=== PATIENT | female | born 1980 | race Caucasian/White ===

== ENCOUNTER 2016-11-10 16:55 | Inpatient (IN) | payer OTHER ==
[2016-11-10] MEDS ORDERED: Ondansetron INJ* 2 MG/ML VIAL IV ONE (17:50)
[2016-11-10] MEDS ORDERED: Morphine INJ* 4 MG/ML 1 ML SYRINGE IV ONE ×2 (17:50→17:53)
[2016-11-10] MEDS ORDERED: Ondansetron INJ* 2 MG/ML VIAL ONE (17:56)
[2016-11-10] MEDS ORDERED: Morphine INJ* 4 MG/ML 1 ML SYRINGE ONE (17:56)
[2016-11-10 18:00] LABS: Hematocrit 52 % (35-47); Hemoglobin 17.4 g/dl (12.0-16.0); Mean Corpuscular HGB Conc 33 g/dl (31-36); Mean Corpuscular Hemoglobin 31 pg (27-31); Mean Corpuscular Volume 93 fL (80-97); Mean Platelet Volume 9 um3 (7.4-10.4); Red Blood Count 5.67 10^6/ul (4.0-5.4); Red Cell Distribution Width 16 % (10.5-15); White Blood Count 16.5 10^3/ul (3.5-10.8)
[2016-11-10] MEDS ORDERED: LORazepam INJ* 2 MG/ML 1 ML VIAL IV PUSH ONE (18:08)
[2016-11-10] MEDS: NS 0.9% 1000 ML* 2,000 ML IV ONE ×2 (18:14→20:08)
[2016-11-10] MEDS ORDERED: HYDROmorphone* 1 MG/ML 1 ML SYR IV SLOW PU ONE ×4 (18:27→20:11)
--- NOTE | 2016-11-10 18:51 | ED ---
Timi Kirkland Benjamin, scribed for Delgado Farr MD on 11/10/16 at 1801 . Abdominal Pain/Female - HPI Summary HPI Summary: 36yo female c/o sudden onset of severe diffuse abdominal pain that started about 1200 today. Pt cannot clearly localize the pain, but pt states there is more pain in the left side than the right. Pain also radiates around into back, and pt has vomited earlier. Pain is aggravated with walking, raising legs, sitting up, and hitting road bumps on the road. Pt gets her MP every 3 months, and her last MP was 2 months ago. Pt is shaking due to pain. Pt is a heavy drinker and a heavy smoker. - History of Current Complaint Chief Complaint: EDAbdPain Stated Complaint: ABD PAIN Time Seen by Provider: 11/10/16 17:40 Hx Obtained From: Patient Hx Last Menstrual Period: 2 months ago Onset/Duration: Sudden Onset, Lasting Hours - couple of hours, Still Present Timing: Constant Severity Initially: Severe Severity Currently: Severe Pain Intensity: 10 Pain Scale Used: 0-10 Numeric Location: Diffuse Radiates: Yes Radiates to: Back Aggravating Factor(s): Movement, Other: - road bumps Alleviating Factor(s): Nothing Associated Signs and Symptoms: Positive: Back Pain, Nausea, Vomiting Allergies/Adverse Reactions: Allergies Allergy/AdvReac Type Severity Reaction Status Date / Time Cephalexin [From Keflex] Allergy Palpitation Verified 03/13/16 19:47 s Ciprofloxacin [From Cipro] Allergy Difficulty Verified 03/13/16 19:47 Breathing/Wheezing Codeine Allergy Hives Verified 03/13/16 19:47 Azithromycin AdvReac Vomiting Verified 03/13/16 19:47 PMH/Surg Hx/FS Hx/Imm Hx Respiratory History: Reports: Other Respiratory Problems/Disorders - pt reports sob-uncertain etiology Denies: Hx Asthma Musculoskeletal History: Reports: Hx Back Problems Sensory History: Denies: Hx Contacts or Glasses Opthamlomology History: Denies: Hx Contacts or Glasses Neurological History: Reports: Hx Headaches Psychiatric History: Denies: Hx Eating Disorder, Hx of Violent Episodes Against Others Infectious Disease History: No Infectious Disease History: Denies: Traveled Outside the [place] in Last 30 Days - Family History Known Family History: Positive: Other - cervical CA, brain tumor - Social History Occupation: Employed Full-time Lives: With Family Alcohol Use: Weekly Substance Use Type: Reports: None Smoking Status (MU): Heavy Every Day Tobacco Smoker Type: Cigarettes Review of Systems Constitutional: Negative Eyes: Negative ENT: Negative Cardiovascular: Negative Respiratory: Negative Positive: Abdominal Pain - diffuse, Vomiting, Nausea. Negative: Diarrhea Genitourinary: Negative Positive: Myalgia - back pain Skin: Negative Neurological: Negative Psychological: Normal All Other Systems Reviewed And Are Negative: Yes Physical Exam - Summary Physical Exam Summary: The patient is well-nourished in milddistress and in no acute pain. The skin is warm and dry and skin color reflects adequate perfusion. HEENT: The head is normocephalic and atraumatic. The pupils are equal and reactive. The conjunctivae are clear and without drainage. Nares are patent and without drainage. Mouth reveals moist mucous membranes and the throat is without erythema and exudate. The external ears are intact. The ear canals are patent and without drainage. Neck is supple with full range of motion and non-tender. There are no carotid bruits. There is no neck vein distension. Respiratory: Chest is non-tender. Lungs are clear to auscultation and breath sounds are symmetrical and equal. Cardiovascular: Tachycardic heart rate. There is no murmur or rub auscultated. There is no peripheral edema and pulses are symmetrical and equal. Abdomen: The abdomen is soft. There are normal bowel sounds heard in all four quadrants and there is no organomegaly palpated. Tender to percussion in back bilaterally. Marked epigastric pain and RUQ pain. No tenderness over the McBurneys point. No guarding, no rebound. Extreme pain when flexing pts knees. Musculoskeletal: There is no back pain noted. Extremities are non-tender with full range of motion. There is good capillary refill. There is no peripheral edema or calf tenderness elicited. Neurological: Patient is alert and oriented to person, place and time. The patient has symmetrical motor strength in all four extremities. Cranial nerves are grossly intact. Deep tendon reflexes are symmetrical and equal in all four extremities. Psychiatric: The patient has an appropriate affect and does not exhibit any depression. Pt is really anxious. Triage Information Reviewed: Yes Vital Signs On Initial Exam: Initial Vitals Temp Pulse Resp BP Pulse Ox 96.4 F 124 20 137/113 99 11/10/16 16:58 11/10/16 16:58 11/10/16 16:58 11/10/16 16:58 11/10/16 16:58 Vital Signs Reviewed: Yes - [place] Coma Scale Coma Scale Total: 15 Diagnostics - Vital Signs Vital Signs Temp Pulse Resp BP Pulse Ox 11/10/16 17:48 102 164/113 97 11/10/16 17:45 99 97 11/10/16 17:02 97.0 F 125 24 137/113 100 11/10/16 16:58 96.4 F 124 20 137/113 99 - Laboratory Lab Results: Lab Results 11/10/16 Range/Units 17:50 WBC 16.5 H (3.5-10.8) 10^3/ul RBC 5.67 H (4.0-5.4) 10^6/ul Hgb 17.4 H (12.0-16.0) g/dl Hct 52 H (35-47) % MCV 93 (80-97) fL MCH 31 (27-31) pg MCHC 33 (31-36) g/dl RDW 16 H (10.5-15) % Plt Count 201 (150-450) 10^3/ul MPV 9 (7.4-10.4) um3 Neut % (Auto) 77.2 (38-83) % Lymph % (Auto) 14.4 L (25-47) % [place] % (Auto) 7.0 (1-9) % Eos % (Auto) 0.7 (0-6) % Baso % (Auto) 0.7 (0-2) % Absolute Neuts (auto) 12.7 H (1.5-7.7) 10^3/ul Absolute Lymphs (auto) 2.4 (1.0-4.8) 10^3/ul Absolute Monos (auto) 1.2 H (0-0.8) 10^3/ul Absolute Eos (auto) 0.1 (0-0.6) 10^3/ul Absolute Basos (auto) 0.1 (0-0.2) 10^3/ul Absolute Nucleated RBC 0.03 10^3/ul Nucleated RBC % 0.2 Result Diagrams: 11/10/16 17:50 Lab Statement: Any lab studies that have been ordered have been reviewed, and results considered in the medical decision making process. Abdominal Pain Fem Course/Dx - Course Course Of Treatment: Pt is signed out to Dr. Varma. Pending for CT abd/pelv W/ O and Abdominal US results. - Diagnoses Differential Diagnosis: Positive: Appendicitis, Bowel Obstruction, Gall Bladder Disease, Pancreatitis, Urinary Tract Infection Provider Diagnoses: Abdominal pain - Provider Notifications Discussed Care Of Patient With: Dr. Varma (Emergency) @7000. - Sign out. Discharge - Discharge Plan Condition: Stable Disposition: OTHER Discharge Disposition Comment: pending imaging results The documentation as recorded by the Timi cruz Benjamin accurately reflects the service I personally performed and the decisions made by , Delgado Farr MD.
--- NOTE | 2016-11-10 19:03 | RAD ---
. INDICATION: Right upper quadrant pain. CT of the abdomen and pelvis was performed without oral or IV contrast administration. The lung bases demonstrate no pleural fluid, nodules or masses. Heart is of normal size without evidence of pericardial effusion. The liver is enlarged in size. It is diffusely decreased in density consistent with hepatic steatosis. No focal lesions or intrahepatic duct dilatation is noted. The spleen is normal in size. The gallbladder demonstrates no calcified gallstones, pericholecystic fluid or wall thickening. The common duct is not dilated. The pancreas demonstrates peripancreatic fluid and infiltration of fat with enlargement of the pancreatic head. Findings are consistent with pancreatitis. Fluid tracks along the duodenum and right anterior paracolic gutter. Correlation with laboratory values may be helpful. No adrenal lesions are noted. The kidneys demonstrate no hydronephrosis in either kidney. No retroperitoneal lymphadenopathy is noted. No dilated loops of bowel are noted. CT of the pelvis demonstrates uterus and ovaries to be unremarkable. Urinary bladder is unremarkable. The appendix is visualized and appears normal. No hernias are noted. IMPRESSION: FINDINGS CONSISTENT WITH HEPATIC STEATOSIS. ENLARGEMENT OF THE PANCREATIC HEAD WITH PERIPANCREATIC FLUID NOTED CONSISTENT WITH PANCREATITIS. CORRELATION WITH LABORATORY VALUES MAY BE HELPFUL. NO HERNIAS ARE NOTED.
[2016-11-10 19:06] LABS: ALT 24 U/L (7-52); AST 52 U/L (13-39); Albumin 4.1 g/dL (3.2-5.2); Alkaline Phosphatase 109 U/L (34-104); Amylase 114 U/L (29-103); Anion Gap 16 mmol/L (2-11); BUN/Creatinine Ratio 12.5 (8-20); Blood Urea Nitrogen 10 mg/dL (6-24); C Reactive Protein 8.68 mg/L (< 5.00); CO2 Carbon Dioxide 23 mmol/L (22-32); Calcium 10.3 mg/dL (8.6-10.3); Chloride 101 mmol/L (101-111); EGFR Non-African American 81.6 (>60); Globulin 3.4 g/dL (2-4); Glucose 108 mg/dL (70-100); Lipase 536 U/L (11.0-82.0); Potassium 4.1 mmol/L (3.5-5.0); Sodium 140 mmol/L (133-145); Total Protein 7.5 g/dL (6.4-8.9)
--- NOTE | 2016-11-10 19:15 | RAD ---
Indication: Right upper quadrant pain, cholelithiasis. Real-time sonography of the right upper quadrant was performed. The liver is normal in size. No focal lesions or intrahepatic duct dilatation is noted. The gallbladder demonstrates no gallstones, pericholecystic fluid or wall thickening. The common duct measures 2 mm. The right kidney measures 8.9 x 3.8 x 3.7 cm. No hydronephrosis is noted. The visualized pancreas is unremarkable. The proximal aorta shows no evidence of aneurysmal dilatation. Inferior vena cava is unremarkable IMPRESSION: No evidence of cholelithiasis or biliary duct dilatation is noted.
[2016-11-10] MEDS ORDERED: HYDROmorphone* 1 MG/ML 1 ML SYR ONE (19:29)
[2016-11-10] MEDS ORDERED: PROCHLORPERAZINE INJ 5 MG/ML 2 ML VIAL IV PRN (20:02)
[2016-11-10] MEDS ORDERED: Thiamine IV* 100 MG, Folic Acid IV* 1 MG, Multiple Vitamin IV ADULT* 10 ML in NS 0.9% 1... IV ONE (20:02)
[2016-11-10] MEDS: NS 0.9% 1000 ML* 3,000 ML IV ONE ×2 (20:09→20:10)
[2016-11-10] MEDS ORDERED: Albuterol 2.5 MG/3 ML NEB.SOL* (0.083%) INH PRN (20:12)
[2016-11-10] MEDS ORDERED: hydrALAZINE IV* 20 MG/ML VIAL IV SLOW PU PRN (20:14)
[2016-11-10 20:29] LABS: Alcohol < 10 mg/dL (<10)
[2016-11-10] MEDS: HYDROmorphone* 2 MG/ML 1 ML SYR IV SLOW PU PRN (21:23)
[2016-11-10] MEDS: LORazepam INJ* 2 MG/ML 1 ML VIAL IV SCH (21:36)
--- NOTE | 2016-11-10 22:16 | HP ---
HISTORY AND PHYSICAL: DATE OF ADMISSION: 11/10/16 PRIMARY CARE PROVIDER: None. ATTENDING PHYSICIAN WHILE IN THE HOSPITAL: Dr. Raul Sheth* (report dictated by Jarod Duarte NP). CHIEF COMPLAINT: Abdominal pain. HISTORY OF PRESENT ILLNESS: Ms. Carlton is a 36-year-old female patient. She has a history of asthma and chronic back pain. She comes in today stating that throughout the weekend, she was drinking fair amount of alcohol each day. She said yesterday she admitted to drinking one mixed cocktail and then another narcisa. She woke up today with abdominal discomfort in the epigastric area. This causes a burning, sharp, stabbing pain radiating into her back. It got progressively worse throughout the day associated with nausea and vomiting, but no fevers, diarrhea. No chills with it. She says the pain gets worse now when she takes a deep breath. She is concerned because the pain felt different than her chronic back pain. She does state that she used to be on chronic pain medications for chronic back pain, but she has no longer been on these. She actually was on a rehab program for this. Her significant other does state that she just drinks on a regular basis routinely. The patient came in today because the pain was not getting any better. She was concerned because of the abdominal discomfort. She was evaluated and ultimately found to have pancreatitis. She denies having any chest pain, no shortness of breath, again no fevers or chills. PAST MEDICAL HISTORY: Significant for: 1. Back pain. 2. Asthma. PAST SURGICAL HISTORY: Denied. HOME MEDICATIONS: Again, she says that she is currently not on any home medications, she denies. ALLERGIES TO MEDICATIONS: Include KEFLEX, CIPRO, CODEINE, and AZITHROMYCIN. FAMILY HISTORY: Mother has a history of breast cancer and brain tumor. Father' s history is unknown. SOCIAL HISTORY: She does smoke about a pack a day. She has been smoking since she was 13 years of age. She denies any recreational drug abuse. She does state that she drinks almost on a daily basis at times. REVIEW OF SYSTEMS: There is no documented fever. She denied having any significant weight change. There was no double vision. No ear discharge. She denies having any rhinorrhea, no sore throat. No thyroid enlargement. Denies having any chest pain. There is no orthopnea. No nocturnal dyspnea. There is abdominal pain from my HPI. There was nausea, vomiting. No dysuria, no frequency. No seizure. No loss of consciousness. No pruritus. No skin ulceration. Review of 14 systems completed, all others negative. PHYSICAL EXAMINATION GENERAL: At this time, Ms. Carlton is a 36-year-old female patient. She does not appear to be in any acute distress. She is sitting in the ER stretcher. VITAL SIGNS: Blood pressure 154/103 with a pulse of 102, respirations 18, O2 sat 97%, temperature 97.0. HEENT: Head is atraumatic, normocephalic. Eyes: EOMs are intact. Sclerae anicteric. Throat: Oral mucosa appeared to be dry. No oropharyngeal erythema. NECK: Supple. LUNGS: Clear to auscultation bilaterally. No wheezes, rales or rhonchi. HEART: Sounds S1, S2. Regular rate and rhythm. She is tachycardic. ABDOMEN: Soft, flat. There was tenderness in the epigastric area. Bowel sounds present. EXTREMITIES: Pulses 2+ throughout. She is able to move all 4 extremities with 5/5 strength. NEUROLOGIC: The patient is awake, alert, oriented x3. Tongue midline. [employer] Vice President were equal. No gross focal deficits. SKIN: Intact. DIAGNOSTIC STUDIES/LABORATORY DATA: Labs today revealed WBC of 16.5, RBC of 5.67, hemoglobin 17.4, hematocrit of 52, platelet count 201. Sodium was 140, potassium 4.1, chloride of 101, bicarb 23, BUN 10, creatinine 0.80, glucose 108 , lactic 1.9, calcium 10.3, total bili 0.7. AST 52, ALT 24, alk phos 109. CRP 8.6, albumin 4.1, amylase 114, lipase 536. Beta HCG 0.73. She had an abdominal pelvis ultrasound, which revealed no evidence of cholelithiasis or biliary ductal dilatation. Abdominal pelvis CT scan obtained showed signs significant with hepatic steatosis, enlargement of the pancreatic head with peripancreatic fluid noted consistent with pancreatitis. Correlation with laboratory values will be helpful. No hernias were noted. Old medical records reviewed. ASSESSMENT AND PLAN: Ms. Carlton is a 36-year-old female patient coming into the ER today with complaints of abdominal discomfort, found to have pancreatitis. She will be admitted under inpatient status for: 1. Pancreatitis. I suspect the etiology of this is probably from alcoholic pancreatitis. She did state that she was drinking throughout the weekend and she did drink yesterday. My plan at this point is to go ahead and keep her n.p.o. Except ice chips. I will go ahead and put her on Dilaudid for pain control. May need to consider higher doses because of her history of narcotic use in the past. We will hydrate her aggressively. We will give her a total of 4 L of fluid upfront. She got 1 here in the ER, we will give her 3 more. I have ordered fluids at 150 an hour thereafter. She will be n.p.o. and I have ordered Dilaudid, Zofran and Compazine. 2. ETOH abuse. At this point, I did order a banana bag. In addition to this, I also ordered a WAM protocol. 3. Elevated blood pressure, could be related to pain, but I did order p.r.n. hydralazine for diastolic greater than 110 or systolic greater than 180. 4. DVT prophylaxis. She is a lower risk. I will place her on SCDs. 5. Code status. Full code. 6. Fluids, electrolytes, nutrition. She will be n.p.o. with ice chips and fluids as previously described. TIME SPENT: Time spent on the admission was 60 minutes, greater than half time spent [id number] with the patient obtaining my history and physical, other half time was spent going over the plan of care with the patient and implementing the plan of care. I did discuss the plan of care with my attending Dr. Sheth; he is in agreement. JAROD DUARTE, VIMAL [id number]/[facility] #: [id number] LILI
[2016-11-10 22:30] LABS: Urine Bacteria 1+ (Absent); Urine Bilirubin Negative (Negative); Urine Glucose Negative (Negative); Urine Nitrite Positive (Negative)
[2016-11-10] MEDS: Heparin VIAL(*) 5000 UNITS/ML VIAL (FIVE THOUSAND) SUBCUT SCH (22:56)
[2016-11-11] MEDS: Ondansetron INJ* 2 MG/ML VIAL IV PRN ×2 (00:33→07:52)
[2016-11-11] MEDS: HYDROmorphone* 2 MG/ML 1 ML SYR IV SLOW PU PRN ×9 (00:33→21:20)
[2016-11-11 05:18] LABS: Hematocrit 44 % (35-47); Hemoglobin 14.1 g/dl (12.0-16.0); Mean Corpuscular HGB Conc 32 g/dl (31-36); Mean Corpuscular Hemoglobin 31 pg (27-31); Mean Corpuscular Volume 94 fL (80-97); Mean Platelet Volume 9 um3 (7.4-10.4); Red Blood Count 4.63 10^6/ul (4.0-5.4); Red Cell Distribution Width 16 % (10.5-15); White Blood Count 11.7 10^3/ul (3.5-10.8)
[2016-11-11 05:45] LABS: BUN/Creatinine Ratio 14.5 (8-20); Calcium 7.6 mg/dL (8.6-10.3); EGFR African American 140.9 (>60); EGFR Non-African American 109.5 (>60); Globulin 2.4 g/dL (2-4); Potassium 4.1 mmol/L (3.5-5.0); Total Bilirubin 0.7 mg/dL (0.2-1.0); Total Protein 5.4 g/dL (6.4-8.9)
[2016-11-11] MEDS: Heparin VIAL(*) 5000 UNITS/ML VIAL (FIVE THOUSAND) SUBCUT SCH ×3 (06:02→22:40)
[2016-11-11] MEDS: LORazepam INJ* 2 MG/ML 1 ML VIAL IV SCH ×8 (07:52→23:57)
[2016-11-11] MEDS: NS 0.9% 1000 ML* 1,000 ML IV SCH ×2 (10:50→22:42)
[2016-11-11] MEDS ORDERED: Nicotine Inhaler* 10 MG AMP INH PRN (13:27)
[2016-11-11] MEDS ORDERED: Mouth Piece, Nicotine* 1 EACH CARTRIDGE ONE (13:37)
--- NOTE | 2016-11-11 13:41 | PN ---
Subjective Date of Service: 11/11/16 Interval History: C/O abdominal pain. Objective Active Medications: Albuterol (Ventolin 2.5 Mg/3 Ml Neb.Apple*) 2.5 mg INH Q2H PRN PRN Reason: SOB/WHEEZING Heparin Sodium (Porcine) (Heparin Vial(*)) 5,000 units SUBCUT Q8HR [facility] Last Admin: 11/11/16 06:02 Dose: 5,000 units Hydromorphone HCl (Dilaudid Iv*) 2 mg IV SLOW PU Q2H PRN PRN Reason: PAIN Sodium Chloride (Ns 0.9% 1000 Ml*) 1,000 mls @ 150 mls/hr IV PER RATE [facility] Last Admin: 11/11/16 10:50 Dose: 150 mls/hr Lorazepam (Ativan Inj*) 0 mg IV .PER WAM SCORE [facility] PRN Reason: Protocol Last Admin: 11/11/16 11:42 Dose: 1.5 mg Nicotine (Nicotine Inhaler*) 10 mg INH Q2H PRN PRN Reason: CRAVING Nicotine (Nicotine Patch 14 Mg/24 Hr*) 1 patch TRANSDERM Q24HR [facility] Ondansetron HCl (Zofran Inj*) 4 mg IV Q6H PRN PRN Reason: NAUSEA Last Admin: 11/11/16 07:52 Dose: 4 mg Pharmacy Profile Note (Nicotine Patch Removal Note*) 1 note PATCH OFF 2100 [facility] Prochlorperazine Edisylate (Compazine Inj*) 5 mg IV Q6H PRN PRN Reason: NAUSEA/VOMITING Vital Signs 11/10/16 11/10/16 11/10/16 20:03 20:10 20:15 Temperature Pulse Rate 101 95 Respiratory 20 Rate Blood Pressure (mmHg) O2 Sat by Pulse 98 94 Oximetry 11/10/16 11/10/16 11/10/16 20:23 20:30 21:00 Temperature 97.5 F Pulse Rate 31 111 Respiratory 20 Rate Blood Pressure 155/103 152/98 153/106 (mmHg) O2 Sat by Pulse 89 100 Oximetry 11/10/16 11/10/16 11/10/16 21:23 21:36 22:23 Temperature Pulse Rate Respiratory 20 20 20 Rate Blood Pressure (mmHg) O2 Sat by Pulse Oximetry 11/10/16 11/10/16 11/10/16 22:36 23:23 23:26 Temperature 97.5 F 98.3 F Pulse Rate 111 96 Respiratory 20 20 20 Rate Blood Pressure 153/106 151/100 (mmHg) O2 Sat by Pulse 100 96 Oximetry 11/11/16 11/11/16 11/11/16 00:33 01:07 01:33 Temperature 98.4 F Pulse Rate 94 Respiratory 16 16 Rate Blood Pressure 157/106 (mmHg) O2 Sat by Pulse 96 Oximetry 11/11/16 11/11/16 11/11/16 03:10 03:13 04:10 Temperature 98.5 F Pulse Rate 101 Respiratory 16 16 16 Rate Blood Pressure 168/109 (mmHg) O2 Sat by Pulse 97 Oximetry 11/11/16 11/11/16 11/11/16 05:05 05:58 06:58 Temperature 98.4 F Pulse Rate 110 Respiratory 16 20 17 Rate Blood Pressure 157/103 (mmHg) O2 Sat by Pulse 97 Oximetry 11/11/16 11/11/16 11/11/16 07:33 07:42 07:52 Temperature 97.9 F Pulse Rate 101 Respiratory 17 16 17 Rate Blood Pressure 155/107 (mmHg) O2 Sat by Pulse 94 Oximetry 11/11/16 11/11/16 11/11/16 08:00 08:43 09:00 Temperature 98.4 F Pulse Rate 101 Respiratory 17 16 16 Rate Blood Pressure 149/100 (mmHg) O2 Sat by Pulse 95 Oximetry 11/11/16 11/11/16 11/11/16 09:28 09:43 11:02 Temperature 98.0 F Pulse Rate 100 107 Respiratory 16 15 16 Rate Blood Pressure 144/86 (mmHg) O2 Sat by Pulse 94 97 Oximetry 11/11/16 11:42 Temperature Pulse Rate Respiratory 18 Rate Blood Pressure (mmHg) O2 Sat by Pulse Oximetry Oxygen Devices in Use Now: None Appearance: Lying on R side in bed, looks very uncomfortable. Eyes: No Scleral Icterus Neck: NL Appearance and Movements; NL JVP, No Thyroid Enlargement, Masses Respiratory: Symmetrical Chest Expansion and Respiratory Effort, Clear to Auscultation, Clear to Percussion Cardiovascular: RRR, No Edema, - - soft systolic murmur LSB Abdominal: - - Very tender, does not permit palpation. No BS,. Extremities: No Edema, No Clubbing, Cyanosis Neurological: NL Sensation - Oriented x3 but not giving rational reasons for her behavior. Result Diagrams: 11/11/16 05:01 11/11/16 05:01 Additional Lab and Data: Lab Results 11/10/16 Range/Units 17:50 WBC 16.5 H (3.5-10.8) 10^3/ul RBC 5.67 H (4.0-5.4) 10^6/ul Hgb 17.4 H (12.0-16.0) g/dl Hct 52 H (35-47) % MCV 93 (80-97) fL MCH 31 (27-31) pg MCHC 33 (31-36) g/dl RDW 16 H (10.5-15) % Plt Count 201 (150-450) 10^3/ul MPV 9 (7.4-10.4) um3 Neut % (Auto) 77.2 (38-83) % Lymph % (Auto) 14.4 L (25-47) % [place] % (Auto) 7.0 (1-9) % Eos % (Auto) 0.7 (0-6) % Baso % (Auto) 0.7 (0-2) % Absolute Neuts (auto) 12.7 H (1.5-7.7) 10^3/ul Absolute Lymphs (auto) 2.4 (1.0-4.8) 10^3/ul Absolute Monos (auto) 1.2 H (0-0.8) 10^3/ul Absolute Eos (auto) 0.1 (0-0.6) 10^3/ul Absolute Basos (auto) 0.1 (0-0.2) 10^3/ul Absolute Nucleated RBC 0.03 10^3/ul Nucleated RBC % 0.2 Assess/Plan/Problems-Billing Assessment: - Patient Problems (1) Acute pancreatitis Current Visit: Yes Status: Acute Code(s): K85.90 - ACUTE PANCREATITIS WITHOUT NECROSIS OR INFECTION, UNSP SNOMED Code(s): 360306529 Comment: Lipase and amylase increased today. No IV dye on first CT scan, will repeat with IV dye to see if necrosis present. Note Ca++ decreased to 7.6. NPO, IV fluids, analgesics. (2) Tobacco abuse Current Visit: Yes Status: Acute Code(s): Z72.0 - TOBACCO USE SNOMED Code( s): 743902943 Comment: Both nicotine patch and inhaler ordered. Pt not able to process smoking cessation counseling at this time. (3) Substance abuse Current Visit: Yes Status: Acute Code(s): F19.10 - OTHER PSYCHOACTIVE SUBSTANCE ABUSE, UNCOMPLICATED SNOMED Code(s): 94232139 Comment: Patient was in rehab for opiate abuse. Alcohol hx not clear but significant possibility she is an alcoholic also. She may be having alcohol withdrawal sx's now, possibly severe. (4) Impaired judgment Current Visit: Yes Status: Acute Code(s): VJW2259 - SNOMED Code(s): 50077914 Comment: Patient pulled out her IV on 11/11, was found by the front entrance smoking. She told me she wanted to leave because no-one waas doing anything to help her. She clearly cannot reason adequately to make medical decisions at this time.
[2016-11-11] MEDS: Nicotine PATCH 14 MG/24 HR* PATCH TRANSDERM SCH (13:46)
--- NOTE | 2016-11-11 13:59 | PN ---
Progress Note - Progress Note Note: Time spent on patient care 45 minutes.
[2016-11-11] MEDS ORDERED: Iohexol 300* (CONTRAST) 10 ML SDV IV ONE (15:16)
--- NOTE | 2016-11-11 15:57 | RAD ---
Indication: Evaluate for necrotizing pancreatitis. Contrast: Administered 60.0 ml of OMNIPAQUE 300 mg/ml. CT of the abdomen and pelvis was performed after oral and IV contrast administration. Coronal and sagittal reconstructed images were obtained. Comparison is made with previous exam dated November 10, 2016. The lung bases demonstrate no pleural fluid, nodules or masses. Heart is of normal size without evidence of pericardial effusion. The liver is normal in size. There are no focal lesions or intrahepatic duct dilatation noted. The spleen is normal in size. A small amount of ascites is noted which is increased since previous exam. The gallbladder demonstrates no calcified gallstones or pericholecystic fluid. The pancreas demonstrates normal enhancement throughout with no evidence of necrotizing pancreatitis. There may be some fluid surrounding the pancreas especially at the pancreatic head. Fluid is noted along the paracolic gutters bilaterally. There is fluid along posterior to the body and tail of the pancreas as well as inferior to the body of the pancreas. This has increased since previous examination. Small bowel demonstrates no abnormal dilatation. The colon is filled with stool. CT of the pelvis demonstrates a moderate degree of free fluid in the pelvis which is increased since previous examination. The urinary bladder is unremarkable. No hernias are noted. The visualized bony structures are otherwise unremarkable. IMPRESSION: THERE IS NO EVIDENCE OF NONENHANCEMENT OF THE PANCREAS SUGGESTIVE OF NECROTIZING PANCREATITIS. PERIPANCREATIC FLUID APPEARS TO BE INCREASING WITH INCREASED AMOUNT OF ASCITES IN THE PELVIS AND IN THE PERIHEPATIC REGIONS WELL INFERIOR TO THE BODY OF THE PANCREAS.
[2016-11-11] MEDS ORDERED: LORazepam INJ* 2 MG/ML 1 ML VIAL ONE (17:30)
[2016-11-11] MEDS ORDERED: Haloperidol INJ IV/IM* 5 MG/ML AMP IV SLOW PU PRN (19:51)
[2016-11-11] MEDS ORDERED: Haloperidol INJ IV/IM* 5 MG/ML AMP ONE (19:55)
[2016-11-11] MEDS ORDERED: Ziprasidone IM INJ* 20 MG/ML VIAL IM ONE (20:15)
[2016-11-11] MEDS: Nicotine Patch Removal NOTE PATCH OFF SCH (21:34)
[2016-11-12] MEDS: LORazepam INJ* 2 MG/ML 1 ML VIAL IV SCH ×8 (01:51→22:42)
[2016-11-12] MEDS: HYDROmorphone* 2 MG/ML 1 ML SYR IV SLOW PU PRN ×7 (01:53→21:22)
[2016-11-12] MEDS: Ziprasidone IM INJ* 20 MG/ML VIAL IM PRN ×3 (03:24→22:01)
[2016-11-12] MEDS: NS 0.9% 1000 ML* 1,000 ML IV SCH (05:14)
[2016-11-12 06:13] LABS: Hematocrit 47 % (35-47); Mean Corpuscular HGB Conc 32 g/dl (31-36); Mean Corpuscular Hemoglobin 31 pg (27-31); Mean Corpuscular Volume 96 fL (80-97); Mean Platelet Volume 10 um3 (7.4-10.4); Red Blood Count 4.93 10^6/ul (4.0-5.4); Red Cell Distribution Width 15 % (10.5-15); White Blood Count 23.9 10^3/ul (3.5-10.8)
[2016-11-12 06:14] LABS: Add Diff/Slide Review? Slide Review Added; Comments Flag Yes
[2016-11-12 06:26] LABS: Albumin 2.9 g/dL (3.2-5.2); BUN/Creatinine Ratio 7.6 (8-20); Calcium 7.5 mg/dL (8.6-10.3); EGFR African American 131.1 (>60); EGFR Non-African American 101.9 (>60); Globulin 2.6 g/dL (2-4); Potassium 3.4 mmol/L (3.5-5.0); Total Bilirubin 0.6 mg/dL (0.2-1.0); Total Protein 5.5 g/dL (6.4-8.9)
[2016-11-12] MEDS: Heparin VIAL(*) 5000 UNITS/ML VIAL (FIVE THOUSAND) SUBCUT SCH ×3 (06:35→23:04)
[2016-11-12] MEDS ORDERED: Piperac/Tazob 3.375 gm in NS* 3.375 GM/100 ML BAG IVPB SCH (10:00)
[2016-11-12] MEDS: Nicotine PATCH 14 MG/24 HR* PATCH TRANSDERM SCH (10:05)
[2016-11-12] MEDS ORDERED: NS 0.9% 1000 ML* 1,000 ML IV SCH (10:13)
[2016-11-12] MEDS ORDERED: Piperac/Tazob 3.375 gm in NS* 3.375 GM/100 ML BAG IVPB ONE (11:30)
[2016-11-12] MEDS: Thiamine IV* 100 MG, Folic Acid IV* 1 MG, Multiple Vitamin IV ADULT* 10 ML in NS 0.9% 1... IV SCH (11:42)
--- NOTE | 2016-11-12 12:21 | PN ---
Subjective Date of Service: 11/12/16 Interval History: Patient poorly responsive. She received lorazepam 3 mg IV at 10:04 AM today, ziprasidone 20 mg IM at 20:11 last evening. Objective Active Medications: Albuterol (Ventolin 2.5 Mg/3 Ml Neb.Apple*) 2.5 mg INH Q2H PRN PRN Reason: SOB/WHEEZING Heparin Sodium (Porcine) (Heparin Vial(*)) 5,000 units SUBCUT Q8HR [facility] Last Admin: 11/12/16 06:35 Dose: 5,000 units Hydromorphone HCl (Dilaudid Iv*) 2 mg IV SLOW PU Q2H PRN PRN Reason: PAIN Last Admin: 11/12/16 09:59 Dose: 2 mg Thiamine HCl 100 mg/ Folic Acid 1 mg/ Multivitamins 10 ml / Sodium Chloride 1, 011.2 mls @ 100 mls/hr IV DAILY [facility] PRN Reason: As Directed Last Admin: 11/12/16 11:42 Dose: 100 mls/hr Sodium Chloride (Ns 0.9% 1000 Ml*) 1,000 mls @ 100 mls/hr IV PER RATE [facility] Piperacillin Sod/Tazobactam Sod (Zosyn 3.375 Gm In Ns Premix*) 3.375 gm in 100 mls @ 200 mls/hr IVPB Q6HR [facility] Lorazepam (Ativan Inj*) 0 mg IV .PER WAM SCORE [facility] PRN Reason: Protocol Last Admin: 11/12/16 10:04 Dose: 3 mg Nicotine (Nicotine Inhaler*) 10 mg INH Q2H PRN PRN Reason: CRAVING Last Admin: 11/11/16 13:46 Dose: 10 mg Nicotine (Nicotine Patch 14 Mg/24 Hr*) 1 patch TRANSDERM Q24HR [facility] Last Admin: 11/12/16 10:05 Dose: 1 patch Ondansetron HCl (Zofran Inj*) 4 mg IV Q6H PRN PRN Reason: NAUSEA Last Admin: 11/11/16 07:52 Dose: 4 mg Pharmacy Profile Note (Nicotine Patch Removal Note*) 1 note PATCH OFF 2100 [facility] Last Admin: 11/11/16 21:34 Dose: 1 note Prochlorperazine Edisylate (Compazine Inj*) 5 mg IV Q6H PRN PRN Reason: NAUSEA/VOMITING Ziprasidone (Geodon Im Inj*) 10 mg IM Q4H PRN PRN Reason: AGITATION Last Admin: 11/12/16 03:24 Dose: 10 mg Vital Signs 11/11/16 11/11/16 11/11/16 12:42 13:46 13:53 Temperature Pulse Rate 108 Respiratory 18 16 14 Rate Blood Pressure 136/94 (mmHg) O2 Sat by Pulse 96 Oximetry 11/11/16 11/11/16 11/11/16 14:24 14:46 15:14 Temperature 98.1 F Pulse Rate 116 Respiratory 16 16 Rate Blood Pressure 155/106 (mmHg) O2 Sat by Pulse 99 Oximetry 11/11/16 11/11/16 11/11/16 15:27 15:28 16:27 Temperature Pulse Rate Respiratory 16 16 16 Rate Blood Pressure (mmHg) O2 Sat by Pulse Oximetry 11/11/16 11/11/16 11/11/16 17:21 17:35 17:36 Temperature Pulse Rate 121 Respiratory 16 16 Rate Blood Pressure 158/113 (mmHg) O2 Sat by Pulse 98 Oximetry 11/11/16 11/11/16 11/11/16 18:28 19:20 19:33 Temperature Pulse Rate 141 Respiratory 16 16 Rate Blood Pressure 138/112 (mmHg) O2 Sat by Pulse 97 Oximetry 11/11/16 11/11/16 11/11/16 19:39 20:00 21:20 Temperature 98.7 F Pulse Rate 146 Respiratory 16 16 16 Rate Blood Pressure 140/99 (mmHg) O2 Sat by Pulse 97 Oximetry 11/11/16 11/11/16 11/11/16 21:29 23:46 23:49 Temperature Pulse Rate 133 Respiratory 16 16 Rate Blood Pressure 118/82 (mmHg) O2 Sat by Pulse 97 Oximetry 11/11/16 11/12/16 11/12/16 23:57 00:57 01:38 Temperature Pulse Rate 132 Respiratory 16 16 Rate Blood Pressure 130/82 (mmHg) O2 Sat by Pulse 96 Oximetry 11/12/16 11/12/16 11/12/16 01:51 01:53 03:27 Temperature 100.7 F Pulse Rate 149 Respiratory 16 16 16 Rate Blood Pressure 128/78 (mmHg) O2 Sat by Pulse 97 Oximetry 11/12/16 11/12/16 11/12/16 03:29 03:53 05:21 Temperature 101.1 F Pulse Rate 138 Respiratory 16 16 20 Rate Blood Pressure 137/95 (mmHg) O2 Sat by Pulse 93 Oximetry 11/12/16 11/12/16 11/12/16 06:22 08:00 09:18 Temperature Pulse Rate 103 Respiratory 16 20 20 Rate Blood Pressure (mmHg) O2 Sat by Pulse 93 Oximetry 11/12/16 11/12/16 11/12/16 09:59 10:04 11:45 Temperature Pulse Rate 122 Respiratory 18 18 Rate Blood Pressure 126/88 (mmHg) O2 Sat by Pulse Oximetry Oxygen Devices in Use Now: None Appearance: Head partly up in bed. Somnolent, briefly opened her eyes. Eyes: No Scleral Icterus Neck: NL Appearance and Movements; NL JVP, No Thyroid Enlargement, Masses Respiratory: Symmetrical Chest Expansion and Respiratory Effort, Clear to Auscultation, Clear to Percussion Cardiovascular: NL Sounds; No Murmurs; No JVD, No Edema, - - tachycardic Abdominal: - - Some guarding. No BS. Not rigid. Mod tender. Extremities: No Edema, No Clubbing, Cyanosis, - Skin: No Rash or Ulcers, No Nodules or Sclerosis, - Neurological: NL Sensation - Not responding to voice. Result Diagrams: 11/12/16 05:37 11/12/16 05:37 Additional Lab and Data: Lab Results 11/10/16 Range/Units 17:50 WBC 16.5 H (3.5-10.8) 10^3/ul RBC 5.67 H (4.0-5.4) 10^6/ul Hgb 17.4 H (12.0-16.0) g/dl Hct 52 H (35-47) % MCV 93 (80-97) fL MCH 31 (27-31) pg MCHC 33 (31-36) g/dl RDW 16 H (10.5-15) % Plt Count 201 (150-450) 10^3/ul MPV 9 (7.4-10.4) um3 Neut % (Auto) 77.2 (38-83) % Lymph % (Auto) 14.4 L (25-47) % [place] % (Auto) 7.0 (1-9) % Eos % (Auto) 0.7 (0-6) % Baso % (Auto) 0.7 (0-2) % Absolute Neuts (auto) 12.7 H (1.5-7.7) 10^3/ul Absolute Lymphs (auto) 2.4 (1.0-4.8) 10^3/ul Absolute Monos (auto) 1.2 H (0-0.8) 10^3/ul Absolute Eos (auto) 0.1 (0-0.6) 10^3/ul Absolute Basos (auto) 0.1 (0-0.2) 10^3/ul Absolute Nucleated RBC 0.03 10^3/ul Nucleated RBC % 0.2 Microbiology and Other Data: Microbiology 11/10/16 21:45 Urine Culture - Final Urine Escherichia Coli Assess/Plan/Problems-Billing Assessment: - Patient Problems (1) Acute pancreatitis Current Visit: Yes Status: Acute Code(s): K85.90 - ACUTE PANCREATITIS WITHOUT NECROSIS OR INFECTION, UNSP SNOMED Code(s): 408098311 Comment: Lipase decreased to 293 11/12/16. No necrosis seen on CT w/ contrast. Note Ca++ decreased to 7.5 on 11/12/16. NPO, IV fluids, analgesics. (2) Tobacco abuse Current Visit: Yes Status: Acute Code(s): Z72.0 - TOBACCO USE SNOMED Code( s): 089694625 Comment: Both nicotine patch and inhaler ordered. Pt not able to process smoking cessation counseling at this time. (3) Substance abuse Current Visit: Yes Status: Acute Code(s): F19.10 - OTHER PSYCHOACTIVE SUBSTANCE ABUSE, UNCOMPLICATED SNOMED Code(s): 53901730 Comment: Patient was in rehab for opiate abuse. Alcohol hx not clear but significant possibility she is an alcoholic also. She appears to be having severe alcohol withdrawal sx's now. Continue IV lorazepam per protocol. IV thiamine/folat/MV ordered. (4) Impaired judgment Current Visit: Yes Status: Acute Code(s): DRD9727 - SNOMED Code(s): 03582753 Comment: Patient pulled out her IV on 11/11, was found by the front entrance smoking. She told me she wanted to leave because no-one waas doing anything to help her. She clearly cannot reason adequately to make medical decisions at this time.
--- NOTE | 2016-11-12 16:15 | CONSULT ---
Consult Consult: Consultation Note Critical Care Requesting Physician: Dr Finley Reason for consult: Delirium tremens Limitations in history/physical: mental status change, delirium Date of consult: 11/12/2016 HPI: 36y F w/ pmhx significant for alcohol abuse, drug abuse and tobacco use; admitted 11/10 for severe abdominal pain, n/v+. She states last drink 2 days prior to abd pain starting; Mother states she drinks daily unknown how much. She initially presented with a wbc of 16.5. CT abdomen/pelvis demonstrated enlarged pancreatic head with peripancreatic fluid, consistent with pancreatitis. She was admitted and started on pain control with diluadid, antiemetics and sedation as needed. Over the past 24 hours she has become more agitated, restless, not cooperative, some hallucinations possibly, given Ativan 3mg iv and ziprasidone 20mg IM for suspected DTs. She has remained tachycardic, temp of 101.7 at 5am 11/12 and further elevated WBC today to 23k. Urinalysis on does demonstrate +nitrite/LE/wbc/bacteria 1+. She was started on zosyn IV today for unclear source of infection, UTI? Vs DTs as cause of fever. Currently in bed, last ativan 3mg iv given 2pm. She is in mild abd pain, no distress otherwise. not diaphoretic. oriented x3, moves all ext. mild tremors in hands. speaks clearly and cooperative. Noted agitation episodes on floor, locked herself in bathroom, refusing to stay. ROS: denies all except for positives mentioned above. no diarrhea/constip/cp/sob /headche/dizziness/rash. PMHx: ?breathing disorder PSHx: none Family History: ?cervical Ca, brain tumour Social History: Alcohol weekly?, Smoking - daily, Drug use none as per chart; Job+ Allergies: Allergies Allergy/AdvReac Type Severity Reaction Status Date / Time Cephalexin [From Keflex] Allergy Palpitation Verified 03/13/16 19:47 s Ciprofloxacin [From Cipro] Allergy Difficulty Verified 03/13/16 19:47 Breathing/Wheezing Codeine Allergy Hives Verified 03/13/16 19:47 Azithromycin AdvReac Vomiting Verified 03/13/16 19:47 Home Medications: none Tele: sinus tachycardia Vitals: Vital Signs Temp 98.8 F 11/12/16 16:13 Pulse 104 11/12/16 16:13 Resp 14 11/12/16 16:28 BP 127/93 11/12/16 16:13 Pulse Ox 96 11/12/16 16:13 Intake & Output 11/11/16 11/12/16 11/12/16 18:59 06:59 18:59 Intake Total 2148 208 1930 Output Total 300 500 Balance 2428 907 [id number] Weight 111 lb Intake: IV Fluids 2148 208 1930 NS (0.9%) 2148 208 1830 zosyn 100 Oral 0 0 0 Output: Urine 300 500 Other: Estimated Void Large Large # Bowel Movements 0 0 # Voids 2 1 O2/Vent: NC, sat 100%, rr 16-18 Infusions: none Current Medications: Albuterol (Ventolin 2.5 Mg/3 Ml Neb.Apple*) 2.5 mg INH Q2H PRN PRN Reason: SOB/WHEEZING Heparin Sodium (Porcine) (Heparin Vial(*)) 5,000 units SUBCUT Q8HR [facility] Last Admin: 11/12/16 14:03 Dose: 5,000 units Hydromorphone HCl (Dilaudid Iv*) 2 mg IV SLOW PU Q2H PRN PRN Reason: PAIN Last Admin: 11/12/16 15:21 Dose: 2 mg Hydromorphone HCl (Dilaudid Iv*) 1 mg IV SLOW PU Q4H PRN PRN Reason: PAIN Thiamine HCl 100 mg/ Folic Acid 1 mg/ Multivitamins 10 ml / Sodium Chloride 1, 011.2 mls @ 100 mls/hr IV DAILY [facility] PRN Reason: As Directed Last Admin: 11/12/16 11:42 Dose: 100 mls/hr Sodium Chloride (Ns 0.9% 1000 Ml*) 1,000 mls @ 100 mls/hr IV PER RATE [facility] Piperacillin Sod/Tazobactam Sod (Zosyn 3.375 Gm In Ns Premix*) 3.375 gm in 100 mls @ 200 mls/hr IVPB Q6HR [facility] Lorazepam (Ativan Inj*) 0 mg IV .PER WAM SCORE [facility] PRN Reason: Protocol Last Admin: 11/12/16 14:00 Dose: 4 mg Nicotine (Nicotine Inhaler*) 10 mg INH Q2H PRN PRN Reason: CRAVING Last Admin: 11/11/16 13:46 Dose: 10 mg Nicotine (Nicotine Patch 14 Mg/24 Hr*) 1 patch TRANSDERM Q24HR [facility] Last Admin: 11/12/16 10:05 Dose: 1 patch Ondansetron HCl (Zofran Inj*) 4 mg IV Q6H PRN PRN Reason: NAUSEA Last Admin: 11/11/16 07:52 Dose: 4 mg Pharmacy Profile Note (Nicotine Patch Removal Note*) 1 note PATCH OFF 2100 [facility] Last Admin: 11/11/16 21:34 Dose: 1 note Prochlorperazine Edisylate (Compazine Inj*) 5 mg IV Q6H PRN PRN Reason: NAUSEA/VOMITING Ziprasidone (Geodon Im Inj*) 10 mg IM Q4H PRN PRN Reason: AGITATION Last Admin: 11/12/16 12:15 Dose: 10 mg Physical Exam: General: awake, alert, no distress, no diaphoresis Head: normocephalic, atraumatic HEENT: no pallor, no icterus, moist mucous membranes Neck: soft, supple, no jvd, no stridor CVS: tachycardic, normal rhythm, no murmur Resp: bilateral air entry, no rhales, no wheeze, no rhonchi, no acc muscle use Abdomen: soft, diffuse tenderness to deep palpation more epigastric, nondistended, bowel sounds minimal/none Ext: pulses+, warm, no edema Skin: intact, no breakdown, no dryness Neuro: awake, alert, orientedx3, moving all extremities, no gross focal deficit ; mild tremors noted. Labs: 11/10/16 11/10/16 11/10/16 17:50 17:50 17:50 WBC 16.5 H RBC 5.67 H Hgb 17.4 H Hct 52 H MCV 93 MCH 31 MCHC 33 RDW 16 H Plt Count 201 MPV 9 Neut % (Auto) 77.2 Lymph % (Auto) 14.4 L Young % (Auto) 7.0 Eos % (Auto) 0.7 Baso % (Auto) 0.7 Absolute Neuts (auto) 12.7 H Absolute Lymphs (auto) 2.4 Absolute Monos (auto) 1.2 H Absolute Eos (auto) 0.1 Absolute Basos (auto) 0.1 Absolute Nucleated RBC 0.03 Nucleated RBC % 0.2 Sodium 140 Potassium 4.1 Chloride 101 Carbon Dioxide 23 Anion Gap 16 H BUN 10 Creatinine 0.80 Est GFR ( Amer) 105.0 Est GFR (Non-Af Amer) 81.6 BUN/Creatinine Ratio 12.5 Glucose 108 H Lactic Acid 1.9 Calcium 10.3 Total Bilirubin 0.70 AST 52 H ALT 24 Alkaline Phosphatase 109 H C-Reactive Protein 8.68 H Total Protein 7.5 Albumin 4.1 Globulin 3.4 Albumin/Globulin Ratio 1.2 Amylase 114 H Lipase 536 H Beta HCG, Quant 0.73 Urine Color Urine Appearance Urine pH Ur Specific [place] Urine Protein Urine Ketones Urine Blood Urine Nitrate Urine Bilirubin Urine Urobilinogen Ur Leukocyte Esterase Urine WBC (Auto) Urine RBC (Auto) Ur Squamous Epith Cells Urine Bacteria Urine Glucose Urine Ascorbic Acid Serum Alcohol < 10 11/10/16 11/10/16 11/11/16 21:45 22:45 05:01 WBC 11.7 H RBC 4.63 Hgb 14.1 Hct 44 MCV 94 MCH 31 MCHC 32 RDW 16 H Plt Count 137 L MPV 9 Neut % (Auto) 82.3 Lymph % (Auto) 10.2 L Young % (Auto) 6.7 Eos % (Auto) 0.4 Baso % (Auto) 0.4 Absolute Neuts (auto) 9.6 H Absolute Lymphs (auto) 1.2 Absolute Monos (auto) 0.8 Absolute Eos (auto) 0 Absolute Basos (auto) 0 Absolute Nucleated RBC 0.01 Nucleated RBC % 0 Sodium Potassium Chloride Carbon Dioxide Anion Gap BUN Creatinine Est GFR ( Amer) Est GFR (Non-Af Amer) BUN/Creatinine Ratio Glucose Lactic Acid 0.6 Calcium Total Bilirubin AST ALT Alkaline Phosphatase C-Reactive Protein Total Protein Albumin Globulin Albumin/Globulin Ratio Amylase Lipase Beta HCG, Quant Urine Color Yellow Urine Appearance Cloudy Urine pH 8.0 Ur Specific [place] 1.013 Urine Protein Negative Urine Ketones 1+ H Urine Blood Negative Urine Nitrate Positive H Urine Bilirubin Negative Urine Urobilinogen Negative Ur Leukocyte Esterase 3+ H Urine WBC (Auto) 3+(>20/hpf) H Urine RBC (Auto) 2+(6-10/hpf) H Ur Squamous Epith Cells Present H Urine Bacteria 1+ H Urine Glucose Negative Urine Ascorbic Acid * H Serum Alcohol 11/11/16 11/12/16 11/12/16 05:01 05:37 05:37 WBC 23.9 H RBC 4.93 Hgb 15.0 Hct 47 MCV 96 MCH 31 MCHC 32 RDW 15 Plt Count 135 L MPV 10 Neut % (Auto) 80.8 Lymph % (Auto) 11.0 L Young % (Auto) 6.8 Eos % (Auto) 0.9 Baso % (Auto) 0.5 Absolute Neuts (auto) 19.3 H Absolute Lymphs (auto) 2.6 Absolute Monos (auto) 1.6 H Absolute Eos (auto) 0.2 Absolute Basos (auto) 0.1 Absolute Nucleated RBC 0.03 Nucleated RBC % 0.1 Sodium 137 136 Potassium 4.1 3.4 L Chloride 107 106 Carbon Dioxide 23 20 L Anion Gap 7 10 BUN 9 5 L Creatinine 0.62 0.66 Est GFR ( Amer) 140.9 131.1 Est GFR (Non-Af Amer) 109.5 101.9 BUN/Creatinine Ratio 14.5 7.6 L Glucose 90 53 L Lactic Acid Calcium 7.6 L 7.5 L Total Bilirubin 0.70 0.60 AST 33 28 ALT 15 13 Alkaline Phosphatase 73 68 C-Reactive Protein Total Protein 5.4 L 5.5 L Albumin 3.0 L 2.9 L Globulin 2.4 2.6 Albumin/Globulin Ratio 1.3 1.1 Amylase 265 H Lipase 1233 H 293 H Beta HCG, Quant Urine Color Urine Appearance Urine pH Ur Specific [place] Urine Protein Urine Ketones Urine Blood Urine Nitrate Urine Bilirubin Urine Urobilinogen Ur Leukocyte Esterase Urine WBC (Auto) Urine RBC (Auto) Ur Squamous Epith Cells Urine Bacteria Urine Glucose Urine Ascorbic Acid Serum Alcohol Imaging: CT abd/pelvis 11/11 no evidence of nonenhancement of the pancreas suggestive of necrotizing pancreatitis; peripancretic fluid increased and increased ascites+; report reviewed Assessment: 36y F w/ pmhx significant for alcohol abuse and tobacco use; admitted for pancreatitis, now with increasing restlessness, tachycardic suspected of having alcohol withdrawal/DTs. -Acute Alcoholic pancreatitis -Alcohol Withdrawal, suspected early Delirium tremens -UTI -Polysubstance abuse history Plan: Neuro- currently oriented; large drinking history she doesnt state but mother states. cont ativan prn IV as needed for acute agitation, cont ziprasidone IM; start librium PO tid for now. May need precedex if continued agitation. She is also on opiates for pancreatitis and pain control. neurochecks. 1:1 monitoring for preventing self harm. CVS- tachycardic, multiple etiologies- acute pancreatitis vs pain vs volume depletion vs DTs. Cont IVF NS for now. no BB for now. Pain control IV opiates, BDZ for agitation will help. Resp- on NC, no distress, oxygenation intact. Monitor for now ID- WBC 23k with fevers. Blood cx; urine cx + for e.coli 75k. Pancreatitis with repeat CT no necrosis. Multiple sources of fever - pancreatitis vs DTs. No necrosis on imaging. Will keep zosyn for UTI if at all. No change to meropenem yet. GI- acute pancreatitis. Noted rise and then fall in lipase from admission. check in AM for trend. Febrile x1, could be from inflammation vs DTs. Pain control as needed. Repeat CT 11/11 without pancreatic necrosis noted. albumin 2.9 , glucose 53 in AM, BUN 5, Ca 7.5, wbc 23k - [place] +3, Melinda 2 at 48hours; pending LDH level. Already at risk for severe pancreatitis. DTs management with librium/ativan/ziprasidone as needed. Renal- stable Cr, no acidosis; replete K with 40meq po. Noted drop in Calcium which may be due to pancreatitis. Heme- stable hg and plt count. no bleeding noted. on chemical dvt prophylaxis. Endo- monitor FS q4h for 24 hours, PRN d50 or may start d5NS if needed; hypoglycemia noted on AM labs Musculsk- none Wounds- none Nutrition- can start PO diet as tolerated if no abd pain. DVT prophylaxis: heparin sq GI prophylaxis: PPI Central Line: no Arterial Line: no Henson Cathetor: no Disposition: ICU for DTs requiring 1:1 obs, frequent IV sedation and respiratory /hemodyn monitoring Code Status: full code Yuniel To MD Production Support Developer (Electronically Signed)
[2016-11-12] MEDS: HYDROmorphone* 1 MG/ML 1 ML SYR IV SLOW PU PRN (16:28)
[2016-11-12] MEDS ORDERED: Potassium Chlor TAB* 20 MEQ TAB.ER PO ONE (17:29)
[2016-11-12] MEDS: chlordiazePOXIDE CAP* 25 MG PO SCH ×2 (19:22→21:02)
[2016-11-12] MEDS: Piperac/Tazob 3.375 gm in NS* 3.375 GM/100 ML BAG IVPB SCH (20:36)
[2016-11-12] MEDS: Nicotine Patch Removal NOTE PATCH OFF SCH (21:31)
[2016-11-12] MEDS ORDERED: Ziprasidone IM INJ* 20 MG/ML VIAL IM ONE (23:00)
[2016-11-12] MEDS: Dexmedetomidine* 200 MCG in NS 0.9% 50 ML* 48 ML IVPB SCH (23:25)
[2016-11-12] MEDS ORDERED: Dexmedetomidine* 50 ML IVPB SCH (23:45)
[2016-11-13] MEDS: Piperac/Tazob 3.375 gm in NS* 3.375 GM/100 ML BAG IVPB SCH ×4 (00:04→18:28)
[2016-11-13] MEDS: Heparin VIAL(*) 5000 UNITS/ML VIAL (FIVE THOUSAND) SUBCUT SCH ×3 (05:28→22:00)
[2016-11-13] MEDS: Dexmedetomidine* 200 MCG in NS 0.9% 50 ML* 48 ML IVPB SCH (05:28)
[2016-11-13 06:11] LABS: Hematocrit 38 % (35-47); Hemoglobin 12.2 g/dl (12.0-16.0); Mean Corpuscular HGB Conc 32 g/dl (31-36); Mean Corpuscular Hemoglobin 31 pg (27-31); Mean Corpuscular Volume 96 fL (80-97); Mean Platelet Volume 10 um3 (7.4-10.4); Red Blood Count 3.98 10^6/ul (4.0-5.4); Red Cell Distribution Width 15 % (10.5-15); White Blood Count 11.2 10^3/ul (3.5-10.8)
[2016-11-13 06:13] LABS: Add Diff/Slide Review? Slide Review Added; Comments Flag Yes
[2016-11-13 06:23] LABS: Albumin 2.5 g/dL (3.2-5.2); BUN/Creatinine Ratio 7.7 (8-20); Calcium 7.5 mg/dL (8.6-10.3); EGFR African American 172.6 (>60); EGFR Non-African American 134.2 (>60); Globulin 2.5 g/dL (2-4); Potassium 3.4 mmol/L (3.5-5.0); Total Bilirubin 0.6 mg/dL (0.2-1.0)
[2016-11-13] MEDS: HYDROmorphone* 2 MG/ML 1 ML SYR IV SLOW PU PRN ×6 (08:48→22:09)
[2016-11-13] MEDS: chlordiazePOXIDE CAP* 25 MG PO SCH ×2 (08:51→21:41)
[2016-11-13] MEDS: Omeprazole CAP* 20 MG PO SCH (08:51)
--- NOTE | 2016-11-13 09:08 | PN ---
Progress Note - Progress Note Note: Progress Note - Critical Care 24 hour events: -upgraded to ICU for suspected delirium/agitation -overnight had some restless again, tried to pull out lines; started on precedex infusion after being given ziprasidone IM -this morning on precedex 0.3, sleeping but awakens, still complaining of abd pain. was tolerating some PO intake yesterday -no fevers overnight, no n/v. she is cooperative this morning. Tele: sinus tachycardia Vitals: Vital Signs Temp 97.7 F 11/13/16 08:00 Pulse 76 11/13/16 08:53 Resp 22 11/13/16 08:53 BP 125/84 11/13/16 07:00 Pulse Ox 94 11/13/16 08:53 Intake & Output 11/12/16 11/13/16 11/13/16 18:59 06:59 18:59 Intake Total 1930 2207 Output Total 500 300 Balance 1430 1907 Weight 116 lb 6.465 oz Intake: IV Fluids 1930 1575 NS (0.9%) 1830 264 banana bag 1010 zosyn 100 301 Medicated IV 32 Precedex 32 Oral 0 600 Output: Urine 500 300 Other: Estimated Void Large Large # Bowel Movements 0 0 # Voids 1 1 O2/Vent: NC, sat 100%, rr 16-18 Infusions: precedex 0.3 -> 0.1 now Current Medications: Albuterol (Ventolin 2.5 Mg/3 Ml Neb.Apple*) 2.5 mg INH Q2H PRN PRN Reason: SOB/WHEEZING Chlordiazepoxide (Librium Cap*) 25 mg PO TID [facility] Last Admin: 11/13/16 08:51 Dose: 25 mg Heparin Sodium (Porcine) (Heparin Vial(*)) 5,000 units SUBCUT Q8HR JAYLYN Last Admin: 11/13/16 05:28 Dose: 5,000 units Hydromorphone HCl (Dilaudid Iv*) 2 mg IV SLOW PU Q2H PRN PRN Reason: PAIN Last Admin: 11/13/16 08:48 Dose: 2 mg Hydromorphone HCl (Dilaudid Iv*) 1 mg IV SLOW PU Q4H PRN PRN Reason: PAIN Last Admin: 11/12/16 16:28 Dose: 1 mg Thiamine HCl 100 mg/ Folic Acid 1 mg/ Multivitamins 10 ml / Sodium Chloride 1, 011.2 mls @ 100 mls/hr IV DAILY [facility] PRN Reason: As Directed Last Admin: 11/12/16 11:42 Dose: 100 mls/hr Sodium Chloride (Ns 0.9% 1000 Ml*) 1,000 mls @ 100 mls/hr IV PER RATE [facility] Piperacillin Sod/Tazobactam Sod (Zosyn 3.375 Gm In Ns Premix*) 3.375 gm in 100 mls @ 200 mls/hr IVPB Q6HR [facility] Last Admin: 11/13/16 06:31 Dose: 200 mls/hr Dexmedetomidine HCl 200 mcg/ (Sodium Chloride) 50 mls @ 2.51 mls/hr IVPB PER RATE [facility] PRN Reason: 0.2 MCG/KG/HR Last Admin: 11/13/16 05:28 Dose: 2.7 mls/hr Lorazepam (Ativan Inj*) 0 mg IV .PER WAM SCORE [facility] PRN Reason: Protocol Last Admin: 11/12/16 22:42 Dose: 4 mg Nicotine (Nicotine Inhaler*) 10 mg INH Q2H PRN PRN Reason: CRAVING Last Admin: 11/11/16 13:46 Dose: 10 mg Nicotine (Nicotine Patch 14 Mg/24 Hr*) 1 patch TRANSDERM Q24HR [facility] Last Admin: 11/12/16 10:05 Dose: 1 patch Omeprazole (Prilosec Cap*) 20 mg PO 0730 [facility] Last Admin: 11/13/16 08:51 Dose: 20 mg Ondansetron HCl (Zofran Inj*) 4 mg IV Q6H PRN PRN Reason: NAUSEA Last Admin: 11/11/16 07:52 Dose: 4 mg Pharmacy Profile Note (Nicotine Patch Removal Note*) 1 note PATCH OFF 2100 [facility] Last Admin: 11/12/16 21:31 Dose: 1 note Prochlorperazine Edisylate (Compazine Inj*) 5 mg IV Q6H PRN PRN Reason: NAUSEA/VOMITING Ziprasidone (Geodon Im Inj*) 10 mg IM Q4H PRN PRN Reason: AGITATION Last Admin: 11/12/16 12:15 Dose: 10 mg Physical Exam: General: awake, alert, no distress, no diaphoresis; cooperative Head: normocephalic, atraumatic HEENT: no pallor, no icterus, moist mucous membranes Neck: soft, supple, no jvd, no stridor CVS: tachycardic, normal rhythm, no murmur Resp: bilateral air entry, no rhales, no wheeze, no rhonchi, no acc muscle use Abdomen: soft, diffuse tenderness to deep palpation more epigastric and seems unchanged, nondistended, bowel sounds minimal/none; noted she was sleeping fine prior to examination. Ext: pulses+, warm, no edema Skin: intact, no breakdown, no dryness Neuro: awake, alert, orientedx3, moving all extremities, no gross focal deficit ; no tremors noted. Labs: Laboratory Results - last 24 hr 11/12/16 11/12/16 11/13/16 05:37 19:47 01:26 WBC RBC Hgb Hct MCV MCH MCHC RDW Plt Count MPV Neut % (Auto) Lymph % (Auto) [place] % (Auto) Eos % (Auto) Baso % (Auto) Absolute Neuts (auto) Absolute Lymphs (auto) Absolute Monos (auto) Absolute Eos (auto) Absolute Basos (auto) Absolute Nucleated RBC Nucleated RBC % Sodium Potassium Chloride Carbon Dioxide Anion Gap BUN Creatinine Est GFR ( Amer) Est GFR (Non-Af Amer) BUN/Creatinine Ratio Glucose POC Glucose (mg/dL) 103 88 Calcium Total Bilirubin AST ALT Alkaline Phosphatase Lactate Dehydrogenase 164 Total Protein Albumin Globulin Albumin/Globulin Ratio Lipase 11/13/16 11/13/16 11/13/16 05:15 05:15 05:23 WBC 11.2 H RBC 3.98 L Hgb 12.2 Hct 38 MCV 96 MCH 31 MCHC 32 RDW 15 Plt Count 99 L MPV 10 Neut % (Auto) 72.6 Lymph % (Auto) 15.5 L [place] % (Auto) 8.3 Eos % (Auto) 3.3 Baso % (Auto) 0.3 Absolute Neuts (auto) 8.1 H Absolute Lymphs (auto) 1.7 Absolute Monos (auto) 0.9 H Absolute Eos (auto) 0.4 Absolute Basos (auto) 0 Absolute Nucleated RBC 0 Nucleated RBC % 0 Sodium 139 Potassium 3.4 L Chloride 110 Carbon Dioxide 21 L Anion Gap 8 BUN 4 L Creatinine 0.52 Est GFR ( Amer) 172.6 Est GFR (Non-Af Amer) 134.2 BUN/Creatinine Ratio 7.7 L Glucose 64 L POC Glucose (mg/dL) 78 Calcium 7.5 L Total Bilirubin 0.60 AST 24 ALT 10 Alkaline Phosphatase 57 Lactate Dehydrogenase Total Protein 5.0 L Albumin 2.5 L Globulin 2.5 Albumin/Globulin Ratio 1.0 Lipase 95 H Imaging: CT abd/pelvis 11/11 no evidence of nonenhancement of the pancreas suggestive of necrotizing pancreatitis; peripancretic fluid increased and increased ascites+; report reviewed Assessment: 36y F w/ pmhx significant for alcohol abuse and tobacco use; admitted for pancreatitis, now with increasing restlessness, tachycardic suspected of having alcohol withdrawal/DTs. -Acute Alcoholic pancreatitis -Alcohol Withdrawal -UTI -Polysubstance abuse history Plan: Neuro- currently oriented; large drinking history she doesnt state but mother states. cont ativan prn IV as needed for acute agitation, cont ziprasidone IM; started on precedex infusio now, will try to come down. librium 25mg PO tid. Given episodic agitation doesnt all seem like DTs, may be mild withdrawal but also may be underlying psychological state doing this also. I'm not totally convinced of pure Delirium tremens at this time. Will obtain psych eval for her. neurochecks. CVS- tachycardic, multiple etiologies- acute pancreatitis vs pain vs volume depletion vs withdrawal state. Cont IVF NS at 50cc/hr. no BB for now. Pain control IV opiates, BDZ for agitation will help. Resp- on NC, no distress, oxygenation intact. Monitor for now ID- WBC 11k, afebrile. blood cx neg; urine cx + for e.coli 75k. Pancreatitis with repeat CT no necrosis. Multiple sources of fever - pancreatitis vs DTs. No necrosis on imaging. Keep sozyn for atleast 5 days. GI- acute pancreatitis. delcining lipase level. stil some tenderness, tolerating PO liquids yesterday. will continue and advance diet to see how much she can tolerate. LDH normal, bicarn 21, BUN 4, Cr stable. glucose 78 on POC. Pancreatitis improving, not severe. Renal- stable Cr, no acidosis; replete K with 40meq po. Noted drop in Calcium which may be due to pancreatitis. Heme- stable hg. plt count lower today. no bleeding noted. on chemical dvt prophylaxis. Endo- FS monitoring as needed. Musculsk- none Wounds- none Nutrition- PO diet regular DVT prophylaxis: heparin sq GI prophylaxis: PPI Central Line: no Arterial Line: no Henson Cathetor: no Disposition: ICU for agitation, possible alcohol withdrawal in setting of acute pancreatitis. Code Status: full code Yuniel To MD [employer] Investigation Lieutenant (Electronically Signed)
[2016-11-13] MEDS: NS 0.9% 1000 ML* 1,000 ML IV SCH (09:23)
[2016-11-13] MEDS: Thiamine IV* 100 MG, Folic Acid IV* 1 MG, Multiple Vitamin IV ADULT* 10 ML in NS 0.9% 1... IV SCH (09:23)
[2016-11-13] MEDS: Nicotine PATCH 14 MG/24 HR* PATCH TRANSDERM SCH (11:02)
[2016-11-13] MEDS: LORazepam INJ* 2 MG/ML 1 ML VIAL IV SCH ×3 (11:10→21:31)
[2016-11-13] MEDS: HYDROmorphone* 1 MG/ML 1 ML SYR IV SLOW PU PRN (13:48)
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
[2016-11-13] MEDS: Nicotine Patch Removal NOTE PATCH OFF SCH (22:12)
[2016-11-14] MEDS: HYDROmorphone* 2 MG/ML 1 ML SYR IV SLOW PU PRN ×4 (00:22→08:49)
[2016-11-14] MEDS: Piperac/Tazob 3.375 gm in NS* 3.375 GM/100 ML BAG IVPB SCH ×2 (00:23→06:02)
[2016-11-14] MEDS: LORazepam INJ* 2 MG/ML 1 ML VIAL IV SCH ×2 (04:02→07:51)
[2016-11-14] MEDS: Heparin VIAL(*) 5000 UNITS/ML VIAL (FIVE THOUSAND) SUBCUT SCH (06:01)
[2016-11-14] MEDS: NS 0.9% 1000 ML* 1,000 ML IV SCH (06:03)
[2016-11-14] MEDS: Omeprazole CAP* 20 MG PO SCH (07:51)
[2016-11-14] MEDS: QUEtiapine TAB* 25 MG PO SCH (08:48)
[2016-11-14] MEDS: chlordiazePOXIDE CAP* 25 MG PO SCH ×2 (08:48→20:05)
[2016-11-14] MEDS: Nicotine PATCH 14 MG/24 HR* PATCH TRANSDERM SCH (08:48)
--- NOTE | 2016-11-14 08:58 | PN ---
Progress Note - Progress Note Note: Progress Note - Critical Care 24 hour events: -off precedex since yesterday. on seroquel. psych consult reviewed, mixed underlying psychiatric issues likely present , unclear substance abuse history -afebrile, making urine; tolerating PO intake -on less dilaudid now, she states she still has pain but more tolerable now. -this morning confused; thinks she is in a care home. wants to go home. needed ativan this morning and 1 dose dilaudid. Tele: NSR Vitals: Vital Signs Temp 98.5 F 11/14/16 03:44 Pulse 90 11/14/16 07:00 Resp 16 11/14/16 08:49 BP 131/91 11/14/16 07:00 Pulse Ox 96 11/14/16 07:00 Intake & Output 11/13/16 11/14/16 11/14/16 18:59 06:59 18:59 Intake Total 1353 1573 Output Total 850 100 Balance 1353 723 -100 Weight 123 lb 0.287 oz Intake: IV Fluids 527 1193 NS (0.9%) 428 561 banana bag 632 zosyn 99 IVPB 406 200 NS (0.9%) 100 banana bag 406 zosyn 100 Oral 420 180 Output: Urine 850 100 O2/Vent: NC, sat 100%, rr 16-18 Infusions: NS 50cc/hr Current Medications: Albuterol (Ventolin 2.5 Mg/3 Ml Neb.Apple*) 2.5 mg INH Q2H PRN PRN Reason: SOB/WHEEZING Chlordiazepoxide (Librium Cap*) 25 mg PO BID [facility] Last Admin: 11/14/16 08:48 Dose: 25 mg Heparin Sodium (Porcine) (Heparin Vial(*)) 5,000 units SUBCUT Q8HR [facility] Last Admin: 11/14/16 06:01 Dose: 5,000 units Hydromorphone HCl (Dilaudid Iv*) 0.5 mg IV SLOW PU Q4H PRN PRN Reason: PAIN Thiamine HCl 100 mg/ Folic Acid 1 mg/ Multivitamins 10 ml / Sodium Chloride 1, 011.2 mls @ 100 mls/hr IV DAILY [facility] PRN Reason: As Directed Last Admin: 11/13/16 09:23 Dose: 100 mls/hr Piperacillin Sod/Tazobactam Sod (Zosyn 3.375 Gm In Ns Premix*) 3.375 gm in 100 mls @ 200 mls/hr IVPB Q6HR [facility] Last Admin: 11/14/16 06:02 Dose: 200 mls/hr Sodium Chloride (Ns 0.9% 1000 Ml*) 1,000 mls @ 50 mls/hr IV PER RATE [facility] Last Admin: 11/14/16 06:03 Dose: 50 mls/hr Lorazepam (Ativan Inj*) 0 mg IV .PER WAM SCORE [facility] PRN Reason: Protocol Last Admin: 11/14/16 07:51 Dose: 2 mg Nicotine (Nicotine Inhaler*) 10 mg INH Q2H PRN PRN Reason: CRAVING Last Admin: 11/11/16 13:46 Dose: 10 mg Nicotine (Nicotine Patch 14 Mg/24 Hr*) 1 patch TRANSDERM Q24HR [facility] Last Admin: 11/14/16 08:48 Dose: 1 patch Omeprazole (Prilosec Cap*) 20 mg PO 0730 [facility] Last Admin: 11/14/16 07:51 Dose: 20 mg Ondansetron HCl (Zofran Inj*) 4 mg IV Q6H PRN PRN Reason: NAUSEA Last Admin: 11/11/16 07:52 Dose: 4 mg Pharmacy Profile Note (Nicotine Patch Removal Note*) 1 note PATCH OFF 2100 [facility] Last Admin: 11/13/16 22:12 Dose: Not Given Quetiapine Fumarate (Seroquel Tab*) 25 mg PO DAILY [facility] Last Admin: 11/14/16 08:48 Dose: 25 mg Ziprasidone (Geodon Im Inj*) 10 mg IM Q4H PRN PRN Reason: AGITATION Last Admin: 11/12/16 12:15 Dose: 10 mg Physical Exam: General: awake, alert, no distress, no diaphoresis; cooperative; confused at times, not aggressiv but restless. Head: normocephalic, atraumatic HEENT: no pallor, no icterus, moist mucous membranes Neck: soft, supple, no jvd, no stridor CVS: tachycardic, normal rhythm, no murmur Resp: bilateral air entry, no rhales, no wheeze, no rhonchi, no acc muscle use Abdomen: soft, diffuse tenderness to deep palpation more epigastric and seems unchanged, nondistended, bowel sounds minimal/none Ext: pulses+, warm, no edema Skin: intact, no breakdown, no dryness Neuro: awake, alert, oriented to person, moving all extremities, no gross focal deficit; no tremors noted. Labs: pulled out IVs, delayed obtaining labs Imaging: CT abd/pelvis 11/11 no evidence of nonenhancement of the pancreas suggestive of necrotizing pancreatitis; peripancretic fluid increased and increased ascites+; report reviewed Assessment: 36y F w/ pmhx significant for alcohol abuse and tobacco use; admitted for pancreatitis, now with increasing restlessness, tachycardic suspected of having alcohol withdrawal/DTs. -Acute Alcoholic pancreatitis -Alcohol Withdrawal -UTI -Polysubstance abuse history Plan: Neuro- currently oriented to person. confused still and waxes/wanes; large drinking history she doesnt state but mother states. will continue IV ativan, IM geodon. pulled out IV access. seroquel po. psych consult reviewed; i would like another opinion if maybe inpatient eval would be a good idea at this time. Some withdrawal symptoms? underlying psychiatric illness also? CVS- not tachycardic today. d/c IVF, tolerating po intake now. Pain control IV opiates only as needed but less need Resp- on NC, no distress ID- afebrile. blood cx neg; urine cx + for e.coli 75k. Pancreatitis with repeat CT no necrosis. Could d/c antibiotics but will keep for UTI; may likely just cover with ciprofloxacin PO for 3 more days if likely discharge GI- acute pancreatitis, tolerating PO, improved pain. hold pain meds today. still some tenderness but she is tolerating it fine todya. advance diet Renal- stable Cr, no acidosis Heme- stable hg. plt count lower today. no bleeding noted. on chemical dvt prophylaxis. Endo- FS monitoring as needed. Musculsk- none Wounds- none Nutrition- PO diet regular DVT prophylaxis: heparin sq GI prophylaxis: PPI Central Line: no Arterial Line: no Henson Cathetor: no Disposition: improved from pancreatitis stand point, tolering po intake, weaning down pain meds; more psych w/u eval now. can be transferred to medical floor. Code Status: full code Yuniel To MD Cuff Setter Lockstitch (Electronically Signed)
[2016-11-14] MEDS: Ziprasidone IM INJ* 20 MG/ML VIAL IM PRN (10:39)
[2016-11-14 10:45] LABS: Hematocrit 39 % (35-47); Hemoglobin 12.7 g/dl (12.0-16.0); Mean Corpuscular HGB Conc 33 g/dl (31-36); Mean Corpuscular Hemoglobin 31 pg (27-31); Mean Corpuscular Volume 95 fL (80-97); Mean Platelet Volume 10 um3 (7.4-10.4); Red Blood Count 4.11 10^6/ul (4.0-5.4); Red Cell Distribution Width 16 % (10.5-15); White Blood Count 9.5 10^3/ul (3.5-10.8)
[2016-11-14 10:56] LABS: BUN/Creatinine Ratio 6.9 (8-20); Calcium 8.1 mg/dL (8.6-10.3); EGFR African American 152.1 (>60); EGFR Non-African American 118.3 (>60); Globulin 2.9 g/dL (2-4); Potassium 3.3 mmol/L (3.5-5.0); Total Bilirubin 0.6 mg/dL (0.2-1.0); Total Protein 5.9 g/dL (6.4-8.9)
[2016-11-14] MEDS ORDERED: Haloperidol INJ IV/IM* 5 MG/ML AMP ONE (11:10)
[2016-11-14] MEDS ORDERED: Ondansetron ODT TAB* 4 MG G TUBE PRN (13:07)
[2016-11-14] MEDS ORDERED: LORazepam INJ* 2 MG/ML 1 ML VIAL ONE (13:30)
[2016-11-14] MEDS ORDERED: diPHENhydraMINE IV* 50 MG/ML 1 ml VIAL (BENADRYL) ONE (13:30)
--- NOTE | 2016-11-14 13:30 | CONSULT ---
Identification - Patient Identification Reason for Psychiatric Consultation: Incapacitating Symptoms -: Patient is a 36 year old, F admitted on 11/10/16. - MHU Identification Hx Psychiatric Hospitalization: No History - Objective HPI: The patient is seen for psychiatric follow up. For more comprehensive history, please refer to Dr. Isac Arriola's consultation report from yesterday, November 14. The patient is interviewed in ICU room 6, where she is accompanied by her sister, Natali. The patient is clearly distressed by abdominal pain and is cognitively slow, perhaps secondary to pain medication effect versus probable alcohol DTs. At any rate, the patient continues to deny SI or HI. She says that she only drinks one to two alcoholic beverages at a time and she can quit this herself without treatment anytime she wants. Her sister contradicts this, indicating that the family believes Abby is drinking considerably more than this, which would be more consistent with the objective clinical findings of her presentation. The patient admits that she attended a rehab 3-4 years ago at [facility] for both alcohol and opioids. Her sister adds that 3 out the patient's 5 children were born addicted to opioids and she has custody of none of them currently. This seems to spark an argument between the two, and at one point the patient gets out of bed and makes a show of stating she will walk out unless the sister leaves. The patient seems uncomfortable and evasive throughout the interview and does not strike this clinician as a reliable historian. Natali indicates that the patient's mother will be visiting tomorrow and would like to discuss the patient's history with the psychiatric service. Lab Results: Laboratory Tests 11/10/16 11/10/16 11/11/16 21:45 22:45 05:01 WBC 11.7 H RBC 4.63 Hgb 14.1 Hct 44 MCV 94 MCH 31 MCHC 32 RDW 16 H Plt Count 137 L MPV 9 Neut % (Auto) 82.3 Lymph % (Auto) 10.2 L Gilliam % (Auto) 6.7 Eos % (Auto) 0.4 Baso % (Auto) 0.4 Absolute Neuts (auto) 9.6 H Absolute Lymphs (auto) 1.2 Absolute Monos (auto) 0.8 Absolute Eos (auto) 0 Absolute Basos (auto) 0 Absolute Nucleated RBC 0.01 Nucleated RBC % 0 Sodium Potassium Chloride Carbon Dioxide Anion Gap BUN Creatinine Est GFR ( Amer) Est GFR (Non-Af Amer) BUN/Creatinine Ratio Glucose POC Glucose (mg/dL) Lactic Acid 0.6 Calcium Ionized Calcium Total Bilirubin AST ALT Alkaline Phosphatase Lactate Dehydrogenase Total Protein Albumin Globulin Albumin/Globulin Ratio Amylase Lipase Urine Color Yellow Urine Appearance Cloudy Urine pH 8.0 Ur Specific [place] 1.013 Urine Protein Negative Urine Ketones 1+ H Urine Blood Negative Urine Nitrate Positive H Urine Bilirubin Negative Urine Urobilinogen Negative Ur Leukocyte Esterase 3+ H Urine WBC (Auto) 3+(>20/hpf) H Urine RBC (Auto) 2+(6-10/hpf) H Ur Squamous Epith Cells Present H Urine Bacteria 1+ H Urine Glucose Negative Urine Ascorbic Acid * H 11/11/16 11/12/16 11/12/16 05:01 05:37 05:37 WBC 23.9 H RBC 4.93 Hgb 15.0 Hct 47 MCV 96 MCH 31 MCHC 32 RDW 15 Plt Count 135 L MPV 10 Neut % (Auto) 80.8 Lymph % (Auto) 11.0 L Gilliam % (Auto) 6.8 Eos % (Auto) 0.9 Baso % (Auto) 0.5 Absolute Neuts (auto) 19.3 H Absolute Lymphs (auto) 2.6 Absolute Monos (auto) 1.6 H Absolute Eos (auto) 0.2 Absolute Basos (auto) 0.1 Absolute Nucleated RBC 0.03 Nucleated RBC % 0.1 Sodium 137 136 Potassium 4.1 3.4 L Chloride 107 106 Carbon Dioxide 23 20 L Anion Gap 7 10 BUN 9 5 L Creatinine 0.62 0.66 Est GFR ( Amer) 140.9 131.1 Est GFR (Non-Af Amer) 109.5 101.9 BUN/Creatinine Ratio 14.5 7.6 L Glucose 90 53 L POC Glucose (mg/dL) Lactic Acid Calcium 7.6 L 7.5 L Ionized Calcium Total Bilirubin 0.70 0.60 AST 33 28 ALT 15 13 Alkaline Phosphatase 73 68 Lactate Dehydrogenase 164 Total Protein 5.4 L 5.5 L Albumin 3.0 L 2.9 L Globulin 2.4 2.6 Albumin/Globulin Ratio 1.3 1.1 Amylase 265 H Lipase 1233 H 293 H Urine Color Urine Appearance Urine pH Ur Specific Ell[place] Urine Protein Urine Ketones Urine Blood Urine Nitrate Urine Bilirubin Urine Urobilinogen Ur Leukocyte Esterase Urine WBC (Auto) Urine RBC (Auto) Ur Squamous Epith Cells Urine Bacteria Urine Glucose Urine Ascorbic Acid 11/12/16 11/13/16 11/13/16 19:47 01:26 05:15 WBC 11.2 H RBC 3.98 L Hgb 12.2 Hct 38 MCV 96 MCH 31 MCHC 32 RDW 15 Plt Count 99 L MPV 10 Neut % (Auto) 72.6 Lymph % (Auto) 15.5 L Gilliam % (Auto) 8.3 Eos % (Auto) 3.3 Baso % (Auto) 0.3 Absolute Neuts (auto) 8.1 H Absolute Lymphs (auto) 1.7 Absolute Monos (auto) 0.9 H Absolute Eos (auto) 0.4 Absolute Basos (auto) 0 Absolute Nucleated RBC 0 Nucleated RBC % 0 Sodium Potassium Chloride Carbon Dioxide Anion Gap BUN Creatinine Est GFR ( Amer) Est GFR (Non-Af Amer) BUN/Creatinine Ratio Glucose POC Glucose (mg/dL) 103 88 Lactic Acid Calcium Ionized Calcium Total Bilirubin AST ALT Alkaline Phosphatase Lactate Dehydrogenase Total Protein Albumin Globulin Albumin/Globulin Ratio Amylase Lipase Urine Color Urine Appearance Urine pH Ur Specific [place] Urine Protein Urine Ketones Urine Blood Urine Nitrate Urine Bilirubin Urine Urobilinogen Ur Leukocyte Esterase Urine WBC (Auto) Urine RBC (Auto) Ur Squamous Epith Cells Urine Bacteria Urine Glucose Urine Ascorbic Acid 11/13/16 11/13/16 11/14/16 05:15 05:23 10:30 WBC RBC Hgb Hct MCV MCH MCHC RDW Plt Count MPV Neut % (Auto) Lymph % (Auto) Gilliam % (Auto) Eos % (Auto) Baso % (Auto) Absolute Neuts (auto) Absolute Lymphs (auto) Absolute Monos (auto) Absolute Eos (auto) Absolute Basos (auto) Absolute Nucleated RBC Nucleated RBC % Sodium 139 Potassium 3.4 L Chloride 110 Carbon Dioxide 21 L Anion Gap 8 BUN 4 L Creatinine 0.52 Est GFR ( Amer) 172.6 Est GFR (Non-Af Amer) 134.2 BUN/Creatinine Ratio 7.7 L Glucose 64 L POC Glucose (mg/dL) 78 Lactic Acid Calcium 7.5 L Ionized Calcium 4.51 L Total Bilirubin 0.60 AST 24 ALT 10 Alkaline Phosphatase 57 Lactate Dehydrogenase Total Protein 5.0 L Albumin 2.5 L Globulin 2.5 Albumin/Globulin Ratio 1.0 Amylase Lipase 95 H Urine Color Urine Appearance Urine pH Ur Specific [place] Urine Protein Urine Ketones Urine Blood Urine Nitrate Urine Bilirubin Urine Urobilinogen Ur Leukocyte Esterase Urine WBC (Auto) Urine RBC (Auto) Ur Squamous Epith Cells Urine Bacteria Urine Glucose Urine Ascorbic Acid 11/14/16 11/14/16 10:30 10:30 WBC 9.5 RBC 4.11 Hgb 12.7 Hct 39 MCV 95 MCH 31 MCHC 33 RDW 16 H Plt Count 120 L MPV 10 Neut % (Auto) Lymph % (Auto) Gilliam % (Auto) Eos % (Auto) Baso % (Auto) Absolute Neuts (auto) Absolute Lymphs (auto) Absolute Monos (auto) Absolute Eos (auto) Absolute Basos (auto) Absolute Nucleated RBC Nucleated RBC % Sodium 136 Potassium 3.3 L Chloride 110 Carbon Dioxide 20 L Anion Gap 6 BUN 4 L Creatinine 0.58 Est GFR ( Amer) 152.1 Est GFR (Non-Af Amer) 118.3 BUN/Creatinine Ratio 6.9 L Glucose 97 POC Glucose (mg/dL) Lactic Acid Calcium 8.1 L Ionized Calcium Total Bilirubin 0.60 AST 28 ALT 13 Alkaline Phosphatase 74 Lactate Dehydrogenase Total Protein 5.9 L Albumin 3.0 L Globulin 2.9 Albumin/Globulin Ratio 1.0 Amylase Lipase 147 H Urine Color Urine Appearance Urine pH Ur Specific [place] Urine Protein Urine Ketones Urine Blood Urine Nitrate Urine Bilirubin Urine Urobilinogen Ur Leukocyte Esterase Urine WBC (Auto) Urine RBC (Auto) Ur Squamous Epith Cells Urine Bacteria Urine Glucose Urine Ascorbic Acid Exam Appearance: Well Developed/Nourished, Other - Ill appearing. Hygiene: Normal Grooming: Fairly Well Kept Psychomotor Activities: Abnormal-Decreased Exhibits Abnormal Movement: No Attitude and Relatedness: Dismissive Eye Contact: Poor - Speech Quality: Unpressured Latencies: Normal Quantity: Terse Patient's Decription of Mood: "Fine" Observed Affect: Tense Affect Consistent with: Dysphoria Patient's Thought Process: Coherent Thought Content: No Passive Wish, No Suicidal Planning, No Homicidal Ideation, No Paranoid Ideation Experiencing Hallucinations: No, Sensorium is Clear Type of Hallucinations: Visual: No, Auditory: No, Command: No Level of Consciousness: Alert Orientation: Yes Intact, Yes Orientated to Time, Yes Orientated to Place, Yes Orientated to Person Impulse Control: Poor Insight and Judgement: Impaired Impression - Impression Clinical Impression: 36 y.o. , white female with a history of opioid and alcohol use disorders arrives at the hospital with acute abdominal pain secondary to pancreatitis in the likely setting of alcohol abuse. The patient is uncooperative and has tried to elope during her hospital course. Psychiatry is asked to render an opinion as to whether she is psychiatrically clear. Most of her issues seem to be substance abuse related at this time. Inpatient DSM-IV Dx: Alcohol Use DO Merits Inpatient Hospitalization: No Problem List - MHU Problems Type of Problem: Attitude and Relatedness Status of Problem: Active Plan - Treatment Plan Treatment Plan: The patient does not meet criteria for inpatient psychiatric hospitalization as she is neither suicidal nor homicidal and her primary pathology seems substance- related. We have broached the topic of inpatient drug and alcohol rehab but the patient is declining this, which is her right. This clinician will not be here this weekend but I will sign out the case to Dr. Osorio Garcia, the covering psychiatrist for the service this weekend. His extension is [phone]. Psychiatry will continue to follow. Medications: Current Medications Albuterol (Ventolin 2.5 Mg/3 Ml Neb.Apple*) 2.5 mg INH Q2H PRN PRN Reason: SOB/WHEEZING Chlordiazepoxide (Librium Cap*) 25 mg PO BID [facility] Last Admin: 11/14/16 08:48 Dose: 25 mg Hydromorphone HCl (Dilaudid Iv*) 0.5 mg IV SLOW PU Q4H PRN PRN Reason: PAIN Nicotine (Nicotine Inhaler*) 10 mg INH Q2H PRN PRN Reason: CRAVING Last Admin: 11/11/16 13:46 Dose: 10 mg Nicotine (Nicotine Patch 14 Mg/24 Hr*) 1 patch TRANSDERM Q24HR [facility] Last Admin: 11/14/16 08:48 Dose: 1 patch Omeprazole (Prilosec Cap*) 20 mg PO 0730 [facility] Last Admin: 11/14/16 07:51 Dose: 20 mg Ondansetron HCl (Zofran Odt Tab*) 4 mg G TUBE Q6H PRN PRN Reason: NAUSEA Oxycodone/Acetaminophen (Percocet 5/325 Tab*) 1 tab PO ONCE ONE Stop: 11/14/16 14:01 Pharmacy Profile Note (Nicotine Patch Removal Note*) 1 note PATCH OFF 2100 [facility] Last Admin: 11/13/16 22:12 Dose: Not Given Quetiapine Fumarate (Seroquel Tab*) 25 mg PO DAILY [facility] Last Admin: 11/14/16 08:48 Dose: 25 mg Ziprasidone (Geodon Im Inj*) 10 mg IM Q4H PRN PRN Reason: AGITATION Last Admin: 11/14/16 10:39 Dose: 10 mg - Discharge Plan Discharge Plan: Drug/Alcohol Rehab
[2016-11-14] MEDS ORDERED: LORazepam INJ* 2 MG/ML 1 ML VIAL IM ONE (14:00)
[2016-11-14] MEDS ORDERED: diPHENhydraMINE IV* 50 MG/ML 1 ml VIAL (BENADRYL) IM ONE (14:00)
[2016-11-14] MEDS ORDERED: oxyCODONE/Acetamin 5/325 MG* TAB PO ONE (14:00)
[2016-11-14] MEDS: Thiamine IV* 100 MG, Folic Acid IV* 1 MG, Multiple Vitamin IV ADULT* 10 ML in NS 0.9% 1... IV SCH (14:13)
[2016-11-14] MEDS ORDERED: Haloperidol INJ IV/IM* 5 MG/ML AMP IV SLOW PU PRN (15:38)
[2016-11-14] MEDS: HYDROmorphone* 1 MG/ML 1 ML SYR IV SLOW PU PRN ×3 (16:00→22:06)
[2016-11-14] MEDS: LORazepam INJ* 2 MG/ML 1 ML VIAL IV PUSH PRN (18:20)
[2016-11-14] MEDS: Nicotine Patch Removal NOTE PATCH OFF SCH (20:06)
[2016-11-14] MEDS ORDERED: Ciprofloxacin TAB* 500 MG PO SCH (21:00)
[2016-11-15] MEDS: HYDROmorphone* 1 MG/ML 1 ML SYR IV SLOW PU PRN ×5 (00:52→11:20)
[2016-11-15] MEDS: LORazepam INJ* 2 MG/ML 1 ML VIAL IV PUSH PRN ×2 (00:53→08:13)
[2016-11-15 07:12] VITALS: BP 168/93
[2016-11-15] MEDS: Nicotine PATCH 14 MG/24 HR* PATCH TRANSDERM SCH (08:15)
[2016-11-15] MEDS: chlordiazePOXIDE CAP* 25 MG PO SCH (08:15)
[2016-11-15] MEDS: QUEtiapine TAB* 25 MG PO SCH (08:15)
[2016-11-15] MEDS: Omeprazole CAP* 20 MG PO SCH (08:15)
--- NOTE | 2016-11-15 14:27 | PN ---
Hospitalist Progress Note . HOSPITALIST DISCHARGE NOTE: See dc instructions and summary by me. Patient stable for dc - though still present risk of etoh use, which mother was concerned about. Patient assures me she is committed to abstinence at this point and is intent upon not using Etoh to treat her pain. She further assures me she has no plans to use opiates after discharge and has gone through withdrawal before. We discussed her use of dilaudid here and we agree that she will be able to do without it. She confirms her abdominal pain is decreasing. dc instructions reviewed with the patient at the bedside. I will request a follow up appointment with Dr. Andres (PCP) and [facility] for depression and PTSD. DC patient home today.
--- NOTE | 2016-11-16 09:01 | DS ---
DISCHARGE SUMMARY: DATE OF ADMISSION: 11/10/16 DATE OF DISCHARGE: 11/15/16 PRIMARY CARE PROVIDER: None currently, but has seen Dr. Andres in the past - appointment will be made by hospitalist coordinator and communicated to the patient. FOLLOWUP: Followup scheduled through [facility] is in progress of being made, in conjunction with social-work team. PRINCIPAL DISCHARGE DIAGNOSES: Alcoholic pancreatitis with abdominal pain that continues to resolve, but with also erratic behavior during the hospitalization attributable to depression/PTSD/other anxiety disorder. SECONDARY DIAGNOSES: 1. Back pain. 2. Asthma. DISCHARGE MEDICATION REGIMEN: 1. Seroquel 25 mg by mouth daily - electronically sent to [facility] - the patient's identified outpatient pharmacy. HISTORY OF PRESENT ILLNESS AND HOSPITAL COURSE: Please see the H and P by Jarod Hawthorne NP, under the supervision of Dr. Raul Sheth on 11/10/16, as well as the psychiatric consultations and airport operations supervisor's notes between November 11 and November 14; in particular the airport operations supervisor's consultation was on 11/12/16 and the the two psychiatry consultations that were on November 13 and November 14, respectively. In summary, Ms. Carlton is a 36-year-old patient with a history of asthma and chronic back pain that came into the hospital stating that during the weekend she was drinking a fair amount of alcohol and had progressive abdominal discomfort in her epigastric area, with burning, sharp, stabbing sensation radiating to her back, which progressively got worse, and was associated with nausea and vomiting. The patient denied fevers or diarrhea. The patient used to be on chronic pain medications for back pain, but no longer is prescribed them, but does take opiates that she gains access to. I did not get specifics about this directly from the patient. The patient was diagnosed with pancreatitis with greatly elevated amylase and lipase to 114 and 536, respectively, as well as other lab derangements at admission including an elevated C-reactive protein. The patient was admitted to the hospitalist service and was also found to have alcoholic withdrawal and her serum alcohol level was less than 10 at admission. She had an abnormal urinalysis and also an elevated white count at admission that peaked at 23.9 on 11/12/16. The patient was treated according to a [facility] protocol. She was transferred to the ICU for sedation after she started experiencing a mental status change and delirium and she was noted to be agitated and restless and uncooperative with possibly hallucinations. She received copious doses of Ativan and Geodon for suspected DTs and was tachycardic and febrile and had an elevated white blood cell count that day to 23,000. The patient had odd behavior, including locking herself in the bathroom and refusing to come out, and sometimes demanding to leave the hospital and then recanting that desire. The patient did not have a revealing infectious workup. She was placed on Zosyn for a presumed urinary tract infection. The patient slowly improved. She was seen by Psychiatry, who ultimately concluded that the patient would not benefit from inpatient psychiatry consultation. The patient denied suicidal or homicidal ideation. They believe that there was likely more alcohol use than the patient was revealing and that she actually attended a rehab 3 to 4 years ago in [place] for both alcohol and opioid abuse. The patient - according to the patient's family, had lost custody of her children secondary to opioid addiction. There was some strife in the family and ultimately the patient stated that she desired to be discharged. I discharged her the morning of 11/15/16. I implored that she remain abstinent from alcohol and not use opiates - from whatever source - for her abdominal pain, except under the careful care of a physician. I told her that I would arrange a primary care appointment and a mental health followup appointment and communicate to her on 11/17/16. The patient was satisfied with this and was discharged in stable condition late in the morning of 11/15/16. For more details regarding the hospitalization, please see the full medical record. This is a highly summarized account of a complex hospitalization. CONDITION AT DISCHARGE: Stable. TIME SPENT: Total time taken to discharge Ms. Carlton was 45 minutes, greater than half that time spent going over the discharge instructions [id number] with the patient, explaining the hospital plan of care to her. [id number]/[facility] #: [id number]
== END 2016-11-15 11:45 | disposition home or self-care (01) | DRG 282 ==
LOC: ED 16:55 → MED 19:58 → ICU 11-12 15:30 → MED 11-14 10:57
PROVIDERS: ADMIT Hospitalist; ATTEND Internal Medicine
DX: K85.20 Alcohol induced acute pancreatitis without necrosis or infection (principal); J45.901 Unspecified asthma with (acute) exacerbation; F10.231 Alcohol dependence with withdrawal delirium; N39.0 Urinary tract infection, site not specified; Y90.9 Presence of alcohol in blood, level not specified; Z88.1 Allergy status to other antibiotic agents; Z88.5 Allergy status to narcotic agent; Z80.8 Family history of malignant neoplasm of other organs or systems; F17.210 Nicotine dependence, cigarettes, uncomplicated; R40.2412 Glasgow coma scale score 13-15, at arrival to emergency department; M54.9 Dorsalgia, unspecified; G89.29 Other chronic pain; Z80.3 Family history of malignant neoplasm of breast; R03.0 Elevated blood-pressure reading, without diagnosis of hypertension; F19.10 Other psychoactive substance abuse, uncomplicated; B96.20 Unspecified Escherichia coli [E. coli] as the cause of diseases classified elsewhere; F41.9 Anxiety disorder, unspecified
CPT/HCPCS: 36415; 74176; 74177; 76705; 80053; 80320; 81003; 81015; 82150; 82330; 83605; 83615; 83690; 84702; 85025; 85027; 86140; 87040; 87077; 87086; 87186; 94760; A9270-GY; G0480; J0780; J1170; J1200; J1630; J1644; J2060; J2270; J2405; J2543; Q9967

== ENCOUNTER 2016-11-18 17:54 | Inpatient (IN) | payer OTHER ==
[2016-11-18] MEDS ORDERED: Vancomycin(*) 1,000 MG in NS 0.9% 250 ML* 250 ML IVPB ONE (18:15)
[2016-11-18] MEDS ORDERED: NS 0.9% 1000 ML* 1,000 ML IV ONE ×2 (18:15→19:01)
[2016-11-18] MEDS ORDERED: Morphine INJ* 4 MG/ML 1 ML SYRINGE IV ONE ×2 (18:17→19:48)
[2016-11-18] MEDS ORDERED: Acetaminophen TAB* 325 MG PO ONE (18:29)
[2016-11-18] MEDS ORDERED: metroNIDAZOLE IV 500 MG/100ML* 500 MG/100 ML BAG IVPB ONE (18:35)
[2016-11-18] MEDS ORDERED: Vancomycin(*) 1,000 MG ADVAN IVPB ONE (18:50)
[2016-11-18 18:58] LABS: Hematocrit 41 % (35-47); Hemoglobin 13.4 g/dl (12.0-16.0); Mean Corpuscular HGB Conc 33 g/dl (31-36); Mean Corpuscular Hemoglobin 31 pg (27-31); Mean Corpuscular Volume 94 fL (80-97); Mean Platelet Volume 9 um3 (7.4-10.4); Red Blood Count 4.39 10^6/ul (4.0-5.4); Red Cell Distribution Width 16 % (10.5-15); White Blood Count 23.9 10^3/ul (3.5-10.8)
[2016-11-18 19:01] LABS: Add Diff/Slide Review? Slide Review Added; Comments Flag Yes
[2016-11-18 19:12] LABS: ALT 15 U/L (7-52); AST 31 U/L (13-39); Albumin 3.7 g/dL (3.2-5.2); Alkaline Phosphatase 74 U/L (34-104); Amylase 59 U/L (29-103); Anion Gap 7 mmol/L (2-11); BUN/Creatinine Ratio 6.8 (8-20); Blood Urea Nitrogen 5 mg/dL (6-24); C Reactive Protein 49.61 mg/L (< 5.00); CO2 Carbon Dioxide 28 mmol/L (22-32); Calcium 9.7 mg/dL (8.6-10.3); Chloride 102 mmol/L (101-111); Creatine Kinase 28 U/L (10-223); EGFR African American 114.9 (>60); EGFR Non-African American 89.3 (>60); Globulin 3.5 g/dL (2-4); Glucose 103 mg/dL (70-100); Lipase 179 U/L (11.0-82.0); Potassium 3.1 mmol/L (3.5-5.0); Sodium 137 mmol/L (133-145); Total Protein 7.2 g/dL (6.4-8.9)
[2016-11-18 19:13] LABS: Troponin I 0.03 ng/mL (<0.04)
[2016-11-18] MEDS ORDERED: Iohexol 300* (CONTRAST) 10 ML SDV IV ONE (19:49)
--- NOTE | 2016-11-18 19:54 | RAD ---
INDICATION: Fever and shortness of breath COMPARISON: Similar chest x-ray dated March 27, 2015 TECHNIQUE: Single AP portable view of the chest was obtained. FINDINGS: Image quality is compromised due to the relative inferiority of a portable chest x-ray. The heart and mediastinum exhibit normal size and contour. Relative to the previous chest x-ray there are patchy densities faintly seen overlying the bilateral medial and central lungs. There is no definite lobar consolidation. Visualized bones are normal for the patient's age. IMPRESSION: Faint bilateral patchy infiltrates are seen overlying the central lungs, new since the most recent March 27, 2015 chest x-ray. The differential diagnosis in a woman of this age can include pneumonia, pneumonitis, drug toxicity or early ARDS.
[2016-11-18 20:02] LABS: Alcohol < 10 mg/dL (<10)
[2016-11-18 20:10] LABS: Erythrocyte Sed Rate 45 mm/Hr (0-14)
--- NOTE | 2016-11-18 21:02 | RAD ---
CLINICAL HISTORY: Fever and right upper quadrant pain COMPARISON: Similar examination dated November 11, 2016 TECHNIQUE: Contrast enhanced CT examination of the abdomen and pelvis from the lung bases through the initial tuberosities. The patient received 70 mL Omnipaque 300 intravenously prior to imaging.The patient received oral contrast as well prior to imaging. FINDINGS: VISUALIZED LUNG BASES: Corresponding to the same day chest x-ray, there is faint groundglass density overlying the bilateral central lung bases. There is no pleural effusion. ABDOMEN AND PELVIS: Again seen is a small amount of peripancreatic fluid adjacent to the tail the pancreas. Trace fluid tracks inferiorly along the anterior border of the perirenal fascia. More inferiorly there is no significant peritoneal ascites or fluid in the pericolic gutter. The liver, spleen and adrenal glands are grossly normal in appearance. The gallbladder is normal. The kidneys are normal in appearance without focal mass, calcification or signs of hydronephrosis. There is oral contrast from this examination filling the stomach and proximal small bowel. There is also contrast from the base of the cecum to the descending colon that is hyperdense and consistent with basal contrast. The small and large bowel are not distended. The appendix appears to be filled with hyperdense oral contrast. There is no definite periappendiceal inflammatory change. There is no gross retroperitoneal or mesenteric lymphadenopathy. The pelvic viscera is normal in appearance. The abdominal aorta and iliac arteries are normal in course and diameter. There are no sinister bone lesions. IMPRESSION: 1. There has been interval reduction in the amount of peripancreatic and peritoneal ascites with just a small portion of fluid adjacent to the tail the pancreas tracking inferiorly along the anterior margin of the perirenal fascia. There is no drainable abscess or other abdominal fluid collection. From a CT imaging perspective the patient's pancreatitis appears to be improving. 2. There is hyperdense contrast filling the appendix and colon as far as the distal descending colon, presumably the contrasted the patient drank on November 11, 2016. Unless the patient had more oral contrast in the six-day interval, this would indicate slow bowel motility. 3. Corresponding to the chest x-ray findings from the same day there is patchy groundglass density overlying the bilateral central lungs. Please correlate to respiratory symptoms.
[2016-11-18 21:21] LABS: Urine Bilirubin Negative (Negative); Urine Glucose Negative (Negative); Urine Nitrite Negative (Negative)
--- NOTE | 2016-11-18 21:36 | HP ---
H&P (Free Text) History and Physical: PCP: Date/Time of Evaluation: 11/18/2016 2130 CC: abdominal pain HPI: Ms Carlton is a 36YO admitted to [facility] [place] 11/10-11/15/2016 for acute alcoholic pancreatitis. She returns today reporting ongoing abdominal pain along with subjective fever. She is currently quite sedating, sleeping confortably. She does not arouse to voice, but light touch to her LE awakens her and she immediately complains of abdominal pain and requests pain medications. She denies cough, congestion, SOB, palpitations, N/V/D, or other issues. Vitals Tm 105F, tachycardic in the 120s, tachypneic in the low 20s, stable BP. CXR interval development of RLL infiltrate. WBCs 23k 85% neutrophils, K 3.1, CRP 49, ESR 45, & lipase 179. CT abd/pel W reveal interval improvement of pancreatitis without abscess/pseudocyst formation. PMedHx chronic LBP asthma subacute pancreatitis alcohol abuse Medications quetiapine 25mg PO daily Allergies Ciprofloxacin [From Cipro] Allergy (Intermediate, Verified 11/18/16 21:50) Difficulty Breathing/Wheezing Codeine Allergy (Mild, Verified 11/18/16 21:50) Hives Cephalexin [From Keflex] Adverse Reaction (Mild, Verified 11/18/16 21:50) Palpitations Azithromycin Adverse Reaction (Verified 03/13/16 19:47) Vomiting PSurgHx denies SocHx: 1PPD cigarettes w/ ~20PYHX, no recreational drugs; FamHx: Mother: breast CA, brain tumor; Father: unknown ROS: as above, otherwise reviewed and all were negative Constitutional: NAD, normally developed, well-nourished white female vitals: Vital Signs Temp 37.9 C 11/18/16 19:47 Pulse 148 11/18/16 18:00 Resp 17 11/18/16 20:32 BP 116/80 11/18/16 18:00 Pulse Ox 93 11/18/16 18:00 Intake & Output 11/17/16 11/18/16 11/18/16 23:59 11:59 23:59 Weight 47.627 kg HEENM: atraumatic; sclera/conjunctiva: non-icteric/clear; hearing: clinically intact; oropharynx: clear, mucosa tacky Neck: soft tissue: no nuchal rigidity; thyroid: normal Pulmonary: RLL crackle, fair aeration, no accessory muscle use CV: TR/RR, normal S1S2, no carotid bruit, no jugular venous distention, 2+ B DP/ PT, no edema Abdominal: soft, non-distended, non-tender, no rebound/guarding/rigidity, normoactive bowel sounds, no hepatosplenomegaly or masses, no costovertebral angle tenderness Musculoskeletal: general: grossly intact; gait: stable Integumental: small fresh ecchymosis L anterior bicep & L anterior chest; otherwise normal appearance and texture of exposed skin Psychiatric orientation: somnolent, AA&O to PPS affect: somnolent mood: cooperative eye contact: poor content: seemingly reliable responses: timely insight: poor Testing: Lab Results 11/18/16 11/18/16 11/18/16 Range/Units 18:48 18:48 18:48 WBC 23.9 H (3.5-10.8) 10^3/ul RBC 4.39 (4.0-5.4) 10^6/ul Hgb 13.4 (12.0-16.0) g/dl Hct 41 (35-47) % MCV 94 (80-97) fL MCH 31 (27-31) pg MCHC 33 (31-36) g/dl RDW 16 H (10.5-15) % Plt Count 266 (150-450) 10^3/ul MPV 9 (7.4-10.4) um3 Neut % (Auto) 85.4 H (38-83) % Lymph % (Auto) 3.1 L (25-47) % [place] % (Auto) 10.4 H (1-9) % Eos % (Auto) 0.5 (0-6) % Baso % (Auto) 0.6 (0-2) % Absolute Neuts (auto) 20.4 H (1.5-7.7) 10^3/ul Absolute Lymphs (auto) 0.7 L (1.0-4.8) 10^3/ul Absolute Monos (auto) 2.5 H (0-0.8) 10^3/ul Absolute Eos (auto) 0.1 (0-0.6) 10^3/ul Absolute Basos (auto) 0.1 (0-0.2) 10^3/ul Absolute Nucleated RBC 0.03 10^3/ul Nucleated RBC % 0.1 ESR 45 H (0-14) mm/Hr INR (Anticoag Therapy) 0.97 (0.89-1.11) APTT 32.3 (26.0-36.3) seconds Fibrinogen 511 H (110.8-404.3) mg/dL Sodium 137 (133-145) mmol/L Potassium 3.1 L (3.5-5.0) mmol/L Chloride 102 (101-111) mmol/L Carbon Dioxide 28 (22-32) mmol/L Anion Gap 7 (2-11) mmol/L BUN 5 L (6-24) mg/dL Creatinine 0.74 (0.51-0.95) mg/dL Est GFR ( Amer) 114.9 (>60) Est GFR (Non-Af Amer) 89.3 (>60) BUN/Creatinine Ratio 6.8 L (8-20) Glucose 103 H (70-100) mg/dL Lactic Acid (0.5-2.0) mmol/L Calcium 9.7 (8.6-10.3) mg/dL Total Bilirubin 0.40 (0.2-1.0) mg/dL AST 31 (13-39) U/L ALT 15 (7-52) U/L Alkaline Phosphatase 74 (34-104) U/L Total Creatine Kinase 28 (10-223) U/L Troponin I 0.03 (<0.04) ng/mL C-Reactive Protein 49.61 H (< 5.00) mg/L B-Natriuretic Peptide ( - 100) pg/mL Total Protein 7.2 (6.4-8.9) g/dL Albumin 3.7 (3.2-5.2) g/dL Globulin 3.5 (2-4) g/dL Albumin/Globulin Ratio 1.1 (1-3) Amylase 59 (29-103) U/L Lipase 179 H (11.0-82.0) U/L Procalcitonin (<0.6) ng/mL Urine Color Urine Appearance Urine pH (5-9) Ur Specific Bally (1.010-1.030) Urine Protein (Negative) Urine Ketones (Negative) Urine Blood (Negative) Urine Nitrate (Negative) Urine Bilirubin (Negative) Urine Urobilinogen (Negative) Ur Leukocyte Esterase (Negative) Urine Glucose (Negative) Serum Alcohol < 10 (<10) mg/dL 11/18/16 11/18/16 11/18/16 Range/Units 18:48 18:48 18:48 WBC (3.5-10.8) 10^3/ul RBC (4.0-5.4) 10^6/ul Hgb (12.0-16.0) g/dl Hct (35-47) % MCV (80-97) fL MCH (27-31) pg MCHC (31-36) g/dl RDW (10.5-15) % Plt Count (150-450) 10^3/ul MPV (7.4-10.4) um3 Neut % (Auto) (38-83) % Lymph % (Auto) (25-47) % [place] % (Auto) (1-9) % Eos % (Auto) (0-6) % Baso % (Auto) (0-2) % Absolute Neuts (auto) (1.5-7.7) 10^3/ul Absolute Lymphs (auto) (1.0-4.8) 10^3/ul Absolute Monos (auto) (0-0.8) 10^3/ul Absolute Eos (auto) (0-0.6) 10^3/ul Absolute Basos (auto) (0-0.2) 10^3/ul Absolute Nucleated RBC 10^3/ul Nucleated RBC % ESR (0-14) mm/Hr INR (Anticoag Therapy) (0.89-1.11) APTT (26.0-36.3) seconds Fibrinogen (110.8-404.3) mg/dL Sodium (133-145) mmol/L Potassium (3.5-5.0) mmol/L Chloride (101-111) mmol/L Carbon Dioxide (22-32) mmol/L Anion Gap (2-11) mmol/L BUN (6-24) mg/dL Creatinine (0.51-0.95) mg/dL Est GFR ( Amer) (>60) Est GFR (Non-Af Amer) (>60) BUN/Creatinine Ratio (8-20) Glucose (70-100) mg/dL Lactic Acid 1.9 (0.5-2.0) mmol/L Calcium (8.6-10.3) mg/dL Total Bilirubin (0.2-1.0) mg/dL AST (13-39) U/L ALT (7-52) U/L Alkaline Phosphatase (34-104) U/L Total Creatine Kinase (10-223) U/L Troponin I (<0.04) ng/mL C-Reactive Protein (< 5.00) mg/L B-Natriuretic Peptide 48 ( - 100) pg/mL Total Protein (6.4-8.9) g/dL Albumin (3.2-5.2) g/dL Globulin (2-4) g/dL Albumin/Globulin Ratio (1-3) Amylase (29-103) U/L Lipase (11.0-82.0) U/L Procalcitonin 0.2 (<0.6) ng/mL Urine Color Urine Appearance Urine pH (5-9) Ur Specific Bally (1.010-1.030) Urine Protein (Negative) Urine Ketones (Negative) Urine Blood (Negative) Urine Nitrate (Negative) Urine Bilirubin (Negative) Urine Urobilinogen (Negative) Ur Leukocyte Esterase (Negative) Urine Glucose (Negative) Serum Alcohol (<10) mg/dL 11/18/16 Range/Units 21:11 WBC (3.5-10.8) 10^3/ul RBC (4.0-5.4) 10^6/ul Hgb (12.0-16.0) g/dl Hct (35-47) % MCV (80-97) fL MCH (27-31) pg MCHC (31-36) g/dl RDW (10.5-15) % Plt Count (150-450) 10^3/ul MPV (7.4-10.4) um3 Neut % (Auto) (38-83) % Lymph % (Auto) (25-47) % [place] % (Auto) (1-9) % Eos % (Auto) (0-6) % Baso % (Auto) (0-2) % Absolute Neuts (auto) (1.5-7.7) 10^3/ul Absolute Lymphs (auto) (1.0-4.8) 10^3/ul Absolute Monos (auto) (0-0.8) 10^3/ul Absolute Eos (auto) (0-0.6) 10^3/ul Absolute Basos (auto) (0-0.2) 10^3/ul Absolute Nucleated RBC 10^3/ul Nucleated RBC % ESR (0-14) mm/Hr INR (Anticoag Therapy) (0.89-1.11) APTT (26.0-36.3) seconds Fibrinogen (110.8-404.3) mg/dL Sodium (133-145) mmol/L Potassium (3.5-5.0) mmol/L Chloride (101-111) mmol/L Carbon Dioxide (22-32) mmol/L Anion Gap (2-11) mmol/L BUN (6-24) mg/dL Creatinine (0.51-0.95) mg/dL Est GFR ( Amer) (>60) Est GFR (Non-Af Amer) (>60) BUN/Creatinine Ratio (8-20) Glucose (70-100) mg/dL Lactic Acid (0.5-2.0) mmol/L Calcium (8.6-10.3) mg/dL Total Bilirubin (0.2-1.0) mg/dL AST (13-39) U/L ALT (7-52) U/L Alkaline Phosphatase (34-104) U/L Total Creatine Kinase (10-223) U/L Troponin I (<0.04) ng/mL C-Reactive Protein (< 5.00) mg/L B-Natriuretic Peptide ( - 100) pg/mL Total Protein (6.4-8.9) g/dL Albumin (3.2-5.2) g/dL Globulin (2-4) g/dL Albumin/Globulin Ratio (1-3) Amylase (29-103) U/L Lipase (11.0-82.0) U/L Procalcitonin (<0.6) ng/mL Urine Color Straw Urine Appearance Clear Urine pH 6.0 (5-9) Ur Specific Bally 1.003 L (1.010-1.030) Urine Protein Negative (Negative) Urine Ketones Negative (Negative) Urine Blood Negative (Negative) Urine Nitrate Negative (Negative) Urine Bilirubin Negative (Negative) Urine Urobilinogen Negative (Negative) Ur Leukocyte Esterase Negative (Negative) Urine Glucose Negative (Negative) Serum Alcohol (<10) mg/dL ECG, personally reviewed: sinus tachycardia rate 123, no ischemia CXR, personally reviewed: IMPRESSION: Faint bilateral patchy infiltrates are seen overlying the central lungs, new since the most recent March 27, 2015 chest x-ray. The differential diagnosis in a woman of this age can include pneumonia, pneumonitis, drug toxicity or early ARDS. CT abd/pel W, personally reviewed: IMPRESSION: 1. There has been interval reduction in the amount of peripancreatic and peritoneal ascites with just a small portion of fluid adjacent to the tail the pancreas tracking inferiorly along the anterior margin of the perirenal fascia. There is no drainable abscess or other abdominal fluid collection. From a CT imaging perspective the patient's pancreatitis appears to be improving. 2. There is hyperdense contrast filling the appendix and colon as far as the distal descending colon, presumably the contrasted the patient drank on November 11, 2016. Unless the patient had more oral contrast in the six-day interval, this would indicate slow bowel motility. 3. Corresponding to the chest x-ray findings from the same day there is patchy ground glass density overlying the bilateral central lungs. Please correlate to respiratory symptoms. Impression: 36F HX subacute pancreatitis presenting DIAGNOSIS & PLAN Primary HCAP, RLL : IV vancomycin, cefepime, azithromycin, & metronidazole : supplemental oxygen : blood & sputum CXs : check urine Legionella & S pneumo antigens : supplemental oxygen : IVFs : qSOFA initially 1, now zero : supportive care subacute pancreatitis : pain control : low fat diet Secondary chronic LBP : pain control asthma : albuterol nebs PRN : smoking cessation, low motivation Admission Rational: inpatient for HCAP not anticipated to adequately improve to allow for discharge w/i 48H DVTp: heparin SQ Code Status: full
[2016-11-18] MEDS ORDERED: Albuterol 2.5 MG/3 ML NEB.SOL* (0.083%) INH PRN (22:41)
[2016-11-18] MEDS ORDERED: Acetaminophen TAB* 325 MG PO PRN (22:41)
[2016-11-18] MEDS ORDERED: CMCS - Melatonin (NF) 3 MG TAB PO PRN (22:41)
[2016-11-18] MEDS ORDERED: Ondansetron INJ* 2 MG/ML VIAL IV PRN (22:41)
[2016-11-19] MEDS: Cefepime(*) 1 GM in NS 0.9% 50 ML* 50 ML IVPB SCH ×2 (01:09→11:01)
[2016-11-19] MEDS: Azithromycin IV(*) 500 MG in NS 0.9% 250 ML* 250 ML IVPB SCH ×3 (01:20→22:13)
[2016-11-19] MEDS: QUEtiapine TAB* 25 MG PO SCH ×2 (02:28→21:14)
[2016-11-19] MEDS: metroNIDAZOLE IV 500 MG/100ML* 500 MG/100 ML BAG IVPB SCH ×2 (03:10→09:33)
[2016-11-19] MEDS: Heparin VIAL(*) 5000 UNITS/ML VIAL (FIVE THOUSAND) SUBCUT SCH ×3 (06:17→21:14)
[2016-11-19] MEDS: Omeprazole CAP* 20 MG PO SCH (06:18)
[2016-11-19 06:29] LABS: Hematocrit 38 % (35-47); Hemoglobin 12.1 g/dl (12.0-16.0); Mean Corpuscular HGB Conc 32 g/dl (31-36); Mean Corpuscular Hemoglobin 30 pg (27-31); Mean Corpuscular Volume 95 fL (80-97); Mean Platelet Volume 9 um3 (7.4-10.4); Red Cell Distribution Width 16 % (10.5-15)
[2016-11-19 06:32] LABS: Comments Flag Yes
[2016-11-19 06:47] LABS: BUN/Creatinine Ratio 9.8 (8-20); EGFR African American 143.5 (>60); EGFR Non-African American 111.6 (>60); Potassium 3.3 mmol/L (3.5-5.0)
--- NOTE | 2016-11-19 07:39 | ED ---
Nuris Kirkland Auryana, scribed for Mitesh Dos Santos MD on 11/18/16 at 1832 . HPI Febrile Illness - HPI Summary HPI Summary: 36 year old female presents with abdominal pain s/p discharged 11/16/16 worse since 14:00 today. She states the pain is a 10/10. She also reports a fever ( started 1 hour [employer] 103 at home but 105.4 here in ED), nausea, but no vomiting or diarrhea. Patient states she also has "knots" in her arm. LMP-Current. Patient's mother states that she was prescribed medication for nerve pain but it did not work so patient has been using alcohol - 150 proof vodka to manage pain. Patient was admitted to [facility] [place] 11/10/16 for pancreatitis and discharge . 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 She denies any surgeries. 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 Softball Coach Onset/Duration: Worse Since - 1 hour [employer]- fever started Time of Onset: 14:00 - today worseing abd pain Timing: Constant Temperature: 105.4 F - 103@home Initial Severity: Severe Current Severity: Severe Pain Intensity: 8 Pain Scale Used: 0-10 Numeric Associated Signs and Symptoms: Nausea, Other: - fever, abdominal pain Related History: Similar Episode as: - see HPI - Allergy/Home Medications Allergies/Adverse Reactions: Allergies Allergy/AdvReac Type Severity Reaction Status Date / Time Ciprofloxacin [From Cipro] Allergy Intermediate Difficulty Verified 11/18/16 21: 50 Breathing/Wheezing Codeine Allergy Mild Hives Verified 11/18/16 21:50 Cephalexin [From Keflex] AdvReac Mild Palpitation Verified 11/18/16 21:50 s Azithromycin AdvReac Vomiting Verified 03/13/16 19:47 Home Medications: Home Medications Gabapentin CAP(*) 600 mg PO DAILY 11/18/16 [History Confirmed 11/18/16] PMH/Surg Hx/FS Hx/Imm Hx Endocrine/Hematology History: Denies: Hx Diabetes Respiratory History: Reports: Other Respiratory Problems/Disorders - pt reports sob-uncertain etiology BRONCHITIS Denies: Hx Asthma Musculoskeletal History: Reports: Hx Back Problems Sensory History: Denies: Hx Contacts or Glasses, Hx Hearing Aid Opthamlomology History: Denies: Hx Contacts or Glasses Neurological History: Reports: Hx Headaches Psychiatric History: Reports: Hx Substance Abuse - alcohol Denies: Hx Eating Disorder, Hx of Violent Episodes Against Others Infectious Disease History: No Infectious Disease History: Denies: Traveled Outside the [place] in Last 30 Days - Family History Known Family History: Positive: Other - cervical CA, brain tumor - Social History Occupation: Unemployed Lives: Alone Alcohol Use: Weekly Alcohol Amount: [employer]ODKA, SEVERAL BEERS Substance Use Type: Reports: None Substance Use Comment - Amount & Last Used: DENIES Smoking Status (MU): Heavy Every Day Tobacco Smoker Type: Cigarettes Review of Systems Positive: Fever Eyes: Negative ENT: Negative Cardiovascular: Negative Respiratory: Negative Positive: Abdominal Pain, Nausea. Negative: Vomiting, Diarrhea Genitourinary: Negative Positive: Other - "knots" in her arm Skin: Negative Neurological: Negative Psychological: Normal All Other Systems Reviewed And Are Negative: Yes Physical Exam - Summary Physical Exam Summary: VITAL SIGNS: Reviewed. GENERAL: Patient is a well-developed and nourished female who is lying uncomfortable in the stretcher. Patient is not in any acute respiratory distress. HEAD AND FACE: Normocephalic and atraumatic. EYES: PERRLA, EOMI x 2, No injected conjunctiva. EARS: Hearing grossly intact. Ear canals and tympanic membranes are WNL. MOUTH: DRy nasal and oral mucosa. NECK: Supple, trachea is midline, no adenopathy, no JVD. CHEST: Symmetric, no tenderness at palpation LUNGS: Clear to auscultation bilaterally. No wheezing or crackles. CVS: RRR, S1 and S2 present, no murmurs or gallops appreciated. ABDOMEN: Soft, positive tenders specailly in the LUQ. No signs of distention. Decrease bowel sounds. No abdominal bruit or pulsations. EXTREMITIES: FROM in all major joints, no edema, no cyanosis or clubbing. NEURO: Alert and oriented x 3. No acute neurological deficits. Speech is normal. SKIN: Dry and warm Triage Information Reviewed: Yes Vital Signs On Initial Exam: Initial Vitals Temp Pulse Resp BP Pulse Ox 105.4 F 154 22 116/80 93 11/18/16 17:55 11/18/16 17:55 11/18/16 17:55 11/18/16 17:55 11/18/16 17:55 Vital Signs Reviewed: Yes Diagnostics - Vital Signs Vital Signs Temp Pulse Resp BP Pulse Ox 11/18/16 18:00 105.2 F 148 22 116/80 93 11/18/16 17:55 105.4 F 154 22 116/80 93 - Laboratory Result Diagrams: 11/19/16 06:15 11/19/16 06:15 Lab Statement: Any lab studies that have been ordered have been reviewed, and results considered in the medical decision making process. Course/Dx - Course Assessment/Plan: 36 year old female presents with abdominal pain s/p discharged 11/16/16 worse since 14:00 today. She states the pain is a 10/10. She also reports a fever (started 1 hour [employer] 103 at home but 105.4 here in ED), nausea, but no vomiting or diarrhea. Patient states she also has "knots" in her arm. LMP-Current. Patient's mother states that she was prescribed medication for nerve pain but it did not work so patient has been using alcohol - 150 proof vodka to manage pain. Patient was admitted to [facility] [place] 11/10/16 for pancreatitis and discharge 11/16/16. 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 She denies any surgeries. We obtain IV access, started 2 liters of IV fluids, Tylenol for the fever, Vancomycin and Metronidazole since she is allergic to Cefepime. She was also given morphine for the papin. I ordered an abdominal and pelvic CT to r/o r/o acute pancreatitis with an abscess, necrotic pancreatitis or any other intra abdominal pathology since patient is hs ? abdominal pain specially in the LUQ>. Patient is awaiting for test result. She is hemodynamically stable at this time. She will be signed out to Dr. Varma for following the test result, abdominal and pelvic scan, and CXR result for further assessment and plan. - Febrile Illness Differential Diagnoses: Other: - Abdominal pain, fever, sepsis, Pancreatitis, necrotic pancreas, - Diagnoses Provider Diagnoses: Abdominal pain - Provider Notifications Discussed Care Of Patient With: Jarod Hawthorne Time Discussed With Above Provider: 18:14 Discharge - Discharge Plan Condition: Stable Disposition: ADMITTED TO [facility] Discharge Disposition Comment: pending admission/pending CXR, EKG,CT ABD/PEL sign out to Dr. Varma @[id number] The documentation as recorded by the Nuris cruz Auryana accurately reflects the service I personally performed and the decisions made by me, Mitesh Dos Santos MD.
[2016-11-19] MEDS: Docusate CAP* 100 MG PO SCH ×2 (09:00→21:13)
[2016-11-19] MEDS: traMADol TAB* 50 MG PO PRN ×3 (09:33→21:23)
[2016-11-19] MEDS: fentaNYL* 50 MCG/ML 2 ML VIAL (100 MCG VIAL) IV SLOW PU PRN ×3 (12:26→21:15)
[2016-11-19] MEDS: Nicotine PATCH 21 MG/24 HR* PATCH TRANSDERM SCH (13:39)
--- NOTE | 2016-11-19 14:03 | PN ---
Subjective Date of Service: 11/19/16 Interval History: HOSPITALIST PROGRESS NOTE Patient seen and examined at bedside. C/o severe epigastric abdominal pain since discharge. States she did not drink alcohol, but did eat at [employer] after discharge and her pain got worse. C/o chronic cough ("smoker's cough) that got worse after discharge. Family History: Unchanged from Admission Social History: Unchanged from Admission Past Medical History: Unchanged from Admission Objective Active Medications: Acetaminophen (Tylenol Tab*) 650 mg PO Q6H PRN PRN Reason: FEVER/PAIN Albuterol (Ventolin 2.5 Mg/3 Ml Neb.Apple*) 2.5 mg INH Q2H PRN PRN Reason: SOB/WHEEZING Docusate Sodium (Colace Cap*) 200 mg PO BID [facility] Last Admin: 11/19/16 09:00 Dose: Not Given Fentanyl Citrate (Fentanyl*) 25 mcg IV SLOW PU Q4H PRN PRN Reason: SEVERE PAIN Last Admin: 11/19/16 12:26 Dose: 25 mcg Heparin Sodium (Porcine) (Heparin Vial(*)) 5,000 units SUBCUT Q8HR [facility] Last Admin: 11/19/16 13:39 Dose: 5,000 units Lactated Ringer's (Lactated Ringers 1000 Ml Bag*) 1,000 mls @ 125 mls/hr IV PER RATE [facility] Last Admin: 11/19/16 13:17 Dose: 125 mls/hr Cefepime HCl 1 gm/ Sodium (Chloride) 50 mls @ 100 mls/hr IVPB Q12H [facility] Last Admin: 11/19/16 11:01 Dose: 100 mls/hr Azithromycin 500 mg/ Sodium (Chloride) 250 mls @ 250 mls/hr IVPB Q24H [facility] Last Admin: 11/19/16 03:12 Dose: 250 mls/hr Metronidazole/Sodium Chloride (Flagyl 500 Mg Ivpb*) 500 mg in 100 mls @ 100 mls /hr IVPB Q8H [facility] Last Admin: 11/19/16 09:33 Dose: 100 mls/hr Ibuprofen (Motrin Tab*) 600 mg PO Q6H PRN PRN Reason: HEADACHE Melatonin (Melatonin (Nf)) 3 mg PO BEDTIME PRN; Protocol PRN Reason: Sleep Nicotine (Nicotine Patch 21 Mg/24 Hr*) 1 patch TRANSDERM Q24HR [facility] Last Admin: 11/19/16 13:39 Dose: 1 patch Omeprazole (Prilosec Cap*) 20 mg PO DAILY@0600 [facility] Last Admin: 11/19/16 06:18 Dose: 20 mg Ondansetron HCl (Zofran Inj*) 4 mg IV Q6H PRN PRN Reason: NAUSEA Pharmacy Profile Note (Nicotine Patch Removal Note*) 1 note FOLLOW UP 2100 [facility] Quetiapine Fumarate (Seroquel Tab*) 25 mg PO BEDTIME [facility] Last Admin: 11/19/16 02:28 Dose: 25 mg Tramadol HCl (Ultram*) 50 mg PO Q6H PRN PRN Reason: PAIN Last Admin: 11/19/16 09:33 Dose: 50 mg Vital Signs 11/19/16 11/19/16 11/19/16 04:01 07:22 08:00 Temperature 98.4 F Pulse Rate 90 89 Respiratory 16 Rate Blood Pressure 99/57 95/66 (mmHg) O2 Sat by Pulse 95 92 92 Oximetry Oxygen Devices in Use Now: None Appearance: Young lady lying in bed in [facility]. Eyes: No Scleral Icterus Ears/Nose/Mouth/Throat: Mucous Membranes Moist Neck: Trachea Midline Respiratory: Symmetrical Chest Expansion and Respiratory Effort, Clear to Auscultation Cardiovascular: NL Sounds; No Murmurs; No JVD, RRR Abdominal: - - Diffuse tenderness, especially in epigastric area, no guarding or rebound, BS+ Extremities: No Edema Neurological: Alert and Oriented x 3, NL Muscle Strength and Tone Lines/Tubes/Other Access: Clean, Dry and Intact Peripheral IV Nutrition: Taking PO's Result Diagrams: 11/19/16 06:15 11/19/16 06:15 Assess/Plan/Problems-Billing Assessment: Ms. Carlton is a 36yo F with PMH of tobacco abuse, alcohol abuse, recent admission for pancreatitis, asthma, chronic back pain, who presented to ED with worsening abdominal pain, found to have subacute pancreatitis and pneumonia. - Patient Problems (1) Subacute pancreatitis Comment: - Patient denies drinking alcohol after discharge, but ate at [employer] before her symptoms got worse. - Continue pain management and low fat diet. - Continue IVF. (2) HCAP (healthcare-associated pneumonia) Comment: - Patient has developed new infiltrates on CxR and CT. - Legionella and pneumococcal Ag are negative. - Cultures are pending. - Will switch Cefepime/Metronidazole to Zosyn and continue azithromycin. (3) Tobacco abuse Comment: - Not motivated to quit at this time. - Continue nicotine patch. (4) DVT prophylaxis Comment: - SQ heparin. (5) Full code status Status and Disposition: Inpatient.
[2016-11-19] MEDS: KCL 10 MEQ/50 ML IVPREMIX* 10 MEQ/50 ML BAG IV SCH ×4 (15:07→19:53)
[2016-11-19] MEDS: Ibuprofen TAB* 600 MG PO PRN ×2 (15:10→21:23)
[2016-11-19] MEDS ORDERED: Potassium Chlor TAB* 20 MEQ TAB.ER PO ONE (20:00)
[2016-11-19] MEDS: Nicotine Patch Removal NOTE FOLLOW UP SCH (21:14)
[2016-11-19] MEDS: ZOSYN 3.375 GM Q6H - Intermittant 30 min Infusion IVPB SCH ×2 (21:22)
[2016-11-20] MEDS: ZOSYN 3.375 GM Q6H - Intermittant 30 min Infusion IVPB SCH ×8 (03:39→21:31)
[2016-11-20] MEDS: fentaNYL* 50 MCG/ML 2 ML VIAL (100 MCG VIAL) IV SLOW PU PRN ×5 (03:39→21:33)
[2016-11-20] MEDS: Heparin VIAL(*) 5000 UNITS/ML VIAL (FIVE THOUSAND) SUBCUT SCH ×3 (05:59→21:30)
[2016-11-20] MEDS: Omeprazole CAP* 20 MG PO SCH (05:59)
[2016-11-20] MEDS: Nicotine PATCH 21 MG/24 HR* PATCH TRANSDERM SCH (09:36)
[2016-11-20] MEDS: Docusate CAP* 100 MG PO SCH ×2 (09:37→21:31)
[2016-11-20] MEDS ORDERED: fentaNYL* 50 MCG/ML 2 ML VIAL (100 MCG VIAL) IV SLOW PU PRN (09:40)
[2016-11-20 10:35] LABS: Hematocrit 37 % (35-47); Hemoglobin 11.9 g/dl (12.0-16.0); Mean Corpuscular HGB Conc 33 g/dl (31-36); Mean Corpuscular Hemoglobin 31 pg (27-31); Mean Corpuscular Volume 94 fL (80-97); Mean Platelet Volume 9 um3 (7.4-10.4); Red Blood Count 3.89 10^6/ul (4.0-5.4); Red Cell Distribution Width 16 % (10.5-15); White Blood Count 11.1 10^3/ul (3.5-10.8)
[2016-11-20 10:45] LABS: Calcium 8.3 mg/dL (8.6-10.3); EGFR African American 155.2 (>60); EGFR Non-African American 120.7 (>60); Potassium 3.5 mmol/L (3.5-5.0)
[2016-11-20] MEDS: traMADol TAB* 50 MG PO PRN (12:58)
--- NOTE | 2016-11-20 13:50 | PN ---
Subjective Date of Service: 11/20/16 Interval History: HOSPITALIST PROGRESS NOTE Patient seen and examined at bedside. She c/o severe abdominal pain. No N/V, normal BM this AM. Denies dyspnea, chest pain, and cough is improved. Family History: Unchanged from Admission Social History: Unchanged from Admission Past Medical History: Unchanged from Admission Objective Active Medications: Acetaminophen (Tylenol Tab*) 650 mg PO Q6H PRN PRN Reason: FEVER/PAIN Albuterol (Ventolin 2.5 Mg/3 Ml Neb.Apple*) 2.5 mg INH Q2H PRN PRN Reason: SOB/WHEEZING Docusate Sodium (Colace Cap*) 200 mg PO BID [facility] Last Admin: 11/20/16 09:37 Dose: Not Given Fentanyl Citrate (Fentanyl*) 50 mcg IV SLOW PU Q3H PRN PRN Reason: SEVERE PAIN Heparin Sodium (Porcine) (Heparin Vial(*)) 5,000 units SUBCUT Q8HR [facility] Last Admin: 11/20/16 05:59 Dose: 5,000 units Lactated Ringer's (Lactated Ringers 1000 Ml Bag*) 1,000 mls @ 125 mls/hr IV PER RATE [facility] Last Admin: 11/20/16 10:56 Dose: 125 mls/hr Azithromycin 500 mg/ Sodium (Chloride) 250 mls @ 250 mls/hr IVPB Q24H [facility] Last Admin: 11/19/16 22:13 Dose: 250 mls/hr Piperacillin Sod/Tazobactam (Sod 3.375 gm/ Sodium Chloride) 115 mls @ 230 mls/ hr IVPB Q6H [facility] Last Admin: 11/20/16 09:36 Dose: 230 mls/hr Ibuprofen (Motrin Tab*) 600 mg PO Q6H PRN PRN Reason: HEADACHE Last Admin: 11/19/16 21:23 Dose: 600 mg Melatonin (Melatonin (Nf)) 3 mg PO BEDTIME PRN; Protocol PRN Reason: Sleep Nicotine (Nicotine Patch 21 Mg/24 Hr*) 1 patch TRANSDERM Q24HR [facility] Last Admin: 11/20/16 09:36 Dose: 1 patch Omeprazole (Prilosec Cap*) 20 mg PO DAILY@0600 [facility] Last Admin: 11/20/16 05:59 Dose: 20 mg Ondansetron HCl (Zofran Inj*) 4 mg IV Q6H PRN PRN Reason: NAUSEA Pharmacy Profile Note (Nicotine Patch Removal Note*) 1 note FOLLOW UP 2100 [facility] Last Admin: 11/19/16 21:14 Dose: 1 note Quetiapine Fumarate (Seroquel Tab*) 25 mg PO BEDTIME [facility] Last Admin: 11/19/16 21:14 Dose: 25 mg Tramadol HCl (Ultram*) 50 mg PO Q6H PRN PRN Reason: PAIN Last Admin: 11/20/16 12:58 Dose: 50 mg Vital Signs 11/20/16 11/20/16 11/20/16 10:53 11:16 12:58 Temperature 98.4 F Pulse Rate 82 Respiratory 16 16 Rate Blood Pressure 135/87 (mmHg) O2 Sat by Pulse 97 Oximetry Oxygen Devices in Use Now: None Appearance: Young lady lying in bed, appears to be uncomfortable. Eyes: No Scleral Icterus Ears/Nose/Mouth/Throat: Mucous Membranes Moist Neck: Trachea Midline Respiratory: Symmetrical Chest Expansion and Respiratory Effort, Clear to Auscultation Cardiovascular: NL Sounds; No Murmurs; No JVD, RRR Abdominal: - - Soft, epigastric tenderness, no guarding or rebound, BS+ Extremities: No Edema Neurological: Alert and Oriented x 3, NL Muscle Strength and Tone Lines/Tubes/Other Access: Clean, Dry and Intact Peripheral IV Nutrition: Taking PO's Result Diagrams: 11/20/16 10:17 11/20/16 10:17 Assess/Plan/Problems-Billing Assessment: Ms. Carlton is a 36yo F with PMH of tobacco abuse, alcohol abuse, recent admission for pancreatitis, asthma, chronic back pain, who presented to ED with worsening abdominal pain, found to have subacute pancreatitis and pneumonia. - Patient Problems (1) Subacute pancreatitis Comment: - Patient denies drinking alcohol after discharge, but ate at [employer] before her symptoms got worse. - Continue pain management and low fat diet. - Decrease IVF. (2) HCAP (healthcare-associated pneumonia) Comment: - Patient has developed new infiltrates on CxR and CT. - Legionella and pneumococcal Ag are negative. - Cultures show no growth so far. - Continue Zosyn and azithromycin. - Remains afebrile and WBC is trending down. (3) Tobacco abuse Comment: - Not motivated to quit at this time. - Continue nicotine patch. (4) DVT prophylaxis Comment: - SQ heparin. (5) Full code status Status and Disposition: Inpatient.
[2016-11-20] MEDS ORDERED: guaiFENesin LIQ* 100 MG/5 ML UDC PO PRN (18:46)
[2016-11-20] MEDS: Nicotine Patch Removal NOTE FOLLOW UP SCH (21:29)
[2016-11-20] MEDS: QUEtiapine TAB* 25 MG PO SCH (21:29)
[2016-11-20] MEDS: Azithromycin IV(*) 500 MG in NS 0.9% 250 ML* 250 ML IVPB SCH (22:25)
[2016-11-21] MEDS: fentaNYL* 50 MCG/ML 2 ML VIAL (100 MCG VIAL) IV SLOW PU PRN ×7 (01:36→22:39)
[2016-11-21] MEDS: ZOSYN 3.375 GM Q6H - Intermittant 30 min Infusion IVPB SCH ×8 (03:44→22:38)
[2016-11-21] MEDS: Heparin VIAL(*) 5000 UNITS/ML VIAL (FIVE THOUSAND) SUBCUT SCH ×3 (05:01→21:09)
[2016-11-21] MEDS: Omeprazole CAP* 20 MG PO SCH (05:01)
[2016-11-21] MEDS: Docusate CAP* 100 MG PO SCH ×2 (07:15→21:02)
[2016-11-21] MEDS: Nicotine PATCH 21 MG/24 HR* PATCH TRANSDERM SCH (08:01)
[2016-11-21] MEDS: oxyCODONE TAB* 5 MG TAB PO PRN ×3 (08:04→22:40)
[2016-11-21 11:46] LABS: Albumin 2.6 g/dL (3.2-5.2); Globulin 2.6 g/dL (2-4); Total Bilirubin 0.3 mg/dL (0.2-1.0); Total Protein 5.2 g/dL (6.4-8.9)
[2016-11-21 12:11] LABS: Albumin 2.9 g/dL (3.2-5.2); BUN/Creatinine Ratio 6.6 (8-20); Calcium 8.5 mg/dL (8.6-10.3); EGFR African American 143.5 (>60); EGFR Non-African American 111.6 (>60); Potassium 3.6 mmol/L (3.5-5.0); Total Bilirubin 0.3 mg/dL (0.2-1.0); Total Protein 5.9 g/dL (6.4-8.9)
--- NOTE | 2016-11-21 13:32 | PN ---
Subjective Date of Service: 11/21/16 Interval History: Pt stated that she had been unable to eat x 2 days. Every time she eats she has severe epigastric pain. Family History: Unchanged from Admission Social History: Unchanged from Admission Past Medical History: Unchanged from Admission Objective Active Medications: Acetaminophen (Tylenol Tab*) 650 mg PO Q6H PRN PRN Reason: FEVER/PAIN Albuterol (Ventolin 2.5 Mg/3 Ml Neb.Apple*) 2.5 mg INH Q2H PRN PRN Reason: SOB/WHEEZING Docusate Sodium (Colace Cap*) 200 mg PO BID [facility] Last Admin: 11/21/16 07:15 Dose: Not Given Fentanyl Citrate (Fentanyl*) 25 mcg IV SLOW PU Q4H PRN PRN Reason: PAIN Last Admin: 11/21/16 13:10 Dose: 25 mcg Guaifenesin (Robitussin*) 5 ml PO Q4H PRN PRN Reason: COUGH Last Admin: 11/21/16 03:54 Dose: 5 ml Heparin Sodium (Porcine) (Heparin Vial(*)) 5,000 units SUBCUT Q8HR [facility] Last Admin: 11/21/16 13:09 Dose: 5,000 units Azithromycin 500 mg/ Sodium (Chloride) 250 mls @ 250 mls/hr IVPB Q24H [facility] Last Admin: 11/20/16 22:25 Dose: 250 mls/hr Piperacillin Sod/Tazobactam (Sod 3.375 gm/ Sodium Chloride) 115 mls @ 230 mls/ hr IVPB Q6H [facility] Last Admin: 11/21/16 08:01 Dose: 230 mls/hr Ibuprofen (Motrin Tab*) 600 mg PO Q6H PRN PRN Reason: HEADACHE Last Admin: 11/19/16 21:23 Dose: 600 mg Melatonin (Melatonin (Nf)) 3 mg PO BEDTIME PRN; Protocol PRN Reason: Sleep Nicotine (Nicotine Patch 21 Mg/24 Hr*) 1 patch TRANSDERM Q24HR [facility] Last Admin: 11/21/16 08:01 Dose: 1 patch Omeprazole (Prilosec Cap*) 20 mg PO DAILY@0600 [facility] Last Admin: 11/21/16 05:01 Dose: 20 mg Ondansetron HCl (Zofran Inj*) 4 mg IV Q6H PRN PRN Reason: NAUSEA Oxycodone HCl (Roxycodone Tab*) 5 mg PO Q4H PRN PRN Reason: PAIN Last Admin: 11/21/16 08:04 Dose: 5 mg Pharmacy Profile Note (Nicotine Patch Removal Note*) 1 note FOLLOW UP 2100 [facility] Last Admin: 11/20/16 21:29 Dose: 1 note Quetiapine Fumarate (Seroquel Tab*) 25 mg PO BEDTIME [facility] Last Admin: 11/20/16 21:29 Dose: 25 mg Sucralfate (Carafate*) 1 gm PO AC [facility] Tramadol HCl (Ultram*) 50 mg PO Q6H PRN PRN Reason: PAIN Last Admin: 11/20/16 12:58 Dose: 50 mg Vital Signs 11/20/16 11/20/16 11/20/16 13:42 14:42 14:58 Temperature Pulse Rate Respiratory 16 16 16 Rate Blood Pressure (mmHg) O2 Sat by Pulse Oximetry 11/20/16 11/20/16 11/20/16 15:22 16:09 18:17 Temperature 97.9 F Pulse Rate 80 80 Respiratory 16 16 Rate Blood Pressure 156/99 157/99 (mmHg) O2 Sat by Pulse 99 Oximetry 11/20/16 11/20/16 11/20/16 19:17 19:32 20:00 Temperature 98.0 F Pulse Rate 69 Respiratory 18 17 16 Rate Blood Pressure 149/89 (mmHg) O2 Sat by Pulse 100 100 Oximetry 11/20/16 11/20/16 11/20/16 20:17 21:17 21:33 Temperature Pulse Rate Respiratory 18 16 16 Rate Blood Pressure (mmHg) O2 Sat by Pulse Oximetry 11/20/16 11/20/16 11/20/16 22:17 22:33 23:12 Temperature 98.2 F Pulse Rate 88 Respiratory 16 16 16 Rate Blood Pressure 108/75 (mmHg) O2 Sat by Pulse 99 Oximetry 11/21/16 11/21/16 11/21/16 01:36 02:05 02:36 Temperature Pulse Rate 70 Respiratory 18 16 16 Rate Blood Pressure (mmHg) O2 Sat by Pulse 100 Oximetry 11/21/16 11/21/16 11/21/16 03:57 05:00 07:26 Temperature 97.7 F Pulse Rate 88 82 Respiratory 20 16 16 Rate Blood Pressure 114/84 111/71 (mmHg) O2 Sat by Pulse 97 98 Oximetry 11/21/16 11/21/16 11/21/16 08:04 09:16 09:32 Temperature Pulse Rate Respiratory 18 18 22 Rate Blood Pressure (mmHg) O2 Sat by Pulse Oximetry 11/21/16 11/21/16 10:04 13:10 Temperature Pulse Rate Respiratory 18 18 Rate Blood Pressure (mmHg) O2 Sat by Pulse Oximetry Oxygen Devices in Use Now: None Appearance: 36 yo F in n[place], aAOx3 Eyes: No Scleral Icterus, PERRLA Ears/Nose/Mouth/Throat: NL Teeth, Lips, Gums, Mucous Membranes Moist Neck: NL Appearance and Movements; NL JVP, Trachea Midline Respiratory: Symmetrical Chest Expansion and Respiratory Effort, - - coarse crackles b/l bases Cardiovascular: NL Sounds; No Murmurs; No JVD, RRR Abdominal: - - soft, tender in epigastrium, no rabound, no guarding, BS+ Lymphatic: No Cervical Adenopathy Extremities: No Clubbing, Cyanosis, - - resolving ecchymoses on b/l UE's Skin: No Rash or Ulcers, No Nodules or Sclerosis Neurological: Alert and Oriented x 3, NL Muscle Strength and Tone Result Diagrams: 11/20/16 10:17 11/21/16 11:26 Microbiology and Other Data: Microbiology 11/19/16 02:40 Legionella Urinary Antigen - Final Urine Negative Legionella Streptococcus pneumoniae Ag Screen - Final Negative S. pneumo Antigen Assess/Plan/Problems-Billing Assessment: Ms. Carlton is a 36yo F with PMH of tobacco abuse, alcohol abuse, recent admission for pancreatitis, asthma, chronic back pain, who presented to ED with worsening abdominal pain, found to have subacute pancreatitis and pneumonia. - Patient Problems (1) HCAP (healthcare-associated pneumonia) Comment: Legionella and pneumococcal Ag are negative. Cultures show no growth so far. Continue Zosyn and azithromycin. Remains afebrile and WBC is trending down. (2) Subacute pancreatitis Comment: Patient denies drinking alcohol after discharge, but ate at [employer] before her symptoms got worse. Lipase down to 100 today c/o epigastric pain x 2 days-suspect gastritis. will start Carafate, Cont PPI, ask Dr. Funk to see pt in consult (3) DVT prophylaxis Current Visit: Yes Comment: - SQ heparin. (4) Full code status Status and Disposition: Inpatient.
[2016-11-21] MEDS ORDERED: Sucralfate TAB* 1 GM PO PRN (14:31)
[2016-11-21] MEDS ORDERED: Sucralfate TAB* 1 GM PO SCH (16:30)
[2016-11-21] MEDS ORDERED: fentaNYL* 50 MCG/ML 2 ML VIAL (100 MCG VIAL) IV SLOW PU PRN (19:01)
[2016-11-21] MEDS: QUEtiapine TAB* 25 MG PO SCH (21:08)
[2016-11-21] MEDS: Pancrelipase CAP* 5,000 UNITS CAP PO SCH (21:08)
--- NOTE | 2016-11-21 23:27 | CONS ---
CONSULTATION NOTE: DATE OF CONSULTATION: 11/21/16 REASON FOR CONSULTATION: Epigastric pain, alcoholic pancreatitis. NARRATIVE: Ms. Carlton is a 36-year-old woman with a history of substance abuse in the past, chronic back pain, and asthma. She was initially admitted on 11/10/16 for severe epigastric pain radiating into the back. It was occurring during a period of very alcohol use where she was using a 150 proo f vodka on a regular basis. On her admission on November 10, she was noted to have an elevated lipase of 1233, normal liver panel, and had a CT scan of the abdomen, which I did review showing some inter stitial pancreatitis, but no significant fluid collections and good enhancement of pancreas. She wa s admitted for pain control and eventually discharged, although needed to be readmitted for recurren t pain. She had a followup CAT scan of the abdomen on 11/18/16 when she was readmitted, which I did review showing near-complete resolution of the pancreatitis and no other abnormalities. Additional data has included a lipase today of 114, normal liver panel, and white blood cell count of 11.1 yes terday. The patient continues to describe pain and has required high doses of narcotics. She has h ad no significant nausea or vomiting and has been able to tolerate a full liquid diet. She has no p rior history of pancreatitis. PAST MEDICAL HISTORY: Does include chronic back pain for which she was on chronic narcotics for man y years. She was able to, through rehab, come off of those narcotics. She has a history of asthma. PAST SURGICAL HISTORY: She has had no abdominal surgeries. PHYSICAL EXAM: She is a young woman describing significant pain, but appearing relatively comfortab le and no acute distress. Temperature is 97.7, blood pressure is 161/92, and heart rate is 70 and r egular. She is anicteric. There are some bruises over her arms. Cardiac exam reveals a regular rh ythm. Abdomen is soft with tenderness in the epigastrium. There is no mass or rebound. Bowel soun ds normoactive. Extremities reveal no edema. IMPRESSION: Young woman with alcoholic pancreatitis unfortunately with persistent pain. I do belie ve the prior history of chronic narcotics makes it difficult to manage her pain control, although ob jectively her pancreatitis is improving by imaging and by biochemical criteria. I would recommend a dding on pancreatic enzyme replacement, which may have some pain modulatory effects and see if we co uld transition her to pain medicines. She was also instructed that she does need to avoid alcohol c onsumption in the future. [id number]/[facility] #: [id number]
[2016-11-21] MEDS: Azithromycin IV(*) 500 MG in NS 0.9% 250 ML* 250 ML IVPB SCH (23:31)
[2016-11-21] MEDS: Nicotine Patch Removal NOTE FOLLOW UP SCH (23:49)
[2016-11-22] MEDS: fentaNYL* 50 MCG/ML 2 ML VIAL (100 MCG VIAL) IV SLOW PU PRN ×4 (00:50→10:23)
[2016-11-22] MEDS: ZOSYN 3.375 GM Q6H - Intermittant 30 min Infusion IVPB SCH ×4 (04:02→09:59)
[2016-11-22] MEDS: oxyCODONE TAB* 5 MG TAB PO PRN ×2 (04:32→08:23)
[2016-11-22 08:01] VITALS: BP 149/93
[2016-11-22] MEDS: Heparin VIAL(*) 5000 UNITS/ML VIAL (FIVE THOUSAND) SUBCUT SCH (08:03)
[2016-11-22] MEDS: Omeprazole CAP* 20 MG PO SCH (08:04)
[2016-11-22] MEDS: Docusate CAP* 100 MG PO SCH (08:10)
[2016-11-22] MEDS: Pancrelipase CAP* 5,000 UNITS CAP PO SCH (08:24)
[2016-11-22] MEDS: Nicotine PATCH 21 MG/24 HR* PATCH TRANSDERM SCH (08:24)
--- NOTE | 2016-11-23 00:36 | DS ---
DISCHARGE SUMMARY: DATE OF ADMISSION: 11/18/16 DATE OF DISCHARGE: 11/22/16 DISCHARGE DIAGNOSES: 1. Epigastric pain due to subacute pancreatitis in a patient with recent diagnosis of alcoholic pancreatitis for which she was discharged on 11/15/16. 2. Hospital-acquired pneumonia. SECONDARY DIAGNOSES: 1. History of chronic back pain. The patient has history of narcotic dependence in the past. 2. History of asthma. 3. History of alcoholism. MEDICATIONS AT DISCHARGE: Include: 1. Gabapentin 600 mg daily. 2. Augmentin 875 mg b.i.d. for 3 days total. 3. Pancrelipase 4200 units 3 times a day with meals. 4. Seroquel 25 mg daily. 5. Oxycodone 5 mg every 4 hours p.r.n. pain. The patient was dispensed total of 5 days' supply. I-STOP was checked. The last the patient had a narcotic medication prescription filled was in the year of 2015. LABORATORY DATA AND STUDIES PERFORMED DURING THE HOSPITAL STAY: Included: On 11/20/16, white blood cell count of 11.1, hemoglobin of 11.9, hematocrit of 37, platelets of 288. Sodium was 139, potassium 3.6, chloride 105, carbon dioxide 28, BUN 4, creatinine 0.6. Liver function tests were unremarkable. Lipase of 114. Urinalysis was unremarkable on 11/18/16. Serum alcohol on presentation was below 10. CONSULTATIONS DURING HOSPITAL STAY: Included Dr. Funk from Gastroenterology in regards to epigastric pain. HOSPITALIZATION COURSE: Abby Carlton is a 36-year-old female with history of alcoholism and remote history of narcotic dependence, who presented to the hospital on 11/18/16, 3 days after she was discharged for acute alcoholic pancreatitis with complaints of shortness of breath, cough, and generalized weakness. The patient was noted to have bilateral patchy infiltrates and was diagnosed with healthcare- associated pneumonia. She was treated with broad- spectrum antibiotics and responded very nicely to them. By the time of discharge, her lung exam is basically clear. Nevertheless, she continued to have epigastric pain whenever she ate. There was a question of gastritis, this was most likely related to pancreatitis. A CT of the abdomen and pelvis obtained on 11/18/16 showed improvement in the amount of peripancreatic and peritoneal ascites. Dr. Funk saw the patient in consultation, recommended a possibility of using pancreatic enzymes to relieve the patient's pain. The patient also was prescribed oxycodone 5-day supply to go home with. At the time of discharge, the patient was recommended to use low-fat diet. The patient was recommended to follow up with primary care provider. The patient stated that her mother arranged a followup visit with primary care provider but she does not remember the name of the physician. PHYSICAL EXAMINATION AT THE TIME OF DISCHARGE: Blood pressure 149/93, heart rate of 60 and regular, respiratory rate 16, oxygen saturation 97% on room air, temperature 97.7. General: This is a very pleasant 36-year-old female, who is in no acute distress. Alert, awake, and oriented x3. HEENT: Head atraumatic, normocephalic. Eyes: Pupils equal, reactive to light and accommodation. Oropharynx clear. Mucosa moist. Neck: Supple. No JVD. No bruits bilaterally. Cardiovascular: Regular rate and rhythm. No murmurs. Respiratory : Clear to auscultation bilaterally. Abdomen: Soft, nondistended and the epigastrium with no rebound and no guarding. Bowel sounds present in all quadrants. Extremities: There is no edema. +2 pulses bilaterally. No clubbing or cyanosis. Skin: On skin evaluation, the patient has scattered ecchymosis in bilateral upper extremities. Neuro Evaluation. Speech clear. Cranial nerves II through XII are grossly intact. Motor strength is 5/5 bilaterally. Please note that this is a short summary of the patient's hospital stay. Please refer to further medical records for details. TIME SPENT: Approximately 40 minutes was spent on the patient's discharge. CC: Dr. Funk* [id number]/[facility] #: [id number] [facility]ITAL[facility]
--- NOTE | 2016-11-24 05:26 | ED ---
ITimi Benjamin, scribed for Leroy Varma MD on 11/18/16 at 2030 . Progress - Progress Note Progress Note: Sign out pt from Dr. Dos Santos. 36yo female c/o fever and abdominal pain. Pt was seen and discharged for pancreatitis several days ago. - Results/Orders Results/Orders: CXR IMPRESSION: Faint bilateral patchy infiltrates are seen overlying the central lungs, new since the most recent March 27, 2015 chest x-ray. The differential diagnosis in a woman of this age can include pneumonia, pneumonitis, drug toxicity or early ARDS. CT Abd/Pelv W IMPRESSION: 1. There has been interval reduction in the amount of peripancreatic and peritoneal ascites with just a small portion of fluid adjacent to the tail the pancreas tracking inferiorly along the anterior margin of the perirenal fascia. There is no drainable abscess or other abdominal fluid collection. From a CT imaging perspective the patient's pancreatitis appears to be improving. 2. There is hyperdense contrast filling the appendix and colon as far as the distal descending colon, presumably the contrasted the patient drank on November 11, 2016. Unless the patient had more oral contrast in the six-day interval, this would indicate slow bowel motility. 3. Corresponding to the chest x-ray findings from the same day there is patchy groundglass density overlying the bilateral central lungs. Please correlate to respiratory symptoms. - EKG/XRAY/CT Comments: 20:34. Sinus Tach rate:123bpm. Re-Evaluation - Re-Evaluation First Eval Re-Evaluation Time: 19:45 Change: Worse - Pt is asking for pain meds for her abdominal pain. Course/Dx - Diagnoses Provider Diagnoses: Abdominal pain The documentation as recorded by the Timi cruz Benjamin accurately reflects the service I personally performed and the decisions made by me, Leroy Varma MD.
== END 2016-11-22 11:05 | disposition home or self-care (01) | DRG 139 ==
LOC: ED 17:54 → MED 21:16
PROVIDERS: ADMIT Hospitalist; ATTEND Internal Medicine
DX: J18.9 Pneumonia, unspecified organism (principal); K85.90 Acute pancreatitis without necrosis or infection, unspecified; Y95 Nosocomial condition; F10.10 Alcohol abuse, uncomplicated; Y90.0 Blood alcohol level of less than 20 mg/100 ml; J45.909 Unspecified asthma, uncomplicated; F17.210 Nicotine dependence, cigarettes, uncomplicated; Z79.899 Other long term (current) drug therapy; Z88.5 Allergy status to narcotic agent; Z88.1 Allergy status to other antibiotic agents; Z88.8 Allergy status to other drugs, medicaments and biological substances; Z80.3 Family history of malignant neoplasm of breast
CPT/HCPCS: 36415; 71010; 74177; 80048; 80053; 80320; 81003; 82150; 82550; 83605; 83690; 83880; 84145; 84484; 85025; 85384; 85610; 85652; 85730; 86140; 87040; 87899; 93005; 99406; A9270-GY; G0480; J0456; J0692; J1644; J2270; J2543; J3010; J3370; J3480; Q9967

== ENCOUNTER 2017-03-06 02:21 | Inpatient (IN) | payer OTHER ==
[2017-03-06] MEDS ORDERED: Ondansetron INJ* 2 MG/ML VIAL IV ONE ×2 (02:36→03:58)
[2017-03-06] MEDS ORDERED: HYDROmorphone* 1 MG/ML 1 ML SYR IV ONE (02:36)
[2017-03-06] MEDS: NS 0.9% 1000 ML* 2,000 ML IV ONE ×2 (02:57→04:20)
[2017-03-06 03:05] LABS: Hematocrit 48 % (35-47); Hemoglobin 15.7 g/dl (12.0-16.0); Mean Corpuscular HGB Conc 33 g/dl (31-36); Mean Corpuscular Hemoglobin 29 pg (27-31); Mean Corpuscular Volume 89 fL (80-97); Mean Platelet Volume 8 um3 (7.4-10.4); Red Blood Count 5.37 10^6/ul (4.0-5.4); Red Cell Distribution Width 20 % (10.5-15); White Blood Count 14.1 10^3/ul (3.5-10.8)
[2017-03-06 03:07] LABS: Urine Bilirubin Negative (Negative); Urine Glucose Negative (Negative); Urine Nitrite Negative (Negative)
[2017-03-06 03:23] LABS: Albumin 4.1 g/dL (3.2-5.2); BUN/Creatinine Ratio 13.8 (8-20); C Reactive Protein 17.07 mg/L (< 5.00); Calcium 8.9 mg/dL (8.6-10.3); EGFR Non-African American 81.6 (>60); Globulin 3.5 g/dL (2-4); Total Bilirubin 0.3 mg/dL (0.2-1.0); Total Protein 7.6 g/dL (6.4-8.9)
[2017-03-06 03:24] LABS: Potassium 3.9 mmol/L (3.5-5.0)
[2017-03-06] MEDS ORDERED: HYDROmorphone* 1 MG/ML 1 ML SYR IV SLOW PU ONE (03:58)
--- NOTE | 2017-03-06 04:13 | HP ---
H&P (Free Text) History and Physical: PCP: Date/Time of Evaluation: 03/06/2017 0410 CC: abdominal pain HPI: Ms Carlton is a 36YO admitted to [facility] [place] 11/10-11/15/2016 for acute alcoholic pancreatitis complicated by a healthcare associated pneumonia. She relates she has been doing well since excepting an asthma exacerbation she is currently on treatment for. However, she reports developing epigastric pain 3 days ago after drinking a narcisa which progressed in severity and became associated with subjective F/C and N/V/D. She denies black or bloody content to the diarrhea and emesis. She denies chest pain or other issues. Pain is currently controlled via meds given in ED. PMedHx chronic LBP asthma alcoholic pancreatitis, recurrent alcohol abuse Ambulatory Orders QUEtiapine TAB* [Seroquel TAB*] 25 mg PO DAILY #60 tab 11/15/16 Gabapentin CAP(*) 600 mg PO DAILY 11/18/16 Amoxicillin/Clavulanate TAB* [Augmentin TAB 875*] 875 mg PO BID #6 tab 11/22/16 Pancrelipase (NF) CAP [Pancreaze Delayed CAP*] 4,200 unit PO AC #90 cap oxyCODONE TAB* [Roxycodone TAB 5 mg*] 5 mg PO Q4H PRN #30 tab MDD 6 tabs Allergies Ciprofloxacin [From Cipro] Allergy (Intermediate, Verified 03/06/17 03:01) Difficulty Breathing/Wheezing Codeine Allergy (Mild, Verified 03/06/17 03:01) Hives Cephalexin [From Keflex] Adverse Reaction (Mild, Verified 03/06/17 03:01) Palpitations Azithromycin Adverse Reaction (Verified 03/06/17 03:01) Vomiting PSurgHx denies SocHx: 1PPD cigarettes w/ ~20PYHX, no recreational drugs; full code status FamHx: Mother: breast CA, brain tumor; Father: unknown ROS: as above, otherwise reviewed and all were negative Constitutional: NAD, normally developed, well-nourished white female vitals: Vital Signs Temp 36.8 C 03/06/17 02:23 Pulse 146 03/06/17 03:00 Resp 20 03/06/17 02:58 BP 137/94 03/06/17 03:00 Pulse Ox 96 03/06/17 03:00 Intake & Output 03/05/17 03/05/17 03/06/17 11:59 23:59 11:59 Weight 54.431 kg HEENM: atraumatic; sclera/conjunctiva: non-icteric/clear; hearing: clinically intact; oropharynx: clear, mucosa tacky Neck: soft tissue: non-tender; thyroid: normal Pulmonary: clear to auscultation bilaterally, normal effort CV: TR/RR, normal S1S2, no carotid bruit, no jugular venous distention, 2+ B DP/ PT, no edema Abdominal: soft, non-distended, moderate epigastric tenderness, no rebound/ guarding/rigidity, hypoactive bowel sounds, no hepatosplenomegaly or masses, no costovertebral angle tenderness Musculoskeletal: general: grossly intact; gait: stable Integumental: normal appearance and texture of exposed skin Psychiatric orientation: AA&O to PPS affect: calm mood: cooperative eye contact: fair content: reliable responses: timely insight: fair to poor Testing: Lab Results 03/06/17 03/06/17 03/06/17 Range/Units 02:45 02:45 02:45 WBC 14.1 H (3.5-10.8) 10^3/ul RBC 5.37 (4.0-5.4) 10^6/ul Hgb 15.7 (12.0-16.0) g/dl Hct 48 H (35-47) % MCV 89 (80-97) fL MCH 29 (27-31) pg MCHC 33 (31-36) g/dl RDW 20 H (10.5-15) % Plt Count 405 (150-450) 10^3/ul MPV 8 (7.4-10.4) um3 Neut % (Auto) 62.9 (38-83) % Lymph % (Auto) 23.9 L (25-47) % [place] % (Auto) 8.4 (1-9) % Eos % (Auto) 3.6 (0-6) % Baso % (Auto) 1.2 (0-2) % Absolute Neuts (auto) 8.9 H (1.5-7.7) 10^3/ul Absolute Lymphs (auto) 3.4 (1.0-4.8) 10^3/ul Absolute Monos (auto) 1.2 H (0-0.8) 10^3/ul Absolute Eos (auto) 0.5 (0-0.6) 10^3/ul Absolute Basos (auto) 0.2 (0-0.2) 10^3/ul Absolute Nucleated RBC 0 10^3/ul Nucleated RBC % 0 Sodium 139 (133-145) mmol/L Potassium 3.9 (3.5-5.0) mmol/L Chloride 108 (101-111) mmol/L Carbon Dioxide 21 L (22-32) mmol/L Anion Gap 10 (2-11) mmol/L BUN 11 (6-24) mg/dL Creatinine 0.80 (0.51-0.95) mg/dL Est GFR ( Amer) 105.0 (>60) Est GFR (Non-Af Amer) 81.6 (>60) BUN/Creatinine Ratio 13.8 (8-20) Glucose 146 H (70-100) mg/dL Lactic Acid 1.9 (0.5-2.0) mmol/L Calcium 8.9 (8.6-10.3) mg/dL Total Bilirubin 0.30 (0.2-1.0) mg/dL AST 23 (13-39) U/L ALT 18 (7-52) U/L Alkaline Phosphatase 82 (34-104) U/L C-Reactive Protein 17.07 H (< 5.00) mg/L Total Protein 7.6 (6.4-8.9) g/dL Albumin 4.1 (3.2-5.2) g/dL Globulin 3.5 (2-4) g/dL Albumin/Globulin Ratio 1.2 (1-3) Amylase 141 H (29-103) U/L Lipase 497 H (11.0-82.0) U/L Beta HCG, Quant 0.73 mIU/mL Urine Color Urine Appearance Urine pH (5-9) Ur Specific [place] (1.010-1.030) Urine Protein (Negative) Urine Ketones (Negative) Urine Blood (Negative) Urine Nitrate (Negative) Urine Bilirubin (Negative) Urine Urobilinogen (Negative) Ur Leukocyte Esterase (Negative) Urine Glucose (Negative) 03/06/17 Range/Units 02:45 WBC (3.5-10.8) 10^3/ul RBC (4.0-5.4) 10^6/ul Hgb (12.0-16.0) g/dl Hct (35-47) % MCV (80-97) fL MCH (27-31) pg MCHC (31-36) g/dl RDW (10.5-15) % Plt Count (150-450) 10^3/ul MPV (7.4-10.4) um3 Neut % (Auto) (38-83) % Lymph % (Auto) (25-47) % [place] % (Auto) (1-9) % Eos % (Auto) (0-6) % Baso % (Auto) (0-2) % Absolute Neuts (auto) (1.5-7.7) 10^3/ul Absolute Lymphs (auto) (1.0-4.8) 10^3/ul Absolute Monos (auto) (0-0.8) 10^3/ul Absolute Eos (auto) (0-0.6) 10^3/ul Absolute Basos (auto) (0-0.2) 10^3/ul Absolute Nucleated RBC 10^3/ul Nucleated RBC % Sodium (133-145) mmol/L Potassium (3.5-5.0) mmol/L Chloride (101-111) mmol/L Carbon Dioxide (22-32) mmol/L Anion Gap (2-11) mmol/L BUN (6-24) mg/dL Creatinine (0.51-0.95) mg/dL Est GFR ( Amer) (>60) Est GFR (Non-Af Amer) (>60) BUN/Creatinine Ratio (8-20) Glucose (70-100) mg/dL Lactic Acid (0.5-2.0) mmol/L Calcium (8.6-10.3) mg/dL Total Bilirubin (0.2-1.0) mg/dL AST (13-39) U/L ALT (7-52) U/L Alkaline Phosphatase (34-104) U/L C-Reactive Protein (< 5.00) mg/L Total Protein (6.4-8.9) g/dL Albumin (3.2-5.2) g/dL Globulin (2-4) g/dL Albumin/Globulin Ratio (1-3) Amylase (29-103) U/L Lipase (11.0-82.0) U/L Beta HCG, Quant mIU/mL Urine Color Yellow Urine Appearance Cloudy Urine pH 7.0 (5-9) Ur Specific [place] 1.013 (1.010-1.030) Urine Protein Negative (Negative) Urine Ketones Negative (Negative) Urine Blood Negative (Negative) Urine Nitrate Negative (Negative) Urine Bilirubin Negative (Negative) Urine Urobilinogen Negative (Negative) Ur Leukocyte Esterase Negative (Negative) Urine Glucose Negative (Negative) Impression: 36F HX alcoholic pancreatitis returns with same DIAGNOSIS & PLAN Primary alcoholic pancreatitis : NPO : pain control : IVFs : trend lipase : social welfare research worker consult for alcohol abstinence resources : supportive care Secondary chronic LBP : pain control asthma : albuterol nebs PRN : smoking cessation counselled, low motivation Admission Rational: inpatient for acute alcoholic pancreatitis not anticipated to resolve adequately w/i 48h to allow for discharge DVTp: heparin SQ Code Status: full
[2017-03-06] MEDS ORDERED: NS 0.9% 1000 ML* 1,000 ML IV SCH (04:15)
[2017-03-06] MEDS ORDERED: Albuterol 2.5 MG/3 ML NEB.SOL* (0.083%) INH PRN (04:15)
[2017-03-06] MEDS ORDERED: Acetaminophen SUPP* 650 MG SUPP PR PRN (04:16)
[2017-03-06] MEDS: HYDROmorphone* 1 MG/ML 1 ML SYR IV PRN ×6 (06:34→20:46)
--- NOTE | 2017-03-06 07:01 | ED ---
Silvano Kirkland Rebecca, scribed for Delgado Farr MD on 03/06/17 at 0359 . Abdominal Pain/Female - HPI Summary HPI Summary: Pt is a 36 y/o F who presents to ED c/o LUQ abdominal pain. Pain began 3 days ago and has been constant since onset, worsening tonight. Pain is currently severe, ranked 10/10. Sx aggravated by movement and alleviated by nothing. Additionally notes that she has been developing bruises more easily than usual. Denies back pain, nausea, calf tenderness. PMHx pancreatitis in August when she used to drink excessively. - History of Current Complaint Chief Complaint: EDAbdPain Stated Complaint: ABD PAIN Time Seen by Provider: 03/06/17 03:39 Hx Obtained From: Patient Hx Last Menstrual Period: 2 months ago Onset/Duration: Lasting Days - 3 days, Still Present, Worse Since - Tonight Severity Currently: Severe Pain Intensity: 10 Pain Scale Used: 0-10 Numeric Location: Discrete At: LUQ Aggravating Factor(s): Movement Alleviating Factor(s): Nothing Associated Signs and Symptoms: Positive: Other: - Bruising more easily. Negative: Back Pain, Nausea Allergies/Adverse Reactions: Allergies Allergy/AdvReac Type Severity Reaction Status Date / Time Ciprofloxacin [From Cipro] Allergy Intermediate Difficulty Verified 03/06/17 03: 01 Breathing/Wheezing Codeine Allergy Mild Hives Verified 03/06/17 03:01 Cephalexin [From Keflex] AdvReac Mild Palpitation Verified 03/06/17 03:01 s Azithromycin AdvReac Vomiting Verified 03/06/17 03:01 Home Medications: Home Medications Omeprazole CAP* 40 mg PO DAILY 03/06/17 [History Confirmed 03/06/17] PMH/Surg Hx/FS Hx/Imm Hx Endocrine/Hematology History: Denies: Hx Diabetes Cardiovascular History: Denies: Hx Hypercholesterolemia, Hx Hypertension Respiratory History: Reports: Other Respiratory Problems/Disorders - pt reports sob-uncertain etiology BRONCHITIS Denies: Hx Asthma History: Reports: Other Problems/Disorders - Hx pancreatitis Musculoskeletal History: Reports: Hx Back Problems Sensory History: Denies: Hx Contacts or Glasses, Hx Hearing Aid Opthamlomology History: Denies: Hx Contacts or Glasses Neurological History: Reports: Hx Headaches Psychiatric History: Reports: Hx Substance Abuse - alcohol Denies: Hx Eating Disorder, Hx of Violent Episodes Against Others Infectious Disease History: No Infectious Disease History: Denies: Hx Clostridium Difficile, Hx Hepatitis, Hx Human Immunodeficiency Virus (HIV), Hx of Known/Suspected MRSA, Hx Shingles, Hx Tuberculosis, History Other Infectious Disease, Traveled Outside the [place] in Last 30 Days - Family History Known Family History: Positive: Other - cervical CA, brain tumor - Social History Alcohol Use: Weekly Alcohol Amount: LITER OV VODKA, SEVERAL BEERS Substance Use Type: Reports: None Substance Use Comment - Amount & Last Used: DENIES Smoking Status (MU): Heavy Every Day Tobacco Smoker Type: Cigarettes Amount Used/How Often: 1PPD Have You Smoked in the Last Year: Yes Review of Systems Positive: Abdominal Pain - LUQ. Negative: Nausea Positive: Other - NEGATIVE: calf tenderness and back pain Positive: Other - Developing bruises more easily All Other Systems Reviewed And Are Negative: Yes Physical Exam - Summary Physical Exam Summary: The patient is well-nourished in moderate distress. The skin is warm and dry and skin color reflects adequate perfusion. She has decreased skin turgor. HEENT: The head is normocephalic and atraumatic. The pupils are equal and reactive. The conjunctivae are clear and without drainage. Nares are patent and without drainage. Mouth reveals dry mucous membranes and the throat is without erythema and exudate. The external ears are intact. The ear canals are patent and without drainage. The tympanic membranes are intact. Neck is supple with full range of motion and non-tender. There are no carotid bruits. There is no neck vein distension. Respiratory: Chest is non-tender. Lungs are clear to auscultation and breath sounds are symmetrical and equal. Cardiovascular: Hear is regular rhythm and tachycardic. There is no murmur or rub auscultated. There is no peripheral edema and pulses are symmetrical and equal. Abdomen: The abdomen is soft with diffuse LUQ and epigastric pain. Abdomen is distended. There are normal bowel sounds heard in all four quadrants and there is no organomegaly palpated. Musculoskeletal: There is no back pain noted. Extremities are non-tender with full range of motion. There is good capillary refill. There is no peripheral edema or calf tenderness elicited. Neurological: Patient is alert and oriented to person, place and time. The patient has symmetrical motor strength in all four extremities. Psychiatric: The patient has an appropriate affect and does not exhibit any anxiety or depression. Triage Information Reviewed: Yes Vital Signs On Initial Exam: Initial Vitals Temp Pulse Resp BP Pulse Ox 98.2 F 155 20 135/109 97 03/06/17 02:23 03/06/17 02:23 03/06/17 02:23 03/06/17 02:23 03/06/17 02:23 Vital Signs Reviewed: Yes Diagnostics - Vital Signs Vital Signs Temp Pulse Resp BP Pulse Ox 03/06/17 03:00 146 137/94 96 03/06/17 02:58 20 03/06/17 02:53 149 94 03/06/17 02:52 131/94 03/06/17 02:23 98.2 F 155 20 135/109 97 - Laboratory Lab Results: Lab Results 03/06/17 03/06/17 03/06/17 Range/Units 02:45 02:45 02:45 WBC 14.1 H (3.5-10.8) 10^3/ul RBC 5.37 (4.0-5.4) 10^6/ul Hgb 15.7 (12.0-16.0) g/dl Hct 48 H (35-47) % MCV 89 (80-97) fL MCH 29 (27-31) pg MCHC 33 (31-36) g/dl RDW 20 H (10.5-15) % Plt Count 405 (150-450) 10^3/ul MPV 8 (7.4-10.4) um3 Neut % (Auto) 62.9 (38-83) % Lymph % (Auto) 23.9 L (25-47) % [place] % (Auto) 8.4 (1-9) % Eos % (Auto) 3.6 (0-6) % Baso % (Auto) 1.2 (0-2) % Absolute Neuts (auto) 8.9 H (1.5-7.7) 10^3/ul Absolute Lymphs (auto) 3.4 (1.0-4.8) 10^3/ul Absolute Monos (auto) 1.2 H (0-0.8) 10^3/ul Absolute Eos (auto) 0.5 (0-0.6) 10^3/ul Absolute Basos (auto) 0.2 (0-0.2) 10^3/ul Absolute Nucleated RBC 0 10^3/ul Nucleated RBC % 0 Sodium 139 (133-145) mmol/L Potassium 3.9 (3.5-5.0) mmol/L Chloride 108 (101-111) mmol/L Carbon Dioxide 21 L (22-32) mmol/L Anion Gap 10 (2-11) mmol/L BUN 11 (6-24) mg/dL Creatinine 0.80 (0.51-0.95) mg/dL Est GFR ( Amer) 105.0 (>60) Est GFR (Non-Af Amer) 81.6 (>60) BUN/Creatinine Ratio 13.8 (8-20) Glucose 146 H (70-100) mg/dL Lactic Acid 1.9 (0.5-2.0) mmol/L Calcium 8.9 (8.6-10.3) mg/dL Total Bilirubin 0.30 (0.2-1.0) mg/dL AST 23 (13-39) U/L ALT 18 (7-52) U/L Alkaline Phosphatase 82 (34-104) U/L C-Reactive Protein 17.07 H (< 5.00) mg/L Total Protein 7.6 (6.4-8.9) g/dL Albumin 4.1 (3.2-5.2) g/dL Globulin 3.5 (2-4) g/dL Albumin/Globulin Ratio 1.2 (1-3) Amylase 141 H (29-103) U/L Lipase 497 H (11.0-82.0) U/L Beta HCG, Quant 0.73 mIU/mL Urine Color Urine Appearance Urine pH (5-9) Ur Specific [place] (1.010-1.030) Urine Protein (Negative) Urine Ketones (Negative) Urine Blood (Negative) Urine Nitrate (Negative) Urine Bilirubin (Negative) Urine Urobilinogen (Negative) Ur Leukocyte Esterase (Negative) Urine Glucose (Negative) 03/06/17 Range/Units 02:45 WBC (3.5-10.8) 10^3/ul RBC (4.0-5.4) 10^6/ul Hgb (12.0-16.0) g/dl Hct (35-47) % MCV (80-97) fL MCH (27-31) pg MCHC (31-36) g/dl RDW (10.5-15) % Plt Count (150-450) 10^3/ul MPV (7.4-10.4) um3 Neut % (Auto) (38-83) % Lymph % (Auto) (25-47) % [place] % (Auto) (1-9) % Eos % (Auto) (0-6) % Baso % (Auto) (0-2) % Absolute Neuts (auto) (1.5-7.7) 10^3/ul Absolute Lymphs (auto) (1.0-4.8) 10^3/ul Absolute Monos (auto) (0-0.8) 10^3/ul Absolute Eos (auto) (0-0.6) 10^3/ul Absolute Basos (auto) (0-0.2) 10^3/ul Absolute Nucleated RBC 10^3/ul Nucleated RBC % Sodium (133-145) mmol/L Potassium (3.5-5.0) mmol/L Chloride (101-111) mmol/L Carbon Dioxide (22-32) mmol/L Anion Gap (2-11) mmol/L BUN (6-24) mg/dL Creatinine (0.51-0.95) mg/dL Est GFR ( Amer) (>60) Est GFR (Non-Af Amer) (>60) BUN/Creatinine Ratio (8-20) Glucose (70-100) mg/dL Lactic Acid (0.5-2.0) mmol/L Calcium (8.6-10.3) mg/dL Total Bilirubin (0.2-1.0) mg/dL AST (13-39) U/L ALT (7-52) U/L Alkaline Phosphatase (34-104) U/L C-Reactive Protein (< 5.00) mg/L Total Protein (6.4-8.9) g/dL Albumin (3.2-5.2) g/dL Globulin (2-4) g/dL Albumin/Globulin Ratio (1-3) Amylase (29-103) U/L Lipase (11.0-82.0) U/L Beta HCG, Quant mIU/mL Urine Color Yellow Urine Appearance Cloudy Urine pH 7.0 (5-9) Ur Specific [place] 1.013 (1.010-1.030) Urine Protein Negative (Negative) Urine Ketones Negative (Negative) Urine Blood Negative (Negative) Urine Nitrate Negative (Negative) Urine Bilirubin Negative (Negative) Urine Urobilinogen Negative (Negative) Ur Leukocyte Esterase Negative (Negative) Urine Glucose Negative (Negative) Result Diagrams: 03/06/17 02:45 03/06/17 02:45 Lab Statement: Any lab studies that have been ordered have been reviewed, and results considered in the medical decision making process. Abdominal Pain Fem Course/Dx - Course Course Of Treatment: Pt is a 36 y/o F who presents to ED c/o LUQ abdominal pain. Pain began 3 days ago and has been constant since onset, worsening tonight. Pain is currently severe, ranked 10/10. Sx aggravated by movement and alleviated by nothing. Additionally notes that she has been developing bruises more easily than usual. Denies back pain, nausea, calf tenderness. PMHx pancreatitis in August when she used to drink excessively. WBC of 14.1, serum alcohol of 122, CRP 17.07. In the ED course, pt received Dilaudid, Zofran and fluids. Disussed care of pt with Dr. Sheth who accepts pt for admission. Pt will be admitted with Dx of acute pancreatitis. She understands and agrees. Elevated BP noted and advised to f/u. - Diagnoses Provider Diagnoses: Acute pancreatitis, Acute alcoholic intoxication - Provider Notifications Discussed Care Of Patient With: Raul Sheth Time Discussed With Above Provider: 04:02 Instructed by Provider To: Other - Accepts pt for admission Discharge - Discharge Plan Condition: Stable Disposition: ADMITTED TO [facility] The documentation as recorded by the Silvano cruz Rebecca accurately reflects the service I personally performed and the decisions made by , Delgado Farr MD.
[2017-03-06 08:13] LABS: Hematocrit 40 % (35-47); Hemoglobin 13.1 g/dl (12.0-16.0); Mean Corpuscular HGB Conc 33 g/dl (31-36); Mean Corpuscular Hemoglobin 29 pg (27-31); Mean Corpuscular Volume 89 fL (80-97); Mean Platelet Volume 8 um3 (7.4-10.4); Red Blood Count 4.47 10^6/ul (4.0-5.4); Red Cell Distribution Width 19 % (10.5-15); White Blood Count 10.6 10^3/ul (3.5-10.8)
[2017-03-06 08:25] LABS: BUN/Creatinine Ratio 14.9 (8-20); Calcium 7.6 mg/dL (8.6-10.3); EGFR African American 128.8 (>60); EGFR Non-African American 100.2 (>60); HDL Cholesterol 49.7 mg/dL; Potassium 3.9 mmol/L (3.5-5.0)
[2017-03-06] MEDS: QUEtiapine TAB* 25 MG PO SCH (08:44)
[2017-03-06] MEDS: Gabapentin CAP(*) 300 MG PO SCH (08:44)
[2017-03-06] MEDS: Famotidine IV* 10 MG/ML 2 ML (20 mg) IV SLOW PU SCH ×2 (08:49→20:46)
[2017-03-06] MEDS: Ondansetron INJ* 2 MG/ML VIAL IV PRN (08:51)
[2017-03-06] MEDS: oxyCODONE TAB* 5 MG TAB PO PRN ×2 (15:23→19:33)
--- NOTE | 2017-03-06 15:47 | PN ---
Hospitalist Progress Note Pt seen and examined. Pt with alcohol induced pancreatitis 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 Changed NS 125cc/hr to LR 175cc/hr. Added oxycodone 10mg q6hr and changed dilaudid 0.5mg IV q2 to be used only for breakthrough pain. 02/05 currently. Clear liquid diet as tolerated. Of note pt used to drink 4-5 ~5"tall glasses of 150 proof vodka prior to her admission in October 2016 for same. Wants her fiance Ayan to no longer bring beer into the house. s/p rehab in [place] at [facility]. Vince Lora MD
[2017-03-06] MEDS ORDERED: Mouth Piece, Nicotine* 1 EACH CARTRIDGE ONE (15:50)
[2017-03-06] MEDS: Nicotine Inhaler* 10 MG AMP INH PRN (15:52)
[2017-03-07] MEDS: oxyCODONE TAB* 5 MG TAB PO PRN ×5 (00:43→19:21)
[2017-03-07] MEDS: HYDROmorphone* 1 MG/ML 1 ML SYR IV PRN ×9 (01:57→20:44)
[2017-03-07] MEDS: Ondansetron INJ* 2 MG/ML VIAL IV PRN ×2 (02:06→11:07)
[2017-03-07] MEDS: Heparin VIAL(*) 5000 UNITS/ML VIAL (FIVE THOUSAND) SUBCUT SCH ×3 (06:11→22:41)
[2017-03-07] MEDS: Famotidine IV* 10 MG/ML 2 ML (20 mg) IV SLOW PU SCH ×2 (08:40→20:45)
[2017-03-07] MEDS: QUEtiapine TAB* 25 MG PO SCH (08:40)
[2017-03-07] MEDS: Gabapentin CAP(*) 300 MG PO SCH ×4 (10:15→20:45)
--- NOTE | 2017-03-07 12:54 | PN ---
Subjective Date of Service: 03/07/17 Interval History: Patient reports she feels a little better today but has continued mid-upper abdominal pain reporting 5-8/10 pain that is sharp in nature. Feels that her "upper abdomen is a little bloated". Compared to last admission she reports her symptoms now are milder. No fevers/chills/N/V/D. No BM today but reports passing flatulence. Reports little appetite. Objective Active Medications: Acetaminophen (Tylenol Supp*) 650 mg [place] Q6H PRN PRN Reason: FEVER/PAIN Albuterol (Ventolin 2.5 Mg/3 Ml Neb.Apple*) 2.5 mg INH Q2H PRN PRN Reason: SOB/WHEEZING Famotidine (Pepcid Iv*) 20 mg IV SLOW PU BID [facility] Last Admin: 03/07/17 08:40 Dose: 20 mg Gabapentin (Neurontin Cap(*)) 300 mg PO TID [facility] Last Admin: 03/07/17 10:23 Dose: 300 mg Heparin Sodium (Porcine) (Heparin Vial(*)) 5,000 units SUBCUT Q8HR [facility] Last Admin: 03/07/17 06:11 Dose: 5,000 units Hydromorphone HCl (Dilaudid Iv*) 0.5 mg IV Q2H PRN PRN Reason: PAIN - BREAKTHROUGH Last Admin: 03/07/17 11:06 Dose: 0.5 mg Lactated Ringer's (Lactated Ringers 1000 Ml Bag*) 1,000 mls @ 175 mls/hr IV PER RATE [facility] Last Admin: 03/07/17 12:35 Dose: 175 mls/hr Nicotine (Nicotine Inhaler*) 10 mg INH Q2H PRN PRN Reason: CRAVING Last Admin: 03/06/17 15:52 Dose: 10 mg Ondansetron HCl (Zofran Inj*) 4 mg IV Q6H PRN PRN Reason: NAUSEA Last Admin: 03/07/17 11:07 Dose: 4 mg Oxycodone HCl (Roxycodone Tab*) 10 mg PO Q4H PRN PRN Reason: PAIN Last Admin: 03/07/17 10:26 Dose: 10 mg Quetiapine Fumarate (Seroquel Tab*) 25 mg PO DAILY [facility] Last Admin: 03/07/17 08:40 Dose: 25 mg Vital Signs 0903/07/17 03/07/17 08:00 08:40 09:40 Temperature Pulse Rate Respiratory 16 18 18 Rate Blood Pressure (mmHg) O2 Sat by Pulse Oximetry 03/07/17 03/07/17 03/07/17 10:23 10:26 11:06 Temperature Pulse Rate Respiratory 18 18 18 Rate Blood Pressure (mmHg) O2 Sat by Pulse Oximetry 03/07/17 03/07/17 03/07/17 11:32 12:06 12:23 Temperature 98.0 F Pulse Rate 62 Respiratory 16 16 16 Rate Blood Pressure 142/79 (mmHg) O2 Sat by Pulse 97 Oximetry Oxygen Devices in Use Now: None Appearance: 36 yo female laying in bed A+O x3 in NAD Eyes: No Scleral Icterus, PERRLA Ears/Nose/Mouth/Throat: NL Teeth, Lips, Gums, Mucous Membranes Moist Neck: NL Appearance and Movements; NL JVP Respiratory: Symmetrical Chest Expansion and Respiratory Effort, Clear to Auscultation Cardiovascular: NL Sounds; No Murmurs; No JVD, RRR, No Edema Abdominal: - - mildly bloated in upper mid abdomen with tenderness; + BS, soft throughout. mild guarding. no rebound. Extremities: No Edema, No Clubbing, Cyanosis Skin: No Rash or Ulcers, No Nodules or Sclerosis Neurological: Alert and Oriented x 3, NL Sensation, NL Gait, NL Muscle Strength and Tone Lines/Tubes/Other Access: Clean, Dry and Intact Peripheral IV Nutrition: Taking PO's - clears, - Result Diagrams: 03/06/17 07:48 03/06/17 07:48 Additional Lab and Data: Lab Results 03/06/17 03/06/17 03/06/17 Range/Units 02:45 02:45 02:45 WBC 14.1 H (3.5-10.8) 10^3/ul RBC 5.37 (4.0-5.4) 10^6/ul Hgb 15.7 (12.0-16.0) g/dl Hct 48 H (35-47) % MCV 89 (80-97) fL MCH 29 (27-31) pg MCHC 33 (31-36) g/dl RDW 20 H (10.5-15) % Plt Count 405 (150-450) 10^3/ul MPV 8 (7.4-10.4) um3 Neut % (Auto) 62.9 (38-83) % Lymph % (Auto) 23.9 L (25-47) % [place] % (Auto) 8.4 (1-9) % Eos % (Auto) 3.6 (0-6) % Baso % (Auto) 1.2 (0-2) % Absolute Neuts (auto) 8.9 H (1.5-7.7) 10^3/ul Absolute Lymphs (auto) 3.4 (1.0-4.8) 10^3/ul Absolute Monos (auto) 1.2 H (0-0.8) 10^3/ul Absolute Eos (auto) 0.5 (0-0.6) 10^3/ul Absolute Basos (auto) 0.2 (0-0.2) 10^3/ul Absolute Nucleated RBC 0 10^3/ul Nucleated RBC % 0 Sodium 139 (133-145) mmol/L Potassium 3.9 (3.5-5.0) mmol/L Chloride 108 (101-111) mmol/L Carbon Dioxide 21 L (22-32) mmol/L Anion Gap 10 (2-11) mmol/L BUN 11 (6-24) mg/dL Creatinine 0.80 (0.51-0.95) mg/dL Est GFR ( Amer) 105.0 (>60) Est GFR (Non-Af Amer) 81.6 (>60) BUN/Creatinine Ratio 13.8 (8-20) Glucose 146 H (70-100) mg/dL Lactic Acid 1.9 (0.5-2.0) mmol/L Calcium 8.9 (8.6-10.3) mg/dL Total Bilirubin 0.30 (0.2-1.0) mg/dL AST 23 (13-39) U/L ALT 18 (7-52) U/L Alkaline Phosphatase 82 (34-104) U/L C-Reactive Protein 17.07 H (< 5.00) mg/L Total Protein 7.6 (6.4-8.9) g/dL Albumin 4.1 (3.2-5.2) g/dL Globulin 3.5 (2-4) g/dL Albumin/Globulin Ratio 1.2 (1-3) Amylase 141 H (29-103) U/L Lipase 497 H (11.0-82.0) U/L Beta HCG, Quant 0.73 mIU/mL Urine Color Urine Appearance Urine pH (5-9) Ur Specific [place] (1.010-1.030) Urine Protein (Negative) Urine Ketones (Negative) Urine Blood (Negative) Urine Nitrate (Negative) Urine Bilirubin (Negative) Urine Urobilinogen (Negative) Ur Leukocyte Esterase (Negative) Urine Glucose (Negative) 03/06/17 Range/Units 02:45 WBC (3.5-10.8) 10^3/ul RBC (4.0-5.4) 10^6/ul Hgb (12.0-16.0) g/dl Hct (35-47) % MCV (80-97) fL MCH (27-31) pg MCHC (31-36) g/dl RDW (10.5-15) % Plt Count (150-450) 10^3/ul MPV (7.4-10.4) um3 Neut % (Auto) (38-83) % Lymph % (Auto) (25-47) % [place] % (Auto) (1-9) % Eos % (Auto) (0-6) % Baso % (Auto) (0-2) % Absolute Neuts (auto) (1.5-7.7) 10^3/ul Absolute Lymphs (auto) (1.0-4.8) 10^3/ul Absolute Monos (auto) (0-0.8) 10^3/ul Absolute Eos (auto) (0-0.6) 10^3/ul Absolute Basos (auto) (0-0.2) 10^3/ul Absolute Nucleated RBC 10^3/ul Nucleated RBC % Sodium (133-145) mmol/L Potassium (3.5-5.0) mmol/L Chloride (101-111) mmol/L Carbon Dioxide (22-32) mmol/L Anion Gap (2-11) mmol/L BUN (6-24) mg/dL Creatinine (0.51-0.95) mg/dL Est GFR ( Amer) (>60) Est GFR (Non-Af Amer) (>60) BUN/Creatinine Ratio (8-20) Glucose (70-100) mg/dL Lactic Acid (0.5-2.0) mmol/L Calcium (8.6-10.3) mg/dL Total Bilirubin (0.2-1.0) mg/dL AST (13-39) U/L ALT (7-52) U/L Alkaline Phosphatase (34-104) U/L C-Reactive Protein (< 5.00) mg/L Total Protein (6.4-8.9) g/dL Albumin (3.2-5.2) g/dL Globulin (2-4) g/dL Albumin/Globulin Ratio (1-3) Amylase (29-103) U/L Lipase (11.0-82.0) U/L Beta HCG, Quant mIU/mL Urine Color Yellow Urine Appearance Cloudy Urine pH 7.0 (5-9) Ur Specific [place] 1.013 (1.010-1.030) Urine Protein Negative (Negative) Urine Ketones Negative (Negative) Urine Blood Negative (Negative) Urine Nitrate Negative (Negative) Urine Bilirubin Negative (Negative) Urine Urobilinogen Negative (Negative) Ur Leukocyte Esterase Negative (Negative) Urine Glucose Negative (Negative) Assess/Plan/Problems-Billing Assessment: 36 yo female with PMH of 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 - Patient Problems (1) Acute pancreatitis Status: Acute Comment: recurrent alcoholic pancreatitis. Lipase trending down, decreased to 294 (from 497) yesterday - no labs today - plan to send labs now. Improving clinically but continues to have adbominal pain. No signs of sepsis. continue clears, Continue IV fluids, analgesics. Social work consult for ETOH abuse. (2) Tobacco abuse Comment: - Not motivated to quit at this time. - Continue nicotine patch. - smoking cessation (3) DVT prophylaxis Comment: - SQ heparin. (4) Full code status Status and Disposition: inpatient with recurrent alcoholic pancreatitis.
[2017-03-07 16:21] LABS: Hematocrit 40 % (35-47); Mean Corpuscular HGB Conc 33 g/dl (31-36); Mean Corpuscular Hemoglobin 29 pg (27-31); Mean Corpuscular Volume 88 fL (80-97); Mean Platelet Volume 8 um3 (7.4-10.4); Red Blood Count 4.47 10^6/ul (4.0-5.4); Red Cell Distribution Width 19 % (10.5-15); White Blood Count 6.8 10^3/ul (3.5-10.8)
[2017-03-07 16:34] LABS: Albumin 3.3 g/dL (3.2-5.2); BUN/Creatinine Ratio 8.2 (8-20); Calcium 8.8 mg/dL (8.6-10.3); EGFR African American 143.5 (>60); EGFR Non-African American 111.6 (>60); Globulin 2.9 g/dL (2-4); Magnesium 1.9 mg/dL (1.9-2.7); Potassium 3.5 mmol/L (3.5-5.0); Total Bilirubin 0.4 mg/dL (0.2-1.0); Total Protein 6.2 g/dL (6.4-8.9)
[2017-03-07] MEDS ORDERED: Influenza VAC *QUAD* 2017-18* 0.5 ML SYRINGE IM ONE (17:00)
[2017-03-08] MEDS: oxyCODONE TAB* 5 MG TAB PO PRN ×3 (00:05→09:51)
[2017-03-08] MEDS: Omeprazole CAP* 20 MG PO SCH ×3 (00:34→09:32)
[2017-03-08] MEDS: HYDROmorphone* 1 MG/ML 1 ML SYR IV PRN ×3 (00:45→08:48)
[2017-03-08] MEDS ORDERED: Mouth Piece, Nicotine* 1 EACH CARTRIDGE ONE (01:06)
[2017-03-08] MEDS: Nicotine Inhaler* 10 MG AMP INH PRN (01:07)
[2017-03-08] MEDS: Heparin VIAL(*) 5000 UNITS/ML VIAL (FIVE THOUSAND) SUBCUT SCH (05:33)
[2017-03-08 07:51] LABS: Hematocrit 39 % (35-47); Hemoglobin 12.9 g/dl (12.0-16.0); Mean Corpuscular HGB Conc 33 g/dl (31-36); Mean Corpuscular Hemoglobin 29 pg (27-31); Mean Corpuscular Volume 88 fL (80-97); Mean Platelet Volume 8 um3 (7.4-10.4); Red Blood Count 4.43 10^6/ul (4.0-5.4); Red Cell Distribution Width 19 % (10.5-15); White Blood Count 6.6 10^3/ul (3.5-10.8)
[2017-03-08 07:56] VITALS: BP 160/100
[2017-03-08 08:02] LABS: Albumin 3.4 g/dL (3.2-5.2); BUN/Creatinine Ratio 7.6 (8-20); Calcium 8.9 mg/dL (8.6-10.3); EGFR African American 131.1 (>60); EGFR Non-African American 101.9 (>60); Globulin 2.6 g/dL (2-4); Magnesium 1.9 mg/dL (1.9-2.7); Potassium 3.6 mmol/L (3.5-5.0); Total Bilirubin 0.4 mg/dL (0.2-1.0)
[2017-03-08] MEDS: Gabapentin CAP(*) 300 MG PO SCH (08:48)
[2017-03-08] MEDS: QUEtiapine TAB* 25 MG PO SCH (08:48)
[2017-03-08] MEDS ORDERED: Omeprazole CAP* 20 MG PO ONE (09:32)
[2017-03-08] MEDS: Famotidine IV* 10 MG/ML 2 ML (20 mg) IV SLOW PU SCH (09:32)
--- NOTE | 2017-03-08 12:46 | DCNOTE ---
Subjective Date of Service: 03/08/17 Interval History: Patient reports she feels better today with less abdominal pain but continues to have sharp underlying upper abdominal pain rating it a 3/10. No fever/ chills. No N/V/D. Has increased appetite and tolerating diet well w/o an increase in pain. Reports BM today. Would like to go home which is reasonable at this time as she has been discontinued off IV diluadid, her enzymes have normalized and no signs of infection. In regards to her recently treated asthma exacerbation she reports she feels better. Denies SOB or wheezing Discussed discharge plan with patient at length. She is not interested in quitting smoking. She reports she plans to never drink alcohol again and realizes she cant even have 1 drink. She isn't interested in outpt treatment stating she has not been drinking, she is aware of resources if she feels that she needs help. She is being followed closely by her primary and is being sent to the pain clinic. She has a hx of opioid abuse in which she states was many years ago, she was recently treated with oxycodone by PCP for chronic back pain and that is why she is being referred to pain clinic. Objective Active Medications: Acetaminophen (Tylenol Supp*) 650 mg [place] Q6H PRN PRN Reason: FEVER/PAIN Albuterol (Ventolin 2.5 Mg/3 Ml Neb.Apple*) 2.5 mg INH Q2H PRN PRN Reason: SOB/WHEEZING Gabapentin (Neurontin Cap(*)) 300 mg PO TID [facility] Last Admin: 03/08/17 08:48 Dose: 300 mg Heparin Sodium (Porcine) (Heparin Vial(*)) 5,000 units SUBCUT Q8HR [facility] Last Admin: 03/08/17 05:33 Dose: Not Given Nicotine (Nicotine Inhaler*) 10 mg INH Q2H PRN PRN Reason: CRAVING Last Admin: 03/08/17 01:07 Dose: 10 mg Omeprazole (Prilosec Cap*) 40 mg PO DAILY [facility] Last Admin: 03/08/17 09:32 Dose: Not Given Ondansetron HCl (Zofran Inj*) 4 mg IV Q6H PRN PRN Reason: NAUSEA Last Admin: 03/07/17 11:07 Dose: 4 mg Oxycodone HCl (Roxycodone Tab*) 10 mg PO Q4H PRN PRN Reason: PAIN Last Admin: 03/08/17 09:51 Dose: 10 mg Quetiapine Fumarate (Seroquel Tab*) 25 mg PO DAILY [facility] Last Admin: 03/08/17 08:48 Dose: 25 mg Vital Signs 03/07/17 03/07/17 03/07/17 13:20 14:20 14:42 Temperature Pulse Rate Respiratory 18 18 18 Rate Blood Pressure (mmHg) O2 Sat by Pulse Oximetry 03/07/17 03/07/17 03/07/17 15:20 15:46 15:49 Temperature 97.6 F Pulse Rate 63 Respiratory 18 16 18 Rate Blood Pressure 143/85 (mmHg) O2 Sat by Pulse 99 Oximetry 03/07/17 03/07/17 03/07/17 16:42 18:12 19:06 Temperature 98.2 F Pulse Rate 72 Respiratory 18 18 16 Rate Blood Pressure 131/76 (mmHg) O2 Sat by Pulse 98 Oximetry 03/07/17 03/07/17 03/07/17 19:12 19:21 20:00 Temperature Pulse Rate Respiratory 18 18 18 Rate Blood Pressure (mmHg) O2 Sat by Pulse Oximetry 03/07/17 03/07/17 03/07/17 20:44 20:45 21:21 Temperature Pulse Rate Respiratory 18 18 16 Rate Blood Pressure (mmHg) O2 Sat by Pulse Oximetry 03/07/17 03/07/17 03/07/17 21:44 22:45 23:40 Temperature 97.7 F Pulse Rate 71 Respiratory 16 18 20 Rate Blood Pressure 150/89 (mmHg) O2 Sat by Pulse 100 Oximetry 03/08/17 03/08/17 03/08/17 00:05 00:45 01:45 Temperature Pulse Rate Respiratory 18 18 14 Rate Blood Pressure (mmHg) O2 Sat by Pulse Oximetry 03/08/17 03/08/17 03/08/17 02:05 05:32 06:36 Temperature Pulse Rate Respiratory 14 16 18 Rate Blood Pressure (mmHg) O2 Sat by Pulse Oximetry 03/08/17 03/08/17 03/08/17 07:35 07:36 07:42 Temperature 97.5 F Pulse Rate 66 Respiratory 16 18 20 Rate Blood Pressure 160/100 (mmHg) O2 Sat by Pulse 98 Oximetry 03/08/17 03/08/17 03/08/17 08:48 09:51 10:48 Temperature Pulse Rate Respiratory 15 17 18 Rate Blood Pressure (mmHg) O2 Sat by Pulse Oximetry Oxygen Devices in Use Now: None Appearance: 36 yo female laying in bed in NAD, A+O x3 Eyes: No Scleral Icterus, PERRLA Ears/Nose/Mouth/Throat: NL Teeth, Lips, Gums, Mucous Membranes Moist Neck: NL Appearance and Movements; NL JVP Respiratory: Symmetrical Chest Expansion and Respiratory Effort, Clear to Auscultation Cardiovascular: NL Sounds; No Murmurs; No JVD, RRR, No Edema Abdominal: - - soft, nondistended; mild tenderness mid-upper quad; no guarding; Nl BS Extremities: No Edema, No Clubbing, Cyanosis Skin: No Rash or Ulcers, No Nodules or Sclerosis Neurological: Alert and Oriented x 3, NL Sensation, NL Gait, NL Muscle Strength and Tone Lines/Tubes/Other Access: Clean, Dry and Intact Peripheral IV Nutrition: Taking PO's Result Diagrams: 03/08/17 07:38 03/08/17 07:38 Additional Lab and Data: Lab Results 03/06/17 03/06/17 03/06/17 Range/Units 02:45 02:45 02:45 WBC 14.1 H (3.5-10.8) 10^3/ul RBC 5.37 (4.0-5.4) 10^6/ul Hgb 15.7 (12.0-16.0) g/dl Hct 48 H (35-47) % MCV 89 (80-97) fL MCH 29 (27-31) pg MCHC 33 (31-36) g/dl RDW 20 H (10.5-15) % Plt Count 405 (150-450) 10^3/ul MPV 8 (7.4-10.4) um3 Neut % (Auto) 62.9 (38-83) % Lymph % (Auto) 23.9 L (25-47) % [place] % (Auto) 8.4 (1-9) % Eos % (Auto) 3.6 (0-6) % Baso % (Auto) 1.2 (0-2) % Absolute Neuts (auto) 8.9 H (1.5-7.7) 10^3/ul Absolute Lymphs (auto) 3.4 (1.0-4.8) 10^3/ul Absolute Monos (auto) 1.2 H (0-0.8) 10^3/ul Absolute Eos (auto) 0.5 (0-0.6) 10^3/ul Absolute Basos (auto) 0.2 (0-0.2) 10^3/ul Absolute Nucleated RBC 0 10^3/ul Nucleated RBC % 0 Sodium 139 (133-145) mmol/L Potassium 3.9 (3.5-5.0) mmol/L Chloride 108 (101-111) mmol/L Carbon Dioxide 21 L (22-32) mmol/L Anion Gap 10 (2-11) mmol/L BUN 11 (6-24) mg/dL Creatinine 0.80 (0.51-0.95) mg/dL Est GFR ( Amer) 105.0 (>60) Est GFR (Non-Af Amer) 81.6 (>60) BUN/Creatinine Ratio 13.8 (8-20) Glucose 146 H (70-100) mg/dL Lactic Acid 1.9 (0.5-2.0) mmol/L Calcium 8.9 (8.6-10.3) mg/dL Total Bilirubin 0.30 (0.2-1.0) mg/dL AST 23 (13-39) U/L ALT 18 (7-52) U/L Alkaline Phosphatase 82 (34-104) U/L C-Reactive Protein 17.07 H (< 5.00) mg/L Total Protein 7.6 (6.4-8.9) g/dL Albumin 4.1 (3.2-5.2) g/dL Globulin 3.5 (2-4) g/dL Albumin/Globulin Ratio 1.2 (1-3) Amylase 141 H (29-103) U/L Lipase 497 H (11.0-82.0) U/L Beta HCG, Quant 0.73 mIU/mL Urine Color Urine Appearance Urine pH (5-9) Ur Specific [place] (1.010-1.030) Urine Protein (Negative) Urine Ketones (Negative) Urine Blood (Negative) Urine Nitrate (Negative) Urine Bilirubin (Negative) Urine Urobilinogen (Negative) Ur Leukocyte Esterase (Negative) Urine Glucose (Negative) 03/06/17 Range/Units 02:45 WBC (3.5-10.8) 10^3/ul RBC (4.0-5.4) 10^6/ul Hgb (12.0-16.0) g/dl Hct (35-47) % MCV (80-97) fL MCH (27-31) pg MCHC (31-36) g/dl RDW (10.5-15) % Plt Count (150-450) 10^3/ul MPV (7.4-10.4) um3 Neut % (Auto) (38-83) % Lymph % (Auto) (25-47) % [place] % (Auto) (1-9) % Eos % (Auto) (0-6) % Baso % (Auto) (0-2) % Absolute Neuts (auto) (1.5-7.7) 10^3/ul Absolute Lymphs (auto) (1.0-4.8) 10^3/ul Absolute Monos (auto) (0-0.8) 10^3/ul Absolute Eos (auto) (0-0.6) 10^3/ul Absolute Basos (auto) (0-0.2) 10^3/ul Absolute Nucleated RBC 10^3/ul Nucleated RBC % Sodium (133-145) mmol/L Potassium (3.5-5.0) mmol/L Chloride (101-111) mmol/L Carbon Dioxide (22-32) mmol/L Anion Gap (2-11) mmol/L BUN (6-24) mg/dL Creatinine (0.51-0.95) mg/dL Est GFR ( Amer) (>60) Est GFR (Non-Af Amer) (>60) BUN/Creatinine Ratio (8-20) Glucose (70-100) mg/dL Lactic Acid (0.5-2.0) mmol/L Calcium (8.6-10.3) mg/dL Total Bilirubin (0.2-1.0) mg/dL AST (13-39) U/L ALT (7-52) U/L Alkaline Phosphatase (34-104) U/L C-Reactive Protein (< 5.00) mg/L Total Protein (6.4-8.9) g/dL Albumin (3.2-5.2) g/dL Globulin (2-4) g/dL Albumin/Globulin Ratio (1-3) Amylase (29-103) U/L Lipase (11.0-82.0) U/L Beta HCG, Quant mIU/mL Urine Color Yellow Urine Appearance Cloudy Urine pH 7.0 (5-9) Ur Specific [place] 1.013 (1.010-1.030) Urine Protein Negative (Negative) Urine Ketones Negative (Negative) Urine Blood Negative (Negative) Urine Nitrate Negative (Negative) Urine Bilirubin Negative (Negative) Urine Urobilinogen Negative (Negative) Ur Leukocyte Esterase Negative (Negative) Urine Glucose Negative (Negative) Assess/Plan/Problems-Billing Assessment: 36 yo female with PMH of 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 - Patient Problems (1) Acute pancreatitis Status: Acute Comment: recurrent alcoholic pancreatitis. Lipase normal today. No signs of sepsis. Clinically improving. continue clears advancing as tolerates, continue analgesics. Social work consult for ETOH abuse. (2) Tobacco abuse Comment: - Not motivated to quit at this time. - Continue nicotine patch. - smoking cessation (3) DVT prophylaxis Comment: - SQ heparin. (4) Full code status Status and Disposition: inpatient with recurrent alcoholic pancreatitis. Plan for DC to home today. Plan for f/u with GI as outpt and f/u closely with PCP
--- NOTE | 2017-03-09 07:53 | DS ---
CC: Malina Blount NP * DISCHARGE SUMMARY: DATE OF ADMISSION: 03/06/17 DATE OF DISCHARGE: 03/08/17 PROVIDER: AHMET Mobley ATTENDING PHYSICIAN: Dr. Ivy * (report dictated by Genesis Newell NP) PRIMARY CARE PROVIDER: Malina Blount NP DISCHARGE DIAGNOSIS: Recurrent alcoholic pancreatitis. SECONDARY DIAGNOSES: 1. Chronic lower back pain. 2. Asthma. HISTORY OF PRESENT ILLNESS AND HOSPITAL COURSE: Please see history and physical by Dr. Sheth for full admission details, but in summary this is a 36-year-old female, who was admitted to [facility] back in October of this year for acute alcoholic pancreatitis, complicated by healthcare- associated pneumonia. This was her first event with pancreatitis and since that time, she has been doing well and has been abstaining from alcohol up until this past week where she had a narcisa and reports she developed epigastric pain the next morning, which progressed in severity and began associated with fever, chills, nausea, vomiting, and diarrhea. She presented to the emergency department on 03/06/17 at that time. The patient was admitted to the hospitalist service for acute alcoholic pancreatitis and on admission, had a lipase of 497 and amylase of 141. LFTs have remained normal. Her lipase has trended down every day and today has normalized at 76. Initially, on admission, she was made n.p.o. Pain was controlled with IV Dilaudid and she was started on normal saline at 125 mL an hour. The next day after admission, she was switched to LR at 175 mL an hour, which she received approximately 24 hours. The patient has done well throughout her hospitalization, improving daily. She initially had a leukocytosis of 14K on admission, which resolved the next day. She has remained afebrile throughout hospitalization. Other labs have been fairly unremarkable. Today, the patient is stable for discharge to home and she continues to have some mid upper quad abdominal pain; however, this has improved daily. She has tolerated a soft diet without increase in pain. Nausea, vomiting, diarrhea resolved the day of admission and she reports normal bowel movements. Today, the patient feels that she could go home and is stable to do so. In regards to the patient's history of alcohol abuse, she reports that she has not been drinking since October and realizes now that she cannot even an occasional drink. She was seen by Social Work, who provided her with information regarding outpatient treatment. However, the patient states that she does not feel like that she needs this at this time. As well, smoking cessation was discussed with the patient. The patient is not interested at this time to quit smoking. The patient has a distant history of opiate abuse reporting she went to rehab many years ago. She recently has had an exacerbation in low back pain and then followed by her primary closely and has received oxycodone p.r.n. and is currently being referred to the pain clinic. She is to have her first appointment within the next couple of weeks. We discussed her history of opiate abuse on discharge and the patient feels confident with close followups with her primary as well as the pain clinic that discharging her home on oxycodone now for pain control of the pancreatitis would not be a problem. Her pain has been difficult to control with non-opiate forms of medication. The patient will only be sent home on a 4-day supply. She is to follow up with her primary care early this week. The patient requested a prescription for Seroquel on discharge reporting this was prescribed to her from the provider in the hospital. She is unclear of the details, but reports that she has been taking this for the past 2 months. I have written a 5-day prescription for the patient and I am referring her back to her primary care provider to continue a prescription for this medication. I also encouraged the patient to follow up with a psychiatrist. Due to this being an antipsychotic, she should be evaluated as well as she would benefit from counseling. DISCHARGE MEDICATIONS: 1. Oxycodone 10 mg p.o. q.4 hours p.r.n., max daily dose 6 tabs. 2. Seroquel 25 mg p.o. daily. 3. Omeprazole 40 mg p.o. daily. 4. Gabapentin 300 mg p.o. t.i.d. 5. Hydroxyzine 25 mg p.o. q.8 hours p.r.n. DISCHARGE PLANNIN. Follow up with Malina Blount NP, this week. 2. Discussed speaking with PCP about referral to psychiatrist for prescription of Seroquel as well as she would benefit from counseling. 3. The patient has scheduled first appointment with the pain clinic. 4. Referral to gastroenterology services. The patient was instructed to call tomorrow to follow up with GI in regards to her recurrent pancreatitis. 5. The patient was instructed to return with any worsening or concerning symptoms. GENESIS NEWELL, VIMAL [id number]/[facility] #: [id number] LILI
== END 2017-03-08 13:50 | disposition home or self-care (01) | DRG 282 ==
LOC: ED 02:21 → MEDTELE 04:12
PROVIDERS: ADMIT Hospitalist; ATTEND Internal Medicine
DX: K85.20 Alcohol induced acute pancreatitis without necrosis or infection (principal); F17.210 Nicotine dependence, cigarettes, uncomplicated; J45.909 Unspecified asthma, uncomplicated; Z79.2 Long term (current) use of antibiotics; Z80.3 Family history of malignant neoplasm of breast; Z79.891 Long term (current) use of opiate analgesic; Z79.899 Other long term (current) drug therapy; Z88.1 Allergy status to other antibiotic agents; Z88.5 Allergy status to narcotic agent; Z88.8 Allergy status to other drugs, medicaments and biological substances
CPT/HCPCS: 36415; 80048; 80053; 80061; 80320; 81003; 82150; 83605; 83690; 83735; 84702; 85025; 86140; 99406; A9270-GY; G0480; J1170; J1644; J2405

== ENCOUNTER 2017-04-16 15:21 | Emergency (ER) | payer OTHER ==
[2017-04-16 15:28] VITALS: BP 140/102
[2017-04-16] MEDS ORDERED: oxyCODONE/Acetamin 5/325 MG* TAB PO ONE ×2 (16:15→17:07)
[2017-04-16] MEDS ORDERED: Ketorolac INJ* 60 MG/2 ML VIAL IM ONE (16:15)
[2017-04-16] MEDS ORDERED: oxyCODONE/Acetamin 10/325(NF) TAB PO ONE (16:16)
--- NOTE | 2017-04-16 16:31 | ED ---
Throat Pain/Nasal Congestion - HPI Summary HPI Summary: Pt here w/ oral pain s/p dental extraction earlier today. She reports declining pain medication as she didn't want to get "hooked again". H/o abuse with opiates which started back when she had back pain. Unfortunately, she is in so much pain at the moment, she is not coping with it well. Would like a one time dose of opiate for pain now and 1 to go home with in case pain is still bad tomorrow morning. She does not want more than this as she does not the opportunity to abuse them. ISTOP reports she was rx'd a 7 day supply of oxycodone 5 mg on 04/13/2017 through her PCP. She appears to have a regular rx for this through her PCP. Pt reports she has pancreatitis she's trying to control with oxycodone 5mg - has been doing well with this dose. Requesting 10mg today as pain is worse than other pain. - History of Current Complaint Chief Complaint: EDDentalPain Time Seen by Provider: 04/16/17 15:43 Hx Obtained From: Patient - Allergies/Home Medications Allergies/Adverse Reactions: Allergies Allergy/AdvReac Type Severity Reaction Status Date / Time Ciprofloxacin [From Cipro] Allergy Intermediate Difficulty Verified 03/06/17 03: 01 Breathing/Wheezing Codeine Allergy Mild Hives Verified 03/06/17 03:01 Cephalexin [From Keflex] AdvReac Mild Palpitation Verified 03/06/17 03:01 s Azithromycin AdvReac Vomiting Verified 03/06/17 03:01 PMH/Surg Hx/FS Hx/Imm Hx Previously Healthy: Yes Endocrine/Hematology History: Denies: Hx Diabetes Cardiovascular History: Denies: Hx Hypercholesterolemia, Hx Hypertension Respiratory History: Reports: Other Respiratory Problems/Disorders - pt reports sob-uncertain etiology BRONCHITIS Denies: Hx Asthma History: Reports: Other Problems/Disorders - Hx pancreatitis Musculoskeletal History: Reports: Hx Back Problems Sensory History: Denies: Hx Contacts or Glasses, Hx Hearing Aid Opthamlomology History: Denies: Hx Contacts or Glasses Neurological History: Reports: Hx Headaches Psychiatric History: Reports: Hx Substance Abuse - alcohol Denies: Hx Eating Disorder, Hx of Violent Episodes Against Others - Immunization History Immunizations Up to Date: Yes Infectious Disease History: No Infectious Disease History: Denies: Hx Clostridium Difficile, Hx Hepatitis, Hx Human Immunodeficiency Virus (HIV), Hx of Known/Suspected MRSA, Hx Shingles, Hx Tuberculosis, History Other Infectious Disease, Traveled Outside the [place] in Last 30 Days - Family History Known Family History: Positive: Other - cervical CA, brain tumor - Social History Lives: With Family Alcohol Use: None Alcohol Amount: LITER OV VODKA, SEVERAL BEERS Substance Use Type: Reports: None Substance Use Comment - Amount & Last Used: opiates Hx Tobacco Use: Yes Smoking Status (MU): Current Every Day Smoker Type: Cigarettes Amount Used/How Often: 1PPD Have You Smoked in the Last Year: Yes Review of Systems Positive: Chills - from pain. Negative: Fever Eyes: Negative Positive: Dental Pain - see HPI Cardiovascular: Negative Negative: Chest Pain Respiratory: Negative Negative: Shortness Of Breath Gastrointestinal: Negative Negative: Vomiting, Nausea Positive: no symptoms reported Musculoskeletal: Negative Skin: Negative Neurological: Negative Positive: Anxious All Other Systems Reviewed And Are Negative: Yes Physical Exam Triage Information Reviewed: Yes Vital Signs On Initial Exam: Initial Vitals Temp Pulse Resp BP Pulse Ox 96.9 F 111 17 140/102 99 04/16/17 15:25 04/16/17 15:25 04/16/17 15:25 04/16/17 15:25 04/16/17 15:25 Vital Signs Reviewed: Yes Appearance: Positive: Well-Appearing, Well-Nourished, Pain Distress - tearful, holding ice over mouth Skin: Positive: Warm, Dry Head/Face: Positive: Normal Head/Face Inspection Eyes: Positive: Normal, EOMI ENT: Positive: Hearing grossly normal Dental: Positive: Other - edentulous - gingiva w/ edema and mild bleeding in areas Respiratory/Lung Sounds: Positive: Breath Sounds Present. Negative: Stridor Cardiovascular: Positive: Normal Musculoskeletal: Positive: Normal, Strength/ROM Intact Neurological: Positive: Normal, Sensory/Motor Intact, Alert, Oriented to Person Place, Time, CN Intact II-III Psychiatric: Positive: Anxious - but consolable - [place] Coma Scale Coma Scale Total: 15 Diagnostics - Vital Signs Vital Signs Temp Pulse Resp BP Pulse Ox 04/16/17 15:25 96.9 F 111 17 140/102 99 - Laboratory Lab Statement: Any lab studies that have been ordered have been reviewed, and results considered in the medical decision making process. EENT Course/Dx - Course Course Of Treatment: Pt presents w/ oral pain s/p dental procedure today. She declined pain medication from office as she has h/o narcotic abuse and wants to avoid this. Ordered percocet for her here today and she declined stating she's allergic to acetaminophen (not in file). Ordered 1 time dose here and pt may follow-up with dentist or PCP for additional pain medication as she appears to have had oxycodone rx'd on 04/13 for a 7 day supply. Encouraged supportive care with saline rinses and return to ED if develop fever, chills, trouble breathing or swallowing. - Diagnoses Provider Diagnoses: Pain following oral surgery Discharge - Discharge Plan Condition: Stable Disposition: HOME Patient Education Materials: Acute Dental Trauma (ED) Referrals: Malina Blount NP [Primary Care Provider] - Additional Instructions: Warm oral saline rinses 5-6 times a day Ice face for pain/swelling Take ibuprofen with food for pain/swelling You may take percocet 5/325mg 1-2 tabs every 6 hours for pain - you were sent home with 2 pills per your request *If you have persistent pain, follow-up with PCP or dentist *If you feel you are relapsing with opiate addiction, seek aid through PCP
[2017-04-16] MEDS ORDERED: oxyCODONE TAB* 5 MG TAB PO ONE (17:17)
== END 2017-04-16 17:26 | disposition home or self-care (01) ==
LOC: ED 15:21
DX: G89.18 Other acute postprocedural pain (principal); K08.89 Other specified disorders of teeth and supporting structures; F17.210 Nicotine dependence, cigarettes, uncomplicated; Z88.5 Allergy status to narcotic agent
CPT/HCPCS: 99282; A9270-GY; J1885

== ENCOUNTER 2017-06-08 16:20 | Emergency (ER) | payer OTHER ==
[2017-06-08 18:19] LABS: Hematocrit 43 % (35-47); Hemoglobin 14.4 g/dl (12.0-16.0); Mean Corpuscular HGB Conc 34 g/dl (31-36); Mean Corpuscular Hemoglobin 31 pg (27-31); Mean Corpuscular Volume 91 fL (80-97); Mean Platelet Volume 9 um3 (7.4-10.4); Red Blood Count 4.69 10^6/ul (4.0-5.4); Red Cell Distribution Width 14 % (10.5-15); White Blood Count 7.7 10^3/ul (3.5-10.8)
[2017-06-08 18:36] LABS: ALT 12 U/L (7-52); AST 20 U/L (13-39); Albumin 4.2 g/dL (3.2-5.2); Alkaline Phosphatase 54 U/L (34-104); Anion Gap 4 mmol/L (2-11); BUN/Creatinine Ratio 7.7 (8-20); Blood Urea Nitrogen 6 mg/dL (6-24); CO2 Carbon Dioxide 27 mmol/L (22-32); Calcium 9.7 mg/dL (8.6-10.3); Chloride 103 mmol/L (101-111); EGFR African American 108.1 (>60); Globulin 3.1 g/dL (2-4); Glucose 84 mg/dL (70-100); Lipase 18 U/L (11.0-82.0); Potassium 3.5 mmol/L (3.5-5.0); Sodium 134 mmol/L (133-145); Total Protein 7.3 g/dL (6.4-8.9)
[2017-06-08 19:07] LABS: Urine Bacteria 1+ (Absent)
[2017-06-08] MEDS ORDERED: NS 0.9% 1000 ML* 1,000 ML IV ONE (20:09)
[2017-06-08] MEDS ORDERED: Ketorolac INJ* 30 MG/ML 1 ML VIAL IV PUSH ONE (20:10)
--- NOTE | 2017-06-08 20:52 | RAD ---
CLINICAL HISTORY: Left flank pain, left upper quadrant pain COMPARISON: November 18, 2016 TECHNIQUE: Multiple contiguous axial CT scans were obtained of the abdomen and pelvis, without intravenous contrast enhancement. Coronal and sagittal multiplanar reformations are submitted for review. Oral contrast was not administered. FINDINGS: The study is limited by the lack of intravenous contrast. This limits evaluation of the solid organs and vasculature. LUNG BASES: The lung bases are clear. LIVER: The liver is normal in shape, size, contour, and attenuation. BILE DUCTS: There is no intrahepatic or extrahepatic biliary dilatation. GALLBLADDER: The gallbladder is normal, without pericholecystic inflammatory change. PANCREAS: The pancreas is normal, without mass or ductal dilatation. SPLEEN: Normal in size and appearance. UPPER GI TRACT: Evaluation of the gastrointestinal tract is limited by incomplete gastric distention. The upper GI tract is unremarkable. SMALL BOWEL AND MESENTERY: The small bowel is normal in contour, course, and caliber. There is no obstruction or dilatation. COLON: The colon is normal in contour, course, caliber. There is no pericolonic inflammatory change. The appendix is not well-visualized. There is no inflammatory change within the right lower quadrant ADRENALS: Normal bilaterally. KIDNEYS: There is a punctate calculus of the left UVJ best seen on axial image 127. There is no hydronephrosis. BLADDER: The bladder is smooth in contour. PELVIC ORGANS: There is a 3.3 cm simple cyst of the right ovary. AORTA: The aorta is normal. IVC: Unremarkable LYMPH NODES: There is no lymphadenopathy by size criteria. ABDOMINAL WALL: There is no evidence for abdominal wall hernia. BONES AND SOFT TISSUES: Unremarkable OTHER: None IMPRESSION: 1. PUNCTATE LEFT UVJ STONE, WITHOUT HYDRONEPHROSIS. 2. RIGHT OVARIAN CYST
[2017-06-08] MEDS ORDERED: oxyCODONE TAB* 5 MG TAB PO ONE (21:45)
[2017-06-08] MEDS ORDERED: Sulfamethox/Trimethoprim DS 800/160* TAB PO ONE (21:45)
--- NOTE | 2017-06-08 21:45 | ED ---
GI/ HPI - HPI Summary HPI Summary: 36F presents with left side flank pain for two weeks. She states that pain is greatest in LUQ. She denies any change in pain with food. she states it feels like the times she has had pancreatitis but she has not had a drink in a month. She denies any vomiting. She admits to occasionally nausea. She denies any diarrhea or constipation. She denies any dysuria or frequency or urgency. She is on her period currently. - History of Current Complaint Chief Complaint: EDGeneral Time Seen by Provider: 06/08/17 20:00 Stated Complaint: LT SIDE FLANK PAIN/SIDE Hx Last Menstrual Period: 2 months ago Pain Intensity: 8 - Additional Pertinent History Primary Care Physician: [id number] - Allergy/Home Medications Allergies/Adverse Reactions: Allergies Allergy/AdvReac Type Severity Reaction Status Date / Time Ciprofloxacin [From Cipro] Allergy Intermediate Difficulty Verified 03/06/17 03: 01 Breathing/Wheezing Codeine Allergy Mild Hives Verified 03/06/17 03:01 Acetaminophen Allergy See Comment Verified 04/16/17 17:32 Cephalexin [From Keflex] AdvReac Mild Palpitation Verified 03/06/17 03:01 s Azithromycin AdvReac Vomiting Verified 03/06/17 03:01 PMH/Surg Hx/FS Hx/Imm Hx Endocrine/Hematology History: Denies: Hx Diabetes Cardiovascular History: Denies: Hx Hypercholesterolemia, Hx Hypertension Respiratory History: Reports: Other Respiratory Problems/Disorders - pt reports sob-uncertain etiology BRONCHITIS Denies: Hx Asthma History: Reports: Other Problems/Disorders - Hx pancreatitis Musculoskeletal History: Reports: Hx Back Problems Sensory History: Denies: Hx Contacts or Glasses, Hx Hearing Aid Opthamlomology History: Denies: Hx Contacts or Glasses Neurological History: Reports: Hx Headaches Psychiatric History: Reports: Hx Substance Abuse - alcohol Denies: Hx Eating Disorder, Hx of Violent Episodes Against Others Infectious Disease History: No Infectious Disease History: Denies: Hx Clostridium Difficile, Hx Hepatitis, Hx Human Immunodeficiency Virus (HIV), Hx of Known/Suspected MRSA, Hx Shingles, Hx Tuberculosis, History Other Infectious Disease, Traveled Outside the [place] in Last 30 Days - Family History Known Family History: Positive: Other - cervical CA, brain tumor - Social History Alcohol Use: None Alcohol Amount: LITER OV VODKA, SEVERAL BEERS Substance Use Type: Reports: None Substance Use Comment - Amount & Last Used: opiates Hx Tobacco Use: Yes Smoking Status (MU): Current Every Day Smoker Type: Cigarettes Amount Used/How Often: 1PPD Have You Smoked in the Last Year: Yes Review of Systems Negative: Fever Negative: Chest Pain Negative: Shortness Of Breath Positive: Abdominal Pain, Nausea. Negative: Vomiting, Diarrhea All Other Systems Reviewed And Are Negative: Yes Physical Exam Triage Information Reviewed: Yes Vital Signs On Initial Exam: Initial Vitals Temp Pulse Resp BP Pulse Ox 98.4 F 96 18 124/92 98 06/08/17 16:33 06/08/17 16:33 06/08/17 16:33 06/08/17 16:33 06/08/17 16:33 Vital Signs Reviewed: Yes Appearance: Positive: Well-Appearing Skin: Positive: Warm, Dry Head/Face: Positive: Normal Head/Face Inspection Eyes: Positive: Normal, EOMI, OWEN, Conjunctiva Clear ENT: Positive: Normal ENT inspection, Pharynx normal, TMs normal Respiratory/Lung Sounds: Positive: Clear to Auscultation, Breath Sounds Present Cardiovascular: Positive: Normal, RRR Abdomen Description: Positive: Soft, CVA Tenderness (L), Other: - tenderness LUQ Bowel Sounds: Positive: Present Musculoskeletal: Positive: Normal Neurological: Positive: Normal Psychiatric: Positive: Normal - [place] Coma Scale Coma Scale Total: 15 Diagnostics - Vital Signs Vital Signs Temp Pulse Resp BP Pulse Ox 06/08/17 20:02 94 13 99 06/08/17 20:00 116/79 06/08/17 19:15 98.2 F 76 20 120/93 99 06/08/17 16:33 98.4 F 96 18 124/92 98 - Laboratory Lab Results: Lab Results 06/08/17 06/08/17 06/08/17 Range/Units 18:10 18:10 18:25 WBC 7.7 (3.5-10.8) 10^3/ul RBC 4.69 (4.0-5.4) 10^6/ul Hgb 14.4 (12.0-16.0) g/dl Hct 43 (35-47) % MCV 91 (80-97) fL MCH 31 (27-31) pg MCHC 34 (31-36) g/dl RDW 14 (10.5-15) % Plt Count 285 (150-450) 10^3/ul MPV 9 (7.4-10.4) um3 Neut % (Auto) 52.6 (38-83) % Lymph % (Auto) 35.3 (25-47) % [place] % (Auto) 7.9 (1-9) % Eos % (Auto) 3.0 (0-6) % Baso % (Auto) 1.2 (0-2) % Absolute Neuts (auto) 4.0 (1.5-7.7) 10^3/ul Absolute Lymphs (auto) 2.7 (1.0-4.8) 10^3/ul Absolute Monos (auto) 0.6 (0-0.8) 10^3/ul Absolute Eos (auto) 0.2 (0-0.6) 10^3/ul Absolute Basos (auto) 0.1 (0-0.2) 10^3/ul Absolute Nucleated RBC 0.01 10^3/ul Nucleated RBC % 0.1 Sodium 134 (133-145) mmol/L Potassium 3.5 (3.5-5.0) mmol/L Chloride 103 (101-111) mmol/L Carbon Dioxide 27 (22-32) mmol/L Anion Gap 4 (2-11) mmol/L BUN 6 (6-24) mg/dL Creatinine 0.78 (0.51-0.95) mg/dL Est GFR ( Amer) 108.1 (>60) Est GFR (Non-Af Amer) 84.0 (>60) BUN/Creatinine Ratio 7.7 L (8-20) Glucose 84 (70-100) mg/dL Calcium 9.7 (8.6-10.3) mg/dL Total Bilirubin 0.20 (0.2-1.0) mg/dL AST 20 (13-39) U/L ALT 12 (7-52) U/L Alkaline Phosphatase 54 (34-104) U/L C-React Prot High Sens 3.72 mg/L Total Protein 7.3 (6.4-8.9) g/dL Albumin 4.2 (3.2-5.2) g/dL Globulin 3.1 (2-4) g/dL Albumin/Globulin Ratio 1.4 (1-3) Lipase 18 (11.0-82.0) U/L Beta HCG, Quant < 0.60 mIU/mL Urine Color Red A Urine Appearance Cloudy Urine pH TNP Ur Specific [place] 1.005 L (1.010-1.030) Urine Protein TNP Urine Ketones TNP Urine Blood TNP Urine Nitrate TNP Urine Bilirubin TNP Urine Urobilinogen TNP Ur Leukocyte Esterase TNP Urine WBC (Auto) 3+(>20/hpf) H (Absent) Urine RBC (Auto) 3+(>10/hpf) H (Absent) Ur Squamous Epith Cells Present H (Absent) Urine Bacteria 1+ H (Absent) Urine Glucose TNP Result Diagrams: 06/08/17 18:10 06/08/17 18:10 Lab Statement: Any lab studies that have been ordered have been reviewed, and results considered in the medical decision making process. - CT abd CT Interpretation: Positive (See Comments) - IMPRESSION: 1. PUNCTATE LEFT UVJ STONE, WITHOUT HYDRONEPHROSIS. 2. RIGHT OVARIAN CYST CT Interpretation Completed By: Radiologist KAMRAN Course/Dx - Course Course Of Treatment: 36F presents with left side flank pain for two weeks. She states that pain is greatest in LUQ. She denies any change in pain with food. she states it feels like the times she has had pancreatitis but she has not had a drink in a month. She denies any vomiting. She admits to occasionally nausea. She denies any diarrhea or constipation. She denies any dysuria or frequency or urgency. She is on her period currently. on exam tenderness left CVA and LUQ. ct shows stone at ujv. urine potential for infection but wbc and afebrile so will send home on bactrim while wait for culture. patient understand and agrees with plan. - Diagnoses Differential Diagnoses - Female: Pyelonephritis, Urinary Tract Infection, Ureteral Calculi Provider Diagnoses: Ureteral stone, UTI (urinary tract infection) Discharge - Discharge Plan Condition: Good Disposition: HOME Prescriptions: Sulfamethox/Trimethoprim DS* [Bactrim DS 800/160 TAB*] 1 tab PO BID #9 tab Tamsulosin CAP* [Flomax CAP*] 0.4 mg PO DAILY #7 cap Patient Education Materials: Urinary Tract Infection in Women (ED), Ureteral Stones (ED) Referrals: Malina Blount NP [Primary Care Provider] - Alon Xiao MD [Medical Doctor] - Additional Instructions: Take ibuprofen every 6 hours Take Flomax daily starting tomorrow, first dose given in ED until stone expelled , make sure stand up slowly Take antibiotic twice a day for 5 days Follow up with urology, call office tomorrow for appointment Strain urine until collect stone Return to ED if unable to manage pain at home, develop fever, or any new or worsening symptoms
[2017-06-08] MEDS ORDERED: Tamsulosin CAP* 0.4 MG PO ONE (21:46)
[2017-06-08 23:19] VITALS: BP 103/77
== END 2017-06-08 23:22 | disposition home or self-care (01) ==
LOC: ED 16:20
DX: N20.1 Calculus of ureter (principal); N39.0 Urinary tract infection, site not specified; N83.201 Unspecified ovarian cyst, right side
CPT/HCPCS: 36415; 74176; 80053; 81003; 83690; 84702; 85025; 86141; 87086; 96360; 96374; 99284; A9270-GY; J1885

== ENCOUNTER 2017-06-12 07:59 | Inpatient (IN) | payer OTHER ==
[2017-06-12] MEDS ORDERED: Albuterol 2.5 MG/3 ML NEB.SOL* (0.083%) INH ONE (08:21)
[2017-06-12] MEDS ORDERED: NS 0.9% 1000 ML* 1,000 ML IV SCH (08:30)
--- NOTE | 2017-06-12 08:52 | RAD ---
INDICATION: Dyspnea, sore throat, difficulty swallowing. On antibiotics. COMPARISON: June 08, [address] November 18, 2016 chest radiograph. TECHNIQUE: Dual energy PA and routine lateral views of the chest were obtained. REPORT: Low lung volumes with subsegmental atelectasis. Degree of bilateral pulmonary alveolar consolidation most prominent in the lower lung zones is greater than expected due to atelectasis from low lung volumes. No focal pulmonary lesion, pleural effusion, pneumothorax. The heart, pulmonary vasculature, and mediastinal contours are unremarkable. IMPRESSION: Bronchopneumonia is most likely. In the correct clinical setting ARDS could have a similar appearance. Correlate with clinical assessment.
[2017-06-12 09:13] LABS: Hematocrit 43 % (35-47); Hemoglobin 13.9 g/dl (12.0-16.0); Mean Corpuscular HGB Conc 33 g/dl (31-36); Mean Corpuscular Hemoglobin 30 pg (27-31); Mean Corpuscular Volume 92 fL (80-97); Mean Platelet Volume 9 um3 (7.4-10.4); Red Blood Count 4.61 10^6/ul (4.0-5.4); Red Cell Distribution Width 14 % (10.5-15); White Blood Count 14.7 10^3/ul (3.5-10.8)
[2017-06-12 09:18] LABS: FIO2 2
[2017-06-12 09:24] LABS: ALT 9 U/L (7-52); AST 25 U/L (13-39); Albumin 4.3 g/dL (3.2-5.2); Alkaline Phosphatase 90 U/L (34-104); Anion Gap 9 mmol/L (2-11); BUN/Creatinine Ratio 10.3 (8-20); Blood Urea Nitrogen 9 mg/dL (6-24); CO2 Carbon Dioxide 20 mmol/L (22-32); Chloride 108 mmol/L (101-111); EGFR African American 95.3 (>60); EGFR Non-African American 74.1 (>60); Globulin 3.9 g/dL (2-4); Glucose 122 mg/dL (70-100); Potassium 4.2 mmol/L (3.5-5.0); Sodium 137 mmol/L (133-145); Total Protein 8.2 g/dL (6.4-8.9)
[2017-06-12 09:32] LABS: PCO2 Arterial 33 mmHg (35-45)
[2017-06-12] MEDS ORDERED: Acetaminophen TAB* 325 MG PO PRN (09:34)
[2017-06-12] MEDS ORDERED: NS 0.9% 500 ML* 500 ML IV ONE (09:35)
[2017-06-12] MEDS ORDERED: Omeprazole CAP* 20 MG PO ONE (09:41)
[2017-06-12] MEDS ORDERED: Iohexol 350* (CONTRAST) 500 ML MDV IV ONE (09:56)
[2017-06-12] MEDS ORDERED: Saline FLUSH-PERIPHERAL* 10 ML SYRINGE PERIPH SCH (10:00)
[2017-06-12] MEDS ORDERED: Levofloxacin 500 MG IVPREMIX(* 500 MG/100 ML BAG IVPB SCH (10:00)
--- NOTE | 2017-06-12 10:31 | RAD ---
INDICATION: Shortness breath evaluate for pulmonary embolism. COMPARISON: Correlation is made with a prior chest x-ray study from June 12, 2017. TECHNIQUE: A CT angiogram of the chest was performed with intravenous following intravenous injection of 59 ml of Omnipaque 350 nonionic contrast. Contiguous axial sections were obtained from the lung apices through the lung bases. Images were reconstructed in the coronal and sagittal planes. FINDINGS: There is relatively homogeneous opacification of the pulmonary arteries. No intraluminal filling defect or pulmonary embolism is seen. The heart is within normal limits in size. No pericardial effusion is present. The thoracic aorta is normal in caliber and demonstrates homogeneous contrast opacification. There is a mildly prominent right hilar lymph node measuring 1.5 cm in size and mildly prominent mediastinal lymph nodes in the aorticopulmonary window region measuring up to 0.8 cm in transverse dimension. There is a subcarinal lymph node present measuring 1.2 cm in transverse dimension. There are rather extensive groundglass infiltrates present throughout both lungs. No pleural effusion is seen. No significant focal osseous abnormality is seen. IMPRESSION: 1. NO EVIDENCE FOR PULMONARY EMBOLISM. 2. EXTENSIVE BILATERAL GROUNDGLASS INFILTRATES DIFFERENTIAL DIAGNOSIS WOULD INCLUDE INFECTIOUS PNEUMONIA, PULMONARY EDEMA, ARDS, IDIOPATHIC INTERSTITIAL PNEUMONIA OR HYPERSENSITIVITY PNEUMONITIS. 3. MILDLY ENLARGED RIGHT HILAR AND MEDIASTINAL LYMPH NODES, LIKELY REACTIVE.
[2017-06-12] MEDS: Levalbuterol 1.25MG/0.5ML NEB INH SCH ×4 (11:01→23:49)
[2017-06-12 11:12] LABS: Amylase 50 U/L (29-103); C Reactive Protein 222.45 mg/L (< 5.00); Lipase < 10 U/L (11.0-82.0)
[2017-06-12 11:14] LABS: Troponin I 0.03 ng/mL (<0.04)
[2017-06-12] MEDS ORDERED: cefTRIAXone(*) 1 GM in NS 0.9% 50 ML* 50 ML IVPB SCH (12:00)
[2017-06-12] MEDS ORDERED: Azithromycin IV(*) 250 MG in NS 0.9% 250 ML* 250 ML IVPB SCH (12:00)
[2017-06-12] MEDS ORDERED: Gabapentin CAP(*) 300 MG PO SCH (12:00)
[2017-06-12] MEDS: NS 0.9% 1000 ML* 1,000 ML IV SCH ×2 (12:19→22:18)
[2017-06-12] MEDS: Ibuprofen TAB* 600 MG PO PRN (12:20)
[2017-06-12 12:24] LABS: Benzodiazepine Urine Screen None Detected (None Detect)
[2017-06-12] MEDS: Heparin VIAL(*) 5000 UNITS/ML VIAL (FIVE THOUSAND) SUBCUT SCH ×2 (13:06→21:29)
[2017-06-12] MEDS: Tamsulosin CAP* 0.4 MG PO SCH (13:06)
[2017-06-12] MEDS: Azithromycin IV(*) 500 MG in NS 0.9% 250 ML* 250 ML IVPB SCH (13:06)
--- NOTE | 2017-06-12 16:15 | HP ---
HISTORY AND PHYSICAL: DATE OF ADMISSION: 06/12/17 Primary acre provider: Robert Ramey MD CHIEF COMPLAINT: Shortness of breath. HISTORY OF PRESENT ILLNESS: The patient is a 36-year-old female with history of alcoholic pancreatitis with multiple admissions in the past for the same, was seen in the ED on 06/08/17 for left flank pain. The patient has history of kidney stones. She was noted to have left ureteral stone, with no evidence of hydronephrosis on abdominal and pelvis CT. The patient has history of opiate abuse in the past. The patient was given pain medication in the ED and was discharged home. The patient presents back to the ED today for evaluation of worsening shortness of breath. The patient reports that she gets short of breath walking from her bed to the restroom. The patient has history of asthma and recurrent bronchitis in the past. The patient is a current smoker, continues to smoke. The patient reports inability to take deep breath secondary to the abdominal pain. The patient reports feeling restricted taking deep breath. The patient reports subjective fevers and chills since this morning. The patient reports sick contact, with her significant other being sick with pneumonia-like symptoms. The patient reports cough, mostly dry in nature, productive of only little bit of clear phlegm. The patient was also found to have UTI and was asked to follow up with her primary care physician. She was also given Bactrim 800/160 one tab p.o. b.i.d. to complete a 10-day course. The patient reports no alcohol abuse recently. She reports her last drink was a month ago. The patient also reports having her periods currently. Chest x-ray performed in the emergency room was personally reviewed by me - The patient noted to have low lung volumes with subsegmental atelectasis bilaterally. No pleural effusions or other air space opacities were obvious in rest of the lung lino. The patient is afebrile in the ED. She has been tachypneic and tachycardic. She has received 1 nebulizer treatment and was placed on O2 supplementation at 2 L per minute, saturating 100% currently. Her blood pressure has been around 97 systolic with a MAP of 73 to 79. She denies abdominal discomfort, diarrhea, nausea or emesis. Denies dark stools. The patient feels that she might not have moved her stone yet. The patient is being admitted to the medical floor for further evaluation of shortness of breath. PAST MEDICAL HISTORY: 1. Chronic low-back pain. 2. Asthma/bronchitis. 3. Tobacco abuse. 4. Alcoholic pancreatitis, recurrent. 5. Alcohol abuse in the past, last drink a month ago as per the patient. 6. Kidney stones. PAST SURGICAL HISTORY: Denies. MEDICATIONS at home: 1. Seroquel 25 mg daily. 2. Gabapentin 600 mg daily. 3. Oxycodone 5 mg q.4 hours p.r.n. 4. Pancrelipase 4200 units. 5. Augmentin 875 mg p.o. b.i.d. ALLERGIES: CIPRO, CODEINE, CEPHALEXIN, AZITHROMYCIN. FAMILY HISTORY: Mother with breast cancer, brain tumor. Father's history unknown. SOCIAL HISTORY: One pack per day cigarette smoking history, has been smoking for 20 years, no recreational drug abuse. History of opiate abuse in the past for back pain, EtOH abuse with recurrent pancreatitis, reports last drink a month ago. Lives at home with boyfriend. REVIEW OF SYSTEMS: All 14 systems reviewed and as per HPI. PHYSICAL EXAMINATION GENERAL: The patient is in bed, in mild distress secondary to pain, has been saturating 100% on 2 L, does not appear to be tachypneic, appears anxious. VITAL SIGNS: Afebrile, with temperature 97.8, heart rate 110 beats per minute, respiratory 23 per minute, O2 sat 97% to 100% on 2 L, blood pressure 97/65. HEENT: Pupils equal, reactive to light. Mucous membranes moist. LUNGS: Diminished air entry bilaterally at bases, no wheeze, prolonged expiratory phase. CARDIOVASCULAR: S1 and S2 present, regular. No murmurs, gallops, or rubs. ABDOMEN: Soft, tenderness in the left flank, no rebound. Bowel sounds diminished. EXTREMITIES: Normal range of motion. NEUROLOGIC: No focal deficits. SKIN: No rashes or bruises. LABORATORY DATA: Labs from this morning are pending, she did not have elevated white count on CBC from 06/08/17. Sodium is 134, potassium 3.5 with normal kidney function on labs from 06/08/17. LFTs were within normal limits a few days ago. Beta-hCG was negative. She had normal lipase on 06/08/17. UA on 06/08/17 was positive for 3+ wbc and 1+ bacteria. Chest x-ray as described above in HPI. ASSESSMENT AND PLAN: 36-year-old female with history of alcohol abuse and h/o opiate use for chronic back pain, admitted for worsening shortness of breath. 1. Resp:Shortness of breath and cough likely secondary to acute asthma exacerbation and basal atelectasis secondary to inability to take deep breath. The patient also reports sick contacts recently and reports subjective fevers and chills. Will cover empirically for pneumonia. Will obtain CTA to evaluate for pulmonary embolism given chest pain. The patient also is tachycardic and tachypneic, likely secondary to pain; however, cannot rule out pulmonary embolism as a possibility completely. Will await CTA. The patient saturating well on supplemental oxygen at 2 L per minute, will continue. Will order nebulizers q.4 hours. Will monitor the patient closely on telemetry given labile blood pressure at this time. The patient is also being empirically covered for pneumonia and urinary tract infection at this time. She has history of kidney stones, was found to have ureteral stone, with no evidence of hydronephrosis on CT scan of abdomen done 4 days ago. The patient has history of narcotic abuse, declined narcotic pain medication. Will continue with ibuprofen as needed for pain. Encourage incentive spirometry use. Will avoid prednisone at this time unless absolutely needed. 2. Renal: Ureteral stone, continue with IV hydration and pain management. The patient will need to see Urology as outpatient. 3. Gastrointestinal: The patient with flank pain, no nausea or vomiting. Will start p.o. diet. 4. Infectious Disease: Leucocytosis, SIRS Urinary tract infection versus PNA, on Rocephin, Zithromax. Urine culture is pending, septic workup sent. Flu swab sent 5. CVS: Tachycardia, EKG- sinus tachycardia, troponins negative, likely sec to pain and SIRS 6. Endo: BS slightly elevated, no h/o DM 7. Musculoskeletal: Chronic back pain, pain management 8. Neuro/Psych: H/o Anxiety/depression, no focal defecits, Seroquel on hold as pt on Zithromax that could cause prolongation of QT 9. DVT Px and GI PPx TIME SPENT: Sixty minutes spent doing history and physical, more than 50% direct, [id number]. [id number]/[facility] #: [id number] [facility]
--- NOTE | 2017-06-12 16:25 | ECHO ---
Patient: RAYMOND OLMEDO [facility] Rec#: [id number] : 1980 Date: 06/12/2017 Age: 36y Height: 154.9 cm / 61.0 in Weight: 51.7 kg / 113.9 lbs Sex: F BSA: 1.5 Room#: [facility] Admit Date#: 06/12/2017 Type: Inpatient Referring: JOSEF RUSH Reading: Samuel Thomas MD Air Tank Assembler: Hillary Carreon RN RDCS CC: Malina Blount NP Transthoracic Echocardiogram Indication: Shortness of breath BP: 101/63 HR: 93 Rhythm: NSR Findings History: ETOH abuse, asthma, pancreatitis Technical Comments: The study quality is fair. Completed at 1545. Left Ventricle: The left ventricular chamber size is normal. Global left ventricular wall motion and contractility are within normal limits. There is normal left ventricular systolic function. The estimated ejection fraction is 55-60%. The assessment of diastolic function is non-diagnostic. The patient was unable to perform a Valsalva maneuver. Left Atrium: The left atrial chamber size is normal. Right Ventricle: The right ventricular cavity size is normal. The right ventricular global systolic function is normal. Right Atrium: The right atrial cavity size is normal. Aortic Valve: The aortic valve is trileaflet. The aortic valve leaflets are mildly thickened. There is trace to mild aortic regurgitation. There is no evidence of aortic stenosis. Mitral Valve: The mitral valve leaflets are mildly thickened. There is mild to moderate mitral regurgitation. eccentric jet directed posteriorly. There is no evidence of mitral stenosis. Tricuspid Valve: The tricuspid valve leaflets are mildly thickened. There is moderate tricuspid regurgitation. The tricuspid regurgitant jet is directed toward the septum. No pulmonary hypertension is noted. There is no tricuspid stenosis. Pulmonic Valve: The pulmonic valve appears normal. There is trace to mild pulmonic regurgitation. There is no pulmonic stenosis. Pericardium: There is no significant pericardial effusion. A pericardial fat pad is visualized. Aorta: There is no dilatation of the ascending aorta. There is no dilatation of the aortic arch. There is no dilation of the aortic root. Pulmonary Artery: The main pulmonary artery appears normal. Venous: The inferior vena cava appears normal in size. There is a greater than 50% respiratory change in the inferior vena cava dimension. Summary: There was not any prior study for comparison. Conclusions Global left ventricular wall motion and contractility are within normal limits. The estimated ejection fraction is 55-60%. The aortic valve leaflets are mildly thickened. There is trace to mild aortic regurgitation. There is moderate tricuspid regurgitation. The tricuspid regurgitant jet is directed toward the septum. There is mild to moderate mitral regurgitation with an eccentric jet directed posteriorly. There is transient decrease of forward flow in the hepatic veins during respiration of uncertain significance; consider constrictive physiology vs artifact or normal variant. Measurements Name Value Normal Range RVDdMajor (2D) 3.1 cm (2.2 - 4.4) RAd ISD 4CH 4.3 cm (3.4 - 4.9) RA (A4C)W 3.1 cm (2.9 - 4.6) IVSd (2D) 1 cm (0.6 - 1) LVPWd (2D) 0.9 cm (0.6 - 1) LVIDd (2D) 4.3 cm (3.6 - 5.4) LVIDs (2D) 3 cm - LV FS (2D) 30 % (25 - 45) Aortic Annulus 2 cm (1.4 - 2.6) Ao root diameter (2D) 2.2 cm (2.1 - 3.5) Ascending Ao 2.3 cm (2.1 - 3.4) Aortic arch 2 cm (1.8 - 3.4) LA dimension (AP) 2D 3 cm (2.3 - 3.8) LAd ISD 4CH 4.2 cm (2.9 - 5.3) LA ISD 4CH W 3.5 cm (2.5 - 4.5) Name Value Normal Range LA ESV SP 4CH (A/L) 25 ml - LA ESV SP 2CH (A/L) 41 ml - LA ESV BP (A/L) 33 ml - LA ESV BP (A/L) index 22.4 ml/m2 - LA ESV SP 4CH (MOD) 23 ml - LA ESV SP 2CH (MOD) 39 ml - Name Value Normal Range MV E-wave Vmax 0.69 m/sec - MV deceleration time 141 msec - MV A-wave Vmax 0.9 m/sec - MV E:A ratio 0.76 ratio - LV septal e' Vmax 0.11 m/sec - LV lateral e' Vmax 0.14 m/sec - LV E:e' septal ratio 6.3 ratio - LV E:e' lateral ratio 4.9 ratio - Name Value Normal Range AV Vmax 1.4 m/sec - AV VTI 30 cm - AV peak gradient 8 mmHg - AV mean gradient 4 mmHg - LVOT Vmax 1 m/sec - LVOT VTI 20.7 cm - LVOT peak gradient 4.4 mmHg - LVOT mean gradient 2.5 mmHg - MARSHA Vmax 0.99 m/sec - Name Value Normal Range TR Vmax 2.8 m/sec - TR peak gradient 31 mmHg - RAP 3 mmHg - RVSP 34 mmHg - IVC diameter 1.4 cm - Name Value Normal Range PV Vmax 0.96 m/sec -
[2017-06-12] MEDS: Gabapentin CAP(*) 300 MG PO SCH (17:37)
[2017-06-12] MEDS: Budesonide NEB* 0.5 MG/2 ML NEB.SOLN INH SCH (19:51)
[2017-06-12] MEDS: CMCS: Melatonin (NF) 3 MG TAB PO PRN (22:30)
[2017-06-12] MEDS ORDERED: traMADol TAB* 50 MG PO PRN (23:18)
[2017-06-13] MEDS ORDERED: guaiFENesin LIQ* 100 MG/5 ML UDC PO PRN (03:14)
[2017-06-13] MEDS: Levalbuterol 1.25MG/0.5ML NEB INH SCH ×3 (03:28→11:24)
[2017-06-13] MEDS ORDERED: traMADol TAB* 50 MG PO ONE (04:16)
[2017-06-13] MEDS: Ibuprofen TAB* 600 MG PO PRN (04:33)
[2017-06-13] MEDS: Heparin VIAL(*) 5000 UNITS/ML VIAL (FIVE THOUSAND) SUBCUT SCH ×3 (04:48→21:10)
[2017-06-13] MEDS: Budesonide NEB* 0.5 MG/2 ML NEB.SOLN INH SCH ×2 (07:33→19:30)
[2017-06-13] MEDS: Omeprazole CAP* 20 MG PO SCH (08:06)
[2017-06-13] MEDS: Tamsulosin CAP* 0.4 MG PO SCH (08:06)
[2017-06-13] MEDS: Gabapentin CAP(*) 300 MG PO SCH ×3 (08:06→17:03)
[2017-06-13] MEDS: Nicotine PATCH 21 MG/24 HR* PATCH TRANSDERM SCH (08:08)
[2017-06-13] MEDS: cefTRIAXone(*) 1 GM in D5W 50 ML BAG* 50 ML IVPB SCH (11:51)
[2017-06-13] MEDS: Azithromycin IV(*) 500 MG in NS 0.9% 250 ML* 250 ML IVPB SCH (13:22)
[2017-06-13] MEDS ORDERED: Levalbuterol 1.25MG/0.5ML NEB INH PRN (14:06)
[2017-06-13] MEDS ORDERED: guaiFENesin ER TAB 600 MG ONE (14:49)
[2017-06-13] MEDS: Ketorolac INJ* 30 MG/ML 1 ML VIAL IV PUSH PRN ×2 (14:54→21:04)
[2017-06-13 15:19] LABS: Anti Streptolysin O Antibody 121 IU/mL (0 - 530)
--- NOTE | 2017-06-13 17:19 | PN ---
Subjective Date of Service: 06/13/17 Interval History: Ms. Carlton reports that she is feeling much better than on arrival yesterday. She continues to feel short of breath and have a non-productive cough but these parameters have improved since admission. She continues to have left sided flank pain which she attributes to her kidney stone. She also complains of chronic back pain. She denies chest pain, nausea, or abdominal pain. Objective Active Medications: Budesonide (Pulmicort Neb*) 0.5 mg INH RT.BID JAYLYN Gabapentin (Neurontin Cap(*)) 600 mg PO 0800,1800 JAYLYN Gabapentin (Neurontin Cap(*)) 300 mg PO 1400 JAYLYN Guaifenesin (Mucinex*) 1,200 mg PO BID [facility] Heparin Sodium (Porcine) (Heparin Vial(*)) 5,000 units SUBCUT Q8HR [facility] Azithromycin 500 mg/ Sodium (Chloride) 250 mls @ 250 mls/hr IVPB Q24H JAYLYN Ceftriaxone Sodium 1 gm/ (Dextrose) 50 mls @ 200 mls/hr IVPB Q24H [facility] Ibuprofen (Motrin Tab*) 600 mg PO Q6H PRN Ketorolac Tromethamine (Toradol Inj*) 30 mg IV PUSH Q6H PRN Levalbuterol HCl (Xopenex 1.25 Mg/0.5 Ml Neb.Apple*) 1.25 mg INH Q4H PRN Melatonin (Melatonin (Nf)) 3 mg PO BEDTIME PRN Nicotine (Nicotine Patch 21 Mg/24 Hr*) 1 patch TRANSDERM DAILY@0800 [facility] Omeprazole (Prilosec Cap*) 20 mg PO 0730 [facility] Pharmacy Profile Note (Nicotine Patch Removal Note*) 1 note PATCH OFF 2100 [facility] Tamsulosin HCl (Flomax Cap*) 0.4 mg PO DAILY JAYLYN Tramadol HCl (Ultram*) 50 mg PO Q6H PRN Vital Signs: Temp Pulse Resp BP Pulse Ox 98.0 F 111 18 132/95 100 06/13/17 15:29 06/13/17 15:29 06/13/17 17:03 06/13/17 15:29 06/13/17 15:29 Oxygen Devices in Use Now: Nasal Cannula Appearance: Patient sitting up in bed in NAD Eyes: No Scleral Icterus Ears/Nose/Mouth/Throat: Mucous Membranes Moist Neck: NL Appearance and Movements; NL JVP Respiratory: Symmetrical Chest Expansion and Respiratory Effort, - - Inspiratory crackles bilaterally Cardiovascular: NL Sounds; No Murmurs; No JVD, No Edema Abdominal: NL Sounds; No Tenderness; No Distention Lymphatic: No Cervical Adenopathy Extremities: No Edema Skin: No Rash or Ulcers Neurological: Alert and Oriented x 3, NL Muscle Strength and Tone Nutrition: Taking PO's Result Diagrams: 06/12/17 08:46 06/12/17 08:46 Microbiology and Other Data: Vital Signs: Temp Pulse Resp BP Pulse Ox 98.0 F 111 18 132/95 100 06/13/17 15:29 06/13/17 15:29 06/13/17 17:03 06/13/17 15:29 06/13/17 15:29 Assess/Plan/Problems-Billing Assessment: Ms. Carlton is a 36 yo F with a PMH of asthma, continued heavy smoking, and alcoholic pancreatitis who was admitted on 06/12/17 with pneumonia. - Patient Problems (1) Pneumonia Comment: - Improved, on 1-2 L NC. - Atypical groundglass opacities on CT chest. - Appreciate input from Dr. Lopes. Continue ceftriazone and azithromycin. (2) Tobacco abuse Current Visit: No Status: Acute Code(s): Z72.0 - TOBACCO USE SNOMED Code(s ): 135268749 Comment: - Not motivated to quit at this time. - Continue nicotine patch. (3) DVT prophylaxis Comment: - SQ heparin. (4) Full code status Status and Disposition: Inpatient. Anticipate discharge to home.
[2017-06-13] MEDS ORDERED: Nicotine Patch Removal NOTE PATCH OFF SCH (21:00)
[2017-06-13] MEDS: guaiFENesin ER TAB 600 MG PO SCH (21:04)
[2017-06-13] MEDS: diPHENhydraMINE PO* 25 MG PO PRN (23:14)
[2017-06-13] MEDS: CMCS: Melatonin (NF) 3 MG TAB PO PRN (23:58)
[2017-06-14] MEDS: diPHENhydraMINE PO* 25 MG PO PRN ×2 (03:29→09:07)
[2017-06-14] MEDS: Ketorolac INJ* 30 MG/ML 1 ML VIAL IV PUSH PRN ×2 (03:35→09:07)
[2017-06-14] MEDS: Heparin VIAL(*) 5000 UNITS/ML VIAL (FIVE THOUSAND) SUBCUT SCH ×2 (06:47→13:30)
[2017-06-14] MEDS: Nicotine PATCH 21 MG/24 HR* PATCH TRANSDERM SCH (07:23)
[2017-06-14] MEDS: Tamsulosin CAP* 0.4 MG PO SCH (07:23)
[2017-06-14] MEDS: Omeprazole CAP* 20 MG PO SCH (07:23)
[2017-06-14] MEDS: Gabapentin CAP(*) 300 MG PO SCH ×2 (07:23→13:33)
[2017-06-14] MEDS: guaiFENesin ER TAB 600 MG PO SCH (07:23)
[2017-06-14 07:28] VITALS: BP 131/93
[2017-06-14] MEDS: Budesonide NEB* 0.5 MG/2 ML NEB.SOLN INH SCH (08:29)
--- NOTE | 2017-06-14 10:14 | PN ---
Subjective Date of Service: 06/14/17 Interval History: Ms. Carlton reports feeling better today though she is very tired. She denies chest pain and reports that her dyspnea is greatly improved. She denies nausea or abdominal pain. She is ambulating in her room off oxygen. Objective Active Medications: Budesonide (Pulmicort Neb*) 0.5 mg INH RT.BID [facility] Diphenhydramine HCl (Benadryl Po*) 25 mg PO Q4H PRN Gabapentin (Neurontin Cap(*)) 600 mg PO 0800,1800 JAYLYN Gabapentin (Neurontin Cap(*)) 300 mg PO 1400 [facility] Guaifenesin (Mucinex*) 1,200 mg PO BID [facility] Heparin Sodium (Porcine) (Heparin Vial(*)) 5,000 units SUBCUT Q8HR [facility] Azithromycin 500 mg/ Sodium (Chloride) 250 mls @ 250 mls/hr IVPB Q24H [facility]AY[facility] Ceftriaxone Sodium 1 gm/ (Dextrose) 50 mls @ 200 mls/hr IVPB Q24H [facility] Ibuprofen (Motrin Tab*) 600 mg PO Q6H PRN Ketorolac Tromethamine (Toradol Inj*) 30 mg IV PUSH Q6H PRN Levalbuterol HCl (Xopenex 1.25 Mg/0.5 Ml Neb.Apple*) 1.25 mg INH Q4H PRN Melatonin (Melatonin (Nf)) 3 mg PO BEDTIME PRN Nicotine (Nicotine Patch 21 Mg/24 Hr*) 1 patch TRANSDERM DAILY@0800 [facility] Omeprazole (Prilosec Cap*) 20 mg PO 0730 [facility] Pharmacy Profile Note (Nicotine Patch Removal Note*) 1 note PATCH OFF 2100 [facility] Tamsulosin HCl (Flomax Cap*) 0.4 mg PO DAILY JAYLYN Tramadol HCl (Ultram*) 50 mg PO Q6H PRN Vital Signs: Temp Pulse Resp BP Pulse Ox 98.2 F 101 16 131/93 97 06/14/17 07:16 06/14/17 08:31 06/14/17 09:07 06/14/17 07:16 06/14/17 08:31 Oxygen Devices in Use Now: Nasal Cannula Appearance: Patient lying in bed in NAD Eyes: No Scleral Icterus Ears/Nose/Mouth/Throat: Mucous Membranes Moist Neck: Trachea Midline Respiratory: Symmetrical Chest Expansion and Respiratory Effort, Clear to Auscultation Cardiovascular: NL Sounds; No Murmurs; No JVD, No Edema Abdominal: No Hepatosplenomegaly Lymphatic: No Cervical Adenopathy Extremities: No Edema Skin: No Rash or Ulcers Neurological: Alert and Oriented x 3, NL Muscle Strength and Tone Nutrition: Taking PO's Result Diagrams: 06/12/17 08:46 06/12/17 08:46 Microbiology and Other Data: . Assess/Plan/Problems-Billing Assessment: Ms. Carlton is a 36 yo F with a PMH of asthma, continued heavy smoking, and alcoholic pancreatitis who was admitted on 06/12/17 with pneumonia. - Patient Problems (1) Pneumonia Comment: - Improved, now on room air. - Atypical groundglass opacities on CT chest. - Appreciate input from Dr. Lopes. Continue ceftriazone and azithromycin. (2) Tobacco abuse Current Visit: No Status: Acute Code(s): Z72.0 - TOBACCO USE SNOMED Code(s ): 773607518 Comment: - Not motivated to quit at this time. - Continue nicotine patch. (3) DVT prophylaxis Comment: - SQ heparin. (4) Full code status Status and Disposition: Inpatient. Anticipate discharge to home.
[2017-06-14] MEDS ORDERED: DOXYcycline CAP(*) 100 MG PO SCH (12:00)
[2017-06-14] MEDS: cefTRIAXone(*) 1 GM in D5W 50 ML BAG* 50 ML IVPB SCH (12:25)
--- NOTE | 2017-06-15 05:11 | DS ---
CC: Malina Blount NP * DISCHARGE SUMMARY: DATE OF ADMISSION: 06/12/17 DATE OF DISCHARGE: 06/14/17 PRIMARY CARE PROVIDER: Malina Blount NP. ATTENDING PHYSICIAN: Dr. Yves Lee * (dictation provided by Norma Eller NP). PRIMARY DIAGNOSIS: Atypical pneumonia. SECONDARY DIAGNOSES: 1. Tobacco abuse. 2. Chronic low back pain. 3. Asthma. 4. Recurrent alcoholic pancreatitis. 5. Kidney stones. MEDICATIONS AT THE TIME OF DISCHARGE: 1. Doxycycline 100 mg p.o. b.i.d. x10 days. 2. Seroquel 25 mg p.o. daily. 3. Gabapentin 600 mg p.o. daily. 4. Pancrelipase 4200 units with meals. 5. Toradol 10 mg p.o. q.6 hours p.r.n. pain. HOSPITAL COURSE: Ms. Carlton is a 36-year-old female with past medical history as outlined above, who presented to the emergency room on 06/12/17 with concern for shortness of breath. Please see the dictated H and P from Dr. Lopes for complete details. In brief, the patient was seen on 06/08/17 with complaint of left flank pain. She was noted to have a left ureteral stone with no evidence of hydronephrosis on abdominopelvic CT. Patient was given pain medications and discharged to home. She returned on 06/12/17 with concern for shortness of breath. In the emergency room, she had a CTA of the chest to rule out pulmonary embolism, which was read as follows: "No evidence for pulmonary embolism. EXTENSIVE BILATERAL GROUND GLASS INFILTRATES. Differential diagnosis would include infectious pneumonia, pulmonary edema, ARDS, idiopathic interstitial pneumonia or hypersensitivity pneumonitis, mildly enlarged right hilar and mediastinal lymph nodes, likely reactive." Patient was started on ceftriaxone and azithromycin and was admitted to the hospital. Ms. Carlton was doing well by the next day. She was on 1 to 2 L of oxygen. She was afebrile. She was hemodynamically stable. Ms. Carlton is now off oxygen. She is up and ambulating in her room without significant dyspnea. She remains hemodynamically stable and afebrile. Plan is for her to be discharged to home to complete a 10-day course of doxycycline. I will note that the patient has a documented allergy to AZITHROMYCIN, which she says causes an odd sensation in her throat. She has requested a short prescription, which I have provided, for Toradol for chronic back pain/pain from the left flank, which has been attributed to kidney stone without hydronephrosis. I will note that Ms. Carlton was on Bactrim recently for urinary tract infection , and urine culture drawn during this hospitalization was negative as was the culture from 06/08/17. Ms. Carlton is medically stable for discharge to home. DISPOSITION: To home. DIET: Regular. ACTIVITY: As tolerated. FOLLOWUP PLANS: Please follow up with the primary care provider, Malina Blount in the next week regarding this acute hospitalization for atypical pneumonia and recommend that the patient follow up in about 6 weeks for a repeat [address] scan to evaluate for resolution of bilateral ground-glass opacities. TIME SPENT: Approximately 60 minutes were spent in the discharge of this patient, more than half that time was spent with the patient at the bedside reviewing the events leading up to this hospitalization, performing the physical examination, and reviewing my plan of care. NORMA ELLER NP [id number]/[facility] [place] #: [id number] LILI
== END 2017-06-14 15:23 | disposition home or self-care (01) | DRG 139 ==
LOC: ED 07:59 → MEDTELE 09:23
PROVIDERS: ADMIT Internal Medicine; ATTEND Internal Medicine
DX: J18.9 Pneumonia, unspecified organism (principal); N20.1 Calculus of ureter; G89.29 Other chronic pain; M54.5 Low back pain; F17.210 Nicotine dependence, cigarettes, uncomplicated; F41.9 Anxiety disorder, unspecified; F32.9 Major depressive disorder, single episode, unspecified; J45.909 Unspecified asthma, uncomplicated; F10.10 Alcohol abuse, uncomplicated; Y90.9 Presence of alcohol in blood, level not specified; Z88.6 Allergy status to analgesic agent; Z88.1 Allergy status to other antibiotic agents; Z80.3 Family history of malignant neoplasm of breast
CPT/HCPCS: 36415; 36600; 71020; 71275; 80053; 80307; 82150; 82803; 83605; 83690; 84484; 85025; 85379; 86060; 86140; 86215; 87040; 87086; 87502; 87899; 93005; 93306; 94640; 94760; A9270-GY; J0456; J0696; J1644; J1885; Q9967

== ENCOUNTER 2017-06-24 12:43 | Emergency (ER) | payer OTHER ==
[2017-06-24] MEDS ORDERED: Ketorolac INJ* 30 MG/ML 1 ML VIAL IV PUSH ONE (13:56)
[2017-06-24 13:58] LABS: Urine Appearance Cloudy; Urine Blood Negative (Negative); Urine Color Straw; Urine Ketones Negative (Negative); Urine Protein Negative (Negative); Urine Specific Gravity 1.002 (1.010-1.030); Urine Urobilinogen Negative (Negative)
--- NOTE | 2017-06-24 14:23 | RAD ---
INDICATION: History kidney stones left flank abdominal pain. COMPARISON: Comparison is made with a prior CT of the abdomen and pelvis from June 08, 2017. TECHNIQUE: A CT scan of the abdomen and pelvis was performed without intravenous or oral contrast. Contiguous axial sections were obtained from the lung bases through the symphysis pubis. Images were reconstructed in the coronal and sagittal planes. FINDINGS: The lung bases are clear. No pleural effusion is present. The liver and spleen are within normal limits in size without significant focal abnormality on this noncontrast study. No calcified gallstones are seen. The pancreas appears to be within normal limits in size. The kidneys and adrenal glands are normal in size. There is a 2 mm nonobstructing calculus present in the midportion of the right kidney. No hydronephrosis is seen. No ureteral or bladder calculi are noted. The aorta is normal in caliber with mild calcific plaque present. No significant enlarged retroperitoneal lymph nodes are seen. The stomach, small and large bowel appear nondistended. The appendix is within normal limits. There are a few scattered diverticuli. There is no evidence for diverticulitis or colitis. The uterus is anteverted and normal in size. No free intraperitoneal air or fluid is seen. No significant focal osseous abnormality is seen. IMPRESSION: 1. NO EVIDENCE FOR ACUTE FINDING OR HYDRONEPHROSIS. 2. SMALL NONOBSTRUCTING RIGHT RENAL CALCULUS.
[2017-06-24 14:29] LABS: ABS Basophils 0.1 10^3/ul (0-0.2); ABS Eosinophils 0.1 10^3/ul (0-0.6); ABS Lymphocytes 2.4 10^3/ul (1.0-4.8); ABS Monocytes 0.6 10^3/ul (0-0.8); ABS Neutrophils 5.7 10^3/ul (1.5-7.7); ABS Nucleated RBC 0.01 10^3/ul; Eosinophil % 0.8 % (0-6); Hematocrit 43 % (35-47); Hemoglobin 14.3 g/dl (12.0-16.0); Lymphocyte % 27.3 % (25-47); Mean Corpuscular HGB Conc 33 g/dl (31-36); Mean Corpuscular Hemoglobin 30 pg (27-31); Mean Corpuscular Volume 90 fL (80-97); Mean Platelet Volume 8 um3 (7.4-10.4); Nucleated Red Blood Cells % 0.2; Platelet Count 296 10^3/ul (150-450); Red Blood Count 4.72 10^6/ul (4.0-5.4); Red Cell Distribution Width 14 % (10.5-15); White Blood Count 8.9 10^3/ul (3.5-10.8)
[2017-06-24 14:44] LABS: EGFR Non-African American 68.6 (>60)
[2017-06-24] MEDS ORDERED: Morphine INJ* 4 MG/ML 1 ML CARPUJECT IV ONE ×2 (15:03→16:01)
[2017-06-24] MEDS ORDERED: NS 0.9% 1000 ML* 1,000 ML IV ONE (15:09)
--- NOTE | 2017-06-24 15:38 | ED ---
Abdominal Pain/Female - HPI Summary HPI Summary: Patient with a history of chronic pancreatitis and 2 recent visits to the ED for back pain, LUQ and PNA with 1 admission returns to the ED with worsening symptoms of LUQ and L flank pain radiating to the R flank. Symptoms are vague. Denies N/V/C/D. She has been taking antibiotics for a kidney stone possibly incidentally found on CT abd/pelvis on 06/08/17. Flomax given. She denies fevers, sweats and chills. Denies drinking alcohol for over 1 month. Denies drug use. PCP is Malina Blount NP. She denies any urinary symptoms or obstructions. She states she has been drinking water and taking ibuprofen with no improvement. Denies other health history of significance. Aggravated by nothing and relieved by nothing. - History of Current Complaint Chief Complaint: EDBackInjuryPain Stated Complaint: LOWER BACK PAIN Time Seen by Provider: 06/24/17 12:49 Hx Obtained From: Patient Hx Last Menstrual Period: 2 months ago ?: No Onset/Duration: Sudden Onset Timing: Constant Severity Initially: Moderate Severity Currently: Moderate Pain Intensity: 9 Pain Scale Used: 0-10 Numeric Location: Discrete At: LUQ, Flank Radiates: Yes Radiates to: Flank - R side Character: Cramping Aggravating Factor(s): Nothing Alleviating Factor(s): Nothing Associated Signs and Symptoms: Positive: Negative - Risk Factors Ectopic Risk Factor: Negative Ovarian Torsion Risk Factor: Reproductive Age Allergies/Adverse Reactions: Allergies Allergy/AdvReac Type Severity Reaction Status Date / Time Ciprofloxacin [From Cipro] Allergy Intermediate Difficulty Verified 03/06/17 03: 01 Breathing/Wheezing Codeine Allergy Mild Hives Verified 03/06/17 03:01 Acetaminophen Allergy See Comment Verified 04/16/17 17:32 Cephalexin [From Keflex] AdvReac Mild Palpitation Verified 03/06/17 03:01 s Azithromycin AdvReac Vomiting Verified 03/06/17 03:01 PMH/Surg Hx/FS Hx/Imm Hx Previously Healthy: Yes Endocrine/Hematology History: Denies: Hx Diabetes Cardiovascular History: Denies: Hx Hypercholesterolemia, Hx Hypertension Respiratory History: Reports: Other Respiratory Problems/Disorders - pt reports sob-uncertain etiology BRONCHITIS Denies: Hx Asthma History: Reports: Other Problems/Disorders - Hx pancreatitis Denies: Hx Renal Disease Musculoskeletal History: Reports: Hx Back Problems Sensory History: Denies: Hx Contacts or Glasses, Hx Hearing Aid Opthamlomology History: Denies: Hx Contacts or Glasses Neurological History: Reports: Hx Headaches Psychiatric History: Reports: Hx Substance Abuse - alcohol Denies: Hx Eating Disorder, Hx of Violent Episodes Against Others - Surgical History Surgery Procedure, Year, and Place: urethral stenting with - Immunization History Date of Tetanus Vaccine: UTD Date of Influenza Vaccine: 03/2017 Hx Pertussis Vaccination: No Immunizations Up to Date: Unable to Obtain/Confirm Infectious Disease History: No Infectious Disease History: Denies: Hx Clostridium Difficile, Hx Hepatitis, Hx Human Immunodeficiency Virus (HIV), Hx of Known/Suspected MRSA, Hx Shingles, Hx Tuberculosis, History Other Infectious Disease, Traveled Outside the [place] in Last 30 Days - Family History Known Family History: Positive: Other - cervical CA, brain tumor - Social History Occupation: Unemployed Lives: With Family Alcohol Use: None Alcohol Amount: in a recovery program Hx Substance Use: No Substance Use Type: Reports: None Substance Use Comment - Amount & Last Used: opiates Hx Tobacco Use: Yes Smoking Status (MU): Current Every Day Smoker Type: Cigarettes Amount Used/How Often: 1PPD Have You Smoked in the Last Year: Yes Review of Systems Constitutional: Negative Negative: Fever, Chills, Fatigue, Skin Diaphoresis Eyes: Negative Cardiovascular: Negative Respiratory: Negative Positive: Abdominal Pain. Negative: Vomiting, Diarrhea, Nausea Genitourinary: Negative Positive: see HPI, flank pain - left side. Negative: dysuria, discharge, frequency, incontinence, pain, urgency Musculoskeletal: Negative Skin: Negative Neurological: Negative All Other Systems Reviewed And Are Negative: Yes Physical Exam Triage Information Reviewed: Yes Vital Signs On Initial Exam: Initial Vitals Temp Pulse Resp BP Pulse Ox 97.1 F 90 22 108/62 100 06/24/17 12:44 06/24/17 12:44 06/24/17 12:44 06/24/17 12:44 06/24/17 12:44 Vital Signs Reviewed: Yes Appearance: Positive: Well-Appearing, Well-Nourished Skin: Positive: Skin Color Reflects Adequate Perfusion Head/Face: Positive: Normal Head/Face Inspection Eyes: Positive: EOMI, OWEN, Conjunctiva Clear Neck: Positive: Supple, No Lymphadenopathy Respiratory/Lung Sounds: Positive: Clear to Auscultation, Breath Sounds Present Cardiovascular: Positive: RRR, Pulses are Symmetrical in both Upper and Lower Extremities Abdomen Description: Positive: Soft, Other: - slight tenderness to deep palpation in the LUQ; tenderness to bilateral flanks Musculoskeletal: Positive: Strength/ROM Intact Neurological: Positive: Speech Normal Psychiatric: Positive: Normal, Affect/Mood Appropriate - [place] Coma Scale Coma Scale Total: 15 Diagnostics - Vital Signs Vital Signs Temp Pulse Resp BP Pulse Ox 06/24/17 15:15 97.6 F 85 16 134/89 99 06/24/17 12:44 97.1 F 90 22 108/62 100 - Laboratory Lab Results: Lab Results 06/24/17 06/24/17 06/24/17 Range/Units 13:45 14:15 14:15 WBC 8.9 (3.5-10.8) 10^3/ul RBC 4.72 (4.0-5.4) 10^6/ul Hgb 14.3 (12.0-16.0) g/dl Hct 43 (35-47) % MCV 90 (80-97) fL MCH 30 (27-31) pg MCHC 33 (31-36) g/dl RDW 14 (10.5-15) % Plt Count 296 (150-450) 10^3/ul MPV 8 (7.4-10.4) um3 Neut % (Auto) 64.2 (38-83) % Lymph % (Auto) 27.3 (25-47) % Tripp % (Auto) 6.8 (1-9) % Eos % (Auto) 0.8 (0-6) % Baso % (Auto) 0.9 (0-2) % Absolute Neuts (auto) 5.7 (1.5-7.7) 10^3/ul Absolute Lymphs (auto) 2.4 (1.0-4.8) 10^3/ul Absolute Monos (auto) 0.6 (0-0.8) 10^3/ul Absolute Eos (auto) 0.1 (0-0.6) 10^3/ul Absolute Basos (auto) 0.1 (0-0.2) 10^3/ul Absolute Nucleated RBC 0.01 10^3/ul Nucleated RBC % 0.2 Sodium 133 (133-145) mmol/L Potassium 3.6 (3.5-5.0) mmol/L Chloride 100 L (101-111) mmol/L Carbon Dioxide 23 (22-32) mmol/L Anion Gap 10 (2-11) mmol/L BUN 14 (6-24) mg/dL Creatinine 0.93 (0.51-0.95) mg/dL Est GFR ( Amer) 88.2 (>60) Est GFR (Non-Af Amer) 68.6 (>60) BUN/Creatinine Ratio 15.1 (8-20) Glucose 82 (70-100) mg/dL Lactic Acid (0.5-2.0) mmol/L Calcium 9.4 (8.6-10.3) mg/dL Magnesium 2.1 (1.9-2.7) mg/dL Total Bilirubin 0.40 (0.2-1.0) mg/dL AST 14 (13-39) U/L ALT 8 (7-52) U/L Alkaline Phosphatase 64 (34-104) U/L Total Creatine Kinase 25 (10-223) U/L C-Reactive Protein 1.94 (< 5.00) mg/L Total Protein 7.4 (6.4-8.9) g/dL Albumin 4.2 (3.2-5.2) g/dL Globulin 3.2 (2-4) g/dL Albumin/Globulin Ratio 1.3 (1-3) Lipase 541 H (11.0-82.0) U/L Beta HCG, Quant < 0.60 mIU/mL Urine Color Straw Urine Appearance Cloudy Urine pH 6.0 (5-9) Ur Specific [place] 1.002 L (1.010-1.030) Urine Protein Negative (Negative) Urine Ketones Negative (Negative) Urine Blood Negative (Negative) Urine Nitrate Negative (Negative) Urine Bilirubin Negative (Negative) Urine Urobilinogen Negative (Negative) Ur Leukocyte Esterase Negative (Negative) Urine Glucose Negative (Negative) 06/24/ Range/Units 14:15 WBC (3.5-10.8) 10^3/ul RBC (4.0-5.4) 10^6/ul Hgb (12.0-16.0) g/dl Hct (35-47) % MCV (80-97) fL MCH (27-31) pg MCHC (31-36) g/dl RDW (10.5-15) % Plt Count (150-450) 10^3/ul MPV (7.4-10.4) um3 Neut % (Auto) (38-83) % Lymph % (Auto) (25-47) % Tripp % (Auto) (1-9) % Eos % (Auto) (0-6) % Baso % (Auto) (0-2) % Absolute Neuts (auto) (1.5-7.7) 10^3/ul Absolute Lymphs (auto) (1.0-4.8) 10^3/ul Absolute Monos (auto) (0-0.8) 10^3/ul Absolute Eos (auto) (0-0.6) 10^3/ul Absolute Basos (auto) (0-0.2) 10^3/ul Absolute Nucleated RBC 10^3/ul Nucleated RBC % Sodium (133-145) mmol/L Potassium (3.5-5.0) mmol/L Chloride (101-111) mmol/L Carbon Dioxide (22-32) mmol/L Anion Gap (2-11) mmol/L BUN (6-24) mg/dL Creatinine (0.51-0.95) mg/dL Est GFR ( Amer) (>60) Est GFR (Non-Af Amer) (>60) BUN/Creatinine Ratio (8-20) Glucose (70-100) mg/dL Lactic Acid 1.2 (0.5-2.0) mmol/L Calcium (8.6-10.3) mg/dL Magnesium (1.9-2.7) mg/dL Total Bilirubin (0.2-1.0) mg/dL AST (13-39) U/L ALT (7-52) U/L Alkaline Phosphatase (34-104) U/L Total Creatine Kinase (10-223) U/L C-Reactive Protein (< 5.00) mg/L Total Protein (6.4-8.9) g/dL Albumin (3.2-5.2) g/dL Globulin (2-4) g/dL Albumin/Globulin Ratio (1-3) Lipase (11.0-82.0) U/L Beta HCG, Quant mIU/mL Urine Color Urine Appearance Urine pH (5-9) Ur Specific [place] (1.010-1.030) Urine Protein (Negative) Urine Ketones (Negative) Urine Blood (Negative) Urine Nitrate (Negative) Urine Bilirubin (Negative) Urine Urobilinogen (Negative) Ur Leukocyte Esterase (Negative) Urine Glucose (Negative) Result Diagrams: 06/24/17 14:15 06/24/17 14:15 Lab Statement: Any lab studies that have been ordered have been reviewed, and results considered in the medical decision making process. Abdominal Pain Fem Course/Dx - Course Course Of Treatment: Patient presents to the ED with continuing pain x 2 weeks from a kidney stone. Abd/pelvis does not show kidney stone on the L side which is the CC. IMPRESSION: 1. NO EVIDENCE FOR ACUTE FINDING OR HYDRONEPHROSIS. 2. SMALL NONOBSTRUCTING RIGHT RENAL CALCULUS. Denies N/V/C/D. Denies any other symptoms. No alcohol for 1 month. Chest xray obtained: negative. US pancreas: shows no abnormalities. Hospitalist to see patient. Patient declined admission for pain control. I have advised she remain on a clear liquid diet and she is given pain control for 3 days and is to follow up with La Blount NP in 2-3 days for a recheck of symptoms. I have discussed with patient treatment options. I do not feel her pain is from the non-obstructing kidney stone. Possibly from pancreatitis, although lipase was only slightly elevated at 541. She has however, been hospitalized for this in the past with numbers similar to current. - Diagnoses Differential Diagnosis: Positive: Constipation, Pneumonia, Renal Colic Provider Diagnoses: Pancreatitis Discharge - Discharge Plan Condition: Stable Disposition: HOME Prescriptions: oxyCODONE/Acetamin 10/325(NF) [Percocet 10/325 (NF)] 1 tab PO Q6H #12 tab MDD 4 Patient Education Materials: Pancreatitis (ED) Referrals: Malina Blount NP [Primary Care Provider] - Additional Instructions: Follow up with Milena Blount NP Call tomorrow for appt Avoid food Drink clear liquids only While taking the pain medication, take with a few crackers
[2017-06-24] MEDS ORDERED: Morphine INJ* 4 MG/ML 1 ML CARPUJECT IV PRN (16:22)
[2017-06-24] MEDS ORDERED: NS 0.9% 1000 ML* 1,000 ML IV SCH (16:30)
--- NOTE | 2017-06-24 17:01 | RAD ---
INDICATION: Pneumonia. COMPARISON: Comparison is made with a prior chest x-ray study from June 12, 2017. TECHNIQUE: Dual-energy PA and lateral views of the chest were obtained. FINDINGS: The heart is within normal limits in size. Mediastinal and hilar contours appear within normal limits. The lungs are clear. No pleural effusion is present. There has been interval resolution of the previously noted bilateral infiltrates. IMPRESSION: NO EVIDENCE FOR ACTIVE CARDIOPULMONARY DISEASE.
--- NOTE | 2017-06-24 17:12 | RAD ---
INDICATION: Chronic pancreatitis, pain. COMPARISON: Comparison is made with a prior CT of the abdomen and pelvis from June 24, 2017. TECHNIQUE: Multiple real-time images of the pancreas were obtained. FINDINGS: The pancreatic head body and a portion of the tail were visualized. The distal portion of the tail is not seen. The pancreas appears normal in size. No pancreatic ductal distention is seen. No fluid collection or pseudocyst is seen. IMPRESSION: NEGATIVE EXAM, IF THE PATIENT'S SYMPTOMS PERSIST RECOMMEND A CONTRAST-ENHANCED CT OF THE ABDOMEN.
[2017-06-24 17:25] VITALS: BP 137/85
--- NOTE | 2017-06-24 22:28 | CONS ---
CC: Malina Blount NP * HOSPITAL MEDICINE CONSULTATION REPORT: DATE OF ADMISSION: 06/24/17 - EMERGENCY DEPT ATTENDING PHYSICIAN: Clemente Finley MD (dictation provided by Norma Eller NP) PRIMARY CARE PROVIDER: Malina Blount NP CHIEF COMPLAINT: Back pain. HISTORY OF PRESENT ILLNESS: Ms. Carlton is a 36-year-old female with past medical history of alcoholic pancreatitis x2 in 2017, recent admission with discharge from our hospital on 06/14/17 after treatment for atypical pneumonia, asthma bronchitis and continued tobacco abuse who presents to the hospital today with concern for back pain. Ms. Carlton states that since her discharge on 06/14/17, her shortness of breath and cough has completely resolved. She has completed a course of doxycycline. She had had intermittent left upper quadrant burning as well as left-sided flank pain during that admission, which were thought to be attributable to possible kidney stone. She at that time had a lipase that was less than 10. She states since going home, she has had more left upper quadrant burning and now has pain across her midback that she describes as a labor-type pain. She has a history of alcoholic pancreatitis x2 this year and states that she quit drinking alcohol several months ago. She came in today because of the pain. She has been tolerating oral intake. She has not had no nausea, vomiting or diarrhea. She states that initially on returning home after treatment for atypical pneumonia, she did have some sweats , but no documented fever, that have resolved several days ago. In the emergency room, Ms. Carlton had a lipase that was elevated to 541. She had an abdomen and pelvis CT that showed no evidence for acute findings or hydronephrosis with small non-obstructing right renal calculus. She had chest x -ray, which showed no evidence for active cardiopulmonary disease and pancreas ultrasound is pending. Hospital Medicine was called regarding need for admission. PAST MEDICAL HISTORY: 1. Alcoholic pancreatitis x2. 2. Asthma bronchitis. 3. Tobacco abuse. 4. History of kidney stones. 5. Admission with discharge on 06/14/17 for atypical pneumonia. MEDICATIONS: 1. Pulmicort inhaler b.i.d. 2. Gabapentin 900 mg in the a.m. and 600 mg at night. 3. Guaifenesin p.r.n. 4. Vistaril 25 mg p.o. q.8 hours. 5. Ibuprofen 200 mg p.o. q.6 hours. 6. Toradol 10 mg p.o. q.6 hours. 7. Quetiapine 25 mg p.o. daily. 8. Tamsulosin 0.4 mg p.o. daily. ALLERGIES: To CIPROFLOXACIN, CODEINE, ACETAMINOPHEN, CEPHALEXIN and AZITHROMYCIN. FAMILY HISTORY: Mother had breast cancer and brain tumor. Father's history is unknown. REVIEW OF SYSTEMS: A 14-point review of system was completed with Ms. Carlton and all those not mentioned above were negative. PHYSICAL EXAMINATION: Vital Signs: Temperature 97.6, pulse of 85, respiratory rate 16, O2 saturation 99% on room air, blood pressure 134/89. General: Ms. Carlton is lying in the bed. She is in no acute distress. Neuro: She is alert. She is oriented x3. She moves all extremities equally. There is no facial asymmetry or focal weakness. Extraocular movements are intact. Heart: S1, S2. No murmur, rub or gallop and regular. Lungs: Clear to auscultation bilaterally with no accessory muscle use and good aeration. Abdomen: The abdomen is soft. There is tenderness to deep palpation in the left upper quadrant. There is no rebound or guarding. Extremities: No cyanosis or edema. Skin: Intact. LABORATORY DATA/DIAGNOSTIC STUDIES: WBC 8.9, hemoglobin 14.3, hematocrit 43, platelet count 296. Sodium 133, potassium 3.6, chloride 100, serum bicarbonate 23, BUN 14, creatinine 0.93, glucose 82, lipase 541. LFTs shows total bilirubin 0.4, AST 14, ALT 8, alk phos 64. Urine shows no evidence of infection. Serum alcohol level is pending. Abdomen, pelvis CT as described per above. Chest x-ray as described per above. ASSESSMENT: Ms. Carlton is a 36-year-old female with a past medical history of alcoholic pancreatitis x2 as well as recent admission for atypical pneumonia and asthma bronchitis with continued tobacco abuse who presented to the hospital today with concern for left upper quadrant pain with associated back pain, found to have pancreatitis. I spoke at length with Ms. Carlton today. She states she is not drinking anymore. I explained to her she likely has chronic pancreatitis and we have offered for her to stay in the hospital. She states that she is not interested in staying today, but would hope for some pain medications before returning home. I have instructed that she should have clear liquids only for several days until her pain passes. She will be following with nurse practitioner, Malina Blount. I have instructed her to return to the emergency room should she have worsening pain especially associated with fever, nausea or vomiting. Ms. Carlton is medically stable for discharge from the emergency room today by emergency room provider. TIME SPENT: Approximately 45 minutes were spent on the consultation of this patient, more than half time spent with the patient at the bedside reviewing the events, leading up to the hospitalization performing the physical examination, and reviewing my plan of care. NORMA ELLER NP [id number]/[facility] #: [id number] LILI
== END 2017-06-24 17:24 | disposition home or self-care (01) ==
LOC: ED 12:43 → MED 16:21 → UNDOADMIN 16:21 → ED 17:24
DX: K85.90 Acute pancreatitis without necrosis or infection, unspecified (principal); R10.12 Left upper quadrant pain; F17.210 Nicotine dependence, cigarettes, uncomplicated
CPT/HCPCS: 36415; 71020; 74176; 76705; 80053; 80061; 80320; 81003; 82550; 83605; 83690; 83735; 84702; 85025; 86140; 96374; 96375; 99282; G0480; J1885; J2270

== ENCOUNTER 2017-09-04 20:26 | Emergency (ER) | payer OTHER ==
[2017-09-04] MEDS ORDERED: NS 0.9% 1000 ML* 2,000 ML IV ONE (21:03)
[2017-09-04] MEDS ORDERED: HYDROmorphone INJ* 2 MG/ML CARPUJECT SYRINGE IV SLOW PU ONE (21:13)
--- NOTE | 2017-09-04 21:16 | ED ---
GI/ HPI - HPI Summary HPI Summary: 37F presents with abdominal pain since last night. She states she has a history of alcoholic pancreatitis with 2 episodes last year. She states she has not been drinking for past couple months. She states last night she went out and had a large amount of liquor. She states she developed left upper quadrant pain afterwards. She states this feels similar to that time she has had pancreatitis before. She states her pain does not radiate anywhere. She denies any nausea or vomiting. She denies any constipation. She denies any dysuria or hematuria. She denies any flank pain. She denies any fevers. She has been trying to manage her pain at home but has been unable to. She is currently on omperazole daily and has a history of GERD. She denies any blood in her stool. - History of Current Complaint Chief Complaint: EDAbdPain Time Seen by Provider: 09/04/17 20:58 Stated Complaint: ABD PAIN Hx Last Menstrual Period: 2 months ago Pain Intensity: 7 - Additional Pertinent History Primary Care Physician: MITRA - Allergy/Home Medications Allergies/Adverse Reactions: Allergies Allergy/AdvReac Type Severity Reaction Status Date / Time acetaminophen Allergy See Comment Verified 09/04/17 21:11 azithromycin Allergy Vomiting Verified 09/04/17 21:11 cephalexin [From Keflex] Allergy Palpitation Verified 09/04/17 21:11 s ciprofloxacin Allergy Difficulty Verified 09/04/17 21:11 Breathing codeine Allergy Hives Verified 09/04/17 21:11 PMH/Surg Hx/FS Hx/Imm Hx Endocrine/Hematology History: Denies: Hx Diabetes Cardiovascular History: Denies: Hx Hypercholesterolemia, Hx Hypertension Respiratory History: Reports: Other Respiratory Problems/Disorders - pt reports sob-uncertain etiology BRONCHITIS Denies: Hx Asthma History: Reports: Other Problems/Disorders - Hx pancreatitis Denies: Hx Renal Disease Musculoskeletal History: Reports: Hx Back Problems Sensory History: Denies: Hx Contacts or Glasses, Hx Hearing Aid Opthamlomology History: Denies: Hx Contacts or Glasses Neurological History: Reports: Hx Headaches Psychiatric History: Reports: Hx Substance Abuse - alcohol Denies: Hx Eating Disorder, Hx of Violent Episodes Against Others - Surgical History Surgery Procedure, Year, and Place: urethral stenting with - Immunization History Date of Tetanus Vaccine: UTD Date of Influenza Vaccine: 03/2017 Infectious Disease History: No Infectious Disease History: Denies: Hx Clostridium Difficile, Hx Hepatitis, Hx Human Immunodeficiency Virus (HIV), Hx of Known/Suspected MRSA, Hx Shingles, Hx Tuberculosis, History Other Infectious Disease, Traveled Outside the [place] in Last 30 Days - Family History Known Family History: Positive: Other - cervical CA, brain tumor - Social History Alcohol Use: None Alcohol Amount: in a recovery program Hx Substance Use: No Substance Use Type: Reports: None Substance Use Comment - Amount & Last Used: opiates Hx Tobacco Use: Yes Smoking Status (MU): Current Every Day Smoker Type: Cigarettes Amount Used/How Often: 1PPD Have You Smoked in the Last Year: Yes Review of Systems Negative: Fever Negative: Chest Pain Negative: Shortness Of Breath Positive: Abdominal Pain. Negative: Vomiting, Diarrhea, Nausea All Other Systems Reviewed And Are Negative: Yes Physical Exam Triage Information Reviewed: Yes Vital Signs On Initial Exam: Initial Vitals Temp Pulse Resp BP Pulse Ox 97.5 F 98 18 132/91 98 09/04/17 20:33 09/04/17 20:33 09/04/17 20:33 09/04/17 20:33 09/04/17 20:33 Vital Signs Reviewed: Yes Appearance: Positive: Well-Appearing Skin: Positive: Warm, Dry Head/Face: Positive: Normal Head/Face Inspection Eyes: Positive: Normal, Conjunctiva Clear Respiratory/Lung Sounds: Positive: Clear to Auscultation, Breath Sounds Present Cardiovascular: Positive: Normal, RRR Abdomen Description: Positive: Soft, Other: - tenderness in LUQ and RUQ, greatest in RUQ Bowel Sounds: Positive: Present Musculoskeletal: Positive: Normal Neurological: Positive: Normal Psychiatric: Positive: Normal Diagnostics - Vital Signs Vital Signs Temp Pulse Resp BP Pulse Ox 09/04/17 20:33 97.5 F 98 18 132/91 98 - Laboratory Result Diagrams: 09/04/17 21:26 09/04/17 21:26 Lab Statement: Any lab studies that have been ordered have been reviewed, and results considered in the medical decision making process. - Ultrasound No standard instances Ultrasound Interpretation: Positive (See Comments) - no obvious abnormalities of visualized portion of pancreas. no dilation of pancreatitc duct Ultrasound Interpretation Completed By: Radiologist - EKG No standard instances Cardiac Rate: NL EKG Rhythm: Sinus Rhythm EKG Interpretation: normal sinus rhythm GIGU Course/Dx - Course Course Of Treatment: 37F presents with abdominal pain since last night. She states she has a history of alcoholic pancreatitis with 2 episodes last year. She states she has not been drinking for past couple months. She states last night she went out and had a large amount of liquor. She states she developed left upper quadrant pain afterwards. She states this feels similar to that time she has had pancreatitis before. She states her pain does not radiate anywhere. She denies any nausea or vomiting. She denies any constipation. She denies any dysuria or hematuria. She denies any flank pain. She denies any fevers. She has been trying to manage her pain at home but has been unable to. She is currently on omperazole daily and has a history of GERD. She denies any blood in her stool. on exam has tenderness greatest in LUQ. no rebound. lungs CTA. wbc normal. lipase and amylase normal. u/s normal. patient decline CT. wants to manage pain at home and does not want to be admitted. explained could be earlier pancreatitis or gastritis. will send home with pain medication and have do bowel rest. told if anything changes to return to ED. patient understand and agrees with plan. - Diagnoses Differential Diagnoses - Female: Cholecystitis, Gastritis, Pancreatitis Provider Diagnoses: Abdominal pain Discharge - Discharge Plan Condition: Good Disposition: HOME Prescriptions: oxyCODONE TAB* [Roxycodone TAB 5 mg*] 5 mg PO Q6H PRN #12 tab MDD 4 PRN Reason: Pain Patient Education Materials: Pancreatitis (ED) Referrals: Malina Blount NP [Primary Care Provider] - Additional Instructions: Symptoms may be due to pancreatitis vs gastritis Continue acid suppressor as prescribed by primary Follow up with primary within 4 days Avoid food Drink clear liquids only take pain medication every 6 hours for pain Return to ED if develop any new or worsening symptoms
[2017-09-04 21:36] LABS: ABS Basophils 0.1 10^3/ul (0-0.2); ABS Eosinophils 0.2 10^3/ul (0-0.6); ABS Lymphocytes 2.8 10^3/ul (1.0-4.8); ABS Monocytes 0.7 10^3/ul (0-0.8); ABS Neutrophils 5.6 10^3/ul (1.5-7.7); ABS Nucleated RBC 0 10^3/ul; Eosinophil % 1.6 % (0-6); Hematocrit 39 % (35-47); Hemoglobin 12.9 g/dl (12.0-16.0); Mean Corpuscular HGB Conc 34 g/dl (31-36); Mean Corpuscular Hemoglobin 30 pg (27-31); Mean Corpuscular Volume 89 fL (80-97); Mean Platelet Volume 8 um3 (7.4-10.4); Nucleated Red Blood Cells % 0; Platelet Count 255 10^3/ul (150-450); Red Blood Count 4.35 10^6/ul (4.0-5.4); Red Cell Distribution Width 15 % (10.5-15); White Blood Count 9.4 10^3/ul (3.5-10.8)
[2017-09-04 21:57] LABS: EGFR Non-African American 90.2 (>60)
[2017-09-04] MEDS ORDERED: Pantoprazole IV* 40 MG IV ONE (22:11)
[2017-09-04] MEDS ORDERED: Lidocaine 2% VISCOUS* 15 ML UDC PO ONE (22:36)
[2017-09-04] MEDS ORDERED: Al Hydrox/Mg Hydrox/Simet LIQ* 30 ML UDC PO ONE (22:36)
[2017-09-04 23:00] LABS: Urine Appearance Cloudy; Urine Blood Negative (Negative); Urine Color Yellow; Urine Ketones Negative (Negative); Urine Protein 1+(30 mg/dL) (Negative); Urine Specific Gravity 1.021 (1.010-1.030); Urine Urobilinogen Negative (Negative)
[2017-09-05 00:11] VITALS: BP 149/104
--- NOTE | 2017-09-05 07:45 | RAD ---
HISTORY: Epigastric pain COMPARISONS: June 24, 2017 TECHNIQUE: Multiple transverse and longitudinal centimeters were obtained of the pancreas is grayscale and color Doppler imaging. FINDINGS: The head of the pancreas is unremarkable. There is no appreciable pancreatic ductal dilatation. The visualized portion of the portal venous system is patent. The tail of the pancreas is obscured by overlying bowel gas. IMPRESSION: SONOGRAPHIC EVALUATION OF THE PANCREAS IS GENERALLY LIMITED BY OVERLYING BOWEL GAS. ON THE CURRENT EXAMINATION, THE HEAD OF THE PANCREAS IS UNREMARKABLE. THE TAIL IS OBSCURED. IF THERE IS PERSISTENT CLINICAL CONCERN FOR PANCREATIC PATHOLOGY, INCLUDING PANCREATITIS OR PANCREATIC NEOPLASM, RECOMMEND CONSIDERATION OF FURTHER EVALUATION WITH CONTRAST-ENHANCED CT OR CONTRAST-ENHANCED MRI OF THE ABDOMEN
== END 2017-09-05 00:09 | disposition home or self-care (01) ==
LOC: ED 20:26
DX: R10.9 Unspecified abdominal pain (principal); F17.210 Nicotine dependence, cigarettes, uncomplicated
CPT/HCPCS: 36415; 76705; 80053; 80320; 81003; 81015; 82150; 83690; 83735; 84484; 84702; 85025; 86141; 87086; 93005; 96374; 96375; 99283; A9270-GY; G0480; J1170

== ENCOUNTER 2017-09-19 06:24 | Emergency (ER) | payer OTHER ==
--- NOTE | 2017-09-19 07:35 | RAD ---
HISTORY: Right foot pain COMPARISONS: None VIEWS: 3, Frontal, lateral, and oblique views of the right foot FINDINGS: BONE DENSITY: Normal. BONES: There are nondisplaced fractures of the base of the third and fourth metatarsals. The Lisfranc interval is normal. JOINTS: There is no arthropathy. ALIGNMENT: There is no dislocation. SOFT TISSUES: Unremarkable. OTHER FINDINGS: None. IMPRESSION: NONDISPLACED FRACTURES OF THE PROXIMAL THIRD AND FOURTH METATARSALS.
[2017-09-19] MEDS ORDERED: Morphine INJ* 4 MG/ML 1 ML SYRINGE (NEW SYRINGE VERSION) IM ONE (07:59)
[2017-09-19] MEDS ORDERED: Morphine INJ* 10 MG/ML 1 ML CARPUJECT ONE (08:05)
[2017-09-19] MEDS ORDERED: Ketorolac INJ* 60 MG/2 ML VIAL ONE (08:57)
[2017-09-19] MEDS ORDERED: Ketorolac INJ* 60 MG/2 ML VIAL IM ONE (08:59)
--- NOTE | 2017-09-19 09:22 | ED ---
Progress - Progress Note Progress Note: Rt LE - proximal MT fx's Fiberglass splint fabricated Posterior leg to proximal tibia and stirrup placed N/V intact pre and post pt tolerated fairly well Course/Dx - Diagnoses Provider Diagnoses: Metatarsal fracture Discharge - Sign-Out/Discharge Documenting (check all that apply): Discharge - Discharge Plan Condition: Stable Disposition: HOME Prescriptions: oxyCODONE TAB* [Roxycodone TAB 5 mg*] 5 mg PO Q6H PRN #20 tab MDD 4 PRN Reason: Pain - Moderate To Severe Patient Education Materials: Oxycodone/Acetaminophen (By mouth), Foot Fracture in Adults (ED) Referrals: Huy Gilliland MD [Medical Doctor] - 3 Days Malina Blount NP [Primary Care Provider] - 3 Days Additional Instructions: RETURN TO THE EMERGENCY DEPARTMENT FOR CHANGING OR WORSENING SYMPTOMS - Billing Disposition and Condition Condition: STABLE Disposition: HOME
[2017-09-19 09:54] VITALS: BP 126/60
--- NOTE | 2017-09-19 14:45 | ED ---
Lyubov Kirkland Emily, scribed for Sarbjit Vegas MD on 09/19/17 at 0807 . Lower Extremity - HPI Summary HPI Summary: This patient is a 37 year old F BIBA to [facility] with a chief complaint of R foot pain that began status post fall at 2100 yesterday. Pt reports tripping over her own feet while wearing heels after a small amount of ETOH consumption. Pt denies any head trauma during fall. The patient rates the pain 10/10 in severity. Symptoms aggravated by movement. Symptoms alleviated by nothing. Pt reports swelling on the outside of R foot. - History of Current Complaint Chief Complaint: EDExtremityLower Stated Complaint: RIGHT FOOT PAIN Time Seen by Provider: 09/19/17 07:55 Hx Obtained From: Patient Hx Last Menstrual Period: 2 months ago Mechanism Of Injury: Fall From A Standing Position Onset of Pain: Immediate, Post Accident Onset/Duration: Hours Severity Initially: Severe Severity Currently: Severe Pain Intensity: 10 Pain Scale Used: 0-10 Numeric Timing: Constant Location: Is Discrete @ - R foot Associated Signs And Symptoms: Positive: Swelling Aggravating Factor(s): Movement Alleviating Factor(s): Nothing Able to Bear Weight: No - Allergies/Home Medications Allergies/Adverse Reactions: Allergies Allergy/AdvReac Type Severity Reaction Status Date / Time acetaminophen Allergy See Comment Verified 09/04/17 21:11 azithromycin Allergy Vomiting Verified 09/04/17 21:11 cephalexin [From Keflex] Allergy Palpitation Verified 09/04/17 21:11 s ciprofloxacin Allergy Difficulty Verified 09/04/17 21:11 Breathing codeine Allergy Hives Verified 09/04/17 21:11 PMH/Surg Hx/FS Hx/Imm Hx Previously Healthy: No Endocrine/Hematology History: Denies: Hx Diabetes Cardiovascular History: Denies: Hx Hypercholesterolemia, Hx Hypertension Respiratory History: Reports: Other Respiratory Problems/Disorders - pt reports sob-uncertain etiology BRONCHITIS Denies: Hx Asthma History: Reports: Other Problems/Disorders - Hx pancreatitis Denies: Hx Renal Disease Musculoskeletal History: Reports: Hx Back Problems Sensory History: Denies: Hx Contacts or Glasses, Hx Hearing Aid Opthamlomology History: Denies: Hx Contacts or Glasses Neurological History: Reports: Hx Headaches Psychiatric History: Reports: Hx Substance Abuse - alcohol Denies: Hx Eating Disorder, Hx of Violent Episodes Against Others - Surgical History Surgery Procedure, Year, and Place: urethral stenting with - Immunization History Date of Tetanus Vaccine: UTD Date of Influenza Vaccine: 03/2017 Infectious Disease History: No Infectious Disease History: Denies: Hx Clostridium Difficile, Hx Hepatitis, Hx Human Immunodeficiency Virus (HIV), Hx of Known/Suspected MRSA, Hx Shingles, Hx Tuberculosis, History Other Infectious Disease, Traveled Outside the [place] in Last 30 Days - Family History Known Family History: Positive: Other - cervical CA, brain tumor - Social History Occupation: Unemployed Lives: With Family Alcohol Use: ETOH abuse Alcohol Amount: in a recovery program Hx Substance Use: No Substance Use Type: Reports: Other Substance Use Comment - Amount & Last Used: opiates Hx Tobacco Use: Yes Smoking Status (MU): Heavy Every Day Tobacco Smoker Type: Cigarettes Amount Used/How Often: 1PPD Have You Smoked in the Last Year: Yes Review of Systems Negative: Fever, Chills Negative: Erythema Negative: Sore Throat Negative: Chest Pain Negative: Shortness Of Breath, Cough Negative: Abdominal Pain, Vomiting, Nausea Negative: dysuria, hematuria Positive: Other - Positive R foot pain and R foot edema. Negative: Myalgia Neurological: Other - Negative dizziness All Other Systems Reviewed And Are Negative: Yes Physical Exam - Summary Physical Exam Summary: Constitutional: Well-developed, Well-nourished, Alert. (-) Distressed Skin: Warm, Dry HENT: Normocephalic; Atraumatic Eyes: Conjunctiva normal Neck: Musculoskeletal ROM normal neck. (-) JVD, (-) Stridor, (-) Tracheal deviation Cardio: Rhythm regular, rate normal, Heart sounds normal; Intact distal pulses; The pedal pulses are 2+ and symmetric. Radial pulses are 2+ and symmetric. (-) Murmur Pulmonary/Chest wall: Effort normal. (-) Respiratory distress, (-) Wheezes, (-) Rales Abd: Soft, (-) Tenderness, (-) Distension, (-) Guarding, (-) Rebound Musculoskeletal: Tenderness and ecchymosis over the 4th and 5th metatarsals. Toe movement is intact. No ankle tenderness. ROM limited by pain. Lymph: (-) Cervical adenopathy Neuro: Alert, Oriented x3 Psych: Mood and affect Normal Triage Information Reviewed: Yes Vital Signs On Initial Exam: Initial Vitals Temp Pulse Resp BP Pulse Ox 98.1 F 95 16 129/67 100 09/19/17 06:24 09/19/17 06:24 18 06:24 18 06:24 18 06:24 Vital Signs Reviewed: Yes Diagnostics - Vital Signs Vital Signs Temp Pulse Resp BP Pulse Ox 09/19/17 06:24 98.1 F 95 16 129/67 100 - Laboratory Lab Statement: Any lab studies that have been ordered have been reviewed, and results considered in the medical decision making process. - Radiology R Foot XR Radiology Interpretation Completed By: Radiologist - R foot XR reveals, per radiologist, nondisplaced fractures of the proximal third and fourth metatarsals. ED physician has reviewed this radiology report. Re-Evaluation - Re-Evaluation First Eval Re-Evaluation Time: 09:40 Change: Improved Comment: Shes feeling comfortable in the sling. Lower Extremity Course/Dx - Course Assessment/Plan: Her skin is intact. Pain is being controlled with parenteral medication. Plan for splinting and non-weight bearing given her amount of pain. Do not suspect compartment syndrome. - Diagnoses Provider Diagnoses: Metatarsal fracture Discharge - Sign-Out/Discharge Documenting (check all that apply): Discharge - Discharge Plan Condition: Stable Disposition: HOME Prescriptions: oxyCODONE TAB* [Roxycodone TAB 5 mg*] 5 mg PO Q6H PRN #20 tab MDD 4 PRN Reason: Pain - Moderate To Severe Patient Education Materials: Oxycodone/Acetaminophen (By mouth), Foot Fracture in Adults (ED) Referrals: Huy Gilliland MD [Medical Doctor] - 3 Days Malina Blount NP [Primary Care Provider] - 3 Days Additional Instructions: RETURN TO THE EMERGENCY DEPARTMENT FOR CHANGING OR WORSENING SYMPTOMS The documentation as recorded by the Lyubov cruz Emily accurately reflects the service I personally performed and the decisions made by , Sarbjit Vegas MD.
== END 2017-09-19 09:51 | disposition home or self-care (01) ==
LOC: ED 06:24
DX: S92.334A Nondisplaced fracture of third metatarsal bone, right foot, initial encounter for closed fracture (principal); S92.344A Nondisplaced fracture of fourth metatarsal bone, right foot, initial encounter for closed fracture; W01.0XXA Fall on same level from slipping, tripping and stumbling without subsequent striking against object, initial encounter; Y93.9 Activity, unspecified; Y92.9 Unspecified place or not applicable; Z88.6 Allergy status to analgesic agent; Z88.1 Allergy status to other antibiotic agents; Z88.5 Allergy status to narcotic agent; F17.210 Nicotine dependence, cigarettes, uncomplicated
CPT/HCPCS: 96372; 99282; J1885; J2270

== ENCOUNTER 2017-10-01 11:46 | Day surgery (SDC) | payer OTHER ==
[~2017-10-01 11:46] MED LIST: Buffered Lidocaine 0.9% SYRIN* 5 ML/SYR SYRINGE INTRADERM ONE; DiMENhydriNATE IV* 50 MG/ML VIAL IV PUSH PRN; Famotidine IV* 10 MG/ML 2 ML (20 mg) IV ONE; Morphine INJ* 2 MG/ML 1 ML CARPUJECT IV PRN; Naloxone* 0.4 MG/ML 1 ML VIAL IV PRN; PROCHLORPERAZINE INJ 5 MG/ML 2 ML VIAL IV PRN; Scopolamine 1.5 mg* PATCH TRANSDERM PRN; oxyCODONE TAB* 5 MG TAB PO PRN
[2017-10-01] MEDS ORDERED: ceFAZolin 2 GM PREMIX (*) 2 GM/50 ML BAG IVPB ONE (12:08)
[2017-10-01] MEDS ORDERED: Famotidine IV* 10 MG/ML 2 ML (20 mg) ONE (12:08)
[2017-10-01] MEDS ORDERED: fentaNYL* 50 MCG/ML 2 ML VIAL (100 MCG VIAL) ONE ×2 (12:37→16:38)
[2017-10-01] MEDS ORDERED: Midazolam* 1 MG/ML 10 ML VIAL (10 MG) ONE (12:37)
[2017-10-01] MEDS ORDERED: Bupivacaine 0.5%* 50 ML VIAL ONE (13:34)
[2017-10-01] MEDS ORDERED: Bupivacaine 0.25% SDV* 30 ML ONE (14:09)
[2017-10-01] MEDS ORDERED: Morphine INJ* 10 MG/ML 1 ML CARPUJECT ONE ×2 (14:53→15:46)
--- NOTE | 2017-10-01 16:03 | OP ---
Operative Report - Blank - Operative Report Date of Operation: 10/01/17 Note: PATIENT: Abby Carlton DATE OF : 1980 DATE OF SURGERY: 10/01/2017 SURGEON: Casey Yu MD HEALTH PROMOTER: ANTHONY Ortiz, whos assistance was necessary for positioning, retraction, help with instrumentation, and closure. ANESTHESIOLOGIST: Inder Cabrera MD PREOPERATIVE DIAGNOSIS: Right foot Lisfranc injury with first and second TMT joint dislocations, 1-4 metatarsal fractures, and middle and lateral cuneiform fractures. POSTOPERATIVE DIAGNOSIS: Right foot Lisfranc injury with first and second TMT joint dislocations, 1-4 metatarsal fractures, and middle and lateral cuneiform fractures. OPERATION: 1. Right foot open reduction and internal fixation of the Lisfranc joint and the 1st and 2nd TMT joints 2. Right foot open reduction and internal fixation of the 2nd metatarsal base fracture 3. Right foot closed treatment of 1st, 3rd and 4th metatarsal fractures 4. Right foot closed treatment of middle and lateral cuneiform fractures ANESTHESIA: GETA IMPLANTS: Arthrex 2.4mm T-plate, 4.0mm cannulated screw TOURNIQUET TIME: Less than 1 hour with a well padded thigh tourniquet at 250 mmHg SPECIMENS: none ESTIMATED BLOOD LOSS: minimal COMPLICATIONS: none STATUS: Stable from the operating room to the recovery room and then home. INDICATIONS FOR PROCEDURE: Abby sustained a right foot Lisfranc injury with multiple fractures and malalignment seen on x-rays. Both operative and non operative treatment alternatives were reviewed. Further, the nature and risks of surgery were reviewed in careful detail, in the office as well as the pre-operative holding area. Our discussions regarding the risks of surgery included, but were not limited to, infection, wound problems, nerve injury, neuroma, RSD, persistent symptoms, blood clot, fracture, post-traumatic arthritis, hardware pain, need for further surgery, malunion, nonunion, persistent midfoot instability, failure of the surgery, and even the remote chance of catastrophic complication , including loss of limb. DESCRIPTION OF PROCEDURE: The patient was seen in the preoperative holding unit and informed written consent was obtained. The appropriate extremity was marked. The patient was then brought to the operating room and carefully positioned on the operating room table. Anesthesia was induced. All bony prominences were padded with great care. A well-padded thigh tourniquet was placed. A chlorhexidine based pre- scrub was performed followed by a chloraprep prep and drape in standard sterile fashion. A surgical safety pause was then conducted in which we confirmed the appropriate patient, extremity, planned procedure, availability of equipment, indication and administration of prophylactic antibiotics, and DVT prophylaxis in the form of a compression boot on the non-surgical extremity. We performed an Esmarch exsanguination of the limb and inflated the tourniquet to 250 mmHg. I utilized a longitudinal incision centered at the base of the first and second metatarsals. I carefully dissected down through the soft tissues with great care taken to protect the superficial and deep neurovascular structures. The deep neurovascular bundle was visualized and carefully protected throughout the procedure. I then exposed the first and second tarsometatarsal joints, both of which were subluxated and grossly unstable. I also exposed the fracture at the base of the 2nd metatarsal and cleaned out the fracture hematoma. This resulted in a nice visualization of the joints. The joints were carefully inspected and given the lack of comminution of the articular surface, I elected not to proceed with a primary fusion, and instead perform an ORIF as we had discussed preoperatively. The first TMT joint was manually reduced and a 0.062 K-wire was used to hold the joint provisionally reduced. Fluoroscopy was used to confirm a good reduction. An arthrex 2.4mm T-plate was then chosen and contoured to fit the dorsum of the first TMT joint and medial column. This was held provisionally with olive wires and then four 2.4mm screws were placed into the first metatarsal and medial cuneiform. The provisional fixation was then removed and the joint was held well reduced. This was confirmed fluoroscopically. All of the screws had excellent purchase. I then turned my attention to the second metatarsal base fracture and second TMT joint. The fracture was reduced provisionally with a dental pick and then a large pointed reduction clamp was used to reduce the second TMT joint and Lisfranc joint complex. A separate incision was made medially and a guidewire for a 4.0 mm cannulated screw was driven from the medial cuneiform through the base of the second metatarsal under fluoroscopic guidance. This was measured and then overdrilled with a cannulated drill. An arthrex 30mm 4.0 mm cannulated screw was then placed over the guidewire. The pointed reduction clamp was then removed and the joints and fracture were held well reduced by the hardware. Fluoroscopy was again used to confirm this. There did not appear to be any hardware in any of the joints. I examined the intercuneiform joints, and did not appreciate any instability. Fluoroscopy was then used to image the 1st, 3rd and 4th metatarsal fractures, as well as the middle and lateral cuneiform fractures, which all appeared well reduced and without any correlated joint instability. Therefore, I decided to treat these fractures in a closed manner. Final fluoroscopic images were obtained. At this point, we irrigated copiously and then closed in layers meticulously utilizing 3-0 Monocryl and 3-0 nylon for the skin. A sterile dressing was then applied followed by a splint with the ankle in a neutral position. The patient was then awakened from anesthesia and transferred to the recovery room in stable condition. There were no complications. All needle and sponge counts were correct at the end of the case. ATTESTATION: I attest I was present and scrubbed and performed the critical portions of the procedure myself. POSTOPERATIVE PLAN: Follow up will be in 2 weeks for likely suture removal and postop x-rays. The postoperative plan is to be [id number] for 2 months , then weight-bearing as tolerated in a boot between months 2-3, and then into regular shoes at 3 months postop.
[2017-10-01] MEDS: fentaNYL* 50 MCG/ML 2 ML VIAL (100 MCG VIAL) IV PRN ×2 (16:39→16:58)
[2017-10-01] MEDS ORDERED: oxyCODONE TAB* 5 MG TAB ONE (16:42)
[2017-10-01] MEDS ORDERED: Flumazenil* 0.1 MG/ML 5 ML MDV ONE (19:04)
[2017-10-01] MEDS ORDERED: Albuterol 2.5 MG/3 ML NEB.SOL* (0.083%) ONE (19:35)
[2017-10-01 19:42] VITALS: BP 121/93
--- NOTE | 2017-10-01 20:42 | RAD ---
INDICATION: Lisfranc injury COMPARISON: September 30, 2017 FINDINGS: 65.6 seconds of fluoroscopy were provided for the orthopedics department. Fluoroscopic spot imaging of the right foot were obtained for operative control and show midfoot ORIF. CPT II Codes: G9500 (fluoro time doc)
[2017-10-04] MEDS ORDERED: Scopolamine PATCH Remove* 1 NOTE MISC PATCH OFF ONE (05:51)
== END 2017-10-01 20:04 | disposition home or self-care (01) ==
LOC: OR 11:46
PROVIDERS: ATTEND Orthopaedic Surgery
DX: S92.344A Nondisplaced fracture of fourth metatarsal bone, right foot, initial encounter for closed fracture (principal); S93.324A Dislocation of tarsometatarsal joint of right foot, initial encounter; F17.210 Nicotine dependence, cigarettes, uncomplicated; W01.0XXA Fall on same level from slipping, tripping and stumbling without subsequent striking against object, initial encounter; Y92.9 Unspecified place or not applicable; K21.9 Gastro-esophageal reflux disease without esophagitis
CPT/HCPCS: 76001; 81025; A9270-GY; C1713; J0690; J2250; J2270; J3010

== ENCOUNTER 2018-01-14 20:43 | Inpatient (IN) | payer OTHER ==
--- OUTSIDE RECORDS SUMMARY | 2018-01-14 21:18 | XMS REPORT ---
:1980 External Reference #:[id number] Author Organization [facility] Address [address] [place] [address] [place] [address] Phone [phone] Care Team Providers Name Role Phone Marc Ramey MD Primary Care Physician Unavailable Payers Type Date Identification Numbers Payment Provider Subscriber Commercial Policy Number: [id number] [employer] Medicaid Abby Carlton PayID: [id number] [place] [id number] Advance Directives Type Date Description Status Comment Other Directive 01/27/2017 Health Care Proxy Current and Verified Problems Date Description Provider Status Onset: 12/13/2016 Alcohol-induced acute pancreatitis Malina Blount, N.P. Active Onset: 12/13/2016 Mild intermittent asthma Malina Blount, N.P. Active Onset: 09/28/2017 Closed fracture of metatarsal bone Casey Yu MD Active Onset: 09/28/2017 Closed traumatic dislocation of Casey Yu MD Active tarsometatarsal joint Family History Date Family Member(s) Problem(s) Comments Father Prostate Cancer Father Hypertension Age 60 Mother Alive And Well Age 58 Children 5 3 Daughters 2 Sons Does not have custody of children. Each have different fathers. Siblings 2 2 Sisters - Healthy Age 38 and 35 Social History Type Date Description Comments Marital Status Single Lives With Boyfriend Cigarette Use current cigarette smoker ETOH Use Currently consumes alcohol Drinks when watching [employer] races once weekly. Recreational Drug Use Denies Drug Use Smoking Light tobacco smoker (10 or fewer cigarettes/day) Allergies, Adverse Reactions, Alerts Date Description Reaction Status Severity Comments 05/05/2013 Codeine active 06/03/2017 Metaxalone active feels "loopy" 06/03/2017 Zithromax active violently ill 07/29/2017 Azithromycin active 11/05/2017 Keflex active Severe Can't breath 11/05/2017 Qvar active Medications Medication Date Status Form Strength Qnty SIG Indications Ordering Provider Walker Sai 11/05 Active Misc 3" 1unit use this to S93.324D Malina Wheels/ s ambulate Varn, N.P. Adjustment Holes/3" With Seat Meloxicam 11/05 Active Tablets 7.5mg 60tab 1 by mouth S93.324D s bid prn Varn, N.P. pain Gabapentin 09/10 Active Tablets 600mg 90tab take 1 F33.9 s three times Varn, N.P. a day Baclofen 06/25 Active Tablets 10mg 45tab Take 1/2 M54.9 s Tablet By Varn, N.P. Mouth Every 8 Hours as Needed For Muscle Spasm Omeprazole 06/24 Active Capsules 20mg 30cap [address] [facility] every day Felicita Kaba Hydroxyzine 01/27 Active Capsules 25mg 30cap one by F41.1 Malina Pamoate s mouth every Varn, N.P. 8 hours as needed for anxiety Ondansetron 12/24 Active Tablets 4mg 20tab 1 tablet R11.2 Dispers s under Varn, N.P. tongue every 8 hours as needed nausea Gabapentin 12/24 Active Capsules 300mg 270ca take 3 M54.5 ps capsules by Varn, N.P. mouth three times a day [id number] Active Tablets 200mg 2 tab as Unknown /0000 needed. Seroquel 00 Active Tablets 25mg 30tab take 1 R11.2 Malina / s tablet by Varn, N.P. mouth at bedtime Oxycodone HCL Active Tablets 5mg 30tab 1 tab po Casey /0000 s q4-6 hours sun Yu MD Cyclobenzaprine Active Tablets 5mg 30tab take one Malina HCL / s tablet by Varn, N.P. mouth every 8 hours prn. may take a second tablet if first not effetive. Aspirin Ec 00 Active Tablets 325mg take 1 tab Unknown /0000 DR by mouth every day x 14 days. with food. Macrobid 11/08 Hx Capsules 100mg 14cap 1 by mouth s twice a day Varn, N.P. - for 7 days 11/15 Sulfamethoxazole/ 11/05 Hx Tablets 800-160mg 14tab one by N39.0 Trimethoprim s mouth twice Varn, N.P. - a day for 7 Qvar 08/21 Hx Aerosol 80mcg/Act 26.1u 2 puffs nits twice daily Varn, N.P. - 11/05 Asmanex HFA 08/18 Hx Aerosol 200mcg/Ac 13gm 1 t inhalation Varn, N.P. - bid 08/21 Doxycycline 06/14 Hx Capsules 100mg one tablet Unknown cl twice daily - for 10 days 06/25 ([facility] DC) Pulmicort 03/11 Hx Aerosol 180mcg/Ac 1unit 2 puffs Flexhal t s twice daily Varn, N.P. - 08/18 Metaxalone 02/27 Hx Tablets 800mg 30tab take 1 M54.5 s tablet 3 Varn, N.P. - times a day 06/02 as needed Oxycodone HCL 02/27 Hx Tablets 5mg 20tab one by M54.5 s mouth every Varn, N.P. - 8 hours as 06/02 needed pain Medrol 02/27 Hx TBPK 4mg 21uni 6 by mouth J45.901 ts day 1, 5 by Varn, N.P. - mouth day 03/05 2, 4 by /2016 mouth day 3, 3 by mouth day 4, 2 by mouth day 5, 1 by mouth day 6 Flovent HFA 02/27 Hx Aerosol 110mcg/Ac 12gm 2 puffs J45.901 t twice daily Varn, N.P. - 03/11 Omeprazole 01/27 Hx Capsules 40mg 30cap [address] [facility] every day Varn, N.P. - 02/27 Flector 12/24 Hx Patches 1.3% 60uni apply 1 M54.5 ts patch twice Varn, N.P. - a day 06/02 Creon 12/12 Hx Caps 6000Unit 90cap One po with Part s each meal Varn, N.P. - tid 01/27 Omeprazole 12/10 Hx Tablets 20mg 30tab [address] church every day Varn, N.P. - 01/27 Oxycodone HCL 12/10 Hx Tablets 5mg 15tab one by K85.90 s mouth every Varn, N.P. - 8 hours as 02/27 needed Oxycodone HCL 00/00 Hx Tablets 10mg 1 po q 4 Unknown /0000 hrs prn - pain MDD 6 03/29 tabs ([facility] /2017 DC summary) Omeprazole 00/00 Hx Capsules 40mg 1 by mouth Unknown /0000 every day - ([facility] DC 06/24 summary) Immunizations CPT Code Status Date Vaccine Lot # [id number] Given 03/27/2014 Tdap - Tetanus/Diptheria/Acellular Pertussis [id number] Given 06/26/2011 Influenza Virus Vaccine, Quadrivalent, Split, Preservative Free 14719 Given 07/31/2009 Influenza Virus Vaccine, Quadrivalent, Split, Preservative Free 58112 Given 07/31/2009 Influenza Virus Vaccine, Quadrivalent, Split, Preservative Free 49187 Given 07/31/2009 Influenza Virus Vaccine, Quadrivalent, Split, Preservative Free 65442 Given 07/31/2009 Influenza Virus Vaccine, Quadrivalent, Split, Preservative Free 30391 Given 07/31/2009 Influenza Virus Vaccine, Quadrivalent, Split, Preservative Free 24708 Given 07/31/2009 Influenza Virus Vaccine, Quadrivalent, Split, Preservative Free 63639 Given 06/25/2007 Influenza Virus Vaccine, Quadrivalent, Split, Preservative Free 44993 Given 06/25/2007 Influenza Virus Vaccine, Quadrivalent, Split, Preservative Free 70353 Given 06/25/2007 Influenza Virus Vaccine, Quadrivalent, Split, Preservative Free 82122 Given 06/25/2007 Influenza Virus 3Yrs & Over 02912 Given 07/08/2004 Tetanus And Diptheria (Td) For Adult Use Preservative Free 48117 Given 07/08/2004 Measles Mumps And Rubella MMR Vital Signs Date Vital Result Comment 12/23/2017 Height 61 inches 5'1" Weight 120.00 lb BP Systolic 112 mmHg BP Diastolic 70 mmHg Body Temperature 97.7 F Pain Level 8 BMI (Body Mass Index) 22.7 kg/m2 11/11/2017 Heart Rate 78 /min BP Systolic 110 mmHg BP Diastolic 74 mmHg Respiratory Rate 14 /min Body Temperature 95.8 F Pain Level 5 11/05/2017 Weight 115.00 lb Heart Rate 104 /min BP Systolic 129 mmHg BP Diastolic 91 mmHg Body Temperature 98.6 F O2 % BldC Oximetry 99 % 10/14/2017 Height 61 inches 5'1" Weight 120.00 lb BP Systolic 130 mmHg BP Diastolic 86 mmHg Body Temperature 98.0 F BMI (Body Mass Index) 22.7 kg/m2 10/06/2017 Height 61 inches 5'1" Weight 120.00 lb BP Systolic 120 mmHg BP Diastolic 78 mmHg Respiratory Rate 16 /min Pain Level 8 BMI (Body Mass Index) 22.7 kg/m2 09/28/2017 Height 61 inches 5'1" Heart Rate 95 /min BP Systolic 138 mmHg BP Diastolic 78 mmHg Respiratory Rate 16 /min Body Temperature 97.6 F Pain Level 8 09/22/2017 Height 61 inches 5'1" Weight 120.00 lb BP Systolic 118 mmHg BP Diastolic 74 mmHg Respiratory Rate 16 /min Body Temperature 96.4 F Pain Level 9 BMI (Body Mass Index) 22.7 kg/m2 09/10/2017 Weight 119.00 lb Heart Rate 93 /min BP Systolic Sitting 135 mmHg BP Diastolic Sitting 90 mmHg Pain Level 10 spine/left foot/left arm pit O2 % BldC Oximetry 98 % 07/29/2017 Weight 115.00 lb Heart Rate 90 /min BP Systolic Sitting 128 mmHg BP Diastolic Sitting 80 mmHg Pain Level 7 O2 % BldC Oximetry 97 % 06/25/2017 Weight 109.75 lb Heart Rate 107 /min BP Systolic Sitting 100 mmHg BP Diastolic Sitting 70 mmHg Body Temperature 97.6 F O2 % BldC Oximetry 96 % 06/03/2017 Height 61 inches 5'1" Weight 116.00 lb Heart Rate 88 /min BP Systolic Sitting 100 mmHg BP Diastolic Sitting 78 mmHg Body Temperature 98.6 F O2 % BldC Oximetry 96 % BMI (Body Mass Index) 21.9 kg/m2 04/13/2017 Heart Rate 94 /min BP Systolic 106 mmHg BP Diastolic 66 mmHg Body Temperature 97.4 F O2 % BldC Oximetry 98 % 03/26/2017 Weight 116.50 lb Heart Rate 95 /min BP Systolic 120 mmHg BP Diastolic 68 mmHg Body Temperature 98.3 F O2 % BldC Oximetry 94 % 01/27/2017 Weight 117.50 lb Heart Rate 100 /min BP Systolic 146 mmHg BP Diastolic 84 mmHg Body Temperature 98.3 F 12/24/2016 Weight 111.00 lb Heart Rate 88 /min BP Systolic 122 mmHg BP Diastolic 84 mmHg O2 % BldC Oximetry 98 % 12/10/2016 Height 48.5 inches 4'0.50" Weight 106.75 lb Heart Rate 84 /min BP Systolic 120 mmHg BP Diastolic 80 mmHg Body Temperature 97.1 F O2 % BldC Oximetry 99 % BMI (Body Mass Index) 31.9 kg/m2 05/05/2013 Height 61 inches 5'1" Weight 95.00 lb Heart Rate 84 /min BP Systolic 137 mmHg BP Diastolic 94 mmHg BMI (Body Mass Index) 17.9 kg/m2 Results Test Date Test Result H/L Range Note Ua Routine 11/05/2017 Ua Specific [place] 1010 Ua PH 6 Ua Color brown Ua Appera cloudy Ua WBC ++ Ua Protein + Ua Glucose ++ Ua Ketones neg. Ua Bilirubin neg. Ua Urobilinogen neg. Ua Nitrite neg. Ua Occult Blood about 250 Urine Culture And Sensitivities 11/05/2017 Urine Culture SEE RESULT BELOW 1 Urinalysis Profile 09/04/2017 Urine Color Yellow Urine Appearance Cloudy Urine Specific [place] 1.021 1.010-1.030 Urine pH 6.0 5-9 Urine Urobilinogen Negative Negative Urine Ketones Negative Negative Urine Protein 1+(30 mg/dL) Negative Urine Leukocytes 1+ Negative Urine Blood Negative Negative Urine Nitrite Negative Negative Urine Bilirubin Negative Negative Urine Glucose Negative Negative Urine White Blood Cell 3+(>20/hpf) Absent Urine Red Blood Cell Absent Absent Urine Bacteria Absent Absent Urine Squamous Epithelial Cell Present Absent Urine Culture And 09/04/2017 Urine Culture SEE RESULT BELOW 2 Sensitivities CBC Auto Diff 09/04/2017 White Blood Count 9.4 10^3/uL 3.5-10.8 Red Blood Count 4.35 10^6/uL 4.0-5.4 Hemoglobin 12.9 g/dL 12.0-16.0 Hematocrit 39 % 35-47 Mean Corpuscular Volume 89 fL 80-97 Mean Corpuscular Hemoglobin 30 pg 27-31 Mean Corpuscular HGB Conc 34 g/dL 31-36 Red Cell Distribution Width 15 % 10.5-15 Platelet Count 255 10^3/uL 150-450 Mean Platelet Volume 8 um3 7.4-10.4 Abs Neutrophils 5.6 10^3/uL 1.5-7.7 Abs Lymphocytes 2.8 10^3/uL 1.0-4.8 Abs Monocytes 0.7 10^3/uL 0-0.8 Abs Eosinophils 0.2 10^3/uL 0-0.6 Abs Basophils 0.1 10^3/uL 0-0.2 Abs Nucleated RBC 0 10^3/uL Granulocyte % 60.2 % 38-83 Lymphocyte % 30.0 % 25-47 Monocyte % 7.3 % High 0-7 Eosinophil % 1.6 % 0-6 Basophil % 0.9 % 0-2 Nucleated Red Blood Cells % 0 Comp Metabolic Panel 09/04/2017 Sodium 136 mmol/L 133-145 Potassium 3.8 mmol/L 3.5-5.0 Chloride 105 mmol/L 101-111 Co2 Carbon Dioxide 24 mmol/L 22-32 Anion Gap 7 mmol/L 2-11 Glucose 81 mg/dL 70-100 Blood Urea Nitrogen 8 mg/dL 6-24 Creatinine 0.73 mg/dL 0.51-0.95 BUN/Creatinine Ratio 11.0 8-20 Calcium 9.0 mg/dL 8.6-10.3 Total Protein 7.4 g/dL 6.4-8.9 Albumin 4.3 g/dL 3.2-5.2 Globulin 3.1 g/dL 2-4 Albumin/Globulin Ratio 1.4 1-3 Total Bilirubin 0.40 mg/dL 0.2-1.0 Alkaline Phosphatase 101 U/L 34-104 Alt 17 U/L 7-52 Ast 27 U/L 13-39 Egfr Non- 90.2 >60 Egfr 116.0 >60 3 Laboratory test finding 09/04/2017 Magnesium 2.1 mg/dL 1.9-2.7 Amylase 41 U/L 29-103 Lipase 34 U/L 11.0-82.0 CRP High Sensitivity 2.35 mg/L 4 Alcohol 54 mg/dL High <10 HCG < 0.60 mIU/mL 5 Troponin-I (TnI) 0.00 ng/mL <0.04 Laboratory test finding 06/24/2017 Lactic Acid 1.2 mmol/L 0.5-2.0 6 CBC Auto Diff 06/24/2017 White Blood Count 8.9 10^3/uL 3.5-10.8 Red Blood Count 4.72 10^6/uL 4.0-5.4 Hemoglobin 14.3 g/dL 12.0-16.0 Hematocrit 43 % 35-47 Mean Corpuscular Volume 90 fL 80-97 Mean Corpuscular Hemoglobin 30 pg 27-31 Mean Corpuscular HGB Conc 33 g/dL 31-36 Red Cell Distribution Width 14 % 10.5-15 Platelet Count 296 10^3/uL 150-450 Mean Platelet Volume 8 um3 7.4-10.4 Abs Neutrophils 5.7 10^3/uL 1.5-7.7 Abs Lymphocytes 2.4 10^3/uL 1.0-4.8 Abs Monocytes 0.6 10^3/uL 0-0.8 Abs Eosinophils 0.1 10^3/uL 0-0.6 Abs Basophils 0.1 10^3/uL 0-0.2 Abs Nucleated RBC 0.01 10^3/uL Granulocyte % 64.2 % 38-83 Lymphocyte % 27.3 % 25-47 Monocyte % 6.8 % 1-9 Eosinophil % 0.8 % 0-6 Basophil % 0.9 % 0-2 Nucleated Red Blood Cells % 0.2 Comp Metabolic Panel 06/24/2017 Sodium 133 mmol/L 133-145 Potassium 3.6 mmol/L 3.5-5.0 Chloride 100 mmol/L Low 101-111 Co2 Carbon Dioxide 23 mmol/L 22-32 Anion Gap 10 mmol/L 2-11 Glucose 82 mg/dL 70-100 Blood Urea Nitrogen 14 mg/dL 6-24 Creatinine 0.93 mg/dL 0.51-0.95 BUN/Creatinine Ratio 15.1 8-20 Calcium 9.4 mg/dL 8.6-10.3 Total Protein 7.4 g/dL 6.4-8.9 Albumin 4.2 g/dL 3.2-5.2 Globulin 3.2 g/dL 2-4 Albumin/Globulin Ratio 1.3 1-3 Total Bilirubin 0.40 mg/dL 0.2-1.0 Alkaline Phosphatase 64 U/L 34-104 Alt 8 U/L 7-52 Ast 14 U/L 13-39 Egfr Non- 68.6 >60 Egfr 88.2 >60 7 Laboratory test finding 06/24/2017 Magnesium 2.1 mg/dL 1.9-2.7 Lipase 541 U/L High 11.0-82.0 Creatine Kinase(CK) 25 U/L 10-223 C Reactive Protein 1.94 mg/L < 5.00 8 HCG < 0.60 mIU/mL 9 Lipid Profile (Trig/Chol/HDL) 06/24/2017 Triglycerides 98 mg/dL 10 Cholesterol 166 mg/dL 11 HDL Cholesterol 49.4 mg/dL 12 LDL Cholesterol 97 mg/dL 13 Laboratory test finding 06/24/2017 Alcohol < 10 mg/dL <10 Urinalysis Profile 06/24/2017 Urine Color Straw Urine Appearance Cloudy Urine Specific [place] 1.002 Low 1.010-1.030 Urine pH 6.0 5-9 Urine Urobilinogen Negative Negative Urine Ketones Negative Negative Urine Protein Negative Negative Urine Leukocytes Negative Negative Urine Blood Negative Negative Urine Nitrite Negative Negative Urine Bilirubin Negative Negative Urine Glucose Negative Negative Arterial Blood Gas 06/12/2017 Fio2 2 PH Arterial 7.35 7.35-7.45 Pco2 Arterial 33 mmHg Low 35-45 Po2 Arterial 78 mmHg Low 80-100 O2 Saturation Arterial 97.2 % 95-98 Base Excess Arterial -6.4 Low -2.0-2.0 14 Hco3 Arterial 19.8 mmol/L 19-31 CBC Auto Diff 06/12/2017 White Blood Count 14.7 10^3/uL High 3.5-10.8 Red Blood Count 4.61 10^6/uL 4.0-5.4 Hemoglobin 13.9 g/dL 12.0-16.0 Hematocrit 43 % 35-47 Mean Corpuscular Volume 92 fL 80-97 Mean Corpuscular Hemoglobin 30 pg 27-31 Mean Corpuscular HGB Conc 33 g/dL 31-36 Red Cell Distribution Width 14 % 10.5-15 Platelet Count 303 10^3/uL 150-450 Mean Platelet Volume 9 um3 7.4-10.4 Abs Neutrophils 12.9 10^3/uL High 1.5-7.7 Abs Lymphocytes 1.0 10^3/uL 1.0-4.8 Abs Monocytes 0.5 10^3/uL 0-0.8 Abs Eosinophils 0.2 10^3/uL 0-0.6 Abs Basophils 0.1 10^3/uL 0-0.2 Abs Nucleated RBC 0 10^3/uL Granulocyte % 87.8 % High 38-83 Lymphocyte % 7.0 % Low 25-47 Monocyte % 3.1 % 1-9 Eosinophil % 1.2 % 0-6 Basophil % 0.9 % 0-2 Nucleated Red Blood Cells % 0 Comp Metabolic Panel 06/12/2017 Sodium 137 mmol/L 133-145 Potassium 4.2 mmol/L 3.5-5.0 Chloride 108 mmol/L 101-111 Co2 Carbon Dioxide 20 mmol/L Low 22-32 Anion Gap 9 mmol/L 2-11 Glucose 122 mg/dL High 70-100 Blood Urea Nitrogen 9 mg/dL 6-24 Creatinine 0.87 mg/dL 0.51-0.95 BUN/Creatinine Ratio 10.3 8-20 Calcium 10.0 mg/dL 8.6-10.3 Total Protein 8.2 g/dL 6.4-8.9 Albumin 4.3 g/dL 3.2-5.2 Globulin 3.9 g/dL 2-4 Albumin/Globulin Ratio 1.1 1-3 Total Bilirubin 0.30 mg/dL 0.2-1.0 Alkaline Phosphatase 90 U/L 34-104 Alt 9 U/L 7-52 Ast 25 U/L 13-39 Egfr Non- 74.1 >60 Egfr 95.3 >60 15 Strep AB Anti Dnase B 06/12/2017 Anti Streptolysin O Antibody 121 IU/mL 0 - 530 Profile Anti-DNase B <74 U/mL 0 - 300 16 Laboratory test 06/12/2017 D Dimer Quantitative 262 ng/mL High Less Than 230 17 finding Amylase 50 U/L 29-103 Lipase < 10 U/L Low 11.0-82.0 C Reactive Protein 222.45 mg/L High < 5.00 18 Troponin-I (TnI) 0.03 ng/mL <0.04 CBC Auto Diff 06/08/2017 White Blood Count 7.7 10^3/uL 3.5-10.8 Red Blood Count 4.69 10^6/uL 4.0-5.4 Hemoglobin 14.4 g/dL 12.0-16.0 Hematocrit 43 % 35-47 Mean Corpuscular Volume 91 fL 80-97 Mean Corpuscular Hemoglobin 31 pg 27-31 Mean Corpuscular HGB Conc 34 g/dL 31-36 Red Cell Distribution Width 14 % 10.5-15 Platelet Count 285 10^3/uL 150-450 Mean Platelet Volume 9 um3 7.4-10.4 Abs Neutrophils 4.0 10^3/uL 1.5-7.7 Abs Lymphocytes 2.7 10^3/uL 1.0-4.8 Abs Monocytes 0.6 10^3/uL 0-0.8 Abs Eosinophils 0.2 10^3/uL 0-0.6 Abs Basophils 0.1 10^3/uL 0-0.2 Abs Nucleated RBC 0.01 10^3/uL Granulocyte % 52.6 % 38-83 Lymphocyte % 35.3 % 25-47 Monocyte % 7.9 % 1-9 Eosinophil % 3.0 % 0-6 Basophil % 1.2 % 0-2 Nucleated Red Blood Cells % 0.1 Laboratory test finding 06/08/2017 Lipase 18 U/L 11.0-82.0 CRP High Sensitivity 3.72 mg/L 19 HCG < 0.60 mIU/mL 20 Comp Metabolic Panel 06/08/2017 Sodium 134 mmol/L 133-145 Potassium 3.5 mmol/L 3.5-5.0 Chloride 103 mmol/L 101-111 Co2 Carbon Dioxide 27 mmol/L 22-32 Anion Gap 4 mmol/L 2-11 Glucose 84 mg/dL 70-100 Blood Urea Nitrogen 6 mg/dL 6-24 Creatinine 0.78 mg/dL 0.51-0.95 BUN/Creatinine Ratio 7.7 Low 8-20 Calcium 9.7 mg/dL 8.6-10.3 Total Protein 7.3 g/dL 6.4-8.9 Albumin 4.2 g/dL 3.2-5.2 Globulin 3.1 g/dL 2-4 Albumin/Globulin Ratio 1.4 1-3 Total Bilirubin 0.20 mg/dL 0.2-1.0 Alkaline Phosphatase 54 U/L 34-104 Alt 12 U/L 7-52 Ast 20 U/L 13-39 Egfr Non- 84.0 >60 Egfr 108.1 >60 21 Urine Culture And Sensitivities 06/08/2017 Urine Culture SEE RESULT BELOW 22 Urinalysis Profile 06/08/2017 Urine Color Red Urine Appearance Cloudy Urine pH TNP 5-9 23 Urine Urobilinogen TNP Negative 24 Urine Ketones TNP Negative 25 Urine Protein TNP Negative 26 Urine Leukocytes TNP Negative 27 Urine Blood TNP Negative 28 Urine Nitrite TNP Negative 29 Urine Bilirubin TNP Negative 30 Urine Glucose TNP Negative 31 Urine Specific [place] 1.005 Low 1.010-1.030 Urine White Blood Cell 3+(>20/hpf) Absent Urine Red Blood Cell 3+(>10/hpf) Absent Urine Bacteria 1+ Absent Urine Squamous Epithelial Cell Present Absent Comp Metabolic Panel 04/14/2017 Sodium 136 mmol/L 133-145 Potassium 3.9 mmol/L 3.5-5.0 Chloride 102 mmol/L 101-111 Co2 Carbon Dioxide 28 mmol/L 22-32 Anion Gap 6 mmol/L 2-11 Glucose 90 mg/dL 70-100 Blood Urea Nitrogen 10 mg/dL 6-24 Creatinine 0.85 mg/dL 0.51-0.95 BUN/Creatinine Ratio 11.8 8-20 Calcium 9.2 mg/dL 8.6-10.3 Total Protein 6.7 g/dL 6.4-8.9 Albumin 4.2 g/dL 3.2-5.2 Globulin 2.5 g/dL 2-4 Albumin/Globulin Ratio 1.7 1-3 Total Bilirubin 0.50 mg/dL 0.2-1.0 Alkaline Phosphatase 67 U/L 34-104 Alt 29 U/L 7-52 Ast 35 U/L 13-39 Egfr Non- 76.1 >60 Egfr 97.9 >60 32 Laboratory test finding 04/14/2017 Amylase 40 U/L 29-103 Lipase 40 U/L 11.0-82.0 Drug Abuse 20 Urine 04/13/2017 Urine Amphetamine Negative ng/mL 33 Urine Barbiturates Negative ng/mL 34 Urine Benzodiazepines Negative ng/mL 35 Urine Cocaine Negative ng/mL 36 Urine Phencyclidine Negative ng/mL Cutoff: 25 Urine Tetrahydrocannabinol Negative ng/mL Cutoff: 50 37 Creatinine, Urine 122.2 mg/dL Specific [place] 1.004 pH 7.4 Oxidants Negative 38 Adulterants Comment Normal Codeine, Ur Not Detected ng/mL Cutoff: 25 39 Ttrcqso-2-rxmk-glucuronide, Ur Not Detected ng/mL 40 Morphine, Ur Not Detected ng/mL Cutoff: 25 41 Hytqpcoo-5-nsju-glucuronide, U Not Detected ng/mL 42 6-monoacetylmorphine, Ur Not Detected ng/mL Cutoff: 25 43 Hydrocodone, Ur Not Detected ng/mL Cutoff: 25 44 Norhydrocodone, Ur Not Detected ng/mL Cutoff: 25 45 Dihydrocodeine, Ur Not Detected ng/mL Cutoff: 25 46 Hydromorphone, Ur Not Detected ng/mL Cutoff: 25 47 Yknjjwfrxuwks6hntskoghtfomhvd Not Detected ng/mL 48 Oxycodone, Ur Present ng/mL Cutoff: 25 49 Noroxycodone, Ur Present ng/mL Cutoff: 25 50 Oxymorphone, Ur Not Detected ng/mL Cutoff: 25 51 Oinbcdptiuw-9-fukg-glucuronide Present ng/mL 52 Noroxymorphone, Ur Present ng/mL Cutoff: 25 53 Fentanyl, Ur Not Detected ng/mL Cutoff: 2 54 Norfentanyl, Ur Not Detected ng/mL Cutoff: 2 55 Meperidine, Ur Not Detected ng/mL Cutoff: 25 56 Normeperidine, Ur Not Detected ng/mL Cutoff: 25 57 Naloxone, Ur Not Detected ng/mL Cutoff: 25 58 Tfcbxpey-7-ejrr-glucuronide, U Not Detected ng/mL 59 Methadone, Ur Not Detected ng/mL Cutoff: 25 60 Eddp, Ur Not Detected ng/mL Cutoff: 25 61 Propoxyphene, Ur Not Detected ng/mL Cutoff: 25 62 Norpropoxyphene, Ur Not Detected ng/mL Cutoff: 25 63 Tramadol, Ur Not Detected ng/mL Cutoff: 25 64 O-desmethyltramadol, Ur Not Detected ng/mL Cutoff: 25 65 Tapentadol, Ur Not Detected ng/mL Cutoff: 25 66 N-desmethyltapentadol, Ur Not Detected ng/mL Cutoff: 50 67 Ogobtlpuue-zgiw-wclybyzatln, U Not Detected ng/mL 68 Buprenorphine, Ur Not Detected ng/mL Cutoff: 5 69 Norbuprenorphine, Ur Not Detected ng/mL Cutoff: 5 70 Norbuprenorphine glucuronide Not Detected ng/mL Cutoff: 20 71 Opioid Interpretation See Comment 72 Laboratory test finding 04/10/2017 TSH (Thyroid Stim Horm) 0.66 mcIU/mL 0.34-5.60 Vitamin B12 197 pg/mL 180-914 73 Glucose 101 mg/dL High 70-100 Laboratory test finding 12/15/2016 Lipase 32 U/L 11.0-82.0 Amylase 37 U/L 29-103 Comp Metabolic Panel 12/15/2016 Sodium 137 mmol/L 133-145 Potassium 3.6 mmol/L 3.5-5.0 Chloride 104 mmol/L 101-111 Co2 Carbon Dioxide 29 mmol/L 22-32 Anion Gap 4 mmol/L 2-11 Glucose 87 mg/dL 70-100 Blood Urea Nitrogen 8 mg/dL 6-24 Creatinine 0.68 mg/dL 0.51-0.95 BUN/Creatinine Ratio 11.8 8-20 Calcium 9.0 mg/dL 8.6-10.3 Total Protein 6.0 g/dL Low 6.4-8.9 Albumin 3.4 g/dL 3.2-5.2 Globulin 2.6 g/dL 2-4 Albumin/Globulin Ratio 1.3 1-3 Total Bilirubin 0.50 mg/dL 0.2-1.0 Alkaline Phosphatase 80 U/L 34-104 Alt 7 U/L 7-52 Ast 20 U/L 13-39 Egfr Non- 98.5 >60 Egfr 126.6 >60 74 CBC Auto Diff 12/15/2016 White Blood Count 13.8 10^3/uL High 3.5-10.8 Red Blood Count 4.69 10^6/uL 4.0-5.4 Hemoglobin 13.8 g/dL 12.0-16.0 Hematocrit 43 % 35-47 Mean Corpuscular Volume 92 fL 80-97 Mean Corpuscular Hemoglobin 30 pg 27-31 Mean Corpuscular HGB Conc 32 g/dL 31-36 Red Cell Distribution Width 16 % High 10.5-15 Platelet Count 164 10^3/uL 150-450 Mean Platelet Volume 9 um3 7.4-10.4 Abs Neutrophils 10.4 10^3/uL High 1.5-7.7 Abs Lymphocytes 2.3 10^3/uL 1.0-4.8 Abs Monocytes 0.8 10^3/uL 0-0.8 Abs Eosinophils 0.3 10^3/uL 0-0.6 Abs Basophils 0 10^3/uL 0-0.2 Abs Nucleated RBC 0.01 10^3/uL Granulocyte % 74.9 % 38-83 Lymphocyte % 16.5 % Low 25-47 Monocyte % 5.9 % 1-9 Eosinophil % 2.4 % 0-6 Basophil % 0.3 % 0-2 Nucleated Red Blood Cells % 0 1 SEE RESULT BELOW Name: ABBY CARLTON : [address]: Malina Blount NP Acct: [id number] Unit: [id number] AGE: 37 Location: [facility] Re11/05/17 SEX: F Status: REG REF SPEC: [id number] EH: 11/05/17-[address]: Malina Blount NP REQ: [id number] RECD: 11/05/17 STATUS: COMP _ SOURCE: URINE SPDES: ORDERED: Urine Culture COMMENTS: [id number] Urine Source: Clean Catch Procedure Result Reported Site Urine Culture Final 11/07/17- 842 ML Organism 1 ESCHERICHIA COLI [place] Count >100,000 (Many) CFU/ML 1. ESCHERICHIA COLI [facility].I.[facility]. RX --------- ------ Ampicillin 4 S Cefazolin <=4 S Cefepime <=1 S Ceftriaxone <=1 S Ciprofloxacin <=0.25 S Gentamicin <=1 S Levofloxacin <=0.12 S Meropenem <=0.25 S Nitrofurantoin <=16 S Tetracycline <=1 S Pipercillin/Tazobactam <=4 S Trimethoprim/Sulfamethoxazole >=320 R Amoxicillin/Clavulanic Acid <=2 S Aztreonam <=1 S Contact the Microbiology Department for any additional antibiotic reporting. * ML - Main Lab . END OF REPORT DEPARTMENT OF PATHOLOGY, [address] [place] [address] Francisco Marques M.D. Director [facility] # [id number] 2 SEE RESULT BELOW Name: ABBY CARLTON : [address]: Jose Lorenzo MD Acct: [id number] Unit: [id number] AGE: 37 Location: ED Re09/04/17 SEX: F Status: DEP ER SPEC: [id number] EH: 09/04/17-[address] [facility] [address]: Lavern CRUZ REQ: [id number] RECD: 09/04/17 STATUS: LOIDA MCKNIGTH DR: Leila Blount LINUX ENGINEER _ SOURCE: URINE SPDESC: ORDERED: Urine Culture Procedure Result Reported Site Urine Culture Final 09/06/17- 1010 ML Mixed iban; possible contamination. Suggest resubmission. * ML - Main Lab . END OF REPORT DEPARTMENT OF PATHOLOGY, [address] [place] [address] Francisco Marques M.D. Director [facility] # [id number] 3 Because ethnic data is not always readily available, this report includes an eGFR for both -Americans and non- Americans. The National Kidney Disease Education Program (NKDEP) does not endorse the use of the MDRD equation for patients that are not between the ages of 18 and 70, are , have extremes of body size, muscle mass, or nutritional status, or are non- or non-. According to the National Kidney Foundation, irrespective of diagnosis, the stage of the disease is based on the level of kidney function: Stage Description GFR(mL/min/1.73 m(2)) 1 Kidney damage with normal or decreased GFR 90 2 Kidney damage with mild decrease in GFR 60-89 3 Moderate decrease in GFR 30-59 4 Severe decrease in GFR 15-29 5 Kidney failure <15 (or dialysis) 4 Low risk: <1.00 Average risk: 1.00-3.00 High risk: >3.00 5 <5.0 Negative 5.0 - 25.0 Indeterminate (Repeat testing recommended after 72 hours) >25.0 Positive Perimenopausal women can display HCG levels of up to 20 mIU/mL 6 [facility] Severe Sepsis and Septic Shock Management Bundle Measure requires all lactic acids initially measuring >2.0 mmol/L be repeated. 7 Because ethnic data is not always readily available, this report includes an eGFR for both -Americans and non- Americans. The National Kidney Disease Education Program (NKDEP) does not endorse the use of the MDRD equation for patients that are not between the ages of 18 and 70, are , have extremes of body size, muscle mass, or nutritional status, or are non- or non-. According to the National Kidney Foundation, irrespective of diagnosis, the stage of the disease is based on the level of kidney function: Stage Description GFR(mL/min/1.73 m(2)) 1 Kidney damage with normal or decreased GFR 90 2 Kidney damage with mild decrease in GFR 60-89 3 Moderate decrease in GFR 30-59 4 Severe decrease in GFR 15-29 5 Kidney failure <15 (or dialysis) 8 Acute inflammation: >10.00 9 <5.0 Negative 5.0 - 25.0 Indeterminate (Repeat testing recommended after 72 hours) >25.0 Positive Perimenopausal women can display HCG levels of up to 20 mIU/mL 10 Desirable: <150 Borderline High: 150-199 High: 200-499 Very High: >500 11 Desirable: <200 Borderline High: 200-239 High: >239 12 Low: <40 Desirable: 40-60 High: >60 13 Desirable: <100 Near Optimal: 100-129 Borderline High: 130-159 High: 160-189 Very High: >189 14 Reference ranges based on room air. 15 Because ethnic data is not always readily available, this report includes an eGFR for both -Americans and non- Americans. The National Kidney Disease Education Program (NKDEP) does not endorse the use of the MDRD equation for patients that are not between the ages of 18 and 70, are , have extremes of body size, muscle mass, or nutritional status, or are non- or non-. According to the National Kidney Foundation, irrespective of diagnosis, the stage of the disease is based on the level of kidney function: Stage Description GFR(mL/min/1.73 m(2)) 1 Kidney damage with normal or decreased GFR 90 2 Kidney damage with mild decrease in GFR 60-89 3 Moderate decrease in GFR 30-59 4 Severe decrease in GFR 15-29 5 Kidney failure <15 (or dialysis) 16 Test Performed by: [address] [id number] 17 Please note: The following may produce a false positive D Dimer test: - Rheumatoid factor greater than 60 IU/ml - Plasma hemoglobin greater than 0.05 gm/dl - Bilirubin greater than 50 mg/dl - Lipids greater than 1000 mg/dl - FDP greater than 20 ug/ml 18 Acute inflammation: >10.00 19 Low risk: <1.00 Average risk: 1.00-3.00 High risk: >3.00 20 <5.0 Negative 5.0 - 25.0 Indeterminate (Repeat testing recommended after 72 hours) >25.0 Positive Perimenopausal women can display HCG levels of up to 20 mIU/mL 21 Because ethnic data is not always readily available, this report includes an eGFR for both -Americans and non- Americans. The National Kidney Disease Education Program (NKDEP) does not endorse the use of the MDRD equation for patients that are not between the ages of 18 and 70, are , have extremes of body size, muscle mass, or nutritional status, or are non- or non-. According to the National Kidney Foundation, irrespective of diagnosis, the stage of the disease is based on the level of kidney function: Stage Description GFR(mL/min/1.73 m(2)) 1 Kidney damage with normal or decreased GFR 90 2 Kidney damage with mild decrease in GFR 60-89 3 Moderate decrease in GFR 30-59 4 Severe decrease in GFR 15-29 5 Kidney failure <15 (or dialysis) 22 SEE RESULT BELOW Name: ABBY CARLTON : [address]: Jose Lorenzo MD Acct: [id number] Unit: [id number] AGE: 36 Location: ED Re06/08/17 SEX: F Status: DEP ER SPEC: [id number] HE: 06/08/[address]: Lavern CRUZ REQ: [id number] RECD: 06/08/17 STATUS: LOIDA MCKNIGHT DR: [facility] Malina Blount 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 END OF REPORT * ML=Testing performed at Main Lab DEPARTMENT OF PATHOLOGY, [address] [place] [address] Francisco Marques M.D. Director [facility] # [id number] 23 Unable to evaluate urinalysis dipstick results due to interfering color. Notified [id number] 06/08/17. 24 Unable to evaluate urinalysis dipstick results due to interfering color. Notified [id number] 1835 06/08/17. 25 Unable to evaluate urinalysis dipstick results due to interfering color. Notified [id number] 183 06/08/17. 26 Unable to evaluate urinalysis dipstick results due to interfering color. Notified [id number] 183 06/08/17. 27 Unable to evaluate urinalysis dipstick results due to interfering color. Notified [id number] 183 06/08/17. 28 Unable to evaluate urinalysis dipstick results due to interfering color. Notified [id number] [facility] 06/08/17. 29 Unable to evaluate urinalysis dipstick results due to interfering color. Notified [id number] [facility] 06/08/17. 30 Unable to evaluate urinalysis dipstick results due to interfering color. Notified [id number] 1835 06/08/17. 31 Unable to evaluate urinalysis dipstick results due to interfering color. Notified [id number] 1835 06/08/17. 32 Because ethnic data is not always readily available, this report includes an eGFR for both -Americans and non- Americans. The National Kidney Disease Education Program (NKDEP) does not endorse the use of the MDRD equation for patients that are not between the ages of 18 and 70, are , have extremes of body size, muscle mass, or nutritional status, or are non- or non-. According to the National Kidney Foundation, irrespective of diagnosis, the stage of the disease is based on the level of kidney function: Stage Description GFR(mL/min/1.73 m(2)) 1 Kidney damage with normal or decreased GFR 90 2 Kidney damage with mild decrease in GFR 60-89 3 Moderate decrease in GFR 30-59 4 Severe decrease in GFR 15-29 5 Kidney failure <15 (or dialysis) 33 REFERENCE VALUE Cutoff: 500 34 REFERENCE VALUE Cutoff: 200 35 REFERENCE VALUE Cutoff: 100 36 REFERENCE VALUE Cutoff: 150 37 ADDITIONAL INFORMATION This report is intended for use in clinical monitoring or management of patients. It is not intended for use in employment-related testing. 38 REFERENCE VALUE Cutoff: 200 mg/L 39 Tylenol 3 40 Metabolite of codeine REFERENCE VALUE Cutoff: 100 41 Coco Schmid, Contin; Also a minor metabolite (10%) of codeine and can be seen in low concentrations (<2,000 ng/mL) with poppy seed ingestion. 42 Metabolite of morphine REFERENCE VALUE Cutoff: 100 43 Metabolite of heroin 44 Lortab, [place], Vicodin; Also a very minor metabolite of codeine and impurity (<1%) of oxycodone. 45 Metabolite of hydrocodone 46 Metabolite of hydrocodone 47 Dilaudid, Exalgo; Also a metabolite of hydrocodone and a minor (<5%) metabolite of morphine. 48 Metabolite of hydromorphone REFERENCE VALUE Cutoff: 100 49 Endocet, Percocet, Oxycontin 50 Metabolite of oxycodone 51 Numorphan, Opana; Also a metabolite of oxycodone. 52 Metabolite of oxymorphone REFERENCE VALUE Cutoff: 100 53 Metabolite of oxymorphone 54 Actiq, Duragesic, [place] 55 Metabolite of fentanyl 56 Demerol 57 Metabolite of meperidine 58 Narcan 59 Metabolite of naloxone REFERENCE VALUE Cutoff: 100 60 Dolophine 61 Metabolite of methadone 62 Darvon, Darvocet 63 Metabolite of propoxyphene 64 Tradol, Ultram, Ultracet 65 Metabolite of tramadol 66 Nucynta 67 Metabolite of tapentadol 68 Metabolite of tapentadol REFERENCE VALUE Cutoff: 100 69 Buprenex, Suboxone 70 Metabolite of buprenorphine 71 Metabolite of buprenorphine 72 Test detected the presence of oxycodone and several metabolites (noroxycodone, noroxymorphone, and anhvqovmjfm-1-aplw-glucuronide). Suspect use of oxycodone or possibly oxycodone and oxymorphone within the past three days. ADDITIONAL INFORMATION This test was developed and its performance characteristics determined by [facility] in a manner consistent with CLIA requirements. This test has not been cleared or approved by the U.S. Food and Drug Administration. Test Performed by: [facility] [address] [place] [address] 73 Normal Range 180 to 914 Indeterminate Range 145 to 180 Deficient Range <145 74 Because ethnic data is not always readily available, this report includes an eGFR for both -Americans and non- Americans. The National Kidney Disease Education Program (NKDEP) does not endorse the use of the MDRD equation for patients that are not between the ages of 18 and 70, are , have extremes of body size, muscle mass, or nutritional status, or are non- or non-. According to the National Kidney Foundation, irrespective of diagnosis, the stage of the disease is based on the level of kidney function: Stage Description GFR(mL/min/1.73 m(2)) 1 Kidney damage with normal or decreased GFR 90 2 Kidney damage with mild decrease in GFR 60-89 3 Moderate decrease in GFR 30-59 4 Severe decrease in GFR 15-29 5 Kidney failure <15 (or dialysis) Procedures Date CPT Code Description Status 10/14/2017 27565 Short Leg Cast Completed 10/06/2017 63928 Short Leg Cast Completed 10/01/2017 09355 Dislocation Tarsometatarsal JT W/Wo Fixation Open TX Completed 10/01/2017 68467 Dislocation Tarsometatarsal JT W/Wo Fixation Open TX Completed 10/01/2017 40383 Dislocation Tarsometatarsal JT W/Wo Fixation Open TX Completed 10/01/2017 10356 Dislocation Tarsometatarsal JT W/Wo Fixation Open TX Completed 10/01/2017 98454 Open TX Metatarsal FX,Incl Intl Fixation When Performed Completed 10/01/2017 45596 FX Metatarsal Care Completed 10/01/2017 27965 FX Metatarsal Care Completed 10/01/2017 45889 FX Tarsal Care Completed 10/01/2017 43825 FX Tarsal Care Completed 06/12/2017 41600 ECHO Transthorasic Realtime 2D W Doppler & Color Flow Completed Hosp 06/12/2017 88848 EKG, Interpretation Only Completed Encounters Type Date Location Provider CPT E/M Dx Office Visit 11/05/2017 [facility] Internal Medicine Malina Blount, N.P. 53561 Z00.00 11:20a - [place] F33.9 J45.20 F17.210 N39.0 K21.9 S93.324D Office Visit 09/28/2017 3:45p [place] [address] S92.334A Of Jesu S92.344A S93.324A Office Visit 09/22/2017 2:00p [place] [address] S92.334A Of Jesu S92.344A Office Visit 09/10/2017 9:00a [facility] Internal Medicine Malina Blount, N.P. 90999 F33.9 - [place] G89.4 Office Visit 07/29/2017 9:50a [facility] Internal Medicine Anastasia Rodriguesan, 48091 M79.644 - Noelle Mims Z79.899 Office Visit 06/25/2017 9:00a [facility] [place] [address] J18.9 [place] M54.9 R79.9 R10.9 Office Visit 06/24/2017 10:14a [facility], Norma Eller, N.P. 78284 K86.1 Hospitalists Office Visit 06/13/2017 7:16a [facility]pc Norma Eller, N.P. 29951 J18.9 Hospitalists J45.20 Office Visit 06/12/2017 10:34a [facility] [place] [address] R06.02 Services Of [facility] N20.1 R00.0 R10.12 Office Visit 06/03/2017 11:20a [facility] Internal Medicine Mitesh Kimball, 39364 R07.89 - Noelle Mims Office Visit 04/13/2017 4:00p [facility] Internal Medicine Malina Blount, N.P. 56191 K86.0 - [place] M54.5 Office Visit 03/26/2017 10:40a [facility] Internal Medicine Malina Blount, N.P. 38603 M54.5 - [place] F41.1 K85.20 M79.2 Office Visit 03/08/2017 9:33a [place] [address] K85.20 Assoc,pc Hospitalists M54.5 J45.20 G89.29 Office Visit 03/07/2017 9:33a [place] [address] K85.20 Assoc,pc Hospitalists M54.5 J45.20 G89.29 Office Visit 03/06/2017 9:32a [facility] [place] [address] K85.20 Assoc, Hospitalists Felicita M54.5 J45.20 G89.29 Office Visit 02/27/2017 4:20p [facility] Internal Medicine Malina Blount, N.P. 95220 M54.5 - [place] J45.901 Office Visit 01/27/2017 2:20p [facility] Internal Medicine Malina Blount, N.P. 13546 R11.2 - [place] M54.5 F41.1 G47.00 B35.3 Office Visit 12/24/2016 3:00p [facility] Internal Medicine Malina Blount, N.P. 32952 K85.90 - [place] R11.2 M54.5 Office Visit 12/10/2016 4:00p [facility] Internal Medicine Malina Blount, N.P. 48817 J18.9 - [place] K85.90 R11.2 Office Visit 11/22/2016 8:29a [facility], Chasidy Ivy, 40773 J18.9 Hospitalists Felicita K85.90 Office Visit 11/21/2016 8:29a [facility], Chasidy Ivy, 37263 J18.9 Hospitalists Felicita M54.5 K85.90 J45.20 Office Visit 11/20/2016 8:28a [facility], Barbara Issa, 41732 J18.9 Hospitalists MHarsh K85.90 Office Visit 11/19/2016 8:27a [facility], Barbara Issa, 93748 J18.9 Hospitalists MHarsh M54.5 K85.90 Office Visit 11/18/2016 8:26a [facility] [place] [address] J18.9 Assoc, Hospitalists Felicita M54.5 K85.90 J45.20 Office Visit 11/15/2016 10:39a [facility] Jesus, [address]779 K85.20 Assoc,pc Hospitalists Felicita N30.00 M54.5 F10.231 Office Visit 11/14/2016 2:34p [facility] Miller Garner [address] K85.20 Hospitalists Laith Dalton. Office Visit 11/13/2016 2:33p [facility] Miller Garner [address]41 K85.20 Hospitalists Philip Dalton N30.00 F10.231 Office Visit 11/12/2016 2:32p [facility] Miller Garner 60537 K85.20 Hospitalists Philip Dalton F10.231 Office Visit 11/12/2016 10:38a [facility] Samuel Finley, 33757 K85.20 Hospitalists Felicita M54.5 F10.231 Office Visit 11/11/2016 10:38a [facility],pc Samuel Finley, 56206 K85.20 Hospitalists Felicita M54.5 F10.10 Office Visit 11/10/2016 10:35a [facility], 36258 K85.20 Assoc, Hospitalists N.P. M54.5 F10.10 Office Visit 05/05/2013 10:00a [facility] Lares, [address] 354.0 [facility] 727.42 Plan of Care Future Appointment(s):02/03/2018 3:45 pm - Casey Yu MD at [facility].ACarmina12/23/2017 - Casey Yu MDS93.324D Dislocation of tarsometatarsal joint of right foot, subsNew Xrays:Foot Right 3+ VWSS92.334D Nondisp fx of 3rd metatarsal bone, r ft, 1bpYE92.344D Nondisp fx of 4th metatarsal bone, r ft, 7thD
[2018-01-14] MEDS ORDERED: NS 0.9% 1000 ML* 2,000 ML IV ONE (23:24)
[2018-01-14] MEDS ORDERED: Morphine INJ* 10 MG/ML 1 ML CARPUJECT IV ONE (23:24)
[2018-01-14] MEDS ORDERED: Clindamycin CAP* 150 MG PO ONE (23:33)
[2018-01-14 23:50] LABS: Urine Appearance Cloudy; Urine Blood Negative (Negative); Urine Color Yellow; Urine Ketones Trace (Negative); Urine Protein 1+(30 mg/dL) (Negative); Urine Red Blood Cell Trace(0-2/hpf) (Absent); Urine Specific Gravity 1.018 (1.010-1.030); Urine Urobilinogen Negative (Negative); Urine White Blood Cell 3+(>20/hpf) (Absent)
[2018-01-14 23:54] LABS: ABS Basophils 0.1 10^3/ul (0-0.2); ABS Eosinophils 0.1 10^3/ul (0-0.6); ABS Lymphocytes 1.2 10^3/ul (1.0-4.8); ABS Monocytes 0.8 10^3/ul (0-0.8); ABS Neutrophils 8.8 10^3/ul (1.5-7.7); ABS Nucleated RBC 0 10^3/ul; Eosinophil % 0.8 % (0-6); Hematocrit 43 % (35-47); Hemoglobin 14.5 g/dl (12.0-16.0); Mean Corpuscular HGB Conc 34 g/dl (31-36); Mean Corpuscular Hemoglobin 31 pg (27-31); Mean Corpuscular Volume 91 fL (80-97); Mean Platelet Volume 7.9 um3 (7.4-10.4); Nucleated Red Blood Cells % 0; Platelet Count 173 10^3/ul (150-450); Red Blood Count 4.72 10^6/ul (4.00-5.40); Red Cell Distribution Width 20 % (10.5-15)
[2018-01-14] MEDS ORDERED: Morphine INJ** 4 MG/ML 1 ML CARPUJECT IV ONE (23:58)
[2018-01-15] MEDS ORDERED: Ondansetron INJ* 2 MG/ML VIAL ONE (00:04)
[2018-01-15 00:13] LABS: EGFR Non-African American 75.7 (>60)
--- NOTE | 2018-01-15 00:13 | ED ---
HPI Chest Pain - HPI Summary HPI Summary: This is scribe Carlos Saeedsain documenting for attending Dr. Larry Ricks MD. A 37 y/o female presents to ED c/o chest pain and abdominal pain (near kidneys) which radiates to her back. According to the patient, the pain started when she woke up last night at 0230 (01/14/2018). The pain is in the chest and upper abdomen and goes around the sides near the kidney area. Additionally, it radiates up her back. She noted that the back pain is intermittent and it " comes in waves". Additional symptoms include SOB due to the pain. She noted that she has never experience something like the before. Pt denies any N/V/D, and urinary pain/burning/blood. PMHx of renal calculi (pass stones). To alleviate symptoms, she tried eating and drinking various products but they actually aggravated the symptoms. SHx of heavy smoker, no work. Current medications include Gabapentin. Allergic to codeine as she gets hives. It was noted in the ED room, patient was in obvious distress and shaking. - History of Current Complaint Chief Complaint: EDChestPainROMI Time Seen by Provider: 01/14/18 23:19 Hx Obtained From: Patient Hx Last Menstrual Period: 2 months ago Onset/Duration: Started Days Ago - Last night at 0230, Still Present Timing: Constant - Chest and abdominal pain, Intermittent - Back pain Initial Severity: Severe Current Severity: Severe Pain Intensity: 10 Pain Scale Used: 0-10 Numeric Chest Pain Location: Diffuse Chest Pain Radiates: Yes Chest Pain Radiates To:: Back, Other - Abdomen Aggravating Factor(s): Other: - Drinking, eating and palpation Alleviating Factor(s): Nothing Associated Signs and Symptoms: Positive: Chest Pain, Shortness of Breath, Back Pain, Abdominal Pain, Other: - Shaking from distress. Negative: Nausea, Vomiting - Additional Pertinent History Primary Care Physician: [id number] - Allergy/Home Medications Allergies/Adverse Reactions: Allergies Allergy/AdvReac Type Severity Reaction Status Date / Time acetaminophen Allergy Difficulty Verified 10/01/17 12:17 Swallowing azithromycin Allergy Vomiting Verified 10/01/17 12:17 cephalexin [From Keflex] Allergy Palpitation Verified 10/01/17 12:17 s ciprofloxacin Allergy Difficulty Verified 10/01/17 12:17 Breathing codeine Allergy Hives Verified 10/01/17 12:17 Home Medications: Home Medications hydrOXYzine HCL TAB* [Atarax 25 MG TAB*] 25 mg PO QID PRN 01/15/18 [History Confirmed 01/15/18] PMH/Surg Hx/FS Hx/Imm Hx Endocrine/Hematology History: Reports: Hx Anemia - Hx OF YEARS AGO, Denies: Hx Diabetes Cardiovascular History: Denies: Hx Hypercholesterolemia, Hx Hypertension Respiratory History: Reports: Hx Asthma - Hx OF HAS MEDS AVAILABLE WHEN IT "FLARES UP", Other Respiratory Problems/Disorders - pt reports sob-uncertain etiology BRONCHITIS GI History: Reports: Hx Gastroesophageal Reflux Disease - ON DAILY MEDS, Other GI Disorders - SPRING/SUMMER 2016 PANCREATITIS History: Reports: Other Problems/Disorders - Hx pancreatitis Denies: Hx Renal Disease Musculoskeletal History: Reports: Hx Back Problems Sensory History: Denies: Hx Contacts or Glasses, Hx Hearing Aid Opthamlomology History: Denies: Hx Contacts or Glasses Neurological History: Reports: Hx Headaches Psychiatric History: Reports: Hx Anxiety - ON DAILY MEDS, Hx Substance Abuse - alcohol Denies: Hx Eating Disorder, Hx of Violent Episodes Against Others Comment Only: Hx Depression - Hx OF NONE NOW - Surgical History Surgery Procedure, Year, and Place: 2000 urethral stenting with [facility] Hx Anesthesia Reactions: No - Immunization History Date of Tetanus Vaccine: UTD Date of Influenza Vaccine: 03/2017 Infectious Disease History: No Infectious Disease History: Denies: Hx Clostridium Difficile, Hx Hepatitis, Hx Human Immunodeficiency Virus (HIV), Hx of Known/Suspected MRSA, Hx Shingles, Hx Tuberculosis, History Other Infectious Disease, Traveled Outside the [place] in Last 30 Days - Family History Known Family History: Positive: Other - cervical CA, brain tumor - Social History Alcohol Use: None Alcohol Amount: in a recovery program Hx Substance Use: No Substance Use Type: Reports: None, Other Substance Use 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 Negative: Vomiting, Diarrhea, Nausea Negative: burning, dysuria, pain Positive: Other - POSITIVE: Back pain All Other Systems Reviewed And Are Negative: Yes Physical Exam - Summary Physical Exam Summary: Appearance: Well-appearing, Well-nourished, lying in bed comfortably Skin: Warm, dry, no obvious rash Eyes: sclera anicteric, no conjunctival pallor ENT: mucous membranes moist, pharynx appears normal Neck: Supple, nontender Respiratory: Clear to auscultation, no signs of respiratory distress Cardiovascular: Normal S1, S2. No murmurs. Normal distal pulses in tibial and radial bilaterally. Abdomen: Soft, upper abdominal tenderness, guarding in the epigastrium, normal active bowel sounds present Musculoskeletal: Normal, Strength/ROM Intact Neurological: A&Ox3, awake and alert, mentation is normal, speech is fluent and appropriate Psychiatric: affect is normal, does not appear anxious or depressed Triage Information Reviewed: Yes Vital Signs On Initial Exam: Initial Vitals Temp Pulse Resp BP Pulse Ox 97.1 F 114 20 117/99 100 01/14/18 20:44 01/14/18 20:44 01/14/18 20:44 01/14/18 20:44 01/14/18 20:44 Vital Signs Reviewed: Yes Diagnostics - Vital Signs Vital Signs Temp Pulse Resp BP Pulse Ox 01/14/18 23:16 115 25 185/119 99 01/14/18 23:15 110 17 98 01/14/18 20:44 97.1 F 114 20 117/99 100 - Laboratory Lab Results: Lab Results 01/14/18 01/14/18 Range/Units 23:37 23:39 WBC 11.0 H (3.5-10.8) 10^3/ul RBC 4.72 (4.00-5.40) 10^6/ul Hgb 14.5 (12.0-16.0) g/dl Hct 43 (35-47) % MCV 91 (80-97) fL MCH 31 (27-31) pg MCHC 34 (31-36) g/dl RDW 20 H (10.5-15) % Plt Count 173 (150-450) 10^3/ul MPV 7.9 (7.4-10.4) um3 Neut % (Auto) 80.0 (38-83) % Lymph % (Auto) 11.0 L (25-47) % [place] % (Auto) 7.1 H (0-7) % Eos % (Auto) 0.8 (0-6) % Baso % (Auto) 1.1 (0-2) % Absolute Neuts (auto) 8.8 H (1.5-7.7) 10^3/ul Absolute Lymphs (auto) 1.2 (1.0-4.8) 10^3/ul Absolute Monos (auto) 0.8 (0-0.8) 10^3/ul Absolute Eos (auto) 0.1 (0-0.6) 10^3/ul Absolute Basos (auto) 0.1 (0-0.2) 10^3/ul Absolute Nucleated RBC 0 10^3/ul Nucleated RBC % 0 Urine Color Yellow Urine Appearance Cloudy Urine pH 6.0 (5-9) Ur Specific [place] 1.018 (1.010-1.030) Urine Protein 1+(30 mg/dl) A (Negative) Urine Ketones Trace A (Negative) Urine Blood Negative (Negative) Urine Nitrate Negative (Negative) Urine Bilirubin Negative (Negative) Urine Urobilinogen Negative (Negative) Ur Leukocyte Esterase 1+ A (Negative) Urine WBC (Auto) 3+(>20/hpf) A (Absent) Urine RBC (Auto) Trace(0-2/hpf) (Absent) Ur Squamous Epith Cells Present A (Absent) Ur Transition Epith Cell Present A (Absent) Urine Bacteria Absent (Absent) Urine Glucose Negative (Negative) Result Diagrams: 01/15/18 15:14 01/15/18 15:14 Lab Statement: Any lab studies that have been ordered have been reviewed, and results considered in the medical decision making process. - CT CT A/P CT Interpretation Completed By: Radiologist - Acute pancreatitis. Thickening of the bladder wall suggesting the possibility of cystitis. ED PHYSICIAN REVIEWED THIS RADIOLOGY REPORT. - EKG 2055 Cardiac Rate: Tachycardia - 104 BPM EKG Rhythm: Sinus Tachycardia Re-Evaluation - Re-Evaluation First Eval Re-Evaluation Time: 02:34 Comment: DISCUSSED RESULTS. Chest Pain Course/Dx - Diagnoses Provider Diagnoses: Alcoholic pancreatitis - Provider Notifications Discussed Care Of Patient With: Glenda Melton Time Discussed With Above Provider: 02:39 Instructed by Provider To: Other - Accepts for admission. Discharge - Sign-Out/Discharge Documenting (check all that apply): Patient Departure - ADMIT - Discharge Plan Condition: Guarded Disposition: ADMITTED TO [facility] - Billing Disposition and Condition Condition: GUARDED Disposition: Admitted to [facility]
[2018-01-15] MEDS ORDERED: Iohexol 300* (CONTRAST) 10 ML SDV IV ONE (00:22)
[2018-01-15] MEDS ORDERED: Morphine VIAL* 4 MG/ML VIAL (1 ml vial) IV ONE (01:06)
[2018-01-15] MEDS ORDERED: HYDROmorphone INJ* 1 MG/ML CARPUJECT SYRINGE IV SLOW PU PRN (01:08)
[2018-01-15] MEDS ORDERED: HYDROmorphone INJ* 1 MG/ML CARPUJECT SYRINGE ONE (01:30)
[2018-01-15] MEDS ORDERED: HYDROmorphone INJ* 0.5 MG/0.5 ML SYRINGE IV SLOW PU PRN (03:18)
[2018-01-15] MEDS ORDERED: hydrOXYzine HCL TAB* 25 MG PO PRN (03:23)
[2018-01-15] MEDS: NS 0.9% 1000 ML* 2,000 ML IV SCH ×2 (04:59→10:45)
[2018-01-15] MEDS: Baclofen TAB* 10 MG PO PRN ×2 (05:08→20:54)
--- NOTE | 2018-01-15 05:17 | HP ---
CC: Malina Blount NP * HISTORY AND PHYSICAL: DATE OF ADMISSION: 01/15/18. PRIMARY CARE PROVIDER: Malina Blount NP CHIEF COMPLAINT: Abdominal pain. HISTORY OF PRESENT ILLNESS: Ms. Carlton is a 37-year-old female who presents to the emergency room with complaints of severe epigastric pain radiating to the back and chest. She states that this has been going over the last couple of days. This is very similar to episodes of pancreatitis she has had in the past. The patient states that she does not drink on a daily basis. However, she did drink over the last weekend and she states she had a couple of shocks earlier this week. She is frustrated by the fact that she states she cannot even have 1 drink without developing pancreatitis. The patient states her appetite has been very poor. Again, the pain radiates straight into her back and chest. She describes some of the pain is burning in nature, some of the pain is sharp. She is very uncomfortable. PAST MEDICAL HISTORY: 1. Chronic back pain. 2. Asthma. 3. History of alcohol abuse. PAST SURGICAL HISTORY: Right foot surgery. ALLERGIES: CODEINE, TYLENOL, CIPRO, ERYTHROMYCIN and KEFLEX. MEDICATIONS: 1. Gabapentin 900 mg p.o. t.i.d. 2. Hydroxyzine 25 mg p.o. q.i.d. p.r.n. anxiety. 3. Ibuprofen 200 mg p.o. q.6 hours p.r.n. pain. 4. Omeprazole 20 mg p.o. daily. 5. Seroquel 25 mg p.o. q.h.s. 6. Baclofen 10 mg p.o. t.i.d. p.r.n. spasm. FAMILY HISTORY: Mom has questionable brain tumor. She denies any history of breast cancer in her mom. Dad has a history of prostate cancer. SOCIAL HISTORY: The patient smokes generally 1 pack of cigarettes per day, but sometimes will smoke up to 3 packs per day. She admits to occasional alcohol use. However, by report previously, the patient was felt to be a daily drinker. She is disabled. She is not . She has 5 children. She indicates that her boyfriend, Chinmay Valentine is her healthcare proxy. REVIEW OF SYSTEMS: Complete 11-system review of systems is obtained. Pertinent positives and negatives are as per HPI and otherwise negative. PHYSICAL EXAMINATION GENERAL: The patient is a well-developed, young female, sitting in stretcher, appearing to be in mild distress. VITAL SIGNS: Blood pressure 158/110, pulse 107, respirations 14, temp 97.1, O2 sat 97% on room air. HEENT: Pupils are equal and round. Extraocular muscles are intact. Oropharynx is clear. Oral mucosa is moist. The patient is edentulous. There is no submandibular or supraclavicular adenopathy. Thyroid is not enlarged. No thyroid nodules are noted. PULMONARY: Lungs are clear to auscultation bilaterally. CARDIAC: Normal S1, S2. Heart rate is tachycardic. There are no murmurs. There is no lower extremity edema. ABDOMEN: Bowel sounds are present. Abdomen is soft, slightly distended. She is diffusely tender more so, however, in the epigastrium and right upper quadrant. MUSCULOSKELETAL: There is no cyanosis or clubbing of the digits. There is full active range of motion of all 4 extremities. NEURO: Cranial nerves II through XII are grossly intact. Sensation is intact to light touch throughout. Strength is 5/5 and symmetric in both upper and lower extremities bilaterally. PSYCH: The patient is alert. She is oriented x3. Affect appears appropriate. SKIN: Warm and dry. There are no rashes. DIAGNOSTIC STUDIES/LAB DATA: WBC 11.0, hemoglobin 14.5, hematocrit 43, platelets 173. Sodium 134, potassium 2.8, chloride 100, CO2 26, BUN 8, creatinine 0.85. Glucose 100, calcium 9.9, bilirubin 0.9, AST 82, ALT 37, alk phos 161. Albumin is 4.6. Lipase 3111. Urinalysis reveal specific gravity of 1.018, trace ketones, 1+ leukocyte esterase, 3+ WBCs and absent bacteria. CT abdomen and pelvis reveals peripancreatic haziness consistent with pancreatitis. There is thickening of the bladder wall suggestive of possible cystitis. ASSESSMENT AND PLAN: Ms. Carlton is a 37-year-old female who has a history of alcoholic pancreatitis in the past, who presents to the emergency room with complaints of severe epigastric pain radiating to the back and chest. 1. Acute alcoholic pancreatitis. The patient does admit to drinking several times over the last 1 week. The patient's pancreatitis is most likely secondary to alcohol use. The patient states that she does not drink on a daily basis. However, she is very tremulous at this point and I do question if she may be going to some alcohol withdrawal. The patient will be placed on the [facility] protocol and monitored for withdrawal symptoms. In terms of the pancreatitis, the patient will be NPO with aggressive IV fluid resuscitation. She will have normal saline at 200 mL per hour x2 liters followed by normal saline at 100 mL per hour. She will have Dilaudid available for pain and Zofran for nausea. We will also start Protonix 40 mg IV daily. At this point, given severity of her pain and degree of lipase elevation, the patient will be NPO. However, by later this afternoon, if her pain is somewhat improved, she could be started on a clear liquid diet. 2. Chronic back pain. The patient will continue on her gabapentin and baclofen. 3. Anxiety. Continue p.r.n. hydroxyzine and Seroquel at bedtime. 4. DVT prophylaxis. According to the Adult Thrombosis Prophylaxis Risk Factor Assessment Guide, the patient has a total risk factor score of 0, making her low risk. Ambulation will be utilized as DVT prophylaxis. 5. Code status is full. TIME SPENT: Sixty-five minutes was spent admitting this patient. Greater than half was spent [id number] with the patient reviewing her history and performing a physical exam as well as reviewing past records. [id number]/[facility] #: [id number] LILI
[2018-01-15] MEDS: LORazepam INJ* 2 MG/ML 1 ML VIAL IV PUSH PRN (05:23)
[2018-01-15] MEDS: Pantoprazole IV* 40 MG IV SCH (06:15)
--- NOTE | 2018-01-15 07:56 | RAD ---
INDICATION: Upper abdominal pain. Radiation to the back. Question cholecystitis. COMPARISON: June 24, 2017 CT. TECHNIQUE: Multidetector CT images were obtained from the lung bases to the ischial tuberosities with 76 mL Omnipaque 300 IV and oral contrast. Multiplanar reformation. REPORT: Unremarkable visualized inferior thorax. Decreased density of the liver consistent with fatty infiltration. No focal liver lesions. Mildly distended gallbladder without additional CT abnormality. Negative for biliary dilatation. Moderate diffuse pancreatic and peripancreatic edema/inflammatory change. Small volume of nonloculated anterior pararenal space. Pancreatic free fluid posterior to the pancreatic tail. No focal pancreatic lesion or conspicuous duct dilatation. Small splenule at the hilum of the normal spleen. Negative for CT abnormality of the upper GI, small bowel, appendix, or colon. Small volume of free fluid at the dependent pelvis. Negative for free air or significant hernias. Normal adrenal glands. Unremarkable kidneys with symmetric nephrograms and pyelograms. Unremarkable nondilated ureters and partially distended urinary bladder. Unremarkable uterus and adnexal regions. Negative for lymphadenopathy. Mild atherosclerotic plaque of normal diameter abdominal aorta. Physiologic distention of the IVC. Negative for suspicious osseous lesions. IMPRESSION: #. Acute pancreatitis with moderate diffuse pancreatic and peripancreatic inflammatory change and small volume of nonloculated peripancreatic retroperitoneal fluid. #. Mildly distended gallbladder without additional CT abnormality of the gallbladder. Consider RIGHT upper quadrant ultrasound for further assessment.
--- NOTE | 2018-01-15 08:25 | PN ---
Subjective Date of Service: 01/15/18 Interval History: Patient seen and examined at bedside. Denies fever, chills, shortness of breath , chest discomfort, N/V/D. Pt states that she continues to have epigastric ABD. Pt is very drowsy and restless in the bed. Pt is drifting off to sleep while I am talking with her. Family History: Unchanged from Admission Social History: Unchanged from Admission Past Medical History: Unchanged from Admission Objective Active Medications: Baclofen (Lioresal Tab*) 10 mg PO TID PRN Reason: muscle spasms Gabapentin (Neurontin Cap(*)) 900 mg PO TID [facility] Hydromorphone HCl (Dilaudid Inj*) 2 mg IV SLOW PU Q4H PRN Reason: SEVERE PAIN Hydroxyzine HCl (Atarax Tab*) 25 mg PO QID PRN Reason: ANXIETY Sodium Chloride (Ns 0.9% 1000 Ml*) 2,000 mls @ 200 mls/hr IV PER RATE [facility] Stop: 01/16/18 13:29 Sodium Chloride (Ns 0.9% 1000 Ml*) 1,000 mls @ 100 mls/hr IV PER RATE [facility] Lorazepam (Ativan Inj*) 0 mg IV PUSH Q2H PRN; Protocol Reason: alcohol withdrawal Ondansetron HCl (Zofran Inj*) 4 mg IV Q6H PRN Reason: NAUSEA Pantoprazole Sodium (Protonix Iv*) 40 mg IV Q24H [facility] Quetiapine Fumarate (Seroquel Tab*) 25 mg PO BEDTIME [facility] Vital Signs - 8 hr 01/15/18 01/15/18 01/15/18 01:06 01:11 01:16 Temperature Pulse Rate 110 106 108 Respiratory 12 25 19 Rate Blood Pressure 161/123 156/125 (mmHg) O2 Sat by Pulse 100 100 100 Oximetry 01/15/18 01/15/18 01/15/18 01:35 01:36 01:43 Temperature Pulse Rate 107 Respiratory 20 20 22 Rate Blood Pressure 150/112 (mmHg) O2 Sat by Pulse 98 Oximetry 01/15/18 01/15/18 01/15/18 01:46 02:00 02:20 Temperature Pulse Rate 108 110 Respiratory 19 17 18 Rate Blood Pressure 157/113 154/109 (mmHg) O2 Sat by Pulse 98 98 Oximetry 01/15/18 01/15/18 01/15/18 02:46 03:00 03:17 Temperature Pulse Rate 109 107 115 Respiratory 14 16 23 Rate Blood Pressure 158/110 152/102 (mmHg) O2 Sat by Pulse 97 99 99 Oximetry 01/15/18 01/15/18 01/15/18 03:46 04:00 04:19 Temperature Pulse Rate 108 110 128 Respiratory 15 19 17 Rate Blood Pressure 154/115 155/117 (mmHg) O2 Sat by Pulse 99 98 98 Oximetry 01/15/18 01/15/18 01/15/18 04:32 04:50 04:54 Temperature 97.8 F Pulse Rate 105 Respiratory 20 22 Rate Blood Pressure 154/99 140/80 (mmHg) O2 Sat by Pulse 98 Oximetry 01/15/18 01/15/18 01/15/18 05:10 05:23 05:27 Temperature 97.8 F Pulse Rate 105 Respiratory 22 22 16 Rate Blood Pressure 140/80 (mmHg) O2 Sat by Pulse 98 Oximetry 01/15/18 07:56 Temperature 99.1 F Pulse Rate Respiratory Rate Blood Pressure (mmHg) O2 Sat by Pulse Oximetry Oxygen Devices in Use Now: None Appearance: NAD, sitting up in bed Ears/Nose/Mouth/Throat: Mucous Membranes Moist Respiratory: Symmetrical Chest Expansion and Respiratory Effort, Clear to Auscultation Cardiovascular: NL Sounds; No Murmurs; No JVD, RRR Abdominal: - - Bowel sounds present, ABD soft, large and tender in the upper quadrants Extremities: No Edema Neurological: Alert and Oriented x 3 - , but drowsy, NL Muscle Strength and Tone Lines/Tubes/Other Access: Clean, Dry and Intact Peripheral IV - site benign Nutrition: Taking PO's Result Diagrams: 01/14/18 23:39 01/14/18 23:39 Additional Lab and Data: . Assess/Plan/Problems-Billing Assessment: Ms. Carlton is a 37 yo female with PMH significant for chronic back pain, asthma and alcohol abuse who presented to the emergency room with complaints fo severe epigastric pain and was found to have acute alcoholic pancreatitis. - Patient Problems (1) Acute pancreatitis Code(s): K85.90 - ACUTE PANCREATITIS WITHOUT NECROSIS OR INFECTION, UNSP SNOMED Code(s): 596911813 Comment: - Recurrent alcoholic pancreatitis - Lipase ~ 3100 on admsiion - No signs of sepsis - Continue NPO and advance to clear liquid diet once pain improves, IVFs and analgesics - Social work consult for ETOH abuse (2) Alcohol abuse Code(s): F10.10 - ALCOHOL ABUSE, UNCOMPLICATED SNOMED Code(s): 97775162 Comment: - Pt with tremors - WAM score 12 on admission - Continue WAM protocol - Social work consult pending (3) Chronic back pain Code(s): M54.9 - DORSALGIA, UNSPECIFIED; G89.29 - OTHER CHRONIC PAIN SNOMED Code(s): 263582396 Comment: - Continue gabapentin and baclofen (4) Anxiety Code(s): F41.9 - ANXIETY DISORDER, UNSPECIFIED SNOMED Code(s): 04278020 Comment: - Continue hydroxyzine PRN and Seroquel (5) DVT prophylaxis Code(s): CNG3295 - SNOMED Code(s): 605693581 Comment: - Encourage ambulation (6) Full code status Code(s): Z78.9 - OTHER SPECIFIED HEALTH STATUS SNOMED Code(s): 441753353 Status and Disposition: Inpatient. Discharge to home when medically stable.
[2018-01-15] MEDS ORDERED: Omeprazole CAP* 20 MG PO SCH (09:00)
[2018-01-15] MEDS ORDERED: Gabapentin CAP(*) 300 MG PO SCH ×3 (09:00→09:18)
[2018-01-15] MEDS: HYDROmorphone INJ* 0.5 MG/0.5 ML SYRINGE IV SLOW PU PRN ×4 (10:40→23:31)
[2018-01-15] MEDS: Nicotine PATCH 14 MG/24 HR* PATCH TRANSDERM SCH (13:07)
[2018-01-15 15:50] LABS: Hematocrit 38 % (35-47); Hemoglobin 12.7 g/dl (12.0-16.0); Mean Corpuscular HGB Conc 33 g/dl (31-36); Mean Corpuscular Hemoglobin 31 pg (27-31); Mean Corpuscular Volume 93 fL (80-97); Mean Platelet Volume 8.3 um3 (7.4-10.4); Platelet Count 121 10^3/ul (150-450); Red Blood Count 4.11 10^6/ul (4.00-5.40); Red Cell Distribution Width 20 % (10.5-15); White Blood Count 9.3 10^3/ul (3.5-10.8)
[2018-01-15] MEDS: NS 0.9% 1000 ML* 1,000 ML IV SCH (15:57)
[2018-01-15 16:10] LABS: EGFR Non-African American 97.9 (>60)
[2018-01-15] MEDS ORDERED: Pneumococcal *Vac Polyvalent 0.5 ML VIAL IM ONE (17:00)
[2018-01-15] MEDS: Gabapentin CAP(*) 300 MG PO SCH (20:53)
[2018-01-15] MEDS: hydrOXYzine HCL TAB* 25 MG PO PRN (20:53)
[2018-01-15] MEDS: QUEtiapine TAB* 25 MG PO SCH (20:53)
[2018-01-15] MEDS: Nicotine Patch Removal NOTE FOLLOW UP SCH (20:56)
[2018-01-16] MEDS ORDERED: Ibuprofen TAB* 600 MG PO PRN (01:08)
[2018-01-16] MEDS: NS 0.9% 1000 ML* 1,000 ML IV SCH ×2 (02:29→15:36)
[2018-01-16] MEDS: HYDROmorphone INJ* 0.5 MG/0.5 ML SYRINGE IV SLOW PU PRN ×9 (03:57→23:42)
[2018-01-16] MEDS: Pantoprazole IV* 40 MG IV SCH (05:12)
[2018-01-16] MEDS: Baclofen TAB* 10 MG PO PRN (05:21)
[2018-01-16 06:20] LABS: ABS Basophils 0.1 10^3/ul (0-0.2); ABS Eosinophils 0.2 10^3/ul (0-0.6); ABS Lymphocytes 1.1 10^3/ul (1.0-4.8); ABS Monocytes 0.4 10^3/ul (0-0.8); ABS Neutrophils 5.4 10^3/ul (1.5-7.7); ABS Nucleated RBC 0 10^3/ul; Eosinophil % 2.3 % (0-6); Hematocrit 36 % (35-47); Hemoglobin 11.9 g/dl (12.0-16.0); Lymphocyte % 15.1 % (25-47); Mean Corpuscular HGB Conc 34 g/dl (31-36); Mean Corpuscular Hemoglobin 31 pg (27-31); Mean Corpuscular Volume 93 fL (80-97); Mean Platelet Volume 8.6 um3 (7.4-10.4); Nucleated Red Blood Cells % 0.1; Platelet Count 101 10^3/ul (150-450); Red Blood Count 3.84 10^6/ul (4.00-5.40); Red Cell Distribution Width 19 % (10.5-15); White Blood Count 7.1 10^3/ul (3.5-10.8)
[2018-01-16 06:39] LABS: EGFR Non-African American 113.1 (>60)
[2018-01-16] MEDS: Gabapentin CAP(*) 300 MG PO SCH ×3 (08:05→20:59)
[2018-01-16] MEDS: Nicotine PATCH 14 MG/24 HR* PATCH TRANSDERM SCH (08:06)
--- NOTE | 2018-01-16 08:31 | PN ---
Subjective Date of Service: 01/16/18 Interval History: Patient seen and examined at bedside. Denies fever, chills, shortness of breath , chest discomfort, N/V/D. Pt states that she is passing flatus but has not had a BM. Pt states that she continues to have significant ABD pain. She doesn't feel her pain increased once she started clear liquids yesterday. She reports being drowsy yesterday because she was receiving baclofen during the day and she only takes it when she is going to sleep at home. She also feels like the lower dose of dilaudid isn't working as long. She also reports that in the past Ativan has caused her to be aggressive towards staff. Family History: Unchanged from Admission Social History: Unchanged from Admission Past Medical History: Unchanged from Admission Objective Active Medications: Baclofen (Lioresal Tab*) 10 mg PO TID PRN Reason: muscle spasms Device (Nicotine Mouth Piece*) 1 each INH .USE WITH NICOTROL PRN Reason: CRAVING Gabapentin (Neurontin Cap(*)) 600 mg PO TID [facility] Hydromorphone HCl (Dilaudid Inj*) 1 mg IV SLOW PU Q4H PRN Reason: SEVERE PAIN Hydroxyzine HCl (Atarax Tab*) 25 mg PO QID PRN Reason: ANXIETY Sodium Chloride (Ns 0.9% 1000 Ml*) 2,000 mls @ 200 mls/hr IV PER RATE [facility] Stop: 01/16/18 13:29 Sodium Chloride (Ns 0.9% 1000 Ml*) 1,000 mls @ 100 mls/hr IV PER RATE [facility] Ibuprofen (Motrin Tab*) 600 mg PO Q8H PRN Reason: PAIN Lorazepam (Ativan Inj*) 0 mg IV PUSH Q2H PRN; Protocol Reason: alcohol withdrawal Nicotine (Nicotine Inhaler*) 10 mg INH Q2H PRN Reason: CRAVING Nicotine (Nicotine Patch 14 Mg/24 Hr*) 1 patch TRANSDERM DAILY [facility] Ondansetron HCl (Zofran Inj*) 4 mg IV Q6H PRN Reason: NAUSEA Pantoprazole Sodium (Protonix Iv*) 40 mg IV Q24H [facility] Pharmacy Profile Note (Nicotine Patch Removal Note*) 1 note FOLLOW UP 2100 [facility] Quetiapine Fumarate (Seroquel Tab*) 25 mg PO BEDTIME [facility] Vital Signs - 8 hr 0701/16/18 01/16/18 00:50 01:02 03:07 Temperature 97.8 F 97.8 F Pulse Rate 111 97 Respiratory 18 18 18 Rate Blood Pressure 152/98 147/95 (mmHg) O2 Sat by Pulse 97 98 Oximetry 01/16/18 01/16/18 01/16/18 03:57 05:01 05:09 Temperature 97.8 F Pulse Rate 103 Respiratory 20 20 20 Rate Blood Pressure 151/102 (mmHg) O2 Sat by Pulse 95 Oximetry 01/16/18 01/16/18 01/16/18 07:13 07:38 08:05 Temperature 97.4 F Pulse Rate 98 98 Respiratory 14 14 16 Rate Blood Pressure 140/96 140/96 (mmHg) O2 Sat by Pulse 100 100 Oximetry 01/16/18 08:06 Temperature Pulse Rate Respiratory 16 Rate Blood Pressure (mmHg) O2 Sat by Pulse Oximetry Oxygen Devices in Use Now: None Appearance: NAD, sitting up in bed Ears/Nose/Mouth/Throat: Mucous Membranes Moist Respiratory: Symmetrical Chest Expansion and Respiratory Effort, Clear to Auscultation Cardiovascular: NL Sounds; No Murmurs; No JVD, RRR Abdominal: - - Difuse tenderness, ABD soft, slightly distended, bowel sounds present Extremities: No Edema Skin: No Rash or Ulcers Neurological: Alert and Oriented x 3, NL Muscle Strength and Tone Lines/Tubes/Other Access: Clean, Dry and Intact Peripheral IV - site benign Nutrition: Taking PO's Result Diagrams: 01/16/18 06:02 01/16/18 06:02 Additional Lab and Data: . Assess/Plan/Problems-Billing Assessment: Ms. Carlton is a 37 yo female with PMH significant for chronic back pain, asthma and alcohol abuse who presented to the emergency room with complaints fo severe epigastric pain and was found to have acute alcoholic pancreatitis. - Patient Problems (1) Acute pancreatitis Code(s): K85.90 - ACUTE PANCREATITIS WITHOUT NECROSIS OR INFECTION, UNSP SNOMED Code(s): 330286959 Comment: - Recurrent alcoholic pancreatitis - Lipase ~ 3100 on admsiion, trending down - No signs of sepsis - Continue clear liquid diet and advance once pain improves, IVFs and analgesics - Social work consult for ETOH abuse (2) Alcohol abuse Code(s): F10.10 - ALCOHOL ABUSE, UNCOMPLICATED SNOMED Code(s): 52854632 Comment: - Pt with tremors - WAM score 3-4 - Continue WAM protocol - Social work consult pending (3) Chronic back pain Code(s): M54.9 - DORSALGIA, UNSPECIFIED; G89.29 - OTHER CHRONIC PAIN SNOMED Code(s): 325885518 Comment: - Continue gabapentin and baclofen (4) Anxiety Code(s): F41.9 - ANXIETY DISORDER, UNSPECIFIED SNOMED Code(s): 59386189 Comment: - Continue hydroxyzine PRN and Seroquel (5) DVT prophylaxis Code(s): [id number] - SNOMED Code(s): 052104442 Comment: - Encourage ambulation (6) Full code status Code(s): Z78.9 - OTHER SPECIFIED HEALTH STATUS SNOMED Code(s): 961867054 Status and Disposition: Inpatient. Discharge to home when medically stable.
[2018-01-16] MEDS: QUEtiapine TAB* 25 MG PO SCH (20:58)
[2018-01-16] MEDS: hydrOXYzine HCL TAB* 25 MG PO PRN (20:58)
[2018-01-16] MEDS: Nicotine Patch Removal NOTE FOLLOW UP SCH (21:00)
[2018-01-16] MEDS: Mouth Piece, Nicotine* 1 EACH CARTRIDGE INH PRN (21:03)
[2018-01-16] MEDS: Nicotine Inhaler* 10 MG AMP INH PRN (21:03)
[2018-01-16] MEDS: Ondansetron INJ* 2 MG/ML VIAL IV PRN (21:08)
[2018-01-16] MEDS: LORazepam INJ* 2 MG/ML 1 ML VIAL IV PUSH PRN (23:41)
[2018-01-17] MEDS: NS 0.9% 1000 ML* 1,000 ML IV SCH ×2 (01:36→15:25)
[2018-01-17] MEDS: HYDROmorphone INJ* 0.5 MG/0.5 ML SYRINGE IV SLOW PU PRN ×8 (02:54→20:42)
[2018-01-17] MEDS: Pantoprazole IV* 40 MG IV SCH (05:14)
[2018-01-17] MEDS: Nicotine PATCH 14 MG/24 HR* PATCH TRANSDERM SCH (09:48)
[2018-01-17] MEDS: Gabapentin CAP(*) 300 MG PO SCH ×3 (09:48→20:42)
--- NOTE | 2018-01-17 13:14 | PN ---
Subjective Date of Service: 01/17/18 Interval History: Patient seen and examined at bedside. Denies fever, chills, shortness of breath , chest discomfort, N/V/D. Pt states that she is hungry, but continues to have 7 /10 abdominal pain. Family History: Unchanged from Admission Social History: Unchanged from Admission Past Medical History: Unchanged from Admission Objective Active Medications: Baclofen (Lioresal Tab*) 10 mg PO TID PRN Reason: muscle spasms Device (Nicotine Mouth Piece*) 1 each INH .USE WITH NICOTROL PRN Reason: CRAVING Gabapentin (Neurontin Cap(*)) 600 mg PO TID [facility] Hydromorphone HCl (Dilaudid Inj*) 1 mg IV SLOW PU Q2H PRN Reason: SEVERE PAIN Hydroxyzine HCl (Atarax Tab*) 25 mg PO QID PRN Reason: ANXIETY Sodium Chloride (Ns 0.9% 1000 Ml*) 1,000 mls @ 100 mls/hr IV PER RATE [facility] Ibuprofen (Motrin Tab*) 600 mg PO Q8H PRN Reason: PAIN Lorazepam (Ativan Inj*) 0 mg IV PUSH Q2H PRN; Protocol Reason: alcohol withdrawal Nicotine (Nicotine Inhaler*) 10 mg INH Q2H PRN Reason: CRAVING Nicotine (Nicotine Patch 14 Mg/24 Hr*) 1 patch TRANSDERM DAILY [facility] Ondansetron HCl (Zofran Inj*) 4 mg IV Q6H PRN Reason: NAUSEA Pantoprazole Sodium (Protonix Iv*) 40 mg IV Q24H [facility] Pharmacy Profile Note (Nicotine Patch Removal Note*) 1 note FOLLOW UP 2100 [facility] Quetiapine Fumarate (Seroquel Tab*) 25 mg PO BEDTIME [facility] Vital Signs - 8 hr 01/17/18 01/17/18 01/17/18 05:17 06:27 07:25 Temperature 98.0 F Pulse Rate 110 Respiratory 18 18 14 Rate Blood Pressure 130/96 (mmHg) O2 Sat by Pulse 97 Oximetry 01/17/18 01/17/18 01/17/18 07:46 09:14 09:48 Temperature Pulse Rate Respiratory 16 16 16 Rate Blood Pressure (mmHg) O2 Sat by Pulse Oximetry 01/17/18 01/17/18 01/17/18 11:15 12:20 12:41 Temperature 98.1 F Pulse Rate 108 Respiratory 15 16 16 Rate Blood Pressure 140/93 (mmHg) O2 Sat by Pulse 97 Oximetry Oxygen Devices in Use Now: None Appearance: NAD, sitting up in bed Ears/Nose/Mouth/Throat: Mucous Membranes Moist Respiratory: Symmetrical Chest Expansion and Respiratory Effort, Clear to Auscultation Cardiovascular: NL Sounds; No Murmurs; No JVD, RRR Abdominal: - - Bowel sounds present, ABD soft, tender in the upper abdomen bilateral Extremities: No Edema Skin: No Rash or Ulcers Neurological: Alert and Oriented x 3, NL Muscle Strength and Tone Lines/Tubes/Other Access: Clean, Dry and Intact Peripheral IV - site benign Nutrition: Taking PO's Result Diagrams: 01/16/18 06:02 01/16/18 06:02 Additional Lab and Data: . Microbiology and Other Data: Microbiology 01/14/18 23:37 Urine Culture - Final Urine Assess/Plan/Problems-Billing Assessment: Ms. Carlton is a 37 yo female with PMH significant for chronic back pain, asthma and alcohol abuse who presented to the emergency room with complaints fo severe epigastric pain and was found to have acute alcoholic pancreatitis. - Patient Problems (1) Acute pancreatitis Code(s): K85.90 - ACUTE PANCREATITIS WITHOUT NECROSIS OR INFECTION, UNSP SNOMED Code(s): 656592771 Comment: - Recurrent alcoholic pancreatitis - Lipase ~ 3100 on admision, trending down - No signs of sepsis - Continue clear liquid diet and advance once pain improves, IVFs and analgesics - Social work consult for ETOH abuse (2) Hypoglycemia Code(s): E16.2 - HYPOGLYCEMIA, UNSPECIFIED SNOMED Code(s): 034291238 Comment: - Suspect secondary to being NPO - Check glucose BID - Start IVFs, D5W while taking in poor PO (3) Alcohol abuse Code(s): F10.10 - ALCOHOL ABUSE, UNCOMPLICATED SNOMED Code(s): 08466631 Comment: - Pt with tremors - WAM score 3-4 - Continue WAM protocol - Social work consult pending (4) Chronic back pain Code(s): M54.9 - DORSALGIA, UNSPECIFIED; G89.29 - OTHER CHRONIC PAIN SNOMED Code(s): 890369402 Comment: - Continue gabapentin and baclofen (5) Anxiety Code(s): F41.9 - ANXIETY DISORDER, UNSPECIFIED SNOMED Code(s): 96206871 Comment: - Continue hydroxyzine PRN and Seroquel (6) DVT prophylaxis Code(s): [id number] - SNOMED Code(s): 499837207 Comment: - Encourage ambulation (7) Full code status Code(s): Z78.9 - OTHER SPECIFIED HEALTH STATUS SNOMED Code(s): 329824539 Status and Disposition: Inpatient. Discharge to home when medically stable.
[2018-01-17] MEDS: Ondansetron INJ* 2 MG/ML VIAL IV PRN (15:32)
[2018-01-17] MEDS: D5W NS 0.9% 20Meq KCL 1000 ML* 1,000 ML IV SCH (16:33)
[2018-01-17] MEDS: hydrOXYzine HCL TAB* 25 MG PO PRN (20:42)
[2018-01-17] MEDS: QUEtiapine TAB* 25 MG PO SCH (20:42)
[2018-01-17] MEDS: Mouth Piece, Nicotine* 1 EACH CARTRIDGE INH PRN (20:47)
[2018-01-17] MEDS: Nicotine Inhaler* 10 MG AMP INH PRN (20:47)
[2018-01-17] MEDS: Baclofen TAB* 10 MG PO PRN (20:47)
[2018-01-17] MEDS: Nicotine Patch Removal NOTE FOLLOW UP SCH (20:48)
[2018-01-18] MEDS: Nicotine Inhaler* 10 MG AMP INH PRN ×7 (00:38→22:04)
[2018-01-18] MEDS: hydrOXYzine HCL TAB* 25 MG PO PRN ×2 (00:38→21:57)
[2018-01-18] MEDS: HYDROmorphone INJ* 0.5 MG/0.5 ML SYRINGE IV SLOW PU PRN ×4 (00:38→07:48)
[2018-01-18] MEDS: D5W NS 0.9% 20Meq KCL 1000 ML* 1,000 ML IV SCH (02:55)
[2018-01-18] MEDS: Pantoprazole IV* 40 MG IV SCH (05:06)
[2018-01-18] MEDS: Gabapentin CAP(*) 300 MG PO SCH ×3 (07:49→21:24)
[2018-01-18] MEDS: LORazepam INJ* 2 MG/ML 1 ML VIAL IV PUSH PRN ×4 (08:24→23:25)
[2018-01-18] MEDS: Nicotine PATCH 14 MG/24 HR* PATCH TRANSDERM SCH (10:23)
[2018-01-18] MEDS ORDERED: oxyCODONE/Acetamin 5/325 MG* TAB PO PRN (10:56)
[2018-01-18] MEDS ORDERED: traMADol TAB* 50 MG PO PRN (11:36)
[2018-01-18 11:41] LABS: ABS Basophils 0 10^3/ul (0-0.2); ABS Eosinophils 0.2 10^3/ul (0-0.6); ABS Lymphocytes 0.7 10^3/ul (1.0-4.8); ABS Monocytes 1.2 10^3/ul (0-0.8); ABS Neutrophils 7.1 10^3/ul (1.5-7.7); ABS Nucleated RBC 0 10^3/ul; Eosinophil % 1.7 % (0-6); Hematocrit 34 % (35-47); Hemoglobin 11.7 g/dl (12.0-16.0); Lymphocyte % 8.1 % (25-47); Mean Corpuscular HGB Conc 34 g/dl (31-36); Mean Corpuscular Hemoglobin 32 pg (27-31); Mean Corpuscular Volume 92 fL (80-97); Mean Platelet Volume 8.1 um3 (7.4-10.4); Nucleated Red Blood Cells % 0.1; Platelet Count 144 10^3/ul (150-450); Red Blood Count 3.71 10^6/ul (4.00-5.40); Red Cell Distribution Width 19 % (10.5-15); White Blood Count 9.2 10^3/ul (3.5-10.8)
[2018-01-18] MEDS ORDERED: D5W NS 0.9% 20Meq KCL 1000 ML* 1,000 ML IV SCH (12:28)
[2018-01-18] MEDS ORDERED: HYDROmorphone INJ* 0.5 MG/0.5 ML SYRINGE IV SLOW PU ONE (12:45)
--- NOTE | 2018-01-18 13:17 | PN ---
Subjective Date of Service: 01/18/18 Interval History: C/O diffuse abdominal pain, no emesis this AM, took some breakfast. Family History: Unchanged from Admission Social History: Unchanged from Admission Past Medical History: Unchanged from Admission Objective Active Medications: Baclofen (Lioresal Tab*) 10 mg PO TID PRN PRN Reason: muscle spasms Last Admin: 01/17/18 20:47 Dose: 10 mg Device (Nicotine Mouth Piece*) 1 each INH .USE WITH NICOTROL PRN PRN Reason: CRAVING Last Admin: 01/17/18 20:47 Dose: 1 each Gabapentin (Neurontin Cap(*)) 600 mg PO TID [facility] Last Admin: 01/18/18 12:59 Dose: 600 mg Hydroxyzine HCl (Atarax Tab*) 25 mg PO QID PRN PRN Reason: ANXIETY Last Admin: 01/18/18 00:38 Dose: 25 mg Potassium Chloride/Dextrose (D5w Ns 0.9% 20meq Kcl 1000 Ml*) 1,000 mls @ 50 mls /hr IV PER RATE [facility] Ibuprofen (Motrin Tab*) 600 mg PO Q8H PRN PRN Reason: PAIN Lorazepam (Ativan Inj*) 0 mg IV PUSH Q2H PRN; Protocol PRN Reason: alcohol withdrawal Last Admin: 01/18/18 11:28 Dose: 0.5 mg Nicotine (Nicotine Inhaler*) 10 mg INH Q2H PRN PRN Reason: CRAVING Last Admin: 01/18/18 10:23 Dose: 10 mg Nicotine (Nicotine Patch 21 Mg/24 Hr*) 1 patch TRANSDERM DAILY@0800 [facility] Ondansetron HCl (Zofran Inj*) 4 mg IV Q6H PRN PRN Reason: NAUSEA Last Admin: 01/17/18 15:32 Dose: 4 mg Oxycodone HCl (Roxycodone Tab*) 5 mg PO Q4H PRN PRN Reason: PAIN Pantoprazole Sodium (Protonix Iv*) 40 mg IV Q24H [facility] Last Admin: 01/18/18 05:06 Dose: 40 mg Pharmacy Profile Note (Nicotine Patch Removal Note*) 1 note FOLLOW UP 2100 [facility] Last Admin: 01/17/18 20:48 Dose: 1 note Quetiapine Fumarate (Seroquel Tab*) 25 mg PO BEDTIME [facility] Last Admin: 01/17/18 20:42 Dose: 25 mg Tramadol HCl (Ultram*) 50 mg PO Q6H PRN PRN Reason: PAIN Vital Signs - 8 hr 01/18/18 01/18/18 01/18/18 06:55 07:21 07:48 Temperature Pulse Rate 120 Respiratory 18 18 20 Rate Blood Pressure 133/93 (mmHg) O2 Sat by Pulse 93 Oximetry 01/18/18 01/18/18 01/18/18 07:49 08:00 08:24 Temperature Pulse Rate Respiratory 20 20 20 Rate Blood Pressure (mmHg) O2 Sat by Pulse Oximetry 01/18/18 01/18/18 01/18/18 08:50 11:10 11:28 Temperature 99.3 F Pulse Rate 110 Respiratory 16 14 16 Rate Blood Pressure 128/96 (mmHg) O2 Sat by Pulse 97 Oximetry 01/18/18 12:59 Temperature Pulse Rate Respiratory 20 Rate Blood Pressure (mmHg) O2 Sat by Pulse Oximetry Oxygen Devices in Use Now: None Appearance: Alert, partly up in bed. Seems restless and/or uncomfortable. Respiratory: Symmetrical Chest Expansion and Respiratory Effort, Clear to Auscultation, Clear to Percussion Cardiovascular: NL Sounds; No Murmurs; No JVD, RRR, No Edema, - Abdominal: NL Sounds; No Tenderness; No Distention, No Hepatosplenomegaly, - - mildly diffusely tender Extremities: No Edema, No Clubbing, Cyanosis, - Skin: No Rash or Ulcers, No Nodules or Sclerosis, - Result Diagrams: 01/18/18 11:21 01/18/18 11:21 Additional Lab and Data: . Microbiology and Other Data: Microbiology 01/14/18 23:37 Urine Culture - Final Urine Assess/Plan/Problems-Billing Assessment: Ms. Carlton is a 37 yo female with PMH significant for chronic back pain, asthma and alcohol abuse who presented to the emergency room with complaints fo severe epigastric pain and was found to have acute alcoholic pancreatitis. - Patient Problems (1) Acute pancreatitis Current Visit: Yes Status: Acute Code(s): K85.90 - ACUTE PANCREATITIS WITHOUT NECROSIS OR INFECTION, UNSP SNOMED Code(s): 829663734 Comment: - Recurrent alcoholic pancreatitis - Lipase ~ 3100 on admision, down to 332 on 01/16/18. Start low fat diet 01/18. - Social work consult for ETOH abuse (2) Alcohol abuse Current Visit: Yes Status: Chronic Code(s): F10.10 - ALCOHOL ABUSE, UNCOMPLICATED SNOMED Code(s): 94826107 Comment: - Pt with tremors, hallucinations - Continue WAM protocol - Social work consult pending (3) Tobacco abuse Current Visit: No Status: Acute Code(s): Z72.0 - TOBACCO USE SNOMED Code(s ): 878544536 Comment: Pt advised to quit smoking and avoid second hand smoke. - Continue nicotine patch. Status and Disposition: Inpatient. Discharge to home when medically stable.
[2018-01-18] MEDS: oxyCODONE TAB* 5 MG TAB PO PRN ×5 (14:30→21:58)
[2018-01-18] MEDS: Nicotine PATCH 21 MG/24 HR* PATCH TRANSDERM SCH (14:35)
--- NOTE | 2018-01-18 15:42 | PN ---
"Progress Note - Progress Note Date of Service: 01/18/18 Note: This report was requested by: Samuel Finley | Reference #: [id number] Others' Prescriptions Patient Name: Abby Carlton Date: 1980 Address: [address] [place] [address] Sex: Female Rx Written Rx Dispensed Drug Quantity Days Supply Prescriber Name 10/01/2017 10/01/2017 oxycodone hcl 5 mg tablet 30 5 Rahel Saba 09/19/2017 09/19/2017 oxycodone hcl 5 mg tablet 20 5 Sarbjit Vgeas MD 09/10/2017 09/10/2017 oxycodone hcl 5 mg tablet 16 4 Malina Blount NP 09/04/2017 09/05/2017 oxycodone hcl 5 mg tablet 12 3 Lavern French PA-C 09/04/2017 09/04/2017 oxycodone hcl 5 mg tablet 2 1 Lavern French PA-C 06/24/2017 06/24/2017 oxycodone hcl 10 mg tablet 12 3 Rosalinda Caruso 04/16/2017 04/20/2017 oxycodone hcl 5 mg tablet 20 5 Stevo Shea (MD PINKY ) Patient Name: Abby Carlton Date: 1980 Address: [address] [place] [id number] Sex: Female Rx Written Rx Dispensed Drug Quantity Days Supply Prescriber Name 04/13/2017 04/13/2017 oxycodone hcl 5 mg tablet 20 7 Malina Blount NP 03/26/2017 03/26/2017 oxycodone hcl 5 mg tablet 20 7 Mily Blounte VIMAL 03/08/2017 03/08/2017 oxycodone hcl 10 mg tablet 24 4 Chrissy Larry 02/27/2017 02/27/2017 oxycodone hcl 5 mg tablet 15 5 Malina Blount NP 01/27/2017 01/27/2017 oxycodone hcl 5 mg tablet 15 5 Malina Blount NP"
[2018-01-18] MEDS: Ondansetron INJ* 2 MG/ML VIAL IV PRN (18:25)
[2018-01-18] MEDS: Mouth Piece, Nicotine* 1 EACH CARTRIDGE INH PRN (18:52)
[2018-01-18] MEDS: QUEtiapine TAB* 25 MG PO SCH (21:23)
[2018-01-18] MEDS: Nicotine Patch Removal NOTE FOLLOW UP SCH (21:26)
[2018-01-19] MEDS: oxyCODONE TAB* 5 MG TAB PO PRN ×5 (00:02→23:50)
[2018-01-19] MEDS: Diazepam INJ (NF) 5 MG/ML 10 ML VIAL (50 MG TOTAL) IV SCH ×2 (01:10→02:46)
[2018-01-19] MEDS: Pantoprazole IV* 40 MG IV SCH (05:02)
[2018-01-19] MEDS: Ondansetron INJ* 2 MG/ML VIAL IV PRN (08:20)
--- NOTE | 2018-01-19 09:09 | PN ---
Subjective Date of Service: 01/19/18 Interval History: C/O diffuse upper abdominal pain. She states she has had nl BM's here, no emesis. Family History: Unchanged from Admission Social History: Unchanged from Admission Past Medical History: Unchanged from Admission Objective Active Medications: Baclofen (Lioresal Tab*) 10 mg PO TID PRN PRN Reason: muscle spasms Last Admin: 01/17/18 20:47 Dose: 10 mg Chlordiazepoxide (Librium Cap*) 25 mg PO TID [facility] Device (Nicotine Mouth Piece*) 1 each INH .USE WITH NICOTROL PRN PRN Reason: CRAVING Last Admin: 01/18/18 18:52 Dose: 1 each Folic Acid (Folvite Tab*) 1 mg PO DAILY [facility] Gabapentin (Neurontin Cap(*)) 600 mg PO TID [facility] Last Admin: 01/18/18 21:24 Dose: 600 mg Hydroxyzine HCl (Atarax Tab*) 25 mg PO QID PRN PRN Reason: ANXIETY Last Admin: 01/18/18 21:57 Dose: 25 mg Potassium Chloride/Dextrose (D5w Ns 0.9% 20meq Kcl 1000 Ml*) 1,000 mls @ 80 mls /hr IV PER RATE [facility] Ibuprofen (Motrin Tab*) 600 mg PO Q8H PRN PRN Reason: PAIN Multivitamins/Minerals (Theragran/Minerals Tab*) 1 tab PO DAILY [facility] Nicotine (Nicotine Inhaler*) 10 mg INH Q2H PRN PRN Reason: CRAVING Last Admin: 01/18/18 22:04 Dose: 10 mg Nicotine (Nicotine Patch 21 Mg/24 Hr*) 1 patch TRANSDERM DAILY@0800 [facility] Last Admin: 01/18/18 14:35 Dose: Not Given Ondansetron HCl (Zofran Inj*) 4 mg IV Q6H PRN PRN Reason: NAUSEA Last Admin: 01/19/18 08:20 Dose: 4 mg Oxycodone HCl (Roxycodone Tab*) 5 mg PO Q4H PRN PRN Reason: PAIN Last Admin: 01/18/18 21:58 Dose: 5 mg Oxycodone HCl (Roxycodone Tab*) 10 mg PO Q4H PRN PRN Reason: SEVERE PAIN Last Admin: 01/19/18 00:02 Dose: 10 mg Pantoprazole Sodium (Protonix Iv*) 40 mg IV Q24H [facility] Last Admin: 01/19/18 05:02 Dose: 40 mg Pharmacy Profile Note (Nicotine Patch Removal Note*) 1 note FOLLOW UP 2100 [facility] Last Admin: 01/18/18 21:26 Dose: 1 note Quetiapine Fumarate (Seroquel Tab*) 25 mg PO BEDTIME [facility] Last Admin: 01/18/18 21:23 Dose: 25 mg Thiamine HCl (Vitamin B-1 Tab*) 100 mg PO DAILY [facility] Vital Signs - 8 hr 01/19/18 01/19/18 01/19/18 01:10 02:20 02:32 Temperature 99.9 F Pulse Rate 131 Respiratory 24 26 22 Rate Blood Pressure 147/102 (mmHg) O2 Sat by Pulse 95 Oximetry 01/19/18 01/19/18 01/19/18 02:46 02:47 04:27 Temperature 98.2 F Pulse Rate 127 Respiratory 20 20 18 Rate Blood Pressure 130/93 (mmHg) O2 Sat by Pulse 88 Oximetry 01/19/18 01/19/18 01/19/18 04:49 06:20 08:35 Temperature 99.2 F 99.6 F Pulse Rate 125 131 Respiratory 18 18 16 Rate Blood Pressure 113/65 114/73 (mmHg) O2 Sat by Pulse 93 90 Oximetry 01/19/18 08:38 Temperature Pulse Rate Respiratory 28 Rate Blood Pressure (mmHg) O2 Sat by Pulse Oximetry Oxygen Devices in Use Now: None Appearance: Lying on her R side in bed, mostly keeps eyes closed, restless. Eyes: No Scleral Icterus Respiratory: Symmetrical Chest Expansion and Respiratory Effort, Clear to Auscultation, Clear to Percussion Cardiovascular: NL Sounds; No Murmurs; No JVD, RRR, No Edema, - Abdominal: - - abd obese, soft, nl BS, some tenderness to deep palpation, no rebound, no mass Extremities: No Edema, No Clubbing, Cyanosis, - Skin: No Rash or Ulcers, No Nodules or Sclerosis, - Neurological: NL Sensation, - - Knows present month, present location. Mod sustention tremor. GRAY. Result Diagrams: 01/18/18 11:21 01/18/18 11:21 Additional Lab and Data: . Microbiology and Other Data: Microbiology 01/14/18 23:37 Urine Culture - Final Urine Assess/Plan/Problems-Billing Assessment: Ms. Carlton is a 37 yo female with PMH significant for chronic back pain, asthma and alcohol abuse who presented to the emergency room with complaints fo severe epigastric pain and was found to have acute alcoholic pancreatitis. - Patient Problems (1) Acute pancreatitis Current Visit: Yes Status: Acute Code(s): K85.90 - ACUTE PANCREATITIS WITHOUT NECROSIS OR INFECTION, UNSP SNOMED Code(s): 602010989 Comment: - Recurrent alcoholic pancreatitis - Lipase 3111 on admision, down to 150 on 01/18/18. CHange to NPO 01/19, get US abdomen to r/o ascites. - Social work consult for ETOH abuse (2) Alcohol abuse Current Visit: Yes Status: Chronic Code(s): F10.10 - ALCOHOL ABUSE, UNCOMPLICATED SNOMED Code(s): 02747382 Comment: - Pt with tremors, hallucinations - Stop WAM protocol, difficult to assess if this is alcohol withdrawal. Scheduled chlordiazepoxide 25 mg tid start 7/24 AM. Stop quetiapine, reduce gabapentin to 30 mg tid. (3) Tobacco abuse Current Visit: No Status: Acute Code(s): Z72.0 - TOBACCO USE SNOMED Code(s ): 490425275 Comment: Pt advised to quit smoking and avoid second hand smoke. - Continue nicotine patch. Status and Disposition: Inpatient. Discharge to home when medically stable.
[2018-01-19] MEDS: Nicotine PATCH 21 MG/24 HR* PATCH TRANSDERM SCH (09:31)
[2018-01-19] MEDS: chlordiazePOXIDE CAP* 25 MG PO SCH ×3 (09:38→21:40)
[2018-01-19] MEDS: Multivitamins/Minerals TAB PO SCH (09:40)
[2018-01-19] MEDS: Thiamine TAB* 100 MG TAB PO SCH (09:40)
[2018-01-19] MEDS: Folic Acid TAB* 1 MG PO SCH (09:40)
[2018-01-19] MEDS: Gabapentin CAP(*) 300 MG PO SCH ×3 (09:41→21:40)
--- NOTE | 2018-01-19 10:52 | RAD ---
HISTORY: Abdominal pain COMPARISONS: CT dated January 15, 2018 TECHNIQUE: Multiple transverse and longitudinal ultrasound images were obtained of the right upper quadrant of the abdomen using grayscale and color Doppler imaging. FINDINGS: LIVER: The liver is normal in shape, size, contour, and echogenicity. There are no focal parenchymal masses. There is normal hepatopedal flow of the portal vein on Doppler imaging. BILIARY TREE: There is no intrahepatic or extrahepatic biliary dilatation. The common duct measures 0.7 cm. GALLBLADDER: The gallbladder is well-visualized. There is no cholelithiasis, gallbladder wall thickening, pericholecystic fluid, or sonographic Estrada sign. PANCREAS: The head of the pancreas is unremarkable. The tail of the pancreas is not well visualized secondary to overlying bowel gas. The peripancreatic inflammatory change noted on CT is not well visualized on the ultrasound examination. RIGHT KIDNEY: The right kidney is normal in shape, size, contour, and echogenicity. There is no hydronephrosis or nephrolithiasis. The right kidney measures 10.6 x 4.2 x 5 cm. AORTA AND IVC: The aorta and IVC are unremarkable. FLUID: There are no pleural effusions. There is no free fluid within the hepatorenal recess. OTHER FINDINGS: None. IMPRESSION: 1. THERE IS ECTASIA OF THE COMMON DUCT UP TO 0.7 CM IN SIZE. 2. THE PERIPANCREATIC INFLAMMATORY CHANGE NOTED ON CT IS NOT WELL EVALUATED ON THE CURRENT EXAMINATION.
[2018-01-19] MEDS: D5W NS 0.9% 20Meq KCL 1000 ML* 1,000 ML IV SCH (19:25)
--- NOTE | 2018-01-19 20:55 | CONS ---
CC: Dr. Finley * CONSULTATION REPORT: DATE OF CONSULT: 01/19/18 SUPERVISING PSYCHIATRIST: Dr. Osorio Garcia. ATTENDING PHYSICIAN: Dr. Finley. CONSULTING PROVIDER: Taylor Shah NP. REASON FOR CONSULT: Psychiatry was asked to consult the patient for capacity and competency to make informed medical decisions. HISTORY OF PRESENT ILLNESS: Abby is a 37-year-old white female, who presented to the emergency department with complaints of severe epigastric pain and was diagnosed with acute alcoholic pancreatitis. Since admitted on 01/15/18 , she has been increasingly agitated and demanding to leave. She appears to be a poor historian in regards to alcohol use; however, she does state that historically, lorazepam causes agitation. In talking with her significant other , he identifies that this is a normal occurrence for her as well in that she presented the same 14 years ago when initially diagnosed with pancreatitis. The patient is lying in bed with one-to-one monitor. She is irritable, but cooperative with interview and answers questions fully. She states that she has been forced to have Ativan and the nursing staff have been aggressive to her. She states she is upset about being held captive and is referring to a personal alarm that has been instated by nursing staff. The patient reports that she simply had 1 or 2 drinks. This is later identified as erroneous. Her significant other identifies that she is a heavy alcohol user. There is also concern about opiate pain medication. He identifies that she has had a long- standing addiction with opiate pain meds related to back pain. The patient later tells me that she has caught nursing staff smoking outside of her door and that they ran into the shower and pretended to take a shower while smoking cigarettes. Her significant other endorses hallucinations as well. The patient is alert and oriented. She performs mini-mental status and scores appropriately at 29/30. She can identify her normal medication that is prescribed by her primary care provider. However, the concern is due to minimizing alcohol use and likely continued active withdrawal, the patient is not safe to be discharged. MENTAL STATUS EXAM: Finds a 37-year-old white female, who is disheveled and poorly groomed. She is wearing her own clothing and has not completed ADLs. Her hair is up in a messy bun. The patient is irritable with constricted affect. Memory is 3/3. She is alert and oriented x3. Her eye contact is poor. Her speech is mumbled with low volume and appropriate rhythm. Thought content is negative for SI, HI, or . The patient endorses auditory and visual hallucinations, likely related to alcohol withdrawal. Thought process is circumstantial in regards to discharge. Her insight and judgement are poor at this time. Fund of knowledge is adequate. DIAGNOSIS: Alcohol use disorder, severe. ASSESSMENT: Abby is a 37-year-old white female with unknown psychiatric history, who presented to the emergency department with complaints of severe epigastric pain. She was found to have acute alcoholic pancreatitis. She is minimizing alcohol intake as confirmed by her significant other. The patient is actively withdrawing from alcohol and has capacity to make informed medical decisions at this time. RECOMMENDATIONS: Continue Librium taper as the patient identifies Ativan causes severe agitation and aggression. The patient is an active client of [facility] according to her significant other. Recommend reaching out to her treatment providers at [facility] to identify substance use treatment options. I have reviewed the above with Dr. Finley and with the patient's primary nurse, Temo. Thank you for allowing the psychiatry to consulted. We hope that the patient's mental status improves and that she is able to participate in treatment planning. TAYLOR SHAH NP [id number]/CPS #: [id number] [email or web address]
[2018-01-19] MEDS: Nicotine Patch Removal NOTE FOLLOW UP SCH (21:25)
[2018-01-20] MEDS: Nicotine Patch Removal NOTE FOLLOW UP SCH ×2 (02:02→22:04)
[2018-01-20] MEDS: oxyCODONE TAB* 5 MG TAB PO PRN ×5 (05:11→22:05)
[2018-01-20] MEDS: Pantoprazole IV* 40 MG IV SCH (05:11)
[2018-01-20 07:46] LABS: ABS Basophils 0 10^3/ul (0-0.2); ABS Eosinophils 0.2 10^3/ul (0-0.6); ABS Lymphocytes 0.7 10^3/ul (1.0-4.8); ABS Monocytes 0.7 10^3/ul (0-0.8); ABS Neutrophils 4.5 10^3/ul (1.5-7.7); ABS Nucleated RBC 0 10^3/ul; Eosinophil % 2.9 % (0-6); Hematocrit 34 % (35-47); Hemoglobin 11.3 g/dl (12.0-16.0); Lymphocyte % 11.9 % (25-47); Mean Corpuscular HGB Conc 34 g/dl (31-36); Mean Corpuscular Hemoglobin 31 pg (27-31); Mean Corpuscular Volume 94 fL (80-97); Nucleated Red Blood Cells % 0.1; Platelet Count 188 10^3/ul (150-450); Red Blood Count 3.59 10^6/ul (4.00-5.40); Red Cell Distribution Width 18 % (10.5-15); White Blood Count 6.2 10^3/ul (3.5-10.8)
[2018-01-20 07:50] LABS: EGFR Non-African American 127.7 (>60)
[2018-01-20 07:56] LABS: INR 1.02 (0.77-1.02)
[2018-01-20] MEDS: D5W NS 0.9% 20Meq KCL 1000 ML* 1,000 ML IV SCH (08:52)
[2018-01-20] MEDS: chlordiazePOXIDE CAP* 25 MG PO SCH ×4 (08:53→22:04)
[2018-01-20] MEDS: Thiamine TAB* 100 MG TAB PO SCH (08:53)
[2018-01-20] MEDS: Gabapentin CAP(*) 300 MG PO SCH ×3 (08:53→22:02)
[2018-01-20] MEDS: Multivitamins/Minerals TAB PO SCH (08:54)
[2018-01-20] MEDS: Folic Acid TAB* 1 MG PO SCH (08:54)
[2018-01-20] MEDS: Nicotine PATCH 21 MG/24 HR* PATCH TRANSDERM SCH (08:55)
--- NOTE | 2018-01-20 12:18 | PN ---
Subjective Date of Service: 01/20/18 Interval History: C/O pain L arm at prior IV site, also abd pain not relieved by po oxycodone 10 mg. Family History: Unchanged from Admission Social History: Unchanged from Admission Past Medical History: Unchanged from Admission Objective Active Medications: Chlordiazepoxide (Librium Cap*) 25 mg PO TID [facility] Last Admin: 01/20/18 08:53 Dose: 25 mg Device (Nicotine Mouth Piece*) 1 each INH .USE WITH NICOTROL PRN PRN Reason: CRAVING Last Admin: 01/18/18 18:52 Dose: 1 each Folic Acid (Folvite Tab*) 1 mg PO DAILY [facility] Last Admin: 01/20/18 08:54 Dose: 1 mg Gabapentin (Neurontin Cap(*)) 300 mg PO TID [facility] Last Admin: 01/20/18 08:53 Dose: 300 mg Nicotine (Nicotine Inhaler*) 10 mg INH Q2H PRN PRN Reason: CRAVING Last Admin: 01/18/18 22:04 Dose: 10 mg Nicotine (Nicotine Patch 21 Mg/24 Hr*) 1 patch TRANSDERM DAILY@0800 [facility] Last Admin: 01/20/18 08:55 Dose: 1 patch Omeprazole (Prilosec Cap*) 20 mg PO DAILY@0600 [facility] Ondansetron HCl (Zofran Inj*) 4 mg IV Q6H PRN PRN Reason: NAUSEA Last Admin: 01/19/18 08:20 Dose: 4 mg Oxycodone HCl (Roxycodone Tab*) 10 mg PO Q3H PRN PRN Reason: SEVERE PAIN Pharmacy Profile Note (Nicotine Patch Removal Note*) 1 note FOLLOW UP 2099 [facility] Last Admin: 01/19/18 21:25 Dose: Not Given Thiamine HCl (Vitamin B-1 Tab*) 100 mg PO DAILY [facility] Last Admin: 01/20/18 08:53 Dose: 100 mg Vital Signs - 8 hr 01/20/18 01/20/18 01/20/18 05:11 07:58 08:00 Temperature 97.9 F Pulse Rate 87 Respiratory 20 16 19 Rate Blood Pressure 134/79 (mmHg) O2 Sat by Pulse 100 Oximetry 01/20/18 01/20/18 01/20/18 08:53 08:54 08:56 Temperature Pulse Rate Respiratory 16 16 19 Rate Blood Pressure (mmHg) O2 Sat by Pulse Oximetry 01/20/18 01/20/18 01/20/18 11:32 11:37 11:38 Temperature 98.2 F Pulse Rate 85 Respiratory 19 16 Rate Blood Pressure 159/106 165/95 (mmHg) O2 Sat by Pulse 97 Oximetry Oxygen Devices in Use Now: Nasal Cannula Appearance: Alert, sitting up in bed, looks uncomfortable, holding her abd. Eyes: No Scleral Icterus Abdominal: No Hepatosplenomegaly, - - Abd soft, nl BS, difuusely tender Extremities: No Clubbing, Cyanosis, - - Mild discoloration L antecubital fossa, extremely tender entire arm. Skin: No Nodules or Sclerosis Neurological: Alert and Oriented x 3, NL Sensation Result Diagrams: 01/20/18 06:29 01/20/18 08:26 Additional Lab and Data: . Microbiology and Other Data: Microbiology 01/14/18 23:37 Urine Culture - Final Urine Assess/Plan/Problems-Billing Assessment: Ms. Carlton is a 37 yo female with PMH significant for chronic back pain, asthma and alcohol abuse who presented to the emergency room with complaints fo severe epigastric pain and was found to have acute alcoholic pancreatitis. - Patient Problems (1) Acute pancreatitis Current Visit: Yes Status: Acute Code(s): K85.90 - ACUTE PANCREATITIS WITHOUT NECROSIS OR INFECTION, UNSP SNOMED Code(s): 822475726 Comment: - Recurrent alcoholic pancreatitis - Lipase 3111 on admision, down to 65 on 01/20/18. US abdomen did not show ascites. GI consult requested 01/20. (2) Alcohol abuse Current Visit: Yes Status: Chronic Code(s): F10.10 - ALCOHOL ABUSE, UNCOMPLICATED SNOMED Code(s): 94554023 Comment: As of 01/20 her alcohol withdrawal sx's seem better Taper scheduled chlordiazepoxide 25 mg tid o bid on 01/21. Stopped quetiapine, reduced gabapentin to 300 mg tid. GI consult 01/20. (3) Tobacco abuse Current Visit: No Status: Acute Code(s): Z72.0 - TOBACCO USE SNOMED Code(s ): 262823877 Comment: Pt advised to quit smoking and avoid second hand smoke. - Continue nicotine patch. Status and Disposition: Inpatient. Discharge to home when medically stable.
--- NOTE | 2018-01-20 12:49 | PN ---
Subjective Date of Service: 01/20/18 Interval History: See earlier note today. Family History: Unchanged from Admission Social History: Unchanged from Admission Past Medical History: Unchanged from Admission Objective Active Medications: Chlordiazepoxide (Librium Cap*) 25 mg PO TID [facility] Last Admin: 01/20/18 08:53 Dose: 25 mg Device (Nicotine Mouth Piece*) 1 each INH .USE WITH NICOTROL PRN PRN Reason: CRAVING Last Admin: 01/18/18 18:52 Dose: 1 each Folic Acid (Folvite Tab*) 1 mg PO DAILY [facility] Last Admin: 01/20/18 08:54 Dose: 1 mg Gabapentin (Neurontin Cap(*)) 300 mg PO TID [facility] Last Admin: 01/20/18 08:53 Dose: 300 mg Nicotine (Nicotine Inhaler*) 10 mg INH Q2H PRN PRN Reason: CRAVING Last Admin: 01/18/18 22:04 Dose: 10 mg Nicotine (Nicotine Patch 21 Mg/24 Hr*) 1 patch TRANSDERM DAILY@0800 [facility] Last Admin: 01/20/18 08:55 Dose: 1 patch Omeprazole (Prilosec Cap*) 20 mg PO DAILY@0600 [facility] Ondansetron HCl (Zofran Inj*) 4 mg IV Q6H PRN PRN Reason: NAUSEA Last Admin: 01/19/18 08:20 Dose: 4 mg Oxycodone HCl (Roxycodone Tab*) 10 mg PO Q3H PRN PRN Reason: SEVERE PAIN Pharmacy Profile Note (Nicotine Patch Removal Note*) 1 note FOLLOW UP 2100 [facility] Last Admin: 01/19/18 21:25 Dose: Not Given Thiamine HCl (Vitamin B-1 Tab*) 100 mg PO DAILY [facility] Last Admin: 01/20/18 08:53 Dose: 100 mg Vital Signs - 8 hr 01/20/18 01/20/18 01/20/18 05:11 07:58 08:00 Temperature 97.9 F Pulse Rate 87 Respiratory 20 16 19 Rate Blood Pressure 134/79 (mmHg) O2 Sat by Pulse 100 Oximetry 01/20/18 01/20/18 01/20/18 08:53 08:54 08:56 Temperature Pulse Rate Respiratory 16 16 19 Rate Blood Pressure (mmHg) O2 Sat by Pulse Oximetry 01/20/18 01/20/18 01/20/18 11:32 11:37 11:38 Temperature 98.2 F Pulse Rate 85 Respiratory 19 16 Rate Blood Pressure 159/106 165/95 (mmHg) O2 Sat by Pulse 97 Oximetry Oxygen Devices in Use Now: Nasal Cannula Result Diagrams: 01/20/18 06:29 01/20/18 08:26 Additional Lab and Data: . Microbiology and Other Data: Microbiology 01/14/18 23:37 Urine Culture - Final Urine Assess/Plan/Problems-Billing Assessment: Ms. Carlton is a 37 yo female with PMH significant for chronic back pain, asthma and alcohol abuse who presented to the emergency room with complaints fo severe epigastric pain and was found to have acute alcoholic pancreatitis. - Patient Problems (1) Acute pancreatitis Current Visit: Yes Status: Acute Code(s): K85.90 - ACUTE PANCREATITIS WITHOUT NECROSIS OR INFECTION, UNSP SNOMED Code(s): 835907142 Comment: - Recurrent alcoholic pancreatitis - Lipase 3111 on admision, down to 65 on 01/20/18. US abdomen did not show ascites. GI consult requested 01/20. (2) Alcohol abuse Current Visit: Yes Status: Chronic Code(s): F10.10 - ALCOHOL ABUSE, UNCOMPLICATED SNOMED Code(s): 63596627 Comment: As of 01/20 her alcohol withdrawal sx's seem better Taper scheduled chlordiazepoxide 25 mg tid o bid on 01/21. Stopped quetiapine, reduced gabapentin to 300 mg tid. GI consult 01/20. (3) Tobacco abuse Current Visit: No Status: Acute Code(s): Z72.0 - TOBACCO USE SNOMED Code(s ): 418076200 Comment: Pt advised to quit smoking and avoid second hand smoke. - Continue nicotine patch. (4) Pain Current Visit: Yes Status: Acute Code(s): R52 - PAIN, UNSPECIFIED SNOMED Code(s): 24459492 Comment: Dr. Hartman to see 01/20. Status and Disposition: Inpatient. Discharge to home when medically stable.
[2018-01-20] MEDS ORDERED: fentaNYL* 50 MCG/ML 2 ML VIAL (100 MCG VIAL) ONE (17:10)
[2018-01-20] MEDS ORDERED: Midazolam* 1 MG/ML 10 ML VIAL (10 MG) ONE (17:11)
[2018-01-20] MEDS: Sucralfate SUSP 1 GM/10 ml 10 ML UDC PO SCH (22:08)
[2018-01-20] MEDS ORDERED: Melatonin 3 MG TAB PO PRN (22:53)
--- NOTE | 2018-01-20 23:05 | CONSULT ---
Consult Consult: INPATIENT PAIN CONSULTATION Abby Carlton is known to me. She was seen in the Pain [facility] in 2005 for severe back pain. Her pain began when she was knocked over by a dog in 2003. She had seen Dr. Becerril and was on opioid treatment. She had later seen Dr. Freire and was on methadone. She was on opioid therapy but she felt she needed higher doses and she had minimal findings to explain her pain. She was tapered off opioid. She saw me next in Oct, 2014. She still had back pain. At that time , she had been placed on oxycodone, 30 mg five times a day through her primary care. She was sent to me. I thought her dose was too high, I ordered more imaging which was never done. She went through court ordered rehab in 2014, and her children were taken from her. She saw me again in February 2015, at that time she was on Suboxone 8/2 daily, and she felt the medication was not strong enough. I have not seen her since. She has a long history of alcohol and opioid abuse. She was recently hospitalized with abdominal pain. She was found to be in alcoholic pancreatitis. She is now complaining the oxycodone she is getting ( 10 mg Q3hr PRN) is not enough. I am asked to see her. PAST MEDICAL HISTORY: Asthma, right foot surgery for metatarsal fractures ALLERGIES: Cipro, Tylenol, Zithromax, Codeine Current Medications Chlordiazepoxide (Librium Cap*) 25 mg PO TID [facility] Last Admin: 01/20/18 22:04 Dose: Not Given Device (Nicotine Mouth Piece*) 1 each INH .USE WITH NICOTROL PRN PRN Reason: CRAVING Last Admin: 01/18/18 18:52 Dose: 1 each Folic Acid (Folvite Tab*) 1 mg PO DAILY [facility] Last Admin: 01/20/18 08:54 Dose: 1 mg Gabapentin (Neurontin Cap(*)) 300 mg PO TID [facility] Last Admin: 01/20/18 22:02 Dose: 300 mg Melatonin (Melatonin) 3 mg PO BEDTIME PRN; Protocol PRN Reason: Sleep Nicotine (Nicotine Inhaler*) 10 mg INH Q2H PRN PRN Reason: CRAVING Last Admin: 01/18/18 22:04 Dose: 10 mg Nicotine (Nicotine Patch 21 Mg/24 Hr*) 1 patch TRANSDERM DAILY@0800 [facility] Last Admin: 01/20/18 08:55 Dose: 1 patch Omeprazole (Prilosec Cap*) 20 mg PO DAILY@0600 [facility] Ondansetron HCl (Zofran Inj*) 4 mg IV Q6H PRN PRN Reason: NAUSEA Last Admin: 01/19/18 08:20 Dose: 4 mg Oxycodone HCl (Roxycodone Tab*) 10 mg PO Q3H PRN PRN Reason: SEVERE PAIN Last Admin: 01/20/18 18:58 Dose: 10 mg Pharmacy Profile Note (Nicotine Patch Removal Note*) 1 note FOLLOW UP 2100 [facility] Last Admin: 01/20/18 22:04 Dose: 1 note Sucralfate (Sucralfate Susp) 1 gm PO QID [facility] Last Admin: 01/20/18 22:08 Dose: 1 gm Thiamine HCl (Vitamin B-1 Tab*) 100 mg PO DAILY [facility] Last Admin: 01/20/18 08:53 Dose: 100 mg SOCIAL HISTORY: History of alcoholism, heavy smoking. She has 5 children. Her boyfriend, Ayan, also has a history of opioid abuse. Vital Signs Temp Pulse Resp BP Pulse Ox 98.3 F 95 16 104/63 97 01/20/18 19:36 01/20/18 19:36 01/20/18 22:02 01/20/18 19:36 01/20/18 19:36 EXAM: LUNGS: Scattered wheeze HEART: regular rhythm ABDOMEN: Soft, diffuse tenderness EXTREMITIES: Scar over right foot on dorsum NEUROLOGIC: no focal weakness ASSESSMENT: 1. Abdominal Pain 2. History of alcohol and opioid abuse 3. Back Pain PLAN: She is not a great candidate for opioids and is risky. I would stop her oxycodone and try Methadone, 15 mg TID, scheduled with no PRNs. She could be referred to [facility] on discharge but she has a long history of recidivism and relapse.
[2018-01-20] MEDS: Nicotine Inhaler* 10 MG AMP INH PRN (23:30)
[2018-01-20] MEDS ORDERED: Methadone TAB* 10 MG PO ONE (23:33)
[2018-01-21] MEDS ORDERED: Benzocaine/Menthol LOZ* 1 LOZENGE MT PRN (01:06)
--- NOTE | 2018-01-21 01:54 | CONS ---
CC: Malina Blount NP; Dr. Finley; Sangeeta Schaeffer, DO * GASTROENTEROLOGY CONSULTATION: DATE OF CONSULT: 01/20/18 PRIMARY CARE PROVIDER: Malina Blount NP HOSPITAL PROVIDER: Dr. Melton. REASON FOR CONSULTATION: Epigastric pain. HISTORY OF PRESENT ILLNESS: Ms. Carlton is a 37-year-old female with a history of alcohol abuse, asthma, and chronic back pain, who presented to the emergency room with complaints of severe epigastric pain. She was noted to have acute pancreatitis for which she has been in the hospital for treatment. Despite resolution of her pancreatitis, she is still complaining of severe epigastric pain for which Gastroenterology was consulted for further evaluation. She denies nausea, vomiting, hematemesis. She also denies melena and hematochezia. Her weight is fairly stable. She denies dysphagia, odynophagia. Does admit to some heart burn intermittently and also admits to ibuprofen use frequently as needed for chronic aches and pains. She is also on chronic pain medications. She is on omeprazole 20 mg daily for her GERD. She states she had an upper endoscopy in the distant past, but does not recall the results of the test. She has never had a colonoscopy. She denies any family history of gastrointestinal malignancies. PAST MEDICAL HISTORY: 1. Chronic back pain. 2. Asthma. 3. History of alcohol abuse. PAST SURGICAL HISTORY: 1. Right foot surgery. MEDICATIONS AT HOME: 1. Gabapentin. 2. Hydroxyzine. 3. Ibuprofen. 4. Omeprazole. 5. Seroquel. 6. Baclofen. ALLERGIES: CODEINE, TYLENOL, CIPRO, AZITHROMYCIN, and KEFLEX. FAMILY HISTORY: Denies history of gastrointestinal malignancies. Father did have a history of prostate cancer. Mother had a questionable brain tumor. SOCIAL HISTORY: The patient smokes about a pack of cigarettes a day to 3 packs per day. She admits to occasional alcohol use but according to records it is daily use and denies any illicit drug use. REVIEW OF SYSTEMS: Review of systems on a 14-point scale have been reviewed. All pertinent positives and negatives have been noted above in the HPI. PHYSICAL EXAM: Vital Signs: Temperature 98.3, pulse 95, respirations 20, oxygenation 97% on room air, and blood pressure 104/63. Generally, the patient is alert and oriented x3, answering questions appropriately, no acute distress. HEENT: Normocephalic and atraumatic. Extraocular muscles intact. Anicteric sclerae bilaterally. Cardiovascular Exam: Regular, rate, and rhythm. Pulmonary Exam: Clear to auscultation bilaterally. Abdominal Exam: Soft. Mild diffuse abdominal tenderness, nondistended. No rebound, guarding, or rigidity. Positive bowel sounds in all 4 quadrants. Extremities: No clubbing , cyanosis, or edema. Neurological Exam: No gross deficits are appreciated at this time. DIAGNOSTIC STUDIES/LAB DATA: WBC is 6.2, hemoglobin 11.3, hematocrit 34, platelets 188, INR 1.02. Sodium 138, potassium 3.7, chloride 108, CO2 25, anion gap 5, creatinine 0.54, total bilirubin 0.40, AST 21, ALT 14, alkaline phosphatase 97, total protein 6.1, albumin 3.2, lipase 65. ASSESSMENT AND PLAN: Abby is a 37-year-old female with a history of alcohol abuse who presented to [facility] ER with complaints of epigastric pain and was found to have acute pancreatitis. Throughout her hospital course, her pain has not improved despite receiving significant pain medication thus Gastroenterology was consulted for further evaluation. She has a history of gastroesophageal reflux disease and had an upper endoscopy several years ago and is currently on Prilosec therapy 20 mg daily. She does admit to using of ibuprofen regularly, which could be causing peptic ulcer disease given her current symptoms. It is reasonable to go ahead and perform an upper endoscopy today to further evaluate for the patient's epigastric pain and rule out peptic ulcer disease given her significant use of NSAID and alcohol abuse. We will keep the patient n.p.o. She is currently on PPI therapy daily. Further recommendations will be provided as the patient's clinical course progresses. Thank you for Dr. Finley for allowing us to participate in the care of your patient. If you should have any further questions or concerns, please do not hesitate to contact us. [id number]/[facility] #: [id number] LILI
[2018-01-21] MEDS ORDERED: Omeprazole CAP* 20 MG PO SCH (06:00)
[2018-01-21] MEDS: Nicotine PATCH 21 MG/24 HR* PATCH TRANSDERM SCH (08:31)
[2018-01-21] MEDS: Gabapentin CAP(*) 300 MG PO SCH ×2 (08:34→13:50)
[2018-01-21] MEDS: Thiamine TAB* 100 MG TAB PO SCH (08:35)
[2018-01-21] MEDS: Folic Acid TAB* 1 MG PO SCH (08:36)
[2018-01-21] MEDS: chlordiazePOXIDE CAP* 25 MG PO SCH ×2 (08:38→13:52)
[2018-01-21] MEDS: Methadone TAB* 10 MG PO SCH ×2 (08:39→13:50)
[2018-01-21] MEDS: Sucralfate SUSP 1 GM/10 ml 10 ML UDC PO SCH (08:41)
[2018-01-21 09:43] LABS: Urine Appearance Turbid; Urine Blood 1+ (Negative); Urine Color Amber; Urine Ketones Trace (Negative); Urine Protein 2+(100 mg/dL) (Negative); Urine Red Blood Cell 3+(>10/hpf) (Absent); Urine Specific Gravity 1.013 (1.010-1.030); Urine Urobilinogen Negative (Negative); Urine White Blood Cell 3+(>20/hpf) (Absent)
[2018-01-21] MEDS: Nicotine Inhaler* 10 MG AMP INH PRN (11:19)
--- NOTE | 2018-01-21 11:46 | PRO ---
CC: Malina Blount NP; Dr. Finley; Sangeeta Schaeffer DO GASTROENTEROLOGY OPERATIVE REPORT: DATE OF PROCEDURE: 01/20/18 OPERATIVE PROCEDURE: Esophagogastroduodenoscopy to second portion of duodenum. PRESS PIPE INSPECTOR: Sangeeta Schaeffer DO ANESTHESIA: 1. Midazolam 19 mg IV. 2. Fentanyl 200 mcg IV. HISTORY OF PRESENT ILLNESS: Abby is a 37-year-old female with a history of alcohol-induced acute pancreatitis on this admission, chronic opioid use, NSAID use, who presented to the emergency room with acute epigastric pain, was noted to have acute pancreatitis. Despite resolution of the pancreatitis, she was noted to have continued epigastric pain. Gastroenterology was consulted for further evaluation. PREOPERATIVE DIAGNOSES: 1. Epigastric pain. 2. History of alcohol abuse. 3. Chronic opioid use. 4. NSAID use. POSTOPERATIVE DIAGNOSES: 1. Duodenitis to the second portion of the duodenum with few erosions. 2. Moderate antral gastritis with few erosions and CLOtest to rule out Helicobacter pylori. 3. Mild distal esophagitis. 4. Normal mid and proximal esophagus. RECOMMENDATIONS: 1. We will follow up with CLOtest. 2. Avoid alcohol use and NSAID therapy. 3. PPI 40 mg daily. 5. Carafate therapy twice daily due to severe abdominal pain. 6. Recommend monitored anesthesia care for any further endoscopic procedures due to anesthesia intolerance. 7. Findings were discussed with Dr. Finley from the primary team. DESCRIPTION OF PROCEDURE: Esophagogastroduodenoscopy was explained in detail to the patient. The risks, benefits, complications, alternatives, and possibilities of missed lesions were explained and understood. Complications included, but were not limited to, reaction to anesthesia, aspiration, infection and increased risk of bleeding, and perforation. All questions were answered. The patient demonstrated understanding of the conversation and informed consent was obtained. Next, the patient was brought to the endoscopy suite, placed in the left lateral recumbent position where blood pressure, cardiac, and oxygen monitors were applied. The patient was found to be a fit candidate for moderate anesthesia. After adequate IV sedation was achieved, a bite block was placed. Next, a standard Olympus pediatric endoscope was inserted per os under direct visualization to the first, second portion of the duodenum revealing erythema consistent with duodenitis and some few scattered erosions. Further withdrawal of the endoscope into the gastric lumen revealed moderate erythema consistent with gastritis and a few scattered erosions. A CLOtest was performed to rule out H. pylori. On retroflexion, the patient had a normal gastric cardia sling. Further withdrawal of the endoscope into the distal esophagus revealed mild erythematous changes consistent with esophagitis. The rest of the tubular esophagus was normal appearing. Air was then removed from the patient. Patient tolerated the procedure well. Multiple cold forceps biopsies were not obtained during this examination, as the patient was semi-alert during the procedure and mildly combative; however, overall the patient did tolerate the procedure as she does not remember having the procedure in recovery. After a period observation, the patient was transferred back to the medical floor for further treatment in stable condition. Thank you, Dr. Finley, for allowing us to participate in the care of your patient. If you should have any further questions or concerns, please do not hesitate to contact us. [id number]/[facility] #: [id number] MTDD
[2018-01-21 14:05] VITALS: BP 125/90
[2018-01-21] MEDS ORDERED: Sucralfate SUSP 1 GM/10 ml 10 ML UDC PO SCH (21:00)
--- NOTE | 2018-01-22 02:36 | DS ---
CC: Dr. Melton; Larry Ricks MD; Dr. Fuentes; Dr. Sangeeta Schaeffer; Dr. Jean Paul Hartman; Malina Blount NP * DISCHARGE SUMMARY: DATE OF ADMISSION: DATE OF DISCHARGE: 01/21/18 DISCHARGE DIAGNOSES: As follows: 1. Acute alcoholic pancreatitis. 2. Epigastric pain secondary to duodenitis to the second portion of the duodenum with few erosions with moderate antral gastritis with few erosions and mild distal esophagitis. 3. Alcohol abuse. 4. Tobacco abuse. DISCHARGE MEDICATIONS: As follows: 1. Chloraseptic lozenge, 1 lozenge q.6 hours p.r.n. 2. Chlordiazepoxide 25 mg p.o. t.i.d. for 5 days. The patient has been asked to either contact her pain management clinic and/or PCP for refills. 3. Folic acid 1 mg tab p.o. daily. 4. Gabapentin 300 mg p.o. t.i.d. 5. Melatonin 3 mg p.o. q.h.s. 6. Methadone 10 mg p.o. t.i.d. 12 tabs prescribed. The patient was informed that any refills will be made by PCP and/or pain clinic. 7. Nicotine inhaler 10 mg inhalation q.2 hours p.r.n. 8. Nicotine patch 21 mg per 24 hour patch daily. 9. Omeprazole 40 mg p.o. daily. 10. Sucralfate 1 g p.o. b.i.d. 11. Thiamine 100 mg p.o. daily. HISTORY OF PRESENT ILLNESS/HOSPITAL COURSE: The patient is a 37-year-old lady with history of chronic back pain, asthma, and history of alcohol abuse, who presented with severe epigastric pain and was diagnosed with acute alcoholic pancreatitis; however, despite her lipase levels improving, her abdominal pain continued to be substantial and hence GI was consulted and an EGD was done showing duodenitis of the second portion of the duodenum with few erosions, moderate antral gastritis with few erosions. A APPLE test was done to rule out H. pylori, the result of which is currently pending. The patient was also found to have mild distal esophagitis and normal mid and proximal esophagus. Upon my visit this morning, the patient wanted to go home, although with some epigastric pain, which she mentions is significantly improved. She was advised to follow up and/or call her PCP within 3 days post discharge and to call [facility] if her PCP cannot see her any sooner and both of them agreed that she needs to be seen by a practitioner. She was advised to contact my office regarding any questions, concerns, or clarifications regarding her discharge plans and prescriptions and to call her PCP and/or pain clinic for any re-prescriptions of methadone for pain, to follow up with GI and to call Dr. Schaeffer's office to make an appointment to do so. She has also been advised to take her medications as prescribed, to follow up with GI physician regarding the CLOtest sent during her EGD. She was also reminded to try to stop smoking and to avoid alcohol and NSAIDs. The patient was also advised to advance her diet to GI soft and to begin advancing diet in 2 days with low residue diet and to continue low residue diet for about 1 day and if she continues to tolerate it, she may advance diet to low fat and once again, she was advised to avoid alcohol and NSAIDs. PHYSICAL EXAMINATION: Reveals the most recent vital signs of records with temperature of 98.6 degrees Fahrenheit, 94 beats per minute, 18 per minute respiratory rate, 125/90 blood pressure. General Appearance: The patient is awake, alert, and oriented x3, not in acute distress. HEENT: Normocephalic, atraumatic. PERRLA. Extraocular muscles intact. Negative for icterus. Moist oral mucosa. Negative throat erythema. Abdomen is soft, slightly tender in the epigastric area, otherwise nonacute abdomen. Normoactive bowel sounds x4. Extremities: No cyanosis, clubbing, or edema. Psychiatric: No active psychosis, depression, suicidal nor homicidal ideations. Skin is warm to touch. TIME SPENT: The total time spent evaluating the patient, reviewing pertinent data, and appropriate documentation is greater than 30 minutes. [id number]/[facility] #: [id number] [facility]
== END 2018-01-21 13:46 | disposition home or self-care (01) | DRG 282 ==
LOC: ED 20:43 → MED 01-15 03:20
PROVIDERS: ADMIT Hospitalist; ATTEND Student in an Organized Health Care Education/Training Program
PROC: 0DB68ZX Excision of Stomach, Via Natural or Artificial Opening Endoscopic, Diagnostic (ICD-10-PCS; principal; 2018-01-20)
DX: K85.20 Alcohol induced acute pancreatitis without necrosis or infection (principal); G89.29 Other chronic pain; M54.9 Dorsalgia, unspecified; J45.909 Unspecified asthma, uncomplicated; F17.210 Nicotine dependence, cigarettes, uncomplicated; F41.9 Anxiety disorder, unspecified; K21.9 Gastro-esophageal reflux disease without esophagitis; F10.10 Alcohol abuse, uncomplicated; E16.2 Hypoglycemia, unspecified; F11.90 Opioid use, unspecified, uncomplicated; K29.80 Duodenitis without bleeding; K26.9 Duodenal ulcer, unspecified as acute or chronic, without hemorrhage or perforation; K29.70 Gastritis, unspecified, without bleeding; K25.9 Gastric ulcer, unspecified as acute or chronic, without hemorrhage or perforation; K20.9 Esophagitis, unspecified; Z88.5 Allergy status to narcotic agent; Z88.1 Allergy status to other antibiotic agents; Z88.6 Allergy status to analgesic agent; Z80.42 Family history of malignant neoplasm of prostate; Z72.89 Other problems related to lifestyle; Z80.49 Family history of malignant neoplasm of other genital organs; Z80.8 Family history of malignant neoplasm of other organs or systems
CPT/HCPCS: 36415; 74177; 76705; 80048; 80053; 80061; 80320; 81003; 81015; 82140; 83690; 84702; 85025; 85027; 85610; 87077; 87086; 87186; 90732; 93005; 99156; 99157; 99284; A9270-GY; G0480; J1170; J2060; J2250; J2270; J2405; J3010; J3360; Q9967

== ENCOUNTER 2018-03-28 20:44 | Inpatient (IN) | payer OTHER ==
--- NOTE | 2018-03-28 20:58 | ED ---
Abdominal Pain/Female - HPI Summary HPI Summary: This patient is a 37 year old F presenting to [facility] with a chief complaint of severe epigastric abd pain since 0900. She denies N/V/D, SOB, CP, and abd SHx. She endorses occasional pain radiation to her mid-back. PMHx kidney stones , kidney infections, pancreatitis, GERD. Allergic to acetaminophen, codeine, Keflex. - History of Current Complaint Stated Complaint: ABD PAIN Time Seen by Provider: 03/28/18 20:54 Hx Obtained From: Patient Onset/Duration: Sudden Onset, Lasting Hours, Still Present Timing: Constant Severity Initially: Severe Severity Currently: Severe Location: Epigastric Radiates: Yes Radiates to: Back Character: Sharp Aggravating Factor(s): Nothing Alleviating Factor(s): Nothing Associated Signs and Symptoms: Positive: Back Pain. Negative: Fever, Chest Pain , Nausea, Vomiting, Diarrhea Allergies/Adverse Reactions: Allergies Allergy/AdvReac Type Severity Reaction Status Date / Time ciprofloxacin Allergy Difficulty Verified 03/28/18 21:09 Breathing codeine Allergy Hives Verified 03/28/18 21:09 acetaminophen AdvReac Difficulty Verified 03/28/18 21:09 Swallowing azithromycin AdvReac Vomiting Verified 03/28/18 21:09 cephalexin [From Keflex] AdvReac Palpitation Verified 03/28/18 21:09 s lorazepam AdvReac Intermediate Nausea Uncoded 03/28/18 21:09 Home Medications: Home Medications Baclofen 10 mg PO TID 03/29/18 [History Confirmed 03/29/18] Gabapentin CAP(*) [Neurontin 300 CAP(*)] 900 mg PO TID 03/29/18 [History Confirmed 03/29/18] hydrOXYzine HCL TAB* [Atarax 25 MG TAB*] 25 mg PO QID PRN 03/29/18 [History Confirmed 03/29/18] PMH/Surg Hx/FS Hx/Imm Hx Endocrine/Hematology History: Reports: Hx Anemia - Hx OF YEARS AGO, Denies: Hx Diabetes Cardiovascular History: Denies: Hx Hypercholesterolemia, Hx Hypertension Respiratory History: Reports: Hx Asthma - Hx OF HAS MEDS AVAILABLE WHEN IT "FLARES UP", Other Respiratory Problems/Disorders - pt reports sob-uncertain etiology BRONCHITIS GI History: Reports: Hx Gastroesophageal Reflux Disease - ON DAILY MEDS, Other GI Disorders - SPRING/SUMMER 2016 PANCREATITIS History: Denies: Hx Renal Disease Musculoskeletal History: Reports: Hx Back Problems Sensory History: Denies: Hx Contacts or Glasses, Hx Deafness, Hx Hearing Aid Opthamlomology History: Denies: Hx Contacts or Glasses EENT History: Denies: Hx Deafness Neurological History: Reports: Hx Headaches Psychiatric History: Reports: Hx Anxiety - ON DAILY MEDS, Hx Substance Abuse - alcohol Denies: Hx Eating Disorder, Hx of Violent Episodes Against Others Comment Only: Hx Depression - Hx OF NONE NOW - Surgical History Surgery Procedure, Year, and Place: 2000 urethral stenting with [facility]. 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 Negative: Vomiting, Diarrhea, Nausea Positive: no symptoms reported Positive: Myalgia - back pain All Other Systems Reviewed And Are Negative: Yes Physical Exam - Summary Physical Exam Summary: Appearance: Well appearing, moderate pain distress Skin: warm, dry, reflects adequate perfusion Head/face: normal Eyes: EOMI, OWEN ENT: normal Neck: supple, non-tender Respiratory: CTA, breath sounds present Cardiovascular: RRR, pulses symmetrical Abdomen: diffusely tender, soft Bowel: present Musculoskeletal: normal, strength/ROM intact Neuro: normal, sensory motor intact, A&Ox3 Triage Information Reviewed: Yes Vital Signs Reviewed: Yes Diagnostics - Laboratory Result Diagrams: 03/28/18 22:10 03/28/18 23:23 Lab Statement: Any lab studies that have been ordered have been reviewed, and results considered in the medical decision making process. - CT A/P CT Interpretation: Positive (See Comments) CT Interpretation Completed By: Radiologist - 1. There may be mild peripancreatic fat stranding, cannot exclude mild acute pancreatitis. 2. There may be trace free fluid in the right adnexa, cannot exclude ovarian cyst rupture. 3. No evidence for diverticulosis or diverticulitis. Dr. Collazo has reviewed this report. Abdominal Pain Fem Course/Dx - Course Course Of Treatment: A 37-year-old F presents to the ED with a CC of epigastric abd pain for 12 hours. (+) occasional radiation to back. (-) N/V/D, SOB, CP. PMHx pancreatitis, kidney stones, kidney infections, GERD, peptic ulcers. A CT A/P reveals: 1. There may be mild peripancreatic fat stranding, cannot exclude mild acute pancreatitis. 2. There may be trace free fluid in the right adnexa, cannot exclude ovarian cyst rupture. 3. No evidence for diverticulosis or diverticulitis. In the ED course, pt was given nl saline, dilaudid, contrast, morphine, and zofran. - Diagnoses Differential Diagnosis: Positive: Diverticulitis, Gall Bladder Disease, Pancreatitis, Renal Colic Provider Diagnoses: Acute pancreatitis - Provider Notifications Discussed Care Of Patient With: Raul Sheth Time Discussed With Above Provider: 01:11 Instructed by Provider To: Other - Accepts admission. - Critical Care Time Critical Care Time: 30-74 min Discharge - Sign-Out/Discharge Documenting (check all that apply): Patient Departure - admit - Discharge Plan Condition: Fair Disposition: ADMITTED TO [facility] - Billing Disposition and Condition Condition: FAIR Disposition: Admitted to [facility] - Attestation Statements Document Initiated by Daniel: Yes Documenting Scribe: Clark Daniels Provider For Whom Daniel is Documenting (Include Credential): Dr. Abdelrahman Collazo MD Scribe Attestation: Clark Kirkland scribed for Dr. Abdelrahman Collazo MD on 03/29/18 at 0441. Scribe Documentation Reviewed: Yes Provider Attestation: The documentation as recorded by the Clark cruz accurately reflects the service I personally performed and the decisions made by me, Dr. Abdelrahman Collazo MD
[2018-03-28] MEDS ORDERED: NS 0.9% 1000 ML* 1,000 ML IV ONE (21:17)
--- OUTSIDE RECORDS SUMMARY | 2018-03-28 21:20 | XMS REPORT ---
:1980 External Reference #:[id number] Author Organization [facility] Address [address] [place] [address] [place] [address] Phone [phone] Care Team Providers Name Role Phone Marc Ramey MD Primary Care Physician Unavailable Payers Type Date Identification Numbers Payment Provider Subscriber Commercial Policy Number: [id number] [employer] Medicaid Abby Carlton PayID: [id number] [address] [place] [id number] Advance Directives Type Date Description Status Comment Other Directive 01/27/2017 Health Care Proxy Current and Verified Problems Date Description Provider Status Onset: 12/13/2016 Alcohol-induced acute pancreatitis Malina Blount, N.P. Active Onset: 12/13/2016 Mild intermittent asthma Malina Blount N.Venkatesh. Active Onset: 09/28/2017 Closed fracture of metatarsal bone Casey Yu MD Active Onset: 09/28/2017 Closed traumatic dislocation of Casey Yu MD Active tarsometatarsal joint Onset: 01/15/2018 Epigastric pain Glenda Melton D.O. 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 Active Onset: 01/21/2018 Gastroduodenitis Dane Morris MD Onset: 01/21/2018 Tobacco user Dane Morris MD Family History Date Family Member(s) Problem(s) Comments [...] Use Currently consumes alcohol Drinks when watching [employer] races once weekly. Recreational Drug Use Denies Drug Use Smoking Light tobacco smoker (10 or fewer cigarettes/day) Allergies, Adverse Reactions, Alerts Date Description Reaction Status Severity Comments 05/05/2013 Codeine active 06/03/2017 Metaxalone active feels "loopy" 06/03/2017 Zithromax active violently ill 07/29/2017 Azithromycin active 11/05/2017 Keflex active Severe Can't breath 11/05/2017 Qvar active 02/18/2018 Lorazepam Nausea and Vomiting, Increased active confusion Medications Medication Date Status Form Strength Qnty SIG Indications Ordering Provider Gabapentin 03/12 Active Tablets 600mg 90tab take 1 s three times Varn, N.P. a day Walker Swivel 11/05 Active Misc 3" 1unit use this to S93.324D Malina Wheel/ s ambulate Varn, N.P. Adjustment Holes/3" With Seat Hydroxyzine 01/27 Active Capsules 25mg 30cap one by F41.1 Malina Pam s mouth every Varn, N.P. 8 hours as needed for anxiety Ondansetron 12/24 Active Tablets 4mg 20tab 1 tablet R11.2 Dispers s under Varn, N.P. tongue every 8 hours as needed nausea Seroquel Active Tablets 25mg 30tab take 1 R11.2 Malina s tablet by Varn, N.P. mouth at bedtime Cyclobenzaprine Active Tablets 5mg 30tab take one Malina HCL / s tablet by Varn, N.P. mouth every 8 hours prn. may take a second tablet if first not effetive. Nicotine Active Patches 21mg/24HR Apply 1 Unknown / 24HR Patch Transdermal ly Every Day AT 800Am Chlordiazepoxide Active Capsules 25mg Take 1 Unknown HCL / Capsule By Mouth Three Times Daily Maximum Daily Dose Of 3 Caps Melatonin ER Active Tablets 3mg 30tab 1 tab by Malina / ER s mouth at Varn, N.P. bedtime Omeprazole Active Capsules 40mg 1 by mouth Unknown every day Baclofen Active Tablets 10mg take 1 tab Unknown 3 times a day as needed for muscle spasm Macrobid 11/08 Hx Capsules 100mg 14cap 1 by mouth s twice a day Varn, N.P. - for 7 days 11/15 Sulfamethoxazole/ 11/05 Hx Tablets 800-160mg 14tab one by N39.0 Trimethoprim s mouth twice Varn, N.P. - a day for 7 Meloxicam 11/05 Hx Tablets 7.5mg 60tab 1 by mouth S93.324D s bid prn Varn, N.P. - pain 01/24 Gabapentin 09/10 Hx Tablets 600mg 90tab take 1 F33.9 s three times Varn, N.P. - a day 01/25 Qvar 08/21 Hx Aerosol 80mcg/Act 26.1u 2 puffs nits twice daily Varn, N.P. - 11/05 Asmanex HFA 08/18 Hx Aerosol 200mcg/Ac 13gm 1 t inhalation Varn, N.P. - bid 08/21 Baclofen 06/25 Hx Tablets 10mg 45tab Take 1/ M54.9 s Tablet By Varn, N.P. - Mouth Every 01/25 8 Hours Needed For Muscle Spasm Omeprazole 06/24 Hx Capsules 20mg 30cap [address] church every day Viraj Kaba M.D. 01/25 Doxycycline 06/14 Hx Capsules 100mg one tablet Unknown Hycl twice daily - for 10 days 06/25 ([facility] [place] Pulmicort 03/11 Hx Aerosol 180mcg/Ac 1unit [...] - mouth day 03/05 2, 4 by mouth day 3, 3 by mouth day 4, 2 by mouth day 5, 1 by mouth day 6 Flovent HFA 02/27 Hx Aerosol 110mcg/Ac 12gm 2 puffs J45.901 t twice daily Varn, N.P. - 03/11 Omeprazole 01/27 Hx Capsules 40mg 30cap [address] church every day Varn, N.P. - 02/27 Flector 12/24 Hx Patches 1.3% 60uni apply 1 M54. ts patch twice Varn, N.P. - a day 06/02 Gabapentin 12/24 Hx Capsules 300mg 270ca take 3 . ps capsules by Varn, N.P. - mouth three 01/15 times a day /2017 Creon 12/12 Hx Caps 6000Unit 90cap One po with Part s each meal Varn, N.P. - tid 01/27 Omeprazole 12/10 Hx Tablets 20mg 30tab [address] church every day Varn, N.P. - 01/27 Oxycodone HCL 12/10 Hx Tablets 5mg 15tab one by K85.90 s mouth every Varn, N.P. - 8 hours as 02/27 needed pain Oxycodone HCL Hx Tablets 10mg 1 po q 4 Unknown /0000 hrs prn - pain MDD 6 03/29 tabs ([facility] summary[place] Omeprazole Hx Capsules 40mg 1 by mouth Unknown /0000 DR every day - ([facility] ARIELA 06/24 summary) Ibu-200 Hx Tablets 200mg 2 tab as Unknown /0000 needed. - 01/25 Oxycodone HCL Hx Tablets 5mg 30tab 1 tab po Casey /0000 s q4-6 hours Viraj Yu MD 01/26 Aspirin Ec Hx Tablets 325mg take 1 tab Unknown /0000 DR by mouth - every day x 12/19 14 days. with food. Methadone HCL Hx Tablets 10mg Take 1 Unknown /0000 Tablet By - Mouth Three 01/18 Times Daily /2017 Maximum Daily Dose Of 3 Per D Sucralfate Hx Tablets 1gm Take 1 Unknown /0000 Tablet By - Mouth Two 03/12 Times Gabapentin Hx Capsules 300mg 1 by mouth Unknown /0000 three times - a day 03/12 Folic Acid Hx Tablets 1mg 1 by mouth Unknown /0000 every day - 03/12 Benzocaine/Mentho Hx Unknown l Juan /0000 - 03/12 Nicotine Tartrate Hx Powder 10mg Unknown /0000 inhaled - every 2 03/12 hours needed for cravings Thiamine HCL Hx Tablets 100mg 1 by mouth Unknown /0000 every day - 03/12 Medications Administered in Office Medication Date Status Form Strength Qnty SIG Indications Ordering Provider Ozzy Administered Injection Slava 40MG Bashir Westbrook M.D. Immunizations CPT Code Status Date Vaccine Reaction Lot # 35912 Given 03/12/2018 Influenza Virus Vaccine, No immediate [id number] Quadrivalent, Split, reaction..jh Preservative Free 98082 Given 03/27/2014 Tdap - Tetanus/Diptheria/Acellular Pertussis 28954 Given 06/26/2011 Influenza Virus Vaccine, Quadrivalent, Split, Preservative Free 82498 Given 07/31/2009 Influenza Virus Vaccine, Quadrivalent, Split, Preservative Free 73536 Given 07/31/2009 Influenza Virus Vaccine, Quadrivalent, Split, Preservative Free 02416 Given 07/31/2009 Influenza Virus Vaccine, Quadrivalent, Split, Preservative Free 16426 Given 07/31/2009 Influenza Virus Vaccine, Quadrivalent, Split, Preservative Free 15760 Given 07/31/2009 Influenza Virus Vaccine, Quadrivalent, Split, Preservative Free 70289 Given 07/31/2009 Influenza Virus Vaccine, Quadrivalent, Split, Preservative Free 29295 Given 06/25/2007 Influenza Virus Vaccine, Quadrivalent, Split, Preservative Free 82994 Given 06/25/2007 Influenza Virus Vaccine, Quadrivalent, Split, Preservative Free 80118 Given 06/25/2007 Influenza Virus Vaccine, Quadrivalent, Split, Preservative Free 06050 Given 06/25/2007 Influenza Virus 3Yrs & Over 81651 Given 07/08/2004 Tetanus And Diptheria (Td) For Adult Use Preservative Free 48847 Given 07/08/2004 Measles Mumps And Rubella MMR Vital Signs Date Vital Result Comment 03/23/2018 Height 61 inches 5'1" Weight 114.00 lb Heart Rate 76 /min BP Systolic 120 mmHg BP Diastolic 70 mmHg Respiratory Rate 12 /min Pain Level 10 BMI (Body Mass Index) 21.5 kg/m2 03/12/2018 Heart Rate 97 /min BP Systolic 122 mmHg BP Diastolic 82 mmHg O2 % BldC Oximetry 95 % 03/04/2018 Height 61 inches 5'1" Heart Rate 68 /min BP Systolic 132 mmHg BP Diastolic 100 mmHg Respiratory Rate 20 /min Body Temperature 96.7 F Pain Level 9 02/18/2018 Height 61 inches 5'1" Weight 125.00 lb Heart Rate 82 /min BP Systolic Sitting 120 mmHg BP Diastolic Sitting 84 mmHg Respiratory Rate 16 /min Pain Level 10 BMI (Body Mass Index) 23.6 kg/m2 02/03/2018 Height 61 inches 5'1" Weight 125.00 lb Heart Rate 80 /min BP Systolic 114 mmHg BP Diastolic 64 mmHg Pain Level 8 BMI (Body Mass Index) 23.6 kg/m2 12/23/2017 Height 61 inches 5'1" Weight 120.00 [...] Test Date Test Result H/L Range Note Urinalysis Profile 01/14/2018 Urine Color Yellow Urine Appearance Cloudy Urine Specific [place] 1.018 1.010-1.030 Urine pH 6.0 5-9 Urine Urobilinogen Negative Negative Urine Ketones Trace Negative Urine Protein 1+(30 mg/dL) Negative Urine Leukocytes 1+ Negative Urine Blood Negative Negative Urine Nitrite Negative Negative Urine Bilirubin Negative Negative Urine Glucose Negative Negative Urine White Blood Cell 3+(>20/hpf) Absent Urine Red Blood Cell Trace(0-2/hpf) Absent Urine Bacteria Absent Absent Urine Squamous Epithelial Cell Present Absent Urine Transitional Epithelial Present Absent CBC Auto Diff 01/14/2018 White Blood Count 11.0 10^3/uL High 3.5-10.8 Red Blood Count 4.72 10^6/uL 4.00-5.40 Hemoglobin 14.5 g/dL 12.0-16.0 Hematocrit 43 % 35-47 Mean Corpuscular Volume 91 fL 80-97 Mean Corpuscular Hemoglobin 31 pg 27-31 Mean Corpuscular HGB Conc 34 g/dL 31-36 Red Cell Distribution Width 20 % High 10.5-15 Platelet Count 173 10^3/uL 150-450 Mean Platelet Volume 7.9 um3 7.4-10.4 Abs Neutrophils 8.8 10^3/uL High 1.5-7.7 Abs Lymphocytes 1.2 10^3/uL 1.0-4.8 Abs Monocytes 0.8 10^3/uL 0-0.8 Abs Eosinophils 0.1 10^3/uL 0-0.6 Abs Basophils 0.1 10^3/uL 0-0.2 Abs Nucleated RBC 0 10^3/uL Granulocyte % 80.0 % 38-83 Lymphocyte % 11.0 % Low 25-47 Monocyte % 7.1 % High 0-7 Eosinophil % 0.8 % 0-6 Basophil % 1.1 % 0-2 Nucleated Red Blood Cells % 0 Comp Metabolic Panel 01/14/2018 Sodium 134 mmol/L Low 135-145 Potassium 3.8 mmol/L 3.5-5.0 Chloride 100 mmol/L Low 101-111 Co2 Carbon Dioxide 26 mmol/L 22-32 Anion Gap 8 mmol/L 2-11 Glucose 100 mg/dL 70-100 Blood Urea Nitrogen 8 mg/dL 6-24 Creatinine 0.85 mg/dL 0.51-0.95 BUN/Creatinine Ratio 9.4 8-20 Calcium 9.9 mg/dL 8.6-10.3 Total Protein 8.1 g/dL 6.4-8.9 Albumin 4.6 g/dL 3.2-5.2 Globulin 3.5 g/dL 2-4 Albumin/Globulin Ratio 1.3 1-3 Total Bilirubin 0.90 mg/dL 0.2-1.0 Alkaline Phosphatase 161 U/L High 34-104 Alt 37 U/L 7-52 Ast 82 U/L High 13-39 Egfr Non- 75.7 >60 Egfr 91.6 >60 1 Laboratory test finding 01/14/2018 HCG < 0.60 mIU/mL 2 Lipase 3111 U/L High 11.0-82.0 Alcohol < 10 mg/dL <10 Urine Culture And 01/14/2018 Urine Culture SEE RESULT BELOW 3 Sensitivities Ua Routine 11/05/2017 Ua Specific [place] 1010 Ua PH 6 Ua Color brown Ua Appera cloudy Ua WBC ++ Ua Protein + Ua Glucose ++ Ua Ketones neg. Ua Bilirubin neg. Ua Urobilinogen neg. Ua Nitrite neg. Ua Occult Blood about 250 Urine Culture And Sensitivities 11/05/2017 Urine Culture SEE RESULT BELOW 4 Urinalysis Profile 09/04/2017 Urine Color Yellow Urine Appearance Cloudy Urine Specific [place] 1.021 1.010-1.030 Urine pH 6.0 5-9 Urine [...] And 09/04/2017 Urine Culture SEE RESULT BELOW 5 Sensitivities CBC Auto Diff 09/04/2017 White Blood [...] Egfr Non- 90.2 >60 Egfr 116.0 >60 6 Laboratory test finding 09/04/2017 Magnesium 2.1 mg/dL 1.9-2.7 Amylase 41 U/L 29-103 Lipase 34 U/L 11.0-82.0 CRP High Sensitivity 2.35 mg/L 7 Alcohol 54 mg/dL High <10 HCG < 0.60 mIU/mL 8 Troponin-I (TnI) 0.00 ng/mL <0.04 Laboratory test finding 06/24/2017 Lactic Acid 1.2 mmol/L 0.5-2.0 9 CBC Auto Diff 06/24/2017 White Blood Count [...] Egfr Non- 68.6 >60 Egfr 88.2 >60 10 Laboratory test finding 06/24/2017 Magnesium 2.1 mg/dL 1.9-2.7 Lipase 541 U/L High 11.0-82.0 Creatine Kinase(CK) 25 U/L 10-223 C Reactive Protein 1.94 mg/L < 5.00 11 HCG < 0.60 mIU/mL 12 Lipid Profile (Trig/Chol/HDL) 06/24/2017 Triglycerides 98 mg/dL 13 Cholesterol 166 mg/dL 14 HDL Cholesterol 49.4 mg/dL 15 LDL Cholesterol 97 mg/dL 16 Laboratory test finding 06/24/2017 Alcohol < 10 mg/dL <10 Urinalysis Profile 06/24/2017 Urine Color Straw Urine Appearance Cloudy Urine Specific [place] 1.002 Low 1.010-1.030 Urine pH 6.0 5-9 [...] 95-98 Base Excess Arterial -6.4 Low -2.0-2.0 17 Hco3 Arterial 19.8 mmol/L 19-31 CBC Auto [...] Egfr Non- 74.1 >60 Egfr 95.3 >60 18 Laboratory test 06/12/2017 D Dimer Quantitative 262 ng/mL High Less Than 230 19 finding Amylase 50 U/L 29-103 Lipase < 10 U/L Low 11.0-82.0 C Reactive Protein 222.45 mg/L High < 5.00 20 Troponin-I (TnI) 0.03 ng/mL <0.04 Strep AB Anti Dnase B 06/12/2017 Anti Streptolysin O Antibody 121 IU/mL 0 - 530 Profile Anti-DNase B <74 U/mL 0 - 300 21 Urinalysis Profile 06/08/2017 Urine Color Red Urine Appearance Cloudy Urine pH TNP 5-9 22 Urine Urobilinogen TNP Negative 23 Urine Ketones TNP Negative 24 Urine Protein TNP Negative 25 Urine Leukocytes TNP Negative 26 Urine Blood TNP Negative 27 Urine Nitrite TNP Negative 28 Urine Bilirubin TNP Negative 29 Urine Glucose TNP Negative 30 Urine Specific [place] 1.005 Low 1.010-1.030 Urine White Blood Cell 3+(>20/hpf) Absent Urine Red Blood Cell 3+(>10/hpf) Absent Urine Bacteria 1+ Absent Urine Squamous Epithelial Cell Present Absent Urine Culture And 06/08/2017 Urine Culture SEE RESULT BELOW 31 Sensitivities Comp Metabolic Panel 06/08/2017 Sodium 134 mmol/L [...] Egfr Non- 84.0 >60 Egfr 108.1 >60 32 Laboratory test finding 06/08/2017 Lipase 18 U/L 11.0-82.0 CRP High Sensitivity 3.72 mg/L 33 HCG < 0.60 mIU/mL 34 CBC Auto Diff 06/08/2017 White Blood Count [...] Blood Cells % 0.1 Laboratory test finding 04/14/2017 Amylase 40 U/L 29-103 Lipase 40 U/L 11.0-82.0 Comp Metabolic Panel 04/14/2017 Sodium 136 mmol/L [...] Egfr Non- 76.1 >60 Egfr 97.9 >60 35 Drug Abuse 20 Urine 04/13/2017 Urine Amphetamine Negative ng/mL 36 Urine Barbiturates Negative ng/mL 37 Urine Benzodiazepines Negative ng/mL 38 Urine Cocaine Negative ng/mL 39 Urine Phencyclidine Negative ng/mL Cutoff: 25 Urine Tetrahydrocannabinol Negative ng/mL Cutoff: 50 40 Creatinine, Urine 122.2 mg/dL Specific [place] 1.004 pH 7.4 Oxidants Negative 41 Adulterants Comment Normal Codeine, Ur Not Detected ng/mL Cutoff: 25 42 Ctjzjlc-1-kjmi-glucuronide, Ur Not Detected ng/mL 43 Morphine, Ur Not Detected ng/mL Cutoff: 25 44 Khtjtovq-9-bfdf-glucuronide, U Not Detected ng/mL 45 6-monoacetylmorphine, Ur Not Detected ng/mL Cutoff: 25 46 Hydrocodone, Ur Not Detected ng/mL Cutoff: 25 47 Norhydrocodone, Ur Not Detected ng/mL Cutoff: 25 48 Dihydrocodeine, Ur Not Detected ng/mL Cutoff: 25 49 Hydromorphone, Ur Not Detected ng/mL Cutoff: 25 50 Zlymixxsozcdv4cumefcpvfyroybf Not Detected ng/mL 51 Oxycodone, Ur Present ng/mL Cutoff: 25 52 Noroxycodone, Ur Present ng/mL Cutoff: 25 53 Oxymorphone, Ur Not Detected ng/mL Cutoff: 25 54 Kwegusvuorw-1-thhc-glucuronide Present ng/mL 55 Noroxymorphone, Ur Present ng/mL Cutoff: 25 56 Fentanyl, Ur Not Detected ng/mL Cutoff: 2 57 Norfentanyl, Ur Not Detected ng/mL Cutoff: 2 58 Meperidine, Ur Not Detected ng/mL Cutoff: 25 59 Normeperidine, Ur Not Detected ng/mL Cutoff: 25 60 Naloxone, Ur Not Detected ng/mL Cutoff: 25 61 Ihxskzob-2-hgmy-glucuronide, U Not Detected ng/mL 62 Methadone, Ur Not Detected ng/mL Cutoff: 25 63 Eddp, Ur Not Detected ng/mL Cutoff: 25 64 Propoxyphene, Ur Not Detected ng/mL Cutoff: 25 65 Norpropoxyphene, Ur Not Detected ng/mL Cutoff: 25 66 Tramadol, Ur Not Detected ng/mL Cutoff: 25 67 O-desmethyltramadol, Ur Not Detected ng/mL Cutoff: 25 68 Tapentadol, Ur Not Detected ng/mL Cutoff: 25 69 N-desmethyltapentadol, Ur Not Detected ng/mL Cutoff: 50 70 Ubanvrquaa-uwyf-vowfdhesfhz, U Not Detected ng/mL 71 Buprenorphine, Ur Not Detected ng/mL Cutoff: 5 72 Norbuprenorphine, Ur Not Detected ng/mL Cutoff: 5 73 Norbuprenorphine glucuronide Not Detected ng/mL Cutoff: 20 74 Opioid Interpretation See Comment 75 Laboratory test finding 04/10/2017 TSH (Thyroid Stim Horm) 0.66 mcIU/mL 0.34-5.60 Vitamin B12 197 pg/mL 180-914 76 Glucose 101 mg/dL High 70-100 CBC Auto Diff 12/15/2016 White Blood Count [...] Blood Cells % 0 Comp Metabolic Panel 12/15/2016 Sodium 137 mmol/L [...] Egfr Non- 98.5 >60 Egfr 126.6 >60 77 Laboratory test finding 12/15/2016 Lipase 32 U/L 11.0-82.0 Amylase 37 U/L 29-103 1 Because ethnic data is not always readily [...] 15-29 5 Kidney failure <15 (or dialysis) 2 <5.0 Negative 5.0 - 25.0 Indeterminate (Repeat testing recommended after 72 hours) >25.0 Positive Perimenopausal women can display HCG levels of up to 20 mIU/mL 3 SEE RESULT BELOW Name: ABBY CARLTON : [address]: Chasidy Ivy MD Acct: [id number] Unit: [id number] AGE: 37 Location: [place] [address] Re01/15/18 SEX: F Status: ADM IN SPEC: [id number] EH: 01/14/[address] [facility] [address]: Larry Ricks MD REQ: [id number] RECD: 01/14/18 STATUS: LOIDA MCKNIGHT DR: Malina Blount NETWORK RELATIONS CONSULTANT _ SOURCE: URINE SPDESC: ORDERED: Urine Culture Procedure Result Reported Site Urine Culture Final 01/16/18- 1141 ML No growth of clinically significant organisms * ML - Main Lab . END OF REPORT DEPARTMENT OF PATHOLOGY, [address] [place] [address] Francisco Marques M.D. Director [facility] # [id number] 4 SEE RESULT BELOW Name: ABBY CARLTON Barrie : [address]: Malina Blount NP Acct: [id number] Unit: [id number] AGE: 37 Location: [facility] Re11/05/17 SEX: F Status: REG REF SPEC: [id number] EH: 11/05/171158 SUBM DR: Malina Blount NP REQ: [id number] RECD: 11/05/17 STATUS: COMP _ SOURCE: URINE SPDESC: ORDERED: Urine Culture COMMENTS: [id number] Urine Source: Clean Catch Procedure Result Reported Site Urine Culture Final 11/07/17- 0843 ML Organism 1 ESCHERICHIA COLI [place] Count >100,000 (Many) CFU/ML 1. ESCHERICHIA COLI [...] . END OF REPORT DEPARTMENT OF PATHOLOGY, [address] [place] [address] Francisco Marques M.D. Director [facility] # [id number] 5 SEE RESULT BELOW Name: ABBY CARLTON : [address]: Jose Lorenzo MD Acct: [id number] Unit: [id number] AGE: 37 Location: ED Re09/04/17 SEX: F Status: DEP ER SPEC: [id number] EH: 09/04/[address] [facility] [address]: Lavern CRUZ REQ: [id number] RECD: 09/04/17 STATUS: LOIDA MCKNIGHT DR: Leila Blount NETWORK RELATIONS CONSULTANT _ SOURCE: URINE [facility]: ORDERED: Urine Culture Procedure Result Reported Site Urine Culture Final 09/06/17- 1010 ML Mixed iban; possible contamination. Suggest resubmission. * ML - Main Lab . END OF REPORT DEPARTMENT OF PATHOLOGY, [address] [place] [address] Francisco Marques M.D. Director [facility] # [id number] 6 Because ethnic data is not always readily [...] 15-29 5 Kidney failure <15 (or dialysis) 7 Low risk: <1.00 Average risk: 1.00-3.00 High risk: >3.00 8 <5.0 Negative 5.0 - 25.0 Indeterminate (Repeat testing recommended after 72 hours) >25.0 Positive Perimenopausal women can display HCG levels of up to 20 mIU/mL 9 [facility] Severe Sepsis and Septic Shock Management Bundle Measure requires all lactic acids initially measuring >2.0 mmol/L be repeated. 10 Because ethnic data is not always readily [...] 15-29 5 Kidney failure <15 (or dialysis) 11 Acute inflammation: >10.00 12 <5.0 Negative 5.0 - 25.0 Indeterminate (Repeat testing recommended after 72 hours) >25.0 Positive Perimenopausal women can display HCG levels of up to 20 mIU/mL 13 Desirable: <150 Borderline High: 150-199 High: 200-499 Very High: >500 14 Desirable: <200 Borderline High: 200-239 High: >239 15 Low: <40 Desirable: 40-60 High: >60 16 Desirable: <100 Near Optimal: 100-129 Borderline High: 130-159 High: 160-189 Very High: >189 17 Reference ranges based on room air. 18 Because ethnic data is not always readily [...] 15-29 5 Kidney failure <15 (or dialysis) 19 Please note: The following may produce a false positive D Dimer test: - Rheumatoid factor greater than 60 IU/ml - Plasma hemoglobin greater than 0.05 gm/dl - Bilirubin greater than 50 mg/dl - Lipids greater than 1000 mg/dl - FDP greater than 20 ug/ml 20 Acute inflammation: >10.00 21 Test Performed by: [address] [id number] 22 Unable to evaluate urinalysis dipstick results due to interfering color. Notified [id number] 1835 06/08/17. 23 Unable to evaluate urinalysis dipstick results due to interfering color. Notified [id number] 1835 06/08/17. 24 Unable to evaluate urinalysis dipstick results due to interfering color. Notified [id number] 1835 06/08/17. 25 Unable to evaluate urinalysis dipstick results due to interfering color. Notified [id number] 1835 06/08/17. 26 Unable to evaluate urinalysis dipstick results due to interfering color. Notified [id number] 1835 06/08/17. 27 Unable to evaluate urinalysis dipstick results due to interfering color. Notified [id number] 1835 06/08/17. 28 Unable to evaluate urinalysis dipstick results due to interfering color. Notified [id number] 1835 06/08/17. 29 Unable to evaluate urinalysis dipstick results due to interfering color. Notified [id number] 1835 06/08/17. 30 Unable to evaluate urinalysis dipstick results due to interfering color. Notified [id number] 1835 06/08/17. 31 SEE RESULT BELOW Name: SHARA,ABBY A : [address]: Jose Lorenzo MD Acct: [id number] Unit: [id number] AGE: 36 Location: ED Re06/08/17 SEX: F Status: DEP ER SPEC: [id number] EH: 06/08/[address]: Lavern CRUZ REQ: [id number] RECD: 06/08/17 STATUS: LOIDA MCKNIGHT DR: [facility] Malina Blount NETWORK RELATIONS CONSULTANT _ SOURCE: URINE SPDESC: ORDERED: Urine Culture Procedure Result Reported Site Urine Culture Final 06/10/17- 0815 ML No growth of clinically significant organisms * ML - MAIN LAB ([facility]) . END OF REPORT * ML=Testing performed at Main Lab DEPARTMENT OF PATHOLOGY, [address] [place] [address] Francisco Marques M.D. Director [facility] # [id number] 32 Because ethnic data is not always [...] 5 Kidney failure <15 (or dialysis) 33 Low risk: <1.00 Average risk: 1.00-3.00 High risk: >3.00 34 <5.0 Negative 5.0 - 25.0 Indeterminate (Repeat testing recommended after 72 hours) >25.0 Positive Perimenopausal women can display HCG levels of up to 20 mIU/mL 35 Because ethnic data is not always readily [...] 15-29 5 Kidney failure <15 (or dialysis) 36 REFERENCE VALUE Cutoff: 500 37 REFERENCE VALUE Cutoff: 200 38 REFERENCE VALUE Cutoff: 100 39 REFERENCE VALUE Cutoff: 150 40 ADDITIONAL INFORMATION This report is intended for use in clinical monitoring or management of patients. It is not intended for use in employment-related testing. 41 REFERENCE VALUE Cutoff: 200 mg/L 42 Tylenol 3 43 Metabolite of codeine REFERENCE VALUE Cutoff: 100 44 Coco Schmid, Contin; Also a minor metabolite (10%) of codeine and can be seen in low concentrations (<2,000 ng/mL) with poppy seed ingestion. 45 Metabolite of morphine REFERENCE VALUE Cutoff: 100 46 Metabolite of heroin 47 Lortab, [place], Vicodin; Also a very minor metabolite of codeine and impurity (<1%) of oxycodone. 48 Metabolite of hydrocodone 49 Metabolite of hydrocodone 50 Dilaudid, Exalgo; Also a metabolite of hydrocodone and a minor (<5%) metabolite of morphine. 51 Metabolite of hydromorphone REFERENCE VALUE Cutoff: 100 52 Endocet, Percocet, Oxycontin 53 Metabolite of oxycodone 54 Numorphan, Opana; Also a metabolite of oxycodone. 55 Metabolite of oxymorphone REFERENCE VALUE Cutoff: 100 56 Metabolite of oxymorphone 57 Actiq, Duragesic, [place] 58 Metabolite of fentanyl 59 Demerol 60 Metabolite of meperidine 61 Narcan 62 Metabolite of naloxone REFERENCE VALUE Cutoff: 100 63 Dolophine 64 Metabolite of methadone 65 Darvon, Darvocet 66 Metabolite of propoxyphene 67 Tradol, Ultram, Ultracet 68 Metabolite of tramadol 69 Nucynta 70 Metabolite of tapentadol 71 Metabolite of tapentadol REFERENCE VALUE Cutoff: 100 72 Buprenex, Suboxone 73 Metabolite of buprenorphine 74 Metabolite of buprenorphine 75 Test detected the presence of oxycodone and several metabolites (noroxycodone, noroxymorphone, and zqkrmksbwcr-6-[place]io-glucuronide). Suspect use of oxycodone or possibly oxycodone and oxymorphone within the past three days. ADDITIONAL INFORMATION This test was developed and its performance characteristics determined by [facility] in a manner consistent with CLIA requirements. This test has not been cleared or approved by the U.S. Food and Drug Administration. Test Performed by: [facility] [address] [place] [address] 76 Normal Range 180 to 914 Indeterminate Range 145 to 180 Deficient Range <145 77 Because ethnic data is not always readily [...] dialysis) Procedures Date CPT Code Description Status 02/18/2018 20834 Injection,Anesthetic Agent, Other Peripheral Nerve Completed Branch 01/20/2018 76500 Endoscopy Upper GI Biopsy Completed 10/14/2017 81810 Short Leg Cast Completed 10/06/2017 43955 Short Leg Cast Completed 10/01/2017 40235 Dislocation Tarsometatarsal JT W/Wo Fixation Open TX Completed 10/01/2017 95046 Dislocation Tarsometatarsal JT W/Wo Fixation Open TX Completed 10/01/2017 47963 Dislocation Tarsometatarsal JT W/Wo Fixation Open TX Completed 10/01/2017 96983 Dislocation Tarsometatarsal JT W/Wo Fixation Open TX Completed 10/01/2017 44270 Open TX Metatarsal FX,Incl Intl Fixation When Performed Completed 10/01/2017 81072 FX Metatarsal Care Completed 10/01/2017 24826 FX Metatarsal Care Completed 10/01/2017 42496 FX Tarsal Care Completed 10/01/2017 97396 FX Tarsal Care Completed 06/12/2017 12927 ECHO Transthorasic Realtime 2D W Doppler & Color Flow Completed Hosp 06/12/2017 92237 EKG, Interpretation Only Completed Encounters Type Date Location Provider CPT E/M Dx Office Visit 03/04/2018 [facility] 22531 G57.91 9:15a Jesu Mims S92.334D Office Visit 02/18/2018 10:15a [facility] 11313 G57.91 Of Jesu Mims Office Visit 02/03/2018 3:45p [place] [address] S93.324D Of Jesu S92.334D S92.321A S92.234A S92.224A S92.344A M79.671 Office Visit 01/21/2018 10:35a [place] [facility] [place] 16913 K85.20 Assoc,pc Hospitalists MD Fernanda K29.70 F10.10 F17.210 Office Visit 01/20/2018 10:35a [facility],pc Samuel Alexxtrish, 23743 R10.13 Hospitalists M.DCarmina K85.20 F10.10 Z72.0 Office Visit 01/20/2018 7:00a [facility] [place] [address] R10.13 K85.20 K21.9 Office Visit 01/19/2018 10:34a [facility],pc Samuel Alexxtrish, 33292 K85.20 Hospitalists M.DCarmina F10.10 R10.13 Z72.0 Office Visit 01/18/2018 10:34a [facility],pc Samuel Alexxtrish, 98009 K85.20 Hospitalists M.DCarmina R10.13 F10.10 Office Visit 01/17/2018 [facility] Janice Nba, 33600 R10.13 10:34a Assoc, [employer] Hospitalists K85.20 F10.10 Office Visit 01/16/2018 [facility] Janice Nba, 71694 R10.13 10:33a Assoc, [employer] Hospitalists K85.20 F10.10 Office Visit 01/15/2018 10:33a [facility],pc Glenda Melton, 60366 R10.13 Hospitalists D.OCarmina K85.20 Office Visit 11/05/2017 11:20a [facility] Internal Medicine Malina Blount, N.P. 31228 Z00.00 [facility] F33.9 J45.20 F17.210 N39.0 K21.9 S93.324D Office Visit 09/28/2017 3:45p [place] [address] S92.334A Of Jesu S92.344A S93.324A Office Visit 09/22/2017 2:00p [place] [address] S92.334A Of Jesu S92.344A Office Visit 09/10/2017 9:00a [facility] Internal Medicine Malina Blount, N.P. 85288 F33.9 - [place] G89.4 Office Visit 07/29/2017 9:50a [facility] Internal Medicine Anastasia Cadet, 09634 M79.644 - Noelle Mims Z79.899 Office Visit 06/25/2017 9:00a [facility] [place] [address] J18.9 [place] M54.9 R79.9 R10.9 Office Visit 06/24/2017 10:14a [facility] Assoc, Norma Eller, N.P. 14783 K86.1 Hospitalists Office Visit 06/13/2017 7:16a [facility] Assoc,pc Norma Eller, N.P. 10770 J18.9 Hospitalists J45.20 Office Visit 06/12/2017 10:34a [facility] [place] [address] R06.02 Services Of [facility] N20.1 R00.0 R10.12 Office Visit 06/03/2017 11:20a [facility] Internal Medicine Mitesh Kimball, 54372 R07.89 - Noelle Mims Office Visit 04/13/2017 4:00p [facility] Internal Medicine Malina Blount, N.P. 72079 K86.0 - [place] M54.5 Office Visit 03/26/2017 10:40a [facility] Internal Medicine Malina Blount, N.P. 47158 M54.5 - [place] F41.1 K85.20 M79.2 Office Visit 03/08/2017 9:33a [facility] [place] [address] K85.20 Assoc,pc Hospitalists M54.5 J45.20 G89.29 Office Visit 03/07/2017 9:33a [facility] [place] [address] K85.20 Assoc,pc Hospitalists M54.5 J45.20 G89.29 Office Visit 03/06/2017 9:32a [facility] [place], [address] K85.20 Assoc,pc Hospitalists Felicita M54.5 J45.20 G89.29 Office Visit 02/27/2017 4:20p [facility] Internal Medicine Malina Blount, N.P. 07566 M54.5 - [place] J45.901 Office Visit 01/27/2017 2:20p [facility] Internal Medicine Malina Mine, N.P. 31660 R11.2 - [place] M54.5 F41.1 G47.00 B35.3 Office Visit 12/24/2016 3:00p [facility] Internal Medicine Malina Mine, N.P. 98405 K85.90 - [place] R11.2 M54.5 Office Visit 12/10/2016 4:00p [facility] Internal Medicine Malina Mine, N.P. 73742 J18.9 - [place] K85.90 R11.2 Office Visit 11/22/2016 8:29a [facility], Chasidy Ivy, 36324 J18.9 Hospitalists Felicita K85.90 Office Visit 11/21/2016 8:29a [facility],pc Chasidy Ivy, 13039 J18.9 Hospitalists Felicita M54.5 K85.90 J45.20 Office Visit 11/20/2016 8:28a [facility],pc Barbara Issa, 78134 J18.9 Hospitalists MHarsh K85.90 Office Visit 11/19/2016 8:27a [facility],pc Barbara Issa, 56470 J18.9 Hospitalists MHarsh M54.5 K85.90 Office Visit 11/18/2016 8:26a [facility] [place], [address] J18.9 Assoc, Hospitalists Felicita M54.5 K85.90 J45.20 Office Visit 11/15/2016 10:39a [facility] Yves Lee, 48864 K85.20 Assoc,pc Hospitalists Felicita N30.00 M54.5 F10.231 Office Visit 11/14/2016 2:34p [facility],julia Garner 67721 K85.20 Hospitalists Philip Dalton Office Visit 11/13/2016 2:33p [facility],julia Garner 38276 K85.20 Hospitalists Philip Dalton N30.00 F10.231 Office Visit 11/12/2016 2:32p [facility],pc Miller Garner 45465 K85.20 Hospitalists Philip Dalton F10.231 Office Visit 11/12/2016 10:38a [facility], Samuel Finley, 47498 K85.20 Hospitalists Felicita M54.5 F10.231 Office Visit 11/11/2016 10:38a [facility], Samuel Finley, 47171 K85.20 Hospitalists Felicita M54.5 F10.10 Office Visit 11/10/2016 10:35a [facility], 53625 K85.20 Ass, Hospitalists Ryland M54.5 F10.10 Office Visit 05/05/2013 10:00a [facility], 63945 354.0 C.M.A. Felicita 727.42 Plan of Care Future Appointment(s):04/12/2018 11:30 am - [facility] M.D.04/27/2018 10: 00 am - [facility] M.D. at [facility].M.ACarmina03/23/2018 - [facility] M.D.M79.671 Pain in right footReferral:Jean Paul Hartman MD, Physical Medicine/RehabFollow up:10-14 days ojhxenD37.91 Unspecified mononeuropathy of right lower limb
--- OUTSIDE RECORDS SUMMARY | 2018-03-28 21:21 | XMS REPORT ---
:1980 External Reference #:[id number] Author Organization [facility] [employer] Address [address] [place] [address] Phone [phone] Care Team Providers Name Role Phone Marc Ramey MD Primary Care Physician Unavailable Payers Type Date Identification Numbers Payment Provider Subscriber Commercial Policy Number: [id number] [employer] Medicaid Abby Carlton PayID: [id number] [address] [place] [id number] Advance Directives Type Date Description Status Comment [...] 01/16/2018 Alcohol abuse, uncomplicated Janice Arango, Active [employer] Onset: 01/19/2018 Tobacco use Samuel Finley M.D. [...] Use Currently consumes alcohol Drinks when watching [place] races once weekly. Recreational Drug Use Denies [...] twice daily - for 10 days 06/25 [place] [place] Pulmicort 03/11 Hx Aerosol 180mcg/Ac 1unit [...] prn - pain MDD 6 03/29 tabs [place] [place] Omeprazole Hx Capsules 40mg 1 by mouth Unknown /0000 DR every day - ([facility] [place]EL[place] 06/24 summary) Ibu-200 Hx Tablets 200mg [...] Code Status Date Vaccine Reaction Lot # 71053 Given 03/12/2018 Influenza Virus Vaccine, No immediate [id number] Quadrivalent, Split, reaction..jh Preservative Free 42308 Given 03/27/2014 Tdap - Tetanus/Diptheria/Acellular Pertussis 53417 Given 06/26/2011 Influenza Virus Vaccine, Quadrivalent, Split, Preservative Free 56484 Given 07/31/2009 Influenza Virus Vaccine, Quadrivalent, Split, Preservative Free 45522 Given 07/31/2009 Influenza Virus Vaccine, Quadrivalent, Split, Preservative Free 98384 Given 07/31/2009 Influenza Virus Vaccine, Quadrivalent, Split, Preservative Free 54836 Given 07/31/2009 Influenza Virus Vaccine, Quadrivalent, Split, Preservative Free 51930 Given 07/31/2009 Influenza Virus Vaccine, Quadrivalent, Split, Preservative Free 72505 Given 07/31/2009 Influenza Virus Vaccine, Quadrivalent, Split, Preservative Free 24232 Given 06/25/2007 Influenza Virus Vaccine, Quadrivalent, Split, Preservative Free 37922 Given 06/25/2007 Influenza Virus Vaccine, Quadrivalent, Split, Preservative Free 82619 Given 06/25/2007 Influenza Virus Vaccine, Quadrivalent, Split, Preservative Free 70507 Given 06/25/2007 Influenza Virus 3Yrs & Over 42772 Given 07/08/2004 Tetanus And Diptheria (Td) For Adult Use Preservative Free 08910 Given 07/08/2004 Measles Mumps And Rubella MMR Vital Signs Date Vital Result Comment 03/12/2018 Heart Rate 97 /min BP Systolic [...] Color Yellow Urine Appearance Cloudy Urine Specific [place] 1.018 1.010-1.030 Urine pH 6.0 5-9 Urine [...] 3 Sensitivities Ua Routine 11/05/2017 Ua Specific [place] 1010 Ua PH 6 Ua Color brown Ua Appera cloudy Ua WBC ++ Ua Protein + Ua Glucose ++ Ua Ketones neg. Ua Bilirubin neg. Ua Urobilinogen neg. Ua Nitrite neg. Ua Occult Blood about 250 Urine Culture And Sensitivities 11/05/2017 Urine Culture SEE RESULT BELOW 4 Urinalysis Profile 09/04/2017 Urine Color Yellow Urine Appearance Cloudy Urine Specific [place] 1.021 1.010-1.030 Urine pH 6.0 5-9 Urine [...] Color Straw Urine Appearance Cloudy Urine Specific [place] 1.002 Low 1.010-1.030 Urine pH 6.0 5-9 [...] Urine Glucose TNP Negative 30 Urine Specific [place] 1.005 Low 1.010-1.030 Urine White Blood Cell [...] 50 40 Creatinine, Urine 122.2 mg/dL Specific [place] 1.004 pH 7.4 Oxidants Negative 41 Adulterants Comment Normal Codeine, Ur Not Detected ng/mL Cutoff: 25 42 Zlushve-3-rchq-glucuronide, Ur Not Detected ng/mL 43 Morphine, Ur Not Detected ng/mL Cutoff: 25 44 Rdzjtlay-3-ywtf-glucuronide, U Not Detected ng/mL 45 6-monoacetylmorphine, Ur Not Detected ng/mL Cutoff: 25 46 Hydrocodone, Ur Not Detected ng/mL Cutoff: 25 47 Norhydrocodone, Ur Not Detected ng/mL Cutoff: 25 48 Dihydrocodeine, Ur Not Detected ng/mL Cutoff: 25 49 Hydromorphone, Ur Not Detected ng/mL Cutoff: 25 50 Qmcwgjmhzkzxr7jzkqoctcpikzpey Not Detected ng/mL 51 Oxycodone, Ur Present ng/mL Cutoff: 25 52 Noroxycodone, Ur Present ng/mL Cutoff: 25 53 Oxymorphone, Ur Not Detected ng/mL Cutoff: 25 54 Oaurpkkrhlm-1-rilk-glucuronide Present ng/mL 55 Noroxymorphone, Ur Present ng/mL Cutoff: 25 56 Fentanyl, Ur Not Detected ng/mL Cutoff: 2 57 Norfentanyl, Ur Not Detected ng/mL Cutoff: 2 58 Meperidine, Ur Not Detected ng/mL Cutoff: 25 59 Normeperidine, Ur Not Detected ng/mL Cutoff: 25 60 Naloxone, Ur Not Detected ng/mL Cutoff: 25 61 Iwtmrhjp-9-ledd-glucuronide, U Not Detected ng/mL 62 Methadone, Ur [...] Ur Not Detected ng/mL Cutoff: 50 70 Vrnqcxpcgj-mkvn-stmobpzvjbl, U Not Detected ng/mL 71 Buprenorphine, Ur [...] [address]: Chasidy Ivy MD Acct: [id number] Unit: [id number] AGE: 37 Location: [place] [address] Re01/15/18 SEX: F Status: ADM IN SPEC: [id number] EH: 01/14/18 [facility] DR: Larry Ricks MD REQ: [id number] RECD: 01/14/18 STATUS: LOIDA MCKNIGHT DR: Malina Blount [employer]IDE [employer]ER _ SOURCE: URINE SPDESC: ORDERED: Urine Culture Procedure Result Reported Site Urine Culture Final 01/16/18- 1141 ML No growth of clinically significant organisms * ML - Main Lab . END OF REPORT DEPARTMENT OF PATHOLOGY, [address] [place] [address] Francisco Marques M.D. Director MATTHEW # [id number] 4 SEE RESULT BELOW Name: ABBY CARLTON : [address]: Malina Blount NP Acct: [id number] Unit: [id number] AGE: 37 Location: [facility] Re11/05/17 SEX: F Status: REG REF SPEC: [id number] EH: 11/05/17-[address]: Malina Blount NP REQ: [id number] RECD: 11/05/17 STATUS: COMP _ SOURCE: URINE SPDESC: ORDERED: Urine Culture COMMENTS: [id number] Urine Source: Clean Catch Procedure Result Reported Site Urine Culture Final 11/07/17- 0843 ML Organism 1 ESCHERICHIA COLI [place] Count >100,000 (Many) CFU/ML 1. ESCHERICHIA COLI [...] . END OF REPORT DEPARTMENT OF PATHOLOGY, [address] [place] [address] Francisco Marques M.D. Director [facility] # [id number] 5 SEE RESULT BELOW Name: ABBY CARLTON : [address]: Jose Lorenzo MD Acct: [id number] Unit: [id number] AGE: 37 Location: ED Re09/04/17 SEX: F Status: DEP ER SPEC: [id number] EH: 09/04/17 [facility] DR: Lavern CRUZ REQ: [id number] RECD: 09/04/17 STATUS: LOIDA MCKNIGHT DR: Leila Blount [employer]ER _ SOURCE: URINE SPDESC: ORDERED: Urine Culture Procedure Result Reported Site Urine Culture Final 09/06/17- 1010 ML Mixed iban; possible contamination. Suggest resubmission. * ML - Main Lab . END OF REPORT DEPARTMENT OF PATHOLOGY, [address] [place] [address] Francisco Marques M.D. Director [facility] # [id number] 6 Because ethnic data is not always [...] levels of up to 20 mIU/mL 9 [facility] Severe Sepsis and Septic Shock Management Bundle [...] Acute inflammation: >10.00 21 Test Performed by: [address] [address] 22 Unable to evaluate urinalysis dipstick results due to interfering color. Notified [id number] 1835 06/08/17. 23 Unable to evaluate urinalysis dipstick results due to interfering color. Notified [id number] 1835 06/08/17. 24 Unable to evaluate urinalysis dipstick results due to interfering color. Notified [id number] 1835 06/08/17. 25 Unable to evaluate urinalysis dipstick results due to interfering color. Notified [id number] 1835 06/08/17. 26 Unable to evaluate urinalysis dipstick results due to interfering color. Notified [id number] 1835 06/08/17. 27 Unable to evaluate urinalysis dipstick results due to interfering color. Notified [id number] 1835 06/08/17. 28 Unable to evaluate urinalysis dipstick results due to interfering color. Notified [id number] 1835 06/08/17. 29 Unable to evaluate urinalysis dipstick results due to interfering color. Notified [id number] 1835 06/08/17. 30 Unable to evaluate urinalysis dipstick results due to interfering color. Notified [id number] 1835 06/08/17. 31 SEE RESULT BELOW Name: ABBY CARLTON : [address]: Jose Lorenzo MD Acct: [id number] Unit: [id number] AGE: 36 Location: ED Re06/08/17 SEX: F Status: DEP ER SPEC: [id number] EH: 06/08/[address]: Lavern CRUZ REQ: [id number] RECD: 06/08/17 STATUS: LOIDA MCKNIGHT DR: [facility] Malina Blount [employer]IDE [employer]KER _ SOURCE: URINE SPDESC: ORDERED: Urine Culture Procedure Result Reported Site Urine Culture Final 06/10/17- 0815 ML No growth of clinically significant organisms * ML - MAIN LAB (PSC1) . END OF REPORT * ML=Testing performed at Main Lab DEPARTMENT OF PATHOLOGY, [address] [place] [address] Francisco Marques M.D. Director [facility] # [id number] 32 Because ethnic data is not always [...] REFERENCE VALUE Cutoff: 100 44 Coco Schmid, MS Contin; Also a minor metabolite (10%) of codeine and can be seen in low concentrations (<2,000 ng/mL) with poppy seed ingestion. 45 Metabolite of morphine REFERENCE VALUE Cutoff: 100 46 Metabolite of heroin 47 Lortab, [place], Vicodin; Also a very minor metabolite of [...] oxycodone and several metabolites (noroxycodone, noroxymorphone, and oxphzofbvoq-7-eefc-glucuronide). Suspect use of oxycodone or possibly oxycodone and oxymorphone within the past three days. ADDITIONAL INFORMATION This test was developed and its performance characteristics determined by [facility] in a manner consistent with CLIA requirements. This test has not been cleared or approved by the U.S. Food and Drug Administration. Test Performed by: [facility] [address] [place] [address] 76 Normal Range 180 to 914 Indeterminate [...] Procedures Date CPT Code Description Status 02/18/2018 01717 Injection,Anesthetic Agent, Other Peripheral Nerve Completed Branch 01/20/2018 01313 Endoscopy Upper GI Biopsy Completed 10/14/2017 26334 Short Leg Cast Completed 10/06/2017 69865 Short Leg Cast Completed 10/01/2017 08191 Dislocation Tarsometatarsal JT W/Wo Fixation Open TX Completed 10/01/2017 48748 Dislocation Tarsometatarsal JT W/Wo Fixation Open TX Completed 10/01/2017 76136 Dislocation Tarsometatarsal JT W/Wo Fixation Open TX Completed 10/01/2017 42953 Dislocation Tarsometatarsal JT W/Wo Fixation Open TX Completed 10/01/2017 80030 Open TX Metatarsal FX,Incl Intl Fixation When Performed Completed 10/01/2017 75464 FX Metatarsal Care Completed 10/01/2017 64032 FX Metatarsal Care Completed 10/01/2017 50109 FX Tarsal Care Completed 10/01/2017 58507 FX Tarsal Care Completed 06/12/2017 13700 ECHO Transthorasic Realtime 2D W Doppler & Color Flow Completed Hosp 06/12/2017 84977 EKG, Interpretation Only Completed Encounters Type Date Location Provider CPT E/M Dx Office Visit 02/18/2018 [facility] Slava Pietro, 00175 G57.91 10:15a Of Jesu Mims Office Visit 02/03/2018 [place] [address] S93.324D 3:45p Of Jesu S92.334D S92.321A S92.234A S92.224A S92.344A M79.671 Office Visit 01/21/2018 10:35a [facility] Martin 13083 K85.20 ,julia Michael MD K29.70 F10.10 F17.210 Office Visit 01/20/2018 7:00a [facility] [place] [address] R10.13 K85.20 K21.9 Office Visit 01/20/2018 10:35a [facility] 78255 R10.13 Hospitalists MHarsh K85.20 F10.10 Z72.0 Office Visit 01/19/2018 10:34a [facility] Samuel Alexxtrish, 51255 K85.20 Hospitalists MHarsh F10.10 R10.13 Z72.0 Office Visit 01/18/2018 10:34a [facility] Samuel Alexxtrish, 69247 K85.20 Hospitalists Felicita R10.13 F10.10 Office Visit 01/17/2018 [facility] ArchibaldAnisha, 74124 R10.13 10:34a Assoc, [employer] Hospitalists K85.20 F10.10 Office Visit 01/16/2018 [facility] [place], 45113 R10.13 10:33a Assoc, [employer] Hospitalists K85.20 F10.10 Office Visit 01/15/2018 10:33a [facility] Assoc,pc Glenda Melton, 50435 R10.13 Hospitalists D.OCarmina K85.20 Office Visit 11/05/2017 11:20a [facility] Internal Medicine Malina Blount, N.P. 36340 Z00.00 - Abigail F33.9 J45.20 F17.210 N39.0 K21.9 S93.324D Office Visit 09/28/2017 3:45p [place] [address] S92.334A Of [facility] S92.344A S93.324A Office Visit 09/22/2017 2:00p [place] [address] S92.334A Of [facility] S92.344A Office Visit 09/10/2017 9:00a [facility] Internal Medicine Malina Blount, N.P. 62474 F33.9 - [place] G89.4 Office Visit 07/29/2017 9:50a [facility] Internal Medicine Anastasia Cadet, 68865 M79.644 - Noelle Mims Z79.899 Office Visit 06/25/2017 9:00a [facility] [place] [address] J18.9 [place] M54.9 R79.9 R10.9 Office Visit 06/24/2017 10:14a [facility] Assoc,pc Norma Eller N.P. 13167 K86.1 Hospitalists Office Visit 06/13/2017 7:16a [facility] Norma Eller N.P. 33513 J18.9 Hospitalists J45.20 Office Visit 06/12/2017 10:34a Pulmonology [place] [address] R06.02 Services Of [facility] N20.1 R00.0 R10.12 Office Visit 06/03/2017 11:20a [facility] Internal Medicine Mitesh Kimball, 59070 R07.89 - Noelle Mims Office Visit 04/13/2017 4:00p [facility] Internal Medicine Malina Blount, N.P. 07815 K86.0 - [place] M54.5 Office Visit 03/26/2017 10:40a [facility] Internal Medicine Malina Blount, N.P. 77619 M54.5 - [place] F41.1 K85.20 M79.2 Office Visit 03/08/2017 9:33a [facility] Larry, SLIDE MAKER 19532 K85.20 Assoc, Hospitalists M54.5 J45.20 G89.29 Office Visit 03/07/2017 9:33a [facility], [employer] MAKER 13386 K85.20 Assoc,pc Hospitalists M54.5 J45.20 G89.29 Office Visit 03/06/2017 9:[facility]a [facility], 63989 K85.20 Assoc, Hospitalists M.D. M54.5 J45.20 G89.29 Office Visit 02/27/2017 4:20p [facility] Internal Medicine Malina Blount, N.P. 88318 M54.5 - [place] J45.901 Office Visit 01/27/2017 2:20p [facility] Internal Medicine Malina Blount, N.P. 48004 R11.2 - [place] M54.5 F41.1 G47.00 B35.3 Office Visit 12/24/2016 3:00p [facility] Internal Medicine Malina Blount, N.P. 00661 K85.90 - [place] R11.2 M54.5 Office Visit 12/10/2016 4:00p [facility] Internal Medicine Malina Blount N.P. 47399 J18.9 - [place] K85.90 R11.2 Office Visit 11/22/2016 8:29a [facility] Chasidy Ivy, 35102 J18.9 Hospitalists MCarminaDCarmina K85.90 Office Visit 11/21/2016 8:29a [facility] Chasidy Grigsbyhn, 35841 J18.9 Hospitalists MCarminaDCarmina M54.5 K85.90 J45.20 Office Visit 11/20/2016 8:28a [facility] Barbara Lopezima, 93423 J18.9 Hospitalists M.DCarmina K85.90 Office Visit 11/19/2016 8:27a [facility] Barbara Luis Manuel, 31506 J18.9 Hospitalists MHarsh M54.5 K85.90 Office Visit 11/18/2016 8:26a [facility] [place], [address] J18.9 Assoc, Hospitalists MHarsh M54.5 K85.90 J45.20 Office Visit 11/15/2016 10:39a [facility] Yves Mindimiguel angel, 62539 K85.20 Assoc,pc Hospitalists Felicita N30.00 M54.5 F10.231 Office Visit 11/14/2016 2:34p [facility],julia Garner 20497 K85.20 Hospitalists Philip Dalton Office Visit 11/13/2016 2:33p [facility],julia Garner 73917 K85.20 Hospitalists Philip Dalton N30.00 F10.231 Office Visit 11/12/2016 2:32p [facility],julia Garner 60077 K85.20 Hospitalists Philip Dalton F10.231 Office Visit 11/12/2016 10:38a [facility] Samuel Finley, 82373 K85.20 Hospitalists Felicita M54.5 F10.231 Office Visit 11/11/2016 10:38a [facility] Assoc,pc Samuel Finley, 09191 K85.20 Hospitalists Felicita M54.5 F10.10 Office Visit 11/10/2016 10:35a [facility] Navin Hawthorne, 27422 K85.20 Assoc,pc Hospitalists N.PCarmina M54.5 F10.10 Office Visit 05/05/2013 10:00a [facility], 19374 354.0 M.ACarmina Mims 727.42 Plan of Care Future Appointment(s):03/23/2018 10:00 am - Slava Westbrook M.D. at [facility].ACarmina03/12/2018 - Malina Blount NGladysR03.0 Elevated blood-pressure reading, w/o diagnosis of htnComments:Your blood pressure is normal today. 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 Your arm may be a little sore for a few days.
--- OUTSIDE RECORDS SUMMARY | 2018-03-28 21:22 | XMS REPORT ---
:1980 External Reference #:[id number] Author Organization [facility] Address [address] [place] [address] [place] [address] Phone [phone] Care Team Providers Name Role Phone Marc Ramey MD Primary Care Physician Unavailable Payers Type Date Identification Numbers Payment Provider Subscriber Commercial Policy Number: [id number] [employer] Medicaid Abyb Carlton PayID: [id number] [address] [place] [id number] Advance Directives Type Date Description Status Comment [...] 01/16/2018 Alcohol abuse, uncomplicated Janice Arango, Active DIRECTOR OF RETAIL Onset: 01/19/2018 Tobacco use Samuel Finley M.D. [...] Use Currently consumes alcohol Drinks when watching [employer] races once weekly. Recreational Drug Use Denies [...] Form Strength Qnty SIG Indications Ordering Provider Todd Swigal 11/05 Active Misc 3" 1unit use this to S93.324D Malina Wheels/ s ambulate Varn, N.P. Adjustment Holes/3" With Seat Hydroxyzine 01/27 Active Capsules 25mg 30cap one by F41.1 Malina Pamoate s mouth every Varn, N.P. 8 hours as needed for anxiety Ondansetron 12/24 Active Tablets 4mg 20tab 1 tablet R11.2 Malina /2016 Dispers s under Varn, N.P. tongue every 8 hours as needed nausea Seroquel Active Tablets 25mg 30tab take 1 R11.2 Malina /0000 s tablet by Varn, N.P. mouth at bedtime Cyclobenzaprine Active Tablets 5mg 30tab take one Malina HCL /0000 s tablet by Varn, N.P. mouth every 8 hours prn. may take a second tablet if first not effetive. Nicotine Active Patches 21mg/24HR Apply 1 Unknown / 24HR Patch Transdermal ly Every Day AT 800Am Sucralfate Active Tablets 1gm Take 1 Unknown /0000 Tablet By Mouth Two Times Daily Chlordiazepoxide Active Capsules 25mg Take 1 Unknown HCL /0000 Capsule By Mouth Three Times Daily Maximum Daily Dose Of 3 Caps Gabapentin Active Capsules 300mg 1 by mouth Unknown /0000 three times a day Folic Acid Active Tablets 1mg 1 by mouth Unknown / every day Benzocaine/Mentho Active Unknown l Juan /0000 Melatonin ER Active Tablets 3mg 1 tab by Unknown ER mouth at bedtime Nicotine Tartrate Active Powder 10mg Unknown / inhaled every 2 hours as needed for cravings Omeprazole Active Capsules 40mg [address] every day Thiamine HCL Active Tablets 100mg 1 by mouth Unknown every day Baclofen [...] twice daily - for 10 days 06/25 ([facility] [place]) Pulmicort 03/11 Hx Aerosol 180mcg/Ac 1unit 2 puffs t s twice daily Varn, N.P. - 08/18 Metaxalone 02/27 Hx Tablets 800mg 30tab take 1 M54. s tablet 3 Varn, N.P. - times a day 06/02 as Oxycodone HCL 02/27 Hx Tablets 5mg 20tab [...] 12/24 Hx Patches 1.3% 60uni apply 1 ts patch twice Varn, N.P. - a day 06/02 Gabapentin 12/24 Hx Capsules 300mg 270ca take 3 ps capsules by Varn, N.P. - mouth [...] - 8 hours as 02/27 needed pain /2017 Oxycodone HCL Hx Tablets 10mg 1 po q 4 Unknown /0000 hrs prn - pain MDD 6 03/29 tabs ([facility] /2016 [place] summary) Omeprazole Hx Capsules 40mg 1 by mouth Unknown /0000 DR every day - ([facility] [place] 06/24 summary) Ibu-200 Hx Tablets 200mg 2 tab as Unknown /0000 needed. - 01/25 Oxycodone HCL Hx Tablets 5mg 30tab 1 tab po Casey /0000 s q4-6 hours Aimee, - prn 01/26 Aspirin Ec Hx Tablets 325mg take 1 tab Unknown /0000 DR by mouth - every day x 12/19 14 days. /2017 with food. Methadone HCL Hx Tablets 10mg Take 1 Unknown /0000 Tablet By - Mouth Three 01/18 Times Daily /2017 Maximum Daily Dose Of 3 Per D Medications Administered in Office Medication Date Status Form Strength Qnty SIG Indications Ordering Provider Ozzy Administered Injection Slava 40MG Bashir Westbrook M.D. Immunizations CPT Code Status Date Vaccine Lot # [id number] Given 03/27/2014 Tdap - Tetanus/Diptheria/Acellular Pertussis 27741 Given 06/26/2011 Influenza Virus Vaccine, Quadrivalent, Split, Preservative Free 25522 Given 07/31/2009 Influenza Virus Vaccine, Quadrivalent, Split, Preservative Free 63008 Given 07/31/2009 Influenza Virus Vaccine, Quadrivalent, Split, Preservative Free 68554 Given 07/31/2009 Influenza Virus Vaccine, Quadrivalent, Split, Preservative Free 01999 Given 07/31/2009 Influenza Virus Vaccine, Quadrivalent, Split, Preservative Free 24908 Given 07/31/2009 Influenza Virus Vaccine, Quadrivalent, Split, Preservative Free 72278 Given 07/31/2009 Influenza Virus Vaccine, Quadrivalent, Split, Preservative Free 95949 Given 06/25/2007 Influenza Virus Vaccine, Quadrivalent, Split, Preservative Free 99443 Given 06/25/2007 Influenza Virus Vaccine, Quadrivalent, Split, Preservative Free 52958 Given 06/25/2007 Influenza Virus Vaccine, Quadrivalent, Split, Preservative Free 29483 Given 06/25/2007 Influenza Virus 3Yrs & Over 30794 Given 07/08/2004 Tetanus And Diptheria (Td) For Adult Use Preservative Free 24477 Given 07/08/2004 Measles Mumps And Rubella MMR Vital Signs Date Vital Result Comment 03/04/2018 Height 61 inches 5'1" Heart Rate [...] Color Yellow Urine Appearance Cloudy Urine Specific Pierce 1.018 1.010-1.030 Urine pH 6.0 5-9 Urine [...] 3 Sensitivities Ua Routine 11/05/2017 Ua Specific Pierce 1010 Ua PH 6 Ua Color brown Ua Appera cloudy Ua WBC ++ Ua Protein + Ua Glucose ++ Ua Ketones neg. Ua Bilirubin neg. Ua Urobilinogen neg. Ua Nitrite neg. Ua Occult Blood about 250 Urine Culture And Sensitivities 11/05/2017 Urine Culture SEE RESULT BELOW 4 Urinalysis Profile 09/04/2017 Urine Color Yellow Urine Appearance Cloudy Urine Specific Pierce 1.021 1.010-1.030 Urine pH 6.0 5-9 Urine [...] Color Straw Urine Appearance Cloudy Urine Specific Pierce 1.002 Low 1.010-1.030 Urine pH 6.0 5-9 [...] Urine Glucose TNP Negative 30 Urine Specific Pierce 1.005 Low 1.010-1.030 Urine White Blood Cell [...] 50 40 Creatinine, Urine 122.2 mg/dL Specific Pierce 1.004 pH 7.4 Oxidants Negative 41 Adulterants Comment Normal Codeine, Ur Not Detected ng/mL Cutoff: 25 42 Jkcalih-1-tnbv-glucuronide, Ur Not Detected ng/mL 43 Morphine, Ur Not Detected ng/mL Cutoff: 25 44 Rubkkfbz-3-wyos-glucuronide, U Not Detected ng/mL 45 6-monoacetylmorphine, Ur Not Detected ng/mL Cutoff: 25 46 Hydrocodone, Ur Not Detected ng/mL Cutoff: 25 47 Norhydrocodone, Ur Not Detected ng/mL Cutoff: 25 48 Dihydrocodeine, Ur Not Detected ng/mL Cutoff: 25 49 Hydromorphone, Ur Not Detected ng/mL Cutoff: 25 50 Jfgowjmbgwmwb4qktaotzijxuuoaf Not Detected ng/mL 51 Oxycodone, Ur Present ng/mL Cutoff: 25 52 Noroxycodone, Ur Present ng/mL Cutoff: 25 53 Oxymorphone, Ur Not Detected ng/mL Cutoff: 25 54 Aigcnyshstm-6-usnc-glucuronide Present ng/mL 55 Noroxymorphone, Ur Present ng/mL Cutoff: 25 56 Fentanyl, Ur Not Detected ng/mL Cutoff: 2 57 Norfentanyl, Ur Not Detected ng/mL Cutoff: 2 58 Meperidine, Ur Not Detected ng/mL Cutoff: 25 59 Normeperidine, Ur Not Detected ng/mL Cutoff: 25 60 Naloxone, Ur Not Detected ng/mL Cutoff: 25 61 Oezdobsn-7-sdqp-glucuronide, U Not Detected ng/mL 62 Methadone, Ur [...] Ur Not Detected ng/mL Cutoff: 50 70 Liegqhsqiy-eyvy-qcgwshcdxij, U Not Detected ng/mL 71 Buprenorphine, Ur [...] [address]: Chasidy Ivy MD Acct: [id number] Unit: [id number] AGE: 37 Location: [place] [address] Re01/15/18 SEX: F Status: ADM IN SPEC: [id number] EH: 01/14/[address] [facility] [address]: Larry Ricks MD REQ: [id number] RECD: 01/14/18 STATUS: LOIDA MCKNIGHT DR: Malina Blount DIRECTOR OF RETAIL _ SOURCE: URINE SPDESC: ORDERED: Urine Culture Procedure Result Reported Site Urine Culture Final 01/16/18- 1141 ML No growth of clinically significant organisms * ML - Main Lab . END OF REPORT DEPARTMENT OF PATHOLOGY, [address] [place] [address] Francisco Marques M.D. Director [facility] # [id number] 4 SEE RESULT BELOW Name: ABBY CARLTON : [address]: Malina Blount NP Acct: [id number] Unit: [id number] AGE: 37 Location: [facility] Re11/05/17 SEX: F Status: REG REF SPEC: [id number] EH: 11/05/17-[address]: Malina Blount NP REQ: [id number] RECD: 11/05/17 STATUS: COMP _ SOURCE: URINE [facility]: ORDERED: Urine Culture COMMENTS: [id number] Urine Source: Clean Catch Procedure Result Reported Site Urine Culture Final 11/07/17- 0843 ML Organism 1 ESCHERICHIA COLI [place] Count >100,000 (Many) CFU/ML 1. ESCHERICHIA COLI [...] . END OF REPORT DEPARTMENT OF PATHOLOGY, [address] [place] [address] Francisco Marques M.D. Director [facility] # [id number] 5 SEE RESULT BELOW Name: ABBY CARLTON : [address]: Jose Lorenzo MD Acct: [id number] Unit: [id number] AGE: 37 Location: ED Re09/04/17 SEX: F Status: DEP ER SPEC: [id number] EH: 09/04/[address]: Lavern CRUZ REQ: [id number] RECD: 09/04/17 STATUS: LOIDA MCKNIGHT DR: Leila Blount DIRECTOR OF RETAIL _ SOURCE: URINE SPDESC: ORDERED: Urine Culture Procedure Result Reported Site Urine Culture Final 09/06/17- 1010 ML Mixed iban; possible contamination. Suggest resubmission. * ML - Main Lab . END OF REPORT DEPARTMENT OF PATHOLOGY, [address] [place] [address] Francisco Marques M.D. Director [facility] # [id number] 6 Because ethnic data is not always [...] levels of up to 20 mIU/mL 9 [facility] Severe Sepsis and Septic Shock Management Bundle [...] Acute inflammation: >10.00 21 Test Performed by: [address] [address] 22 Unable to evaluate urinalysis dipstick results due to interfering color. Notified [id number] 1835 06/08/17. 23 Unable to evaluate urinalysis dipstick results due to interfering color. Notified [id number] 1835 06/08/17. 24 Unable to evaluate urinalysis dipstick results due to interfering color. Notified [id number] 1835 06/08/17. 25 Unable to evaluate urinalysis dipstick results due to interfering color. Notified [id number] 1835 06/08/17. 26 Unable to evaluate urinalysis dipstick results due to interfering color. Notified [id number] 1835 06/08/17. 27 Unable to evaluate urinalysis dipstick results due to interfering color. Notified [id number] 1835 06/08/17. 28 Unable to evaluate urinalysis dipstick results due to interfering color. Notified [id number] 1835 06/08/17. 29 Unable to evaluate urinalysis dipstick results due to interfering color. Notified [id number] 1835 06/08/17. 30 Unable to evaluate urinalysis dipstick results due to interfering color. Notified [id number] 1835 06/08/17. 31 SEE RESULT BELOW Name: ABBY CARLTON : [address]: Jose Lorenzo MD Acct: [id number] Unit: [id number] AGE: 36 Location: ED Re06/08/17 SEX: F Status: DEP ER SPEC: [id number] EH: 06/08/[address]: Lavern CRUZ REQ: [id number] RECD: 06/08/17 STATUS: LOIDA MCKNIGHT DR: [facility] Malina Blount DIRECTOR OF RETAIL _ SOURCE: URINE SPDESC: ORDERED: Urine Culture Procedure Result Reported Site Urine Culture Final 06/10/17- 0815 ML No growth of clinically significant organisms * ML - [facility] ([facility]) . END OF REPORT * ML=Testing performed at Main Lab DEPARTMENT OF PATHOLOGY, [address] [place] [address] Francisco Marques M.D. Director [facility] # [id number] 32 Because ethnic data is not always [...] of codeine REFERENCE VALUE Cutoff: 100 44 Avinza, Coco, MS Contin; Also a minor metabolite (10%) of codeine and can be seen in low concentrations (<2,000 ng/mL) with poppy seed ingestion. 45 Metabolite of morphine REFERENCE VALUE Cutoff: 100 46 Metabolite of heroin 47 Lortab, Maskell, Vicodin; Also a very minor metabolite of [...] oxycodone and several metabolites (noroxycodone, noroxymorphone, and dbdlwwcxbpc-8-omlh-glucuronide). Suspect use of oxycodone or possibly oxycodone and oxymorphone within the past three days. ADDITIONAL INFORMATION This test was developed and its performance characteristics determined by [facility] in a manner consistent with CLIA requirements. This test has not been cleared or approved by the U.S. Food and Drug Administration. Test Performed by: [facility] [address] [place] [address] 76 Normal Range 180 to 914 Indeterminate [...] Procedures Date CPT Code Description Status 02/18/2018 12299 Injection,Anesthetic Agent, Other Peripheral Nerve Completed Branch 01/20/2018 12704 Endoscopy Upper GI Biopsy Completed 10/14/2017 76187 Short Leg Cast Completed 10/06/2017 96733 Short Leg Cast Completed 10/01/2017 12450 Dislocation Tarsometatarsal JT W/Wo Fixation Open TX Completed 10/01/2017 90454 Dislocation Tarsometatarsal JT W/Wo Fixation Open TX Completed 10/01/2017 25171 Dislocation Tarsometatarsal JT W/Wo Fixation Open TX Completed 10/01/2017 09045 Dislocation Tarsometatarsal JT W/Wo Fixation Open TX Completed 10/01/2017 60808 Open TX Metatarsal FX,Incl Intl Fixation When Performed Completed 10/01/2017 22681 FX Metatarsal Care Completed 10/01/2017 31134 FX Metatarsal Care Completed 10/01/2017 39597 FX Tarsal Care Completed 10/01/2017 87967 FX Tarsal Care Completed 06/12/2017 51225 ECHO Transthorasic Realtime 2D W Doppler & Color Flow Completed Hosp 06/12/2017 70620 EKG, Interpretation Only Completed Encounters Type Date Location Provider CPT E/M Dx Office Visit 02/03/2018 [place] [address] S93.324D 3:45p Of C.M.A. S92.334D S92.321A S92.234A S92.224A S92.344A M79.671 Office Visit 01/21/2018 10:35a [facility] Edmundo Martin 48295 K85.20 Assoc, Hospitalists MD Fernanda K29.70 F10.10 F17.210 Office Visit 01/20/2018 7:00a [facility] [place] [address] R10.13 K85.20 K21.9 Office Visit 01/20/2018 [facility] Finley 94217 R10.13 Hospitalists Felicita K85.20 F10.10 Z72.0 Office Visit 01/19/2018 10:34a [facility] arte[facility] 64786 K85.20 Hospitalists Felicita F10.10 R10.13 Z72.0 Office Visit 01/18/2018 10:34a [facility] julia Denson 40003 K85.20 Hospitalists Felicita R10.13 F10.10 Office Visit 01/17/2018 [facility]ango 68872 R10.13 10:34a [facility] K85.20 F10.10 Office Visit 01/16/2018 [facility] Janice Arango, 29147 R10.13 10:33a Assoc, DIRECTOR OF RETAIL Hospitalists K85.20 F10.10 Office Visit 01/15/2018 10:33a [facility] Assoc, Glenda Melton, 74371 R10.13 Hospitalists Philip K85.20 Office Visit 11/05/2017 11:20a [facility] Internal Medicine Malina Blount, N.P. 04015 Z00.00 - [place] F33.9 J45.20 F17.210 N39.0 K21.9 S93.324D Office Visit 09/28/2017 3:45p [place] [address] S92.334A Of C.M.ACarmina S92.344A S93.324A Office Visit 09/22/2017 2:00p [place] [address] S92.334A Of C.M.ACarmina S92.344A Office Visit 09/10/2017 9:00a [facility] Internal Medicine Malina Blount, N.P. 38345 F33.9 - [place] G89.4 Office Visit 07/29/2017 9:50a [facility] Internal Medicine Anastasia Cadet, 85472 M79.644 - Noelle Mims Z79.899 Office Visit 06/25/2017 9:00a [facility] [place] [address] J18.9 [place] M54.9 R79.9 R10.9 Office Visit 06/24/2017 10:14a [facility] Assoc, Norma Eller, N.P. 70947 K86.1 Hospitalists Office Visit 06/13/2017 7:16a [facility] Assoc, Norma Eller, N.P. 21017 J18.9 Hospitalists J45.20 Office Visit 06/12/2017 10:34a Pul[facility] [place] [address] R06.02 Services Of [facility] N20.1 R00.0 R10.12 Office Visit 06/03/2017 11:20a [facility] Internal Medicine Mitesh Kimball, 35608 R07.89 - Noelle Mims Office Visit 04/13/2017 4:00p [facility] Internal Medicine Malina Blount, N.P. 70278 K86.0 - [place] M54.5 Office Visit 03/26/2017 10:40a [facility] Internal Medicine Malina Blount, N.P. 03084 M54.5 - [place] F41.1 K85.20 M79.2 Office Visit 03/08/2017 9:33a [facility], DIRECTOR OF RETAIL 96194 K85.20 Assoc,pc Hospitalists M54.5 J45.20 G89.29 Office Visit 03/07/2017 9:33a [facility], DIRECTOR OF RETAIL 61114 K85.20 Assoc,pc Hospitalists M54.5 J45.20 G89.29 Office Visit 03/06/2017 [facility] [address] K85.20 Assoc,pc Hospitalists M.DCarmina M54.5 J45.20 G89.29 Office Visit 02/27/2017 4:20p [facility] Internal Medicine Malina Blount, N.P. 47912 M54.5 - [place] J45.901 Office Visit 01/27/2017 2:20p [facility] Internal Medicine Malina Blount, N.P. 08758 R11.2 - [place] M54.5 F41.1 G47.00 B35.3 Office Visit 12/24/2016 3:00p [facility] Internal Medicine Malina Blount, N.P. 69900 K85.90 - [place] R11.2 M54.5 Office Visit 12/10/2016 4:00p [facility] Internal Medicine Malina Blount, N.P. 79838 J18.9 - [place] K85.90 R11.2 Office Visit 11/22/2016 8:29a [facility] Chasidy Ivy, 59437 J18.9 Hospitalists M.Brant K85.90 Office Visit 11/21/2016 8:29a [facility] Chasidy Ivy, 60812 J18.9 Hospitalists M.Brant M54.5 K85.90 J45.20 Office Visit 11/20/2016 8:28a [facility] Barbara Issa, 39038 J18.9 Hospitalists Felicita K85.90 Office Visit 11/19/2016 8:27a [facility]pc Barbara Issa, 95244 J18.9 Hospitalists Felicita M54.5 K85.90 Office Visit 11/18/2016 8:26a [facility], [address] J18.9 Assoc, Hospitalists Felicita M54.5 K85.90 J45.20 Office Visit 11/15/2016 10:39a [facility] Yves Lee, 01488 K85.20 Assoc, Hospitalists Felicita N30.00 M54.5 F10.231 Office Visit 11/14/2016 2:34p [facility],pc Miller Garner 33886 K85.20 Hospitalists Philip Dalton Office Visit 11/13/2016 2:33p [facility] Miller Garner 36121 K85.20 Hospitalists Philip Dalton N30.00 F10.231 Office Visit 11/12/2016 2:32p [facility] Miller Garner 44009 K85.20 Hospitalists Philip Dalton F10.231 Office Visit 11/12/2016 10:38a [facility], Samuel Finley, 12516 K85.20 Hospitalists Felicita M54.5 F10.231 Office Visit 11/11/2016 10:38a [facility], Samuel Finley, 24946 K85.20 Hospitalists Felicita M54.5 F10.10 Office Visit 11/10/2016 10:35[facility] [place] [address] K85.20 Assoc, Hospitalists Ryland M54.5 F10.10 Office Visit 05/05/2013 10:00a [facility] Corinna Lares, 93762 354.0 C.M.A. Felicita 727.42 Plan of Care 03/04/2018 - Slava Westbrook M.D.G57.91 Unspecified mononeuropathy of right lower limbNew Xrays:CT Extremity Lower Right WoS92.334D Nondisp fx of 3rd metatarsal bone, r ft, 7thD
[2018-03-28] MEDS ORDERED: Ondansetron INJ* 2 MG/ML VIAL IV ONE (21:35)
[2018-03-28] MEDS ORDERED: Morphine VIAL* 10 MG/ML 1 ML VIAL IV ONE (21:35)
[2018-03-28] MEDS ORDERED: Morphine INJ* 4 MG/ML 1 ML SYRINGE (NEW SYRINGE VERSION) ONE (22:25)
[2018-03-28 22:26] LABS: ABS Basophils 0.1 10^3/ul (0-0.2); ABS Eosinophils 0.1 10^3/ul (0-0.6); ABS Lymphocytes 1.7 10^3/ul (1.0-4.8); ABS Monocytes 1.1 10^3/ul (0-0.8); ABS Neutrophils 8.6 10^3/ul (1.5-7.7); ABS Nucleated RBC 0 10^3/ul; Eosinophil % 0.9 % (0-6); Hematocrit 44 % (35-47); Hemoglobin 14.4 g/dl (12.0-16.0); Lymphocyte % 14.8 % (25-47); Mean Corpuscular HGB Conc 33 g/dl (31-36); Mean Corpuscular Hemoglobin 30 pg (27-31); Mean Corpuscular Volume 92 fL (80-97); Mean Platelet Volume 8.6 um3 (7.4-10.4); Nucleated Red Blood Cells % 0.1; Platelet Count 139 10^3/ul (150-450); Red Blood Count 4.75 10^6/ul (4.00-5.40); Red Cell Distribution Width 16 % (10.5-15); White Blood Count 11.6 10^3/ul (3.5-10.8)
[2018-03-28] MEDS ORDERED: Morphine INJ* 4 MG/ML 1 ML SYRINGE (NEW SYRINGE VERSION) IV ONE (22:28)
[2018-03-28 22:40] LABS: EGFR Non-African American 81.2 (>60)
[2018-03-28] MEDS ORDERED: HYDROmorphone INJ* 2 MG/ML CARPUJECT SYRINGE IV SLOW PU ONE ×2 (23:16)
[2018-03-28] MEDS ORDERED: HYDROmorphone INJ1* 1 MG/ML SYRINGE IV ONE (23:30)
[2018-03-28 23:46] LABS: INR 0.92 (0.77-1.02)
[2018-03-29] MEDS ORDERED: Iohexol 300* (CONTRAST) 10 ML SDV IV ONE (00:05)
--- NOTE | 2018-03-29 00:34 | RAD ---
EXAM: CT Abdomen and Pelvis With Intravenous Contrast CLINICAL HISTORY: 37 years old, female; Pain; Abdominal pain; Additional info: Diverticulitis TECHNIQUE: Axial computed tomography images of the abdomen and pelvis with intravenous contrast. All CT scans at this facility use at least one of these dose optimization techniques: automated exposure control; mA and/or kV adjustment per patient size (includes targeted exams where dose is matched to clinical indication); or iterative reconstruction. Coronal and sagittal reformatted images were created and reviewed. CONTRAST: 72 mL of OMNI 300 administered intravenously. COMPARISON: No relevant prior studies available. FINDINGS: Lung bases: Unremarkable. No mass. No consolidation. ABDOMEN: Liver: There is mild hepatomegaly. Gallbladder and bile ducts: Unremarkable. No calcified stones. No ductal dilation. Pancreas: There may be mild peripancreatic fat stranding, cannot exclude mild acute pancreatitis. No ductal dilation. Spleen: Unremarkable. No splenomegaly. Adrenals: Unremarkable. No mass. Kidneys and ureters: Unremarkable. No solid mass. No hydronephrosis. Stomach and bowel: Unremarkable. No obstruction. No mucosal thickening. PELVIS: Appendix: The appendix is not visible. Bladder: Unremarkable. No mass. Reproductive: Unremarkable as visualized. ABDOMEN and PELVIS: Intraperitoneal space: There may be trace free fluid in the right adnexa, cannot exclude ovarian cyst rupture. No free air. Bones/joints: No acute fracture. No dislocation. Soft tissues: Unremarkable. Vasculature: Unremarkable. No abdominal aortic aneurysm. Lymph nodes: Unremarkable. No enlarged lymph nodes. IMPRESSION: 1. There may be mild peripancreatic fat stranding, cannot exclude mild acute pancreatitis. 2. There may be trace free fluid in the right adnexa, cannot exclude ovarian cyst rupture. 3. No evidence for diverticulosis or diverticulitis.
[2018-03-29 00:45] LABS: Urine Appearance Clear; Urine Blood 3+ (Negative); Urine Color Yellow; Urine Ketones 2+ (Negative); Urine Protein Negative (Negative); Urine Red Blood Cell Trace(0-2/hpf) (Absent); Urine Specific Gravity 1.039 (1.010-1.030); Urine Urobilinogen Negative (Negative); Urine White Blood Cell Trace(0-5/hpf) (Absent)
[2018-03-29] MEDS ORDERED: Morphine VIAL* 10 MG/ML 1 ML VIAL IV ONE (01:42)
--- NOTE | 2018-03-29 01:48 | HP ---
H&P (Free Text) History and Physical: PCP: Mora Blount NP Date/Time: 03/29/2018 0130 CC: abdominal pain HPI: Mrs Carlton is a 37YO female HX pancreatitis, alcohol abuse who reports onset of epigastric pain this AM ~0900 progressively getting worse throughout the day until ~2100 when she could no longer manage and decided to present for evaluation. She reports sweats with the worst of the pain, but no F/C, N/V, chest pain, SOB, cough, congestion, change in bowel/bladder, rash, or other issues. Work up reveals a lipase of [address] abd/pel showing acute pancreatitis. She states her last alcoholic drink was Wed and that she didn't finish it. PMedHx asthma chronic LBP alcohol abuse anxiety GERD Ambulatory Orders QUEtiapine TAB* [Seroquel 25 MG TAB*] 25 mg PO DAILY #5 tab 03/08/17 Melatonin 3 mg PO BEDTIME PRN 30 Days #30 tab 01/21/18 Nicotine Inhaler* 10 mg INH Q2H PRN #5 amp 01/21/18 Nicotine PATCH 21 MG/24 HR* 1 patch TRANSDERM DAILY@0800 30 Days #30 patch 01/21 Nicotine Patch Removal NOTE* 1 note FOLLOW UP 2100 misc 01/21/18 Omeprazole CAP* [Prilosec CAP* 20 MG] 40 mg PO DAILY@0600 30 Days #30 cap. Baclofen 10 mg PO TID 03/29/18 Gabapentin CAP(*) [Neurontin 300 CAP(*)] 900 mg PO TID 03/29/18 hydrOXYzine HCL TAB* [Atarax 25 MG TAB*] 25 mg PO QID PRN 03/29/18 Allergies ciprofloxacin Allergy (Verified 03/28/18 21:09) Difficulty Breathing codeine Allergy (Verified 03/28/18 21:09) Hives acetaminophen Adverse Reaction (Verified 03/28/18 21:09) Difficulty Swallowing azithromycin Adverse Reaction (Verified 03/28/18 21:09) Vomiting cephalexin [From Keflex] Adverse Reaction (Verified 03/28/18 21:09) Palpitations lorazepam Adverse Reaction (Intermediate, Uncoded 03/28/18 21:09) Nausea Also possibly increased confusion. PSurgHx ORIF R foot 2nd metatarsal FX SocHx: 1/2PPD cigarettes, intermittent alcohol, denies recreational drugs; , lives with a boyfriend; full code status FamHx: negative for severely elevated triglycerides or pancreatitis, but she admits to having only limited contact with them ROS: as above, otherwise reviewed and all were negative vitals: Vital Signs Temp 36.0 C 03/28/18 21:01 Pulse 100 03/29/18 00:00 Resp 18 03/29/18 01:51 BP 113/86 03/28/18 23:53 Pulse Ox 96 03/29/18 00:00 Intake & Output 03/28/18 03/28/18 03/29/18 11:59 23:59 11:59 Intake Total 1000 Balance 1000 Weight 54.431 kg 54.431 kg Intake: IV Fluids 1000 Constitutional: NAD, normally developed, well-nourished white female HEENM: atraumatic; sclera/conjunctiva: anicteric/clear; hearing: clinically intact; oropharynx: clear, mucosa tacky Neck: soft tissue: supple; thyroid: normal Pulmonary: clear to auscultation bilaterally, good aeration, no accessory muscle use CV: RR/RR, normal S1S2, no carotid bruit, no jugular venous distention, 2+ B DP/ PT, no edema Abdominal: soft, non-distended, moderate tenderness epigastrum/LUQ with voluntary guarding but no rebound/rigidity, normoactive bowel sounds, no hepatosplenomegaly or masses, no costovertebral angle tenderness Musculoskeletal: general: grossly intact, chronically tender dorsum R foot Integumental: normal appearance and texture of exposed skin Psychiatric orientation: AA&O to PPS affect: calm mood: cooperative eye contact: fair content: seemingly reliable responses: timely insight: fair Testing: Lab Results 03/28/18 03/28/18 03/28/18 Range/Units 22:10 22:10 22:10 WBC 11.6 H (3.5-10.8) 10^3/ul RBC 4.75 (4.00-5.40) 10^6/ul Hgb 14.4 (12.0-16.0) g/dl Hct 44 (35-47) % MCV 92 (80-97) fL MCH 30 (27-31) pg MCHC 33 (31-36) g/dl RDW 16 H (10.5-15) % Plt Count 139 L (150-450) 10^3/ul MPV 8.6 (7.4-10.4) um3 Neut % (Auto) 74.2 (38-83) % Lymph % (Auto) 14.8 L (25-47) % [place] % (Auto) 9.5 H (0-7) % Eos % (Auto) 0.9 (0-6) % Baso % (Auto) 0.6 (0-2) % Absolute Neuts (auto) 8.6 H (1.5-7.7) 10^3/ul Absolute Lymphs (auto) 1.7 (1.0-4.8) 10^3/ul Absolute Monos (auto) 1.1 H (0-0.8) 10^3/ul Absolute Eos (auto) 0.1 (0-0.6) 10^3/ul Absolute Basos (auto) 0.1 (0-0.2) 10^3/ul Absolute Nucleated RBC 0 10^3/ul Nucleated RBC % 0.1 INR (Anticoag Therapy) (0.77-1.02) APTT (26.0-36.3) seconds Sodium 135 (135-145) mmol/L Potassium TNP Chloride 100 L (101-111) mmol/L Carbon Dioxide 23 (22-32) mmol/L Anion Gap 12 H (2-11) mmol/L BUN 10 (6-24) mg/dL Creatinine 0.80 (0.51-0.95) mg/dL Est GFR ( Amer) 98.2 (>60) Est GFR (Non-Af Amer) 81.2 (>60) BUN/Creatinine Ratio 12.5 (8-20) Glucose 84 (70-100) mg/dL Lactic Acid 1.0 (0.5-2.0) mmol/L Calcium 9.5 (8.6-10.3) mg/dL Total Bilirubin 1.00 (0.2-1.0) mg/dL AST TNP ALT 23 (7-52) U/L Alkaline Phosphatase 158 H (34-104) U/L Troponin I 0.14 H* (<0.04) ng/mL Total Protein 7.7 (6.4-8.9) g/dL Albumin 4.4 (3.2-5.2) g/dL Globulin 3.3 (2-4) g/dL Albumin/Globulin Ratio 1.3 (1-3) Lipase 1276 H (11.0-82.0) U/L Beta HCG, Quant < 0.60 mIU/mL Urine Color Urine Appearance Urine pH (5-9) Ur Specific [place] (1.010-1.030) Urine Protein (Negative) Urine Ketones (Negative) Urine Blood (Negative) Urine Nitrate (Negative) Urine Bilirubin (Negative) Urine Urobilinogen (Negative) Ur Leukocyte Esterase (Negative) Urine WBC (Auto) (Absent) Urine RBC (Auto) (Absent) Ur Squamous Epith Cells (Absent) Urine Bacteria (Absent) Urine Glucose (Negative) Serum Alcohol Pending 03/28/18 03/28/18 03/29/18 Range/Units 23:23 23:23 00:29 WBC (3.5-10.8) 10^3/ul RBC (4.00-5.40) 10^6/ul Hgb (12.0-16.0) g/dl Hct (35-47) % MCV (80-97) fL MCH (27-31) pg MCHC (31-36) g/dl RDW (10.5-15) % Plt Count (150-450) 10^3/ul MPV (7.4-10.4) um3 Neut % (Auto) (38-83) % Lymph % (Auto) (25-47) % [place] % (Auto) (0-7) % Eos % (Auto) (0-6) % Baso % (Auto) (0-2) % Absolute Neuts (auto) (1.5-7.7) 10^3/ul Absolute Lymphs (auto) (1.0-4.8) 10^3/ul Absolute Monos (auto) (0-0.8) 10^3/ul Absolute Eos (auto) (0-0.6) 10^3/ul Absolute Basos (auto) (0-0.2) 10^3/ul Absolute Nucleated RBC 10^3/ul Nucleated RBC % INR (Anticoag Therapy) 0.92 (0.77-1.02) APTT 27.5 (26.0-36.3) seconds Sodium (135-145) mmol/L Potassium 3.8 Chloride (101-111) mmol/L Carbon Dioxide (22-32) mmol/L Anion Gap (2-11) mmol/L BUN (6-24) mg/dL Creatinine (0.51-0.95) mg/dL Est GFR ( Amer) (>60) Est GFR (Non-Af Amer) (>60) BUN/Creatinine Ratio (8-20) Glucose (70-100) mg/dL Lactic Acid (0.5-2.0) mmol/L Calcium (8.6-10.3) mg/dL Total Bilirubin (0.2-1.0) mg/dL AST 39 ALT (7-52) U/L Alkaline Phosphatase (34-104) U/L Troponin I (<0.04) ng/mL Total Protein (6.4-8.9) g/dL Albumin (3.2-5.2) g/dL Globulin (2-4) g/dL Albumin/Globulin Ratio (1-3) Lipase (11.0-82.0) U/L Beta HCG, Quant mIU/mL Urine Color Yellow Urine Appearance Clear Urine pH 7.0 (5-9) Ur Specific [place] 1.039 H (1.010-1.030) Urine Protein Negative (Negative) Urine Ketones 2+ A (Negative) Urine Blood 3+ A (Negative) Urine Nitrate Negative (Negative) Urine Bilirubin Negative (Negative) Urine Urobilinogen Negative (Negative) Ur Leukocyte Esterase Negative (Negative) Urine WBC (Auto) Trace(0-5/hpf) (Absent) Urine RBC (Auto) Trace(0-2/hpf) (Absent) Ur Squamous Epith Cells Present A (Absent) Urine Bacteria Absent (Absent) Urine Glucose Negative (Negative) Serum Alcohol CT abd/pel W, personally reviewed: IMPRESSION: 1. There may be mild peripancreatic fat stranding, cannot exclude mild acute pancreatitis. 2. There may be trace free fluid in the right adnexa, cannot exclude ovarian cyst rupture. 3. No evidence for diverticulosis or diverticulitis. Impression: 37F HX pancreatitis, alcohol abuse presents with acute pancreatitis DIAGNOSIS & PLAN Primary acute pancreatitis : NPO : trend lipase : IVFs : pain control : supportive care Secondary asthma : PRN albuterol chronic LBP : pain control as above HX alcohol abuse : check blood alcohol anxiety : continue quetiapine & hydroxyzine GERD : continue omeprazole Admission Rational: Inpatient as is is not expected her pain will be adequately controlled in order to allow for discharge w/i 48h. DVTp: SCDs Code Status: full
[2018-03-29] MEDS ORDERED: Albuterol 2.5 MG/3 ML NEB.SOL* (0.083%) INH PRN (02:09)
[2018-03-29] MEDS ORDERED: Ondansetron ODT TAB* 4 MG PO PRN (02:13)
[2018-03-29] MEDS ORDERED: NS 0.9% 1000 ML* 1,000 ML IV SCH (02:15)
[2018-03-29] MEDS ORDERED: NS 0.9% 1000 ML* 1,000 ML IV ONE (02:15)
[2018-03-29] MEDS: HYDROmorphone INJ1* 1 MG/ML SYRINGE IV PRN ×8 (02:59→23:38)
[2018-03-29] MEDS ORDERED: Mouth Piece, Nicotine* 1 EACH CARTRIDGE INH ONE (03:00)
[2018-03-29 06:56] LABS: Hematocrit 39 % (35-47); Hemoglobin 12.9 g/dl (12.0-16.0); Mean Corpuscular HGB Conc 33 g/dl (31-36); Mean Corpuscular Hemoglobin 31 pg (27-31); Mean Corpuscular Volume 94 fL (80-97); Mean Platelet Volume 8.4 um3 (7.4-10.4); Platelet Count 117 10^3/ul (150-450); Red Blood Count 4.19 10^6/ul (4.00-5.40); Red Cell Distribution Width 16 % (10.5-15); White Blood Count 8.3 10^3/ul (3.5-10.8)
[2018-03-29] MEDS: Omeprazole CAP* 20 MG PO SCH (07:13)
[2018-03-29 07:16] LABS: EGFR Non-African American 113.1 (>60)
[2018-03-29] MEDS: D5W NS 0.9% 20Meq KCL 1000 ML* 1,000 ML IV SCH ×2 (07:55→20:02)
[2018-03-29] MEDS: Gabapentin CAP(*) 300 MG PO SCH ×3 (08:39→19:53)
[2018-03-29] MEDS: Nicotine PATCH 21 MG/24 HR* PATCH TRANSDERM SCH (08:40)
[2018-03-29] MEDS: Baclofen TAB* 10 MG PO SCH ×3 (08:40→19:53)
--- NOTE | 2018-03-29 11:12 | PN ---
Subjective Date of Service: 03/29/18 Interval History: Pt's pain is better controlled on increased dose of dilaudid. Pt stated that she drunk 8 beers 4-5 days ago. Objective Active Medications: Albuterol (Ventolin 2.5 Mg/3 Ml Neb.Apple*) 2.5 mg INH Q2H PRN PRN Reason: SOB/WHEEZING Baclofen (Lioresal Tab*) 10 mg PO TID [facility] Last Admin: 03/29/18 08:40 Dose: 10 mg Gabapentin (Neurontin Cap(*)) 900 mg PO TID [facility] Last Admin: 03/29/18 08:39 Dose: 900 mg Hydromorphone HCl (Dilaudid Inj1s*) 1 mg IV Q3H PRN PRN Reason: PAIN Last Admin: 03/29/18 10:40 Dose: 1 mg Hydroxyzine HCl (Atarax Tab*) 25 mg PO QID PRN PRN Reason: ANXIETY Potassium Chloride/Dextrose (D5w Ns 0.9% 20meq Kcl 1000 Ml*) 1,000 mls @ 100 mls/hr IV PER RATE [facility] Last Admin: 03/29/18 07:55 Dose: 100 mls/hr Nicotine (Nicotine Inhaler*) 10 mg INH Q2H PRN PRN Reason: CRAVING Nicotine (Nicotine Patch 21 Mg/24 Hr*) 1 patch TRANSDERM DAILY@0800 [facility] Last Admin: 03/29/18 08:40 Dose: 1 patch Omeprazole (Prilosec Cap*) 40 mg PO DAILY@0600 [facility] Last Admin: 03/29/18 07:13 Dose: 40 mg Ondansetron HCl (Zofran Odt Tab*) 4 mg PO Q6H PRN PRN Reason: n/v Pharmacy Profile Note (Nicotine Patch Removal Note*) 1 note PATCH OFF 2100 [facility] Vital Signs - 8 hr 03/29/18 03/29/18 03/29/18 06:29 07:22 08:31 Temperature 98.1 F Pulse Rate 87 Respiratory 16 18 24 Rate Blood Pressure 107/70 (mmHg) O2 Sat by Pulse 94 Oximetry 03/29/18 03/29/18 08:39 10:40 Temperature Pulse Rate Respiratory 24 18 Rate Blood Pressure (mmHg) O2 Sat by Pulse Oximetry Oxygen Devices in Use Now: None Appearance: 37 yo f in nAD, aAOx3 Eyes: No Scleral Icterus, PERRLA Ears/Nose/Mouth/Throat: NL Teeth, Lips, Gums, Mucous Membranes Moist Neck: NL Appearance and Movements; NL JVP, Trachea Midline Respiratory: Symmetrical Chest Expansion and Respiratory Effort, Clear to Auscultation Cardiovascular: NL Sounds; No Murmurs; No JVD, RRR Abdominal: - - epigastric and LLQ abd tenderness, no rebound, no guarding , BS+ Lymphatic: No Cervical Adenopathy Extremities: No Edema, No Clubbing, Cyanosis Skin: No Rash or Ulcers, No Nodules or Sclerosis Neurological: Alert and Oriented x 3, NL Muscle Strength and Tone Result Diagrams: 03/29/18 06:36 03/29/18 06:36 Assess/Plan/Problems-Billing Assessment: 37 yo female with PMH of opioid use and chronic pain presents with recurrent alcohol induced pancreatitis - Patient Problems (1) Acute pancreatitis Comment: - Recurrent alcoholic pancreatitis - Lipase 1200 on admision, down to close to 400 today -spoke with py that diet will be advanced if pain improves. CT shows mild pancreatitis (2) Hypoglycemia Comment: - Suspect secondary to being NPO - Check glucose Q6H, started D5 infusion (3) Alcohol abuse Comment: Stopped quetiapine (can be associated with pancreatitis), cont gabapentin monitor for symptoms Allergic to ativan (4) Chronic back pain Comment: - Continue gabapentin and baclofen (5) DVT prophylaxis Comment: - Encourage ambulation Status and Disposition: Inpatient
--- NOTE | 2018-03-29 14:59 | ECHO ---
Patient: RAYMOND OLMEDO [facility] Rec#: [id number] : 1980 Date: 03/29/2018 Age: 37y Height: 155 cm / 61.0 in Weight: 56 kg / 123.4 lbs Sex: F BSA: 1.54 Room#: [facility] Admit Date#: 03/29/2018 Type: Inpatient Referring: Chasidy Ivy MD Reading: Buddy Munroe MD Casino Controller: Phyllis Leonardo,RDCS,RDMS CC: Malina Blount NP Transthoracic Echocardiogram Indication: Elevated TROP BP: 107/70 HR: 98 Rhythm: NSR Findings History: ETOH, pancreatitis Technical Comments: The study quality is good. Left Ventricle: The left ventricular chamber size is normal. There is no left ventricular hypertrophy. Global left ventricular wall motion and contractility are within normal limits. There is normal left ventricular systolic function. The estimated ejection fraction is 55-60%. Normal left ventricular diastolic filling is observed. Left Atrium: The left atrial chamber size is normal. Right Ventricle: The right ventricular chamber size and systolic function are within normal limits. Right Atrium: The right atrial cavity size is normal. Aortic Valve: The aortic valve is trileaflet. Systolic excursion of the aortic valve is normal. There is trace to mild aortic regurgitation. There is no evidence of aortic stenosis. Mitral Valve: The mitral valve leaflets are mildly thickened. There is a trace of mitral regurgitation. There is no evidence of mitral stenosis. Tricuspid Valve: The tricuspid valve leaflets are normal. There is mild tricuspid regurgitation. The tricuspid regurgitant jet is directed toward the septum. No pulmonary hypertension is noted. Pulmonic Valve: There is no evidence of pulmonic valve thickening. There is a trace pulmonic regurgitation. Pericardium: There is no significant pericardial effusion. Aorta: The ascending aorta is not well visualized. There is no dilatation of the aortic arch. The aortic root is normal in size. Pulmonary Artery: The main pulmonary artery is not well visualized. Venous: The inferior vena cava appears normal in size. There is less than 50% respiratory change in the inferior vena cava dimension. Summary: There are no significant changes when compared to the previous study done on 06/12/17 Conclusions Global left ventricular wall motion and contractility are within normal limits. There is normal left ventricular systolic function. The estimated ejection fraction is 55-60%. There is trace to mild aortic regurgitation. There is a trace of mitral regurgitation. There is mild tricuspid regurgitation. The tricuspid regurgitant jet is directed toward the septum. No pulmonary hypertension is noted. There is no significant pericardial effusion. Measurements Name Value Normal Range RVIDd (AP) 2D 2.5 cm (0.9 - 2.6) RVDdMajor (2D) 2.7 cm (2.2 - 4.4) RAd ISD 4CH 3.9 cm (3.4 - 4.9) RA (A4C)W 2.9 cm (2.9 - 4.6) IVSd (2D) 0.9 cm (0.6 - 1) LVPWd (2D) 0.9 cm (0.6 - 1) LVIDd (2D) 3.9 cm (3.6 - 5.4) LVIDs (2D) 2.4 cm - LV FS (2D) 38 % (25 - 45) Aortic Annulus 2 cm (1.4 - 2.6) Ao root diameter (2D) 2.5 cm (2.1 - 3.5) Aortic arch 2.3 cm (1.8 - 3.4) LA dimension (AP) 2D 2.7 cm (2.3 - 3.8) LAd ISD 4CH 4.9 cm (2.9 - 5.3) LA ISD 4CH W 3.3 cm (2.5 - 4.5) Name Value Normal Range LA ESV BP (A/L) index 13.5 ml/m2 - Name Value Normal Range MV E-wave Vmax 0.5 m/sec - MV deceleration time 127 msec - MV A-wave Vmax 0.4 m/sec - MV E:A ratio 1.1 ratio - LV septal e' Vmax 0.09 m/sec - LV lateral e' Vmax 0.1 m/sec - LV E:e' septal ratio 6 ratio - LV E:e' lateral ratio 5 ratio - Name Value Normal Range AV Vmax 1.2 m/sec - AV VTI 21 cm - AV peak gradient 6 mmHg - AV mean gradient 3 mmHg - LVOT Vmax 0.8 m/sec - LVOT VTI 16 cm - LVOT peak gradient 2.6 mmHg - LVOT mean gradient 1 mmHg - MARSHA Vmax 0.9 m/sec - Name Value Normal Range TR Vmax 2.1 m/sec - TR peak gradient 18 mmHg - RAP 3 mmHg - RVSP 21 mmHg - IVC diameter 1.8 cm - Name Value Normal Range PV Vmax 0.7 m/sec - PV peak gradient 2 mmHg -
[2018-03-29] MEDS ORDERED: Melatonin 3 MG TAB PO PRN (20:00)
[2018-03-29] MEDS: Nicotine Patch Removal NOTE PATCH OFF SCH (21:00)
[2018-03-30] MEDS: HYDROmorphone INJ1* 1 MG/ML SYRINGE IV PRN ×3 (03:38→09:41)
[2018-03-30] MEDS: Omeprazole CAP* 20 MG PO SCH (05:31)
[2018-03-30 07:12] LABS: EGFR Non-African American 115.3 (>60)
[2018-03-30] MEDS: Nicotine PATCH 21 MG/24 HR* PATCH TRANSDERM SCH (07:57)
[2018-03-30] MEDS: Baclofen TAB* 10 MG PO SCH ×3 (07:58→22:09)
[2018-03-30] MEDS: Gabapentin CAP(*) 300 MG PO SCH ×3 (07:58→21:04)
[2018-03-30] MEDS ORDERED: oxyCODONE TAB* 5 MG TAB PO PRN ×2 (10:17→12:56)
[2018-03-30] MEDS ORDERED: Temazepam CAP* 15 MG PO PRN (10:23)
--- NOTE | 2018-03-30 10:23 | PN ---
Subjective Date of Service: 03/30/18 Interval History: Pt stated that her abd pain improved and "wants to eat". exhibits a lot of pain when palpated in abd , but during the eval sat up using her abdominal muscles without any discomfort noted or voiced Objective Active Medications: Albuterol (Ventolin 2.5 Mg/3 Ml Neb.Apple*) 2.5 mg INH Q2H PRN PRN Reason: SOB/WHEEZING Baclofen (Lioresal Tab*) 10 mg PO TID [facility] Last Admin: 03/30/18 07:58 Dose: 10 mg Gabapentin (Neurontin Cap(*)) 900 mg PO TID [facility] Last Admin: 03/30/18 07:58 Dose: 900 mg Hydromorphone HCl (Dilaudid Inj1s*) 1 mg IV Q3H PRN PRN Reason: PAIN Last Admin: 03/30/18 09:41 Dose: 1 mg Hydroxyzine HCl (Atarax Tab*) 25 mg PO QID PRN PRN Reason: ANXIETY Potassium Chloride/Dextrose (D5w Ns 0.9% 20meq Kcl 1000 Ml*) 1,000 mls @ 100 mls/hr IV PER RATE [facility] Last Admin: 03/29/18 20:02 Dose: 100 mls/hr Melatonin (Melatonin) 1 mg PO BEDTIME PRN PRN Reason: SLEEP Nicotine (Nicotine Inhaler*) 10 mg INH Q2H PRN PRN Reason: CRAVING Nicotine (Nicotine Patch 21 Mg/24 Hr*) 1 patch TRANSDERM DAILY@0800 [facility] Last Admin: 03/30/18 07:57 Dose: 1 patch Omeprazole (Prilosec Cap*) 40 mg PO DAILY@0600 [facility] Last Admin: 03/30/18 05:31 Dose: 40 mg Ondansetron HCl (Zofran Odt Tab*) 4 mg PO Q6H PRN PRN Reason: n/v Last Admin: 03/29/18 18:31 Dose: 4 mg Pharmacy Profile Note (Nicotine Patch Removal Note*) 1 note PATCH OFF 2100 [facility] Last Admin: 03/29/18 21:00 Dose: 1 note Vital Signs - 8 hr 03/30/18 03/30/18 03/30/18 03:38 05:39 06:41 Temperature Pulse Rate Respiratory 18 18 18 Rate Blood Pressure (mmHg) O2 Sat by Pulse Oximetry 10/08/1603/30/18 03/30/18 07:36 07:58 09:41 Temperature 97.8 F Pulse Rate 88 Respiratory 16 20 20 Rate Blood Pressure 99/71 (mmHg) O2 Sat by Pulse 98 Oximetry Oxygen Devices in Use Now: None Appearance: 37 yo F in nAD, aAOx3 Eyes: No Scleral Icterus, PERRLA Ears/Nose/Mouth/Throat: NL Teeth, Lips, Gums, Mucous Membranes Moist Neck: NL Appearance and Movements; NL JVP, Trachea Midline Respiratory: Symmetrical Chest Expansion and Respiratory Effort, Clear to Auscultation Cardiovascular: NL Sounds; No Murmurs; No JVD, RRR Abdominal: - - soft, mild epigastric tenderness, no rebound, no guarding, BS+ Lymphatic: No Cervical Adenopathy Extremities: No Edema Skin: No Nodules or Sclerosis Neurological: Alert and Oriented x 3, NL Muscle Strength and Tone Result Diagrams: 03/29/18 06:36 03/30/18 06:16 Microbiology and Other Data: Microbiology 03/29/18 00:29 Urine Culture - Final Urine Assess/Plan/Problems-Billing Assessment: 37 yo female with PMH of opioid use and chronic pain presents with recurrent alcohol induced pancreatitis - Patient Problems (1) Acute pancreatitis Comment: - Recurrent alcoholic pancreatitis - Lipase 1200 on admision, down to close to 200 today -spoke with pt that diet will be advanced today. D/c IV pain meds and place on PO (2) Hypoglycemia Comment: secondary to being NPO stop D5 infusion ,starting clear diet (3) Alcohol abuse Comment: Stopped quetiapine (can be associated with pancreatitis), cont gabapentin monitor for symptoms Allergic to ativan (4) Chronic back pain Comment: - Continue gabapentin and baclofen (5) DVT prophylaxis Comment: - Encourage ambulation Status and Disposition: Inpatient
[2018-03-30] MEDS ORDERED: NS 0.9% 1000 ML* 1,000 ML IV SCH (10:30)
[2018-03-30] MEDS: HYDROmorphone INJ1* 1 MG/ML SYRINGE IV SLOW PU PRN ×3 (13:53→21:00)
[2018-03-30] MEDS ORDERED: Pantoprazole IV* 40 MG IV SCH (14:00)
[2018-03-30] MEDS: D5LR 20 MEQ KCL 1000 ML BAG* 1,000 ML IV SCH (15:00)
[2018-03-30] MEDS: Nicotine Patch Removal NOTE PATCH OFF SCH (21:05)
[2018-03-30] MEDS: Nicotine Inhaler* 10 MG AMP INH PRN (21:12)
[2018-03-30] MEDS: hydrOXYzine HCL TAB* 25 MG PO PRN (22:09)
[2018-03-30] MEDS ORDERED: Melatonin 3 MG TAB PO ONE (23:02)
[2018-03-30] MEDS: Melatonin 3 MG TAB PO PRN (23:04)
[2018-03-31] MEDS: HYDROmorphone INJ1* 1 MG/ML SYRINGE IV SLOW PU PRN ×3 (00:52→09:02)
[2018-03-31] MEDS: D5LR 20 MEQ KCL 1000 ML BAG* 1,000 ML IV SCH (05:02)
[2018-03-31 07:51] LABS: EGFR Non-African American 133.4 (>60)
[2018-03-31] MEDS: Nicotine PATCH 21 MG/24 HR* PATCH TRANSDERM SCH (08:50)
[2018-03-31] MEDS: Baclofen TAB* 10 MG PO SCH ×3 (09:05→22:00)
[2018-03-31] MEDS: Gabapentin CAP(*) 300 MG PO SCH ×3 (09:05→20:47)
[2018-03-31] MEDS ORDERED: HYDROmorphone INJ1* 1 MG/ML SYRINGE IV SLOW PU PRN (10:23)
--- NOTE | 2018-03-31 11:04 | PN ---
Subjective Date of Service: 03/31/18 Interval History: Pt was crying from pain when taken off Dilaudid last night and was placed baqck on NPO at IV pain meds last night. Today once again pt requests to be started on a diet and PO pain meds. Pt is aware that PO pain meds are not as strong as IV Dilaudid and that she had problems with trying to get off opioid meds in the past. She "promised " that she can do it and agrees to be placed on oxycodone PO Objective Active Medications: Albuterol (Ventolin 2.5 Mg/3 Ml Neb.Apple*) 2.5 mg INH Q2H PRN PRN Reason: SOB/WHEEZING Baclofen (Lioresal Tab*) 10 mg PO TID [facility] Last Admin: 03/31/18 09:05 Dose: 10 mg Gabapentin (Neurontin Cap(*)) 900 mg PO TID [facility] Last Admin: 03/31/18 09:05 Dose: 900 mg Hydroxyzine HCl (Atarax Tab*) 25 mg PO QID PRN PRN Reason: ANXIETY Last Admin: 03/30/18 22:09 Dose: 25 mg Melatonin (Melatonin) 3 mg PO BEDTIME PRN PRN Reason: SLEEP Last Admin: 03/30/18 23:04 Dose: 3 mg Nicotine (Nicotine Inhaler*) 10 mg INH Q2H PRN PRN Reason: CRAVING Last Admin: 03/30/18 21:12 Dose: 10 mg Nicotine (Nicotine Patch 21 Mg/24 Hr*) 1 patch TRANSDERM DAILY@0800 [facility] Last Admin: 03/31/18 08:50 Dose: 1 patch Ondansetron HCl (Zofran Odt Tab*) 4 mg PO Q6H PRN PRN Reason: n/v Last Admin: 03/29/18 18:31 Dose: 4 mg Oxycodone HCl (Roxycodone Tab*) 15 mg PO Q4H PRN PRN Reason: PAIN Pharmacy Profile Note (Nicotine Patch Removal Note*) 1 note PATCH OFF 2100 [facility] Last Admin: 03/30/18 21:05 Dose: 1 note Temazepam (Restoril Cap*) 15 mg PO BEDTIME PRN PRN Reason: INSOMNIA Vital Signs - 8 hr 03/31/18 03/31/18 03/31/18 03:31 04:58 06:00 Pulse Rate 85 Respiratory 19 18 18 Rate Blood Pressure 123/74 (mmHg) O2 Sat by Pulse 100 Oximetry 03/31/18 03/31/18 03/31/18 08:00 09:02 09:05 Pulse Rate Respiratory 20 20 18 Rate Blood Pressure (mmHg) O2 Sat by Pulse Oximetry Oxygen Devices in Use Now: None Appearance: 37 yo F in nAD, aAOx3 Eyes: No Scleral Icterus, PERRLA Ears/Nose/Mouth/Throat: NL Teeth, Lips, Gums, Mucous Membranes Moist Neck: NL Appearance and Movements; NL JVP, Trachea Midline Respiratory: Symmetrical Chest Expansion and Respiratory Effort Cardiovascular: NL Sounds; No Murmurs; No JVD, RRR Abdominal: - - abd exam not consistent, intially pt moans in pain , then when distracted and talked during the exam exhibited no discomfort on abd palpation. BS+, no rebound, no guarding Lymphatic: No Cervical Adenopathy Extremities: No Edema Skin: No Nodules or Sclerosis Neurological: Alert and Oriented x 3, NL Muscle Strength and Tone Result Diagrams: 03/29/18 06:36 03/31/18 07:25 Microbiology and Other Data: Microbiology 03/29/18 00:29 Urine Culture - Final Urine Assess/Plan/Problems-Billing Assessment: 37 yo female with PMH of opioid use and chronic pain presents with recurrent alcohol induced pancreatitis - Patient Problems (1) Acute pancreatitis Comment: - Recurrent alcoholic pancreatitis - Lipase 1200 on admision, down to close to 120 today -spoke with pt that diet will be advanced today, again. D/c IV pain meds and place on PO Pt is known from previous hospital stay to have a hard time trying to be taken off narcotic pain meds. She has h/o chronic opiod use in the past. (2) Hypoglycemia Comment: secondary to being NPO stop D5 infusion ,starting clear diet advance as lesley (3) Alcohol abuse Comment: Stopped quetiapine (can be associated with pancreatitis), cont gabapentin monitor for symptoms Allergic to ativan (4) Chronic back pain Comment: - Continue gabapentin and baclofen (5) DVT prophylaxis Comment: - Encourage ambulation Status and Disposition: Inpatient
[2018-03-31] MEDS: oxyCODONE TAB* 5 MG TAB PO PRN ×3 (12:41→20:46)
[2018-03-31] MEDS: Nicotine Patch Removal NOTE PATCH OFF SCH (20:48)
[2018-03-31] MEDS: hydrOXYzine HCL TAB* 25 MG PO PRN (22:00)
[2018-03-31] MEDS: Nicotine Inhaler* 10 MG AMP INH PRN (22:31)
[2018-03-31] MEDS ORDERED: Mouth Piece, Nicotine* 1 EACH CARTRIDGE ONE (22:33)
[2018-04-01] MEDS: oxyCODONE TAB* 5 MG TAB PO PRN ×3 (00:39→08:46)
[2018-04-01] MEDS: Melatonin 3 MG TAB PO PRN (00:55)
[2018-04-01 03:59] VITALS: BP 140/92
[2018-04-01] MEDS: Nicotine Inhaler* 10 MG AMP INH PRN (05:01)
[2018-04-01 06:47] LABS: Hematocrit 36 % (35-47); Hemoglobin 11.8 g/dl (12.0-16.0); Mean Corpuscular HGB Conc 33 g/dl (31-36); Mean Corpuscular Hemoglobin 31 pg (27-31); Mean Corpuscular Volume 94 fL (80-97); Mean Platelet Volume 8.8 um3 (7.4-10.4); Platelet Count 178 10^3/ul (150-450); Red Blood Count 3.79 10^6/ul (4.00-5.40); Red Cell Distribution Width 17 % (10.5-15); White Blood Count 5.7 10^3/ul (3.5-10.8)
[2018-04-01 08:09] LABS: EGFR Non-African American 91.7 (>60)
[2018-04-01] MEDS: Baclofen TAB* 10 MG PO SCH (08:39)
[2018-04-01] MEDS: Gabapentin CAP(*) 300 MG PO SCH (08:41)
[2018-04-01] MEDS: Nicotine PATCH 21 MG/24 HR* PATCH TRANSDERM SCH (08:42)
--- NOTE | 2018-04-02 00:18 | DS ---
CC: Malina Blount NP * DISCHARGE SUMMARY: DATE OF ADMISSION: 03/29/18 DATE OF DISCHARGE: 04/01/18 PRIMARY CARE PROVIDER: Malina Blount NP PRINCIPAL DIAGNOSIS: Acute alcoholic pancreatitis. SECONDARY DIAGNOSES: 1. Asthma. 2. Chronic back pain. 3. Alcohol abuse. 4. Anxiety. DISCHARGE MEDICATIONS: 1. Hydroxyzine 25 mg p.o. 4 times daily p.r.n. anxiety. 2. Seroquel 25 mg p.o. daily. 3. Omeprazole 40 mg p.o. daily. 4. Nicotine patch 21 mg topically, on in the morning, off in the evening. 5. Nicotine inhaler 10 mg inhaled q.2 hours p.r.n. craving. 6. Melatonin 3 mg p.o. q.h.s. p.r.n. insomnia. 7. Gabapentin 900 mg p.o. t.i.d. 8. Baclofen 10 mg p.o. t.i.d. 9. Oxycodone 10 to 15 mg p.o. q.4 hours p.r.n. pain, dispensed 90 tablets. 10. Zofran ODT 4 mg p.o. q.6 hours p.r.n. nausea. HOSPITAL COURSE: Ms. Carlton is a 37-year-old female who has a history of alcohol abuse who had been admitted for alcoholic pancreatitis in the past who presented to the emergency room with complaints of epigastric pain that began at approximately 9 a.m. on the day prior to admission. She at approximately 9 p.m. could no longer manage and therefore, presented to the emergency room. The patient did ultimately admit to drinking approximately 8 beers on the Thursday prior to admission. Ultimately, it was felt the pancreatitis was likely secondary to alcohol use. The patient's Seroquel had been discontinued on admission; however, I am going to restart this as alcoholic pancreatitis seems more likely, especially given the recurrent nature which has been associated with drinking previously. The patient's pain is still persistent; however, generally much improved from admission. At this point, she is able to tolerate a regular diet and her pain is fairly well controlled with oxycodone 15 mg every 4 hours as needed. The patient has been instructed to monitor her pain and if it worsens with eating, get back her diet down to a clear full liquid diet. She then at that point can begin advancing her diet as tolerated. The patient has been given a prescription for Zofran for nausea and oxycodone 5 mg tablets to be taken 10 to 15 mg every 4 hours as needed for pain. Also, the patient was identified to have a troponin of 0.14. It was felt this likely represented demand ischemia. The patient underwent a transthoracic echocardiogram, which revealed a normal left ventricular wall motion and contractility as well as normal left ventricular systolic function. The EF was estimated to be 55% to 60%. No further workup was undertaken for the mildly elevated troponin. On the day of discharge, the patient is awake, alert and oriented, sitting up in bed, appearing to be in no acute distress. Her cardiac exam reveals a normal S1, S2 with regular rate and rhythm. Her lungs are clear. Her abdomen is soft and nondistended. She is minimally tender to palpation in the epigastrium. Her skin is warm and dry and without rashes. FOLLOWUP CONCERNS: The patient is being discharged home today, 04/01/18. ACTIVITY: Activity level as tolerated. DIET: Regular as tolerated. CONDITION ON DISCHARGE: Stable. The patient is to follow up with Malina Blount on 04/06/18 at 11 a.m. TIME SPENT: Thirty five minutes were spent discharging this patient. [id number]/[facility] #: [id number] LILI
== END 2018-04-01 11:15 | disposition home health service (06) | DRG 282 ==
LOC: ED 20:44 → MED 03-29 01:52
PROVIDERS: ADMIT Hospitalist; ATTEND Hospitalist
DX: K85.20 Alcohol induced acute pancreatitis without necrosis or infection (principal); I24.8 Other forms of acute ischemic heart disease; G89.29 Other chronic pain; M54.5 Low back pain; F10.10 Alcohol abuse, uncomplicated; J45.909 Unspecified asthma, uncomplicated; F41.9 Anxiety disorder, unspecified; E16.2 Hypoglycemia, unspecified; F17.210 Nicotine dependence, cigarettes, uncomplicated; K21.9 Gastro-esophageal reflux disease without esophagitis; Z88.1 Allergy status to other antibiotic agents; Z88.5 Allergy status to narcotic agent; Z88.6 Allergy status to analgesic agent; Z88.8 Allergy status to other drugs, medicaments and biological substances; Z87.442 Personal history of urinary calculi; Z80.49 Family history of malignant neoplasm of other genital organs; Z80.8 Family history of malignant neoplasm of other organs or systems
CPT/HCPCS: 36415; 74177; 80048; 80053; 80061; 80320; 81003; 81015; 83605; 83690; 84484; 84702; 85025; 85027; 85610; 85730; 87086; 93306; 99284; A9270-GY; G0480; J1170; J2270; J2405; Q9967

== ENCOUNTER 2018-04-12 09:09 | Day surgery (SDC) | payer OTHER ==
[2018-04-12] MEDS ORDERED: Clindamycin 900 MG/D5W BAG(*) 900 MG/50 ML BAG IVPB ONE (09:36)
[2018-04-12] MEDS ORDERED: Midazolam* 1 MG/ML 2 ML VIAL (2 MG) ONE (11:39)
[2018-04-12] MEDS ORDERED: fentaNYL* 50 MCG/ML 2 ML VIAL (100 MCG VIAL) ONE ×2 (11:39→14:05)
[2018-04-12] MEDS ORDERED: Lidocaine 2% PF * 5 ML VIAL ONE (13:02)
[2018-04-12] MEDS ORDERED: Propofol* 10 MG/ML 20 ML BTL IV PUSH ONE (13:06)
[2018-04-12] MEDS ORDERED: Ondansetron INJ* 2 MG/ML VIAL ONE (13:06)
[2018-04-12] MEDS ORDERED: Dexamethasone IV* 4 MG/ML 1 ML (4 MG) ONE (13:06)
[2018-04-12] MEDS ORDERED: Bupivacaine 0.5% SDV PF* 30ML VIAL ONE (13:10)
[2018-04-12] MEDS ORDERED: Ketorolac INJ* 30 MG/ML 1 ML VIAL ONE (14:12)
[2018-04-12] MEDS ORDERED: Naloxone* 0.4 MG/ML 1 ML VIAL IV PRN (14:13)
[2018-04-12] MEDS ORDERED: Ketorolac INJ* 30 MG/ML 1 ML VIAL IV PRN (14:13)
[2018-04-12] MEDS ORDERED: HYDROmorphone INJ1* 1 MG/ML SYRINGE ONE (14:16)
[2018-04-12] MEDS: HYDROmorphone INJ1* 1 MG/ML SYRINGE IV PRN ×5 (14:19→14:53)
[2018-04-12] MEDS ORDERED: oxyCODONE TAB* 5 MG TAB ONE (14:32)
[2018-04-12 15:15] VITALS: BP 133/94
--- NOTE | 2018-04-13 11:30 | OP ---
DATE OF OPERATION: 04/12/18 - SDS DATE OF : 82 ATTENDING SURGEON: Slava Westbrook MD OPTICAL TECHNICIAN: Rahel Saba PA-C. PRE-OP DIAGNOSES: Painful deep peroneal neuroma and painful hardware right mid foot. POST-OP DIAGNOSES: Painful deep peroneal neuroma and painful hardware right mid foot. OPERATIVE PROCEDURE: Removal of hardware right mid foot and excision and burial of deep peroneal nerve. DESCRIPTION OF PROCEDURE: The patient was taken to the operating room where a longitudinal incision was made over the dorsum of the midfoot. We incised down along the medial border of the EHL tendon to isolate the plate over the dorsum, which was removed with appropriate star screwdriver as well as the medial to lateral lag screw. This wound was then irrigated and closed with Vicryl and subcutaneous Monocryl suture. We then made a 4-cm incision proximal to the tibia just lateral to the anterior tibial crest. We divided the retinaculum at this point and isolated the deep peroneal nerve from the neurovascular bundle. The nerve was transected at the distal portion of the wound. Suture LigaSure of 3-0 Ethibond was performed and then 2 Augusto needles were placed over each strand of the Ethibond. We tunneled deep to the lateral aspect of the tibia through the intraosseous membrane to the posterior calf. Through this level, we passed both Augusto needles to the back of the calf through the skin tying the suture over the back of the calf holding the nerve down into the interosseous membrane area. This wound was then irrigated and closed with subcu Vicryl and Monocryl. Compression dressing and plaster splint applied. [id number]/[facility] #: [id number] [facility]
== END 2018-04-12 15:33 | disposition home or self-care (01) ==
LOC: OR 09:09
PROVIDERS: ATTEND Orthopaedic Surgery
DX: G57.91 Unspecified mononeuropathy of right lower limb (principal); M79.671 Pain in right foot; F17.210 Nicotine dependence, cigarettes, uncomplicated; Z88.5 Allergy status to narcotic agent; Z88.8 Allergy status to other drugs, medicaments and biological substances
CPT/HCPCS: 81025; 88300; A9270-GY; J1100; J1170; J1885; J2250; J2405; J2704; J3010

== ENCOUNTER 2018-05-26 12:51 | Emergency (ER) | payer OTHER ==
--- OUTSIDE RECORDS SUMMARY | 2018-05-26 13:06 | XMS REPORT | Continuity of Care Document ---
:1980 External Reference #:[id number] Author Name AdaliBlaise henry Care Team Providers Name Role Phone Marc Ramey MD Primary Care Physician Unavailable Payers Type Date Identification Numbers Payment Provider Subscriber Policy Number: [id number] [employer] Medicaid Abby Carlton PayID: [id number] [address] [address] [place] [address] Advance Directives Type Date Description Status Comment Other Directive 01/27/2017 Health Care Proxy Current and Verified Problems Date Description Provider Status Onset: 12/13/2016 Alcohol-induced acute Malina Blount, N.P. Active pancreatitis Onset: 12/13/2016 Mild intermittent asthma Malina Blount, N.P. Active Onset: 09/28/2017 Closed fracture of metatarsal Casey Yu MD Active bone Onset: 09/28/2017 Closed traumatic dislocation of Casey Yu MD Active tarsometatarsal joint Onset: 01/15/2018 Epigastric pain Glenda Melton D.O. 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 Active Onset: 01/21/2018 Gastroduodenitis Edmundo Michael MD Active Onset: 01/21/2018 Tobacco user Edmundo Michael MD Active Onset: 04/01/2018 Backache Glenda Melton D.O. Active Onset: 03/29/2018 Anxiety state Chasidy Ivy M.D. Active Onset: 03/29/2018 Alcohol-induced psychosis Chasidy Ivy M.D. Active Onset: 03/29/2018 Hypoglycemia Chasidy Ivy M.D. Active Family History Date Family Member(s) Problem(s) Comments Father Prostate Cancer Father Hypertension Age 60 Mother Alive And Well Age 58 Children 5 3 Daughters 2 Sons Does not have custody of children. Each have different fathers. 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 Recreational Drug Use Denies Drug Use Tobacco Use Start: Unknown Light tobacco smoker (10 or fewer cigarettes/day) Smoking Status Reviewed: 05/13/18 Light tobacco smoker (10 or fewer cigarettes/day) Allergies, Adverse Reactions, Alerts Date Description Reaction Status Severity Comments 05/05/2013 Codeine Active 06/03/2017 Metaxalone Active feels "loopy" 06/03/2017 Zithromax Active violently ill 07/29/2017 Azithromycin Active 11/05/2017 Keflex Active Severe Can't breath 11/05/2017 Qvar Active 02/18/2018 Lorazepam Nausea and Vomiting, Increased Active confusion Medications Medication Date Status Form Strength Qnty SIG Indications Ordering Provider Gabapentin 03/12 Active Tablets 600mg 90tab take 1 and s 1/2 tablets Varn, N.P. three times a day Walker Swivel 11/05 Active Misc 3" 1unit use this to S93.324D Malina s ambulate Varn, N.P. Adjustment Holes/3" With Seat Hydroxyzine 01/27 Active Capsules 25mg 30cap one by F41.1 Pam s mouth every Varn, N.P. 8 hours as needed for anxiety Ondansetron 12/24 Active Tablets 4mg 20tab 1 tablet R11.2 Dispers s under Varn, N.P. tongue every 8 hours as needed nausea Nicotine Active Patches 21mg/24HR Apply 1 24HR Patch Transdermal ly Every Day AT 800Am Melatonin ER Active Tablets 3mg 30tab 1 tab by ER s mouth at Varn, N.P. bedtime Omeprazole Active Capsules 40mg 1 by mouth Unknown / DR every day Oxycodone HCL Active Tablets 5mg 20tab 1 tab po s q4-6 hours sun [place] MCarminaDCarmina Seroquel Active Tablets 25mg 30tab Take 1 R11.2 s Tablet By Varn, N.P. Mouth AT Bedtime Baclofen Active Tablets 10mg 45tab Take 1/2 Malina /0000 s Tablet By Varn, N.P. Mouth Every 8 Hours as Needed For Muscle Spasm Macrobid 11/08 Hx Capsules 100mg 14cap 1 [...] Baclofen 06/25 Hx Tablets 10mg 45tab Take 12 M54.9 s Tablet By Varn, N.P. - Mouth Every 01/25 8 Hours Needed For Muscle Spasm Omeprazole 06/24 Hx Capsules 20mg 30cap [address] [facility] every day Viraj Kaba M.D. 01/25 Doxycycline 06/14 Hx Capsules 100mg one tablet Unknown Hyclate twice daily - for 10 days 06/25 ([facility]) Pulmicort 03/11 Hx Aerosol 180mcg/Ac 1unit 2 puffs Malina t s twice daily Varn, N.P. - 08/18 Metaxalone 02/27 Hx Tablets 800mg 30tab take 1 M54. s tablet 3 Varn, N.P. - times a day 06/02 as Oxycodone HCL 02/27 Hx Tablets 5mg 20tab one by M54. s mouth every Varn, N.P. - 8 [...] hours as 02/27 needed pain Oxycodone HCL 00/ Hx Tablets 10mg 1 po q 4 Unknown /0000 hrs prn - pain MDD 6 03/29 tabs ([facility] /2016 DC summary) Omeprazole Hx Capsules 40mg 1 by mouth Unknown /0000 DR every day - ([facility] DC 06/24 summary) Ibu-200 Hx Tablets 200mg 2 tab as Unknown /0000 needed. - 01/25 Oxycodone HCL 00 Hx Tablets 5mg 30tab 1 tab po Casey /0000 s q4-6 hours Aimee, - prn 01/26 Cyclobenzaprine Hx Tablets 5mg 30tab take one Malina HCL /0000 s tablet by Varanh, N.P. - mouth every 04/05 8 hours /2017 prn. may take a second tablet if first not effetive. Aspirin Ec Hx Tablets 325mg take 1 tab Unknown /0000 DR by mouth - every day x 12/19. with food. Methadone HCL Hx Tablets 10mg Take 1 Unknown /0000 Tablet By - Mouth Three 01/18 Times Maximum Daily Dose Of 3 Per D Sucralfate Hx Tablets 1gm Take 1 Unknown /0000 Tablet By - Mouth Two 03/12 Times Chlordiazepoxide Hx Capsules 25mg Take 1 Unknown HCL /0000 Capsule By - Mouth Three 04/05 Times Daily Maximum Daily Dose Of 3 Caps Gabapentin Hx Capsules 300mg 1 by mouth [...] Form Strength Qnty SIG Indications Ordering Provider Depomedrol Administered Injection Slava 40MG Bashir [place] M.D. Immunizations CPT Code Status Date Vaccine Reaction Lot # [id number] Given 03/12/2018 Influenza Virus Vaccine, No immediate [id number] Quadrivalent, Split, reaction..jh Preservative Free [id number] Given 03/27/2014 Tdap - Tetanus/Diptheria/Acellular Pertussis 42988 Given 06/26/2011 Influenza Virus Vaccine, Quadrivalent, Split, Preservative Free 32887 Given 07/31/2009 Influenza Virus Vaccine, Quadrivalent, Split, Preservative Free 04408 Given 07/31/2009 Influenza Virus Vaccine, Quadrivalent, Split, Preservative Free 39886 Given 07/31/2009 Influenza Virus Vaccine, Quadrivalent, Split, Preservative Free 92215 Given 07/31/2009 Influenza Virus Vaccine, Quadrivalent, Split, Preservative Free 44140 Given 07/31/2009 Influenza Virus Vaccine, Quadrivalent, Split, Preservative Free 69405 Given 07/31/2009 Influenza Virus Vaccine, Quadrivalent, Split, Preservative Free 83433 Given 06/25/2007 Influenza Virus Vaccine, Quadrivalent, Split, Preservative Free 48734 Given 06/25/2007 Influenza Virus Vaccine, Quadrivalent, Split, Preservative Free 24131 Given 06/25/2007 Influenza Virus Vaccine, Quadrivalent, Split, Preservative Free 05081 Given 06/25/2007 Influenza Virus 3Yrs & Over 33911 Given 07/08/2004 Tetanus And Diptheria (Td) For Adult Use Preservative Free 73882 Given 07/08/2004 Measles Mumps And Rubella MMR Vital Signs Date Vital Result Comment 05/13/2018 10:12am Height 61 inches 5'1" Weight 120.00 lb Heart Rate 82 /min BP Systolic 106 mmHg BP Diastolic 70 mmHg Respiratory Rate 12 /min Pain Level 7 BMI (Body Mass Index) 22.7 kg/m2 04/27/2018 9:59am Height 61 inches 5'1" Heart Rate 80 /min BP Systolic 130 mmHg BP Diastolic 82 mmHg Body Temperature 98.1 F Pain Level 8 03/23/2018 10:26am Height 61 inches 5'1" Weight 114.00 lb Heart Rate 76 /min BP Systolic 120 mmHg BP Diastolic 70 mmHg Respiratory Rate 12 /min Pain Level 10 BMI (Body Mass Index) 21.5 kg/m2 03/12/2018 2:24pm Heart Rate 97 /min BP Systolic 122 mmHg BP Diastolic 82 mmHg O2 % BldC Oximetry 95 % 03/04/2018 8:50am Height 61 inches 5'1" Heart Rate 68 /min BP Systolic 132 mmHg BP Diastolic 100 mmHg Respiratory Rate 20 /min Body Temperature 96.7 F Pain Level 9 02/18/2018 11:02am Height 61 inches 5'1" Weight 125.00 lb Heart Rate 82 /min BP Systolic Sitting 120 mmHg BP Diastolic Sitting 84 mmHg Respiratory Rate 16 /min Pain Level 10 BMI (Body Mass Index) 23.6 kg/m2 02/03/2018 3:34pm Height 61 inches 5'1" Weight 125.00 lb Heart Rate 80 /min BP Systolic 114 mmHg BP Diastolic 64 mmHg Pain Level 8 BMI (Body Mass Index) 23.6 kg/m2 12/23/2017 3:51pm Height 61 inches 5'1" Weight 120.00 lb BP Systolic 112 mmHg BP Diastolic 70 mmHg Body Temperature 97.7 F Pain Level 8 BMI (Body Mass Index) 22.7 kg/m2 11/11/2017 4:02pm Heart Rate 78 /min BP Systolic 110 mmHg BP Diastolic 74 mmHg Respiratory Rate 14 /min Body Temperature 95.8 F Pain Level 5 11/05/2017 11:21am Weight 115.00 lb Heart Rate 104 /min BP Systolic 129 mmHg BP Diastolic 91 mmHg Body Temperature 98.6 F O2 % BldC Oximetry 99 % 10/14/2017 1:17pm Height 61 inches 5'1" Weight 120.00 lb BP Systolic 130 mmHg BP Diastolic 86 mmHg Body Temperature 98.0 F BMI (Body Mass Index) 22.7 kg/m2 10/06/2017 1:09pm Height 61 inches 5'1" Weight 120.00 lb BP Systolic 120 mmHg BP Diastolic 78 mmHg Respiratory Rate 16 /min Pain Level 8 BMI (Body Mass Index) 22.7 kg/m2 09/28/2017 3:38pm Height 61 inches 5'1" Heart Rate 95 /min BP Systolic 138 mmHg BP Diastolic 78 mmHg Respiratory Rate 16 /min Body Temperature 97.6 F Pain Level 8 09/22/2017 1:53pm Height 61 inches 5'1" Weight 120.00 lb BP Systolic 118 mmHg BP Diastolic 74 mmHg Respiratory Rate 16 /min Body Temperature 96.4 F Pain Level 9 BMI (Body Mass Index) 22.7 kg/m2 09/10/2017 9:14am Weight 119.00 lb Heart Rate 93 /min BP Systolic Sitting 135 mmHg BP Diastolic Sitting 90 mmHg Pain Level 10 spine/left foot/left arm pit O2 % BldC Oximetry 98 % 07/29/2017 9:36am Weight 115.00 lb Heart Rate 90 /min BP Systolic Sitting 128 mmHg BP Diastolic Sitting 80 mmHg Pain Level 7 O2 % BldC Oximetry 97 % 06/25/2017 8:33am Weight 109.75 lb Heart Rate 107 /min BP Systolic Sitting 100 mmHg BP Diastolic Sitting 70 mmHg Body Temperature 97.6 F O2 % BldC Oximetry 96 % 06/03/2017 11:42am Height 61 inches 5'1" Weight 116.00 lb Heart Rate 88 /min BP Systolic Sitting 100 mmHg BP Diastolic Sitting 78 mmHg Body Temperature 98.6 F O2 % BldC Oximetry 96 % BMI (Body Mass Index) 21.9 kg/m2 04/13/2017 3:56pm Heart Rate 94 /min BP Systolic 106 mmHg BP Diastolic 66 mmHg Body Temperature 97.4 F O2 % BldC Oximetry 98 % 03/26/2017 10:28am Weight 116.50 lb Heart Rate 95 /min BP Systolic 120 mmHg BP Diastolic 68 mmHg Body Temperature 98.3 F O2 % BldC Oximetry 94 % 01/27/2017 2:16pm Weight 117.50 lb Heart Rate 100 /min BP Systolic 146 mmHg BP Diastolic 84 mmHg Body Temperature 98.3 F 12/24/2016 3:07pm Weight 111.00 lb Heart Rate 88 /min BP Systolic 122 mmHg BP Diastolic 84 mmHg O2 % BldC Oximetry 98 % 12/10/2016 4:17pm Height 48.5 inches 4'0.50" Weight 106.75 lb Heart Rate 84 /min BP Systolic 120 mmHg BP Diastolic 80 mmHg Body Temperature 97.1 F O2 % BldC Oximetry 99 % BMI (Body Mass Index) 31.9 kg/m2 05/05/2013 10:47am Height 61 inches 5'1" Weight 95.00 lb Heart Rate 84 /min BP Systolic 137 mmHg BP Diastolic 94 mmHg BMI (Body Mass Index) 17.9 kg/m2 Results Test Date Facility Test Result H/L Range Note Laboratory test 04/12/2018 [facility] Surgical SEE RESULT [address] [place] [address] [phone] Laboratory test 03/28/2018 [facility] Potassium 3.8 mmol/L N 3.5-5.[address] [place] [address] [phone] Ast Redraw 39 U/L N 13-39 CBC Auto 03/28/2018 [facility] White Blood 11.6 10^3/uL High 3.5-10.[address] [place] [address] [phone] Red Blood Count 4.75 10^6/uL N 4.00-5.40 Hemoglobin 14.4 g/dL N 12.0-16.0 Hematocrit 44 % N 35-47 Mean Corpuscular Volume 92 fL N 80-97 Mean Corpuscular Hemoglobin 30 pg N 27-31 Mean Corpuscular HGB Conc 33 g/dL N 31-36 Red Cell Distribution Width 16 % High 10.5-15 Platelet Count 139 10^3/uL Low 150-450 Mean Platelet Volume 8.6 um3 N 7.4-10.4 Abs Neutrophils 8.6 10^3/uL High 1.5-7.7 Abs Lymphocytes 1.7 10^3/uL N 1.0-4.8 Abs Monocytes 1.1 10^3/uL High 0-0.8 Abs Eosinophils 0.1 10^3/uL N 0-0.6 Abs Basophils 0.1 10^3/uL N 0-0.2 Abs Nucleated RBC 0 10^3/uL Granulocyte % 74.2 % N 38-83 Lymphocyte % 14.8 % Low 25-47 Monocyte % 9.5 % High 0-7 Eosinophil % 0.9 % N 0-6 Basophil % 0.6 % N 0-2 Nucleated Red Blood Cells % 0.1 Laboratory test 03/28/2018 [facility] Lactic Acid 1.0 mmol/L N 0.5-2.0 2 finding [address] [place] [address] [phone] Comp Metabolic 03/28/2018 [facility] Sodium 135 mmol/L N 135- 145 Panel [address] [place] [address] [phone] Chloride 100 mmol/L Low 101-111 Co2 Carbon Dioxide 23 mmol/L N 22-32 Glucose 84 mg/dL N 70-100 Blood Urea Nitrogen 10 mg/dL N 6-24 Creatinine 0.80 mg/dL N 0.51-0.95 BUN/Creatinine Ratio 12.5 N 8-20 Calcium 9.5 mg/dL N 8.6-10.3 Total Protein 7.7 g/dL N 6.4-8.9 Albumin 4.4 g/dL N 3.2-5.2 Globulin 3.3 g/dL N 2-4 Albumin/Globulin Ratio 1.3 N 1-3 Total Bilirubin 1.00 mg/dL N 0.2-1.0 Alkaline Phosphatase 158 U/L High 34-104 Alt 23 U/L N 7-52 Egfr Non- 81.2 >60 Egfr 98.2 >60 3 Potassium TNP mmol/L 3.5-5.0 4 Anion Gap 12 mmol/L High 2-11 Ast TNP U/L 13-39 5 Laboratory test 03/28/2018 [facility] HCG < 0.60 mIU/ mL 6 finding [address] [place] [address] [phone] Troponin-I (TnI) 0.14 ng/mL High <0.04 7 Lipase 1276 U/L High 11.0-82.0 Inr/Protime 03/28/2018 [facility] Inr 0.92 N 0.77-1.02 [address] [place] [address] [phone] Laboratory test 03/28/2018 [facility] Partial 27.5 seconds N 26.0-36.3 finding [address] [facility] [place] [address] PTT [phone] Urinalysis 03/28/2018 [facility] Urine Color Yellow Profile [address] [place] [address] [phone] Urine Appearance Clear Urine Specific [place] 1.039 High 1.010-1.030 Urine pH 7.0 N 5-9 Urine Urobilinogen Negative Negative Urine Ketones 2+ Abnormal Negative Urine Protein Negative Negative Urine Leukocytes Negative Negative Urine Blood 3+ Abnormal Negative Urine Nitrite Negative Negative Urine Bilirubin Negative Negative Urine Glucose Negative Negative Urine White Blood Cell Trace(0-5/hpf) Absent Urine Red Blood Cell Trace(0-2/hpf) Absent Urine Bacteria Absent Absent Urine Squamous Epithelial Cell Present Abnormal Absent Laboratory test 03/28/2018 [facility] Alcohol < 10 mg/dL N < 10 finding [address] [place] [address] [phone] Urine Culture And 03/28/2018 [facility] Urine Culture SEE RESULT [address] [place] [address] [phone] Urinalysis Profile 01/14/2018 [facility] Urine Color Yellow [address] [place] [address] [phone] Urine Appearance Cloudy Urine Specific [place] 1.018 N 1.010-1.030 Urine pH 6.0 N 5-9 Urine Urobilinogen Negative Negative Urine Ketones Trace Abnormal Negative Urine Protein 1+(30 mg/dL) Abnormal Negative Urine Leukocytes 1+ Abnormal Negative Urine Blood Negative Negative Urine Nitrite Negative Negative Urine Bilirubin Negative Negative Urine Glucose Negative Negative Urine White Blood Cell 3+(>20/hpf) Abnormal Absent Urine Red Blood Cell Trace(0-2/hpf) Absent Urine Bacteria Absent Absent Urine Squamous Epithelial Cell Present Abnormal Absent Urine Transitional Epithelial Present Abnormal Absent CBC Auto 01/14/2018 [facility] White Blood 11.0 10^3/uL High 3.5-10.[address] [place] [address] [phone] Red Blood Count 4.72 10^6/uL N 4.00-5.40 Hemoglobin 14.5 g/dL N 12.0-16.0 Hematocrit 43 % N 35-47 Mean Corpuscular Volume 91 fL N 80-97 Mean Corpuscular Hemoglobin 31 pg N 27-31 Mean Corpuscular HGB Conc 34 g/dL N 31-36 Red Cell Distribution Width 20 % High 10.5-15 Platelet Count 173 10^3/uL N 150-450 Mean Platelet Volume 7.9 um3 N 7.4-10.4 Abs Neutrophils 8.8 10^3/uL High 1.5-7.7 Abs Lymphocytes 1.2 10^3/uL N 1.0-4.8 Abs Monocytes 0.8 10^3/uL N 0-0.8 Abs Eosinophils 0.1 10^3/uL N 0-0.6 Abs Basophils 0.1 10^3/uL N 0-0.2 Abs Nucleated RBC 0 10^3/uL Granulocyte % 80.0 % N 38-83 Lymphocyte % 11.0 % Low 25-47 Monocyte % 7.1 % High 0-7 Eosinophil % 0.8 % N 0-6 Basophil % 1.1 % N 0-2 Nucleated Red Blood Cells % 0 Comp Metabolic Panel 01/14/2018 [facility] Sodium 134 mmol/L Low 135-[address] [place] [address] [phone] Potassium 3.8 mmol/L N 3.5-5.0 Chloride 100 mmol/L Low 101-111 Co2 Carbon Dioxide 26 mmol/L N 22-32 Anion Gap 8 mmol/L N 2-11 Glucose 100 mg/dL N 70-100 Blood Urea Nitrogen 8 mg/dL N 6-24 Creatinine 0.85 mg/dL N 0.51-0.95 BUN/Creatinine Ratio 9.4 N 8-20 Calcium 9.9 mg/dL N 8.6-10.3 Total Protein 8.1 g/dL N 6.4-8.9 Albumin 4.6 g/dL N 3.2-5.2 Globulin 3.5 g/dL N 2-4 Albumin/Globulin Ratio 1.3 N 1-3 Total Bilirubin 0.90 mg/dL N 0.2-1.0 Alkaline Phosphatase 161 U/L High 34-104 Alt 37 U/L N 7-52 Ast 82 U/L High 13-39 Egfr Non- 75.7 >60 Egfr 91.6 >60 9 Laboratory test 01/14/2018 [facility] HCG < 0.60 mIU/ mL [address] [place], [place] [id number] [phone] Lipase 3111 U/L High 11.0-82.0 Alcohol < 10 mg/dL N <10 Urine Culture And 01/14/2018 [facility] Urine Culture SEE RESULT [address] [place] [address] [phone] Ua Routine 11/05/2017 [facility] Ua Specific [address] [place] Ua PH 6 Ua Color brown Ua Appera cloudy Ua WBC ++ Ua Protein + Ua Glucose ++ Ua Ketones neg. Ua Bilirubin neg. Ua Urobilinogen neg. Ua Nitrite neg. Ua Occult Blood about 250 Urine Culture And 11/05/2017 [facility] Urine Culture SEE RESULT [address] [place] [address] [phone] Urinalysis Profile 09/04/2017 [facility] Urine Color Yellow [address] [place] [address] [phone] Urine Appearance Cloudy Urine Specific [place] 1.021 N 1.010-1.030 Urine pH 6.0 N 5-9 Urine Urobilinogen Negative Negative Urine Ketones Negative Negative Urine Protein 1+(30 mg/dL) Abnormal Negative Urine Leukocytes 1+ Abnormal Negative Urine Blood Negative Negative Urine Nitrite Negative Negative Urine Bilirubin Negative Negative Urine Glucose Negative Negative Urine White Blood Cell 3+(>20/hpf) Abnormal Absent Urine Red Blood Cell Absent Absent Urine Bacteria Absent Absent Urine Squamous Epithelial Cell Present Abnormal Absent Urine Culture And 09/04/2017 [facility] Urine Culture SEE RESULT [address] [place] [address] [phone] CBC Auto Diff 09/04/2017 [facility] White Blood 9.4 10^3/uL N 3.5-[address] Count 0.8 [place] [address] [phone] Red Blood Count 4.35 10^6/uL N 4.0-5.4 Hemoglobin 12.9 g/dL N 12.0-16.0 Hematocrit 39 % N 35-47 Mean Corpuscular Volume 89 fL N 80-97 Mean Corpuscular Hemoglobin 30 pg N 27-31 Mean Corpuscular HGB Conc 34 g/dL N 31-36 Red Cell Distribution Width 15 % N 10.5-15 Platelet Count 255 10^3/uL N 150-450 Mean Platelet Volume 8 um3 N 7.4-10.4 Abs Neutrophils 5.6 10^3/uL N 1.5-7.7 Abs Lymphocytes 2.8 10^3/uL N 1.0-4.8 Abs Monocytes 0.7 10^3/uL N 0-0.8 Abs Eosinophils 0.2 10^3/uL N 0-0.6 Abs Basophils 0.1 10^3/uL N 0-0.2 Abs Nucleated RBC 0 10^3/uL Granulocyte % 60.2 % N 38-83 Lymphocyte % 30.0 % N 25-47 Monocyte % 7.3 % High 0-7 Eosinophil % 1.6 % N 0-6 Basophil % 0.9 % N 0-2 Nucleated Red Blood Cells % 0 Comp Metabolic Panel 09/04/2017 [facility] Sodium 136 mmol/L N 133-[address] [place] [address] [phone] Potassium 3.8 mmol/L N 3.5-5.0 Chloride 105 mmol/L N 101-111 Co2 Carbon Dioxide 24 mmol/L N 22-32 Anion Gap 7 mmol/L N 2-11 Glucose 81 mg/dL N 70-100 Blood Urea Nitrogen 8 mg/dL N 6-24 Creatinine 0.73 mg/dL N 0.51-0.95 BUN/Creatinine Ratio 11.0 N 8-20 Calcium 9.0 mg/dL N 8.6-10.3 Total Protein 7.4 g/dL N 6.4-8.9 Albumin 4.3 g/dL N 3.2-5.2 Globulin 3.1 g/dL N 2-4 Albumin/Globulin Ratio 1.4 N 1-3 Total Bilirubin 0.40 mg/dL N 0.2-1.0 Alkaline Phosphatase 101 U/L N 34-104 Alt 17 U/L N 7-52 Ast 27 U/L N 13-39 Egfr Non- 90.2 >60 Egfr 116.0 >60 14 Laboratory test 09/04/2017 [facility] Magnesium 2.1 mg/dL N 1.9-2.7 finding [address] [place] [address] [phone] Amylase 41 U/L N 29-103 Lipase 34 U/L N 11.0-82.0 CRP High Sensitivity 2.35 mg/L 15 Alcohol 54 mg/dL High <10 HCG < 0.60 mIU/mL 16 Troponin-I (TnI) 0.00 ng/mL <0.04 Laboratory test 06/24/2017 [facility] Lactic Acid 1.2 mmol/L N 0.5-2.0 [address] [place] [address] [phone] CBC Auto Diff 06/24/2017 [facility] White Blood 8.9 10^3/uL N 3.5-10.[address] [place] [address] [phone] Red Blood Count 4.72 10^6/uL N 4.0-5.4 Hemoglobin 14.3 g/dL N 12.0-16.0 Hematocrit 43 % N 35-47 Mean Corpuscular Volume 90 fL N 80-97 Mean Corpuscular Hemoglobin 30 pg N 27-31 Mean Corpuscular HGB Conc 33 g/dL N 31-36 Red Cell Distribution Width 14 % N 10.5-15 Platelet Count 296 10^3/uL N 150-450 Mean Platelet Volume 8 um3 N 7.4-10.4 Abs Neutrophils 5.7 10^3/uL N 1.5-7.7 Abs Lymphocytes 2.4 10^3/uL N 1.0-4.8 Abs Monocytes 0.6 10^3/uL N 0-0.8 Abs Eosinophils 0.1 10^3/uL N 0-0.6 Abs Basophils 0.1 10^3/uL N 0-0.2 Abs Nucleated RBC 0.01 10^3/uL Granulocyte % 64.2 % N 38-83 Lymphocyte % 27.3 % N 25-47 Monocyte % 6.8 % N 1-9 Eosinophil % 0.8 % N 0-6 Basophil % 0.9 % N 0-2 Nucleated Red Blood Cells % 0.2 Comp Metabolic Panel 06/24/2017 [facility] Sodium 133 mmol/L N 133-[address] [place] [address] [phone] Potassium 3.6 mmol/L N 3.5-5.0 Chloride 100 mmol/L Low 101-111 Co2 Carbon Dioxide 23 mmol/L N 22-32 Anion Gap 10 mmol/L N 2-11 Glucose 82 mg/dL N 70-100 Blood Urea Nitrogen 14 mg/dL N 6-24 Creatinine 0.93 mg/dL N 0.51-0.95 BUN/Creatinine Ratio 15.1 N 8-20 Calcium 9.4 mg/dL N 8.6-10.3 Total Protein 7.4 g/dL N 6.4-8.9 Albumin 4.2 g/dL N 3.2-5.2 Globulin 3.2 g/dL N 2-4 Albumin/Globulin Ratio 1.3 N 1-3 Total Bilirubin 0.40 mg/dL N 0.2-1.0 Alkaline Phosphatase 64 U/L N 34-104 Alt 8 U/L N 7-52 Ast 14 U/L N 13-39 Egfr Non- 68.6 >60 Egfr 88.2 >60 18 Laboratory test 06/24/2017 [facility] Magnesium 2.1 mg/dL N 1.9-2.[address] [place] [address] [phone] Lipase 541 U/L High 11.0-82.0 Creatine Kinase(CK) 25 U/L N 10-223 C Reactive Protein 1.94 mg/L N < 5.00 19 HCG < 0.60 mIU/mL 20 Lipid Profile 06/24/2017 [facility] Triglycerides 98 mg/dL 21 (Trig/Chol/HDL) [address] [place] [address] [phone] Cholesterol 166 mg/dL 22 HDL Cholesterol 49.4 mg/dL 23 LDL Cholesterol 97 mg/dL 24 Laboratory test 06/24/2017 [facility] Alcohol < 10 mg/dL N < 10 finding [address] [place] [address] [phone] Urinalysis Profile 06/24/2017 [facility] Urine Color Straw [address] [place] [address] [phone] Urine Appearance Cloudy Urine Specific [place] 1.002 Low 1.010-1.030 Urine pH 6.0 N 5-9 Urine Urobilinogen Negative Negative Urine Ketones Negative Negative Urine Protein Negative Negative Urine Leukocytes Negative Negative Urine Blood Negative Negative Urine Nitrite Negative Negative Urine Bilirubin Negative Negative Urine Glucose Negative Negative Arterial Blood Gas 06/12/2017 [facility] Fio2 2 [address] [place] [address] [phone] PH Arterial 7.35 N 7.35-7.45 Pco2 Arterial 33 mmHg Low 35-45 Po2 Arterial 78 mmHg Low 80-100 O2 Saturation Arterial 97.2 % N 95-98 Base Excess Arterial -6.4 Low -2.0-2.0 25 Hco3 Arterial 19.8 mmol/L N 19-31 CBC Auto 06/12/2017 [facility] White Blood 14.7 10^3/uL High 3.5-10.[address] [place] [address] [phone] Red Blood Count 4.61 10^6/uL N 4.0-5.4 Hemoglobin 13.9 g/dL N 12.0-16.0 Hematocrit 43 % N 35-47 Mean Corpuscular Volume 92 fL N 80-97 Mean Corpuscular Hemoglobin 30 pg N 27-31 Mean Corpuscular HGB Conc 33 g/dL N 31-36 Red Cell Distribution Width 14 % N 10.5-15 Platelet Count 303 10^3/uL N 150-450 Mean Platelet Volume 9 um3 N 7.4-10.4 Abs Neutrophils 12.9 10^3/uL High 1.5-7.7 Abs Lymphocytes 1.0 10^3/uL N 1.0-4.8 Abs Monocytes 0.5 10^3/uL N 0-0.8 Abs Eosinophils 0.2 10^3/uL N 0-0.6 Abs Basophils 0.1 10^3/uL N 0-0.2 Abs Nucleated RBC 0 10^3/uL Granulocyte % 87.8 % High 38-83 Lymphocyte % 7.0 % Low 25-47 Monocyte % 3.1 % N 1-9 Eosinophil % 1.2 % N 0-6 Basophil % 0.9 % N 0-2 Nucleated Red Blood Cells % 0 Comp Metabolic Panel 06/12/2017 [facility] Sodium 137 mmol/L N 133-[address] [place] [address] [phone] Potassium 4.2 mmol/L N 3.5-5.0 Chloride 108 mmol/L N 101-111 Co2 Carbon Dioxide 20 mmol/L Low 22-32 Anion Gap 9 mmol/L N 2-11 Glucose 122 mg/dL High 70-100 Blood Urea Nitrogen 9 mg/dL N 6-24 Creatinine 0.87 mg/dL N 0.51-0.95 BUN/Creatinine Ratio 10.3 N 8-20 Calcium 10.0 mg/dL N 8.6-10.3 Total Protein 8.2 g/dL N 6.4-8.9 Albumin 4.3 g/dL N 3.2-5.2 Globulin 3.9 g/dL N 2-4 Albumin/Globulin Ratio 1.1 N 1-3 Total Bilirubin 0.30 mg/dL N 0.2-1.0 Alkaline Phosphatase 90 U/L N 34-104 Alt 9 U/L N 7-52 Ast 25 U/L N 13-39 Egfr Non- 74.1 >60 Egfr 95.3 >60 26 Laboratory test 06/12/2017 [facility] D Dimer 262 ng/mL High Less [address] Quantitative Than [address] [place] [address] [phone] Amylase 50 U/L N 29-103 Lipase < 10 U/L Low 11.0-82.0 C Reactive Protein 222.45 mg/L High < 5.00 28 Troponin-I (TnI) 0.03 ng/mL <0.04 Strep AB Anti 06/12/2017 [facility] Anti Streptolysin 121 IU/mL 0 - 530 Dnase B [address] [place] [address] [phone] Anti-DNase B <74 U/mL 0 - 300 29 Urinalysis Profile 06/08/2017 [facility] Urine Color Red Abnormal [address] [place] [address] [phone] Urine Appearance Cloudy Urine pH TNP 5-9 30 Urine Urobilinogen TNP Negative 31 Urine Ketones TNP Negative 32 Urine Protein TNP Negative 33 Urine Leukocytes TNP Negative 34 Urine Blood TNP Negative 35 Urine Nitrite TNP Negative 36 Urine Bilirubin TNP Negative 37 Urine Glucose TNP Negative 38 Urine Specific [place] 1.005 Low 1.010-1.030 Urine White Blood Cell 3+(>20/hpf) Abnormal Absent Urine Red Blood Cell 3+(>10/hpf) Abnormal Absent Urine Bacteria 1+ Abnormal Absent Urine Squamous Epithelial Cell Present Abnormal Absent CBC Auto Diff 06/08/2017 [facility] White Blood 7.7 10^3/uL N 3.5-10.[address] [place] [address] [phone] Red Blood Count 4.69 10^6/uL N 4.0-5.4 Hemoglobin 14.4 g/dL N 12.0-16.0 Hematocrit 43 % N 35-47 Mean Corpuscular Volume 91 fL N 80-97 Mean Corpuscular Hemoglobin 31 pg N 27-31 Mean Corpuscular HGB Conc 34 g/dL N 31-36 Red Cell Distribution Width 14 % N 10.5-15 Platelet Count 285 10^3/uL N 150-450 Mean Platelet Volume 9 um3 N 7.4-10.4 Abs Neutrophils 4.0 10^3/uL N 1.5-7.7 Abs Lymphocytes 2.7 10^3/uL N 1.0-4.8 Abs Monocytes 0.6 10^3/uL N 0-0.8 Abs Eosinophils 0.2 10^3/uL N 0-0.6 Abs Basophils 0.1 10^3/uL N 0-0.2 Abs Nucleated RBC 0.01 10^3/uL Granulocyte % 52.6 % N 38-83 Lymphocyte % 35.3 % N 25-47 Monocyte % 7.9 % N 1-9 Eosinophil % 3.0 % N 0-6 Basophil % 1.2 % N 0-2 Nucleated Red Blood Cells % 0.1 Laboratory test finding 06/08/2017 [facility] Lipase 18 U/L N 11.0-82.[address] [place] [address] [phone] CRP High Sensitivity 3.72 mg/L 39 HCG < 0.60 mIU/mL 40 Comp Metabolic Panel 06/08/2017 [facility] Sodium 134 mmol/L N 133-[address] [place] [address] [phone] Potassium 3.5 mmol/L N 3.5-5.0 Chloride 103 mmol/L N 101-111 Co2 Carbon Dioxide 27 mmol/L N 22-32 Anion Gap 4 mmol/L N 2-11 Glucose 84 mg/dL N 70-100 Blood Urea Nitrogen 6 mg/dL N 6-24 Creatinine 0.78 mg/dL N 0.51-0.95 BUN/Creatinine Ratio 7.7 Low 8-20 Calcium 9.7 mg/dL N 8.6-10.3 Total Protein 7.3 g/dL N 6.4-8.9 Albumin 4.2 g/dL N 3.2-5.2 Globulin 3.1 g/dL N 2-4 Albumin/Globulin Ratio 1.4 N 1-3 Total Bilirubin 0.20 mg/dL N 0.2-1.0 Alkaline Phosphatase 54 U/L N 34-104 Alt 12 U/L N 7-52 Ast 20 U/L N 13-39 Egfr Non- 84.0 >60 Egfr 108.1 >60 41 Urine Culture And 06/08/2017 [facility] Urine Culture SEE RESULT [address] [place] [address] [phone] Comp Metabolic 04/14/2017 [facility] Sodium 136 mmol/L N 133- [address] [place] [address] [phone] Potassium 3.9 mmol/L N 3.5-5.0 Chloride 102 mmol/L N 101-111 Co2 Carbon Dioxide 28 mmol/L N 22-32 Anion Gap 6 mmol/L N 2-11 Glucose 90 mg/dL N 70-100 Blood Urea Nitrogen 10 mg/dL N 6-24 Creatinine 0.85 mg/dL N 0.51-0.95 BUN/Creatinine Ratio 11.8 N 8-20 Calcium 9.2 mg/dL N 8.6-10.3 Total Protein 6.7 g/dL N 6.4-8.9 Albumin 4.2 g/dL N 3.2-5.2 Globulin 2.5 g/dL N 2-4 Albumin/Globulin Ratio 1.7 N 1-3 Total Bilirubin 0.50 mg/dL N 0.2-1.0 Alkaline Phosphatase 67 U/L N 34-104 Alt 29 U/L N 7-52 Ast 35 U/L N 13-39 Egfr Non- 76.1 N >60 Egfr 97.9 N >60 43 Laboratory test finding 04/14/2017 [facility] Amylase 40 U/L N 29-[address] [place] [address] [phone] Lipase 40 U/L N 11.0-82.0 Drug Abuse 20 04/13/2017 [facility] Urine Amphetamine Negative ng/mL N 44 Urine [address] [place] [address] [phone] Urine Barbiturates Negative ng/mL N 45 Urine Benzodiazepines Negative ng/mL N 46 Urine Cocaine Negative ng/mL N 47 Urine Phencyclidine Negative ng/mL N Cutoff: 25 Urine Tetrahydrocannabinol Negative ng/mL N Cutoff: 50 48 Creatinine, Urine 122.2 mg/dL N Specific [place] 1.004 N pH 7.4 N Oxidants Negative N 49 Adulterants Comment Normal N Codeine, Ur Not Detected ng/mL N Cutoff: 25 50 Zkadxqp-4-imek-glucuronide, Ur Not Detected ng/mL N 51 Morphine, Ur Not Detected ng/mL N Cutoff: 25 52 Eagldqob-1-ktxm-glucuronide, U Not Detected ng/mL N 53 6-monoacetylmorphine, Ur Not Detected ng/mL N Cutoff: 25 54 Hydrocodone, Ur Not Detected ng/mL N Cutoff: 25 55 Norhydrocodone, Ur Not Detected ng/mL N Cutoff: 25 56 Dihydrocodeine, Ur Not Detected ng/mL N Cutoff: 25 57 Hydromorphone, Ur Not Detected ng/mL N Cutoff: 25 58 Vujcjcsaaklgx8mqgtjgcmrlktbdr Not Detected ng/mL N 59 Oxycodone, Ur Present ng/mL N Cutoff: 25 60 Noroxycodone, Ur Present ng/mL N Cutoff: 25 61 Oxymorphone, Ur Not Detected ng/mL N Cutoff: 25 62 Zqjomhzbkgz-7-wpid-glucuronide Present ng/mL N 63 Noroxymorphone, Ur Present ng/mL N Cutoff: 25 64 Fentanyl, Ur Not Detected ng/mL N Cutoff: 2 65 Norfentanyl, Ur Not Detected ng/mL N Cutoff: 2 66 Meperidine, Ur Not Detected ng/mL N Cutoff: 25 67 Normeperidine, Ur Not Detected ng/mL N Cutoff: 25 68 Naloxone, Ur Not Detected ng/mL N Cutoff: 25 69 Bfuqgmst-9-yyae-glucuronide, U Not Detected ng/mL N 70 Methadone, Ur Not Detected ng/mL N Cutoff: 25 71 Eddp, Ur Not Detected ng/mL N Cutoff: 25 72 Propoxyphene, Ur Not Detected ng/mL N Cutoff: 25 73 Norpropoxyphene, Ur Not Detected ng/mL N Cutoff: 25 74 Tramadol, Ur Not Detected ng/mL N Cutoff: 25 75 O-desmethyltramadol, Ur Not Detected ng/mL N Cutoff: 25 76 Tapentadol, Ur Not Detected ng/mL N Cutoff: 25 77 N-desmethyltapentadol, Ur Not Detected ng/mL N Cutoff: 50 78 Axfguwdrjd-oxhu-tjxekujvvax, U Not Detected ng/mL N 79 Buprenorphine, Ur Not Detected ng/mL N Cutoff: 5 80 Norbuprenorphine, Ur Not Detected ng/mL N Cutoff: 5 81 Norbuprenorphine glucuronide Not Detected ng/mL N Cutoff: 20 82 Opioid Interpretation See Comment N 83 Laboratory test 04/10/2017 [facility] TSH (Thyroid 0.66 mcIU/mL N 0.34-5.[address] [place] [address] [phone] Vitamin B12 197 pg/mL N 180-914 84 Glucose 101 mg/dL High 70-100 CBC Auto 12/15/2016 [facility] White Blood 13.8 10^3/uL High 3.5-10.[address] [place] [address] [phone] Red Blood Count 4.69 10^6/uL N 4.0-5.4 Hemoglobin 13.8 g/dL N 12.0-16.0 Hematocrit 43 % N 35-47 Mean Corpuscular Volume 92 fL N 80-97 Mean Corpuscular Hemoglobin 30 pg N 27-31 Mean Corpuscular HGB Conc 32 g/dL N 31-36 Red Cell Distribution Width 16 % High 10.5-15 Platelet Count 164 10^3/uL N 150-450 Mean Platelet Volume 9 um3 N 7.4-10.4 Abs Neutrophils 10.4 10^3/uL High 1.5-7.7 Abs Lymphocytes 2.3 10^3/uL N 1.0-4.8 Abs Monocytes 0.8 10^3/uL N 0-0.8 Abs Eosinophils 0.3 10^3/uL N 0-0.6 Abs Basophils 0 10^3/uL N 0-0.2 Abs Nucleated RBC 0.01 10^3/uL N Granulocyte % 74.9 % N 38-83 Lymphocyte % 16.5 % Low 25-47 Monocyte % 5.9 % N 1-9 Eosinophil % 2.4 % N 0-6 Basophil % 0.3 % N 0-2 Nucleated Red Blood Cells % 0 N Comp Metabolic Panel 12/15/2016 [facility] Sodium 137 mmol/L N 133-[address] [place] [address] [phone] Potassium 3.6 mmol/L N 3.5-5.0 Chloride 104 mmol/L N 101-111 Co2 Carbon Dioxide 29 mmol/L N 22-32 Anion Gap 4 mmol/L N 2-11 Glucose 87 mg/dL N 70-100 Blood Urea Nitrogen 8 mg/dL N 6-24 Creatinine 0.68 mg/dL N 0.51-0.95 BUN/Creatinine Ratio 11.8 N 8-20 Calcium 9.0 mg/dL N 8.6-10.3 Total Protein 6.0 g/dL Low 6.4-8.9 Albumin 3.4 g/dL N 3.2-5.2 Globulin 2.6 g/dL N 2-4 Albumin/Globulin Ratio 1.3 N 1-3 Total Bilirubin 0.50 mg/dL N 0.2-1.0 Alkaline Phosphatase 80 U/L N 34-104 Alt 7 U/L N 7-52 Ast 20 U/L N 13-39 Egfr Non- 98.5 N >60 Egfr 126.6 N >60 85 Laboratory test finding 12/15/2016 [facility] Lipase 32 U/L N 11.0-82.[address] [place] [address] [phone] Amylase 37 U/L N 29-103 1 SEE RESULT BELOW Name: ABBY CARLTON : [address]: Slava Westbrook MD Acct: [id number] Unit: [id number] AGE: 37 Location: OR Re04/12/18 SEX: F Status: YUNI MCGARRY SPEC: [id number] EH: 04/12/18 [facility] [place] DR: Slava Westbrook MD REQ: [id number] RECD: 04/12/181630 STATUS: SOUT _ ORDERED: LEVEL 1 FINAL DIAGNOSIS Foot, right, hardware removal: Foreign body (orthopedic hardware) (gross diagnosis) PRE-OPERATIVE DIAGNOSIS Hardware right foot GROSS DESCRIPTION The specimen is received fresh labeled, Hardware Right Foot, and consists of a 2.6 by up to 1.1 x 0.1 cm blue metallic plate with multiple ovoid holes. The following inscription is identified: [id number]. Received separately in the same container are five donnelly metallic threaded two partially threaded spline headed screws ranging from 2.0 x 0.2 cm to 3.2 x 0.2 cm. Per established hospital medical staff protocol, no tissue is submitted. Gross only. Signed by and Reported on: Lavern Hewitt MD 04/13/18 1142 END OF REPORT DEPARTMENT OF PATHOLOGY, [address] [place] [address] Francisco Marques M.D. Director [facility] # [id number] 2 [facility] Severe Sepsis and Septic Shock Management Bundle Measure requires all lactic acids initially measuring >2.0 mmol/L be repeated. 3 Because ethnic data is not always [...] 5 Kidney failure <15 (or dialysis) 4 Specimen Hemolyzed. Result may not be valid. Unable to report test result due to hemolysis. 5 Unable to report test result due to hemolysis. 6 <5.0 Negative 5.0 - 25.0 Indeterminate (Repeat testing recommended after 72 hours) >25.0 Positive Perimenopausal women can display HCG levels of up to 20 mIU/mL 7 Result TnIDx:0.14 Called to [id number] at: 22:53:12 by:[id number] Read back by: [id number] 8 SEE RESULT BELOW Name: ABBY CARLTON : [address]: Chasidy Ivy MD Acct: [id number] Unit: [id number] AGE: 37 Location: [address] Re03/29/18 SEX: F Status: ADM IN SPEC: [id number] EH: 03/29/18 [facility] [place] DR: Abdelrahman Collazo MD REQ: [id number] RECD: 03/29/18 STATUS: LOIDA MCKNIGHT DR: Malina Blount [employer] SAL[employer] REPRESENTATIVE _ SOURCE: URINE SPDESC: ORDERED: Urine Culture Procedure Result Reported Site Urine Culture Final 03/30/18- 811 ML No growth of clinically significant organisms * ML - Main Lab . END OF REPORT DEPARTMENT OF PATHOLOGY, [address] [place] [address] Francisco Marques M.D. Director [facility] # [id number] 9 Because ethnic data is not always readily [...] 15-29 5 Kidney failure <15 (or dialysis) 10 <5.0 Negative 5.0 - 25.0 Indeterminate (Repeat testing recommended after 72 hours) >25.0 Positive Perimenopausal women can display HCG levels of up to 20 mIU/mL 11 SEE RESULT BELOW Name: ABBY CARLTON : [address]: Chasidy Ivy MD Acct: [id number] Unit: [id number] AGE: 37 Location: [place] [address] Re01/15/18 SEX: F Status: ADM IN SPEC: [id number] EH: 01/14/18 [facility] [place] DR: Larry Ricks MD REQ: [id number] RECD: 01/14/18 STATUS: LOIDA MCKNIGHT DR: Malina Blount [employer] SALES REPRESENTATIVE _ SOURCE: URINE SPDESC: ORDERED: Urine Culture Procedure Result Reported Site Urine Culture Final 01/16/18- 1141 ML No growth of clinically significant organisms * ML - Main Lab . END OF REPORT DEPARTMENT OF PATHOLOGY, [address] [place] [address] Francisco Marques M.D. Director [facility] # [id number] 12 SEE RESULT BELOW Name: ABBY CARLTON : [address]: Malina Blount NP Acct: [id number] Unit: [id number] AGE: 37 Location: [facility] Re11/05/17 SEX: F Status: REG REF SPEC: [id number] EH: 11/05/17-1158 [facility] [place] DR: Malina Blount NP REQ: [id number] RECD: 11/05/17 STATUS: COMP _ SOURCE: URINE [facility]: ORDERED: Urine Culture COMMENTS: [id number] Urine Source: Clean Catch Procedure Result Reported Site Urine Culture Final 11/07/17- 0843 ML Organism 1 ESCHERICHIA COLI Manter Count >100,000 (Many) CFU/ML 1. ESCHERICHIA COLI [...] . END OF REPORT DEPARTMENT OF PATHOLOGY, [address] [place] [address] Francisco Marques M.D. Director [facility] # [id number] 13 SEE RESULT BELOW Name: ABBY CARLTON : [address]: Jose Lorenzo MD Acct: [id number] Unit: [id number] AGE: 37 Location: ED Re09/04/17 SEX: F Status: DEP ER SPEC: [id number] EH: 09/04/[address]: Lavern CRUZ REQ: [id number] RECD: 09/04/17 STATUS: LOIDA MCKNIGHT DR: Leila Blount [employer] SALES REPRESENTATIVE _ SOURCE: URINE SPDESC: ORDERED: Urine Culture Procedure Result Reported Site Urine Culture Final 09/06/17- 1010 ML Mixed iban; possible contamination. Suggest resubmission. * ML - Main Lab . END OF REPORT DEPARTMENT OF PATHOLOGY, [address] [place] [address] Francisco Marques M.D. Director [facility] # [id number] 14 Because ethnic data is not always readily [...] 15-29 5 Kidney failure <15 (or dialysis) 15 Low risk: <1.00 Average risk: 1.00-3.00 High risk: >3.00 16 <5.0 Negative 5.0 - 25.0 Indeterminate (Repeat testing recommended after 72 hours) >25.0 Positive Perimenopausal women can display HCG levels of up to 20 mIU/mL 17 [facility] Severe Sepsis and Septic Shock Management Bundle Measure requires all lactic acids initially measuring >2.0 mmol/L be repeated. 18 Because ethnic data is not always [...] 5 Kidney failure <15 (or dialysis) 19 Acute inflammation: >10.00 20 <5.0 Negative 5.0 - 25.0 Indeterminate (Repeat testing recommended after 72 hours) >25.0 Positive Perimenopausal women can display HCG levels of up to 20 mIU/mL 21 Desirable: <150 Borderline High: 150-199 High: 200-499 Very High: >500 22 Desirable: <200 Borderline High: 200-239 High: >239 23 Low: <40 Desirable: 40-60 High: >60 24 Desirable: <100 Near Optimal: 100-129 Borderline High: 130-159 High: 160-189 Very High: >189 25 Reference ranges based on room air. 26 Because ethnic data is not always readily [...] 15-29 5 Kidney failure <15 (or dialysis) 27 Please note: The following may produce a false positive D Dimer test: - Rheumatoid factor greater than 60 IU/ml - Plasma hemoglobin greater than 0.05 gm/dl - Bilirubin greater than 50 mg/dl - Lipids greater than 1000 mg/dl - FDP greater than 20 ug/ml 28 Acute inflammation: >10.00 29 Test Performed by: [address] [address] 30 Unable to evaluate urinalysis dipstick results due to interfering color. Notified [id number] 1835 06/08/17. 31 Unable to evaluate urinalysis dipstick results due to interfering color. Notified [id number] 1835 06/08/17. 32 Unable to evaluate urinalysis dipstick results due to interfering color. Notified [id number] 1835 06/08/17. 33 Unable to evaluate urinalysis dipstick results due to interfering color. Notified [id number] 1835 06/08/17. 34 Unable to evaluate urinalysis dipstick results due to interfering color. Notified [id number] 1835 06/08/17. 35 Unable to evaluate urinalysis dipstick results due to interfering color. Notified [id number] 1835 06/08/17. 36 Unable to evaluate urinalysis dipstick results due to interfering color. Notified [id number] 1835 06/08/17. 37 Unable to evaluate urinalysis dipstick results due to interfering color. Notified [id number] 1835 06/08/17. 38 Unable to evaluate urinalysis dipstick results due to interfering color. Notified [id number] 1835 06/08/17. 39 Low risk: <1.00 Average risk: 1.00-3.00 High risk: >3.00 40 <5.0 Negative 5.0 - 25.0 Indeterminate (Repeat testing recommended after 72 hours) >25.0 Positive Perimenopausal women can display HCG levels of up to 20 mIU/mL 41 Because ethnic data is not always readily [...] 15-29 5 Kidney failure <15 (or dialysis) 42 SEE RESULT BELOW Name: SHARAABBY CHRISTY Barrie : [address]: Jose Lorenzo MD Acct: [id number] Unit: [id number] AGE: 36 Location: ED Re06/08/17 SEX: F Status: DEP ER SPEC: [id number] EH: 06/08/[address]: Lavern CRUZ REQ: [id number] RECD: 06/08/17 STATUS: LOIDA MCKNIGHT DR: [facility] Malina Blount [employer] SALES REPRESENTATIVE _ SOURCE: URINE SPDESC: ORDERED: Urine Culture Procedure Result Reported Site Urine Culture Final 06/10/17- 0815 ML No growth of clinically significant organisms * ML - MAIN LAB ([facility]) . END OF REPORT * ML=Testing performed at Main Lab DEPARTMENT OF PATHOLOGY, [address] [place] [address] Francisco Marques M.D. Director [facility] # [id number] 43 Because ethnic data is not always readily [...] 15-29 5 Kidney failure <15 (or dialysis) 44 REFERENCE VALUE Cutoff: 500 45 REFERENCE VALUE Cutoff: 200 46 REFERENCE VALUE Cutoff: 100 47 REFERENCE VALUE Cutoff: 150 48 ADDITIONAL INFORMATION This report is intended for use in clinical monitoring or management of patients. It is not intended for use in employment-related testing. 49 REFERENCE VALUE Cutoff: 200 mg/L 50 Tylenol 3 51 Metabolite of codeine REFERENCE VALUE Cutoff: 100 52 Coco Schmid, MS Contin; Also a minor metabolite (10%) of codeine and can be seen in low concentrations (<2,000 ng/mL) with poppy seed ingestion. 53 Metabolite of morphine REFERENCE VALUE Cutoff: 100 54 Metabolite of heroin 55 Lortab, Lueders, Vicodin; Also a very minor metabolite of codeine and impurity (<1%) of oxycodone. 56 Metabolite of hydrocodone 57 Metabolite of hydrocodone 58 Dilaudid, Exalgo; Also a metabolite of hydrocodone and a minor (<5%) metabolite of morphine. 59 Metabolite of hydromorphone REFERENCE VALUE Cutoff: 100 60 Endocet, Percocet, Oxycontin 61 Metabolite of oxycodone 62 Numorphan, Opana; Also a metabolite of oxycodone. 63 Metabolite of oxymorphone REFERENCE VALUE Cutoff: 100 64 Metabolite of oxymorphone 65 Actiq, Duragesic, Fentora 66 Metabolite of fentanyl 67 Demerol 68 Metabolite of meperidine 69 Narcan 70 Metabolite of naloxone REFERENCE VALUE Cutoff: 100 71 Dolophine 72 Metabolite of methadone 73 Darvon, Darvocet 74 Metabolite of propoxyphene 75 Tradol, Ultram, Ultracet 76 Metabolite of tramadol 77 Nucynta 78 Metabolite of tapentadol 79 Metabolite of tapentadol REFERENCE VALUE Cutoff: 100 80 Buprenex, Suboxone 81 Metabolite of buprenorphine 82 Metabolite of buprenorphine 83 Test detected the presence of oxycodone and several metabolites (noroxycodone, noroxymorphone, and dsxywqbplog-6-qcuw-glucuronide). Suspect use of oxycodone or possibly oxycodone and oxymorphone within the past three days. ADDITIONAL INFORMATION This test was developed and its performance characteristics determined by [facility] in a manner consistent with CLIA requirements. This test has not been cleared or approved by the U.S. Food and Drug Administration. Test Performed by: [facility] [address] [place] [address] 84 Normal Range 180 to 914 Indeterminate Range 145 to 180 Deficient Range <145 85 Because ethnic data is not always readily [...] Kidney failure <15 (or dialysis) Procedures Date Code Description Status 04/12/2018 06567 Implant Nerve End Into Bone Or Muscle Completed 04/12/2018 80010 Excision Neuroma, Cutaneous Nerve Completed 04/12/2018 Removal Implant Deep Wire,Screw Nail,Abdiel Or Plate Completed 04/12/2018 Removal Implant Deep Wire,Screw Nail,Abdiel Or Plate Completed 03/29/2018 01423 ECHO Transthorasic Realtime 2D W Doppler & Color Flow Hosp Completed 02/18/2018 12884 Injection,Anesthetic Agent, Other Peripheral Nerve Branch Completed 01/20/2018 29279 Endoscopy Upper GI Biopsy Completed 10/14/2017 33137 Short Leg Cast Completed 10/06/2017 83760 Short Leg Cast Completed 10/01/2017 30793 FX Tarsal Care Completed 10/01/2017 58412 FX Tarsal Care Completed 10/01/2017 61791 FX Metatarsal Care Completed 10/01/2017 35166 FX Metatarsal Care Completed 10/01/2017 37872 Open TX Metatarsal FX,Incl Intl Fixation When Performed Completed 10/01/2017 87317 Dislocation Tarsometatarsal JT W/Wo Fixation Open TX Completed 10/01/2017 41298 Dislocation Tarsometatarsal JT W/Wo Fixation Open TX Completed 10/01/2017 99198 Dislocation Tarsometatarsal JT W/Wo Fixation Open TX Completed 10/01/2017 84345 Dislocation Tarsometatarsal JT W/Wo Fixation Open TX Completed 06/12/2017 54457 ECHO Transthorasic Realtime 2D W Doppler & Color Flow Hosp Completed 06/12/2017 82524 EKG, Interpretation Only Completed Encounters Type Date Location Provider Dx Diagnosis Office Visit 04/01/2018 [facility] Glenda Melton, K85.20 Alcohol induced 11:13a julia Denson DCarminaOCarmina acute pancreatitis Hospitalists without necrosis or infct F41.9 Anxiety disorder, unspecified F10.19 Alcohol abuse with unspecified alcohol-induced disorder M54.9 Dorsalgia, unspecified Office Visit 03/31/2018 [facility] Chasidy Ivy K85.20 Alcohol induced 11:13a julia Denson M.D. acute Hospitalists pancreatitis without necrosis or infct E16.2 Hypoglycemia, unspecified F10.19 Alcohol abuse with unspecified alcohol-induced disorder F41.9 Anxiety disorder, unspecified M54.9 Dorsalgia, unspecified Office Visit 03/30/2018 [facility] Chasidy Ivy K85.20 Alcohol induced 11:12a julia Denson M.D. acute Hospitalists pancreatitis without necrosis or infct F10.19 Alcohol abuse with unspecified alcohol-induced disorder E16.2 Hypoglycemia, unspecified F41.9 Anxiety disorder, unspecified Office Visit 03/29/2018 [facility] Chasidy Ivy K85.20 Alcohol induced 11:11a julia Denson M.D. acute Hospitalists pancreatitis without necrosis or infct E16.2 Hypoglycemia, unspecified F10.19 Alcohol abuse with unspecified alcohol-induced disorder F41.9 Anxiety disorder, unspecified Office Visit 03/23/2018 10:00a Orthopedic Slava Westbrook MSarah.671 Pain in right Services Of Jesu Velazco.D. foot G57.91 Unspecified mononeuropathy of right lower limb Office Visit 03/12/2018 2:00p [facility] Internal Malina Blount, R03.0 Elevated Medicine - N.P. blood-pressure [place] reading, w/o diagnosis of htn M79.671 Pain in right foot Z23 Encounter for immunization Office Visit 03/04/2018 Orthopedic Slava G57.91 Unspecified 9:15a Services Of Felicita Westbrook mononeuropathy of C.M.A. right lower limb S92.334D Nondisp fx of 3rd metatarsal bone, r ft, 7thD Office Visit 02/18/2018 Orthopedic Slava G57.91 Unspecified 10:15a Services Of Felicita Westbrook mononeuropathy of C.M.A. right lower limb Office Visit 02/03/2018 Orthopedic Casey S93.324D Dislocation of 3:45p Services Of MD Aimee tarsometatarsal C.M.A. joint of right foot, subs S92.334D Nondisp fx of 3rd metatarsal bone, r ft, 7thD S92.321A Disp fx of second metatarsal bone, right foot, init S92.234A Nondisp fx of intermediate cuneiform of right foot, init S92.224A Nondisp fx of lateral cuneiform of right foot, init S92.344A Nondisp fx of fourth metatarsal bone, right foot, init M79.671 Pain in right foot [facility] induced 10:35a Assoc,julia Michael MD acute Hospitalists pancreatitis without necrosis or infct K29.70 Gastritis, unspecified, without bleeding F10.10 Alcohol abuse, uncomplicated F17.210 Nicotine dependence, cigarettes, uncomplicated Office Visit 01/20/2018 [facility] Gastroenterology Sangeeta R10.13 Epigastric pain 7:00a MD Maksim K85.20 Alcohol induced acute pancreatitis without necrosis or infct K21.9 Gastro-esophageal reflux disease without esophagitis Office Visit 01/20/2018 [facility] Epigastric pain Assoc,julia Finley M.D. Hospitalists K85.20 Alcohol induced acute pancreatitis without necrosis or infct F10.10 Alcohol abuse, uncomplicated Z72.0 Tobacco use Office Visit 01/19/2018 [facility] K85.20 Alcohol induced 10:34a Assocjulia M.D. acute pancreatitis Hospitalists without necrosis or infct F10.10 Alcohol abuse, uncomplicated R10.13 Epigastric pain Z72.0 Tobacco use Office Visit 01/18/2018 [facility] [facility] K85.20 Alcohol induced 10:34a Assoc,julia Finley M.D. acute pancreatitis Hospitalists without necrosis or infct R10.13 Epigastric pain F10.10 Alcohol abuse, uncomplicated Office Visit 01/17/2018 [facility] R10.13 Epigastric pain 10:34a Assoc,julia Lancaster NP Hospitalists K85.20 Alcohol induced acute pancreatitis without necrosis or infct F10.10 Alcohol abuse, uncomplicated Office Visit 01/16/2018 [facility] R10.13 Epigastric pain 10:33a Assoc,julia Lancaster NP Hospitalists K85.20 Alcohol induced acute pancreatitis without necrosis or infct F10.10 Alcohol abuse, uncomplicated Office Visit 01/15/2018 10:33a [facility] Glenda R10.13 Epigastric pain Assoc,julia eMlton D.O. Hospitalists K85.20 Alcohol induced acute pancreatitis without necrosis or infct Office Visit 11/05/2017 11:20a [facility] Internal Malina Blount, Z00.00 Encr for Medicine - N.P. general adult [place] medical exam w/o abnormal findings F33.9 Major depressive disorder, recurrent, unspecified J45.20 Mild intermittent asthma, uncomplicated F17.210 Nicotine dependence, cigarettes, uncomplicated N39.0 Urinary tract infection, site not specified K21.9 Gastro-esophageal reflux disease without esophagitis S93.324D Dislocation of tarsometatarsal joint of right foot, subs Office Visit 09/28/2017 [facility] Casey Yu, S92.334A Nondisp fx of 3:45p Services Of third metatarsal C.M.A. bone, right foot, init S92.344A Nondisp fx of fourth metatarsal bone, right foot, init S93.324A Dislocation of tarsometatarsal joint of right foot, init Office Visit 09/22/2017 [facility] Casey Aimee, S92.334A Nondisp fx of 2:00p Services Of third metatarsal C.M.A. bone, right foot, init S92.344A Nondisp fx of fourth metatarsal bone, right foot, init Office Visit 09/10/2017 9:00a [facility] Internal Malina Blount, F33.9 Major depressive Medicine - N.P. disorder, [place] recurrent, unspecified G89.4 Chronic pain syndrome Office Visit 07/29/2017 9:50a [facility] Internal Anastasia M79.644 Pain in right Medicine - Felicita Cadet finger(s) [place] Z79.899 Other chcf (current) drug therapy Office Visit 06/25/2017 9:00a [facility] Internal Hernandez Casper, J18.9 Pneumonia, Medicine - [employer]ENTATIVE unspecified [place] organism M54.9 Dorsalgia, unspecified R79.9 Abnormal finding of blood chemistry, unspecified R10.9 Unspecified abdominal pain Office Visit 06/24/2017 10:14a [facility] Norma Eller, K86.1 Other chronic Assoc,pc N.P. pancreatitis Hospitalists Office Visit 06/13/2017 7:16a [facility] Norma Eller J18.9 Pneumonia, Assoc,pc N.P. 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 [place] F41.1 Generalized anxiety disorder K85.20 Alcohol induced acute pancreatitis without necrosis or infct M79.2 Neuralgia and neuritis, unspecified Office Visit 03/08/2017 [facility] K85.20 Alcohol induced 9:33a Assjulia arteaga NP acute Hospitalists pancreatitis without necrosis or infct M54.5 Low back pain J45.20 Mild intermittent asthma, uncomplicated G89.29 Other chronic pain Office Visit 03/07/2017 [facility] K85.20 Alcohol induced 9:33a julia Denson NP acute Hospitalists pancreatitis without necrosis or infct M54.5 Low back pain J45.20 Mild intermittent asthma, uncomplicated G89.29 Other chronic pain Office Visit 03/06/2017 [facility] Raul Sheth K85.20 Alcohol induced 9:32a Assjulia arteaga II, M.D. acute Hospitalists pancreatitis without necrosis or infct M54.5 Low back pain J45.20 Mild intermittent asthma, uncomplicated G89.29 Other chronic pain Office Visit 02/27/2017 4:20p [facility] Internal Malina Varn, M54.5 Low back pain Medicine - N.P. [place] J45.901 Unspecified asthma with (acute) exacerbation Office Visit 01/27/2017 2:20p [facility] Internal Malina Varn, R11.2 Nausea with Medicine - N.P. vomiting, [place] unspecified M54.5 Low back pain F41.1 Generalized anxiety disorder G47.00 Insomnia, unspecified B35.3 Tinea pedis Office Visit 12/24/2016 3:00p [facility] Internal Malina Blount, K85.90 Acute pancreatitis Medicine - N.P. without necrosis [place] or infection, unsp R11.2 Nausea with vomiting, unspecified M54.5 Low back pain Office Visit 12/10/2016 4:00p [facility] Internal Malina Blount, J18.9 Pneumonia , Medicine - N.P. unspecified [place] organism K85.90 Acute pancreatitis without necrosis or infection, unsp R11.2 Nausea with vomiting, unspecified Office Visit 11/22/2016 [facility] Chasidy Ivy, J18.9 Pneumonia, 8:29a julia Denson M.D. unspecified Hospitalists organism K85.90 Acute pancreatitis without necrosis or infection, unsp Office Visit 11/21/2016 [facility] Chasidy Ivy, J18.9 Pneumonia, 8:29a Assocjulia M.D. unspecified Hospitalists organism M54.5 Low back pain K85.90 Acute pancreatitis without necrosis or infection, unsp J45.20 Mild intermittent asthma, uncomplicated Office Visit 11/20/2016 8:28a [facility] Barbara J18.9 Pneumonia, Assoc,julia Issa M.D. unspecified Hospitalists organism K85.90 Acute pancreatitis without necrosis or infection, unsp Office Visit 11/19/2016 8:27a [facility] Barbara J18.9 Pneumonia, Assoc,julia Issa M.D. unspecified Hospitalists organism M54.5 Low back pain K85.90 Acute pancreatitis without necrosis or infection, unsp Office Visit 11/18/2016 [facility] Raul Russelldaphne J18.9 Pneumonia, 8:26a Assoc,julia ELLINGTON M.D. unspecified Hospitalists organism M54.5 Low back pain K85.90 Acute pancreatitis without necrosis or infection, unsp J45.20 Mild intermittent asthma, uncomplicated Office Visit 11/15/2016 [facility] Yves K85.20 Alcohol induced 10:39a Assocjulia M.D. acute Hospitalists pancreatitis without necrosis or infct N30.00 Acute cystitis without hematuria M54.5 Low back pain F10.231 Alcohol dependence with withdrawal delirium Office Visit 11/14/2016 [facility] Miller Garner K85.20 Alcohol induced 2:34p Assoc,julia Dalton D.O. acute pancreatitis Hospitalists without necrosis or infct Office Visit 11/13/2016 [facility] Miller Garner K85.20 Alcohol induced 2:33p Assoc,pc Krystle D.O. acute pancreatitis Hospitalists without necrosis or infct N30.00 Acute cystitis without hematuria F10.231 Alcohol dependence with withdrawal delirium Office Visit 11/12/2016 [facility] Miller Garner K85.20 Alcohol induced 2:32p Assoc,julia Dalton D.O. acute pancreatitis Hospitalists without necrosis or infct F10.231 Alcohol dependence with withdrawal delirium Office Visit 11/12/2016 [facility] Samuel K85.20 Alcohol induced 10:38a Assocjulia M.D. acute pancreatitis Hospitalists without necrosis or infct M54.5 Low back pain F10.231 Alcohol dependence with withdrawal delirium Office Visit 11/11/2016 [facility] K85.20 Alcohol induced 10:38a Assoc,julia Finley M.D. acute pancreatitis Hospitalists without necrosis or infct M54.5 Low back pain F10.10 Alcohol abuse, uncomplicated Office Visit 11/10/2016 [facility] Navin K85.20 Alcohol induced 10:35a Assoc,julia Hawthorne N.PCarmina acute Hospitalists pancreatitis without necrosis or infct M54.5 Low back pain F10.10 Alcohol abuse, uncomplicated Office Visit 05/05/2013 10:00a Orthopedic Corinna Lares, 354.0 Carpal Tunnel Services Felicita [facility] 727.42 Ganglion Tendon Sheath Plan of Treatment Future Appointment(s):06/15/2018 9:30 am - Slava Westbrook M.D. at [facility]05/13/2018 - Slava Westbrook M.D.G57.91 Unspecified mononeuropathy of right lower limbFollow up:4-5 [id number] Pain due to internal orthopedic prosthetic devices, implants
--- OUTSIDE RECORDS SUMMARY | 2018-05-26 13:06 | XMS REPORT | Continuity of Care Document ---
:1980 External Reference #:[id number] Author Name AdaliBlaise henry Care Team Providers Name Role Phone Marc Ramey MD Primary Care Physician Unavailable Payers Type Date Identification Numbers Payment Provider Subscriber Policy Number: [id number] [employer] Medicaid Abby Carlton PayID: [id number] [address] [address] [place] [address] Advance Directives Type Date Description Status Comment [...] 01/16/2018 Alcohol abuse, uncomplicated Janice Lancaster, Active MANAGER DEVELOPMENTAL Onset: 01/19/2018 Tobacco use Samuel Finley M.D. [...] Use Currently consumes Drinks when watching alcohol [employer] races once weekly. Recreational Drug Use Denies [...] prn - pain MDD 6 03/29 tabs ([facility] [place] /2016 DC summary) Omeprazole Hx Capsules 40mg 1 by mouth Unknown /0000 DR every day - ([facility] [place] DC 06/24 summary) [...] Code Status Date Vaccine Reaction Lot # 23539 Given 03/12/2018 Influenza Virus Vaccine, No immediate [id number] Quadrivalent, Split, reaction..jh Preservative Free 82111 Given 03/27/2014 Tdap - Tetanus/Diptheria/Acellular Pertussis 23961 Given 06/26/2011 Influenza Virus Vaccine, Quadrivalent, Split, Preservative Free 61011 Given 07/31/2009 Influenza Virus Vaccine, Quadrivalent, Split, Preservative Free 88250 Given 07/31/2009 Influenza Virus Vaccine, Quadrivalent, Split, Preservative Free 36646 Given 07/31/2009 Influenza Virus Vaccine, Quadrivalent, Split, Preservative Free 08348 Given 07/31/2009 Influenza Virus Vaccine, Quadrivalent, Split, Preservative Free 51022 Given 07/31/2009 Influenza Virus Vaccine, Quadrivalent, Split, Preservative Free 38511 Given 07/31/2009 Influenza Virus Vaccine, Quadrivalent, Split, Preservative Free 81529 Given 06/25/2007 Influenza Virus Vaccine, Quadrivalent, Split, Preservative Free 90968 Given 06/25/2007 Influenza Virus Vaccine, Quadrivalent, Split, Preservative Free 15854 Given 06/25/2007 Influenza Virus Vaccine, Quadrivalent, Split, Preservative Free 83166 Given 06/25/2007 Influenza Virus 3Yrs & Over 51038 Given 07/08/2004 Tetanus And Diptheria (Td) For Adult Use Preservative Free 29244 Given 07/08/2004 Measles Mumps And Rubella MMR [...] Result H/L Range Note Laboratory test 04/12/2018 [facility] Surgical SEE RESULT [address] [place] [address] [phone] Laboratory test 03/28/2018 [facility] Potassium 3.8 mmol/L N 3.5-5.[address] [place] [address] [phone] Ast Redraw 39 U/L N 13-39 CBC Auto 03/28/2018 [facility] White Blood 11.6 10^3/uL High 3.5-10.[address] [place] [address] [phone] Red Blood Count 4.75 10^6/uL N 4.00-5.40 [...] Blood Cells % 0.1 Laboratory test 03/28/2018 [facility] Lactic Acid 1.0 mmol/L N 0.5-2.0 2 finding [address] [place] [address] [phone] Comp Metabolic 03/28/2018 [facility] Sodium 135 mmol/L N 135- 145 Panel [address] [place] [address] [phone] Chloride 100 mmol/L Low 101-111 Co2 Carbon [...] TNP U/L 13-39 5 Laboratory test 03/28/2018 [facility] HCG < 0.60 mIU/ mL 6 finding [address] [place] [address] [phone] Troponin-I (TnI) 0.14 ng/mL High <0.04 7 Lipase 1276 U/L High 11.0-82.0 Inr/Protime 03/28/2018 [facility] Inr 0.92 N 0.77-1.02 [address] [place] [address] [phone] Laboratory test 03/28/2018 [facility] Partial 27.5 seconds N 26.0-36.3 finding [address] [facility] [place] [address] [phone] Urinalysis 03/28/2018 [facility] Urine Color Yellow Profile [address] [place] [address] [phone] Urine Appearance Clear Urine Specific [place] 1.039 High 1.010-1.030 Urine pH 7.0 N [...] Cell Present Abnormal Absent Laboratory test 03/28/2018 [facility] Alcohol < 10 mg/dL N < 10 finding [address] [place] [address] [phone] Urine Culture And 03/28/2018 [facility] Urine Culture SEE RESULT [address] [place] [address] [phone] Urinalysis Profile 01/14/2018 [facility] Urine Color Yellow [address] [place] [address] [phone] Urine Appearance Cloudy Urine Specific [place] 1.018 N 1.010-1.030 Urine pH 6.0 N [...] Epithelial Present Abnormal Absent CBC Auto 01/14/2018 [facility] White Blood 11.0 10^3/uL High 3.5-10.[address] [place] [address] [phone] Red Blood Count 4.72 10^6/uL N 4.00-5.40 [...] Cells % 0 Comp Metabolic Panel 01/14/2018 [facility] Sodium 134 mmol/L Low 135-[address] [place] [address] [phone] Potassium 3.8 mmol/L N 3.5-5.0 Chloride 100 [...] Egfr 91.6 >60 9 Laboratory test 01/14/2018 [facility] HCG < 0.60 mIU/ mL [address] [place], [place] [phone] Lipase 3111 U/L High 11.0-82.0 Alcohol < 10 mg/dL N <10 Urine Culture And 01/14/2018 [facility] Urine Culture SEE RESULT [address] [place] [address] [phone] Ua Routine 11/05/2017 [facility] Ua Specific [address] [place] Ua PH 6 Ua Color brown Ua Appera cloudy Ua WBC ++ Ua Protein + Ua Glucose ++ Ua Ketones neg. Ua Bilirubin neg. Ua Urobilinogen neg. Ua Nitrite neg. Ua Occult Blood about 250 Urine Culture And 11/05/2017 [facility] Urine Culture SEE RESULT [address] [place] [address] [phone] Urinalysis Profile 09/04/2017 [facility] Urine Color Yellow [address] [place] [address] [phone] Urine Appearance Cloudy Urine Specific [place] 1.021 N 1.010-1.030 Urine pH 6.0 N [...] Present Abnormal Absent Urine Culture And 09/04/2017 [facility] Urine Culture SEE RESULT [address] [place] [address] [phone] CBC Auto Diff 09/04/2017 [facility] White Blood 9.4 10^3/uL N 3.5-[address] Count 0.8 [place] [address] [phone] Red Blood Count 4.35 10^6/uL N 4.0-5.4 [...] Cells % 0 Comp Metabolic Panel 09/04/2017 [facility] Sodium 136 mmol/L N 133-[address] [place] [address] [phone] Potassium 3.8 mmol/L N 3.5-5.0 Chloride 105 [...] Egfr 116.0 >60 14 Laboratory test 09/04/2017 [facility] Magnesium 2.1 mg/dL N 1.9-2.7 finding [address] [place] [address] [phone] Amylase 41 U/L N 29-103 Lipase 34 U/L N 11.0-82.0 CRP High Sensitivity 2.35 mg/L 15 Alcohol 54 mg/dL High <10 HCG < 0.60 mIU/mL 16 Troponin-I (TnI) 0.00 ng/mL <0.04 Laboratory test 06/24/2017 [facility] Lactic Acid 1.2 mmol/L N 0.5-2.0 [address] [place] [address] [phone] CBC Auto Diff 06/24/2017 [facility] White Blood 8.9 10^3/uL N 3.5-10.[address] [place] [address] [phone] Red Blood Count 4.72 10^6/uL N 4.0-5.4 [...] Cells % 0.2 Comp Metabolic Panel 06/24/2017 [facility] Sodium 133 mmol/L N 133-[address] [place] [address] [phone] Potassium 3.6 mmol/L N 3.5-5.0 Chloride 100 [...] Egfr 88.2 >60 18 Laboratory test 06/24/2017 [facility] Magnesium 2.1 mg/dL N 1.9-2.[address] [place] [address] [phone] Lipase 541 U/L High 11.0-82.0 Creatine Kinase(CK) 25 U/L N 10-223 C Reactive Protein 1.94 mg/L N < 5.00 19 HCG < 0.60 mIU/mL 20 Lipid Profile 06/24/2017 [facility] Triglycerides 98 mg/dL 21 (Trig/Chol/HDL) [address] [place] [address] [phone] Cholesterol 166 mg/dL 22 HDL Cholesterol 49.4 mg/dL 23 LDL Cholesterol 97 mg/dL 24 Laboratory test 06/24/2017 [facility] Alcohol < 10 mg/dL N < 10 finding [address] [place] [address] [phone] Urinalysis Profile 06/24/2017 [facility] Urine Color Straw [address] [place] [address] [phone] Urine Appearance Cloudy Urine Specific [place] 1.002 Low 1.010-1.030 Urine pH 6.0 N 5-9 Urine Urobilinogen Negative Negative Urine Ketones Negative Negative Urine Protein Negative Negative Urine Leukocytes Negative Negative Urine Blood Negative Negative Urine Nitrite Negative Negative Urine Bilirubin Negative Negative Urine Glucose Negative Negative Arterial Blood Gas 06/12/2017 [facility] Fio2 2 [address] [place] [address] [phone] PH Arterial 7.35 N 7.35-7.45 Pco2 Arterial 33 mmHg Low 35-45 Po2 Arterial 78 mmHg Low 80-100 O2 Saturation Arterial 97.2 % N 95-98 Base Excess Arterial -6.4 Low -2.0-2.0 25 Hco3 Arterial 19.8 mmol/L N 19-31 CBC Auto 06/12/2017 [facility] White Blood 14.7 10^3/uL High 3.5-10.[address] [place] [address] [phone] Red Blood Count 4.61 10^6/uL N 4.0-5.4 [...] Cells % 0 Comp Metabolic Panel 06/12/2017 [facility] Sodium 137 mmol/L N 133-[address] [place] [address] [phone] Potassium 4.2 mmol/L N 3.5-5.0 Chloride 108 [...] Egfr 95.3 >60 26 Laboratory test 06/12/2017 [facility] D Dimer 262 ng/mL High Less [address] Quantitative Than [address] [place] [address] [phone] Amylase 50 U/L N 29-103 Lipase < 10 U/L Low 11.0-82.0 C Reactive Protein 222.45 mg/L High < 5.00 28 Troponin-I (TnI) 0.03 ng/mL <0.04 Strep AB Anti 06/12/2017 [facility] Anti Streptolysin 121 IU/mL 0 - 530 Dnase B [address] [place] [address] [phone] Anti-DNase B <74 U/mL 0 - 300 29 Urinalysis Profile 06/08/2017 [facility] Urine Color Red Abnormal [address] [place] [address] [phone] Urine Appearance Cloudy Urine pH TNP 5-9 30 Urine Urobilinogen TNP Negative 31 Urine Ketones TNP Negative 32 Urine Protein TNP Negative 33 Urine Leukocytes TNP Negative 34 Urine Blood TNP Negative 35 Urine Nitrite TNP Negative 36 Urine Bilirubin TNP Negative 37 Urine Glucose TNP Negative 38 Urine Specific [place] 1.005 Low 1.010-1.030 Urine White Blood Cell 3+(>20/hpf) Abnormal Absent Urine Red Blood Cell 3+(>10/hpf) Abnormal Absent Urine Bacteria 1+ Abnormal Absent Urine Squamous Epithelial Cell Present Abnormal Absent CBC Auto Diff 06/08/2017 [facility] White Blood 7.7 10^3/uL N 3.5-10.[address] [place] [address] [phone] Red Blood Count 4.69 10^6/uL N 4.0-5.4 [...] Cells % 0.1 Laboratory test finding 06/08/2017 [facility] Lipase 18 U/L N 11.0-82.[address] [place] [address] [phone] CRP High Sensitivity 3.72 mg/L 39 HCG < 0.60 mIU/mL 40 Comp Metabolic Panel 06/08/2017 [facility] Sodium 134 mmol/L N 133-[address] [place] [address] [phone] Potassium 3.5 mmol/L N 3.5-5.0 Chloride 103 [...] 108.1 >60 41 Urine Culture And 06/08/2017 [facility] Urine Culture SEE RESULT [address] [place] [address] [phone] Comp Metabolic 04/14/2017 [facility] Sodium 136 mmol/L N 133- [address] [place] [address] [phone] Potassium 3.9 mmol/L N 3.5-5.0 Chloride 102 [...] N >60 43 Laboratory test finding 04/14/2017 [facility] Amylase 40 U/L N 29-[address] [place] [address] [phone] Lipase 40 U/L N 11.0-82.0 Drug Abuse 20 04/13/2017 [facility] Urine Amphetamine Negative ng/mL N 44 Urine [address] [place] [address] [phone] Urine Barbiturates Negative ng/mL N 45 Urine Benzodiazepines Negative ng/mL N 46 Urine Cocaine Negative ng/mL N 47 Urine Phencyclidine Negative ng/mL N Cutoff: 25 Urine Tetrahydrocannabinol Negative ng/mL N Cutoff: 50 48 Creatinine, Urine 122.2 mg/dL N Specific [place] 1.004 N pH 7.4 N Oxidants Negative N 49 Adulterants Comment Normal N Codeine, Ur Not Detected ng/mL N Cutoff: 25 50 Lmhgcfs-0-mpkm-glucuronide, Ur Not Detected ng/mL N 51 Morphine, Ur Not Detected ng/mL N Cutoff: 25 52 Oerqvrdm-5-ujjh-glucuronide, U Not Detected ng/mL N 53 6-monoacetylmorphine, Ur Not Detected ng/mL N Cutoff: 25 54 Hydrocodone, Ur Not Detected ng/mL N Cutoff: 25 55 Norhydrocodone, Ur Not Detected ng/mL N Cutoff: 25 56 Dihydrocodeine, Ur Not Detected ng/mL N Cutoff: 25 57 Hydromorphone, Ur Not Detected ng/mL N Cutoff: 25 58 Fxgirzwfagzun0iydfexhjpdayktb Not Detected ng/mL N 59 Oxycodone, Ur Present ng/mL N Cutoff: 25 60 Noroxycodone, Ur Present ng/mL N Cutoff: 25 61 Oxymorphone, Ur Not Detected ng/mL N Cutoff: 25 62 Uiiwlvtchqp-4-lmlz-glucuronide Present ng/mL N 63 Noroxymorphone, Ur Present ng/mL N Cutoff: 25 64 Fentanyl, Ur Not Detected ng/mL N Cutoff: 2 65 Norfentanyl, Ur Not Detected ng/mL N Cutoff: 2 66 Meperidine, Ur Not Detected ng/mL N Cutoff: 25 67 Normeperidine, Ur Not Detected ng/mL N Cutoff: 25 68 Naloxone, Ur Not Detected ng/mL N Cutoff: 25 69 Blgbaoql-6-cyci-glucuronide, U Not Detected ng/mL N 70 Methadone, [...] Not Detected ng/mL N Cutoff: 50 78 Ueichisxqz-oyaw-gsbjjtgmdxq, U Not Detected ng/mL N 79 Buprenorphine, Ur Not Detected ng/mL N Cutoff: 5 80 Norbuprenorphine, Ur Not Detected ng/mL N Cutoff: 5 81 Norbuprenorphine glucuronide Not Detected ng/mL N Cutoff: 20 82 Opioid Interpretation See Comment N 83 Laboratory test 04/10/2017 [facility] TSH (Thyroid 0.66 mcIU/mL N 0.34-5.[address] Stim [place]orm) [place] [address] [phone] Vitamin B12 197 pg/mL N 180-914 84 Glucose 101 mg/dL High 70-100 CBC Auto 12/15/2016 [facility] White Blood 13.8 10^3/uL High 3.5-10.[address] [place] [address] [phone] Red Blood Count 4.69 10^6/uL N 4.0-5.4 [...] % 0 N Comp Metabolic Panel 12/15/2016 [facility] Sodium 137 mmol/L N 133-[address] [place] [address] [phone] Potassium 3.6 mmol/L N 3.5-5.0 Chloride 104 [...] N >60 85 Laboratory test finding 12/15/2016 [facility] Lipase 32 U/L N 11.0-82.[address] [place] [address] [phone] Amylase 37 U/L N 29-103 1 SEE RESULT BELOW Name: ABBY CARLTON : [address]: Slava Westbrook MD Acct: [id number] Unit: [id number] AGE: 37 Location: OR Re04/12/18 SEX: F Status: YUNI MCGARRY SPEC: [id number] EH: 04/12/[address] [facility] [address]: Slava Westbrook MD REQ: [id number] RECD: 04/12/183152 STATUS: SOUT _ ORDERED: LEVEL 1 FINAL DIAGNOSIS Foot, right, hardware removal: Foreign body (orthopedic hardware) (gross diagnosis) PRE-OPERATIVE DIAGNOSIS Hardware right foot GROSS DESCRIPTION The specimen is received fresh labeled, Hardware Right Foot, and consists of a 2.6 by up to 1.1 x 0.1 cm blue metallic plate with multiple ovoid holes. The following inscription is identified: [id number]. Received separately in the same container are five donnelly metallic threaded two partially threaded spline headed screws ranging from 2.0 x 0.2 cm to 3.2 x 0.2 cm. Per established hospital medical staff protocol, no tissue is submitted. Gross only. Signed by and Reported on: Lavern Hewitt MD 04/13/18 1142 END OF REPORT DEPARTMENT OF PATHOLOGY, [address] [place] [address] Francisco Marques M.D. Director [facility] # [id number] 2 [facility] Severe Sepsis and Septic Shock Management [...] 20 mIU/mL 7 Result TnIDx:0.14 Called to [id number] at: 22:53:12 by:[email or web address] Read back by: [id number] SEE RESULT BELOW Name: ABBY CARLTON : [address]: Chasidy Ivy MD Acct: [id number] Unit: [id number] AGE: 37 Location: [address] Re03/29/18 SEX: F Status: ADM IN SPEC: [id number] EH: 03/29/[address] [facility] [address]: Abdelrahman Collazo MD REQ: [id number] RECD: 03/29/18 STATUS: LOIDA MCKNIGHT DR: Malina Blount MANAGER DEVELOPMENTAL _ SOURCE: URINE SPDESC: ORDERED: Urine Culture Procedure Result Reported Site Urine Culture Final 03/30/18- 811 ML No growth of clinically significant organisms * ML - Main Lab . END OF REPORT DEPARTMENT OF PATHOLOGY, [address] [place] [address] Francisco Marques M.D. Director [facility] # [id number] 9 Because ethnic data is not always [...] [address]: Chasidy Ivy MD Acct: [id number] Unit: [id number] AGE: 37 Location: [place] [address] Re01/15/18 SEX: F Status: ADM IN SPEC: [id number] EH: 01/14/[address] [facility] [address]: Larry Ricks MD REQ: [id number] RECD: 01/14/18 STATUS: LOIDA MCKNIGHT DR: Malina Blount MANAGER DEVELOPMENTAL _ SOURCE: URINE SPDESC: ORDERED: Urine Culture Procedure Result Reported Site Urine Culture Final 01/16/18- 1141 ML No growth of clinically significant organisms * ML - Main Lab . END OF REPORT DEPARTMENT OF PATHOLOGY, [address] [place] [address] Francisco Marques M.D. Director [facility] # [id number] 12 SEE RESULT BELOW Name: ABBY CARLTON : [address]: Malina Blount NP Acct: [id number] Unit: [id number] AGE: 37 Location: [facility] Re11/05/17 SEX: F Status: REG REF SPEC: [id number] EH: 11/05/17-11[address] [facility] [address]: Malina Blount NP REQ: [id number] RECD: 11/05/17 STATUS: COMP _ SOURCE: URINE [facility]: ORDERED: Urine Culture COMMENTS: [id number] Urine Source: Clean Catch Procedure Result Reported Site Urine Culture Final 11/07/17- 0843 ML Organism 1 ESCHERICHIA COLI [place] Count >100,000 (Many) CFU/ML 1. ESCHERICHIA COLI [...] . END OF REPORT DEPARTMENT OF PATHOLOGY, [address] [place] [address] Francisco Marques M.D. Director [facility] # [id number] 13 SEE RESULT BELOW Name: ABBY CARLTON : [address]: Jose Lorenzo MD Acct: [id number] Unit: [id number] AGE: 37 Location: ED Re09/04/17 SEX: F Status: DEP ER SPEC: [id number] EH: 09/04/[address]: Lavern CRUZ REQ: [id number] RECD: 09/04/17 STATUS: LOIDA MCKNIGHT DR: Leila Blount MANAGER DEVELOPMENTAL _ SOURCE: URINE SPDESC: ORDERED: Urine Culture Procedure Result Reported Site Urine Culture Final 09/06/17- 1010 ML Mixed iban; possible contamination. Suggest resubmission. * ML - Main Lab . END OF REPORT DEPARTMENT OF PATHOLOGY, [address] [place] [address] Francisco Marques M.D. Director [facility] # [id number] 14 Because ethnic data is not always [...] levels of up to 20 mIU/mL 17 [facility] Severe Sepsis and Septic Shock Management [...] Acute inflammation: >10.00 29 Test Performed by: [address] [address] 30 Unable to evaluate urinalysis dipstick results due to interfering color. Notified [id number] 1835 06/08/17. 31 Unable to evaluate urinalysis dipstick results due to interfering color. Notified [id number] 1835 06/08/17. 32 Unable to evaluate urinalysis dipstick results due to interfering color. Notified [id number] 1835 06/08/17. 33 Unable to evaluate urinalysis dipstick results due to interfering color. Notified [id number] 1835 06/08/17. 34 Unable to evaluate urinalysis dipstick results due to interfering color. Notified [id number] 1835 06/08/17. 35 Unable to evaluate urinalysis dipstick results due to interfering color. Notified [id number] 1835 06/08/17. 36 Unable to evaluate urinalysis dipstick results due to interfering color. Notified [id number] 1835 06/08/17. 37 Unable to evaluate urinalysis dipstick results due to interfering color. Notified [id number] 1835 06/08/17. 38 Unable to evaluate urinalysis dipstick results due to interfering color. Notified [id number] 1835 06/08/17. 39 Low risk: <1.00 Average [...] [address]: Jose Lorenzo MD Acct: [id number] Unit: [id number] AGE: 36 Location: ED Re06/08/17 SEX: F Status: DEP ER SPEC: [id number] EH: 06/08/[address]: Lavern CRUZ REQ: [id number] RECD: 06/08/17 STATUS: LOIDA MCKNIGHT DR: [facility] Malina Blount MANAGER DEVELOPMENTAL _ SOURCE: URINE SPDESC: ORDERED: Urine Culture Procedure Result Reported Site Urine Culture Final 06/10/17- 0815 ML No growth of clinically significant organisms * ML - MAIN LAB ([facility]) . END OF REPORT * ML=Testing performed at Main Lab DEPARTMENT OF PATHOLOGY, [address] [place] [address] Francisco Marques M.D. Director [facility] # [id number] 43 Because ethnic data is not always [...] 100 54 Metabolite of heroin 55 Lortab, [place], Vicodin; Also a very minor metabolite of [...] oxycodone and several metabolites (noroxycodone, noroxymorphone, and vjtrpzruyvp-5-vxtl-glucuronide). Suspect use of oxycodone or possibly oxycodone and oxymorphone within the past three days. ADDITIONAL INFORMATION This test was developed and its performance characteristics determined by [facility] in a manner consistent with CLIA requirements. This test has not been cleared or approved by the U.S. Food and Drug Administration. Test Performed by: [facility] [address] [place] [address] 84 Normal Range 180 to 914 Indeterminate [...] dialysis) Procedures Date Code Description Status 04/12/2018 04226 Implant Nerve End Into Bone Or Muscle Completed 04/12/2018 24495 Excision Neuroma, Cutaneous Nerve Completed 04/12/2018 Removal Implant Deep Wire,Screw Nail,Abdiel Or Plate Completed 04/12/2018 Removal Implant Deep Wire,Screw Nail,Abdiel Or Plate Completed 03/29/2018 99234 ECHO Transthorasic Realtime 2D W Doppler & Color Flow Hosp Completed 02/18/2018 15714 Injection,Anesthetic Agent, Other Peripheral Nerve Branch Completed 01/20/2018 43070 Endoscopy Upper GI Biopsy Completed 10/14/2017 42507 Short Leg Cast Completed 10/06/2017 15575 Short Leg Cast Completed 10/01/2017 95143 FX Tarsal Care Completed 10/01/2017 70519 FX Tarsal Care Completed 10/01/2017 58557 FX Metatarsal Care Completed 10/01/2017 59133 FX Metatarsal Care Completed 10/01/2017 94273 Open TX Metatarsal FX,Incl Intl Fixation When Performed Completed 10/01/2017 77656 Dislocation Tarsometatarsal JT W/Wo Fixation Open TX Completed 10/01/2017 09591 Dislocation Tarsometatarsal JT W/Wo Fixation Open TX Completed 10/01/2017 59242 Dislocation Tarsometatarsal JT W/Wo Fixation Open TX Completed 10/01/2017 18943 Dislocation Tarsometatarsal JT W/Wo Fixation Open TX Completed 06/12/2017 72191 ECHO Transthorasic Realtime 2D W Doppler & Color Flow Hosp Completed 06/12/2017 81406 EKG, Interpretation Only Completed Encounters Type Date Location Provider Dx Diagnosis Office Visit 04/01/2018 [facility] Glenda Melton, K85.20 Alcohol induced 11:13a julia Denson DCarminaOCarmina acute pancreatitis Hospitalists without necrosis or infct F41.9 Anxiety disorder, unspecified F10.19 Alcohol abuse with unspecified alcohol-induced disorder M54.9 Dorsalgia, unspecified Office Visit 03/31/2018 [facility] Chasidy Ivy K85.20 Alcohol induced 11:13a julia Denson M.D. acute Hospitalists pancreatitis without necrosis or infct E16.2 Hypoglycemia, unspecified F10.19 Alcohol abuse with unspecified alcohol-induced disorder F41.9 Anxiety disorder, unspecified M54.9 Dorsalgia, unspecified Office Visit 03/30/2018 [facility] Chasidy Ivy K85.20 Alcohol induced 11:12a julia Denson M.D. acute Hospitalists pancreatitis without necrosis or infct F10.19 Alcohol abuse with unspecified alcohol-induced disorder E16.2 Hypoglycemia, unspecified F41.9 Anxiety disorder, unspecified Office Visit 03/29/2018 [facility] Chasidy Ivy K85.20 Alcohol induced 11:11a julia Denson M.D. acute Hospitalists pancreatitis without necrosis or infct E16.2 Hypoglycemia, unspecified F10.19 Alcohol abuse with unspecified alcohol-induced disorder F41.9 Anxiety disorder, unspecified Office Visit 03/23/2018 10:00a Orthopedic Slava Westbrook [id number] Pain in right Services Of Jesu Velazco.D. foot G57.91 Unspecified mononeuropathy of right lower limb Office Visit 03/12/2018 2:00p [facility] Internal Malina Blount, R03.0 Elevated Medicine - [...] Pain in right [facility] K[facility].20 Alcohol induced 10:35a Assoc,julia Michael MD acute Hospitalists pancreatitis without necrosis or infct K29.70 Gastritis, unspecified, without bleeding F10.10 Alcohol abuse, uncomplicated F17.210 Nicotine dependence, cigarettes, uncomplicated Office Visit 01/20/2018 [facility] Gastroenterology Sangeeta R10.13 Epigastric pain 7:00a MD Maksim K85.20 Alcohol induced acute pancreatitis without necrosis or infct K21.9 Gastro-esophageal reflux disease without esophagitis Office Visit 01/20/2018 [facility] R10[facility]13 Epigastric pain Assoc,julia Finley M.D. Hospitalists K85.20 Alcohol induced acute pancreatitis without necrosis or infct F10.10 Alcohol abuse, uncomplicated Z72.0 Tobacco use Office Visit 01/19/2018 [facility] K85.20 Alcohol induced 10:34a Assocjulia M.D. acute pancreatitis Hospitalists without necrosis or infct F10.10 Alcohol abuse, uncomplicated R10.13 Epigastric pain Z72.0 Tobacco use Office Visit 01/18/2018 [facility] K85.20 Alcohol induced 10:34a Assoc,julia Finley M.D. acute pancreatitis Hospitalists without necrosis or infct R10.13 Epigastric pain F10.10 Alcohol abuse, uncomplicated Office Visit 01/17/2018 [facility] Epigastric pain 10:34a Assoc,julia Lancaster NP Hospitalists K85.20 Alcohol induced acute pancreatitis without necrosis or infct F10.10 Alcohol abuse, uncomplicated Office Visit 01/16/2018 [facility] R10.13 Epigastric pain 10:33a Assoc,julia Lancaster NP Hospitalists K85.20 Alcohol induced acute pancreatitis without necrosis or infct F10.10 Alcohol abuse, uncomplicated Office Visit 01/15/2018 10:33a [facility] Glenda R10.13 Epigastric pain Assoc,julia Melton D.O. Hospitalists K85.20 Alcohol induced acute pancreatitis without necrosis or infct Office Visit 11/05/2017 11:20a [facility] Internal Malina Blount, Z00.00 Encr for Medicine - N.P. general adult [place] medical exam w/o abnormal findings F33.9 Major [...] right foot, init Office Visit 09/10/2017 9:00a [facility] Internal Malina Blount, F33.9 Major depressive Medicine - N.P. 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 pancreatitis Hospitalists Office Visit 06/13/2017 7:16a [facility] Norma Eller J18.9 Pneumonia, Assoc,pc N.P. 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 [place] F41.1 Generalized anxiety disorder K85.20 Alcohol induced acute pancreatitis without necrosis or infct M79.2 Neuralgia and neuritis, unspecified Office Visit 03/08/2017 [facility] K85.20 Alcohol induced 9:33a Assjulia arteaga NP acute Hospitalists pancreatitis without necrosis or infct M54.5 Low back pain J45.20 Mild intermittent asthma, uncomplicated G89.29 Other chronic pain Office Visit 03/07/2017 [facility] K85.20 Alcohol induced 9:33a julia Denson NP acute Hospitalists pancreatitis without necrosis or infct M54.5 Low back pain J45.20 Mild intermittent asthma, uncomplicated G89.29 Other chronic pain Office Visit 03/06/2017 [facility] Raul Sheth K85.20 Alcohol induced 9:32a Assjulia arteaga II, M.D. acute Hospitalists pancreatitis without necrosis or infct M54.5 Low back pain J45.20 Mild intermittent asthma, uncomplicated G89.29 Other chronic pain Office Visit 02/27/2017 4:20p [facility] Internal Malina Varn, M54.5 Low back pain Medicine - N.P. [place] J45.901 Unspecified asthma with (acute) exacerbation Office Visit 01/27/2017 2:20p [facility] Internal Malina Varn, R11.2 Nausea with Medicine - N.P. vomiting, [place] unspecified M54.5 Low back pain F41.1 Generalized anxiety disorder G47.00 Insomnia, unspecified B35.3 Tinea pedis Office Visit 12/24/2016 3:00p [facility] Internal Malina Blount, K85.90 Acute pancreatitis Medicine - N.P. without necrosis [place] or infection, unsp R11.2 Nausea with vomiting, unspecified M54.5 Low back pain Office Visit 12/10/2016 4:00p [facility] Internal Malina Blount, J18.9 Pneumonia , Medicine - N.P. unspecified [place] organism K85.90 Acute pancreatitis without necrosis or infection, unsp R11.2 Nausea with vomiting, unspecified Office Visit 11/22/2016 [facility] Chasidy Ivy, J18.9 Pneumonia, 8:29a julia Denson M.D. unspecified Hospitalists organism K85.90 Acute pancreatitis without necrosis or infection, unsp Office Visit 11/21/2016 [facility] Chasidy Ivy, J18.9 Pneumonia, 8:29a Assocjulia M.D. unspecified Hospitalists organism M54.5 Low back pain K85.90 Acute pancreatitis without necrosis or infection, unsp J45.20 Mild intermittent asthma, uncomplicated Office Visit 11/20/2016 8:28a [facility] Barbara J18.9 Pneumonia, Assoc,julia Issa M.D. unspecified Hospitalists organism K85.90 Acute pancreatitis without necrosis or infection, unsp Office Visit 11/19/2016 8:27a [facility] Barbara J18.9 Pneumonia, Assoc,julia Issa M.D. unspecified Hospitalists organism M54.5 Low back pain K85.90 Acute pancreatitis without necrosis or infection, unsp Office Visit 11/18/2016 [facility] Raul Russelldaphne J18.9 Pneumonia, 8:26a Assoc,julia ELLINGTON M.D. unspecified Hospitalists organism M54.5 Low back pain K85.90 Acute pancreatitis without necrosis or infection, unsp J45.20 Mild intermittent asthma, uncomplicated Office Visit 11/15/2016 [facility] Yves K85.20 Alcohol induced 10:39a Assocjulia M.D. acute Hospitalists pancreatitis without necrosis or infct N30.00 Acute cystitis without hematuria M54.5 Low back pain F10.231 Alcohol dependence with withdrawal delirium Office Visit 11/14/2016 [facility] Miller Garner K85.20 Alcohol induced 2:34p Assoc,julia Dalton D.O. acute pancreatitis Hospitalists without necrosis or infct Office Visit 11/13/2016 [facility] Miller Garner K85.20 Alcohol induced 2:33p Assoc,pc Krystle D.O. acute pancreatitis Hospitalists without necrosis or infct N30.00 Acute cystitis without hematuria F10.231 Alcohol dependence with withdrawal delirium Office Visit 11/12/2016 [facility] Miller Garner K85.20 Alcohol induced 2:32p Assoc,julia Dalton D.O. acute pancreatitis Hospitalists without necrosis or infct F10.231 Alcohol dependence with withdrawal delirium Office Visit 11/12/2016 [facility] Samuel K85.20 Alcohol induced 10:38a Assocjulia M.D. acute pancreatitis Hospitalists without necrosis or infct M54.5 Low back pain F10.231 Alcohol dependence with withdrawal delirium Office Visit 11/11/2016 [facility] K85.20 Alcohol induced 10:38a Assoc,julia Finley M.D. acute pancreatitis Hospitalists without necrosis or infct M54.5 Low back pain F10.10 Alcohol abuse, uncomplicated Office Visit 11/10/2016 [facility] Navin K85.20 Alcohol induced 10:35a Assoc,julia Hawthorne N.PCarmina acute Hospitalists pancreatitis without necrosis or infct M54.5 Low back pain F10.10 Alcohol abuse, uncomplicated Office Visit 05/05/2013 10:00a Orthopedic Corinna Lares, 354.0 Carpal Tunnel Services Felicita [facility] [phone] Ganglion Tendon Sheath Plan of Treatment Future Appointment(s):06/15/2018 9:30 am - Slava Westbrook M.D. at [facility]05/13/2018 - Slava Westbrook M.D.G57.91 Unspecified mononeuropathy of right lower limbFollow up:4-5 [id number] Pain due to internal orthopedic prosthetic devices, implants
--- OUTSIDE RECORDS SUMMARY | 2018-05-26 13:07 | XMS REPORT ---
:1980 External Reference #:[id number] Author Organization [facility] Address [address] [place] [address] [place] [address] Phone [phone] Care Team Providers Name Role Phone Marc Ramey MD Primary Care Physician Unavailable Payers Type Date Identification Numbers Payment Provider Subscriber Commercial Policy Number: [id number] [employer] Medicaid Abby Carlton PayID: [id number] [place] [id number] Advance Directives Type Date Description Status Comment Other Directive 01/27/2017 Health Care Proxy Current and Verified Problems Date Description Provider Status Onset: 12/13/2016 Alcohol-induced acute pancreatitis Malina Blount, N.P. Active Onset: 12/13/2016 Mild intermittent asthma Malina Blount N.Lior Active Onset: 09/28/2017 Closed fracture of metatarsal bone Casey Yu MD Active Onset: 09/28/2017 Closed traumatic dislocation of Casey Yu MD Active tarsometatarsal joint Onset: 01/15/2018 Epigastric pain Glenda Melton D.O. 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 Active Onset: 01/21/2018 Gastroduodenitis Dane Morris MD Onset: 01/21/2018 Tobacco user Dane Morris MD Onset: 04/01/2018 Backache Glenda Melton D.O. Active [...] Use Currently consumes alcohol Drinks when watching [employer] once weekly. Recreational Drug Use Denies Drug [...] every 8 hours as needed nausea Nicotine 00 Active Patches 21mg/24HR Apply 1 24HR Patch Transdermal ly Every Day AT 800Am Melatonin ER Active Tablets 3mg 30tab 1 tab by ER s mouth at Varn, N.P. bedtime Omeprazole Active Capsules 40mg 1 by mouth Unknown / DR every day Oxycodone HCL Active Tablets 5mg 20tab 1 tab po s q4-6 hours sun WestbrookDCarmina Seroquel Active Tablets 25mg 30tab Take 1 R11.2 s Tablet By Varn, N.P. Mouth AT Bedtime Baclofen Active Tablets 10mg 45tab Take 1/2 Malina s Tablet By Varn, N.P. Mouth Every [...] prn - pain MDD 6 03/29 tabs ([facility] /2016 DC summary) Omeprazole Hx Capsules 40mg 1 by mouth Unknown /0000 DR every day - ([facility] DC 06/24 summary) [...] mouth - every day x 12/19 14 . with food. Methadone HCL Hx Tablets 10mg Take 1 Unknown /0000 Tablet By - Mouth Three 01/18 Times Daily Maximum Daily Dose Of 3 Per D [...] Form Strength Qnty SIG Indications Ordering Provider Depomedflori Administered Injection Slava 40MG Bashir Westbrook M.D. Immunizations CPT Code Status Date Vaccine Reaction Lot # 65637 Given 03/12/2018 Influenza Virus Vaccine, No immediate [id number] Quadrivalent, Split, reaction..jh Preservative Free 62932 Given 03/27/2014 Tdap - Tetanus/Diptheria/Acellular Pertussis 42131 Given 06/26/2011 Influenza Virus Vaccine, Quadrivalent, Split, Preservative Free 00292 Given 07/31/2009 Influenza Virus Vaccine, Quadrivalent, Split, Preservative Free 98775 Given 07/31/2009 Influenza Virus Vaccine, Quadrivalent, Split, Preservative Free 67719 Given 07/31/2009 Influenza Virus Vaccine, Quadrivalent, Split, Preservative Free 66803 Given 07/31/2009 Influenza Virus Vaccine, Quadrivalent, Split, Preservative Free 78113 Given 07/31/2009 Influenza Virus Vaccine, Quadrivalent, Split, Preservative Free 52447 Given 07/31/2009 Influenza Virus Vaccine, Quadrivalent, Split, Preservative Free 78658 Given 06/25/2007 Influenza Virus Vaccine, Quadrivalent, Split, Preservative Free 04752 Given 06/25/2007 Influenza Virus Vaccine, Quadrivalent, Split, Preservative Free 31021 Given 06/25/2007 Influenza Virus Vaccine, Quadrivalent, Split, Preservative Free 06015 Given 06/25/2007 Influenza Virus 3Yrs & Over 68968 Given 07/08/2004 Tetanus And Diptheria (Td) For Adult Use Preservative Free 97161 Given 07/08/2004 Measles Mumps And Rubella MMR Vital Signs Date Vital Result Comment 04/27/2018 Height 61 inches 5'1" Heart Rate 80 /min BP Systolic 130 mmHg BP Diastolic 82 mmHg Body Temperature 98.1 F Pain Level 8 03/23/2018 Height 61 inches 5'1" Weight 114.00 [...] Test Date Test Result H/L Range Note Laboratory test 04/12/2018 Surgical Pathology SEE RESULT BELOW 1 finding Laboratory test 03/28/2018 Potassium Redraw 3.8 mmol/L 3.5-5.0 finding Ast Redraw 39 U/L 13-39 CBC Auto Diff 03/28/2018 White Blood Count 11.6 10^3/uL High 3.5-10.8 Red Blood Count 4.75 10^6/uL 4.00-5.40 Hemoglobin 14.4 g/dL 12.0-16.0 Hematocrit 44 % 35-47 Mean Corpuscular Volume 92 fL 80-97 Mean Corpuscular Hemoglobin 30 pg 27-31 Mean Corpuscular HGB Conc 33 g/dL 31-36 Red Cell Distribution Width 16 % High 10.5-15 Platelet Count 139 10^3/uL Low 150-450 Mean Platelet Volume 8.6 um3 7.4-10.4 Abs Neutrophils 8.6 10^3/uL High 1.5-7.7 Abs Lymphocytes 1.7 10^3/uL 1.0-4.8 Abs Monocytes 1.1 10^3/uL High 0-0.8 Abs Eosinophils 0.1 10^3/uL 0-0.6 Abs Basophils 0.1 10^3/uL 0-0.2 Abs Nucleated RBC 0 10^3/uL Granulocyte % 74.2 % 38-83 Lymphocyte % 14.8 % Low 25-47 Monocyte % 9.5 % High 0-7 Eosinophil % 0.9 % 0-6 Basophil % 0.6 % 0-2 Nucleated Red Blood Cells % 0.1 Laboratory test finding 03/28/2018 Lactic Acid 1.0 mmol/L 0.5-2.0 2 Comp Metabolic Panel 03/28/2018 Sodium 135 mmol/L 135-145 Chloride 100 mmol/L Low 101-111 Co2 Carbon Dioxide 23 mmol/L 22-32 Glucose 84 mg/dL 70-100 Blood Urea Nitrogen 10 mg/dL 6-24 Creatinine 0.80 mg/dL 0.51-0.95 BUN/Creatinine Ratio 12.5 8-20 Calcium 9.5 mg/dL 8.6-10.3 Total Protein 7.7 g/dL 6.4-8.9 Albumin 4.4 g/dL 3.2-5.2 Globulin 3.3 g/dL 2-4 Albumin/Globulin Ratio 1.3 1-3 Total Bilirubin 1.00 mg/dL 0.2-1.0 Alkaline Phosphatase 158 U/L High 34-104 Alt 23 U/L 7-52 Egfr Non- 81.2 >60 Egfr 98.2 >60 3 Potassium TNP mmol/L 3.5-5.0 4 Anion Gap 12 mmol/L High 2-11 Ast TNP U/L 13-39 5 Laboratory test finding 03/28/2018 HCG < 0.60 mIU/mL 6 Troponin-I (TnI) 0.14 ng/mL High <0.04 7 Lipase 1276 U/L High 11.0-82.0 Inr/Protime 03/28/2018 Inr 0.92 0.77-1.02 Laboratory test finding 03/28/2018 Partial Thrombo Time 27.5 seconds 26.0 -36.3 PTT Urinalysis Profile 03/28/2018 Urine Color Yellow Urine Appearance Clear Urine Specific Eugene 1.039 High 1.010-1.030 Urine pH 7.0 5-9 Urine Urobilinogen Negative Negative Urine Ketones 2+ Negative Urine Protein Negative Negative Urine Leukocytes Negative Negative Urine Blood 3+ Negative Urine Nitrite Negative Negative Urine Bilirubin Negative Negative Urine Glucose Negative Negative Urine White Blood Cell Trace(0-5/hpf) Absent Urine Red Blood Cell Trace(0-2/hpf) Absent Urine Bacteria Absent Absent Urine Squamous Epithelial Cell Present Absent Laboratory test finding 03/28/2018 Alcohol < 10 mg/dL <10 Urine Culture And Sensitivities 03/28/2018 Urine Culture SEE RESULT BELOW 8 Urinalysis Profile 01/14/2018 Urine Color Yellow Urine Appearance Cloudy Urine Specific Eugene 1.018 1.010-1.030 Urine pH 6.0 5-9 Urine [...] >60 Egfr 91.6 >60 9 Laboratory test finding 01/14/2018 HCG < 0.60 mIU/mL 10 Lipase 3111 U/L High 11.0-82.0 Alcohol < 10 mg/dL <10 Urine Culture And 01/14/2018 Urine Culture SEE RESULT BELOW 11 Sensitivities Ua Routine 11/05/2017 Ua Specific Eugene 1010 Ua PH 6 Ua Color brown Ua Appera cloudy Ua WBC ++ Ua Protein + Ua Glucose ++ Ua Ketones neg. Ua Bilirubin neg. Ua Urobilinogen neg. Ua Nitrite neg. Ua Occult Blood about 250 Urine Culture And Sensitivities 11/05/2017 Urine Culture SEE RESULT BELOW 12 Urinalysis Profile 09/04/2017 Urine Color Yellow Urine Appearance Cloudy Urine Specific Eugene 1.021 1.010-1.030 Urine pH 6.0 5-9 Urine [...] And 09/04/2017 Urine Culture SEE RESULT BELOW 13 Sensitivities CBC Auto Diff 09/04/2017 White Blood [...] >60 Egfr 116.0 >60 14 Laboratory test finding 09/04/2017 Magnesium 2.1 mg/dL 1.9-2.7 Amylase 41 U/L 29-103 Lipase 34 U/L 11.0-82.0 CRP High Sensitivity 2.35 mg/L 15 Alcohol 54 mg/dL High <10 HCG < 0.60 mIU/mL 16 Troponin-I (TnI) 0.00 ng/mL <0.04 Laboratory test finding 06/24/2017 Lactic Acid 1.2 mmol/L 0.5-2.0 17 CBC Auto Diff 06/24/2017 White Blood Count [...] >60 Egfr 88.2 >60 18 Laboratory test finding 06/24/2017 Magnesium 2.1 mg/dL 1.9-2.7 Lipase 541 U/L High 11.0-82.0 Creatine Kinase(CK) 25 U/L 10-223 C Reactive Protein 1.94 mg/L < 5.00 19 HCG < 0.60 mIU/mL 20 Lipid Profile (Trig/Chol/HDL) 06/24/2017 Triglycerides 98 mg/dL 21 Cholesterol 166 mg/dL 22 HDL Cholesterol 49.4 mg/dL 23 LDL Cholesterol 97 mg/dL 24 Laboratory test finding 06/24/2017 Alcohol < 10 mg/dL <10 Urinalysis Profile 06/24/2017 Urine Color Straw Urine Appearance Cloudy Urine Specific Eugene 1.002 Low 1.010-1.030 Urine pH 6.0 5-9 [...] Low -2.0-2.0 25 Hco3 Arterial 19.8 mmol/L 19-31 CBC Auto [...] Egfr 95.3 >60 26 Laboratory test 06/12/2017 D Dimer Quantitative 262 ng/mL High Less Than 230 27 finding Amylase 50 U/L 29-103 Lipase < 10 U/L Low 11.0-82.0 C Reactive Protein 222.45 mg/L High < 5.00 28 Troponin-I (TnI) 0.03 ng/mL <0.04 Strep AB Anti Dnase B 06/12/2017 Anti Streptolysin O Antibody 121 IU/mL 0 - 530 Profile Anti-DNase B <74 U/mL 0 - 300 29 Urinalysis Profile 06/08/2017 Urine Color Red Urine Appearance Cloudy Urine pH TNP 5-9 30 Urine Urobilinogen TNP Negative 31 Urine Ketones TNP Negative 32 Urine Protein TNP Negative 33 Urine Leukocytes TNP Negative 34 Urine Blood TNP Negative 35 Urine Nitrite TNP Negative 36 Urine Bilirubin TNP Negative 37 Urine Glucose TNP Negative 38 Urine Specific Eugene 1.005 Low 1.010-1.030 Urine White Blood Cell 3+(>20/hpf) Absent Urine Red Blood Cell 3+(>10/hpf) Absent Urine Bacteria 1+ Absent Urine Squamous Epithelial Cell Present Absent CBC Auto Diff 06/08/2017 White Blood Count [...] U/L 11.0-82.0 CRP High Sensitivity 3.72 mg/L 39 HCG < 0.60 mIU/mL 40 Comp Metabolic Panel 06/08/2017 Sodium 134 mmol/L [...] 108.1 >60 41 Urine Culture And 06/08/2017 Urine Culture SEE RESULT BELOW 42 Sensitivities Comp Metabolic Panel 04/14/2017 Sodium 136 mmol/L [...] Egfr Non- 76.1 >60 Egfr 97.9 >60 43 Laboratory test finding 04/14/2017 Amylase 40 U/L 29-103 Lipase 40 U/L 11.0-82.0 Drug Abuse 20 Urine 04/13/2017 Urine Amphetamine Negative ng/mL 44 Urine Barbiturates Negative ng/mL 45 Urine Benzodiazepines Negative ng/mL 46 Urine Cocaine Negative ng/mL 47 Urine Phencyclidine Negative ng/mL Cutoff: 25 Urine Tetrahydrocannabinol Negative ng/mL Cutoff: 50 48 Creatinine, Urine 122.2 mg/dL Specific Eugene 1.004 pH 7.4 Oxidants Negative 49 Adulterants Comment Normal Codeine, Ur Not Detected ng/mL Cutoff: 25 50 Ftxrgob-5-nzsl-glucuronide, Ur Not Detected ng/mL 51 Morphine, Ur Not Detected ng/mL Cutoff: 25 52 Ngpfwnsk-3-gchg-glucuronide, U Not Detected ng/mL 53 6-monoacetylmorphine, Ur Not Detected ng/mL Cutoff: 25 54 Hydrocodone, Ur Not Detected ng/mL Cutoff: 25 55 Norhydrocodone, Ur Not Detected ng/mL Cutoff: 25 56 Dihydrocodeine, Ur Not Detected ng/mL Cutoff: 25 57 Hydromorphone, Ur Not Detected ng/mL Cutoff: 25 58 Ujfbcpwwoblxf5ysksdtyxrilllij Not Detected ng/mL 59 Oxycodone, Ur Present ng/mL Cutoff: 25 60 Noroxycodone, Ur Present ng/mL Cutoff: 25 61 Oxymorphone, Ur Not Detected ng/mL Cutoff: 25 62 Xqnevecltrb-8-wgmt-glucuronide Present ng/mL 63 Noroxymorphone, Ur Present ng/mL Cutoff: 25 64 Fentanyl, Ur Not Detected ng/mL Cutoff: 2 65 Norfentanyl, Ur Not Detected ng/mL Cutoff: 2 66 Meperidine, Ur Not Detected ng/mL Cutoff: 25 67 Normeperidine, Ur Not Detected ng/mL Cutoff: 25 68 Naloxone, Ur Not Detected ng/mL Cutoff: 25 69 Bgikkhmv-6-dfna-glucuronide, U Not Detected ng/mL 70 Methadone, Ur Not Detected ng/mL Cutoff: 25 71 Eddp, Ur Not Detected ng/mL Cutoff: 25 72 Propoxyphene, Ur Not Detected ng/mL Cutoff: 25 73 Norpropoxyphene, Ur Not Detected ng/mL Cutoff: 25 74 Tramadol, Ur Not Detected ng/mL Cutoff: 25 75 O-desmethyltramadol, Ur Not Detected ng/mL Cutoff: 25 76 Tapentadol, Ur Not Detected ng/mL Cutoff: 25 77 N-desmethyltapentadol, Ur Not Detected ng/mL Cutoff: 50 78 Waykgayovh-exvn-dwrvxbfhnqd, U Not Detected ng/mL 79 Buprenorphine, Ur Not Detected ng/mL Cutoff: 5 80 Norbuprenorphine, Ur Not Detected ng/mL Cutoff: 5 81 Norbuprenorphine glucuronide Not Detected ng/mL Cutoff: 20 82 Opioid Interpretation See Comment 83 Laboratory test finding 04/10/2017 TSH (Thyroid Stim Horm) 0.66 mcIU/mL 0.34-5.60 Vitamin B12 197 pg/mL 180-914 84 Glucose 101 mg/dL High 70-100 [...] Egfr Non- 98.5 >60 Egfr 126.6 >60 85 Laboratory test finding 12/15/2016 Lipase 32 U/L 11.0-82.0 Amylase 37 U/L 29-103 1 SEE RESULT BELOW Name: ABBY CARLTON Barrie : [address]: Slava Westbrook MD Acct: [id number] Unit: [id number] AGE: 37 Location: OR Re04/12/18 SEX: F Status: [facility] SPEC: [id number] EH: 04/12/[address] [facility] [address]: Slava Westbrook MD REQ: [id number] RECD: 04/12/18367 STATUS: SOUT _ ORDERED: LEVEL 1 FINAL DIAGNOSIS Foot, right, hardware removal: Foreign body (orthopedic hardware) (gross diagnosis) PRE-OPERATIVE DIAGNOSIS Hardware right foot GROSS DESCRIPTION The specimen is received fresh labeled, Hardware Right Foot, and consists of a 2.6 by up to 1.1 x 0.1 cm blue metallic plate with multiple ovoid holes. The following inscription is identified: [id number]. Received separately in the same container are five donnelly metallic threaded two partially threaded spline headed screws ranging from 2.0 x 0.2 cm to 3.2 x 0.2 cm. Per established hospital medical staff protocol, no tissue is submitted. Gross only. Signed by and Reported on: Lavern Hewitt MD 04/13/18 1142 END OF REPORT DEPARTMENT OF PATHOLOGY, [address] [place] [address] Francisco Marques M.D. Director [facility] # [id number] [address] [facility] Severe Sepsis and Septic Shock [...] 20 mIU/mL 7 Result TnIDx:0.14 Called to [id number] at: 22:53:12 by:[id number] Read back by: [id number] 8 SEE RESULT BELOW Name: ABBY CARLTON : [address]: Chasidy Ivy MD Acct: [id number] Unit: [id number] AGE: 37 Location: [place] [address] Re03/29/18 SEX: F Status: ADM IN SPEC: [id number] EH: 03/29/[address] [facility] [address]: Abdelrahman Collazo MD REQ: [id number] RECD: 03/29/18 STATUS: LOIDA MCKNIGHT DR: Malina Blount COACH DRIVER _ SOURCE: URINE SPDESC: ORDERED: Urine Culture Procedure Result Reported Site Urine Culture Final 03/30/18- 0812 ML No growth of clinically significant organisms * ML - Main Lab . END OF REPORT DEPARTMENT OF PATHOLOGY, [address] [place] [address] Francisco Marques M.D. 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 END OF REPORT DEPARTMENT OF PATHOLOGY, [address] [place] [address] Francisco Marques M.D. Director [facility] # [id number] 12 SEE RESULT BELOW Name: ABBY CARLTON : [address]: Malina Blount NP Acct: [id number] Unit: [id number] AGE: 37 Location: [facility] Re11/05/17 SEX: F Status: REG REF SPEC: [id number] EH: 11/05/17-[address]: Malina Blount NP REQ: [id number] RECD: 11/05/17 STATUS: COMP _ SOURCE: URINE [facility]: ORDERED: Urine Culture COMMENTS: [id number] Urine Source: Clean Catch Procedure Result Reported Site Urine Culture Final 11/07/17- 0843 ML Organism 1 ESCHERICHIA COLI [place] Count >100,000 (Many) CFU/ML 1. ESCHERICHIA COLI [...] . END OF REPORT DEPARTMENT OF PATHOLOGY, [address] [place] [address] Francisco Marques M.D. Director [facility] # [id number] 13 SEE RESULT BELOW Name: SHARAABBY A : [address]: Jose Lorenzo MD Acct: [id number] Unit: [id number] AGE: 37 Location: ED Re09/04/17 SEX: F Status: DEP ER SPEC: [id number] EH: 09/04/17-[address] [facility] [address]: Lavern CRUZ REQ: [id number] RECD: 09/04/17 STATUS: LOIDA MCKNIGHT DR: Leila Blount COACH DRIVER _ SOURCE: URINE SPDESC: ORDERED: Urine Culture Procedure Result Reported Site Urine Culture Final 09/06/17- 1010 ML Mixed iban; possible contamination. Suggest resubmission. * ML - Main Lab . END OF REPORT DEPARTMENT OF PATHOLOGY, [address] [place] [address] Francisco Marques M.D. Director [facility] # [id number] 14 Because ethnic data is not always [...] levels of up to 20 mIU/mL 17 [facility] Severe Sepsis and Septic Shock [...] Acute inflammation: >10.00 29 Test Performed by: [address] [address] 30 Unable to evaluate urinalysis dipstick results due to interfering color. Notified [id number] 1835 06/08/17. 31 Unable to evaluate urinalysis dipstick results due to interfering color. Notified [id number] 1835 06/08/17. 32 Unable to evaluate urinalysis dipstick results due to interfering color. Notified [id number] 1835 06/08/17. 33 Unable to evaluate urinalysis dipstick results due to interfering color. Notified [id number] 1835 06/08/17. 34 Unable to evaluate urinalysis dipstick results due to interfering color. Notified [id number] 1835 06/08/17. 35 Unable to evaluate urinalysis dipstick results due to interfering color. Notified [id number] 1835 06/08/17. 36 Unable to evaluate urinalysis dipstick results due to interfering color. Notified [id number] 1835 06/08/17. 37 Unable to evaluate urinalysis dipstick results due to interfering color. Notified [id number] 1835 06/08/17. 38 Unable to evaluate urinalysis dipstick results due to interfering color. Notified [id number] 1835 06/08/17. 39 Low risk: <1.00 Average [...] dialysis) 42 SEE RESULT BELOW Name: SHARAABBY A : [address]: Jose Lorenzo MD Acct: [id number] Unit: [id number] AGE: 36 Location: ED Re06/08/17 SEX: F Status: DEP ER SPEC: [id number] EH: 06/08/[address]: Lavern CRUZ REQ: [id number] RECD: 06/08/17 STATUS: LOIDA MCKNIGHT DR: [facility] Malina Blount COACH DRIVER _ SOURCE: URINE SPDESC: ORDERED: Urine Culture Procedure Result Reported Site Urine Culture Final 06/10/17- 0815 ML No growth of clinically significant organisms * ML - MAIN LAB (PSC1) . END OF REPORT * ML=Testing performed at Main Lab DEPARTMENT OF PATHOLOGY, [address] [place] [address] Francisco Marques M.D. Director [facility] # [id number] 43 Because ethnic data is not always [...] REFERENCE VALUE Cutoff: 100 52 Coco Schmid, Contin; Also a minor metabolite (10%) of codeine and can be seen in low concentrations (<2,000 ng/mL) with poppy seed ingestion. 53 Metabolite of morphine REFERENCE VALUE Cutoff: 100 54 Metabolite of heroin 55 Lortab, [place], Vicodin; Also a very minor metabolite of [...] oxycodone and several metabolites (noroxycodone, noroxymorphone, and autymwlgdbl-1-vrsq-glucuronide). Suspect use of oxycodone or possibly oxycodone and oxymorphone within the past three days. ADDITIONAL INFORMATION This test was developed and its performance characteristics determined by [facility] in a manner consistent with CLIA requirements. This test has not been cleared or approved by the U.S. Food and Drug Administration. Test Performed by: [facility] [address] [place] [address] 84 Normal Range 180 to 914 Indeterminate [...] dialysis) Procedures Date CPT Code Description Status 04/12/2018 85577 Implant Nerve End Into Bone Or Muscle Completed 04/12/2018 17853 Excision Neuroma, Cutaneous Nerve Completed 04/12/201813204 Removal Implant Deep Wire,Screw Nail,Abdiel Or Plate Completed 04/12/201838366 Removal Implant Deep Wire,Screw Nail,Abdiel Or Plate Completed 03/29/2018 31290 ECHO Transthorasic Realtime 2D W Doppler & Color Flow Completed Hosp 02/18/2018 35186 Injection,Anesthetic Agent, Other Peripheral Nerve Completed Branch 01/20/2018 47257 Endoscopy Upper GI Biopsy Completed 10/14/2017 14358 Short Leg Cast Completed 10/06/2017 11151 Short Leg Cast Completed 10/01/2017 31436 FX Tarsal Care Completed 10/01/2017 95342 FX Tarsal Care Completed 10/01/2017 97017 FX Metatarsal Care Completed 10/01/2017 23980 FX Metatarsal Care Completed 10/01/2017 87012 Open TX Metatarsal FX,Incl Intl Fixation When Performed Completed 10/01/2017 44484 Dislocation Tarsometatarsal JT W/Wo Fixation Open TX Completed 10/01/2017 03893 Dislocation Tarsometatarsal JT W/Wo Fixation Open TX Completed 10/01/2017 36585 Dislocation Tarsometatarsal JT W/Wo Fixation Open TX Completed 10/01/2017 20939 Dislocation Tarsometatarsal JT W/Wo Fixation Open TX Completed 06/12/2017 03939 ECHO Transthorasic Realtime 2D W Doppler & Color Flow Completed Hosp 06/12/2017 11012 EKG, Interpretation Only Completed Encounters Type Date Location Provider CPT E/M Dx Office Visit 04/01/2018 [facility] julia Denson, 56764 K85.20 11:13a Hospitalists D.OCarmina F41.9 F10.19 M54.9 Office Visit 03/31/2018 11:13a [facility] Chasidy Ivy 14799 K85.20 Assoc Hospital[facility]ohinder Mims E16.2 F10.19 F41.9 M54.9 Office Visit 03/30/2018 11:12a [facility] Chasidy Ivy 31348 K85.20 [facility] F10.19 E16.2 F41.9 Office Visit 03/29/2018 11:11a [facility] Chasidy Ivy 38981 K85.20 Assoc Juan Carlos Mims E16.2 F10.19 F41.9 Office Visit 03/23/2018 10:00a [facility] 22727 M79.671 Jesu Mims G57.91 Office Visit 03/12/2018 2:00p [facility] Internal Medicine Anh Yung.Lior 24880 R03.0 - [facility] M79.671 Z23 Office Visit 03/04/2018 9:15a [facility] 38573 G57.91 Jesu Mims S92.334D Office Visit 02/18/2018 10:15a [facility] Slava Westbrook 09850 G57.91 Of Jesu Mims Office Visit 02/03/2018 3:45p [place] [address] S93.324D Of Jesu S92.334D S92.321A S92.234A S92.224A S92.344A M79.671 Office Visit 01/21/2018 10:35a [facility] Edmundo Martin 61800 K85.20 Assoc,pc Hospitalists MD Fernanda K29.70 F10.10 F17.210 Office Visit 01/20/2018 7:00a [facility] [place] [address] R10.13 K85.20 K21.9 Office Visit 01/20/2018 10:35a [facility],pc Samuel Finley, 07831 R10.13 Hospitalists MHarsh K85.20 F10.10 Z72.0 Office Visit 01/19/2018 10:34a [facility], Samuel Finley, 45901 K85.20 Hospitalists MHarsh F10.10 R10.13 Z72.0 Office Visit 01/18/2018 10:34a [facility], Samuel Finley, 81324 K85.20 Hospitalists MHarsh R10.13 F10.10 Office Visit 01/17/2018 [facility] Janice Arango, 33038 R10.13 10:34a Assoc, COACH DRIVER Hospitalists K85.20 F10.10 Office Visit 01/16/2018 [facility] Janice Arango, 93131 R10.13 10:33a Assoc, COACH DRIVER Hospitalists K85.20 F10.10 Office Visit 01/15/2018 10:33a [facility],pc Glenda Melton, 46382 R10.13 Hospitalists D.OCarmina K85.20 Office Visit 11/05/2017 11:20a [facility] Internal Medicine Malina Blount, N.P. 22291 Z00.00 [facility] F33.9 J45.20 F17.210 N39.0 K21.9 S93.324D Office Visit 09/28/2017 3:45p [place] [address] S92.334A Of Dahlia.Connie S92.344A S93.324A Office Visit 09/22/2017 2:00p [place] [address] S92.334A Of Jesu S92.344A Office Visit 09/10/2017 9:00a [facility] Internal Medicine Malina Blount, N.P. 66711 F33.9 - [place] G89.4 Office Visit 07/29/2017 9:50a [facility] Internal Medicine Anastasia Cadet, 68667 M79.644 - Nolele Mims Z79.899 Office Visit 06/25/2017 9:00a [facility] [place] [address] J18.9 [place] M54.9 R79.9 R10.9 Office Visit 06/24/2017 [facility] Eller, N.P. 16489 K86.1 Hospitalists Office Visit 06/13/2017 7:16a [facility] Assoc, Norma Eller, N.P. 63212 J18.9 Hospitalists J45.20 Office Visit 06/12/2017 10:34a [facility] [place] [address] R06.02 Services Of [facility] N20.1 R00.0 R10.12 Office Visit 06/03/2017 11:20a [facility] Mitesh Kimball, [address] R07.89 - Noelle Mims Office Visit 04/13/2017 4:00p [facility] Malina Blount, N.P. 65021 K86.0 - [place] M54.5 Office Visit 03/26/2017 10:40a [facility] Malina Blount, N.P. 17462 M54.5 - [place] F41.1 K85.20 M79.2 Office Visit 03/08/2017 9:33a [facility] [place] [address] K85.20 Assoc, Hospitalists M54.5 J45.20 G89.29 Office Visit 03/07/2017 9:33a [facility] [place] [address] K85.20 Assoc, Hospitalists M54.5 J45.20 G89.29 Office Visit 03/06/2017 9:32a [facility] [place] [address] K85.20 Assoc, Hospitalists Felicita M54.5 J45.20 G89.29 Office Visit 02/27/2017 4:20p [facility] Malina Blount, N.P. 12312 M54.5 - [place] J45.901 Office Visit 01/27/2017 2:20p [facility] Malina Blount, N.P. 70793 R11.2 - [place] M54.5 F41.1 G47.00 B35.3 Office Visit 12/24/2016 3:00p [facility] Malina Blount, N.P. 62695 K85.90 - [place] R11.2 M54.5 Office Visit 12/10/2016 4:00p [facility] Malina Blount, N.P. 75726 J18.9 - [place] K85.90 R11.2 Office Visit 11/22/2016 8:29a [facility], Chasidy Ivy, 92821 J18.9 Hospitalists Felicita K85.90 Office Visit 11/21/2016 8:29a [facility], Chasidy Ivy, 18696 J18.9 Hospitalists Felicita M54.5 K85.90 J45.20 Office Visit 11/20/2016 8:28a [facility], Barbara Issa, 98517 J18.9 Hospitalists Felicita K85.90 Office Visit 11/19/2016 8:27a [facility], Barbara Issa, 79594 J18.9 Hospitalists Felicita M54.5 K85.90 Office Visit 11/18/2016 8:26a [facility] [place] [address] J18.9 Assoc, Hospitalists Felicita M54.5 K85.90 J45.20 Office Visit 11/15/2016 10:39a [facility] Jesus, 33636 K85.20 Assoc,julia Rangel M.D. N30.00 M54.5 F10.231 Office Visit 11/14/2016 2:34p [facility] Miller Garner 57551 K85.20 Hospitalists Philip Dalton Office Visit 11/13/2016 2:33p [facility] [place] Garner 18311 K85.20 Hospitalists Philip Dalton N30.00 F10.231 Office Visit 11/12/2016 2:32p [facility] [place] Garner 828[address] K85.20 Hospitalists Philip Dalton F10.231 Office Visit 11/12/2016 10:38a [facility],pc Samuel Finley, 31440 K85.20 Hospitalmohinder Mims M54.5 F10.231 Office Visit 11/11/2016 10:38a [facility],pc Samuel Finley, 99500 K85.20 Hospitalmohinder Mims M54.5 F10.10 Office Visit 11/10/2016 10:35a [facility], 36695 K85.20 Assoc, Hospitalists NGladys M54.5 F10.10 Office Visit 05/05/2013 10:00a [facility], [address] 354.0 Jesu Mims 727.42 Plan of Care Future Appointment(s):05/13/2018 10:30 am - Slava Westbrook M.D. at [facility]
[2018-05-26 15:20] LABS: Urine Appearance Cloudy; Urine Blood Negative (Negative); Urine Color Yellow; Urine Ketones Negative (Negative); Urine Protein Negative (Negative); Urine Red Blood Cell Absent (Absent); Urine Specific Gravity 1.013 (1.010-1.030); Urine Urobilinogen Negative (Negative); Urine White Blood Cell Trace(0-5/hpf) (Absent)
[2018-05-26] MEDS ORDERED: Ketorolac INJ* 60 MG/2 ML VIAL IM ONE (17:13)
--- NOTE | 2018-05-26 17:21 | ED ---
Back Pain - HPI Summary HPI Summary: Pt is a 37 y/o female who presents to the ED c/o back pain. 2 weeks ago she suddenly had intense, aching left shoulder pain. The pain now radiates to her lower back. She denies any injury to the site. The pain is worse with deep breaths. Pt also c/o a cough. She denies any fever or rash. Pt states she is on Gabapentin for a prior back injury. She states that neither Toradol nor morphine help the pain. Pt also currently has pancreatitis. - History of Current Complaint Chief Complaint: EDBackInjuryPain Stated Complaint: LEFT SHOULDER PAIN Time Seen by Provider: 05/26/18 16:38 Hx Obtained From: Patient Onset/Duration: Sudden Onset, Lasting Weeks - 2, Still Present Timing: Constant Back Pain Location: Is Discrete @ - left shoulder, Radiates To - Back Severity Currently: Severe Pain Intensity: 10 Pain Scale Used: 0-10 Numeric Character: Aching Aggravating Symptom(s): Other - Deep breaths Alleviating Symptom(s): Nothing Associated Signs And Symptoms: Positive: Other - Cough Related History: Previous Back Injury - Allergies/Home Medications Allergies/Adverse Reactions: Allergies Allergy/AdvReac Type Severity Reaction Status Date / Time azithromycin Allergy Severe Difficulty Verified 05/26/18 12:57 Breathing cephalexin [From Keflex] Allergy Severe Palpitation Verified 05/26/18 12:57 s ciprofloxacin Allergy Severe Difficulty Verified 05/26/18 12:57 Breathing codeine Allergy Severe Hives Verified 05/26/18 12:57 lorazepam Allergy Severe Altered Verified 05/26/18 12:57 Mental Status acetaminophen Allergy Intermediate Nausea And Verified 05/26/18 12:57 Vomiting PMH/Surg Hx/FS Hx/Imm Hx Endocrine/Hematology History: Reports: Hx Anemia - Hx OF YEARS AGO Denies: Hx Diabetes Cardiovascular History: Denies: Hx Hypercholesterolemia, Hx Hypertension, Other Cardiovascular Problems/Disorders Respiratory History: Reports: Hx Asthma - has an inhaler-doesn't use often Denies: Other Respiratory Problems/Disorders GI History: Reports: Hx Gastroesophageal Reflux Disease, Other GI Disorders - PANCREATITIS last admission 03/29/18-04/01/18 History: Reports: Hx Kidney Infection, Hx Kidney Stones, Other Problems/ Disorders - Urethral stent 2000-was at the time too much pressure on urethra Denies: Hx Renal Disease Musculoskeletal History: Reports: Hx Back Problems, Other Musculoskeletal History - right foot fracture repair-hardware in right foot Sensory History: Denies: Hx Contacts or Glasses, Hx Deafness, Hx Hearing Aid Opthamlomology History: Denies: Hx Contacts or Glasses Neurological History: Reports: Hx Headaches Denies: Other Neuro Impairments/Disorders Psychiatric History: Reports: Hx Anxiety - ON DAILY MEDS, Hx Depression - Hx OF NONE NOW, Hx Substance Abuse - alcohol Denies: Hx Eating Disorder, Hx of Violent Episodes Against Others - Surgical History Surgery Procedure, Year, and Place: 2000 Urethral stenting with [facility]- epidural. Screws in right foot Hx Anesthesia Reactions: No - Immunization History Date of Tetanus Vaccine: UTD Date of Influenza Vaccine: 03/2017 Infectious Disease History: No Infectious Disease History: Denies: Hx Clostridium Difficile, Hx Hepatitis, Hx Human Immunodeficiency Virus (HIV), Hx of Known/Suspected MRSA, Hx Shingles, Hx Tuberculosis, History Other Infectious Disease, Traveled Outside the [place] in Last 30 Days - Family History Known Family History: Positive: Other - cervical CA, brain tumor - Social History Alcohol Use: Weekly Alcohol Amount: drank on thanksgiving Hx Substance Use: No Substance Use Type: Reports: None Substance Use 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 Hx Tobacco Use: Yes Smoking Status (MU): Heavy Every Day Tobacco Smoker Type: Cigarettes Amount Used/How Often: 1 ppd 24 years Length of Time of Smoking/Using Tobacco: 20 YRS Have You Smoked in the Last Year: Yes Review of Systems Negative: Fever Positive: Cough Positive: Myalgia - Shoulder and back pain Negative: Rash All Other Systems Reviewed And Are Negative: Yes Physical Exam - Summary Physical Exam Summary: Appearance: Well appearing, no pain distress Skin: warm, dry, reflects adequate perfusion Head/face: normal Eyes: EOMI, OWEN ENT: normal Neck: supple, non-tender Respiratory: CTA, breath sounds present Cardiovascular: RRR, pulses symmetrical Abdomen: non-tender, soft Musculoskeletal: strength/ROM intact, tenderness to palpation of left scapula Neuro: normal, sensory motor intact, A&Ox3 Triage Information Reviewed: Yes Vital Signs On Initial Exam: Initial Vitals Temp Pulse Resp BP Pulse Ox 97.4 F 111 16 151/79 98 05/26/18 12:53 05/26/18 12:53 05/26/18 12:53 05/26/18 12:53 05/26/18 12:53 Vital Signs Reviewed: Yes Diagnostics - Vital Signs Vital Signs Temp Pulse Resp BP Pulse Ox 05/26/18 14:58 98.8 F 112 20 142/99 100 05/26/18 12:53 97.4 F 111 16 151/79 98 - Laboratory Lab Results: Lab Results 05/26/18 Range/Units Unknown Urine Color Yellow Urine Appearance Cloudy Urine pH 7.0 (5-9) Ur Specific [place] 1.013 (1.010-1.030) Urine Protein Negative (Negative) Urine Ketones Negative (Negative) Urine Blood Negative (Negative) Urine Nitrate Negative (Negative) Urine Bilirubin Negative (Negative) Urine Urobilinogen Negative (Negative) Ur Leukocyte Esterase 1+ A (Negative) Urine WBC (Auto) Trace(0-5/hpf) (Absent) Urine RBC (Auto) Absent (Absent) Ur Squamous Epith Cells Present A (Absent) Urine Bacteria Absent (Absent) Urine Glucose Negative (Negative) Lab Statement: Any lab studies that have been ordered have been reviewed, and results considered in the medical decision making process. - Radiology CXR Radiology Interpretation Completed By: Radiologist Summary of Radiographic Findings: No evidence for acute intrathoracic disease. ED physician reviewed radiology report. Shoulder XR Radiology Interpretation Completed By: Radiologist Summary of Radiographic Findings: Negative exam. ED physician reviewed radiology report. Back Pain Course/Dx - Course Course Of Treatment: Pt is a 37 y/o female who presents to the ED c/o back pain. 2 weeks ago she suddenly had intense, aching left shoulder pain. The pain now radiates to her lower back. She denies any injury to the site. The pain is worse with deep breaths. Pt also c/o a cough. She denies any fever or rash. Pt states she is on Gabapentin for a prior back injury. She states that neither Toradol nor morphine help the pain. Pt also currently has pancreatitis. A physical exam tenderness of left scapula. Final dx are shoulder pain and back pain. A CXR and shoulder XR were negative. In the course pt was given Toradol. UA received. Pt is discharged and is to F/U with orthopedics. She is agreeable with this plan. - Diagnoses Differential Diagnosis/HQI/PQRI: Positive: Arthritis, Fracture, Sprain Provider Diagnoses: Shoulder pain, Back pain Discharge - Sign-Out/Discharge Documenting (check all that apply): Patient Departure - Discharge - Discharge Plan Condition: Stable Disposition: HOME Prescriptions: Oxycodone HCl/Acetaminophen [Percocet] 1 tab PO TID #12 tab MDD 3 Patient Education Materials: Back Pain (ED) Referrals: Malina Blount, VIMAL [Primary Care Provider] - Casey uY MD [Medical Doctor] - 3 Days Additional Instructions: RETURN TO THE ED WITH ANY NEW OR WORSENING SYMPTOMS. - Billing Disposition and Condition Condition: STABLE Disposition: Home - Attestation Statements Document Initiated by Edelmiraibe: Yes Documenting Scribe: Shyanne Headley Provider For Whom Daniel is Documenting (Include Credential): Abdelrahman Collazo MD Scribe Attestation: Shyanne Kirkland scribed for Abdelrahman Collazo MD on 05/26/18 at 1816. Scribe Documentation Reviewed: Yes Provider Attestation: The documentation as recorded by the Shyanne cruz accurately reflects the service I personally performed and the decisions made by , Abdelrahman Collazo MD Status of Scribe Document: Viewed
[2018-05-26 18:23] VITALS: BP 125/104
== END 2018-05-26 18:22 | disposition home or self-care (01) ==
LOC: ED 12:51
DX: M25.512 Pain in left shoulder (principal); M54.5 Low back pain; R05 Cough; F41.9 Anxiety disorder, unspecified; Z88.6 Allergy status to analgesic agent; Z88.1 Allergy status to other antibiotic agents; Z88.5 Allergy status to narcotic agent; Z88.8 Allergy status to other drugs, medicaments and biological substances; F17.210 Nicotine dependence, cigarettes, uncomplicated
CPT/HCPCS: 71046; 81003; 81015; 87086; 96372; 99282; J1885

== ENCOUNTER 2018-05-28 11:46 | Observation (INO) | payer OTHER ==
--- NOTE | 2018-05-28 12:28 | ED ---
Abdominal Pain/Female - HPI Summary HPI Summary: A 37 y/o female brought in by [facility] ambulance presents to [facility] with a chief complaint of abd pain since 05/26/18. She describes the abd pain as sharp and burning and radiating up to her chest. She rates her pain as a constant 10/10 and claims that nothing alleviates her pain. She also c/o not being able to eat or drink due to N/V. She reports not sleeping for two days. She denies any abdominal surgical history. She has a Hx of pancreatitis but states that her current symptoms are not similar. Her LNMP was one month ago. She admits to being a smoker. - History of Current Complaint Chief Complaint: EDAbdPain Stated Complaint: ABD PAIN Time Seen by Provider: 05/28/18 11:57 Hx Obtained From: Patient, EMS Onset/Duration: Sudden Onset, Lasting Days, Still Present Timing: Constant Severity Initially: Severe Severity Currently: Severe Pain Intensity: 10 Pain Scale Used: 0-10 Numeric Location: Diffuse Radiates: Yes Radiates to: Chest Character: Sharp, Burning Aggravating Factor(s): Nothing Alleviating Factor(s): Nothing Associated Signs and Symptoms: Positive: Chest Pain, Nausea, Vomiting Allergies/Adverse Reactions: Allergies Allergy/AdvReac Type Severity Reaction Status Date / Time azithromycin Allergy Severe Difficulty Verified 05/28/18 11:52 Breathing cephalexin [From Keflex] Allergy Severe Palpitation Verified 05/28/18 11:52 s ciprofloxacin Allergy Severe Difficulty Verified 05/28/18 11:52 Breathing codeine Allergy Severe Hives Verified 05/28/18 11:52 lorazepam Allergy Severe Altered Verified 05/28/18 11:52 Mental Status acetaminophen Allergy Intermediate Nausea And Verified 05/28/18 11:52 Vomiting PMH/Surg Hx/FS Hx/Imm Hx Endocrine/Hematology History: Reports: Hx Anemia - Hx OF YEARS AGO Denies: Hx Diabetes Cardiovascular History: Denies: Hx Hypercholesterolemia, Hx Hypertension, Other Cardiovascular Problems/Disorders Respiratory History: Reports: Hx Asthma - has an inhaler-doesn't use often Denies: Other Respiratory Problems/Disorders GI History: Reports: Hx Gastroesophageal Reflux Disease, Other GI Disorders - PANCREATITIS last admission 03/29/18-04/01/18 History: Reports: Hx Kidney Infection, Hx Kidney Stones, Other Problems/ Disorders - Urethral stent 2000-was at the time too much pressure on urethra Denies: Hx Renal Disease Musculoskeletal History: Reports: Hx Back Problems, Other Musculoskeletal History - right foot fracture repair-hardware in right foot Sensory History: Denies: Hx Contacts or Glasses, Hx Deafness, Hx Hearing Aid Opthamlomology History: Denies: Hx Contacts or Glasses Neurological History: Reports: Hx Headaches Denies: Other Neuro Impairments/Disorders Psychiatric History: Reports: Hx Anxiety - ON DAILY MEDS, Hx Depression - Hx OF NONE NOW, Hx Substance Abuse - alcohol Denies: Hx Eating Disorder, Hx of Violent Episodes Against Others - Surgical History Surgery Procedure, Year, and Place: 2000 Urethral stenting with [facility]- epidural. Screws in right foot Hx Anesthesia Reactions: No - Immunization History Date of Tetanus Vaccine: UTD Date of Influenza Vaccine: 03/2017 Infectious Disease History: No Infectious Disease History: Denies: Hx Clostridium Difficile, Hx Hepatitis, Hx Human Immunodeficiency Virus (HIV), Hx of Known/Suspected MRSA, Hx Shingles, Hx Tuberculosis, History Other Infectious Disease, Traveled Outside the [place] in Last 30 Days - Family History Known Family History: Positive: Other - cervical CA, brain tumor - Social History Alcohol Use: Weekly Alcohol Amount: drank on thanksgi Hx Substance Use: No Substance Use Type: Reports: None Substance Use 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 Patient is not in any acute respiratory distress. HEAD AND FACE: Normocephalic EYES: PERRLA, EOMI x 2. EARS: Hearing grossly intact. MOUTH: Oropharynx within normal limits. NECK: Supple, trachea is midline, no adenopathy, no JVD, no carotid bruit. CHEST: Symmetric, no tenderness at palpation LUNGS: Clear to auscultation bilaterally. No wheezing or crackles. CVS: Regular rate and rhythm, S1 and S2 present, no murmurs or gallops appreciated. ABDOMEN: Soft, non-tender. Bowel sounds are normal. No abdominal abnormal pulsations. EXTREMITIES: Full ROM in all major joints, no edema, no cyanosis or clubbing. NEURO: Alert and oriented x 3. No acute neurological deficits. Speech is normal and follows commands. SKIN: Dry and warm Triage Information Reviewed: Yes Vital Signs On Initial Exam: Initial Vitals Temp Pulse Resp BP Pulse Ox 98.5 F 117 18 156/112 99 05/28/18 11:50 05/28/18 11:50 05/28/18 11:50 05/28/18 11:50 05/28/18 11:50 Vital Signs Reviewed: Yes Diagnostics - Vital Signs Vital Signs Temp Pulse Resp BP Pulse Ox 05/28/18 11:50 98.5 F 117 18 156/112 99 - Laboratory Result Diagrams: 05/29/18 05:31 05/29/18 05:30 Lab Statement: Any lab studies that have been ordered have been reviewed, and results considered in the medical decision making process. - CT abdomen/pelvis CT Interpretation Completed By: Radiologist Summary of CT Findings: Findings consistent with hepatic steatosis. Peripancreatic infiltration of fat. especially around the pancreas with thickening of the anterior pararenal fossa and lateral. conal fascia suggestive of acute pancreatitis. Correlation with laboratory values may BE. helpful. ED physician has reviewed this imaging report. Abdominal Pain Fem Course/Dx - Course Course Of Treatment: A 37 y/o female brought in by [facility] ambulance presents to [facility] with a chief complaint of abd pain since 05/26/18. Workup is remarkable with a CT abdomen/pelvis impression: Findings consistent with hepatic steatosis. Peripancreatic infiltration of fat. especially around the pancreas with thickening of the anterior pararenal fossa and lateral. conal fascia suggestive of acute pancreatitis. Correlation with laboratory values may BE. helpful. During the PE the pt was crying secondary to pain. Lab results obtained WNL. In the ED course the patient was given Morphine and Toradol IV. Dx : pancreatitis. The patient will be admitted. Case discussed with hospitalist, Dr. So. I discussed results with patient. The patient agrees with this plan. - Diagnoses Provider Diagnoses: Pancreatitis - Provider Notifications Discussed Care Of Patient With: Heydi So Time Discussed With Above Provider: 16:15 Instructed by Provider To: Admit As Inpatient Discharge - Sign-Out/Discharge Documenting (check all that apply): Patient Departure - Admit - Discharge Plan Condition: Stable Disposition: ADMITTED TO [facility] - Billing Disposition and Condition Condition: STABLE Disposition: Admitted to [facility] - Attestation Statements Document Initiated by Daniel: Yes Documenting Scribe: Francisco J Foley Provider For Whom Daniel is Documenting (Include Credential): Solomon Rey MD Scribe Attestation: IFrancisco J, scribed for Solomon Rey MD on 05/30/18 at 0157. Scribe Documentation Reviewed: Yes Provider Attestation: The documentation as recorded by the Francisco J cruz accurately reflects the service I personally performed and the decisions made by , Margarita Rey MD Status of Scribe Document: Viewed
[2018-05-28] MEDS ORDERED: NS 0.9% 1000 ML* 1,000 ML IV ONE (12:30)
[2018-05-28] MEDS ORDERED: Metoclopramide IV* 5 MG/ML 2 ML VIAL IV ONE (12:30)
[2018-05-28] MEDS ORDERED: Pantoprazole IV* 40 MG IV ONE (12:30)
[2018-05-28] MEDS ORDERED: Ketorolac INJ* 30 MG/ML 1 ML VIAL IV ONE (12:30)
[2018-05-28 13:13] LABS: ABS Basophils 0.1 10^3/ul (0-0.2); ABS Eosinophils 0.1 10^3/ul (0-0.6); ABS Lymphocytes 1.4 10^3/ul (1.0-4.8); ABS Monocytes 1.1 10^3/ul (0-0.8); ABS Nucleated RBC 0 10^3/ul; Eosinophil % 0.8 %; Hematocrit 42 % (35-47); Hemoglobin 14.1 g/dl (12.0-16.0); Lymphocyte % 8.8 %; Mean Corpuscular HGB Conc 33 g/dl (31-36); Mean Corpuscular Hemoglobin 32 pg (27-31); Mean Corpuscular Volume 95 fL (80-97); Mean Platelet Volume 9.7 fL (7.4-10.4); Nucleated Red Blood Cells % 0; Platelet Count 135 10^3/ul (150-450); Red Blood Count 4.49 10^6/ul (4.00-5.40); Red Cell Distribution Width 18 % (10.5-15); White Blood Count 15.6 10^3/ul (3.5-10.8)
[2018-05-28] MEDS ORDERED: Morphine VIAL* 4 MG/ML VIAL (1 ml vial) IV ONE (13:29)
[2018-05-28] MEDS ORDERED: Iohexol 300* (CONTRAST) 10 ML SDV IV ONE (13:55)
[2018-05-28] MEDS ORDERED: Ondansetron INJ* 2 MG/ML VIAL IV PRN (16:57)
[2018-05-28] MEDS ORDERED: PROCHLORPERAZINE INJ 5 MG/ML 2 ML VIAL IV PRN (17:02)
[2018-05-28] MEDS ORDERED: hydrOXYzine HCL TAB* 25 MG PO PRN (17:03)
[2018-05-28] MEDS ORDERED: Melatonin 3 MG TAB PO PRN (17:03)
[2018-05-28] MEDS ORDERED: Magnesium Sulfate IV* 3 GM in NS 0.9% 100 ML* 100 ML IVPB ONE (17:06)
[2018-05-28] MEDS ORDERED: Albuterol 2.5 MG/3 ML NEB.SOL* (0.083%) INH PRN (17:17)
[2018-05-28] MEDS: HYDROmorphone INJ1* 1 MG/ML SYRINGE IV SLOW PU PRN ×2 (17:48→22:56)
[2018-05-28] MEDS ORDERED: Omeprazole CAP* 20 MG PO SCH (18:00)
[2018-05-28] MEDS ORDERED: Mouth Piece, Nicotine* 1 EACH CARTRIDGE INH ONE (19:00)
[2018-05-28] MEDS: oxyCODONE TAB* 5 MG TAB PO PRN (19:02)
[2018-05-28] MEDS: Nicotine Inhaler* 10 MG AMP INH PRN ×2 (19:07→22:43)
[2018-05-28] MEDS: Gabapentin CAP(*) 300 MG PO SCH (20:17)
[2018-05-28] MEDS ORDERED: QUEtiapine TAB* 25 MG PO SCH (21:00)
--- NOTE | 2018-05-28 22:31 | HP ---
CC: Malina Blount NP * ADMISSION HISTORY AND PHYSICAL: DATE OF ADMISSION: 05/28/18 PRIMARY CARE PROVIDER: Malina Blount NP ATTENDING PHYSICIAN: Dr. Chasidy Ivy.* (DICTATED BY ANTHONY PRESLEY) CHIEF COMPLAINT: Epigastric pain x3 days. HISTORY OF PRESENT ILLNESS: Ms. Carlton is a 37-year-old female with past medical history significant for alcoholism with recurrent episodes of alcoholic pancreatitis and asthma as well as chronic back pain, who presents to the emergency department with pain consistent with her previous episodes of pancreatitis in her epigastrium in a band-like pattern across her upper abdomen radiating to her back. The patient states the pain is constant, fluctuates in severity from 7 to "greater than 10." The patient states that this started on Thursday or Thursday, she does not remember exactly, but that on Thursday and Thursday, she had some hard alcohol to drink. She states she drinks infrequently , when she does she drinks a lot. The patient is unable to quantify further. The patient knows that she has had issues with alcoholic pancreatitis in the past, but states she gets bored at home all by herself. The patient also smokes greater than a pack-a-day. The patient is on numerous pain medications at home. The patient has been vomiting. The patient denies hematemesis, coffee -ground emesis. The patient has not had a bowel movement since Thursday. The patient states there was no blood in the bowel movement and it was non- melanotic. The patient has not been taking her Zofran for her nausea. The patient most recently tried to eat spaghetti last night and was unable to finish more than 2 bites without extreme pain. The patient has shortness of breath, but this is at her baseline. The patient has an inhaler, which she uses infrequently mainly with activity in the cold air. The patient has not used it recently. The patient denies any recent weight loss. The patient states she has no abdominal pain in between her episodes of pancreatitis. The patient has been feeling dehydrated. The patient denies being dizzy when she stands up. She has not been making much urine and the urine she makes has been dark. The patient came into the emergency department previously for evaluation on 05/26/18 and was evaluated for back pain and sent home. Reports that her pain is worse than it was at that time. In the emergency department, the patient had a CT, which showed pancreatitis. The patient had an elevated bilirubin, elevated AST greater than ALT consistent with alcohol abuse, elevated CRP and elevated lipase. The patient's vital signs were stable and we were asked to evaluate for admission to the hospital. PAST MEDICAL HISTORY: Alcoholic pancreatitis, asthma, chronic back pain, anxiety, history of healthcare-associated pneumonia while admitted for pancreatitis treatment. PAST SURGICAL HISTORY: Two foot surgeries this year for tendon fixation and placement and removal of hardware. MEDICATIONS: On admission, the patient does not remember her medications very well. The ones she does remember are: 1. Gabapentin 900 mg p.o. t.i.d. 2. Baclofen 10 mg p.o. t.i.d. as needed. She uses this only every couple days. 3. Seroquel 25 mg p.o. at nighttime. 4. Hydroxyzine 25 mg p.o. four times daily as needed for anxiety. She states she uses this only at bedtime. 5. Zofran 4 mg ODT as needed 36 hours for abdominal pain. Other medications in the patient's medication reconciliation include: 1. Omeprazole 40 mg p.o. q.p.m. 2. Melatonin 3 mg p.o. at bedtime. 3. Oxycodone 5 to 15 mg p.o. q.4 hours. 4. Nicotine patch 20 mg p.o. q.24 hours. 5. Cranberry. 6. Biotin. ALLERGIES: AZITHROMYCIN, CEPHALEXIN, CIPROFLOXACIN, CODEINE, LORAZEPAM, TYLENOL. FAMILY HISTORY: The patient's father has prostate cancer, but is alive. The patient's mother is alive and healthy. The patient has 3 siblings, all of whom are healthy. The patient's maternal grandmother and maternal grandfather both of lung cancer. The patient's paternal grandmother of cancer of unknown type, and the patient's paternal grandfather when the patient's father was young and had no known history. SOCIAL HISTORY: The patient smokes more than pack a day and has for her whole adult life. The patient drinks alcohol infrequently, but binge drinks when she does alcohol. The patient denies any illicit drug use. 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 The patient is not . The patient has a boyfriend. The patient has 5 children. The patient's boyfriend, Ayan Valentine, will be her surrogate decision maker. REVIEW OF SYSTEMS: A 14-point review of systems was reviewed and is negative except as above in the HPI. PHYSICAL EXAMINATION GENERAL: The patient is a 37-year-old female, who appears stated age and is sitting comfortably in bed, in no acute distress. VITAL SIGNS: At the time of evaluation, temperature 98.5, pulse rate 101, respiratory rate 14, oxygen saturation 97% on room air, blood pressure 112/89. NECK: Supple, nontender. No lymphadenopathy. No carotid bruits auscultated. No JVD. RESPIRATORY: Clear to auscultation bilaterally. No wheezes, rales, or rhonchi. Good air exchange bilaterally. CARDIAC: Tachycardic. No clicks, murmurs, gallops, or rubs. Pulses are 2+ in the bilateral dorsalis pedis, posterior tibialis, and radial areas. No bilateral lower extremity edema noted. ABDOMEN: Soft. Tender to palpation in the bilateral upper quadrants. No hepatosplenomegaly palpable. Exam limited by pain. No abdominal bruits auscultated. No hepatojugular reflux. GENITOURINARY: No suprapubic or CVA tenderness. NEURO: Cranial nerves II through XII intact. No focal deficits. Alert and oriented x3. PSYCHIATRIC: Pleasant and cooperative. SKIN: Clean, dry, and intact. No rash. DIAGNOSTIC STUDIES/LAB DATA: White blood cell count of 13.6, hemoglobin 14.1, hematocrit 42, platelet count 135. Sodium 133, potassium 3.7, chloride 102, carbon dioxide 22, anion gap 9, BUN 8, creatinine 0.64, glucose 79, lactic acid 0.6, calcium 9.0, magnesium 1.7. Bilirubin 1.4, AST 211, ALT 96, alkaline phosphatase 162. CRP 142.58. Protein 6.6, albumin 3.8, lipase 493. Beta hCG less than 0.6. Studies: Abdomen and pelvis CT read as findings consistent with hepatic steatosis, peripancreatic infiltration of fat especially on the pancreas, thickening of the anterior pararenal fossa and lateral cone of fascia suggestive of acute pancreatitis, correlation with laboratory values may be helpful. ASSESSMENT AND PLAN/IMPRESSION: Ms. Carlton is a 37-year-old female with a past medical history significant for alcoholism with recurrent alcoholic pancreatitis , who presents to the emergency department with pain for 3 days consistent with previous episodes of pancreatitis and found to have an elevated lipase. The patient has been drinking and will be admitted to the hospital for a recurrence of acute pancreatitis. 1. Acute alcoholic pancreatitis. The patient has been admitted to the hospital 7 times in the past 2 years for alcoholic pancreatitis. The patient knows she should stop drinking, but continues to drink. The patient has LFT abnormalities consistent with alcoholic hepatitis. We will order an INR for both a MELD score and a Maddrey discriminant function. Steroids will be considered; however, it is unlikely that her discriminant function would not necessitate this. The patient will have a repeat lipase in the morning. The patient will be n.p.o. except for medications. Initially, we will have fluids at 150 mL an hour, Dilaudid and oxycodone for pain control. The patient will have a social work consult to discuss alcohol abstinence resources, though the patient is unlikely to abstain from alcohol. The patient's quetiapine could not be held as she is on this at all times. We will check triglycerides in case this is contributing to her alcoholism. The patient does eat a high fat diet. 2. Alcoholic hepatitis. The patient's AST and ALT are elevated, AST much greater than ALT. The patient has evidence of hepatic steatosis on CT. As above, we will calculate Maddrey discriminant function and MELD score. The patient should follow up for advanced imaging to determine the extent of her hepatic steatosis and possible cirrhosis and follow up from there. 3. Chronic back pain. The patient will have Dilaudid and oxycodone for pain control. The patient will also be continued on her gabapentin. 4. Asthma. The patient will have albuterol inhalers as needed. The patient does not need to use her albuterol frequently and is not currently in exacerbation. 5. Anxiety. Continue hydroxyzine and Seroquel. 6. DVT prophylaxis: The patient is a low risk and will have SCDs. 7. Fluids, electrolytes, and nutrition: The patient will be n.p.o. except for meds as above and have fluids at 150 mL an hour. 8. Code status: The patient would like to be a full code. The patient's surrogate decision maker will be her boyfriend, Ayan Valentine, as above. 9. Disposition: The patient is admitted to observation. TIME SPENT: Approximately 50 minutes were spent on the admission of this patient, 30 of which was spent [id number] with the patient obtaining history and physical and discussing treatment plan. Plan was discussed with my attending, Dr. Chasidy Ivy, and she is in agreement. ANTHONY PRESLEY [id number]/CPS #: [id number]
[2018-05-28] MEDS: Baclofen TAB* 10 MG PO SCH (22:42)
[2018-05-29] MEDS: oxyCODONE TAB* 5 MG TAB PO PRN ×3 (01:31→13:28)
[2018-05-29] MEDS: HYDROmorphone INJ1* 1 MG/ML SYRINGE IV SLOW PU PRN ×4 (04:03→16:07)
[2018-05-29 06:04] LABS: Urine Appearance Clear; Urine Blood Negative (Negative); Urine Color Yellow; Urine Ketones 2+ (Negative); Urine Protein Negative (Negative); Urine Red Blood Cell Trace(0-2/hpf) (Absent); Urine Specific Gravity 1.024 (1.010-1.030); Urine Urobilinogen Negative (Negative); Urine White Blood Cell 2+(11-20/hpf) (Absent)
[2018-05-29 06:16] LABS: ABS Basophils 0.1 10^3/ul (0-0.2); ABS Eosinophils 0.3 10^3/ul (0-0.6); ABS Lymphocytes 1.5 10^3/ul (1.0-4.8); ABS Monocytes 0.8 10^3/ul (0-0.8); ABS Neutrophils 7.2 10^3/ul (1.5-7.7); ABS Nucleated RBC 0 10^3/ul; Hematocrit 38 % (35-47); Hemoglobin 12.1 g/dl (12.0-16.0); Lymphocyte % 15.2 %; Mean Corpuscular HGB Conc 32 g/dl (31-36); Mean Corpuscular Hemoglobin 32 pg (27-31); Mean Corpuscular Volume 97 fL (80-97); Mean Platelet Volume 9.3 fL (7.4-10.4); Nucleated Red Blood Cells % 0; Platelet Count 110 10^3/ul (150-450); Red Blood Count 3.85 10^6/ul (4.00-5.40); Red Cell Distribution Width 18 % (10.5-15); White Blood Count 9.8 10^3/ul (3.5-10.8)
[2018-05-29 06:29] LABS: INR 0.98 (0.77-1.02)
[2018-05-29] MEDS ORDERED: Dextrose 50% Syringe 50 ML* 25 GM/50 ML SYRINGE IV PUSH PRN (06:56)
[2018-05-29] MEDS: Gabapentin CAP(*) 300 MG PO SCH ×2 (07:20→13:27)
[2018-05-29] MEDS: Nicotine Inhaler* 10 MG AMP INH PRN ×3 (07:21→15:19)
[2018-05-29] MEDS: Baclofen TAB* 10 MG PO SCH ×2 (07:21→13:28)
[2018-05-29] MEDS ORDERED: Nicotine PATCH 21 MG/24 HR* PATCH TRANSDERM SCH (09:00)
[2018-05-29 16:01] VITALS: BP 132/83
[2018-05-29] MEDS ORDERED: Nicotine Patch Removal NOTE PATCH OFF SCH (21:00)
--- NOTE | 2018-05-31 10:42 | DS ---
CC: Malina Blount NP * DISCHARGE SUMMARY: DATE OF ADMISSION: 05/28/18 DATE OF DISCHARGE: 05/29/18 PRIMARY CARE PROVIDER: Malina Blount NP. MY ATTENDING WHILE IN THE HOSPITAL: Dr. Michael.* (DICTATED BY ANTHONY PRESLEY) PRIMARY DISCHARGE DIAGNOSIS: Acute alcoholic pancreatitis. SECONDARY DISCHARGE DIAGNOSES: 1. Chronic back pain. 2. Mild intermittent asthma. 3. Numerous admissions for acute pancreatitis. STUDIES DONE WHILE IN THE HOSPITAL: Abdomen and pelvis CT from 05/28/18 shows findings consistent with hepatic steatosis, peripancreatic infiltration of fat especially around the pancreas with thickening of the anterior pararenal fossa and lateral cone of fascia suggestive of acute pancreatitis. Correlation with laboratory values may be helpful. Electrocardiogram shows normal sinus rhythm, otherwise unremarkable, normal QTC. MEDICATIONS AT DISCHARGE: 1. Melatonin 3 mg p.o. at bedtime as needed. 2. Hydroxyzine 25 mg p.o. q.p.m. as needed for insomnia. 3. Omeprazole 40 mg p.o. q.p.m. 4. Baclofen 5 mg p.o. q.8 hours as needed. 5. Quetiapine 25 mg p.o. at bedtime. 6. Zofran 4 mg p.o. q.8 hours as needed for nausea. 7. Gabapentin 900 mg p.o. t.i.d. 8. Oxycodone 10 mg p.o. q.6 hours as needed x15 tabs. HOSPITAL COURSE: This is a brief summary of the patient's presentation. For more details, please see history and physical from ANTHONY Presley, on . In brief, the patient is a 37-year-old female with past medical history significant for the above, who came in with approximately 3 days of severe abdominal pain in her upper abdomen, radiating to her back, fluctuating severity making it impossible for her to eat or drink. The patient had several alcoholic beverages on the day before it began. The patient did not have any other complications including GI bleed. The patient was still passing flatus. The patient had elevated liver enzymes and an elevated lipase. The patient was made n.p.o., admitted to the hospital and given IV as well as p.o. pain control. The patient's symptoms subsided quickly with her appetite returning. Her blood pressure stayed within normal limits. Her laboratory data was relatively unremarkable except for hypoglycemia in the setting of being n.p.o., which resolved with glucose administration. The patient's lipase normalized quickly. The patient had no signs of UTI. The patient was able to eat a low- fat dinner on the evening of 05/29/18 and have her pain controlled with oral medications only. The patient was stable and amenable for discharge on 05/29/18. PHYSICAL EXAMINATION ON THE DAY OF DISCHARGE: General: The patient is a 37- year- old female, who appears stated age, sitting comfortably in bed, in no acute distress. Vital Signs: Temperature 97.3, pulse rate 91, respiratory rate 16, oxygen saturation 95% on room air, blood pressure 132/83. HEENT: Head normocephalic, atraumatic. Sclerae anicteric. No conjunctival injection. Nasal mucosa moist. Oral mucosa moist. No oropharyngeal erythema, discharge, or exudates. Neck: Supple, nontender, no lymphadenopathy. No carotid bruits auscultated. No JVD. Cardiac: Regular rate and rhythm. No clicks, murmurs, gallops, or rubs. Pulses 2+ bilaterally in dorsalis pedis, posterior tibialis, and radial areas. Respiratory: Clear to auscultation bilaterally. No wheezes , rales, or rhonchi. Good air exchange bilaterally. Abdomen: Soft. Tender to palpation over the bilateral upper quadrants without rebound or guarding. No hepatojugular reflux. No abdominal bruits auscultated. Genitourinary: No suprapubic or CVA tenderness. Skin: Clean, dry, and intact. No rash. Neuro: Cranial nerves II through XII intact. No focal deficits. Alert and oriented x3. Psychiatric: Pleasant and cooperative. DISCHARGE PLAN: The patient will be discharged to home with oral pain medication with a low-fat diet, which she can advance as tolerated. Importance of remaining abstinent from alcohol has been stressed with the patient and she is in understanding and is motivated to engage in outpatient alcohol and drug rehab due to this being a necessary stipulation for retaining custody of her children. The patient states; however, that she needs to be off all pain medications for this and that the plan is to do this after she has resolved this episode of acute pancreatitis. The patient, of note, specifically requested a limited supply of narcotics to expedite this process. The patient is to follow up with her primary care provider within 1 week for general medical management. The patient should return to the hospital for alarming symptoms such as severe abdominal pain, inability to tolerate p.o. intake, passing out, chest pain, severe shortness of breath, or wheezing or other alarming symptoms. TIME SPENT: Approximately 60 minutes were spent on the discharge of this patient, 45 of which was spent [id number] with the patient obtaining history and physical and discussing treatment plan. ANTHONY PRESLEY [id number]/CPS #: [id number] LILI
== END 2018-05-29 18:13 | disposition home or self-care (01) | DRG 282 ==
LOC: ED 11:46 → MEDTELE 16:58 → OBSVTOIN 05-29 09:00 → INTOOBSV 05-29 09:00 → UNDODISIN 05-29 18:13
PROVIDERS: ADMIT Internal Medicine; ATTEND Internal Medicine
DX: K85.20 Alcohol induced acute pancreatitis without necrosis or infection (principal); J45.909 Unspecified asthma, uncomplicated; K21.9 Gastro-esophageal reflux disease without esophagitis; F41.9 Anxiety disorder, unspecified; F32.9 Major depressive disorder, single episode, unspecified; K70.10 Alcoholic hepatitis without ascites; K76.0 Fatty (change of) liver, not elsewhere classified; F17.210 Nicotine dependence, cigarettes, uncomplicated; G89.29 Other chronic pain; M54.9 Dorsalgia, unspecified; Z87.01 Personal history of pneumonia (recurrent); Z88.5 Allergy status to narcotic agent; Z88.1 Allergy status to other antibiotic agents; Z88.8 Allergy status to other drugs, medicaments and biological substances; Z80.8 Family history of malignant neoplasm of other organs or systems; Z87.442 Personal history of urinary calculi; Z80.42 Family history of malignant neoplasm of prostate; Z80.1 Family history of malignant neoplasm of trachea, bronchus and lung
CPT/HCPCS: 36415; 74177; 80053; 80061; 81003; 81015; 83605; 83690; 83735; 84100; 84702; 85025; 85610; 86140; 87086; 93005; 99283; A9270-GY; J1170; J1885; J2270; J2765; J3475; Q9967

== ENCOUNTER 2018-07-27 19:44 | Inpatient (IN) | payer OTHER ==
--- NOTE | 2018-07-27 20:14 | ED ---
Abdominal Pain/Female - HPI Summary HPI Summary: Pt is a 37 y/o female who presents to the ED c/o abdominal pain. Shes had constant worsening epigastric pain beginning 3-4 days ago. Pt has a history of recurring pancreatitis, and states this feels similar to her past episodes. Her last admission for pancreatitis was 03/29/18. She has a hx of alcohol abuse, and last drank 4 days ago. Pt is unsure how much alcohol she consumed. She rates her current pain as a 10/10 in severity. Pt denies any N/V/D, hematochezia, or fever. She denies any hx of abdominal surgeries. She was in treatment for alcohol abuse, but she stopped going because she feared her use of pain killers for her broken foot would be used against her. LNMP 1 week ago. - History of Current Complaint Chief Complaint: EDAbdPain Stated Complaint: ABD PAIN Time Seen by Provider: 07/27/18 20:08 Hx Obtained From: Patient Onset/Duration: Gradual Onset, Lasting Days - 3-4, Worse Since Timing: Constant Severity Currently: Severe Pain Intensity: 10 Pain Scale Used: 0-10 Numeric Location: Epigastric Radiates: No Aggravating Factor(s): Other: - Alcohol use Alleviating Factor(s): Nothing Associated Signs and Symptoms: Negative: Fever, Blood in Stool, Nausea, Vomiting , Diarrhea Simlar Episode/Dx as:: pancreatitis Allergies/Adverse Reactions: Allergies Allergy/AdvReac Type Severity Reaction Status Date / Time azithromycin Allergy Severe Difficulty Verified 07/27/18 19:56 Breathing cephalexin [From Keflex] Allergy Severe Palpitation Verified 07/27/18 19:56 s ciprofloxacin Allergy Severe Difficulty Verified 07/27/18 19:56 Breathing codeine Allergy Severe Hives Verified 07/27/18 19:56 lorazepam Allergy Severe Altered Verified 07/27/18 19:56 Mental Status acetaminophen Allergy Intermediate Nausea And Verified 07/27/18 19:56 Vomiting Home Medications: Home Medications Ranitidine HCl 07/27/18 [History] PMH/Surg Hx/FS Hx/Imm Hx Endocrine/Hematology History: Reports: Hx Anemia - Hx OF YEARS AGO Denies: Hx Diabetes Cardiovascular History: Denies: Hx Hypercholesterolemia, Hx Hypertension, Other Cardiovascular Problems/Disorders Respiratory History: Reports: Hx Asthma - has an inhaler-doesn't use often Denies: Other Respiratory Problems/Disorders GI History: Reports: Hx Gastroesophageal Reflux Disease, Other GI Disorders - PANCREATITIS last admission 03/29/18-04/01/18 History: Reports: Hx Kidney Infection, Hx Kidney Stones, Other Problems/ Disorders - Urethral stent 2000-was at the time too much pressure on urethra Denies: Hx Renal Disease Musculoskeletal History: Reports: Hx Back Problems, Other Musculoskeletal History - right foot fracture repair-hardware in right foot Sensory History: Denies: Hx Contacts or Glasses, Hx Deafness, Hx Hearing Aid Opthamlomology History: Denies: Hx Contacts or Glasses Neurological History: Reports: Hx Headaches Denies: Other Neuro Impairments/Disorders Psychiatric History: Reports: Hx Anxiety - ON DAILY MEDS, Hx Depression - Hx OF NONE NOW, Hx Substance Abuse - alcohol Denies: Hx Eating Disorder, Hx of Violent Episodes Against Others - Surgical History Surgery Procedure, Year, and Place: 2000 Urethral stenting with [facility]- epidural. Screws in right foot Hx Anesthesia Reactions: No - Immunization History Date of Tetanus Vaccine: UTD Date of Influenza Vaccine: 03/2017 Infectious Disease History: No Infectious Disease History: Denies: Hx Clostridium Difficile, Hx Hepatitis, Hx Human Immunodeficiency Virus (HIV), Hx of Known/Suspected MRSA, Hx Shingles, Hx Tuberculosis, History Other Infectious Disease, Traveled Outside the [place] in Last 30 Days - Family History Known Family History: Positive: Other - cervical CA, brain tumor - Social History Alcohol Use: Weekly Alcohol Amount: ETOH use x 4 days ago Hx Substance Use: No Substance Use Type: Reports: None 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 Negative: Vomiting, Diarrhea, Nausea, Other - hematochezia All Other Systems Reviewed And Are Negative: Yes Physical Exam - Summary Physical Exam Summary: Appearance: Well appearing, no pain distress Skin: warm, dry, reflects adequate perfusion Head/face: normal Eyes: EOMI, OWEN ENT: mucous membranes moist Neck: supple, non-tender Respiratory: CTA, breath sounds present Cardiovascular: RRR, pulses symmetrical Abdomen: soft, moderate-severe epigastric tenderness Bowel Sounds: present Musculoskeletal: normal, strength/ROM intact Neuro: normal, sensory motor intact, A&Ox3 Triage Information Reviewed: Yes Vital Signs On Initial Exam: Initial Vitals Temp Pulse Resp BP Pulse Ox 97.5 F 136 18 174/112 99 07/27/18 19:54 07/27/18 19:54 07/27/18 19:54 07/27/18 19:54 07/27/18 19:54 Vital Signs Reviewed: Yes Diagnostics - Vital Signs Vital Signs Temp Pulse Resp BP Pulse Ox 07/27/18 19:54 97.5 F 136 18 174/112 99 - Laboratory Result Diagrams: 07/27/18 20:15 07/27/18 20:15 Lab Statement: Any lab studies that have been ordered have been reviewed, and results considered in the medical decision making process. - CT CT A/P CT Interpretation Completed By: Radiologist Summary of CT Findings: Findings consistent with acute pancreatitis. No loculated fluid collection. Since prior CT study of 03/29/2018, the inflammatory changes involving the pancreas are more pronounced. ED physician reviewed radiology report. Abdominal Pain Fem Course/Dx - Course Course Of Treatment: Nurse's notes reviewed. Patient with epigastric discomfort and history of recent alcohol use. History also of recurring alcoholic pancreatitis. No pain in the lower abdomen on exam. Lipase is grossly elevated. CT scan negative for acute findings. Discussed with the hospitalist who will admit. Patient's pain is much improved. - Diagnoses Differential Diagnosis: Positive: Bowel Obstruction, Gall Bladder Disease, Pancreatitis, , Urinary Tract Infection Provider Diagnoses: Alcoholic pancreatitis, Epigastric pain, Dehydration - Provider Notifications Discussed Care Of Patient With: Edie Bowles Time Discussed With Above Provider: 21:48 Instructed by Provider To: Admit As Inpatient - Critical Care Time Critical Care Time: 30-74 min - CCT is EXCLUSIVE of separately billable procedures. Discharge - Sign-Out/Discharge Documenting (check all that apply): Patient Departure - Admit - Discharge Plan Condition: Stable Disposition: ADMITTED TO [facility] - Billing Disposition and Condition Condition: STABLE Disposition: Admitted to [facility] - Attestation Statements Document Initiated by Scribe: Yes Documenting Scribe: Shyanne Headley Provider For Whom Scribe is Documenting (Include Credential): Arley Mason MD Scribe Attestation: Shyanne Kirkland, scribed for Arley Mason MD on 07/28/18 at 0120. Scribe Documentation Reviewed: Yes Provider Attestation: The documentation as recorded by the scribe, Shyanne Headley accurately reflects the service I personally performed and the decisions made by me, Arley Mason MD Status of Scribe Document: Viewed
[2018-07-27] MEDS ORDERED: HYDROmorphone INJ* 2 MG/ML CARPUJECT SYRINGE IV SLOW PU ONE (20:16)
[2018-07-27] MEDS ORDERED: NS 0.9% 1000 ML** 1,000 ML IV ONE ×2 (20:16→21:16)
[2018-07-27] MEDS ORDERED: DiMENhydriNATE IV* 50 MG/ML VIAL IV PUSH ONE (20:16)
[2018-07-27] MEDS ORDERED: HYDROmorphone INJ1* 1 MG/ML SYRINGE ONE (20:26)
[2018-07-27 20:29] LABS: ABS Basophils 0.1 10^3/ul (0-0.2); ABS Eosinophils 0.1 10^3/ul (0-0.6); ABS Lymphocytes 1.8 10^3/ul (1.0-4.8); ABS Monocytes 1.2 10^3/ul (0-0.8); ABS Neutrophils 14.7 10^3/ul (1.5-7.7); ABS Nucleated RBC 0 10^3/ul; Eosinophil % 0.4 %; Hematocrit 48 % (35-47); Hemoglobin 15.9 g/dl (12.0-16.0); Lymphocyte % 10.3 %; Mean Corpuscular HGB Conc 33 g/dl (31-36); Mean Corpuscular Hemoglobin 32 pg (27-31); Mean Corpuscular Volume 98 fL (80-97); Mean Platelet Volume 8.9 fL (7.4-10.4); Nucleated Red Blood Cells % 0; Platelet Count 247 10^3/ul (150-450); Red Cell Distribution Width 15 % (10.5-15); White Blood Count 17.8 10^3/ul (3.5-10.8)
[2018-07-27 20:42] LABS: Urine Appearance Cloudy; Urine Bacteria Absent (Absent); Urine Bilirubin Negative (Negative); Urine Blood Negative (Negative); Urine Color Yellow; Urine Glucose Negative (Negative); Urine Ketones 2+ (Negative); Urine Nitrite Negative (Negative); Urine Protein 1+(30 mg/dL) (Negative); Urine Red Blood Cell Absent (Absent); Urine Specific Gravity 1.021 (1.010-1.030); Urine Squamous Epithelial Cell Present (Absent); Urine Urobilinogen Negative (Negative); Urine White Blood Cell Trace(0-5/hpf) (Absent)
[2018-07-27 20:45] LABS: Albumin 4.7 g/dL (3.2-5.2); Albumin/Globulin Ratio 1.3 (1-3); BUN/Creatinine Ratio 9.6 (8-20); C Reactive Protein 16.08 mg/L (<8.01); Calcium 9.5 mg/dL (8.6-10.3); EGFR African American 94.1 (>60); EGFR Non-African American 77.8 (>60); Globulin 3.6 g/dL (2-4); Potassium 4.1 mmol/L (3.5-5.0); Total Bilirubin 0.8 mg/dL (0.2-1.0); Total Protein 8.3 g/dL (6.4-8.9)
[2018-07-27 20:52] LABS: HCG Pregnancy 0.8 mIU/mL
[2018-07-27 20:57] LABS: Alcohol < 10 mg/dL (<10)
[2018-07-27] MEDS ORDERED: Pantoprazole IV* 40 MG IV ONE (21:16)
[2018-07-27] MEDS ORDERED: Iohexol 300* (CONTRAST) 10 ML SDV IV ONE (21:36)
[2018-07-27 22:02] LABS: LDH 189 U/L (140-271)
[2018-07-27] MEDS ORDERED: Ondansetron INJ* 2 MG/ML VIAL IV PRN (22:50)
[2018-07-27] MEDS ORDERED: Al Hydrox/Mg Hydrox/Simet LIQ* 30 ML UDC PO PRN (22:50)
[2018-07-27] MEDS ORDERED: Senna TAB PO PRN (22:50)
[2018-07-27] MEDS ORDERED: Docusate CAP* 100 MG PO PRN (22:50)
[2018-07-27] MEDS ORDERED: HYDROmorphone INJ* 0.5 MG/0.5 ML SYRINGE IV SLOW PU PRN (22:53)
[2018-07-27] MEDS ORDERED: Baclofen TAB* 10 MG PO PRN (22:53)
[2018-07-27] MEDS ORDERED: Pantoprazole TAB * 40 MG TAB PO SCH (23:00)
[2018-07-28] MEDS ORDERED: Piperacillin/Tazobac ADVAN(*) 3.375 GM in NS 0.9% 100 ML* 100 ML IVPB ONE (00:24)
--- NOTE | 2018-07-28 00:25 | PN ---
Progress Note - Progress Note Date of Service: 07/28/18 Note: US shows appendicits. CT scan showed normal appendix. Patient does not have RLQ tenderness. More diffuse and epigastric region. Will start Zosyn and contact surgery.
[2018-07-28] MEDS ORDERED: Zosyn per Pharmacy* NOTE FOLLOW UP SCH (01:00)
[2018-07-28] MEDS: HYDROmorphone INJ1* 1 MG/ML SYRINGE IV SLOW PU PRN ×5 (01:13→21:21)
[2018-07-28] MEDS: NS 0.9% 1000 ML** 1,000 ML IV SCH ×4 (01:18→21:24)
[2018-07-28] MEDS: hydrOXYzine HCL TAB* 25 MG PO SCH ×3 (01:27→21:22)
[2018-07-28] MEDS: QUEtiapine TAB* 25 MG PO SCH ×2 (01:27→21:22)
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
[2018-07-28] MEDS ORDERED: Mouth Piece, Nicotine* 1 EACH CARTRIDGE INH ONE (02:00)
[2018-07-28] MEDS: Gabapentin CAP(*) 300 MG PO SCH ×4 (02:07→21:22)
[2018-07-28] MEDS: Nicotine Inhaler* 10 MG AMP INH PRN ×4 (02:08→21:22)
[2018-07-28] MEDS ORDERED: ZOSYN 3.375 GM Q8H per EXTENDED INFUSION IVPB SCH ×2 (05:30)
[2018-07-28 06:13] LABS: ABS Basophils 0 10^3/ul (0-0.2); ABS Eosinophils 0.1 10^3/ul (0-0.6); ABS Lymphocytes 1.7 10^3/ul (1.0-4.8); ABS Monocytes 0.7 10^3/ul (0-0.8); ABS Neutrophils 9.1 10^3/ul (1.5-7.7); ABS Nucleated RBC 0 10^3/ul; Eosinophil % 0.8 %; Hematocrit 43 % (35-47); Hemoglobin 14.3 g/dl (12.0-16.0); Lymphocyte % 14.7 %; Mean Corpuscular HGB Conc 33 g/dl (31-36); Mean Corpuscular Hemoglobin 33 pg (27-31); Mean Corpuscular Volume 98 fL (80-97); Mean Platelet Volume 8.7 fL (7.4-10.4); Nucleated Red Blood Cells % 0; Platelet Count 208 10^3/ul (150-450); Red Blood Count 4.41 10^6/ul (4.00-5.40); Red Cell Distribution Width 15 % (10.5-15); White Blood Count 11.7 10^3/ul (3.5-10.8)
[2018-07-28 06:24] LABS: Albumin 3.9 g/dL (3.2-5.2); Albumin/Globulin Ratio 1.3 (1-3); BUN/Creatinine Ratio 7.6 (8-20); Calcium 8.6 mg/dL (8.6-10.3); EGFR African American 99.6 (>60); EGFR Non-African American 82.3 (>60); Potassium 3.6 mmol/L (3.5-5.0); Total Bilirubin 0.6 mg/dL (0.2-1.0); Total Protein 6.9 g/dL (6.4-8.9)
--- NOTE | 2018-07-28 08:25 | PN ---
Subjective Date of Service: 07/28/18 Interval History: HD # 1 for this 37 yo F with PMH chornic low back pain on disability, depression , hx of EtOH episodic use d/o and pancreatitis, who presented with abdominal pain s/p EtOH use c/w acute pancreatitis and AGMA. Overnight no acute events, VSS 119/84, 97.7, 20 100% on RA, 16. Labs with improving leukocytosis to 11, Bicarb improved from 16 to 12. This morning, still requiring IV pain medication, last dose 5AM with IV dilaudid , clear liquids, and on fluids. She reports she would like to leave the hospital by Thursday, she is quite familiar with pancreatitis and has been admitted multiple times for the same. Discussion that in order to be d/c in a timely manner has to wean down off IV pain medications, she understands this, there has been some difficulty in the past, she has mild abdominal pain though drinking fluids freely. She reports able to ambulate to bathroom, does have mild shaking, which she says is baseline from anxiety, last drink > 5 days ago. Denies CP, SOB, MSK complaints. +abdominal pain, + anxiety Objective Active Medications: Al Hydrox/Mg Hydrox/Simethicone (Maalox Plus*) 30 ml PO Q6H PRN PRN Reason: INDIGESTION Baclofen (Lioresal Tab*) 10 mg PO Q8HR PRN PRN Reason: PAIN Last Admin: 07/28/18 01:44 Dose: 10 mg Docusate Sodium (Colace Cap*) 100 mg PO BID PRN PRN Reason: CONSTIPATION Gabapentin (Neurontin Cap(*)) 900 mg PO TID [facility] Last Admin: 07/28/18 02:07 Dose: 900 mg Hydromorphone HCl (Dilaudid Inj1s*) 1 mg IV SLOW PU Q4H PRN PRN Reason: PAIN Last Admin: 07/28/18 05:15 Dose: 1 mg Hydroxyzine HCl (Atarax Tab*) 25 mg PO QPM [facility] Last Admin: 07/28/18 01:27 Dose: 25 mg Sodium Chloride (Ns 0.9% 1000 Ml*) 1,000 mls @ 150 mls/hr IV PER RATE [facility] Last Admin: 07/28/18 01:18 Dose: 150 mls/hr Piperacillin Sod/Tazobactam (Sod 3.375 gm/ Sodium Chloride) 115 mls @ 28.75 mls /hr IVPB Q8H [facility] Last Admin: 07/28/18 05:19 Dose: 28.75 mls/hr Nicotine (Nicotine Inhaler*) 10 mg INH Q2H PRN PRN Reason: CRAVING Last Admin: 07/28/18 02:08 Dose: 10 mg Ondansetron HCl (Zofran Inj*) 4 mg IV Q4H PRN PRN Reason: NAUSEA/VOMITING Pantoprazole Sodium (Protonix Tab*) 40 mg PO DAILY [facility] Pharmacy Consult (Zosyn Per Pharmacy*) 1 note FOLLOW UP .ZOSYN PER PHARMACY [facility] Quetiapine Fumarate (Seroquel Tab*) 25 mg PO BEDTIME [facility] Last Admin: 07/28/18 01:27 Dose: 25 mg Senna (Senokot Tab*) 1 tab PO BID PRN PRN Reason: CONSTIPATION Vital Signs - 8 hr 07/28/18 07/28/18 07/28/18 00:30 01:00 01:13 Temperature 97.5 F Pulse Rate 118 Respiratory 16 16 18 Rate Blood Pressure 137/100 (mmHg) O2 Sat by Pulse 97 Oximetry 07/28/18 07/28/18 07/28/18 02:07 02:14 02:50 Temperature Pulse Rate Respiratory 16 16 16 Rate Blood Pressure (mmHg) O2 Sat by Pulse Oximetry 07/28/18 07/28/18 07/28/18 03:55 05:15 08:10 Temperature 97.7 F Pulse Rate 95 Respiratory 20 16 18 Rate Blood Pressure 119/84 (mmHg) O2 Sat by Pulse 100 Oximetry Oxygen Devices in Use Now: None Appearance: Well appearing woman in NAD Ears/Nose/Mouth/Throat: NL Teeth, Lips, Gums, Mucous Membranes Moist Neck: NL Appearance and Movements; NL JVP, Trachea Midline Respiratory: Symmetrical Chest Expansion and Respiratory Effort, Clear to Auscultation Cardiovascular: NL Sounds; No Murmurs; No JVD, RRR Abdominal: - - Belly soft ND tender to palp epigastric Lymphatic: No Cervical Adenopathy Extremities: No Edema Skin: No Rash or Ulcers Neurological: Alert and Oriented x 3 Result Diagrams: 07/28/18 05:35 07/28/18 05:35 Assess/Plan/Problems-Billing Assessment: 37 yo F with PMH chornic low back pain on disability, depression, hx of EtOH episodic use d/o and pancreatitis, who presented with abdominal pain s/p EtOH use c/w acute pancreatitis and AGMA. - Patient Problems (1) Acute pancreatitis Current Visit: No Status: Acute Code(s): K85.90 - ACUTE PANCREATITIS WITHOUT NECROSIS OR INFECTION, UNSP SNOMED Code(s): 200333223 Comment: - Recurrent alcoholic pancreatitis, no e.o local complications and will d/c Zosyn today as no clear indication - Lipase 1200 on admision - spoke with pt that diet will be advanced as tolerated, taper from 1mg IV dialudid q 4 hr to 0.5mg this afternoon, then would space to q6 07/29 AM and q 8 07/29 afternoon. Pt is known from previous hospital stay to have a hard time trying to be taken off narcotic pain meds. She has h/o chronic opiod use in the past. (2) Alcohol abuse Current Visit: No Status: Chronic Code(s): F10.10 - ALCOHOL ABUSE, UNCOMPLICATED SNOMED Code(s): 82574547 Comment: -cont gabapentin -Will hoild on W[facility] protocol, she is > 72 hours out of her last ETOH use (3) Metabolic acidosis Current Visit: Yes Status: Acute Code(s): E87.2 - ACIDOSIS SNOMED Code(s) : 34516359 Comment: Starvation ketosis on admission, continue to encourage PO, remains on IVF (4) Chronic back pain Current Visit: No Status: Chronic Code(s): M54.9 - DORSALGIA, UNSPECIFIED; G89.29 - OTHER CHRONIC PAIN SNOMED Code(s): 509541638 Comment: - Continue gabapentin and baclofen (5) DVT prophylaxis Current Visit: No Status: Acute Code(s): MYC6533 - SNOMED Code(s): 317343856 Comment: - Encourage ambulation
[2018-07-28] MEDS: Pantoprazole TAB * 40 MG TAB PO SCH (08:48)
[2018-07-28] MEDS ORDERED: HYDROmorphone INJ1* 1 MG/ML SYRINGE IV SLOW PU PRN (13:34)
[2018-07-28] MEDS: Nicotine PATCH 21 MG/24 HR* PATCH TRANSDERM SCH (17:24)
[2018-07-28] MEDS ORDERED: Nicotine Patch Removal NOTE PATCH OFF SCH (21:00)
[2018-07-29] MEDS: HYDROmorphone INJ1* 1 MG/ML SYRINGE IV SLOW PU PRN ×5 (01:21→17:38)
[2018-07-29] MEDS: Nicotine Inhaler* 10 MG AMP INH PRN ×5 (01:21→15:58)
[2018-07-29] MEDS: NS 0.9% 1000 ML** 1,000 ML IV SCH (04:11)
[2018-07-29 07:14] LABS: ABS Basophils 0.1 10^3/ul (0-0.2); ABS Eosinophils 0.3 10^3/ul (0-0.6); ABS Lymphocytes 1.5 10^3/ul (1.0-4.8); ABS Monocytes 0.6 10^3/ul (0-0.8); ABS Neutrophils 5.5 10^3/ul (1.5-7.7); ABS Nucleated RBC 0 10^3/ul; Eosinophil % 3.2 %; Hematocrit 39 % (35-47); Hemoglobin 12.2 g/dl (12.0-16.0); Lymphocyte % 19.4 %; Mean Corpuscular HGB Conc 32 g/dl (31-36); Mean Corpuscular Hemoglobin 33 pg (27-31); Mean Corpuscular Volume 105 fL (80-97); Mean Platelet Volume 9.8 fL (7.4-10.4); Nucleated Red Blood Cells % 0.2; Platelet Count 154 10^3/ul (150-450); Red Blood Count 3.68 10^6/ul (4.00-5.40); Red Cell Distribution Width 16 % (10.5-15); White Blood Count 7.8 10^3/ul (3.5-10.8)
[2018-07-29 07:45] LABS: Sodium 134 mmol/L (135-145)
[2018-07-29 07:48] LABS: Anion Gap 12 mmol/L (2-11); CO2 Carbon Dioxide 9 mmol/L (22-32); Chloride 113 mmol/L (101-111)
[2018-07-29 09:16] LABS: EGFR African American 124.8 (>60); EGFR Non-African American 103.1 (>60); Potassium Redraw 3.6 mmol/L (3.5-5.0)
[2018-07-29] MEDS: Gabapentin CAP(*) 300 MG PO SCH ×2 (09:43→13:28)
[2018-07-29] MEDS: Pantoprazole TAB * 40 MG TAB PO SCH (09:43)
[2018-07-29] MEDS: Nicotine PATCH 21 MG/24 HR* PATCH TRANSDERM SCH (09:44)
[2018-07-29 16:11] VITALS: BP 145/97
--- NOTE | 2018-07-29 16:29 | PN ---
"Progress Note - Progress Note Date of Service: 07/29/18 Note: Search Terms: abby carlton, 1980 Search Date: 07/29/2018 04:28:11 PM The Drug Utilization Report below displays all of the controlled substance prescriptions, if any, that your patient has filled in the last twelve months. The information displayed on this report is compiled from pharmacy submissions to the Department, and accurately reflects the information as submitted by the pharmacies. This report was requested by: Samuel Finley | Reference #: [id number] Others' Prescriptions Patient Name: Abby Carlton Date: 1980 Address: [address] [place] [address] Sex: Female Rx Written Rx Dispensed Drug Quantity Days Supply Prescriber Name 06/01/2018 06/02/2018 oxycodone hcl 5 mg tablet 15 7 Malina Bluont NP 05/29/2018 05/30/2018 oxycodone hcl 10 mg tablet 15 5 Gabino Flores 05/26/2018 05/26/2018 oxycodone-acetaminophen 5-325 mg tablet 12 4 Abdelrahman Collazo V 04/12/2018 04/12/2018 oxycodone hcl 5 mg tablet 20 4 Rahel Saba 04/01/2018 04/01/2018 oxycodone hcl 5 mg tablet 90 5 Glenda Melton (DO) 01/21/2018 01/21/2018 methadone hcl 10 mg tablet 12 4 Edmundo Michael 01/21/2018 01/21/2018 chlordiazepoxide 25 mg capsule 15 5 Edmundo Michael 10/01/2017 10/01/2017 oxycodone hcl 5 mg tablet 30 5 Rahel Saba 09/19/2017 09/19/2017 oxycodone hcl 5 mg tablet 20 5 Sarbjit Vegas MD 09/10/2017 09/10/2017 oxycodone hcl 5 mg tablet 16 4 Malina Blount NP 09/04/2017 09/05/2017 oxycodone hcl 5 mg tablet 12 3 Lavern French PA-C 09/04/2017 09/04/2017 oxycodone hcl 5 mg tablet 2 1 Lavern French PA-C"
[2018-07-29] MEDS: hydrOXYzine HCL TAB* 25 MG PO SCH (17:30)
--- NOTE | 2018-07-29 17:36 | PN ---
Progress Note - Progress Note Date of Service: 07/29/18 Note: Time spent on discharge including exam of patient, discussion with pt, SO, nurse , CM, review of EMR and preparation of discharge documents was 45 minutes.
[2018-07-29] MEDS ORDERED: Sodium Bicarbonate (ANTACID)* 650 MG TAB PO SCH (21:00)
--- NOTE | 2018-07-29 21:02 | DS ---
CC: Malina Blount NP * DISCHARGE SUMMARY: DATE OF ADMISSION: DATE OF DISCHARGE: 07/29/18 HISTORY OF PRESENT ILLNESS/HOSPITAL COURSE: This 37-year-old woman came in complaining of abdominal pain after her last admission for alcoholic pancreatitis. She may have been sober for about a month. She was drinking heavily for 2 months. She stopped drinking 2 or 3 days before admission because she was getting abdominal pain. The abdominal pain did not resolve and she came to the emergency room. She was given intravenous fluids and analgesics as needed. Her lipase on admission was 1256; on the day of discharge, this is 115. She still has abdominal pain; however, she felt she would be able to manage her pain at home on oral oxycodone 10 mg and requested 15 tablets as she has had before. She actually was requesting discharge and preferred just to going home. She felt she would be able to hydrate herself adequately. I have instructed her to take a low-fat diet. She was unusually acidotic during this admission. She has partially compensated on her blood gas. Her pH was 7.34, just slightly below normal. Base excess was -9.2. Anion gap was 12, minimally elevated. This may be related to bicarbonate loss from diarrhea, which she has had. We have tried to replenish her with sodium bicarbonate. She will have a BMP in 4 days. FINAL DIAGNOSES: 1. Alcoholic pancreatitis. 2. Metabolic acidosis. 3. Chronic back pain. DISCHARGE MEDICATIONS: 1. Oxycodone 10 mg every 4 hours p.r.n., dispense #15. 2. Sodium bicarbonate 650 mg four times a day. 3. Hydroxyzine 25 mg h.s. 4. Baclofen 10 mg every 8 hours p.r.n. 5. Quetiapine 25 mg h.s. 6. Ondansetron ODT 4 mg every 8 hours p.r.n. 7. Gabapentin 600 mg 1-1/2 tablets t.i.d. 8. Ranitidine 150 mg b.i.d. CONDITION ON DISCHARGE: Stable. DISPOSITION ON DISCHARGE: Discharged home. [id number]/[facility] #: [id number] MTDD
== END 2018-07-29 18:00 | disposition home or self-care (01) | DRG 282 ==
LOC: ED 19:44 → MEDTELE 22:50
PROVIDERS: ADMIT Pediatrics; ATTEND Internal Medicine
DX: K85.20 Alcohol induced acute pancreatitis without necrosis or infection (principal); E87.2 Acidosis; J45.909 Unspecified asthma, uncomplicated; K21.9 Gastro-esophageal reflux disease without esophagitis; F41.9 Anxiety disorder, unspecified; F17.210 Nicotine dependence, cigarettes, uncomplicated; E86.0 Dehydration; G89.29 Other chronic pain; M54.9 Dorsalgia, unspecified; F10.10 Alcohol abuse, uncomplicated; Y90.9 Presence of alcohol in blood, level not specified; R19.7 Diarrhea, unspecified; F32.9 Major depressive disorder, single episode, unspecified; Z88.1 Allergy status to other antibiotic agents; Z88.5 Allergy status to narcotic agent; Z87.442 Personal history of urinary calculi; Z88.8 Allergy status to other drugs, medicaments and biological substances; Z80.49 Family history of malignant neoplasm of other genital organs; Z80.8 Family history of malignant neoplasm of other organs or systems
CPT/HCPCS: 36415; 36600; 74177; 76705; 80048; 80053; 80320; 81003; 81015; 82150; 82565; 82803; 82947; 83605; 83615; 83690; 84478; 84520; 84702; 85025; 86140; 86703; 87086; 99283; A9270-GY; G0480; J1170; J1240; J2405; J2543; Q9967

== ENCOUNTER 2018-08-21 20:49 | Emergency (ER) | payer OTHER ==
--- OUTSIDE RECORDS SUMMARY | 2018-08-21 21:06 | XMS REPORT | Continuity of Care Document ---
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 Active Onset: 01/21/2018 Gastroduodenitis Edmundo Michael MD Active Onset: 01/21/2018 Tobacco user Edmundo Michael MD Active Onset: 04/01/2018 Backache Glenda Melton D.O. Active Onset: 03/29/2018 Anxiety state Chasidy Ivy M.D. Active Onset: 03/29/2018 Alcohol-induced psychosis Chasidy Ivy M.D. Active Onset: 03/29/2018 Hypoglycemia Chasidy Ivy M.D. Active Family History Date Family Member(s) Observation Comments Father Prostate Cancer Father Hypertension Age [...] Use Currently consumes Drinks when watching alcohol [employer] races once weekly. Recreational Drug Use Denies Drug Use Tobacco Use Start: Unknown Light tobacco smoker (10 or fewer cigarettes/day) Smoking Status Reviewed: 08/06/18 Light tobacco smoker (10 or fewer cigarettes/day) Allergies, Adverse Reactions, Alerts Date Description Reaction Status Severity Comments 05/05/2013 Codeine Active 06/03/2017 Metaxalone Active feels "loopy" 06/03/2017 Zithromax Active violently ill 07/29/2017 Azithromycin Active 11/05/2017 Keflex Active Severe Can't breath 11/05/2017 Qvar Active 02/18/2018 Lorazepam Nausea and Vomiting, Increased Active confusion Medications Medication Date Status Form Strength Qnty SIG Indications Ordering Provider Seroquel 08/06 Active Tablets 50mg 30tab One po F33.9 s daily Varn, N.P. Oxycodone HCL 08/06 Active Tablets 10mg 15tab 1 by mouth s every 8 Varn, N.P. hours as needed pain(only 15 given) Gabapentin 06/01 Active Capsules 300mg 90cap 1 by 3 K85.20 s times daily Varn, N.P. Ranitidine HCL 06/01 Active Tablets 150mg 60tab take one K21.9 s tablet by Varn, N.P. mouth twice a day Oxycodone HCL 06/01 Active Tablets 5mg 15tab One po bid K85.20 s Varn, N.P. Gabapentin 03/12 Active Tablets 600mg 90tab take 1 s tablet Varn, N.P. three times a day Walker Swivel 11/05 Active Misc 3" 1unit use this to S93.324D Malina s ambulate Varn, N.P. Adjustment Holes/3" With Seat Hydroxyzine 01/27 Active Capsules 25mg 30cap Take 1 F41.1 Pamoate s Capsule By Varn, N.P. Mouth Every 8 Hours as Needed For Anxiety Ondansetron 12/24 Active Tablets 4mg 20tab 1 tablet R11.2 Dispers s under Varn, N.P. tongue every 8 hours as needed nausea Nicotine Active Patches 21mg/24HR Apply 1 24HR Patch Transdermal ly Every Day AT 800Am Melatonin ER Active Tablets 3mg 30tab 1 tab by Malina /0000 ER s mouth at Varn, N.P. bedtime Omeprazole Active Capsules 40mg 30cap [address] s every day Varn, N.P. Baclofen Active Tablets 10mg 45tab Take 1/ s Tablet By Varn, N.P. Mouth Every 8 Hours as Needed For Muscle Spasm Sodium Active Tablets 650mg 1 tab by Unknown Bicarbonate mouth 4 times a day Macrobid 11/08 Hx Capsules 100mg 14cap 1 [...] N.P. - Mouth Every 01/25 8 Hours as Needed For Muscle Spasm Omeprazole 06/24 Hx Capsules 20mg 30cap [address] [facility] every day Viraj Kaba M.D. 01/25 Doxycycline 06/14 Hx Capsules 100mg one tablet Unknown Hyclate twice daily - for 10 days 06/25 ([facility]) /2016 Pulmicort 03/11 Hx Aerosol 180mcg/Ac 1unit 2 puffs hal t s twice daily Varn, N.P. - [...] 12/24 Hx Capsules 300mg 270ca take 3 M54.5 ps capsules by Varn, N.P. - mouth three 01/15 times a day /2017 Creon 12/12 Hx Caps 6000Unit 90cap One po with Part s each meal Mine, N.P. - tid 01/27 Omeprazole 12/10 Hx Tablets 20mg 30tab 1 by mouth R11.2 s every day Mine, N.P. - 01/27 Oxycodone HCL 12/10 Hx Tablets 5mg 15tab one by K85.90 Malina /2017 s mouth every Mine, N.P. - 8 hours as 02/27 needed pain /2017 Oxycodone HCL Hx Tablets 10mg 1 po q 4 Unknown /0000 hrs prn - pain MDD 6 03/29 tabs ([facility] [place] summary) Omeprazole Hx Capsules 40mg 1 by mouth Unknown /0000 DR every day - ([facility] 06/24 summary) Ibu-200 Hx Tablets 200mg 2 tab as Unknown /0000 needed. - 01/25 Oxycodone HCL Hx Tablets 5mg 30tab 1 tab po Casey /0000 s q4-6 hours Aimee, - prn 01/26 Cyclobenzaprine Hx Tablets 5mg 30tab take one Malina HCL /0000 s tablet by Mine, N.P. - mouth every 04/05 8 hours /2017 prn. may take a second tablet if first not effetive. Aspirin Ec Hx Tablets 325mg take 1 tab Unknown /0000 DR by mouth - every day x 12/19. with food. Methadone HCL 00 Hx Tablets 10mg Take 1 Unknown /0000 Tablet By - Mouth Three 01/18 Times Daily Maximum Daily Dose Of 3 Per D Sucralfate Hx Tablets 1gm Take 1 Unknown /0000 Tablet By - Mouth Two 03/12 Times Daily Chlordiazepoxide Hx Capsules 25mg Take 1 Unknown [...] 03/12 Nicotine Tartrate Hx Powder 10mg Unknown / inhaled - every 2 03/12 hours needed for cravings Thiamine HCL Hx Tablets 100mg 1 by mouth Unknown / every day - 03/12 Oxycodone HCL Hx Tablets 5mg 20tab 1 tab po Slava /0000 s q4-6 hours Viraj Westbrook pain PascualDCarmina 05/31 Seroquel Hx Tablets 25mg 30tab Take 1 R11.2 Malina s Tablet By Varn, N.P. - Mouth AT 08/06 Bedtime Oxycodone Hx Tablets 10mg 1 by mouth Unknown / every 6 - hours as 08/06 pain(only 15 given) Medications Administered in Office Medication Date Status Form Strength Qnty SIG Indications Ordering Provider Ozzy Administered Injection Slava 40MG 018 Felicita Westbrook Immunizations CPT Code Status Date Vaccine Reaction Lot # [id number] Given 03/12/2018 Influenza Virus Vaccine, No immediate [id number] Quadrivalent, Split, reaction..jh Preservative Free 92641 Given 03/27/2014 Tdap - Tetanus/Diptheria/Acellular Pertussis 28212 Given 06/26/2011 Influenza Virus Vaccine, Quadrivalent, Split, Preservative Free 34678 Given 07/31/2009 Influenza Virus Vaccine, Quadrivalent, Split, Preservative Free 67325 Given 07/31/2009 Influenza Virus Vaccine, Quadrivalent, Split, Preservative Free 22714 Given 07/31/2009 Influenza Virus Vaccine, Quadrivalent, Split, Preservative Free 26130 Given 07/31/2009 Influenza Virus Vaccine, Quadrivalent, Split, Preservative Free 28808 Given 07/31/2009 Influenza Virus Vaccine, Quadrivalent, Split, Preservative Free 93518 Given 07/31/2009 Influenza Virus Vaccine, Quadrivalent, Split, Preservative Free 81851 Given 06/25/2007 Influenza Virus Vaccine, Quadrivalent, Split, Preservative Free 23444 Given 06/25/2007 Influenza Virus Vaccine, Quadrivalent, Split, Preservative Free 11098 Given 06/25/2007 Influenza Virus Vaccine, Quadrivalent, Split, Preservative Free 00752 Given 06/25/2007 Influenza Virus 3Yrs & Over 08940 Given 07/08/2004 Tetanus And Diptheria (Td) For Adult Use Preservative Free 75220 Given 07/08/2004 Measles Mumps And Rubella MMR Vital Signs Date Vital Result Comment 08/06/2018 3:24pm Height 61 inches 5'1" Weight 123.00 lb Heart Rate 92 /min BP Systolic 138 mmHg BP Diastolic 98 mmHg Body Temperature 97.4 F O2 % BldC Oximetry 97 % BMI (Body Mass Index) 23.2 kg/m2 06/01/2018 4:03pm Height 61 inches 5'1" Weight 121.00 lb Heart Rate 74 /min BP Systolic 120 mmHg BP Diastolic 84 mmHg Body Temperature 97.3 F BMI (Body Mass Index) 22.9 kg/m2 05/13/2018 10:12am Height 61 inches 5'1" Weight [...] Date Facility Test Result H/L Range Note Comp Metabolic Panel 08/06/2018 [facility] Sodium 144 mmol/L N 135-145 [address] [place] [address] [phone] Potassium 4.1 mmol/L N 3.5-5.0 Chloride 107 mmol/L N 101-111 Co2 Carbon Dioxide 29 mmol/L N 22-32 Anion Gap 8 mmol/L N 2-11 Glucose 97 mg/dL N 70-100 Blood Urea Nitrogen 5 mg/dL Low 6-24 Creatinine 0.75 mg/dL N 0.51-0.95 BUN/Creatinine Ratio 6.7 Low 8-20 Calcium 9.1 mg/dL N 8.6-10.3 Total Protein 6.3 g/dL Low 6.4-8.9 Albumin 3.8 g/dL N 3.2-5.2 Globulin 2.5 g/dL N 2-4 Albumin/Globulin Ratio 1.5 N 1-3 Total Bilirubin 0.30 mg/dL N 0.2-1.0 Alkaline Phosphatase 94 U/L N 34-104 Alt 26 U/L N 7-52 Ast 47 U/L High 13-39 Egfr Non- 87.4 >60 Egfr 105.8 >60 1 Laboratory test 08/06/2018 [facility] Magnesium 1.9 mg/dL N 1.9-2.7 finding [address] [place] [address] [phone] Laboratory test 07/27/2018 [facility] Alcohol < 10 mg/dL N < 10 finding [address] [place] [address] [phone] LDH 189 U/L N 140-271 Urinalysis Profile 07/27/2018 [facility] Urine Color Yellow [address] [place] [address] [phone] Urine Appearance Cloudy Urine Specific [place] 1.021 N 1.010-1.030 Urine pH 6.0 N 5-9 Urine Urobilinogen Negative Negative Urine Ketones 2+ Abnormal Negative Urine Protein 1+(30 mg/dL) Abnormal Negative Urine Leukocytes Negative Negative Urine Blood Negative Negative Urine Nitrite Negative Negative Urine Bilirubin Negative Negative Urine Glucose Negative Negative Urine White Blood Cell Trace(0-5/hpf) Absent Urine Red Blood Cell Absent Absent Urine Bacteria Absent Absent Urine Squamous Epithelial Cell Present Abnormal Absent Laboratory test 07/27/2018 [facility] Lactic Acid 1.0 mmol/L N 0.5-2.0 2 finding [address] [place] [address] [phone] CBC Auto Diff 07/27/2018 [facility] White Blood 17.8 High 3.5- 10.[address] Count 10^3/[place] [address] [phone] Red Blood Count 4.90 10^6/uL N 4.00-5.40 Hemoglobin 15.9 g/dL N 12.0-16.0 Hematocrit 48 % High 35-47 Mean Corpuscular Volume 98 fL High 80-97 Mean Corpuscular Hemoglobin 32 pg High 27-31 Mean Corpuscular HGB Conc 33 g/dL N 31-36 Red Cell Distribution Width 15 % N 10.5-15 Platelet Count 247 10^3/uL N 150-450 Mean Platelet Volume 8.9 fL N 7.4-10.4 Abs Neutrophils 14.7 10^3/uL High 1.5-7.7 Abs Lymphocytes 1.8 10^3/uL N 1.0-4.8 Abs Monocytes 1.2 10^3/uL High 0-0.8 Abs Eosinophils 0.1 10^3/uL N 0-0.6 Abs Basophils 0.1 10^3/uL N 0-0.2 Abs Nucleated RBC 0 10^3/uL Granulocyte % 82.3 % Lymphocyte % 10.3 % Monocyte % 6.6 % Eosinophil % 0.4 % Basophil % 0.4 % Nucleated Red Blood Cells % 0 Comp Metabolic Panel 07/27/2018 [facility] Sodium 131 mmol/L Low 135-[address] [place] [address] [phone] Potassium 4.1 mmol/L N 3.5-5.0 Chloride 101 mmol/L N 101-111 Glucose 76 mg/dL N 70-100 Blood Urea Nitrogen 8 mg/dL N 6-24 Creatinine 0.83 mg/dL N 0.51-0.95 BUN/Creatinine Ratio 9.6 N 8-20 Calcium 9.5 mg/dL N 8.6-10.3 Total Protein 8.3 g/dL N 6.4-8.9 Albumin 4.7 g/dL N 3.2-5.2 Globulin 3.6 g/dL N 2-4 Albumin/Globulin Ratio 1.3 N 1-3 Total Bilirubin 0.80 mg/dL N 0.2-1.0 Alkaline Phosphatase 172 U/L High 34-104 Alt 26 U/L N 7-52 Ast 61 U/L High 13-39 Egfr Non- 77.8 >60 Egfr 94.1 >60 3 Co2 Carbon Dioxide 12 mmol/L Low 22-32 4 Anion Gap 18 mmol/L High 2-11 Laboratory test 07/27/2018 [facility] Amylase 195 U/L High 29- [address] [place] [address] [phone] C Reactive Protein 16.08 mg/L High <8.01 HCG 0.80 mIU/mL 5 Lipase 1256 U/L High 11.0-82.0 Triglyceride 171 mg/dL 6 Urine Culture And 07/27/2018 [facility] Urine Culture SEE RESULT [address] [place] [address] [phone] Urine Culture And 05/28/2018 [facility] Urine Culture SEE RESULT [address] [place] [address] [phone] Urinalysis Profile 05/28/2018 [facility] Urine Color Yellow [address] [place] [address] [phone] Urine Appearance Clear Urine Specific [place] 1.024 N 1.010-1.030 Urine pH 6.0 N 5-9 Urine Urobilinogen Negative Negative Urine Ketones 2+ Abnormal Negative Urine Protein Negative Negative Urine Leukocytes Trace Abnormal Negative Urine Blood Negative Negative Urine Nitrite Negative Negative Urine Bilirubin Negative Negative Urine Glucose Negative Negative Urine White Blood Cell 2+(11-20/hpf) Abnormal Absent Urine Red Blood Cell Trace(0-2/hpf) Absent Urine Bacteria Absent Absent Urine Squamous Epithelial Cell Present Abnormal Absent Laboratory test 05/28/2018 [facility] Lipase 393 U/L High 11.0 -82.[address] [place] [address] [phone] C Reactive Protein 142.58 mg/L High <8.01 HCG < 0.60 mIU/mL 9 Magnesium TNP mg/dL 1.9-2.7 10 Comp Metabolic Panel 05/28/2018 [facility] Sodium 133 mmol/L Low 135-[address] [place] [address] [phone] Chloride 102 mmol/L N 101-111 Co2 Carbon Dioxide 22 mmol/L N 22-32 Glucose 79 mg/dL N 70-100 Blood Urea Nitrogen 8 mg/dL N 6-24 Creatinine 0.64 mg/dL N 0.51-0.95 BUN/Creatinine Ratio 12.5 N 8-20 Calcium 9.0 mg/dL N 8.6-10.3 Total Protein 6.6 g/dL N 6.4-8.9 Albumin 3.8 g/dL N 3.2-5.2 Globulin 2.8 g/dL N 2-4 Albumin/Globulin Ratio 1.4 N 1-3 Total Bilirubin 1.40 mg/dL High 0.2-1.0 Alkaline Phosphatase 162 U/L High 34-104 Alt 96 U/L High 7-52 Egfr Non- 105.0 >60 Egfr 127.0 >60 11 Potassium TNP mmol/L 3.5-5.0 12 Anion Gap 9 mmol/L N 2-11 Ast TNP U/L 13-39 13 Laboratory test 05/28/2018 [facility] Lactic Acid 0.6 mmol/L N 0.5-2.[address] [place] [address] [phone] CBC Auto Diff 05/28/2018 [facility] White Blood 15.6 High 3.5- 10.[address] Count 10^3/[place] [address] [phone] Red Blood Count 4.49 10^6/uL N 4.00-5.40 Hemoglobin 14.1 g/dL N 12.0-16.0 Hematocrit 42 % N 35-47 Mean Corpuscular Volume 95 fL N 80-97 Mean Corpuscular Hemoglobin 32 pg High 27-31 Mean Corpuscular HGB Conc 33 g/dL N 31-36 Red Cell Distribution Width 18 % High 10.5-15 Platelet Count 135 10^3/uL Low 150-450 Mean Platelet Volume 9.7 fL N 7.4-10.4 Abs Neutrophils 13.0 10^3/uL High 1.5-7.7 Abs Lymphocytes 1.4 10^3/uL N 1.0-4.8 Abs Monocytes 1.1 10^3/uL High 0-0.8 Abs Eosinophils 0.1 10^3/uL N 0-0.6 Abs Basophils 0.1 10^3/uL N 0-0.2 Abs Nucleated RBC 0 10^3/uL Granulocyte % 83.1 % Lymphocyte % 8.8 % Monocyte % 6.8 % Eosinophil % 0.8 % Basophil % 0.5 % Nucleated Red Blood Cells % 0 Lipid Profile 05/28/2018 [facility] Triglycerides 41 mg/dL 15 (Trig/Chol/HDL) [address] [place] [address] [phone] Cholesterol 79 mg/dL 16 HDL Cholesterol 46.5 mg/dL 17 LDL Cholesterol 24 mg/dL 18 Laboratory test 05/28/2018 [facility] Potassium 3.7 mmol/L N 3.5-5.[address] [place] [address] [phone] Magnesium 1.7 mg/dL Low 1.9-2.7 Ast Redraw 211 U/L High 13-39 Urinalysis Profile 05/26/2018 [facility] Urine Color Yellow [address] [place], [place] [id number] [phone] Urine Appearance Cloudy Urine Specific [place] 1.013 N 1.010-1.030 Urine pH 7.0 N 5-9 Urine Urobilinogen Negative Negative Urine Ketones Negative Negative Urine Protein Negative Negative Urine Leukocytes 1+ Abnormal Negative Urine Blood Negative Negative Urine Nitrite Negative Negative Urine Bilirubin Negative Negative Urine Glucose Negative Negative Urine White Blood Cell Trace(0-5/hpf) Absent Urine Red Blood Cell Absent Absent Urine Bacteria Absent Absent Urine Squamous Epithelial Cell Present Abnormal Absent Urine Culture And 05/26/2018 [facility] Urine Culture SEE RESULT [address] [place] [place], [place] [address] [phone] Laboratory test 04/12/2018 [facility] Surgical SEE RESULT [address] Pathology BELOW [place], [place] [id number] [phone] Urine Culture And 03/28/2018 [facility] Urine Culture SEE RESULT [address] [place] [place], [place] [address] [phone] Laboratory test 03/28/2018 [facility] Alcohol < 10 mg/dL N < [address] [place], [place] [address] [phone] Urinalysis Profile 03/28/2018 [facility] Urine Color Yellow [address] [place], [place] [id number] [phone] Urine Appearance Clear Urine Specific [place] 1.039 High 1.010-1.030 Urine pH 7.0 N [...] Cell Present Abnormal Absent Laboratory test 03/28/2018 [facility] Partial 27.5 N 26.0- 36.[address] [place] [address] PTT [phone] Inr/Protime 03/28/2018 [facility] Inr 0.92 N 0.77-1.[address] [place] [address] [phone] Laboratory test 03/28/2018 [facility] HCG < 0.[address] mIU/[place] [address] [phone] Troponin-I (TnI) 0.14 ng/mL High <0.04 23 Lipase 1276 U/L High 11.0-82.0 Comp Metabolic Panel 03/28/2018 [facility] Sodium 135 mmol/L N 135-[address] [place] [address] [phone] Chloride 100 mmol/L Low 101-111 Co2 Carbon [...] Egfr Non- 81.2 >60 Egfr 98.2 >60 24 Potassium TNP mmol/L 3.5-5.0 25 Anion Gap 12 mmol/L High 2-11 Ast TNP U/L 13-39 26 Laboratory test 03/28/2018 [facility] Lactic Acid 1.0 mmol/L N 0.5-2.[address] [place] [address] [phone] CBC Auto Diff 03/28/2018 [facility] White Blood 11.6 High 3.5- 10.[address] Count 10^3/[place] [address] [phone] Red Blood Count 4.75 10^6/uL N 4.00-5.40 [...] Blood Cells % 0.1 Laboratory test 03/28/2018 [facility] Potassium 3.8 mmol/L N 3.5-5.[address] [place] [address] [phone] Ast Redraw 39 U/L N 13-39 Urinalysis Profile 01/14/2018 [facility] Urine Color Yellow [address] [place] [address] [phone] Urine Appearance Cloudy Urine Specific [place] 1.018 N 1.010-1.030 Urine pH 6.0 N [...] Epithelial Present Abnormal Absent CBC Auto 01/14/2018 [facility] White Blood 11.0 10^3/uL High 3.5-10.[address] [place] [address] [phone] Red Blood Count 4.72 10^6/uL N 4.00-5.40 [...] Cells % 0 Comp Metabolic Panel 01/14/2018 [facility] Sodium 134 mmol/L Low 135-145 [address] [place] [address] [phone] Potassium 3.8 mmol/L N 3.5-5.0 Chloride 100 [...] Egfr Non- 75.7 >60 Egfr 91.6 >60 28 Laboratory test 01/14/2018 [facility] HCG < 0.60 mIU/ mL [address] [place] [address] [phone] Lipase 3111 U/L High 11.0-82.0 Alcohol < 10 mg/dL N <10 Urine Culture And 01/14/2018 [facility] Urine Culture SEE RESULT [address] [place] [address] [phone] Ua Routine 11/05/2017 [facility] Ua Specific [address] [place] Ua PH 6 Ua Color brown Ua Appera cloudy Ua WBC ++ Ua Protein + Ua Glucose ++ Ua Ketones neg. Ua Bilirubin neg. Ua Urobilinogen neg. Ua Nitrite neg. Ua Occult Blood about 250 Urine Culture And 11/05/2017 [facility] Urine Culture SEE RESULT [address] [place] [address] [phone] Urinalysis Profile 09/04/2017 [facility] Urine Color Yellow [address] [place] [address] [phone] Urine Appearance Cloudy Urine Specific [place] 1.021 N 1.010-1.030 Urine pH 6.0 N [...] Present Abnormal Absent Urine Culture And 09/04/2017 [facility] Urine Culture SEE RESULT [address] [place] [address] [phone] CBC Auto Diff 09/04/2017 [facility] White Blood 9.4 10^3/uL N 3.5-[address] Count 0.8 [place] [address] [phone] Red Blood Count 4.35 10^6/uL N 4.0-5.4 [...] Cells % 0 Comp Metabolic Panel 09/04/2017 [facility] Sodium 136 mmol/L N 133-145 [address] [place] [address] [phone] Potassium 3.8 mmol/L N 3.5-5.0 Chloride 105 [...] Egfr Non- 90.2 >60 Egfr 116.0 >60 33 Laboratory test 09/04/2017 [facility] Magnesium 2.1 mg/dL N 1.9-2.[address] [place] [address] [phone] Amylase 41 U/L N 29-103 Lipase 34 U/L N 11.0-82.0 CRP High Sensitivity 2.35 mg/L 34 Alcohol 54 mg/dL High <10 HCG < 0.60 mIU/mL 35 Troponin-I (TnI) 0.00 ng/mL <0.04 Laboratory test 06/24/2017 [facility] Lactic Acid 1.2 mmol/L N 0.5-2.[address] [place] [address] [phone] CBC Auto Diff 06/24/2017 [facility] White Blood 8.9 10^3/uL N 3.5-10.[address] [place] [address] [phone] Red Blood Count 4.72 10^6/uL N 4.0-5.4 [...] Cells % 0.2 Comp Metabolic Panel 06/24/2017 [facility] Sodium 133 mmol/L N 133-145 [address] [place] [address] [phone] Potassium 3.6 mmol/L N 3.5-5.0 Chloride 100 [...] Egfr Non- 68.6 >60 Egfr 88.2 >60 37 Laboratory test 06/24/2017 [facility] Magnesium 2.1 mg/dL N 1.9-2.7 finding [address] [place] [address] [phone] Lipase 541 U/L High 11.0-82.0 Creatine Kinase(CK) 25 U/L N 10-223 C Reactive Protein 1.94 mg/L N < 5.00 38 HCG < 0.60 mIU/mL 39 Lipid Profile 06/24/2017 [facility] Triglycerides 98 mg/dL 40 (Trig/Chol/HDL) [address] [place] [address] [phone] Cholesterol 166 mg/dL 41 HDL Cholesterol 49.4 mg/dL 42 LDL Cholesterol 97 mg/dL 43 Laboratory test 06/24/2017 [facility] Alcohol < 10 mg/dL N < 10 finding [address] [place] [address] [phone] Urinalysis Profile 06/24/2017 [facility] Urine Color Straw [address] [place] [address] [phone] Urine Appearance Cloudy Urine Specific [place] 1.002 Low 1.010-1.030 Urine pH 6.0 N 5-9 Urine Urobilinogen Negative Negative Urine Ketones Negative Negative Urine Protein Negative Negative Urine Leukocytes Negative Negative Urine Blood Negative Negative Urine Nitrite Negative Negative Urine Bilirubin Negative Negative Urine Glucose Negative Negative Arterial Blood Gas 06/12/2017 [facility] Fio2 [address] [place] [address] [phone] PH Arterial 7.35 N 7.35-7.45 Pco2 Arterial 33 mmHg Low 35-45 Po2 Arterial 78 mmHg Low 80-100 O2 Saturation Arterial 97.2 % N 95-98 Base Excess Arterial -6.4 Low -2.0-2.0 44 Hco3 Arterial 19.8 mmol/L N 19-31 CBC Auto 06/12/2017 [facility] White Blood 14.7 10^3/uL High 3.5-10.[address] [place] [address] [phone] Red Blood Count 4.61 10^6/uL N 4.0-5.4 [...] Cells % 0 Comp Metabolic Panel 06/12/2017 [facility] Sodium 137 mmol/L N 133-[address] [place] [address] [phone] Potassium 4.2 mmol/L N 3.5-5.0 Chloride 108 [...] Egfr Non- 74.1 >60 Egfr 95.3 >60 45 Laboratory test 06/12/2017 [facility] D Dimer 262 ng/mL High Less [address] Quantitative Than [address] [place] [address] [phone] Amylase 50 U/L N 29-103 Lipase < 10 U/L Low 11.0-82.0 C Reactive Protein 222.45 mg/L High < 5.00 47 Troponin-I (TnI) 0.03 ng/mL <0.04 Strep AB Anti 06/12/2017 [facility] Anti Streptolysin 121 IU/mL 0 - 530 Dnase B [address] [place] [address] [phone] Anti-DNase B <74 U/mL 0 - 300 48 Urinalysis Profile 06/08/2017 [facility] Urine Color Red Abnormal [address] [place] [address] [phone] Urine Appearance Cloudy Urine pH TNP 5-9 49 Urine Urobilinogen TNP Negative 50 Urine Ketones TNP Negative 51 Urine Protein TNP Negative 52 Urine Leukocytes TNP Negative 53 Urine Blood TNP Negative 54 Urine Nitrite TNP Negative 55 Urine Bilirubin TNP Negative 56 Urine Glucose TNP Negative 57 Urine Specific [place] 1.005 Low 1.010-1.030 Urine White Blood Cell 3+(>20/hpf) Abnormal Absent Urine Red Blood Cell 3+(>10/hpf) Abnormal Absent Urine Bacteria 1+ Abnormal Absent Urine Squamous Epithelial Cell Present Abnormal Absent CBC Auto Diff 06/08/2017 [facility] White Blood 7.7 10^3/uL N 3.5-10.[address] [place] [address] [phone] Red Blood Count 4.69 10^6/uL N 4.0-5.4 [...] Cells % 0.1 Laboratory test finding 06/08/2017 [facility] Lipase 18 U/L N 11.0-82.[address] [place] [address] [phone] CRP High Sensitivity 3.72 mg/L 58 HCG < 0.60 mIU/mL 59 Comp Metabolic Panel 06/08/2017 [facility] Sodium 134 mmol/L N 133-145 [address] [place] [address] [phone] Potassium 3.5 mmol/L N 3.5-5.0 Chloride 103 [...] Egfr Non- 84.0 >60 Egfr 108.1 >60 60 Urine Culture And 06/08/2017 [facility] Urine Culture SEE RESULT [address] [place] [address] [phone] Comp Metabolic 04/14/2017 [facility] Sodium 136 mmol/L N 133- [address] [place] [address] [phone] Potassium 3.9 mmol/L N 3.5-5.0 Chloride 102 [...] 76.1 N >60 Egfr 97.9 N >60 62 Laboratory test finding 04/14/2017 [facility] Amylase 40 U/L N 29-[address] [place] [address] [phone] Lipase 40 U/L N 11.0-82.0 Drug Abuse 20 04/13/2017 [facility] Urine Amphetamine Negative ng/mL N [address] [place] [address] [phone] Urine Barbiturates Negative ng/mL N 64 Urine Benzodiazepines Negative ng/mL N 65 Urine Cocaine Negative ng/mL N 66 Urine Phencyclidine Negative ng/mL N Cutoff: 25 Urine Tetrahydrocannabinol Negative ng/mL N Cutoff: 50 67 Creatinine, Urine 122.2 mg/dL N Specific [place] 1.004 N pH 7.4 N Oxidants Negative N 68 Adulterants Comment Normal N Codeine, Ur Not Detected ng/mL N Cutoff: 25 69 Bxsinxj-1-[id number]-glucuronide, Ur Not Detected ng/mL N 70 Morphine, Ur Not Detected ng/mL N Cutoff: 25 71 Zxdxqhfi-1-lyek-glucuronide, U Not Detected ng/mL N 72 6-monoacetylmorphine, Ur Not Detected ng/mL N Cutoff: 25 73 Hydrocodone, Ur Not Detected ng/mL N Cutoff: 25 74 Norhydrocodone, Ur Not Detected ng/mL N Cutoff: 25 75 Dihydrocodeine, Ur Not Detected ng/mL N Cutoff: 25 76 Hydromorphone, Ur Not Detected ng/mL N Cutoff: 25 77 Rschnfpssfrpy5gezuadgqctgvcnh Not Detected ng/mL N 78 Oxycodone, Ur Present ng/mL N Cutoff: 25 79 Noroxycodone, Ur Present ng/mL N Cutoff: 25 80 Oxymorphone, Ur Not Detected ng/mL N Cutoff: 25 81 Agarnczwwuo-5-dzxk-glucuronide Present ng/mL N 82 Noroxymorphone, Ur Present ng/mL N Cutoff: 25 83 Fentanyl, Ur Not Detected ng/mL N Cutoff: 2 84 Norfentanyl, Ur Not Detected ng/mL N Cutoff: 2 85 Meperidine, Ur Not Detected ng/mL N Cutoff: 25 86 Normeperidine, Ur Not Detected ng/mL N Cutoff: 25 87 Naloxone, Ur Not Detected ng/mL N Cutoff: 25 88 Pztoydez-7-xwla-glucuronide, U Not Detected ng/mL N 89 Methadone, Ur Not Detected ng/mL N Cutoff: 25 90 Eddp, Ur Not Detected ng/mL N Cutoff: 25 91 Propoxyphene, Ur Not Detected ng/mL N Cutoff: 25 92 Norpropoxyphene, Ur Not Detected ng/mL N Cutoff: 25 93 Tramadol, Ur Not Detected ng/mL N Cutoff: 25 94 O-desmethyltramadol, Ur Not Detected ng/mL N Cutoff: 25 95 Tapentadol, Ur Not Detected ng/mL N Cutoff: 25 96 N-desmethyltapentadol, Ur Not Detected ng/mL N Cutoff: 50 97 Kxjskkicor-vxci-jhaqilgaisa, U Not Detected ng/mL N 98 Buprenorphine, Ur Not Detected ng/mL N Cutoff: 5 99 Norbuprenorphine, Ur Not Detected ng/mL N Cutoff: 5 100 Norbuprenorphine glucuronide Not Detected ng/mL N Cutoff: 20 101 Opioid Interpretation See Comment N 102 Laboratory test 04/10/2017 [facility] TSH (Thyroid 0.66 mcIU/mL N 0.34-5.[address] [place] [address] [phone] Vitamin B12 197 pg/mL N 180-914 103 Glucose 101 mg/dL High 70-100 CBC Auto 12/15/2016 [facility] White Blood 13.8 10^3/uL High 3.5-10.[address] Count [place], [place] [id number] [phone] Red Blood Count 4.69 10^6/uL N 4.0-5.4 [...] % 0 N Comp Metabolic Panel 12/15/2016 [facility] Sodium 137 mmol/L N 133-145 [address] [place] [address] [phone] Potassium 3.6 mmol/L N 3.5-5.0 Chloride 104 [...] 98.5 N >60 Egfr 126.6 N >60 104 Laboratory test finding 12/15/2016 [facility] Lipase 32 U/L N 11.0-82.0 [address] [place] [address] [phone] Amylase 37 U/L N 29-103 1 Because ethnic data is not [...] 5 Kidney failure <15 (or dialysis) 2 [facility] Severe Sepsis and Septic Shock Management [...] 5 Kidney failure <15 (or dialysis) 4 Critical Result CO2:12 Called to [id number] at: 20:45:25 by:[id number] Read back by:[id number] 5 <5.0 Negative 5.0 - 25.0 Indeterminate (Repeat testing recommended after 72 hours) >25.0 Positive Perimenopausal women can display HCG levels of up to 20 mIU/mL 6 Desirable: <150 Borderline High: 150-199 High: 200-499 Very High: >500 7 SEE RESULT BELOW Name: ABBY CARLTON : [address]: Clemente Finley MD Acct: [id number] Unit: [id number] AGE: 37 Location: [facility] [id number] Re07/27/18 SEX: F Status: ADM IN SPEC: [id number] EH: 07/27/[address]: Arley Mason MD REQ: [id number] RECD: 07/27/18 STATUS: LOIDA MCKNIGHT DR: Malina Blount UNDERWRITING CLERK _ SOURCE: URINE SPDESC: ORDERED: Urine Culture Procedure Result Reported Site Urine Culture Final 07/29/18- 1001 ML No growth of clinically significant organisms * ML - Main Lab . END OF REPORT DEPARTMENT OF PATHOLOGY, [address] [place] [address] Francisco Marques M.D. Director [facility] # [id number] 8 SEE RESULT BELOW Name: ABBY CARLTON : [address]: Heydi So DO Acct: [id number] Unit: [id number] AGE: 37 Location: [place] [address] Re05/28/18 Dis: 05/29/18 SEX: F Status: DIS Jonathan SPEC: [id number] EH: 05/29/[address]: Solomon Rey MD REQ: [id number] RECD: 05/29/18 STATUS: LOIDA MCKNIGHT DR: Malina Blount UNDERWRITING CLERK _ SOURCE: URINE SPDESC: ORDERED: Urine Culture Procedure Result Reported Site Urine Culture Final 05/30/18- 1053 ML No growth of clinically significant organisms * ML - Main Lab . END OF REPORT DEPARTMENT OF PATHOLOGY, [address] [place] [address] Francisco Marques M.D. Director [facility] # [id number] 9 <5.0 Negative 5.0 - 25.0 Indeterminate (Repeat testing recommended after 72 hours) >25.0 Positive Perimenopausal women can display HCG levels of up to 20 mIU/mL 10 Unable to report test result due to hemolysis. 11 Because ethnic data is not always readily [...] 15-29 5 Kidney failure <15 (or dialysis) 12 Specimen Hemolyzed. Result may not be valid. Unable to report test result due to hemolysis. Verbal to [id number] by [id number] at 1341 on 1341.Results read back accurately 13 Unable to report test result due to hemolysis. 14 Specimen hemolyzed. Result may not be valid. [facility] Severe Sepsis and Septic Shock Management Bundle Measure requires all lactic acids initially measuring >2.0 mmol/L be repeated. 15 Desirable: <150 Borderline High: 150-199 High: 200-499 Very High: >500 16 Desirable: <200 Borderline High: 200-239 High: >239 17 Low: <40 Desirable: 40-60 High: >60 18 Desirable: <100 Near Optimal: 100-129 Borderline High: 130-159 High: 160-189 Very High: >189 19 SEE RESULT BELOW Name: ABBY CARLTON : [address]: Abdelrahman Collazo MD Acct: [id number] Unit: [id number] AGE: 37 Location: ED Re05/26/18 SEX: F Status: DEP ER SPEC: [id number] EH: 05/26/18-UNK SUBM [address]: Alicia CRUZ REQ: [id number] RECD: 05/26/18150 STATUS: LOIDA MCKNIGHT DR: [facility] Malina Blount UNDERWRITING CLERK _ SOURCE: URINE SPDESC: ORDERED: Urine Culture Procedure Result Reported Site Urine Culture Final 05/28/18- 851 ML No growth of clinically significant organisms * ML - Main Lab . END OF REPORT DEPARTMENT OF PATHOLOGY, [address] [place] [address] Francisco Marques M.D. Director [facility] # [id number] 20 SEE RESULT BELOW Name: ABBY CARLTON : [address]: Slava Westbrook MD Acct: [id number] Unit: [id number] AGE: 37 Location: [place] Re04/12/18 SEX: F Status: DEP SDC SPEC: [id number] EH: 04/12/[address]: Slava Westbrook MD REQ: [id number] RECD: 04/12/18 STATUS: SOUT _ ORDERED: LEVEL 1 FINAL DIAGNOSIS Foot, right, hardware removal: Foreign body (orthopedic hardware) (gross diagnosis) PRE-OPERATIVE DIAGNOSIS Hardware right foot GROSS DESCRIPTION The specimen is received fresh labeled, Hardware Right Foot, and consists of a 2.6 by up to 1.1 x 0.1 cm blue metallic plate with multiple ovoid holes. The following inscription is identified: [id number]. Received separately in the same container are five donnelly metallic threaded two partially threaded spline headed screws ranging from 2.0 x 0.2 cm to 3.2 x 0.2 cm. Per established hospital medical staff protocol, no tissue is submitted. Gross only. Signed by and Reported on: Lavern Hewitt MD 04/13/18 1142 END OF REPORT DEPARTMENT OF PATHOLOGY, [address], [place], [place] [address] Francisco Marques M.D. Director [facility] # [id number] 21 SEE RESULT BELOW Name: ABBY CARLTON : [address]: Chasidy Ivy MD Acct: [id number] Unit: [id number] AGE: 37 Location: [place] [address] Re03/29/18 SEX: F Status: ADM IN SPEC: [id number] EH: 03/29/[address] [facility] [address]: Abdelrahman Collazo MD REQ: [id number] RECD: 03/29/18 STATUS: LOIDA MCKNIGHT DR: Malina Blount UNDERWRITING CLERK _ SOURCE: URINE SPDESC: ORDERED: Urine Culture Procedure Result Reported Site Urine Culture Final 03/30/18- 0812 ML No growth of clinically significant organisms * ML - Main Lab . END OF REPORT DEPARTMENT OF PATHOLOGY, [address] [place] [address] Francisco Marques M.D. Director [facility] # [id number] 22 <5.0 Negative 5.0 - 25.0 Indeterminate (Repeat testing recommended after 72 hours) >25.0 Positive Perimenopausal women can display HCG levels of up to 20 mIU/mL 23 Result TnIDx:0.14 Called to [id number] at: 22:53:12 by:[id number] Read back by: [id number] 24 Because ethnic data is not always readily [...] 15-29 5 Kidney failure <15 (or dialysis) 25 Specimen Hemolyzed. Result may not be valid. Unable to report test result due to hemolysis. 26 Unable to report test result due to hemolysis. 27 [facility] Severe Sepsis and Septic Shock Management Bundle Measure requires all lactic acids initially measuring >2.0 mmol/L be repeated. 28 Because ethnic data is not always readily [...] 15-29 5 Kidney failure <15 (or dialysis) 29 <5.0 Negative 5.0 - 25.0 Indeterminate (Repeat testing recommended after 72 hours) >25.0 Positive Perimenopausal women can display HCG levels of up to 20 mIU/mL 30 SEE RESULT BELOW Name: ABBY CARLTON : [address]: Chasidy Ivy MD Acct: [id number] Unit: [id number] AGE: 37 Location: [place] [address] Re01/15/18 SEX: F Status: ADM IN SPEC: [id number] EH: 01/14/[address] [facility] [address]: Larry Ricks MD REQ: [id number] RECD: 01/14/18 STATUS: COMP IVONNE DR: Malina Blount UNDERWRITING CLERK _ SOURCE: URINE SPDESC: ORDERED: Urine Culture Procedure Result Reported Site Urine Culture Final 01/16/18- 1141 ML No growth of clinically significant organisms * ML - Main Lab . END OF REPORT DEPARTMENT OF PATHOLOGY, [address] [place] [address] Francisco Marques M.D. Director [facility] # [id number] 31 SEE RESULT BELOW Name: ABBY CARLTON : [address]: Malina Blount NP Acct: [id number] Unit: [id number] AGE: 37 Location: [facility] Re11/05/17 SEX: F Status: REG REF SPEC: [id number] EH: 11/05/17-[address]: Malina Blount NP REQ: [id number] RECD: 11/05/17 STATUS: COMP _ SOURCE: URINE SPDESC: ORDERED: Urine Culture COMMENTS: [id number] Urine Source: Clean Catch Procedure Result Reported Site Urine Culture Final 11/07/17- 0843 ML Organism 1 ESCHERICHIA COLI [place] Count >100,000 (Many) CFU/ML 1. ESCHERICHIA COLI [...] . END OF REPORT DEPARTMENT OF PATHOLOGY, [address] [place] [address] Francisco Marques M.D. Director [facility] # [id number] 32 SEE RESULT BELOW Name: ABBY CARLTON : [address]: Jose Lorenzo MD Acct: [id number] Unit: [id number] AGE: 37 Location: ED Re09/04/17 SEX: F Status: DEP ER SPEC: [id number] EH: 09/04/[address]: Lavern CRUZ REQ: [id number] RECD: 09/04/17 STATUS: LOIDA MCKNIGHT DR: Leila Blount UNDERWRITING CLERK _ SOURCE: URINE SPDESC: ORDERED: Urine Culture Procedure Result Reported Site Urine Culture Final 09/06/17- 1010 ML Mixed iban; possible contamination. Suggest resubmission. * ML - Main Lab . END OF REPORT DEPARTMENT OF PATHOLOGY, [address] [place] [address] Francisco Marques M.D. Director [facility] # [id number] 33 Because ethnic data is not always readily [...] 15-29 5 Kidney failure <15 (or dialysis) 34 Low risk: <1.00 Average risk: 1.00-3.00 High risk: >3.00 35 <5.0 Negative 5.0 - 25.0 Indeterminate (Repeat testing recommended after 72 hours) >25.0 Positive Perimenopausal women can display HCG levels of up to 20 mIU/mL 36 [facility] Severe Sepsis and Septic Shock Management Bundle Measure requires all lactic acids initially measuring >2.0 mmol/L be repeated. 37 Because ethnic data is not always readily [...] 15-29 5 Kidney failure <15 (or dialysis) 38 Acute inflammation: >10.00 39 <5.0 Negative 5.0 - 25.0 Indeterminate (Repeat testing recommended after 72 hours) >25.0 Positive Perimenopausal women can display HCG levels of up to 20 mIU/mL 40 Desirable: <150 Borderline High: 150-199 High: 200-499 Very High: >500 41 Desirable: <200 Borderline High: 200-239 High: >239 42 Low: <40 Desirable: 40-60 High: >60 43 Desirable: <100 Near Optimal: 100-129 Borderline High: 130-159 High: 160-189 Very High: >189 44 Reference ranges based on room air. 45 Because ethnic data is not always readily [...] 15-29 5 Kidney failure <15 (or dialysis) 46 Please note: The following may produce a false positive D Dimer test: - Rheumatoid factor greater than 60 IU/ml - Plasma hemoglobin greater than 0.05 gm/dl - Bilirubin greater than 50 mg/dl - Lipids greater than 1000 mg/dl - FDP greater than 20 ug/ml 47 Acute inflammation: >10.00 48 Test Performed by: [address] [address] 49 Unable to evaluate urinalysis dipstick results due to interfering color. Notified [id number] 1835 06/08/17. 50 Unable to evaluate urinalysis dipstick results due to interfering color. Notified [id number] 1835 06/08/17. 51 Unable to evaluate urinalysis dipstick results due to interfering color. Notified [id number] 1835 06/08/17. 52 Unable to evaluate urinalysis dipstick results due to interfering color. Notified [id number] 1835 06/08/17. 53 Unable to evaluate urinalysis dipstick results due to interfering color. Notified [id number] 1835 06/08/17. 54 Unable to evaluate urinalysis dipstick results due to interfering color. Notified [id number] 1835 06/08/17. 55 Unable to evaluate urinalysis dipstick results due to interfering color. Notified [id number] 1835 06/08/17. 56 Unable to evaluate urinalysis dipstick results due to interfering color. Notified [id number] 1835 06/08/17. 57 Unable to evaluate urinalysis dipstick results due to interfering color. Notified [id number] 1835 06/08/17. 58 Low risk: <1.00 Average risk: 1.00-3.00 High risk: >3.00 59 <5.0 Negative 5.0 - 25.0 Indeterminate (Repeat testing recommended after 72 hours) >25.0 Positive Perimenopausal women can display HCG levels of up to 20 mIU/mL 60 Because ethnic data is not always readily [...] 15-29 5 Kidney failure <15 (or dialysis) 61 SEE RESULT BELOW Name: ABBY CARLTON: [address]: Jose Lorenzo MD Acct: [id number] Unit: [id number] AGE: 36 Location: ED Re06/08/17 SEX: F Status: DEP ER SPEC: [id number] EH: 06/08/[address]: Lavern CRUZ REQ: [id number] RECD: 06/08/17 STATUS: LOIDA MCKNIGHT DR: [facility] Malina Blount UNDERWRITING CLERK _ SOURCE: URINE SPDESC: ORDERED: Urine Culture Procedure Result Reported Site Urine Culture Final 06/10/17- 0815 ML No growth of clinically significant organisms * ML - MAIN LAB (PSC1) . END OF REPORT * ML=Testing performed at Main Lab DEPARTMENT OF PATHOLOGY, [address] [place] [address] Francisco Marques M.D. Director [facility] # [id number] 62 Because ethnic data is not always readily [...] 15-29 5 Kidney failure <15 (or dialysis) 63 REFERENCE VALUE Cutoff: 500 64 REFERENCE VALUE Cutoff: 200 65 REFERENCE VALUE Cutoff: 100 66 REFERENCE VALUE Cutoff: 150 67 ADDITIONAL INFORMATION This report is intended for use in clinical monitoring or management of patients. It is not intended for use in employment-related testing. 68 REFERENCE VALUE Cutoff: 200 mg/L 69 Tylenol 3 70 Metabolite of codeine REFERENCE VALUE Cutoff: 100 71 Coco Schmid, Contin; Also a minor metabolite (10%) of codeine and can be seen in low concentrations (<2,000 ng/mL) with poppy seed ingestion. 72 Metabolite of morphine REFERENCE VALUE Cutoff: 100 73 Metabolite of heroin 74 Lortab, Langtry, Vicodin; Also a very minor metabolite of codeine and impurity (<1%) of oxycodone. 75 Metabolite of hydrocodone 76 Metabolite of hydrocodone 77 Dilaudid, Exalgo; Also a metabolite of hydrocodone and a minor (<5%) metabolite of morphine. 78 Metabolite of hydromorphone REFERENCE VALUE Cutoff: 100 79 Endocet, Percocet, Oxycontin 80 Metabolite of oxycodone 81 Numorphan, Opana; Also a metabolite of oxycodone. 82 Metabolite of oxymorphone REFERENCE VALUE Cutoff: 100 83 Metabolite of oxymorphone 84 Actiq, Duragesic, Fentora 85 Metabolite of fentanyl 86 Demerol 87 Metabolite of meperidine 88 Narcan 89 Metabolite of naloxone REFERENCE VALUE Cutoff: 100 90 Dolophine 91 Metabolite of methadone 92 Darvon, Darvocet 93 Metabolite of propoxyphene 94 Tradol, Ultram, Ultracet 95 Metabolite of tramadol 96 Nucynta 97 Metabolite of tapentadol 98 Metabolite of tapentadol REFERENCE VALUE Cutoff: 100 99 Buprenex, Suboxone 100 Metabolite of buprenorphine 101 Metabolite of buprenorphine 102 Test detected the presence of oxycodone and several metabolites (noroxycodone, noroxymorphone, and raqvxfzvgcq-8-nwtb-glucuronide). Suspect use of oxycodone or possibly oxycodone and oxymorphone within the past three days. ADDITIONAL INFORMATION This test was developed and its performance characteristics determined by [facility] in a manner consistent with CLIA requirements. This test has not been cleared or approved by the U.S. Food and Drug Administration. Test Performed by: [facility] [address] [place] [address] 103 Normal Range 180 to 914 Indeterminate Range 145 to 180 Deficient Range <145 104 Because ethnic data is not always readily [...] dialysis) Procedures Date Code Description Status 04/12/2018 89161 Implant Nerve End Into Bone Or Muscle Completed 04/12/2018 06712 Excision Neuroma, Cutaneous Nerve Completed 04/12/201816202 Removal Implant Deep Wire,Screw Nail,Abdiel Or Plate Completed 04/12/201846208 Removal Implant Deep Wire,Screw Nail,Abdiel Or Plate Completed 03/29/2018 97694 ECHO Transthorasic Realtime 2D W Doppler & Color Flow Hosp Completed 02/18/2018 28598 Injection,Anesthetic Agent, Other Peripheral Nerve Branch Completed 01/20/2018 19807 Endoscopy Upper GI Biopsy Completed 10/14/2017 95270 Short Leg Cast Completed 10/06/2017 92831 Short Leg Cast Completed 10/01/2017 62006 FX Tarsal Care Completed 10/01/2017 64047 FX Tarsal Care Completed 10/01/2017 05055 FX Metatarsal Care Completed 10/01/2017 64729 FX Metatarsal Care Completed 10/01/2017 08643 Open TX Metatarsal FX,Incl Intl Fixation When Performed Completed 10/01/2017 15223 Dislocation Tarsometatarsal JT W/Wo Fixation Open TX Completed 10/01/2017 81546 Dislocation Tarsometatarsal JT W/Wo Fixation Open TX Completed 10/01/2017 87997 Dislocation Tarsometatarsal JT W/Wo Fixation Open TX Completed 10/01/2017 80216 Dislocation Tarsometatarsal JT W/Wo Fixation Open TX Completed 06/12/2017 01484 ECHO Transthorasic Realtime 2D W Doppler & Color Flow Hosp Completed 06/12/2017 77385 EKG, Interpretation Only Completed Encounters Type Date Location Provider Dx Diagnosis Office Visit 06/01/2018 [facility] Malina Blount K85.20 Alcohol induced 4:00p Medicine - N.P. acute pancreatitis [place] without necrosis or infct K21.9 Gastro-esophageal reflux disease without esophagitis Office Visit 05/29/2018 9:55a [facility] Lloyd M54.9 Dorsalgia, Assoc,pc ANTHONY Flores unspecified Hospitalists J45.20 Mild intermittent asthma, uncomplicated K85.20 Alcohol induced acute pancreatitis without necrosis or infct Office Visit 05/28/2018 [facility] Gabino K85.20 Alcohol induced 9:54a Assoc,ANTHONY Moe acute pancreatitis Hospitalists without necrosis or infct K70.10 Alcoholic hepatitis without ascites J45.909 Unspecified asthma, uncomplicated F41.9 Anxiety disorder, unspecified Office Visit 04/01/2018 [facility] Glenda K85.20 Alcohol induced 11:13a Assoc,julia Melton D.O. acute pancreatitis Hospitalists without necrosis or infct F41.9 Anxiety disorder, unspecified F10.19 Alcohol abuse with unspecified alcohol-induced disorder M54.9 Dorsalgia, unspecified Office Visit 03/31/2018 [facility] Biju, K85.20 Alcohol induced 11:13a julia Denson M.D. acute Hospitalists pancreatitis without necrosis or infct E16.2 Hypoglycemia, unspecified F10.19 Alcohol abuse with unspecified alcohol-induced disorder F41.9 Anxiety disorder, unspecified M54.9 Dorsalgia, unspecified [facility] K85.20 Alcohol induced 11:12a julia Denson M.D. acute Hospitalists pancreatitis without necrosis or infct F10.19 Alcohol abuse with unspecified alcohol-induced disorder E16.2 Hypoglycemia, unspecified F41.9 Anxiety disorder, unspecified [facility] K[facility].20 Alcohol induced 11:11a julia Denson M.D. acute Hospitalists pancreatitis without necrosis or infct E16.2 Hypoglycemia, unspecified F10.19 Alcohol abuse with unspecified alcohol-induced disorder F41.9 Anxiety disorder, unspecified Office Visit 03/23/2018 10:00a Orthopedic Slava Westbrook, M79.671 Pain in right Services Of [facility] M.D. foot G57.91 Unspecified mononeuropathy of right lower limb Office Visit 03/12/2018 2:00p [facility] Internal Malina Blount, R03.0 Elevated Medicine [...] Pain in right foot [facility] K85.20 Alcohol induced 10:35a Assoc,julia Michael MD acute Hospitalists pancreatitis without necrosis or infct K29.70 Gastritis, unspecified, without bleeding F10.10 Alcohol abuse, uncomplicated F17.210 Nicotine dependence, cigarettes, uncomplicated Office Visit 01/20/2018 10:35a [facility] R10.13 Epigastric pain Assoc,julia Finley M.D. Hospitalists K85.20 Alcohol induced acute pancreatitis without necrosis or infct F10.10 Alcohol abuse, uncomplicated Z72.0 Tobacco use Office Visit 01/20/2018 [facility] Gastroenterology Sangeeta R10.13 Epigastric pain 7:00a MD Maksim K85.20 Alcohol induced acute pancreatitis without necrosis or infct K21.9 Gastro-esophageal reflux disease without esophagitis Office Visit 01/19/2018 [facility] K85.20 Alcohol induced 10:34a Assoc,julia Finley M.D. acute pancreatitis Hospitalists without necrosis or infct F10.10 Alcohol abuse, uncomplicated R10.13 Epigastric pain Z72.0 Tobacco use Office Visit 01/18/2018 [facility] K85.20 Alcohol induced 10:34a Assoc,julia Finley M.D. acute pancreatitis Hospitalists without necrosis or infct R10.13 Epigastric pain F10.10 Alcohol abuse, uncomplicated Office Visit 01/17/2018 [facility] R10.13 Epigastric pain 10:34a Assoc,julia Lancaster, UNDERWRITING CLERK Hospitalists K85.20 Alcohol induced acute pancreatitis without necrosis or infct F10.10 Alcohol abuse, uncomplicated Office Visit 01/16/2018 [facility] R10.13 Epigastric pain 10:33a Assoc,julia Lancaster, UNDERWRITING CLERK Hospitalists K85.20 Alcohol induced acute pancreatitis without necrosis or infct F10.10 Alcohol abuse, uncomplicated Office Visit 01/15/2018 10:33a [facility] Glenda R10.13 Epigastric pain Assoc,julia Melton D.O. Hospitalists K85.20 Alcohol induced acute pancreatitis without necrosis or infct Office Visit 11/05/2017 11:20a [facility] Internal Malina Blount, Z00.00 Encr for Medicine - N.P. general adult [place] medical exam w/o abnormal findings F33.9 Major depressive disorder, recurrent, unspecified J45.20 Mild intermittent asthma, uncomplicated F17.210 Nicotine dependence, cigarettes, uncomplicated N39.0 Urinary tract infection, site not specified K21.9 Gastro-esophageal reflux disease without esophagitis S93.324D Dislocation of tarsometatarsal joint of right foot, subs Office Visit 09/28/2017 Orthopedic Casey Yu, S92.334A Nondisp fx of 3:45p Services Of MD cuevas metatarsal C.M.A. bone, right foot, init S92.344A Nondisp fx of fourth metatarsal bone, right foot, init S93.324A Dislocation of tarsometatarsal joint of right foot, init Office Visit 09/22/2017 Keo Yu, S92.334A Nondisp fx of 2:00p Services Of MD cuevas metatarsal C.M.A. bone, right foot, init S92.344A Nondisp fx of fourth metatarsal bone, right foot, init Office Visit 09/10/2017 9:00a Sally Blount, F33.9 Major depressive Medicine - N.P. 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 pancreatitis Hospitalists Office Visit 06/13/2017 7:16a [facility] Norma Eller, J18.9 Pneumonia, Assoc,pc N.P. unspecified Hospitalists organism J45.20 Mild intermittent asthma, uncomplicated Office Visit 06/12/2017 10:34a Pulmonology And Lazara R06.02 Shortness of Sleep Services Of MD Moses breath [facility] N20.1 Calculus of ureter R00.0 Tachycardia, unspecified R10.12 Left upper quadrant pain Office Visit 06/03/2017 11:20a [facility] Internal Mitesh Peraza R07.89 Other chest pain Medicine - Felicita Kimball [place] Office Visit 04/13/2017 4:00p [facility] Internal Malina Blount, K86.0 Alcohol- induced Medicine - N.P. chronic Dexter pancreatitis M54.5 Low back pain Office Visit 03/26/2017 10:40a [facility] Internal Malina Blount M54.5 Low back pain Medicine - N.P. [place] F41.1 Generalized anxiety disorder K85.20 Alcohol induced acute pancreatitis without necrosis or infct M79.2 Neuralgia and neuritis, unspecified Office Visit 03/08/2017 [facility] K85.20 Alcohol induced 9:33a Assoc,pc Kendy, UNDERWRITING CLERK acute Hospitalists pancreatitis without necrosis or infct M54.5 Low back pain J45.20 Mild intermittent asthma, uncomplicated G89.29 Other chronic pain Office Visit 03/07/2017 [facility] K85.20 Alcohol induced 9:33a Assoc,pc Kendy, UNDERWRITING CLERK acute Hospitalists pancreatitis without necrosis or infct M54.5 Low back pain J45.20 Mild intermittent asthma, uncomplicated G89.29 Other chronic pain Office Visit 03/06/2017 [facility] Raul Sheth K85.20 Alcohol induced 9:32a Assoc,julia ELLINGTON M.D. acute Hospitalists pancreatitis without necrosis or infct M54.5 Low back pain J45.20 Mild intermittent asthma, uncomplicated G89.29 Other chronic pain Office Visit 02/27/2017 4:20p [facility] Internal Malina Varn, M54.5 Low back pain Medicine - N.P. [place] J45.901 Unspecified asthma with (acute) exacerbation Office Visit 01/27/2017 2:20p [facility] Internal Malina Varn, R11.2 Nausea with Medicine - N.P. vomiting, Dexter unspecified M54.5 Low back pain F41.1 Generalized anxiety disorder G47.00 Insomnia, unspecified B35.3 Tinea pedis Office Visit 12/24/2016 3:00p [facility] Internal Malina Varn, K85.90 Acute pancreatitis Medicine - N.P. without necrosis Dexter or infection, unsp R11.2 Nausea with vomiting, unspecified M54.5 Low back pain Office Visit 12/10/2016 4:00p [facility] Internal Malina Arlenen, J18.9 Pneumonia , Medicine - N.P. unspecified [place]ter organism K85.90 Acute pancreatitis without necrosis or infection, unsp R11.2 Nausea with vomiting, unspecified Office Visit 11/22/2016 [facility] Chasidy Ivy J18.9 Pneumonia, 8:29a Assjulia arteaga M.D. unspecified Hospitalists organism K85.90 Acute pancreatitis without necrosis or infection, unsp Office Visit 11/21/2016 [facility] Barry Torres18.9 Pneumonia, 8:29a Assjulia arteaga M.D. unspecified Hospitalists organism M54.5 Low back pain K85.90 Acute pancreatitis without necrosis or infection, unsp J45.20 Mild intermittent asthma, uncomplicated Office Visit 11/20/2016 8:28a [facility] Barbara Reddy18.9 Pneumonia, Assoc,julia Issa M.D. unspecified Hospitalists organism K85.90 Acute pancreatitis without necrosis or infection, unsp Office Visit 11/19/2016 8:27a [facility] Barbara J18.9 Pneumonia, Assoc,julia Issa M.D. unspecified Hospitalists organism M54.5 Low back pain K85.90 Acute pancreatitis without necrosis or infection, unsp Office Visit 11/18/[address] [facility] J18.9 Pneumonia, 8:26a Assoc,julia ELLINGTON M.D. unspecified Hospitalists organism M54.5 Low back pain K85.90 Acute pancreatitis without necrosis or infection, unsp J45.20 Mild intermittent asthma, uncomplicated Office Visit 11/15/2016 [facility] K85.20 Alcohol induced 10:39a Assjulia arteaga M.D. acute Hospitalists pancreatitis without necrosis or infct N30.00 Acute cystitis without hematuria M54.5 Low back pain F10.231 Alcohol dependence with withdrawal delirium Office Visit 11/14/2016 [facility] Miller Carmina K85.20 Alcohol induced 2:34p Assjulia arteaga D.O. acute pancreatitis Hospitalists without necrosis or infct [facility] 2:33p Asschandler,julia Dalton D.O. acute pancreatitis Hospitalists without necrosis or infct N30.00 Acute cystitis without hematuria F10.231 Alcohol dependence with withdrawal delirium [facility] Alcohol induced 2:32p Assjulia arteaga D.O. acute pancreatitis Hospitalists without necrosis or infct F10.231 Alcohol dependence with withdrawal delirium Office Visit 11/12/2016 [facility] K85.20 Alcohol induced 10:38a julia Denson M.D. acute pancreatitis Hospitalists without necrosis or infct M54.5 Low back pain F10.231 Alcohol dependence with withdrawal delirium Office Visit 11/11/2016 [facility] K85.20 Alcohol induced 10:38a julia Denson M.D. acute pancreatitis Hospitalists without necrosis or infct M54.5 Low back pain F10.10 Alcohol abuse, uncomplicated Office Visit 11/10/2016 [facility] K85.20 Alcohol induced 10:35a Assoc,pc Ryland Hawthorne acute Hospitalists pancreatitis without necrosis or infct M54.5 Low back pain F10.10 Alcohol abuse, uncomplicated Office Visit 05/05/2013 10:00a Orthopedic Corinna Lares, 354.0 [facility] Felicita Garcia C.M.A. 727.42 Ganglion Tendon Sheath Plan of Treatment Future Appointment(s):09/21/2018 2:20 pm - Malina Blount N.P. at [facility] Internal Medicine [facility]08/06/2018 - Malina Blount N.P.K85.20 Alcohol induced acute pancreatitis without necrosis or infecComments:To help you with your recovery I urge you to avoid consuming alcohol. To help you with your pain I have given you a short course of Oxycodone.Follow up:Physical with pap in 1 [id number] Diarrhea, unspecifiedComments:For your diarrhea I would like you to follow a BRAT diet.B - BananasR - RiceA - ApplesauceT - Tea and toastAvoid dairy products, spicy, greasy, and gassy foods.Once your bowels start to take form, slowly add foods back in. I think you should avoid dairy all the time.F33.9 Major depressive disorder, recurrent, unspecifiedNew Medication: Seroquel 50 mg - One po dailyComments:For your depression:I have boosted your Seroquel to 50 mg.
[2018-08-21 21:32] LABS: ABS Basophils 0.1 10^3/ul (0-0.2); ABS Eosinophils 0.2 10^3/ul (0-0.6); ABS Lymphocytes 2.5 10^3/ul (1.0-4.8); ABS Monocytes 0.9 10^3/ul (0-0.8); ABS Neutrophils 10.8 10^3/ul (1.5-7.7); ABS Nucleated RBC 0 10^3/ul; Eosinophil % 1.2 %; Hematocrit 44 % (35-47); Hemoglobin 14.4 g/dl (12.0-16.0); Mean Corpuscular HGB Conc 33 g/dl (31-36); Mean Corpuscular Hemoglobin 32 pg (27-31); Mean Corpuscular Volume 96 fL (80-97); Mean Platelet Volume 8.3 fL (7.4-10.4); Nucleated Red Blood Cells % 0; Platelet Count 220 10^3/ul (150-450); Red Blood Count 4.58 10^6/ul (4.00-5.40); Red Cell Distribution Width 14 % (10.5-15); White Blood Count 14.4 10^3/ul (3.5-10.8)
[2018-08-21 21:52] LABS: ALT 23 U/L (7-52); AST 55 U/L (13-39); Albumin/Globulin Ratio 1.3 (1-3); Alkaline Phosphatase 122 U/L (34-104); Anion Gap 5 mmol/L (2-11); BUN/Creatinine Ratio 7.7 (8-20); Blood Urea Nitrogen 7 mg/dL (6-24); C Reactive Protein 2.58 mg/L (<8.01); CO2 Carbon Dioxide 23 mmol/L (22-32); Chloride 105 mmol/L (101-111); EGFR African American 84.6 (>60); EGFR Non-African American 69.9 (>60); Glucose 109 mg/dL (70-100); Potassium 3.8 mmol/L (3.5-5.0); Sodium 133 mmol/L (135-145)
[2018-08-21 21:58] LABS: HCG Pregnancy < 0.60 mIU/mL
[2018-08-21 22:01] LABS: Urine Appearance Cloudy; Urine Bacteria Absent (Absent); Urine Bilirubin Negative (Negative); Urine Blood 3+ (Negative); Urine Color Amber; Urine Glucose Negative (Negative); Urine Ketones Negative (Negative); Urine Nitrite Negative (Negative); Urine Protein 2+(100 mg/dL) (Negative); Urine Red Blood Cell 3+(>10/hpf) (Absent); Urine Specific Gravity 1.027 (1.010-1.030); Urine Squamous Epithelial Cell Present (Absent); Urine Urobilinogen Negative (Negative); Urine White Blood Cell 2+(11-20/hpf) (Absent)
[2018-08-21 22:20] LABS: Alcohol < 10 mg/dL (<10)
[2018-08-21] MEDS ORDERED: NS 0.9% 1000 ML** 1,000 ML IV ONE (23:39)
[2018-08-21] MEDS ORDERED: Ondansetron INJ* 2 MG/ML VIAL IV ONE (23:39)
[2018-08-21] MEDS ORDERED: HYDROmorphone INJ1* 1 MG/ML SYRINGE IV ONE (23:44)
--- NOTE | 2018-08-22 00:30 | ED ---
Abdominal Pain/Female - HPI Summary HPI Summary: Patient complains of sudden onset upper abdominal pain this morning. History of recurrent pancreatitis. Admits to EtOH last night, which always triggers recurrence. Denies fever, cough, sore throat, CP, SOB, N/V/D, change in urine, change in BM, vaginal symptoms. Patient has been seen for same once or twice a month over the past 3 months. Medical history is none. Abdominal surgical history is none. - History of Current Complaint Chief Complaint: EDAbdPain Stated Complaint: ABD PAIN Time Seen by Provider: 08/21/18 23:31 Hx Obtained From: Patient Onset/Duration: Sudden Onset Timing: Constant Severity Initially: Severe Severity Currently: Severe Pain Intensity: 10 Pain Scale Used: 0-10 Numeric Location: Discrete At: RUQ, Discrete At: LUQ, Epigastric Radiates: Yes Radiates to: Back Character: Sharp Aggravating Factor(s): Nothing Alleviating Factor(s): Nothing Associated Signs and Symptoms: Positive: Negative Allergies/Adverse Reactions: Allergies Allergy/AdvReac Type Severity Reaction Status Date / Time azithromycin Allergy Severe Difficulty Verified 08/21/18 20:56 Breathing cephalexin [From Keflex] Allergy Severe Palpitation Verified 08/21/18 20:56 s ciprofloxacin Allergy Severe Difficulty Verified 08/21/18 20:56 Breathing codeine Allergy Severe Hives Verified 08/21/18 20:56 lorazepam Allergy Severe Altered Verified 08/21/18 20:56 Mental Status acetaminophen Allergy Intermediate Nausea And Verified 08/21/18 20:56 Vomiting Home Medications: Home Medications Diclofenac 1.3% PATCH (NF) [Flector 1.3% PATCH (NF)] 1 patch TOPICAL DAILY PRN 08/21/18 [History Confirmed 08/21/18] Melatonin 1 tab PO QPM PRN 08/21/18 [History Confirmed 08/21/18] PMH/Surg Hx/FS Hx/Imm Hx Endocrine/Hematology History: Reports: Hx Anemia - Hx OF YEARS AGO Denies: Hx Diabetes Cardiovascular History: Denies: Hx Hypercholesterolemia, Hx Hypertension, Other Cardiovascular Problems/Disorders Respiratory History: Reports: Hx Asthma - has an inhaler-doesn't use often Denies: Other Respiratory Problems/Disorders GI History: Reports: Hx Gastroesophageal Reflux Disease, Other GI Disorders - PANCREATITIS last admission 03/29/18-04/01/18 History: Reports: Hx Kidney Infection, Hx Kidney Stones, Other Problems/ Disorders - Urethral stent 2000-was at the time too much pressure on urethra Denies: Hx Renal Disease Musculoskeletal History: Reports: Hx Back Problems, Other Musculoskeletal History - right foot fracture repair-hardware in right foot Sensory History: Denies: Hx Contacts or Glasses, Hx Deafness, Hx Hearing Aid Opthamlomology History: Denies: Hx Contacts or Glasses Neurological History: Reports: Hx Headaches Denies: Other Neuro Impairments/Disorders Psychiatric History: Reports: Hx Anxiety - ON DAILY MEDS, Hx Depression - Hx OF NONE NOW, Hx Panic Disorder, Hx Post Traumatic Stress Disorder - No formal dx , Hx Inpatient Treatment, Hx Community Mental Health Tx, Hx Substance Abuse - alcohol Denies: Hx Attention Deficit Hyperactivity Disorder, Hx Eating Disorder, Hx Schizophrenia, Hx Bipolar Disorder, Hx Suicide Attempt, Hx of Violent Episodes Against Others - Surgical History Surgery Procedure, Year, and Place: 2000 Urethral stenting with [facility]- epidural. Screws in right foot Hx Anesthesia Reactions: No - Immunization History Date of Tetanus Vaccine: UTD Date of Influenza Vaccine: 03/2017 Infectious Disease History: No Infectious Disease History: Denies: Hx Clostridium Difficile, Hx Hepatitis, Hx Human Immunodeficiency Virus (HIV), Hx of Known/Suspected MRSA, Hx Shingles, Hx Tuberculosis, History Other Infectious Disease, Traveled Outside the [place] in Last 30 Days - Family History Known Family History: Positive: Other - cervical CA, brain tumor - Social History Alcohol Use: Weekly Alcohol Amount: ETOH use x 4 days ago Hx Substance Use: No Substance Use Type: Reports: None Substance Use 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 Hx Tobacco Use: Yes Smoking Status (MU): Heavy Every Day Tobacco Smoker Type: Cigarettes Amount Used/How Often: 1 ppd 24 years Length of Time of Smoking/Using Tobacco: 20 YRS Have You Smoked in the Last Year: Yes Review of Systems Constitutional: Negative Eyes: Negative ENT: Negative Cardiovascular: Negative Respiratory: Negative Positive: Abdominal Pain Genitourinary: Negative Musculoskeletal: Negative Skin: Negative Neurological: Negative Psychological: Normal All Other Systems Reviewed And Are Negative: Yes Physical Exam - Summary Physical Exam Summary: Tenderness to palpation all upper quadrants. Abdominal exam otherwise unremarkable. No CVA tenderness bilaterally. Triage Information Reviewed: Yes Vital Signs On Initial Exam: Initial Vitals Temp Pulse Resp BP Pulse Ox 97.3 F 101 18 144/109 97 08/21/18 20:53 02/23/19 20:53 08/21/18 20:53 08/21/18 20:53 08/21/18 20:53 Vital Signs Reviewed: Yes Appearance: Positive: Well-Appearing Skin: Positive: Warm Head/Face: Positive: Normal Head/Face Inspection Eyes: Positive: Normal Neck: Positive: Supple Respiratory/Lung Sounds: Positive: Clear to Auscultation Cardiovascular: Positive: Normal Abdomen Description: Positive: Other: Musculoskeletal: Positive: Normal Neurological: Positive: Normal Psychiatric: Positive: Normal AVPU Assessment: Alert - [place] Coma Scale Best Eye Response: 4 - Spontaneous Best Motor Response: 6 - Obeys Commands Best Verbal Response: 5 - Oriented Coma Scale Total: 15 Diagnostics - Vital Signs Vital Signs Temp Pulse Resp BP Pulse Ox 08/21/18 23:51 22 08/21/18 23:32 106 98 08/21/18 23:31 107 157/118 98 08/21/18 23:11 97.9 F 96 16 161/116 99 08/21/18 20:53 97.3 F 101 18 144/109 97 - Laboratory Lab Results: Lab Results 08/21/18 08/21/18 08/21/18 Range/Units 21:24 21:24 21:24 WBC 14.4 H (3.5-10.8) 10^3/ul RBC 4.58 (4.00-5.40) 10^6/ul Hgb 14.4 (12.0-16.0) g/dl Hct 44 (35-47) % MCV 96 (80-97) fL MCH 32 H (27-31) pg MCHC 33 (31-36) g/dl RDW 14 (10.5-15) % Plt Count 220 (150-450) 10^3/ul MPV 8.3 (7.4-10.4) fL Neut % (Auto) 74.8 % Lymph % (Auto) 17.0 % [place] % (Auto) 6.3 % Eos % (Auto) 1.2 % Baso % (Auto) 0.7 % Absolute Neuts (auto) 10.8 H (1.5-7.7) 10^3/ul Absolute Lymphs (auto) 2.5 (1.0-4.8) 10^3/ul Absolute Monos (auto) 0.9 H (0-0.8) 10^3/ul Absolute Eos (auto) 0.2 (0-0.6) 10^3/ul Absolute Basos (auto) 0.1 (0-0.2) 10^3/ul Absolute Nucleated RBC 0 10^3/ul Nucleated RBC % 0 Sodium 133 L (135-145) mmol/L Potassium 3.8 (3.5-5.0) mmol/L Chloride 105 (101-111) mmol/L Carbon Dioxide 23 (22-32) mmol/L Anion Gap 5 (2-11) mmol/L BUN 7 (6-24) mg/dL Creatinine 0.91 (0.51-0.95) mg/dL Est GFR ( Amer) 84.6 (>60) Est GFR (Non-Af Amer) 69.9 (>60) BUN/Creatinine Ratio 7.7 L (8-20) Glucose 109 H (70-100) mg/dL Lactic Acid 1.6 (0.5-2.0) mmol/L Calcium 9.0 (8.6-10.3) mg/dL Total Bilirubin 0.70 (0.2-1.0) mg/dL AST 55 H (13-39) U/L ALT 23 (7-52) U/L Alkaline Phosphatase 122 H (34-104) U/L C-Reactive Protein 2.58 (<8.01) mg/L Total Protein 7.0 (6.4-8.9) g/dL Albumin 4.0 (3.2-5.2) g/dL Globulin 3.0 (2-4) g/dL Albumin/Globulin Ratio 1.3 (1-3) Lipase 294 H (11.0-82.0) U/L Beta HCG, Quant < 0.60 mIU/mL Urine Color Urine Appearance Urine pH (5-9) Ur Specific [place] (1.010-1.030) Urine Protein (Negative) Urine Ketones (Negative) Urine Blood (Negative) Urine Nitrate (Negative) Urine Bilirubin (Negative) Urine Urobilinogen (Negative) Ur Leukocyte Esterase (Negative) Urine WBC (Auto) (Absent) Urine RBC (Auto) (Absent) Ur Squamous Epith Cells (Absent) Urine Bacteria (Absent) Urine Glucose (Negative) Serum Alcohol < 10 (<10) mg/dL 02/23/19 Range/Units 21:46 WBC (3.5-10.8) 10^3/ul RBC (4.00-5.40) 10^6/ul Hgb (12.0-16.0) g/dl Hct (35-47) % MCV (80-97) fL MCH (27-31) pg MCHC (31-36) g/dl RDW (10.5-15) % Plt Count (150-450) 10^3/ul MPV (7.4-10.4) fL Neut % (Auto) % Lymph % (Auto) % [place] % (Auto) % Eos % (Auto) % Baso % (Auto) % Absolute Neuts (auto) (1.5-7.7) 10^3/ul Absolute Lymphs (auto) (1.0-4.8) 10^3/ul Absolute Monos (auto) (0-0.8) 10^3/ul Absolute Eos (auto) (0-0.6) 10^3/ul Absolute Basos (auto) (0-0.2) 10^3/ul Absolute Nucleated RBC 10^3/ul Nucleated RBC % Sodium (135-145) mmol/L Potassium (3.5-5.0) mmol/L Chloride (101-111) mmol/L Carbon Dioxide (22-32) mmol/L Anion Gap (2-11) mmol/L BUN (6-24) mg/dL Creatinine (0.51-0.95) mg/dL Est GFR ( Amer) (>60) Est GFR (Non-Af Amer) (>60) BUN/Creatinine Ratio (8-20) Glucose (70-100) mg/dL Lactic Acid (0.5-2.0) mmol/L Calcium (8.6-10.3) mg/dL Total Bilirubin (0.2-1.0) mg/dL AST (13-39) U/L ALT (7-52) U/L Alkaline Phosphatase (34-104) U/L C-Reactive Protein (<8.01) mg/L Total Protein (6.4-8.9) g/dL Albumin (3.2-5.2) g/dL Globulin (2-4) g/dL Albumin/Globulin Ratio (1-3) Lipase (11.0-82.0) U/L Beta HCG, Quant mIU/mL Urine Color Anais Urine Appearance Cloudy Urine pH 6.0 (5-9) Ur Specific [place] 1.027 (1.010-1.030) Urine Protein 2+(100 mg/dl) A (Negative) Urine Ketones Negative (Negative) Urine Blood 3+ A (Negative) Urine Nitrate Negative (Negative) Urine Bilirubin Negative (Negative) Urine Urobilinogen Negative (Negative) Ur Leukocyte Esterase Trace A (Negative) Urine WBC (Auto) 2+(11-20/hpf) A (Absent) Urine RBC (Auto) 3+(>10/hpf) A (Absent) Ur Squamous Epith Cells Present A (Absent) Urine Bacteria Absent (Absent) Urine Glucose Negative (Negative) Serum Alcohol (<10) mg/dL Result Diagrams: 08/21/18 21:24 08/21/18 21:24 Lab Statement: Any lab studies that have been ordered have been reviewed, and results considered in the medical decision making process. Abdominal Pain Fem Course/Dx - Course Course Of Treatment: Patient complains of sudden onset upper abdominal pain this morning. History of recurrent pancreatitis. Admits to EtOH last night, which always triggers recurrence. Denies fever, cough, sore throat, CP, SOB, N/ V/D, change in urine, change in BM, vaginal symptoms. Patient has been seen for same once or twice a month over the past 3 months. Medical history is none. Abdominal surgical history is none. Physical exam:Tenderness to palpation all upper quadrants. Abdominal exam otherwise unremarkable. No CVA tenderness bilaterally. Vital signs within normal limits. WBC 14.4. Lipase 294. UA possible UTI however patient is a symptomatic. Labs otherwise unremarkable. Patient may be drug seeking as her presentation of pain is variable. Review of past charts shows patient has been here for similar symptoms once or twice a month for the past 3 months. Review of HCS shows prescription for opiates once or twice a month for the past 3 months[address] patient with Dr. Cohen who recommended pain control here in the ED however to discharge patient without Rx for pain control. Advised patient symptoms are becoming chronic, and that prescriptions for chronic pain medication cannot be written from the ED. Advised patient to follow-up with primary care and pain management. Patient also states she has been drinking more alcohol, no this is a trigger for her pancreatitis. Patient advised to stop drinking alcohol, and seek outpatient counseling for alcohol use. - Diagnoses Provider Diagnoses: Chronic pancreatitis Discharge - Sign-Out/Discharge Documenting (check all that apply): Patient Departure Patient Received Moderate/Deep Sedation with Procedure: No - Discharge Plan Condition: Stable Disposition: HOME Prescriptions: Ondansetron ODT TAB* [Zofran 4 MG Odt TAB*] 4 mg PO Q8H PRN 4 Days #14 tab.odt PRN Reason: Nausea Oxycodone HCl 5 mg PO BID 2 Days #4 tablet MDD 2 tabs Patient Education Materials: Pancreatitis (ED) Referrals: Malina Blount NP [Primary Care Provider] - Additional Instructions: Stop drinking alcohol. Follow-up with primary care for pain management for chronic pancreatitis symptoms. Return to the ED for any new or worsening symptoms. - Billing Disposition and Condition Condition: STABLE Disposition: Home
[2018-08-22] MEDS ORDERED: HYDROcodone/ACETAMIN 5-325 MG* 1 TAB PO ONE (00:34)
[2018-08-22] MEDS ORDERED: oxyCODONE TAB* 5 MG TAB PO ONE (01:08)
[2018-08-22 01:32] VITALS: BP 142/91
== END 2018-08-22 01:30 | disposition home or self-care (01) ==
LOC: ED 20:49
DX: K86.1 Other chronic pancreatitis (principal); R10.9 Unspecified abdominal pain; F17.210 Nicotine dependence, cigarettes, uncomplicated; K21.9 Gastro-esophageal reflux disease without esophagitis; Z87.442 Personal history of urinary calculi
CPT/HCPCS: 36415; 80053; 80320; 81003; 81015; 83605; 83690; 84702; 85025; 86140; 87086; 96361; 96374; 96375; 99282; A9270-GY; G0480; J1170; J2405

== ENCOUNTER 2018-09-24 17:09 | Inpatient (IN) | payer OTHER ==
--- OUTSIDE RECORDS SUMMARY | 2018-09-24 17:36 | XMS REPORT | Continuity of Care Document ---
:1980 External Reference #:[id number] Author Name Yves Meme Care Team Providers Name Role Phone Patient's Choice Primary Care Physician Unavailable Payers Date Identification Numbers Payment Provider Subscriber Policy Number: [id number] [employer] Medicaid Abby Carlton PayID: [id number] [address] [place] [id number] Advance Directives Type Date Description Status Comment Other Directive 01/27/2017 Health Care Proxy Current and Verified Problems Date Description Provider Status Onset: 12/13/2016 Alcohol-induced acute pancreatitis Malina Blount N.Lior Active Onset: 12/13/2016 Mild intermittent asthma Malina Blount N.P. Active Onset: 09/28/2017 Closed fracture of metatarsal bone Casey Yu MD Active Onset: 09/28/2017 Closed traumatic dislocation of Casey Yu MD Active tarsometatarsal joint Onset: 01/19/2018 Tobacco use Samuel Finley M.D. Active Onset: 03/29/2018 Alcohol-induced psychosis Chasidy Ivy M.D. Active Onset: 03/29/2018 Anxiety state Chasidy Iyv M.D. Active Family History Date Family Member(s) [...] Use Currently consumes Drinks when watching alcohol YEOXIN VMallAR races once weekly. Recreational Drug Use Denies Drug Use Tobacco Use Start: Unknown Light tobacco smoker (10 or fewer cigarettes/day) Smoking Status Reviewed: 09/21/18 Light tobacco smoker (10 or fewer cigarettes/day) Allergies, Adverse Reactions, Alerts Date Description Reaction Status Severity Comments 05/05/2013 Codeine Active 06/03/2017 Metaxalone Active feels "loopy" 06/03/2017 Zithromax Active violently ill 07/29/2017 Azithromycin Active 11/05/2017 Keflex Active Severe Can't breath 11/05/2017 Qvar Active 02/18/2018 Lorazepam Nausea and Vomiting, Increased Active confusion 08/27/2018 Tylenol Active Medications Medication Date Status Form Strength Qnty SIG Indications Ordering Provider Albuterol Sulfate 09/21 Active Aerosol 108(90Bas 54uni inhale 2 J45.20 e) ts puffs by Varn, N.P. mcg/Act mouth four times a day as needed Nystatin 09/21 Active Suspension [id number] 120ml 08/25/18 B37.0 t/ML report Varn, N.P. not taking. 4 millilite rs four times a day, swish and swallow for 10 days Seroquel 08/06 Active Tablets 50mg 30tab One po F33.9 s daily Varn, N.P. Oxycodone HCL 08/06 Active Tablets 10mg 15tab 1 by s mouth Varn, N.P. every 8 hours as needed pain(only 15 given) Gabapentin 06/01 Active Capsules 300mg 60cap 1 by K85.20 s mouth in Varn, N.P. in the morning, 1 by mouth mid day Ranitidine HCL 06/01 Active Tablets 150mg 60tab take one K21.9 s tablet by Varn, N.P. mouth twice a day Oxycodone HCL 06/01 Active Tablets 5mg 6tabs one by K85.20 mouth Pennie, CORE FITTER twice a day Gabapentin 03/12 Active Tablets 600mg 120ta 1 tablet bs by mouth Varn, N.P. in in the morning, 1 tablet by mouth mid day, 2 tablets at bedtime Walker Swivel 05/10 Active Misc 3" 1unit use this S93.324D Malina Wheels/ s to Varn, N.P. Adjustment ambulate /3" With Seat Hydroxyzine 01/27 Active Capsules 25mg 30cap Take 1 F41.1 Pam s Capsule Varn, N.P. By Mouth Every 8 Hours as Needed For Anxiety Ondansetron 12/24 Active Tablets 4mg 20tab 1 tablet R11.2 Dispers s under Varn, N.P. tongue every 8 hours as needed nausea Nicotine Active Patches 21mg/24HR Apply 1 24HR Patch Transderm ally Every Day AT 800Am Melatonin ER Active Tablets ER 3mg 30tab 1 tab by s mouth at Varn, N.P. bedtime Omeprazole Active Capsules DR 40mg 30cap 1 by s mouth Varn, N.P. every day Baclofen Active Tablets 10mg 45tab take / s tablet by Varn, N.P. mouth every 8 hours as needed for muscle spasm Macrobid 08/27 Hx Capsules 100mg 14cap one N39.0 Hernandez s capsule Pennie, CORE FITTER - twice a 09/03 day x days Macrobid 11/08 Hx Capsules 100mg 14cap 1 by s mouth Varn, N.P. - twice a 11/15 day for days Sulfamethoxazole/ 11/05 Hx Tablets 800-160mg 14tab one by N39.0 Trimethoprim s mouth Varn, N.P. - twice a 11/08 day for days Meloxicam 11/05 Hx Tablets 7.5mg 60tab 1 by S93.324D s mouth bid Varn, N.P. - prn pain 01/24 Gabapentin 09/10 Hx Tablets 600mg 90tab take 1 F33.9 s three Varn, N.P. - times a /2017 Qvar 08/21 Hx Aerosol 80mcg/Act 26.1u 2 puffs nits twice Varn, N.P. - daily 11/05 Asmanex HFA 08/18 Hx Aerosol 200mcg/Ac 13gm 1 t inhalatio Varn, N.P. - n bid 08/21 Baclofen 06/25 Hx Tablets 10mg 45tab Take 1/2 M54.9 s Tablet By Varn, N.P. - Mouth 01/25 Every Hours as Needed For Muscle Spasm Omeprazole 06/[address] 20mg 30cap 1 by s mouth Cotton, - every day M.D. 01/25 Doxycycline 06/14 Hx Capsules 100mg one Unknown Hycl tablet - twice 06/25 daily 10 days ([facility]) Pulmicort 03/11 Hx Aerosol 180mcg/Ac 1unit 2 puffs t s twice Varn, N.P. - daily 08/18 Metaxalone 02/27 Hx Tablets 800mg 30tab take 1 M54.5 s tablet 3 Varn, N.P. - times a 06/02 day needed Oxycodone HCL 02/27 Hx Tablets 5mg 20tab one by M54.5 s mouth Varn, N.P. - every 8 06/02 hours needed pain Medrol 02/27 Hx TBPK 4mg 21uni 6 by J45.901 ts mouth day Varn, N.P. - 1, 5 by 03/05 mouth day 2, 4 by mouth day 3, 3 by mouth day 4, 2 by mouth day 5, 1 by mouth day 6 Flovent HFA 02/27 Hx Aerosol 110mcg/Ac 12gm 2 puffs J45.901 t twice Varn, N.P. - daily 03/11 Omeprazole 01/[address] 40mg 30cap 1 by R11.2 s mouth Varn, N.P. - every day 02/27 Flector 12/24 Hx Patches 1.3% 60uni apply 1 M54.5 ts patch Varn, N.P. - twice a Gabapentin 12/24 Hx Capsules 300mg 270ca take 3 M54.5 ps capsules Varn, N.P. - by mouth 01/15 times a day Creon 12/12 Hx Caps 6000Unit 90cap One po Part s with each Varn, N.P. - meal tid 01/27 Omeprazole 12/[address] 20mg 30tab 1 by R11.2 s mouth Varn, N.P. - every day 01/27 Oxycodone HCL 12/10 Hx Tablets 5mg 15tab one by K85.90 s mouth Varn, N.P. - every 8 02/27 hours needed pain Oxycodone HCL Hx Tablets 10mg 1 po q 4 Unknown /0000 hrs prn - pain MDD 03/29 6 tab ([facility] [place] Omeprazole Hx Capsules DR 40mg 1 by Unknown /0000 mouth - every day 06/24 ([facility] /2017 summary) Ibu-200 Hx Tablets 200mg 2 tab as Unknown /0000 needed. - 01/25 Oxycodone HCL Hx Tablets 5mg 30tab 1 tab po Casey /0000 s q4-6 Aimee, - hours prn 01/26 Cyclobenzaprine Hx Tablets 5mg 30tab take one Malina HCL /0000 s tablet by Varn, N.P. - mouth 04/05 every hours prn. may take a second tablet if first not effetive. Aspirin Ec [address] 325mg take 1 Unknown /0000 tab by - mouth 12/19 every x 14 days. with food. Methadone HCL Hx Tablets 10mg Take 1 Unknown /0000 Tablet By - Mouth 01/18 Times Daily Maximum Daily Dose Of 3 Per D Sucralfate 00 Hx Tablets 1gm Take 1 Unknown /0000 Tablet By - Mouth Two 03/12 Daily Chlordiazepoxide Hx Capsules 25mg Take 1 Unknown HCL /0000 Capsule - By Mouth 04/05 Times Daily Maximum Daily Dose Of 3 Caps Gabapentin Hx Capsules 300mg 1 by Unknown /0000 mouth - three 03/12 times day Folic Acid Hx Tablets 1mg 1 by Unknown /0000 mouth - every day 03/12 Benzocaine/Mentho Hx Unknown l Juan /0000 - 03/12 Nicotine Tartrate Hx Powder 10mg Unknown /0000 inhaled - every 2 03/12 hours needed for cravings Thiamine HCL Hx Tablets 100mg 1 by Unknown /0000 mouth - every day 03/12 Oxycodone HCL Hx Tablets 5mg 20tab 1 tab po Slava /0000 s q4-6 Pietro, - hours sun Mims 05/31 pain Seroquel Hx Tablets 25mg 30tab Take 1 R11.2 Malina /0000 s Tablet By Varanh, N.P. - Mouth AT 08/06 Bedtime Oxycodone Hx Tablets 10mg 1 by Unknown /0000 mouth - every 6 /08 hours needed pain(only 15 given) Sodium Hx Tablets 650mg 1 tab by Unknown Bicarbonate /0000 mouth 4 - times a Medications Administered in Office Medication Date Status Form Strength Qnty SIG Indications Ordering Provider Ozzy Administered Injection Slava 40MG 018 Felicita Westbrook Immunizations CPT Code Status Date Vaccine Reaction Lot # [id number] Given 03/12/2018 Influenza Virus Vaccine, No immediate [id number] Quadrivalent, Split, reaction..jh Preservative Free 64727 Given 03/27/2014 Tdap - Tetanus/Diptheria/Acellular Pertussis 70476 Given 06/26/2011 Influenza Virus Vaccine, Quadrivalent, Split, Preservative Free 57296 Given 07/31/2009 Influenza Virus Vaccine, Quadrivalent, Split, Preservative Free 65209 Given 07/31/2009 Influenza Virus Vaccine, Quadrivalent, Split, Preservative Free 71345 Given 07/31/2009 Influenza Virus Vaccine, Quadrivalent, Split, Preservative Free 40319 Given 07/31/2009 Influenza Virus Vaccine, Quadrivalent, Split, Preservative Free 21458 Given 07/31/2009 Influenza Virus Vaccine, Quadrivalent, Split, Preservative Free 36016 Given 07/31/2009 Influenza Virus Vaccine, Quadrivalent, Split, Preservative Free 78855 Given 06/25/2007 Influenza Virus Vaccine, Quadrivalent, Split, Preservative Free 09272 Given 06/25/2007 Influenza Virus Vaccine, Quadrivalent, Split, Preservative Free 84749 Given 06/25/2007 Influenza Virus Vaccine, Quadrivalent, Split, Preservative Free 45288 Given 06/25/2007 Influenza Virus 3Yrs & Over 35878 Given 07/08/2004 Tetanus And Diptheria (Td) For Adult Use Preservative Free 55397 Given 07/08/2004 Measles Mumps And Rubella MMR Vital Signs Date Vital Result Comment 09/21/2018 2:20pm Height 60 inches 5'0" Weight 116.00 lb Heart Rate 90 /min BP Systolic 123 mmHg BP Diastolic 80 mmHg Body Temperature 96.9 F O2 % BldC Oximetry 99 % BMI (Body Mass Index) 22.7 kg/m2 08/27/2018 8:47am Height 61 inches 5'1" Weight 120.50 lb Heart Rate 103 /min BP Systolic 126 mmHg BP Diastolic 84 mmHg Body Temperature 97.1 F O2 % BldC Oximetry 98 % BMI (Body Mass Index) 22.8 kg/m2 08/06/2018 3:24pm Height 61 inches 5'1" Weight [...] Date Facility Test Result H/L Range Note Urine Culture And 08/27/2018 [facility] Urine Culture SEE RESULT [address] [place] [address] [phone] Ua Routine 08/27/2018 [employer] Ua Specific 1.030 [place] Ua PH 5 Ua Color red Ua Appera cloudy Ua WBC positive Ua Protein ++ Ua Glucose normal Ua Ketones negative Ua Bilirubin +++ Ua Urobilinogen negative Ua Nitrite positive Ua Occult Blood 250 Urine Culture And 08/21/2018 [facility] Urine SEE RESULT [address] [place] [address] [phone] Laboratory test 08/21/2018 [facility] Lipase 294 U/L High 11.0 - finding [address] 82[address] [place] [address] [phone] C Reactive Protein 2.58 mg/L N <8.01 HCG < 0.60 mIU/mL 3 Alcohol < 10 mg/dL N <10 CBC Auto 08/21/2018 [facility] White Blood 14.4 10^3/uL High 3.5-10.[address] [place] [address] [phone] Red Blood Count 4.58 10^6/uL N 4.00-5.40 Hemoglobin 14.4 g/dL N 12.0-16.0 Hematocrit 44 % N 35-47 Mean Corpuscular Volume 96 fL N 80-97 Mean Corpuscular Hemoglobin 32 pg High 27-31 Mean Corpuscular HGB Conc 33 g/dL N 31-36 Red Cell Distribution Width 14 % N 10.5-15 Platelet Count 220 10^3/uL N 150-450 Mean Platelet Volume 8.3 fL N 7.4-10.4 Abs Neutrophils 10.8 10^3/uL High 1.5-7.7 Abs Lymphocytes 2.5 10^3/uL N 1.0-4.8 Abs Monocytes 0.9 10^3/uL High 0-0.8 Abs Eosinophils 0.2 10^3/uL N 0-0.6 Abs Basophils 0.1 10^3/uL N 0-0.2 Abs Nucleated RBC 0 10^3/uL Granulocyte % 74.8 % Lymphocyte % 17.0 % Monocyte % 6.3 % Eosinophil % 1.2 % Basophil % 0.7 % Nucleated Red Blood Cells % 0 Laboratory test 08/21/2018 [facility] Lactic Acid 1.6 mmol/L N 0.5-2.0 4 finding [address] [place] [address] [phone] Comp Metabolic 08/21/2018 [facility] Sodium 133 mmol/L Low 135 -145 Panel [address] [place] [address] [phone] Potassium 3.8 mmol/L N 3.5-5.0 Chloride 105 mmol/L N 101-111 Co2 Carbon Dioxide 23 mmol/L N 22-32 Anion Gap 5 mmol/L N 2-11 Glucose 109 mg/dL High 70-100 Blood Urea Nitrogen 7 mg/dL N 6-24 Creatinine 0.91 mg/dL N 0.51-0.95 BUN/Creatinine Ratio 7.7 Low 8-20 Calcium 9.0 mg/dL N 8.6-10.3 Total Protein 7.0 g/dL N 6.4-8.9 Albumin 4.0 g/dL N 3.2-5.2 Globulin 3.0 g/dL N 2-4 Albumin/Globulin Ratio 1.3 N 1-3 Total Bilirubin 0.70 mg/dL N 0.2-1.0 Alkaline Phosphatase 122 U/L High 34-104 Alt 23 U/L N 7-52 Ast 55 U/L High 13-39 Egfr Non- 69.9 >60 Egfr 84.6 >60 5 Urinalysis Profile 08/21/2018 [facility] Urine Color Anais [address] [place] [address] [phone] Urine Appearance Cloudy Urine Specific [place] 1.027 N 1.010-1.030 Urine pH 6.0 N 5-9 Urine Urobilinogen Negative Negative Urine Ketones Negative Negative Urine Protein 2+(100 mg/dL) Abnormal Negative Urine Leukocytes Trace Abnormal Negative Urine Blood 3+ Abnormal Negative Urine Nitrite Negative Negative Urine Bilirubin Negative Negative Urine Glucose Negative Negative Urine White Blood Cell 2+(11-20/hpf) Abnormal Absent Urine Red Blood Cell 3+(>10/hpf) Abnormal Absent Urine Bacteria Absent Absent Urine Squamous Epithelial Cell Present Abnormal Absent Comp Metabolic Panel 08/06/2018 [facility] Sodium 144 mmol/L N 135-145 [address] [place] [address] [phone] Potassium 4.1 mmol/L N 3.5-5.0 Chloride 107 [...] Egfr Non- 87.4 >60 Egfr 105.8 >60 6 Laboratory test 08/06/2018 [facility] Magnesium 1.9 mg/dL N 1.9-2.7 finding [address] [place] [address] [phone] Urine Culture And 07/27/2018 [facility] Urine Culture SEE RESULT [address] [place] [address] [phone] Laboratory test 07/27/2018 [facility] Amylase 195 U/L High 29- 103 finding [address] [place] [address] [phone] C Reactive Protein 16.08 mg/L High <8.01 HCG 0.80 mIU/mL 8 Lipase 1256 U/L High 11.0-82.0 Triglyceride 171 mg/dL 9 Laboratory test finding 07/27/2018 [facility] Alcohol < 10 mg/ dL N <[address] [place] [address] [phone] LDH 189 U/L N 140-271 Urinalysis Profile 07/27/2018 [facility] Urine Color Yellow [address] [place] [address] [phone] Urine Appearance Cloudy Urine Specific [place] 1.021 N 1.010-1.030 Urine pH 6.0 N [...] Urine Squamous Epithelial Cell Present Abnormal Absent Comp Metabolic Panel 07/27/2018 [facility] Sodium 131 mmol/L Low 135-[address] [place] [address] [phone] Potassium 4.1 mmol/L N 3.5-5.0 Chloride 101 [...] Egfr Non- 77.8 >60 Egfr 94.1 >60 10 Co2 Carbon Dioxide 12 mmol/L Low 22-32 11 Anion Gap 18 mmol/L High 2-11 CBC Auto 07/27/2018 [facility] White Blood 17.8 10^3/uL High 3.5-10.[address] [place] [address] [phone] Red Blood Count 4.90 10^6/uL N 4.00-5.40 [...] % Nucleated Red Blood Cells % 0 Laboratory test 07/27/2018 [facility] Lactic Acid 1.0 mmol/L N 0.5-2.[address] [place] [address] [phone] Laboratory test 05/28/2018 [facility] Potassium 3.7 mmol/L N 3.5-5.[address] [place] [address] [phone] Magnesium 1.7 mg/dL Low 1.9-2.7 Ast Redraw 211 U/L High 13-39 Urine Culture And 05/28/2018 [facility] Urine Culture SEE RESULT [address] [place] [address] [phone] Urinalysis Profile 05/28/2018 [facility] Urine Color Yellow [address] [place] [address] [phone] Urine Appearance Clear Urine Specific [place] 1.024 N 1.010-1.030 Urine pH 6.0 N [...] Urine Squamous Epithelial Cell Present Abnormal Absent Lipid Profile 05/28/2018 [facility] Triglycerides 41 mg/dL 14 (Trig/Chol/HDL) [address] [place] [address] [phone] Cholesterol 79 mg/dL 15 HDL Cholesterol 46.5 mg/dL 16 LDL Cholesterol 24 mg/dL 17 CBC Auto 05/28/2018 [facility] White Blood 15.6 10^3/uL High 3.5-10.[address] [place] [address] [phone] Red Blood Count 4.49 10^6/uL N 4.00-5.40 [...] % Nucleated Red Blood Cells % 0 Laboratory test 05/28/2018 [facility] Lipase 393 U/L High 11.0 -82.[address] [place] [address] [phone] C Reactive Protein 142.58 mg/L High <8.01 HCG < 0.60 mIU/mL 18 Magnesium TNP mg/dL 1.9-2.7 19 Comp Metabolic Panel 05/28/2018 [facility] Sodium 133 mmol/L Low 135-[address] [place] [address] [phone] Chloride 102 mmol/L N 101-111 Co2 Carbon [...] Egfr Non- 105.0 >60 Egfr 127.0 >60 20 Potassium TNP mmol/L 3.5-5.0 21 Anion Gap 9 mmol/L N 2-11 Ast TNP U/L 13-39 22 Laboratory test 05/28/2018 [facility] Lactic Acid 0.6 mmol/L N 0.5-2.0 [address] [place] [address] [phone] Urine Culture And 05/26/2018 [facility] Urine SEE RESULT [address] [place] [address] [phone] Urinalysis Profile 05/26/2018 [facility] Urine Color Yellow [address] [place] [address] [phone] Urine Appearance Cloudy Urine Specific [place] 1.013 N 1.010-1.030 Urine pH 7.0 N [...] Epithelial Cell Present Abnormal Absent Laboratory test 04/12/2018 [facility] Surgical SEE RESULT [address] [place] [address] [phone] Laboratory test 03/28/2018 [facility] Potassium 3.8 mmol/L N 3.5-5. finding [address] Redraw [address] [place] [address] [phone] Ast Redraw 39 U/L N 13-39 CBC Auto 03/28/2018 [facility] White Blood 11.6 10^3/uL High 3.5-10.[address] [place] [address] [phone] Red Blood Count 4.75 10^6/uL N 4.00-5.40 [...] Blood Cells % 0.1 Laboratory test 03/28/2018 [facility] Lactic Acid 1.0 mmol/L N 0.5-2.0 26 finding [address] [place] [address] [phone] Comp Metabolic 03/28/2018 [facility] Sodium 135 mmol/L N 135- 145 Panel [address] [place] [address] [phone] Chloride 100 mmol/L Low 101-111 Co2 Carbon [...] Egfr Non- 81.2 >60 Egfr 98.2 >60 27 Potassium TNP mmol/L 3.5-5.0 28 Anion Gap 12 mmol/L High 2-11 Ast TNP U/L 13-39 29 Laboratory test 03/28/2018 [facility] HCG < 0.60 mIU/ mL [address] [place] [address] [phone] Troponin-I (TnI) 0.14 ng/mL High <0.04 31 Lipase 1276 U/L High 11.0-82.0 Inr/Protime 03/28/2018 [facility] Inr 0.92 N 0.77-1.[address] [place] [address] [phone] Laboratory test 03/28/2018 [facility] Partial 27.5 seconds N 26.0-36.[address] [place] [address] [phone] Urinalysis 03/28/2018 [facility] Urine Color Yellow Profile [address] [place] [address] [phone] Urine Appearance Clear Urine Specific [place] 1.039 High 1.010-1.030 Urine pH 7.0 N [...] Cell Present Abnormal Absent Laboratory test 03/28/2018 [facility] Alcohol < 10 mg/dL N < [address] [place] [address] [phone] Urine Culture And 03/28/2018 [facility] Urine Culture SEE RESULT [address] [place] [address] [phone] Urinalysis Profile 01/14/2018 [facility] Urine Color Yellow [address] [place] [address] [phone] Urine Appearance Cloudy Urine Specific [place] 1.018 N 1.010-1.030 Urine pH 6.0 N [...] Epithelial Present Abnormal Absent CBC Auto 01/14/2018 [facility] White Blood 11.0 10^3/uL High 3.5-10.[address] [place] [address] [phone] Red Blood Count 4.72 10^6/uL N 4.00-5.40 [...] Cells % 0 Comp Metabolic Panel 01/14/2018 [facility] Sodium 134 mmol/L Low 135-[address] [place] [address] [phone] Potassium 3.8 mmol/L N 3.5-5.0 Chloride 100 [...] Egfr Non- 75.7 >60 Egfr 91.6 >60 33 Laboratory test 01/14/2018 [facility] HCG < 0.60 mIU/ mL [address] [place] [address] [phone] Lipase 3111 U/L High 11.0-82.0 Alcohol < 10 mg/dL N <10 Urine Culture And 01/14/2018 [facility] Urine Culture SEE RESULT [address] [place] [address] [phone] Ua Routine 11/05/2017 [employer] Ua Specific 1010 [place] Ua PH 6 Ua Color brown Ua Appera cloudy Ua WBC ++ Ua Protein + Ua Glucose ++ Ua Ketones neg. Ua Bilirubin neg. Ua Urobilinogen neg. Ua Nitrite neg. Ua Occult Blood about 250 Urine Culture And 11/05/2017 [facility] Urine Culture SEE RESULT [address] [place] [address] [phone] Urinalysis Profile 09/04/2017 [facility] Urine Color Yellow [address] [place] [address] [phone] Urine Appearance Cloudy Urine Specific [place] 1.021 N 1.010-1.030 Urine pH 6.0 N [...] Present Abnormal Absent Urine Culture And 09/04/2017 [facility] Urine Culture SEE RESULT [address] [place] [address] [phone] CBC Auto Diff 09/04/2017 [facility] White Blood 9.4 10^3/uL N 3.5-[address] Count 0.8 [place] [address] [phone] Red Blood Count 4.35 10^6/uL N 4.0-5.4 [...] Cells % 0 Comp Metabolic Panel 09/04/2017 [facility] Sodium 136 mmol/L N 133-[address] [place] [address] [phone] Potassium 3.8 mmol/L N 3.5-5.0 Chloride 105 [...] Egfr Non- 90.2 >60 Egfr 116.0 >60 38 Laboratory test 09/04/2017 [facility] Magnesium 2.1 mg/dL N 1.9-2.[address] [place] [address] [phone] Amylase 41 U/L N 29-103 Lipase 34 U/L N 11.0-82.0 CRP High Sensitivity 2.35 mg/L 39 Alcohol 54 mg/dL High <10 HCG < 0.60 mIU/mL 40 Troponin-I (TnI) 0.00 ng/mL <0.04 Laboratory test 06/24/2017 [facility] Lactic Acid 1.2 mmol/L N 0.5-2.0 [address] [place] [address] [phone] CBC Auto Diff 06/24/2017 [facility] White Blood 8.9 10^3/uL N 3.5-10.[address] [place] [address] [phone] Red Blood Count 4.72 10^6/uL N 4.0-5.4 [...] Cells % 0.2 Comp Metabolic Panel 06/24/2017 [facility] Sodium 133 mmol/L N 133-145 [address] [place] [address] [phone] Potassium 3.6 mmol/L N 3.5-5.0 Chloride 100 [...] Egfr Non- 68.6 >60 Egfr 88.2 >60 42 Laboratory test 06/24/2017 [facility] Magnesium 2.1 mg/dL N 1.9-2.7 finding [address] [place] [address] [phone] Lipase 541 U/L High 11.0-82.0 Creatine Kinase(CK) 25 U/L N 10-223 C Reactive Protein 1.94 mg/L N < 5.00 43 HCG < 0.60 mIU/mL 44 Lipid Profile 06/24/2017 [facility] Triglycerides 98 mg/dL 45 (Trig/Chol/HDL) [address] [place] [address] [phone] Cholesterol 166 mg/dL 46 HDL Cholesterol 49.4 mg/dL 47 LDL Cholesterol 97 mg/dL 48 Laboratory test 06/24/2017 [facility] Alcohol < 10 mg/dL N < [address] [place] [address] [phone] Urinalysis Profile 06/24/2017 [facility] Urine Color Straw [address] [place] [address] [phone] Urine Appearance Cloudy Urine Specific [place] 1.002 Low 1.010-1.030 Urine pH 6.0 N 5-9 Urine Urobilinogen Negative Negative Urine Ketones Negative Negative Urine Protein Negative Negative Urine Leukocytes Negative Negative Urine Blood Negative Negative Urine Nitrite Negative Negative Urine Bilirubin Negative Negative Urine Glucose Negative Negative Laboratory test 06/12/2017 [facility] D Dimer 262 ng/mL High Less [address] Quantitative Than [address] [place] [address] [phone] Amylase 50 U/L N 29-103 Lipase < 10 U/L Low 11.0-82.0 C Reactive Protein 222.45 mg/L High < 5.00 50 Troponin-I (TnI) 0.03 ng/mL <0.04 Strep AB Anti 06/12/2017 [facility] Anti Streptolysin 121 IU/mL 0 - 530 Dnase B [address] [facility] [place] [address] [phone] Anti-DNase B <74 U/mL 0 - 300 51 Arterial Blood Gas 06/12/2017 [facility] Fio2 2 [address] [place] [address] [phone] PH Arterial 7.35 N 7.35-7.45 Pco2 Arterial 33 mmHg Low 35-45 Po2 Arterial 78 mmHg Low 80-100 O2 Saturation Arterial 97.2 % N 95-98 Base Excess Arterial -6.4 Low -2.0-2.0 52 Hco3 Arterial 19.8 mmol/L N 19-31 CBC Auto 06/12/2017 [facility] White Blood 14.7 10^3/uL High 3.5-10.[address] [place] [address] [phone] Red Blood Count 4.61 10^6/uL N 4.0-5.4 [...] Cells % 0 Comp Metabolic Panel 06/12/2017 [facility] Sodium 137 mmol/L N 133-[address] [place] [address] [phone] Potassium 4.2 mmol/L N 3.5-5.0 Chloride 108 [...] Egfr Non- 74.1 >60 Egfr 95.3 >60 53 Urine Culture And 06/08/2017 [facility] Urine Culture SEE RESULT [address] [place] [address] [phone] Comp Metabolic 06/08/2017 [facility] Sodium 134 mmol/L N 133- [address] [place] [address] [phone] Potassium 3.5 mmol/L N 3.5-5.0 Chloride 103 [...] Egfr Non- 84.0 >60 Egfr 108.1 >60 55 Urinalysis Profile 06/08/2017 [facility] Urine Color Red Abnormal [address] [place] [address] [phone] Urine Appearance Cloudy Urine pH TNP 5-9 56 Urine Urobilinogen TNP Negative 57 Urine Ketones TNP Negative 58 Urine Protein TNP Negative 59 Urine Leukocytes TNP Negative 60 Urine Blood TNP Negative 61 Urine Nitrite TNP Negative 62 Urine Bilirubin TNP Negative 63 Urine Glucose TNP Negative 64 Urine Specific [place] 1.005 Low 1.010-1.030 Urine White Blood Cell 3+(>20/hpf) Abnormal Absent Urine Red Blood Cell 3+(>10/hpf) Abnormal Absent Urine Bacteria 1+ Abnormal Absent Urine Squamous Epithelial Cell Present Abnormal Absent CBC Auto Diff 06/08/2017 [facility] White Blood 7.7 10^3/uL N 3.5-10.[address] [place] [address] [phone] Red Blood Count 4.69 10^6/uL N 4.0-5.4 [...] Cells % 0.1 Laboratory test finding 06/08/2017 [facility] Lipase 18 U/L N 11.0-82.0 [address] [place] [address] [phone] CRP High Sensitivity 3.72 mg/L 65 HCG < 0.60 mIU/mL 66 Comp Metabolic Panel 04/14/2017 [facility] Sodium 136 mmol/L N 133-145 [address] [place] [address] [phone] Potassium 3.9 mmol/L N 3.5-5.0 Chloride 102 [...] 76.1 N >60 Egfr 97.9 N >60 67 Laboratory test finding 04/14/2017 [facility] Amylase 40 U/L N 29-[address] [place] [address] [phone] Lipase 40 U/L N 11.0-82.0 Drug Abuse 20 04/13/2017 [facility] Urine Amphetamine Negative ng/mL N [address] [place] [address] [phone] Urine Barbiturates Negative ng/mL N 69 Urine Benzodiazepines Negative ng/mL N 70 Urine Cocaine Negative ng/mL N 71 Urine Phencyclidine Negative ng/mL N Cutoff: 25 Urine Tetrahydrocannabinol Negative ng/mL N Cutoff: 50 72 Creatinine, Urine 122.2 mg/dL N Specific [place] 1.004 N pH 7.4 N Oxidants Negative N 73 Adulterants Comment Normal N Codeine, Ur Not Detected ng/mL N Cutoff: 25 74 Vkarvnt-7-tgab-glucuronide, Ur Not Detected ng/mL N 75 Morphine, Ur Not Detected ng/mL N Cutoff: 25 76 Xropczal-8-rwkr-glucuronide, U Not Detected ng/mL N 77 6-monoacetylmorphine, Ur Not Detected ng/mL N Cutoff: 25 78 Hydrocodone, Ur Not Detected ng/mL N Cutoff: 25 79 Norhydrocodone, Ur Not Detected ng/mL N Cutoff: 25 80 Dihydrocodeine, Ur Not Detected ng/mL N Cutoff: 25 81 Hydromorphone, Ur Not Detected ng/mL N Cutoff: 25 82 Oftrjaigvpwro6vazctrbzcxzkfzv Not Detected ng/mL N 83 Oxycodone, Ur Present ng/mL N Cutoff: 25 84 Noroxycodone, Ur Present ng/mL N Cutoff: 25 85 Oxymorphone, Ur Not Detected ng/mL N Cutoff: 25 86 Fxoyzipgloj-0-skjj-glucuronide Present ng/mL N 87 Noroxymorphone, Ur Present ng/mL N Cutoff: 25 88 Fentanyl, Ur Not Detected ng/mL N Cutoff: 2 89 Norfentanyl, Ur Not Detected ng/mL N Cutoff: 2 90 Meperidine, Ur Not Detected ng/mL N Cutoff: 25 91 Normeperidine, Ur Not Detected ng/mL N Cutoff: 25 92 Naloxone, Ur Not Detected ng/mL N Cutoff: 25 93 Nrwxomih-8-dkkr-glucuronide, U Not Detected ng/mL N 94 Methadone, Ur Not Detected ng/mL N Cutoff: 25 95 Eddp, Ur Not Detected ng/mL N Cutoff: 25 96 Propoxyphene, Ur Not Detected ng/mL N Cutoff: 25 97 Norpropoxyphene, Ur Not Detected ng/mL N Cutoff: 25 98 Tramadol, Ur Not Detected ng/mL N Cutoff: 25 99 O-desmethyltramadol, Ur Not Detected ng/mL N Cutoff: 25 100 Tapentadol, Ur Not Detected ng/mL N Cutoff: 25 101 N-desmethyltapentadol, Ur Not Detected ng/mL N Cutoff: 50 102 Ppopgfnzdx-xxsc-nwezlnktjvv, U Not Detected ng/mL N 103 Buprenorphine, Ur Not Detected ng/mL N Cutoff: 5 104 Norbuprenorphine, Ur Not Detected ng/mL N Cutoff: 5 105 Norbuprenorphine glucuronide Not Detected ng/mL N Cutoff: 20 106 Opioid Interpretation See Comment N 107 Laboratory test 04/10/2017 [facility] TSH (Thyroid 0.66 mcIU/mL N 0.34-5.[address] Stim [place]) [place] [address] [phone] Vitamin B12 197 pg/mL N 180-914 108 Glucose 101 mg/dL High 70-100 CBC Auto 12/15/2016 [facility] White Blood 13.8 10^3/uL High 3.5-10.[address] [place], [place] [phone] Red Blood Count 4.69 10^6/uL N 4.0-5.4 [...] % 0 N Comp Metabolic Panel 12/15/2016 [facility] Sodium 137 mmol/L N 133-[address] [place] [address] [phone] Potassium 3.6 mmol/L N 3.5-5.0 Chloride 104 [...] 98.5 N >60 Egfr 126.6 N >60 109 Laboratory test finding 12/15/2016 [facility] Lipase 32 U/L N 11.0-82.[address] [place] [address] [phone] Amylase 37 U/L N 09-514 1 SEE RESULT BELOW Name: ABBY CARLTON : [address]: Hernandez Caspre NP Acct: [id number] Unit: [id number] AGE: 38 Location: [facility] Re08/27/18 SEX: F Status: REG REF SPEC: [id number] EH: 08/27/[address]: Hernandez Casper NP REQ: [id number] RECD: 08/27/18 STATUS: COMP _ SOURCE: URINE SPDESC: ORDERED: Urine Culture COMMENTS: [id number] Urine Source: Random Procedure Result Reported Site Urine Culture Final 08/28/18- 1224 ML No growth of clinically significant organisms * ML - Main Lab . END OF REPORT DEPARTMENT OF PATHOLOGY, [address] [place] [address] Francisco Marques M.D. Director [facility] # [id number] 2 SEE RESULT BELOW Name: ABBY CARLTON : [address]: Arley Mason MD Acct: [id number] Unit: [id number] AGE: 38 Location: ED Re08/21/18 SEX: F Status: DEP ER SPEC: [id number] EH: 08/21/18-[address]: Arley Mason MD REQ: [id number] RECD: 08/21/18 STATUS: LOIDA MCKNIGHT DR: Malina Blount CORE FITTER _ SOURCE: URINE [facility]: ORDERED: Urine Culture Procedure Result Reported Site Urine Culture Final 08/23/18- 1025 ML Mixed iban; possible contamination. Suggest resubmission. * ML - Main Lab . END OF REPORT DEPARTMENT OF PATHOLOGY, [address] [place] [address] Francisco Marques M.D. Director [facility] # [id number] 3 <5.0 Negative 5.0 - 25.0 Indeterminate (Repeat testing recommended after 72 hours) >25.0 Positive Perimenopausal women can display HCG levels of up to 20 mIU/mL 4 [facility] Severe Sepsis and Septic Shock Management Bundle Measure requires all lactic acids initially measuring >2.0 mmol/L be repeated. 5 Because ethnic data is not always readily [...] 15-29 5 Kidney failure <15 (or dialysis) 6 Because ethnic data is not always [...] 5 Kidney failure <15 (or dialysis) 7 SEE RESULT BELOW Name: ABBY CARLTON : [address]: Clemente Finley MD Acct: [id number] Unit: [id number] AGE: 37 Location: [place] [address] Re07/27/18 SEX: F Status: ADM IN SPEC: [id number] EH: 07/27/[address]: Arley Mason MD REQ: [id number] RECD: 07/27/18 STATUS: LOIDA MCKNIGHT DR: Malina Blount CORE FITTER _ SOURCE: URINE SPDESC: ORDERED: Urine Culture Procedure Result Reported Site Urine Culture Final 07/29/18- 1001 ML No growth of clinically significant organisms * ML - Main Lab . END OF REPORT DEPARTMENT OF PATHOLOGY, [address] [place] [address] Francisco Marques M.D. Director [facility] # [id number] 8 <5.0 Negative 5.0 - 25.0 Indeterminate (Repeat testing recommended after 72 hours) >25.0 Positive Perimenopausal women can display HCG levels of up to 20 mIU/mL 9 Desirable: <150 Borderline High: 150-199 High: 200-499 Very High: >500 10 Because ethnic data is not always [...] 5 Kidney failure <15 (or dialysis) 11 Critical Result CO2:12 Called to [id number] at: 20:45:25 by:[id number] Read back by:[id number] 12 [facility] Severe Sepsis and Septic Shock Management Bundle Measure requires all lactic acids initially measuring >2.0 mmol/L be repeated. 13 SEE RESULT BELOW Name: ABBY CARLTON : [address]: Heydi So DO Acct: [id number] Unit: [id number] AGE: 37 Location: [place] [address] Re05/28/18 Dis: 05/29/18 SEX: F Status: DIS Jonathan SPEC: [id number] EH: 05/29/[address] [facility] [address]: Solomon Rey MD REQ: [id number] RECD: 05/29/18 STATUS: LOIDA MCKNIGHT DR: Malina Blount CORE FITTER _ SOURCE: URINE SPDESC: ORDERED: Urine Culture Procedure Result Reported Site Urine Culture Final 05/30/18- 1053 ML No growth of clinically significant organisms * ML - Main Lab . END OF REPORT DEPARTMENT OF PATHOLOGY, [address] [place] [address] Francisco Marques M.D. Director [facility] # [id number] 14 Desirable: <150 Borderline High: 150-199 High: 200-499 Very High: >500 15 Desirable: <200 Borderline High: 200-239 High: >239 16 Low: <40 Desirable: 40-60 High: >60 17 Desirable: <100 Near Optimal: 100-129 Borderline High: 130-159 High: 160-189 Very High: >189 18 <5.0 Negative 5.0 - 25.0 Indeterminate (Repeat testing recommended after 72 hours) >25.0 Positive Perimenopausal women can display HCG levels of up to 20 mIU/mL 19 Unable to report test result due to hemolysis. 20 Because ethnic data is not always readily [...] 15-29 5 Kidney failure <15 (or dialysis) 21 Specimen Hemolyzed. Result may not be valid. Unable to report test result due to hemolysis. Verbal to [id number] by [id number] at 1341 on 1341.Results read back accurately 22 Unable to report test result due to hemolysis. 23 Specimen hemolyzed. Result may not be valid. [facility] Severe Sepsis and Septic Shock Management Bundle Measure requires all lactic acids initially measuring >2.0 mmol/L be repeated. 24 SEE RESULT BELOW Name: ABBY CARLTON : [address]: Abdelrahman Collazo MD Acct: [id number] Unit: [id number] AGE: 37 Location: ED Re05/26/18 SEX: F Status: DEP ER SPEC: [id number] EH: 05/26/18-UNK SUBM DR: Alicia CRUZ REQ: [id number] RECD: 05/26/18 STATUS: LOIDA MCKNIGHT DR: [facility] Malina Blount CORE FITTER _ SOURCE: URINE SPDESC: ORDERED: Urine Culture Procedure Result Reported Site Urine Culture Final 05/28/18- 0852 ML No growth of clinically significant organisms * - [facility] Lab . END OF REPORT DEPARTMENT OF PATHOLOGY, [address] [place] [address] Francisco Marques M.D. Director [facility] # [id number] 25 SEE RESULT BELOW Name: ABBY CARLTON : [address]: Slava Westbrook MD Acct: [id number] Unit: [id number] AGE: 37 Location: [place] Re04/12/18 SEX: F Status: YUNI MCGARRY SPEC: [id number] EH: 04/12/[address] [facility] [address]: Slava Westbrook MD REQ: [id number] RECD: 04/12/180933 STATUS: SOUT _ ORDERED: LEVEL 1 FINAL DIAGNOSIS Foot, right, hardware removal: Foreign body (orthopedic hardware) (gross diagnosis) PRE-OPERATIVE DIAGNOSIS Hardware right foot GROSS DESCRIPTION The specimen is received fresh labeled, Hardware Right Foot, and consists of a 2.6 by up to 1.1 x 0.1 cm blue metallic plate with multiple ovoid holes. The following inscription is identified: [id number]. Received separately in the same container are five donnelly metallic threaded two partially threaded spline headed screws ranging from 2.0 x 0.2 cm to 3.2 x 0.2 cm. Per established hospital medical staff protocol, no tissue is submitted. Gross only. Signed by and Reported on: Lavern Hewitt MD 04/13/18 1142 END OF REPORT DEPARTMENT OF PATHOLOGY, [address] [place] [address] Francisco Marques M.D. Director [facility] # [id number] 26 [facility] Severe Sepsis and Septic Shock Management Bundle Measure requires all lactic acids initially measuring >2.0 mmol/L be repeated. 27 Because ethnic data is not always readily [...] 15-29 5 Kidney failure <15 (or dialysis) 28 Specimen Hemolyzed. Result may not be valid. Unable to report test result due to hemolysis. 29 Unable to report test result due to hemolysis. 30 <5.0 Negative 5.0 - 25.0 Indeterminate (Repeat testing recommended after 72 hours) >25.0 Positive Perimenopausal women can display HCG levels of up to 20 mIU/mL 31 Result TnIDx:0.14 Called to [id number] at: 22:53:12 by:[id number] Read back by: [id number] 32 SEE RESULT BELOW Name: ABBY CARLTON : [address]: Chasidy Ivy MD Acct: [id number] Unit: [id number] AGE: 37 Location: [place] [address] Re03/29/18 SEX: F Status: ADM IN SPEC: [id number] EH: 03/29/[address] [facility] [address]: Abdelrahman Collazo MD REQ: [id number] RECD: 03/29/18 STATUS: LOIDA MCKNIGHT DR: Malina Blount CORE FITTER _ SOURCE: URINE SPDESC: ORDERED: Urine Culture Procedure Result Reported Site Urine Culture Final 03/30/18- 811 ML No growth of clinically significant organisms * ML - Main Lab . END OF REPORT DEPARTMENT OF PATHOLOGY, [address] [place] [address] Francisco Marques M.D. Director [facility] # [id number] 33 Because ethnic data is not always [...] 5 Kidney failure <15 (or dialysis) 34 <5.0 Negative 5.0 - 25.0 Indeterminate (Repeat testing recommended after 72 hours) >25.0 Positive Perimenopausal women can display HCG levels of up to 20 mIU/mL 35 SEE RESULT BELOW Name: ABBY CARLTON : [address]: Chasidy Ivy MD Acct: [id number] Unit: [id number] AGE: 37 Location: [place] [address] Re01/15/18 SEX: F Status: ADM IN SPEC: [id number] EH: 01/14/[address] [facility] [address]: Larry Ricks MD REQ: [id number] RECD: 01/14/18 STATUS: LOIDA MCKNIGHT DR: Malina Blount CORE FITTER _ SOURCE: URINE SPDESC: ORDERED: Urine Culture Procedure Result Reported Site Urine Culture Final 01/16/18- 1141 ML No growth of clinically significant organisms * ML - Main Lab . END OF REPORT DEPARTMENT OF PATHOLOGY, [address] [place] [address] Francisco Marques M.D. Director [facility] # [id number] 37 SEE RESULT BELOW Name: ABBY CARLTON : [address]: Malina Blount NP Acct: [id number] Unit: [id number] AGE: 37 Location: [facility] Re11/05/17 SEX: F Status: REG REF FREDDY: [id number] EH: 11/05/17-[address] [facility] [address]: Malina Blount NP REQ: [id number] RECD: 11/05/17 STATUS: COMP _ SOURCE: URINE SPDESC: ORDERED: Urine Culture COMMENTS: [id number] Urine Source: Clean Catch Procedure Result Reported Site Urine Culture Final 11/07/17- 0843 ML Organism 1 ESCHERICHIA COLI [place] Count >100,000 (Many) CFU/ML 1. ESCHERICHIA COLI [...] Department for any additional antibiotic reporting. * - Main Lab . END OF REPORT DEPARTMENT OF PATHOLOGY, [address] [place] [address] Francisco Marques M.D. Director [facility] # [id number] 37 SEE RESULT BELOW Name: ALBINA CARLTONTEETEE Sood : [address]: Jose Lorenzo MD Acct: [id number] Unit: [id number] AGE: 37 Location: ED Re09/04/17 SEX: F Status: DEP ER SPEC: [id number] EH: 09/04/[address]: Lavern CRUZ REQ: [id number] RECD: 09/04/17 STATUS: LOIDA MCKNIGHT DR: Leila Blount CORE FITTER _ SOURCE: URINE SPDESC: ORDERED: Urine Culture Procedure Result Reported Site Urine Culture Final 09/06/17- 1010 ML Mixed iban; possible contamination. Suggest resubmission. * ML - Main Lab . END OF REPORT DEPARTMENT OF PATHOLOGY, [address] [place] [address] Francisco Marques M.D. Director [facility] # [id number] 38 Because ethnic data is not always readily [...] 15-29 5 Kidney failure <15 (or dialysis) 39 Low risk: <1.00 Average risk: 1.00-3.00 High risk: >3.00 40 <5.0 Negative 5.0 - 25.0 Indeterminate (Repeat testing recommended after 72 hours) >25.0 Positive Perimenopausal women can display HCG levels of up to 20 mIU/mL 41 [facility] Severe Sepsis and Septic Shock Management Bundle Measure requires all lactic acids initially measuring >2.0 mmol/L be repeated. 42 Because ethnic data is not always readily [...] 15-29 5 Kidney failure <15 (or dialysis) 43 Acute inflammation: >10.00 44 <5.0 Negative 5.0 - 25.0 Indeterminate (Repeat testing recommended after 72 hours) >25.0 Positive Perimenopausal women can display HCG levels of up to 20 mIU/mL 45 Desirable: <150 Borderline High: 150-199 High: 200-499 Very High: >500 46 Desirable: <200 Borderline High: 200-239 High: >239 47 Low: <40 Desirable: 40-60 High: >60 48 Desirable: <100 Near Optimal: 100-129 Borderline High: 130-159 High: 160-189 Very High: >189 49 Please note: The following may produce a false positive D Dimer test: - Rheumatoid factor greater than 60 IU/ml - Plasma hemoglobin greater than 0.05 gm/dl - Bilirubin greater than 50 mg/dl - Lipids greater than 1000 mg/dl - FDP greater than 20 ug/ml 50 Acute inflammation: >10.00 51 Test Performed by: [address] [address] 52 Reference ranges based on room air. 53 Because ethnic data is not always readily [...] 15-29 5 Kidney failure <15 (or dialysis) 54 SEE RESULT BELOW Name: SHARAABBY A : [address]: Jose Lorenzo MD Acct: [id number] Unit: [id number] AGE: 36 Location: ED Re06/08/17 SEX: F Status: DEP ER SPEC: [id number] EH: 06/08/[address]: Lavern CRUZ REQ: [id number] RECD: 06/08/17 STATUS: LOIDA MCKNIGHT DR: [facility] Malina Blount CORE FITTER _ SOURCE: URINE SPDESC: ORDERED: Urine Culture Procedure Result Reported Site Urine Culture Final 06/10/17- 0815 ML No growth of clinically significant organisms * ML - MAIN LAB ([facility]) . END OF REPORT * ML=Testing performed at Main Lab DEPARTMENT OF PATHOLOGY, [address] [place] [address] Francisco Marques M.D. Director [facility] # [id number] 55 Because ethnic data is not always readily [...] 15-29 5 Kidney failure <15 (or dialysis) 56 Unable to evaluate urinalysis dipstick results due to interfering color. Notified [id number] 1835 06/08/17. 57 Unable to evaluate urinalysis dipstick results due to interfering color. Notified [id number] 1835 06/08/17. 58 Unable to evaluate urinalysis dipstick results due to interfering color. Notified [id number] 1835 06/08/17. 59 Unable to evaluate urinalysis dipstick results due to interfering color. Notified [id number] 1835 06/08/17. 60 Unable to evaluate urinalysis dipstick results due to interfering color. Notified [id number] 1835 06/08/17. 61 Unable to evaluate urinalysis dipstick results due to interfering color. Notified [id number] 1835 06/08/17. 62 Unable to evaluate urinalysis dipstick results due to interfering color. Notified [id number] 1835 06/08/17. 63 Unable to evaluate urinalysis dipstick results due to interfering color. Notified [id number] 1835 06/08/17. 64 Unable to evaluate urinalysis dipstick results due to interfering color. Notified [id number] 1835 06/08/17. 65 Low risk: <1.00 Average risk: 1.00-3.00 High risk: >3.00 66 <5.0 Negative 5.0 - 25.0 Indeterminate (Repeat testing recommended after 72 hours) >25.0 Positive Perimenopausal women can display HCG levels of up to 20 mIU/mL 67 Because ethnic data is not always readily [...] 15-29 5 Kidney failure <15 (or dialysis) 68 REFERENCE VALUE Cutoff: 500 69 REFERENCE VALUE Cutoff: 200 70 REFERENCE VALUE Cutoff: 100 71 REFERENCE VALUE Cutoff: 150 72 ADDITIONAL INFORMATION This report is intended for use in clinical monitoring or management of patients. It is not intended for use in employment-related testing. 73 REFERENCE VALUE Cutoff: 200 mg/L 74 Tylenol 3 75 Metabolite of codeine REFERENCE VALUE Cutoff: 100 76 Coco Schmid, MS Contin; Also a minor metabolite (10%) of codeine and can be seen in low concentrations (<2,000 ng/mL) with poppy seed ingestion. 77 Metabolite of morphine REFERENCE VALUE Cutoff: 100 78 Metabolite of heroin 79 Lortab, [place], Vicodin; Also a very minor metabolite of codeine and impurity (<1%) of oxycodone. 80 Metabolite of hydrocodone 81 Metabolite of hydrocodone 82 Dilaudid, Exalgo; Also a metabolite of hydrocodone and a minor (<5%) metabolite of morphine. 83 Metabolite of hydromorphone REFERENCE VALUE Cutoff: 100 84 Endocet, Percocet, Oxycontin 85 Metabolite of oxycodone 86 Numorphan, Opana; Also a metabolite of oxycodone. 87 Metabolite of oxymorphone REFERENCE VALUE Cutoff: 100 88 Metabolite of oxymorphone 89 Actiq, Duragesic, Fentora 90 Metabolite of fentanyl 91 Demerol 92 Metabolite of meperidine 93 Narcan 94 Metabolite of naloxone REFERENCE VALUE Cutoff: 100 95 Dolophine 96 Metabolite of methadone 97 Darvon, Darvocet 98 Metabolite of propoxyphene 99 Tradol, Ultram, Ultracet 10 Metabolite of tramadol 0 10 Nucynta 1 10 Metabolite of tapentadol 2 10 Metabolite of tapentadol 3 REFERENCE VALUE Cutoff: 100 10 Buprenex, Suboxone 4 10 Metabolite of buprenorphine 5 10 Metabolite of buprenorphine 6 10 Test detected the presence of oxycodone and several 7 metabolites (noroxycodone, noroxymorphone, and fjdzbweydta-1-nmaw-glucuronide). Suspect use of oxycodone or possibly oxycodone and oxymorphone within the past three days. ADDITIONAL INFORMATION This test was developed and its performance characteristics determined by [facility] in a manner consistent with CLIA requirements. This test has not been cleared or approved by the U.S. Food and Drug Administration. Test Performed by: [facility] [address] [place] [address] 10 Normal Range 180 to 914 8 Indeterminate Range 145 to 180 Deficient Range <145 10 Because ethnic data is not always readily available, 9 this report includes an eGFR for both [...] dialysis) Procedures Date Code Description Status 04/12/2018 31987 Implant Nerve End Into Bone Or Muscle Completed 04/12/2018 31394 Excision Neuroma, Cutaneous Nerve Completed 04/12/2018 Removal Implant Deep Wire,Screw Nail,Abdiel Or Plate Completed 04/12/2018 Removal Implant Deep Wire,Screw Nail,Abdiel Or Plate Completed 03/29/2018 10807 ECHO Transthorasic Realtime 2D W Doppler & Color Flow Hosp Completed 02/18/2018 28695 Injection,Anesthetic Agent, Other Peripheral Nerve Branch Completed 01/20/2018 97429 Endoscopy Upper GI Biopsy Completed 10/14/2017 11302 Short Leg Cast Completed 10/06/2017 17067 Short Leg Cast Completed 10/01/2017 19025 FX Tarsal Care Completed 10/01/2017 45749 FX Tarsal Care Completed 10/01/2017 23447 FX Metatarsal Care Completed 10/01/2017 82378 FX Metatarsal Care Completed 10/01/2017 02796 Open TX Metatarsal FX,Incl Intl Fixation When Performed Completed 10/01/2017 15158 Dislocation Tarsometatarsal JT W/Wo Fixation Open TX Completed 10/01/2017 12693 Dislocation Tarsometatarsal JT W/Wo Fixation Open TX Completed 10/01/2017 74364 Dislocation Tarsometatarsal JT W/Wo Fixation Open TX Completed 10/01/2017 64205 Dislocation Tarsometatarsal JT W/Wo Fixation Open TX Completed 06/12/2017 97795 ECHO Transthorasic Realtime 2D W Doppler & Color Flow Hosp Completed 06/12/2017 54342 EKG, Interpretation Only Completed Encounters Type Date Location Provider Dx Diagnosis Office Visit 08/27/2018 [facility] Internal Hernandez Casper NP K85.20 Alcohol induced 8:40a Medicine - acute pancreatitis [place] without necrosis or infct N39.0 Urinary tract infection, site not specified Office Visit 08/06/2018 3:20p [facility] Internal Malina Blount K85.20 Alcohol induced Medicine - N.P. acute pancreatitis [place] without necrosis or infct R19.7 Diarrhea, unspecified F33.9 Major depressive disorder, recurrent, unspecified Office Visit 07/29/2018 [facility] Samuel K85.20 Alcohol induced 9:35a Assoc,julia Finley M.D. acute pancreatitis [facility] without necrosis or infct E87.2 Acidosis Office Visit 07/28/2018 9:35a [facility] Navya Jackson K85.20 Alcohol induced Assocjulia MD acute pancreatitis [facility] without necrosis or infct F10.188 Alcohol abuse with other alcohol-induced disorder E87.2 Acidosis M54.9 Dorsalgia, unspecified Office Visit 07/27/2018 9:35a [facility] Edie R10.9 Unspecified Assoc,julia Bowles DO abdominal pain Hospitalists E87.2 Acidosis K85.20 Alcohol induced acute pancreatitis without necrosis or infct Office Visit 06/01/2018 4:00p [facility] Internal Malina Blount K85.20 Alcohol induced Medicine - N.P. acute pancreatitis [place] without necrosis or infct K21.9 Gastro-esophageal reflux disease without esophagitis Office Visit 05/29/2018 9:55a [facility] Gabino M54.9 Dorsalgia, Assoc,ANTHONY Moe unspecified Hospitalists J45.20 Mild intermittent asthma, uncomplicated K85.20 Alcohol induced acute pancreatitis without necrosis or infct Office Visit 05/28/2018 [facility] Gabino K85.20 Alcohol induced 9:54a Assoc,ANTHONY Moe acute pancreatitis Hospitalists without necrosis or infct K70.10 Alcoholic hepatitis without ascites J45.909 Unspecified asthma, uncomplicated F41.9 Anxiety disorder, unspecified Office Visit 04/01/2018 [facility] Glenda K85.20 Alcohol induced 11:13a Assoc,julia Melton D.O. acute pancreatitis Hospitalists without necrosis or infct F41.9 Anxiety disorder, unspecified F10.19 Alcohol abuse with unspecified alcohol-induced disorder M54.9 Dorsalgia, unspecified [facility] K[facility].20 Alcohol induced 11:13a julia Denson M.D. acute Hospitalists pancreatitis without necrosis or infct E16.2 Hypoglycemia, unspecified F10.19 Alcohol abuse with unspecified alcohol-induced disorder F41.9 Anxiety disorder, unspecified M54.9 Dorsalgia, unspecified [facility] K[facility].20 Alcohol induced 11:12a julia Denson M.D. acute Hospitalists pancreatitis without necrosis or infct F10.19 Alcohol abuse with unspecified alcohol-induced disorder E16.2 Hypoglycemia, unspecified F41.9 Anxiety disorder, unspecified [facility] K[facility] Alcohol induced 11:11a julia Denson M.D. acute Hospitalists pancreatitis without necrosis or infct E16.2 Hypoglycemia, unspecified F10.19 Alcohol abuse with unspecified alcohol-induced disorder F41.9 Anxiety disorder, unspecified Office Visit 03/23/2018 10:00a Orthopedic Slava Westbrook, M79.671 Pain in right Services Of C.M.A. M.D. foot G57.91 Unspecified mononeuropathy of right lower limb Office Visit 03/12/2018 2:00p [facility] Internal Malina Blount, R03.0 Elevated Medicine [...] Pain in right foot Office Visit 01/21/2018 [facility] Edmundo Mario K85.20 Alcohol induced 10:35a Assoc,pc MD Fernanda acute Hospitalists pancreatitis without necrosis or infct K29.70 Gastritis, unspecified, without bleeding F10.10 Alcohol abuse, uncomplicated F17.210 Nicotine dependence, cigarettes, uncomplicated Office Visit 01/20/2018 [facility] Gastroenterology Sangeeta R10.13 Epigastric pain 7:00a MD Maksim K85.20 Alcohol induced acute pancreatitis without necrosis or infct K21.9 Gastro-esophageal reflux disease without esophagitis Office Visit 01/20/2018 10:35a [facility] Samuel R10.13 Epigastric pain Assoc,julia Finley M.D. Hospitalists K85.20 Alcohol induced acute pancreatitis without necrosis or infct F10.10 Alcohol abuse, uncomplicated Z72.0 Tobacco use Office Visit 01/19/2018 [facility] K85.20 Alcohol induced 10:34a Assoc,julia Finley M.D. acute pancreatitis Hospitalists without necrosis or infct F10.10 Alcohol abuse, uncomplicated R10.13 Epigastric pain Z72.0 Tobacco use Office Visit 01/18/2018 [facility] K85.20 Alcohol induced 10:34a Assoc,julia Finley M.D. acute pancreatitis Hospitalists without necrosis or infct R10.13 Epigastric pain F10.10 Alcohol abuse, uncomplicated Office Visit 01/17/2018 [facility] R10.13 Epigastric pain 10:34a Assoc,julia Lancaster, CORE FITTER Hospitalists K85.20 Alcohol induced acute pancreatitis without necrosis or infct F10.10 Alcohol abuse, uncomplicated Office Visit 01/16/2018 [facility] R10.13 Epigastric pain 10:33a Assoc,julia Lancaster, CORE FITTER Hospitalists K85.20 Alcohol induced acute pancreatitis without necrosis or infct F10.10 Alcohol abuse, uncomplicated Office Visit 01/15/2018 10:33a [facility] Glenda R10.13 Epigastric pain Assoc,julia Melton D.O. Hospitalists K85.20 Alcohol induced acute pancreatitis without necrosis or infct Office Visit 11/05/2017 11:20a [facility] Internal Malina Blount, Z00.00 Encntr for Medicine - N.P. general adult [place] medical exam w/o abnormal findings F33.9 Major [...] foot, init Office Visit 09/22/2017 Orthopedic Casey Yu, S92.334A Nondisp fx of 2:00p Services Of third metatarsal C.M.A. bone, right foot, init S92.344A Nondisp fx of fourth metatarsal bone, right foot, init Office Visit 09/10/2017 9:00a [facility] Internal Malina Blount, F33.9 Major depressive Medicine - N.P. 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 pancreatitis Hospitalists Office Visit 06/13/2017 7:16a [facility] Norma Eller, J18.9 Pneumonia, Assoc,pc N.P. unspecified Hospitalists organism J45.20 Mild intermittent asthma, uncomplicated Office Visit 06/12/2017 10:34a Pulmonology And Lazara R06.02 Shortness of Sleep Services Of MD Moses breath [facility] N20.1 Calculus of ureter R00.0 Tachycardia, unspecified R10.12 Left upper quadrant pain Office Visit 06/03/2017 11:20a [facility] Internal Mitesh Peraza R07.89 Other chest pain Medicine - Felicita Kimball [place] Office Visit 04/13/2017 4:00p [facility] Internal Malina Blount, K86.0 Alcohol- induced Medicine - N.P. chronic [place] pancreatitis M54.5 Low back pain Office Visit 03/26/2017 10:40a [facility] Internal Malina Blount M54.5 Low back pain Medicine - N.P. [place] F41.1 Generalized anxiety disorder K85.20 Alcohol induced acute pancreatitis without necrosis or infct M79.2 Neuralgia and neuritis, unspecified Office Visit 03/08/2017 [facility] K85.20 Alcohol induced 9:33a Assoc,julia Larry, VIMAL acute Hospitalists pancreatitis without necrosis or infct M54.5 Low back pain J45.20 Mild intermittent asthma, uncomplicated G89.29 Other chronic pain Office Visit 03/07/2017 [facility] K85.20 Alcohol induced 9:33a Assoc,julia Larry, VIMAL acute Hospitalists pancreatitis without necrosis or infct M54.5 Low back pain J45.20 Mild intermittent asthma, uncomplicated G89.29 Other chronic pain Office Visit 03/06/2017 [facility] Raul Sheth K85.20 Alcohol induced 9:32a Assoc,julia ELLNIGTON M.D. acute Hospitalists pancreatitis without necrosis or infct M54.5 Low back pain J45.20 Mild intermittent asthma, uncomplicated G89.29 Other chronic pain Office Visit 02/27/2017 4:20p [facility] Internal Malina Varn, M54.5 Low back pain Medicine - N.P. [place] J45.901 Unspecified asthma with (acute) exacerbation Office Visit 01/27/2017 2:20p [facility] Internal Malina Varn, R11.2 Nausea with Medicine - N.P. vomiting, [place] unspecified M54.5 Low back pain F41.1 Generalized anxiety disorder G47.00 Insomnia, unspecified B35.3 Tinea pedis Office Visit 12/24/2016 3:00p [facility] Internal Malina Varn, K85.90 Acute pancreatitis Medicine - N.P. without necrosis [place] or infection, unsp R11.2 Nausea with vomiting, unspecified M54.5 Low back pain Office Visit 12/10/2016 4:00p [facility] Internal Malina Mine, J18.9 Pneumonia , Medicine - N.P. unspecified [place] organism K85.90 Acute pancreatitis without necrosis or infection, unsp R11.2 Nausea with vomiting, unspecified Office Visit 11/22/2016 [facility] Barry Torres18.9 Pneumonia, 8:29a julia Denson M.D. unspecified Hospitalists organism K85.90 Acute pancreatitis without necrosis or infection, unsp Office Visit 11/21/2016 [facility] John Torres.9 Pneumonia, 8:29a julia DensonD. unspecified Hospitalists organism M54.5 Low back pain K85.90 Acute pancreatitis without necrosis or infection, unsp J45.20 Mild intermittent asthma, uncomplicated Office Visit 11/20/2016 8:28a [facility] Barbara J18.9 Pneumonia, Assoc,julia Issa M.D. unspecified Hospitalists organism K85.90 Acute pancreatitis without necrosis or infection, unsp Office Visit 11/19[facility]2016 [facility]neumonia, Assoc,julia Issa M.D. unspecified Hospitalists organism M54.5 Low back pain K85.90 Acute pancreatitis without necrosis or infection, unsp Office Visit 11/18/2016 [facility] Raul Sheth J18.9 Pneumonia, 8:26a Assoc,julia ELLINGTON M.D. unspecified Hospitalists organism M54.5 Low back pain K85.90 Acute pancreatitis without necrosis or infection, unsp J45.20 Mild intermittent asthma, uncomplicated Office Visit 11/15/2016 [facility] Yves K85.20 Alcohol induced 10:39a Assocjulia M.D. acute Hospitalists pancreatitis without necrosis or infct N30.00 Acute cystitis without hematuria M54.5 Low back pain F10.231 Alcohol dependence with withdrawal delirium Office Visit 11/14/2016 [facility] Miller Garner K85.20 Alcohol induced 2:34p Assjulia arteaga D.O. acute pancreatitis Hospitalists without necrosis or infct Office Visit 11/13/2016 [facility] Miller Garner K85.20 Alcohol induced 2:33p Assoc,Axel Henriquez.O. acute pancreatitis Hospitalists without necrosis or infct N30.00 Acute cystitis without hematuria F10.231 Alcohol dependence with withdrawal delirium Office Visit 11/12/2016 [facility] Miller Garner K85.20 Alcohol induced 2:32p Assoc,Axel Henriquez.O. acute pancreatitis Hospitalists without necrosis or infct F10.231 Alcohol dependence with withdrawal delirium Office Visit 11/12/2016 [facility] Samuel K85.20 Alcohol induced 10:38a Assocjulia M.D. acute pancreatitis Hospitalists without necrosis or infct M54.5 Low back pain F10.231 Alcohol dependence with withdrawal delirium Office Visit 11/11/2016 [facility] Samuel K85.20 Alcohol induced 10:38a Assoc,julia Finley M.D. acute pancreatitis Hospitalists without necrosis or infct M54.5 Low back pain F10.10 Alcohol abuse, uncomplicated Office Visit 11/10/2016 [facility] Navin K85.20 Alcohol induced 10:35a Assoc,julia Hawthorne NGladys acute Hospitalists pancreatitis without necrosis or infct M54.5 Low back pain F10.10 Alcohol abuse, uncomplicated Office Visit 05/05/2013 10:00a Orthopedic Corinna Lares, 354.0 Carpal Tunnel Services Of Felicita Syndrome C.M.A. 727.42 Ganglion Tendon Sheath Plan of Treatment 09/21/2018 - Malina Blount N.P.Z00.00 Encounter for general adult medical examination without abnoComments:Your Tetanus immunization is up to date. You received this in 2013. It is good for 10 years unless you have a major injury, then it is good for 5 years.F33.9 Major depressive disorder, recurrent, unspecifiedComments:For your depression:I urge you to touch base with [facility] and set up an appointment. I think it would be helpful for you to get your medication adjusted.F10.188 Alcohol abuse with other alcohol- induced disorderComments:It is imperative that you stay away from consuming alcohol. I am happy to refer you to the alcohol [facility] drug [place] to help you with your recovery.J45.20 Mild intermittent asthma, uncomplicatedNew Medication: Albuterol Sulfate HFA 108(90 Base) mcg/Act - inhale 2 puffs by mouth four times a day as neededComments:For your asthma:Continue your current management. If at any point you find you need to use your rescue inhaler more than twice weekly on a regular basis, please call the office. This indicates your asthma is not adequately controlled.K21.9 Gastro-esophageal reflux disease without esophagitisComments:For your esophageal reflux and abdominal pain I want you to follow up with the GI folks.F17.210 Nicotine dependence, cigarettes, uncomplicatedComments:It is imperative that you quit smoking. There are several medications that can help and numerous organizations that can offer you support. [facility] has a quit line you may call at 1 [phone]. Please give the office a call if you would like some assistance.G89.4 Chronic pain syndromeComments:For your pain:Continue taking your Gabapentin. I have given you a small prescription for Oxycontin.Z01.411 Encounter for gynecological examination (general) (routine)New Labs:Cytology, Ordered: 09/21/18Comments:You have had your pap smear today.The office will contact you with the results. If this is normal I will repeat it in 3 years.B37.0 Candidal stomatitisNew Medication:Nystatin 528236 Unit/ML - 08/25/18 report not taking. 4 milliliters four times a day, swish and swallow for 10 daysComments:For your thrush: I have sent a prescription for Nystatin oral solution. You are to take 4 ml of solution , swish this in your mouth, and then swallow, 4 times daily, for 14 days.If your symptoms do not improve, give the office a call.
--- OUTSIDE RECORDS SUMMARY | 2018-09-24 17:36 | XMS REPORT | Continuity of Care Document ---
:1980 External Reference #:[id number] Author Name Yves Meme Care Team Providers Name Role Phone Patient's Choice Primary Care Physician Unavailable Payers Date Identification Numbers Payment Provider Subscriber Policy Number: [id number] [employer] Medicaid Abby Carlton PayID: [id number] [id number] [place] [id number] Advance Directives Type Date Description Status Comment [...] M.D. Active Onset: 03/29/2018 Anxiety state Chasidy Ivy M.D. Active Family History Date [...] Use Currently consumes Drinks when watching alcohol [employer] races once weekly. Recreational Drug Use Denies Drug Use Tobacco Use Start: Unknown Light tobacco smoker (10 or fewer cigarettes/day) Smoking Status Reviewed: 08/27/18 Light tobacco smoker (10 or fewer cigarettes/day) [...] Form Strength Qnty SIG Indications Ordering Provider Macrobid 08/27 Active Capsules 100mg 14cap one capsule N39.0 Hernandez s twice a day Pennie TICKET CLERK x 7 days Seroquel 08/06 Active Tablets 50mg 30tab One po F33.9 s daily Varn, N.P. Oxycodone HCL 08/06 Active Tablets 10mg 15tab 1 by mouth s every 8 Varn, N.P. hours as needed pain(only 15 given) Gabapentin 06/01 Active Capsules 300mg 60cap 1 by mouth K85.20 Malina /2018 s in in the Varn, N.P. morning, 1 by mouth mid day Ranitidine HCL 06/01 Active Tablets 150mg 60tab take one K21.9 Malina /2018 s tablet by Varn, N.P. mouth twice a day Oxycodone HCL 06/01 Active Tablets 5mg 6tabs one by K85.20 Hernandez mouth twice Pennie, TICKET CLERK a day Gabapentin 03/12 Active Tablets 600mg 120ta 1 tablet by Malina /2018 bs mouth in in Varn, N.P. the morning, 1 tablet by mouth mid day, 2 tablets at bedtime Walker Swivel 11/05 Active Misc 3" 1unit use this to S93.324D Malina Wheels/ s ambulate Varn, N.P. Adjustment Holes/3" With Seat Hydroxyzine 01/27 Active Capsules 25mg 30cap Take 1 F41.1 Malina Pam s Capsule By Varn, N.P. Mouth Every [...] Capsules 40mg 30cap [address] church every day Varn, N.P. Baclofen Active Tablets 10mg 45tab Take 06/30 s Tablet By Varn, N.P. Mouth Every [...] Baclofen 06/25 Hx Tablets 10mg 45tab Take 06/30 M54.9 s Tablet By Varn, N.P. - [...] 02/27 Hx Tablets 5mg 20tab one by 4. s mouth every Varn, N.P. - 8 hours as 06/02 needed Medrol 02/27 Hx TBPK 4mg 21uni 6 [...] by mouth R11.2 DR church every day Mine, N.P. - 02/27 Flector 12/24 Hx Patches 1.3% 60uni apply 1 . ts patch twice Varn, N.P. - a day 06/02 Gabapentin 12/24 Hx Capsules 300mg 270ca take 3 M54. ps capsules by Varn, N.P. - mouth [...] by K85.90 Malina /2017 s mouth every Varn, N.P. - 8 hours as 02/27 needed pain /2016 Oxycodone HCL Hx Tablets 10mg 1 po q 4 Unknown /0000 hrs prn - pain MDD 6 03/29 tabs [place] [place] Omeprazole Hx Capsules 40mg 1 by mouth Unknown /0000 DR every day - ([facility] 06/24 summary) Ibu-200 Hx Tablets 200mg 2 tab as Unknown /0000 needed. - 01/25 Oxycodone HCL Hx Tablets 5mg 30tab 1 tab po Casey /0000 s q4-6 hours Aimee, - prn 01/26 Cyclobenzaprine Hx Tablets 5mg 30tab take one Malian HCL / s tablet by Varn, N.P. - mouth every 04/05 8 hours [...] mouth Unknown /0000 every day - 03/12 Oxycodone HCL Hx Tablets 5mg 20tab 1 tab po Slava /0000 s q4-6 hours Viraj [place] prn pain Felicita 05/31 Seroquel Hx Tablets 25mg 30tab Take 1 R11.2 Malina /0000 s Tablet By Mine, N.P. - Mouth AT 08/06 Bedtime Oxycodone Hx Tablets 10mg 1 by mouth Unknown /0000 every 6 - hours as 08/06 needed pain(only 15 given) Sodium Hx Tablets 650mg 1 tab by Unknown Bicarbonate /0000 mouth 4 - times a day 08/26 Medications Administered in Office Medication Date Status Form Strength Qnty SIG Indications Ordering Provider Ozzy Administered Injection Slava 40MG 018 Felicita [place] Immunizations CPT Code Status Date Vaccine Reaction Lot # [id number] Given 03/12/2018 Influenza Virus Vaccine, No immediate [id number] Quadrivalent, Split, reaction..jh Preservative Free [id number] Given 03/27/2014 Tdap - Tetanus/Diptheria/Acellular Pertussis 57387 Given 06/26/2011 Influenza Virus Vaccine, Quadrivalent, Split, Preservative Free 99459 Given 07/31/2009 Influenza Virus Vaccine, Quadrivalent, Split, Preservative Free 04125 Given 07/31/2009 Influenza Virus Vaccine, Quadrivalent, Split, Preservative Free 24602 Given 07/31/2009 Influenza Virus Vaccine, Quadrivalent, Split, Preservative Free 37432 Given 07/31/2009 Influenza Virus Vaccine, Quadrivalent, Split, Preservative Free 23203 Given 07/31/2009 Influenza Virus Vaccine, Quadrivalent, Split, Preservative Free 61640 Given 07/31/2009 Influenza Virus Vaccine, Quadrivalent, Split, Preservative Free 72795 Given 06/25/2007 Influenza Virus Vaccine, Quadrivalent, Split, Preservative Free 18633 Given 06/25/2007 Influenza Virus Vaccine, Quadrivalent, Split, Preservative Free 45672 Given 06/25/2007 Influenza Virus Vaccine, Quadrivalent, Split, Preservative Free 25713 Given 06/25/2007 Influenza Virus 3Yrs & Over 30575 Given 07/08/2004 Tetanus And Diptheria (Td) For Adult Use Preservative Free 08180 Given 07/08/2004 Measles Mumps And Rubella MMR Vital Signs Date Vital Result Comment 08/27/2018 8:47am Height 61 inches 5'1" Weight [...] Date Facility Test Result H/L Range Note Ua Routine 08/27/2018 Facility Worker In House Ua Specific [place] 1.030 Ua PH 5 Ua Color red Ua Appera cloudy Ua WBC positive Ua Protein ++ Ua Glucose normal Ua Ketones negative Ua Bilirubin +++ Ua Urobilinogen negative Ua Nitrite positive Ua Occult Blood 250 Urine Culture And 08/21/2018 [facility] Urine SEE RESULT [address] [place] [address] [phone] Laboratory test 08/21/2018 [facility] Lipase 294 U/L High 11.0 - finding [address] 82[address]0 [place] [address] [phone] C Reactive Protein 2.58 mg/L N <8.01 HCG < 0.60 mIU/mL 2 Alcohol < 10 mg/dL N <10 CBC Auto 08/21/2018 [facility] White Blood 14.4 10^3/uL High 3.5-10.[address] [place] [address] [phone] Red Blood Count 4.58 10^6/uL N 4.00-5.40 [...] Blood Cells % 0 Laboratory test 08/21/2018 [facility] Lactic Acid 1.6 mmol/L N 0.5-2.0 3 finding [address] [place] [address] [phone] Comp Metabolic 08/21/2018 [facility] Sodium 133 mmol/L Low 135 -145 Panel [address] [place] [address] [phone] Potassium 3.8 mmol/L N 3.5-5.0 Chloride 105 [...] Egfr Non- 69.9 >60 Egfr 84.6 >60 4 Urinalysis Profile 08/21/2018 [facility] Urine Color Anais [address] [place] [address] [phone] Urine Appearance Cloudy Urine Specific [place] 1.027 N 1.010-1.030 Urine pH 6.0 N [...] Present Abnormal Absent Comp Metabolic Panel 08/06/2018 [facility] Sodium 144 mmol/L N 135-145 [address] [place] [address] [phone] Potassium 4.1 mmol/L N 3.5-5.0 Chloride 107 [...] Egfr Non- 87.4 >60 Egfr 105.8 >60 5 Laboratory test 08/06/2018 [facility] Magnesium 1.9 mg/dL N 1.9-2.[address] [place] [address] [phone] Urine Culture And 07/27/2018 [facility] Urine Culture SEE RESULT [address] [place] [address] [phone] Laboratory test 07/27/2018 [facility] Amylase 195 U/L High 29- [address] [place] [address] [phone] C Reactive Protein 16.08 mg/L High <8.01 HCG 0.80 mIU/mL 7 Lipase 1256 U/L High 11.0-82.0 Triglyceride 171 mg/dL 8 Laboratory test finding 07/27/2018 [facility] Alcohol < 10 mg/ dL N <[address] [place] [address] [phone] LDH 189 U/L N 140-271 Urinalysis Profile 07/27/2018 [facility] Urine Color Yellow [address] [place] [address] [phone] Urine Appearance Cloudy Urine Specific [place] 1.021 N 1.010-1.030 Urine pH 6.0 N [...] Present Abnormal Absent Comp Metabolic Panel 07/27/2018 [facility] Sodium 131 mmol/L Low 135-145 [address] [place] [address] [phone] Potassium 4.1 mmol/L N 3.5-5.0 Chloride 101 [...] Egfr Non- 77.8 >60 Egfr 94.1 >60 9 Co2 Carbon Dioxide 12 mmol/L Low 22-32 10 Anion Gap 18 mmol/L High 2-11 CBC Auto 07/27/2018 [facility] White Blood 17.8 10^3/uL High 3.5-10.[address] [place] [address] [phone] Red Blood Count 4.90 10^6/uL N 4.00-5.40 [...] Blood Cells % 0 Laboratory test 07/27/2018 [facility] Lactic Acid 1.0 mmol/L N 0.5-2.0 [address] [place] [address] [phone] Laboratory test 05/28/2018 [facility] Potassium 3.7 mmol/L N 3.5-5.[address] [place] [address] [phone] Magnesium 1.7 mg/dL Low 1.9-2.7 Ast Redraw 211 U/L High 13-39 Urine Culture And 05/28/2018 [facility] Urine Culture SEE RESULT [address] [place] [address] [phone] Urinalysis Profile 05/28/2018 [facility] Urine Color Yellow [address] [place] [address] [phone] Urine Appearance Clear Urine Specific [place] 1.024 N 1.010-1.030 Urine pH 6.0 N [...] Cell Present Abnormal Absent Lipid Profile 05/28/2018 [facility] Triglycerides 41 mg/dL 13 (Trig/Chol/HDL) [address] [place] [address] [phone] Cholesterol 79 mg/dL 14 HDL Cholesterol 46.5 mg/dL 15 LDL Cholesterol 24 mg/dL 16 CBC Auto 05/28/2018 [facility] White Blood 15.6 10^3/uL High 3.5-10.[address] [place] [address] [phone] Red Blood Count 4.49 10^6/uL N 4.00-5.40 [...] Blood Cells % 0 Laboratory test 05/28/2018 [facility] Lipase 393 U/L High 11.0 -82.[address] [place] [address] [phone] C Reactive Protein 142.58 mg/L High <8.01 HCG < 0.60 mIU/mL 17 Magnesium TNP mg/dL 1.9-2.7 18 Comp Metabolic Panel 05/28/2018 [facility] Sodium 133 mmol/L Low 135-[address] [place] [address] [phone] Chloride 102 mmol/L N 101-111 Co2 Carbon [...] Egfr Non- 105.0 >60 Egfr 127.0 >60 19 Potassium TNP mmol/L 3.5-5.0 20 Anion Gap 9 mmol/L N 2-11 Ast TNP U/L 13-39 21 Laboratory test 05/28/2018 [facility] Lactic Acid 0.6 mmol/L N 0.5-2.0 [address] [place] [address] [phone] Urine Culture And 05/26/2018 [facility] Urine SEE RESULT [address] [place] [address] [phone] Urinalysis Profile 05/26/2018 [facility] Urine Color Yellow [address] [place] [address] [phone] Urine Appearance Cloudy Urine Specific [place] 1.013 N 1.010-1.030 Urine pH 7.0 N [...] Cell Present Abnormal Absent Laboratory test 04/12/2018 [facility] Surgical SEE RESULT [address] [place] [address] [phone] Laboratory test 03/28/2018 [facility] Potassium 3.8 mmol/L N 3.5-5. finding [address] Redraw 0 [place] [address] [phone] Ast Redraw 39 U/L N 13-39 CBC Auto 03/28/2018 [facility] White Blood 11.6 10^3/uL High 3.5-10.[address] [place] [address] [phone] Red Blood Count 4.75 10^6/uL N 4.00-5.40 [...] Blood Cells % 0.1 Laboratory test 03/28/2018 [facility] Lactic Acid 1.0 mmol/L N 0.5-2.[address] [place] [address] [phone] Comp Metabolic 03/28/2018 [facility] Sodium 135 mmol/L N 135- [address] [place] [address] [phone] Chloride 100 mmol/L Low 101-111 Co2 Carbon [...] Egfr Non- 81.2 >60 Egfr 98.2 >60 26 Potassium TNP mmol/L 3.5-5.0 27 Anion Gap 12 mmol/L High 2-11 Ast TNP U/L 13-39 28 Laboratory test 03/28/2018 [facility] HCG < 0.60 mIU/ mL [address] [place] [address] [phone] Troponin-I (TnI) 0.14 ng/mL High <0.04 30 Lipase 1276 U/L High 11.0-82.0 Inr/Protime 03/28/2018 [facility] Inr 0.92 N 0.77-1.[address] [place] [address] [phone] Laboratory test 03/28/2018 [facility] Partial 27.5 seconds N 26.0-36.[address] [place] [address] [phone] Urinalysis 03/28/2018 [facility] Urine Color Yellow Profile [address] [place] [address] [phone] Urine Appearance Clear Urine Specific [place] 1.039 High 1.010-1.030 Urine pH 7.0 N [...] Cell Present Abnormal Absent Laboratory test 03/28/2018 [facility] Alcohol < 10 mg/dL N < [address] [place], [place] [phone] Urine Culture And 03/28/2018 [facility] Urine Culture SEE RESULT [address] [place] [address] [phone] Urinalysis Profile 01/14/2018 [facility] Urine Color Yellow [address] [place] [address] [phone] Urine Appearance Cloudy Urine Specific [place] 1.018 N 1.010-1.030 Urine pH 6.0 N [...] Epithelial Present Abnormal Absent CBC Auto 01/14/2018 [facility] White Blood 11.0 10^3/uL High 3.5-10.[address] [place] [address] [phone] Red Blood Count 4.72 10^6/uL N 4.00-5.40 [...] Cells % 0 Comp Metabolic Panel 01/14/2018 [facility] Sodium 134 mmol/L Low 135-[address] [place] [address] [phone] Potassium 3.8 mmol/L N 3.5-5.0 Chloride 100 [...] Egfr Non- 75.7 >60 Egfr 91.6 >60 32 Laboratory test 01/14/2018 [facility] HCG < 0.60 mIU/ mL [address] [place] [address] [phone] Lipase 3111 U/L High 11.0-82.0 Alcohol < 10 mg/dL N <10 Urine Culture And 01/14/2018 [facility] Urine Culture SEE RESULT [address] [place] [address] [phone] Ua Routine 11/05/2017 Facility Worker In House Ua Specific 1010 [place] Ua PH 6 Ua Color brown Ua Appera cloudy Ua WBC ++ Ua Protein + Ua Glucose ++ Ua Ketones neg. Ua Bilirubin neg. Ua Urobilinogen neg. Ua Nitrite neg. Ua Occult Blood about 250 Urine Culture And 11/05/2017 [facility] Urine Culture SEE RESULT [address] [place] [address] [phone] Urinalysis Profile 09/04/2017 [facility] Urine Color Yellow [address] [place] [address] [phone] Urine Appearance Cloudy Urine Specific [place] 1.021 N 1.010-1.030 Urine pH 6.0 N [...] Present Abnormal Absent Urine Culture And 09/04/2017 [facility] Urine Culture SEE RESULT [address] [place] [address] [phone] CBC Auto Diff 09/04/2017 [facility] White Blood 9.4 10^3/uL N 3.5-[address] Count 0.8 [place] [address] [phone] Red Blood Count 4.35 10^6/uL N 4.0-5.4 [...] Cells % 0 Comp Metabolic Panel 09/04/2017 [facility] Sodium 136 mmol/L N 133-145 [address] [place] [address] [phone] Potassium 3.8 mmol/L N 3.5-5.0 Chloride 105 [...] Egfr Non- 90.2 >60 Egfr 116.0 >60 37 Laboratory test 09/04/2017 [facility] Magnesium 2.1 mg/dL N 1.9-2.7 finding [address] [place] [address] [phone] Amylase 41 U/L N 29-103 Lipase 34 U/L N 11.0-82.0 CRP High Sensitivity 2.35 mg/L 38 Alcohol 54 mg/dL High <10 HCG < 0.60 mIU/mL 39 Troponin-I (TnI) 0.00 ng/mL <0.04 Laboratory test 06/24/2017 [facility] Lactic Acid 1.2 mmol/L N 0.5-2.0 [address] [place] [address] [phone] CBC Auto Diff 06/24/2017 [facility] White Blood 8.9 10^3/uL N 3.5-10.[address] [place] [address] [phone] Red Blood Count 4.72 10^6/uL N 4.0-5.4 [...] Cells % 0.2 Comp Metabolic Panel 06/24/2017 [facility] Sodium 133 mmol/L N 133-145 [address] [place] [address] [phone] Potassium 3.6 mmol/L N 3.5-5.0 Chloride 100 [...] Egfr Non- 68.6 >60 Egfr 88.2 >60 41 Laboratory test 06/24/2017 [facility] Magnesium 2.1 mg/dL N 1.9-2.7 finding [address] [place] [address] [phone] Lipase 541 U/L High 11.0-82.0 Creatine Kinase(CK) 25 U/L N 10-223 C Reactive Protein 1.94 mg/L N < 5.00 42 HCG < 0.60 mIU/mL 43 Lipid Profile 06/24/2017 [facility] Triglycerides 98 mg/dL 44 (Trig/Chol/HDL) [address] [place] [address] [phone] Cholesterol 166 mg/dL 45 HDL Cholesterol 49.4 mg/dL 46 LDL Cholesterol 97 mg/dL 47 Laboratory test 06/24/2017 [facility] Alcohol < 10 mg/dL N < 10 finding [address] [place] [address] [phone] Urinalysis Profile 06/24/2017 [facility] Urine Color Straw [address] [place] [address] [phone] Urine Appearance Cloudy Urine Specific [place] 1.002 Low 1.010-1.030 Urine pH 6.0 N 5-9 Urine Urobilinogen Negative Negative Urine Ketones Negative Negative Urine Protein Negative Negative Urine Leukocytes Negative Negative Urine Blood Negative Negative Urine Nitrite Negative Negative Urine Bilirubin Negative Negative Urine Glucose Negative Negative Laboratory test 06/12/2017 [facility] D Dimer 262 ng/mL High Less [address] [facility] Quantitative Than [address] [place] [address] [phone] Amylase 50 U/L N 29-103 Lipase < 10 U/L Low 11.0-82.0 C Reactive Protein 222.45 mg/L High < 5.00 49 Troponin-I (TnI) 0.03 ng/mL <0.04 Strep AB Anti 06/12/2017 [facility] Anti Streptolysin 121 IU/mL 0 - 530 Dnase B [address] [place] [address] [phone] Anti-DNase B <74 U/mL 0 - 300 50 Arterial Blood Gas 06/12/2017 [facility] Fio2 [address] [place] [address] [phone] PH Arterial 7.35 N 7.35-7.45 Pco2 Arterial 33 mmHg Low 35-45 Po2 Arterial 78 mmHg Low 80-100 O2 Saturation Arterial 97.2 % N 95-98 Base Excess Arterial -6.4 Low -2.0-2.0 51 Hco3 Arterial 19.8 mmol/L N 19-31 CBC Auto 06/12/2017 [facility] White Blood 14.7 10^3/uL High 3.5-10.[address] [place] [address] [phone] Red Blood Count 4.61 10^6/uL N 4.0-5.4 [...] Cells % 0 Comp Metabolic Panel 06/12/2017 [facility] Sodium 137 mmol/L N 133-[address] [place] [address] [phone] Potassium 4.2 mmol/L N 3.5-5.0 Chloride 108 [...] Egfr Non- 74.1 >60 Egfr 95.3 >60 52 Urine Culture And 06/08/2017 [facility] Urine Culture SEE RESULT [address] [place] [address] [phone] Comp Metabolic 06/08/2017 [facility] Sodium 134 mmol/L N 133- [address] [place] [address] [phone] Potassium 3.5 mmol/L N 3.5-5.0 Chloride 103 [...] Egfr Non- 84.0 >60 Egfr 108.1 >60 54 Urinalysis Profile 06/08/2017 [facility] Urine Color Red Abnormal [address] [place] [address] [phone] Urine Appearance Cloudy Urine pH TNP 5-9 55 Urine Urobilinogen TNP Negative 56 Urine Ketones TNP Negative 57 Urine Protein TNP Negative 58 Urine Leukocytes TNP Negative 59 Urine Blood TNP Negative 60 Urine Nitrite TNP Negative 61 Urine Bilirubin TNP Negative 62 Urine Glucose TNP Negative 63 Urine Specific [place] 1.005 Low 1.010-1.030 Urine White Blood Cell 3+(>20/hpf) Abnormal Absent Urine Red Blood Cell 3+(>10/hpf) Abnormal Absent Urine Bacteria 1+ Abnormal Absent Urine Squamous Epithelial Cell Present Abnormal Absent CBC Auto Diff 06/08/2017 [facility] White Blood 7.7 10^3/uL N 3.5-10.[address] [place] [address] [phone] Red Blood Count 4.69 10^6/uL N 4.0-5.4 [...] Cells % 0.1 Laboratory test finding 06/08/2017 [facility] Lipase 18 U/L N 11.0-82.0 [address] [place] [address] [phone] CRP High Sensitivity 3.72 mg/L 64 HCG < 0.60 mIU/mL 65 Comp Metabolic Panel 04/14/2017 [facility] Sodium 136 mmol/L N 133-145 [address] [place] [address] [phone] Potassium 3.9 mmol/L N 3.5-5.0 Chloride 102 [...] 76.1 N >60 Egfr 97.9 N >60 66 Laboratory test finding 04/14/2017 [facility] Amylase 40 U/L N 29-103 [address] [place] [address] [phone] Lipase 40 U/L N 11.0-82.0 Drug Abuse 20 04/13/2017 [facility] Urine Amphetamine Negative ng/mL N 67 Urine [address] [place] [address] [phone] Urine Barbiturates Negative ng/mL N 68 Urine Benzodiazepines Negative ng/mL N 69 Urine Cocaine Negative ng/mL N 70 Urine Phencyclidine Negative ng/mL N Cutoff: 25 Urine Tetrahydrocannabinol Negative ng/mL N Cutoff: 50 71 Creatinine, Urine 122.2 mg/dL N Specific [place] 1.004 N pH 7.4 N Oxidants Negative N 72 Adulterants Comment Normal N Codeine, Ur Not Detected ng/mL N Cutoff: 25 73 Bkojggi-8-ykvv-glucuronide, Ur Not Detected ng/mL N 74 Morphine, Ur Not Detected ng/mL N Cutoff: 25 75 Iqsspuqe-6-hyyb-glucuronide, U Not Detected ng/mL N 76 6-monoacetylmorphine, Ur Not Detected ng/mL N Cutoff: 25 77 Hydrocodone, Ur Not Detected ng/mL N Cutoff: 25 78 Norhydrocodone, Ur Not Detected ng/mL N Cutoff: 25 79 Dihydrocodeine, Ur Not Detected ng/mL N Cutoff: 25 80 Hydromorphone, Ur Not Detected ng/mL N Cutoff: 25 81 Ayzhkwfsdqmlp1fajpazwgzezrxih Not Detected ng/mL N 82 Oxycodone, Ur Present ng/mL N Cutoff: 25 83 Noroxycodone, Ur Present ng/mL N Cutoff: 25 84 Oxymorphone, Ur Not Detected ng/mL N Cutoff: 25 85 Qlnzqwxiyna-2-qulr-glucuronide Present ng/mL N 86 Noroxymorphone, Ur Present ng/mL N Cutoff: 25 87 Fentanyl, Ur Not Detected ng/mL N Cutoff: 2 88 Norfentanyl, Ur Not Detected ng/mL N Cutoff: 2 89 Meperidine, Ur Not Detected ng/mL N Cutoff: 25 90 Normeperidine, Ur Not Detected ng/mL N Cutoff: 25 91 Naloxone, Ur Not Detected ng/mL N Cutoff: 25 92 Qqiflzfz-0-jswq-glucuronide, U Not Detected ng/mL N 93 Methadone, Ur Not Detected ng/mL N Cutoff: 25 94 Eddp, Ur Not Detected ng/mL N Cutoff: 25 95 Propoxyphene, Ur Not Detected ng/mL N Cutoff: 25 96 Norpropoxyphene, Ur Not Detected ng/mL N Cutoff: 25 97 Tramadol, Ur Not Detected ng/mL N Cutoff: 25 98 O-desmethyltramadol, Ur Not Detected ng/mL N Cutoff: 25 99 Tapentadol, Ur Not Detected ng/mL N Cutoff: 25 100 N-desmethyltapentadol, Ur Not Detected ng/mL N Cutoff: 50 101 Mmfslzpoqf-vbmj-relznxurmbp, U Not Detected ng/mL N 102 Buprenorphine, Ur Not Detected ng/mL N Cutoff: 5 103 Norbuprenorphine, Ur Not Detected ng/mL N Cutoff: 5 104 Norbuprenorphine glucuronide Not Detected ng/mL N Cutoff: 20 105 Opioid Interpretation See Comment N 106 Laboratory test 04/10/2017 [facility] TSH (Thyroid 0.66 mcIU/mL N 0.34-5.[address] Stim Horm) [place], [place] [id number] [phone] Vitamin B12 197 pg/mL N 180-914 107 Glucose 101 mg/dL High 70-100 CBC Auto 12/15/2016 [facility] White Blood 13.8 10^3/uL High 3.5-10.[address] [place] [address] [phone] Red Blood Count 4.69 10^6/uL N 4.0-5.4 [...] % 0 N Comp Metabolic Panel 12/15/2016 [facility] Sodium 137 mmol/L N 133-[address] [place] [address] [phone] Potassium 3.6 mmol/L N 3.5-5.0 Chloride 104 [...] 98.5 N >60 Egfr 126.6 N >60 108 Laboratory test finding 12/15/2016 [facility] Lipase 32 U/L N 11.0-82.[address] [place] [address] [phone] Amylase 37 U/L N 29-103 1 SEE RESULT BELOW Name: ABBY CARLTON : [address]: Arley Mason MD Acct: [id number] Unit: [id number] AGE: 38 Location: ED Re08/21/18 SEX: F Status: DEP ER SPEC: [id number] EH: 08/21/[address]: Arley Mason MD REQ: [id number] RECD: 08/21/18 STATUS: LOIDA MCKNIGHT DR: Malina Blount TICKET CLERK _ SOURCE: URINE SPDESC: ORDERED: Urine Culture Procedure Result Reported Site Urine Culture Final 08/23/18- 1025 ML Mixed iban; possible contamination. Suggest resubmission. * ML - Main Lab . END OF REPORT DEPARTMENT OF PATHOLOGY, [address] [place] [address] Francisco Marques M.D. Director [facility] # [id number] 2 <5.0 Negative 5.0 - 25.0 Indeterminate (Repeat testing recommended after 72 hours) >25.0 Positive Perimenopausal women can display HCG levels of up to 20 mIU/mL 3 [facility] Severe Sepsis and Septic Shock Management Bundle Measure requires all lactic acids initially measuring >2.0 mmol/L be repeated. 4 Because ethnic data is not always readily [...] 15-29 5 Kidney failure <15 (or dialysis) 5 Because ethnic data is not always [...] 5 Kidney failure <15 (or dialysis) 6 SEE RESULT BELOW Name: ABBY CARLTON : 1980 Attend Dr: Clemente Finley MD Acct: [id number] Unit: [id number] AGE: 37 Location: [place] [address] Re07/27/18 SEX: F Status: ADM IN SPEC: [id number] EH: 07/27/18 [facility] DR: Arley Mason MD REQ: [id number] RECD: 07/27/18 STATUS: LOIDA MCKNIGHT DR: Malina Blount TICKET CLERK _ SOURCE: URINE SPDESC: ORDERED: Urine Culture Procedure Result Reported Site Urine Culture Final 07/29/18- 1001 ML No growth of clinically significant organisms * ML - Main Lab . END OF REPORT DEPARTMENT OF PATHOLOGY, [address] [place] [address] Francisco Marques M.D. Director [facility] # [id number] 7 <5.0 Negative 5.0 - 25.0 Indeterminate (Repeat testing recommended after 72 hours) >25.0 Positive Perimenopausal women can display HCG levels of up to 20 mIU/mL 8 Desirable: <150 Borderline High: 150-199 High: 200-499 Very High: >500 9 Because ethnic data is not always [...] 5 Kidney failure <15 (or dialysis) 10 Critical Result CO2:12 Called to [id number] at: 20:45:25 by:[id number] Read back by:[id number] 11 [facility] Severe Sepsis and Septic Shock Management Bundle Measure requires all lactic acids initially measuring >2.0 mmol/L be repeated. 12 SEE RESULT BELOW Name: ABBY CARLTON : [address]: Heydi So DO Acct: [id number] Unit: [id number] AGE: 37 Location: [facility] [id number] Re05/28/18 Dis: 05/29/18 SEX: F Status: DIS Jonathan SPEC: [id number] EH: 05/29/[address]: Solomon Rey MD REQ: [id number] RECD: 05/29/18 STATUS: LOIDA MCKNIGHT DR: Malina Blount TICKET CLERK _ SOURCE: URINE SPDESC: ORDERED: Urine Culture Procedure Result Reported Site Urine Culture Final 05/30/18- 1053 ML No growth of clinically significant organisms * ML - Main Lab . END OF REPORT DEPARTMENT OF PATHOLOGY, [address] [place] [address] Francisco Marques M.D. Director [facility] # [id number] 13 Desirable: <150 Borderline High: 150-199 High: 200-499 Very High: >500 14 Desirable: <200 Borderline High: 200-239 High: >239 15 Low: <40 Desirable: 40-60 High: >60 16 Desirable: <100 Near Optimal: 100-129 Borderline High: 130-159 High: 160-189 Very High: >189 17 <5.0 Negative 5.0 - 25.0 Indeterminate (Repeat testing recommended after 72 hours) >25.0 Positive Perimenopausal women can display HCG levels of up to 20 mIU/mL 18 Unable to report test result due to hemolysis. 19 Because ethnic data is not always readily [...] 15-29 5 Kidney failure <15 (or dialysis) 20 Specimen Hemolyzed. Result may not be valid. Unable to report test result due to hemolysis. Verbal to [id number] by [id number] at 1341 on 1341.Results read back accurately 21 Unable to report test result due to hemolysis. 22 Specimen hemolyzed. Result may not be valid. [place] Severe Sepsis and Septic Shock Management Bundle Measure requires all lactic acids initially measuring >2.0 mmol/L be repeated. 23 SEE RESULT BELOW Name: ABBY CARLTON : [address]: Abdelrahman Collazo MD Acct: [id number] Unit: [id number] AGE: 37 Location: ED Re05/26/18 SEX: F Status: DEP ER SPEC: [id number] EH: 05/26/18-SALVATORE NAVA DR: Alicia CRUZ REQ: [id number] RECD: 05/26/181504 STATUS: LOIDA MCKNIGHT DR: [facility] Malina Blount TICKET CLERK _ SOURCE: URINE SPDESC: ORDERED: Urine Culture Procedure Result Reported Site Urine Culture Final 05/28/18- 851 ML No growth of clinically significant organisms * ML - Main Lab . END OF REPORT DEPARTMENT OF PATHOLOGY, [address] [place] [address] Francisco Marques M.D. Director [facility] # [id number] 24 SEE RESULT BELOW Name: ABBY CARLTON : [address]: Slava Westbrook MD Acct: [id number] Unit: [id number] AGE: 37 Location: [place] Re04/12/18 SEX: F Status: YUNI MCGARRY SPEC: [id number] EH: 04/12/18-[address]: Slava Westbrook MD REQ: [id number] RECD: 10/ STATUS: SOUT _ ORDERED: LEVEL 1 FINAL DIAGNOSIS Foot, right, hardware removal: Foreign body (orthopedic hardware) (gross diagnosis) PRE-OPERATIVE DIAGNOSIS Hardware right foot GROSS DESCRIPTION The specimen is received fresh labeled, Hardware Right Foot, and consists of a 2.6 by up to 1.1 x 0.1 cm blue metallic plate with multiple ovoid holes. The following inscription is identified: [id number]. Received separately in the same container are five donnelly metallic threaded two partially threaded spline headed screws ranging from 2.0 x 0.2 cm to 3.2 x 0.2 cm. Per established hospital medical staff protocol, no tissue is submitted. Gross only. Signed by and Reported on: Lavern Hewitt MD 04/13/18 1142 END OF REPORT DEPARTMENT OF PATHOLOGY, [address] [place] [address] Francisco Marques M.D. Director [facility] # [id number] 25 [facility] Severe Sepsis and Septic Shock Management Bundle Measure requires all lactic acids initially measuring >2.0 mmol/L be repeated. 26 Because ethnic data is not always [...] 5 Kidney failure <15 (or dialysis) 27 Specimen Hemolyzed. Result may not be valid. Unable to report test result due to hemolysis. 28 Unable to report test result due to hemolysis. 29 <5.0 Negative 5.0 - 25.0 Indeterminate (Repeat testing recommended after 72 hours) >25.0 Positive Perimenopausal women can display HCG levels of up to 20 mIU/mL 30 Result TnIDx:0.14 Called to [id number] at: 22:53:12 by:[id number] Read back by: [id number] 31 SEE RESULT BELOW Name: ABBY CARLTON : [address]: Chasidy Ivy MD Acct: [id number] Unit: [id number] AGE: 37 Location: [place] [address]- Re03/29/18 SEX: F Status: ADM IN SPEC: [id number] EH: 03/29/[address] [facility] [address]: Abdelrahman Collazo MD REQ: [id number] RECD: 03/29/18 STATUS: LOIDA MCKNIGHT DR: Malina Blount TICKET CLERK _ SOURCE: URINE SPDESC: ORDERED: Urine Culture Procedure Result Reported Site Urine Culture Final 03/30/18811 ML No growth of clinically significant organisms * ML - Main Lab . END OF REPORT DEPARTMENT OF PATHOLOGY, [address] [place] [address] Francisco Marques M.D. Director [facility] # [id number] 32 Because ethnic data is not always [...] 5 Kidney failure <15 (or dialysis) 33 <5.0 Negative 5.0 - 25.0 Indeterminate (Repeat testing recommended after 72 hours) >25.0 Positive Perimenopausal women can display HCG levels of up to 20 mIU/mL 34 SEE RESULT BELOW Name: ABBY CARLTON : [address]: Chasidy Ivy MD Acct: [id number] Unit: [id number] AGE: 37 Location: [place] [address] Re01/15/18 SEX: F Status: ADM IN SPEC: [id number] EH: 01/14/[address] [facility] [address]: Larry Ricks MD REQ: [id number] RECD: 01/14/18416 STATUS: LOIDA MCKNIGHT DR: Malina Blount TICKET CLERK _ SOURCE: URINE SPDESC: ORDERED: Urine Culture Procedure Result Reported Site Urine Culture Final 01/16/18- 1141 ML No growth of clinically significant organisms * ML - Main Lab . END OF REPORT DEPARTMENT OF PATHOLOGY, [address] [place] [address] Francisco Marques M.D. Director [facility] # [id number] 36 SEE RESULT BELOW Name: ABBY CARLTON : [address]: Malina Blount NP Acct: [id number] Unit: [id number] AGE: 37 Location: [facility] Re11/05/17 SEX: F Status: REG REF SPEC: [id number] EH: 11/05/17-[address]: Malina Blount NP REQ: [id number] RECD: 11/05/17 STATUS: COMP _ SOURCE: URINE SPDESC: ORDERED: Urine Culture COMMENTS: [id number] Urine Source: Clean Catch Procedure Result Reported Site Urine Culture Final 11/07/17- 0843 ML Organism 1 ESCHERICHIA COLI [place] Count >100,000 (Many) CFU/ML 1. ESCHERICHIA COLI [...] . END OF REPORT DEPARTMENT OF PATHOLOGY, [address] [place] [address] Francisco Marques M.D. Director [facility] # [id number] 37 SEE RESULT BELOW Name: ABBY CARLTON : [address]: Jose Lorenzo MD Acct: [id number] Unit: [id number] AGE: 37 Location: ED Re09/04/17 SEX: F Status: DEP ER SPEC: [id number] EH: 09/04/[address]: Lavern CRUZ REQ: [id number] RECD: 09/04/17 STATUS: LOIDA MCKNIGHT DR: Leila Blount TICKET CLERK _ SOURCE: URINE SPDESC: ORDERED: Urine Culture Procedure Result Reported Site Urine Culture Final 09/06/17- 1010 ML Mixed iban; possible contamination. Suggest resubmission. * ML - Main Lab . END OF REPORT DEPARTMENT OF PATHOLOGY, [address] [place] [address] Francisco Marques M.D. Director [facility] # [id number] 37 Because ethnic data is not always [...] 5 Kidney failure <15 (or dialysis) 38 Low risk: <1.00 Average risk: 1.00-3.00 High risk: >3.00 39 <5.0 Negative 5.0 - 25.0 Indeterminate (Repeat testing recommended after 72 hours) >25.0 Positive Perimenopausal women can display HCG levels of up to 20 mIU/mL 40 [facility] Severe Sepsis and Septic Shock Management Bundle Measure requires all lactic acids initially measuring >2.0 mmol/L be repeated. 41 Because ethnic data is not always [...] 5 Kidney failure <15 (or dialysis) 42 Acute inflammation: >10.00 43 <5.0 Negative 5.0 - 25.0 Indeterminate (Repeat testing recommended after 72 hours) >25.0 Positive Perimenopausal women can display HCG levels of up to 20 mIU/mL 44 Desirable: <150 Borderline High: 150-199 High: 200-499 Very High: >500 45 Desirable: <200 Borderline High: 200-239 High: >239 46 Low: <40 Desirable: 40-60 High: >60 47 Desirable: <100 Near Optimal: 100-129 Borderline High: 130-159 High: 160-189 Very High: >189 48 Please note: The following may produce a false positive D Dimer test: - Rheumatoid factor greater than 60 IU/ml - Plasma hemoglobin greater than 0.05 gm/dl - Bilirubin greater than 50 mg/dl - Lipids greater than 1000 mg/dl - FDP greater than 20 ug/ml 49 Acute inflammation: >10.00 50 Test Performed by: [address] [address] 51 Reference ranges based on room air. 52 Because ethnic data is not always readily [...] 15-29 5 Kidney failure <15 (or dialysis) 53 SEE RESULT BELOW Name: ABBY CARLTON : [address]: Jose Lorenzo MD Acct: [id number] Unit: [id number] AGE: 36 Location: ED Re06/08/17 SEX: F Status: DEP ER SPEC: [id number] EH: 06/08/[address]: Lavern CRUZ REQ: [id number] RECD: 06/08/17 STATUS: LOIDA MCKNIGHT DR: [facility] Malina Blount TICKET CLERK _ SOURCE: URINE SPDESC: ORDERED: Urine Culture Procedure Result Reported Site Urine Culture Final 06/10/17- 0815 ML No growth of clinically significant organisms * ML - MAIN LAB (PSC1) . END OF REPORT * ML=Testing performed at Main Lab DEPARTMENT OF PATHOLOGY, [address] [place] [address] Francisco Marques M.D. Director [facility] # [id number] 54 Because ethnic data is not always readily [...] 15-29 5 Kidney failure <15 (or dialysis) 55 Unable to evaluate urinalysis dipstick results due to interfering color. Notified [id number] 1835 06/08/17. 56 Unable to evaluate urinalysis dipstick results due to interfering color. Notified [id number] 1835 06/08/17. 57 Unable to evaluate urinalysis dipstick results due to interfering color. Notified [id number] 1835 06/08/17. 58 Unable to evaluate urinalysis dipstick results due to interfering color. Notified [id number] 1835 06/08/17. 59 Unable to evaluate urinalysis dipstick results due to interfering color. Notified [id number] 1835 06/08/17. 60 Unable to evaluate urinalysis dipstick results due to interfering color. Notified [id number] 1835 06/08/17. 61 Unable to evaluate urinalysis dipstick results due to interfering color. Notified [id number] 1835 06/08/17. 62 Unable to evaluate urinalysis dipstick results due to interfering color. Notified [id number] 1835 06/08/17. 63 Unable to evaluate urinalysis dipstick results due to interfering color. Notified [id number] 1835 06/08/17. 64 Low risk: <1.00 Average risk: 1.00-3.00 High risk: >3.00 65 <5.0 Negative 5.0 - 25.0 Indeterminate (Repeat testing recommended after 72 hours) >25.0 Positive Perimenopausal women can display HCG levels of up to 20 mIU/mL 66 Because ethnic data is not always readily [...] 15-29 5 Kidney failure <15 (or dialysis) 67 REFERENCE VALUE Cutoff: 500 68 REFERENCE VALUE Cutoff: 200 69 REFERENCE VALUE Cutoff: 100 70 REFERENCE VALUE Cutoff: 150 71 ADDITIONAL INFORMATION This report is intended for use in clinical monitoring or management of patients. It is not intended for use in employment-related testing. 72 REFERENCE VALUE Cutoff: 200 mg/L 73 Tylenol 3 74 Metabolite of codeine REFERENCE VALUE Cutoff: 100 75 Coco Schmid, Contin; Also a minor metabolite (10%) of codeine and can be seen in low concentrations (<2,000 ng/mL) with poppy seed ingestion. 76 Metabolite of morphine REFERENCE VALUE Cutoff: 100 77 Metabolite of heroin 78 Lortab, Bee, Vicodin; Also a very minor metabolite of codeine and impurity (<1%) of oxycodone. 79 Metabolite of hydrocodone 80 Metabolite of hydrocodone 81 Dilaudid, Exalgo; Also a metabolite of hydrocodone and a minor (<5%) metabolite of morphine. 82 Metabolite of hydromorphone REFERENCE VALUE Cutoff: 100 83 Endocet, Percocet, Oxycontin 84 Metabolite of oxycodone 85 Numorphan, Opana; Also a metabolite of oxycodone. 86 Metabolite of oxymorphone REFERENCE VALUE Cutoff: 100 87 Metabolite of oxymorphone 88 Actiq, Duragesic, Fentora 89 Metabolite of fentanyl 90 Demerol 91 Metabolite of meperidine 92 Narcan 93 Metabolite of naloxone REFERENCE VALUE Cutoff: 100 94 Dolophine 95 Metabolite of methadone 96 Darvon, Darvocet 97 Metabolite of propoxyphene 98 Tradol, Ultram, Ultracet 99 Metabolite of tramadol 10 Nucynta 0 10 Metabolite of tapentadol 1 10 Metabolite of tapentadol 2 REFERENCE VALUE Cutoff: 100 10 Buprenex, Suboxone 3 10 Metabolite of buprenorphine 4 10 Metabolite of buprenorphine 5 10 Test detected the presence of oxycodone and several 6 metabolites (noroxycodone, noroxymorphone, and foapamzgvfc-2-pkqk-glucuronide). Suspect use of oxycodone or possibly oxycodone and oxymorphone within the past three days. ADDITIONAL INFORMATION This test was developed and its performance characteristics determined by [facility] in a manner consistent with CLIA requirements. This test has not been cleared or approved by the U.S. Food and Drug Administration. Test Performed by: [facility] [address] [place] [address] 10 Normal Range 180 to 914 7 Indeterminate Range 145 to 180 Deficient Range <145 10 Because ethnic data is not always readily available, 8 this report includes an eGFR for both [...] dialysis) Procedures Date Code Description Status 04/12/2018 22953 Implant Nerve End Into Bone Or Muscle Completed 04/12/2018 78295 Excision Neuroma, Cutaneous Nerve Completed 04/12/2018 57967 Removal Implant Deep Wire,Screw Nail,Abdiel Or Plate Completed 04/12/2018 01500 Removal Implant Deep Wire,Screw Nail,Abdiel Or Plate Completed 03/29/2018 21694 ECHO Transthorasic Realtime 2D W Doppler & Color Flow Hosp Completed 02/18/2018 10941 Injection,Anesthetic Agent, Other Peripheral Nerve Branch Completed 01/20/2018 21301 Endoscopy Upper GI Biopsy Completed 10/14/2017 20941 Short Leg Cast Completed 10/06/2017 96310 Short Leg Cast Completed 10/01/2017 50065 FX Tarsal Care Completed 10/01/2017 78882 FX Tarsal Care Completed 10/01/2017 79350 FX Metatarsal Care Completed 10/01/2017 10354 FX Metatarsal Care Completed 10/01/2017 17371 Open TX Metatarsal FX,Incl Intl Fixation When Performed Completed 10/01/2017 74430 Dislocation Tarsometatarsal JT W/Wo Fixation Open TX Completed 10/01/2017 95414 Dislocation Tarsometatarsal JT W/Wo Fixation Open TX Completed 10/01/2017 05960 Dislocation Tarsometatarsal JT W/Wo Fixation Open TX Completed 10/01/2017 59547 Dislocation Tarsometatarsal JT W/Wo Fixation Open TX Completed 06/12/2017 48729 ECHO Transthorasic Realtime 2D W Doppler & Color Flow Hosp Completed 06/12/2017 52487 EKG, Interpretation Only Completed Encounters Type Date Location Provider Dx Diagnosis Office Visit 08/06/2018 [facility] Internal Malina Blount K85.20 Alcohol induced 3:20p Medicine - N.P. acute pancreatitis [place] without necrosis or infct R19.7 Diarrhea, unspecified F33.9 Major depressive disorder, recurrent, unspecified Office Visit 07/29/2018 [facility] Samuel K85.20 Alcohol induced 9:35a Assoc,julia Finley M.D. 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 acute pancreatitis [place] without necrosis or infct K21.9 Gastro-esophageal reflux disease without esophagitis Office Visit 05/29/2018 9:55a [facility] M54.9 Dorsalgia, Assoc,ANTHONY Moe unspecified Hospitalists J45.20 Mild intermittent asthma, uncomplicated K85.20 Alcohol induced acute pancreatitis without necrosis or infct Office Visit 05/28/2018 [facility] K85.20 Alcohol induced 9:54a Assoc,ANTHONY Moe acute pancreatitis Hospitalists without necrosis or infct K70.10 Alcoholic hepatitis without ascites J45.909 Unspecified asthma, uncomplicated F41.9 Anxiety disorder, unspecified Office Visit 04/01/2018 [facility] Glenda K85.20 Alcohol induced 11:13a Assocjulia D.O. acute pancreatitis Hospitalists without necrosis or infct F41.9 Anxiety disorder, unspecified F10.19 Alcohol abuse with unspecified alcohol-induced disorder M54.9 Dorsalgia, unspecified Office Visit 03/31/2018 [facility] Chasidy Ivy, K85.20 Alcohol induced 11:13a julia Denson M.D. acute Hospitalists pancreatitis without necrosis or infct E16.2 Hypoglycemia, unspecified F10.19 Alcohol abuse with unspecified alcohol-induced disorder F41.9 Anxiety disorder, unspecified M54.9 Dorsalgia, unspecified Office Visit 03/30/2018 [facility] Chasidy Ivy, K85.20 Alcohol induced 11:12a julia Denson M.D. acute Hospitalists pancreatitis without necrosis or infct F10.19 Alcohol abuse with unspecified alcohol-induced disorder E16.2 Hypoglycemia, unspecified F41.9 Anxiety disorder, unspecified Office Visit 03/29/2018 [facility] Chasidy Ivy, K85.20 Alcohol induced 11:11a julia Denson M.D. acute Hospitalists pancreatitis without necrosis or infct E16.2 Hypoglycemia, unspecified F10.19 Alcohol abuse with unspecified alcohol-induced disorder F41.9 Anxiety disorder, unspecified Office Visit 03/23/2018 10:00a Orthopedic Slava Westbrook, M79.671 Pain in right Services Of [facility] Felicita foot G57.91 Unspecified mononeuropathy of right lower limb Office Visit 03/12/2018 2:00p [facility] Internal Malina Blount, R03.0 Elevated Medicine - [...] Pain in right foot Office Visit 01/21/2018 [facility] Edmundo Martin K85.20 Alcohol induced 10:35a Assoc,julia Michael MD acute Hospitalists pancreatitis without necrosis or infct K29.70 Gastritis, unspecified, without bleeding F10.10 Alcohol abuse, uncomplicated F17.210 Nicotine dependence, cigarettes, uncomplicated [facility] Epigastric pain Assoc,julia Finley M.D. Hospitalists K85.20 Alcohol induced acute pancreatitis without necrosis or infct F10.10 Alcohol abuse, uncomplicated Z72.0 Tobacco use Office Visit 01/20/2018 [facility] Gastroenterology Sangeeta R10.13 Epigastric pain 7:00a MD Maksim K85.20 Alcohol induced acute pancreatitis without necrosis or infct K21.9 Gastro-esophageal reflux disease without esophagitis Office Visit 01/19/2018 [facility] K85.20 Alcohol induced 10:34a Assoc,julia Finley M.D. acute pancreatitis Hospitalists without necrosis or infct F10.10 Alcohol abuse, uncomplicated R10.13 Epigastric pain Z72.0 Tobacco use Office Visit 01/18/2018 [facility] K85.20 Alcohol induced 10:34a Assoc,julia Finley M.D. acute pancreatitis Hospitalists without necrosis or infct R10.13 Epigastric pain F10.10 Alcohol abuse, uncomplicated Office Visit 01/17/2018 [facility] R10.13 Epigastric pain 10:34a Assoc,julia Lancaster NP Hospitalists K85.20 Alcohol induced acute pancreatitis without necrosis or infct F10.10 Alcohol abuse, uncomplicated Office Visit 01/16/2018 [facility] R10.13 Epigastric pain 10:33a Assoc,julia Lancaster NP Hospitalists K85.20 Alcohol induced acute pancreatitis without necrosis or infct F10.10 Alcohol abuse, uncomplicated Office Visit 01/15/2018 10:33a [facility] Glenda R10.13 Epigastric pain Assoc,julia Melton D.O. Hospitalists K85.20 Alcohol induced acute pancreatitis without necrosis or infct Office Visit 11/05/2017 11:20a [facility] Internal Malina Blount, Z00.00 Encntr for Medicine - N.P. general adult [place] medical exam w/o abnormal findings F33.9 Major depressive disorder, recurrent, unspecified J45.20 Mild intermittent asthma, uncomplicated F17.210 Nicotine dependence, cigarettes, uncomplicated N39.0 Urinary tract infection, site not specified K21.9 Gastro-esophageal reflux disease without esophagitis S93.324D Dislocation of tarsometatarsal joint of right foot, subs Office Visit 09/28/2017 Orthopedic Caseynaty Yu, S92.334A Nondisp fx of 3:45p Services Of third emilyal [facility] bone, right foot, init S92.344A Nondisp fx of fourth metatarsal bone, right foot, init S93.324A Dislocation of tarsometatarsal joint of right foot, init Office Visit 09/22/2017 Orthopedic Caseynaty Yu, S92.334A Nondisp fx of 2:00p Services Of third metatarsal C.M.A. bone, right foot, init S92.344A Nondisp fx of fourth metatarsal bone, right foot, init Office Visit 09/10/2017 9:00a [facility] Internal Malina Blount, F33.9 Major depressive Medicine - N.P. disorder, [place] recurrent, unspecified G89.4 Chronic pain syndrome Office Visit 07/29/2017 9:50a [facility] Internal Anastasia M79.644 Pain in right Medicine - Felicita Cadet finger(s) Hailesaint clair Z79.899 Other snf (current) drug therapy Office Visit 06/25/2017 9:00a [facility] Internal Hernandez Casper, J18.9 Pneumonia, Medicine - TICKET CLERK unspecified [place] organism M54.9 Dorsalgia, unspecified R79.9 Abnormal finding of blood chemistry, unspecified R10.9 Unspecified abdominal pain Office Visit 06/24/2017 10:14a [facility] Norma Eller, K86.1 Other chronic Assoc,pc N.P. pancreatitis Hospitalists Office Visit 06/13/2017 7:16a [facility] Norma Eller, J18.9 Pneumonia, Assoc,pc N.P. unspecified Hospitalists organism J45.20 Mild intermittent asthma, uncomplicated Office Visit 06/12/2017 10:34a Pulmonology And Lazara R06.02 Shortness of Sleep Services Of MD Moses breath [facility] N20.1 Calculus of ureter R00.0 Tachycardia, unspecified R10.12 Left upper quadrant pain Office Visit 06/03/2017 11:20a [facility] Internal Mitesh Peraza R07.89 Other chest pain Medicine - Felicita Kimball Office Visit 04/13/2017 4:00p [facility] Internal Malina Blount, K86.0 Alcohol- induced Medicine - N.P. chronic [place] pancreatitis M54.5 Low back pain Office Visit 03/26/2017 10:40a [facility] Internal Malina Blount M54.5 Low back pain Medicine - N.P. [place] F41.1 Generalized anxiety disorder K85.20 Alcohol induced acute pancreatitis without necrosis or infct M79.2 Neuralgia and neuritis, unspecified Office Visit 03/08/2017 [facility] K85.20 Alcohol induced 9:33a Assoc,julia Larry, VIMAL acute Hospitalists pancreatitis without necrosis or infct M54.5 Low back pain J45.20 Mild intermittent asthma, uncomplicated G89.29 Other chronic pain Office Visit 03/07/2017 [facility] K85.20 Alcohol induced 9:33a Assoc,julia Larry, VIMAL acute Hospitalists pancreatitis without necrosis or infct M54.5 Low back pain J45.20 Mild intermittent asthma, uncomplicated G89.29 Other chronic pain Office Visit 03/06/2017 [facility] [facility] Raul Sheht K85.20 Alcohol induced 9:32a Asschandler,julia ELLINGTON M.D. acute Hospitalists pancreatitis without necrosis or infct M54.5 Low back pain J45.20 Mild intermittent asthma, uncomplicated G89.29 Other chronic pain Office Visit 02/27/2017 4:20p [facility] Internal Malina Varn, M54.5 Low back pain Medicine - N.P. [place] J45.901 Unspecified asthma with (acute) exacerbation Office Visit 01/27/2017 2:20p [facility] Internal Malina Varn, R11.2 Nausea with Medicine - N.P. vomiting, [place] unspecified M54.5 Low back pain F41.1 Generalized anxiety disorder G47.00 Insomnia, unspecified B35.3 Tinea pedis Office Visit 12/24/2016 3:00p [facility] Internal Malina Mine, K85.90 Acute pancreatitis Medicine - N.P. without necrosis [place] or infection, unsp R11.2 Nausea with vomiting, unspecified M54.5 Low back pain Office Visit 12/10/2016 4:00p [facility] Internal Malina Blount, J18.9 Pneumonia , Medicine - N.P. unspecified [place] organism K85.90 Acute pancreatitis without necrosis or infection, unsp R11.2 Nausea with vomiting, unspecified Office Visit 11/22/2016 [facility] Chasidy Ivy, J18.9 Pneumonia, 8:29a Assjulia arteaga M.D. unspecified Hospitalists organism K85.90 Acute pancreatitis without necrosis or infection, unsp Office Visit 11/21/2016 [facility] Chasidy Ivy, J18.9 Pneumonia, 8:29a julia Denson M.D. unspecified Hospitalists organism M54.5 Low back pain K85.90 Acute pancreatitis without necrosis or infection, unsp J45.20 Mild intermittent asthma, uncomplicated Office Visit 11/20/2016 8:28a [facility] Barbara J18.9 Pneumonia, Assoc,julia Issa M.D. unspecified Hospitalists organism K85.90 Acute pancreatitis without necrosis or infection, unsp Office Visit 11/19/2016 8:27a [facility] Barbara J18.9 Pneumonia, Assoc,julia Issa M.D. unspecified Hospitalists organism M54.5 Low back pain K85.90 Acute pancreatitis without necrosis or infection, unsp Office Visit 11/18/2016 [facility] Raul Sheth J18.9 Pneumonia, 8:26a Assjulia arteaga II, M.D. unspecified Hospitalists organism M54.5 Low back pain K85.90 Acute pancreatitis without necrosis or infection, unsp J45.20 Mild intermittent asthma, uncomplicated Office Visit 11/15/2016 [facility] Yves K85.20 Alcohol induced 10:39a Assjulia arteaga M.D. acute Hospitalists pancreatitis without necrosis or infct N30.00 Acute cystitis without hematuria M54.5 Low back pain F10.231 Alcohol dependence with withdrawal delirium Office Visit 11/14/2016 [facility] Miller Garner K85.20 Alcohol induced 2:34p Assocjulia D.O. acute pancreatitis Hospitalists without necrosis or infct Office Visit 11/13/2016 [facility] Miller Garner K85.20 Alcohol induced 2:33p Assoc,julia Dalton D.O. acute pancreatitis Hospitalists without necrosis or infct N30.00 Acute cystitis without hematuria F10.231 Alcohol dependence with withdrawal delirium Office Visit 11/12/2016 [facility] Miller Garner K85.20 Alcohol induced 2:32p Assoc,julia Dalton D.O. acute pancreatitis Hospitalists without necrosis or infct F10.231 Alcohol dependence with withdrawal delirium Office [facility] K85.20 Alcohol induced 10:38a Assjulia arteaga M.D. acute pancreatitis Hospitalists without necrosis or infct M54.5 Low back pain F10.231 Alcohol dependence with withdrawal delirium Office Visit 11/11/2016 [facility] K85.20 Alcohol induced 10:38a julia Denson M.D. acute pancreatitis Hospitalists without necrosis or infct M54.5 Low back pain F10.10 Alcohol abuse, uncomplicated Office Visit 11/10/2016 [facility] Navin K85.20 Alcohol induced 10:35a Assoc,julia Hawthorne N.PCarmina acute Hospitalists pancreatitis without necrosis or infct M54.5 Low back pain F10.10 Alcohol abuse, uncomplicated Office Visit 05/05/2013 10:00a Orthopedic Corinna Lares, 354.0 [facility] 727.42 Ganglion Tendon Sheath Plan of Treatment Future Appointment(s):09/21/2018 2:20 pm - Malina Blount N.P. at [facility] Internal Medicine [facility]08/27/2018 - Hernandez Casper NPK85.20 Alcohol induced acute pancreatitis without necrosis or infecNew Labs:CBC Auto Diff, Ordered: Lipase, Ordered: 08/27/18Comp Metabolic Panel, Ordered: 08/27/18Comments:It is very important that you continue to abstain from alcohol use. This is a known trigger for yourpancreatitis. I am referring you to GI for further evaluation. Have the repeat bloodwork done soon.Referral:Killian Delvalle M.D., AoxjbfaiywgybcveM57.0 Urinary tract infection, site not specifiedNew Medication: Macrobid 100 mg - one capsule twice a day x 7 daysComments:I am prescribing an antibiotic based on your symptoms and urinalysis. If your urine culture indicates a change in antibiotics is warranted we will let you know.Drink plenty of fluids and avoid bladder irritants such as spicy foods, caffeine and alcohol. Please call if there is no improvement or worsening of symptoms.
[2018-09-24] MEDS ORDERED: NS 0.9% 1000 ML** 1,000 ML IV ONE (17:58)
[2018-09-24] MEDS ORDERED: Piperacillin/Tazobac ADVAN(*) 3.375 GM in NS 0.9% 100 ML* 100 ML IVPB ONE ×2 (18:06→21:42)
[2018-09-24 18:08] LABS: ABS Basophils 0 10^3/ul (0-0.2); ABS Eosinophils 0.1 10^3/ul (0-0.6); ABS Lymphocytes 0.8 10^3/ul (1.0-4.8); ABS Monocytes 0.8 10^3/ul (0-0.8); ABS Neutrophils 17.1 10^3/ul (1.5-7.7); ABS Nucleated RBC 0 10^3/ul; Eosinophil % 0.3 %; Hematocrit 40 % (33-41); Hemoglobin 13.3 g/dL (12.0-16.0); Lymphocyte % 4.1 %; Mean Corpuscular HGB Conc 33 g/dL (31-36); Mean Corpuscular Hemoglobin 32 pg (27-31); Mean Corpuscular Volume 95 fL (80-97); Mean Platelet Volume 8.3 fL (7.4-10.4); Nucleated Red Blood Cells % 0; Platelet Count 201 10^3/uL (150-450); Red Blood Count 4.21 10^6 /uL (3.70-4.87); Red Cell Distribution Width 15 % (10.5-15); White Blood Count 18.8 10^3/uL (3.5-10.8)
[2018-09-24 18:31] LABS: ALT 10 U/L (7-52); AST 41 U/L (13-39); Albumin 3.3 g/dL (3.2-5.2); Albumin/Globulin Ratio 1.1 (1-3); Alkaline Phosphatase 121 U/L (34-104); Anion Gap 8 mmol/L (2-11); BUN/Creatinine Ratio 12.2 (8-20); Blood Urea Nitrogen 9 mg/dL (6-24); CO2 Carbon Dioxide 21 mmol/L (22-32); Calcium 8.4 mg/dL (8.6-10.3); Chloride 108 mmol/L (101-111); EGFR African American 106.9 (>60); EGFR Non-African American 88.3 (>60); Globulin 2.9 g/dL (2-4); Glucose 116 mg/dL (70-100); Potassium 3.8 mmol/L (3.5-5.0); Sodium 137 mmol/L (135-145); Total Protein 6.2 g/dL (6.4-8.9); Troponin I 0.02 ng/mL (<0.04)
[2018-09-24 18:35] LABS: HCG Pregnancy < 0.60 mIU/mL
[2018-09-24 18:37] LABS: INR 0.99 (0.77-1.02)
[2018-09-24] MEDS ORDERED: Iohexol 350* (CONTRAST) 500 ML MDV IV ONE (19:05)
--- NOTE | 2018-09-24 20:43 | ED ---
Shortness of Breath - HPI Summary HPI Summary: Patient complains of shortness of breath starting this morning. History of cough and chest pain 1 week, and/V 1 week. CP described as squeezing, constant, sternal. Recent diagnosis of thrush after taking antibiotics for UTI. Admitted in June for pancreatitis. Denies fever, diarrhea, abdominal pain, change in urine, change in BM. Medical history is chronic pancreatitis, chronic diarrhea. - History of Current Complaint Chief Complaint: EDShortnessOfBreath Time Seen by Provider: 09/24/18 17:41 Hx Obtained From: Patient Onset/Duration: Gradual Onset Current Severity: Moderate Dyspnea At: Exertion Aggrevating Factors: Movement, Deep Breaths Alleviating Factors: Nothing Associated Signs & Symptoms: Cough (Nonproductive), Chest Pain w/Cough - Allergy/Home Medications Allergies/Adverse Reactions: Allergies Allergy/AdvReac Type Severity Reaction Status Date / Time azithromycin Allergy Severe Difficulty Verified 08/21/18 20:56 Breathing cephalexin [From Keflex] Allergy Severe Palpitation Verified 08/21/18 20:56 s ciprofloxacin Allergy Severe Difficulty Verified 08/21/18 20:56 Breathing codeine Allergy Severe Hives Verified 08/21/18 20:56 lorazepam Allergy Severe Altered Verified 08/21/18 20:56 Mental Status acetaminophen Allergy Intermediate Nausea And Verified 08/21/18 20:56 Vomiting Home Medications: Home Medications Albuterol HFA INHALER* [Ventolin HFA Inhaler*] 1 puff INH SEE INSTRUCTIONS 09/24 [History Confirmed 09/24/18] Nystatin susp 16 oz 1 dose PO SEE INSTRUCTIONS 09/24/18 [History Confirmed 09/24] PMH/Surg Hx/FS Hx/Imm Hx Endocrine/Hematology History: Reports: Hx Anemia - Hx OF YEARS AGO Denies: Hx Diabetes Cardiovascular History: Denies: Hx Hypercholesterolemia, Hx Hypertension, Other Cardiovascular Problems/Disorders Respiratory History: Reports: Hx Asthma - has an inhaler-doesn't use often Denies: Other Respiratory Problems/Disorders GI History: Reports: Hx Gastroesophageal Reflux Disease, Other GI Disorders - PANCREATITIS last admission 03/29/18-04/01/18 History: Reports: Hx Kidney Infection, Hx Kidney Stones, Other Problems/ Disorders - Urethral stent 2000-was at the time too much pressure on urethra Denies: Hx Renal Disease Musculoskeletal History: Reports: Hx Back Problems, Other Musculoskeletal History - right foot fracture repair-hardware in right foot Sensory History: Denies: Hx Contacts or Glasses, Hx Deafness, Hx Hearing Aid Opthamlomology History: Denies: Hx Contacts or Glasses Neurological History: Reports: Hx Headaches Denies: Other Neuro Impairments/Disorders Psychiatric History: Reports: Hx Anxiety - ON DAILY MEDS, Hx Depression - Hx OF NONE NOW, Hx Panic Disorder, Hx Post Traumatic Stress Disorder - No formal dx , Hx Inpatient Treatment, Hx Community Mental Health Tx, Hx Substance Abuse - alcohol Denies: Hx Attention Deficit Hyperactivity Disorder, Hx Eating Disorder, Hx Schizophrenia, Hx Bipolar Disorder, Hx Suicide Attempt, Hx of Violent Episodes Against Others - Surgical History Surgery Procedure, Year, and Place: 2000 Urethral stenting with [facility]- epidural. Screws in right foot Hx Anesthesia Reactions: No - Immunization History Date of Tetanus Vaccine: UTD Date of Influenza Vaccine: 03/2017 Infectious Disease History: No Infectious Disease History: Denies: Hx Clostridium Difficile, Hx Hepatitis, Hx Human Immunodeficiency Virus (HIV), Hx of Known/Suspected MRSA, Hx Shingles, Hx Tuberculosis, History Other Infectious Disease, Traveled Outside the [place] in Last 30 Days - Family History Known Family History: Positive: Other - cervical CA, brain tumor - Social History Alcohol Use: Weekly Alcohol Amount: ETOH use x 4 days ago Hx Substance Use: No Substance Use Type: Reports: None 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 Use 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 Hx Tobacco Use: Yes Smoking Status (MU): Heavy Every Day Tobacco Smoker Type: Cigarettes Amount Used/How Often: 1 ppd 24 years Length of Time of Smoking/Using Tobacco: 20 YRS Have You Smoked in the Last Year: Yes Review of Systems Constitutional: Negative Eyes: Negative ENT: Negative Positive: Chest Pain Positive: Shortness Of Breath, Cough Positive: Vomiting, Nausea Genitourinary: Negative Musculoskeletal: Negative Skin: Negative Neurological: Negative Psychological: Normal All Other Systems Reviewed And Are Negative: Yes Physical Exam Triage Information Reviewed: Yes Vital Signs On Initial Exam: Initial Vitals Temp Pulse Resp BP Pulse Ox 98.8 F 109 21 120/89 82 09/24/18 17:22 09/24/18 17:22 09/24/18 17:22 09/24/18 17:22 09/24/18 17:22 Vital Signs Reviewed: Yes Appearance: Positive: Well-Appearing Skin: Positive: Warm Head/Face: Positive: Normal Head/Face Inspection Eyes: Positive: Normal Neck: Positive: Supple Respiratory/Lung Sounds: Positive: Breath Sounds Present Cardiovascular: Positive: Normal Abdomen Description: Positive: Nontender Musculoskeletal: Positive: Normal Neurological: Positive: Normal Psychiatric: Positive: Normal AVPU Assessment: Alert - [place] Coma Scale Best Eye Response: 4 - Spontaneous Best Motor Response: 6 - Obeys Commands Best Verbal Response: 5 - Oriented Coma Scale Total: 15 Diagnostics - Vital Signs Vital Signs Temp Pulse Resp BP Pulse Ox 09/24/18 19:00 109 14 100 09/24/18 18:52 110 31 122/81 100 09/24/18 18:22 106 25 118/93 100 09/24/18 18:00 105 27 100 09/24/18 17:52 106 21 125/94 100 09/24/18 17:22 98.8 F 107 26 120/89 100 - Laboratory Lab Results: Lab Results 09/24/18 09/24/18 09/24/18 Range/Units 17:52 17:52 17:52 WBC 18.8 H (3.5-10.8) 10^3/uL RBC 4.21 (3.70-4.87) 10^6 /uL Hgb 13.3 (12.0-16.0) g/dL Hct 40 (33-41) % MCV 95 (80-97) fL MCH 32 H (27-31) pg MCHC 33 (31-36) g/dL RDW 15 (10.5-15) % Plt Count 201 (150-450) 10^3/uL MPV 8.3 (7.4-10.4) fL Neut % (Auto) 91.2 % Lymph % (Auto) 4.1 % [place] % (Auto) 4.2 % Eos % (Auto) 0.3 % Baso % (Auto) 0.2 % Absolute Neuts (auto) 17.1 H (1.5-7.7) 10^3/ul Absolute Lymphs (auto) 0.8 L (1.0-4.8) 10^3/ul Absolute Monos (auto) 0.8 (0-0.8) 10^3/ul Absolute Eos (auto) 0.1 (0-0.6) 10^3/ul Absolute Basos (auto) 0 (0-0.2) 10^3/ul Absolute Nucleated RBC 0 10^3/ul Nucleated RBC % 0 INR (Anticoag Therapy) 0.99 (0.77-1.02) APTT 24.0 L (26.0-36.3) seconds D-Dimer, Quantitative 469 H (Less Than 230) ng/mL Sodium 137 (135-145) mmol/L Potassium 3.8 (3.5-5.0) mmol/L Chloride 108 (101-111) mmol/L Carbon Dioxide 21 L (22-32) mmol/L Anion Gap 8 (2-11) mmol/L BUN 9 (6-24) mg/dL Creatinine 0.74 (0.51-0.95) mg/dL Est GFR ( Amer) 106.9 (>60) Est GFR (Non-Af Amer) 88.3 (>60) BUN/Creatinine Ratio 12.2 (8-20) Glucose 116 H (70-100) mg/dL Lactic Acid (0.5-2.0) mmol/L Calcium 8.4 L (8.6-10.3) mg/dL Total Bilirubin 0.60 (0.2-1.0) mg/dL AST 41 H (13-39) U/L ALT 10 (7-52) U/L Alkaline Phosphatase 121 H (34-104) U/L Troponin I 0.02 (<0.04) ng/mL Total Protein 6.2 L (6.4-8.9) g/dL Albumin 3.3 (3.2-5.2) g/dL Globulin 2.9 (2-4) g/dL Albumin/Globulin Ratio 1.1 (1-3) Lipase < 10 L (11.0-82.0) U/L Beta HCG, Quant < 0.60 mIU/mL 09/24/18 Range/Units 17:52 WBC (3.5-10.8) 10^3/uL RBC (3.70-4.87) 10^6 /uL Hgb (12.0-16.0) g/dL Hct (33-41) % MCV (80-97) fL MCH (27-31) pg MCHC (31-36) g/dL RDW (10.5-15) % Plt Count (150-450) 10^3/uL MPV (7.4-10.4) fL Neut % (Auto) % Lymph % (Auto) % [place] % (Auto) % Eos % (Auto) % Baso % (Auto) % Absolute Neuts (auto) (1.5-7.7) 10^3/ul Absolute Lymphs (auto) (1.0-4.8) 10^3/ul Absolute Monos (auto) (0-0.8) 10^3/ul Absolute Eos (auto) (0-0.6) 10^3/ul Absolute Basos (auto) (0-0.2) 10^3/ul Absolute Nucleated RBC 10^3/ul Nucleated RBC % INR (Anticoag Therapy) (0.77-1.02) APTT (26.0-36.3) seconds D-Dimer, Quantitative (Less Than 230) ng/mL Sodium (135-145) mmol/L Potassium (3.5-5.0) mmol/L Chloride (101-111) mmol/L Carbon Dioxide (22-32) mmol/L Anion Gap (2-11) mmol/L BUN (6-24) mg/dL Creatinine (0.51-0.95) mg/dL Est GFR ( Amer) (>60) Est GFR (Non-Af Amer) (>60) BUN/Creatinine Ratio (8-20) Glucose (70-100) mg/dL Lactic Acid 1.6 (0.5-2.0) mmol/L Calcium (8.6-10.3) mg/dL Total Bilirubin (0.2-1.0) mg/dL AST (13-39) U/L ALT (7-52) U/L Alkaline Phosphatase (34-104) U/L Troponin I (<0.04) ng/mL Total Protein (6.4-8.9) g/dL Albumin (3.2-5.2) g/dL Globulin (2-4) g/dL Albumin/Globulin Ratio (1-3) Lipase (11.0-82.0) U/L Beta HCG, Quant mIU/mL Result Diagrams: 09/24/18 17:52 09/24/18 17:52 Lab Statement: Any lab studies that have been ordered have been reviewed, and results considered in the medical decision making process. Course/Dx - Course Course Of Treatment: Patient complains of shortness of breath starting this morning. History of cough and chest pain 1 week, and/V 1 week. CP described as squeezing, constant, sternal. Recent diagnosis of thrush after taking antibiotics for UTI. Admitted in June for pancreatitis. Denies fever, diarrhea, abdominal pain, change in urine, change in BM. Medical history is chronic pancreatitis, chronic diarrhea. Physical exam unremarkable. Tachycardic. Tachypnea. Low O2 sats in the 80s, patient placed on nonrebreather, followed by a nasal cannula at 3 L. WBC 18.8. D-dimer 469. Labs was unremarkable. CTA chest negative for PE, positive for pneumonitis. Chest x-ray positive for multifocal pneumonia. Admitted to hospitalist [facility] for pneumonia and hypoxia. - Diagnoses Provider Diagnoses: Pneumonia, Hypoxia Discharge - Sign-Out/Discharge Documenting (check all that apply): Patient Departure Patient Received Moderate/Deep Sedation with Procedure: No - Discharge Plan Condition: Fair Disposition: ADMITTED TO [facility] - Billing Disposition and Condition Condition: FAIR Disposition: Admitted to [facility]
[2018-09-24] MEDS ORDERED: oxyCODONE TAB* 5 MG TAB PO ONE (20:47)
[2018-09-24] MEDS ORDERED: hydrOXYzine HCL TAB* 25 MG PO ONE (21:26)
[2018-09-24] MEDS ORDERED: Lactated Ringers 1000 ML Bag* 1,000 ML IV.FLUID IV ONE (21:30)
[2018-09-24] MEDS ORDERED: DOXYcycline IV* 100 MG in NS 0.9% 250 ML* 250 ML IVPB ONE (21:37)
[2018-09-24] MEDS ORDERED: Diclofenac 1.3% PATCH (NF) 5 PATCHS TRANSDERM PRN (21:42)
[2018-09-24] MEDS ORDERED: Lactated Ringers 1000 ML Bag* 1,000 ML IV SCH (22:00)
[2018-09-24] MEDS ORDERED: Zosyn per Pharmacy* NOTE FOLLOW UP SCH (22:00)
[2018-09-24] MEDS ORDERED: Albuterol 2.5 MG/3 ML NEB.SOL* (0.083%) INH PRN (22:01)
[2018-09-24] MEDS ORDERED: Thiamine IV* 100 MG/ML 2 ML VIAL IM ONE (22:03)
[2018-09-24] MEDS ORDERED: NS 0.9% 250 ML* 250 ML ONE (22:19)
[2018-09-24] MEDS ORDERED: methylPREDNISolone SOD 40 MG* 1 ML VIAL IV SCH (23:00)
[2018-09-24] MEDS ORDERED: TRIMETH IVPB SCH (23:00)
[2018-09-24] MEDS ORDERED: SULFAMETHOXAZOLE IVPB SCH (23:00)
[2018-09-24] MEDS ORDERED: Diazepam TAB(*) 5 MG PO SCH (23:00)
[2018-09-24] MEDS ORDERED: D5W IVPB SCH (23:00)
--- NOTE | 2018-09-24 23:14 | HP ---
HISTORY AND PHYSICAL: ADDENDUM: In further review of her CT of the chest, I am concerned with a possibility of PCP, especially with the patient's recent diagnosis of thrush. She did have a negative HIV in June 2018, but she may have immunosuppression of other source. IMPRESSION: With the impressive bilateral infiltrates with ground glass opacity , I am going to add Bactrim to her regimen. Her oxygen saturation on room air in the emergency room was 82%. So, I am also going to add steroids even before doing an ABG as I suspect her PaO2 is below 70. I am going to do sputum for Pneumocystis PCR and another HIV test was already ordered. [id number] #: [id number] MTDD
[2018-09-24] MEDS: Morphine 4 MG/ML VIAL (1 ml) 4 MG/ML VIAL IV PRN (23:55)
[2018-09-24] MEDS: D5W IVPB SCH (23:57)
[2018-09-24] MEDS: TRIMETH IVPB SCH (23:57)
[2018-09-24] MEDS: SULFAMETHOXAZOLE IVPB SCH (23:57)
--- NOTE | 2018-09-25 00:21 | HP ---
ADDENDUM NOW INCLUDED ON THIS REPORT CC: LUIS M Yung * HISTORY AND PHYSICAL: DATE OF ADMISSION: 09/24/18 TIME OF EVALUATION: 9:30 p.m. CHIEF COMPLAINT: "I am short of breath." PRIMARY CARE PROVIDER: LUIS M Yung HISTORY OF PRESENT ILLNESS: Ms. Carlton is a 38-year-old female with a past medical history of recurrent alcoholic chronic pancreatitis, asthma, chronic back pain, anxiety, who presents to the emergency room with complaints of shortness of breath. The patient states that 2-1/2 weeks ago, she started to have some sore throat and secretions. She thought she was coming down with something and the symptoms persisted. She continued to have sore throat and this progressed with cough and chest congestion. She states that her symptoms have continued to progress and earlier this week, she was seen by her primary care provider and diagnosed with oral thrush. She was prescribed nystatin but she did not have a chance to sweet pickle maker the medication until today when she tried to use for the first time and she vomited right after. She states that since yesterday, the shortness of breath has become more intense and she now has bilateral pleuritic chest pain that she states feels like when she had pneumonia in the past. In the emergency room, she was found to be tachycardic and very tachypneic requiring supplemental oxygen. The hospitalist service was called for further evaluation. The patient complains of abdominal pain but states that this is her usual chronic pancreatitis abdominal pain. There is no nausea, just 1 episode of vomiting after using nystatin. No diarrhea. She thinks she had fever but it was not measured and she also endorses chills. PAST MEDICAL HISTORY: 1. Chronic pancreatitis secondary to alcohol use. 2. Asthma. 3. Chronic back pain. 4. Anxiety. MEDICATION LIST: 1. Albuterol HFA 1 puff inhaled q.6 hours p.r.n. shortness of breath, wheezing. 2. Baclofen 10 mg p.o. q.8 hours p.r.n. pain. 3. Diclofenac patch topical daily as needed for pain. 4. Gabapentin 900 mg p.o. t.i.d. 5. Hydroxyzine 25 p.o. at bedtime. 6. Melatonin 1 tablet p.o. at bedtime as needed for insomnia. 7. Nystatin suspension. 8. Ondansetron 4 mg p.o. q.8 hours p.r.n. nausea. 9. Oxycodone 5 mg p.o. b.i.d. 10. Seroquel 25 mg p.o. at bedtime. 11. Ranitidine 150 mg p.o. b.i.d. ALLERGIES: With AZITHROMYCIN, the patient had difficulty breathing. With CEPHALEXIN, the patient had palpitation. With CIPROFLOXACIN, she had difficulty breathing. With CODEINE, she had hives. With LORAZEPAM, she had altered mental status. With ACETAMINOPHEN, the patient had nausea and vomiting. FAMILY HISTORY: Her parents are alive and healthy. SOCIAL HISTORY: There is a history of alcohol abuse. The patient states that her last drink was "Twisted Tea" last week. She states that she is still smoking a pack a day and she has been smoker for at least 20 years. She denies drug use. Surrogate decision maker is her significant other, Joe Valentine, phone number is [phone]. REVIEW OF SYSTEMS: A 14-point review of systems was performed and all the pertinent negative and positive findings are in the HPI. PHYSICAL EXAMINATION GENERAL: The patient is a young lady, sitting up in the stretcher, in moderate respiratory distress. She cannot speak in full sentences, only a few words and there is accessory muscle use on her abdomen and neck. There is no nasal flaring. VITAL SIGNS: Temperature 98.8, heart rate is 112, respiratory rate is 45, oxygen saturation is 96% on several liters nasal cannula, blood pressure is 125/ 90. HEENT: Pupils are equal. Moist mucous membranes. CHEST: Breath sounds present bilaterally with bilateral crackles. CVS: Normal S1, S2. Regular rate and rhythm. ABDOMEN: Soft, nontender, nondistended. Bowel sounds are present. EXTREMITIES: No edema. NEUROLOGIC: She is alert and oriented x3. Able to move all 4 extremities. DIAGNOSTIC STUDIES/LAB DATA: The patient had a CBC that showed WBC of 18.8, hemoglobin of 13.3, hematocrit of 40, platelets of 201 with 91% neutrophils. INR was 0.9. D-dimer 469. Chemistry showed a sodium of 137, potassium of 3.8, chloride 108, bicarbonate 21, BUN 9, creatinine of 0.74, glucose of 116, lactic acid 1.6, calcium 8.4. LFTs were normal except for an AST of 41 and alk phos of 121. Troponin was negative. Lipase was less than 10. HCG less than 0.6. Chest x-ray shows confluent and multifocal consolidation throughout the lungs bilaterally and I agree with this reading. CTA of the chest showed no visible acute pulmonary embolism. Bilateral interstitial and airspace opacities suspicious for pulmonary edema or pneumonitis with mild mediastinal lymphadenopathy. No aortic dissection. ASSESSMENT AND PLAN: Ms. Carlton is a 38-year-old lady with a past medical history of alcohol abuse, chronic pancreatitis, asthma, chronic back pain, anxiety. Past medical history of alcoholism, chronic pancreatitis, asthma, chronic back pain, anxiety, who presents to the emergency room with more than 2 weeks of progressive shortness of breath, cough, found to have sepsis and respiratory failure secondary to pneumonia. 1. Sepsis. The patient meets sepsis criteria with tachycardia, tachypnea, and leukocytosis. Source is pneumonia. She received IV fluids, blood cultures are ordered, and her lactic acid is normal. We will continue to monitor her closely. 2. Pneumonia. This could be community-acquired pneumonia, but I am also concerned with possibility of aspiration in this patient with known alcoholism. 3. She will be continued on Zosyn and we will add doxycycline. I am going to check influenza, blood cultures, sputum culture, legionella and pneumonococcal antigen as well as influenza. The patient will receive bronchodilators as needed, but her asthma appears to be compensated at this time. 4. Acute hypoxemic respiratory failure secondary to multilobar pneumonia. The patient is on a nasal cannula with 7 L in the emergency room, but with a respiratory rate of 45, with accessory muscle use. She will be admitted to the intensive care unit and going to start high-flow oxygen to decrease her work of breathing. 5. Thrush. The patient could not tolerate nystatin. I am going to order clotrimazole thrush and with a history of thrush, pneumonia, I am also going to check HIV test. 6. Chronic back pain. We will continue her usual medications. 7. Alcoholism. The patient has no signs of withdrawal at this time, but she will be on a [facility] protocol. 8. DVT prophylaxis. The patient has a score of 1 on the DVT Prophylaxis Risk Assessment Guide and she will be started on subcutaneous heparin. 9. Code status is full. TIME SPENT: Approximately 60 minutes was spent with the patient interview, medical records review, physical examination to complete this admission, more than half of this time was spent [id number] with the patient and coordination of care. ADDENDUM: In further review of her CT of the chest, I am concerned with a possibility of PCP, especially with the patient's recent diagnosis of thrush. She did have a negative HIV in June 2018, but she may have immunosuppression of other source. IMPRESSION: With the impressive bilateral infiltrates with ground glass opacity , I am going to add Bactrim to her regimen. Her oxygen saturation on room air in the emergency room was 82%. So, I am also going to add steroids even before doing an ABG as I suspect her PaO2 is below 70. I am going to do sputum for Pneumocystis PCR and another HIV test was already ordered. [id number] #: [id number] #: [id number] LILI
[2018-09-25] MEDS: Pantoprazole IV* 40 MG IV SCH ×2 (01:47→08:23)
[2018-09-25] MEDS: Morphine 4 MG/ML VIAL (1 ml) 4 MG/ML VIAL IV PRN ×4 (02:02→21:28)
[2018-09-25] MEDS: CLOTRIMAZOLE PO SCH ×6 (02:57→21:29)
[2018-09-25] MEDS: ZOSYN 3.375 GM Q8H per EXTENDED INFUSION IVPB SCH ×8 (03:22→23:29)
[2018-09-25] MEDS: NS 0.9% 1000 ML** 1,000 ML IV SCH ×2 (03:29→10:44)
[2018-09-25] MEDS: Gabapentin CAP(*) 300 MG PO SCH ×3 (03:48→21:22)
[2018-09-25] MEDS: Heparin VIAL(*) 5000 UNITS/ML VIAL (FIVE THOUSAND) SUBCUT SCH ×4 (03:49→21:48)
[2018-09-25] MEDS: DOXYcycline CAP(*) 100 MG PO SCH ×3 (04:44→21:29)
--- NOTE | 2018-09-25 04:46 | PN ---
Sepsis Event Evaluation Date of Evaluation: 09/25/18 Time of Evaluation: 04:43 Current Stage of Sepsis: Sepsis Vital Signs - Last 12 Hours: Vital Signs - 12 hr Temp Pulse Resp BP Pulse Ox 09/25/18 04:01 101 42 99 09/25/18 04:00 98 43 112/84 98 09/25/18 03:45 98.4 F 09/25/18 03:44 103 19 116/88 97 09/25/18 03:00 102 40 100 09/25/18 02:02 45 09/25/18 02:00 99 45 122/92 100 09/25/18 01:54 104 33 113/78 100 09/25/18 01:45 99 37 111/85 98 09/25/18 01:30 105 20 117/86 99 09/25/18 01:15 102 46 115/85 99 09/25/18 01:00 106 49 119/86 98 09/25/18 00:52 106 24 100 09/25/18 00:46 110 43 116/86 100 09/25/18 00:30 110 45 118/93 100 09/25/18 00:16 130 29 96 09/25/18 00:15 122 41 130/99 96 09/25/18 00:00 97.8 F 118 23 104/86 94 09/24/18 23:55 22 09/24/18 23:00 34 09/24/18 22:53 32 126/90 09/24/18 22:22 118 23 119/84 94 09/24/18 22:00 115 46 95 09/24/18 21:52 115 38 114/89 95 09/24/18 21:24 126/97 09/24/18 21:00 113 44 93 09/24/18 20:52 107 44 125/90 96 09/24/18 20:22 103 51 111/86 100 09/24/18 20:00 111 32 98 09/24/18 19:53 106 37 112/85 100 09/24/18 19:00 109 14 100 09/24/18 18:52 110 31 122/81 100 09/24/18 18:22 106 25 118/93 100 09/24/18 18:00 105 27 100 09/24/18 17:52 106 21 125/94 100 09/24/18 17:22 98.8 F 107 26 120/89 100 Lactic Acid: 09/24/18 17:52 Lactic Acid 1.6 - Cardiopulmonary Exam Capillary Refill: Immediate Respiratory: Symmetrical Chest Expansion and Respiratory Effort, - - BS+ bilaterally coarse, no added sounds Cardiovascular: RRR - Normal S1 and S2 - Peripheral Pulse Exam Radial Pulses: Bilateral Normal Pedal Pulses: Bilateral Normal Posterior Tibial Pulse: Bilateral Normal Femoral Pulses: Bilateral Normal Popliteal Pulses: Bilateral Normal - Skin Exam Skin Exam: Normal Turgor - Liberty Coma Scale Best Eye Response: 4 - Spontaneous Best Motor Response: 6 - Obeys Commands Best Verbal Response: 5 - Oriented Coma Scale Total: 15 Assess/Plan/Problems-Billing Assessment: 38 yo F with sepsis secondary to multilobar pneumonia. More comfortable with Vapotherm, not using accessory muscles, able to speak in full sentences. Will continue current management.
[2018-09-25] MEDS: PROCHLORPERAZINE INJ 5 MG/ML 2 ML VIAL IV PRN ×2 (04:53→12:30)
[2018-09-25] MEDS: HYDROmorphone INJ* 0.5 MG/0.5 ML SYRINGE IV SLOW PU PRN ×3 (05:01→18:08)
[2018-09-25 05:40] LABS: ABS Basophils 0 10^3/ul (0-0.2); ABS Eosinophils 0 10^3/ul (0-0.6); ABS Lymphocytes 0.3 10^3/ul (1.0-4.8); ABS Monocytes 0.2 10^3/ul (0-0.8); ABS Neutrophils 12.6 10^3/ul (1.5-7.7); ABS Nucleated RBC 0 10^3/ul; Eosinophil % 0.1 %; Hematocrit 37 % (33-41); Hemoglobin 12.1 g/dL (12.0-16.0); Lymphocyte % 1.9 %; Mean Corpuscular HGB Conc 33 g/dL (31-36); Mean Corpuscular Hemoglobin 32 pg (27-31); Mean Corpuscular Volume 96 fL (80-97); Mean Platelet Volume 7.9 fL (7.4-10.4); Nucleated Red Blood Cells % 0; Platelet Count 199 10^3/uL (150-450); Red Blood Count 3.85 10^6 /uL (3.70-4.87); Red Cell Distribution Width 14 % (10.5-15); White Blood Count 13.1 10^3/uL (3.5-10.8)
[2018-09-25 06:03] LABS: BUN/Creatinine Ratio 8.2 (8-20); C Reactive Protein 246.96 mg/L (<8.01); Calcium 7.9 mg/dL (8.6-10.3); EGFR African American 133.5 (>60); EGFR Non-African American 110.4 (>60); Potassium 3.7 mmol/L (3.5-5.0)
[2018-09-25] MEDS: D5W IVPB SCH ×3 (08:15→23:29)
[2018-09-25] MEDS: TRIMETH IVPB SCH ×3 (08:15→23:29)
[2018-09-25] MEDS: SULFAMETHOXAZOLE IVPB SCH ×3 (08:15→23:29)
[2018-09-25] MEDS: Multivitamins/Minerals TAB PO SCH ×2 (08:16→08:26)
[2018-09-25] MEDS: Famotidine TAB* 20 MG PO SCH ×2 (08:17→21:23)
[2018-09-25] MEDS: Folic Acid TAB* 1 MG PO SCH ×2 (08:17→08:28)
[2018-09-25] MEDS: Thiamine TAB* 100 MG TAB PO SCH (08:17)
[2018-09-25] MEDS: oxyCODONE TAB* 5 MG TAB PO SCH ×2 (08:18→21:23)
--- NOTE | 2018-09-25 08:49 | PN ---
Subjective Date of Service: 09/25/18 Interval History: Less SOB. No more chills. Swallows her sputum. No chest pain. Appetite OK. Chronic abd pain unchanged. Objective Active Medications: Albuterol (Ventolin 2.5 Mg/3 Ml Neb.Apple*) 2.5 mg INH Q4H PRN PRN Reason: SOB/WHEEZING Baclofen (Lioresal Tab*) 10 mg PO Q8HR PRN PRN Reason: PAIN Clotrimazole (Mycelex Ekaterina*) 10 mg PO FIVE TIMES DAILY [facility] Last Admin: 09/25/18 08:18 Dose: 10 mg Diazepam (Valium Tab(*)) 0 - 30 mg PO .PER [facility] PROTOCOL [facility]; Protocol Doxycycline Hyclate (Vibramycin Cap(*)) 100 mg PO BID [facility] Last Admin: 09/25/18 08:25 Dose: 100 mg Famotidine (Pepcid Tab*) 20 mg PO BID [facility]; Protocol Last Admin: 09/25/18 08:17 Dose: 20 mg Folic Acid (Folvite Tab*) 1 mg PO DAILY [facility] Last Admin: 09/25/18 08:28 Dose: Not Given Gabapentin (Neurontin Cap(*)) 900 mg PO TID [facility] Last Admin: 09/25/18 03:48 Dose: 900 mg Heparin Sodium (Porcine) (Heparin Vial(*)) 5,000 units SUBCUT Q12HR [facility] Last Admin: 09/25/18 03:54 Dose: Not Given Hydromorphone HCl (Dilaudid Inj*) 0.5 mg IV SLOW PU Q6H PRN PRN Reason: SEVERE PAIN Last Admin: 09/25/18 05:01 Dose: 0.5 mg Hydroxyzine HCl (Atarax Tab*) 25 mg PO QPM [facility] Trimethoprim/Sulfamethoxazole (350 mg/ Dextrose) 521.9 mls @ 260.95 mls/hr IVPB Q8H [facility] Last Admin: 09/25/18 08:15 Dose: 260.95 mls/hr Piperacillin Sod/Tazobactam (Sod 3.375 gm/ Sodium Chloride) 100 mls @ 25 mls/ hr IVPB Q8H [facility] Last Admin: 09/25/18 03:22 Dose: 25 mls/hr Sodium Chloride (Ns 0.9% 1000 Ml) 1,000 mls @ 150 mls/hr IV PER RATE [facility] Last Admin: 09/25/18 03:29 Dose: 150 mls/hr Melatonin (Melatonin) 3 mg PO QPM PRN PRN Reason: SLEEP Morphine Sulfate (Morphine 4 Mg/Ml Vial (1 Ml)) 2 mg IV Q1H PRN PRN Reason: SEVERE PAIN Last Admin: 09/25/18 08:42 Dose: 2 mg Multivitamins/Minerals (Theragran/Minerals Tab*) 1 tab PO DAILY [facility] Last Admin: 09/25/18 08:26 Dose: Not Given Oxycodone HCl (Roxycodone Tab*) 5 mg PO BID [facility] Last Admin: 09/25/18 08:18 Dose: 5 mg Pantoprazole Sodium (Protonix Iv*) 40 mg IV DAILY [facility] Last Admin: 09/25/18 08:23 Dose: 40 mg Pharmacy Consult (Zosyn Per Pharmacy*) 1 note FOLLOW UP .ZOSYN PER PHARMACY [facility] Prochlorperazine Edisylate (Compazine Inj*) 5 mg IV Q6H PRN PRN Reason: NAUSEA/VOMITING Last Admin: 09/25/18 04:53 Dose: 5 mg Quetiapine Fumarate (Seroquel Tab*) 25 mg PO BEDTIME [facility] Thiamine HCl (Vitamin B-1 Tab*) 100 mg PO DAILY [facility] Last Admin: 09/25/18 08:17 Dose: 100 mg Vital Signs - 8 hr 09/25/18 09/25/18 09/25/18 00:46 00:52 01:00 Temperature Pulse Rate 110 106 106 Respiratory 43 24 49 Rate Blood Pressure 116/86 119/86 (mmHg) O2 Sat by Pulse 100 100 98 Oximetry 09/25/18 09/25/18 09/25/18 01:15 01:30 01:45 Temperature Pulse Rate 102 105 99 Respiratory 46 20 37 Rate Blood Pressure 115/85 117/86 111/85 (mmHg) O2 Sat by Pulse 99 99 98 Oximetry 09/25/18 09/25/18 09/25/18 01:54 02:00 02:02 Temperature Pulse Rate 104 99 Respiratory 33 45 45 Rate Blood Pressure 113/78 122/92 (mmHg) O2 Sat by Pulse 100 100 Oximetry 09/25/18 09/25/18 09/25/18 03:00 03:44 03:45 Temperature 98.4 F Pulse Rate 102 103 Respiratory 40 19 Rate Blood Pressure 116/88 (mmHg) O2 Sat by Pulse 100 97 Oximetry 09/25/18 09/25/18 09/25/18 04:00 04:01 04:30 Temperature Pulse Rate 98 101 101 Respiratory 43 42 23 Rate Blood Pressure 112/84 110/80 (mmHg) O2 Sat by Pulse 98 99 98 Oximetry 09/25/18 09/25/18 09/25/18 05:00 05:01 05:33 Temperature Pulse Rate 115 103 Respiratory 25 28 28 Rate Blood Pressure 115/86 96/66 (mmHg) O2 Sat by Pulse 97 99 Oximetry 09/25/18 09/25/18 09/25/18 06:00 06:01 06:31 Temperature Pulse Rate 94 95 86 Respiratory 29 29 28 Rate Blood Pressure 92/61 80/51 (mmHg) O2 Sat by Pulse 99 99 100 Oximetry 09/25/18 09/25/18 09/25/18 06:36 07:00 07:01 Temperature Pulse Rate 86 85 85 Respiratory 24 38 32 Rate Blood Pressure 89/69 98/77 (mmHg) O2 Sat by Pulse 100 100 99 Oximetry 09/25/18 09/25/18 09/25/18 07:30 07:50 08:00 Temperature Pulse Rate 92 76 Respiratory 27 18 25 Rate Blood Pressure 102/72 102/67 (mmHg) O2 Sat by Pulse 100 100 Oximetry 09/25/18 08:42 Temperature Pulse Rate Respiratory 28 Rate Blood Pressure (mmHg) O2 Sat by Pulse Oximetry Oxygen Devices in Use Now: High Flow Heated Nasal Cannula Appearance: Alert, partly up in ICU bed. In good spirits. Looks comfortable. Eyes: No Scleral Icterus Neck: NL Appearance and Movements; NL JVP, No Thyroid Enlargement, Masses Respiratory: Symmetrical Chest Expansion and Respiratory Effort, Clear to Percussion, - - rare crackles Cardiovascular: NL Sounds; No Murmurs; No JVD, RRR, No Edema, - Extremities: No Edema, No Clubbing, Cyanosis, - Skin: No Rash or Ulcers, No Nodules or Sclerosis, - Neurological: Alert and Oriented x 3, NL Sensation Result Diagrams: 09/25/18 05:28 09/25/18 05:28 Additional Lab and Data: Lab Results 09/24/18 09/24/18 09/24/18 Range/Units 17:52 17:52 17:52 WBC 18.8 H (3.5-10.8) 10^3/uL RBC 4.21 (3.70-4.87) 10^6 /uL Hgb 13.3 (12.0-16.0) g/dL Hct 40 (33-41) % MCV 95 (80-97) fL MCH 32 H (27-31) pg MCHC 33 (31-36) g/dL RDW 15 (10.5-15) % Plt Count 201 (150-450) 10^3/uL MPV 8.3 (7.4-10.4) fL Neut % (Auto) 91.2 % Lymph % (Auto) 4.1 % [place] % (Auto) 4.2 % Eos % (Auto) 0.3 % Baso % (Auto) 0.2 % Absolute Neuts (auto) 17.1 H (1.5-7.7) 10^3/ul Absolute Lymphs (auto) 0.8 L (1.0-4.8) 10^3/ul Absolute Monos (auto) 0.8 (0-0.8) 10^3/ul Absolute Eos (auto) 0.1 (0-0.6) 10^3/ul Absolute Basos (auto) 0 (0-0.2) 10^3/ul Absolute Nucleated RBC 0 10^3/ul Nucleated RBC % 0 INR (Anticoag Therapy) 0.99 (0.77-1.02) APTT 24.0 L (26.0-36.3) seconds D-Dimer, Quantitative 469 H (Less Than 230) ng/mL Sodium 137 (135-145) mmol/L Potassium 3.8 (3.5-5.0) mmol/L Chloride 108 (101-111) mmol/L Carbon Dioxide 21 L (22-32) mmol/L Anion Gap 8 (2-11) mmol/L BUN 9 (6-24) mg/dL Creatinine 0.74 (0.51-0.95) mg/dL Est GFR ( Amer) 106.9 (>60) Est GFR (Non-Af Amer) 88.3 (>60) BUN/Creatinine Ratio 12.2 (8-20) Glucose 116 H (70-100) mg/dL Lactic Acid (0.5-2.0) mmol/L Calcium 8.4 L (8.6-10.3) mg/dL Total Bilirubin 0.60 (0.2-1.0) mg/dL AST 41 H (13-39) U/L ALT 10 (7-52) U/L Alkaline Phosphatase 121 H (34-104) U/L Troponin I 0.02 (<0.04) ng/mL Total Protein 6.2 L (6.4-8.9) g/dL Albumin 3.3 (3.2-5.2) g/dL Globulin 2.9 (2-4) g/dL Albumin/Globulin Ratio 1.1 (1-3) Lipase < 10 L (11.0-82.0) U/L Beta HCG, Quant < 0.60 mIU/mL 09/24/18 Range/Units 17:52 WBC (3.5-10.8) 10^3/uL RBC (3.70-4.87) 10^6 /uL Hgb (12.0-16.0) g/dL Hct (33-41) % MCV (80-97) fL MCH (27-31) pg MCHC (31-36) g/dL RDW (10.5-15) % Plt Count (150-450) 10^3/uL MPV (7.4-10.4) fL Neut % (Auto) % Lymph % (Auto) % [place] % (Auto) % Eos % (Auto) % Baso % (Auto) % Absolute Neuts (auto) (1.5-7.7) 10^3/ul Absolute Lymphs (auto) (1.0-4.8) 10^3/ul Absolute Monos (auto) (0-0.8) 10^3/ul Absolute Eos (auto) (0-0.6) 10^3/ul Absolute Basos (auto) (0-0.2) 10^3/ul Absolute Nucleated RBC 10^3/ul Nucleated RBC % INR (Anticoag Therapy) (0.77-1.02) APTT (26.0-36.3) seconds D-Dimer, Quantitative (Less Than 230) ng/mL Sodium (135-145) mmol/L Potassium (3.5-5.0) mmol/L Chloride (101-111) mmol/L Carbon Dioxide (22-32) mmol/L Anion Gap (2-11) mmol/L BUN (6-24) mg/dL Creatinine (0.51-0.95) mg/dL Est GFR ( Amer) (>60) Est GFR (Non-Af Amer) (>60) BUN/Creatinine Ratio (8-20) Glucose (70-100) mg/dL Lactic Acid 1.6 (0.5-2.0) mmol/L Calcium (8.6-10.3) mg/dL Total Bilirubin (0.2-1.0) mg/dL AST (13-39) U/L ALT (7-52) U/L Alkaline Phosphatase (34-104) U/L Troponin I (<0.04) ng/mL Total Protein (6.4-8.9) g/dL Albumin (3.2-5.2) g/dL Globulin (2-4) g/dL Albumin/Globulin Ratio (1-3) Lipase (11.0-82.0) U/L Beta HCG, Quant mIU/mL Microbiology and Other Data: Microbiology 09/24/18 23:23 Legionella Urinary Antigen - Final Urine Negative Legionella Antigen Streptococcus pneumoniae Ag Screen - Final Negative S. pneumo Antigen Assess/Plan/Problems-Billing Assessment: 38 yo F with sepsis secondary to multilobar pneumonia. More comfortable with Vapotherm, not using accessory muscles, able to speak in full sentences. Will continue current management. - Patient Problems (1) Pneumonia Current Visit: No Status: Acute Code(s): J18.9 - PNEUMONIA, UNSPECIFIED ORGANISM SNOMED Code(s): 399044569 Comment: On Vapotherm 3/30 AM. CD4 count requested, if over 200 will stop TMP-SMX and steroids. Plan 5 days prednisone 40 mg bid, athen 40 mg daily x 5 then 20 mg daily x 10. Continue pip/jasbir, doxy. (2) Tobacco abuse Current Visit: No Status: Acute Code(s): Z72.0 - TOBACCO USE SNOMED Code(s ): 298036548 Comment: Pt advised to quit smoking and avoid second hand smoke. Nicotine patch 21 mg/d ordered. (3) Alcohol abuse Current Visit: No Status: Chronic Code(s): F10.10 - ALCOHOL ABUSE, UNCOMPLICATED SNOMED Code(s): 38180201 Comment: Pt states she last consumed alcohol 7-10 days ago. I find her credible and will d/c [facility] protocol. (4) Chronic back pain Current Visit: No Status: Chronic Code(s): M54.9 - DORSALGIA, UNSPECIFIED; G89.29 - OTHER CHRONIC PAIN SNOMED Code(s): 531482917 Comment: - Continue gabapentin and baclofen
[2018-09-25] MEDS ORDERED: DOXYcycline IV* 100 MG in NS 0.9% 250 ML* 250 ML IVPB SCH (09:30)
[2018-09-25 10:40] LABS: Influenza A Molecular NEGATIVE (Negative); Influenza B Molecular NEGATIVE (Negative)
[2018-09-25] MEDS: predniSONE TAB* 20 MG PO SCH ×2 (10:55→21:23)
[2018-09-25] MEDS: Nicotine PATCH 21 MG/24 HR* PATCH TRANSDERM SCH (15:41)
[2018-09-25] MEDS ORDERED: hydrOXYzine HCL TAB* 25 MG PO SCH (18:00)
[2018-09-25] MEDS: QUEtiapine TAB* 25 MG PO SCH (21:22)
[2018-09-25] MEDS ORDERED: Ondansetron INJ* 2 MG/ML VIAL ONE (21:37)
[2018-09-25] MEDS: Ondansetron INJ* 2 MG/ML VIAL IV PRN (21:39)
[2018-09-25] MEDS: hydrOXYzine HCL TAB* 25 MG PO SCH (21:47)
[2018-09-26] MEDS: HYDROmorphone INJ* 0.5 MG/0.5 ML SYRINGE IV SLOW PU PRN ×2 (00:06→08:42)
[2018-09-26] MEDS: Melatonin 3 MG TAB PO PRN (00:14)
[2018-09-26] MEDS: NS 0.9% 1000 ML** 1,000 ML IV SCH ×2 (02:21→22:19)
[2018-09-26] MEDS: Morphine 4 MG/ML VIAL (1 ml) 4 MG/ML VIAL IV PRN (06:21)
[2018-09-26] MEDS: Ondansetron INJ* 2 MG/ML VIAL IV PRN (06:21)
[2018-09-26] MEDS: CLOTRIMAZOLE PO SCH ×6 (06:21→21:51)
[2018-09-26] MEDS: TRIMETH IVPB SCH (07:11)
[2018-09-26] MEDS: SULFAMETHOXAZOLE IVPB SCH (07:11)
[2018-09-26] MEDS: D5W IVPB SCH (07:11)
[2018-09-26] MEDS: Nicotine PATCH 21 MG/24 HR* PATCH TRANSDERM SCH (07:48)
[2018-09-26] MEDS: Heparin VIAL(*) 5000 UNITS/ML VIAL (FIVE THOUSAND) SUBCUT SCH ×2 (07:49→21:51)
[2018-09-26] MEDS: oxyCODONE TAB* 5 MG TAB PO SCH ×2 (08:26→08:57)
[2018-09-26] MEDS: Famotidine TAB* 20 MG PO SCH ×3 (08:26→20:11)
[2018-09-26] MEDS: predniSONE TAB* 20 MG PO SCH ×2 (08:26→08:57)
[2018-09-26] MEDS: Thiamine TAB* 100 MG TAB PO SCH ×2 (08:26→08:57)
[2018-09-26] MEDS: Multivitamins/Minerals TAB PO SCH ×2 (08:26→08:57)
[2018-09-26] MEDS: ZOSYN 3.375 GM Q8H per EXTENDED INFUSION IVPB SCH ×6 (08:26→23:50)
[2018-09-26] MEDS: Gabapentin CAP(*) 300 MG PO SCH ×3 (08:26→20:00)
[2018-09-26] MEDS: Folic Acid TAB* 1 MG PO SCH ×2 (08:26→08:57)
[2018-09-26] MEDS: DOXYcycline CAP(*) 100 MG PO SCH ×2 (08:27→20:11)
[2018-09-26] MEDS: Pantoprazole IV* 40 MG IV SCH (08:57)
--- NOTE | 2018-09-26 09:52 | PN ---
Subjective Date of Service: 09/26/18 Interval History: Dry cough, sternal pain with inspiration. Less SOB today. No new c/o. Objective Active Medications: Albuterol (Ventolin 2.5 Mg/3 Ml Neb.Apple*) 2.5 mg INH Q4H PRN PRN Reason: SOB/WHEEZING Baclofen (Lioresal Tab*) 10 mg PO Q8HR PRN PRN Reason: PAIN Benzonatate (Tessalon Cap*) 200 mg PO TID [facility] Clotrimazole (Mycelex Ekaterina*) 10 mg PO FIVE TIMES DAILY [facility] Last Admin: 09/26/18 08:57 Dose: Not Given Diazepam (Valium Tab(*)) 0 - 30 mg PO .PER [facility] PROTOCOL [facility]; Protocol Doxycycline Hyclate (Vibramycin Cap(*)) 100 mg PO BID [facility] Last Admin: 09/26/18 08:27 Dose: 100 mg Famotidine (Pepcid Tab*) 20 mg PO BID [facility]; Protocol Last Admin: 09/26/18 08:57 Dose: Not Given Gabapentin (Neurontin Cap(*)) 900 mg PO TID [facility] Last Admin: 09/26/18 08:26 Dose: 900 mg Heparin Sodium (Porcine) (Heparin Vial(*)) 5,000 units SUBCUT Q12HR [facility] Last Admin: 09/26/18 07:49 Dose: Not Given Hydromorphone HCl (Dilaudid Inj*) 0.5 mg IV SLOW PU Q6H PRN PRN Reason: SEVERE PAIN Last Admin: 09/26/18 08:42 Dose: 0.5 mg Hydroxyzine HCl (Atarax Tab*) 25 mg PO BEDTIME [facility] Last Admin: 09/25/18 21:47 Dose: 25 mg Piperacillin Sod/Tazobactam (Sod 3.375 gm/ Sodium Chloride) 100 mls @ 25 mls/ hr IVPB Q8H [facility] Last Admin: 09/26/18 08:26 Dose: 25 mls/hr Sodium Chloride (Ns 0.9% 1000 Ml) 1,000 mls @ 60 mls/hr IV PER RATE [facility] Last Admin: 09/26/18 02:21 Dose: 60 mls/hr Melatonin (Melatonin) 3 mg PO QPM PRN PRN Reason: SLEEP Last Admin: 09/26/18 00:14 Dose: 3 mg Morphine Sulfate (Morphine 4 Mg/Ml Vial (1 Ml)) 2 mg IV Q1H PRN PRN Reason: SEVERE PAIN Last Admin: 09/26/18 06:21 Dose: 2 mg Nicotine (Nicotine Patch 21 Mg/24 Hr*) 1 patch TRANSDERM DAILY@0800 [facility] Last Admin: 09/26/18 07:48 Dose: Not Given Ondansetron HCl (Zofran Inj*) 4 mg IV Q6H PRN PRN Reason: NAUSEA Last Admin: 09/26/18 06:21 Dose: 4 mg Oxycodone HCl (Roxycodone Tab*) 5 mg PO BID [facility] Last Admin: 09/26/18 08:57 Dose: Not Given Pantoprazole Sodium (Protonix Iv*) 40 mg IV DAILY [facility] Last Admin: 09/26/18 08:57 Dose: Not Given Pharmacy Consult (Zosyn Per Pharmacy*) 1 note FOLLOW UP .ZOSYN PER PHARMACY [facility] Prochlorperazine Edisylate (Compazine Inj*) 5 mg IV Q6H PRN PRN Reason: NAUSEA/VOMITING Last Admin: 09/25/18 12:30 Dose: 5 mg Quetiapine Fumarate (Seroquel Tab*) 25 mg PO BEDTIME [facility] Last Admin: 09/25/18 21:22 Dose: 25 mg Thiamine HCl (Vitamin B-1 Tab*) 100 mg PO DAILY [facility] Last Admin: 09/26/18 08:57 Dose: Not Given Vital Signs - 8 hr 09/26/18 09/26/18 09/26/18 02:00 02:02 03:00 Temperature Pulse Rate 94 94 87 Respiratory 25 29 27 Rate Blood Pressure 99/69 101/74 (mmHg) O2 Sat by Pulse 98 97 100 Oximetry 09/26/18 09/26/18 09/26/18 03:01 03:54 04:00 Temperature 97.2 F Pulse Rate 88 Respiratory 27 30 Rate Blood Pressure (mmHg) O2 Sat by Pulse 98 Oximetry 09/26/18 09/26/18 09/26/18 04:01 05:00 05:01 Temperature Pulse Rate 100 89 92 Respiratory 30 30 28 Rate Blood Pressure 93/75 104/77 (mmHg) O2 Sat by Pulse 75 98 100 Oximetry 09/26/18 09/26/18 09/26/18 06:00 06:01 06:21 Temperature Pulse Rate 88 93 Respiratory 30 35 32 Rate Blood Pressure 106/77 (mmHg) O2 Sat by Pulse 100 98 Oximetry 09/26/18 09/26/18 09/26/18 06:22 07:00 07:50 Temperature 98 F Pulse Rate 95 Respiratory 32 18 Rate Blood Pressure (mmHg) O2 Sat by Pulse 98 Oximetry 09/26/18 09/26/18 09/26/18 08:00 08:42 08:48 Temperature Pulse Rate 88 103 Respiratory 24 22 20 Rate Blood Pressure 101/76 (mmHg) O2 Sat by Pulse 98 96 Oximetry 09/26/18 09/26/18 09:00 09:41 Temperature Pulse Rate 98 Respiratory 33 28 Rate Blood Pressure 102/73 (mmHg) O2 Sat by Pulse 95 Oximetry Oxygen Devices in Use Now: High Flow Nasal Cannula Appearance: Alert, partly up in ICU bed. In good spirits. Occ dry cough during my visit. Eyes: No Scleral Icterus Respiratory: Symmetrical Chest Expansion and Respiratory Effort, Clear to Auscultation, Clear to Percussion Cardiovascular: NL Sounds; No Murmurs; No JVD, RRR, No Edema, - Extremities: No Edema, No Clubbing, Cyanosis, - Skin: No Rash or Ulcers, No Nodules or Sclerosis, - Neurological: Alert and Oriented x 3, NL Sensation Result Diagrams: 09/25/18 05:28 09/25/18 05:28 Additional Lab and Data: Lab Results 09/24/18 09/24/18 09/24/18 Range/Units 17:52 17:52 17:52 WBC 18.8 H (3.5-10.8) 10^3/uL RBC 4.21 (3.70-4.87) 10^6 /uL Hgb 13.3 (12.0-16.0) g/dL Hct 40 (33-41) % MCV 95 (80-97) fL MCH 32 H (27-31) pg MCHC 33 (31-36) g/dL RDW 15 (10.5-15) % Plt Count 201 (150-450) 10^3/uL MPV 8.3 (7.4-10.4) fL Neut % (Auto) 91.2 % Lymph % (Auto) 4.1 % [place] % (Auto) 4.2 % Eos % (Auto) 0.3 % Baso % (Auto) 0.2 % Absolute Neuts (auto) 17.1 H (1.5-7.7) 10^3/ul Absolute Lymphs (auto) 0.8 L (1.0-4.8) 10^3/ul Absolute Monos (auto) 0.8 (0-0.8) 10^3/ul Absolute Eos (auto) 0.1 (0-0.6) 10^3/ul Absolute Basos (auto) 0 (0-0.2) 10^3/ul Absolute Nucleated RBC 0 10^3/ul Nucleated RBC % 0 INR (Anticoag Therapy) 0.99 (0.77-1.02) APTT 24.0 L (26.0-36.3) seconds D-Dimer, Quantitative 469 H (Less Than 230) ng/mL Sodium 137 (135-145) mmol/L Potassium 3.8 (3.5-5.0) mmol/L Chloride 108 (101-111) mmol/L Carbon Dioxide 21 L (22-32) mmol/L Anion Gap 8 (2-11) mmol/L BUN 9 (6-24) mg/dL Creatinine 0.74 (0.51-0.95) mg/dL Est GFR ( Amer) 106.9 (>60) Est GFR (Non-Af Amer) 88.3 (>60) BUN/Creatinine Ratio 12.2 (8-20) Glucose 116 H (70-100) mg/dL Lactic Acid (0.5-2.0) mmol/L Calcium 8.4 L (8.6-10.3) mg/dL Total Bilirubin 0.60 (0.2-1.0) mg/dL AST 41 H (13-39) U/L ALT 10 (7-52) U/L Alkaline Phosphatase 121 H (34-104) U/L Troponin I 0.02 (<0.04) ng/mL Total Protein 6.2 L (6.4-8.9) g/dL Albumin 3.3 (3.2-5.2) g/dL Globulin 2.9 (2-4) g/dL Albumin/Globulin Ratio 1.1 (1-3) Lipase < 10 L (11.0-82.0) U/L Beta HCG, Quant < 0.60 mIU/mL 09/24/18 Range/Units 17:52 WBC (3.5-10.8) 10^3/uL RBC (3.70-4.87) 10^6 /uL Hgb (12.0-16.0) g/dL Hct (33-41) % MCV (80-97) fL MCH (27-31) pg MCHC (31-36) g/dL RDW (10.5-15) % Plt Count (150-450) 10^3/uL MPV (7.4-10.4) fL Neut % (Auto) % Lymph % (Auto) % [place] % (Auto) % Eos % (Auto) % Baso % (Auto) % Absolute Neuts (auto) (1.5-7.7) 10^3/ul Absolute Lymphs (auto) (1.0-4.8) 10^3/ul Absolute Monos (auto) (0-0.8) 10^3/ul Absolute Eos (auto) (0-0.6) 10^3/ul Absolute Basos (auto) (0-0.2) 10^3/ul Absolute Nucleated RBC 10^3/ul Nucleated RBC % INR (Anticoag Therapy) (0.77-1.02) APTT (26.0-36.3) seconds D-Dimer, Quantitative (Less Than 230) ng/mL Sodium (135-145) mmol/L Potassium (3.5-5.0) mmol/L Chloride (101-111) mmol/L Carbon Dioxide (22-32) mmol/L Anion Gap (2-11) mmol/L BUN (6-24) mg/dL Creatinine (0.51-0.95) mg/dL Est GFR ( Amer) (>60) Est GFR (Non-Af Amer) (>60) BUN/Creatinine Ratio (8-20) Glucose (70-100) mg/dL Lactic Acid 1.6 (0.5-2.0) mmol/L Calcium (8.6-10.3) mg/dL Total Bilirubin (0.2-1.0) mg/dL AST (13-39) U/L ALT (7-52) U/L Alkaline Phosphatase (34-104) U/L Troponin I (<0.04) ng/mL Total Protein (6.4-8.9) g/dL Albumin (3.2-5.2) g/dL Globulin (2-4) g/dL Albumin/Globulin Ratio (1-3) Lipase (11.0-82.0) U/L Beta HCG, Quant mIU/mL Microbiology and Other Data: Microbiology 09/24/18 23:23 Legionella Urinary Antigen - Final Urine Negative Legionella Antigen Streptococcus pneumoniae Ag Screen - Final Negative S. pneumo Antigen Assess/Plan/Problems-Billing Assessment: 38 yo F with sepsis secondary to multilobar pneumonia. More comfortable with Vapotherm, not using accessory muscles, able to speak in full sentences. Will continue current management. - Patient Problems (1) Pneumonia Current Visit: No Status: Acute Code(s): J18.9 - PNEUMONIA, UNSPECIFIED ORGANISM SNOMED Code(s): 670822073 Comment: On 8L/min high flow NC 3/31 AM. HIV 1 & 2 both neg, will stop TMP- SMX and prednisone. Continue pip/jasbir, doxy. (2) Tobacco abuse Current Visit: No Status: Acute Code(s): Z72.0 - TOBACCO USE SNOMED Code(s ): 366964009 Comment: Pt advised to quit smoking and avoid second hand smoke. Nicotine patch 21 mg/d ordered. (3) Alcohol abuse Current Visit: No Status: Chronic Code(s): F10.10 - ALCOHOL ABUSE, UNCOMPLICATED SNOMED Code(s): 73699340 Comment: Pt states she last consumed alcohol 7-10 days ago. I find her credible and d/c'd [facility] protocol. (4) Chronic back pain Current Visit: No Status: Chronic Code(s): M54.9 - DORSALGIA, UNSPECIFIED; G89.29 - OTHER CHRONIC PAIN SNOMED Code(s): 576424880 Comment: - Continue gabapentin and baclofen. Oxycodone 10 mg po q 4 hr PRN.
[2018-09-26] MEDS ORDERED: oxyCODONE TAB* 5 MG TAB PO PRN (09:56)
[2018-09-26] MEDS ORDERED: oxyCODONE TAB* 5 MG TAB PO SCH (10:00)
[2018-09-26] MEDS: Benzonatate CAP* 100 MG PO SCH ×2 (14:03→20:11)
[2018-09-26] MEDS: oxyCODONE TAB* 5 MG TAB PO PRN ×2 (16:32→20:12)
[2018-09-26] MEDS: hydrOXYzine HCL TAB* 25 MG PO SCH (20:10)
[2018-09-26] MEDS: QUEtiapine TAB* 25 MG PO SCH (20:11)
[2018-09-26] MEDS ORDERED: Ketorolac INJ* 15 MG/ML 1 ML VIAL IV PUSH ONE (20:16)
[2018-09-26] MEDS: Nicotine Inhaler* 10 MG AMP INH PRN (20:28)
[2018-09-26] MEDS ORDERED: Mouth Piece, Nicotine* 1 EACH CARTRIDGE INH ONE (21:00)
[2018-09-27] MEDS: oxyCODONE TAB* 5 MG TAB PO PRN ×7 (01:43→22:59)
[2018-09-27] MEDS: Melatonin 3 MG TAB PO PRN ×3 (01:43→23:00)
[2018-09-27] MEDS: CLOTRIMAZOLE PO SCH ×5 (06:31→22:19)
[2018-09-27 06:45] LABS: BUN/Creatinine Ratio 14.9 (8-20); C Reactive Protein 118.26 mg/L (<8.01); EGFR African American 119.8 (>60); Potassium 3.6 mmol/L (3.5-5.0)
[2018-09-27 07:22] LABS: ABS Basophils 0 10^3/ul (0-0.2); ABS Eosinophils 0.2 10^3/ul (0-0.6); ABS Lymphocytes 1.2 10^3/ul (1.0-4.8); ABS Monocytes 0.5 10^3/ul (0-0.8); ABS Neutrophils 6.6 10^3/ul (1.5-7.7); ABS Nucleated RBC 0 10^3/ul; Eosinophil % 2.4 %; Hematocrit 33 % (33-41); Hemoglobin 10.9 g/dL (12.0-16.0); Lymphocyte % 13.9 %; Mean Corpuscular HGB Conc 33 g/dL (31-36); Mean Corpuscular Hemoglobin 32 pg (27-31); Mean Corpuscular Volume 96 fL (80-97); Mean Platelet Volume 8.1 fL (7.4-10.4); Nucleated Red Blood Cells % 0.1; Platelet Count 225 10^3/uL (150-450); Red Blood Count 3.47 10^6 /uL (3.70-4.87); Red Cell Distribution Width 15 % (10.5-15); White Blood Count 8.4 10^3/uL (3.5-10.8)
[2018-09-27] MEDS: Nicotine PATCH 21 MG/24 HR* PATCH TRANSDERM SCH (09:51)
[2018-09-27] MEDS: Mouth Piece, Nicotine* 1 EACH CARTRIDGE INH PRN (10:37)
[2018-09-27] MEDS: Gabapentin CAP(*) 300 MG PO SCH ×3 (11:05→21:07)
[2018-09-27] MEDS: DOXYcycline CAP(*) 100 MG PO SCH ×2 (11:26→22:59)
[2018-09-27] MEDS: Famotidine TAB* 20 MG PO SCH ×2 (11:55→21:07)
[2018-09-27] MEDS: Benzonatate CAP* 100 MG PO SCH ×3 (11:55→21:07)
[2018-09-27] MEDS: Heparin VIAL(*) 5000 UNITS/ML VIAL (FIVE THOUSAND) SUBCUT SCH ×3 (11:55→21:15)
[2018-09-27] MEDS: Thiamine TAB* 100 MG TAB PO SCH (11:56)
[2018-09-27] MEDS: ZOSYN 3.375 GM Q8H per EXTENDED INFUSION IVPB SCH ×4 (11:56→21:46)
[2018-09-27] MEDS ORDERED: Cefdinir cap* 300 MG CAP PO SCH (12:00)
[2018-09-27] MEDS ORDERED: Zosyn per Pharmacy* NOTE FOLLOW UP SCH (15:00)
--- NOTE | 2018-09-27 15:34 | PN ---
Subjective Date of Service: 09/27/18 Interval History: Pt c/o CP with cough and inspiration. requests Dilaudid. stated that from her PCP she "occasionally gets 10 oxycodone pills at a time". Denies any other narcotic use/drug use. Last ETOH drink 1.5 week ago this AM she refuses lab draws and IV's due to pain . Now she is agreeable to PICC Objective Active Medications: Albuterol (Ventolin 2.5 Mg/3 Ml Neb.Apple*) 2.5 mg INH Q4H PRN PRN Reason: SOB/WHEEZING Baclofen (Lioresal Tab*) 10 mg PO Q8HR PRN PRN Reason: PAIN Benzonatate (Tessalon Cap*) 200 mg PO TID [facility] Last Admin: 09/27/18 14:44 Dose: 200 mg Clotrimazole (Mycelex Ekaterina*) 10 mg PO FIVE TIMES DAILY [facility] Last Admin: 09/27/18 14:43 Dose: 10 mg Device (Nicotine Mouth Piece*) 1 each INH .USE W/ CARTRIDGE PRN PRN Reason: WITHDRAWAL - NICOTINE Last Admin: 09/27/18 10:37 Dose: 1 each Doxycycline Hyclate (Vibramycin Cap(*)) 100 mg PO BID [facility] Last Admin: 09/27/18 11:26 Dose: 100 mg Famotidine (Pepcid Tab*) 20 mg PO BID [facility]; Protocol Last Admin: 09/27/18 11:55 Dose: Not Given Gabapentin (Neurontin Cap(*)) 900 mg PO TID [facility] Last Admin: 09/27/18 14:48 Dose: 900 mg Heparin Sodium (Porcine) (Heparin Vial(*)) 5,000 units SUBCUT Q12HR [facility] Last Admin: 09/27/18 11:55 Dose: Not Given Hydroxyzine HCl (Atarax Tab*) 25 mg PO BEDTIME [facility] Last Admin: 09/26/18 20:10 Dose: 25 mg Sodium Chloride (Ns 0.9% 1000 Ml) 1,000 mls @ 60 mls/hr IV PER RATE [facility] Last Admin: 09/26/18 22:19 Dose: 60 mls/hr Piperacillin Sod/Tazobactam (Sod 3.375 gm/ Sodium Chloride) 100 mls @ 25 mls/ hr IVPB Q8H [facility] Piperacillin Sod/Tazobactam (Sod 3.375 gm/ Sodium Chloride) 100 mls @ 200 mls/ hr IVPB ONCE ONE Stop: 09/27/18 15:59 Melatonin (Melatonin) 3 mg PO QPM PRN PRN Reason: SLEEP Last Admin: 09/27/18 01:43 Dose: 3 mg Nicotine (Nicotine Patch 21 Mg/24 Hr*) 1 patch TRANSDERM DAILY@0800 [facility] Last Admin: 09/27/18 09:51 Dose: Not Given Nicotine (Nicotine Inhaler*) 10 mg INH Q2H PRN PRN Reason: CRAVING Last Admin: 09/26/18 20:28 Dose: 10 mg Ondansetron HCl (Zofran Inj*) 4 mg IV Q6H PRN PRN Reason: NAUSEA Last Admin: 09/26/18 06:21 Dose: 4 mg Oxycodone HCl (Roxycodone Tab*) 10 mg PO Q3H PRN PRN Reason: PAIN - MODERATE Last Admin: 09/27/18 13:03 Dose: 10 mg Pharmacy Consult (Zosyn Per Pharmacy*) 1 note FOLLOW UP .ZOSYN PER PHARMACY [facility] Prochlorperazine Edisylate (Compazine Inj*) 5 mg IV Q6H PRN PRN Reason: NAUSEA/VOMITING Last Admin: 09/25/18 12:30 Dose: 5 mg Quetiapine Fumarate (Seroquel Tab*) 25 mg PO BEDTIME [facility] Last Admin: 09/26/18 20:11 Dose: 25 mg Thiamine HCl (Vitamin B-1 Tab*) 100 mg PO DAILY [facility] Last Admin: 09/27/18 11:56 Dose: Not Given Vital Signs - 8 hr 09/27/18 09/27/18 09/27/18 09:45 09:49 10:39 Respiratory 25 25 25 Rate 09/27/18 09/27/18 09/27/18 11:05 13:03 14:21 Respiratory 18 28 23 Rate 09/27/18 14:48 Respiratory 23 Rate Oxygen Devices in Use Now: Nasal Cannula Appearance: 38 yo F in NAD, aAOx3 Eyes: No Scleral Icterus, PERRLA Ears/Nose/Mouth/Throat: NL Teeth, Lips, Gums, Mucous Membranes Moist Neck: NL Appearance and Movements; NL JVP, Trachea Midline Respiratory: Symmetrical Chest Expansion and Respiratory Effort, - - decreased breath sounds b/l with scant rhonchi b/l mid lungs Cardiovascular: NL Sounds; No Murmurs; No JVD Abdominal: NL Sounds; No Tenderness; No Distention, No Hepatosplenomegaly Lymphatic: No Cervical Adenopathy Extremities: No Edema, No Clubbing, Cyanosis Skin: No Rash or Ulcers, No Nodules or Sclerosis Neurological: Alert and Oriented x 3, NL Muscle Strength and Tone Result Diagrams: 09/27/18 06:01 09/27/18 06:01 Additional Lab and Data: Lab Results 09/24/18 09/24/18 09/24/18 Range/Units 17:52 17:52 17:52 WBC 18.8 H (3.5-10.8) 10^3/uL RBC 4.21 (3.70-4.87) 10^6 /uL Hgb 13.3 (12.0-16.0) g/dL Hct 40 (33-41) % MCV 95 (80-97) fL MCH 32 H (27-31) pg MCHC 33 (31-36) g/dL RDW 15 (10.5-15) % Plt Count 201 (150-450) 10^3/uL MPV 8.3 (7.4-10.4) fL Neut % (Auto) 91.2 % Lymph % (Auto) 4.1 % Talbot % (Auto) 4.2 % Eos % (Auto) 0.3 % Baso % (Auto) 0.2 % Absolute Neuts (auto) 17.1 H (1.5-7.7) 10^3/ul Absolute Lymphs (auto) 0.8 L (1.0-4.8) 10^3/ul Absolute Monos (auto) 0.8 (0-0.8) 10^3/ul Absolute Eos (auto) 0.1 (0-0.6) 10^3/ul Absolute Basos (auto) 0 (0-0.2) 10^3/ul Absolute Nucleated RBC 0 10^3/ul Nucleated RBC % 0 INR (Anticoag Therapy) 0.99 (0.77-1.02) APTT 24.0 L (26.0-36.3) seconds D-Dimer, Quantitative 469 H (Less Than 230) ng/mL Sodium 137 (135-145) mmol/L Potassium 3.8 (3.5-5.0) mmol/L Chloride 108 (101-111) mmol/L Carbon Dioxide 21 L (22-32) mmol/L Anion Gap 8 (2-11) mmol/L BUN 9 (6-24) mg/dL Creatinine 0.74 (0.51-0.95) mg/dL Est GFR ( Amer) 106.9 (>60) Est GFR (Non-Af Amer) 88.3 (>60) BUN/Creatinine Ratio 12.2 (8-20) Glucose 116 H (70-100) mg/dL Lactic Acid (0.5-2.0) mmol/L Calcium 8.4 L (8.6-10.3) mg/dL Total Bilirubin 0.60 (0.2-1.0) mg/dL AST 41 H (13-39) U/L ALT 10 (7-52) U/L Alkaline Phosphatase 121 H (34-104) U/L Troponin I 0.02 (<0.04) ng/mL Total Protein 6.2 L (6.4-8.9) g/dL Albumin 3.3 (3.2-5.2) g/dL Globulin 2.9 (2-4) g/dL Albumin/Globulin Ratio 1.1 (1-3) Lipase < 10 L (11.0-82.0) U/L Beta HCG, Quant < 0.60 mIU/mL 09/24/18 Range/Units 17:52 WBC (3.5-10.8) 10^3/uL RBC (3.70-4.87) 10^6 /uL Hgb (12.0-16.0) g/dL Hct (33-41) % MCV (80-97) fL MCH (27-31) pg MCHC (31-36) g/dL RDW (10.5-15) % Plt Count (150-450) 10^3/uL MPV (7.4-10.4) fL Neut % (Auto) % Lymph % (Auto) % Talbot % (Auto) % Eos % (Auto) % Baso % (Auto) % Absolute Neuts (auto) (1.5-7.7) 10^3/ul Absolute Lymphs (auto) (1.0-4.8) 10^3/ul Absolute Monos (auto) (0-0.8) 10^3/ul Absolute Eos (auto) (0-0.6) 10^3/ul Absolute Basos (auto) (0-0.2) 10^3/ul Absolute Nucleated RBC 10^3/ul Nucleated RBC % INR (Anticoag Therapy) (0.77-1.02) APTT (26.0-36.3) seconds D-Dimer, Quantitative (Less Than 230) ng/mL Sodium (135-145) mmol/L Potassium (3.5-5.0) mmol/L Chloride (101-111) mmol/L Carbon Dioxide (22-32) mmol/L Anion Gap (2-11) mmol/L BUN (6-24) mg/dL Creatinine (0.51-0.95) mg/dL Est GFR ( Amer) (>60) Est GFR (Non-Af Amer) (>60) BUN/Creatinine Ratio (8-20) Glucose (70-100) mg/dL Lactic Acid 1.6 (0.5-2.0) mmol/L Calcium (8.6-10.3) mg/dL Total Bilirubin (0.2-1.0) mg/dL AST (13-39) U/L ALT (7-52) U/L Alkaline Phosphatase (34-104) U/L Troponin I (<0.04) ng/mL Total Protein (6.4-8.9) g/dL Albumin (3.2-5.2) g/dL Globulin (2-4) g/dL Albumin/Globulin Ratio (1-3) Lipase (11.0-82.0) U/L Beta HCG, Quant mIU/mL Microbiology and Other Data: Microbiology 09/24/18 23:23 Legionella Urinary Antigen - Final Urine Negative Legionella Antigen Streptococcus pneumoniae Ag Screen - Final Negative S. pneumo Antigen Assess/Plan/Problems-Billing Assessment: 38 yo F with sepsis secondary to multilobar pneumonia. - Patient Problems (1) Pneumonia Comment: With acute hypoxemic resp failure On 8L/min high flow NC 09/26 AM. HIV 1 & 2 both neg. TMP-SMX and prednisone stopped 09/26/18. Continue pip/jasbir, doxy. PICC to be placed (2) Alcohol abuse Comment: Pt states she last consumed alcohol 7-10 days ago. [facility] protocol d/c' d. (3) Chronic back pain Comment: - Continue gabapentin and baclofen. Oxycodone 10 mg po increased to Q3H (4) Substance abuse Comment: suspect pt may be using more opiates at homethan she admits. Pt requesting IV dilaudid for pain. Reassured that Oxycodone 10 mg Q3 is a significant dose already. Offered pain management conult. Pt refused. (5) DVT prophylaxis Comment: HSQ Status and Disposition: inpatient
[2018-09-27] MEDS: ZOSYN 3.375 GM x ONE DOSE over 30 miuntes IVPB ×4 (15:47→16:40)
[2018-09-27] MEDS: Nicotine Inhaler* 10 MG AMP INH PRN (16:03)
[2018-09-27] MEDS: NS 0.9% 1000 ML** 1,000 ML IV SCH (16:39)
[2018-09-27] MEDS: methylPREDNISolone SOD 40 MG* 1 ML VIAL IV SCH (19:48)
[2018-09-27] MEDS: QUEtiapine TAB* 25 MG PO SCH (21:07)
[2018-09-27] MEDS: Ondansetron INJ* 2 MG/ML VIAL IV PRN (21:49)
[2018-09-27] MEDS ORDERED: Furosemide IV* 10 MG/ML VIAL (40 MG) IV ONE (22:29)
[2018-09-27] MEDS ORDERED: Albuterol 2.5 MG/3 ML NEB.SOL* (0.083%) INH PRN (22:31)
[2018-09-27] MEDS ORDERED: Albuterol/Ipratropium NEB.SOL* Albuterol 2.5 MG/Ipratropium 0.5 MG 3 ML INH PRN (22:31)
--- NOTE | 2018-09-27 22:33 | PN ---
Progress Note - Progress Note Date of Service: 09/27/18 Note: Patient on max vapotherm settings, shallow respirations and desat's with exertion. Coarse rhonchi with poor aeration. Will give Lasix 40 mg x 1. Start Duoneb and increase frequency of Albuterol. Patient already on solumedrol. Refusing to transition to BiPAP. Will continue to monitor closely.
[2018-09-27] MEDS ORDERED: Furosemide IV* 10 MG/ML VIAL (40 MG) ONE (22:54)
[2018-09-27] MEDS: hydrOXYzine HCL TAB* 25 MG PO SCH (22:59)
[2018-09-28] MEDS: ZOSYN 3.375 GM Q8H per EXTENDED INFUSION IVPB SCH ×6 (04:13→20:51)
[2018-09-28] MEDS: oxyCODONE TAB* 5 MG TAB PO PRN ×4 (04:13→15:59)
[2018-09-28] MEDS: CLOTRIMAZOLE PO SCH ×5 (06:27→21:44)
[2018-09-28] MEDS: methylPREDNISolone SOD 40 MG* 1 ML VIAL IV SCH (08:02)
[2018-09-28] MEDS: DOXYcycline CAP(*) 100 MG PO SCH ×2 (08:06→21:04)
[2018-09-28] MEDS: Gabapentin CAP(*) 300 MG PO SCH ×3 (08:06→21:05)
[2018-09-28] MEDS: Baclofen TAB* 10 MG PO PRN (08:10)
[2018-09-28] MEDS: Benzonatate CAP* 100 MG PO SCH ×3 (08:11→21:04)
[2018-09-28] MEDS: Heparin VIAL(*) 5000 UNITS/ML VIAL (FIVE THOUSAND) SUBCUT SCH ×2 (08:13→21:14)
[2018-09-28] MEDS: Thiamine TAB* 100 MG TAB PO SCH (08:13)
[2018-09-28] MEDS: Nicotine PATCH 21 MG/24 HR* PATCH TRANSDERM SCH (08:13)
[2018-09-28] MEDS: Famotidine TAB* 20 MG PO SCH ×2 (08:13→21:04)
[2018-09-28] MEDS: Nicotine Inhaler* 10 MG AMP INH PRN ×3 (08:49→16:00)
[2018-09-28] MEDS: Mouth Piece, Nicotine* 1 EACH CARTRIDGE INH PRN (08:50)
--- NOTE | 2018-09-28 09:58 | PN ---
Subjective Date of Service: 09/28/18 Interval History: Pt feels "OK". Wants to go home tomorrow to see her daughter on Thursday10/01/18. Seems unreasonable in her explanation why she needs to be discharged. Also reported hallucination by AM nurse. Just switched from Vapotherm to high flow sats 89% Received a dose of Lasix 40 mg IV and diuresed 1500 ml Objective Active Medications: Albuterol (Ventolin 2.5 Mg/3 Ml Neb.Apple*) 2.5 mg INH Q2H PRN PRN Reason: SOB/WHEEZING Albuterol/Ipratropium (Duoneb (Albuterol 2.5 Mg/Ipratropium 0.5 Mg)) 1 neb INH Q4H PRN PRN Reason: SOB/WHEEZING Baclofen (Lioresal Tab*) 10 mg PO Q8HR PRN PRN Reason: PAIN Last Admin: 09/28/18 08:10 Dose: 10 mg Benzonatate (Tessalon Cap*) 200 mg PO TID [facility] Last Admin: 09/28/18 08:11 Dose: 200 mg Clotrimazole (Mycelex Ekaterina*) 10 mg PO FIVE TIMES DAILY [facility] Last Admin: 09/28/18 06:27 Dose: Not Given Device (Nicotine Mouth Piece*) 1 each INH .USE W/ CARTRIDGE PRN PRN Reason: WITHDRAWAL - NICOTINE Last Admin: 09/28/18 08:50 Dose: 1 each Doxycycline Hyclate (Vibramycin Cap(*)) 100 mg PO BID [facility] Last Admin: 09/28/18 08:06 Dose: 100 mg Famotidine (Pepcid Tab*) 20 mg PO BID [facility]; Protocol Last Admin: 09/28/18 08:13 Dose: Not Given Gabapentin (Neurontin Cap(*)) 900 mg PO TID [facility] Last Admin: 09/28/18 08:06 Dose: 900 mg Heparin Sodium (Porcine) (Heparin Vial(*)) 5,000 units SUBCUT Q12HR [facility] Last Admin: 09/28/18 08:13 Dose: Not Given Hydroxyzine HCl (Atarax Tab*) 25 mg PO BEDTIME [facility] Last Admin: 09/27/18 22:59 Dose: 25 mg Piperacillin Sod/Tazobactam (Sod 3.375 gm/ Sodium Chloride) 100 mls @ 25 mls/ hr IVPB Q8H [facility] Last Admin: 09/28/18 04:13 Dose: 25 mls/hr Melatonin (Melatonin) 3 mg PO QPM PRN PRN Reason: SLEEP Last Admin: 09/27/18 23:00 Dose: 3 mg Methylprednisolone Sodium Succinate (Solu-Medrol 40 Mg) 40 mg IV Q12H [facility] Last Admin: 09/28/18 08:02 Dose: 40 mg Nicotine (Nicotine Patch 21 Mg/24 Hr*) 1 patch TRANSDERM DAILY@0800 [facility] Last Admin: 09/28/18 08:13 Dose: Not Given Nicotine (Nicotine Inhaler*) 10 mg INH Q2H PRN PRN Reason: CRAVING Last Admin: 09/28/18 08:49 Dose: 10 mg Ondansetron HCl (Zofran Inj*) 4 mg IV Q6H PRN PRN Reason: NAUSEA Last Admin: 09/27/18 21:49 Dose: 4 mg Oxycodone HCl (Roxycodone Tab*) 10 mg PO Q3H PRN PRN Reason: PAIN - MODERATE Last Admin: 09/28/18 08:06 Dose: 10 mg Pharmacy Consult (Zosyn Per Pharmacy*) 1 note FOLLOW UP .ZOSYN PER PHARMACY [facility] Prochlorperazine Edisylate (Compazine Inj*) 5 mg IV Q6H PRN PRN Reason: NAUSEA/VOMITING Last Admin: 09/25/18 12:30 Dose: 5 mg Quetiapine Fumarate (Seroquel Tab*) 25 mg PO BEDTIME [facility] Last Admin: 09/27/18 21:07 Dose: 25 mg Thiamine HCl (Vitamin B-1 Tab*) 100 mg PO DAILY [facility] Last Admin: 09/28/18 08:13 Dose: Not Given Vital Signs - 8 hr 09/28/18 09/28/18 09/28/18 02:00 02:01 03:00 Pulse Rate 101 Respiratory 32 27 30 Rate Blood Pressure (mmHg) O2 Sat by Pulse 98 Oximetry 09/28/18 09/28/18 09/28/18 03:01 04:00 04:01 Pulse Rate 101 94 Respiratory 26 28 28 Rate Blood Pressure (mmHg) O2 Sat by Pulse 99 100 Oximetry 09/28/18 09/28/18 09/28/18 04:18 05:00 06:00 Pulse Rate 105 110 98 Respiratory 32 34 35 Rate Blood Pressure 110/82 (mmHg) O2 Sat by Pulse 97 92 99 Oximetry 09/28/18 09/28/18 09/28/18 07:00 08:00 09:00 Pulse Rate 115 101 Respiratory 33 24 20 Rate Blood Pressure (mmHg) O2 Sat by Pulse 99 100 Oximetry Oxygen Devices in Use Now: High Flow Heated Nasal Cannula Appearance: 38 yo F in nAD, aAO3 Eyes: No Scleral Icterus, PERRLA Ears/Nose/Mouth/Throat: NL Teeth, Lips, Gums, Mucous Membranes Moist Neck: NL Appearance and Movements; NL JVP, Trachea Midline Respiratory: Symmetrical Chest Expansion and Respiratory Effort, - - crackles at b/l mid to lower lungs Cardiovascular: NL Sounds; No Murmurs; No JVD, RRR Abdominal: NL Sounds; No Tenderness; No Distention Lymphatic: No Cervical Adenopathy Extremities: No Edema, No Clubbing, Cyanosis Skin: No Rash or Ulcers, No Nodules or Sclerosis Neurological: Alert and Oriented x 3, NL Muscle Strength and Tone Result Diagrams: 09/27/18 06:01 09/27/18 06:01 Additional Lab and Data: Lab Results 09/24/18 09/24/18 09/24/18 Range/Units 17:52 17:52 17:52 WBC 18.8 H (3.5-10.8) 10^3/uL RBC 4.21 (3.70-4.87) 10^6 /uL Hgb 13.3 (12.0-16.0) g/dL Hct 40 (33-41) % MCV 95 (80-97) fL MCH 32 H (27-31) pg MCHC 33 (31-36) g/dL RDW 15 (10.5-15) % Plt Count 201 (150-450) 10^3/uL MPV 8.3 (7.4-10.4) fL Neut % (Auto) 91.2 % Lymph % (Auto) 4.1 % Fleming % (Auto) 4.2 % Eos % (Auto) 0.3 % Baso % (Auto) 0.2 % Absolute Neuts (auto) 17.1 H (1.5-7.7) 10^3/ul Absolute Lymphs (auto) 0.8 L (1.0-4.8) 10^3/ul Absolute Monos (auto) 0.8 (0-0.8) 10^3/ul Absolute Eos (auto) 0.1 (0-0.6) 10^3/ul Absolute Basos (auto) 0 (0-0.2) 10^3/ul Absolute Nucleated RBC 0 10^3/ul Nucleated RBC % 0 INR (Anticoag Therapy) 0.99 (0.77-1.02) APTT 24.0 L (26.0-36.3) seconds D-Dimer, Quantitative 469 H (Less Than 230) ng/mL Sodium 137 (135-145) mmol/L Potassium 3.8 (3.5-5.0) mmol/L Chloride 108 (101-111) mmol/L Carbon Dioxide 21 L (22-32) mmol/L Anion Gap 8 (2-11) mmol/L BUN 9 (6-24) mg/dL Creatinine 0.74 (0.51-0.95) mg/dL Est GFR ( Amer) 106.9 (>60) Est GFR (Non-Af Amer) 88.3 (>60) BUN/Creatinine Ratio 12.2 (8-20) Glucose 116 H (70-100) mg/dL Lactic Acid (0.5-2.0) mmol/L Calcium 8.4 L (8.6-10.3) mg/dL Total Bilirubin 0.60 (0.2-1.0) mg/dL AST 41 H (13-39) U/L ALT 10 (7-52) U/L Alkaline Phosphatase 121 H (34-104) U/L Troponin I 0.02 (<0.04) ng/mL Total Protein 6.2 L (6.4-8.9) g/dL Albumin 3.3 (3.2-5.2) g/dL Globulin 2.9 (2-4) g/dL Albumin/Globulin Ratio 1.1 (1-3) Lipase < 10 L (11.0-82.0) U/L Beta HCG, Quant < 0.60 mIU/mL 09/24/18 Range/Units 17:52 WBC (3.5-10.8) 10^3/uL RBC (3.70-4.87) 10^6 /uL Hgb (12.0-16.0) g/dL Hct (33-41) % MCV (80-97) fL MCH (27-31) pg MCHC (31-36) g/dL RDW (10.5-15) % Plt Count (150-450) 10^3/uL MPV (7.4-10.4) fL Neut % (Auto) % Lymph % (Auto) % Fleming % (Auto) % Eos % (Auto) % Baso % (Auto) % Absolute Neuts (auto) (1.5-7.7) 10^3/ul Absolute Lymphs (auto) (1.0-4.8) 10^3/ul Absolute Monos (auto) (0-0.8) 10^3/ul Absolute Eos (auto) (0-0.6) 10^3/ul Absolute Basos (auto) (0-0.2) 10^3/ul Absolute Nucleated RBC 10^3/ul Nucleated RBC % INR (Anticoag Therapy) (0.77-1.02) APTT (26.0-36.3) seconds D-Dimer, Quantitative (Less Than 230) ng/mL Sodium (135-145) mmol/L Potassium (3.5-5.0) mmol/L Chloride (101-111) mmol/L Carbon Dioxide (22-32) mmol/L Anion Gap (2-11) mmol/L BUN (6-24) mg/dL Creatinine (0.51-0.95) mg/dL Est GFR ( Amer) (>60) Est GFR (Non-Af Amer) (>60) BUN/Creatinine Ratio (8-20) Glucose (70-100) mg/dL Lactic Acid 1.6 (0.5-2.0) mmol/L Calcium (8.6-10.3) mg/dL Total Bilirubin (0.2-1.0) mg/dL AST (13-39) U/L ALT (7-52) U/L Alkaline Phosphatase (34-104) U/L Troponin I (<0.04) ng/mL Total Protein (6.4-8.9) g/dL Albumin (3.2-5.2) g/dL Globulin (2-4) g/dL Albumin/Globulin Ratio (1-3) Lipase (11.0-82.0) U/L Beta HCG, Quant mIU/mL Microbiology and Other Data: Microbiology 09/24/18 23:23 Legionella Urinary Antigen - Final Urine Negative Legionella Antigen Streptococcus pneumoniae Ag Screen - Final Negative S. pneumo Antigen Assess/Plan/Problems-Billing Assessment: 38 yo F with sepsis secondary to multilobar pneumonia. - Patient Problems (1) Pneumonia Comment: With acute hypoxemic resp failure Had worsening of hypoxemia on 09/27/18 with transfer to ICU back on Vapotherm, diuresed 1500 ml after a dose of IV Lasix on 09/27/18 night. Solu Medrol restarted on 09/27/18. Continue pip/jasbir, doxy. PICC to be placed (2) Alcohol abuse Comment: Pt states she last consumed alcohol 7-10 days ago. [facility] protocol d/c' d. (3) Chronic back pain Comment: - Continue gabapentin and baclofen. Oxycodone 10 mg po increased to Q3H (4) Substance abuse Comment: suspect pt may be using more opiates at home that she admits to. Pt requested IV dilaudid for pain. Reassured that Oxycodone 10 mg Q3 is a significant dose already. Offered pain management conult. Pt refused. (5) DVT prophylaxis Comment: HSQ Status and Disposition: inpatient
[2018-09-28] MEDS ORDERED: Dexmedetomidine* 400 MCG in NS 0.9% 100 ML* 96 ML IVPB SCH (16:00)
[2018-09-28] MEDS ORDERED: Midazolam* 1 MG/ML 2 ML VIAL (2 MG) ONE ×2 (17:32→18:54)
--- NOTE | 2018-09-28 17:55 | PN ---
Date of Service: 09/28/18 - 5 Critical Care Services: 38 yo F with PMH of polysubstance abuse, chronic pain and episodes of pancreatitis presented to the ED on 09/24 with shortness of breath. Per ED note , dyspnea started that day, however mom now reports she had seen an outpatient physician for same complaint several days before. Also reported Cough and chest pain, N/v x 1 week. Recently diagnosed with thrush after a course of antibiotics for UTI. 09/25: Stable on vapotherm. Pt insists last drink 7 days ago. [facility] protocol discontinued 09/26: HIV negative, Bactrim discontinued 09/27: increased hypoxia. Lasix x1. On max Vapotherm, refusing BiPAP. Refusing lab draws and IVs. PICC placed. 09/28: Overnight patient observed to be talking to TV remove as if it were a cellphone, holding conversation with her mom. Placing nasal cannula on head and in mouth. Today agitated and stating she is going home tomorrow. Unable to understand medical need to stay. Mom present at bedside, states daughter drinks heavily and is asking for a psychiatry consult. Vital Signs: Temp Pulse Resp BP SpO2 FiO2 97.6 F 100 30 115/91 97 80 09/28/18 00:00 09/28/18 16:00 09/28/18 15:00 09/28/18 12:47 09/28/18 16:00 09/28 15:06 Physical Exam: Gen: Sitting on bed facing away from myself, nurse and mom. Refuses to join in conversation as we are "liars" HEENT: Vapotherm NC in place Lungs: nonlabored breathing Cardiac: RRR Abdomen: nondistended Extremities: moving equally Neuro: Irritable, refusing to engage in conversation then complaining that we are talking about her. Fluid Balance (Past 24 Hours): I= O= Net Intake & Output 09/26/18 09/27/18 09/28/18 09/29/18 06:59 06:59 06:59 06:59 Intake Total 2948 3315 571 75 Output Total 9029 597 5293 Balance 1048 0245 -4849 75 Weight 136 lb 0.403 oz 129 lb 12.8 oz Intake: IV Fluids 1746 201 42 NS 1746 65 42 Zosyn 136 IVPB 2578 1113 33 Bactrim 550 NS 1853 1013 Zosyn 175 100 33 Oral 370 456 370 Output: Urine 1869 086 9842 Other: Estimated Void Small Date of Last Bowel 09/26/18 Movement # Bowel Movements 0 Estimated Stool Amount Small # Voids 0 Studies: 09/27 CXR - progressive pneumonia bilaterally 09/24 CTA chest - no visible PE. Stable bilateral interstitial and airspace opacities suspicious for pulmonary edema or pneumonitis. Mild mediastinal lymphadenopathy. 09/24 CXR - confluent and multifocal consolidation throughout lungs bilaterally Nutrition: Regular diet Impression: 38 yo F with PMH of polysubstance abuse and pancreatitis now with cough and shortness of breath, admitted on 09/24 with multilobal pneumonia. Now requiring Vapotherm to maintain adequate oxygenation. Plan: Cardiovascular: (1) Sinus tachycardia secondary to agitation -- HR 94-126 -- SBP 102-135 -- Telemetry Home meds: None Pulmonary: (1) Acute hypoxic respiratory failure; (2) Community acquired multilobal pneumonia; (3) Tobacco abuse -- RR 10-40 -- sats 83-100 on Vapotherm -- Desaturates rapidly when vapotherm removed -- CXR 09/27: progressive pneumonia bilaterally -- Duonebs -- Benzonatate -- Nicotine inhaler and patch Home meds: Albuterol Gastrointestinal: (1) hx of pancreatitis -- diet: eEgular diet -- bowel regimen: None -- ulcer prophylaxis: Famotidine -- Zofran as needed Home meds: Zofran, Zantac Endocrine: No acute issues -- monitor BGs -- Methylprednisolone, discontinue in case steriods may be contributing to encephalopathy Home meds: None Renal: No acute issues -- UOP: 148 ml/hr -- I/O:571 ml in / 3550 ml out -- Cr 0.67 on 09/27 -- Lytes on 09/27 Na 138 K 3.6 Ca 8.0 Home meds: None Infectious disease: (1) Community acquired multilobar pneumonia -- Tmax 97.6 -- WBC 8.4 on 09/27, down from 13.1 -- Micro 09/25 MRSA screen negative Flu in process Blood NGTD 09/24 Legionella Ag negative Strep Pna Ag negative Blood negative -- ABX Doxycycline Zosyn Clotriminazole yaima Home meds: Nystatin Neurologic: (1) Acute delirium with hallucinatinons, likely alcohol withdrawal delirium; (2) Substance abuse disorder including alcohol; (3) Chronic pain syndrome; (4) Chronic anxiety -- PRN Baclofen -- Gabapentin -- Oxycodone as needed -- Thiamine -- Seroquel, Hydroxyzine and PRN Melatonin QHS -- Psychiatry consult to establish if patient competent to make medical decisions and also at mom's request. Home meds: Hydroxyzine, Baclofen, Seroquel, Gabapentin, Melatonin, Diclofenac, Oxycodone Hematological: (1) Anemia -- Hgb 10.9 from 12.1 on 09/27 -- Plt 225 on 09/27 -- Coags INR 0.99 aPTT 24 Ddimer 469 -- DVT prophylaxis: SQ Heparin Home meds: None Metabolic: No acute issues Home meds: None Deep vein thrombosis prophylaxis: SQ Heparin Dietary: Famotidine Condition: Serious Prognosis: guarded Code status: full Disposition: continue ICU care Mom updated at bedside regarding interval events and plan of care. Patient refused to participate in discussion. Mom concerned that her daughter is agitated and confused. When explaining that substance withdrawal can cause hallucinations the patient angrily stated that she hadn't taken anything in a while that would cause problems and that we were liars to say so. Her mom stated aside, that she is actively and heavily drinking. The patient also states that she is not having any hallucinations, when corrected that she in fact was having some hallucinations and was witnessed on several occasions to do things like talk to the TV remote she again stated we were liars and she could talk to her mom however she wanted. She was unable to understand, or unwilling to discuss, that the TV remote did not connect to her mom. Precedex gtt increased. Psych consult pending both at request of mom and also to establish if she has competence. Cumulative time spent in the care of this patient (excluding any procedure time) : at least 50 minutes. Patient care included clinical interview (with patient and/or family), bedside exam of the patient, review of labs, x-rays, and other ancillary data, coordination of (respiratory, nursing care, review of patient's records, discussion regarding patients management with involved consultants, primary physician, pharmacists, and other healthcare personnel (dietary, case management , physical/occupational therapy etc.)
[2018-09-28] MEDS ORDERED: Midazolam* 1 MG/ML 2 ML VIAL (2 MG) IV ONE (18:00)
[2018-09-28] MEDS ORDERED: Midazolam* 1 MG/ML 5 ML VIAL (5 MG) IV PRN (18:52)
[2018-09-28] MEDS ORDERED: QUEtiapine TAB* 100 MG PO SCH (21:00)
--- NOTE | 2018-09-28 21:00 | CONS ---
CONSULTATION REPORT: DATE OF ADMISSION: 09/24/18 DATE OF CONSULT: 09/28/18 PRIMARY CARE PROVIDER: Malina Blount NP PHYSICIAN REQUESTING CONSULT: Dr. Chasidy Ivy. CONSULTING SERVICE: Infectious Disease. ATTENDING PHYSICIAN: Dr. Bobby Gutierrez * (dictated by Janice Lancaster NP). REASON FOR CONSULT: Community-acquired pneumonia with associated sepsis and hypoxic respiratory failure. IMPRESSION: 1. Community-acquired pneumonia with associated sepsis. I suspect this represents a viral pneumonia based on her complaints and presenting symptoms of upper respiratory infection symptoms that progressed. We will check an adenovirus PCR and Human Metapneumovirus PCR. Her imaging does not show a typical pattern for pneumonia with diffuse bilateral lung involvement and the differential includes a noninfectious cause such as acute respiratory distress syndrome and another possibility could be a fungal pneumonia such as Pneumocystis pneumonia. She is not immunocompromised and her HIV testing is negative. So I have a low suspicion for Pneumocystis pneumonia. Urine antigens for S. pneumo and legionella are negative. Pneumocystis PCR and Sputum culture pending. Afebrile since admission and leukocytosis has resolved. 2. Acute hypoxic respiratory failure requiring Vapotherm. 3. Chronic pancreatitis. 4. Asthma. 5. Chronic back pain. 6. Delirium. RECOMMENDATIONS/PLAN: I recommend continuing doxycycline and Zosyn for now. Further recommendations based off the PCR results. HISTORY OF PRESENT ILLNESS: Ms. Carlton is a 38-year-old female with past medical history significant for recurrent alcoholic chronic pancreatitis, asthma , chronic back pain, and anxiety, who presented to the emergency room with complaints of shortness of breath. It is to note that the majority of this HPI comes from the chart as the patient is unwilling to cooperate in the gathering of information at this time. According to her H and P, she developed a sore throat and secretions 2- 1/2 weeks ago. These symptoms persisted and developed into a cough with chest congestion. She was seen by her primary care provider and diagnosed with oral thrush. She was started on nystatin and she tried that once and vomited afterwards, became more short of breath with bilateral pleuritic chest pain and she presented to the emergency room, was found to be tachycardia and tachypneic requiring supplemental oxygen. She was admitted under the hospitalist service. While in the hospital, she has been afebrile. She initially had leukocytosis of 18,800, which has now resolved. She had a CRP on 09/25/18 that was 246 and down to 118 on 09/27/18. Influenza A and B negative. HIV 1 and 2 antibodies negative. She was initially treated with Zosyn and doxycycline. She had legionella and pneumococcal urine antigens that were negative. She was placed on Vapotherm. She was also started on Bactrim due to the bilateral infiltrates with ground-glass opacity with concern for Pneumocystis pneumonia. The patient was doing better and on 09/26/18 Bactrim and doxycycline, and Zosyn were discontinued. She was switched to cefdinir, but became hypoxic again once the previous antibiotics were discontinued requiring Vapotherm. She was diuresed with IV Lasix overnight last night, 09/27/18. Solu-Medrol was resumed and she was placed back on Zosyn and doxycycline. She has been treated for alcohol withdrawal during her hospital stay with WAM protocol discontinued. She denies fever, chills, chest pain with the exception of when she is coughing, joint pain , muscle pain, rash, diarrhea, constipation, or urinary symptoms. She does report occasional cough. She is showing signs of delirium. PAST MEDICAL HISTORY: 1. Chronic pancreatitis. 2. Asthma. 3. Chronic back pain. 4. Anxiety. PAST SURGICAL HISTORY: Status post ORIF of her right foot. MEDICATIONS: Home medications include: 1. Baclofen 10 mg by mouth every 8 hours as needed for muscle spasms. 2. Zofran 4 mg by mouth every 8 hours as needed for nausea. 3. Melatonin 3 mg by mouth every evening as needed for sleep. 4. Neurontin 900 mg by mouth 3 times daily. 5. Flector 1.3% patch, 1 patch topical daily as needed for pain. 6. Hydroxyzine 25 mg by mouth every evening. 7. Ranitidine 150 mg by mouth twice daily. 8. Seroquel 25 mg by mouth at bedtime. 9. Oxycodone 5 mg by mouth twice daily. 10. Nystatin suspension. 11. Albuterol HFA inhaler 1 puff inhalation every 6 hours as needed for shortness of breath. Hospital medications: 1. Albuterol 2.5 mg inhalation every 2 hours as needed for shortness of breath or wheezing. 2. DuoNeb 1 nebulizer inhalation every 4 hours as needed for shortness of breath or wheeze. 3. Baclofen 10 mg by mouth every 8 hours as needed for pain. 4. Tessalon capsules 100 mg by mouth 3 times daily. 5. Clotrimazole 10 mg by mouth 5 times daily. 6. Precedex IV. 7. Doxycycline 100 mg by mouth twice daily. 8. Famotidine 20 mg by mouth twice daily. 9. Gabapentin 900 mg by mouth 3 times daily. 10. Heparin 5000 units subcutaneous every 12 hours. 11. Hydroxyzine 25 mg by mouth at bedtime. 12. Melatonin 3 mg by mouth at bedtime as needed for sleep. 13. Solu-Medrol 40 mg IV every 12 hours. 14. Nicotine patch 21 mg transdermal daily. 15. Nicotine inhaler 10 mg inhalation every 2 hours as needed for nicotine craving. 16. Zofran 4 mg IV every 6 hours as needed for nausea. 17. Oxycodone 10 mg by mouth every 3 hours as needed for pain. 18. Zosyn 3.375 g IV every 8 hours. 19. Compazine 5 mg IV every 6 hours as needed for nausea. 20. Seroquel 25 mg by mouth at bedtime. 21. Vitamin D 100 mg by mouth daily. ALLERGIES: AZITHROMYCIN caused difficulty breathing, CEPHALEXIN caused palpitations, CIPRO caused difficulty breathing, CODEINE, LORAZEPAM, and ACETAMINOPHEN. FAMILY HISTORY: She denies any family history of recurrent infections. She is unsure of any family history of heart disease, diabetes, or cancer. SOCIAL HISTORY: She is a current smoker, smoking 1 pack a day for the last 20 years. She states she occasionally drinks alcohol. According to her history and physical, her last drink was approximately a week and a half ago. She denies recreational drug use. REVIEW OF SYSTEMS: I performed a 10-point review of systems. All the pertinent positives and negatives are mentioned in the history of present illness. The remaining review of systems is negative. She denies any recent travel. PHYSICAL EXAM: Vital Signs: Temperature 97.6, heart rate 91, respiratory rate 18, O2 sat 96% on Vapotherm at 20 L per minute and 80% oxygen. General: The patient is alert, appears to be in no acute distress, sitting on the side of the bed. Head: Normocephalic, atraumatic. ENT: Pupils are equal and reactive to light. Extraocular movements are intact. Neck: Supple. No lymphadenopathy noted. Neurological: Cranial nerves II through XII are grossly intact. She is alert. Cardiovascular: Regular rate and rhythm. S1, S2 present. No murmurs, rubs, or gallops heard. Respiratory: No accessory muscle use. The lungs are clear to auscultation bilaterally in the upper lobes. She had poor respiratory effort when trying to auscultate the lower lobes, crackles in bilateral bases. Abdomen: Soft, nontender, nondistended. Bowel sounds present x4. Extremities : No lower extremity edema. Musculoskeletal: No clubbing or cyanosis noted. She exhibits good strength in all extremities. Psychological: The patient is calm, but not cooperative with exam. Skin: No rashes or abnormalities seen on the exposed skin. DIAGNOSTIC STUDIES/LAB DATA: Sodium 138, potassium 3.6, chloride 111, CO2 of 22 , BUN 10, creatinine 0.67, glucose 76. CRP 118.26 on 09/27/18. White blood cell count 8.4, hemoglobin 10.9, hematocrit 33, platelet count 225. Influenza A and B negative. HIV 1 and 2 nonreactive. Chest x-ray from 09/27/18 reveals progressive pneumonia bilateral, most severe in the left base. Please see impression and recommendations outlined above. Thank you for asking us to see Ms. Carlton in consultation. TIME SPENT: Time spent for this consultation was approximately 45 minutes, greater than half of that was spent with the patient discussing medications, past medical history, the events leading to her arrival today, and performing a physical examination. The case has been reviewed with the attending, Dr. Gutierrez, who agrees with the plan of care. Reviewed by AHMET ISSA 09/30/18 0750 [id number]/[facility] #: [id number] LILI
[2018-09-28] MEDS: hydrOXYzine HCL TAB* 25 MG PO SCH (21:05)
[2018-09-28] MEDS: Dexmedetomidine* 400 MCG in NS 0.9% 100 ML* 96 ML IVPB SCH (21:21)
[2018-09-28] MEDS: Midazolam* 1 MG/ML 2 ML VIAL (2 MG) IV PRN (21:40)
[2018-09-29] MEDS: Midazolam* 1 MG/ML 2 ML VIAL (2 MG) IV PRN ×16 (00:29→23:36)
[2018-09-29] MEDS: Dexmedetomidine* 400 MCG in NS 0.9% 100 ML* 96 ML IVPB SCH ×4 (03:45→19:25)
[2018-09-29] MEDS: ZOSYN 3.375 GM Q8H per EXTENDED INFUSION IVPB SCH ×6 (04:05→21:15)
[2018-09-29 04:40] LABS: ABS Basophils 0 10^3/ul (0-0.2); ABS Eosinophils 0.5 10^3/ul (0-0.6); ABS Lymphocytes 1.5 10^3/ul (1.0-4.8); ABS Monocytes 0.7 10^3/ul (0-0.8); ABS Neutrophils 10.4 10^3/ul (1.5-7.7); ABS Nucleated RBC 0 10^3/ul; Eosinophil % 3.7 %; Hematocrit 36 % (33-41); Hemoglobin 11.9 g/dL (12.0-16.0); Lymphocyte % 11.6 %; Mean Corpuscular HGB Conc 33 g/dL (31-36); Mean Corpuscular Hemoglobin 31 pg (27-31); Mean Corpuscular Volume 93 fL (80-97); Mean Platelet Volume 8.2 fL (7.4-10.4); Nucleated Red Blood Cells % 0.1; Platelet Count 341 10^3/uL (150-450); Red Blood Count 3.88 10^6 /uL (3.70-4.87); Red Cell Distribution Width 15 % (10.5-15); White Blood Count 13.2 10^3/uL (3.5-10.8)
[2018-09-29 04:56] LABS: BUN/Creatinine Ratio 34.4 (8-20); C Reactive Protein 139.74 mg/L (<8.01); Calcium 8.5 mg/dL (8.6-10.3); EGFR African American 133.5 (>60); EGFR Non-African American 110.4 (>60); Potassium 3.4 mmol/L (3.5-5.0)
[2018-09-29] MEDS: CLOTRIMAZOLE PO SCH ×6 (04:56→21:19)
[2018-09-29] MEDS: Nicotine PATCH 21 MG/24 HR* PATCH TRANSDERM SCH (07:27)
--- NOTE | 2018-09-29 08:23 | PN ---
Date of Service: 09/29/18 - HD 6 Critical Care Services: 38 yo F with PMH of polysubstance abuse, chronic pain and episodes of pancreatitis presented to the ED on 09/24 with shortness of breath. Per ED note , dyspnea started that day, however mom now reports she had seen an outpatient physician for same complaint several days before. Also reported Cough and chest pain, N/v x 1 week. Recently diagnosed with thrush after a course of antibiotics for UTI. 09/25: Stable on vapotherm. Pt insists last drink 7 days ago. WAM protocol discontinued 09/26: HIV negative, Bactrim discontinued 09/27: increased hypoxia. Lasix x1. On max Vapotherm, refusing BiPAP. Refusing lab draws and IVs. PICC placed. 09/28: Overnight patient observed to be talking to TV remove as if it were a cellphone, holding conversation with her mom. Placing nasal cannula on head and in mouth. Today agitated and stating she is going home tomorrow. Unable to understand medical need to stay. Mom present at bedside, states daughter drinks heavily and is asking for a psychiatry consult. Steriods discontinued to rule out any potential contribution to altered mentla state 09/29: No overnight events Vital Signs: Temp Pulse Resp BP SpO2 FiO2 97.8 F 62 21 151/97 99 100 09/29/18 07:42 09/29/18 07:43 09/29/18 07:43 09/29/18 07:00 09/29/18 07:43 09/29 07:43 Physical Exam: Gen: resting comfortably HEENT: vapotherm cannula in place Lungs: nonlabored breathing Cardiac: RRR Abdomen: nondistended Extremities: well perfused Neuro: sleeping comfortably Fluid Balance (Past 24 Hours): I= O= Net Intake & Output 09/27/18 09/28/18 09/29/18 09/30/18 06:59 06:59 06:59 06:59 Intake Total 3315 571 538 Output Total 500 3550 Balance 0115 -2299 538 Weight 129 lb 12.8 oz 131 lb 3.2 oz Intake: IV Fluids 1746 201 91 NS 1746 65 42 Zosyn 136 49 IVPB 1113 228 NS 1013 Zosyn 100 228 Medicated IV 219 CC - Dexmedetomidine/ 219 Precedex Oral 456 370 Output: Urine 500 3550 Other: Estimated Void Small Date of Last Bowel 09/26/18 Movement # Bowel Movements 0 Estimated Stool Amount Small # Voids 0 Labs: Laboratory Results - last 24 hr 09/29/18 09/29/18 04:26 04:26 WBC 13.2 H RBC 3.88 Hgb 11.9 L Hct 36 MCV 93 MCH 31 MCHC 33 RDW 15 Plt Count 341 MPV 8.2 Neut % (Auto) 79.0 Lymph % (Auto) 11.6 [place] % (Auto) 5.4 Eos % (Auto) 3.7 Baso % (Auto) 0.3 Absolute Neuts (auto) 10.4 H Absolute Lymphs (auto) 1.5 Absolute Monos (auto) 0.7 Absolute Eos (auto) 0.5 Absolute Basos (auto) 0 Absolute Nucleated RBC 0 Nucleated RBC % 0.1 Sodium 137 Potassium 3.4 L Chloride 104 Carbon Dioxide 28 Anion Gap 5 BUN 21 Creatinine 0.61 Est GFR ( Amer) 133.5 Est GFR (Non-Af Amer) 110.4 BUN/Creatinine Ratio 34.4 H Glucose 117 H Calcium 8.5 L C-Reactive Protein 139.74 H Studies: 09/27 CXR - progressive pneumonia bilaterally 09/24 CTA chest - no visible PE. Stable bilateral interstitial and airspace opacities suspicious for pulmonary edema or pneumonitis. Mild mediastinal lymphadenopathy. 09/24 CXR - confluent and multifocal consolidation throughout lungs bilaterally Nutrition: Regular diet Impression: 38 yo F with PMH of polysubstance abuse and pancreatitis now with cough and shortness of breath, admitted on 09/24 with multilobar pneumonia. Requiring Vapotherm to maintain adequate oxygenation. Plan: Cardiovascular: (1) Sinus tachycardia secondary to agitation -- HR 58-123 -- SBP 110-154 -- Telemetry Home meds: None Pulmonary: (1) Acute hypoxic respiratory failure; (2) Community acquired multilobal pneumonia; (3) Tobacco abuse -- RR 10-41 -- sats 84-100 on Vapotherm [flow 30 down from 40 yesterday, FiO2 100%] -- Desaturates rapidly when vapotherm removed -- CXR 09/27: progressive pneumonia bilaterally -- Duonebs -- Benzonatate -- Nicotine inhaler and patch Home meds: Albuterol Gastrointestinal: (1) hx of pancreatitis -- diet: Regular diet -- bowel regimen: None -- ulcer prophylaxis: Famotidine -- Zofran as needed Home meds: Zofran, Zantac Endocrine: No acute issues -- monitor BGs -- Methylprednisolone, discontinued in case steriods may be contributing to encephalopathy Home meds: None Renal: (1) Hypokalemia; (2) Hypocalcemia -- UOP: unrecorded (pt noncompliant with saving urine for measurement) -- Cr 0.61 from 0.67 -- Lytes Na 137 from 138 K 3.4 Ca 8.5 Home meds: None Infectious disease: (1) Community acquired multilobar pneumonia -- Tmax 97.9 -- WBC 13.2 from 8.4 from 13.1 -- CRP 139.74 from 118.26 from 246.96 -- Micro 09/25 MRSA screen negative Flu in process Blood NGTD 09/24 Legionella Ag negative Strep Pna Ag negative Blood negative -- ABX Doxycycline Zosyn Clotrimazole yaima Home meds: Nystatin Neurologic: (1) Acute delirium with hallucinatinons, likely alcohol withdrawal delirium; (2) Substance abuse disorder including alcohol; (3) Chronic pain syndrome; (4) Chronic anxiety -- PRN Baclofen -- Gabapentin -- Oxycodone as needed -- Thiamine -- Seroquel, Hydroxyzine and PRN Melatonin QHS -- Psychiatry consult to establish if patient competent to make medical decisions and also at mom's request. Home meds: Hydroxyzine, Baclofen, Seroquel, Gabapentin, Melatonin, Diclofenac, Oxycodone Hematological: (1) Anemia -- Hgb 11.9 from 10.9 -- Plt 341 from 225 -- DVT prophylaxis: SQ Heparin Home meds: None Metabolic: No acute issues Home meds: None Deep vein thrombosis prophylaxis: SQ Heparin Dietary: Famotidine Condition: Serious Prognosis: guarded Code status: full Disposition: continue ICU care Mom updated at bedside regarding interval events and plan of care. Patient refused to participate in discussion. Mom concerned that her daughter is agitated and confused. When explaining that substance withdrawal can cause hallucinations the patient angrily stated that she hadn't taken anything in a while that would cause problems and that we were liars to say so. Her mom stated aside, that she is actively and heavily drinking. The patient also states that she is not having any hallucinations, when corrected that she in fact was having some hallucinations and was witnessed on several occasions to do things like talk to the TV remote she again stated we were liars and she could talk to her mom however she wanted. She was unable to understand, or unwilling to discuss, that the TV remote did not connect to her mom. Precedex gtt increased. Psych consult pending both at request of mom and also to establish if she has competence. Cumulative time spent in the care of this patient (excluding any procedure time) : at least 50 minutes. Patient care included clinical interview (with patient and/or family), bedside exam of the patient, review of labs, x-rays, and other ancillary data, coordination of (respiratory, nursing care, review of patient's records, discussion regarding patients management with involved consultants, primary physician, pharmacists, and other healthcare personnel (dietary, case management , physical/occupational therapy etc.)
[2018-09-29] MEDS ORDERED: Calcium Gluconate INJ* 1 GM in NS 0.9% 100 ML* 100 ML IV ONE (08:32)
[2018-09-29] MEDS ORDERED: KCL 10 MEQ/50 ML IVPREMIX* 10 MEQ/50 ML BAG IV SCH (09:00)
[2018-09-29] MEDS ORDERED: Haloperidol INJ IV/IM* 5 MG/ML AMP IV SLOW PU ONE (09:00)
[2018-09-29] MEDS ORDERED: Ziprasidone IM INJ* 20 MG/ML VIAL ONE (09:47)
[2018-09-29] MEDS ORDERED: Haloperidol INJ IV/IM* 5 MG/ML AMP ONE (09:48)
--- NOTE | 2018-09-29 10:16 | PN ---
Subjective Date of Service: 09/29/18 Interval History: Pt is still confused, asking where she is. seen with her mother by the bedside. Wants to take her 02 off, but agrees to keep it on after RN explanation that she needs it. C/o no pain. Objective Active Medications: Albuterol (Ventolin 2.5 Mg/3 Ml Neb.Apple*) 2.5 mg INH Q2H PRN PRN Reason: SOB/WHEEZING Albuterol/Ipratropium (Duoneb (Albuterol 2.5 Mg/Ipratropium 0.5 Mg)) 1 neb INH Q4H PRN PRN Reason: SOB/WHEEZING Baclofen (Lioresal Tab*) 10 mg PO Q8HR PRN PRN Reason: PAIN Last Admin: 09/28/18 08:10 Dose: 10 mg Benzonatate (Tessalon Cap*) 200 mg PO TID [facility] Last Admin: 09/28/18 21:04 Dose: Not Given Clotrimazole (Mycelex Ekaterina*) 10 mg PO FIVE TIMES DAILY [facility] Last Admin: 09/29/18 04:56 Dose: Not Given Device (Nicotine Mouth Piece*) 1 each INH .USE W/ CARTRIDGE PRN PRN Reason: WITHDRAWAL - NICOTINE Last Admin: 09/28/18 08:50 Dose: 1 each Doxycycline Hyclate (Vibramycin Cap(*)) 100 mg PO BID [facility] Last Admin: 09/28/18 21:04 Dose: Not Given Famotidine (Pepcid Tab*) 20 mg PO BID [facility]; Protocol Last Admin: 09/28/18 21:04 Dose: Not Given Gabapentin (Neurontin Cap(*)) 900 mg PO TID [facility] Last Admin: 09/28/18 21:05 Dose: Not Given Heparin Sodium (Porcine) (Heparin Vial(*)) 5,000 units SUBCUT Q12HR [facility] Last Admin: 09/28/18 21:14 Dose: 5,000 units Hydroxyzine HCl (Atarax Tab*) 25 mg PO BEDTIME [facility] Last Admin: 09/28/18 21:05 Dose: Not Given Piperacillin Sod/Tazobactam (Sod 3.375 gm/ Sodium Chloride) 100 mls @ 25 mls/ hr IVPB Q8H [facility] Last Admin: 09/29/18 04:05 Dose: 25 mls/hr Dexmedetomidine HCl 400 mcg/ (Sodium Chloride) 100 mls @ 17.66 mls/hr IVPB Q6H [facility]; Protocol Last Admin: 09/29/18 03:45 Dose: 17.66 mls/hr Calcium Gluconate 1 gm/ Sodium (Chloride) 110 mls @ 60 mls/hr IV ONCE ONE Stop: 09/29/18 10:21 Potassium Chloride (Potassium Chloride 20 Meq/100 Ml Ivpremix*) 20 meq in 100 mls @ 50 mls/hr IV Q2H [facility] Stop: 09/29/18 13:59 Melatonin (Melatonin) 3 mg PO QPM PRN PRN Reason: SLEEP Last Admin: 09/27/18 23:00 Dose: 3 mg Midazolam HCl (Versed 2mg/2ml*) 2 mg IV Q1H PRN PRN Reason: agitation or anxiety Last Admin: 09/29/18 09:16 Dose: 2 mg Nicotine (Nicotine Patch 21 Mg/24 Hr*) 1 patch TRANSDERM DAILY@0800 [facility] Last Admin: 09/29/18 07:27 Dose: 1 patch Nicotine (Nicotine Inhaler*) 10 mg INH Q2H PRN PRN Reason: CRAVING Last Admin: 09/28/18 16:00 Dose: 10 mg Ondansetron HCl (Zofran Inj*) 4 mg IV Q6H PRN PRN Reason: NAUSEA Last Admin: 09/27/18 21:49 Dose: 4 mg Oxycodone HCl (Roxycodone Tab*) 10 mg PO Q3H PRN PRN Reason: PAIN - MODERATE Last Admin: 09/28/18 15:59 Dose: 10 mg Pharmacy Consult (Zosyn Per Pharmacy*) 1 note FOLLOW UP .ZOSYN PER PHARMACY [facility] Prochlorperazine Edisylate (Compazine Inj*) 5 mg IV Q6H PRN PRN Reason: NAUSEA/VOMITING Last Admin: 09/25/18 12:30 Dose: 5 mg Quetiapine Fumarate (Seroquel Tab*) 100 mg PO BEDTIME [facility] Last Admin: 09/28/18 21:05 Dose: Not Given Thiamine HCl (Vitamin B-1 Tab*) 100 mg PO DAILY [facility] Last Admin: 09/28/18 08:13 Dose: Not Given Vital Signs - 8 hr 09/29/18 09/29/18 09/29/18 03:00 03:01 03:24 Temperature 96.7 F Pulse Rate 75 75 Respiratory 31 35 Rate Blood Pressure 132/92 (mmHg) O2 Sat by Pulse 85 84 Oximetry 09/29/18 09/29/18 09/29/18 04:00 04:01 04:27 Temperature Pulse Rate 71 66 Respiratory 37 37 26 Rate Blood Pressure 150/94 (mmHg) O2 Sat by Pulse 100 98 Oximetry 09/29/18 09/29/18 09/29/18 05:00 05:01 06:00 Temperature Pulse Rate 61 61 59 Respiratory 38 37 39 Rate Blood Pressure 154/98 (mmHg) O2 Sat by Pulse 95 95 97 Oximetry 09/29/18 09/29/18 09/29/18 06:01 07:00 07:42 Temperature 97.8 F Pulse Rate 59 54 Respiratory 37 38 Rate Blood Pressure 145/113 151/97 (mmHg) O2 Sat by Pulse 98 100 Oximetry 09/29/18 07:43 Temperature Pulse Rate 62 Respiratory 21 Rate Blood Pressure (mmHg) O2 Sat by Pulse 99 Oximetry Oxygen Devices in Use Now: High Flow Heated Nasal Cannula Appearance: 38 yo F in nAD, oriented to self only, conversational Eyes: No Scleral Icterus, PERRLA Ears/Nose/Mouth/Throat: NL Teeth, Lips, Gums, Mucous Membranes Moist Neck: NL Appearance and Movements; NL JVP Respiratory: Symmetrical Chest Expansion and Respiratory Effort, - - decreased breath sound b/l scant b/l crackles at lower to mid lungs Cardiovascular: - - tachy Abdominal: NL Sounds; No Tenderness; No Distention, No Hepatosplenomegaly Lymphatic: No Cervical Adenopathy Extremities: No Clubbing, Cyanosis, - - mild diffuse LE's edema Skin: No Rash or Ulcers, No Nodules or Sclerosis Neurological: NL Muscle Strength and Tone Result Diagrams: 09/29/18 04:26 09/29/18 04:26 Additional Lab and Data: Lab Results 09/24/18 09/24/18 09/24/18 Range/Units 17:52 17:52 17:52 WBC 18.8 H (3.5-10.8) 10^3/uL RBC 4.21 (3.70-4.87) 10^6 /uL Hgb 13.3 (12.0-16.0) g/dL Hct 40 (33-41) % MCV 95 (80-97) fL MCH 32 H (27-31) pg MCHC 33 (31-36) g/dL RDW 15 (10.5-15) % Plt Count 201 (150-450) 10^3/uL MPV 8.3 (7.4-10.4) fL Neut % (Auto) 91.2 % Lymph % (Auto) 4.1 % Woods % (Auto) 4.2 % Eos % (Auto) 0.3 % Baso % (Auto) 0.2 % Absolute Neuts (auto) 17.1 H (1.5-7.7) 10^3/ul Absolute Lymphs (auto) 0.8 L (1.0-4.8) 10^3/ul Absolute Monos (auto) 0.8 (0-0.8) 10^3/ul Absolute Eos (auto) 0.1 (0-0.6) 10^3/ul Absolute Basos (auto) 0 (0-0.2) 10^3/ul Absolute Nucleated RBC 0 10^3/ul Nucleated RBC % 0 INR (Anticoag Therapy) 0.99 (0.77-1.02) APTT 24.0 L (26.0-36.3) seconds D-Dimer, Quantitative 469 H (Less Than 230) ng/mL Sodium 137 (135-145) mmol/L Potassium 3.8 (3.5-5.0) mmol/L Chloride 108 (101-111) mmol/L Carbon Dioxide 21 L (22-32) mmol/L Anion Gap 8 (2-11) mmol/L BUN 9 (6-24) mg/dL Creatinine 0.74 (0.51-0.95) mg/dL Est GFR ( Amer) 106.9 (>60) Est GFR (Non-Af Amer) 88.3 (>60) BUN/Creatinine Ratio 12.2 (8-20) Glucose 116 H (70-100) mg/dL Lactic Acid (0.5-2.0) mmol/L Calcium 8.4 L (8.6-10.3) mg/dL Total Bilirubin 0.60 (0.2-1.0) mg/dL AST 41 H (13-39) U/L ALT 10 (7-52) U/L Alkaline Phosphatase 121 H (34-104) U/L Troponin I 0.02 (<0.04) ng/mL Total Protein 6.2 L (6.4-8.9) g/dL Albumin 3.3 (3.2-5.2) g/dL Globulin 2.9 (2-4) g/dL Albumin/Globulin Ratio 1.1 (1-3) Lipase < 10 L (11.0-82.0) U/L Beta HCG, Quant < 0.60 mIU/mL 09/24/18 Range/Units 17:52 WBC (3.5-10.8) 10^3/uL RBC (3.70-4.87) 10^6 /uL Hgb (12.0-16.0) g/dL Hct (33-41) % MCV (80-97) fL MCH (27-31) pg MCHC (31-36) g/dL RDW (10.5-15) % Plt Count (150-450) 10^3/uL MPV (7.4-10.4) fL Neut % (Auto) % Lymph % (Auto) % [place] % (Auto) % Eos % (Auto) % Baso % (Auto) % Absolute Neuts (auto) (1.5-7.7) 10^3/ul Absolute Lymphs (auto) (1.0-4.8) 10^3/ul Absolute Monos (auto) (0-0.8) 10^3/ul Absolute Eos (auto) (0-0.6) 10^3/ul Absolute Basos (auto) (0-0.2) 10^3/ul Absolute Nucleated RBC 10^3/ul Nucleated RBC % INR (Anticoag Therapy) (0.77-1.02) APTT (26.0-36.3) seconds D-Dimer, Quantitative (Less Than 230) ng/mL Sodium (135-145) mmol/L Potassium (3.5-5.0) mmol/L Chloride (101-111) mmol/L Carbon Dioxide (22-32) mmol/L Anion Gap (2-11) mmol/L BUN (6-24) mg/dL Creatinine (0.51-0.95) mg/dL Est GFR ( Amer) (>60) Est GFR (Non-Af Amer) (>60) BUN/Creatinine Ratio (8-20) Glucose (70-100) mg/dL Lactic Acid 1.6 (0.5-2.0) mmol/L Calcium (8.6-10.3) mg/dL Total Bilirubin (0.2-1.0) mg/dL AST (13-39) U/L ALT (7-52) U/L Alkaline Phosphatase (34-104) U/L Troponin I (<0.04) ng/mL Total Protein (6.4-8.9) g/dL Albumin (3.2-5.2) g/dL Globulin (2-4) g/dL Albumin/Globulin Ratio (1-3) Lipase (11.0-82.0) U/L Beta HCG, Quant mIU/mL Microbiology and Other Data: Microbiology 09/24/18 23:23 Legionella Urinary Antigen - Final Urine Negative Legionella Antigen Streptococcus pneumoniae Ag Screen - Final Negative S. pneumo Antigen Assess/Plan/Problems-Billing Assessment: 38 yo F with sepsis secondary to multilobar pneumonia. - Patient Problems (1) Pneumonia Comment: With acute hypoxemic resp failure. Dr. Fernandes's consult appreciated Had worsening of hypoxemia on 09/27/18 with transfer to ICU back on Vapotherm, diuresed 1500 ml after a dose of IV Lasix on 09/27/18 night. Solu Medrol restarted on 09/27/18. After pt became delirious it was disontinued on 09/28/18. ID saw: Continue pip/jasbir, doxy. Viral tests sent PICC to be placed (2) Encephalopathy acute Comment: etiology may inculde: ETOH withdraval/delirium, or steroid induced delirium vs sepsis related encephalopathy, or a combination of all of the above. Family requested psychiatry to see . Consult placed On Precedex as per Dr. Fernandes (3) Alcohol abuse Comment: Pt states she last consumed alcohol 7-10 days priot to damission. Now delrious-suspsect ETOH witdrawal. Mother states that pt has significant h/o ETOH abuse (4) Chronic back pain Comment: - Continue gabapentin and baclofen. Oxycodone 10 mg po increased to Q3H (5) Substance abuse Comment: suspect pt may be using more opiates at home that she admits to. Cont Oxycodone 10 mg Q3 prn (6) DVT prophylaxis Comment: HSQ Status and Disposition: inpatient
[2018-09-29] MEDS: DOXYcycline CAP(*) 100 MG PO SCH ×2 (10:40→21:16)
[2018-09-29] MEDS: Benzonatate CAP* 100 MG PO SCH ×3 (10:40→21:17)
[2018-09-29] MEDS: Thiamine TAB* 100 MG TAB PO SCH (10:41)
[2018-09-29] MEDS: Famotidine TAB* 20 MG PO SCH ×2 (10:41→21:17)
[2018-09-29] MEDS: Gabapentin CAP(*) 300 MG PO SCH ×3 (10:41→21:16)
[2018-09-29] MEDS ORDERED: NS 0.9% 100 ML* 100 ML ONE (12:04)
[2018-09-29] MEDS: KCL 20 MEQ/100 ML IVPREMIX* 20 MEQ/100 ML BAG IV SCH ×2 (12:09→14:11)
[2018-09-29] MEDS: Heparin VIAL(*) 5000 UNITS/ML VIAL (FIVE THOUSAND) SUBCUT SCH ×2 (12:10→21:15)
[2018-09-29] MEDS ORDERED: Ziprasidone IM INJ* 20 MG/ML VIAL IM PRN (13:09)
[2018-09-29] MEDS ORDERED: Furosemide IV* 10 MG/ML VIAL (40 MG) IV ONE (14:45)
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
[2018-09-29] MEDS: oxyCODONE TAB* 5 MG TAB PO PRN (19:38)
[2018-09-29] MEDS ORDERED: QUEtiapine TAB* 100 MG PO SCH (21:00)
[2018-09-29] MEDS: hydrOXYzine HCL TAB* 25 MG PO SCH (21:17)
[2018-09-30] MEDS: Dexmedetomidine* 400 MCG in NS 0.9% 100 ML* 96 ML IVPB SCH ×7 (00:05→23:48)
[2018-09-30] MEDS: Midazolam* 1 MG/ML 2 ML VIAL (2 MG) IV PRN ×12 (00:40→17:55)
[2018-09-30] MEDS: ZOSYN 3.375 GM Q8H per EXTENDED INFUSION IVPB SCH ×6 (03:55→21:15)
[2018-09-30 04:56] LABS: ABS Basophils 0.1 10^3/ul (0-0.2); ABS Eosinophils 0.8 10^3/ul (0-0.6); ABS Monocytes 0.6 10^3/ul (0-0.8); ABS Neutrophils 7.3 10^3/ul (1.5-7.7); ABS Nucleated RBC 0 10^3/ul; Eosinophil % 7.4 %; Hematocrit 37 % (33-41); Hemoglobin 12.4 g/dL (12.0-16.0); Mean Corpuscular HGB Conc 33 g/dL (31-36); Mean Corpuscular Hemoglobin 31 pg (27-31); Mean Corpuscular Volume 93 fL (80-97); Mean Platelet Volume 7.5 fL (7.4-10.4); Nucleated Red Blood Cells % 0; Platelet Count 393 10^3/uL (150-450); Red Cell Distribution Width 15 % (10.5-15); White Blood Count 10.8 10^3/uL (3.5-10.8)
[2018-09-30] MEDS: CLOTRIMAZOLE PO SCH ×5 (05:05→20:21)
[2018-09-30 05:12] LABS: Calcium 8.4 mg/dL (8.6-10.3); EGFR African American 133.5 (>60); EGFR Non-African American 110.4 (>60)
[2018-09-30] MEDS: Nicotine PATCH 21 MG/24 HR* PATCH TRANSDERM SCH (08:55)
[2018-09-30] MEDS: KCL 20 MEQ/100 ML IVPREMIX* 20 MEQ/100 ML BAG IV SCH ×5 (08:57→21:15)
--- NOTE | 2018-09-30 09:09 | PN ---
Progress Note - Progress Note Date of Service: 09/30/18 SOAP: Subjective: CC: Community Acquired Pneumonia HPI: Ms. Carlton is a 38 yo female with PMH significant for chronic pancreatitis, asthma, and chronic back pain. Ms. Carlton is currently in the ICU receiving IV sedation. She does not answer questions regarding a ROS. Her family at bedside states that she has not been coughing. She continues to have signs of delirium and possible withdrawal. Objective: Vital Signs 09/30/18 09/30/18 09/30/18 07:29 08:00 08:01 Temperature 97.7 F Heart Rate 49 Respiratory 27 Rate Blood Pressure 152/90 (mmHg) O2 Sat by Pulse 98 Oximetry Physical Exam: General: Laying in bed, no acute distress Neurological: Sleepy, moves all extremities Cardiovascular: Heart rate regular Respiratory: Lung sounds with rhonchi throughout Abdominal: Bowel sounds present, ABD soft, non tender Skin: No rashes seen on the exposed skin Laboratory Results - last 24 hr 09/30/18 09/30/18 09/30/18 04:47 04:47 05:00 WBC 10.8 RBC 4.00 Hgb 12.4 Hct 37 MCV 93 MCH 31 MCHC 33 RDW 15 Plt Count 393 MPV 7.5 Neut % (Auto) 67.8 Lymph % (Auto) 19.0 [place] % (Auto) 5.1 Eos % (Auto) 7.4 Baso % (Auto) 0.7 Absolute Neuts (auto) 7.3 Absolute Lymphs (auto) 2.0 Absolute Monos (auto) 0.6 Absolute Eos (auto) 0.8 H Absolute Basos (auto) 0.1 Absolute Nucleated RBC 0 Nucleated RBC % 0 Sodium 140 Potassium 3.0 L Chloride 104 Carbon Dioxide 30 Anion Gap 6 BUN 14 Creatinine 0.61 Est GFR ( Amer) 133.5 Est GFR (Non-Af Amer) 110.4 BUN/Creatinine Ratio 23.0 H Glucose 104 H Calcium 8.4 L Ammonia 65 H Microbiology 09/25/18 05:28 Aerobic Blood Culture - Final Blood Venous No Growth Day 5 Anaerobic Blood Culture - Final No Growth Day 5 09/24/18 18:30 Aerobic Blood Culture - Final Blood Venous No Growth Day 5 Anaerobic Blood Culture - Final No Growth Day 5 09/25/18 10:00 Nasal Screen MRSA (PCR) - Final Nasal Mrsa Not Detected 09/25/18 10:00 Influenza Types A,B Antigen - Final Nasal Specimen received for Influenza A/B Molecular testing 09/24/18 23:23 Legionella Urinary Antigen - Final Urine Negative Legionella Antigen Streptococcus pneumoniae Ag Screen - Final Negative S. pneumo Antigen Assessment: 1. CAP with associated sepsis. Suspect this is a viral PNA but could also be bacterial or atypical. Viral PCRs still pending. She is improving without Bactrim, so low suspicion for PCP PNA. 2. Acute hypoxic respiratory failure. Continues to require Vapotherm. 3. Chronic pancreatitis. 4. Asthma. 5. Chronic back pain. 6. Delirium. Plan: Continue Doxycycline and Zosyn for now. Further recommendations based off the PCR results that are pending at this time (not yet collected) and how she is doing clinically.
[2018-09-30] MEDS: Heparin VIAL(*) 5000 UNITS/ML VIAL (FIVE THOUSAND) SUBCUT SCH ×2 (09:47→20:24)
[2018-09-30] MEDS: Benzonatate CAP* 100 MG PO SCH ×3 (10:55→20:21)
[2018-09-30] MEDS: DOXYcycline CAP(*) 100 MG PO SCH ×2 (10:55→20:21)
[2018-09-30] MEDS: Famotidine TAB* 20 MG PO SCH ×2 (10:56→20:24)
[2018-09-30] MEDS: Gabapentin CAP(*) 300 MG PO SCH ×3 (10:58→20:22)
[2018-09-30] MEDS: Thiamine TAB* 100 MG TAB PO SCH (10:59)
--- NOTE | 2018-09-30 14:00 | CONSULT ---
Identification - Patient Identification Reason for Psychiatric Consultation: Violent Behavior -: Patient is a 38 year old, F admitted on 09/24/18. - MHU Identification Employment Status: Unemployed Hx Psychiatric Hospitalization: No History - Objective HPI: Abby continues to not do well. She has required administrations of Versed and prn ziprasidone for agitated behavior when she becomes aroused. Currently she is sleeping and not able to interact. Exam Appearance: Obese Hygiene: Dirty Grooming: Disheveled Psychomotor Activities: Abnormal-Increased Exhibits Abnormal Movement: Yes Observed Affect: Labile Patient's Thought Process: Disorganized Level of Consciousness: Obtunded Orientation: No Intact, No Orientated to Time, No Orientated to Place, No Orientated to Person Impulse Control: Poor Insight and Judgement: Impaired Impression - Impression Clinical Impression: 38 y.o. single, white female with a history of polydrug dependence (alcohol and opioids mostly) admitted to the medical service for pneumonia presents with agitated, confused, combative behavior in the setting of hypoxemia, alcohol and opioid withdrawal and receipt of corticosteroid therapy. Inpatient DSM-V Dx: R41.0 BSU: Problem List - Patient Problems (1) Delirium Current Visit: Yes Status: Acute Priority: High Code(s): R41.0 - DISORIENTATION, UNSPECIFIED SNOMED Code(s): 5801228 Plan - Treatment Plan Treatment Plan: Will increase quetiapine from 200 to 300mg. Continue midazolam for delirium tremens; convert to diazepam once ready to transition to 4th floor. IM ziprasidone available on a prn basis for breakthrough agitation. Psychiatry will continue to follow. Continued Medication Management: Different Medication Medications: Current Medications Albuterol (Ventolin 2.5 Mg/3 Ml Neb.Apple*) 2.5 mg INH Q2H PRN PRN Reason: SOB/WHEEZING Albuterol/Ipratropium (Duoneb (Albuterol 2.5 Mg/Ipratropium 0.5 Mg)) 1 neb INH Q4H PRN PRN Reason: SOB/WHEEZING Baclofen (Lioresal Tab*) 10 mg PO Q8HR PRN PRN Reason: PAIN Last Admin: 09/28/18 08:10 Dose: 10 mg Benzonatate (Tessalon Cap*) 200 mg PO TID [facility] Last Admin: 09/30/18 10:55 Dose: Not Given Clotrimazole (Mycelex Ekaterina*) 10 mg PO FIVE TIMES DAILY [facility] Last Admin: 09/30/18 10:14 Dose: Not Given Device (Nicotine Mouth Piece*) 1 each INH .USE W/ CARTRIDGE PRN PRN Reason: WITHDRAWAL - NICOTINE Last Admin: 09/28/18 08:50 Dose: 1 each Doxycycline Hyclate (Vibramycin Cap(*)) 100 mg PO BID [facility] Last Admin: 09/30/18 10:55 Dose: Not Given Famotidine (Pepcid Tab*) 20 mg PO BID [facility]; Protocol Last Admin: 09/30/18 10:56 Dose: Not Given Gabapentin (Neurontin Cap(*)) 900 mg PO TID [facility] Last Admin: 09/30/18 10:58 Dose: Not Given Heparin Sodium (Porcine) (Heparin Vial(*)) 5,000 units SUBCUT Q12HR [facility] Last Admin: 09/30/18 09:47 Dose: 5,000 units Heparin Sodium (Porcine) (Heparin Flush Picc/Ml/Cvc(*)) 1 - 3 ml FLUSH 0600, 1800 [facility]; Protocol Last Admin: 09/30/18 04:52 Dose: 2 ml Hydroxyzine HCl (Atarax Tab*) 25 mg PO BEDTIME [facility] Last Admin: 09/29/18 21:17 Dose: 25 mg Piperacillin Sod/Tazobactam (Sod 3.375 gm/ Sodium Chloride) 100 mls @ 25 mls/ hr IVPB Q8H [facility] Last Admin: 09/30/18 12:11 Dose: 25 mls/hr Dexmedetomidine HCl 400 mcg/ (Sodium Chloride) 100 mls @ 22.07 mls/hr IVPB Q4H [facility]; Protocol Last Admin: 09/30/18 09:44 Dose: 21 mls/hr Potassium Chloride (Potassium Chloride 20 Meq/100 Ml Ivpremix*) 20 meq in 100 mls @ 50 mls/hr IV Q2H [facility] Stop: 09/30/18 14:59 Last Admin: 09/30/18 11:01 Dose: 50 mls/hr Melatonin (Melatonin) 3 mg PO QPM PRN PRN Reason: SLEEP Last Admin: 09/27/18 23:00 Dose: 3 mg Midazolam HCl (Versed 2mg/2ml*) 2 mg IV Q1H PRN PRN Reason: agitation or anxiety Last Admin: 09/30/18 12:51 Dose: 2 mg Nicotine (Nicotine Patch 21 Mg/24 Hr*) 1 patch TRANSDERM DAILY@0800 [facility] Last Admin: 09/30/18 08:55 Dose: 1 patch Nicotine (Nicotine Inhaler*) 10 mg INH Q2H PRN PRN Reason: CRAVING Last Admin: 09/28/18 16:00 Dose: 10 mg Ondansetron HCl (Zofran Inj*) 4 mg IV Q6H PRN PRN Reason: NAUSEA Last Admin: 09/27/18 21:49 Dose: 4 mg Oxycodone HCl (Roxycodone Tab*) 10 mg PO Q3H PRN PRN Reason: PAIN - MODERATE Last Admin: 09/29/18 19:38 Dose: 10 mg Pharmacy Consult (Zosyn Per Pharmacy*) 1 note FOLLOW UP .ZOSYN PER PHARMACY [facility] Prochlorperazine Edisylate (Compazine Inj*) 5 mg IV Q6H PRN PRN Reason: NAUSEA/VOMITING Last Admin: 09/25/18 12:30 Dose: 5 mg Quetiapine Fumarate (Seroquel Tab*) 200 mg PO BEDTIME [facility] Last Admin: 09/29/18 21:16 Dose: 200 mg Thiamine HCl (Vitamin B-1 Tab*) 100 mg PO DAILY [facility] Last Admin: 09/30/18 10:59 Dose: Not Given Ziprasidone (Geodon Im Inj*) 10 mg IM ONCE PRN PRN Reason: AGITATION Last Admin: 09/30/18 10:51 Dose: 10 mg
[2018-09-30] MEDS: oxyCODONE TAB* 5 MG TAB PO PRN ×2 (16:36→19:45)
[2018-09-30] MEDS ORDERED: Midazolam* 1 MG/ML 2 ML VIAL (2 MG) ONE (17:53)
--- NOTE | 2018-09-30 18:15 | PN ---
Date of Service: 09/30/18 - HD 7 Critical Care Services: 38 yo F with PMH of polysubstance abuse, chronic pain and episodes of pancreatitis presented to the ED on 09/24 with shortness of breath. Per ED note , dyspnea started that day, however mom now reports she had seen an outpatient physician for same complaint several days before. Also reported Cough and chest pain, N/v x 1 week. Recently diagnosed with thrush after a course of antibiotics for UTI. 09/25: Stable on vapotherm. Pt insists last drink 7 days ago. WAM protocol discontinued 09/26: HIV negative, Bactrim discontinued 09/27: increased hypoxia. Lasix x1. On max Vapotherm, refusing BiPAP. Refusing lab draws and IVs. PICC placed. 09/28: Overnight patient observed to be talking to TV remove as if it were a cellphone, holding conversation with her mom. Placing nasal cannula on head and in mouth. Today agitated and stating she is going home tomorrow. Unable to understand medical need to stay. Mom present at bedside, states daughter drinks heavily and is asking for a psychiatry consult. Steriods discontinued to rule out any potential contribution to altered mental state 09/29: Continuing to require hourly Versed in addition to Precedex gtt. 09/30: Remains delirious with agitation and hallucinations. Continuing to require Vapotherm, but weaned down to FIO2 70%. Evaluated by psychiatry, agrees with likely substance withdrawal. Vital Signs: Temp Pulse Resp BP SpO2 FiO2 97.5 F 67 23 171/105 96 70 09/30/18 11:42 09/30/18 17:01 09/30/18 17:01 09/30/18 15:01 09/30/18 17:01 09/30 14:44 Physical Exam: Gen: resting in bed, eyes closed HEENT: Vapotherm in place Lungs: nonlabored Cardiac: RRR Abdomen: soft, nondistended Extremities: moving equally Neuro: mildly agitated. eyes closed due to headache Fluid Balance (Past 24 Hours): I= O= Net Intake & Output 09/28/18 09/29/18 09/30/18 10/01/18 06:59 06:59 06:59 06:59 Intake Total 020 539 3262 557 Output Total 3550 1000 Balance -2979 538 576 557 Weight 129 lb 12.8 oz 131 lb 3.2 oz 130 lb 11.2 oz Intake: IV Fluids 201 91 710 Calcium 110 NS 65 42 Zosyn 136 49 186 potassium 414 IVPB 228 325 381 NS 53 Zosyn 228 325 102 potassium 226 Medicated IV 219 491 176 CC - Dexmedetomidine/ 219 491 176 Precedex Oral 370 50 Output: Urine 3550 1000 Other: Estimated Void Small Date of Last Bowel 09/26/18 Movement Estimated Stool Amount Small ADLs: Meal Record Start: 09/24/18 22: 38 Freq: 09,13,18 Status: Complete Protocol: Created 09/24/18 22:38 System (Rec: 09/24/18 22:38 System ICU-C12) Document 09/25/18 13:00 [id number] (Rec: 09/25/18 13:43 [id number] ICU-C20) Document 09/25/18 18:00 [id number] (Rec: 09/25/18 18:37 [id number] ICU-C08) Document 09/26/18 09:00 [id number] (Rec: 09/26/18 10:03 [id number] ICU-C07) Document 09/26/18 13:00 [id number] (Rec: 09/26/18 13:50 [id number] ICU-C06) Document 09/26/18 18:00 [id number] (Rec: 09/26/18 18:14 [id number] MED-C11) Document 09/27/18 09:00 [id number] (Rec: 09/27/18 09:26 [id number] MED-C11) Document 09/27/18 13:00 [id number] (Rec: 09/27/18 13:31 [id number] MED-C11) Intake and Output Start: 09/24/18 17: 24 Freq: Status: Complete Protocol: Created 09/24/18 17:24 System (Rec: 09/24/18 17:24 System [id number]) Intake and Output Start: 09/24/18 22: 38 Freq: 06,14,2200 Status: Active Protocol: Created 09/24/18 22:38 System (Rec: 09/24/18 22:38 System ICU-C12) Document 09/25/18 01:00 [id number] (Rec: 09/25/18 02:52 [id number] ICU-L03) Document 09/25/18 05:00 [id number] (Rec: 09/25/18 05:17 [id number] ICU-L03) Document 09/25/18 12:34 [id number] (Rec: 09/25/18 12:34 [id number] ICU-M31) Document 09/25/18 18:00 [id number] (Rec: 09/25/18 18:18 [id number] ICU-C08) Document 09/25/18 19:00 [id number] (Rec: 09/25/18 19:23 [id number] ICU-M31) Document 09/25/18 23:00 [id number] (Rec: 09/26/18 00:23 [id number] ICU-M31) Document 09/26/18 06:00 [id number] (Rec: 09/26/18 06:20 [id number] ICU-C12) Document 09/26/18 07:00 [id number] (Rec: 09/26/18 08:41 [id number] ICU-M31) Document 09/26/18 08:00 [id number] (Rec: 09/26/18 09:41 [id number] ICU-C07) Document 09/26/18 09:00 [id number] (Rec: 09/26/18 10:03 [id number] ICU-C07) Document 09/26/18 10:00 [id number] (Rec: 09/26/18 10:03 [id number] ICU-C07) Document 09/26/18 12:11 [id number] (Rec: 09/26/18 12:11 [id number] ICU-C20) Document 09/26/18 14:00 [id number] (Rec: 09/26/18 14:05 [id number] ICU-M31) Document 09/26/18 21:52 [id number] (Rec: 09/26/18 21:52 [id number] MED-C14) Document 09/27/18 06:00 KHE1251 (Rec: 09/27/18 06:14 [id number] MED-C14) Document 09/27/18 13:14 [id number] (Rec: 09/27/18 13:14 [id number] MED-C11) Document 09/27/18 21:01 [id number] (Rec: 09/27/18 21:01 [id number] ICU-C25) Document 09/27/18 23:00 [id number] (Rec: 09/28/18 00:54 [id number] ICU-C06) Document 09/27/18 23:45 [id number] (Rec: 09/28/18 00:54 [id number] ICU-C06) Document 09/28/18 00:54 [id number] (Rec: 09/28/18 00:54 [id number] ICU-C06) Document 09/28/18 01:43 [id number] (Rec: 09/28/18 01:43 [id number] ICU-C06) Document 09/28/18 03:01 [id number] (Rec: 09/28/18 03:01 [id number] ICU-C06) Document 09/28/18 06:00 [id number] (Rec: 09/28/18 06:23 [id number] ICU-C06) Document 09/29/18 14:00 [id number] (Rec: 09/29/18 17:03 [id number] ICU-C12) Document 09/29/18 21:59 [id number] (Rec: 09/29/18 21:59 [id number] ICU-C12) Labs: Laboratory Results - last 24 hr 09/30/18 09/30/18 09/30/18 04:47 04:47 05:00 WBC 10.8 RBC 4.00 Hgb 12.4 Hct 37 MCV 93 MCH 31 MCHC 33 RDW 15 Plt Count 393 MPV 7.5 Neut % (Auto) 67.8 Lymph % (Auto) 19.0 Maverick % (Auto) 5.1 Eos % (Auto) 7.4 Baso % (Auto) 0.7 Absolute Neuts (auto) 7.3 Absolute Lymphs (auto) 2.0 Absolute Monos (auto) 0.6 Absolute Eos (auto) 0.8 H Absolute Basos (auto) 0.1 Absolute Nucleated RBC 0 Nucleated RBC % 0 Sodium 140 Potassium 3.0 L Chloride 104 Carbon Dioxide 30 Anion Gap 6 BUN 14 Creatinine 0.61 Est GFR ( Amer) 133.5 Est GFR (Non-Af Amer) 110.4 BUN/Creatinine Ratio 23.0 H Glucose 104 H Calcium 8.4 L Ammonia 65 H Studies: 09/27 CXR - progressive pneumonia bilaterally 09/24 CTA chest - no visible PE. Stable bilateral interstitial and airspace opacities suspicious for pulmonary edema or pneumonitis. Mild mediastinal lymphadenopathy. 09/24 CXR - confluent and multifocal consolidation throughout lungs bilaterally Nutrition: general diet as tolerated Impression: 38 yo F with PMH of polysubstance abuse and pancreatitis now with cough and shortness of breath, admitted on 09/24 with multilobar pneumonia. Requiring Vapotherm to maintain adequate oxygenation. Plan: Plan: Cardiovascular: (1) Sinus tachycardia secondary to agitation, resolved -- HR 48-70 -- SBP 103-171 -- Telemetry Home meds: None Pulmonary: (1) Acute hypoxic respiratory failure; (2) Community acquired multilobar pneumonia; (3) Tobacco abuse -- RR 14-38 -- sats 85-100 on Vapotherm [flow 30, FiO2 70% down from 100 yesterday] -- Desaturates rapidly when vapotherm removed -- CXR 09/27: progressive pneumonia bilaterally -- Duonebs -- Benzonatate -- Nicotine inhaler and patch Home meds: Albuterol Gastrointestinal: (1) Hyperammoniemia; (2) hx of pancreatitis -- diet: Regular diet -- bowel regimen: None -- ulcer prophylaxis: Famotidine -- Ammonia 65, start lactulose -- Zofran as needed Home meds: Zofran, Zantac Endocrine: No acute issues -- monitor BGs Home meds: None Renal: (1) Hypokalemia; (2) Hypocalcemia -- UOP: unrecorded (pt noncompliant with saving urine for measurement) -- Cr 0.61 from 0.67 -- Lytes Na 140 from 137 K 3.0, replaced Ca 8.4, replaced -- bolusing 1 L IVF to rule out dehydration as contributing to headache Home meds: None Infectious disease: (1) Community acquired multilobar pneumonia -- Tmax 99.1 -- WBC 10.8 from 13.2 from 8.4 -- Micro Viral PCR pending 09/25 MRSA screen negative Flu Negative Blood Negative 09/24 Legionella Ag negative Strep Pna Ag negative Blood negative -- ABX Doxycycline Zosyn Clotrimazole yaima Home meds: Nystatin Neurologic: (1) Acute delirium with hallucinatinons, likely alcohol withdrawal delirium; (2) Substance abuse disorder including alcohol; (3) Chronic pain syndrome; (4) Chronic anxiety; (5) Headache -- PRN Baclofen -- Gabapentin -- Oxycodone as needed for pain -- Thiamine -- Seroquel, Hydroxyzine and PRN Melatonin QHS -- Precedex gtt and PRN Versed for agitation -- start Librium for alcohol withdrawal -- Pt requesting ibuprofen for headache - order placed -- Psychiatry consulted Home meds: Hydroxyzine, Baclofen, Seroquel, Gabapentin, Melatonin, Diclofenac, Oxycodone Hematological: (1) Anemia -- Hgb 12.4 from 11.9 -- Plt 393 from 341 -- DVT prophylaxis: SQ Heparin Home meds: None Metabolic: No acute issues Home meds: None Deep vein thrombosis prophylaxis: SQ Heparin Dietary: Famotidine Condition: critical Prognosis: guarded Code status: full Disposition: continue ICU care Patient, parents and sibling updated at bedside Cumulative time spent in the care of this patient (excluding any procedure time) : at least 40 minutes. Patient care included clinical interview (with patient and/or family), bedside exam of the patient, review of labs, x-rays, and other ancillary data, coordination of (respiratory, nursing care, review of patient's records, discussion regarding patients management with involved consultants, primary physician, pharmacists, and other healthcare personnel (dietary, case management , physical/occupational therapy etc.)
[2018-09-30] MEDS ORDERED: Ibuprofen TAB* 600 MG PO PRN (18:19)
[2018-09-30] MEDS ORDERED: Ibuprofen TAB* 600 MG ONE (18:24)
[2018-09-30] MEDS ORDERED: Lactated Ringers 1000 ML Bag* 1,000 ML IV SCH (19:00)
[2018-09-30] MEDS: Calcium Gluconate INJ* 1 GM in NS 0.9% 50 ML* 50 ML IVPB ONE ×2 (19:14→20:24)
[2018-09-30] MEDS: Baclofen TAB* 10 MG PO PRN (19:24)
[2018-09-30] MEDS: Ondansetron INJ* 2 MG/ML VIAL IV PRN (19:45)
[2018-09-30] MEDS: hydrOXYzine HCL TAB* 25 MG PO SCH (20:21)
[2018-09-30] MEDS: chlordiazePOXIDE CAP* 25 MG PO SCH (20:23)
[2018-09-30] MEDS: Lactulose* 15 ML UDC PO SCH ×2 (20:24→20:57)
[2018-09-30] MEDS: QUEtiapine TAB* 100 MG PO SCH (20:24)
[2018-09-30] MEDS ORDERED: chlordiazePOXIDE CAP* 10 MG PO SCH (21:00)
[2018-10-01] MEDS ORDERED: Lactated Ringers 1000 ML Bag* 1,000 ML IV ONE (01:06)
[2018-10-01] MEDS: Midazolam* 1 MG/ML 2 ML VIAL (2 MG) IV PRN ×3 (02:12→14:49)
[2018-10-01] MEDS: Dexmedetomidine* 400 MCG in NS 0.9% 100 ML* 96 ML IVPB SCH ×5 (04:51→19:59)
[2018-10-01] MEDS: ZOSYN 3.375 GM Q8H per EXTENDED INFUSION IVPB SCH ×6 (04:58→20:00)
[2018-10-01] MEDS: CLOTRIMAZOLE PO SCH ×5 (05:28→21:35)
[2018-10-01] MEDS: Heparin VIAL(*) 5000 UNITS/ML VIAL (FIVE THOUSAND) SUBCUT SCH ×2 (09:16→21:33)
[2018-10-01] MEDS: Gabapentin CAP(*) 300 MG PO SCH ×3 (09:17→21:29)
[2018-10-01] MEDS: Benzonatate CAP* 100 MG PO SCH ×3 (09:17→21:28)
[2018-10-01] MEDS: Nicotine PATCH 21 MG/24 HR* PATCH TRANSDERM SCH (09:17)
[2018-10-01] MEDS: DOXYcycline CAP(*) 100 MG PO SCH ×2 (09:17→21:29)
[2018-10-01] MEDS: Lactulose* 15 ML UDC PO SCH ×3 (09:18→21:35)
[2018-10-01] MEDS: chlordiazePOXIDE CAP* 25 MG PO SCH ×3 (09:18→21:30)
[2018-10-01] MEDS: Thiamine TAB* 100 MG TAB PO SCH (09:18)
[2018-10-01] MEDS: Famotidine TAB* 20 MG PO SCH ×2 (09:18→21:29)
--- NOTE | 2018-10-01 12:23 | PN ---
Date of Service: 10/01/18 - HD 8 Critical Care Services: 38 yo F with PMH of polysubstance abuse, chronic pain and episodes of pancreatitis presented to the ED on 09/24 with shortness of breath. Per ED note , dyspnea started that day, however mom now reports she had seen an outpatient physician for same complaint several days before. Also reported Cough and chest pain, N/v x 1 week. Recently diagnosed with thrush after a course of antibiotics for UTI. 09/25: Stable on vapotherm. Pt insists last drink 7 days ago. WAM protocol discontinued 09/26: HIV negative, Bactrim discontinued 09/27: increased hypoxia. Lasix x1. On max Vapotherm, refusing BiPAP. Refusing lab draws and IVs. PICC placed. 09/28: Overnight patient observed to be talking to TV remove as if it were a cellphone, holding conversation with her mom. Placing nasal cannula on head and in mouth. Today agitated and stating she is going home tomorrow. Unable to understand medical need to stay. Mom present at bedside, states daughter drinks heavily and is asking for a psychiatry consult. Steriods discontinued to rule out any potential contribution to altered mental state 09/29: Continuing to require hourly Versed in addition to Precedex gtt. 09/30: Remains delirious with agitation and hallucinations. Continuing to require Vapotherm, but weaned down to FIO2 70%. Evaluated by psychiatry, agrees with likely substance withdrawal. Vital Signs: Temp Pulse Resp BP SpO2 FiO2 97.8 F 58 21 151/84 94 70 10/01/18 08:00 10/01/18 11:00 10/01/18 11:00 10/01/18 09:00 10/01/18 11:00 10/01 08:22 Physical Exam: Gen: resting in bed comfortably HEENT: vapotherm cannula in place Lungs: nonlabored breathing Cardiac: RRR Abdomen: nondistended Extremities: moving equally Neuro: sleeping comfortably. fluctuates between agitation and being sedated due to medication Fluid Balance (Past 24 Hours): I= O= Net Intake & Output 09/29/18 09/30/18 10/01/18 10/02/18 06:59 06:59 06:59 06:59 Intake Total 538 1576 3094.5 Output Total 1000 800 500 Balance 152 650 3165.5 -500 Weight 131 lb 3.2 oz 130 lb 11.2 oz 133 lb 8 oz Intake: IV Fluids 91 710 1904.5 Calcium 110 Calcium Gluconate 84 LR 1593 NS 42 40.5 Zosyn 49 186 134 potassium 414 53 IVPB 228 325 670 Calcium Gluconate 66 NS 53 Zosyn 228 325 125 potassium 426 Medicated IV 219 491 520 CC - Dexmedetomidine/ 219 491 520 Precedex Oral 50 Output: Urine 1000 800 500 Other: Date of Last Bowel 10/01/2018 Movement # Bowel Movements 1 Estimated Stool Amount Small Labs: Laboratory Results - last 24 hr 10/01/18 05:58 Ammonia 61 H Studies: 10/01 CxR - diffuse hazy opacities bilaterally but improved in bases as compared to 09/27 09/27 CXR - progressive pneumonia bilaterally 09/24 CTA chest - no visible PE. Stable bilateral interstitial and airspace opacities suspicious for pulmonary edema or pneumonitis. Mild mediastinal lymphadenopathy. 09/24 CXR - confluent and multifocal consolidation throughout lungs bilaterally Nutrition: general diet Impression: 38 yo F with PMH of polysubstance abuse and pancreatitis now with cough and shortness of breath, admitted on 09/24 with multilobar pneumonia. Requiring Vapotherm to maintain adequate oxygenation. Plan: Cardiovascular: (1) Sinus tachycardia secondary to agitation, resolved -- HR 48-89 -- SBP 82-178 -- Telemetry Home meds: None Pulmonary: (1) Acute hypoxic respiratory failure, slowly improving; (2) Community acquired multilobar pneumonia; (3) Tobacco abuse -- RR 12-31 -- sats 93-100 on Vapotherm [flow 30, FiO2 50% down from 70 yesterday] -- Desaturates rapidly when vapotherm removed -- CXR 10/01: interval improvement -- Duonebs -- Benzonatate -- Nicotine inhaler and patch Home meds: Albuterol Gastrointestinal: (1) Hyperammoniemia; (2) hx of pancreatitis -- diet: Regular diet -- bowel regimen: None -- ulcer prophylaxis: Famotidine -- Ammonia 61 form 65, on lactulose -- LFTs and Liver US ordered -- Zofran as needed Home meds: Zofran, Zantac Endocrine: No acute issues -- monitor BGs Home meds: None Renal: No acute issues -- UOP: unrecorded (pt noncompliant with saving urine for measurement) Home meds: None Infectious disease: (1) Community acquired multilobar pneumonia -- Tmax 97.8 -- WBC 10.8 from 13.2 from 8.4 -- Micro Viral PCR pending 09/25 MRSA screen negative Flu Negative Blood Negative 09/24 Legionella Ag negative Strep Pna Ag negative Blood negative -- ABX Doxycycline Zosyn Clotrimazole yaima Home meds: Nystatin Neurologic: (1) Acute delirium with hallucinatinons, likely alcohol withdrawal delirium; (2) Substance abuse disorder including alcohol; (3) Chronic pain syndrome; (4) Chronic anxiety; (5) Headache -- PRN Baclofen -- Gabapentin -- Oxycodone as needed for pain -- Thiamine -- Seroquel, Hydroxyzine and PRN Melatonin QHS -- Precedex gtt and PRN Versed for agitation secondary to alcohol withdrawal ( attempting to pull out picc line today) -- start Librium for alcohol withdrawal -- Psychiatry consulted; per recommendations will try IM Olanzapine to address any possible psychiatric contribution to agitation Home meds: Hydroxyzine, Baclofen, Seroquel, Gabapentin, Melatonin, Diclofenac, Oxycodone Hematological: (1) Anemia -- DVT prophylaxis: SQ Heparin Home meds: None Metabolic: No acute issues Home meds: None Deep vein thrombosis prophylaxis: SQ Heparin Dietary: Famotidine Condition: critical Prognosis: guarded Code status: full Disposition: continue ICU care Mom updated at bedside regarding progress including CXR results and finding of elevated ammonia. Cumulative time spent in the care of this patient (excluding any procedure time) : at least 40 minutes. Patient care included clinical interview (with patient and/or family), bedside exam of the patient, review of labs, x-rays, and other ancillary data, coordination of (respiratory, nursing care, review of patient's records, discussion regarding patients management with involved consultants, primary physician, pharmacists, and other healthcare personnel (dietary, case management , physical/occupational therapy etc.)
[2018-10-01 12:58] LABS: Albumin 2.7 g/dL (3.2-5.2); Globulin 2.7 g/dL (2-4); Indirect Bilirubin 0.2 mg/dL (0.3-1.0); Total Bilirubin 0.3 mg/dL (0.2-1.0); Total Protein 5.4 g/dL (6.4-8.9)
[2018-10-01 13:54] LABS: Hepatitis B Surface Antigen Nonreactive (Nonreactive)
--- NOTE | 2018-10-01 14:12 | PN ---
Progress Note - Progress Note Date of Service: 10/01/18 SOAP: Subjective: CC: pneumonia HPI: 38 year old woman with acute respiratory failure, possible withdrawal, O2 requirement improving. She denies pain or cough. Objective: Vital Signs Temp 36.4 C 10/01/18 12:00 Pulse 59 10/01/18 13:00 Resp 21 10/01/18 13:42 BP 151/84 10/01/18 09:00 Pulse Ox 91 10/01/18 13:00 Intake & Output 09/30/18 10/01/18 10/01/18 18:59 06:59 18:59 Intake Total 557 2537.5 Output Total 800 500 Balance 557 1737.5 -500 Weight 133 lb 8 oz Intake: IV Fluids 1904.5 Calcium Gluconate 84 LR 1593 NS 40.5 Zosyn 134 potassium 53 IVPB 381 289 Calcium Gluconate 66 NS 53 Zosyn 102 23 potassium 226 200 Medicated IV 176 344 CC - Dexmedetomidine/ 176 344 Precedex Output: Urine 800 500 Other: Date of Last Bowel 10/01/2018 Movement # Bowel Movements 1 Estimated Stool Amount Small Gen:awake, no distress HEENT: no thrush Heart:RRR no murmur Lungs:decreased BS L>R lung lino, no rales Skin: no rash MSK: no spine tenderness Abd: +BS NTND soft Assessment: 1. community acquired pneumonia ?bacterial including atypical or viral 2. acute respiratory failure, improving 3. etoh withdrawal Plan: DC doxy and zosyn 4/6 which will be a 7 day course (ordered) Discussed with Dr Fernandes
[2018-10-01 14:20] LABS: Hepatitis C Antibody Nonreactive (Nonreactive)
[2018-10-01] MEDS: Mouth Piece, Nicotine* 1 EACH CARTRIDGE INH PRN (19:58)
[2018-10-01] MEDS: Nicotine Inhaler* 10 MG AMP INH PRN (19:58)
[2018-10-01] MEDS: hydrOXYzine HCL TAB* 25 MG PO SCH (21:30)
[2018-10-01] MEDS: QUEtiapine TAB* 100 MG PO SCH (21:30)
[2018-10-02] MEDS: oxyCODONE TAB* 5 MG TAB PO PRN ×5 (03:32→18:32)
[2018-10-02 04:22] LABS: Hematocrit 36 % (33-41); Hemoglobin 11.7 g/dL (12.0-16.0); Mean Corpuscular HGB Conc 32 g/dL (31-36); Mean Corpuscular Hemoglobin 30 pg (27-31); Mean Corpuscular Volume 93 fL (80-97); Mean Platelet Volume 7.8 fL (7.4-10.4); Platelet Count 403 10^3/uL (150-450); Red Blood Count 3.89 10^6 /uL (3.70-4.87); Red Cell Distribution Width 15 % (10.5-15); White Blood Count 9.3 10^3/uL (3.5-10.8)
[2018-10-02 04:53] LABS: Albumin 2.5 g/dL (3.2-5.2); Indirect Bilirubin 0.2 mg/dL (0.3-1.0); Total Bilirubin 0.3 mg/dL (0.2-1.0)
[2018-10-02 04:58] LABS: Albumin/Globulin Ratio 1.1 (1-3); Globulin 2.3 g/dL (2-4); Total Protein 4.8 g/dL (6.4-8.9)
[2018-10-02] MEDS ORDERED: hydrOXYzine HCL TAB* 10 MG PO ONE (05:19)
[2018-10-02] MEDS: ZOSYN 3.375 GM Q8H per EXTENDED INFUSION IVPB SCH ×6 (05:53→20:55)
[2018-10-02] MEDS: CLOTRIMAZOLE PO SCH ×4 (06:02→18:33)
[2018-10-02] MEDS: Nicotine PATCH 21 MG/24 HR* PATCH TRANSDERM SCH (08:30)
[2018-10-02] MEDS: Heparin VIAL(*) 5000 UNITS/ML VIAL (FIVE THOUSAND) SUBCUT SCH ×2 (08:32→21:08)
[2018-10-02] MEDS: Thiamine TAB* 100 MG TAB PO SCH (08:34)
[2018-10-02] MEDS: Benzonatate CAP* 100 MG PO SCH ×3 (08:34→21:00)
[2018-10-02] MEDS: chlordiazePOXIDE CAP* 25 MG PO SCH ×3 (08:34→20:54)
[2018-10-02] MEDS: Gabapentin CAP(*) 300 MG PO SCH ×3 (08:34→20:51)
[2018-10-02] MEDS: Famotidine TAB* 20 MG PO SCH ×2 (08:34→20:53)
[2018-10-02] MEDS: Midazolam* 1 MG/ML 2 ML VIAL (2 MG) IV PRN (08:36)
[2018-10-02] MEDS: Lactulose* 15 ML UDC PO SCH ×3 (08:52→20:49)
[2018-10-02] MEDS: Nicotine Inhaler* 10 MG AMP INH PRN ×2 (09:21→15:53)
[2018-10-02] MEDS: Dexmedetomidine* 400 MCG in NS 0.9% 100 ML* 96 ML IVPB SCH ×2 (10:36→10:37)
[2018-10-02] MEDS: Ondansetron INJ* 2 MG/ML VIAL IV PRN (11:44)
[2018-10-02 13:50] LABS: BUN/Creatinine Ratio 10.2 (8-20); Calcium 8.3 mg/dL (8.6-10.3); EGFR African American 171.9 (>60); EGFR Non-African American 142.1 (>60); Potassium 3.7 mmol/L (3.5-5.0)
[2018-10-02] MEDS: Metoprolol Tartrate TAB* 25 MG PO SCH ×2 (14:10→21:02)
[2018-10-02] MEDS ORDERED: Albuterol 2.5 MG/3 ML NEB.SOL* (0.083%) INH ONE (14:14)
[2018-10-02] MEDS ORDERED: Albuterol 2.5 MG/3 ML NEB.SOL* (0.083%) INH PRN (14:14)
[2018-10-02] MEDS ORDERED: Potassium Chloride LIQUID* 20 MEQ PACKET PO ONE (14:27)
--- NOTE | 2018-10-02 14:29 | PN ---
Progress Note - Progress Note Date of Service: 10/02/18 Note: Progress Note -- Critical Care 24 hour events/significant events: -off precedex yesterday -in chair, no complaints; on NC, no distress -cough+ mild, no sputum/cp. nausea+ but improved with zofran -no fever/chills. Tele: sinus tachy Vitals: Vital Signs Temp 97.9 F 10/02/18 03:59 Pulse 141 10/02/18 13:30 Resp 18 10/02/18 14:05 BP 103/74 10/02/18 13:30 Pulse Ox 97 10/02/18 13:30 Intake & Output 10/01/18 10/02/18 10/02/18 18:59 06:59 18:59 Intake Total 831 702 Output Total 1350 500 Balance -519 202 Weight 59.829 kg Intake: IV Fluids 474 166 LR 460 NS 14 26 Zosyn 140 IVPB 112 Zosyn 112 Medicated IV 245 56 CC - Dexmedetomidine/ 245 56 Precedex Oral 480 Output: Urine 1350 500 Other: Date of Last Bowel 10/01/2018 Movement # Bowel Movements 1 Estimated Stool Amount Small O2/Vent: NC 3 L Infusions: heplock Medications: Albuterol (Ventolin 2.5 Mg/3 Ml Neb.Apple*) 2.5 mg INH Q2H PRN PRN Reason: SOB/WHEEZING Albuterol/Ipratropium (Duoneb (Albuterol 2.5 Mg/Ipratropium 0.5 Mg)) 1 neb INH Q4H PRN PRN Reason: SOB/WHEEZING Baclofen (Lioresal Tab*) 10 mg PO Q8HR PRN PRN Reason: PAIN Last Admin: 09/30/18 19:24 Dose: 10 mg Benzonatate (Tessalon Cap*) 200 mg PO TID [facility] Last Admin: 10/02/18 14:05 Dose: 200 mg Chlordiazepoxide (Librium Cap*) 25 mg PO TID [facility] Stop: 10/05/18 20:09 Last Admin: 10/02/18 14:05 Dose: 25 mg Clotrimazole (Mycelex Ekaterina*) 10 mg PO FIVE TIMES DAILY [facility] Last Admin: 10/02/18 14:05 Dose: Not Given Device (Nicotine Mouth Piece*) 1 each INH .USE W/ CARTRIDGE PRN PRN Reason: WITHDRAWAL - NICOTINE Last Admin: 10/01/18 19:58 Dose: 1 each Famotidine (Pepcid Tab*) 20 mg PO BID [facility]; Protocol Last Admin: 10/02/18 08:34 Dose: 20 mg Gabapentin (Neurontin Cap(*)) 900 mg PO TID [facility] Last Admin: 10/02/18 14:05 Dose: 900 mg Heparin Sodium (Porcine) (Heparin Vial(*)) 5,000 units SUBCUT Q12HR [facility] Last Admin: 10/02/18 08:32 Dose: 5,000 units Heparin Sodium (Porcine) (Heparin Flush Picc/Ml/Cvc(*)) 1 - 3 ml FLUSH 0600, 1800 [facility]; Protocol Last Admin: 10/02/18 08:32 Dose: Not Given Piperacillin Sod/Tazobactam (Sod 3.375 gm/ Sodium Chloride) 100 mls @ 25 mls/ hr IVPB Q8H [facility] Stop: 10/02/18 23:59 Last Admin: 10/02/18 12:21 Dose: 25 mls/hr Dextrose/Sodium Chloride (D5w 1/2 Ns 1000 Ml Bag*) 1,000 mls @ 75 mls/hr IV PER RATE [facility] Stop: 10/03/18 02:59 Lactulose (Lactulose*) 15 ml PO TID [facility] Last Admin: 10/02/18 14:05 Dose: Not Given Melatonin (Melatonin) 3 mg PO QPM PRN PRN Reason: SLEEP Last Admin: 09/27/18 23:00 Dose: 3 mg Metoprolol Tartrate (Lopressor Tab*) 12.5 mg PO Q12HR [facility] Last Admin: 10/02/18 14:10 Dose: 12.5 mg Nicotine (Nicotine Patch 21 Mg/24 Hr*) 1 patch TRANSDERM DAILY@0800 [facility] Last Admin: 10/02/18 08:30 Dose: 1 patch Nicotine (Nicotine Inhaler*) 10 mg INH Q2H PRN PRN Reason: CRAVING Last Admin: 10/02/18 09:21 Dose: 10 mg Ondansetron HCl (Zofran Inj*) 4 mg IV Q6H PRN PRN Reason: NAUSEA Last Admin: 10/02/18 11:44 Dose: 4 mg Oxycodone HCl (Roxycodone Tab*) 10 mg PO Q3H PRN PRN Reason: PAIN - MODERATE Last Admin: 10/02/18 12:21 Dose: 10 mg Pharmacy Consult (Zosyn Per Pharmacy*) 1 note FOLLOW UP .ZOSYN PER PHARMACY [facility] Prochlorperazine Edisylate (Compazine Inj*) 5 mg IV Q6H PRN PRN Reason: NAUSEA/VOMITING Last Admin: 09/25/18 12:30 Dose: 5 mg Quetiapine Fumarate (Seroquel Tab*) 300 mg PO BEDTIME [facility] Last Admin: 10/01/18 21:30 Dose: 300 mg Thiamine HCl (Vitamin B-1 Tab*) 100 mg PO DAILY [facility] Last Admin: 10/02/18 08:34 Dose: 100 mg Ziprasidone (Geodon Im Inj*) 10 mg IM ONCE PRN PRN Reason: AGITATION Last Admin: 09/30/18 10:51 Dose: 10 mg Physical Exam: Constitutional: awake, alert, no distress, no diaphoresis Head: normocephalic, atraumatic Eyes: no pallor, no icterus ENT: moist mucous membranes Neck: soft, supple, no jvd, no stridor CVS: tachy, regular, no murmur Resp: bilateral air entry, mild wheeze on inspiration, no rhales/rhonchi, no acc muscle use Abdomen/GI: soft, nontender, nondistended, BS+ Ext/Msk: warm, pulses+, no edema Skin: intact, warm Neuro: awake, alert, orientedx3, moving all extremities, no gross focal deficit Labs: Laboratory Results - last 24 hr 10/01/18 10/02/18 10/02/18 12:30 04:10 04:10 WBC 9.3 RBC 3.89 Hgb 11.7 L Hct 36 MCV 93 MCH 30 MCHC 32 RDW 15 Plt Count 403 MPV 7.8 Sodium Potassium Chloride Carbon Dioxide Anion Gap BUN Creatinine Est GFR ( Amer) Est GFR (Non-Af Amer) BUN/Creatinine Ratio Glucose Calcium Total Bilirubin Direct Bilirubin Indirect Bilirubin AST ALT Alkaline Phosphatase Ammonia 55 H Total Protein Albumin Globulin Albumin/Globulin Ratio Hepatitis A IgM Ab Nonreactive Hep B Core IgM Ab Nonreactive Hepatitis C Antibody Nonreactive Hepatitis C Ab Index < 0.0 10/02/18 04:10 WBC RBC Hgb Hct MCV MCH MCHC RDW Plt Count MPV Sodium 144 Potassium 3.7 Chloride 108 Carbon Dioxide 24 Anion Gap 12 H BUN 5 L Creatinine 0.49 L Est GFR ( Amer) 171.9 Est GFR (Non-Af Amer) 142.1 BUN/Creatinine Ratio 10.2 Glucose 80 Calcium 8.3 L Total Bilirubin 0.30 Direct Bilirubin 0.10 Indirect Bilirubin 0.2 L AST 13 ALT 6 L Alkaline Phosphatase 85 Ammonia Total Protein 4.8 L Albumin 2.5 L Globulin 2.3 Albumin/Globulin Ratio 1.1 Hepatitis A IgM Ab Hep B Core IgM Ab Hepatitis C Antibody Hepatitis C Ab Index Imaging: cxr 10/01 - bilateral infiltrates improving Assessment: 38y F w/pmhx of polysubstance abuse, chronic pain, h/o pancreatitis episodes; admitted for dyspnea, cough, nausea/vom, found to ahve bilateral pneumonia associated with acute hypoxic respiratroy failure. Course complicated by delirium. -Acute Hypoxic Respiratory Failure -Bilateral pneumonia -Delirium -h/o polysubstance abuse chronic pain Plan: Neuro- improved mental status now. -continuing librium for alcohol withdrawal potential -cont oxycodone for chronic pain q4h prn cont gabapentin -for now will continue lactulose as ammonia was slightly elevated before and now that mental status is improving, may have helped. will dec to BID, likely stop in 1-2 days. -cont melatonin for sleep -seroquel nighttime -delirium prec CVS- BP stable -HR tachycardic; unclear why; more alert, doesnt seem to be withdrawaing this far out from admission. afebrile. taking po. calm. no resp distress -will start d5w 75cc/hr x12hr for mildly elevated sodium level -add metoprolol 12.5mg po bid because HR is 140s -IV abx Resp- on NC 3L, no resp distress -mild insp wheeze+; increase albuterol -no resp distress, minimal cough, no sputum -cont IV abx zosyn -incentive spirometry ID- afebrile. wbc normal now. cxr 10/01 with bialteral infiltrates improved since 09/27 -off doxy; cont zosyn (day 11/02); ID following GI- PO regular diet; h2b proph -lactulose bid for elevated ammonia; taper down tomorrow Renal- Cr normal. K 3.7, replete kcl 40meq pox1. Na 144. start d5w 75cc/hr x12 hr Heme- hg stable. -DVT proph heparin sq Endo-Maintain BG<200, insulin protocol as needed Musculsk- pressure ulcer prophylaxis. oob to chair Wounds- none Nutrition- reg diet DVT prophylaxis: heparin sq GI prophylaxis: h2b Central Line: no Arterial Line: no Henson Cathetor: no Disposition: Patient requires Critical Care/ICU for pneumonia, hypoxic resp failure, tachycardia; if tachycardia improving later today, may downgrade to medical floor Patient clinical status: improving Code Status: full code Yuniel To MD Recording Artist (Electronically Signed)
[2018-10-02] MEDS ORDERED: D5W 1/2 NS 1000 ML BAG* 1,000 ML IV SCH (15:00)
[2018-10-02] MEDS: Baclofen TAB* 10 MG PO PRN (15:23)
[2018-10-02] MEDS ORDERED: oxyCODONE TAB* 5 MG TAB PO PRN (15:40)
[2018-10-02] MEDS ORDERED: Metoprolol Tartrate TAB* 25 MG PO SCH (21:00)
[2018-10-02] MEDS ORDERED: oxyCODONE TAB* 5 MG TAB PO ONE (21:21)
[2018-10-02] MEDS ORDERED: LORazepam TAB(*) 0.5 MG PO PRN (21:21)
[2018-10-02] MEDS: QUEtiapine TAB* 100 MG PO SCH (22:29)
[2018-10-03] MEDS: CLOTRIMAZOLE PO SCH ×6 (05:46→22:15)
[2018-10-03 06:45] LABS: Hematocrit 33 % (33-41); Hemoglobin 10.8 g/dL (12.0-16.0); Mean Corpuscular HGB Conc 33 g/dL (31-36); Mean Corpuscular Hemoglobin 31 pg (27-31); Mean Corpuscular Volume 94 fL (80-97); Mean Platelet Volume 8.1 fL (7.4-10.4); Platelet Count 348 10^3/uL (150-450); Red Blood Count 3.48 10^6 /uL (3.70-4.87); Red Cell Distribution Width 15 % (10.5-15); White Blood Count 8.2 10^3/uL (3.5-10.8)
[2018-10-03 06:53] LABS: ALT 6 U/L (7-52); AST 15 U/L (13-39); Albumin 2.4 g/dL (3.2-5.2); Alkaline Phosphatase 68 U/L (34-104); Globulin 2.4 g/dL (2-4); Total Protein 4.8 g/dL (6.4-8.9)
[2018-10-03] MEDS ORDERED: Diazepam TAB(*) 5 MG PO PRN (07:21)
[2018-10-03] MEDS: Gabapentin CAP(*) 300 MG PO SCH ×3 (10:03→21:06)
[2018-10-03 10:04] LABS: Anion Gap 7 mmol/L (2-11); BUN/Creatinine Ratio 14.9 (8-20); Blood Urea Nitrogen 10 mg/dL (6-24); CO2 Carbon Dioxide 24 mmol/L (22-32); Calcium 8.2 mg/dL (8.6-10.3); Chloride 109 mmol/L (101-111); EGFR African American 119.8 (>60); Glucose 101 mg/dL (70-100); Sodium 140 mmol/L (135-145)
[2018-10-03] MEDS: Heparin VIAL(*) 5000 UNITS/ML VIAL (FIVE THOUSAND) SUBCUT SCH ×2 (10:05→21:06)
[2018-10-03] MEDS: Benzonatate CAP* 100 MG PO SCH ×3 (10:05→21:05)
[2018-10-03] MEDS: chlordiazePOXIDE CAP* 25 MG PO SCH ×3 (10:05→21:05)
[2018-10-03] MEDS: Lactulose* 15 ML UDC PO SCH ×2 (10:06→21:07)
[2018-10-03] MEDS: Famotidine TAB* 20 MG PO SCH ×2 (10:06→21:06)
[2018-10-03] MEDS ORDERED: Potassium Chloride LIQUID* 20 MEQ PACKET PO ONE (10:07)
[2018-10-03] MEDS: Thiamine TAB* 100 MG TAB PO SCH (10:07)
[2018-10-03] MEDS: Nicotine PATCH 21 MG/24 HR* PATCH TRANSDERM SCH (10:18)
[2018-10-03] MEDS: oxyCODONE TAB* 5 MG TAB PO PRN (12:44)
[2018-10-03] MEDS ORDERED: Potassium Chlor TAB* 20 MEQ TAB.ER PO ONE (13:00)
[2018-10-03] MEDS ORDERED: oxyCODONE TAB* 5 MG TAB PO PRN (13:21)
--- NOTE | 2018-10-03 13:50 | PN ---
Subjective Date of Service: 10/03/18 Interval History: Patient has significant fluctuations in mental state. Patient makes consistent statements inappropriate to the scenario. Patient continues to discuss leaving the hospital but has no insight into the seriousness of her respiratory failure. Patient complains of abdominal pain radiating to her back. Patient denies F/C, CP, dysuria, dizziness, cough, or other pain. Family History: Unchanged from Admission Social History: Unchanged from Admission Past Medical History: Unchanged from Admission Objective Active Medications: Albuterol (Ventolin 2.5 Mg/3 Ml Neb.Apple*) 2.5 mg INH Q4H PRN PRN Reason: SOB/WHEEZING Baclofen (Lioresal Tab*) 10 mg PO Q8HR PRN PRN Reason: PAIN Last Admin: 10/02/18 15:23 Dose: 10 mg Benzonatate (Tessalon Cap*) 200 mg PO TID [facility] Last Admin: 10/03/18 10:05 Dose: 200 mg Chlordiazepoxide (Librium Cap*) 25 mg PO TID [facility] Stop: 10/05/18 20:09 Last Admin: 10/03/18 10:05 Dose: 25 mg Clotrimazole (Mycelex Ekaterina*) 10 mg PO FIVE TIMES DAILY [facility] Last Admin: 10/03/18 10:03 Dose: 10 mg Device (Nicotine Mouth Piece*) 1 each INH .USE W/ CARTRIDGE PRN PRN Reason: WITHDRAWAL - NICOTINE Last Admin: 10/01/18 19:58 Dose: 1 each Diazepam (Valium Tab(*)) 5 mg PO Q8H PRN PRN Reason: ANXIETY Famotidine (Pepcid Tab*) 20 mg PO BID [facility]; Protocol Last Admin: 10/03/18 10:06 Dose: 20 mg Gabapentin (Neurontin Cap(*)) 900 mg PO TID [facility] Last Admin: 10/03/18 10:03 Dose: 900 mg Heparin Sodium (Porcine) (Heparin Vial(*)) 5,000 units SUBCUT Q12HR [facility] Last Admin: 10/03/18 10:05 Dose: 5,000 units Heparin Sodium (Porcine) (Heparin Flush Picc/Ml/Cvc(*)) 1 - 3 ml FLUSH 0600, 1800 [facility]; Protocol Last Admin: 10/03/18 06:13 Dose: 3 ml Lactulose (Lactulose*) 15 ml PO BID [facility] Last Admin: 10/03/18 10:06 Dose: 15 ml Melatonin (Melatonin) 3 mg PO QPM PRN PRN Reason: SLEEP Last Admin: 09/27/18 23:00 Dose: 3 mg Nicotine (Nicotine Patch 21 Mg/24 Hr*) 1 patch TRANSDERM DAILY@0800 [facility] Last Admin: 10/03/18 10:18 Dose: 1 patch Nicotine (Nicotine Inhaler*) 10 mg INH Q2H PRN PRN Reason: CRAVING Last Admin: 10/02/18 15:53 Dose: 10 mg Ondansetron HCl (Zofran Inj*) 4 mg IV Q6H PRN PRN Reason: NAUSEA Last Admin: 10/02/18 11:44 Dose: 4 mg Oxycodone HCl (Roxycodone Tab*) 12.5 mg PO Q4H PRN PRN Reason: PAIN - MODERATE Prochlorperazine Edisylate (Compazine Inj*) 5 mg IV Q6H PRN PRN Reason: NAUSEA/VOMITING Last Admin: 09/25/18 12:30 Dose: 5 mg Quetiapine Fumarate (Seroquel Tab*) 300 mg PO BEDTIME [facility] Last Admin: 10/02/18 22:29 Dose: 300 mg Thiamine HCl (Vitamin B-1 Tab*) 100 mg PO DAILY [facility] Last Admin: 10/03/18 10:07 Dose: 100 mg Vital Signs - 8 hr 10/03/18 10/03/18 10/03/18 05:48 07:56 08:00 Temperature 97.5 F Pulse Rate 82 69 Respiratory 16 17 16 Rate Blood Pressure 100/70 (mmHg) O2 Sat by Pulse 99 94 Oximetry 10/03/18 10/03/18 10/03/18 10:03 10:05 11:02 Temperature 97.6 F Pulse Rate 108 Respiratory 16 16 20 Rate Blood Pressure 95/61 (mmHg) O2 Sat by Pulse 100 Oximetry 10/03/18 10/03/18 12:43 12:44 Temperature Pulse Rate Respiratory 16 16 Rate Blood Pressure (mmHg) O2 Sat by Pulse Oximetry Oxygen Devices in Use Now: Nasal Cannula Appearance: Patient is a 38yo female who appears much older than stated age and is sitting in the bed in [facility]. Eyes: No Scleral Icterus, PERRLA Ears/Nose/Mouth/Throat: NL Teeth, Lips, Gums, Clear Oropharnyx, Mucous Membranes Moist Neck: NL Appearance and Movements; NL JVP, Trachea Midline Respiratory: Symmetrical Chest Expansion and Respiratory Effort, - - Diminished , singular wheeze in RUL. Cardiovascular: NL Sounds; No Murmurs; No JVD, No Edema, - - Tachycardia Abdominal: No Hepatosplenomegaly, - - Tender to palpation in Epigastric Area. Lymphatic: No Cervical Adenopathy Extremities: No Edema, No Clubbing, Cyanosis Skin: No Rash or Ulcers, No Nodules or Sclerosis Neurological: Alert and Oriented x 3, NL Sensation, NL Muscle Strength and Tone , - - CN II-XII intact. Result Diagrams: 10/03/18 06:05 10/03/18 06:05 Additional Lab and Data: Lab Results Microbiology and Other Data: Microbiology 09/24/18 23:23 Legionella Urinary Antigen - Final Urine Negative Legionella Antigen Streptococcus pneumoniae Ag Screen - Final Negative S. pneumo Antigen Assess/Plan/Problems-Billing Assessment: 38 yo F with PMH for alcoholism, Chronic Pancreatitis, who is admitted with pneumonia with severe acute hypoxic respiratory failure which is improving but patient continues to have significant delirium and abdominal pain with desaturations with minimal time off oxygen. - Patient Problems (1) Pneumonia Current Visit: No Status: Acute Code(s): J18.9 - PNEUMONIA, UNSPECIFIED ORGANISM SNOMED Code(s): 652855244 Comment: - With acute hypoxemic resp failure. Down to 3L NC but with quick desaturations off O2. - Off Vapotherm and out of ICU - Atypical Lung infiltrate Pattern, Strep and Legionella antigen negative, not immunocompromised - Viral tests pending. - Unable to tolerate steroids due to delirium - Appreciate ID consult, completed 7 days of Zosyn/Doxycycline (2) Chronic pancreatitis Current Visit: Yes Status: Acute Code(s): K86.1 - OTHER CHRONIC PANCREATITIS SNOMED Code(s): 610040189 Comment: - Persistent severe abdominal pain radiating to back. - Treat with opiates and wean when able - No signs of pancreatic insufficiency. (3) Delirium Current Visit: Yes Status: Acute Priority: High Code(s): R41.0 - DISORIENTATION, UNSPECIFIED SNOMED Code(s): 1470832 Comment: - Profound, fluctuating course - Initially from possible alcohol/opiate withdrawal - Now with WAM appearance still after 9 days in the hospital, likely from Benzodiazepine withdrawal - Continue Scheduled Librium and PRN Valium - Ammonia minimally elevated, taper lactulose when delirium lessens. (4) Alcohol abuse Current Visit: No Status: Chronic Code(s): F10.10 - ALCOHOL ABUSE, UNCOMPLICATED SNOMED Code(s): 92316417 Comment: - With Chronic Pancreatitis and Likely early liver dysfunction - Counseled again to abstain entirely. - Will need community support. (5) DVT prophylaxis Current Visit: No Status: Acute Code(s): MMX5473 - SNOMED Code(s): 548349622 Comment: HSQ (6) Full code status Current Visit: No Status: Acute Code(s): Z78.9 - OTHER SPECIFIED HEALTH STATUS SNOMED Code(s): 755171258 Status and Disposition: inpatient, possible Discharge in 1-2 days.
[2018-10-03] MEDS ORDERED: Lactated Ringers 1000 ML Bag* 1,000 ML IV ONE (16:00)
[2018-10-03] MEDS: Metoprolol Tartrate TAB* 25 MG PO SCH (19:23)
[2018-10-03 19:31] LABS: Urine Appearance Cloudy; Urine Bacteria Absent (Absent); Urine Bilirubin Negative (Negative); Urine Blood 2+ (Negative); Urine Color Yellow; Urine Glucose Negative (Negative); Urine Ketones Negative (Negative); Urine Nitrite Negative (Negative); Urine Protein Negative (Negative); Urine Red Blood Cell 1+(3-5/hpf) (Absent); Urine Specific Gravity 1.014 (1.010-1.030); Urine Squamous Epithelial Cell Present (Absent); Urine Urobilinogen Negative (Negative); Urine White Blood Cell 1+(6-10/hpf) (Absent)
[2018-10-03] MEDS: Nicotine Inhaler* 10 MG AMP INH PRN (19:45)
[2018-10-03] MEDS: QUEtiapine TAB* 100 MG PO SCH (22:14)
[2018-10-04] MEDS: Nicotine Inhaler* 10 MG AMP INH PRN ×2 (02:52→14:07)
[2018-10-04] MEDS: CLOTRIMAZOLE PO SCH ×5 (05:05→21:27)
[2018-10-04] MEDS ORDERED: NS 0.9% 250 ML* 250 ML IV ONE (05:26)
[2018-10-04 05:48] LABS: ABS Basophils 0.1 10^3/ul (0-0.2); ABS Eosinophils 0.5 10^3/ul (0-0.6); ABS Lymphocytes 2.2 10^3/ul (1.0-4.8); ABS Monocytes 0.5 10^3/ul (0-0.8); ABS Neutrophils 3.5 10^3/ul (1.5-7.7); ABS Nucleated RBC 0 10^3/ul; Eosinophil % 7.3 %; Hematocrit 33 % (33-41); Lymphocyte % 32.5 %; Mean Corpuscular HGB Conc 33 g/dL (31-36); Mean Corpuscular Hemoglobin 32 pg (27-31); Mean Corpuscular Volume 95 fL (80-97); Mean Platelet Volume 7.9 fL (7.4-10.4); Nucleated Red Blood Cells % 0; Platelet Count 362 10^3/uL (150-450); Red Cell Distribution Width 15 % (10.5-15); White Blood Count 6.8 10^3/uL (3.5-10.8)
[2018-10-04 06:02] LABS: BUN/Creatinine Ratio 10.4 (8-20); Calcium 8.6 mg/dL (8.6-10.3); EGFR African American 119.8 (>60); Magnesium 1.8 mg/dL (1.9-2.7); Potassium 3.8 mmol/L (3.5-5.0)
--- NOTE | 2018-10-04 09:10 | PN ---
Progress Note - Progress Note Date of Service: 10/04/18 SOAP: Subjective: CC: Pneumonia HPI: Ms. Carlton is a 38 yo female with PMH significant for chronic pancreatitis, asthma, and chronic back pain. Reports fever and chills over the past few days, but states that this has resolved today. States that she had an few episodes of diarrhea today after receiving medications. There are no bowel movements recorded by [facility] staff since 10/01/18. She is receiving lactulose daily. Objective: Vital Signs 10/04/18 10/04/18 06:42 07:42 Temperature 97.2 F Pulse Rate 107 Respiratory 16 20 Rate Blood Pressure 104/64 (mmHg) O2 Sat by Pulse 95 Oximetry Physical Exam: General: NAD, sitting up on the side of the bed Neurological: Alert and Oriented to Person and Place Cardiovascular: Heart rate regular, no murmur Respiratory: Lung sounds clear in the upper lobes and crackles in bilateral bases Abdominal: Bowel sounds +, ABD soft, non tender and non distended Skin: No rashes seen on the exposed skin Laboratory Tests 10/04/18 10/04/18 05:35 05:35 WBC 6.8 Hgb 11.0 L Hct 33 Plt Count 362 Sodium 142 Potassium 3.8 Chloride 112 H Carbon Dioxide 26 BUN 7 Creatinine 0.67 Glucose 94 Microbiology 09/25/18 05:28 Aerobic Blood Culture - Final Blood Venous No Growth Day 5 Anaerobic Blood Culture - Final No Growth Day 5 09/24/18 18:30 Aerobic Blood Culture - Final Blood Venous No Growth Day 5 Anaerobic Blood Culture - Final No Growth Day 5 09/25/18 10:00 Nasal Screen MRSA (PCR) - Final Nasal Mrsa Not Detected 09/25/18 10:00 Influenza Types A,B Antigen - Final Nasal Specimen received for Influenza A/B Molecular testing 09/24/18 23:23 Legionella Urinary Antigen - Final Urine Negative Legionella Antigen Streptococcus pneumoniae Ag Screen - Final Negative S. pneumo Antigen Assessment: 1. Community acquired pneumonia. Suspect bacterial including atypical or viral cause. Afebrile, leukocytosis resolved. Legionella and S. pneumo antigens negative. Blood cultures with no growth to date. Adenovirus and hMPV virus PCRs are pending at this time. 2. Acute respiratory failure. Improving, has been weaned from vapotherm down to O2 @ 2 L via NC. 3. ETOH withdrawal. Plan: Completed 7 day course of Zosyn on 10/02/18. No further ABX needed.
[2018-10-04] MEDS: Heparin VIAL(*) 5000 UNITS/ML VIAL (FIVE THOUSAND) SUBCUT SCH ×2 (09:46→20:38)
[2018-10-04] MEDS: Gabapentin CAP(*) 300 MG PO SCH ×3 (09:49→20:36)
[2018-10-04] MEDS: Thiamine TAB* 100 MG TAB PO SCH (09:51)
[2018-10-04] MEDS: chlordiazePOXIDE CAP* 25 MG PO SCH ×3 (09:52→20:34)
[2018-10-04] MEDS: Benzonatate CAP* 100 MG PO SCH ×3 (09:52→20:33)
[2018-10-04] MEDS: Famotidine TAB* 20 MG PO SCH ×2 (09:53→20:36)
[2018-10-04] MEDS: oxyCODONE TAB* 5 MG TAB PO PRN ×2 (09:55→20:42)
[2018-10-04] MEDS: Nicotine PATCH 21 MG/24 HR* PATCH TRANSDERM SCH (09:57)
[2018-10-04] MEDS: Lactulose* 15 ML UDC PO SCH ×2 (10:44→20:32)
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
[2018-10-04] MEDS: Diazepam TAB(*) 10 MG PO SCH ×2 (12:33→22:02)
--- NOTE | 2018-10-04 16:20 | PN ---
Subjective Date of Service: 10/04/18 Interval History: Patient continues with fluctuating mental status. Very Impulsive, not at all oriented, threatening to leave frequently. Patient states she has pain but is not as preoccupied by it as previously. Patient denies CP, SOB, cough, F/C, N/ V. Patient is having loose stools but cannot quantify the amount. Thinks abdominal pain is due to worms in abdomen. Family History: Unchanged from Admission Social History: Unchanged from Admission Past Medical History: Unchanged from Admission Objective Active Medications: Albuterol (Ventolin 2.5 Mg/3 Ml Neb.Apple*) 2.5 mg INH Q4H PRN PRN Reason: SOB/WHEEZING Baclofen (Lioresal Tab*) 10 mg PO Q8HR PRN PRN Reason: PAIN Last Admin: 10/02/18 15:23 Dose: 10 mg Benzonatate (Tessalon Cap*) 200 mg PO TID [facility] Last Admin: 10/04/18 14:09 Dose: 200 mg Chlordiazepoxide (Librium Cap*) 25 mg PO TID [facility] Stop: 10/05/18 20:09 Last Admin: 10/04/18 14:09 Dose: 25 mg Clotrimazole (Mycelex Ekaterina*) 10 mg PO FIVE TIMES DAILY [facility] Last Admin: 10/04/18 14:09 Dose: 10 mg Device (Nicotine Mouth Piece*) 1 each INH .USE W/ CARTRIDGE PRN PRN Reason: WITHDRAWAL - NICOTINE Last Admin: 10/01/18 19:58 Dose: 1 each Diazepam (Valium Tab(*)) 0 - 30 mg PO .PER [facility] PROTOCOL [facility]; Protocol Last Admin: 10/04/18 12:33 Dose: 25 mg Famotidine (Pepcid Tab*) 20 mg PO BID [facility]; Protocol Last Admin: 10/04/18 09:53 Dose: 20 mg Folic Acid (Folvite Tab*) 1 mg PO DAILY [facility] Gabapentin (Neurontin Cap(*)) 900 mg PO TID [facility] Last Admin: 10/04/18 14:08 Dose: 900 mg Heparin Sodium (Porcine) (Heparin Vial(*)) 5,000 units SUBCUT Q12HR [facility] Last Admin: 10/04/18 09:46 Dose: 5,000 units Heparin Sodium (Porcine) (Heparin Flush Picc/Ml/Cvc(*)) 1 - 3 ml FLUSH 0600, 1800 [facility]; Protocol Last Admin: 10/04/18 05:17 Dose: 3 ml Lactulose (Lactulose*) 15 ml PO BID [facility] Last Admin: 10/04/18 10:44 Dose: Not Given Melatonin (Melatonin) 3 mg PO QPM PRN PRN Reason: SLEEP Last Admin: 09/27/18 23:00 Dose: 3 mg Nicotine (Nicotine Patch 21 Mg/24 Hr*) 1 patch TRANSDERM DAILY@0800 [facility] Last Admin: 10/04/18 09:57 Dose: 1 patch Nicotine (Nicotine Inhaler*) 10 mg INH Q2H PRN PRN Reason: CRAVING Last Admin: 10/04/18 14:07 Dose: 10 mg Ondansetron HCl (Zofran Inj*) 4 mg IV Q6H PRN PRN Reason: NAUSEA Last Admin: 10/02/18 11:44 Dose: 4 mg Oxycodone HCl (Roxycodone Tab*) 10 mg PO Q4H PRN PRN Reason: PAIN - MODERATE Last Admin: 10/04/18 09:55 Dose: 10 mg Prochlorperazine Edisylate (Compazine Inj*) 5 mg IV Q6H PRN PRN Reason: NAUSEA/VOMITING Last Admin: 09/25/18 12:30 Dose: 5 mg Quetiapine Fumarate (Seroquel Tab*) 400 mg PO BEDTIME [facility] Thiamine HCl (Vitamin B-1 Tab*) 100 mg PO DAILY [facility] Last Admin: 10/04/18 09:51 Dose: 100 mg Thiamine HCl (Vitamin B-1 Tab*) 100 mg PO DAILY [facility] Vital Signs - 8 hr 10/04/18 10/04/18 10/04/18 08:30 09:49 09:52 Temperature Pulse Rate Respiratory 16 18 18 Rate Blood Pressure (mmHg) O2 Sat by Pulse Oximetry 10/04/18 10/04/18 10/04/18 09:55 11:00 12:02 Temperature 98.1 F Pulse Rate 125 Respiratory 18 18 16 Rate Blood Pressure 99/59 (mmHg) O2 Sat by Pulse 92 Oximetry 10/04/18 10/04/18 10/04/18 12:33 13:48 13:49 Temperature 98.1 F Pulse Rate 116 Respiratory 18 18 18 Rate Blood Pressure 93/55 (mmHg) O2 Sat by Pulse 94 Oximetry 10/04/18 10/04/18 10/04/18 13:50 14:08 14:09 Temperature Pulse Rate Respiratory 18 18 18 Rate Blood Pressure (mmHg) O2 Sat by Pulse Oximetry 10/04/18 14:31 Temperature Pulse Rate Respiratory 16 Rate Blood Pressure (mmHg) O2 Sat by Pulse Oximetry Oxygen Devices in Use Now: None Appearance: Patient is a 38yo female who appears much older than stated age and is sitting in the bed in [facility]. Eyes: No Scleral Icterus, PERRLA Ears/Nose/Mouth/Throat: NL Teeth, Lips, Gums, Clear Oropharnyx, Mucous Membranes Moist Neck: NL Appearance and Movements; NL JVP, Trachea Midline Respiratory: Symmetrical Chest Expansion and Respiratory Effort, Clear to Auscultation Cardiovascular: NL Sounds; No Murmurs; No JVD, No Edema, - - Tachycardia. Regular Abdominal: No Hepatosplenomegaly, - - Tender to palpation in upper abdomen. Lymphatic: No Cervical Adenopathy Extremities: No Edema, No Clubbing, Cyanosis Skin: No Rash or Ulcers, No Nodules or Sclerosis Neurological: NL Sensation, NL Muscle Strength and Tone, - - CN II-XII intact. Alert and oriented only to self. Result Diagrams: 10/04/18 05:35 10/04/18 05:35 Additional Lab and Data: Lab Results Microbiology and Other Data: Microbiology 09/24/18 23:23 Legionella Urinary Antigen - Final Urine Negative Legionella Antigen Streptococcus pneumoniae Ag Screen - Final Negative S. pneumo Antigen Assess/Plan/Problems-Billing Assessment: 38 yo F with PMH for alcoholism, Chronic Pancreatitis, who is admitted with pneumonia with severe acute hypoxic respiratory failure which is improving but patient continues to have significant delirium and abdominal pain with desaturations with minimal time off oxygen. - Patient Problems (1) Pneumonia Current Visit: No Status: Acute Code(s): J18.9 - PNEUMONIA, UNSPECIFIED ORGANISM SNOMED Code(s): 905076079 Comment: - With acute hypoxemic resp failure, now off oxygen. - Atypical Lung infiltrate Pattern, Strep and Legionella antigen negative, not immunocompromised - Viral tests pending. - Unable to tolerate steroids due to delirium - Appreciate ID consult, completed 7 days of Zosyn/Doxycycline (2) Chronic pancreatitis Current Visit: Yes Status: Acute Code(s): K86.1 - OTHER CHRONIC PANCREATITIS SNOMED Code(s): 958858963 Comment: - Improved severe abdominal pain radiating to back. - Treat with opiates and wean when able - No signs of pancreatic insufficiency. (3) Delirium Current Visit: Yes Status: Acute Priority: High Code(s): R41.0 - DISORIENTATION, UNSPECIFIED SNOMED Code(s): 9994192 Comment: - Profound, fluctuating course - Initially from possible alcohol/opiate withdrawal - Now with WAM appearance still after 10 days in the hospital, likely from Benzodiazepine withdrawal. Patient was on large doses of Midazolam and precedex drip in ICU with abrupt reduction when downgraded to floor. - Continue Scheduled Librium, Start WAM protocol for Valium dosing, wean daily. - Ammonia minimally elevated, taper lactulose when delirium lessens. - Appreciate Psychiatry consult, Lacks capacity to leave against medical advice. (4) Alcohol abuse Current Visit: No Status: Chronic Code(s): F10.10 - ALCOHOL ABUSE, UNCOMPLICATED SNOMED Code(s): 11937962 Comment: - With Chronic Pancreatitis and Likely early liver dysfunction - Counseled again to abstain entirely. - Will need community support. (5) DVT prophylaxis Current Visit: No Status: Acute Code(s): ALR3371 - SNOMED Code(s): 969524362 Comment: HSQ (6) Full code status Current Visit: No Status: Acute Code(s): Z78.9 - OTHER SPECIFIED HEALTH STATUS SNOMED Code(s): 787269862 Status and Disposition: inpatient, Discharge pending resolution of delirium.
[2018-10-04] MEDS: QUEtiapine TAB* 100 MG PO SCH (20:37)
[2018-10-04] MEDS: Baclofen TAB* 10 MG PO PRN (22:02)
[2018-10-04] MEDS: Melatonin 3 MG TAB PO PRN (22:02)
[2018-10-05] MEDS: CLOTRIMAZOLE PO SCH ×5 (05:57→21:37)
[2018-10-05 06:41] LABS: BUN/Creatinine Ratio 6.7 (8-20); Calcium 8.4 mg/dL (8.6-10.3); EGFR African American 105.2 (>60); Potassium 3.7 mmol/L (3.5-5.0)
[2018-10-05] MEDS ORDERED: Thiamine TAB* 100 MG TAB PO SCH (09:00)
[2018-10-05] MEDS: Thiamine TAB* 100 MG TAB PO SCH (10:17)
[2018-10-05] MEDS: Folic Acid TAB* 1 MG PO SCH (10:18)
[2018-10-05] MEDS: Gabapentin CAP(*) 300 MG PO SCH ×3 (10:18→21:45)
[2018-10-05] MEDS: Famotidine TAB* 20 MG PO SCH ×2 (10:18→21:46)
[2018-10-05] MEDS: Benzonatate CAP* 100 MG PO SCH ×3 (10:18→21:46)
[2018-10-05] MEDS: Heparin VIAL(*) 5000 UNITS/ML VIAL (FIVE THOUSAND) SUBCUT SCH ×2 (10:19→21:36)
[2018-10-05] MEDS: Nicotine PATCH 21 MG/24 HR* PATCH TRANSDERM SCH (10:31)
[2018-10-05] MEDS: Lactulose* 15 ML UDC PO SCH ×2 (10:35→10:37)
[2018-10-05] MEDS: chlordiazePOXIDE CAP* 25 MG PO SCH ×2 (10:38→21:45)
[2018-10-05] MEDS: Diazepam TAB(*) 5 MG PO SCH ×2 (12:30→21:44)
[2018-10-05 13:45] LABS: Adenovirus Result Negative (Negative)
[2018-10-05] MEDS: Baclofen TAB* 10 MG PO PRN (14:50)
--- NOTE | 2018-10-05 15:30 | PN ---
Subjective Date of Service: 10/05/18 Interval History: Patient seen and examined. Patient remains confused, received assorted sedating medications overnight. Appears drowsy, Unable to obtain reliable ROS 2/2 sedation. Family History: Unchanged from Admission Social History: Unchanged from Admission Past Medical History: Unchanged from Admission Objective Active Medications: Albuterol (Ventolin 2.5 Mg/3 Ml Neb.Apple*) 2.5 mg INH Q4H PRN PRN Reason: SOB/WHEEZING Baclofen (Lioresal Tab*) 10 mg PO Q8HR PRN PRN Reason: PAIN Last Admin: 10/05/18 14:50 Dose: 10 mg Benzonatate (Tessalon Cap*) 200 mg PO TID [facility] Last Admin: 10/05/18 13:58 Dose: 200 mg Chlordiazepoxide (Librium Cap*) 25 mg PO BID [facility] Clotrimazole (Mycelex Ekaterina*) 10 mg PO FIVE TIMES DAILY [facility] Last Admin: 10/05/18 13:58 Dose: Not Given Device (Nicotine Mouth Piece*) 1 each INH .USE W/ CARTRIDGE PRN PRN Reason: WITHDRAWAL - NICOTINE Last Admin: 10/01/18 19:58 Dose: 1 each Diazepam (Valium Tab(*)) 2.5 mg PO TID [facility] Last Admin: 10/05/18 12:30 Dose: 2.5 mg Famotidine (Pepcid Tab*) 20 mg PO BID [facility]; Protocol Last Admin: 10/05/18 10:18 Dose: 20 mg Folic Acid (Folvite Tab*) 1 mg PO DAILY [facility] Last Admin: 10/05/18 10:18 Dose: 1 mg Gabapentin (Neurontin Cap(*)) 900 mg PO TID [facility] Last Admin: 10/05/18 13:56 Dose: 900 mg Heparin Sodium (Porcine) (Heparin Vial(*)) 5,000 units SUBCUT Q12HR [facility] Last Admin: 10/05/18 10:19 Dose: 5,000 units Heparin Sodium (Porcine) (Heparin Flush Picc/Ml/Cvc(*)) 1 - 3 ml FLUSH 0600, 1800 [facility]; Protocol Last Admin: 10/05/18 05:58 Dose: 3 ml Melatonin (Melatonin) 3 mg PO QPM PRN PRN Reason: SLEEP Last Admin: 10/04/18 22:02 Dose: 3 mg Nicotine (Nicotine Patch 21 Mg/24 Hr*) 1 patch TRANSDERM DAILY@0800 [facility] Last Admin: 10/05/18 10:31 Dose: 1 patch Nicotine (Nicotine Inhaler*) 10 mg INH Q2H PRN PRN Reason: CRAVING Last Admin: 10/04/18 14:07 Dose: 10 mg Ondansetron HCl (Zofran Inj*) 4 mg IV Q6H PRN PRN Reason: NAUSEA Last Admin: 10/02/18 11:44 Dose: 4 mg Oxycodone HCl (Roxycodone Tab*) 5 mg PO Q8H PRN PRN Reason: PAIN - MODERATE Prochlorperazine Edisylate (Compazine Inj*) 5 mg IV Q6H PRN PRN Reason: NAUSEA/VOMITING Last Admin: 09/25/18 12:30 Dose: 5 mg Quetiapine Fumarate (Seroquel Tab*) 400 mg PO BEDTIME [facility] Last Admin: 10/04/18 20:37 Dose: 400 mg Thiamine HCl (Vitamin B-1 Tab*) 100 mg PO DAILY [facility] Last Admin: 10/05/18 10:17 Dose: 100 mg Vital Signs - 8 hr 10/05/18 10/05/18 10/05/18 08:05 08:18 10:05 Temperature 97.9 F 98.5 F Pulse Rate 98 72 Respiratory 18 18 18 Rate Blood Pressure 91/55 83/52 (mmHg) O2 Sat by Pulse 87 97 Oximetry 10/05/18 10/05/18 10/05/18 10:18 12:30 13:56 Temperature Pulse Rate Respiratory 16 17 17 Rate Blood Pressure (mmHg) O2 Sat by Pulse Oximetry 10/05/18 10/05/18 14:05 14:34 Temperature Pulse Rate Respiratory 16 17 Rate Blood Pressure (mmHg) O2 Sat by Pulse Oximetry Oxygen Devices in Use Now: Nasal Cannula Appearance: pale, drowsy, NAD Eyes: No Scleral Icterus, PERRLA Ears/Nose/Mouth/Throat: NL Teeth, Lips, Gums, Mucous Membranes Moist Neck: NL Appearance and Movements; NL JVP, Trachea Midline Respiratory: Symmetrical Chest Expansion and Respiratory Effort, Clear to Auscultation Cardiovascular: NL Sounds; No Murmurs; No JVD, RRR, No Edema Abdominal: NL Sounds; No Tenderness; No Distention Extremities: No Clubbing, Cyanosis, - Skin: No Rash or Ulcers Neurological: - - confused Lines/Tubes/Other Access: Clean, Dry and Intact PICC Line - CDI Nutrition: Taking PO's Result Diagrams: 10/04/18 05:35 10/05/18 06:07 Additional Lab and Data: Lab Results Microbiology and Other Data: Microbiology 09/24/18 23:23 Legionella Urinary Antigen - Final Urine Negative Legionella Antigen Streptococcus pneumoniae Ag Screen - Final Negative S. pneumo Antigen Assess/Plan/Problems-Billing Assessment: This is a 38 yo F with PMH for alcoholism, Chronic Pancreatitis, who is admitted with pneumonia with severe acute hypoxic respiratory failure which is improving but patient continues to have significant delirium and abdominal pain with desaturations with minimal time off oxygen. - Patient Problems (1) Chronic pancreatitis Current Visit: Yes Status: Acute Code(s): K86.1 - OTHER CHRONIC PANCREATITIS SNOMED Code(s): 747077415 Comment: - Lipase at admission was <10 and is 20 today and US did not fully visualize the pancrease but was seen dis not show necrosis or other acute findings, and she has no fever nausea or vomiting - Not convinced this is an acute on chronic pancreatitis, patient has had med seeking behavior in the past and is desatting and heavily medication since yesterday for aggressive behavior and WAM assessment scoring (2) Encephalopathy acute Code(s): G93.40 - ENCEPHALOPATHY, UNSPECIFIED SNOMED Code(s): 24259409 Comment: - Etiology likely multifactorial, including ETOH withdrawal/delirium, or steroid induced delirium vs sepsis related encephalopathy, or a combination - less inclined to believe ETOH withdrawal still, as patient has been hospitalized for 10 days - Psychiatry following, seroquel initiated, patient does not have capacity at this time - Decrease pain meds and benzodiazepines, will DC WAM - Behavioral pattern of aggressiveness vs lethargy, continue librium TID and valium PRN - Recommend patient has a washout period with reduced narcotics and other sedating meds for the next 24 hours to accurately assess mentation/behavioral disturbance - Appreicate any further recs by psychiatry (3) Substance abuse Code(s): F19.10 - OTHER PSYCHOACTIVE SUBSTANCE ABUSE, UNCOMPLICATED SNOMED Code(s): 85884607 Comment: - Long standing history of opiate abuse - Decreased opioids in light of sedation (4) Alcohol abuse Code(s): F10.10 - ALCOHOL ABUSE, UNCOMPLICATED SNOMED Code(s): 15617361 Comment: - With Chronic Pancreatitis and early liver dysfunction - WAM discontinued, as patient is >10 days out (5) Chronic back pain Code(s): M54.9 - DORSALGIA, UNSPECIFIED; G89.29 - OTHER CHRONIC PAIN SNOMED Code(s): 654152238 Comment: - Continue gabapentin and baclofen, decreased oxycodone dose and frequency 2/2 oversedation (6) Pneumonia Code(s): J18.9 - PNEUMONIA, UNSPECIFIED ORGANISM SNOMED Code(s): 146847969 Comment: - With acute hypoxemic resp failure, was off oxygen but now placed back on 2/2 lethargy and desaturations, however, this is likely a result of oversedation rather than CAP - Atypical Lung infiltrate Pattern, Strep and Legionella antigen negative, not immunocompromised - Appreciate ID consult, completed 7 days of Zosyn/Doxycycline - Patient was on room air, then needed O2 last night 2/2 hypoxia but she was obtunded - Titrate O2 down as sedating meds wear off (7) Tobacco abuse Code(s): Z72.0 - TOBACCO USE SNOMED Code(s): 219006517 Comment: Pt advised to quit smoking and avoid second hand smoke. Nicotine patch 21 mg/d ordered. (8) DVT prophylaxis Code(s): QXD6259 - SNOMED Code(s): 601210798 Comment: - HSQ (9) Full code status Code(s): Z78.9 - OTHER SPECIFIED HEALTH STATUS SNOMED Code(s): 492461952 Status and Disposition: Inpatient, Discharge plan to home when delerium resolves. Patient should have inpatient treatment for polysubstance abuse, however, per record/history, it seems patient has low motivation to do so. Social work following.
[2018-10-05] MEDS ORDERED: chlordiazePOXIDE CAP* 25 MG ONE (15:43)
[2018-10-05] MEDS: Nicotine Inhaler* 10 MG AMP INH PRN (18:24)
[2018-10-05] MEDS: oxyCODONE TAB* 5 MG TAB PO PRN (18:37)
[2018-10-05] MEDS: Mouth Piece, Nicotine* 1 EACH CARTRIDGE INH PRN (21:10)
[2018-10-05] MEDS: QUEtiapine TAB* 100 MG PO SCH (21:44)
[2018-10-06] MEDS: CLOTRIMAZOLE PO SCH ×5 (05:51→22:42)
[2018-10-06] MEDS: Nicotine PATCH 21 MG/24 HR* PATCH TRANSDERM SCH (09:53)
[2018-10-06] MEDS: Heparin VIAL(*) 5000 UNITS/ML VIAL (FIVE THOUSAND) SUBCUT SCH ×2 (09:59→22:42)
[2018-10-06] MEDS: Folic Acid TAB* 1 MG PO SCH (09:59)
[2018-10-06] MEDS: Gabapentin CAP(*) 300 MG PO SCH ×3 (09:59→21:34)
[2018-10-06] MEDS: Diazepam TAB(*) 5 MG PO SCH ×3 (10:00→21:31)
[2018-10-06] MEDS: Benzonatate CAP* 100 MG PO SCH ×3 (10:00→22:42)
[2018-10-06] MEDS: chlordiazePOXIDE CAP* 25 MG PO SCH ×2 (10:01→21:36)
[2018-10-06] MEDS: Famotidine TAB* 20 MG PO SCH ×2 (10:02→21:36)
[2018-10-06] MEDS: Thiamine TAB* 100 MG TAB PO SCH (10:02)
[2018-10-06] MEDS: oxyCODONE TAB* 5 MG TAB PO PRN ×2 (10:37→18:37)
[2018-10-06] MEDS: Nicotine Inhaler* 10 MG AMP INH PRN ×3 (15:41→21:30)
--- NOTE | 2018-10-06 16:40 | PN ---
Subjective Date of Service: 10/06/18 Interval History: Ms. Carlton is feeling fine today. She continues to have band-like upper abdominal pain which is worse with exertion. There are no alleviating factors. She is anxious to be discharged, but does not have housing at this point. She denies CP, SOB, N/V. Somewhat poor appetite, though she reports this is typical for her. No concerns from nursing. Family History: Unchanged from Admission Social History: Unchanged from Admission Past Medical History: Unchanged from Admission Objective Active Medications: Albuterol (Ventolin 2.5 Mg/3 Ml Neb.Apple*) 2.5 mg INH Q4H PRN SOB/WHEEZING Baclofen (Lioresal Tab*) 10 mg PO Q8HR PRN PAIN Benzonatate (Tessalon Cap*) 200 mg PO TID [facility] Chlordiazepoxide (Librium Cap*) 25 mg PO BID [facility] Clotrimazole (Mycelex Ekaterina*) 10 mg PO FIVE TIMES DAILY [facility] Diazepam (Valium Tab(*)) 2.5 mg PO TID [facility] Famotidine (Pepcid Tab*) 20 mg PO BID [facility]; Protocol Folic Acid (Folvite Tab*) 1 mg PO DAILY [facility] Gabapentin (Neurontin Cap(*)) 900 mg PO TID [facility] Heparin Sodium (Porcine) (Heparin Vial(*)) 5,000 units SUBCUT Q12HR [facility] Heparin Sodium (Porcine) (Heparin Flush Picc/Ml/Cvc(*)) 1 - 3 ml FLUSH 0600, 1800 [facility]; Protocol Melatonin (Melatonin) 3 mg PO QPM PRN SLEEP Nicotine (Nicotine Patch 21 Mg/24 Hr*) 1 patch TRANSDERM DAILY@0800 [facility] Nicotine (Nicotine Inhaler*) 10 mg INH Q2H PRN CRAVING Ondansetron HCl (Zofran Inj*) 4 mg IV Q6H PRN NAUSEA Oxycodone HCl (Roxycodone Tab*) 5 mg PO Q8H PRN PAIN - MODERATE Prochlorperazine Edisylate (Compazine Inj*) 5 mg IV Q6H PRN NAUSEA/VOMITING Quetiapine Fumarate (Seroquel Tab*) 400 mg PO BEDTIME [facility] Thiamine HCl (Vitamin B-1 Tab*) 100 mg PO DAILY [facility] Vital Signs - 8 hr 10/06/18 10/06/18 10/06/18 09:07 09:59 10:00 Temperature 96.8 F Pulse Rate 86 Respiratory 14 18 18 Rate Blood Pressure 113/74 (mmHg) O2 Sat by Pulse 96 Oximetry 10/06/18 10/06/18 10/06/18 10:01 10:37 11:30 Temperature Pulse Rate Respiratory 18 17 16 Rate Blood Pressure (mmHg) O2 Sat by Pulse Oximetry 10/06/18 10/06/18 10/06/18 11:35 12:10 13:53 Temperature Pulse Rate Respiratory 16 16 16 Rate Blood Pressure (mmHg) O2 Sat by Pulse Oximetry 10/06/18 10/06/18 10/06/18 14:04 15:32 15:53 Temperature 97.6 F Pulse Rate 102 Respiratory 17 22 16 Rate Blood Pressure 109/81 (mmHg) O2 Sat by Pulse 99 Oximetry Oxygen Devices in Use Now: None Appearance: Middle-aged female sitting in bed in NAD Eyes: No Scleral Icterus Ears/Nose/Mouth/Throat: Mucous Membranes Moist Neck: NL Appearance and Movements; NL JVP, Trachea Midline Respiratory: Symmetrical Chest Expansion and Respiratory Effort, Clear to Auscultation Cardiovascular: NL Sounds; No Murmurs; No JVD, RRR Abdominal: - - Tender to RUQ and LUQ Neurological: Alert and Oriented x 3 Lines/Tubes/Other Access: Clean, Dry and Intact Peripheral IV Nutrition: Taking PO's Result Diagrams: 10/04/18 05:35 10/05/18 06:07 Assess/Plan/Problems-Billing Assessment: Ms. Carlton is a 38 yo F with PMH for alcoholism, chronic pancreatitis; who is admitted with pneumonia with severe acute hypoxic respiratory failure which is improving but patient continues to have significant delirium and abdominal pain. - Patient Problems (1) Encephalopathy acute Code(s): G93.40 - ENCEPHALOPATHY, UNSPECIFIED Comment: - Etiology likely multifactorial including ETOH withdrawal/delirium, or steroid induced delirium vs sepsis related encephalopathy, or a combination; less inclined to believe ETOH withdrawal still, as patient has been hospitalized for an extended period - Behavioral pattern of aggressiveness vs lethargy - Psychiatry following; seroquel initiated, patient does not have capacity at this time - Decrease pain meds and benzodiazepines further as she should be off these prior to d/c - Continue Librium, Valium (2) Chronic pancreatitis Code(s): K86.1 - OTHER CHRONIC PANCREATITIS Comment: - Lipase not elevated and US did not fully visualize the pancrease but did not show necrosis or other acute findings; no fever, N/V - Not convinced this is an acute on chronic pancreatitis; patient has had med seeking behavior in the past (3) Pneumonia Code(s): J18.9 - PNEUMONIA, UNSPECIFIED ORGANISM Comment: - Resolved - Completed 7 days of Zosyn/doxycycline (4) Alcohol abuse Code(s): F10.10 - ALCOHOL ABUSE, UNCOMPLICATED Comment: - With chronic pancreatitis and early liver dysfunction - Encourage abstinence and outpatient f/u (5) Substance abuse Code(s): F19.10 - OTHER PSYCHOACTIVE SUBSTANCE ABUSE, UNCOMPLICATED Comment: - Long standing history of opiate abuse - Supportive care (6) Chronic back pain Code(s): M54.9 - DORSALGIA, UNSPECIFIED; G89.29 - OTHER CHRONIC PAIN Comment: - Continue gabapentin and baclofen (7) Tobacco abuse Code(s): Z72.0 - TOBACCO USE Comment: - Nicotine replacement (8) DVT prophylaxis Comment: - Heparin SQ (9) Full code status Code(s): Z78.9 - OTHER SPECIFIED HEALTH STATUS Comment: Status and Disposition: Inpatient, Discharge plan to home when delirium resolves. Patient should have inpatient treatment for polysubstance abuse, however, per record/history, it seems patient has low motivation to do so. Social work following. Attending: Glenda Melton
[2018-10-06] MEDS ORDERED: oxyCODONE TAB* 5 MG TAB PO PRN (16:41)
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
[2018-10-06] MEDS: QUEtiapine TAB* 100 MG PO SCH (21:32)
[2018-10-06] MEDS: Melatonin 3 MG TAB PO PRN (21:42)
[2018-10-07 04:58] LABS: ABS Basophils 0.1 10^3/ul (0-0.2); ABS Eosinophils 0.2 10^3/ul (0-0.6); ABS Lymphocytes 2.3 10^3/ul (1.0-4.8); ABS Monocytes 0.8 10^3/ul (0-0.8); ABS Neutrophils 2.7 10^3/ul (1.5-7.7); ABS Nucleated RBC 0 10^3/ul; Eosinophil % 3.5 %; Hematocrit 32 % (33-41); Hemoglobin 10.6 g/dL (12.0-16.0); Lymphocyte % 38.1 %; Mean Corpuscular HGB Conc 33 g/dL (31-36); Mean Corpuscular Hemoglobin 31 pg (27-31); Mean Corpuscular Volume 94 fL (80-97); Mean Platelet Volume 8.5 fL (7.4-10.4); Nucleated Red Blood Cells % 0; Platelet Count 284 10^3/uL (150-450); Red Blood Count 3.42 10^6 /uL (3.70-4.87); Red Cell Distribution Width 15 % (10.5-15)
[2018-10-07 05:16] LABS: BUN/Creatinine Ratio 6.7 (8-20); Calcium 8.5 mg/dL (8.6-10.3); EGFR African American 105.2 (>60); Potassium 3.5 mmol/L (3.5-5.0)
[2018-10-07] MEDS: CLOTRIMAZOLE PO SCH ×3 (08:05→18:15)
[2018-10-07] MEDS: Nicotine PATCH 21 MG/24 HR* PATCH TRANSDERM SCH (09:30)
[2018-10-07] MEDS: Thiamine TAB* 100 MG TAB PO SCH (09:32)
[2018-10-07] MEDS: Gabapentin CAP(*) 300 MG PO SCH ×3 (09:32→20:14)
[2018-10-07] MEDS: Diazepam TAB(*) 5 MG PO SCH ×2 (09:33→20:14)
[2018-10-07] MEDS: chlordiazePOXIDE CAP* 25 MG PO SCH ×2 (09:34→20:13)
[2018-10-07] MEDS: Benzonatate CAP* 100 MG PO SCH ×2 (09:34→18:15)
[2018-10-07] MEDS: Folic Acid TAB* 1 MG PO SCH (09:34)
[2018-10-07] MEDS: Famotidine TAB* 20 MG PO SCH ×2 (09:35→20:13)
[2018-10-07] MEDS: Heparin VIAL(*) 5000 UNITS/ML VIAL (FIVE THOUSAND) SUBCUT SCH (09:35)
--- NOTE | 2018-10-07 14:18 | CONSULT ---
Identification - Patient Identification Reason for Psychiatric Consultation: Incapacitating Symptoms -: Patient is a 38 year old, F admitted on 09/24/18. - MHU Identification Employment Status: Unemployed Hx Psychiatric Hospitalization: No History - Objective HPI: Abby remains distractable, hyperverbal, demanding and agitated at times. Her orientation is completely improved. She is paranoid against select hospital staff and fixated on her pain medications, which she insists are inadequate. She continues to deny SI or HI. Exam Appearance: Obese Hygiene: Normal Grooming: Fairly Well Kept Psychomotor Activities: Abnormal-Increased Exhibits Abnormal Movement: Yes Attitude and Relatedness: Child Like Eye Contact: Fair - Speech Quality: Pressured Latencies: Short Quantity: Copious Patient's Decription of Mood: "Fine" Observed Affect: Fair Affect Consistent with: Euthymia Patient's Thought Process: Disorganized, Loose Associations Thought Content: Yes Paranoid Ideation, No Passive Wish, No Suicidal Planning, No Homicidal Ideation Experiencing Hallucinations: No, Sensorium is Clear Type of Hallucinations: Visual: No, Auditory: No, Command: No Level of Consciousness: Alert Orientation: No Intact, No Orientated to Time, No Orientated to Place, No Orientated to Person Impulse Control: Poor Insight and Judgement: Impaired Impression - Impression Clinical Impression: 38 y.o. single, white female with a history of polydrug dependence (alcohol and opioids mostly) admitted to the medical service for pneumonia presents with agitated, confused, combative behavior in the setting of hypoxemia, alcohol and opioid withdrawal and receipt of corticosteroid therapy. Inpatient DSM-V Dx: F29 Merits Inpatient Hospitalization: Yes BSU: Problem List - Patient Problems (1) Psychoses Current Visit: Yes Status: Acute Priority: High Plan - Treatment Plan Treatment Plan: The patient remains psychotic despite the improvement in her medical condition and the completed detoxification from alcohol. I don't think she's delirious anymore, given her sustained improvement in orientation. I'm concerned about the possibility of corticosteroid induced margarita at this time. We will transfer her to the BSU and begin milieu treatment. We have titrated quetiapine to 400mg nightly but will increase this to 600mg. Patient is refusing drug/ alcohol rehabilitation. Psychiatry will take over care. Continued Medication Management: Different Medication Medications: Current Medications Albuterol (Ventolin 2.5 Mg/3 Ml Neb.Apple*) 2.5 mg INH Q4H PRN PRN Reason: SOB/WHEEZING Baclofen (Lioresal Tab*) 10 mg PO Q8HR PRN PRN Reason: PAIN Last Admin: 10/05/18 14:50 Dose: 10 mg Benzonatate (Tessalon Cap*) 200 mg PO TID [facility] Last Admin: 10/07/18 09:34 Dose: 200 mg Chlordiazepoxide (Librium Cap*) 25 mg PO BID [facility] Last Admin: 10/07/18 09:34 Dose: 25 mg Clotrimazole (Mycelex Ekaterina*) 10 mg PO FIVE TIMES DAILY [facility] Last Admin: 10/07/18 09:54 Dose: Not Given Device (Nicotine Mouth Piece*) 1 each INH .USE W/ CARTRIDGE PRN PRN Reason: WITHDRAWAL - NICOTINE Last Admin: 10/05/18 21:10 Dose: 1 each Diazepam (Valium Tab(*)) 2.5 mg PO BID [facility] Last Admin: 10/07/18 09:33 Dose: 2.5 mg Famotidine (Pepcid Tab*) 20 mg PO BID [facility]; Protocol Last Admin: 10/07/18 09:35 Dose: 20 mg Folic Acid (Folvite Tab*) 1 mg PO DAILY [facility] Last Admin: 10/07/18 09:34 Dose: 1 mg Gabapentin (Neurontin Cap(*)) 900 mg PO TID [facility] Last Admin: 10/07/18 09:32 Dose: 900 mg Melatonin (Melatonin) 3 mg PO QPM PRN PRN Reason: SLEEP Last Admin: 10/06/18 21:42 Dose: 3 mg Nicotine (Nicotine Patch 21 Mg/24 Hr*) 1 patch TRANSDERM DAILY@0800 [facility] Last Admin: 10/07/18 09:30 Dose: 1 patch Nicotine (Nicotine Inhaler*) 10 mg INH Q2H PRN PRN Reason: CRAVING Last Admin: 10/06/18 21:30 Dose: 10 mg Ondansetron HCl (Zofran Inj*) 4 mg IV Q6H PRN PRN Reason: NAUSEA Last Admin: 10/02/18 11:44 Dose: 4 mg Oxycodone HCl (Roxycodone Tab*) 2.5 mg PO Q8H PRN PRN Reason: PAIN - MODERATE Last Admin: 10/06/18 18:37 Dose: 2.5 mg Prochlorperazine Edisylate (Compazine Inj*) 5 mg IV Q6H PRN PRN Reason: NAUSEA/VOMITING Last Admin: 09/25/18 12:30 Dose: 5 mg Quetiapine Fumarate (Seroquel Tab*) 400 mg PO BEDTIME [facility] Last Admin: 10/06/18 21:32 Dose: 400 mg Thiamine HCl (Vitamin B-1 Tab*) 100 mg PO DAILY [facility] Last Admin: 10/07/18 09:32 Dose: 100 mg - Discharge Plan Discharge Plan: Inpatient Hospitalization
[2018-10-07 18:39] LABS: FHMPV Source NASOPHARYNGEAL; Human Metapneumovirus (hMPV) NOT DETECTED
[2018-10-07] MEDS: oxyCODONE TAB* 5 MG TAB PO PRN (20:17)
[2018-10-07] MEDS: Nicotine Inhaler* 10 MG AMP INH PRN (20:27)
[2018-10-07] MEDS ORDERED: QUEtiapine TAB* 300 MG PO SCH (21:00)
--- NOTE | 2018-10-08 00:17 | TRS ---
CC: LUIS M Yung; Dr. Valentin Seaman * TRANSFER SUMMARY: DATE OF ADMISSION: 09/24/18 DATE OF TRANSFER: 10/07/18 PRIMARY CARE PROVIDER: Malina Blount NP. ATTENDING PHYSICIAN: Dr. Glenda Melton * (dictated by Virgen Riggs NP). PRIMARY DIAGNOSES: 1. Acute encephalopathy, multifactorial. 2. Pneumonia. 3. Alcohol abuse. 4. Sepsis. 5. Acute hypoxic respiratory failure. SECONDARY DIAGNOSES: 1. Chronic pancreatitis. 2. Polysubstance abuse. 3. Chronic back pain. STUDIES WHILE IN THE HOSPITAL: 1. Chest x-ray on 09/24/18 reads as confluent and multifactorial consolidation throughout the lungs bilaterally. Recommend followup until resolution to exclude underlying pulmonary parenchymal pathology. 2. EKG on 09/24/18 shows sinus tachycardia with a rate of 104, QTc 442, inverted T waves in III and aVF. This is consistent with previous EKG on file from 2019. 3. Chest CTA on 09/24/18 reads as no visible acute pulmonary embolism. Stable bilateral interstitial and airspace opacities suspicious for pulmonary edema or pneumonitis. There is mild mediastinal lymphadenopathy. No aortic dissection. 4. Chest x-ray on 09/27/18 reads as progressive pneumonia bilaterally, more severe in the left base. 5. EKG on 09/29/18 shows normal sinus rhythm with a rate of 59, QTc of 472, consistent with previous EKG. 6. Chest x-ray on 10/01/18 reads as mild interval improvement in severe bilateral alveolar consolidation. 7. Liver ultrasound on 10/01/18 reads as hepatosteatosis. Incompletely distended gallbladder limiting assessment without gross abnormalities. HISTORY OF PRESENT ILLNESS AND HOSPITAL COURSE: Ms. Carlton is a 38-year-old female with a past medical history of chronic pancreatitis secondary to alcohol abuse, chronic back pain, and polysubstance abuse who presented to the emergency room on 09/24/18 with complaints of shortness of breath. Please see the history and physical by Dr. Interiano for complete summary of the events leading up to this hospitalization. In short, the patient reported that approximately 2 weeks prior, she began to have upper respiratory symptoms, which continued to progress. Ultimately, she developed bilateral pleuritic chest pain and presented to the emergency room out of concern. In the emergency room, she was noted to be tachycardic and tachypneic as well as requiring supplemental oxygen to maintain appropriate oxygen saturations. The patient received an appropriate fluid bolus and was started on Zosyn and doxycycline. The patient was admitted by the hospitalist service. Because of her findings on imaging and hypoxia, she was additionally started on Bactrim and steroids. There was some concern for HIV, though ultimately she did have a negative HIV antibody. The patient was admitted to the intensive care unit due to her compromised respiratory status. She was additionally placed on WAM protocol due to her history of alcoholism. She was seen in consultation by Dr. Gutierrez from infectious disease, who recommended continuing current antibiotics. She did ultimately require Vapotherm up to 40 L/ min. The patient's mother did express concern about her alcoholism and requested a psychiatry consultation. The patient was seen by Dr. Seaman from psychiatry on 09/29/18 and recommended that the patient remain on Versed that she had been started on in the intensive care unit. He also recommended starting the patient on Librium and increasing her Seroquel dose. Dr. Seaman and Dr. Gutierrez both continued to follow the patient throughout the hospitalization. She was noted to be quite delirious, agitated, and was hallucinating and this was felt to be secondary to substance withdrawal. The patient was ultimately transferred out of the intensive care unit on 10/02/18 when her respiratory status and agitation improved. She did ultimately complete a 7-day course of Zosyn and doxycycline per infectious disease recommendations. She was noted to have some abdominal pain consistent with her chronic pancreatitis, though it was not felt as though she had any degree of [id number] pancreatitis as lipase was normal and there was no evidence of pancreatitis on the imaging. The patient's mental status continued to wax and wane, though ultimately she remained confused, agitated, paranoid, and hyperverbal. At this point, she has been cleared medically as there does not appear to be any medical cause for her encephalopathy and it is felt that this may be secondary to chronic alcoholism, steroid-induced delirium, or exacerbation of mental illness, though at this point she has withdrawn fully from alcohol. Dr. Seaman saw the patient again today and felt as though she would benefit from being transferred to the BSU for further psychiatric treatment. This will be done on an involuntary basis. On exam, the patient is agitated and hyperverbal. She is not able to answer most of my questions appropriately. Lung sounds are clear on auscultation and she has been saturating well on room air. She has been up ambulating without any difficulty or shortness of breath with exertion. She continues to complain of chronic back pain and some abdominal pain. She is tender to palpation of bilateral upper quadrants, though this does not appear to be any different from her baseline. She is frustrated that her pain medications have been decreased as she feels as though she is still having chronic pain, though is not able to give me a full explanation of her symptoms. Ms. Carlton is stable for transfer today. Most recent vital signs are as follows : Temp 97.2, heart rate 102, respiratory rate 20, oxygen saturation 99% on room air, blood pressure 118/81. MEDICATIONS AT THE TIME OF TRANSFER: 1. Albuterol 2.5 mg/3 mL 1 neb q.4 hours p.r.n. for shortness of breath, wheezing. 2. Baclofen 10 mg p.o. q.8 hours p.r.n. pain. 3. Librium 25 mg p.o. b.i.d. 4. Diazepam 2.5 mg p.o. b.i.d. 5. Famotidine 20 mg p.o. b.i.d. 6. Folic acid 1 mg p.o. daily. 7. Gabapentin 900 mg p.o. t.i.d. 8. Melatonin 3 mg p.o. at bedtime p.r.n. for insomnia. 9. Nicotine inhaler 10 mg inhalation q.2 hours p.r.n. for nicotine craving. 10. Nicotine patch 21 mg 1 patch transdermal daily. 11. Oxycodone 2.5 mg p.o. q.8 hours p.r.n. for pain. 12. Seroquel 600 mg p.o. at bedtime. 13. Thiamine 100 mg p.o. daily. CONDITION: Stable. DISPOSITION: Behavioral Services Unit at [facility]. DIET: Regular as tolerated. ACTIVITY: As tolerated. FOLLOWUP: She will need to follow up with her primary care provider after discharge from the hospital. This is a summarized report of a complex medical history and hospital stay. For further details, please see the entire medical record. TIME SPENT: Approximately 50 minutes were spent on this transfer. VIRGEN RIGGS, LAND LEVELER [id number]/[facility] #: [id number] LILI
[2018-10-08] MEDS: Baclofen TAB* 10 MG PO PRN (01:36)
[2018-10-08] MEDS: Melatonin 3 MG TAB PO PRN (01:36)
[2018-10-08] MEDS: Gabapentin CAP(*) 300 MG PO SCH ×3 (08:58→21:17)
[2018-10-08] MEDS: Thiamine TAB* 100 MG TAB PO SCH (08:58)
[2018-10-08] MEDS: Nicotine PATCH 21 MG/24 HR* PATCH TRANSDERM SCH (08:58)
[2018-10-08] MEDS: Famotidine TAB* 20 MG PO SCH ×2 (08:58→21:16)
[2018-10-08] MEDS: Diazepam TAB(*) 5 MG PO SCH ×2 (08:59→21:17)
[2018-10-08] MEDS: chlordiazePOXIDE CAP* 25 MG PO SCH (08:59)
[2018-10-08] MEDS: Folic Acid TAB* 1 MG PO SCH (09:02)
--- NOTE | 2018-10-08 13:10 | PN ---
Subjective - Subjective Date of Service: 10/08/18 Service Type: 40233 Hosp care 15 min low complexity Subjective: Abby remains hyperverbal, pressured and disorganized. Staff reports indicate that she is entering peers' rooms, walking on her hands and feet and screaming out nonsequiturs. On exam she appears euphoric at times but irritable at others. She is somewhat fixated on the subject of her oxycodone, about which I refer her to the Hospitalist team. She denies SI or HI but clearly cannot care for herself without structure or supervision. Objective - General Observations Appearance: Disheveled Appears Stated Age: Yes Stature: Overweight Posture: WNL Eye Contact: Intermittent Behavior/Activity: Impulsive - Interaction Observations Attitude Towards Examiner: Demanding Stated Mood: Elevated, Irritable Affect: Labile Speech Pattern/Tone: Pressured Thought Process: Disorganized Thought Content: Paranoid Thought Process: Lethality: Paranoid Ideation Hallucination Type: None Delusion Type: Persecution, Grandeur - Cognitive Function Orientation: A&O x 4 Level of Consciousness: Awake Cognition: WNL Estimated Intelligence: Normal Insight: Difficulty Acknowledging Presence of Psyciatric Problems Judgment Within Normal Limits: No Ability to Make Reasonable Decisions: Serverely Impaired - Medication Compliance Cooperative with Inpatient Medication Regimen: Yes - Group Participation Participates in Group Activities: No Assessment - Assessment Merits Inpatient Hospitalization: For Immediate Safety, For Stabilization Inpatient DSM-V Dx: F29 Clinical Impression: 38 y.o. single, white female with a history of polydrug dependence (alcohol and opioids mostly) admitted to the medical service for pneumonia presents with agitated, confused, combative behavior in the setting of hypoxemia, alcohol and opioid withdrawal and receipt of corticosteroid therapy. BSU: Problem List - Patient Problems (1) Psychoses Current Visit: Yes Status: Acute Priority: High Plan - Plan Treatment Plan: The patient was transferred to the BSU because she remains psychotic despite the improvement in her medical condition and the completed detoxification from alcohol. I don't think she's delirious anymore, given her sustained improvement in orientation, and her vitals have been fine. I'm concerned about the possibility of corticosteroid-induced margarita at this time. We have titrated quetiapine to 600mg nightly but will increase this to 800mg. Patient is refusing drug/alcohol rehabilitation. Will d/c chlordiazepoxide. Needs further inpatient care. Continued Medication Management: Different Medication Medications: Current Medications Albuterol (Ventolin 2.5 Mg/3 Ml Neb.Apple*) 2.5 mg INH Q4H PRN PRN Reason: SOB/WHEEZING Baclofen (Lioresal Tab*) 10 mg PO Q8HR PRN PRN Reason: PAIN Last Admin: 10/08/18 01:36 Dose: 10 mg Device (Nicotine Mouth Piece*) 1 each INH .USE W/ CARTRIDGE PRN PRN Reason: WITHDRAWAL - NICOTINE Last Admin: 10/05/18 21:10 Dose: 1 each Diazepam (Valium Tab(*)) 2.5 mg PO BID [facility] Last Admin: 10/08/18 08:59 Dose: 2.5 mg Famotidine (Pepcid Tab*) 20 mg PO BID [facility]; Protocol Last Admin: 10/08/18 08:58 Dose: 20 mg Folic Acid (Folvite Tab*) 1 mg PO DAILY [facility] Last Admin: 10/08/18 09:02 Dose: Not Given Gabapentin (Neurontin Cap(*)) 900 mg PO TID [facility] Last Admin: 10/08/18 08:58 Dose: 900 mg Melatonin (Melatonin) 3 mg PO QPM PRN PRN Reason: SLEEP Last Admin: 10/08/18 01:36 Dose: 3 mg Nicotine (Nicotine Patch 21 Mg/24 Hr*) 1 patch TRANSDERM DAILY@0800 [facility] Last Admin: 10/08/18 08:58 Dose: 1 patch Nicotine (Nicotine Inhaler*) 10 mg INH Q2H PRN PRN Reason: CRAVING Last Admin: 10/07/18 20:27 Dose: 10 mg Oxycodone HCl (Roxycodone Tab*) 2.5 mg PO Q8H PRN PRN Reason: PAIN - MODERATE Last Admin: 10/07/18 20:17 Dose: 2.5 mg Quetiapine Fumarate (Seroquel Tab*) 800 mg PO BEDTIME [facility] Thiamine HCl (Vitamin B-1 Tab*) 100 mg PO DAILY [facility] Last Admin: 10/08/18 08:58 Dose: 100 mg - Discharge Plan Discharge Plan: Inpatient Hospitalization Lab Results - Lab Results Lab Results: 10/02/18 10/02/18 10/07/18 04:10 04:10 04:40 WBC RBC Hgb Hct MCV MCH MCHC RDW Plt Count MPV Neut % (Auto) Lymph % (Auto) [place] % (Auto) Eos % (Auto) Baso % (Auto) Absolute Neuts (auto) Absolute Lymphs (auto) Absolute Monos (auto) Absolute Eos (auto) Absolute Basos (auto) Absolute Nucleated RBC Nucleated RBC % Sodium 142 Potassium 3.5 Chloride 110 Carbon Dioxide 27 Anion Gap 5 BUN 5 L Creatinine 0.75 Est GFR ( Amer) 105.2 Est GFR (Non-Af Amer) 87.0 BUN/Creatinine Ratio 6.7 L Glucose 103 H Calcium 8.5 L Adenovirus Source Throat Adenovirus DNA Negative Human MPV Source Nasopharyngeal Human Metapneumovir RNA Not detected 10/07/18 04:40 WBC 6.0 RBC 3.42 L Hgb 10.6 L Hct 32 L MCV 94 MCH 31 MCHC 33 RDW 15 Plt Count 284 MPV 8.5 Neut % (Auto) 44.5 Lymph % (Auto) 38.1 [place] % (Auto) 12.9 Eos % (Auto) 3.5 Baso % (Auto) 1.0 Absolute Neuts (auto) 2.7 Absolute Lymphs (auto) 2.3 Absolute Monos (auto) 0.8 Absolute Eos (auto) 0.2 Absolute Basos (auto) 0.1 Absolute Nucleated RBC 0 Nucleated RBC % 0 Sodium Potassium Chloride Carbon Dioxide Anion Gap BUN Creatinine Est GFR ( Amer) Est GFR (Non-Af Amer) BUN/Creatinine Ratio Glucose Calcium Adenovirus Source Adenovirus DNA Human MPV Source Human Metapneumovir RNA
[2018-10-08] MEDS: QUEtiapine TAB* 100 MG PO SCH (21:16)
[2018-10-08] MEDS: oxyCODONE TAB* 5 MG TAB PO PRN (21:49)
[2018-10-09] MEDS: Baclofen TAB* 10 MG PO PRN ×2 (01:28→18:34)
[2018-10-09] MEDS: Melatonin 3 MG TAB PO PRN (01:28)
[2018-10-09] MEDS: Famotidine TAB* 20 MG PO SCH ×2 (08:10→20:40)
[2018-10-09] MEDS: Folic Acid TAB* 1 MG PO SCH (08:10)
[2018-10-09] MEDS: Diazepam TAB(*) 5 MG PO SCH ×2 (08:10→20:42)
[2018-10-09] MEDS: Gabapentin CAP(*) 300 MG PO SCH ×3 (08:10→20:39)
[2018-10-09] MEDS: Thiamine TAB* 100 MG TAB PO SCH (08:10)
[2018-10-09] MEDS: Nicotine PATCH 21 MG/24 HR* PATCH TRANSDERM SCH (08:11)
[2018-10-09] MEDS: Nicotine Inhaler* 10 MG AMP INH PRN ×3 (08:53→20:58)
[2018-10-09] MEDS: oxyCODONE TAB* 5 MG TAB PO PRN (18:34)
[2018-10-09] MEDS: QUEtiapine TAB* 100 MG PO SCH (20:41)
[2018-10-10] MEDS: Famotidine TAB* 20 MG PO SCH ×2 (08:04→19:54)
[2018-10-10] MEDS: Diazepam TAB(*) 5 MG PO SCH ×2 (08:04→19:54)
[2018-10-10] MEDS: Thiamine TAB* 100 MG TAB PO SCH (08:05)
[2018-10-10] MEDS: Folic Acid TAB* 1 MG PO SCH (08:05)
[2018-10-10] MEDS: Gabapentin CAP(*) 300 MG PO SCH ×3 (08:05→19:54)
[2018-10-10] MEDS: Nicotine PATCH 21 MG/24 HR* PATCH TRANSDERM SCH (08:11)
[2018-10-10] MEDS: oxyCODONE TAB* 5 MG TAB PO PRN ×2 (11:51→20:00)
[2018-10-10] MEDS: Nicotine Inhaler* 10 MG AMP INH PRN ×2 (14:26→19:18)
--- NOTE | 2018-10-10 18:20 | PN ---
Subjective - Subjective Date of Service: 10/10/18 Service Type: 24687 Hosp care 25 min moderate complexity Subjective: Abby spends a lot of time by the nurse's station asking for Oxycodone. She is hyper verbal, illogical, argumentative, irritable and need a lot of redirections. Objective - General Observations Appearance: Well Groomed Appears Stated Age: Yes Stature: WNL Posture: WNL Behavior/Activity: Accelerated, Impulsive, Agitated - Interaction Observations Attitude Towards Examiner: Demanding Stated Mood: Irritable Affect: Bright Speech Pattern/Tone: Loud Volume Thought Process: Coherent, Circumstantial Perception: WNL Thought Content: Preoccupation/Ruminations Hallucination Type: None Delusion Type: None - Cognitive Function Orientation: A&O x 4 Level of Consciousness: Alert Cognition: WNL Estimated Intelligence: Normal Insight: Mostly Blames Others for Problems Judgment Within Normal Limits: No Ability to Make Reasonable Decisions: Serverely Impaired - Medication Compliance Cooperative with Inpatient Medication Regimen: Partial - Group Participation Participates in Group Activities: No Assessment - Assessment Merits Inpatient Hospitalization: For Immediate Safety, For Stabilization, For Ongoing Evaluation, Pending Safe DC Plan Inpatient DSM-V Dx: F29 Clinical Impression: 38 y.o. single, white female with a history of polydrug dependence (alcohol and opioids mostly) admitted to the medical service for pneumonia presents with agitated, confused, combative behavior in the setting of hypoxemia, alcohol and opioid withdrawal and receipt of corticosteroid therapy. Plan - Plan Treatment Plan: The patient was transferred to the [facility] because she remains psychotic despite the improvement in her medical condition and the completed detoxification from alcohol. I don't think she's delirious anymore, given her sustained improvement in orientation, and her vitals have been fine. I'm concerned about the possibility of corticosteroid-induced margarita at this time. We have titrated quetiapine to 600mg nightly but will increase this to 800mg. Patient is refusing drug/alcohol rehabilitation. Will d/c chlordiazepoxide. Needs further inpatient care. Continued Medication Management: Continue Outpt Medication Medications: Current Medications Albuterol (Ventolin 2.5 Mg/3 Ml Neb.Apple*) 2.5 mg INH Q4H PRN PRN Reason: SOB/WHEEZING Baclofen (Lioresal Tab*) 10 mg PO Q8HR PRN PRN Reason: PAIN Last Admin: 10/09/18 18:34 Dose: 10 mg Device (Nicotine Mouth Piece*) 1 each INH .USE W/ CARTRIDGE PRN PRN Reason: WITHDRAWAL - NICOTINE Last Admin: 10/05/18 21:10 Dose: 1 each Diazepam (Valium Tab(*)) 2.5 mg PO BID [facility] Last Admin: 10/10/18 08:04 Dose: 2.5 mg Famotidine (Pepcid Tab*) 20 mg PO BID [facility]; Protocol Last Admin: 10/10/18 08:04 Dose: 20 mg Folic Acid (Folvite Tab*) 1 mg PO DAILY [facility] Last Admin: 10/10/18 08:05 Dose: 1 mg Gabapentin (Neurontin Cap(*)) 900 mg PO TID [facility] Last Admin: 10/10/18 14:25 Dose: 900 mg Melatonin (Melatonin) 3 mg PO QPM PRN PRN Reason: SLEEP Last Admin: 10/09/18 01:28 Dose: 3 mg Nicotine (Nicotine Patch 21 Mg/24 Hr*) 1 patch TRANSDERM DAILY@0800 [facility] Last Admin: 10/10/18 08:11 Dose: 1 patch Nicotine (Nicotine Inhaler*) 10 mg INH Q2H PRN PRN Reason: CRAVING Last Admin: 10/10/18 14:26 Dose: 10 mg Oxycodone HCl (Roxycodone Tab*) 2.5 mg PO Q8H PRN PRN Reason: PAIN - MODERATE Last Admin: 10/10/18 11:51 Dose: 2.5 mg Quetiapine Fumarate (Seroquel Tab*) 800 mg PO BEDTIME [facility] Last Admin: 10/09/18 20:41 Dose: 600 mg Thiamine HCl (Vitamin B-1 Tab*) 100 mg PO DAILY [facility] Last Admin: 10/10/18 08:05 Dose: 100 mg - Discharge Plan Discharge Plan: Drug/Alcohol Rehab
[2018-10-10] MEDS: QUEtiapine TAB* 100 MG PO SCH (19:54)
[2018-10-11] MEDS: Nicotine Inhaler* 10 MG AMP INH PRN ×3 (05:45→19:25)
[2018-10-11] MEDS: oxyCODONE TAB* 5 MG TAB PO PRN (05:45)
[2018-10-11] MEDS: Gabapentin CAP(*) 300 MG PO SCH ×3 (08:36→19:04)
[2018-10-11] MEDS: Folic Acid TAB* 1 MG PO SCH (08:36)
[2018-10-11] MEDS: Thiamine TAB* 100 MG TAB PO SCH (08:37)
[2018-10-11] MEDS: Nicotine PATCH 21 MG/24 HR* PATCH TRANSDERM SCH (08:37)
[2018-10-11] MEDS: Famotidine TAB* 20 MG PO SCH ×2 (08:37→19:05)
[2018-10-11] MEDS: Diazepam TAB(*) 5 MG PO SCH (08:37)
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
[2018-10-11] MEDS: Prazosin CAP* 1 MG PO SCH (19:06)
[2018-10-11] MEDS: QUEtiapine TAB* 100 MG PO SCH (19:06)
[2018-10-11] MEDS: Mouth Piece, Nicotine* 1 EACH CARTRIDGE INH PRN (19:26)
[2018-10-11] MEDS: Melatonin 3 MG TAB PO PRN (20:10)
[2018-10-12] MEDS: Folic Acid TAB* 1 MG PO SCH (07:44)
[2018-10-12] MEDS: Gabapentin CAP(*) 300 MG PO SCH ×3 (07:44→19:07)
[2018-10-12] MEDS: Famotidine TAB* 20 MG PO SCH ×2 (07:45→19:07)
[2018-10-12] MEDS: Thiamine TAB* 100 MG TAB PO SCH (07:45)
[2018-10-12] MEDS: Nicotine PATCH 21 MG/24 HR* PATCH TRANSDERM SCH (07:47)
[2018-10-12] MEDS: Nicotine Inhaler* 10 MG AMP INH PRN ×2 (08:21→16:33)
[2018-10-12] MEDS ORDERED: Diazepam TAB(*) 5 MG PO PRN (15:57)
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
[2018-10-12] MEDS: Prazosin CAP* 1 MG PO SCH (19:07)
[2018-10-12] MEDS: QUEtiapine TAB* 100 MG PO SCH (19:08)
[2018-10-13] MEDS: Nicotine PATCH 21 MG/24 HR* PATCH TRANSDERM SCH (07:37)
[2018-10-13] MEDS: Folic Acid TAB* 1 MG PO SCH (07:37)
[2018-10-13] MEDS: Gabapentin CAP(*) 300 MG PO SCH (07:37)
[2018-10-13] MEDS: Famotidine TAB* 20 MG PO SCH (07:37)
[2018-10-13] MEDS: Thiamine TAB* 100 MG TAB PO SCH (07:37)
[2018-10-13] MEDS: Nicotine Inhaler* 10 MG AMP INH PRN ×2 (07:38→09:54)
[2018-10-13 08:06] VITALS: BP 109/79
[2018-10-13] MEDS ORDERED: Diazepam TAB(*) 5 MG PO ONE (11:27)
--- NOTE | 2018-10-13 12:04 | DCNOTE ---
Subjective - Subjective Service Types: 53281 [facility] Day Mgmt complex over 30 min Discharge Date: 10/13/18 Subjective: Patient is well related and expresses future orientation. She met with [facility] personnel and discussed options. She reports desire for discharge home today. Patient denies SI/HI/ or passive wish. She reports much improvement in nightmares with prazosin and slept well all night. She agrees to referrals to [facility] and [facility]. Objective - Appearance Appearance: Well Developed/Nourished Dysmorphic Features: No Hygiene: Normal Grooming: Well Kept - Behavior Psychomotor Activities: Normal Exhibits Abnormal Movement: No - Attitude and Relatedness Attitude and Relatedness: Cooperative Eye Contact: Good - Speech Quality: Unpressured Latencies: Normal Quantity: Appropriate - Mood Patient's Decription of Mood: "Good" - Affect Observed Affect: Good Affect Consistent with: Euthymia - Thought Process Patient's Thought Process: Coherent, Goal Directed Thought Content: No Passive Wish, No Suicidal Planning, No Homicidal Ideation, No Paranoid Ideation - Sensorium Experiencing Hallucinations: No, Sensorium is Clear Type of Hallucinations: Visual: No, Auditory: No, Command: No - Level of Consciousness Level of Consciousness: Alert Orientation: Yes Intact, Yes Orientated to Time, Yes Orientated to Place, Yes Orientated to Person - Impulse Control Impulse Control: Intact - Insight and Judgement Insight and Judgement: Good - Group Participation Particating in Group Activities: Yes - Medication Management Medication Management Adherence: Yes DC Assessment - Assessment Clinical Impression: 38 y.o. single, white female with a history of polydrug dependence (alcohol and opioids mostly) admitted to the medical service for pneumonia presents with agitated, confused, combative behavior in the setting of hypoxemia, alcohol and opioid withdrawal and receipt of corticosteroid therapy. She has successfully detoxed from alcohol and oxycodone. She agrees to follow up with outpatient services. Merits Inpatient Hospitalization: No Clear for Discharge: Adequate Clinical Respons, Acceptable Safety Profile Inpatient DSM-V Dx: F29 Discharge Planning - Discharge Planning Discharge Plan: Outpatient Follow Up Outpatient Program: [facility] Recommendations for Continuing Care: Medication Management, Psychotherapy, Substance Abuse Counseling, Primary Care Followup Medications: Current Medications Diazepam (Valium Tab(*)) 5 mg PO BEDTIME PRN PRN Reason: INSOMNIA Last Admin: 10/12/18 19:07 Dose: 5 mg Famotidine (Pepcid Tab*) 20 mg PO BID [facility]; Protocol Last Admin: 10/13/18 07:37 Dose: 20 mg Gabapentin (Neurontin Cap(*)) 900 mg PO TID [facility] Last Admin: 10/13/18 07:37 Dose: 900 mg Melatonin (Melatonin) 3 mg PO QPM PRN PRN Reason: SLEEP Last Admin: 10/11/18 20:10 Dose: 3 mg Prazosin HCl (Minipress Cap*) 2 mg PO BEDTIME [facility] Last Admin: 10/12/18 19:07 Dose: 2 mg Quetiapine Fumarate (Seroquel Tab*) 800 mg PO BEDTIME [facility] Last Admin: 10/12/18 19:08 Dose: 800 mg Discharge Planning: Prescriptions provided for discharge [x] Yes [] No Follow up care details as per social work arrangements: [facility]: intake on 10/15 at 10:30am with Micaela Hickey. [facility]: You have a 45 minute intake appointment on 10/25 at 1:00pm with Janie. Please arrive at 12:30 to fill out initial paperwork. PCP, Malina Blount SENIOR PROJECT LEADER/TEAM LEAD: It is recommended that you have a follow up appointment within 30 days of discharge. Patient response to discharge plan: [x] eager for discharge [x] agreeable with discharge plan [] ambivalent about discharge [] disagrees with discharge today
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
== END 2018-10-13 12:40 | disposition home or self-care (01) | DRG 720 ==
LOC: ED 17:09 → ICU 21:29 → MED 09-26 14:43 → ICU 09-27 18:47 → MED 10-02 16:32 → BSU 10-07 10:44
PROVIDERS: ADMIT Internal Medicine; ATTEND Psychiatry & Neurology Psychiatry
PROC: 02HV33Z Insertion of Infusion Device into Superior Vena Cava, Percutaneous Approach (ICD-10-PCS; principal; 2018-09-29)
DX: A41.9 Sepsis, unspecified organism (principal); J18.1 Lobar pneumonia, unspecified organism; J96.01 Acute respiratory failure with hypoxia; G93.41 Metabolic encephalopathy; K86.0 Alcohol-induced chronic pancreatitis; B37.0 Candidal stomatitis; F10.239 Alcohol dependence with withdrawal, unspecified; F11.23 Opioid dependence with withdrawal; E72.20 Disorder of urea cycle metabolism, unspecified; F05 Delirium due to known physiological condition; Z96.0 Presence of urogenital implants; F32.9 Major depressive disorder, single episode, unspecified; F41.0 Panic disorder [episodic paroxysmal anxiety]; F43.10 Post-traumatic stress disorder, unspecified; J45.909 Unspecified asthma, uncomplicated; K21.9 Gastro-esophageal reflux disease without esophagitis; F17.210 Nicotine dependence, cigarettes, uncomplicated; R40.2362 Coma scale, best motor response, obeys commands, at arrival to emergency department; R40.2142 Coma scale, eyes open, spontaneous, at arrival to emergency department; R40.2252 Coma scale, best verbal response, oriented, at arrival to emergency department; M54.9 Dorsalgia, unspecified; F29 Unspecified psychosis not due to a substance or known physiological condition; G89.4 Chronic pain syndrome; D64.9 Anemia, unspecified; E87.6 Hypokalemia; E83.51 Hypocalcemia; R59.0 Localized enlarged lymph nodes; Y90.9 Presence of alcohol in blood, level not specified; Z88.1 Allergy status to other antibiotic agents; Z88.5 Allergy status to narcotic agent; Z88.8 Allergy status to other drugs, medicaments and biological substances; Z87.442 Personal history of urinary calculi; Z72.89 Other problems related to lifestyle; Z80.8 Family history of malignant neoplasm of other organs or systems; Z56.0 Unemployment, unspecified; T38.0X5A Adverse effect of glucocorticoids and synthetic analogues, initial encounter; Y92.239 Unspecified place in hospital as the place of occurrence of the external cause; Z91.19 Patient's noncompliance with other medical treatment and regimen
CPT/HCPCS: 36415; 36600; 71045; 71275; 76705; 80048; 80053; 80061; 80074; 80076; 81003; 81015; 82140; 82550; 82803; 83036; 83605; 83690; 83735; 84484; 84702; 85025; 85027; 85379; 85610; 85730; 86140; 86703; 86803; 87040; 87086; 87641; 87798; 87899; 93005; 94640; 99222; 99231; 99232; 99238; 99285; A9270-GY; C1751; J0610; J0780; J1170; J1630; J1644; J1885; J1940; J2250; J2270; J2405; J2543; J2920; J3411; J3480; J3486; J7512; Q9967

== ENCOUNTER 2018-12-22 17:40 | Inpatient (IN) | payer OTHER ==
--- OUTSIDE RECORDS SUMMARY | 2018-12-22 17:58 | XMS REPORT | Continuity of Care Document ---
:1980 External Reference #:[id number] Author Name Amarirocio Diana Care Team Providers Name Role Phone Madeleine Conteh MD Primary Care Physician Unavailable Payers Date Identification Numbers Payment Provider Subscriber Policy Number: [id number] [employer] Raymond Carlton PayID: [id number] [address] [address] [place] [address] Advance Directives Type Date Description Status Comment Other Directive 01/27/2017 Health Care Proxy Current and Verified Problems Active Problems Provider Date Alcohol-induced acute pancreatitis Malina Blount N.PCarmina Onset: 12/13/2016 Mild intermittent asthma Malina Blount NGladys Onset: 12/13/2016 Closed fracture of metatarsal bone Casey Yu MD Onset: 09/28/2017 Closed traumatic dislocation of Casey Yu MD Onset: 09/28/2017 tarsometatarsal joint Tobacco use Samuel Finley M.D. Onset: 01/19/2018 Alcohol-induced psychosis Chasidy Ivy M.D. Onset: 03/29/2018 Anxiety state Chasidy Ivy M.D. Onset: 03/29/2018 Family History Date Family Member(s) Observation Comments [...] Use Currently consumes Drinks when watching alcohol [employer] races once weekly. Recreational Drug Use Denies Drug Use Tobacco Use Start: Unknown Heavy tobacco smoker (more than 10 cigarettes/day) Smoking Status Reviewed: 12/07/18 Heavy tobacco smoker (more than 10 cigarettes/day) Allergies, Adverse Reactions, Alerts Active Allergies Reaction Severity Comments Date Codeine 05/05/2013 Metaxalone feels "loopy" 06/03/2017 Zithromax violently ill 06/03/2017 Azithromycin 07/29/2017 Keflex Severe Can't breath 11/05/2017 Qvar 11/05/2017 Lorazepam Nausea and Vomiting, Increased 02/18/2018 confusion Tylenol 08/27/2018 Medications Active Medications SIG Qnty Indications Ordering Provider Date Seroquel One po daily 30tabs F33.9 Malina Varn, 12/07/2018 50mg Tablets N.P. Fluticasone use 2 sprays in 16units R05 Zsofia Joel, 11/03/2018 Propionate each nostril one [employer] 50mcg/Act time a day Suspension Baclofen Take 1/2 Tablet 45tabs Malina Varn, 10/16/2018 10mg Tablets By Mouth Every 8 N.P. Hours as Needed For Muscle Spasm Albuterol Sulfate inhale 2 puffs by 54units J45.20 Malina Varn, 2018 HFA mouth four times N.P. 108(90Base) a day as needed mcg/Act Aerosol Walker Swivel use this to 1units S93.324D Malina Varn, 11/05/2017 Wheels/5 Adjustment ambulate N.P. Holes/3" With Seat 3" Misc Gabapentin take one tablet Unknown 600mg by mouth four Tablets times a day Famotidine 1 tab by mouth K21.9 Unknown 20mg twice a day Tablets Prazosin HCL 1 by mouth at Unknown 2mg bedtime Capsules Gabapentin 1 by mouth with K85.20 Unknown 300mg the 600 mg three Capsules time daily Melatonin ER 1 tab by mouth at 30tabs Malina Varn, 3mg bedtime N.P. Tablets ER History Medications Ciprofloxacin HCL take 1 tab by 10tabs R30.0 Zsofia 11/10/2018 - 250mg mouth twice a day Joel, [employer] 12/07/2018 Tablets for 5 days Acidophilus Probiotic take 1 tab po q 30tabs R30.0 Zsofia 11/10/2018 - Complex day [facility], [facility] 12/07/2018 Tablets Mucinex 1 by mouth twice a 14tabs R05 ofia 11/03/2018 - 600mg Tablets day Joel, [facility] 12/07/2018 ER 12HR Benzonatate 1 by mouth twice a 14caps R05 [facility] - 100[facility] day [facility], [facility] 12/07/2018 Capsules Nystatin 08/25/18 report not 120ml B37.0 [place] 09/21/2018 - 279038Lppg/ML taking. 4 Varn, N.P. 10/01/2018 Suspension milliliters four times a day, swish and swallow for 10 days Macrobid one capsule twice 14caps N39.0 [facility], 08/27/2018 - 100mg Capsules a day x 7 days [employer] 09/03/2018 Oxycodone HCL 1 by mouth every 8 15tabs [place] 08/06/2018 - 10mg hours as needed Varn, N.P. 10/13/2018 Tablets pain(only 15 given) Seroquel One po daily 30tabs F33.9 [place] 08/06/2018 - 50mg Tablets Varn, N.P. 10/13/2018 Gabapentin 3 by mouth tid 60caps K85.20 [place] 06/01/2018 - 300mg Varn, N.P. 10/13/2018 Capsules Ranitidine HCL take one tablet by 60tabs K21.9 [place] 06/01/2018 - 150mg mouth twice a day Varn, N.P. 10/13/2018 Tablets Oxycodone HCL one by mouth twice 6tabs K85.20 [facility], 06/01/2018 - 5mg a day [employer] 10/13/2018 Tablets Gabapentin Take 1 Tablet By 120tabs [place] 03/12/2018 - 600mg Mouth Every Varn, N.P. 10/13/2018 Tablets Morning, Take 1 Tablet By Mouth Mid Day, Take 2 Tablets By Mouth AT Bedtime Macrobid 1 by mouth twice a 14caps [place] 11/08/2017 - 100mg Capsules day for 7 days Varn, N.P. 11/15/2017 Sulfamethoxazole/Trim one by mouth twice 14tabs N39.0 [place] 11/05/2017 - ethoprim DS a day for 7 days Varn, N.P. 11/08/2017 800-160mg Tablets Meloxicam 1 by mouth bid prn 60tabs S93.324D [place] 11/05/2017 - 7.5mg Tablets pain Varn, N.P. 01/24/2018 Gabapentin take 1 three times 90tabs F33.9 [place] 09/10/2017 - 600mg a day Varn, N.P. 01/25/2018 Tablets Qvar 2 puffs twice 26.1units [place] 08/21/2017 - 80mcg/Act Aerosol daily Varn, N.P. 11/05/2017 Asmanex HFA 1 inhalation bid 13gm [place] 08/18/2017 - 200mcg/Act Varn, N.P. 08/21/2017 Aerosol Baclofen Take 1/2 Tablet By 45tabs M54.9 [place] 06/25/2017 - 10mg Tablets Mouth Every 8 Varn, N.P. 01/25/2018 Hours as Needed For Muscle Spasm Omeprazole 1 by mouth every 30caps Con[place] 06/24/2017 - 20mg day Felicita Kaba 01/25/[address] Doxycycline Hyclate one tablet twice Unknown 06/14/2017 - daily for 10 days 06/25/2017 100mg Capsules ([facility]) Pulmicort Flexhaler 2 puffs twice 1units [place] 03/11/2017 - daily Varn, N.P. 08/18/2017 180mcg/Act Aerosol Flovent HFA 2 puffs twice 12gm J45.901 [place] 02/27/2017 - 110mcg/Act daily Varn, N.P. 03/11/2017 Aerosol Medrol 6 by mouth day 1, 21units J45.901 [place] 02/27/2017 - 4mg TBPK 5 by mouth day 2, Varn, N.P. 03/05/2017 4 by mouth day 3, 3 by mouth day 4, 2 by mouth day 5, 1 by mouth day 6 Oxycodone HCL one by mouth every 20tabs M54.5 [place] 02/27/2017 - 5mg 8 hours as needed Varn, N.P. 06/02/2017 Tablets pain Metaxalone take 1 tablet 3 30tabs M54.5 [place] 02/27/2017 - 800mg times a day as Varn, N.P. 06/02/2017 Tablets needed Omeprazole 1 by mouth every 30caps R11.2 [place] 01/27/2017 - 40mg day Varn, N.P. 02/27/2017 Capsules Hydroxyzine Pamoate Take 1 Capsule By 30caps F41.1 [place] 01/27/2017 - Mouth Every 8 Varn, N.P. 10/13/2018 25mg Capsules Hours as Needed For Anxiety Ondansetron 1 tablet under 20tabs R11.2 [place] 12/24/2016 - 4mg Tablets tongue every 8 Varn, N.P. 10/13/2018 Dispers hours as needed nausea Flector apply 1 patch 60units M54.5 [place] 12/24/2016 - 1.3% Patches twice a day Varn, N.P. 06/02/2017 Gabapentin take 3 capsules by 270caps M54.5 [place] 12/24/2016 - 300mg mouth three times Varn, N.P. 01/15/2018 Capsules a day Creon One po with each 90caps [place] 12/12/2016 - 6000Unit Caps DR ashley valente Varn, N.P. 01/27/2017 Part Omeprazole 1 by mouth every 30tabs R11.2 [place] 12/10/2016 - 20mg Tablets day Varn, N.P. 01/27/2017 Oxycodone HCL one by mouth every 15tabs K85.90 [place] 12/10/2016 - 5mg 8 hours as needed Varn, N.P. 02/27/2017 Tablets pain Benzocaine/Menthol Unknown - Juan 03/12/2018 Nicotine Tartrate 10mg inhaled every Unknown - 2 hours as needed 03/12/2018 Powder for cravings Omeprazole 1 by mouth every 30caps [place] - 40mg day Varn, N.P. 10/13/[address] Thiamine HCL 1 by mouth every Unknown - 100mg day 03/12/2018 Tablets Oxycodone HCL 1 tab po q4-6 20tabs Slava - 5mg hours prn pain Felicita Westbrook 05/31/2018 Tablets Seroquel Take 1 Tablet By 30tabs R11.2 Malina - 25mg Tablets Mouth AT Bedtime Varn, N.P. 08/06/2018 Oxycodone 1 by mouth every 6 Unknown - 10mg Tablets hours as needed 08/06/2018 pain(only 15 given) Baclofen take 1/2 tablet by 45tabs Malina - 10mg Tablets mouth every 8 Varn, N.P. 10/13/2018 hours as needed for muscle spasm Sodium Bicarbonate 1 tab by mouth 4 Unknown - times a day 08/26/2017 650mg Tablets Diazepam 1 at bedtime Unknown - 5mg Tablets 11/03/2018 Quetiapine Fumarate two at bedtime F33.9 Unknown - 11/03/2018 400mg Tablets Folic Acid 1 by mouth every Unknown - 1mg Tablets day 03/12/2018 Gabapentin 1 by mouth three Unknown - 300mg times a day 03/12/2018 Capsules Chlordiazepoxide HCL Take 1 Capsule By Unknown - Mouth Three Times 04/05/2018 25mg Capsules Daily Maximum Daily Dose Of 3 Caps Sucralfate Take 1 Tablet By Unknown - 1gm Tablets Mouth Two Times 03/12/2018 Daily Nicotine Apply 1 Patch Unknown - 21mg/24HR Transdermally 10/13/2018 Patches 24HR Every Day AT 800Am Methadone HCL Take 1 Tablet By Unknown - 10mg Mouth Three Times 01/18/2018 Tablets Daily Maximum Daily Dose Of 3 Per D Aspirin Ec take 1 tab by Unknown - 325mg mouth every day x 12/19/[address] 14 days. with food. Cyclobenzaprine HCL take one tablet by 30tabs Malina - 5mg mouth every 8 Varn, N.P. 04/05/2018 Tablets hours prn. may take a second tablet if first not effetive. Oxycodone HCL 1 tab po q4-6 30tabs Casey - 5mg hours prn MD Aimee 01/26/2018 Tablets Ibu-200 2 tab as needed. Unknown - 200mg Tablets 01/25/2018 Omeprazole 1 by mouth every Unknown - 40mg day ([facility] 06/24/[address] summary) Oxycodone HCL 1 po q 4 hrs prn Unknown - 10mg pain MDD 6 tabs 03/29/2017 Tablets ([facility] summary) Medications Administered in Office Medication SIG Qnty Indications Ordering Provider Date Depomedrol 40MG Slava Westbrook M.D. 02/18/2018 Injection Immunizations CPT Code Status Date Vaccine Reaction Lot # [id number] Given 03/12/2018 Influenza Virus Vaccine, No immediate [id number] Quadrivalent, Split, reaction..jh Preservative Free 92018 Given 03/27/2014 Tdap - Tetanus/Diptheria/Acellular Pertussis 54440 Given 06/26/2011 Influenza Virus Vaccine, Quadrivalent, Split, Preservative Free 02385 Given 07/31/2009 Influenza Virus Vaccine, Quadrivalent, Split, Preservative Free 74969 Given 07/31/2009 Influenza Virus Vaccine, Quadrivalent, Split, Preservative Free 58454 Given 07/31/2009 Influenza Virus Vaccine, Quadrivalent, Split, Preservative Free 92631 Given 07/31/2009 Influenza Virus Vaccine, Quadrivalent, Split, Preservative Free 27752 Given 07/31/2009 Influenza Virus Vaccine, Quadrivalent, Split, Preservative Free 87200 Given 07/31/2009 Influenza Virus Vaccine, Quadrivalent, Split, Preservative Free 17936 Given 06/25/2007 Influenza Virus Vaccine, Quadrivalent, Split, Preservative Free 50557 Given 06/25/2007 Influenza Virus Vaccine, Quadrivalent, Split, Preservative Free 62815 Given 06/25/2007 Influenza Virus Vaccine, Quadrivalent, Split, Preservative Free 78316 Given 06/25/2007 Influenza Virus 3Yrs & Over 82699 Given 07/08/2004 Tetanus And Diptheria (Td) For Adult Use Preservative Free 51027 Given 07/08/2004 Measles Mumps And Rubella MMR Vital Signs Date Vital Result Comment 12/07/2018 1:54pm Height 60 inches 5'0" Weight 124.38 lb Heart Rate 111 /min BP Systolic 141 mmHg recheck 136/105 BP Diastolic 97 mmHg recheck 136/105 Body Temperature 96.1 F O2 % BldC Oximetry 99 % BMI (Body Mass Index) 24.3 kg/m2 11/10/2018 3:09pm Height 60 inches 5'0" Weight 123.00 lb Heart Rate 131 /min BP Systolic 145 mmHg BP Diastolic 93 mmHg Body Temperature 97.9 F O2 % BldC Oximetry 98 % BMI (Body Mass Index) 24.0 kg/m2 11/03/2018 8:10am Height 60 inches 5'0" Weight 122.50 lb Heart Rate 122 /min BP Systolic 128 mmHg BP Diastolic 86 mmHg Body Temperature 98.1 F O2 % BldC Oximetry 98 % BMI (Body Mass Index) 23.9 kg/m2 09/21/2018 2:20pm Height 60 inches 5'0" Weight [...] Test Result H/L Range Note Ua Routine 11/10/2018 [employer] [facility] Ua Specific [place] 1.005 Ua PH 7 Ua Color yellow Ua Appera cloudy Ua WBC ++ Ua Protein + 30 Ua Glucose normal Ua Ketones negative Ua Bilirubin negative Ua Urobilinogen normal Ua Nitrite positive Ua Occult Blood 50 Urine Culture And 11/10/2018 [facility] Urine SEE RESULT 1 , [address] [place] [place] [address] [phone] CBC Auto Diff 09/24/2018 [facility] White Blood 18.8 High 3.5 - [address] Count 10^3/uL 10.8 [place] [address] [phone] Red Blood Count 4.21 10^6/uL N 3.70-4.87 Hemoglobin 13.3 g/dL N 12.0-16.0 Hematocrit 40 % N 33-41 Mean Corpuscular Volume 95 fL N 80-97 Mean Corpuscular Hemoglobin 32 pg High 27-31 Mean Corpuscular HGB Conc 33 g/dL N 31-36 Red Cell Distribution Width 15 % N 10.5-15 Platelet Count 201 10^3/uL N 150-450 Mean Platelet Volume 8.3 fL N 7.4-10.4 Abs Neutrophils 17.1 10^3/uL High 1.5-7.7 Abs Lymphocytes 0.8 10^3/uL Low 1.0-4.8 Abs Monocytes 0.8 10^3/uL N 0-0.8 Abs Eosinophils 0.1 10^3/uL N 0-0.6 Abs Basophils 0 10^3/uL N 0-0.2 Abs Nucleated RBC 0 10^3/uL Granulocyte % 91.2 % Lymphocyte % 4.1 % Monocyte % 4.2 % Eosinophil % 0.3 % Basophil % 0.2 % Nucleated Red Blood Cells % 0 Laboratory test 09/24/2018 [facility] Lactic Acid 1.6 mmol/L N 0.5-2.0 [address] [place] [address] [phone] Comp Metabolic 09/24/2018 [facility] Sodium 137 mmol/L N 135- [address] [place], [place] [id number] [phone] Potassium 3.8 mmol/L N 3.5-5.0 Chloride 108 mmol/L N 101-111 Co2 Carbon Dioxide 21 mmol/L Low 22-32 Anion Gap 8 mmol/L N 2-11 Glucose 116 mg/dL High 70-100 Blood Urea Nitrogen 9 mg/dL N 6-24 Creatinine 0.74 mg/dL N 0.51-0.95 BUN/Creatinine Ratio 12.2 N 8-20 Calcium 8.4 mg/dL Low 8.6-10.3 Total Protein 6.2 g/dL Low 6.4-8.9 Albumin 3.3 g/dL N 3.2-5.2 Globulin 2.9 g/dL N 2-4 Albumin/Globulin Ratio 1.1 N 1-3 Total Bilirubin 0.60 mg/dL N 0.2-1.0 Alkaline Phosphatase 121 U/L High 34-104 Alt 10 U/L N 7-52 Ast 41 U/L High 13-39 Egfr Non- 88.3 >60 Egfr 106.9 >60 4 Laboratory test 09/24/2018 [facility] Troponin-I (TnI) 0.02 ng/ mL <0.04 [address] [place] [address] [phone] HCG < 0.60 mIU/mL 6 Inr/Protime 09/24/2018 [facility] Inr 0.99 N 0.77-1.[address] [place], [place] [id number] [phone] Laboratory test 09/24/2018 [facility] Partial 24.0 Low 26.0- 36.[address] [place] [address] PTT [phone] D Dimer Quantitative 469 ng/mL High Less Than 230 7 Lipase < 10 U/L Low 11.0-82.0 Laboratory test 09/21/2018 [facility] Cytology SEE RESULT [address] [place] [address] [phone] Urine Culture And 08/27/2018 [facility] Urine Culture SEE RESULT [address] [place] [address] [phone] Ua Routine 08/27/2018 [employer] [facility] Ua Specific 1.030 [place] Ua PH 5 Ua Color red Ua Appera cloudy Ua WBC positive Ua Protein ++ Ua Glucose normal Ua Ketones negative Ua Bilirubin +++ Ua Urobilinogen negative Ua Nitrite positive Ua Occult Blood 250 CBC Auto 08/21/2018 [facility] White Blood 14.4 10^3/uL High 3.5-10.[address] [place] [address] [phone] Red Blood Count 4.58 10^6/uL N 4.00-5.40 [...] % Nucleated Red Blood Cells % 0 Urine Culture And 08/21/2018 [facility] Urine Culture SEE RESULT [address] [place] [address] [phone] Laboratory test 08/21/2018 [facility] Lactic Acid 1.6 mmol/L N 0.5-2 [address]0 [place] [address] [phone] Urinalysis Profile 08/21/2018 [facility] Urine Color Anais [address] [place] [address] [phone] Urine Appearance Cloudy Urine Specific [place] 1.027 N 1.010-1.030 Urine pH 6.0 N [...] Cell Present Abnormal Absent Comp Metabolic Panel 08/21/2018 [facility] Sodium 133 mmol/L Low 135-145 [address] [place] [address] [phone] Potassium 3.8 mmol/L N 3.5-5.0 Chloride 105 [...] Egfr Non- 69.9 >60 Egfr 84.6 >60 12 Laboratory test 08/21/2018 [facility] Lipase 294 U/L High 11.0 -82.0 finding [address] [place] [address] [phone] C Reactive Protein 2.58 mg/L N <8.01 HCG < 0.60 mIU/mL 13 Alcohol < 10 mg/dL N <10 Comp Metabolic Panel 08/06/2018 [facility] Sodium 144 mmol/L N 135-145 [address] [place] [address] [phone] Potassium 4.1 mmol/L N 3.5-5.0 Chloride 107 [...] Egfr Non- 87.4 >60 Egfr 105.8 >60 14 Laboratory test 08/06/2018 [facility] Magnesium 1.9 mg/dL N 1.9-2.7 finding [address] [place] [address] [phone] Urine Culture And 07/27/2018 [facility] Urine Culture SEE RESULT [address] [place] [address] [phone] Laboratory test 07/27/2018 [facility] Amylase 195 U/L High 29- 103 finding [address] [place] [address] [phone] C Reactive Protein 16.08 mg/L High <8.01 HCG 0.80 mIU/mL 16 Lipase 1256 U/L High 11.0-82.0 Triglyceride 171 mg/dL 17 Laboratory test finding 07/27/2018 [facility] Alcohol < 10 mg/ dL N <10 [address] [place] [address] [phone] LDH 189 U/L N 140-271 Urinalysis Profile 07/27/2018 [facility] Urine Color Yellow [address] [place] [address] [phone] Urine Appearance Cloudy Urine Specific [place] 1.021 N 1.010-1.030 Urine pH 6.0 N [...] Cell Present Abnormal Absent Laboratory test 07/27/2018 [facility] Lactic Acid 1.0 mmol/L N 0.5-2.0 [address] [place] [address] [phone] Comp Metabolic 07/27/2018 [facility] Sodium 131 mmol/L Low 135 -[address] [place] [address] [phone] Potassium 4.1 mmol/L N 3.5-5.0 Chloride 101 [...] Egfr Non- 77.8 >60 Egfr 94.1 >60 19 Co2 Carbon Dioxide 12 mmol/L Low 22-32 20 Anion Gap 18 mmol/L High 2-11 CBC Auto 07/27/2018 [facility] White Blood 17.8 10^3/uL High 3.5-10.[address] [place] [address] [phone] Red Blood Count 4.90 10^6/uL N 4.00-5.40 [...] Blood Cells % 0 Laboratory test 05/28/2018 [facility] Potassium 3.7 mmol/L N 3.5-5.[address] [place] [address] [phone] Magnesium 1.7 mg/dL Low 1.9-2.7 Ast Redraw 211 U/L High 13-39 Urine Culture And 05/28/2018 [facility] Urine Culture SEE RESULT [address] [place] [address] [phone] Urinalysis Profile 05/28/2018 [facility] Urine Color Yellow [address] [place] [address] [phone] Urine Appearance Clear Urine Specific [place] 1.024 N 1.010-1.030 Urine pH 6.0 N [...] Cell Present Abnormal Absent Lipid Profile 05/28/2018 [facility] Triglycerides 41 mg/dL 22 (Trig/Chol/HDL) [address] [place] [address] [phone] Cholesterol 79 mg/dL 23 HDL Cholesterol 46.5 mg/dL 24 LDL Cholesterol 24 mg/dL 25 CBC Auto 05/28/2018 [facility] White Blood 15.6 10^3/uL High 3.5-10.[address] [place] [address] [phone] Red Blood Count 4.49 10^6/uL N 4.00-5.40 [...] Blood Cells % 0 Laboratory test 05/28/2018 [facility] Lactic Acid 0.6 mmol/L N 0.5-2.0 26 finding [address] [place] [address] [phone] Laboratory test 05/28/2018 [facility] Lipase 393 U/L High 11.0 -82.0 finding [address] [place] [address] [phone] C Reactive Protein 142.58 mg/L High <8.01 HCG < 0.60 mIU/mL 27 Magnesium TNP mg/dL 1.9-2.7 28 Comp Metabolic Panel 05/28/2018 [facility] Sodium 133 mmol/L Low 135-145 [address] [place] [address] [phone] Chloride 102 mmol/L N 101-111 Co2 Carbon [...] Egfr Non- 105.0 >60 Egfr 127.0 >60 29 Potassium TNP mmol/L 3.5-5.0 30 Anion Gap 9 mmol/L N 2-11 Ast TNP U/L 13-39 31 Urinalysis Profile 05/26/2018 [facility] Urine Color Yellow [address] [place] [address] [phone] Urine Appearance Cloudy Urine Specific [place] 1.013 N 1.010-1.030 Urine pH 7.0 N [...] Present Abnormal Absent Urine Culture And 05/26/2018 [facility] Urine Culture SEE RESULT [address] [place] [address] [phone] Laboratory test 04/12/2018 [facility] Surgical SEE RESULT [address] [place] [address] [phone] CBC Auto Diff 03/28/2018 [facility] White Blood 11.6 High 3.5 - [address] Count 10^3/uL 10.8 [place] [address] [phone] Red Blood Count 4.75 10^6/uL N 4.00-5.40 [...] Blood Cells % 0.1 Laboratory test 03/28/2018 [facility] Lactic Acid 1.0 mmol/L N 0.5-2.0 34 finding [address] [place] [address] [phone] Comp Metabolic 03/28/2018 [facility] Sodium 135 mmol/L N 135- 145 Panel [address] [place] [address] [phone] Chloride 100 mmol/L Low 101-111 Co2 Carbon [...] Egfr Non- 81.2 >60 Egfr 98.2 >60 35 Potassium TNP mmol/L 3.5-5.0 36 Anion Gap 12 mmol/L High 2-11 Ast TNP U/L 13-39 37 Laboratory test 03/28/2018 [facility] HCG < 0.60 mIU/ mL 38 finding [address] [place] [address] [phone] Troponin-I (TnI) 0.14 ng/mL High <0.04 39 Lipase 1276 U/L High 11.0-82.0 Inr/Protime 03/28/2018 [facility] Inr 0.92 N 0.77-1.02 [place] [address] [phone] Laboratory test 03/28/2018 [facility] Partial 27.5 seconds N 26.0-36.3 [place] [address] PTT [phone] Urinalysis 03/28/2018 [facility] [place] [address] [phone] Urine Appearance Clear Urine Specific [place] 1.039 High 1.010-1.030 Urine pH 7.0 N [...] Cell Present Abnormal Absent Laboratory test 03/28/2018 [facility] Alcohol < 10 mg/dL N < [address] [place] [address] [phone] Urine Culture And 03/28/2018 [facility] Urine Culture SEE RESULT [address] [place] [address] [phone] Laboratory test 03/28/2018 [facility] Potassium 3.8 mmol/L N 3.5-5.[address] [place] [address] [phone] Ast Redraw 39 U/L N 13-39 Urinalysis Profile 01/14/2018 [facility] Urine Color Yellow [address] [place] [address] [phone] Urine Appearance Cloudy Urine Specific [place] 1.018 N 1.010-1.030 Urine pH 6.0 N [...] Epithelial Present Abnormal Absent CBC Auto 01/14/2018 [facility] White Blood 11.0 10^3/uL High 3.5-10.[address] [place] [address] [phone] Red Blood Count 4.72 10^6/uL N 4.00-5.40 [...] Cells % 0 Comp Metabolic Panel 01/14/2018 [facility] Sodium 134 mmol/L Low 135-[address] [place] [address] [phone] Potassium 3.8 mmol/L N 3.5-5.0 Chloride 100 [...] Egfr Non- 75.7 >60 Egfr 91.6 >60 41 Laboratory test 01/14/2018 [facility] HCG < 0.60 mIU/ mL [address] [place], [place] [address] [phone] Lipase 3111 U/L High 11.0-82.0 Alcohol < 10 mg/dL N <10 Urine Culture And 01/14/2018 [facility] Urine Culture SEE RESULT [address] [place] [address] [phone] Ua Routine 11/05/2017 [facility] [facility] Ua Specific 1010 [place] Ua PH 6 Ua Color brown Ua Appera cloudy Ua WBC ++ Ua Protein + Ua Glucose ++ Ua Ketones neg. Ua Bilirubin neg. Ua Urobilinogen neg. Ua Nitrite neg. Ua Occult Blood about 250 Urine Culture And 11/05/2017 [facility] Urine Culture SEE RESULT [address] [place] [address] [phone] Urinalysis Profile 09/04/2017 [facility] Urine Color Yellow [address] [place] [address] [phone] Urine Appearance Cloudy Urine Specific [place] 1.021 N 1.010-1.030 Urine pH 6.0 N [...] Present Abnormal Absent Urine Culture And 09/04/2017 [facility] Urine Culture SEE RESULT [address] [place] [address] [phone] CBC Auto Diff 09/04/2017 [facility] White Blood 9.4 10^3/uL N 3.5-[address] Count 0.8 [place] [address] [phone] Red Blood Count 4.35 10^6/uL N 4.0-5.4 [...] Cells % 0 Comp Metabolic Panel 09/04/2017 [facility] Sodium 136 mmol/L N 133-[address] [place] [address] [phone] Potassium 3.8 mmol/L N 3.5-5.0 Chloride 105 [...] Egfr Non- 90.2 >60 Egfr 116.0 >60 46 Laboratory test 09/04/2017 [facility] Magnesium 2.1 mg/dL N 1.9-2.[address] [place] [address] [phone] Amylase 41 U/L N 29-103 Lipase 34 U/L N 11.0-82.0 CRP High Sensitivity 2.35 mg/L 47 Alcohol 54 mg/dL High <10 HCG < 0.60 mIU/mL 48 Troponin-I (TnI) 0.00 ng/mL <0.04 Laboratory test 06/24/2017 [facility] Lactic Acid 1.2 mmol/L N 0.5-2.0 [address] [place] [address] [phone] CBC Auto Diff 06/24/2017 [facility] White Blood 8.9 10^3/uL N 3.5-10.[address] [place] [address] [phone] Red Blood Count 4.72 10^6/uL N 4.0-5.4 [...] Cells % 0.2 Comp Metabolic Panel 06/24/2017 [facility] Sodium 133 mmol/L N 133-145 [address] [place] [address] [phone] Potassium 3.6 mmol/L N 3.5-5.0 Chloride 100 [...] Egfr Non- 68.6 >60 Egfr 88.2 >60 50 Laboratory test 06/24/2017 [facility] Magnesium 2.1 mg/dL N 1.9-2.7 finding [address] [place] [address] [phone] Lipase 541 U/L High 11.0-82.0 Creatine Kinase(CK) 25 U/L N 10-223 C Reactive Protein 1.94 mg/L N < 5.00 51 HCG < 0.60 mIU/mL 52 Lipid Profile 06/24/2017 [facility] Triglycerides 98 mg/dL 53 (Trig/Chol/HDL) [address] [place] [address] [phone] Cholesterol 166 mg/dL 54 HDL Cholesterol 49.4 mg/dL 55 LDL Cholesterol 97 mg/dL 56 Laboratory test 06/24/2017 [facility] Alcohol < 10 mg/dL N < [address] [place] [address] [phone] Urinalysis Profile 06/24/2017 [facility] Urine Color Straw [address] [place] [address] [phone] Urine Appearance Cloudy Urine Specific [place] 1.002 Low 1.010-1.030 Urine pH 6.0 N 5-9 Urine Urobilinogen Negative Negative Urine Ketones Negative Negative Urine Protein Negative Negative Urine Leukocytes Negative Negative Urine Blood Negative Negative Urine Nitrite Negative Negative Urine Bilirubin Negative Negative Urine Glucose Negative Negative Arterial Blood Gas 06/12/2017 [facility] Fio2 [address] [place] [address] [phone] PH Arterial 7.35 N 7.35-7.45 Pco2 Arterial 33 mmHg Low 35-45 Po2 Arterial 78 mmHg Low 80-100 O2 Saturation Arterial 97.2 % N 95-98 Base Excess Arterial -6.4 Low -2.0-2.0 57 Hco3 Arterial 19.8 mmol/L N 19-31 CBC Auto 06/12/2017 [facility] White Blood 14.7 10^3/uL High 3.5-10.[address] [place] [address] [phone] Red Blood Count 4.61 10^6/uL N 4.0-5.4 [...] Cells % 0 Comp Metabolic Panel 06/12/2017 [facility] Sodium 137 mmol/L N 133-[address] [place] [address] [phone] Potassium 4.2 mmol/L N 3.5-5.0 Chloride 108 [...] Egfr Non- 74.1 >60 Egfr 95.3 >60 58 Laboratory test 06/12/2017 [facility] D Dimer 262 ng/mL High Less [address] Quantitative Than 230 [place] [address] [phone] Amylase 50 U/L N 29-103 Lipase < 10 U/L Low 11.0-82.0 C Reactive Protein 222.45 mg/L High < 5.00 60 Troponin-I (TnI) 0.03 ng/mL <0.04 Strep AB Anti 06/12/2017 [facility] Anti Streptolysin 121 IU/mL 0 - 530 Dnase B [address] [place] [address] [phone] Anti-DNase B <74 U/mL 0 - 300 61 Urine Culture And 06/08/2017 [facility] Urine SEE RESULT [address] [place] [place] [address] [phone] Urinalysis Profile 06/08/2017 [facility] Urine Color Red Abnormal [address] [place] [address] [phone] Urine Appearance Cloudy Urine pH TNP 5-9 63 Urine Urobilinogen TNP Negative 64 Urine Ketones TNP Negative 65 Urine Protein TNP Negative 66 Urine Leukocytes TNP Negative 67 Urine Blood TNP Negative 68 Urine Nitrite TNP Negative 69 Urine Bilirubin TNP Negative 70 Urine Glucose TNP Negative 71 Urine Specific [place] 1.005 Low 1.010-1.030 Urine White Blood Cell 3+(>20/hpf) Abnormal Absent Urine Red Blood Cell 3+(>10/hpf) Abnormal Absent Urine Bacteria 1+ Abnormal Absent Urine Squamous Epithelial Cell Present Abnormal Absent Comp Metabolic Panel 06/08/2017 [facility] Sodium 134 mmol/L N 133-145 [address] [place] [address] [phone] Potassium 3.5 mmol/L N 3.5-5.0 Chloride 103 [...] Egfr Non- 84.0 >60 Egfr 108.1 >60 72 Laboratory test finding 06/08/2017 [facility] Lipase 18 U/L N 11.0-82.0 [address] [place] [address] [phone] CRP High Sensitivity 3.72 mg/L 73 HCG < 0.60 mIU/mL 74 CBC Auto Diff 06/08/2017 [facility] White Blood 7.7 10^3/uL N 3.5-10.[address] [place] [address] [phone] Red Blood Count 4.69 10^6/uL N 4.0-5.4 [...] Cells % 0.1 Laboratory test finding 04/14/2017 [facility] Amylase 40 U/L N 29-103 [address] [place] [address] [phone] Lipase 40 U/L N 11.0-82.0 Comp Metabolic Panel 04/14/2017 [facility] Sodium 136 mmol/L N 133-145 [address] [place] [address] [phone] Potassium 3.9 mmol/L N 3.5-5.0 Chloride 102 [...] 76.1 N >60 Egfr 97.9 N >60 75 Drug Abuse 20 04/13/2017 [facility] Urine Amphetamine Negative ng/mL N [address] [place] [address] [phone] Urine Barbiturates Negative ng/mL N 77 Urine Benzodiazepines Negative ng/mL N 78 Urine Cocaine Negative ng/mL N 79 Urine Phencyclidine Negative ng/mL N Cutoff: 25 Urine Tetrahydrocannabinol Negative ng/mL N Cutoff: 50 80 Creatinine, Urine 122.2 mg/dL N Specific [place] 1.004 N pH 7.4 N Oxidants Negative N 81 Adulterants Comment Normal N Codeine, Ur Not Detected ng/mL N Cutoff: 25 82 Otxzpkz-0-mxls-glucuronide, Ur Not Detected ng/mL N 83 Morphine, Ur Not Detected ng/mL N Cutoff: 25 84 Tjuwhrrw-1-jwlq-glucuronide, U Not Detected ng/mL N 85 6-monoacetylmorphine, Ur Not Detected ng/mL N Cutoff: 25 86 Hydrocodone, Ur Not Detected ng/mL N Cutoff: 25 87 Norhydrocodone, Ur Not Detected ng/mL N Cutoff: 25 88 Dihydrocodeine, Ur Not Detected ng/mL N Cutoff: 25 89 Hydromorphone, Ur Not Detected ng/mL N Cutoff: 25 90 Zpgaliokxwidu9imngrkzptykwddu Not Detected ng/mL N 91 Oxycodone, Ur Present ng/mL N Cutoff: 25 92 Noroxycodone, Ur Present ng/mL N Cutoff: 25 93 Oxymorphone, Ur Not Detected ng/mL N Cutoff: 25 94 Yarjyapngnm-8-vevq-glucuronide Present ng/mL N 95 Noroxymorphone, Ur Present ng/mL N Cutoff: 25 96 Fentanyl, Ur Not Detected ng/mL N Cutoff: 2 97 Norfentanyl, Ur Not Detected ng/mL N Cutoff: 2 98 Meperidine, Ur Not Detected ng/mL N Cutoff: 25 99 Normeperidine, Ur Not Detected ng/mL N Cutoff: 25 100 Naloxone, Ur Not Detected ng/mL N Cutoff: 25 101 Arimteod-3-hbms-glucuronide, U Not Detected ng/mL N 102 Methadone, Ur Not Detected ng/mL N Cutoff: 25 103 Eddp, Ur Not Detected ng/mL N Cutoff: 25 104 Propoxyphene, Ur Not Detected ng/mL N Cutoff: 25 105 Norpropoxyphene, Ur Not Detected ng/mL N Cutoff: 25 106 Tramadol, Ur Not Detected ng/mL N Cutoff: 25 107 O-desmethyltramadol, Ur Not Detected ng/mL N Cutoff: 25 108 Tapentadol, Ur Not Detected ng/mL N Cutoff: 25 109 N-desmethyltapentadol, Ur Not Detected ng/mL N Cutoff: 50 110 Yzkszurqih-tbzd-rmnqpikjyyb, U Not Detected ng/mL N 111 Buprenorphine, Ur Not Detected ng/mL N Cutoff: 5 112 Norbuprenorphine, Ur Not Detected ng/mL N Cutoff: 5 113 Norbuprenorphine glucuronide Not Detected ng/mL N Cutoff: 20 114 Opioid Interpretation See Comment N 115 Laboratory test 04/10/2017 [facility] TSH (Thyroid 0.66 mcIU/mL N 0.34-5.[address] Stim [place]) [place] [address] [phone] Vitamin B12 197 pg/mL N 180-914 116 Glucose 101 mg/dL High 70-100 CBC Auto 12/15/2016 [facility] White Blood 13.8 10^3/uL High 3.5-10.[address] [place] [address] [phone] Red Blood Count 4.69 10^6/uL N 4.0-5.4 [...] % 0 N Comp Metabolic Panel 12/15/2016 [facility] Sodium 137 mmol/L N 133-145 [address] [place] [address] [phone] Potassium 3.6 mmol/L N 3.5-5.0 Chloride 104 [...] 98.5 N >60 Egfr 126.6 N >60 117 Laboratory test finding 12/15/2016 [facility] Lipase 32 U/L N 11.0-82.[address] [place] [address] [phone] Amylase 37 U/L N 29-103 1 [id number] 2 SEE RESULT BELOW Name: RAYMOND CARLTON : [address]: Delphine Maldonado NP Acct: [id number] Unit: [id number] AGE: 38 Location: [facility] Re11/10/18 SEX: F Status: REG REF SPEC: [id number] EH: 11/10/18-[address]: Delphine Maldonado NP REQ: [id number] RECD: 11/10/18 STATUS: COMP _ SOURCE: URINE SPDESC: ORDERED: Urine Culture COMMENTS: [id number] Urine Source: Random Procedure Result Reported Site Urine Culture Final 11/12/18- 0757 ML Organism 1 KLEBSIELLA OXYTOCA Garrett Count >100,000 (Many) CFU/ML Organism 2 NORMAL MURTAZA Garrett Count 1-10,000 (Few) CFU/ML 1. KLEBSIELLA OXYTOCA M.I.C. RX --------- ------ Ampicillin >=32 R Cefazolin 16 I Cefepime <=1 S Ceftriaxone <=1 S Ciprofloxacin <=0.25 S Gentamicin <=1 S Levofloxacin <=0.12 S Meropenem <=0.25 S Nitrofurantoin 32 S Tetracycline <=1 S Pipercillin/Tazobactam <=4 S Trimethoprim/Sulfamethoxazole <=20 S Amoxicillin/Clavulanic Acid <=2 S Aztreonam <=1 S Contact the Microbiology Department for any additional antibiotic reporting. * ML - Main Lab . END OF REPORT DEPARTMENT OF PATHOLOGY, [address] [place] [address] Francisco Marques M.D. Director [facility] # [id number] [address] [facility] Severe Sepsis and Septic Shock Management [...] 5 Kidney failure <15 (or dialysis) 5 Troponin-I testing on Plasma Separator Tubes (PST) has a known false positive rate of 0.20-0.40%. All positive troponins reflex immediate secondary confirmatory testing. 6 <5.0 Negative 5.0 - 25.0 Indeterminate (Repeat testing recommended after 72 hours) >25.0 Positive Perimenopausal women can display HCG levels of up to 20 mIU/mL 7 Please note: The following may produce a false positive D Dimer test: - Rheumatoid factor greater than 60 IU/ml - Plasma hemoglobin greater than 0.05 gm/dl - Bilirubin greater than 50 mg/dl - Lipids greater than 1000 mg/dl - FDP greater than 20 ug/ml 8 SEE RESULT BELOW Name: RAYMOND CARLTON : [address]: Malina Blount NP Acct: [id number] Unit: [id number] AGE: 38 Location: [facility] Re09/21/18 SEX: F Status: REG REF SPEC: [id number] EH: 09/21/18-[address]: Malina Blount NP REQ: [id number] RECD: 10/13/18 STATUS: SOUT _ ORDERED: TP IMAGE ANALYS, HPV/Thin Prep, HPV 16/18 GENE COMMENTS: NO TRACKING Negative for Intraepithelial lesion or Malignancy Shift in murtaza suggestive of bacterial vaginosis Date Time Test Result Flag (u) Normal Range 09/21/18 1431 @ HPV RNA RFLX GE Negative Negative @ @ The high-risk HPV types detected by the assay include: 16, @ 18, 31, 33, 35, 39, 45, 51, 52, 56, 58, 59, 66, and 68. A. Ectocervical/Endocervical Specimen Adequacy: Satisfactory of evaluation Transformation zone component identified Patient Information: HPV: High risk HPV RNA testing regardless of pap results. HPV 16/18 Genotype Reflex Actual Specimen Date: 09/21/18 Spec Date if unknown: unknown ?: N Post Menopausal?: N Hysterectomy?: N Previous Abnormal Pap Smears?:N Signed by and Reported on: CHRISTOPHER Steele(ASCP) [id number] This Pap test was evaluated with the assistance of the ThinPrep Test Imaging System. Due to cytologic findings at the content director microscope, comprehensive manual rescreening by a Assembler Engine may be required. The Pap Smear is a screening test designed to aid in the detection of premalignant and malignant conditions of the uterine cervix. It is not a diagnostic procedure and should not be used as the sole means of detecting cervical cancer. Both false- positive and false- negative reports do occur. Depending on your risk status, a Pap smear should be obtained and evaluated every 1-3 years. END OF REPORT DEPARTMENT OF PATHOLOGY, [address] [place] [address] Francisco Marques M.D. Director [facility] # [id number] 9 SEE RESULT BELOW Name: SHARAALBINARAYMOND A : [address]: Hernandez Casper NP Acct: [id number] Unit: [id number] AGE: 38 Location: [facility] Re08/27/18 SEX: F Status: REG REF SPEC: [id number] EH: 08/27/[address]: Hernandez Casper NP REQ: [id number] RECD: 08/27/184 STATUS: COMP _ SOURCE: URINE SPDESC: ORDERED: Urine Culture COMMENTS: [id number] Urine Source: Random Procedure Result Reported Site Urine Culture Final 08/28/18- 1224 ML No growth of clinically significant organisms * ML - Main Lab . END OF REPORT DEPARTMENT OF PATHOLOGY, [address] [place] [address] Francisco Marques M.D. Director [facility] # [id number] 10 SEE RESULT BELOW Name: RAYMOND CARLTON : [address]: Arley Mason MD Acct: [id number] Unit: [id number] AGE: 38 Location: ED Re08/21/18 SEX: F Status: DEP ER SPEC: [id number] EH: 08/21/[address] [facility] [address]: Arley Mason MD REQ: [id number] RECD: 08/21/18 STATUS: COMP IVONNEHR DR: Malina Blount SHANK THREADER _ SOURCE: URINE SPDESC: ORDERED: Urine Culture Procedure Result Reported Site Urine Culture Final 08/23/18- 1025 ML Mixed murtaza; possible contamination. Suggest resubmission. * ML - Main Lab . END OF REPORT DEPARTMENT OF PATHOLOGY, [address] [place] [id number] Francisco Marques M.D. Director [facility] # [id number] [address] [facility] Severe Sepsis and Septic Shock Management Bundle Measure requires all lactic acids initially measuring >2.0 mmol/L be repeated. 12 Because ethnic data is not always readily [...] 15-29 5 Kidney failure <15 (or dialysis) 13 <5.0 Negative 5.0 - 25.0 Indeterminate (Repeat testing recommended after 72 hours) >25.0 Positive Perimenopausal women can display HCG levels of up to 20 mIU/mL 14 Because ethnic data is not always [...] 5 Kidney failure <15 (or dialysis) 15 SEE RESULT BELOW Name: RAYMOND CARLTON : [address]: Clemente Finley MD Acct: [id number] Unit: [id number] AGE: 37 Location: [place] [address] Re07/27/18 SEX: F Status: ADM IN SPEC: [id number] EH: 07/27/[address]: Arley Mason MD REQ: [id number] RECD: 07/27/18 STATUS: LOIDA MCKNIGHT DR: Malina Blount SHANK THREADER _ SOURCE: URINE SPDESC: ORDERED: Urine Culture Procedure Result Reported Site Urine Culture Final 01/31/19- 1001 ML No growth of clinically significant organisms * ML - Main Lab . END OF REPORT DEPARTMENT OF PATHOLOGY, [address] [place] [address] Francisco Marques M.D. Director [facility] # [id number] 16 <5.0 Negative 5.0 - 25.0 Indeterminate (Repeat testing recommended after 72 hours) >25.0 Positive Perimenopausal women can display HCG levels of up to 20 mIU/mL 17 Desirable: <150 Borderline High: 150-199 High: 200-499 Very High: >[address] [facility] Severe Sepsis and Septic Shock Management Bundle Measure requires all lactic acids initially measuring >2.0 mmol/L be repeated. 19 Because ethnic data is not always [...] 5 Kidney failure <15 (or dialysis) 20 Critical Result CO2:12 Called to [id number] at: 20:45:25 by:[id number] Read back by:[id number] 21 SEE RESULT BELOW Name: RAYMOND CARLTON : [address]: Heydi So DO Acct: [id number] Unit: [id number] AGE: 37 Location: [facility] 438- Re05/28/18 Dis: 05/29/18 SEX: F Status: DIS Jonathan SPEC: [id number] EH: 05/29/[address]: Solomon Rey MD REQ: [id number] RECD: 05/29/18 STATUS: LOIDA MCKNIGHT DR: Malina Blount SHANK THREADER _ SOURCE: URINE [facility]: ORDERED: Urine Culture Procedure Result Reported Site Urine Culture Final 05/30/18- 1053 ML No growth of clinically significant organisms * ML - Main Lab . END OF REPORT DEPARTMENT OF PATHOLOGY, [address] [place] [address] Francisco Marques M.D. Director [facility] # [id number] 22 Desirable: <150 Borderline High: 150-199 High: 200-499 Very High: >500 23 Desirable: <200 Borderline High: 200-239 High: >239 24 Low: <40 Desirable: 40-60 High: >60 25 Desirable: <100 Near Optimal: 100-129 Borderline High: 130-159 High: 160-189 Very High: >189 26 Specimen hemolyzed. Result may not be valid. [facility] Severe Sepsis and Septic Shock Management Bundle Measure requires all lactic acids initially measuring >2.0 mmol/L be repeated. 27 <5.0 Negative 5.0 - 25.0 Indeterminate (Repeat testing recommended after 72 hours) >25.0 Positive Perimenopausal women can display HCG levels of up to 20 mIU/mL 28 Unable to report test result due to hemolysis. 29 Because ethnic data is not always readily [...] 15-29 5 Kidney failure <15 (or dialysis) 30 Specimen Hemolyzed. Result may not be valid. Unable to report test result due to hemolysis. Verbal to EPHRAIM by [id number] at 1341 on 1341.Results read back accurately 31 Unable to report test result due to hemolysis. 32 SEE RESULT BELOW Name: SHARARAYMOND : [address]: Abdelrahman Collazo MD Acct: [id number] Unit: [id number] AGE: 37 Location: ED Re05/26/18 SEX: F Status: DEP ER SPEC: [id number] EH: 05/26/18-UNK ELIJAH DR: Alicia CRUZ REQ: [id number] RECD: 05/26/18-1504 STATUS: LOIDA MCKNIGHT DR: [facility] Malina Blount SHANK THREADER _ SOURCE: URINE SPDESC: ORDERED: Urine Culture Procedure Result Reported Site Urine Culture Final 05/28/18- 0852 ML No growth of clinically significant organisms * ML - Main Lab . END OF REPORT DEPARTMENT OF PATHOLOGY, [address] [place] [address] Francisco Marques M.D. Director [facility] # [id number] 33 SEE RESULT BELOW Name: RAYMOND CARLTON : [address]: Slava Westbrook MD Acct: [id number] Unit: [id number] AGE: 37 Location: [place] Re04/12/18 SEX: F Status: YUNI MARTINEZC SPEC: [id number] EH: 04/12/[address] [facility] [address]: Slava Westbrook MD REQ: [id number] RECD: 04/12/18 STATUS: SOUT _ ORDERED: LEVEL 1 FINAL DIAGNOSIS Foot, right, hardware removal: Foreign body (orthopedic hardware) (gross diagnosis) PRE-OPERATIVE DIAGNOSIS Hardware right foot GROSS DESCRIPTION The specimen is received fresh labeled, Hardware Right Foot, and consists of a 2.6 by up to 1.1 x 0.1 cm blue metallic plate with multiple ovoid holes. The following inscription is identified: [id number]. Received separately in the same container are five donnelly metallic threaded two partially threaded spline headed screws ranging from 2.0 x 0.2 cm to 3.2 x 0.2 cm. Per established hospital medical staff protocol, no tissue is submitted. Gross only. Signed by and Reported on: Lavern Hewitt MD 04/13/18 1142 END OF REPORT DEPARTMENT OF PATHOLOGY, [address] [place] [address] Francisco Marques M.D. Director [facility] # [id number] [address] [facility] Severe Sepsis and Septic Shock Management Bundle Measure requires all lactic acids initially measuring >2.0 mmol/L be repeated. 35 Because ethnic data is not always [...] 5 Kidney failure <15 (or dialysis) 36 Specimen Hemolyzed. Result may not be valid. Unable to report test result due to hemolysis. 37 Unable to report test result due to hemolysis. 38 <5.0 Negative 5.0 - 25.0 Indeterminate (Repeat testing recommended after 72 hours) >25.0 Positive Perimenopausal women can display HCG levels of up to 20 mIU/mL 39 Result TnIDx:0.14 Called to [id number] at: 22:53:12 by:[id number] Read back by: [id number] 40 SEE RESULT BELOW Name: RAYMOND CARLTON : [address]: Chasidy Ivy MD Acct: [id number] Unit: [id number] AGE: 37 Location: [address] Re03/29/18 SEX: F Status: ADM IN SPEC: [id number] EH: 03/29/[address] [facility] [address]: Abdelrahman Collazo MD REQ: [id number] RECD: 03/29/18 STATUS: LOIDA MCKNIGHT DR: Malina Blount SHANK THREADER _ SOURCE: URINE SPDESC: ORDERED: Urine Culture Procedure Result Reported Site Urine Culture Final 03/30/18811 ML No growth of clinically significant organisms * ML - Main Lab . END OF REPORT DEPARTMENT OF PATHOLOGY, [address] [place] [address] Francisco Marques M.D. Director [facility] # [id number] 41 Because ethnic data is not always [...] 5 Kidney failure <15 (or dialysis) 42 <5.0 Negative 5.0 - 25.0 Indeterminate (Repeat testing recommended after 72 hours) >25.0 Positive Perimenopausal women can display HCG levels of up to 20 mIU/mL 43 SEE RESULT BELOW Name: RAYMOND CARLTON : [address]: Chasidy Ivy MD Acct: [id number] Unit: [id number] AGE: 37 Location: [place] [address] Re01/15/18 SEX: F Status: ADM IN SPEC: [id number] EH: 01/14/18-[address] [facility] [address]: Larry Ricks MD REQ: [id number] RECD: 01/14/18332 STATUS: LOIDA MCKNIGHT DR: Malina Blount SHANK THREADER _ SOURCE: URINE SPDESC: ORDERED: Urine Culture Procedure Result Reported Site Urine Culture Final 01/16/18- 1141 ML No growth of clinically significant organisms * ML - Main Lab . END OF REPORT DEPARTMENT OF PATHOLOGY, [address] [place] [address] Francisco Marques M.D. Director [facility] # [id number] 44 SEE RESULT BELOW Name: RAYMOND CARLTON : [address]: Malina Blount NP Acct: [id number] Unit: [id number] AGE: 37 Location: [facility] Re11/05/17 SEX: F Status: REG REF SPEC: [id number] EH: 11/05/17-[address]: Malina Blount NP REQ: [id number] RECD: 11/05/17 STATUS: COMP _ SOURCE: URINE SPDESC: ORDERED: Urine Culture COMMENTS: [id number] Urine Source: Clean Catch Procedure Result Reported Site Urine Culture Final 11/07/17- 0843 ML Organism 1 ESCHERICHIA COLI Garrett Count >100,000 (Many) CFU/ML 1. ESCHERICHIA COLI [...] . END OF REPORT DEPARTMENT OF PATHOLOGY, [address] [place] [address] Francisco Marques M.D. Director [facility] # [id number] 45 SEE RESULT BELOW Name: RAYMOND CARLTON : [address]: Jose Lorenzo MD Acct: [id number] Unit: [id number] AGE: 37 Location: ED Re09/04/17 SEX: F Status: DEP ER SPEC: [id number] EH: 09/04/17-[address]: Lavern CRUZ REQ: [id number] RECD: 09/04/17 STATUS: LOIDA MCKNIGHT DR: Leila Blount SHANK THREADER _ SOURCE: URINE [facility]: ORDERED: Urine Culture Procedure Result Reported Site Urine Culture Final 09/06/17- 1010 ML Mixed murtaza; possible contamination. Suggest resubmission. * ML - Main Lab . END OF REPORT DEPARTMENT OF PATHOLOGY, [address] [place] [address] Francisco Marques M.D. Director [facility] # [id number] 46 Because ethnic data is not always readily [...] 15-29 5 Kidney failure <15 (or dialysis) 47 Low risk: <1.00 Average risk: 1.00-3.00 High risk: >3.00 48 <5.0 Negative 5.0 - 25.0 Indeterminate (Repeat testing recommended after 72 hours) >25.0 Positive Perimenopausal women can display HCG levels of up to 20 mIU/mL 49 [facility] Severe Sepsis and Septic Shock Management Bundle Measure requires all lactic acids initially measuring >2.0 mmol/L be repeated. 50 Because ethnic data is not always readily [...] 15-29 5 Kidney failure <15 (or dialysis) 51 Acute inflammation: >10.00 52 <5.0 Negative 5.0 - 25.0 Indeterminate (Repeat testing recommended after 72 hours) >25.0 Positive Perimenopausal women can display HCG levels of up to 20 mIU/mL 53 Desirable: <150 Borderline High: 150-199 High: 200-499 Very High: >500 54 Desirable: <200 Borderline High: 200-239 High: >239 55 Low: <40 Desirable: 40-60 High: >60 56 Desirable: <100 Near Optimal: 100-129 Borderline High: 130-159 High: 160-189 Very High: >189 57 Reference ranges based on room air. 58 Because ethnic data is not always readily [...] 15-29 5 Kidney failure <15 (or dialysis) 59 Please note: The following may produce a false positive D Dimer test: - Rheumatoid factor greater than 60 IU/ml - Plasma hemoglobin greater than 0.05 gm/dl - Bilirubin greater than 50 mg/dl - Lipids greater than 1000 mg/dl - FDP greater than 20 ug/ml 60 Acute inflammation: >10.00 61 Test Performed by: [address] [id number] 62 SEE RESULT BELOW Name: RAYMOND CARLTON : [address]: Jose Lorenzo MD Acct: [id number] Unit: [id number] AGE: 36 Location: ED Re06/08/17 SEX: F Status: DEP ER SPEC: [id number] EH: 06/08/[address]: Lavern CRUZ REQ: [id number] RECD: 06/08/17 STATUS: LOIDA MCKNIGHT DR: [facility] Malina Blount SHANK THREADER _ SOURCE: URINE SPDESC: ORDERED: Urine Culture Procedure Result Reported Site Urine Culture Final 06/10/17- 0815 ML No growth of clinically significant organisms * ML - MAIN LAB ([facility]) . END OF REPORT * ML=Testing performed at Main Lab DEPARTMENT OF PATHOLOGY, [address] [place] [address] Francisco Marques M.D. Director [facility] # [id number] 63 Unable to evaluate urinalysis dipstick results due to interfering color. Notified [id number] 1835 06/08/17. 64 Unable to evaluate urinalysis dipstick results due to interfering color. Notified [id number] 1835 06/08/17. 65 Unable to evaluate urinalysis dipstick results due to interfering color. Notified [id number] 1835 06/08/17. 66 Unable to evaluate urinalysis dipstick results due to interfering color. Notified [id number] 1835 06/08/17. 67 Unable to evaluate urinalysis dipstick results due to interfering color. Notified [id number] 1835 06/08/17. 68 Unable to evaluate urinalysis dipstick results due to interfering color. Notified [id number] 1835 06/08/17. 69 Unable to evaluate urinalysis dipstick results due to interfering color. Notified [id number] 1835 06/08/17. 70 Unable to evaluate urinalysis dipstick results due to interfering color. Notified [id number] 1835 06/08/17. 71 Unable to evaluate urinalysis dipstick results due to interfering color. Notified [id number] 1835 06/08/17. 72 Because ethnic data is not always readily [...] 15-29 5 Kidney failure <15 (or dialysis) 73 Low risk: <1.00 Average risk: 1.00-3.00 High risk: >3.00 74 <5.0 Negative 5.0 - 25.0 Indeterminate (Repeat testing recommended after 72 hours) >25.0 Positive Perimenopausal women can display HCG levels of up to 20 mIU/mL 75 Because ethnic data is not always readily [...] 15-29 5 Kidney failure <15 (or dialysis) 76 REFERENCE VALUE Cutoff: 500 77 REFERENCE VALUE Cutoff: 200 78 REFERENCE VALUE Cutoff: 100 79 REFERENCE VALUE Cutoff: 150 80 ADDITIONAL INFORMATION This report is intended for use in clinical monitoring or management of patients. It is not intended for use in employment-related testing. 81 REFERENCE VALUE Cutoff: 200 mg/L 82 Tylenol 3 83 Metabolite of codeine REFERENCE VALUE Cutoff: 100 84 Coco Schmid, Contin; Also a minor metabolite (10%) of codeine and can be seen in low concentrations (<2,000 ng/mL) with poppy seed ingestion. 85 Metabolite of morphine REFERENCE VALUE Cutoff: 100 86 Metabolite of heroin 87 Lortab, [place], Vicodin; Also a very minor metabolite of codeine and impurity (<1%) of oxycodone. 88 Metabolite of hydrocodone 89 Metabolite of hydrocodone 90 Dilaudid, Exalgo; Also a metabolite of hydrocodone and a minor (<5%) metabolite of morphine. 91 Metabolite of hydromorphone REFERENCE VALUE Cutoff: 100 92 Endocet, Percocet, Oxycontin 93 Metabolite of oxycodone 94 Numorphan, Opana; Also a metabolite of oxycodone. 95 Metabolite of oxymorphone REFERENCE VALUE Cutoff: 100 96 Metabolite of oxymorphone 97 Actiq, Duragesic, Fentora 98 Metabolite of fentanyl 99 Demerol 100 Metabolite of meperidine 101 Narcan 102 Metabolite of naloxone REFERENCE VALUE Cutoff: 100 103 Dolophine 104 Metabolite of methadone 105 Darvon, Darvocet 106 Metabolite of propoxyphene 107 Tradol, Ultram, Ultracet 108 Metabolite of tramadol 109 Nucynta 110 Metabolite of tapentadol 111 Metabolite of tapentadol REFERENCE VALUE Cutoff: 100 112 Buprenex, Suboxone 113 Metabolite of buprenorphine 114 Metabolite of buprenorphine 115 Test detected the presence of oxycodone and several metabolites (noroxycodone, noroxymorphone, and nbwwjfynekp-8-iqsu-glucuronide). Suspect use of oxycodone or possibly oxycodone and oxymorphone within the past three days. ADDITIONAL INFORMATION This test was developed and its performance characteristics determined by [facility] in a manner consistent with CLIA requirements. This test has not been cleared or approved by the U.S. Food and Drug Administration. Test Performed by: [facility] - [facility] [address] [place] [address] 116 Normal Range 180 to 914 Indeterminate Range 145 to 180 Deficient Range <145 117 Because ethnic data is not always readily [...] (or dialysis) Procedures Date Code Description Status 09/29/2018 27513 EKG, Interpretation Only Completed 04/12/2018 97768 Implant Nerve End Into Bone Or Muscle Completed 04/12/2018 13673 Excision Neuroma, Cutaneous Nerve Completed 04/12/201808617 Removal Implant Deep Wire,Screw Nail,Abdiel Or Plate Completed 04/12/2018 47426 Removal Implant Deep Wire,Screw Nail,Abdiel Or Plate Completed 03/29/2018 27554 ECHO Transthorasic Realtime 2D W Doppler & Color Flow Hosp Completed 02/18/2018 76625 Injection,Anesthetic Agent, Other Peripheral Nerve Branch Completed 01/20/2018 76654 Endoscopy Upper GI Biopsy Completed 10/14/2017 77884 Short Leg Cast Completed 10/06/2017 23976 Short Leg Cast Completed 10/01/2017 33116 FX Tarsal Care Completed 10/01/2017 26139 FX Tarsal Care Completed 10/01/2017 48430 FX Metatarsal Care Completed 10/01/2017 25305 FX Metatarsal Care Completed 10/01/2017 93202 Open TX Metatarsal FX,Incl Intl Fixation When Performed Completed 10/01/2017 62612 Dislocation Tarsometatarsal JT W/Wo Fixation Open TX Completed 10/01/2017 44985 Dislocation Tarsometatarsal JT W/Wo Fixation Open TX Completed 10/01/2017 26512 Dislocation Tarsometatarsal JT W/Wo Fixation Open TX Completed 10/01/2017 10197 Dislocation Tarsometatarsal JT W/Wo Fixation Open TX Completed 06/12/2017 71215 ECHO Transthorasic Realtime 2D W Doppler & Color Flow Hosp Completed 06/12/2017 60031 EKG, Interpretation Only Completed Encounters Type Date Location Provider Dx Diagnosis Office Visit 11/10/2018 3:20p [facility] Internal LUIS M Pack R30.0 Dysuria Medicine - Ccmob R35.0 Frequency of micturition Office Visit 11/03/2018 8:00a [facility] Internal Medicine - LUIS M Pack R05 Cough Ccmob J45.20 Mild intermittent asthma, uncomplicated J18.9 Pneumonia, unspecified organism F10.188 Alcohol abuse with other alcohol-induced disorder F33.9 Major depressive disorder, recurrent, unspecified F17.210 Nicotine dependence, cigarettes, uncomplicated Office Visit 10/07/2018 [facility] Virgen G93.40 Encephalopathy, 9:48a Assoc,pc Keely, SHANK THREADER unspecified Hospitalists J96.01 Acute respiratory failure with hypoxia J18.9 Pneumonia, unspecified organism A41.9 Sepsis, unspecified organism F10.188 Alcohol abuse with other alcohol-induced disorder M54.9 Dorsalgia, unspecified Z79.891 rodent exterminator (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 analgesic Office Visit 10/06/2018 [facility] Virgen G93.40 Encephalopathy, 9:48a Assoc,pc Keely, SHANK THREADER unspecified Hospitalists K86.1 Other chronic pancreatitis J18.9 Pneumonia, unspecified organism F10.188 Alcohol abuse with other alcohol-induced disorder M54.9 Dorsalgia, unspecified Z79.891 group home (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 analgesic Office Visit 10/04/2018 9:47a [facility] Gabino J18.9 Pneumonia, Assoc,pc Sandra, [place] unspecified Hospitalists organism J96.01 Acute respiratory failure with hypoxia R41.0 Disorientation, unspecified K86.1 Other chronic pancreatitis F10.188 Alcohol abuse with other alcohol-induced disorder Office Visit 10/04/2018 [facility] Janice Barraza J18.9 Pneumonia, 10:45a For Infectious [place], SHANK THREADER unspecified Diseases organism J96.01 Acute respiratory failure with hypoxia Office Visit 10/03/2018 9:46a [facility] Gabino J18.9 Pneumonia, Assoc,pc Sandra, [place] unspecified Hospitalists organism K86.1 Other chronic pancreatitis R41.0 Disorientation, unspecified F10.10 Alcohol abuse, uncomplicated Office Visit 10/02/2018 9:46a Intensivists Barry Shah18.Juanis Espinosa MD unspecified organism J96.01 Acute respiratory failure with hypoxia R00.0 Tachycardia, unspecified Office Visit 10/01/2018 9:46a Intensivists Lea Reddy96.01 Acute respiratory MD Dom failure with hypoxia F10.231 Alcohol dependence with withdrawal delirium J18.9 Pneumonia, unspecified organism Z79.891 rodent exterminator (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 analgesic Office Visit 10/01/2018 10:03a [facility] Chantal Guo J18.9 Pneumonia, Infectious Felicita Hunt unspecified Diseases organism J96.01 Acute respiratory failure with hypoxia Office Visit 09/30/2018 9:45a Intensivists Lea J96.01 Acute respiratory MD Dom failure with hypoxia J18.9 Pneumonia, unspecified organism F10.19 Alcohol abuse with unspecified alcohol-induced disorder Office Visit 09/30/2018 [facility] A41.9 Sepsis, 10:02a For Infectious [place], SHANK THREADER unspecified Diseases organism J18.9 Pneumonia, unspecified organism J96.01 Acute respiratory failure with hypoxia R41.0 Disorientation, unspecified Office Visit 09/29/2018 9:45a Intensivists Lea Reddy96.01 Acute respiratory MD Dom failure with hypoxia J18.9 Pneumonia, unspecified organism F10.19 Alcohol abuse with unspecified alcohol-induced disorder Z79.891 group home (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 analgesic Office Visit 09/28/2018 [facility] A41.9 Sepsis, 9:59a For Infectious [place], SHANK THREADER unspecified Diseases organism J18.9 Pneumonia, unspecified organism J96.01 Acute respiratory failure with hypoxia R41.0 Disorientation, unspecified Office Visit 09/28/2018 [facility] Chasidy Ivy, J18.9 Pneumonia, 9:45a Assoc,julia Mims unspecified Hospitalists organism J96.01 Acute respiratory failure with hypoxia F10.10 Alcohol abuse, uncomplicated M54.9 Dorsalgia, unspecified Office Visit 09/27/2018 [facility] Chasidy Ivy, J96.01 Acute respiratory 9:44a Assjulia arteaga M.D. failure with Hospitalists hypoxia J18.9 Pneumonia, unspecified organism F10.10 Alcohol abuse, uncomplicated M54.9 Dorsalgia, unspecified Z79.891 group home (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 analgesic Office Visit 09/26/2018 9:44a [facility] Samuel J18.9 Pneumonia, Assoc,julia Finley M.D. unspecified Hospitalists organism A41.9 Sepsis, unspecified organism F10.10 Alcohol abuse, uncomplicated Office Visit 09/25/2018 9:44a [facility] Samuel J18.9 Pneumonia, Assoc,pc Felicita Finley unspecified Hospitalists organism F10.10 Alcohol abuse, uncomplicated M54.9 Dorsalgia, unspecified Office Visit 09/24/2018 9:43a [facility] Barbara A41.9 Sepsis, Assoc,pc Luis Manuel, M.D. unspecified Hospitalists organism J18.9 Pneumonia, unspecified organism J96.01 Acute respiratory failure with hypoxia B37.0 Candidal stomatitis F10.20 Alcohol dependence, uncomplicated Office Visit 09/21/2018 2:20p [facility] Internal Malina Blount, Z00.00 Encntr for Medicine - Ccmob N.P. general adult medical exam w/o abnormal findings Z11.51 Encounter for screening for human papillomavirus (HPV) F33.9 Major depressive disorder, recurrent, unspecified F10.188 Alcohol abuse with other alcohol-induced disorder J45.20 Mild intermittent asthma, uncomplicated K21.9 Gastro-esophageal reflux disease without esophagitis F17.210 Nicotine dependence, cigarettes, uncomplicated G89.4 Chronic pain syndrome B37.0 Candidal stomatitis Office Visit 08/27/2018 8:40a [facility] Internal Hernandez Casper K85.20 Alcohol induced Medicine - Ccmob SHANK THREADER acute pancreatitis without necrosis or infct N39.0 Urinary tract infection, site not specified Office 08/06/2018 [facility]Not[facility] Internal Malina K85.20 Alcohol induced [facility] 3:[facility].P. acute pancreatitis without necrosis or infct R19.7 Diarrhea, unspecified F33.9 Major depressive disorder, recurrent, unspecified Office Visit 07/29/2018 [facility] Samuel K85.20 Alcohol induced 9:35a Assoc,julia Finley M.D. acute pancreatitis Hospitalists without necrosis or infct E87.2 Acidosis Office Visit 07/28/2018 9:35a [facility] Navya Jackson K85.20 Alcohol induced Assoc,julia NORRIS acute pancreatitis Hospitalists without necrosis or infct F10.188 Alcohol abuse with other alcohol-induced disorder E87.2 Acidosis M54.9 Dorsalgia, unspecified Office Visit 07/27/2018 9:35a [facility] Edie R10.9 Unspecified Assoc,julia Bowles DO abdominal pain Hospitalists E87.2 Acidosis K85.20 Alcohol induced acute pancreatitis without necrosis or infct Office Visit 06/01/2018 4:00p [facility] Internal Malina Blount, K85.20 Alcohol induced Medicine - N.P. acute pancreatitis Ccmob without necrosis or infct K21.9 Gastro-esophageal reflux disease without esophagitis Office Visit 05/29/2018 9:55a [facility] Gabino M54.9 Dorsalgia, Assoc,ANTHONY Moe unspecified Hospitalists J45.20 Mild intermittent asthma, uncomplicated K85.20 Alcohol induced acute pancreatitis without necrosis or infct Office Visit 05/28/2018 [facility] Gabino K85.20 Alcohol induced 9:54a Assoc,ANTHONY Moe acute pancreatitis Hospitalists without necrosis or infct K70.10 Alcoholic hepatitis without ascites J45.909 Unspecified asthma, uncomplicated F41.9 Anxiety disorder, unspecified Office Visit 04/01/2018 [facility] Glenda K85.20 Alcohol induced 11:13a Assoc,julia Melton D.O. acute pancreatitis Hospitalists without necrosis or infct F41.9 Anxiety disorder, unspecified F10.19 Alcohol abuse with unspecified alcohol-induced disorder M54.9 Dorsalgia, unspecified [facility] K85.20 Alcohol induced 11:13a julia Denson M.D. acute Hospitalists pancreatitis without necrosis or infct E16.2 Hypoglycemia, unspecified F10.19 Alcohol abuse with unspecified alcohol-induced disorder F41.9 Anxiety disorder, unspecified M54.9 Dorsalgia, unspecified Office Visit 03/30/2018 [facility], K85.20 Alcohol induced 11:12a julia Denson M.D. acute Hospitalists pancreatitis without necrosis or infct F10.19 Alcohol abuse with unspecified alcohol-induced disorder E16.2 Hypoglycemia, unspecified F41.9 Anxiety disorder, unspecified Office Visit 03/29/2018 [facility], K85.20 Alcohol induced 11:11a Assjulia arteaga M.D. acute Hospitalists pancreatitis without necrosis or infct E16.2 Hypoglycemia, unspecified F10.19 Alcohol abuse with unspecified alcohol-induced disorder F41.9 Anxiety disorder, unspecified Office Visit 03/23/2018 10:00a Orthopedic Slava Westbrook, M79.671 Pain in right Services Of C.M.A. M.D. foot G57.91 Unspecified mononeuropathy of right lower limb Office 03/12/2018 [facility] Internal Malina R03.0 Elevated Visit 2:00p Medicine-Arrowmak Blount N.P. blood-pressure reading, w/o diagnosis of htn M79.671 Pain [...] Pain in right foot [facility] K85.20 Alcohol induced 10:35a Assoc,julia Michael MD acute Hospitalists pancreatitis without necrosis or infct K29.70 Gastritis, unspecified, without bleeding F10.10 Alcohol abuse, uncomplicated F17.210 Nicotine dependence, cigarettes, uncomplicated Office Visit 01/20/2018 10[facility] R10.13 Epigastric pain Assoc,julia Finley M.D. Hospitalists K85.20 Alcohol induced acute pancreatitis without necrosis or infct F10.10 Alcohol abuse, uncomplicated Z72.0 Tobacco use Office Visit 01/20/2018 [facility] Gastroenterology Sangeeta R10.13 Epigastric pain 7:00a MD Maksim K85.20 Alcohol induced acute pancreatitis without necrosis or infct K21.9 Gastro-esophageal reflux disease without esophagitis Office Visit 01/19[facility]2018 [facility].20 Alcohol induced 10:34a Assoc,julia Finley M.D. acute pancreatitis Hospitalists without necrosis or infct F10.10 Alcohol abuse, uncomplicated R10.13 Epigastric pain Z72.0 Tobacco use Office Visit 01/18/2018 [facility] Samuel K85.20 Alcohol induced 10:34a Assoc,julia Finley M.D. acute pancreatitis Hospitalists without necrosis or infct R10.13 Epigastric pain F10.10 Alcohol abuse, uncomplicated Office Visit 01/17/2018 [facility] R10.13 Epigastric pain 10:34a Assoc,julia [place], SHANK THREADER Hospitalists K85.20 Alcohol induced acute pancreatitis without necrosis or infct F10.10 Alcohol abuse, uncomplicated Office Visit 01/16/2018 [facility] R10.13 Epigastric pain 10:33a Assoc,julia [place], SHANK THREADER Hospitalists K85.20 Alcohol induced acute pancreatitis without necrosis or infct F10.10 Alcohol abuse, uncomplicated Office Visit 01/15/2018 10:33a [facility] Glenda R10.13 Epigastric pain Assoc,julia Melton DRobert. Hospitalists K85.20 Alcohol induced acute pancreatitis without necrosis or infct Office Visit 11/05/2017 11:20a [facility] Internal Malina Blount, Z00.00 Encntr for Medicine - [facility] N.P. general adult medical exam w/o abnormal findings F33.9 Major depressive disorder, recurrent, unspecified J45.20 Mild intermittent asthma, uncomplicated F17.210 Nicotine dependence, cigarettes, uncomplicated N39.0 Urinary tract infection, site not specified K21.9 Gastro-esophageal reflux disease without esophagitis S93.324D Dislocation of tarsometatarsal joint of right foot, subs Office Visit 09/28/2017 Orthopedic Casey Yu, S92.334A Nondisp fx of 3:45p Services Of MD faith GreerMScooter bone, right foot, init S92.344A Nondisp fx of fourth metatarsal bone, right foot, init S93.324A Dislocation of tarsometatarsal joint of right foot, init Office Visit 09/22/2017 Orthopedic Casey Yu, S92.334A Nondisp fx of 2:00p Services Of MD third metatarsal C.M.A. bone, right foot, init S92.344A Nondisp fx of fourth metatarsal bone, right foot, init Office Visit 09/10/2017 9:00a [facility] Internal Malina Blount, F33.9 Major depressive Medicine - N.P. disorder, Ccmob recurrent, unspecified G89.4 Chronic pain syndrome Office Visit 07/29/2017 [facility] Internal Anastasia M79.644 Pain in right 9:50a YogeshNoelle Cadet M.D. finger(s) Z79.899 Other rodent exterminator (current) drug therapy Office Visit 06/25/2017 9:00a [facility] Internal Hernandez Casper, J18.9 [facility]READ[facility] unspecified organism M54.9 Dorsalgia, unspecified R79.9 Abnormal finding of blood chemistry, unspecified R10.9 Unspecified abdominal pain Office Visit 06/24/2017 10:14a [facility] Norma Eller, K86.1 Other chronic Assoc,pc N.P. pancreatitis Hospitalists Office Visit 06/13/2017 7:16a [facility] Norma Eller, J18.9 Pneumonia, Assoc,pc N.P. unspecified Hospitalists organism J45.20 Mild intermittent asthma, uncomplicated Office Visit 06/12/2017 10:34a Pulmonology And Lazara R06.02 Shortness of Sleep Services Of MD Moses [facility] N20.1 Calculus of ureter R00.0 Tachycardia, unspecified R10.12 Left upper quadrant pain Office 06/03/2017 [facility] Internal Mitesh Peraza R07.89 Other chest pain Visit 11:20a Dennis Kimball M.D. Office 04/13/2017 [facility] Internal Medicine Viraj Radford K86.0 Alcohol-induced Visit 4:00p Ccmob Varn, N.P. chronic pancreatitis M54.5 Low back pain Office Visit 03/26/2017 10:40a [facility] Internal Malina Blount M54.5 Low back pain [facility] F41.1 Generalized anxiety disorder K85.20 Alcohol induced acute pancreatitis without necrosis or infct M79.2 Neuralgia and neuritis, unspecified [facility] Alcohol induced 9:33a Assoc,pc Larry, SHANK THREADER acute Hospitalists pancreatitis without necrosis or infct M54.5 Low back pain J45.20 Mild intermittent asthma, uncomplicated G89.29 Other chronic pain Office Visit 03/07/2017 [facility] K85.20 Alcohol induced 9:33a Asschandler,julia Larry NP acute Hospitalists pancreatitis without necrosis or infct M54.5 Low back pain J45.20 Mild intermittent asthma, uncomplicated G89.29 Other chronic pain Office Visit 03/06/2017 [facility] Raul Sheth K85.20 Alcohol induced 9:32a Assoc,julia ELLINGTON M.D. acute Hospitalists pancreatitis without necrosis or infct M54.5 Low back pain J45.20 Mild intermittent asthma, uncomplicated G89.29 Other chronic pain Office Visit 02/27/2017 4:20p [facility] Internal Malina Varn, M54.5 Low back pain Medicine - Ccmob N.P. J45.901 Unspecified asthma with (acute) exacerbation Office Visit 01/27/2017 2:20p [facility] Internal Malina Varn, R11.2 Nausea with Medicine - N.P. vomiting, Ccmob unspecified M54.5 Low back pain F41.1 Generalized anxiety disorder G47.00 Insomnia, unspecified B35.3 Tinea pedis Office Visit 12/24/2016 3:00p [facility] Internal Malina Arlenen, K85.90 Acute pancreatitis Medicine - N.P. without necrosis Ccmob or infection, unsp R11.2 Nausea with vomiting, unspecified M54.5 Low back pain Office Visit 12/10/2016 4:00p [facility] Internal Malina Mine, J18.9 Pneumonia , Medicine - N.P. unspecified Ccmob organism K85.90 Acute pancreatitis without necrosis or infection, unsp R11.2 Nausea with vomiting, unspecified Office Visit 11/22/2016 [facility] John Torres.9 Pneumonia, 8:29a julia Denson M.D. unspecified Hospitalists organism K85.90 Acute pancreatitis without necrosis or infection, unsp Office Visit 11/21/2016 [facility] John Torres.9 Pneumonia, 8:29a julia Denson M.D. unspecified Hospitalists organism M54.5 Low back pain K85.90 Acute pancreatitis without necrosis or infection, unsp J45.20 Mild intermittent asthma, uncomplicated Office Visit 11/20/2016 8:28a [facility] Barbara J18.9 Pneumonia, Assoc,julia Issa M.D. unspecified Hospitalists organism K85.90 Acute pancreatitis without necrosis or infection, unsp Office Visit 11/19/2016 8:27a [facility] Barbara J18.9 Pneumonia, Assoc,julia Issa M.D. unspecified Hospitalists organism M54.5 Low back pain K85.90 Acute pancreatitis without necrosis or infection, unsp Office Visit [facility] J18.9 Pneumonia, 8:26a Assocjulia II, M.D. unspecified Hospitalists organism M54.5 Low back pain K85.90 Acute pancreatitis without necrosis or infection, unsp J45.20 Mild intermittent asthma, uncomplicated Office Visit 11/15/2016 [facility] K85.20 Alcohol induced 10:39a Assoc,julia Lee M.D. acute Hospitalists pancreatitis without necrosis or infct N30.00 Acute cystitis without hematuria M54.5 Low back pain F10.231 Alcohol dependence with withdrawal delirium Office Visit 11/14/2016 [facility] Miller Carmina K85.20 Alcohol induced 2:34p Assoc,Axel Henriquez.O. acute pancreatitis Hospitalists without necrosis or infct Office [facility] Alcohol induced 2:33p Assoc,Axel Henriquez.O. acute pancreatitis Hospitalists without necrosis or infct N30.00 Acute cystitis without hematuria F10.231 Alcohol dependence with withdrawal delirium Office Visit 11/12/2016 [facility] Pascual K85.20 Alcohol induced 2:32p Assoc,Axel Henriquez.O. acute pancreatitis Hospitalists without necrosis or infct F10.231 Alcohol dependence with withdrawal delirium Office Visit 11/12/2016 [facility] K85.20 Alcohol induced 10:38a Assocjulia M.D. acute pancreatitis Hospitalists without necrosis or infct M54.5 Low back pain F10.231 Alcohol dependence with withdrawal delirium Office Visit 11/11/2016 [facility] K85.20 Alcohol induced 10:38a Assoc,julia Finley M.D. acute pancreatitis Hospitalists without necrosis or infct M54.5 Low back pain F10.10 Alcohol abuse, uncomplicated [facility] 10:35a Assoc,julia Hawthorne N.P. acute Hospitalists pancreatitis without necrosis or infct M54.5 Low back pain F10.10 Alcohol abuse, uncomplicated Office Visit 05/05/2013 10:00a [facility]opedic Corinna Lares, 354.0 [facility] 727.42 Ganglion Tendon Sheath Plan of Treatment 12/07/2018 - Malina Blount N.P.K21.9 Gastro-esophageal reflux disease without esophagitisComments:To help with your epigastric pain I have referred yo back to Dr Victor's office to see Pao Cabrera Nurse Practitioner.Referral:Pao Melo, SHANK THREADER, Family/[id number] Pain in right ankle and joints of right footComments:For your ankle and foot pain:I am referring you back to Dr Westbrook.Referral:Slava Westbrook MD, Surgery,[id number] Nicotine dependence, cigarettes, uncomplicatedComments:I urge you to continue your efforts to quit smoking.F33.9 Major depressive disorder, recurrent, unspecifiedNew Medication:Seroquel 50 mg - One po dailyComments:For your depression it is imperative that you follow through with the folks at [facility] Department.
[2018-12-22 18:55] LABS: Urine Appearance Cloudy; Urine Bacteria Absent (Absent); Urine Bilirubin Negative (Negative); Urine Blood 3+ (Negative); Urine Color Amber; Urine Glucose Negative (Negative); Urine Ketones 2+ (Negative); Urine Nitrite Negative (Negative); Urine Protein 2+(100 mg/dL) (Negative); Urine Red Blood Cell 3+(>10/hpf) (Absent); Urine Specific Gravity 1.029 (1.010-1.030); Urine Squamous Epithelial Cell Present (Absent); Urine Urobilinogen Negative (Negative); Urine White Blood Cell Trace(0-5/hpf) (Absent)
--- NOTE | 2018-12-22 20:46 | ED ---
Abdominal Pain/Female - HPI Summary HPI Summary: patient has a history of pancreatitis last admission in June 2018--she has had no recent issues but she drank alcohol on Thursday and for the past 2-3 days has not been able to keep down fluids--- - History of Current Complaint Chief Complaint: EDAbdPain Stated Complaint: PANCREATITIS PER PT Time Seen by Provider: 12/22/18 20:44 Hx Obtained From: Patient ?: No Onset/Duration: Gradual Onset, Lasting Days, Still Present Timing: Constant Pain Intensity: 10 Pain Scale Used: 0-10 Numeric Location: Discrete At: LUQ Radiates: Yes Radiates to: Back Character: Tearing, Colicy Aggravating Factor(s): Food Alleviating Factor(s): Nothing Associated Signs and Symptoms: Positive: Decreased Appetite, Nausea, Vomiting Allergies/Adverse Reactions: Allergies Allergy/AdvReac Type Severity Reaction Status Date / Time azithromycin Allergy Severe Difficulty Verified 12/22/18 17:53 Breathing cephalexin [From Keflex] Allergy Severe Palpitation Verified 12/22/18 17:53 s ciprofloxacin Allergy Severe Difficulty Verified 12/22/18 17:53 Breathing codeine Allergy Severe Hives Verified 12/22/18 17:53 lorazepam Allergy Severe Altered Verified 12/22/18 17:53 Mental Status acetaminophen Allergy Intermediate Nausea And Verified 12/22/18 17:53 Vomiting PMH/Surg Hx/FS Hx/Imm Hx Previously Healthy: No Endocrine/Hematology History: Reports: Hx Anemia - Hx OF YEARS AGO, Other Endocrine/Hematological Disorders - hx of pancreatitis Denies: Hx Diabetes, Hx Systemic Lupus Erythematosus, Hx Sickle Cell Disease , Hx Thyroid Disease Cardiovascular History: Denies: Hx Hypercholesterolemia, Hx Hypertension, Other Cardiovascular Problems/Disorders Respiratory History: Reports: Hx Asthma - has an inhaler-doesn't use often Denies: Other Respiratory Problems/Disorders GI History: Reports: Hx Gastroesophageal Reflux Disease, Hx Irritable Bowel - not diagnosed, states she has loud stomach and bowel sounds, Other GI Disorders - PANCREATITIS last admission 03/29/18-04/01/18 History: Reports: Hx Kidney Infection, Hx Kidney Stones, Other Problems/ Disorders - Urethral stent 2000-was at the time too much pressure on urethra Denies: Hx Renal Disease Musculoskeletal History: Reports: Hx Back Problems, Hx Tendonitis - Bilateral wrists age 15, Other Musculoskeletal History - right foot fracture repair- hardware in right foot Sensory History: Denies: Hx Contacts or Glasses, Hx Deafness, Hx Hearing Aid Opthamlomology History: Denies: Hx Contacts or Glasses Neurological History: Reports: Hx Headaches Denies: Other Neuro Impairments/Disorders Psychiatric History: Reports: Hx Anxiety - ON DAILY MEDS, Hx Depression - Hx OF NONE NOW, Hx Panic Disorder, Hx Post Traumatic Stress Disorder - No formal dx , Hx Inpatient Treatment, Hx Community Mental Health Tx, Hx Substance Abuse - alcohol Denies: Hx Attention Deficit Hyperactivity Disorder, Hx Eating Disorder, Hx Schizophrenia, Hx Bipolar Disorder, Hx Suicide Attempt, Hx of Violent Episodes Against Others - Surgical History Surgery Procedure, Year, and Place: 2000 Urethral stenting with [facility]- epidural. Screws in right foot Hx Anesthesia Reactions: No - Immunization History Date of Tetanus Vaccine: UTD Date of Influenza Vaccine: 03/2017 Infectious Disease History: No Infectious Disease History: Denies: Hx Clostridium Difficile, Hx Hepatitis, Hx Human Immunodeficiency Virus (HIV), Hx of Known/Suspected MRSA, Hx Shingles, Hx Tuberculosis, History Other Infectious Disease, Traveled Outside the [place] in Last 30 Days - Family History Known Family History: Positive: Other - cervical CA, brain tumor - Social History Occupation: Works From/At Home Lives: With Family Alcohol Use: Occasionally Alcohol Amount: ETOH use x 4 days ago Hx Substance Use: No Substance Use Type: Reports: None Hx Tobacco Use: Yes Smoking Status (MU): Heavy Every Day Tobacco Smoker Type: Cigarettes Amount Used/How Often: 1 ppd 24 years Length of Time of Smoking/Using Tobacco: 20 YRS Have You Smoked in the Last Year: Yes Review of Systems Positive: Chills Eyes: Negative ENT: Negative Cardiovascular: Negative Respiratory: Negative Positive: Abdominal Pain, Vomiting, Nausea Genitourinary: Negative Musculoskeletal: Negative Skin: Negative Neurological: Negative Psychological: Normal All Other Systems Reviewed And Are Negative: No Physical Exam Triage Information Reviewed: Yes Vital Signs On Initial Exam: Initial Vitals Temp Pulse Resp BP Pulse Ox 97.3 F 132 16 124/103 98 12/22/18 17:50 12/22/18 17:50 12/22/18 17:50 12/22/18 17:50 12/22/18 17:50 Vital Signs Reviewed: Yes Appearance: Positive: Well-Nourished, Ill-Appearing, Pain Distress Skin: Positive: Warm, Skin Color Reflects Adequate Perfusion, Dry Head/Face: Positive: Normal Head/Face Inspection Eyes: Positive: Normal, EOMI, OWEN ENT: Positive: Normal ENT inspection, Hearing grossly normal. Negative: Trismus , Muffled voice, Hoarse voice Neck: Positive: Supple, Nontender, No Lymphadenopathy Respiratory/Lung Sounds: Positive: Clear to Auscultation, Breath Sounds Present Cardiovascular: Positive: Normal, Pulses are Symmetrical in both Upper and Lower Extremities, Tachycardia, S1, S2 Abdomen Description: Positive: Soft, Other: - luq pain tender to palpations. Negative: Nontender, No Organomegaly, CVA Tenderness (R), CVA Tenderness (L), McBurney's Point Tenderness, Peritoneal Signs Bowel Sounds: Positive: Present Musculoskeletal: Positive: Normal, Strength/ROM Intact Neurological: Positive: Normal, Sensory/Motor Intact, Alert, Oriented to Person Place, Time, CN Intact II-III Psychiatric: Positive: Normal AVPU Assessment: Alert - [place] Coma Scale Best Eye Response: 4 - Spontaneous Best Motor Response: 6 - Obeys Commands Best Verbal Response: 5 - Oriented Coma Scale Total: 15 Diagnostics - Vital Signs Vital Signs Temp Pulse Resp BP Pulse Ox 12/22/18 19:43 98.5 F 116 20 137/107 100 12/22/18 17:50 97.3 F 132 16 124/103 98 - Laboratory Lab Results: Lab Results 12/22/18 Range/Units 18:35 Urine Color Anais Urine Appearance Cloudy Urine pH 6.0 (5-9) Ur Specific [place] 1.029 (1.010-1.030) Urine Protein 2+(100 mg/dl) A (Negative) Urine Ketones 2+ A (Negative) Urine Blood 3+ A (Negative) Urine Nitrate Negative (Negative) Urine Bilirubin Negative (Negative) Urine Urobilinogen Negative (Negative) Ur Leukocyte Esterase Trace A (Negative) Urine WBC (Auto) Trace(0-5/hpf) (Absent) Urine RBC (Auto) 3+(>10/hpf) A (Absent) Ur Squamous Epith Cells Present A (Absent) Urine Bacteria Absent (Absent) Hyaline Casts Present A (Absent) Urine Glucose Negative (Negative) Result Diagrams: 12/23/18 08:24 12/24/18 05:49 Lab Statement: Any lab studies that have been ordered have been reviewed, and results considered in the medical decision making process. - Radiology No standard instances Radiology Interpretation Completed By: Radiologist - acute edematous pancreatitis Abdominal Pain Fem Course/Dx - Course Course Of Treatment: npo, ivf, pain control, nausea medication, report to Dr. Weaver for evaluation of admission for intractable abdomen pain and acute pancreatitis - Diagnoses Provider Diagnoses: Alcohol abuse, Acute pancreatitis Discharge - Sign-Out/Discharge Documenting (check all that apply): Sign-Out Patient Signing out patient TO: Marc Ramey All imaging exams completed and their final reports reviewed: Yes Patient Received Moderate/Deep Sedation with Procedure: No - Discharge Plan Condition: Stable Disposition: ADMITTED TO [facility] - Billing Disposition and Condition Condition: STABLE Disposition: Admitted to [facility]
[2018-12-22] MEDS ORDERED: NS 0.9% 1000 ML** 1,000 ML IV ONE (20:53)
[2018-12-22] MEDS ORDERED: Ondansetron INJ* 2 MG/ML VIAL IV ONE (20:53)
[2018-12-22 20:57] LABS: ABS Basophils 0.1 10^3/ul (0-0.2); ABS Eosinophils 0.2 10^3/ul (0-0.6); ABS Lymphocytes 2.1 10^3/ul (1.0-4.8); ABS Monocytes 1.1 10^3/ul (0-0.8); ABS Neutrophils 8.6 10^3/ul (1.5-7.7); Eosinophil % 1.9 %; Hematocrit 43 % (35-47); Hemoglobin 14.1 g/dL (12.0-16.0); Lymphocyte % 17.7 %; Mean Corpuscular HGB Conc 33 g/dL (31-36); Mean Corpuscular Hemoglobin 30 pg (27-31); Mean Corpuscular Volume 92 fL (80-97); Mean Platelet Volume 7.8 fL (7.4-10.4); Platelet Count 279 10^3/uL (150-450); Red Blood Count 4.66 10^6 /uL (3.70-4.87); Red Cell Distribution Width 20 % (10-15); White Blood Count 12.1 10^3/uL (3.5-10.8)
[2018-12-22 21:15] LABS: ALT 30 U/L (7-52); AST 43 U/L (13-39); Albumin 4.4 g/dL (3.2-5.2); Albumin/Globulin Ratio 1.2 (1-3); Alkaline Phosphatase 133 U/L (34-104); Anion Gap 11 mmol/L (2-11); BUN/Creatinine Ratio 13.8 (8-20); Blood Urea Nitrogen 12 mg/dL (6-24); C Reactive Protein 9.76 mg/L (<8.01); CO2 Carbon Dioxide 21 mmol/L (22-32); Calcium 9.6 mg/dL (8.6-10.3); Chloride 104 mmol/L (101-111); EGFR African American 88.6 (>60); EGFR Non-African American 73.3 (>60); Globulin 3.6 g/dL (2-4); Glucose 90 mg/dL (70-100); Potassium 4.2 mmol/L (3.5-5.0); Sodium 136 mmol/L (135-145)
[2018-12-22] MEDS ORDERED: HYDROmorphone INJ1* 1 MG/ML SYRINGE IV ONE ×2 (21:18→22:05)
[2018-12-22 21:34] LABS: Amylase 45 U/L (29-103)
[2018-12-22 21:35] LABS: Alcohol < 10 mg/dL (<10)
[2018-12-22 21:37] LABS: HCG Pregnancy 0.89 mIU/mL
[2018-12-22] MEDS ORDERED: Iohexol 300* (CONTRAST) 10 ML SDV IV ONE (22:52)
[2018-12-23] MEDS ORDERED: HYDROmorphone INJ1* 1 MG/ML SYRINGE IV ONE (01:10)
[2018-12-23] MEDS ORDERED: Ondansetron INJ* 2 MG/ML VIAL IV ONE (01:10)
[2018-12-23] MEDS ORDERED: NS 0.9% 1000 ML** 1,000 ML IV SCH (01:30)
[2018-12-23] MEDS ORDERED: Albuterol HFA INHALER* 8 gm MDI INH PRN (02:29)
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
[2018-12-23] MEDS: NS 0.9% 1000 ML** 1,000 ML IV SCH ×3 (03:22→18:32)
[2018-12-23] MEDS: HYDROmorphone INJ1* 1 MG/ML SYRINGE IV SLOW PU PRN ×7 (03:27→21:37)
[2018-12-23] MEDS: Famotidine IV* 10 MG/ML 2 ML (20 mg) IV SLOW PU SCH ×2 (08:21→21:37)
[2018-12-23] MEDS: Gabapentin CAP(*) 300 MG PO SCH ×4 (08:22→21:36)
[2018-12-23 08:41] LABS: ABS Basophils 0.1 10^3/ul (0-0.2); ABS Eosinophils 0.2 10^3/ul (0-0.6); ABS Lymphocytes 2.5 10^3/ul (1.0-4.8); ABS Monocytes 0.9 10^3/ul (0-0.8); ABS Neutrophils 4.4 10^3/ul (1.5-7.7); Eosinophil % 2.8 %; Hematocrit 37 % (35-47); Lymphocyte % 30.6 %; Mean Corpuscular HGB Conc 33 g/dL (31-36); Mean Corpuscular Hemoglobin 30 pg (27-31); Mean Corpuscular Volume 94 fL (80-97); Mean Platelet Volume 8.2 fL (7.4-10.4); Platelet Count 204 10^3/uL (150-450); Red Blood Count 3.95 10^6 /uL (3.70-4.87); Red Cell Distribution Width 20 % (10-15); White Blood Count 8.1 10^3/uL (3.5-10.8)
[2018-12-23 08:59] LABS: BUN/Creatinine Ratio 14.3 (8-20); Calcium 8.1 mg/dL (8.6-10.3); EGFR African American 147.4 (>60); EGFR Non-African American 121.8 (>60); Potassium 3.7 mmol/L (3.5-5.0)
[2018-12-23] MEDS ORDERED: Nicotine PATCH 21 MG/24 HR* PATCH ONE (14:10)
[2018-12-23] MEDS: Nicotine PATCH 21 MG/24 HR* PATCH TRANSDERM SCH (14:17)
--- NOTE | 2018-12-23 15:52 | PN ---
Subjective Date of Service: 12/23/18 Interval History: Received notification from RN that patient did not feel current pain medication regime was controlling pain. Patient assessed in bed. Reports pain in epigastric area has improved, but continues to have "7 to 8" out of 10 pain in left upper quad radiating to side. Currently denies nausea. Denies fever, chills, cp, sob, palpitations. Objective Active Medications: Albuterol (Ventolin Hfa Inhaler*) 2 puff INH Q4HR PRN PRN Reason: SHORTNESS OF BREATH Famotidine (Pepcid Iv*) 20 mg IV SLOW PU BID [facility] Last Admin: 12/23/18 08:21 Dose: 20 mg Gabapentin (Neurontin Cap(*)) 600 mg PO QPM [facility] Gabapentin (Neurontin Cap(*)) 900 mg PO TID [facility] Last Admin: 12/23/18 14:19 Dose: 900 mg Hydromorphone HCl (Dilaudid Inj1s*) 1 mg IV SLOW PU Q3H PRN PRN Reason: PAIN Last Admin: 12/23/18 15:38 Dose: 1 mg Hydroxyzine HCl (Atarax Tab*) 25 mg PO BEDTIME PRN PRN Reason: ANXIETY Sodium Chloride (Ns 0.9% 1000 Ml) 1,000 mls @ 125 mls/hr IV PER RATE [facility] Last Admin: 12/23/18 08:21 Dose: 125 mls/hr Melatonin (Melatonin) 3 mg PO QPM PRN PRN Reason: SLEEP Nicotine (Nicotine Patch 21 Mg/24 Hr*) 1 patch TRANSDERM DAILY [facility] Last Admin: 12/23/18 14:17 Dose: 1 patch Ondansetron HCl (Zofran Inj*) 4 mg IV Q6H PRN PRN Reason: NAUSEA Pharmacy Profile Note (Nicotine Patch Removal Note*) 1 note FOLLOW UP 2100 [facility] Quetiapine Fumarate (Seroquel Tab*) 50 mg PO BEDTIME [facility] Vital Signs - 8 hr 12/23/18 12/23/18 12/23/18 08:12 08:22 09:38 Temperature Pulse Rate Respiratory 16 16 16 Rate Blood Pressure (mmHg) O2 Sat by Pulse Oximetry 12/23/18 12/23/18 12/23/18 10:42 11:14 11:35 Temperature 97.6 F Pulse Rate 94 Respiratory 18 18 18 Rate Blood Pressure 121/79 (mmHg) O2 Sat by Pulse 98 Oximetry 12/23/18 12/23/18 12/23/18 11:36 12:23 14:07 Temperature Pulse Rate Respiratory 18 18 18 Rate Blood Pressure (mmHg) O2 Sat by Pulse Oximetry 12/23/18 12/23/18 14:19 15:38 Temperature Pulse Rate Respiratory 18 18 Rate Blood Pressure (mmHg) O2 Sat by Pulse Oximetry Oxygen Devices in Use Now: None Appearance: Comfortable, NAD Eyes: No Scleral Icterus Ears/Nose/Mouth/Throat: Clear Oropharnyx, Mucous Membranes Moist Neck: NL Appearance and Movements; NL JVP Respiratory: Symmetrical Chest Expansion and Respiratory Effort, Clear to Auscultation Cardiovascular: NL Sounds; No Murmurs; No JVD, RRR, No Edema Abdominal: - - Soft. Tender to epigrastric and LUQ. No rebound tenderness. BS+. Lymphatic: No Cervical Adenopathy Extremities: No Clubbing, Cyanosis Skin: No Rash or Ulcers Neurological: Alert and Oriented x 3 Nutrition: - - NPO Result Diagrams: 12/23/18 08:24 12/23/18 08:24 Additional Lab and Data: Laboratory Results - last 24 hr 12/22/18 12/22/18 12/22/18 18:35 20:51 20:51 WBC 12.1 H RBC 4.66 Hgb 14.1 Hct 43 MCV 92 MCH 30 MCHC 33 RDW 20 H Plt Count 279 MPV 7.8 Neut % (Auto) 70.9 Lymph % (Auto) 17.7 Bent % (Auto) 8.8 Eos % (Auto) 1.9 Baso % (Auto) 0.7 Absolute Neuts (auto) 8.6 H Absolute Lymphs (auto) 2.1 Absolute Monos (auto) 1.1 H Absolute Eos (auto) 0.2 Absolute Basos (auto) 0.1 Absolute Nucleated RBC 0.0 Nucleated RBC % 0.0 Sodium 136 Potassium 4.2 Chloride 104 Carbon Dioxide 21 L Anion Gap 11 BUN 12 Creatinine 0.87 Est GFR ( Amer) 88.6 Est GFR (Non-Af Amer) 73.3 BUN/Creatinine Ratio 13.8 Glucose 90 Lactic Acid Calcium 9.6 Total Bilirubin 0.40 AST 43 H ALT 30 Alkaline Phosphatase 133 H C-Reactive Protein 9.76 H Total Protein 8.0 Albumin 4.4 Globulin 3.6 Albumin/Globulin Ratio 1.2 Amylase 45 Lipase 100 H Beta HCG, Quant 0.89 Urine Color Anais Urine Appearance Cloudy Urine pH 6.0 Ur Specific [place] 1.029 Urine Protein 2+(100 mg/dl) A Urine Ketones 2+ A Urine Blood 3+ A Urine Nitrate Negative Urine Bilirubin Negative Urine Urobilinogen Negative Ur Leukocyte Esterase Trace A Urine WBC (Auto) Trace(0-5/hpf) Urine RBC (Auto) 3+(>10/hpf) A Ur Squamous Epith Cells Present A Urine Bacteria Absent Hyaline Casts Present A Urine Glucose Negative Serum Alcohol < 10 12/22/18 12/23/18 12/23/18 20:51 00:03 08:24 WBC 8.1 RBC 3.95 Hgb 12.0 Hct 37 MCV 94 MCH 30 MCHC 33 RDW 20 H Plt Count 204 MPV 8.2 Neut % (Auto) 54.5 Lymph % (Auto) 30.6 Bent % (Auto) 11.0 Eos % (Auto) 2.8 Baso % (Auto) 1.1 Absolute Neuts (auto) 4.4 Absolute Lymphs (auto) 2.5 Absolute Monos (auto) 0.9 H Absolute Eos (auto) 0.2 Absolute Basos (auto) 0.1 Absolute Nucleated RBC 0.0 Nucleated RBC % 0.0 Sodium Potassium Chloride Carbon Dioxide Anion Gap BUN Creatinine Est GFR ( Amer) Est GFR (Non-Af Amer) BUN/Creatinine Ratio Glucose Lactic Acid 0.5 0.4 L Calcium Total Bilirubin AST ALT Alkaline Phosphatase C-Reactive Protein Total Protein Albumin Globulin Albumin/Globulin Ratio Amylase Lipase Beta HCG, Quant Urine Color Urine Appearance Urine pH Ur Specific [place] Urine Protein Urine Ketones Urine Blood Urine Nitrate Urine Bilirubin Urine Urobilinogen Ur Leukocyte Esterase Urine WBC (Auto) Urine RBC (Auto) Ur Squamous Epith Cells Urine Bacteria Hyaline Casts Urine Glucose Serum Alcohol 12/23/18 08:24 WBC RBC Hgb Hct MCV MCH MCHC RDW Plt Count MPV Neut % (Auto) Lymph % (Auto) Bent % (Auto) Eos % (Auto) Baso % (Auto) Absolute Neuts (auto) Absolute Lymphs (auto) Absolute Monos (auto) Absolute Eos (auto) Absolute Basos (auto) Absolute Nucleated RBC Nucleated RBC % Sodium 137 Potassium 3.7 Chloride 108 Carbon Dioxide 19 L Anion Gap 10 BUN 8 Creatinine 0.56 Est GFR ( Amer) 147.4 Est GFR (Non-Af Amer) 121.8 BUN/Creatinine Ratio 14.3 Glucose 75 Lactic Acid Calcium 8.1 L Total Bilirubin AST ALT Alkaline Phosphatase C-Reactive Protein Total Protein Albumin Globulin Albumin/Globulin Ratio Amylase Lipase 136 H Beta HCG, Quant Urine Color Urine Appearance Urine pH Ur Specific [place] Urine Protein Urine Ketones Urine Blood Urine Nitrate Urine Bilirubin Urine Urobilinogen Ur Leukocyte Esterase Urine WBC (Auto) Urine RBC (Auto) Ur Squamous Epith Cells Urine Bacteria Hyaline Casts Urine Glucose Serum Alcohol Diagnostic Imaging: CT abdomen/pelvis: interstitial pancreatic inflammation, bilateral nephrolithiasis Assess/Plan/Problems-Billing Assessment: 38 year old woman with recurrent alcoholic pancreatitis - Patient Problems (1) Acute on chronic pancreatitis Comment: - Pain regime increased from Dilaudid 0.5 mg to 1 mg Q 3 hrs. - Cont bowel rest, anti-emetics, IV fluids, and pain control - Cont NPO until pain improves (2) Alcohol abuse Comment: - Currently no s/s of ETOH withdrawal - Cont to monitor and start tart WAM protocol if needed. - Encourage abstinence and outpatient f/u (3) DVT prophylaxis Comment: - Encouraged ambulation - Low risk (4) Full code status Comment: Status and Disposition: inpatient Attending: Yancy Cat
[2018-12-23] MEDS ORDERED: Dextrose 50% Syringe 50 ML* 25 GM/50 ML SYRINGE IV PUSH PRN (19:02)
[2018-12-23] MEDS ORDERED: D5W 1/2 NS 1000 ML BAG* 1,000 ML IV SCH (20:00)
[2018-12-23] MEDS ORDERED: Nicotine Patch Removal NOTE PATCH OFF SCH (21:00)
[2018-12-23] MEDS: QUEtiapine TAB* 25 MG PO SCH (21:36)
[2018-12-23] MEDS: hydrOXYzine HCL TAB* 25 MG PO PRN (21:37)
[2018-12-23] MEDS: Nicotine Patch Removal NOTE FOLLOW UP SCH (21:39)
[2018-12-23] MEDS: Melatonin 3 MG TAB PO PRN (23:22)
[2018-12-24] MEDS: HYDROmorphone INJ1* 1 MG/ML SYRINGE IV SLOW PU PRN ×7 (02:16→21:00)
[2018-12-24 06:27] LABS: BUN/Creatinine Ratio 5.5 (8-20); Calcium 8.4 mg/dL (8.6-10.3); EGFR African American 150.5 (>60); EGFR Non-African American 124.4 (>60); Potassium 3.7 mmol/L (3.5-5.0)
[2018-12-24] MEDS: Gabapentin CAP(*) 300 MG PO SCH ×4 (07:26→21:10)
[2018-12-24] MEDS: Ondansetron INJ* 2 MG/ML VIAL IV PRN ×3 (07:30→21:45)
[2018-12-24] MEDS: Famotidine IV* 10 MG/ML 2 ML (20 mg) IV SLOW PU SCH ×2 (07:30→21:00)
[2018-12-24] MEDS: Nicotine PATCH 21 MG/24 HR* PATCH TRANSDERM SCH (07:38)
[2018-12-24] MEDS: NS 0.9% 1000 ML** 1,000 ML IV SCH ×3 (10:56→23:57)
--- NOTE | 2018-12-24 16:41 | PN ---
Subjective Date of Service: 12/24/18 Interval History: Patient observed ambulating unit without difficulty this morning, showered independently, and changed her sheets. Received update from nurse this morning that patient was requesting to advance diet from NPO, therefore, patient's diet advanced to clears. On assessment patient is changing the sheets on her bed. She reports that her pain became worse last evening around 0300 and the Dilaudid is not longer working as well. Patient is requesting 2 mg Dilaudid every 4 hrs instead of 1 mg every 3 hrs. Patient denies nausea. Patient reports she has had some diarrhea. Patient denies fever, chills, weakness, sob, cp Objective Active Medications: Albuterol (Ventolin Hfa Inhaler*) 2 puff INH Q4HR PRN PRN Reason: SHORTNESS OF BREATH Dextrose (D50w Syringe 50 Ml*) 25 gm IV PUSH ONCE PRN PRN Reason: FS < 60 Famotidine (Pepcid Iv*) 20 mg IV SLOW PU BID [facility] Last Admin: 12/24/18 07:30 Dose: 20 mg Gabapentin (Neurontin Cap(*)) 600 mg PO QPM [facility] Last Admin: 12/23/18 18:33 Dose: 600 mg Gabapentin (Neurontin Cap(*)) 900 mg PO TID [facility] Last Admin: 12/24/18 13:39 Dose: 900 mg Hydromorphone HCl (Dilaudid Inj1s*) 1 mg IV SLOW PU Q3H PRN PRN Reason: PAIN Last Admin: 12/24/18 14:47 Dose: 1 mg Hydroxyzine HCl (Atarax Tab*) 25 mg PO BEDTIME PRN PRN Reason: ANXIETY Last Admin: 12/23/18 21:37 Dose: 25 mg Sodium Chloride (Ns 0.9% 1000 Ml) 1,000 mls @ 125 mls/hr IV PER RATE [facility] Last Admin: 12/24/18 15:36 Dose: 125 mls/hr Melatonin (Melatonin) 3 mg PO QPM PRN PRN Reason: SLEEP Last Admin: 12/23/18 23:22 Dose: 3 mg Nicotine (Nicotine Patch 21 Mg/24 Hr*) 1 patch TRANSDERM DAILY [facility] Last Admin: 12/24/18 07:38 Dose: 1 patch Ondansetron HCl (Zofran Inj*) 4 mg IV Q6H PRN PRN Reason: NAUSEA Last Admin: 12/24/18 13:40 Dose: 4 mg Pharmacy Profile Note (Nicotine Patch Removal Note*) 1 note FOLLOW UP 2100 [facility] Last Admin: 12/23/18 21:39 Dose: 1 note Quetiapine Fumarate (Seroquel Tab*) 50 mg PO BEDTIME [facility] Last Admin: 12/23/18 21:36 Dose: 50 mg Vital Signs - 8 hr 12/24/18 12/24/18 12/24/18 08:37 09:12 09:35 Temperature 97.7 F Pulse Rate 96 Respiratory 16 18 18 Rate Blood Pressure 121/90 (mmHg) O2 Sat by Pulse 98 Oximetry 12/24/18 12/24/18 12/24/18 11:36 11:37 12:35 Temperature 98.5 F Pulse Rate 104 Respiratory 20 16 20 Rate Blood Pressure 131/93 (mmHg) O2 Sat by Pulse 99 Oximetry 12/24/18 12/24/18 12/24/18 13:39 14:47 15:56 Temperature Pulse Rate Respiratory 18 18 18 Rate Blood Pressure (mmHg) O2 Sat by Pulse Oximetry Oxygen Devices in Use Now: None Appearance: Comfortable, NAD Eyes: No Scleral Icterus Ears/Nose/Mouth/Throat: Clear Oropharnyx, Mucous Membranes Moist Neck: NL Appearance and Movements; NL JVP Respiratory: Symmetrical Chest Expansion and Respiratory Effort, Clear to Auscultation Cardiovascular: NL Sounds; No Murmurs; No JVD, RRR, No Edema Abdominal: - - Soft. Tender to finger tip touch in epigastric area and throughout left qauds. BS + Lymphatic: No Cervical Adenopathy Extremities: No Edema Skin: No Rash or Ulcers Neurological: Alert and Oriented x 3 Nutrition: Taking PO's Result Diagrams: 12/23/18 08:24 12/24/18 05:49 Additional Lab and Data: Laboratory Results - last 24 hr 12/23/18 12/24/18 18:54 05:49 Sodium 136 Potassium 3.7 Chloride 109 Carbon Dioxide 20 L Anion Gap 7 BUN 3 L Creatinine 0.55 Est GFR ( Amer) 150.5 Est GFR (Non-Af Amer) 124.4 BUN/Creatinine Ratio 5.5 L Glucose 129 H POC Glucose (mg/dL) 65 L Calcium 8.4 L Lipase 417 H Microbiology and Other Data: Microbiology 12/22/18 18:35 Urine Culture - Final Urine Diagnostic Imaging: CT abdomen/pelvis: interstitial pancreatic inflammation, bilateral nephrolithiasis Assess/Plan/Problems-Billing Assessment: 38 year old woman with recurrent alcoholic pancreatitis - Patient Problems (1) Acute on chronic pancreatitis Comment: - Dilaudid 1 mg Q 3 hrs. - Discussed increasing pain medications to requested 2 mg Q4 hr. Discussed risk versus benefits including risk of over sedation and SBO. Educated on pain medication intended to decrease pain, but not take it away. - Cont bowel rest, anti-emetics, IV fluids, and pain control - Resume NPO since pain is worse than previously (2) Alcohol abuse Comment: - Currently no s/s of ETOH withdrawal - Cont to monitor and start tart WAM protocol if needed. - Encourage abstinence and outpatient f/u (3) DVT prophylaxis Comment: - Encouraged ambulation - Low risk (4) Full code status Comment: Status and Disposition: inpatient Attending: Yancy Cat
[2018-12-24] MEDS: QUEtiapine TAB* 25 MG PO SCH (21:10)
[2018-12-24] MEDS: Nicotine Patch Removal NOTE FOLLOW UP SCH (21:11)
[2018-12-24] MEDS: Melatonin 3 MG TAB PO PRN (21:12)
[2018-12-24] MEDS: hydrOXYzine HCL TAB* 25 MG PO PRN (21:45)
[2018-12-25] MEDS: HYDROmorphone INJ1* 1 MG/ML SYRINGE IV SLOW PU PRN ×8 (03:32→23:26)
[2018-12-25] MEDS: Nicotine PATCH 21 MG/24 HR* PATCH TRANSDERM SCH (07:50)
[2018-12-25] MEDS: Gabapentin CAP(*) 300 MG PO SCH ×4 (07:50→21:01)
[2018-12-25] MEDS: NS 0.9% 1000 ML** 1,000 ML IV SCH (07:59)
[2018-12-25] MEDS: Famotidine IV* 10 MG/ML 2 ML (20 mg) IV SLOW PU SCH ×2 (08:00→21:08)
[2018-12-25] MEDS ORDERED: NS 0.9% 1000 ML** 1,000 ML IV SCH (08:47)
[2018-12-25 09:15] LABS: ABS Eosinophils 0.2 10^3/ul (0-0.6); ABS Lymphocytes 1.9 10^3/ul (1.0-4.8); ABS Monocytes 0.6 10^3/ul (0-0.8); Eosinophil % 3.2 %; Hematocrit 33 % (35-47); Hemoglobin 11.2 g/dL (12.0-16.0); Mean Corpuscular HGB Conc 34 g/dL (31-36); Mean Corpuscular Hemoglobin 31 pg (27-31); Mean Corpuscular Volume 93 fL (80-97); Mean Platelet Volume 8.1 fL (7.4-10.4); Nucleated Red Blood Cells % 0.2; Platelet Count 208 10^3/uL (150-450); Red Blood Count 3.58 10^6 /uL (3.70-4.87); Red Cell Distribution Width 19 % (10-15); White Blood Count 5.7 10^3/uL (3.5-10.8)
[2018-12-25 09:30] LABS: BUN/Creatinine Ratio 4.2 (8-20); Blood Urea Nitrogen 2 mg/dL (6-24); CO2 Carbon Dioxide 19 mmol/L (22-32); Calcium 8.4 mg/dL (8.6-10.3); EGFR African American 176.1 (>60); EGFR Non-African American 145.5 (>60); Glucose 65 mg/dL (70-100); Sodium 140 mmol/L (135-145)
[2018-12-25 09:56] LABS: Chloride 114 mmol/L (101-111)
[2018-12-25 09:58] LABS: Anion Gap 7 mmol/L (2-11)
[2018-12-25] MEDS: Lactated Ringers 1000 ML Bag* 1,000 ML IV SCH (13:14)
[2018-12-25] MEDS ORDERED: HYDROmorphone INJ1* 1 MG/ML SYRINGE IV SLOW PU ONE (13:19)
[2018-12-25] MEDS: Ondansetron INJ* 2 MG/ML VIAL IV PRN (13:31)
--- NOTE | 2018-12-25 15:03 | PN ---
Subjective Date of Service: 12/25/18 Interval History: Patient asleep and woke for assessment. Reports LUQ and left side pain is "9 to 10" out of 10 which is slight improvement from yesterday as it was a "10 out of 10". Reports diarrhea which has been on going for approx one year. Reports she has seen her PCP and has follow up with GI for scope. Denies nausea, vomiting, cp, sob, palpitations. Objective Active Medications: Albuterol (Ventolin Hfa Inhaler*) 2 puff INH Q4HR PRN PRN Reason: SHORTNESS OF BREATH Dextrose (D50w Syringe 50 Ml*) 25 gm IV PUSH ONCE PRN PRN Reason: FS < 60 Famotidine (Pepcid Iv*) 20 mg IV SLOW PU BID [facility] Last Admin: 12/25/18 08:00 Dose: 20 mg Gabapentin (Neurontin Cap(*)) 600 mg PO QPM [facility] Last Admin: 12/24/18 17:49 Dose: 600 mg Gabapentin (Neurontin Cap(*)) 900 mg PO TID [facility] Last Admin: 12/25/18 13:14 Dose: 900 mg Hydromorphone HCl (Dilaudid Inj1s*) 1 mg IV SLOW PU Q3H PRN PRN Reason: PAIN Last Admin: 12/25/18 14:08 Dose: 1 mg Hydroxyzine HCl (Atarax Tab*) 25 mg PO BEDTIME PRN PRN Reason: ANXIETY Last Admin: 12/24/18 21:45 Dose: 25 mg Lactated Ringer's (Lactated Ringers 1000 Ml Bag*) 1,000 mls @ 75 mls/hr IV PER RATE [facility] Last Admin: 12/25/18 13:14 Dose: 75 mls/hr Melatonin (Melatonin) 3 mg PO QPM PRN PRN Reason: SLEEP Last Admin: 12/24/18 21:12 Dose: 3 mg Nicotine (Nicotine Patch 21 Mg/24 Hr*) 1 patch TRANSDERM DAILY [facility] Last Admin: 12/25/18 07:50 Dose: 1 patch Ondansetron HCl (Zofran Inj*) 4 mg IV Q6H PRN PRN Reason: NAUSEA Last Admin: 12/25/18 13:31 Dose: 4 mg Pharmacy Profile Note (Nicotine Patch Removal Note*) 1 note FOLLOW UP 2099 [facility] Last Admin: 12/24/18 21:11 Dose: 1 note Quetiapine Fumarate (Seroquel Tab*) 50 mg PO BEDTIME [facility] Last Admin: 12/24/18 21:10 Dose: 50 mg Vital Signs - 8 hr 12/25/18 12/25/18 12/25/18 07:49 07:50 09:52 Respiratory 16 16 16 Rate 12/25/18 12/25/18 12/25/18 10:10 10:50 13:14 Respiratory 16 16 20 Rate 12/25/18 12/25/18 12/25/18 13:17 13:30 14:08 Respiratory 18 20 22 Rate Oxygen Devices in Use Now: None Appearance: Comfortable, NAD Eyes: No Scleral Icterus Ears/Nose/Mouth/Throat: Clear Oropharnyx, Mucous Membranes Moist Neck: NL Appearance and Movements; NL JVP Respiratory: Symmetrical Chest Expansion and Respiratory Effort, Clear to Auscultation Cardiovascular: NL Sounds; No Murmurs; No JVD, RRR, No Edema Abdominal: - - Soft. Tender to light palpation of LUQ and left side of torso Lymphatic: No Cervical Adenopathy Extremities: No Clubbing, Cyanosis Skin: No Rash or Ulcers Neurological: Alert and Oriented x 3 Nutrition: Taking PO's Result Diagrams: 12/25/18 09:04 12/25/18 09:58 Additional Lab and Data: Laboratory Results - last 24 hr 12/25/18 12/25/18 12/25/18 09:04 09:04 09:58 WBC 5.7 RBC 3.58 L Hgb 11.2 L Hct 33 L MCV 93 MCH 31 MCHC 34 RDW 19 H Plt Count 208 MPV 8.1 Neut % (Auto) 52.3 Lymph % (Auto) 34.0 [place] % (Auto) 9.7 Eos % (Auto) 3.2 Baso % (Auto) 0.8 Absolute Neuts (auto) 3.0 Absolute Lymphs (auto) 1.9 Absolute Monos (auto) 0.6 Absolute Eos (auto) 0.2 Absolute Basos (auto) 0.0 Absolute Nucleated RBC 0.0 Nucleated RBC % 0.2 Sodium 140 Potassium TNP 3.9 Chloride 114 H Carbon Dioxide 19 L Anion Gap 7 BUN 2 L Creatinine 0.48 L Est GFR ( Amer) 176.1 Est GFR (Non-Af Amer) 145.5 BUN/Creatinine Ratio 4.2 L Glucose 65 L POC Glucose (mg/dL) Calcium 8.4 L Lipase 45 12/25/18 12:04 WBC RBC Hgb Hct MCV MCH MCHC RDW Plt Count MPV Neut % (Auto) Lymph % (Auto) [place] % (Auto) Eos % (Auto) Baso % (Auto) Absolute Neuts (auto) Absolute Lymphs (auto) Absolute Monos (auto) Absolute Eos (auto) Absolute Basos (auto) Absolute Nucleated RBC Nucleated RBC % Sodium Potassium Chloride Carbon Dioxide Anion Gap BUN Creatinine Est GFR ( Amer) Est GFR (Non-Af Amer) BUN/Creatinine Ratio Glucose POC Glucose (mg/dL) 71 Calcium Lipase Microbiology and Other Data: Microbiology 12/22/18 18:35 Urine Culture - Final Urine Diagnostic Imaging: CT abdomen/pelvis: interstitial pancreatic inflammation, bilateral nephrolithiasis Assess/Plan/Problems-Billing Assessment: 38 year old woman with recurrent alcoholic pancreatitis - Patient Problems (1) Acute on chronic pancreatitis Comment: - Lipase wnl - Requesting to advance diet. Reports she feels hungry. Education on pain, eating, and pancreatitis. Stated understanding. Diet advanced to clears - Cont Dilaudid 1 mg Q 3 hrs. - Discussed increasing pain medications to requested 2 mg Q4 hr. Discussed risk versus benefits including risk of over sedation and SBO. Educated on pain medication intended to decrease pain, but not take it away. - Cont bowel rest, anti-emetics, IV fluids (but at lowe rate and patient is taking PO), and pain control (2) Alcohol abuse Comment: - Currently no s/s of ETOH withdrawal - Cont to monitor and start tart WAM protocol if needed. - Encourage abstinence and outpatient f/u (3) DVT prophylaxis Comment: - Encouraged ambulation - Low risk (4) Full code status Comment: Status and Disposition: inpatient Attending: Yancy Cat
[2018-12-25] MEDS: Melatonin 3 MG TAB PO PRN (21:01)
[2018-12-25] MEDS: QUEtiapine TAB* 25 MG PO SCH (22:14)
[2018-12-25] MEDS: hydrOXYzine HCL TAB* 25 MG PO PRN (22:14)
[2018-12-25] MEDS: Nicotine Patch Removal NOTE FOLLOW UP SCH (22:15)
[2018-12-26] MEDS: Lactated Ringers 1000 ML Bag* 1,000 ML IV SCH ×2 (03:07→16:23)
[2018-12-26] MEDS: HYDROmorphone INJ1* 1 MG/ML SYRINGE IV SLOW PU PRN ×7 (03:07→22:25)
[2018-12-26 07:52] LABS: Anion Gap 6 mmol/L (2-11); CO2 Carbon Dioxide 22 mmol/L (22-32); Calcium 8.3 mg/dL (8.6-10.3); Chloride 111 mmol/L (101-111); EGFR African American 164.2 (>60); EGFR Non-African American 135.7 (>60); Glucose 74 mg/dL (70-100); Potassium 3.5 mmol/L (3.5-5.0); Sodium 139 mmol/L (135-145)
[2018-12-26 09:02] LABS: BUN/Creatinine Ratio 3.9 (8-20); Blood Urea Nitrogen < 2 mg/dL (6-24)
[2018-12-26] MEDS: Gabapentin CAP(*) 300 MG PO SCH ×4 (09:41→23:18)
[2018-12-26] MEDS: Nicotine PATCH 21 MG/24 HR* PATCH TRANSDERM SCH (09:42)
[2018-12-26] MEDS: Famotidine IV* 10 MG/ML 2 ML (20 mg) IV SLOW PU SCH ×2 (09:42→22:20)
--- NOTE | 2018-12-26 10:31 | PN ---
Subjective Date of Service: 12/26/18 Interval History: Per nursing patient taking PO fluids frequently and small amount of soft diet, but also continuing to ask for pain medication every 3 hours. Discussed pancreatitis and recommended treatment with patient. Since she is continuing to require IV pain medication routinely she will need to be placed back on NPO status. Patient became tearful stating the pain is the same when she eats as when she does not. Patient continues to endorse epigastric pain and left side pain. Denies nausea, vomiting, fever, chills, sob. Objective Active Medications: Albuterol (Ventolin Hfa Inhaler*) 2 puff INH Q4HR PRN PRN Reason: SHORTNESS OF BREATH Dextrose (D50w Syringe 50 Ml*) 25 gm IV PUSH ONCE PRN PRN Reason: FS < 60 Famotidine (Pepcid Iv*) 20 mg IV SLOW PU BID [facility] Last Admin: 12/26/18 09:42 Dose: 20 mg Gabapentin (Neurontin Cap(*)) 600 mg PO QPM [facility] Last Admin: 12/25/18 17:19 Dose: 600 mg Gabapentin (Neurontin Cap(*)) 900 mg PO TID [facility] Last Admin: 12/26/18 09:41 Dose: 900 mg Hydromorphone HCl (Dilaudid Inj1s*) 1 mg IV SLOW PU Q3H PRN PRN Reason: PAIN Last Admin: 12/26/18 09:49 Dose: 1 mg Hydroxyzine HCl (Atarax Tab*) 25 mg PO BEDTIME PRN PRN Reason: ANXIETY Last Admin: 12/25/18 22:14 Dose: 25 mg Lactated Ringer's (Lactated Ringers 1000 Ml Bag*) 1,000 mls @ 75 mls/hr IV PER RATE [facility] Last Admin: 12/26/18 03:07 Dose: 75 mls/hr Melatonin (Melatonin) 3 mg PO QPM PRN PRN Reason: SLEEP Last Admin: 12/25/18 21:01 Dose: 3 mg Nicotine (Nicotine Patch 21 Mg/24 Hr*) 1 patch TRANSDERM DAILY [facility] Last Admin: 12/26/18 09:42 Dose: 1 patch Ondansetron HCl (Zofran Inj*) 4 mg IV Q6H PRN PRN Reason: NAUSEA Last Admin: 12/25/18 13:31 Dose: 4 mg Pharmacy Profile Note (Nicotine Patch Removal Note*) 1 note FOLLOW UP 2100 [facility] Last Admin: 12/25/18 22:15 Dose: 1 note Quetiapine Fumarate (Seroquel Tab*) 50 mg PO BEDTIME [facility] Last Admin: 12/25/18 22:14 Dose: 50 mg Vital Signs - 8 hr 12/26/18 12/26/18 12/26/18 03:07 03:17 04:10 Temperature 97.9 F Pulse Rate 107 Respiratory 18 20 18 Rate Blood Pressure 136/94 (mmHg) O2 Sat by Pulse 93 Oximetry 12/26/18 12/26/18 12/26/18 06:45 09:41 09:49 Temperature Pulse Rate Respiratory 19 18 18 Rate Blood Pressure (mmHg) O2 Sat by Pulse Oximetry 12/26/18 10:06 Temperature Pulse Rate Respiratory 18 Rate Blood Pressure (mmHg) O2 Sat by Pulse Oximetry Oxygen Devices in Use Now: None Appearance: NAD Eyes: No Scleral Icterus Ears/Nose/Mouth/Throat: Clear Oropharnyx, Mucous Membranes Moist Neck: NL Appearance and Movements; NL JVP Respiratory: Symmetrical Chest Expansion and Respiratory Effort, Clear to Auscultation Cardiovascular: NL Sounds; No Murmurs; No JVD, RRR, No Edema Abdominal: - - Soft. BS+. Tenderness to epigastric region, LUQ, and left side of torso. Extremities: No Edema Skin: No Rash or Ulcers Neurological: Alert and Oriented x 3 Nutrition: - - NPO Result Diagrams: 12/25/18 09:04 12/26/18 07:20 Additional Lab and Data: Laboratory Results - last 24 hr 12/26/18 07:20 Sodium 139 Potassium 3.5 Chloride 111 Carbon Dioxide 22 Anion Gap 6 BUN < 2 L Creatinine 0.51 Est GFR ( Amer) 164.2 Est GFR (Non-Af Amer) 135.7 BUN/Creatinine Ratio 3.9 L Glucose 74 Calcium 8.3 L Microbiology and Other Data: Microbiology 12/22/18 18:35 Urine Culture - Final Urine Diagnostic Imaging: CT abdomen/pelvis: interstitial pancreatic inflammation, bilateral nephrolithiasis Assess/Plan/Problems-Billing Assessment: 38 year old woman with recurrent alcoholic pancreatitis - Patient Problems (1) Acute on chronic pancreatitis Comment: - No improvement in pain. - Patient was advanced to soft diet, but continued to require Q3 hr Dilaudid. Placed on NPO status again - Cont Dilaudid 1 mg Q 3 hrs. (2) Alcohol abuse Comment: - Currently no s/s of ETOH withdrawal - Cont to monitor and start tart WAM protocol if needed. - Encourage abstinence and outpatient f/u (3) DVT prophylaxis Comment: - Encouraged ambulation - Low risk (4) Full code status Comment: Status and Disposition: inpatient Attending: Chasidy Ivy
[2018-12-26] MEDS: Ondansetron INJ* 2 MG/ML VIAL IV PRN (16:28)
[2018-12-26] MEDS: QUEtiapine TAB* 25 MG PO SCH (22:19)
[2018-12-26] MEDS: Nicotine Patch Removal NOTE FOLLOW UP SCH (22:35)
[2018-12-26] MEDS: Melatonin 3 MG TAB PO PRN (23:19)
[2018-12-26] MEDS: hydrOXYzine HCL TAB* 25 MG PO PRN (23:19)
[2018-12-27] MEDS: HYDROmorphone INJ1* 1 MG/ML SYRINGE IV SLOW PU PRN ×3 (01:26→10:26)
[2018-12-27] MEDS ORDERED: oxyCODONE TAB* 5 MG TAB PO ONE (03:32)
[2018-12-27] MEDS: Lactated Ringers 1000 ML Bag* 1,000 ML IV SCH (04:38)
[2018-12-27] MEDS: Famotidine IV* 10 MG/ML 2 ML (20 mg) IV SLOW PU SCH (09:30)
[2018-12-27] MEDS: Gabapentin CAP(*) 300 MG PO SCH ×2 (09:31→13:40)
[2018-12-27] MEDS ORDERED: oxyCODONE TAB* 5 MG TAB PO PRN ×3 (10:24→14:42)
[2018-12-27] MEDS ORDERED: HYDROmorphone INJ1* 1 MG/ML SYRINGE IV SLOW PU PRN (10:25)
[2018-12-27] MEDS: Nicotine PATCH 21 MG/24 HR* PATCH TRANSDERM SCH (10:27)
--- NOTE | 2018-12-27 14:12 | PN ---
Subjective Date of Service: 12/27/18 Interval History: Patient seen and examined. No acute overnight events. States she is still having abdominal pain, no nausea/vomiting. No further complaints. Objective Active Medications: Albuterol (Ventolin Hfa Inhaler*) 2 puff INH Q4HR PRN PRN Reason: SHORTNESS OF BREATH Dextrose (D50w Syringe 50 Ml*) 25 gm IV PUSH ONCE PRN PRN Reason: FS < 60 Famotidine (Pepcid Iv*) 20 mg IV SLOW PU BID [facility] Last Admin: 12/27/18 09:30 Dose: 20 mg Gabapentin (Neurontin Cap(*)) 600 mg PO QPM [facility] Last Admin: 12/26/18 17:26 Dose: 600 mg Gabapentin (Neurontin Cap(*)) 900 mg PO TID [facility] Last Admin: 12/27/18 13:40 Dose: 900 mg Hydromorphone HCl (Dilaudid Inj1s*) 0.5 mg IV SLOW PU Q6H PRN PRN Reason: SEVERE PAIN Last Admin: 12/27/18 13:41 Dose: 0.5 mg Hydroxyzine HCl (Atarax Tab*) 25 mg PO BEDTIME PRN PRN Reason: ANXIETY Last Admin: 12/26/18 23:19 Dose: 25 mg Lactated Ringer's (Lactated Ringers 1000 Ml Bag*) 1,000 mls @ 75 mls/hr IV PER RATE [facility] Last Admin: 12/27/18 04:38 Dose: 75 mls/hr Melatonin (Melatonin) 3 mg PO QPM PRN PRN Reason: SLEEP Last Admin: 12/26/18 23:19 Dose: 3 mg Nicotine (Nicotine Patch 21 Mg/24 Hr*) 1 patch TRANSDERM DAILY [facility] Last Admin: 12/27/18 10:27 Dose: 1 patch Ondansetron HCl (Zofran Inj*) 4 mg IV Q6H PRN PRN Reason: NAUSEA Last Admin: 12/26/18 16:28 Dose: 4 mg Oxycodone HCl (Roxycodone Tab*) 5 mg PO Q4H PRN PRN Reason: PAIN Pharmacy Profile Note (Nicotine Patch Removal Note*) 1 note FOLLOW UP 2100 [facility] Last Admin: 12/26/18 22:35 Dose: 1 note Quetiapine Fumarate (Seroquel Tab*) 50 mg PO BEDTIME [facility] Last Admin: 12/26/18 22:19 Dose: 50 mg Vital Signs - 8 hr 12/27/18 12/27/18 12/27/18 09:00 09:31 09:34 Temperature 98.2 F Pulse Rate 77 Respiratory 16 16 16 Rate Blood Pressure 129/69 (mmHg) O2 Sat by Pulse 98 Oximetry 12/27/18 12/27/18 12/27/18 10:26 11:16 11:19 Temperature Pulse Rate Respiratory 16 16 16 Rate Blood Pressure (mmHg) O2 Sat by Pulse Oximetry 12/27/18 12/27/18 12/27/18 12:57 13:40 13:41 Temperature 98 F Pulse Rate 74 Respiratory 16 16 16 Rate Blood Pressure 151/96 (mmHg) O2 Sat by Pulse 97 Oximetry Oxygen Devices in Use Now: None Appearance: alert, NAD Eyes: No Scleral Icterus, PERRLA Ears/Nose/Mouth/Throat: NL Teeth, Lips, Gums, Mucous Membranes Moist Neck: NL Appearance and Movements; NL JVP, Trachea Midline Respiratory: Symmetrical Chest Expansion and Respiratory Effort, Clear to Auscultation Cardiovascular: NL Sounds; No Murmurs; No JVD, RRR Abdominal: - - diffusely tender, radiating to left upper abdomen. Neurological: Alert and Oriented x 3 Nutrition: - - NPO Result Diagrams: 12/25/18 09:04 12/26/18 07:20 Additional Lab and Data: Laboratory Results - last 24 hr 12/26/18 07:20 Sodium 139 Potassium 3.5 Chloride 111 Carbon Dioxide 22 Anion Gap 6 BUN < 2 L Creatinine 0.51 Est GFR ( Amer) 164.2 Est GFR (Non-Af Amer) 135.7 BUN/Creatinine Ratio 3.9 L Glucose 74 Calcium 8.3 L Microbiology and Other Data: Microbiology 12/22/18 18:35 Urine Culture - Final Urine Diagnostic Imaging: CT abdomen/pelvis: interstitial pancreatic inflammation, bilateral nephrolithiasis Assess/Plan/Problems-Billing Assessment: 38 year old woman with recurrent alcoholic pancreatitis - Patient Problems (1) Acute on chronic pancreatitis Code(s): K85.90 - ACUTE PANCREATITIS WITHOUT NECROSIS OR INFECTION, UNSP; K86.1 - OTHER CHRONIC PANCREATITIS SNOMED Code(s): 708344067 Comment: - Patient states she wants diet advanced but still having pain - Agreed to clears - Decreased IV dilaudid to 0.5mg q6h PRN and added oxycodone 10mg q6h PRN - highly recommend patient abstains from alcohol in the future (2) Anxiety Code(s): F41.9 - ANXIETY DISORDER, UNSPECIFIED SNOMED Code(s): 08601320 Comment: - Continue hydroxyzine PRN and Seroquel (3) DVT prophylaxis Code(s): GKG5414 - SNOMED Code(s): 624986358 Comment: - Low risk, ambulate Status and Disposition: Inpatient. Patient is unhappy with pain regimen and is asking to be discharged with narcotics. Explained with help of primary RN that I will not discharge on narcotics. Patient can either stay and be treated or sign out against medical advice.
[2018-12-27 15:53] VITALS: BP 131/69
--- NOTE | 2018-12-27 20:47 | DS ---
CC: Malina Blount NP * DISCHARGE SUMMARY: DATE OF ADMISSION: 12/23/18 DATE OF DISCHARGE AND LEAVING AGAINST MEDICAL ADVICE: 12/27/18 PRIMARY CARE PROVIDER: Malina Blount NP. MY ATTENDING FOR TODAY: Barbara Interiano MD.* (DICTATED BY ALIRIO KHALIL NP) HOSPITAL COURSE: Please refer to admitting H and P on 12/23/18, but in short, Ms. Carlton is a 38-year-old female with a known history of alcoholic pancreatitis, who has had several admissions for the same, who was admitted on 12/23/18 with an acute exacerbation of her alcoholic pancreatis. The patient states that she had increasing abdominal pain and some nausea. Pain was worsening with any oral intake. She states that she had 2 alcoholic drinks 2 days prior to the onset of her pain, but she doubts that this was the cause for her recurrent pancreatitis. She denies any history of alcohol abuse or withdrawal or detox treatments. She had some vomiting prior to admission. Her laboratory values at the time of admission showed lipase of 417. She had a CAT scan of the abdomen and pelvis with contrast that showed acute interstitial edematous pancreatitis. For these reasons, she was admitted, she was placed on pancreatic rest and kept n.p.o. with IV fluids and pain medication. The patient did request to have her diet advanced on 12/26/18. There was, per the records, some discussion about her IV pain medication and wanting to have her diet advanced. I believe the issue, per the notes, was that the patient wanted to continue on IV pain medication, but be allowed to eat. The patient was told that bowel and pancreatic rest are the treatments and that if she was opting to try and eat that she would not be staying on IV pain medication and she would be switched to orals. The patient was not happy with this treatment plan. She was placed back on n.p.o. status and given IV pain medication. However, today, when I saw the patient in the morning, she did express her wish to have her diet advanced again. I agreed to advance her to clears. We kept her on IV Dilaudid but at half dose q.6 hours and I agreed to give her some Percocet being that she was going to try to eat. The patient did state then she wanted to be discharged on narcotics. I stated to the patient at that time that I would not be discharging her on narcotics, that if she wished to stay and be treated she would have inpatient treatment and be discharged on no pain medication. I received a call at approximately 5:30 this evening that the patient had left against medical advice. I did not get to evaluate the patient or obtain a review of systems or physical exam at that time. Per the nurses' conversation with the patient which was told to me, the patient stated that " she would get what she needed on the street." I am not sure if that means alcohol or drugs, but in any case, the patient stated that she did not wish to stay for treatment and she left against medical advice. She did sign the AMA paperwork which I also signed; however, I did not get to domestic violence counselor the patient on her leaving AMA. Please refer to my progress note of earlier today for her review of systems and physical exam from earlier in the day; however, I did not see the patient before she left. DISCHARGE DIAGNOSIS: [id number] alcoholic pancreatitis. SECONDARY DIAGNOSES: History of alcohol abuse. Again, see progress note from earlier in the day for details on her physical exam, review of systems, and labs. The patient left against medical advice at approximately 5:30 this evening. Per the nurses' note, she was in stable condition and of sound mind and understood the ramifications of her leaving against against medical advice. The nursing staff explained to her she should return to the emergency department for any increase in pain or any decompensation. No changes were made in her medications. DISCHARGE MEDICATIONS: Her discharge medications are her home meds which are: 1. Melatonin 1 tab p.o. in the evening. 2. Gabapentin 900 mg 3 times a day and 600 mg in the evening. 3. B12 one tab four times a day. 4. Baclofen 10 mg 3 times a day. 5. Albuterol 2 puffs inhaled 4 hours as needed. 6. Atarax 25 mg at bedtime. 7. Zantac 150 mg p.o. b.i.d. 8. Seroquel 50 mg at bedtime. 9. Omeprazole 40 mg at bedtime. Again, the patient left against medical advice apparently per nursing notes in stable condition. TIME SPENT: 35 minutes. ALIRIO KHALIL, DIRECTOR OF CODING [id number]/[facility] #: [id number] LILI
== END 2018-12-27 17:05 | disposition left against medical advice (07) | DRG 282 ==
LOC: ED 17:40 → MED 12-23 02:27
PROVIDERS: ADMIT Internal Medicine; ATTEND Internal Medicine
DX: K85.20 Alcohol induced acute pancreatitis without necrosis or infection (principal); K86.0 Alcohol-induced chronic pancreatitis; M54.5 Low back pain; F17.210 Nicotine dependence, cigarettes, uncomplicated; F10.10 Alcohol abuse, uncomplicated; Y90.0 Blood alcohol level of less than 20 mg/100 ml; F41.9 Anxiety disorder, unspecified; Z79.899 Other long term (current) drug therapy; Z79.51 Long term (current) use of inhaled steroids; Z80.42 Family history of malignant neoplasm of prostate
CPT/HCPCS: 36415; 74177; 80048; 80053; 80320; 81003; 81015; 82150; 83605; 83690; 84702; 85025; 86140; 87086; 99284; A9270-GY; G0480; J1170; J2405; Q9967

== ENCOUNTER 2020-02-24 14:08 | Inpatient (IN) ==
[2020-02-24] MEDS ORDERED: Albuterol HFA INHALER 8 gm MDI INH ONE (16:22)
[2020-02-24 17:18] LABS: ABS Basophils 0.1 10^3/ul (0-0.2); ABS Eosinophils 0.1 10^3/ul (0-0.6); ABS Lymphocytes 1.4 10^3/ul (1.0-4.8); ABS Monocytes 0.5 10^3/ul (0-0.8); ABS Neutrophils 13.4 10^3/ul (1.5-7.7); Eosinophil % 0.8 %; Hematocrit 33 % (35-47); Hemoglobin 10.7 g/dL (12.0-16.0); Lymphocyte % 8.9 %; Mean Corpuscular HGB Conc 32 g/dL (31-36); Mean Corpuscular Hemoglobin 25 pg (27-31); Mean Corpuscular Volume 79 fL (80-97); Mean Platelet Volume 7.9 fL (7.4-10.4); Platelet Count 288 10^3/uL (150-450); Red Blood Count 4.24 10^6 /uL (3.70-4.87); Red Cell Distribution Width 20 % (10-15); White Blood Count 15.5 10^3/uL (3.5-10.8)
[2020-02-24 17:26] LABS: INR 1.18 (0.82-1.09)
[2020-02-24 17:39] LABS: ALT 11 U/L (7-52); AST 34 U/L (13-39); Albumin 3.7 g/dL (3.2-5.2); Albumin/Globulin Ratio 1.1 (1-3); Alkaline Phosphatase 127 U/L (34-104); Anion Gap 7 mmol/L (2-11); BUN/Creatinine Ratio 11.8 (8-20); Blood Urea Nitrogen 11 mg/dL (6-24); C Reactive Protein 227.95 mg/L (<8.01); CO2 Carbon Dioxide 24 mmol/L (22-32); Chloride 108 mmol/L (101-111); Creatine Kinase 26 U/L (10-223); EGFR African American 81.6 (>60); EGFR Non-African American 67.5 (>60); Globulin 3.3 g/dL (2-4); Glucose 97 mg/dL (70-100); Potassium 3.6 mmol/L (3.5-5.0); Sodium 139 mmol/L (135-145)
[2020-02-24 17:41] LABS: HCG Pregnancy < 0.60 mIU/mL
[2020-02-24] MEDS ORDERED: Morphine 4 MG/ML VIAL (1 ml) IV ONE (17:43)
[2020-02-24] MEDS ORDERED: NS 0.9% 1000 ml BAG 2,000 ML IV ONE (17:46)
[2020-02-24] MEDS ORDERED: Iohexol 350 (CONTRAST) 500 ML MDV IV ONE (17:50)
[2020-02-24 18:45] LABS: LDH 395 U/L (140-271)
[2020-02-24] MEDS ORDERED: Amoxicillin/Clavul 875/125 TAB (Augmentin 875 tab) PO ONE (18:55)
[2020-02-24] MEDS ORDERED: Al Hydrox/Mg Hydrox/Simet LIQ 30 ML UDC PO PRN (20:49)
[2020-02-24] MEDS ORDERED: Albuterol/Ipratropium NEB.SOL (2.5/0.5 MG) 3 ML NEB.SOLN INH PRN (20:49)
[2020-02-24] MEDS ORDERED: NS 0.9% 1000 ml BAG 1,000 ML IV SCH (21:00)
[2020-02-24] MEDS ORDERED: Piperacillin/Tazobac ADVAN 3.375 GM in NS 0.9% 100 ml BAG 100 ML IVPB ONE (21:10)
[2020-02-24] MEDS ORDERED: Zosyn per Pharmacy NOTE FOLLOW UP SCH (22:00)
[2020-02-24] MEDS: Ondansetron ODT 4 mg TAB 4 MG TAB PO PRN (22:02)
[2020-02-24] MEDS ORDERED: guaiFENesin 100 mg/5 ml LIQ unit dose cup PO PRN (22:19)
[2020-02-24] MEDS ORDERED: Albuterol HFA INHALER 8 gm MDI INH PRN (22:39)
[2020-02-25] MEDS: Fluticasone NASAL SPRAY 50MCG 16 gm SPRAY BTL INTRANASAL SCH ×3 (00:45→11:03)
[2020-02-25 00:53] LABS: ABS Eosinophils 0.2 10^3/ul (0-0.6); ABS Lymphocytes 1.5 10^3/ul (1.0-4.8); ABS Monocytes 0.7 10^3/ul (0-0.8); ABS Neutrophils 11.4 10^3/ul (1.5-7.7); Eosinophil % 1.4 %; Hematocrit 32 % (35-47); Hemoglobin 10.1 g/dL (12.0-16.0); Lymphocyte % 11.1 %; Mean Corpuscular HGB Conc 32 g/dL (31-36); Mean Corpuscular Hemoglobin 26 pg (27-31); Mean Corpuscular Volume 80 fL (80-97); Mean Platelet Volume 8.3 fL (7.4-10.4); Nucleated Red Blood Cells % 0.1; Platelet Count 274 10^3/uL (150-450); Red Blood Count 3.95 10^6 /uL (3.70-4.87); Red Cell Distribution Width 20 % (10-15); White Blood Count 13.9 10^3/uL (3.5-10.8)
[2020-02-25 01:02] LABS: Calcium 7.8 mg/dL (8.6-10.3); Potassium 3.8 mmol/L (3.5-5.0)
[2020-02-25 01:32] LABS: BUN/Creatinine Ratio 10.8 (8-20); EGFR African American 93.1 (>60); EGFR Non-African American 76.9 (>60)
[2020-02-25] MEDS: ZOSYN 3.375 GM Q8H per EXTENDED INFUSION IV SCH ×3 (05:56→21:51)
[2020-02-26] MEDS: ZOSYN 3.375 GM Q8H per EXTENDED INFUSION IV SCH ×3 (05:33→22:16)
[2020-02-26 06:55] LABS: EGFR African American 89.4 (>60); EGFR Non-African American 73.8 (>60); Potassium 2.9 mmol/L (3.5-5.0)
[2020-02-26 07:10] LABS: ABS Eosinophils 0.2 10^3/ul (0-0.6); ABS Monocytes 0.7 10^3/ul (0-0.8); ABS Neutrophils 8.3 10^3/ul (1.5-7.7); Eosinophil % 1.9 %; Hematocrit 29 % (35-47); Hemoglobin 9.8 g/dL (12.0-16.0); Lymphocyte % 9.8 %; Mean Corpuscular HGB Conc 34 g/dL (31-36); Mean Corpuscular Hemoglobin 26 pg (27-31); Mean Corpuscular Volume 79 fL (80-97); Mean Platelet Volume 8.1 fL (7.4-10.4); Platelet Count 293 10^3/uL (150-450); Red Cell Distribution Width 20 % (10-15); White Blood Count 10.3 10^3/uL (3.5-10.8)
[2020-02-26] MEDS ORDERED: Potassium Chloride LIQUID 20 MEQ/15 ML LIQUID PO ONE (09:46)
[2020-02-26 10:00] LABS: Magnesium 1.3 mg/dL (1.9-2.7); Phosphorus 2.8 mg/dL (2.5-5.0)
[2020-02-26] MEDS: Fluticasone NASAL SPRAY 50MCG 16 gm SPRAY BTL INTRANASAL SCH (13:29)
[2020-02-26] MEDS ORDERED: Magnesium Sulf 4 GM/100 ML IV 4,000 MG/100 ML BAG IVPB ONE (13:32)
[2020-02-26] MEDS ORDERED: Potassium Chlor 20 meq TAB.ER PO ONE (16:00)
[2020-02-26] MEDS: Ondansetron ODT 4 mg TAB 4 MG TAB PO PRN (22:21)
[2020-02-27] MEDS: ZOSYN 3.375 GM Q8H per EXTENDED INFUSION IV SCH ×2 (05:36→14:46)
[2020-02-27 06:33] LABS: ABS Eosinophils 0.3 10^3/ul (0-0.6); ABS Monocytes 0.6 10^3/ul (0-0.8); ABS Neutrophils 5.3 10^3/ul (1.5-7.7); Eosinophil % 4.1 %; Hematocrit 30 % (35-47); Hemoglobin 9.8 g/dL (12.0-16.0); Lymphocyte % 14.1 %; Mean Corpuscular HGB Conc 33 g/dL (31-36); Mean Corpuscular Hemoglobin 26 pg (27-31); Mean Corpuscular Volume 79 fL (80-97); Mean Platelet Volume 7.5 fL (7.4-10.4); Platelet Count 316 10^3/uL (150-450); Red Blood Count 3.77 10^6 /uL (3.70-4.87); Red Cell Distribution Width 21 % (10-15); White Blood Count 7.3 10^3/uL (3.5-10.8)
[2020-02-27 06:57] LABS: BUN/Creatinine Ratio 5.5 (8-20); Calcium 8.1 mg/dL (8.6-10.3); EGFR Non-African American 89.2 (>60); Magnesium 2.1 mg/dL (1.9-2.7); Phosphorus 2.8 mg/dL (2.5-5.0); Potassium 3.2 mmol/L (3.5-5.0)
[2020-02-27] MEDS: Fluticasone NASAL SPRAY 50MCG 16 gm SPRAY BTL INTRANASAL SCH (07:57)
[2020-02-28 07:46] VITALS: BP 150/78
[2020-02-28] MEDS: Fluticasone NASAL SPRAY 50MCG 16 gm SPRAY BTL INTRANASAL SCH (08:57)
[2020-02-28 10:09] LABS: ABS Lymphocytes 1.2 10^3/ul (1.0-4.8); ABS Monocytes 0.6 10^3/ul (0-0.8); ABS Neutrophils 4.6 10^3/ul (1.5-7.7); Eosinophil % 0.1 %; Hematocrit 33 % (35-47); Hemoglobin 10.7 g/dL (12.0-16.0); Lymphocyte % 18.1 %; Mean Corpuscular HGB Conc 33 g/dL (31-36); Mean Corpuscular Hemoglobin 26 pg (27-31); Mean Corpuscular Volume 80 fL (80-97); Mean Platelet Volume 7.8 fL (7.4-10.4); Nucleated Red Blood Cells % 0.1; Platelet Count 385 10^3/uL (150-450); Red Blood Count 4.11 10^6 /uL (3.70-4.87); Red Cell Distribution Width 20 % (10-15); White Blood Count 6.5 10^3/uL (3.5-10.8)
[2020-02-28 10:25] LABS: BUN/Creatinine Ratio 13.5 (8-20); Calcium 9.1 mg/dL (8.6-10.3); EGFR African American 106.3 (>60); EGFR Non-African American 87.8 (>60); Magnesium 1.7 mg/dL (1.9-2.7); Potassium 3.6 mmol/L (3.5-5.0)
[2020-02-29 21:25] LABS: Mycoplasma pneumoniae IgG Ab Positive (Negative); Mycoplasma pneumoniae IgM Ab Negative (Negative)
== END 2020-02-28 16:20 | disposition home or self-care (01) | DRG 139 ==
LOC: ED 14:08 → MED 20:49
PROVIDERS: ADMIT Internal Medicine; ATTEND Internal Medicine

== ENCOUNTER 2020-03-04 09:15 | Inpatient (IN) ==
[2020-03-04] MEDS ORDERED: Metoclopramide 5 MG/ML VIAL (10 mg) IV ONE (09:38)
[2020-03-04] MEDS ORDERED: NS 0.9% 1000 ml BAG 1,000 ML IV ONE ×2 (09:38→11:38)
[2020-03-04] MEDS ORDERED: HYDROmorphone 1 MG/1 ML SYRINGE IV ONE ×2 (09:38→12:11)
[2020-03-04 10:15] LABS: ABS Basophils 0.1 10^3/ul (0-0.2); ABS Lymphocytes 2.3 10^3/ul (1.0-4.8); ABS Monocytes 1.5 10^3/ul (0-0.8); ABS Neutrophils 19.6 10^3/ul (1.5-7.7); Hematocrit 37 % (35-47); Hemoglobin 11.9 g/dL (12.0-16.0); Mean Corpuscular HGB Conc 33 g/dL (31-36); Mean Corpuscular Hemoglobin 26 pg (27-31); Mean Corpuscular Volume 78 fL (80-97); Mean Platelet Volume 7.8 fL (7.4-10.4); Nucleated Red Blood Cells % 0.1; Platelet Count 723 10^3/uL (150-450); Red Blood Count 4.67 10^6 /uL (3.70-4.87); Red Cell Distribution Width 21 % (10-15); White Blood Count 23.5 10^3/uL (3.5-10.8)
[2020-03-04 10:45] LABS: ALT 26 U/L (7-52); Albumin 3.8 g/dL (3.2-5.2); Albumin/Globulin Ratio 1.2 (1-3); Alkaline Phosphatase 91 U/L (34-104); BUN/Creatinine Ratio 29.2 (8-20); Blood Urea Nitrogen 26 mg/dL (6-24); C Reactive Protein 9.55 mg/L (<8.01); CO2 Carbon Dioxide 25 mmol/L (22-32); Calcium 9.5 mg/dL (8.6-10.3); Chloride 104 mmol/L (101-111); EGFR African American 85.9 (>60); Globulin 3.2 g/dL (2-4); Glucose 103 mg/dL (70-100); Sodium 138 mmol/L (135-145)
[2020-03-04 10:50] LABS: HCG Pregnancy < 0.60 mIU/mL
[2020-03-04 10:59] LABS: Lipase 872 U/L (11.0-82.0)
[2020-03-04 11:33] LABS: Anion Gap 9 mmol/L (2-11)
[2020-03-04 14:44] LABS: Urine Appearance Cloudy; Urine Bilirubin Negative (Negative); Urine Blood 1+ (Negative); Urine Color Yellow; Urine Glucose Negative (Negative); Urine Ketones Negative (Negative); Urine Nitrite Negative (Negative); Urine Protein Negative (Negative); Urine Specific Gravity 1.015 (1.010-1.030); Urine Urobilinogen Negative (Negative)
[2020-03-04 14:50] LABS: Urine Bacteria Absent (Absent); Urine Red Blood Cell 2+(6-10/hpf) (Absent); Urine Squamous Epithelial Cell Present (Absent); Urine White Blood Cell 1+(6-10/hpf) (Absent)
[2020-03-04 15:00] LABS: Potassium Redraw 2.9 mmol/L (3.5-5.0)
[2020-03-04] MEDS ORDERED: HYDROmorphone 1 MG/1 ML SYRINGE IV SLOW PU ONE (15:10)
[2020-03-04] MEDS ORDERED: Pantoprazole VIAL 40 MG VIAL IV SCH (16:00)
[2020-03-04] MEDS ORDERED: Iohexol 300 (CONTRAST) 10 ML SDV IV ONE (16:29)
[2020-03-04] MEDS: NS 0.9% 1000 ml BAG 1,000 ML IV SCH (18:36)
[2020-03-04] MEDS: DOXYcycline 100 MG in NS 0.9% 250 ml 250 ML IVPB SCH (18:36)
[2020-03-04] MEDS: HYDROmorphone 0.5 MG/0.5 ML SYRINGE IV SLOW PU PRN ×2 (19:05→23:50)
[2020-03-04] MEDS ORDERED: guaiFENesin 100 mg/5 ml LIQ unit dose cup PO PRN (20:46)
[2020-03-04] MEDS ORDERED: Albuterol HFA INHALER 8 gm MDI INH PRN (20:46)
[2020-03-04] MEDS ORDERED: Ondansetron ODT 4 mg TAB 4 MG TAB PO PRN (20:46)
[2020-03-04] MEDS: Pantoprazole VIAL 40 MG VIAL IV SCH (21:33)
[2020-03-04] MEDS: Mometasone/Formoter 100/5 MDI INH SCH (22:38)
[2020-03-04] MEDS: KCL 20 MEQ/100 ML IVPREMIX 20 MEQ/100 ML BAG IV SCH ×2 (23:13→23:14)
[2020-03-04] MEDS: Potassium Chlor 20 meq TAB.ER PO SCH (23:33)
[2020-03-05] MEDS ORDERED: HYDROmorphone 0.5 MG/0.5 ML SYRINGE IV SLOW PU ONE (02:06)
[2020-03-05] MEDS: Potassium Chlor 20 meq TAB.ER PO SCH (02:31)
[2020-03-05] MEDS: HYDROmorphone 0.5 MG/0.5 ML SYRINGE IV SLOW PU PRN ×4 (04:20→15:23)
[2020-03-05] MEDS: DOXYcycline 100 MG in NS 0.9% 250 ml 250 ML IVPB SCH ×2 (04:27→15:29)
[2020-03-05] MEDS: cefTRIAXone 1 gm/50 mL NS BAG 1 GM/50 ML BAG IVPB SCH (05:56)
[2020-03-05] MEDS ORDERED: cefTRIAXone 1 gm/50 mL NS BAG 1 GM/50 ML BAG IVPB SCH (06:00)
[2020-03-05] MEDS ORDERED: methylPREDNISolone SOD 40 mg/ml 1 ml VIAL IV ONE (06:00)
[2020-03-05] MEDS ORDERED: methylPREDNISolone SOD 40 mg/ml 1 ml VIAL IV SCH (06:00)
[2020-03-05] MEDS: Mometasone/Formoter 100/5 MDI INH SCH ×2 (07:27→19:39)
[2020-03-05] MEDS: Pantoprazole VIAL 40 MG VIAL IV SCH ×2 (08:14→22:03)
[2020-03-05] MEDS: Fluticasone NASAL SPRAY 50MCG 16 gm SPRAY BTL INTRANASAL SCH (08:19)
[2020-03-05 09:50] LABS: ABS Basophils 0.1 10^3/ul (0-0.2); ABS Eosinophils 0.1 10^3/ul (0-0.6); ABS Monocytes 1.4 10^3/ul (0-0.8); ABS Neutrophils 15.6 10^3/ul (1.5-7.7); Eosinophil % 0.5 %; Hematocrit 34 % (35-47); Hemoglobin 10.9 g/dL (12.0-16.0); Lymphocyte % 10.6 %; Mean Corpuscular HGB Conc 32 g/dL (31-36); Mean Corpuscular Hemoglobin 25 pg (27-31); Mean Corpuscular Volume 78 fL (80-97); Mean Platelet Volume 7.8 fL (7.4-10.4); Platelet Count 578 10^3/uL (150-450); Red Blood Count 4.31 10^6 /uL (3.70-4.87); Red Cell Distribution Width 20 % (10-15); White Blood Count 19.2 10^3/uL (3.5-10.8)
[2020-03-05 10:06] LABS: Albumin 3.3 g/dL (3.2-5.2); Albumin/Globulin Ratio 1.4 (1-3); BUN/Creatinine Ratio 21.2 (8-20); Calcium 8.3 mg/dL (8.6-10.3); EGFR African American 121.3 (>60); EGFR Non-African American 100.2 (>60); Globulin 2.4 g/dL (2-4); Potassium 4.4 mmol/L (3.5-5.0); Total Bilirubin 0.3 mg/dL (0.2-1.0); Total Protein 5.7 g/dL (6.4-8.9)
[2020-03-05] MEDS: NS 0.9% 1000 ml BAG 1,000 ML IV SCH ×2 (11:40→23:12)
[2020-03-05] MEDS: HYDROmorphone 1 MG/1 ML SYRINGE IV SLOW PU PRN ×2 (19:31→23:31)
[2020-03-06] MEDS: HYDROmorphone 1 MG/1 ML SYRINGE IV SLOW PU PRN ×2 (03:38→07:52)
[2020-03-06] MEDS: DOXYcycline 100 MG in NS 0.9% 250 ml 250 ML IVPB SCH (03:44)
[2020-03-06] MEDS: cefTRIAXone 1 gm/50 mL NS BAG 1 GM/50 ML BAG IVPB SCH (05:18)
[2020-03-06 06:44] LABS: ABS Basophils 0.1 10^3/ul (0-0.2); ABS Eosinophils 0.3 10^3/ul (0-0.6); ABS Lymphocytes 2.7 10^3/ul (1.0-4.8); ABS Monocytes 0.9 10^3/ul (0-0.8); ABS Neutrophils 9.5 10^3/ul (1.5-7.7); Eosinophil % 2.1 %; Hematocrit 33 % (35-47); Hemoglobin 10.8 g/dL (12.0-16.0); Lymphocyte % 19.9 %; Mean Corpuscular HGB Conc 33 g/dL (31-36); Mean Corpuscular Hemoglobin 26 pg (27-31); Mean Corpuscular Volume 78 fL (80-97); Mean Platelet Volume 8.3 fL (7.4-10.4); Platelet Count 475 10^3/uL (150-450); Red Blood Count 4.21 10^6 /uL (3.70-4.87); Red Cell Distribution Width 21 % (10-15); White Blood Count 13.5 10^3/uL (3.5-10.8)
[2020-03-06 07:06] LABS: BUN/Creatinine Ratio 12.3 (8-20); EGFR Non-African American 118.7 (>60); Potassium 3.4 mmol/L (3.5-5.0)
[2020-03-06 07:07] LABS: Calcium 8.5 mg/dL (8.6-10.3); EGFR African American 143.6 (>60)
[2020-03-06] MEDS: Pantoprazole VIAL 40 MG VIAL IV SCH ×2 (07:55→20:41)
[2020-03-06] MEDS: Mometasone/Formoter 100/5 MDI INH SCH ×2 (08:26→19:50)
[2020-03-06] MEDS ORDERED: methylPREDNISolone SOD 40 mg/ml 1 ml VIAL IV SCH (09:00)
[2020-03-06] MEDS: Fluticasone NASAL SPRAY 50MCG 16 gm SPRAY BTL INTRANASAL SCH (09:19)
[2020-03-06] MEDS: NS 0.9% 1000 ml BAG 1,000 ML IV SCH ×3 (10:21→19:30)
[2020-03-06] MEDS ORDERED: HYDROmorphone 0.5 MG/0.5 ML SYRINGE IV SLOW PU ONE (13:00)
[2020-03-06] MEDS ORDERED: Magnesium Hydroxide LIQ 30 ML UDC PO PRN (16:34)
[2020-03-06] MEDS ORDERED: Senna TAB 8.6 mg TAB PO PRN (16:34)
[2020-03-06] MEDS ORDERED: NS 0.9% 1000 ml BAG 1,000 ML IV SCH (16:45)
[2020-03-06] MEDS: Magnesium Hydroxide LIQ 30 ML UDC PO SCH (17:51)
[2020-03-06] MEDS ORDERED: Potassium Chlor 20 meq TAB.ER PO ONE (18:17)
[2020-03-07] MEDS: Magnesium Hydroxide LIQ 30 ML UDC PO SCH ×3 (06:22→16:53)
[2020-03-07] MEDS: Mometasone/Formoter 100/5 MDI INH SCH ×2 (07:56→19:19)
[2020-03-07] MEDS: Fluticasone NASAL SPRAY 50MCG 16 gm SPRAY BTL INTRANASAL SCH (08:02)
[2020-03-07] MEDS ORDERED: Influenza VAC *QUAD* 2020-21* 0.5 ML SYRINGE IM ONE (09:00)
[2020-03-07] MEDS: Pantoprazole VIAL 40 MG VIAL IV SCH ×2 (10:14→20:53)
[2020-03-07 11:24] LABS: ABS Basophils 0.1 10^3/ul (0-0.2); ABS Eosinophils 0.4 10^3/ul (0-0.6); ABS Lymphocytes 1.8 10^3/ul (1.0-4.8); ABS Monocytes 0.8 10^3/ul (0-0.8); ABS Neutrophils 8.8 10^3/ul (1.5-7.7); Hematocrit 32 % (35-47); Hemoglobin 10.3 g/dL (12.0-16.0); Lymphocyte % 15.4 %; Mean Corpuscular HGB Conc 32 g/dL (31-36); Mean Corpuscular Hemoglobin 25 pg (27-31); Mean Corpuscular Volume 78 fL (80-97); Mean Platelet Volume 7.7 fL (7.4-10.4); Platelet Count 443 10^3/uL (150-450); Red Blood Count 4.04 10^6 /uL (3.70-4.87); Red Cell Distribution Width 21 % (10-15); White Blood Count 11.9 10^3/uL (3.5-10.8)
[2020-03-07 11:36] LABS: BUN/Creatinine Ratio 10.2 (8-20); Calcium 8.8 mg/dL (8.6-10.3); EGFR Non-African American 114.1 (>60); Potassium 3.4 mmol/L (3.5-5.0)
[2020-03-07] MEDS ORDERED: Potassium Chlor 20 meq TAB.ER PO ONE (11:56)
[2020-03-07] MEDS: NS 0.9% 1000 ml BAG 1,000 ML IV SCH ×2 (14:13→20:57)
[2020-03-07] MEDS: Polyethylene Glycol 3350 17 GM PACKET PO PRN (16:26)
[2020-03-07] MEDS ORDERED: Sodium Phosphate ADULT ENEMA 133 ML BTL PR ONE (21:47)
[2020-03-08] MEDS: NS 0.9% 1000 ml BAG 1,000 ML IV SCH ×2 (02:47→08:42)
[2020-03-08] MEDS: Magnesium Hydroxide LIQ 30 ML UDC PO SCH (05:47)
[2020-03-08] MEDS: Mometasone/Formoter 100/5 MDI INH SCH (07:29)
[2020-03-08] MEDS: Pantoprazole VIAL 40 MG VIAL IV SCH (08:43)
[2020-03-08] MEDS: Fluticasone NASAL SPRAY 50MCG 16 gm SPRAY BTL INTRANASAL SCH (08:44)
[2020-03-08] MEDS ORDERED: Mineral Oil ENEMA 118 ML/BOTTLE BOTTLE PR ONE (09:30)
[2020-03-08] MEDS: Polyethylene Glycol 3350 17 GM PACKET PO PRN (10:52)
[2020-03-08 12:03] VITALS: BP 139/90
[2020-03-09] MEDS ORDERED: methylPREDNISolone SOD 40 mg/ml 1 ml VIAL IV SCH (09:00)
== END 2020-03-08 15:10 | disposition home or self-care (01) | DRG 282 ==
LOC: MED 09:15 → ED 09:15
PROVIDERS: ADMIT Nurse Practitioner Family; ATTEND Internal Medicine

== ENCOUNTER 2020-04-19 03:16 | Inpatient (IN) ==
[2020-04-19] MEDS ORDERED: diPHENhydraMINE IV 50 MG/ML 1 ml VIAL (BENADRYL) IM ONE (03:20)
[2020-04-19] MEDS ORDERED: Haloperidol 5 mg/ml SDV IV/IM 5 MG/ML AMP IM ONE (03:20)
[2020-04-19] MEDS ORDERED: LORazepam 2 mg VIAL 1 ml IM ONE (03:20)
[2020-04-19 05:22] LABS: Albumin 3.8 g/dL (3.2-5.2); Anion Gap 14 mmol/L (2-11); CO2 Carbon Dioxide 21 mmol/L (22-32); Calcium 9.1 mg/dL (8.6-10.3); Chloride 109 mmol/L (101-111); Potassium 3.9 mmol/L (3.5-5.0); Sodium 144 mmol/L (135-145)
[2020-04-19 05:26] LABS: ABS Basophils 0.1 10^3/ul (0-0.2); ABS Lymphocytes 1.9 10^3/ul (1.0-4.8); ABS Monocytes 1.6 10^3/ul (0-0.8); ABS Neutrophils 20.7 10^3/ul (1.5-7.7); Hematocrit 36 % (35-47); Hemoglobin 11.6 g/dL (12.0-16.0); Lymphocyte % 7.8 %; Mean Corpuscular HGB Conc 32 g/dL (31-36); Mean Corpuscular Hemoglobin 26 pg (27-31); Mean Corpuscular Volume 81 fL (80-97); Platelet Count 317 10^3/uL (150-450); Red Cell Distribution Width 23 % (10-15); White Blood Count 24.2 10^3/uL (3.5-10.8)
[2020-04-19 05:29] LABS: ALT 29 U/L (7-52); AST 46 U/L (13-39); Albumin/Globulin Ratio 1.2 (1-3); Alkaline Phosphatase 148 U/L (34-104); BUN/Creatinine Ratio 10.8 (8-20); Blood Urea Nitrogen 18 mg/dL (6-24); Creatine Kinase 408 U/L (10-223); EGFR African American 41.5 (>60); EGFR Non-African American 34.3 (>60); Globulin 3.3 g/dL (2-4); Glucose 139 mg/dL (70-100); Lipase 16 U/L (11.0-82.0); Total Protein 7.1 g/dL (6.4-8.9)
[2020-04-19 05:50] LABS: Acetaminophen < 15 mcg/mL; Alcohol, S < 10 mg/dL (<10); Salicylate < 2.50 mg/dL (<30)
[2020-04-19 07:02] LABS: INR 1.11 (0.82-1.09)
[2020-04-19] MEDS ORDERED: levETIRAcetam 1000MG IVPREMIX 1,000 MG/100 ML BAG IVPB ONE (07:11)
[2020-04-19] MEDS ORDERED: LORazepam 2 mg VIAL 1 ml IV PUSH ONE (07:25)
[2020-04-19] MEDS ORDERED: Lorazepam PYXIS KEY ONE (07:25)
[2020-04-19 07:28] LABS: HCG Pregnancy < 0.60 mIU/mL
[2020-04-19] MEDS ORDERED: Lorazepam PYXIS KEY PRN (07:40)
[2020-04-19] MEDS ORDERED: Haloperidol 5 mg/ml SDV IV/IM 5 MG/ML AMP IV SLOW PU ONE (07:41)
[2020-04-19 08:02] LABS: Urine Appearance Turbid; Urine Bilirubin Negative (Negative); Urine Blood 1+ (Negative); Urine Color Amber; Urine Glucose Negative (Negative); Urine Ketones Trace (Negative); Urine Nitrite Negative (Negative); Urine Protein 2+(100 mg/dL) (Negative); Urine Specific Gravity 1.015 (1.010-1.030); Urine Urobilinogen Negative (Negative)
[2020-04-19 08:08] LABS: Urine Benzodiazepine Screen None Detected (None Detect); Urine Buprenorphine Screen None Detected (None Detect); Urine Cannabinoids Screen None Detected (None Detect); Urine Fentanyl Screen None Detected (None Detect); Urine Hydrocodone Screen None Detected (None Detect); Urine Opiates Screen None Detected (None Detect)
[2020-04-19] MEDS ORDERED: NS 0.9% IV ONE (08:45)
[2020-04-19 08:56] LABS: Urine Bacteria Absent (Absent); Urine Red Blood Cell 2+(6-10/hpf) (Absent); Urine White Blood Cell 3+(>20/hpf) (Absent)
[2020-04-19] MEDS ORDERED: Dexmedetomidine 1,000 MCG in NS 0.9% 250 ml 240 ML IV SCH (09:00)
[2020-04-19 10:59] LABS: C Reactive Protein 93.53 mg/L (<8.01)
[2020-04-19] MEDS ORDERED: NS 0.9% 1000 ml BAG 1,000 ML IV SCH (15:30)
[2020-04-19] MEDS ORDERED: Ondansetron 4 mg VIAL 2 MG/ML 2 ml VIAL IV PRN (16:33)
[2020-04-19] MEDS ORDERED: Thiamine 100 MG/ML 2 ml VIAL (200 mg) IV ONE (17:30)
[2020-04-19] MEDS ORDERED: Enoxaparin 40 MG/0.4 ML SYR ONE (17:53)
[2020-04-19] MEDS: Enoxaparin 40 MG/0.4 ML SYR SUBCUT SCH (17:55)
[2020-04-19] MEDS: cefTRIAXone 2 GM ADDV.VIAL 2 GM in NS 0.9% 100 ml BAG 100 ML IV SCH (17:55)
[2020-04-19] MEDS ORDERED: Thiamine 100 MG/ML 2 ml VIAL (200 mg) IV SCH (18:00)
[2020-04-19 20:07] LABS: Creatine Kinase 473 U/L (10-223)
[2020-04-19 20:48] LABS: Glucose 93 mg/dL (70-100)
[2020-04-19] MEDS: DOXYcycline 100 MG in NS 0.9% 250 ml 250 ML IVPB SCH (21:23)
[2020-04-20] MEDS: DOXYcycline 100 MG in NS 0.9% 250 ml 250 ML IVPB SCH (09:19)
[2020-04-20] MEDS ORDERED: LORazepam 2 mg VIAL 1 ml IV PUSH SCH (11:00)
[2020-04-20 16:06] LABS: ABS Basophils 0.1 10^3/ul (0-0.2); ABS Eosinophils 0.1 10^3/ul (0-0.6); ABS Lymphocytes 2.3 10^3/ul (1.0-4.8); ABS Monocytes 0.8 10^3/ul (0-0.8); ABS Neutrophils 11.3 10^3/ul (1.5-7.7); Eosinophil % 0.8 %; Hematocrit 32 % (35-47); Mean Corpuscular HGB Conc 32 g/dL (31-36); Mean Corpuscular Hemoglobin 26 pg (27-31); Mean Corpuscular Volume 84 fL (80-97); Mean Platelet Volume 8.5 fL (7.4-10.4); Platelet Count 264 10^3/uL (150-450); Red Cell Distribution Width 22 % (10-15); White Blood Count 14.5 10^3/uL (3.5-10.8)
[2020-04-20 16:42] LABS: Albumin 3.7 g/dL (3.2-5.2); Albumin/Globulin Ratio 1.3 (1-3); BUN/Creatinine Ratio 15.7 (8-20); C Reactive Protein 98.15 mg/L (<8.01); Calcium 8.4 mg/dL (8.6-10.3); EGFR African American 68.7 (>60); EGFR Non-African American 56.8 (>60); Globulin 2.9 g/dL (2-4); Magnesium 1.8 mg/dL (1.9-2.7); Potassium 3.3 mmol/L (3.5-5.0); Total Bilirubin 0.4 mg/dL (0.2-1.0); Total Protein 6.6 g/dL (6.4-8.9)
[2020-04-20] MEDS: cefTRIAXone 2 GM ADDV.VIAL 2 GM in NS 0.9% 100 ml BAG 100 ML IV SCH (16:54)
[2020-04-20] MEDS: Enoxaparin 40 MG/0.4 ML SYR SUBCUT SCH (17:04)
[2020-04-20 17:44] VITALS: BP 176/119
[2020-04-21] MEDS ORDERED: Multivitamins/Minerals TAB PO SCH (09:00)
== END 2020-04-20 19:00 | disposition left against medical advice (07) | DRG 720 ==
LOC: ICU 03:16 → ED 03:16 → OBSVTOIN 06:17 → ICU 10:17
PROVIDERS: ADMIT Internal Medicine; ATTEND Internal Medicine Critical Care Medicine

== ENCOUNTER 2020-05-04 16:39 | Inpatient (IN) ==
[2020-05-04 19:14] LABS: Urine Appearance Cloudy; Urine Bilirubin Negative (Negative); Urine Blood 2+ (Negative); Urine Color Yellow; Urine Glucose Negative (Negative); Urine Ketones Negative (Negative); Urine Nitrite Negative (Negative); Urine Protein 1+(30 mg/dL) (Negative); Urine Specific Gravity 1.017 (1.010-1.030); Urine Urobilinogen Negative (Negative)
[2020-05-04 19:26] LABS: Urine Bacteria Absent (Absent); Urine Red Blood Cell 3+(>10/hpf) (Absent); Urine Squamous Epithelial Cell Present (Absent); Urine White Blood Cell 1+(6-10/hpf) (Absent)
[2020-05-04 19:42] LABS: ABS Basophils 0.1 10^3/ul (0-0.2); ABS Eosinophils 0.1 10^3/ul (0-0.6); ABS Lymphocytes 2.2 10^3/ul (1.0-4.8); ABS Monocytes 1.4 10^3/ul (0-0.8); ABS Neutrophils 17.3 10^3/ul (1.5-7.7); Eosinophil % 0.6 %; Hematocrit 40 % (35-47); Hemoglobin 12.6 g/dL (12.0-16.0); Lymphocyte % 10.3 %; Mean Corpuscular HGB Conc 32 g/dL (31-36); Mean Corpuscular Hemoglobin 26 pg (27-31); Mean Corpuscular Volume 83 fL (80-97); Mean Platelet Volume 7.5 fL (7.4-10.4); Platelet Count 714 10^3/uL (150-450); Red Blood Count 4.82 10^6 /uL (3.70-4.87); Red Cell Distribution Width 22 % (10-15); White Blood Count 21.1 10^3/uL (3.5-10.8)
[2020-05-04 20:01] LABS: ALT 15 U/L (7-52); AST 28 U/L (13-39); Albumin 3.9 g/dL (3.2-5.2); Albumin/Globulin Ratio 1.1 (1-3); Alkaline Phosphatase 147 U/L (34-104); Anion Gap 15 mmol/L (2-11); BUN/Creatinine Ratio 14.7 (8-20); Blood Urea Nitrogen 15 mg/dL (6-24); C Reactive Protein 10.46 mg/L (<8.01); CO2 Carbon Dioxide 19 mmol/L (22-32); Calcium 9.3 mg/dL (8.6-10.3); Chloride 100 mmol/L (101-111); EGFR African American 73.4 (>60); EGFR Non-African American 60.6 (>60); Globulin 3.5 g/dL (2-4); Glucose 108 mg/dL (70-100); Potassium 4.2 mmol/L (3.5-5.0); Sodium 134 mmol/L (135-145); Total Protein 7.4 g/dL (6.4-8.9)
[2020-05-04 20:07] LABS: HCG Pregnancy < 0.60 mIU/mL
[2020-05-04 20:19] LABS: Lipase 1293 U/L (11.0-82.0)
[2020-05-04] MEDS ORDERED: HYDROmorphone 1 MG/1 ML SYRINGE IV SLOW PU ONE (20:57)
[2020-05-04] MEDS ORDERED: Ondansetron 4 mg VIAL 2 MG/ML 2 ml VIAL IV ONE (20:58)
[2020-05-04] MEDS ORDERED: Iohexol 300 (CONTRAST) 10 ML SDV IV ONE (22:10)
[2020-05-04] MEDS: NS 0.9% 1000 ml BAG 3,000 ML IV ONE (22:17)
[2020-05-04] MEDS ORDERED: HYDROmorphone 1 MG/1 ML SYRINGE IV SLOW PU PRN (22:37)
[2020-05-04] MEDS ORDERED: Albuterol HFA INHALER 8 gm MDI INH PRN (22:58)
[2020-05-04 23:19] LABS: Magnesium 1.5 mg/dL (1.9-2.7); Triglycerides 144 mg/dL
[2020-05-05] MEDS ORDERED: Magnesium Sulf 4 GM/100 ML IV 4,000 MG/100 ML BAG IVPB ONE (00:20)
[2020-05-05] MEDS: Prochlorperazine 5 mg/ml 2 ml VIAL (10 mg) IV PRN (01:06)
[2020-05-05] MEDS: NS 0.9% 1000 ml BAG 3,000 ML IV ONE (01:08)
[2020-05-05] MEDS ORDERED: HYDROmorphone 1 MG/1 ML SYRINGE IV SLOW PU PRN ×2 (03:24→06:11)
[2020-05-05] MEDS ORDERED: HYDROmorphone 0.5 MG/0.5 ML SYRINGE IV SLOW PU ONE (06:11)
[2020-05-05 06:20] LABS: ABS Basophils 0.1 10^3/ul (0-0.2); ABS Eosinophils 0.1 10^3/ul (0-0.6); ABS Lymphocytes 2.6 10^3/ul (1.0-4.8); ABS Monocytes 1.5 10^3/ul (0-0.8); ABS Neutrophils 12.9 10^3/ul (1.5-7.7); Eosinophil % 0.8 %; Hematocrit 35 % (35-47); Hemoglobin 11.1 g/dL (12.0-16.0); Lymphocyte % 14.9 %; Mean Corpuscular HGB Conc 32 g/dL (31-36); Mean Corpuscular Hemoglobin 26 pg (27-31); Mean Corpuscular Volume 83 fL (80-97); Mean Platelet Volume 7.4 fL (7.4-10.4); Platelet Count 592 10^3/uL (150-450); Red Blood Count 4.22 10^6 /uL (3.70-4.87); Red Cell Distribution Width 22 % (10-15); White Blood Count 17.3 10^3/uL (3.5-10.8)
[2020-05-05 06:44] LABS: BUN/Creatinine Ratio 13.8 (8-20); Calcium 7.8 mg/dL (8.6-10.3); EGFR African American 88.2 (>60); EGFR Non-African American 72.9 (>60); Potassium 3.9 mmol/L (3.5-5.0)
[2020-05-05] MEDS: Multivitamins/Minerals TAB PO SCH (08:13)
[2020-05-05] MEDS: Nicotine PATCH 21 MG/24 HR PATCH TRANSDERM SCH (08:14)
[2020-05-05] MEDS: Lactated Ringers 1000 ml BAG 1,000 ML IV SCH ×4 (10:52→23:49)
[2020-05-05] MEDS: HYDROmorphone 0.5 MG/0.5 ML SYRINGE IV PRN ×3 (15:43→23:50)
[2020-05-06] MEDS: HYDROmorphone 0.5 MG/0.5 ML SYRINGE IV PRN ×2 (03:32→07:43)
[2020-05-06] MEDS: Lactated Ringers 1000 ml BAG 1,000 ML IV SCH ×4 (04:15→23:00)
[2020-05-06 07:03] LABS: Hematocrit 30 % (35-47); Hemoglobin 9.7 g/dL (12.0-16.0); Mean Corpuscular HGB Conc 32 g/dL (31-36); Mean Corpuscular Hemoglobin 27 pg (27-31); Mean Corpuscular Volume 83 fL (80-97); Mean Platelet Volume 7.7 fL (7.4-10.4); Platelet Count 442 10^3/uL (150-450); Red Blood Count 3.64 10^6 /uL (3.70-4.87); Red Cell Distribution Width 22 % (10-15); White Blood Count 10.2 10^3/uL (3.5-10.8)
[2020-05-06 07:14] LABS: ALT 11 U/L (7-52); AST 20 U/L (13-39); Albumin/Globulin Ratio 1.2 (1-3); Alkaline Phosphatase 121 U/L (34-104); Anion Gap 5 mmol/L (2-11); BUN/Creatinine Ratio 7.4 (8-20); Blood Urea Nitrogen 5 mg/dL (6-24); CO2 Carbon Dioxide 26 mmol/L (22-32); Calcium 8.2 mg/dL (8.6-10.3); Chloride 105 mmol/L (101-111); EGFR African American 117.2 (>60); EGFR Non-African American 96.8 (>60); Globulin 2.6 g/dL (2-4); Glucose 73 mg/dL (70-100); Potassium 3.9 mmol/L (3.5-5.0); Sodium 136 mmol/L (135-145); Total Protein 5.6 g/dL (6.4-8.9)
[2020-05-06] MEDS: Nicotine PATCH 21 MG/24 HR PATCH TRANSDERM SCH (07:45)
[2020-05-06] MEDS: Multivitamins/Minerals TAB PO SCH (07:50)
[2020-05-06] MEDS ORDERED: HYDROmorphone 1 MG/1 ML SYRINGE IV SLOW PU ONE (10:12)
[2020-05-06 10:46] LABS: % Iron Saturation 15 % (15-55); Iron 47 ug/dL (50-212); Total Iron Binding Capacity 314 mcg/dL (250-450); Transferrin 224 mg/dL (203-362); Unsaturated Iron Binding < 299 ug/dL
[2020-05-06 11:08] LABS: Ferritin 45.8 ng/mL (11-307)
[2020-05-06 11:12] LABS: Folate 5.08 ng/mL (>3.99)
[2020-05-06 11:13] LABS: Vitamin B12 828 pg/mL (180-914)
[2020-05-06] MEDS ORDERED: HYDROmorphone 0.5 MG/0.5 ML SYRINGE IV SLOW PU ONE (16:21)
[2020-05-06] MEDS: Prochlorperazine 5 mg/ml 2 ml VIAL (10 mg) IV PRN (20:50)
[2020-05-07] MEDS: Lactated Ringers 1000 ml BAG 1,000 ML IV SCH ×3 (05:03→23:58)
[2020-05-07 06:27] LABS: ABS Basophils 0.1 10^3/ul (0-0.2); ABS Eosinophils 0.2 10^3/ul (0-0.6); ABS Lymphocytes 2.3 10^3/ul (1.0-4.8); ABS Monocytes 0.4 10^3/ul (0-0.8); ABS Neutrophils 3.1 10^3/ul (1.5-7.7); Eosinophil % 3.7 %; Hematocrit 26 % (35-47); Hemoglobin 8.8 g/dL (12.0-16.0); Lymphocyte % 37.8 %; Mean Corpuscular HGB Conc 33 g/dL (31-36); Mean Corpuscular Hemoglobin 28 pg (27-31); Mean Corpuscular Volume 83 fL (80-97); Mean Platelet Volume 7.9 fL (7.4-10.4); Platelet Count 355 10^3/uL (150-450); Red Cell Distribution Width 22 % (10-15); White Blood Count 6.2 10^3/uL (3.5-10.8)
[2020-05-07 06:43] LABS: BUN/Creatinine Ratio 4.5 (8-20); Calcium 8.3 mg/dL (8.6-10.3); EGFR Non-African American 71.9 (>60); Magnesium 1.8 mg/dL (1.9-2.7); Potassium 3.8 mmol/L (3.5-5.0)
[2020-05-07 06:49] LABS: INR 1.17 (0.82-1.09)
[2020-05-07] MEDS: Multivitamins/Minerals TAB PO SCH (08:26)
[2020-05-07] MEDS: Nicotine PATCH 21 MG/24 HR PATCH TRANSDERM SCH (08:26)
[2020-05-07] MEDS ORDERED: Lactated Ringers 1000 ml BAG 1,000 ML IV SCH (10:02)
[2020-05-07] MEDS: HYDROmorphone 0.5 MG/0.5 ML SYRINGE IV SLOW PU PRN ×2 (17:54→22:03)
[2020-05-07] MEDS: Ondansetron 4 mg VIAL 2 MG/ML 2 ml VIAL IV PRN (20:20)
[2020-05-07] MEDS: Senna TAB 8.6 mg TAB PO SCH (22:09)
[2020-05-07] MEDS: Famotidine IV 10 MG/ML 2 ml VIAL (20 mg) IV SLOW PU SCH (22:10)
[2020-05-08] MEDS: HYDROmorphone 0.5 MG/0.5 ML SYRINGE IV SLOW PU PRN ×3 (02:07→10:06)
[2020-05-08] MEDS: Lactated Ringers 1000 ml BAG 1,000 ML IV SCH ×3 (05:06→23:58)
[2020-05-08 06:42] LABS: ABS Basophils 0.1 10^3/ul (0-0.2); ABS Eosinophils 0.3 10^3/ul (0-0.6); ABS Lymphocytes 2.3 10^3/ul (1.0-4.8); ABS Monocytes 0.4 10^3/ul (0-0.8); ABS Neutrophils 4.5 10^3/ul (1.5-7.7); Eosinophil % 3.4 %; Hematocrit 30 % (35-47); Hemoglobin 9.8 g/dL (12.0-16.0); Lymphocyte % 30.8 %; Mean Corpuscular HGB Conc 33 g/dL (31-36); Mean Corpuscular Hemoglobin 27 pg (27-31); Mean Corpuscular Volume 83 fL (80-97); Platelet Count 381 10^3/uL (150-450); Red Cell Distribution Width 21 % (10-15); White Blood Count 7.5 10^3/uL (3.5-10.8)
[2020-05-08] MEDS: Famotidine IV 10 MG/ML 2 ml VIAL (20 mg) IV SLOW PU SCH ×2 (09:18→21:04)
[2020-05-08] MEDS: Nicotine PATCH 21 MG/24 HR PATCH TRANSDERM SCH (09:20)
[2020-05-08] MEDS: Multivitamins/Minerals TAB PO SCH (09:23)
[2020-05-08] MEDS: Iron Sucrose 200 MG in NS 0.9% 100 ml BAG 100 ML IVPB SCH (11:26)
[2020-05-08] MEDS: HYDROmorphone 1 MG/1 ML SYRINGE IV SLOW PU PRN ×3 (14:08→22:18)
[2020-05-08] MEDS: Polyethylene Glycol 3350 17 GM PACKET PO PRN (16:10)
[2020-05-08] MEDS: Ondansetron 4 mg VIAL 2 MG/ML 2 ml VIAL IV PRN (19:43)
[2020-05-08] MEDS: Senna TAB 8.6 mg TAB PO SCH (21:03)
[2020-05-09] MEDS: HYDROmorphone 1 MG/1 ML SYRINGE IV SLOW PU PRN ×5 (02:06→20:32)
[2020-05-09] MEDS: Lactated Ringers 1000 ml BAG 1,000 ML IV SCH ×2 (05:04→17:22)
[2020-05-09] MEDS: Nicotine PATCH 21 MG/24 HR PATCH TRANSDERM SCH (09:05)
[2020-05-09] MEDS: Famotidine IV 10 MG/ML 2 ml VIAL (20 mg) IV SLOW PU SCH ×2 (09:07→20:38)
[2020-05-09] MEDS: Iron Sucrose 200 MG in NS 0.9% 100 ml BAG 100 ML IVPB SCH (09:09)
[2020-05-09] MEDS: Multivitamins/Minerals TAB PO SCH (09:10)
[2020-05-09] MEDS: Polyethylene Glycol 3350 17 GM PACKET PO PRN (09:10)
[2020-05-09] MEDS: Ondansetron 4 mg VIAL 2 MG/ML 2 ml VIAL IV PRN (14:46)
[2020-05-09] MEDS ORDERED: CMCS: Methylnaltrexone SQ (NF) 12 MG/0.6 ML VIAL SUBCUT ONE (18:30)
[2020-05-09] MEDS: Senna TAB 8.6 mg TAB PO SCH (20:36)
[2020-05-10] MEDS: HYDROmorphone 1 MG/1 ML SYRINGE IV SLOW PU PRN ×3 (01:08→10:43)
[2020-05-10 06:29] LABS: ABS Basophils 0.1 10^3/ul (0-0.2); ABS Eosinophils 0.2 10^3/ul (0-0.6); ABS Lymphocytes 2.3 10^3/ul (1.0-4.8); ABS Neutrophils 5.7 10^3/ul (1.5-7.7); Eosinophil % 2.3 %; Hematocrit 28 % (35-47); Lymphocyte % 25.2 %; Mean Corpuscular HGB Conc 33 g/dL (31-36); Mean Corpuscular Hemoglobin 28 pg (27-31); Mean Corpuscular Volume 84 fL (80-97); Nucleated Red Blood Cells % 0.1; Platelet Count 307 10^3/uL (150-450); Red Blood Count 3.27 10^6 /uL (3.70-4.87); Red Cell Distribution Width 23 % (10-15); White Blood Count 9.3 10^3/uL (3.5-10.8)
[2020-05-10 06:44] LABS: Albumin 2.9 g/dL (3.2-5.2); Albumin/Globulin Ratio 1.2 (1-3); BUN/Creatinine Ratio 2.6 (8-20); Calcium 8.4 mg/dL (8.6-10.3); EGFR African American 101.5 (>60); EGFR Non-African American 83.9 (>60); Globulin 2.4 g/dL (2-4); Magnesium 1.7 mg/dL (1.9-2.7); Potassium 3.4 mmol/L (3.5-5.0); Total Bilirubin 0.3 mg/dL (0.2-1.0); Total Protein 5.3 g/dL (6.4-8.9)
[2020-05-10] MEDS: Nicotine PATCH 21 MG/24 HR PATCH TRANSDERM SCH (07:52)
[2020-05-10] MEDS: Multivitamins/Minerals TAB PO SCH (07:54)
[2020-05-10] MEDS: Famotidine IV 10 MG/ML 2 ml VIAL (20 mg) IV SLOW PU SCH ×2 (07:54→21:00)
[2020-05-10] MEDS: Iron Sucrose 200 MG in NS 0.9% 100 ml BAG 100 ML IVPB SCH (07:56)
[2020-05-10] MEDS ORDERED: Magnesium Sulfate 2 gm BAG 2 GM/50 ML BAG IVPB ONE (08:22)
[2020-05-10] MEDS: Lactated Ringers 1000 ml BAG 1,000 ML IV SCH (09:07)
[2020-05-10] MEDS: HYDROmorphone 0.5 MG/0.5 ML SYRINGE IV SLOW PU PRN ×3 (14:25→22:33)
[2020-05-10] MEDS: Senna TAB 8.6 mg TAB PO SCH (21:01)
[2020-05-11 08:04] VITALS: BP 104/79
[2020-05-11] MEDS: HYDROmorphone 0.5 MG/0.5 ML SYRINGE IV SLOW PU PRN (10:38)
[2020-05-11] MEDS: Famotidine IV 10 MG/ML 2 ml VIAL (20 mg) IV SLOW PU SCH (10:44)
[2020-05-11] MEDS: Nicotine PATCH 21 MG/24 HR PATCH TRANSDERM SCH (10:44)
[2020-05-11] MEDS: Multivitamins/Minerals TAB PO SCH (10:46)
== END 2020-05-11 14:14 | disposition home or self-care (01) | DRG 282 ==
LOC: ED 16:39 → MED 21:54 → MEDTELE 05-07 01:59
PROVIDERS: ADMIT Internal Medicine; ATTEND Internal Medicine

== ENCOUNTER 2020-11-04 12:59 | Inpatient (IN) ==
[2020-11-04 14:14] LABS: ABS Basophils 0.1 10^3/ul (0-0.2); ABS Eosinophils 0.2 10^3/ul (0-0.6); ABS Lymphocytes 1.7 10^3/ul (1.0-4.8); ABS Monocytes 0.8 10^3/ul (0-0.8); ABS Neutrophils 15.8 10^3/ul (1.5-7.7); Eosinophil % 0.9 %; Hematocrit 40 % (35-47); Hemoglobin 12.8 g/dL (12.0-16.0); Lymphocyte % 9.3 %; Mean Corpuscular HGB Conc 32 g/dL (31-36); Mean Corpuscular Hemoglobin 29 pg (27-31); Mean Corpuscular Volume 91 fL (80-97); Mean Platelet Volume 7.9 fL (7.4-10.4); Platelet Count 273 10^3/uL (150-450); Red Blood Count 4.37 10^6 /uL (3.70-4.87); Red Cell Distribution Width 17 % (10-15); White Blood Count 18.5 10^3/uL (3.5-10.8)
[2020-11-04 14:30] LABS: Influenza A Molecular Negative (Negative); Influenza B Molecular Negative (Negative)
[2020-11-04 14:32] LABS: ALT 11 U/L (7-52); AST 27 U/L (13-39); Albumin/Globulin Ratio 1.1 (1-3); Alkaline Phosphatase 123 U/L (34-104); Anion Gap 11 mmol/L (2-11); Blood Urea Nitrogen 28 mg/dL (6-24); C Reactive Protein 176.52 mg/L (<8.01); CO2 Carbon Dioxide 20 mmol/L (22-32); Chloride 103 mmol/L (101-111); EGFR African American 23.7 (>60); EGFR Non-African American 19.6 (>60); Globulin 3.5 g/dL (2-4); Glucose 132 mg/dL (70-100); Potassium 4.3 mmol/L (3.5-5.0); Sodium 134 mmol/L (135-145); Total Protein 7.5 g/dL (6.4-8.9)
[2020-11-04 14:34] LABS: Troponin I 0.01 ng/mL (<0.03)
[2020-11-04] MEDS ORDERED: NS 0.9% 1000 ml BAG 1,000 ML IV ONE (14:37)
[2020-11-04 14:38] LABS: HCG Pregnancy < 0.60 mIU/mL
[2020-11-04] MEDS ORDERED: Aztreonam 2 GM in NS 0.9% 100 ml BAG 100 ML IVPB ONE (14:39)
[2020-11-04] MEDS ORDERED: NS 0.9% 100 ml BAG 100 ML ONE (15:22)
[2020-11-04] MEDS ORDERED: Ondansetron 4 mg VIAL 2 MG/ML 2 ml VIAL IV PRN (16:17)
[2020-11-04] MEDS ORDERED: Polyethylene Glycol 3350 17 GM PACKET PO PRN (16:29)
[2020-11-04] MEDS ORDERED: Albuterol HFA INHALER 8 gm MDI INH PRN (16:29)
[2020-11-04] MEDS ORDERED: Furosemide 20 mg/2 ml IV VIAL IV SLOW PU ONE (16:52)
[2020-11-04] MEDS ORDERED: Enoxaparin 40 MG/0.4 ML SYR SUBCUT SCH (17:00)
[2020-11-04] MEDS ORDERED: Gabapentin 600 mg TAB (NF) PO SCH (17:00)
[2020-11-04] MEDS ORDERED: Aztreonam 1 GM in NS 0.9% 50 ML 50 ML IV SCH (17:00)
[2020-11-04] MEDS: Enoxaparin 30 MG/0.3 ML SYR SUBCUT SCH (17:05)
[2020-11-04] MEDS: methylPREDNISolone 125 mg 2 ML VIAL IV SCH (17:06)
[2020-11-04 17:32] LABS: Urine Appearance Clear; Urine Bilirubin Negative (Negative); Urine Blood Negative (Negative); Urine Color Amber; Urine Glucose Negative (Negative); Urine Ketones Negative (Negative); Urine Nitrite Positive (Negative); Urine Protein 1+(30 mg/dL) (Negative); Urine Specific Gravity 1.017 (1.002-1.030); Urine Urobilinogen Negative (Negative)
[2020-11-04] MEDS: HYDROmorphone 0.5 MG/0.5 ML SYRINGE IV SLOW PU PRN ×2 (17:32→23:43)
[2020-11-04 17:36] LABS: Urine Bacteria 1+ (Absent); Urine Red Blood Cell 1+(3-5/hpf) (Absent); Urine Squamous Epithelial Cell Present (Absent); Urine White Blood Cell 2+(11-20/hpf) (Absent)
[2020-11-04] MEDS: DOXYcycline 100 MG in NS 0.9% 250 ml 250 ML IVPB SCH (18:38)
[2020-11-04] MEDS: Senna TAB 8.6 mg TAB PO SCH (20:13)
[2020-11-04] MEDS: Aztreonam 1 GM in NS 0.9% 50 ML 50 ML IV SCH (23:43)
[2020-11-05] MEDS ORDERED: diPHENhydraMINE 25 mg TAB PO ONE (03:35)
[2020-11-05] MEDS: methylPREDNISolone 125 mg 2 ML VIAL IV SCH ×2 (04:20→17:52)
[2020-11-05] MEDS: DOXYcycline 100 MG in NS 0.9% 250 ml 250 ML IVPB SCH ×2 (04:20→17:48)
[2020-11-05 04:49] LABS: ABS Lymphocytes 0.6 10^3/ul (1.0-4.8); ABS Monocytes 0.3 10^3/ul (0-0.8); ABS Neutrophils 17.8 10^3/ul (1.5-7.7); Hematocrit 36 % (35-47); Hemoglobin 11.6 g/dL (12.0-16.0); Lymphocyte % 3.2 %; Mean Corpuscular HGB Conc 32 g/dL (31-36); Mean Corpuscular Hemoglobin 29 pg (27-31); Mean Corpuscular Volume 91 fL (80-97); Platelet Count 263 10^3/uL (150-450); Red Blood Count 3.96 10^6 /uL (3.70-4.87); Red Cell Distribution Width 16 % (10-15); White Blood Count 18.8 10^3/uL (3.5-10.8)
[2020-11-05 05:05] LABS: Albumin 3.8 g/dL (3.2-5.2); Albumin/Globulin Ratio 1.1 (1-3); C Reactive Protein 171.79 mg/L (<8.01); EGFR African American 27.9 (>60); Globulin 3.4 g/dL (2-4); Magnesium 1.9 mg/dL (1.9-2.7); Potassium 4.7 mmol/L (3.5-5.0); Total Bilirubin 0.5 mg/dL (0.2-1.0); Total Protein 7.2 g/dL (6.4-8.9)
[2020-11-05] MEDS: HYDROmorphone 0.5 MG/0.5 ML SYRINGE IV SLOW PU PRN ×4 (06:00→23:37)
[2020-11-05] MEDS: Multivitamins/Minerals TAB PO SCH ×2 (09:34→09:56)
[2020-11-05] MEDS ORDERED: Buffered Lidocaine 1% SYRIN 1 ml INTRADERM ONE (11:35)
[2020-11-05] MEDS: Nicotine PATCH 14 MG/24 HR PATCH TRANSDERM SCH (15:38)
[2020-11-05] MEDS: Aztreonam 1 GM in NS 0.9% 50 ML 50 ML IV SCH ×3 (15:43→23:47)
[2020-11-05] MEDS: Enoxaparin 30 MG/0.3 ML SYR SUBCUT SCH (17:57)
[2020-11-05 20:32] LABS: Urine Appearance Clear; Urine Bilirubin Negative (Negative); Urine Blood Negative (Negative); Urine Color Amber; Urine Glucose Negative (Negative); Urine Ketones Negative (Negative); Urine Nitrite Negative (Negative); Urine Protein Negative (Negative); Urine Specific Gravity 1.019 (1.002-1.030); Urine Urobilinogen Negative (Negative)
[2020-11-05] MEDS: Senna TAB 8.6 mg TAB PO SCH (23:32)
[2020-11-06] MEDS: methylPREDNISolone 125 mg 2 ML VIAL IV SCH ×2 (05:45→17:34)
[2020-11-06] MEDS: DOXYcycline 100 MG in NS 0.9% 250 ml 250 ML IVPB SCH ×2 (05:48→17:37)
[2020-11-06] MEDS: HYDROmorphone 0.5 MG/0.5 ML SYRINGE IV SLOW PU PRN ×4 (05:49→23:55)
[2020-11-06] MEDS: Nicotine PATCH 14 MG/24 HR PATCH TRANSDERM SCH (08:17)
[2020-11-06] MEDS: Multivitamins/Minerals TAB PO SCH (08:20)
[2020-11-06] MEDS: Aztreonam 1 GM in NS 0.9% 50 ML 50 ML IV SCH ×3 (08:35→23:56)
[2020-11-06 10:41] LABS: Hematocrit 37 % (35-47); Hemoglobin 11.7 g/dL (12.0-16.0); Mean Corpuscular HGB Conc 32 g/dL (31-36); Mean Corpuscular Hemoglobin 29 pg (27-31); Mean Corpuscular Volume 93 fL (80-97); Mean Platelet Volume 8.2 fL (7.4-10.4); Platelet Count 302 10^3/uL (150-450); Red Cell Distribution Width 17 % (10-15); White Blood Count 25.1 10^3/uL (3.5-10.8)
[2020-11-06 10:44] LABS: ABS Basophils 0.1 10^3/ul (0-0.2); ABS Lymphocytes 0.8 10^3/ul (1.0-4.8); ABS Monocytes 0.5 10^3/ul (0-0.8); ABS Neutrophils 23.7 10^3/ul (1.5-7.7); Lymphocyte % 3.3 %
[2020-11-06 11:01] LABS: Potassium 4.8 mmol/L (3.5-5.0)
[2020-11-06 11:23] LABS: Albumin 3.6 g/dL (3.2-5.2); Albumin/Globulin Ratio 1.2 (1-3); Calcium 8.8 mg/dL (8.6-10.3); EGFR African American 53.3 (>60); Globulin 3.1 g/dL (2-4); Magnesium 1.5 mg/dL (1.9-2.7); Total Bilirubin 0.4 mg/dL (0.2-1.0); Total Protein 6.7 g/dL (6.4-8.9)
[2020-11-06] MEDS ORDERED: Albuterol 2.5mg/3 ml (0.083%) NEB.SOLN INH PRN (13:48)
[2020-11-06] MEDS ORDERED: Magnesium Sulfate 2 gm BAG 2 GM/50 ML BAG IVPB ONE (14:40)
[2020-11-06] MEDS: Enoxaparin 30 MG/0.3 ML SYR SUBCUT SCH (17:39)
[2020-11-06] MEDS: Senna TAB 8.6 mg TAB PO SCH (20:06)
[2020-11-06 20:22] LABS: Aspergillus fumigatus IgG Ab 19.5 mg/L (<=102); Micropolyspora faeni IgG Ab 4.5 mg/L (<=13.2)
[2020-11-07] MEDS: methylPREDNISolone 125 mg 2 ML VIAL IV SCH ×2 (05:47→17:14)
[2020-11-07] MEDS: HYDROmorphone 0.5 MG/0.5 ML SYRINGE IV SLOW PU PRN ×4 (05:48→23:56)
[2020-11-07] MEDS: DOXYcycline 100 MG in NS 0.9% 250 ml 250 ML IVPB SCH ×2 (06:02→17:15)
[2020-11-07 08:57] LABS: ABS Lymphocytes 0.9 10^3/ul (1.0-4.8); ABS Monocytes 0.8 10^3/ul (0-0.8); ABS Neutrophils 19.7 10^3/ul (1.5-7.7); Hematocrit 38 % (35-47); Hemoglobin 11.9 g/dL (12.0-16.0); Lymphocyte % 4.4 %; Mean Corpuscular HGB Conc 32 g/dL (31-36); Mean Corpuscular Hemoglobin 29 pg (27-31); Mean Corpuscular Volume 93 fL (80-97); Mean Platelet Volume 7.7 fL (7.4-10.4); Platelet Count 355 10^3/uL (150-450); Red Blood Count 4.06 10^6 /uL (3.70-4.87); Red Cell Distribution Width 17 % (10-15); White Blood Count 21.5 10^3/uL (3.5-10.8)
[2020-11-07 09:12] LABS: Calcium 8.3 mg/dL (8.6-10.3); EGFR African American 69.1 (>60); EGFR Non-African American 57.1 (>60); Magnesium 1.7 mg/dL (1.9-2.7); Potassium 4.7 mmol/L (3.5-5.0)
[2020-11-07] MEDS ORDERED: Magnesium Sulfate 2 gm BAG 2 GM/50 ML BAG IVPB ONE (09:41)
[2020-11-07] MEDS: Multivitamins/Minerals TAB PO SCH (09:50)
[2020-11-07] MEDS: Aztreonam 1 GM in NS 0.9% 50 ML 50 ML IV SCH (09:51)
[2020-11-07] MEDS: Nicotine PATCH 14 MG/24 HR PATCH TRANSDERM SCH (09:52)
[2020-11-07] MEDS: Enoxaparin 30 MG/0.3 ML SYR SUBCUT SCH (17:14)
[2020-11-07] MEDS: Senna TAB 8.6 mg TAB PO SCH (21:03)
[2020-11-08] MEDS: DOXYcycline 100 MG in NS 0.9% 250 ml 250 ML IVPB SCH ×2 (05:52→17:46)
[2020-11-08] MEDS: methylPREDNISolone 125 mg 2 ML VIAL IV SCH ×2 (05:52→17:45)
[2020-11-08] MEDS: HYDROmorphone 0.5 MG/0.5 ML SYRINGE IV SLOW PU PRN ×4 (05:52→23:15)
[2020-11-08 07:34] LABS: ABS Lymphocytes 1.7 10^3/ul (1.0-4.8); ABS Monocytes 1.3 10^3/ul (0-0.8); ABS Neutrophils 13.5 10^3/ul (1.5-7.7); Eosinophil % 0.2 %; Hematocrit 36 % (35-47); Hemoglobin 11.6 g/dL (12.0-16.0); Lymphocyte % 10.4 %; Mean Corpuscular HGB Conc 32 g/dL (31-36); Mean Corpuscular Hemoglobin 30 pg (27-31); Mean Corpuscular Volume 92 fL (80-97); Mean Platelet Volume 7.7 fL (7.4-10.4); Platelet Count 343 10^3/uL (150-450); Red Blood Count 3.91 10^6 /uL (3.70-4.87); Red Cell Distribution Width 17 % (10-15); White Blood Count 16.6 10^3/uL (3.5-10.8)
[2020-11-08 07:49] LABS: Calcium 8.2 mg/dL (8.6-10.3); EGFR African American 87.7 (>60); EGFR Non-African American 72.5 (>60); Magnesium 1.7 mg/dL (1.9-2.7); Potassium 4.2 mmol/L (3.5-5.0)
[2020-11-08] MEDS ORDERED: Magnesium Sulfate 2 gm BAG 2 GM/50 ML BAG IVPB ONE (07:53)
[2020-11-08] MEDS: Multivitamins/Minerals TAB PO SCH (09:18)
[2020-11-08] MEDS: Nicotine PATCH 14 MG/24 HR PATCH TRANSDERM SCH (09:21)
[2020-11-08 17:16] LABS: Urine Appearance Cloudy; Urine Bilirubin Negative (Negative); Urine Blood Negative (Negative); Urine Color Yellow; Urine Glucose Negative (Negative); Urine Ketones Negative (Negative); Urine Nitrite Negative (Negative); Urine Protein Negative (Negative); Urine Specific Gravity 1.015 (1.002-1.030); Urine Urobilinogen Negative (Negative)
[2020-11-08] MEDS: Enoxaparin 30 MG/0.3 ML SYR SUBCUT SCH (17:43)
[2020-11-08] MEDS: Albuterol 2.5mg/3 ml (0.083%) NEB.SOLN INH SCH ×3 (18:39→22:42)
[2020-11-08] MEDS: Senna TAB 8.6 mg TAB PO SCH (21:40)
[2020-11-09] MEDS: HYDROmorphone 0.5 MG/0.5 ML SYRINGE IV SLOW PU PRN ×3 (05:22→21:37)
[2020-11-09] MEDS: methylPREDNISolone 125 mg 2 ML VIAL IV SCH ×2 (05:22→18:11)
[2020-11-09] MEDS: DOXYcycline 100 MG in NS 0.9% 250 ml 250 ML IVPB SCH ×2 (05:22→18:14)
[2020-11-09] MEDS: Albuterol 2.5mg/3 ml (0.083%) NEB.SOLN INH SCH ×2 (05:27→09:49)
[2020-11-09 06:08] LABS: ABS Lymphocytes 2.2 10^3/ul (1.0-4.8); ABS Monocytes 1.2 10^3/ul (0-0.8); ABS Neutrophils 11.6 10^3/ul (1.5-7.7); Eosinophil % 0.1 %; Hematocrit 35 % (35-47); Hemoglobin 11.5 g/dL (12.0-16.0); Lymphocyte % 14.4 %; Mean Corpuscular HGB Conc 33 g/dL (31-36); Mean Corpuscular Hemoglobin 30 pg (27-31); Mean Corpuscular Volume 91 fL (80-97); Mean Platelet Volume 7.4 fL (7.4-10.4); Platelet Count 375 10^3/uL (150-450); Red Blood Count 3.87 10^6 /uL (3.70-4.87); Red Cell Distribution Width 17 % (10-15)
[2020-11-09 06:23] LABS: Calcium 8.3 mg/dL (8.6-10.3); EGFR African American 102.5 (>60); EGFR Non-African American 84.7 (>60); Magnesium 1.6 mg/dL (1.9-2.7)
[2020-11-09 06:56] LABS: Potassium 4.2 mmol/L (3.5-5.0)
[2020-11-09] MEDS ORDERED: Magnesium Sulfate IV 3 GM in NS 0.9% 100 ml BAG 100 ML IVPB ONE (07:09)
[2020-11-09] MEDS ORDERED: Albuterol 2.5mg/3 ml (0.083%) NEB.SOLN INH PRN (07:12)
[2020-11-09] MEDS ORDERED: Albuterol 2.5mg/3 ml (0.083%) NEB.SOLN INH ONE (07:23)
[2020-11-09] MEDS: Nicotine PATCH 14 MG/24 HR PATCH TRANSDERM SCH (08:23)
[2020-11-09] MEDS ORDERED: Albuterol/Ipratropium NEB.SOL (2.5/0.5 MG) 3 ML NEB.SOLN INH ONE (10:25)
[2020-11-09] MEDS ORDERED: Albuterol/Ipratropium NEB.SOL (2.5/0.5 MG) 3 ML NEB.SOLN ONE (12:01)
[2020-11-09] MEDS ORDERED: Lidocaine 2% PF 5 ML VIAL ONE (12:35)
[2020-11-09] MEDS ORDERED: Propofol 10 MG/ML 20 ML BTL ONE (12:35)
[2020-11-09] MEDS ORDERED: Midazolam 2 mg/2 ml VIAL 1 mg/ml 2 ml VIAL (2 mg) ONE (12:36)
[2020-11-09] MEDS ORDERED: Rocuronium 50 mg VIAL 10 mg/ml 5 ml VIAL (50 mg) ONE (12:36)
[2020-11-09] MEDS ORDERED: fentaNYL 100 mcg/2 ml 50 MCG/ML VIAL ONE (12:41)
[2020-11-09] MEDS ORDERED: Benzocaine/Butamben/Tetracain (CETACAINE - SINGLE USE) 5 gm TOPICAL ONE (12:57)
[2020-11-09] MEDS ORDERED: Succinylcholine 200 mg VIAL 20 mg/ml 10 ml VIAL (200 mg) ONE (13:28)
[2020-11-09] MEDS ORDERED: Dexamethasone IV 4 MG/ML VIAL 1 ml VIAL ONE (13:38)
[2020-11-09] MEDS ORDERED: Ondansetron 4 mg VIAL 2 MG/ML 2 ml VIAL ONE (13:38)
[2020-11-09] MEDS ORDERED: DiMENhydriNATE IV 50 mg/ml 1 ml VIAL IV PUSH PRN (13:44)
[2020-11-09] MEDS ORDERED: Naloxone 0.4 mg VIAL 0.4 mg/ml 1 ml VIAL IV PRN (13:44)
[2020-11-09] MEDS ORDERED: HYDROmorphone 1 MG/1 ML SYRINGE ONE (14:57)
[2020-11-09] MEDS: HYDROmorphone 1 MG/1 ML SYRINGE IV PRN ×5 (14:58→15:25)
[2020-11-09] MEDS: Multivitamins/Minerals TAB PO SCH (17:36)
[2020-11-09] MEDS: Enoxaparin 30 MG/0.3 ML SYR SUBCUT SCH (18:10)
[2020-11-09] MEDS: Senna TAB 8.6 mg TAB PO SCH (21:49)
[2020-11-10] MEDS: HYDROmorphone 0.5 MG/0.5 ML SYRINGE IV SLOW PU PRN ×2 (03:14→09:45)
[2020-11-10] MEDS: methylPREDNISolone 125 mg 2 ML VIAL IV SCH (05:07)
[2020-11-10] MEDS: DOXYcycline 100 MG in NS 0.9% 250 ml 250 ML IVPB SCH (05:08)
[2020-11-10 09:11] VITALS: BP 122/93
[2020-11-10] MEDS: Nicotine PATCH 14 MG/24 HR PATCH TRANSDERM SCH (09:44)
[2020-11-10] MEDS: Multivitamins/Minerals TAB PO SCH (09:44)
[2020-11-10 10:22] LABS: Hematocrit 43 % (35-47); Hemoglobin 13.5 g/dL (12.0-16.0); Mean Corpuscular HGB Conc 31 g/dL (31-36); Mean Corpuscular Hemoglobin 29 pg (27-31); Mean Corpuscular Volume 94 fL (80-97); Mean Platelet Volume 8.1 fL (7.4-10.4); Platelet Count 187 10^3/uL (150-450); Red Blood Count 4.58 10^6 /uL (3.70-4.87); Red Cell Distribution Width 17 % (10-15); White Blood Count 12.1 10^3/uL (3.5-10.8)
[2020-11-10 10:27] LABS: Calcium 8.7 mg/dL (8.6-10.3); Magnesium 1.9 mg/dL (1.9-2.7)
[2020-11-10 10:29] LABS: ABS Lymphocytes 1.3 10^3/ul (1.0-4.8); ABS Monocytes 0.4 10^3/ul (0-0.8); ABS Neutrophils 10.3 10^3/ul (1.5-7.7); Lymphocyte % 10.6 %; Nucleated Red Blood Cells % 0.1
[2020-11-10 10:33] LABS: EGFR African American 93.9 (>60); EGFR Non-African American 77.6 (>60)
[2020-11-10 11:49] LABS: Potassium 4.8 mmol/L (3.5-5.0)
== END 2020-11-10 12:20 | disposition home or self-care (01) | DRG 720 ==
LOC: ED 12:59 → MED 16:22
PROVIDERS: ADMIT Internal Medicine; ATTEND Internal Medicine

== ENCOUNTER 2021-02-01 03:09 | Inpatient (IN) ==
[2021-02-01] MEDS ORDERED: Morphine 4 MG/ML VIAL (1 ml) IV ONE (03:15)
[2021-02-01] MEDS ORDERED: HYDROmorphone 1 MG/1 ML SYRINGE IV ONE (03:29)
[2021-02-01 04:48] LABS: ABS Lymphocytes 0.9 10^3/ul (1.0-4.8); ABS Monocytes 0.3 10^3/ul (0-0.8); ABS Neutrophils 18.7 10^3/ul (1.5-7.7); Eosinophil % 0.1 %; Hematocrit 43 % (35-47); Hemoglobin 14.2 g/dL (12.0-16.0); Lymphocyte % 4.4 %; Mean Corpuscular HGB Conc 34 g/dL (31-36); Mean Corpuscular Hemoglobin 30 pg (27-31); Mean Corpuscular Volume 90 fL (80-97); Mean Platelet Volume 8.6 fL (7.4-10.4); Platelet Count 302 10^3/uL (150-450); Red Blood Count 4.72 10^6 /uL (3.70-4.87); Red Cell Distribution Width 16 % (10-15); White Blood Count 19.9 10^3/uL (3.5-10.8)
[2021-02-01] MEDS ORDERED: DOXYcycline 100 MG in NS 0.9% 250 ml 250 ML IVPB ONE (04:53)
[2021-02-01] MEDS ORDERED: Albuterol HFA INHALER 8 gm MDI INH PRN (05:05)
[2021-02-01] MEDS ORDERED: Ondansetron ODT 4 mg TAB 4 MG TAB PO PRN (05:05)
[2021-02-01 05:10] LABS: ALT 30 U/L (7-52); AST 38 U/L (13-39); Albumin 4.3 g/dL (3.2-5.2); Albumin/Globulin Ratio 1.1 (1-3); Alkaline Phosphatase 163 U/L (35-149); Anion Gap 8 mmol/L (2-11); Blood Urea Nitrogen 14 mg/dL (6-24); C Reactive Protein 305.26 mg/L (<8.01); CO2 Carbon Dioxide 28 mmol/L (22-32); Calcium 9.8 mg/dL (8.6-10.3); Chloride 99 mmol/L (101-111); EGFR African American 56.7 (>60); EGFR Non-African American 46.8 (>60); Globulin 3.8 g/dL (2-4); Glucose 155 mg/dL (70-100); Magnesium 2.2 mg/dL (1.9-2.7); Potassium 4.7 mmol/L (3.5-5.0); Sodium 135 mmol/L (135-145); Total Protein 8.1 g/dL (6.4-8.9)
[2021-02-01 05:28] LABS: Troponin I 0.04 ng/mL (<0.03)
[2021-02-01 05:43] LABS: Alcohol, S < 13 mg/dL (<10)
[2021-02-01] MEDS ORDERED: HYDROmorphone 0.5 MG/0.5 ML SYRINGE IV ONE (05:45)
[2021-02-01] MEDS: methylPREDNISolone SOD 40 mg/ml 1 ml VIAL IV SCH ×3 (05:58→22:31)
[2021-02-01] MEDS: Enoxaparin 40 MG/0.4 ML SYR SUBCUT SCH (09:47)
[2021-02-01] MEDS: cefTRIAXone 1 gm/50 mL NS BAG 1 GM/50 ML BAG IVPB SCH (09:47)
[2021-02-01] MEDS: DOXYcycline 100 MG in NS 0.9% 250 ml 250 ML IVPB SCH (20:59)
[2021-02-01] MEDS ORDERED: fentaNYL 100 mcg/2 ml 50 MCG/ML VIAL IV SLOW PU ONE (21:19)
[2021-02-02] MEDS: methylPREDNISolone SOD 40 mg/ml 1 ml VIAL IV SCH ×2 (05:56→17:33)
[2021-02-02 06:30] LABS: Hematocrit 39 % (35-47); Hemoglobin 12.9 g/dL (12.0-16.0); Mean Corpuscular HGB Conc 33 g/dL (31-36); Mean Corpuscular Hemoglobin 30 pg (27-31); Mean Corpuscular Volume 89 fL (80-97); Mean Platelet Volume 8.7 fL (7.4-10.4); Platelet Count 295 10^3/uL (150-450); Red Blood Count 4.33 10^6 /uL (3.70-4.87); Red Cell Distribution Width 15 % (10-15); White Blood Count 16.6 10^3/uL (3.5-10.8)
[2021-02-02 06:49] LABS: Albumin 3.4 g/dL (3.2-5.2); Albumin/Globulin Ratio 1.1 (1-3); Calcium 8.7 mg/dL (8.6-10.3); EGFR African American 104.1 (>60); Globulin 3.1 g/dL (2-4); Magnesium 2.1 mg/dL (1.9-2.7); Phosphorus 3.3 mg/dL (2.5-5.0); Potassium 4.5 mmol/L (3.5-5.0); Total Bilirubin 0.3 mg/dL (0.2-1.0); Total Protein 6.5 g/dL (6.4-8.9)
[2021-02-02] MEDS ORDERED: Ondansetron 4 mg VIAL 2 MG/ML 2 ml VIAL ONE (08:14)
[2021-02-02] MEDS: Enoxaparin 40 MG/0.4 ML SYR SUBCUT SCH ×2 (08:17→08:18)
[2021-02-02] MEDS: DOXYcycline 100 MG in NS 0.9% 250 ml 250 ML IVPB SCH (09:00)
[2021-02-02] MEDS: cefTRIAXone 1 gm/50 mL NS BAG 1 GM/50 ML BAG IVPB SCH (10:25)
[2021-02-02] MEDS ORDERED: Ondansetron 4 mg VIAL 2 MG/ML 2 ml VIAL IV PRN (10:53)
[2021-02-03] MEDS: methylPREDNISolone SOD 40 mg/ml 1 ml VIAL IV SCH (05:59)
[2021-02-03] MEDS: Enoxaparin 40 MG/0.4 ML SYR SUBCUT SCH (09:42)
[2021-02-03 09:55] VITALS: BP 130/81
== END 2021-02-03 11:23 | disposition left against medical advice (07) | DRG 142 ==
LOC: ED 03:09 → ICU 04:23 → MEDTELE 02-02 19:04
PROVIDERS: ADMIT Internal Medicine; ATTEND Student in an Organized Health Care Education/Training Program

== ENCOUNTER 2021-09-21 23:32 | Inpatient (IN) ==
[2021-09-21] MEDS ORDERED: methylPREDNISolone 125 mg 2 ML VIAL IV ONE (23:43)
[2021-09-22 00:12] LABS: Hematocrit 37 % (35-47); Hemoglobin 12.1 g/dL (12.0-16.0); Mean Corpuscular HGB Conc 33 g/dL (31-36); Mean Corpuscular Hemoglobin 30 pg (27-31); Mean Corpuscular Volume 89 fL (80-97); Mean Platelet Volume 8.6 fL (7.4-10.4); Platelet Count 317 10^3/uL (150-450); Red Blood Count 4.11 10^6 /uL (3.70-4.87); Red Cell Distribution Width 21 % (10-15); White Blood Count 15.7 10^3/uL (3.5-10.8)
[2021-09-22 00:33] LABS: High Sens Troponin Baseline 3 pg/mL (<15)
[2021-09-22 00:40] LABS: ABS Basophils 0.1 10^3/ul (0-0.2); ABS Eosinophils 0.1 10^3/ul (0-0.6); ABS Lymphocytes 1.7 10^3/ul (1.0-4.8); ABS Monocytes 0.9 10^3/ul (0-0.8); ABS Neutrophils 12.9 10^3/ul (1.5-7.7); Eosinophil % 0.7 %; Lymphocyte % 10.9 %; Nucleated Red Blood Cells % 0.1
[2021-09-22 01:01] LABS: ALT 27 U/L (7-52); Albumin 3.6 g/dL (3.2-5.2); Albumin/Globulin Ratio 1.3 (1-3); Alkaline Phosphatase 154 U/L (35-149); Blood Urea Nitrogen 6 mg/dL (6-24); CO2 Carbon Dioxide 25 mmol/L (22-32); Calcium 8.3 mg/dL (8.6-10.3); Chloride 101 mmol/L (101-111); Globulin 2.8 g/dL (2-4); Glucose 86 mg/dL (70-100); Sodium 133 mmol/L (135-145); Total Protein 6.4 g/dL (6.4-8.9); eGFR CKD-EPI 113.2 (>60)
[2021-09-22 01:09] LABS: HCG Pregnancy < 0.60 mIU/mL
[2021-09-22 01:17] LABS: Anion Gap 7 mmol/L (2-11)
[2021-09-22 02:34] LABS: AST Redraw 49 U/L (13-39); Potassium Redraw 4.5 mmol/L (3.5-5.0)
[2021-09-22] MEDS ORDERED: Albuterol/Ipratropium NEB.SOL (2.5/0.5 MG) 3 ML NEB.SOLN INH ONE (03:27)
[2021-09-22] MEDS ORDERED: DOXYcycline 100 MG in NS 0.9% 250 ml 250 ML IVPB ONE (03:31)
[2021-09-22] MEDS ORDERED: NS 0.9% 250 ml 250 ML ONE (03:40)
[2021-09-22] MEDS ORDERED: Ondansetron 4 mg VIAL 2 MG/ML 2 ml VIAL IV PRN (04:31)
[2021-09-22] MEDS ORDERED: Albuterol HFA INHALER 8 gm MDI INH PRN (04:35)
[2021-09-22] MEDS ORDERED: Nicotine Lozenge mini 4 MG LOZNG.MINI MT PRN (04:36)
[2021-09-22] MEDS ORDERED: Nicotine GUM 4MG FRUIT FLAVOR PO PRN (04:37)
[2021-09-22] MEDS ORDERED: Gabapentin 600 mg TAB (NF) PO SCH (05:00)
[2021-09-22 06:43] LABS: Alcohol, S < 13 mg/dL (<13)
[2021-09-22] MEDS: Albuterol/Ipratropium NEB.SOL (2.5/0.5 MG) 3 ML NEB.SOLN INH SCH ×2 (10:26→10:56)
[2021-09-22] MEDS: methylPREDNISolone SOD 40 mg/ml 1 ml VIAL IV SCH ×2 (10:46→16:28)
[2021-09-22] MEDS: Nicotine PATCH 21 MG/24 HR PATCH TRANSDERM PRN (10:53)
[2021-09-22] MEDS: Morphine 4 MG/ML VIAL (1 ml) IV ONE ×2 (12:21→13:14)
[2021-09-22] MEDS: Albuterol HFA INHALER 8 gm MDI INH SCH ×3 (15:36→19:56)
[2021-09-22] MEDS ORDERED: Morphine 2 MG/ML SYRINGE IV ONE (17:29)
[2021-09-22] MEDS ORDERED: Morphine 4 MG/ML VIAL (1 ml) IV ONE (17:29)
[2021-09-22] MEDS: cefTRIAXone 1 gm/50 mL D5W 1 GM/50 ML BAG IV SCH (18:09)
[2021-09-22] MEDS ORDERED: HYDROmorphone 0.5 MG/0.5 ML SYRINGE IV SLOW PU ONE (18:21)
[2021-09-23] MEDS: methylPREDNISolone SOD 40 mg/ml 1 ml VIAL IV SCH ×3 (00:09→16:17)
[2021-09-23] MEDS ORDERED: Morphine 4 MG/ML VIAL (1 ml) IV ONE ×2 (06:07→19:00)
[2021-09-23 06:21] LABS: ABS Basophils 0.1 10^3/ul (0-0.2); ABS Lymphocytes 0.8 10^3/ul (1.0-4.8); ABS Monocytes 1.3 10^3/ul (0-0.8); ABS Neutrophils 19.2 10^3/ul (1.5-7.7); Hematocrit 36 % (35-47); Hemoglobin 11.7 g/dL (12.0-16.0); Lymphocyte % 3.6 %; Mean Corpuscular HGB Conc 33 g/dL (31-36); Mean Corpuscular Hemoglobin 29 pg (27-31); Mean Corpuscular Volume 89 fL (80-97); Mean Platelet Volume 8.3 fL (7.4-10.4); Platelet Count 324 10^3/uL (150-450); Red Blood Count 3.99 10^6 /uL (3.70-4.87); Red Cell Distribution Width 22 % (10-15); White Blood Count 21.4 10^3/uL (3.5-10.8)
[2021-09-23 07:56] LABS: Calcium 8.6 mg/dL (8.6-10.3); Potassium 4.6 mmol/L (3.5-5.0)
[2021-09-23 08:02] LABS: eGFR CKD-EPI 96.9 (>60)
[2021-09-23] MEDS: Albuterol HFA INHALER 8 gm MDI INH SCH ×5 (08:12→22:44)
[2021-09-23] MEDS: Nicotine PATCH 21 MG/24 HR PATCH TRANSDERM PRN (09:07)
[2021-09-23] MEDS: cefTRIAXone 1 gm/50 mL D5W 1 GM/50 ML BAG IV SCH (16:18)
[2021-09-24] MEDS: methylPREDNISolone SOD 40 mg/ml 1 ml VIAL IV SCH ×3 (00:47→18:42)
[2021-09-24 05:33] LABS: Hematocrit 37 % (35-47); Hemoglobin 11.7 g/dL (12.0-16.0); Mean Corpuscular HGB Conc 32 g/dL (31-36); Mean Corpuscular Hemoglobin 29 pg (27-31); Mean Corpuscular Volume 91 fL (80-97); Mean Platelet Volume 8.1 fL (7.4-10.4); Platelet Count 349 10^3/uL (150-450); Red Blood Count 4.03 10^6 /uL (3.70-4.87); Red Cell Distribution Width 22 % (10-15); White Blood Count 17.8 10^3/uL (3.5-10.8)
[2021-09-24 06:15] LABS: Blood Urea Nitrogen 21 mg/dL (6-24); CO2 Carbon Dioxide 23 mmol/L (22-32); Calcium 8.5 mg/dL (8.6-10.3); Chloride 107 mmol/L (101-111); Glucose 136 mg/dL (70-100); Sodium 137 mmol/L (135-145); eGFR CKD-EPI 95.5 (>60)
[2021-09-24 06:20] LABS: Anion Gap 7 mmol/L (2-11)
[2021-09-24] MEDS: Albuterol HFA INHALER 8 gm MDI INH SCH ×2 (07:27→12:59)
[2021-09-24] MEDS ORDERED: Morphine 2 MG/ML SYRINGE IV ONE (09:36)
[2021-09-24 09:47] LABS: Potassium Redraw 4.7 mmol/L (3.5-5.0)
[2021-09-24] MEDS ORDERED: Albuterol HFA INHALER 8 gm MDI INH PRN (16:05)
[2021-09-24 18:17] LABS: Magnesium 2.3 mg/dL (1.9-2.7)
[2021-09-24] MEDS: cefTRIAXone 1 gm/50 mL D5W 1 GM/50 ML BAG IV SCH (18:42)
[2021-09-25] MEDS: methylPREDNISolone SOD 40 mg/ml 1 ml VIAL IV SCH ×3 (00:17→14:30)
[2021-09-25 11:56] VITALS: BP 142/97
[2021-09-25] MEDS ORDERED: Morphine 4 MG/ML VIAL (1 ml) IV ONE (15:00)
== END 2021-09-25 13:50 | disposition home or self-care (01) | DRG 142 ==
LOC: EDHOLD 23:32 → ED 23:32 → SUATTDRO 09-22 04:32 → MED 09-22 05:15
PROVIDERS: ADMIT Internal Medicine; ATTEND Student in an Organized Health Care Education/Training Program

== ENCOUNTER 2021-10-18 01:14 | Inpatient (IN) ==
[2021-10-18] MEDS ORDERED: methylPREDNISolone 125 mg 2 ML VIAL IV ONE (01:39)
[2021-10-18 01:52] LABS: ABS Basophils 0.1 10^3/ul (0-0.2); ABS Lymphocytes 1.3 10^3/ul (1.0-4.8); ABS Monocytes 0.6 10^3/ul (0-0.8); ABS Neutrophils 10.6 10^3/ul (1.5-7.7); Eosinophil % 0.2 %; Hematocrit 34 % (35-47); Mean Corpuscular HGB Conc 32 g/dL (31-36); Mean Corpuscular Hemoglobin 29 pg (27-31); Mean Corpuscular Volume 90 fL (80-97); Mean Platelet Volume 8.4 fL (7.4-10.4); Platelet Count 303 10^3/uL (150-450); Red Blood Count 3.78 10^6 /uL (3.70-4.87); Red Cell Distribution Width 19 % (10-15); White Blood Count 12.5 10^3/uL (3.5-10.8)
[2021-10-18 01:57] LABS: PCO2 Arterial 33 mmHg (35-45); PO2 Arterial 132 mmHg (80-100)
[2021-10-18] MEDS ORDERED: Morphine 4 MG/ML VIAL (1 ml) IV ONE (02:00)
[2021-10-18 02:16] LABS: High Sens Troponin Baseline 16 pg/mL (<15)
[2021-10-18 02:45] LABS: ALT 32 U/L (7-52); Albumin 3.4 g/dL (3.2-5.2); Albumin/Globulin Ratio 1.3 (1-3); Alkaline Phosphatase 172 U/L (35-149); Blood Urea Nitrogen 15 mg/dL (6-24); CO2 Carbon Dioxide 26 mmol/L (22-32); Calcium 8.4 mg/dL (8.6-10.3); Chloride 106 mmol/L (101-111); Globulin 2.6 g/dL (2-4); Glucose 114 mg/dL (70-100); Sodium 140 mmol/L (135-145); eGFR CKD-EPI 75.8 (>60)
[2021-10-18 02:47] LABS: Anion Gap 8 mmol/L (2-11)
[2021-10-18 03:19] LABS: High Sensitivity Troponin 1 Hr 19 pg/mL (<15)
[2021-10-18 03:38] LABS: Potassium Redraw 4.3 mmol/L (3.5-5.0)
[2021-10-18 04:12] LABS: Urine Appearance Clear; Urine Bilirubin Negative (Negative); Urine Blood Negative (Negative); Urine Color Yellow; Urine Glucose Negative (Negative); Urine Ketones Negative (Negative); Urine Nitrite Negative (Negative); Urine Protein 1+(30 mg/dL) (Negative); Urine Specific Gravity 1.018 (1.002-1.030); Urine Urobilinogen Negative (Negative)
[2021-10-18 04:27] LABS: Urine Benzodiazepine Screen None Detected (None Detect); Urine Cannabinoids Screen None Detected (None Detect); Urine Opiates Screen Presumptive Positive (None Detect)
[2021-10-18] MEDS ORDERED: Albuterol 2.5mg/3 ml (0.083%) NEB.SOLN INH PRN (04:28)
[2021-10-18 05:00] LABS: Urine Bacteria Absent (Absent); Urine Red Blood Cell Absent (Absent); Urine Squamous Epithelial Cell Present (Absent); Urine White Blood Cell Trace(0-5/hpf) (Absent)
[2021-10-18] MEDS ORDERED: Albuterol/Ipratropium NEB.SOL (2.5/0.5 MG) 3 ML NEB.SOLN INH ONE (05:07)
[2021-10-18] MEDS ORDERED: DOXYcycline IV 100 MG in NS 0.9% 250 ML IVPB ONE (06:00)
[2021-10-18] MEDS ORDERED: Albuterol/Ipratropium NEB.SOL (2.5/0.5 MG) 3 ML NEB.SOLN INH SCH (07:00)
[2021-10-18] MEDS: Multivitamins/Minerals TAB PO SCH (07:43)
[2021-10-18] MEDS: Nicotine PATCH 21 MG/24 HR PATCH TRANSDERM SCH (07:45)
[2021-10-18] MEDS ORDERED: Furosemide 40 mg/4 ml IV VIAL IV SLOW PU ONE (07:58)
[2021-10-18 09:08] LABS: Total Iron Binding Capacity 413 mcg/dL (250-450); Transferrin 295 mg/dL (203-362)
[2021-10-18] MEDS: methylPREDNISolone SOD 40 mg/ml 1 ml VIAL IV SCH ×2 (09:28→17:31)
[2021-10-18 09:29] LABS: Ferritin 101.7 ng/mL (11-307)
[2021-10-18 09:33] LABS: Vitamin B12 140 pg/mL (180-914)
[2021-10-18] MEDS ORDERED: Albuterol/Ipratropium NEB.SOL (2.5/0.5 MG) 3 ML NEB.SOLN INH PRN (10:52)
[2021-10-18 11:46] LABS: Alcohol, S < 13 mg/dL (<13); Lipase 20 U/L (11.0-82.0)
[2021-10-18] MEDS ORDERED: Morphine 2 MG/ML SYRINGE IV ONE ×2 (12:32→18:08)
[2021-10-18] MEDS: Heparin 5000 UNITS/ML 1 mL VIAL SUBCUT SCH ×2 (13:06→22:27)
[2021-10-18] MEDS: DOXYcycline 100 MG in NS 0.9% 250 ml 250 ML IVPB SCH (17:31)
[2021-10-18] MEDS ORDERED: Morphine 2 MG/ML SYRINGE ONE (18:16)
[2021-10-19] MEDS: methylPREDNISolone SOD 40 mg/ml 1 ml VIAL IV SCH ×3 (02:27→17:27)
[2021-10-19] MEDS: DOXYcycline 100 MG in NS 0.9% 250 ml 250 ML IVPB SCH (05:33)
[2021-10-19] MEDS: Heparin 5000 UNITS/ML 1 mL VIAL SUBCUT SCH ×3 (05:33→21:44)
[2021-10-19 05:40] LABS: ABS Lymphocytes 0.9 10^3/ul (1.0-4.8); ABS Monocytes 0.5 10^3/ul (0-0.8); ABS Neutrophils 8.1 10^3/ul (1.5-7.7); Hematocrit 34 % (35-47); Hemoglobin 11.2 g/dL (12.0-16.0); Lymphocyte % 9.1 %; Mean Corpuscular HGB Conc 33 g/dL (31-36); Mean Corpuscular Hemoglobin 30 pg (27-31); Mean Corpuscular Volume 89 fL (80-97); Mean Platelet Volume 8.1 fL (7.4-10.4); Platelet Count 312 10^3/uL (150-450); Red Blood Count 3.76 10^6 /uL (3.70-4.87); Red Cell Distribution Width 18 % (10-15); White Blood Count 9.6 10^3/uL (3.5-10.8)
[2021-10-19 06:02] LABS: Albumin 3.3 g/dL (3.2-5.2); Albumin/Globulin Ratio 1.3 (1-3); Calcium 8.9 mg/dL (8.6-10.3); Globulin 2.6 g/dL (2-4); Magnesium 2.5 mg/dL (1.9-2.7); Potassium 4.4 mmol/L (3.5-5.0); Total Bilirubin 0.4 mg/dL (0.2-1.0); Total Protein 5.9 g/dL (6.4-8.9); eGFR CKD-EPI 96.9 (>60)
[2021-10-19] MEDS: Multivitamins/Minerals TAB PO SCH (08:35)
[2021-10-19] MEDS: Nicotine PATCH 21 MG/24 HR PATCH TRANSDERM SCH (08:35)
[2021-10-19] MEDS ORDERED: Morphine 2 MG/ML SYRINGE IV ONE ×2 (10:13→16:00)
[2021-10-19] MEDS ORDERED: Iron Sucrose 200 MG in NS 0.9% 100 ml BAG 100 ML IVPB ONE (11:07)
[2021-10-19] MEDS ORDERED: Morphine 2 MG/ML SYRINGE IV PRN (21:00)
[2021-10-19] MEDS: Morphine 2 MG/ML SYRINGE IV PRN (21:43)
[2021-10-20] MEDS: methylPREDNISolone SOD 40 mg/ml 1 ml VIAL IV SCH ×3 (01:30→21:07)
[2021-10-20] MEDS: Heparin 5000 UNITS/ML 1 mL VIAL SUBCUT SCH ×3 (06:14→21:06)
[2021-10-20 07:41] LABS: ABS Lymphocytes 1.1 10^3/ul (1.0-4.8); ABS Monocytes 0.6 10^3/ul (0-0.8); ABS Neutrophils 8.8 10^3/ul (1.5-7.7); Eosinophil % 0.1 %; Hematocrit 37 % (35-47); Hemoglobin 12.3 g/dL (12.0-16.0); Lymphocyte % 10.5 %; Mean Corpuscular HGB Conc 33 g/dL (31-36); Mean Corpuscular Hemoglobin 30 pg (27-31); Mean Corpuscular Volume 90 fL (80-97); Mean Platelet Volume 8.1 fL (7.4-10.4); Platelet Count 397 10^3/uL (150-450); Red Blood Count 4.08 10^6 /uL (3.70-4.87); Red Cell Distribution Width 19 % (10-15); White Blood Count 10.5 10^3/uL (3.5-10.8)
[2021-10-20] MEDS ORDERED: Acetaminophen IV 1 GM/100ML 100 ML IV ONE (07:55)
[2021-10-20 08:01] LABS: Potassium 4.7 mmol/L (3.5-5.0); eGFR CKD-EPI 96.9 (>60)
[2021-10-20] MEDS: Multivitamins/Minerals TAB PO SCH (08:09)
[2021-10-20] MEDS: Nicotine PATCH 21 MG/24 HR PATCH TRANSDERM SCH (08:10)
[2021-10-20] MEDS: Morphine 2 MG/ML SYRINGE IV PRN (08:16)
[2021-10-20] MEDS: Sucralfate 1 gm SUSP 1 GM/10 ML UDC PO SCH ×5 (10:48→21:11)
[2021-10-21] MEDS: Heparin 5000 UNITS/ML 1 mL VIAL SUBCUT SCH (06:07)
[2021-10-21] MEDS ORDERED: Cyanocobalamin INJ 1,000 MCG/ML VIAL 1 ML VIAL IM ONE (07:24)
[2021-10-21 07:55] LABS: Magnesium 2.5 mg/dL (1.9-2.7); Potassium 4.7 mmol/L (3.5-5.0); eGFR CKD-EPI 103.2 (>60)
[2021-10-21] MEDS: Sucralfate 1 gm SUSP 1 GM/10 ML UDC PO SCH ×2 (08:18→12:37)
[2021-10-21] MEDS: Multivitamins/Minerals TAB PO SCH (08:19)
[2021-10-21] MEDS: Nicotine PATCH 21 MG/24 HR PATCH TRANSDERM SCH (08:21)
[2021-10-21] MEDS: methylPREDNISolone SOD 40 mg/ml 1 ml VIAL IV SCH (08:22)
[2021-10-21] MEDS ORDERED: Sulfamethox/Trimethoprim DS TAB 800/160 mg PO SCH (09:00)
[2021-10-21 11:29] VITALS: BP 108/73
== END 2021-10-21 13:30 | disposition home or self-care (01) | DRG 142 ==
LOC: ED 01:14 → EDHOLD 04:20 → SUATTDRO 04:20 → ICU 06:35 → MED 10-19 13:30
PROVIDERS: ADMIT Internal Medicine; ATTEND Hospitalist

== ENCOUNTER 2022-05-13 18:07 | Observation (INO) ==
[2022-05-13] MEDS ORDERED: Naloxone Nasal Spray 4 MG/0.1 ML NASAL.SPR INTRANASAL ONE (19:13)
[2022-05-13 20:06] LABS: ABS Basophils 0.2 10^3/ul (0-0.2); ABS Eosinophils 0.1 10^3/ul (0-0.6); ABS Lymphocytes 1.6 10^3/ul (1.0-4.8); ABS Neutrophils 11.1 10^3/ul (1.5-7.7); Eosinophil % 0.4 %; Hematocrit 37 % (35-47); Hemoglobin 11.2 g/dL (12.0-16.0); Lymphocyte % 11.6 %; Mean Corpuscular HGB Conc 30 g/dL (31-36); Mean Corpuscular Hemoglobin 23 pg (27-31); Mean Corpuscular Volume 77 fL (80-97); Mean Platelet Volume 8.1 fL (7.4-10.4); Platelet Count 368 10^3/uL (150-450); Red Blood Count 4.89 10^6 /uL (3.70-4.87); Red Cell Distribution Width 19 % (10-15)
[2022-05-13 20:47] LABS: Albumin 3.7 g/dL (3.2-5.2); Albumin/Globulin Ratio 1.2 (1-3); Calcium 9.3 mg/dL (8.6-10.3); Potassium 4.6 mmol/L (3.5-5.0); Total Bilirubin 0.4 mg/dL (0.2-1.0); Total Protein 6.7 g/dL (6.4-8.9); eGFR CKD-EPI 59.3 (>60)
[2022-05-13] MEDS ORDERED: Lorazepam PYXIS KEY PRN ×2 (22:07→23:20)
[2022-05-13] MEDS ORDERED: LORazepam 2 mg VIAL 1 ml IV PUSH ONE ×2 (22:07→23:20)
[2022-05-13 22:33] LABS: High Sensitivity Troponin 1 Hr 3 pg/mL (<15)
[2022-05-13] MEDS ORDERED: Lactated Ringers 1000 ml BAG 1,000 ML IV ONE (22:43)
[2022-05-13 22:47] LABS: Acetaminophen < 15 mcg/mL; Alcohol, S < 13 mg/dL (<13); Salicylate < 2.50 mg/dL (<30)
[2022-05-14] MEDS ORDERED: Lorazepam PYXIS KEY PRN ×3 (00:59→06:57)
[2022-05-14] MEDS ORDERED: LORazepam 2 mg VIAL 1 ml IV PUSH PRN ×2 (00:59→02:46)
[2022-05-14 01:39] LABS: C Reactive Protein 15.72 mg/L (<8.01)
[2022-05-14] MEDS ORDERED: Lactated Ringers 1000 ml BAG 1,000 ML IV SCH ×3 (02:00→06:00)
[2022-05-14] MEDS ORDERED: Thiamine 100 MG/ML 2 ml VIAL 500 MG in NS 0.9% 250 ml 250 ML IV ONE (02:03)
[2022-05-14] MEDS: LORazepam 2 mg VIAL 1 ml IV PUSH PRN (05:11)
[2022-05-14 06:37] LABS: ABS Basophils 0.1 10^3/ul (0-0.2); ABS Eosinophils 0.1 10^3/ul (0-0.6); ABS Lymphocytes 2.1 10^3/ul (1.0-4.8); ABS Monocytes 0.9 10^3/ul (0-0.8); Eosinophil % 1.1 %; Hematocrit 32 % (35-47); Hemoglobin 9.9 g/dL (12.0-16.0); Lymphocyte % 20.8 %; Mean Corpuscular HGB Conc 31 g/dL (31-36); Mean Corpuscular Hemoglobin 24 pg (27-31); Mean Corpuscular Volume 78 fL (80-97); Mean Platelet Volume 8.3 fL (7.4-10.4); Platelet Count 308 10^3/uL (150-450); Red Blood Count 4.14 10^6 /uL (3.70-4.87); Red Cell Distribution Width 19 % (10-15); White Blood Count 10.3 10^3/uL (3.5-10.8)
[2022-05-14] MEDS ORDERED: LORazepam 2 mg VIAL 1 ml IV PUSH ONE (06:57)
[2022-05-14 07:07] LABS: Calcium 8.7 mg/dL (8.6-10.3); Potassium 4.1 mmol/L (3.5-5.0); eGFR CKD-EPI 77.7 (>60)
[2022-05-14 07:12] LABS: INR 1.15 (0.89-1.11)
[2022-05-14 09:22] LABS: Urine Appearance Clear; Urine Bilirubin Negative (Negative); Urine Blood Negative (Negative); Urine Color Yellow; Urine Glucose Negative (Negative); Urine Ketones Negative (Negative); Urine Nitrite Negative (Negative); Urine Protein Negative (Negative); Urine Specific Gravity 1.006 (1.002-1.030); Urine Urobilinogen Negative (Negative)
[2022-05-14 09:40] LABS: Urine Benzodiazepine Screen Presumptive Positive (None Detect); Urine Cannabinoids Screen None Detected (None Detect); Urine Opiates Screen None Detected (None Detect)
[2022-05-14 10:22] LABS: TSH Ultra Thyroid Stim Horm 4.96 mcIU/mL (0.34-5.60)
[2022-05-15 06:08] LABS: ABS Basophils 0.1 10^3/ul (0-0.2); ABS Eosinophils 0.2 10^3/ul (0-0.6); ABS Lymphocytes 2.4 10^3/ul (1.0-4.8); ABS Monocytes 0.8 10^3/ul (0-0.8); ABS Neutrophils 3.7 10^3/ul (1.5-7.7); Eosinophil % 2.3 %; Hematocrit 31 % (35-47); Hemoglobin 9.4 g/dL (12.0-16.0); Lymphocyte % 33.8 %; Mean Corpuscular HGB Conc 30 g/dL (31-36); Mean Corpuscular Hemoglobin 23 pg (27-31); Mean Corpuscular Volume 77 fL (80-97); Mean Platelet Volume 8.8 fL (7.4-10.4); Nucleated Red Blood Cells % 0.1; Platelet Count 296 10^3/uL (150-450); Red Blood Count 4.06 10^6 /uL (3.70-4.87); Red Cell Distribution Width 19 % (10-15); White Blood Count 7.2 10^3/uL (3.5-10.8)
[2022-05-15 06:29] LABS: Calcium 8.5 mg/dL (8.6-10.3); Magnesium 2.1 mg/dL (1.9-2.7); eGFR CKD-EPI 79.7 (>60)
[2022-05-15] MEDS ORDERED: Albuterol HFA INHALER 8 gm MDI INH PRN (08:30)
[2022-05-15] MEDS: LORazepam 2 mg VIAL 1 ml IV PUSH PRN ×2 (12:47→16:00)
[2022-05-15] MEDS: Nicotine PATCH 14 MG/24 HR PATCH TRANSDERM SCH (19:32)
[2022-05-16] MEDS: Nicotine PATCH 14 MG/24 HR PATCH TRANSDERM SCH (09:33)
[2022-05-16 12:43] VITALS: BP 100/79
== END 2022-05-16 16:15 | disposition home or self-care (01) ==
LOC: EDHOLD 18:07 → ED 18:07 → SUATTDRO 05-14 00:54 → MEDTELE 05-14 16:02
PROVIDERS: ADMIT Internal Medicine; ATTEND Internal Medicine

== ENCOUNTER 2022-12-22 23:32 | Observation (INO) ==
[2022-12-23 00:29] LABS: Hematocrit 27.2 % (35-45); Hemoglobin 8.2 g/dL (11.5-14.3); Mean Corpuscular Hemoglobin 18.3 pg (27-33); Mean Corpuscular Hgb Conc 29.9 g/dL (31-36); Mean Platelet Volume 8.5 fL (7.5-11.2); Platelet Count 322 10^3/uL (150-450); Red Blood Count 4.46 10^6/uL (3.63-4.92); Red Cell Distribution Width 20.1 % (12-17); White Blood Count 9.2 10^3/uL (3.8-11.8)
[2022-12-23 00:45] LABS: ALT 25 U/L (7-52); AST 41 U/L (13-39); Albumin/Globulin Ratio 1.2 (1-3); Alkaline Phosphatase 109 U/L (35-149); Anion Gap 12 mmol/L (2-16); Blood Urea Nitrogen 4 mg/dL (6-24); CO2 Carbon Dioxide 21 mmol/L (22-32); Calcium 9.1 mg/dL (8.6-10.3); Chloride 108 mmol/L (101-111); Creatinine, Serum 0.75 mg/dL (0.51-0.95); Globulin 3.4 g/dL (2-4); Glucose 104 mg/dL (70-100); Potassium 3.6 mmol/L (3.5-5.0); Sodium 141 mmol/L (135-145); Total Protein 7.4 g/dL (6.4-8.9); eGFR CKD-EPI 102.5 (>60)
[2022-12-23 00:47] LABS: Hypochromasia 1+; Macrocytosis 1+; Microcytosis 2+; Polychromasia 1+
[2022-12-23 00:48] LABS: ABS Basophils 0.1 10^3/uL (0.0-0.1); ABS Eosinophils 0.2 10^3/uL (0.0-0.5); ABS Lymphocytes 3.1 10^3/uL (1.0-4.8); ABS Monocytes 0.6 10^3/uL (0.0-0.9); ABS Neutrophils 5.1 10^3/uL (1.5-7.6); ABS Nucleated RBC 0.02 10^3/ul; Eosinophil % 2.3 %; Nucleated Red Blood Cells % 0.2 /100 WBC (0.0-0.4)
[2022-12-23 00:52] LABS: HCG Pregnancy < 0.60 mIU/mL
[2022-12-23 01:12] LABS: Acetaminophen < 15 mcg/mL; Alcohol, S 188 mg/dL (<13); Salicylate < 2.50 mg/dL (<30)
[2022-12-23 01:28] LABS: TSH Ultra Thyroid Stim Horm 3.66 mcIU/mL (0.34-5.60)
[2022-12-23] MEDS ORDERED: NS 0.9% 1000 ml BAG 1,000 ML IV ONE (03:24)
[2022-12-23 04:27] LABS: % Iron Saturation 3 % (15-55); .Transferrin 441 mg/dL (203-362); Iron < 20 ug/dL (50-212); Total Iron Binding Capacity 617 mcg/dL (250-450); Unsaturated Iron Binding 597 ug/dL
[2022-12-23 04:48] LABS: Ferritin 6.8 ng/mL (11-307)
[2022-12-23] MEDS ORDERED: Albuterol HFA INHALER 8 gm MDI INH PRN (05:52)
[2022-12-23] MEDS ORDERED: Enoxaparin 40 MG/0.4 ML SYR SUBCUT SCH (06:30)
[2022-12-23 12:16] LABS: Activated Partial Thrombo Time 23.4 seconds (26.0-38.0); INR 1.08 (0.88-1.18)
[2022-12-23 15:47] VITALS: BP 102/70
== END 2022-12-23 16:12 | disposition home or self-care (01) ==
LOC: EDHOLD 23:32 → ED 23:32 → SUATTDRO 12-23 03:33 → EDHOLD 12-23 09:45 → MEDTELE 12-23 11:12
PROVIDERS: ADMIT Internal Medicine; ATTEND Internal Medicine

== ENCOUNTER 2023-02-16 23:52 | Inpatient (IN) ==
[2023-02-17] MEDS ORDERED: Albuterol/Ipratropium NEB.SOL (2.5/0.5 MG) 3 ML NEB.SOLN INH ONE (00:10)
[2023-02-17] MEDS ORDERED: Ondansetron ODT 4 mg TAB 4 MG TAB SL STA (00:15)
[2023-02-17 01:17] LABS: PCO2 Arterial 45 mmHg (35-45)
[2023-02-17 01:22] LABS: PO2 Arterial < 38 mmHg (80-100)
[2023-02-17] MEDS ORDERED: Albuterol (2.5 MG) 0.5 % CONC 0.5 ML NEB.SOLN INH ONE (01:25)
[2023-02-17] MEDS ORDERED: Dexamethasone IV 4 MG/ML VIAL 1 ml VIAL IV SLOW PU ONE (01:33)
[2023-02-17] MEDS ORDERED: Ondansetron 4 mg VIAL 2 MG/ML 2 ml VIAL IV ONE (01:34)
[2023-02-17 02:54] LABS: PCO2 Arterial 41 mmHg (35-45); PO2 Arterial 70 mmHg (80-100)
[2023-02-17 03:06] LABS: Hematocrit 27.1 % (35-45); Hemoglobin 7.9 g/dL (11.5-14.3); Mean Corpuscular Hemoglobin 19.2 pg (27-33); Mean Corpuscular Hgb Conc 29.3 g/dL (31-36); Mean Corpuscular Volume 65.7 fL (80-97); Platelet Count 249 10^3/uL (150-450); Red Blood Count 4.12 10^6/uL (3.63-4.92); Red Cell Distribution Width 21.3 % (12-17); White Blood Count 24.7 10^3/uL (3.8-11.8)
[2023-02-17] MEDS ORDERED: Cefepime 2 GM in Dextrose 2 GM/50 ML BAG IV ONE (03:10)
[2023-02-17 03:21] LABS: ABS Basophils 0.1 10^3/uL (0.0-0.1); ABS Lymphocytes 1.6 10^3/uL (1.0-4.8); ABS Monocytes 1.4 10^3/uL (0.0-0.9); ABS Neutrophils 21.7 10^3/uL (1.5-7.6); ABS Nucleated RBC 0.02 10^3/ul; Albumin 3.8 g/dL (3.2-5.2); Albumin/Globulin Ratio 1.2 (1-3); Anion Gap 11 mmol/L (2-16); Blood Urea Nitrogen 26 mg/dL (6-24); CO2 Carbon Dioxide 25 mmol/L (22-32); Calcium 8.2 mg/dL (8.6-10.3); Chloride 94 mmol/L (101-111); Globulin 3.3 g/dL (2-4); Glucose 154 mg/dL (70-100); Lymphocyte % 6.5 %; Magnesium 2.1 mg/dL (1.9-2.7); Nucleated Red Blood Cells % 0.1 /100 WBC (0.0-0.4); Potassium 5.6 mmol/L (3.5-5.0); Sodium 130 mmol/L (135-145); Total Protein 7.1 g/dL (6.4-8.9); eGFR CKD-EPI 38.4 (>60)
[2023-02-17 03:22] LABS: Alkaline Phosphatase 119 U/L (35-149)
[2023-02-17 03:27] LABS: High Sens Troponin Baseline 241 pg/mL (<15)
[2023-02-17 03:29] LABS: HCG Pregnancy < 0.60 mIU/mL
[2023-02-17 03:42] LABS: ALT 895 U/L (7-52); AST 4282 U/L (13-39)
[2023-02-17] MEDS ORDERED: Furosemide 40 mg/4 ml IV VIAL IV SLOW PU ONE (04:08)
[2023-02-17] MEDS ORDERED: Ondansetron 4 mg VIAL 2 MG/ML 2 ml VIAL IV PRN (04:47)
[2023-02-17 04:51] LABS: High Sensitivity Troponin 1 Hr 203 pg/mL (<15)
[2023-02-17] MEDS: Albuterol/Ipratropium NEB.SOL (2.5/0.5 MG) 3 ML NEB.SOLN INH SCH ×2 (05:16→11:33)
[2023-02-17] MEDS: DOXYcycline 100 MG in NS 0.9% 250 ml 250 ML IVPB SCH (05:21)
[2023-02-17] MEDS: methylPREDNISolone SOD SUCC 40 mg/ml 1 ml VIAL IV SCH ×3 (05:21→20:35)
[2023-02-17] MEDS: Heparin 5000 UNITS/ML 1 mL VIAL SUBCUT SCH ×3 (05:22→20:38)
[2023-02-17 05:44] LABS: INR 1.63 (0.83-1.13)
[2023-02-17] MEDS ORDERED: LORazepam 2 mg VIAL 1 ml IV PUSH SCH (06:00)
[2023-02-17 06:46] LABS: Hepatitis B Surface Antigen Nonreactive (Nonreactive)
[2023-02-17 06:49] LABS: Urine Appearance Cloudy; Urine Bilirubin Negative (Negative); Urine Blood 2+ (Negative); Urine Color Yellow; Urine Glucose Negative (Negative); Urine Ketones Negative (Negative); Urine Nitrite Negative (Negative); Urine Protein Negative (Negative); Urine Specific Gravity 1.011 (1.002-1.030); Urine Urobilinogen Negative (Negative)
[2023-02-17 06:51] LABS: Hepatitis A Ab IgM Negative (Negative)
[2023-02-17 06:51] LABS: Urine Bacteria Absent (Absent); Urine Red Blood Cell Trace(0-2/hpf) (Absent); Urine Squamous Epithelial Cell Present (Absent); Urine White Blood Cell 3+(>20/hpf) (Absent)
[2023-02-17 06:52] LABS: Hepatitis B Core IgM Nonreactive (Nonreactive)
[2023-02-17 07:04] LABS: Hepatitis C Antibody Negative (Negative)
[2023-02-17 07:07] LABS: Urine Benzodiazepine Screen Presumptive Positive (None Detect); Urine Cannabinoids Screen None Detected (None Detect); Urine Opiates Screen None Detected (None Detect)
[2023-02-17] MEDS ORDERED: Iodixanol (CONTRAST) 320 MG/ML 100 ML SDV IV ONE ×2 (07:17→09:29)
[2023-02-17] MEDS: Multivitamins/Minerals TAB PO SCH ×2 (08:35→08:39)
[2023-02-17] MEDS ORDERED: Acetaminophen IV 1 GM/100ML 1,000 MG/100 ML BAG IV SCH (09:30)
[2023-02-17 09:41] LABS: Creatine Kinase 6374 U/L (10-223)
[2023-02-17] MEDS: HYDROmorphone 0.5 MG/0.5 ML SYRINGE IV SLOW PU PRN ×3 (10:01→22:24)
[2023-02-17] MEDS ORDERED: Cefepime 2 GM in Dextrose 2 GM/50 ML BAG IV SCH (11:30)
[2023-02-17] MEDS: Famotidine IV 10 MG/ML 2 ml VIAL (20 mg) IV SLOW PU SCH (14:54)
[2023-02-17] MEDS ORDERED: Lactated Ringers 1000 ml BAG 1,000 ML IV SCH (15:00)
[2023-02-17] MEDS: Cefepime 2 GM in Dextrose 2 GM/50 ML BAG IV SCH (15:11)
[2023-02-17 15:14] LABS: ABS Lymphocytes 1.2 10^3/uL (1.0-4.8); ABS Monocytes 0.5 10^3/uL (0.0-0.9); ABS Neutrophils 19.1 10^3/uL (1.5-7.6); ABS Nucleated RBC 0.02 10^3/ul; Hematocrit 26.3 % (35-45); Hemoglobin 7.8 g/dL (11.5-14.3); Mean Corpuscular Hemoglobin 19.2 pg (27-33); Mean Corpuscular Hgb Conc 29.7 g/dL (31-36); Mean Corpuscular Volume 64.6 fL (80-97); Mean Platelet Volume 8.9 fL (7.5-11.2); Nucleated Red Blood Cells % 0.1 /100 WBC (0.0-0.4); Platelet Count 229 10^3/uL (150-450); Red Blood Count 4.08 10^6/uL (3.63-4.92); Red Cell Distribution Width 21.1 % (12-17); White Blood Count 20.9 10^3/uL (3.8-11.8)
[2023-02-17 15:37] LABS: Albumin 3.7 g/dL (3.2-5.2); Albumin/Globulin Ratio 1.1 (1-3); C Reactive Protein 266.11 mg/L (<8.01); Calcium 8.2 mg/dL (8.6-10.3); Creatinine, Serum 1.02 mg/dL (0.51-0.95); Globulin 3.3 g/dL (2-4); Potassium 5.4 mmol/L (3.5-5.0); Total Bilirubin 1.1 mg/dL (0.2-1.0); eGFR CKD-EPI 70.9 (>60)
[2023-02-17] MEDS ORDERED: Nicotine GUM 4MG FRUIT FLAVOR PO PRN (16:56)
[2023-02-17] MEDS: LORazepam 2 mg VIAL 1 ml IV PUSH SCH (22:23)
[2023-02-17] MEDS ORDERED: Lorazepam PYXIS KEY PRN (22:27)
[2023-02-17] MEDS ORDERED: Haloperidol 5 mg/ml SDV IV/IM 5 MG/ML AMP ONE (23:29)
[2023-02-18] MEDS ORDERED: LORazepam 2 mg VIAL 1 ml IM ONE (00:57)
[2023-02-18] MEDS ORDERED: Midazolam 2 mg/2 ml VIAL 1 mg/ml 2 ml VIAL (2 mg) IM ONE (00:57)
[2023-02-18] MEDS ORDERED: Lorazepam PYXIS KEY PRN (00:57)
[2023-02-18] MEDS ORDERED: Haloperidol 5 mg/ml SDV IV/IM 5 MG/ML AMP IM ONE (00:57)
[2023-02-18] MEDS ORDERED: Midazolam 2 mg/2 ml VIAL 1 mg/ml 2 ml VIAL (2 mg) ONE ×2 (01:04→22:31)
[2023-02-18] MEDS: Dexmedetomidine 1,000 MCG in NS 0.9% 250 ml 240 ML IV SCH ×2 (01:30→15:22)
[2023-02-18 01:53] LABS: PCO2 Arterial 41 mmHg (35-45); PO2 Arterial 121 mmHg (80-100)
[2023-02-18 01:54] LABS: ABS Lymphocytes 1.5 10^3/uL (1.0-4.8); ABS Monocytes 0.6 10^3/uL (0.0-0.9); ABS Neutrophils 14.4 10^3/uL (1.5-7.6); ABS Nucleated RBC 0.06 10^3/ul; Hemoglobin 7.2 g/dL (11.5-14.3); Mean Corpuscular Hemoglobin 19.5 pg (27-33); Mean Corpuscular Hgb Conc 29.9 g/dL (31-36); Mean Platelet Volume 9.3 fL (7.5-11.2); Nucleated Red Blood Cells % 0.4 /100 WBC (0.0-0.4); Platelet Count 220 10^3/uL (150-450); Red Blood Count 3.69 10^6/uL (3.63-4.92); White Blood Count 16.5 10^3/uL (3.8-11.8)
[2023-02-18] MEDS: DOXYcycline 100 MG in NS 0.9% 250 ml 250 ML IVPB SCH ×4 (01:57→20:53)
[2023-02-18] MEDS ORDERED: HYDROmorphone 0.5 MG/0.5 ML SYRINGE IV ONE (02:00)
[2023-02-18 02:01] LABS: Albumin 3.5 g/dL (3.2-5.2); Albumin/Globulin Ratio 1.2 (1-3); Calcium 8.3 mg/dL (8.6-10.3); Creatinine, Serum 0.79 mg/dL (0.51-0.95); Magnesium 2.1 mg/dL (1.9-2.7); Potassium 4.7 mmol/L (3.5-5.0); Total Bilirubin 0.8 mg/dL (0.2-1.0); Total Protein 6.5 g/dL (6.4-8.9); eGFR CKD-EPI 96.3 (>60)
[2023-02-18] MEDS: Cefepime 2 GM in Dextrose 2 GM/50 ML BAG IV SCH (03:08)
[2023-02-18] MEDS: methylPREDNISolone SOD SUCC 40 mg/ml 1 ml VIAL IV SCH ×3 (05:40→20:52)
[2023-02-18] MEDS: Heparin 5000 UNITS/ML 1 mL VIAL SUBCUT SCH ×3 (05:40→20:52)
[2023-02-18 06:10] LABS: ABS Basophils 0.1 10^3/uL (0.0-0.1); ABS Lymphocytes 1.6 10^3/uL (1.0-4.8); ABS Monocytes 0.9 10^3/uL (0.0-0.9); ABS Neutrophils 15.5 10^3/uL (1.5-7.6); ABS Nucleated RBC 0.04 10^3/ul; Hemoglobin 7.4 g/dL (11.5-14.3); Lymphocyte % 8.7 %; Mean Corpuscular Hemoglobin 19.2 pg (27-33); Mean Corpuscular Hgb Conc 29.5 g/dL (31-36); Mean Platelet Volume 9.3 fL (7.5-11.2); Nucleated Red Blood Cells % 0.2 /100 WBC (0.0-0.4); Platelet Count 208 10^3/uL (150-450); Red Blood Count 3.85 10^6/uL (3.63-4.92); Red Cell Distribution Width 21.4 % (12-17)
[2023-02-18 06:13] LABS: Albumin 3.2 g/dL (3.2-5.2); Albumin/Globulin Ratio 1.1 (1-3); C Reactive Protein 158.85 mg/L (<8.01); Calcium 7.6 mg/dL (8.6-10.3); Creatinine, Serum 0.72 mg/dL (0.51-0.95); Magnesium 2.4 mg/dL (1.9-2.7); Potassium 5.5 mmol/L (3.5-5.0); Total Bilirubin 0.7 mg/dL (0.2-1.0); Total Protein 6.2 g/dL (6.4-8.9); eGFR CKD-EPI 107.7 (>60)
[2023-02-18] MEDS: Famotidine IV 10 MG/ML 2 ml VIAL (20 mg) IV SLOW PU SCH (08:29)
[2023-02-18] MEDS: Nicotine PATCH 21 MG/24 HR PATCH TRANSDERM SCH (08:42)
[2023-02-18] MEDS: Multivitamins/Minerals TAB PO SCH (08:43)
[2023-02-18] MEDS ORDERED: LORazepam 2 mg VIAL 1 ml ONE (09:48)
[2023-02-18] MEDS ORDERED: Piperacillin/Tazobac 3.375 BAG 3.375 GM/100 ML BAG IV ONE (10:18)
[2023-02-18] MEDS ORDERED: Zosyn per Pharmacy NOTE FOLLOW UP SCH (11:00)
[2023-02-18] MEDS: Midazolam 50 MG PREMIX IV DRIP 50 ML IV SCH ×5 (15:52→23:15)
[2023-02-18] MEDS: ZOSYN 3.375 GM Q8H per EXTENDED INFUSION IV SCH ×2 (16:31→17:32)
[2023-02-18 20:02] LABS: PCO2 Arterial 40 mmHg (35-45); PO2 Arterial 146 mmHg (80-100)
[2023-02-18] MEDS: ZOSYN 3.375 GM x ONE DOSE over 30 miuntes IV ×2 (20:18→20:58)
[2023-02-18] MEDS: LORazepam 2 mg VIAL 1 ml IV PUSH SCH (20:52)
[2023-02-18] MEDS ORDERED: Etomidate 20 mg/10 ml 2 MG/ML 10 ml VIAL IV ONE (21:44)
[2023-02-18] MEDS ORDERED: Rocuronium 50 mg VIAL 10 mg/ml 5 ml VIAL (50 mg) IV ONE (21:44)
[2023-02-18] MEDS ORDERED: Rocuronium 50 mg VIAL 10 mg/ml 5 ml VIAL (50 mg) ONE ×3 (21:46→21:59)
[2023-02-18] MEDS ORDERED: Etomidate 40 mg/20 ml (2 MG/ML) 20 ml VIAL (40 mg) ONE ×2 (21:59)
[2023-02-18] MEDS ORDERED: Midazolam 2 mg/2 ml VIAL 1 mg/ml 2 ml VIAL (2 mg) IV SLOW PU ONE (22:29)
[2023-02-18] MEDS ORDERED: Albuterol/Ipratropium NEB.SOL (2.5/0.5 MG) 3 ML NEB.SOLN ONE (22:40)
[2023-02-18] MEDS: Albuterol/Ipratropium NEB.SOL (2.5/0.5 MG) 3 ML NEB.SOLN INH PRN (22:58)
[2023-02-18] MEDS ORDERED: Midazolam 5 mg/5 ml VIAL 1 mg/ml 5 ml VIAL (5 mg) IV SLOW PU ONE (23:17)
[2023-02-18] MEDS ORDERED: fentaNYL 100 mcg/2 ml 50 MCG/ML VIAL ONE (23:18)
[2023-02-18] MEDS ORDERED: Midazolam 10 mg/10 ml VIAL 1 mg/ml 10 ml VIAL (10 mg) ONE (23:18)
[2023-02-18] MEDS: fentaNYL 100 mcg/2 ml 50 MCG/ML VIAL IV SLOW PU PRN (23:29)
[2023-02-18] MEDS ORDERED: Dexmedetomidine 1,000 MCG in NS 0.9% 250 ml 240 ML IV SCH (23:45)
[2023-02-18] MEDS ORDERED: Propofol 10 mg/ml 100 ML BTL 1,000 MG/100 ML BTL ONE (23:49)
[2023-02-19] MEDS: Chlorhexidine MOUTHWASH 0.12% 15 ML UDC SWISH SPIT SCH ×7 (00:01→20:57)
[2023-02-19] MEDS: ZOSYN 3.375 GM Q8H per EXTENDED INFUSION IV SCH ×4 (01:27→23:02)
[2023-02-19] MEDS: Midazolam 50 MG PREMIX IV DRIP 50 ML IV SCH ×4 (01:47→19:11)
[2023-02-19] MEDS: Propofol 10 mg/ml 100 ML BTL 1,000 MG/100 ML BTL IV SCH ×4 (05:00→23:40)
[2023-02-19] MEDS: Heparin 5000 UNITS/ML 1 mL VIAL SUBCUT SCH ×3 (05:00→20:57)
[2023-02-19] MEDS: methylPREDNISolone SOD SUCC 40 mg/ml 1 ml VIAL IV SCH ×3 (05:00→20:57)
[2023-02-19 05:07] LABS: Hematocrit 26.5 % (35-45); Mean Corpuscular Hemoglobin 19.7 pg (27-33); Mean Corpuscular Hgb Conc 30.1 g/dL (31-36); Mean Corpuscular Volume 65.4 fL (80-97); Mean Platelet Volume 9.3 fL (7.5-11.2); Platelet Count 234 10^3/uL (150-450); Red Blood Count 4.05 10^6/uL (3.63-4.92); Red Cell Distribution Width 21.4 % (12-17); White Blood Count 16.7 10^3/uL (3.8-11.8)
[2023-02-19 05:21] LABS: Albumin 3.5 g/dL (3.2-5.2); Albumin/Globulin Ratio 1.2 (1-3); Creatinine, Serum 0.73 mg/dL (0.51-0.95); Magnesium 2.5 mg/dL (1.9-2.7); Phosphorus 2.3 mg/dL (2.5-5.0); Potassium 4.4 mmol/L (3.5-5.0); Total Bilirubin 0.8 mg/dL (0.2-1.0); Total Protein 6.5 g/dL (6.4-8.9); eGFR CKD-EPI 105.9 (>60)
[2023-02-19 05:50] LABS: ABS Basophils 0.1 10^3/uL (0.0-0.1); ABS Lymphocytes 1.5 10^3/uL (1.0-4.8); ABS Neutrophils 14.1 10^3/uL (1.5-7.6); ABS Nucleated RBC 0.15 10^3/ul; Eosinophil % 0.1 %; Lymphocyte % 9.1 %; Nucleated Red Blood Cells % 0.9 /100 WBC (0.0-0.4)
[2023-02-19] MEDS ORDERED: Dextrose 50% Syringe 50 ml 25 GM/50 ML SYRINGE IV PUSH PRN (06:43)
[2023-02-19] MEDS: Nicotine PATCH 21 MG/24 HR PATCH TRANSDERM SCH (07:52)
[2023-02-19] MEDS: fentaNYL 100 mcg/2 ml 50 MCG/ML VIAL IV SLOW PU PRN ×4 (08:00→10:11)
[2023-02-19] MEDS: Famotidine IV 10 MG/ML 2 ml VIAL (20 mg) IV SLOW PU SCH (08:31)
[2023-02-19] MEDS: Multivitamins/Minerals TAB PO SCH (08:31)
[2023-02-19] MEDS: DOXYcycline 100 MG in NS 0.9% 250 ml 250 ML IVPB SCH ×2 (08:53→21:25)
[2023-02-19] MEDS ORDERED: fentaNYL 100 mcg/2 ml 50 MCG/ML VIAL IV SLOW PU ONE (10:29)
[2023-02-19] MEDS: fentaNYL INFUSION 50 mcg/mL VL 2,500 MCG/50 ML VIAL IV SCH (10:37)
[2023-02-19 21:46] LABS: Cyclic Citrullinated Pept IgG <15.6 U
[2023-02-20] MEDS: Midazolam 50 MG PREMIX IV DRIP 50 ML IV SCH ×5 (00:52→22:41)
[2023-02-20] MEDS: Chlorhexidine MOUTHWASH 0.12% 15 ML UDC SWISH SPIT SCH ×6 (00:59→20:57)
[2023-02-20] MEDS: Heparin 5000 UNITS/ML 1 mL VIAL SUBCUT SCH ×3 (04:09→20:57)
[2023-02-20] MEDS: methylPREDNISolone SOD SUCC 40 mg/ml 1 ml VIAL IV SCH ×3 (04:09→20:57)
[2023-02-20 04:19] LABS: Hematocrit 25.1 % (35-45); Hemoglobin 7.4 g/dL (11.5-14.3); Mean Corpuscular Hemoglobin 19.4 pg (27-33); Mean Corpuscular Hgb Conc 29.5 g/dL (31-36); Mean Corpuscular Volume 65.7 fL (80-97); Mean Platelet Volume 8.9 fL (7.5-11.2); Platelet Count 250 10^3/uL (150-450); Red Blood Count 3.82 10^6/uL (3.63-4.92); Red Cell Distribution Width 22.3 % (12-17); White Blood Count 15.9 10^3/uL (3.8-11.8)
[2023-02-20 04:47] LABS: Calcium 7.4 mg/dL (8.6-10.3); Creatinine, Serum 0.65 mg/dL (0.51-0.95); Magnesium 2.7 mg/dL (1.9-2.7); Potassium 4.5 mmol/L (3.5-5.0); eGFR CKD-EPI 113.4 (>60)
[2023-02-20 05:03] LABS: Anisocytosis 2+; Hypochromasia 2+; Microcytosis 2+; Polychromasia 1+
[2023-02-20 05:04] LABS: ABS Lymphocytes 1.1 10^3/uL (1.0-4.8); ABS Monocytes 0.9 10^3/uL (0.0-0.9); ABS Neutrophils 13.9 10^3/uL (1.5-7.6); Lymphocyte % 6.8 %; Nucleated Red Blood Cells % 0.7 /100 WBC (0.0-0.4)
[2023-02-20] MEDS: Propofol 10 mg/ml 100 ML BTL 1,000 MG/100 ML BTL IV SCH ×3 (05:17→16:03)
[2023-02-20] MEDS: fentaNYL INFUSION 50 mcg/mL VL 2,500 MCG/50 ML VIAL IV SCH (05:25)
[2023-02-20] MEDS: Nicotine PATCH 21 MG/24 HR PATCH TRANSDERM SCH (09:45)
[2023-02-20] MEDS: Famotidine IV 10 MG/ML 2 ml VIAL (20 mg) IV SLOW PU SCH (09:46)
[2023-02-20] MEDS: Multivitamins/Minerals TAB PO SCH (09:47)
[2023-02-20] MEDS: DOXYcycline 100 MG in NS 0.9% 250 ml 250 ML IVPB SCH ×2 (10:13→20:52)
[2023-02-20] MEDS: ZOSYN 3.375 GM Q8H per EXTENDED INFUSION IV SCH ×2 (11:20→16:09)
[2023-02-20 11:45] LABS: JO-1 Antibody <0.2 U; Scl 70 Ab, IgG, S <0.2 U
[2023-02-20 12:50] LABS: Anti SSA/RO Antibody 0.3 U; SS-B/La Antibody <0.2 U
[2023-02-21] MEDS: ZOSYN 3.375 GM Q8H per EXTENDED INFUSION IV SCH ×2 (00:24→08:29)
[2023-02-21] MEDS: Chlorhexidine MOUTHWASH 0.12% 15 ML UDC SWISH SPIT SCH ×6 (01:26→21:33)
[2023-02-21] MEDS: Propofol 10 mg/ml 100 ML BTL 1,000 MG/100 ML BTL IV SCH ×3 (02:58→21:32)
[2023-02-21 04:40] LABS: ABS Monocytes 1.2 10^3/uL (0.0-0.9); ABS Neutrophils 18.5 10^3/uL (1.5-7.6); ABS Nucleated RBC 0.16 10^3/ul; Eosinophil % 0.1 %; Hematocrit 26.9 % (35-45); Hemoglobin 7.7 g/dL (11.5-14.3); Lymphocyte % 4.7 %; Mean Corpuscular Hemoglobin 19.1 pg (27-33); Mean Corpuscular Hgb Conc 28.6 g/dL (31-36); Mean Corpuscular Volume 66.8 fL (80-97); Mean Platelet Volume 9.5 fL (7.5-11.2); Nucleated Red Blood Cells % 0.8 /100 WBC (0.0-0.4); Platelet Count 311 10^3/uL (150-450); Red Blood Count 4.03 10^6/uL (3.63-4.92); Red Cell Distribution Width 22.8 % (12-17); White Blood Count 20.7 10^3/uL (3.8-11.8)
[2023-02-21 04:55] LABS: Albumin 3.1 g/dL (3.2-5.2); Albumin/Globulin Ratio 1.2 (1-3); C Reactive Protein 20.59 mg/L (<8.01); Calcium 7.7 mg/dL (8.6-10.3); Creatinine, Serum 0.62 mg/dL (0.51-0.95); Globulin 2.6 g/dL (2-4); Magnesium 2.9 mg/dL (1.9-2.7); Phosphorus 1.8 mg/dL (2.5-5.0); Potassium 4.9 mmol/L (3.5-5.0); Total Bilirubin 0.5 mg/dL (0.2-1.0); Total Protein 5.7 g/dL (6.4-8.9); eGFR CKD-EPI 114.7 (>60)
[2023-02-21] MEDS: Midazolam 50 MG PREMIX IV DRIP 50 ML IV SCH ×4 (05:54→22:20)
[2023-02-21] MEDS: methylPREDNISolone SOD SUCC 40 mg/ml 1 ml VIAL IV SCH (06:18)
[2023-02-21] MEDS: Heparin 5000 UNITS/ML 1 mL VIAL SUBCUT SCH ×3 (06:18→21:33)
[2023-02-21] MEDS: fentaNYL INFUSION 50 mcg/mL VL 2,500 MCG/50 ML VIAL IV SCH (08:24)
[2023-02-21] MEDS: Nicotine PATCH 21 MG/24 HR PATCH TRANSDERM SCH (08:33)
[2023-02-21] MEDS: Famotidine IV 10 MG/ML 2 ml VIAL (20 mg) IV SLOW PU SCH (08:50)
[2023-02-21] MEDS: DOXYcycline 100 MG in NS 0.9% 250 ml 250 ML IVPB SCH (08:58)
[2023-02-21] MEDS: Multivitamins/Minerals TAB PO SCH (09:03)
[2023-02-22] MEDS: Chlorhexidine MOUTHWASH 0.12% 15 ML UDC SWISH SPIT SCH ×6 (02:09→22:14)
[2023-02-22] MEDS: Propofol 10 mg/ml 100 ML BTL 1,000 MG/100 ML BTL IV SCH ×3 (04:20→19:21)
[2023-02-22 05:00] LABS: Hematocrit 26.4 % (35-45); Hemoglobin 7.7 g/dL (11.5-14.3); Mean Corpuscular Hemoglobin 19.4 pg (27-33); Mean Corpuscular Volume 66.7 fL (80-97); Mean Platelet Volume 8.7 fL (7.5-11.2); Platelet Count 343 10^3/uL (150-450); Red Blood Count 3.96 10^6/uL (3.63-4.92); Red Cell Distribution Width 22.1 % (12-17); White Blood Count 19.3 10^3/uL (3.8-11.8)
[2023-02-22 05:02] LABS: INR 1.09 (0.83-1.13)
[2023-02-22 05:13] LABS: ALT 208 U/L (7-52); AST 98 U/L (13-39); Albumin/Globulin Ratio 1.3 (1-3); Alkaline Phosphatase 91 U/L (35-149); Anion Gap 2 mmol/L (2-16); Blood Urea Nitrogen 21 mg/dL (6-24); CO2 Carbon Dioxide 31 mmol/L (22-32); Calcium 8.1 mg/dL (8.6-10.3); Chloride 115 mmol/L (101-111); Creatinine, Serum 0.52 mg/dL (0.51-0.95); Globulin 2.4 g/dL (2-4); Glucose 154 mg/dL (70-100); Magnesium 2.7 mg/dL (1.9-2.7); Potassium 4.1 mmol/L (3.5-5.0); Sodium 148 mmol/L (135-145); Total Protein 5.4 g/dL (6.4-8.9); eGFR CKD-EPI 119.6 (>60)
[2023-02-22 05:15] LABS: ABS Basophils 0.2 10^3/uL (0.0-0.1); ABS Eosinophils 0.2 10^3/uL (0.0-0.5); ABS Lymphocytes 3.4 10^3/uL (1.0-4.8); ABS Monocytes 0.9 10^3/uL (0.0-0.9); ABS Neutrophils 14.6 10^3/uL (1.5-7.6); ABS Nucleated RBC 0.08 10^3/ul; Lymphocyte % 17.8 %; Nucleated Red Blood Cells % 0.4 /100 WBC (0.0-0.4)
[2023-02-22 05:33] LABS: Phosphorus < 1.0 mg/dL (2.5-5.0)
[2023-02-22] MEDS: Heparin 5000 UNITS/ML 1 mL VIAL SUBCUT SCH ×3 (05:45→22:14)
[2023-02-22] MEDS ORDERED: POTASSIUM PHOSPHATE IVPB ONE (06:00)
[2023-02-22] MEDS ORDERED: NS 0.9% IVPB ONE (06:00)
[2023-02-22] MEDS: Midazolam 50 MG PREMIX IV DRIP 50 ML IV SCH (07:46)
[2023-02-22] MEDS ORDERED: methylPREDNISolone SOD SUCC 40 mg/ml 1 ml VIAL IV SCH (09:00)
[2023-02-22] MEDS: Famotidine IV 10 MG/ML 2 ml VIAL (20 mg) IV SLOW PU SCH (09:14)
[2023-02-22] MEDS: Nicotine PATCH 21 MG/24 HR PATCH TRANSDERM SCH (09:14)
[2023-02-22] MEDS: Multivitamins/Minerals TAB PO SCH (10:49)
[2023-02-22] MEDS: Midazolam 2 mg/2 ml VIAL 1 mg/ml 2 ml VIAL (2 mg) IV SLOW PU PRN (23:03)
[2023-02-23] MEDS: Propofol 10 mg/ml 100 ML BTL 1,000 MG/100 ML BTL IV SCH ×3 (01:11→13:38)
[2023-02-23] MEDS: Chlorhexidine MOUTHWASH 0.12% 15 ML UDC SWISH SPIT SCH ×6 (01:24→21:13)
[2023-02-23] MEDS: Midazolam 2 mg/2 ml VIAL 1 mg/ml 2 ml VIAL (2 mg) IV SLOW PU PRN ×2 (04:20→23:13)
[2023-02-23 04:50] LABS: Hematocrit 23.9 % (35-45); Hemoglobin 7.1 g/dL (11.5-14.3); Mean Corpuscular Hemoglobin 19.5 pg (27-33); Mean Corpuscular Hgb Conc 29.8 g/dL (31-36); Mean Corpuscular Volume 65.3 fL (80-97); Mean Platelet Volume 8.5 fL (7.5-11.2); Platelet Count 357 10^3/uL (150-450); Red Blood Count 3.66 10^6/uL (3.63-4.92); Red Cell Distribution Width 22.2 % (12-17); White Blood Count 16.9 10^3/uL (3.8-11.8)
[2023-02-23 05:05] LABS: Albumin 2.8 g/dL (3.2-5.2); Albumin/Globulin Ratio 1.2 (1-3); Calcium 7.8 mg/dL (8.6-10.3); Creatinine, Serum 0.48 mg/dL (0.51-0.95); Globulin 2.4 g/dL (2-4); Magnesium 2.5 mg/dL (1.9-2.7); Phosphorus 2.6 mg/dL (2.5-5.0); Total Bilirubin 0.4 mg/dL (0.2-1.0); Total Protein 5.2 g/dL (6.4-8.9)
[2023-02-23] MEDS: Heparin 5000 UNITS/ML 1 mL VIAL SUBCUT SCH (05:59)
[2023-02-23 09:34] LABS: Anisocytosis 2+; Hypochromasia 2+; Microcytosis 3+
[2023-02-23 09:35] LABS: ABS Basophils 0.2 10^3/uL (0.0-0.1); ABS Eosinophils 0.4 10^3/uL (0.0-0.5); ABS Lymphocytes 4.1 10^3/uL (1.0-4.8); ABS Monocytes 0.8 10^3/uL (0.0-0.9); ABS Neutrophils 11.4 10^3/uL (1.5-7.6); ABS Nucleated RBC 0.06 10^3/ul; Eosinophil % 2.4 %; Lymphocyte % 24.5 %; Nucleated Red Blood Cells % 0.3 /100 WBC (0.0-0.4)
[2023-02-23] MEDS: Famotidine IV 10 MG/ML 2 ml VIAL (20 mg) IV SLOW PU SCH (09:44)
[2023-02-23] MEDS: Nicotine PATCH 21 MG/24 HR PATCH TRANSDERM SCH (09:54)
[2023-02-23] MEDS: Multivitamins ADULT w/MIN LIQ 15 ML UDC PO SCH (09:57)
[2023-02-23] MEDS ORDERED: Zosyn per Pharmacy NOTE FOLLOW UP SCH (12:00)
[2023-02-23] MEDS: Enoxaparin 40 MG/0.4 ML SYR SUBCUT SCH (12:18)
[2023-02-23] MEDS ORDERED: ZOSYN 3.375 GM x ONE DOSE over 30 miuntes IV (12:30)
[2023-02-23] MEDS: ZOSYN 3.375 GM Q8H per EXTENDED INFUSION IV SCH (16:16)
[2023-02-23] MEDS ORDERED: Magnesium Hydroxide LIQ 30 ML UDC PO PRN (17:15)
[2023-02-23] MEDS: Polyethylene Glycol 3350 17 GM PACKET PO SCH (21:13)
[2023-02-23] MEDS: Docusate LIQ 100 MG/10 ML UDC PO SCH (21:13)
[2023-02-24] MEDS: ZOSYN 3.375 GM Q8H per EXTENDED INFUSION IV SCH ×3 (00:25→17:51)
[2023-02-24] MEDS: Propofol 10 mg/ml 100 ML BTL 1,000 MG/100 ML BTL IV SCH ×2 (01:25→06:19)
[2023-02-24] MEDS: Chlorhexidine MOUTHWASH 0.12% 15 ML UDC SWISH SPIT SCH ×3 (04:29→09:28)
[2023-02-24 04:39] LABS: ABS Basophils 0.2 10^3/uL (0.0-0.1); ABS Eosinophils 0.6 10^3/uL (0.0-0.5); ABS Lymphocytes 3.2 10^3/uL (1.0-4.8); ABS Monocytes 0.6 10^3/uL (0.0-0.9); ABS Neutrophils 9.3 10^3/uL (1.5-7.6); ABS Nucleated RBC 0.01 10^3/ul; Eosinophil % 4.4 %; Hemoglobin 7.4 g/dL (11.5-14.3); Mean Corpuscular Hemoglobin 19.4 pg (27-33); Mean Corpuscular Hgb Conc 29.7 g/dL (31-36); Mean Corpuscular Volume 65.3 fL (80-97); Mean Platelet Volume 8.6 fL (7.5-11.2); Nucleated Red Blood Cells % 0.1 /100 WBC (0.0-0.4); Platelet Count 362 10^3/uL (150-450); Red Blood Count 3.83 10^6/uL (3.63-4.92); White Blood Count 13.9 10^3/uL (3.8-11.8)
[2023-02-24 04:53] LABS: Creatinine, Serum 0.54 mg/dL (0.51-0.95); Magnesium 2.6 mg/dL (1.9-2.7); Phosphorus 3.4 mg/dL (2.5-5.0); Potassium 4.2 mmol/L (3.5-5.0); eGFR CKD-EPI 118.5 (>60)
[2023-02-24] MEDS: Famotidine IV 10 MG/ML 2 ml VIAL (20 mg) IV SLOW PU SCH (09:28)
[2023-02-24] MEDS: Multivitamins ADULT w/MIN LIQ 15 ML UDC PO SCH (09:28)
[2023-02-24] MEDS: Nicotine PATCH 21 MG/24 HR PATCH TRANSDERM SCH (09:28)
[2023-02-24] MEDS: Polyethylene Glycol 3350 17 GM PACKET PO SCH ×2 (09:31→22:12)
[2023-02-24] MEDS: Docusate LIQ 100 MG/10 ML UDC PO SCH ×2 (09:31→22:12)
[2023-02-24] MEDS ORDERED: fentaNYL 100 mcg/2 ml 50 MCG/ML VIAL IV SLOW PU PRN (10:46)
[2023-02-24] MEDS: Enoxaparin 40 MG/0.4 ML SYR SUBCUT SCH (12:30)
[2023-02-24] MEDS: Albuterol/Ipratropium NEB.SOL (2.5/0.5 MG) 3 ML NEB.SOLN INH PRN (13:03)
[2023-02-24] MEDS ORDERED: EPINEPHrine,Rac 2.25% NEB.SOL 0.5 ML ONE (13:54)
[2023-02-24] MEDS ORDERED: EPINEPHrine,Rac 2.25% NEB.SOL 0.5 ML INH ONE (13:58)
[2023-02-24] MEDS: methylPREDNISolone SOD SUCC 40 mg/ml 1 ml VIAL IV SCH (17:52)
[2023-02-24] MEDS: Miconazole 2% Top Powder BTL TOPICAL SCH ×2 (23:25→23:48)
[2023-02-25] MEDS: ZOSYN 3.375 GM Q8H per EXTENDED INFUSION IV SCH ×3 (01:24→17:01)
[2023-02-25] MEDS ORDERED: Magic MouthWash1-BEN/MAAL/LIDO 180 ML BTL SWISH SWAL PRN (03:19)
[2023-02-25] MEDS ORDERED: diazePAM INJ CARPUJECT 5 MG/ML SYRINGE IV ONE (03:19)
[2023-02-25 05:02] LABS: ABS Basophils 0.1 10^3/uL (0.0-0.1); ABS Eosinophils 0.1 10^3/uL (0.0-0.5); ABS Lymphocytes 2.6 10^3/uL (1.0-4.8); ABS Monocytes 0.8 10^3/uL (0.0-0.9); ABS Neutrophils 12.3 10^3/uL (1.5-7.6); ABS Nucleated RBC 0.02 10^3/ul; Eosinophil % 0.5 %; Hematocrit 25.3 % (35-45); Hemoglobin 7.6 g/dL (11.5-14.3); Lymphocyte % 16.5 %; Mean Corpuscular Hemoglobin 19.5 pg (27-33); Mean Corpuscular Hgb Conc 29.9 g/dL (31-36); Mean Corpuscular Volume 65.2 fL (80-97); Mean Platelet Volume 8.3 fL (7.5-11.2); Nucleated Red Blood Cells % 0.1 /100 WBC (0.0-0.4); Platelet Count 380 10^3/uL (150-450); Red Blood Count 3.89 10^6/uL (3.63-4.92); Red Cell Distribution Width 22.1 % (12-17); White Blood Count 15.9 10^3/uL (3.8-11.8)
[2023-02-25 05:13] LABS: Calcium 8.1 mg/dL (8.6-10.3); Creatinine, Serum 0.51 mg/dL (0.51-0.95); Magnesium 2.4 mg/dL (1.9-2.7); Phosphorus 3.6 mg/dL (2.5-5.0); Potassium 4.4 mmol/L (3.5-5.0); eGFR CKD-EPI 120.2 (>60)
[2023-02-25] MEDS: Polyethylene Glycol 3350 17 GM PACKET PO SCH (07:22)
[2023-02-25] MEDS: Docusate LIQ 100 MG/10 ML UDC PO SCH (08:10)
[2023-02-25] MEDS: Famotidine IV 10 MG/ML 2 ml VIAL (20 mg) IV SLOW PU SCH (08:49)
[2023-02-25] MEDS: Multivitamins ADULT w/MIN LIQ 15 ML UDC PO SCH (08:49)
[2023-02-25] MEDS: methylPREDNISolone SOD SUCC 40 mg/ml 1 ml VIAL IV SCH (08:49)
[2023-02-25] MEDS: Miconazole 2% Top Powder BTL TOPICAL SCH ×2 (09:19→21:48)
[2023-02-25] MEDS ORDERED: Docusate LIQ 100 MG/10 ML UDC PO PRN (10:15)
[2023-02-25] MEDS ORDERED: Polyethylene Glycol 3350 17 GM PACKET PO PRN (10:15)
[2023-02-25] MEDS: Enoxaparin 40 MG/0.4 ML SYR SUBCUT SCH (11:53)
[2023-02-26] MEDS: ZOSYN 3.375 GM Q8H per EXTENDED INFUSION IV SCH ×4 (01:03→23:44)
[2023-02-26 06:52] LABS: ABS Basophils 0.2 10^3/uL (0.0-0.1); ABS Eosinophils 0.3 10^3/uL (0.0-0.5); ABS Lymphocytes 3.6 10^3/uL (1.0-4.8); ABS Monocytes 0.8 10^3/uL (0.0-0.9); ABS Nucleated RBC 0.01 10^3/ul; Eosinophil % 2.1 %; Hematocrit 25.6 % (35-45); Hemoglobin 7.6 g/dL (11.5-14.3); Lymphocyte % 26.2 %; Mean Corpuscular Hemoglobin 19.7 pg (27-33); Mean Corpuscular Hgb Conc 29.7 g/dL (31-36); Mean Corpuscular Volume 66.3 fL (80-97); Mean Platelet Volume 8.8 fL (7.5-11.2); Platelet Count 327 10^3/uL (150-450); Red Blood Count 3.86 10^6/uL (3.63-4.92); Red Cell Distribution Width 22.9 % (12-17); White Blood Count 13.9 10^3/uL (3.8-11.8)
[2023-02-26 07:00] LABS: Calcium 8.1 mg/dL (8.6-10.3); Creatinine, Serum 0.53 mg/dL (0.51-0.95); Magnesium 2.3 mg/dL (1.9-2.7); Phosphorus 3.7 mg/dL (2.5-5.0); Potassium 3.8 mmol/L (3.5-5.0); eGFR CKD-EPI 119.1 (>60)
[2023-02-26] MEDS: Miconazole 2% Top Powder BTL TOPICAL SCH ×2 (08:18→22:06)
[2023-02-26] MEDS: methylPREDNISolone SOD SUCC 40 mg/ml 1 ml VIAL IV SCH (08:46)
[2023-02-26] MEDS: Multivitamins/Minerals TAB PO SCH (08:46)
[2023-02-26] MEDS: Enoxaparin 40 MG/0.4 ML SYR SUBCUT SCH (10:50)
[2023-02-26] MEDS: Acetaminophen IV 1 GM/100ML 1,000 MG/100 ML BAG IV PRN (22:39)
[2023-02-27] MEDS: Multivitamins/Minerals TAB PO SCH (07:35)
[2023-02-27] MEDS: methylPREDNISolone SOD SUCC 40 mg/ml 1 ml VIAL IV SCH (07:36)
[2023-02-27 07:47] LABS: ABS Eosinophils 0.3 10^3/uL (0.0-0.5); ABS Lymphocytes 2.6 10^3/uL (1.0-4.8); ABS Neutrophils 5.9 10^3/uL (1.5-7.6); Eosinophil % 2.6 %; Hematocrit 25.1 % (35-45); Hemoglobin 7.7 g/dL (11.5-14.3); Lymphocyte % 26.5 %; Mean Corpuscular Hemoglobin 20.3 pg (27-33); Mean Corpuscular Hgb Conc 30.7 g/dL (31-36); Mean Corpuscular Volume 66.2 fL (80-97); Mean Platelet Volume 8.3 fL (7.5-11.2); Platelet Count 343 10^3/uL (150-450); Red Blood Count 3.79 10^6/uL (3.63-4.92); Red Cell Distribution Width 22.6 % (12-17); White Blood Count 9.7 10^3/uL (3.8-11.8)
[2023-02-27 07:49] LABS: Creatinine, Serum 0.51 mg/dL (0.51-0.95); Potassium 3.4 mmol/L (3.5-5.0); eGFR CKD-EPI 120.2 (>60)
[2023-02-27] MEDS: Acetaminophen IV 1 GM/100ML 1,000 MG/100 ML BAG IV PRN ×2 (07:51→17:48)
[2023-02-27] MEDS: Miconazole 2% Top Powder BTL TOPICAL SCH ×2 (07:51→21:01)
[2023-02-27] MEDS ORDERED: KCL 20 MEQ/100 ML IVPREMIX 20 MEQ/100 ML BAG IV ONE (08:40)
[2023-02-27] MEDS: Calcium/Vitamin D TAB 250/125 TAB PO SCH ×2 (09:49→19:58)
[2023-02-27] MEDS: Enoxaparin 40 MG/0.4 ML SYR SUBCUT SCH (09:49)
[2023-02-27] MEDS: ZOSYN 3.375 GM Q8H per EXTENDED INFUSION IV SCH (10:00)
[2023-02-27] MEDS ORDERED: Ferric Gluconate IV 125 MG in NS 0.9% 100 ml BAG 100 ML IVPB ONE ×2 (17:19→19:30)
[2023-02-28] MEDS: Acetaminophen IV 1 GM/100ML 1,000 MG/100 ML BAG IV PRN ×2 (09:05→20:23)
[2023-02-28] MEDS: Calcium/Vitamin D TAB 250/125 TAB PO SCH ×2 (09:10→20:24)
[2023-02-28] MEDS: methylPREDNISolone SOD SUCC 40 mg/ml 1 ml VIAL IV SCH (09:10)
[2023-02-28] MEDS: Multivitamins/Minerals TAB PO SCH ×2 (09:11→09:12)
[2023-02-28 10:43] LABS: Calcium 8.4 mg/dL (8.6-10.3); Creatinine, Serum 0.49 mg/dL (0.51-0.95); Potassium 3.4 mmol/L (3.5-5.0); eGFR CKD-EPI 121.4 (>60)
[2023-02-28] MEDS: Miconazole 2% Top Powder BTL TOPICAL SCH ×2 (10:56→22:29)
[2023-02-28] MEDS: Enoxaparin 40 MG/0.4 ML SYR SUBCUT SCH (13:12)
[2023-02-28] MEDS ORDERED: Potassium Chlor 20 meq TAB.ER PO ONE (17:04)
[2023-03-01] MEDS: methylPREDNISolone SOD SUCC 40 mg/ml 1 ml VIAL IV SCH (09:23)
[2023-03-01] MEDS: Acetaminophen IV 1 GM/100ML 1,000 MG/100 ML BAG IV PRN (09:46)
[2023-03-01] MEDS: Miconazole 2% Top Powder BTL TOPICAL SCH (09:50)
[2023-03-01] MEDS: Calcium/Vitamin D TAB 250/125 TAB PO SCH (09:50)
[2023-03-01] MEDS: Enoxaparin 40 MG/0.4 ML SYR SUBCUT SCH (09:50)
[2023-03-01] MEDS: Multivitamins/Minerals TAB PO SCH (09:50)
[2023-03-01 14:43] VITALS: BP 137/93
== END 2023-03-01 15:00 | disposition home or self-care (01) | DRG 133 ==
LOC: ED 23:52 → EDHOLD 02-17 04:41 → SUATTDRO 02-17 04:41 → EDHOLD 02-17 07:58 → ICU 02-17 08:52 → MED 02-27 10:16
PROVIDERS: ADMIT Internal Medicine Critical Care Medicine; ATTEND Hospitalist

== ENCOUNTER 2023-06-29 15:06 | Inpatient (IN) ==
[2023-06-29] MEDS ORDERED: NS 0.9% 1000 ml BAG 1,000 ML IV ONE (15:15)
[2023-06-29] MEDS ORDERED: Ondansetron 4 mg VIAL 2 MG/ML 2 ml VIAL IV ONE (15:17)
[2023-06-29] MEDS ORDERED: Morphine 4 MG/ML VIAL (1 ml) IV ONE (15:17)
[2023-06-29] MEDS ORDERED: Morphine 10 MG/ML VIAL (1 ml) IV ONE (15:17)
[2023-06-29 15:50] LABS: ABS Basophils 0.1 10^3/uL (0.0-0.1); ABS Lymphocytes 1.3 10^3/uL (1.0-4.8); ABS Monocytes 1.1 10^3/uL (0.0-0.9); ABS Neutrophils 10.1 10^3/uL (1.5-7.6); ABS Nucleated RBC 0.02 10^3/ul; Eosinophil % 0.2 %; Hematocrit 42.3 % (35-45); Hemoglobin 13.6 g/dL (11.5-14.3); Lymphocyte % 10.6 %; Mean Corpuscular Hemoglobin 23.6 pg (27-33); Mean Corpuscular Hgb Conc 32.1 g/dL (31-36); Mean Corpuscular Volume 73.4 fL (80-97); Mean Platelet Volume 8.7 fL (7.5-11.2); Nucleated Red Blood Cells % 0.1 %/100WBC (0.0-0.8); Platelet Count 280 10^3/uL (150-450); Red Blood Count 5.76 10^6/uL (3.63-4.92); Red Cell Distribution Width 22.7 % (12-17); White Blood Count 12.7 10^3/uL (3.8-11.8)
[2023-06-29 16:08] LABS: ALT 48 U/L (7-52); Albumin 3.9 g/dL (3.2-5.2); Albumin/Globulin Ratio 0.8 (1-3); Alkaline Phosphatase 171 U/L (35-149); Anion Gap 8 mmol/L (2-16); Blood Urea Nitrogen 5 mg/dL (6-24); C Reactive Protein 28.98 mg/L (<8.01); CO2 Carbon Dioxide 24 mmol/L (22-32); Calcium 8.9 mg/dL (8.6-10.3); Chloride 98 mmol/L (101-111); Creatinine, Serum 0.66 mg/dL (0.51-0.95); Globulin 4.6 g/dL (2-4); Glucose 104 mg/dL (70-100); Lipase 394 U/L (11.0-82.0); Sodium 130 mmol/L (135-145); Total Bilirubin 0.8 mg/dL (0.2-1.0); Total Protein 8.5 g/dL (6.4-8.9); eGFR CKD-EPI 112.9 (>60)
[2023-06-29] MEDS ORDERED: Iohexol 350 (CONTRAST) 500 ML MDV IV ONE (16:20)
[2023-06-29] MEDS: Lactated Ringers 1000 ml BAG 1,000 ML IV ONE (20:38)
[2023-06-29] MEDS: Morphine 2 MG/ML SYRINGE IV PRN (23:15)
[2023-06-30] MEDS ORDERED: Lorazepam PYXIS KEY PRN (00:23)
[2023-06-30] MEDS ORDERED: Senna TAB 8.6 mg TAB PO PRN (00:48)
[2023-06-30] MEDS ORDERED: Polyethylene Glycol 3350 17 GM PACKET PO PRN (00:48)
[2023-06-30] MEDS: Lactated Ringers 1000 ml BAG 1,000 ML IV ONE (02:15)
[2023-06-30] MEDS: Morphine 2 MG/ML SYRINGE IV PRN ×4 (06:30→20:59)
[2023-06-30 06:45] LABS: Hematocrit 35.1 % (35-45); Hemoglobin 10.9 g/dL (11.5-14.3); Mean Corpuscular Hemoglobin 23.6 pg (27-33); Mean Corpuscular Hgb Conc 31.1 g/dL (31-36); Mean Corpuscular Volume 75.8 fL (80-97); Mean Platelet Volume 8.5 fL (7.5-11.2); Platelet Count 231 10^3/uL (150-450); Red Blood Count 4.64 10^6/uL (3.63-4.92); Red Cell Distribution Width 23.1 % (12-17)
[2023-06-30 06:46] LABS: ALT 31 U/L (7-52); Albumin/Globulin Ratio 0.9 (1-3); Alkaline Phosphatase 134 U/L (35-149); Anion Gap 5 mmol/L (2-16); Blood Urea Nitrogen 4 mg/dL (6-24); CO2 Carbon Dioxide 28 mmol/L (22-32); Chloride 104 mmol/L (101-111); Creatinine, Serum 0.62 mg/dL (0.51-0.95); Globulin 3.5 g/dL (2-4); Glucose 76 mg/dL (70-100); Magnesium 2.1 mg/dL (1.9-2.7); Sodium 137 mmol/L (135-145); Total Bilirubin 0.6 mg/dL (0.2-1.0); Total Protein 6.5 g/dL (6.4-8.9); eGFR CKD-EPI 114.7 (>60)
[2023-06-30] MEDS ORDERED: Lactated Ringers 1000 ml BAG 1,000 ML IV SCH ×2 (12:00)
[2023-06-30] MEDS ORDERED: Thiamine 100 MG/ML 2 ml VIAL (200 mg) IM ONE (16:51)
[2023-06-30] MEDS: Multivitamins/Minerals TAB PO SCH (18:18)
[2023-07-01] MEDS: Morphine 2 MG/ML SYRINGE IV PRN ×3 (03:52→15:09)
[2023-07-01 06:48] LABS: ABS Eosinophils 0.2 10^3/uL (0.0-0.5); ABS Lymphocytes 2.1 10^3/uL (1.0-4.8); ABS Monocytes 1.1 10^3/uL (0.0-0.9); ABS Neutrophils 8.2 10^3/uL (1.5-7.6); ABS Nucleated RBC 0.01 10^3/ul; Eosinophil % 1.6 %; Hematocrit 31.3 % (35-45); Hemoglobin 9.7 g/dL (11.5-14.3); Lymphocyte % 17.9 %; Mean Corpuscular Hemoglobin 23.3 pg (27-33); Mean Corpuscular Volume 75.2 fL (80-97); Mean Platelet Volume 8.8 fL (7.5-11.2); Nucleated Red Blood Cells % 0.1 %/100WBC (0.0-0.8); Platelet Count 219 10^3/uL (150-450); Red Blood Count 4.16 10^6/uL (3.63-4.92); Red Cell Distribution Width 23.1 % (12-17); White Blood Count 11.6 10^3/uL (3.8-11.8)
[2023-07-01 07:22] LABS: Calcium 7.8 mg/dL (8.6-10.3); Creatinine, Serum 0.5 mg/dL (0.51-0.95); Potassium 3.5 mmol/L (3.5-5.0); eGFR CKD-EPI 120.8 (>60)
[2023-07-01 07:34] LABS: Potassium Redraw 3.6 mmol/L (3.5-5.0)
[2023-07-01] MEDS: Multivitamins/Minerals TAB PO SCH (08:32)
[2023-07-01 09:29] LABS: % Iron Saturation 7 % (15-55); .Transferrin 198 mg/dL (203-362); Iron < 20 ug/dL (50-212); Total Iron Binding Capacity 277 mcg/dL (250-450); Unsaturated Iron Binding 257 ug/dL
[2023-07-01] MEDS ORDERED: Ferric Gluconate IV 125 MG in NS 0.9% 100 ml BAG 100 ML IVPB ONE (09:37)
[2023-07-01] MEDS: LORazepam 2 mg VIAL 1 ml IV PUSH PRN (09:42)
[2023-07-01 09:46] LABS: Ferritin 23.4 ng/mL (11-307)
[2023-07-02 06:25] LABS: ABS Lymphocytes 0.8 10^3/uL (1.0-4.8); ABS Monocytes 0.5 10^3/uL (0.0-0.9); ABS Neutrophils 11.8 10^3/uL (1.5-7.6); Hemoglobin 10.4 g/dL (11.5-14.3); Lymphocyte % 5.8 %; Mean Corpuscular Hemoglobin 23.1 pg (27-33); Mean Corpuscular Hgb Conc 30.6 g/dL (31-36); Mean Corpuscular Volume 75.7 fL (80-97); Mean Platelet Volume 9.1 fL (7.5-11.2); Platelet Count 249 10^3/uL (150-450); Red Cell Distribution Width 24.2 % (12-17); White Blood Count 13.1 10^3/uL (3.8-11.8)
[2023-07-02 06:42] LABS: Calcium 8.2 mg/dL (8.6-10.3); Creatinine, Serum 0.45 mg/dL (0.51-0.95); Potassium 4.2 mmol/L (3.5-5.0); eGFR CKD-EPI 123.9 (>60)
[2023-07-02] MEDS: Nicotine PATCH 14 MG/24 HR PATCH TRANSDERM SCH ×2 (09:24→23:03)
[2023-07-02] MEDS: Multivitamins/Minerals TAB PO SCH ×2 (09:25→09:29)
[2023-07-02] MEDS: Albuterol HFA INHALER 8 gm MDI INH PRN ×2 (09:53→15:29)
[2023-07-02] MEDS ORDERED: Morphine 2 MG/ML SYRINGE IV ONE (13:02)
[2023-07-02] MEDS ORDERED: Furosemide 20 mg/2 ml IV VIAL IV SLOW PU ONE (16:35)
[2023-07-02] MEDS: Morphine 2 MG/ML SYRINGE IV PRN ×2 (17:16→21:15)
[2023-07-02] MEDS ORDERED: Iohexol 350 (CONTRAST) 500 ML MDV IV ONE (17:45)
[2023-07-02] MEDS: LORazepam 2 mg VIAL 1 ml IV PUSH PRN ×2 (17:48→23:00)
[2023-07-02] MEDS ORDERED: Zosyn per Pharmacy NOTE FOLLOW UP SCH (19:00)
[2023-07-02] MEDS: Cefepime 2 GM in Dextrose 2 GM/50 ML BAG IV SCH (19:54)
[2023-07-02] MEDS: metroNIDAZOLE IV 500 MG/100ML 500 MG/100 ML BAG IVPB SCH (20:43)
[2023-07-03] MEDS: metroNIDAZOLE IV 500 MG/100ML 500 MG/100 ML BAG IVPB SCH ×2 (04:20→11:10)
[2023-07-03 05:56] LABS: ABS Lymphocytes 1.1 10^3/uL (1.0-4.8); ABS Monocytes 1.3 10^3/uL (0.0-0.9); ABS Nucleated RBC 0.01 10^3/ul; Hemoglobin 9.8 g/dL (11.5-14.3); Lymphocyte % 7.2 %; Mean Corpuscular Hemoglobin 23.7 pg (27-33); Mean Corpuscular Hgb Conc 31.6 g/dL (31-36); Mean Corpuscular Volume 75.2 fL (80-97); Platelet Count 303 10^3/uL (150-450); Red Blood Count 4.13 10^6/uL (3.63-4.92); Red Cell Distribution Width 23.7 % (12-17); White Blood Count 15.5 10^3/uL (3.8-11.8)
[2023-07-03] MEDS: Morphine 2 MG/ML SYRINGE IV PRN ×5 (06:11→23:35)
[2023-07-03 06:14] LABS: Calcium 8.2 mg/dL (8.6-10.3); Creatinine, Serum 0.59 mg/dL (0.51-0.95); Potassium 3.8 mmol/L (3.5-5.0)
[2023-07-03] MEDS: Multivitamins/Minerals TAB PO SCH (08:51)
[2023-07-03] MEDS: Cefepime 2 GM in Dextrose 2 GM/50 ML BAG IV SCH (08:56)
[2023-07-03] MEDS: Nicotine GUM 4MG FRUIT FLAVOR PO PRN (15:32)
[2023-07-03] MEDS: Albuterol HFA INHALER 8 gm MDI INH PRN (19:22)
[2023-07-03] MEDS: LORazepam 2 mg VIAL 1 ml IV PUSH PRN (21:27)
[2023-07-03] MEDS: Nicotine PATCH 14 MG/24 HR PATCH TRANSDERM SCH (22:44)
[2023-07-03] MEDS ORDERED: Lactated Ringers 1000 ml BAG 500 ML IV SCH (23:00)
[2023-07-04] MEDS: LORazepam 2 mg VIAL 1 ml IV PUSH PRN (02:57)
[2023-07-04] MEDS: Morphine 2 MG/ML SYRINGE IV PRN ×4 (03:37→20:43)
[2023-07-04] MEDS: Multivitamins/Minerals TAB PO SCH (09:05)
[2023-07-04] MEDS ORDERED: Furosemide 20 mg/2 ml IV VIAL IV SLOW PU ONE (11:57)
[2023-07-04] MEDS ORDERED: Azithromycin 500 mg/250 ml NS 500 MG/250 ML BAG IVPB SCH (12:00)
[2023-07-04] MEDS: Nicotine GUM 4MG FRUIT FLAVOR PO PRN (13:29)
[2023-07-04] MEDS: Cefepime 2 GM in Dextrose 2 GM/50 ML BAG IV SCH ×2 (13:34→21:55)
[2023-07-04] MEDS: Doxycycline 100 MG in NS 0.9% 250 ML BAG IVPB SCH ×2 (14:02→20:44)
[2023-07-04 17:56] LABS: PCO2 Arterial 46 mmHg (35-45); PO2 Arterial 70 mmHg (80-100)
[2023-07-04] MEDS: Ondansetron 4 mg VIAL 2 MG/ML 2 ml VIAL IV PRN (20:54)
[2023-07-04] MEDS: Nicotine PATCH 14 MG/24 HR PATCH TRANSDERM SCH (22:19)
[2023-07-05] MEDS ORDERED: Lactated Ringers 1000 ml BAG 500 ML IV ONE (00:18)
[2023-07-05] MEDS: Morphine 2 MG/ML SYRINGE IV PRN ×4 (01:13→23:54)
[2023-07-05 01:37] LABS: Anion Gap 9 mmol/L (2-16); Blood Urea Nitrogen 7 mg/dL (6-24); CO2 Carbon Dioxide 24 mmol/L (22-32); Calcium 7.9 mg/dL (8.6-10.3); Chloride 103 mmol/L (101-111); Creatinine, Serum 0.61 mg/dL (0.51-0.95); Glucose 138 mg/dL (70-100); Sodium 136 mmol/L (135-145); eGFR CKD-EPI 115.1 (>60)
[2023-07-05] MEDS: Cefepime 2 GM in Dextrose 2 GM/50 ML BAG IV SCH ×3 (05:02→22:12)
[2023-07-05] MEDS ORDERED: Furosemide 20 mg/2 ml IV VIAL IV SLOW PU ONE (08:00)
[2023-07-05] MEDS: Multivitamins/Minerals TAB PO SCH ×2 (08:19→11:18)
[2023-07-05] MEDS ORDERED: Albuterol/Ipratropium NEB.SOL (2.5/0.5 MG) 3 ML NEB.SOLN INH PRN (08:46)
[2023-07-05] MEDS ORDERED: methylPREDNISolone SOD SUCC 125 mg 2 ML VIAL IV ONE (08:47)
[2023-07-05 09:01] LABS: PCO2 Arterial 40 mmHg (35-45)
[2023-07-05 09:06] LABS: PO2 Arterial < 38 mmHg (80-100)
[2023-07-05] MEDS ORDERED: Furosemide 40 mg/4 ml IV VIAL IV SLOW PU ONE (10:24)
[2023-07-05] MEDS: Doxycycline 100 MG in NS 0.9% 250 ML BAG IVPB SCH ×2 (12:25→12:26)
[2023-07-05] MEDS: Enoxaparin 40 MG/0.4 ML SYR SUBCUT SCH ×2 (19:43→20:01)
[2023-07-05] MEDS: Ondansetron 4 mg VIAL 2 MG/ML 2 ml VIAL IV PRN (19:43)
[2023-07-05] MEDS: Nicotine PATCH 14 MG/24 HR PATCH TRANSDERM SCH (22:14)
[2023-07-06] MEDS: Doxycycline 100 MG in NS 0.9% 250 ML BAG IVPB SCH ×3 (01:18→23:59)
[2023-07-06] MEDS: Cefepime 2 GM in Dextrose 2 GM/50 ML BAG IV SCH ×3 (05:05→21:34)
[2023-07-06] MEDS: Morphine 2 MG/ML SYRINGE IV PRN ×2 (05:06→22:52)
[2023-07-06 05:36] LABS: Hematocrit 33.5 % (35-45); Hemoglobin 10.3 g/dL (11.5-14.3); Mean Corpuscular Hgb Conc 30.9 g/dL (31-36); Mean Corpuscular Volume 77.6 fL (80-97); Mean Platelet Volume 8.4 fL (7.5-11.2); Platelet Count 347 10^3/uL (150-450); Red Blood Count 4.31 10^6/uL (3.63-4.92); White Blood Count 11.4 10^3/uL (3.8-11.8)
[2023-07-06 06:06] LABS: ABS Basophils 0.1 10^3/uL (0.0-0.1); ABS Eosinophils 0.1 10^3/uL (0.0-0.5); ABS Lymphocytes 1.4 10^3/uL (1.0-4.8); ABS Monocytes 0.9 10^3/uL (0.0-0.9); ABS Nucleated RBC 0.01 10^3/ul; Anisocytosis 3+; Eosinophil % 0.6 %; Lymphocyte % 11.9 %; Nucleated Red Blood Cells % 0.1 %/100WBC (0.0-0.8); Polychromasia 1+
[2023-07-06] MEDS ORDERED: Magnesium Hydroxide LIQ 30 ML UDC PO PRN (08:06)
[2023-07-06] MEDS ORDERED: Polyethylene Glycol 3350 17 GM PACKET PO PRN (08:06)
[2023-07-06] MEDS ORDERED: Senna TAB 8.6 mg TAB PO PRN (08:06)
[2023-07-06] MEDS ORDERED: Furosemide 40 mg/4 ml IV VIAL IV ONE ×2 (09:29→22:49)
[2023-07-06] MEDS: Ondansetron 4 mg VIAL 2 MG/ML 2 ml VIAL IV PRN ×2 (10:03→21:43)
[2023-07-06] MEDS: Magnesium Hydroxide LIQ 30 ML UDC PO SCH ×3 (10:13→21:39)
[2023-07-06] MEDS: Multivitamins/Minerals TAB PO SCH (10:31)
[2023-07-06] MEDS: Enoxaparin 40 MG/0.4 ML SYR SUBCUT SCH (21:33)
[2023-07-06] MEDS: Nicotine PATCH 14 MG/24 HR PATCH TRANSDERM SCH (22:16)
[2023-07-07] MEDS: Morphine 2 MG/ML SYRINGE IV PRN ×2 (03:02→14:13)
[2023-07-07 03:25] LABS: PCO2 Arterial 55 mmHg (35-45); PO2 Arterial 113 mmHg (80-100)
[2023-07-07 03:30] LABS: Hematocrit 34.5 % (35-45); Hemoglobin 10.8 g/dL (11.5-14.3); Mean Corpuscular Hgb Conc 31.4 g/dL (31-36); Mean Corpuscular Volume 76.6 fL (80-97); Mean Platelet Volume 8.3 fL (7.5-11.2); Platelet Count 438 10^3/uL (150-450); Red Blood Count 4.51 10^6/uL (3.63-4.92); Red Cell Distribution Width 25.8 % (12-17); White Blood Count 11.7 10^3/uL (3.8-11.8)
[2023-07-07 03:40] LABS: Calcium 8.1 mg/dL (8.6-10.3); Creatinine, Serum 0.52 mg/dL (0.51-0.95); Magnesium 1.9 mg/dL (1.9-2.7); Potassium 3.3 mmol/L (3.5-5.0); eGFR CKD-EPI 119.6 (>60)
[2023-07-07] MEDS ORDERED: KCL 10 MEQ/50 ML IVPREMIX 10 MEQ/50 ML BAG IV ONE (04:00)
[2023-07-07] MEDS ORDERED: Potassium Chlor 20 meq TAB.ER PO ONE (04:00)
[2023-07-07 04:04] LABS: ABS Basophils 0.1 10^3/uL (0.0-0.1); ABS Eosinophils 0.3 10^3/uL (0.0-0.5); ABS Monocytes 0.8 10^3/uL (0.0-0.9); ABS Neutrophils 8.4 10^3/uL (1.5-7.6); Eosinophil % 2.2 %; Lymphocyte % 17.3 %
[2023-07-07] MEDS: Cefepime 2 GM in Dextrose 2 GM/50 ML BAG IV SCH ×3 (04:35→21:29)
[2023-07-07] MEDS: Multivitamins/Minerals TAB PO SCH (08:30)
[2023-07-07] MEDS: Magnesium Hydroxide LIQ 30 ML UDC PO SCH ×2 (08:30→20:20)
[2023-07-07] MEDS ORDERED: Furosemide 40 mg/4 ml IV VIAL IV ONE ×2 (11:07→15:22)
[2023-07-07] MEDS: Doxycycline 100 MG in NS 0.9% 250 ML BAG IVPB SCH ×2 (12:25→23:48)
[2023-07-07] MEDS ORDERED: Potassium Chloride LIQUID 20 MEQ/15 ML LIQUID PO ONE (13:33)
[2023-07-07] MEDS: KCL 20 MEQ/100 ML IVPREMIX 20 MEQ/100 ML BAG IV SCH ×2 (15:39→20:19)
[2023-07-07] MEDS: Potassium Chloride LIQUID 20 MEQ/15 ML LIQUID PO ONE ×2 (18:36→22:53)
[2023-07-07] MEDS: Enoxaparin 40 MG/0.4 ML SYR SUBCUT SCH (20:19)
[2023-07-07] MEDS: Nicotine PATCH 14 MG/24 HR PATCH TRANSDERM SCH (22:08)
[2023-07-08] MEDS: Cefepime 2 GM in Dextrose 2 GM/50 ML BAG IV SCH ×2 (05:00→16:18)
[2023-07-08 05:44] LABS: Calcium 8.3 mg/dL (8.6-10.3); Creatinine, Serum 0.56 mg/dL (0.51-0.95); Phosphorus 1.9 mg/dL (2.5-5.0); Potassium 4.2 mmol/L (3.5-5.0); eGFR CKD-EPI 117.5 (>60)
[2023-07-08] MEDS ORDERED: Lidocaine 1% MPF 5 ML VIAL INJ ONE (09:20)
[2023-07-08] MEDS: Morphine 2 MG/ML SYRINGE IV PRN ×2 (10:19→15:28)
[2023-07-08] MEDS: Multivitamins/Minerals TAB PO SCH (10:28)
[2023-07-08] MEDS: Magnesium Hydroxide LIQ 30 ML UDC PO SCH ×2 (10:28→21:57)
[2023-07-08] MEDS ORDERED: Furosemide 40 mg/4 ml IV VIAL IV ONE (11:36)
[2023-07-08] MEDS: Doxycycline 100 MG in NS 0.9% 250 ML BAG IVPB SCH ×2 (11:48→23:22)
[2023-07-08] MEDS ORDERED: Lidocaine 4% CREAM (LMX) 5 GM TUBE TOPICAL ONE (12:13)
[2023-07-08] MEDS ORDERED: Bumetanide IV 0.25 MG/ML 4 ml VIAL (1 mg) IV SLOW PU ONE (16:50)
[2023-07-08] MEDS ORDERED: Potassium Chloride LIQUID 20 MEQ/15 ML LIQUID PO ONE (17:18)
[2023-07-08] MEDS: Enoxaparin 40 MG/0.4 ML SYR SUBCUT SCH (21:56)
[2023-07-08] MEDS: Nicotine PATCH 14 MG/24 HR PATCH TRANSDERM SCH (21:57)
[2023-07-09] MEDS: Magnesium Hydroxide LIQ 30 ML UDC PO SCH ×2 (11:01→21:33)
[2023-07-09] MEDS: Multivitamins/Minerals TAB PO SCH (11:01)
[2023-07-09] MEDS ORDERED: Furosemide 40 mg/4 ml IV VIAL IV ONE (11:16)
[2023-07-09] MEDS: Doxycycline 100 MG in NS 0.9% 250 ML BAG IVPB SCH (13:59)
[2023-07-09] MEDS: Enoxaparin 40 MG/0.4 ML SYR SUBCUT SCH (21:29)
[2023-07-09] MEDS: Nicotine PATCH 14 MG/24 HR PATCH TRANSDERM SCH (22:45)
[2023-07-10] MEDS: Multivitamins/Minerals TAB PO SCH (09:35)
[2023-07-10] MEDS: Magnesium Hydroxide LIQ 30 ML UDC PO SCH (09:36)
[2023-07-10] MEDS: methylPREDNISolone SOD SUCC 40 mg/ml 1 ml VIAL IV SCH (20:48)
[2023-07-10 20:55] LABS: Hematocrit 36.4 % (35-45); Hemoglobin 11.2 g/dL (11.5-14.3); Mean Corpuscular Hemoglobin 23.8 pg (27-33); Mean Corpuscular Hgb Conc 30.9 g/dL (31-36); Mean Corpuscular Volume 76.9 fL (80-97); Mean Platelet Volume 8.4 fL (7.5-11.2); Platelet Count 397 10^3/uL (150-450); Red Blood Count 4.73 10^6/uL (3.63-4.92); White Blood Count 12.3 10^3/uL (3.8-11.8)
[2023-07-10 21:11] LABS: Calcium 8.7 mg/dL (8.6-10.3); Creatinine, Serum 0.52 mg/dL (0.51-0.95); Magnesium 2.2 mg/dL (1.9-2.7); Potassium 3.3 mmol/L (3.5-5.0); eGFR CKD-EPI 119.6 (>60)
[2023-07-10] MEDS: Enoxaparin 40 MG/0.4 ML SYR SUBCUT SCH (22:34)
[2023-07-10 23:00] LABS: ABS Basophils 0.1 10^3/uL (0.0-0.1); ABS Eosinophils 0.4 10^3/uL (0.0-0.5); ABS Lymphocytes 3.3 10^3/uL (1.0-4.8); ABS Monocytes 0.9 10^3/uL (0.0-0.9); ABS Neutrophils 7.5 10^3/uL (1.5-7.6); ABS Nucleated RBC 0.02 10^3/ul; Eosinophil % 3.1 %; Lymphocyte % 27.4 %; Nucleated Red Blood Cells % 0.2 %/100WBC (0.0-0.8)
[2023-07-10 23:01] LABS: Anisocytosis 2+; Macrocytosis 1+; Microcytosis 1+
[2023-07-11] MEDS: Nicotine PATCH 14 MG/24 HR PATCH TRANSDERM SCH ×2 (00:59→21:59)
[2023-07-11 06:03] LABS: Calcium 8.6 mg/dL (8.6-10.3); Creatinine, Serum 0.41 mg/dL (0.51-0.95); Magnesium 2.2 mg/dL (1.9-2.7); Potassium 3.7 mmol/L (3.5-5.0); eGFR CKD-EPI 126.7 (>60)
[2023-07-11 06:51] LABS: ABS Lymphocytes 1.2 10^3/uL (1.0-4.8); ABS Monocytes 0.3 10^3/uL (0.0-0.9); Eosinophil % 0.1 %; Hematocrit 35.6 % (35-45); Hemoglobin 11.2 g/dL (11.5-14.3); Lymphocyte % 14.1 %; Mean Corpuscular Hemoglobin 24.1 pg (27-33); Mean Corpuscular Hgb Conc 31.3 g/dL (31-36); Mean Corpuscular Volume 76.9 fL (80-97); Mean Platelet Volume 8.7 fL (7.5-11.2); Platelet Count 342 10^3/uL (150-450); Red Blood Count 4.63 10^6/uL (3.63-4.92); Red Cell Distribution Width 24.7 % (12-17); White Blood Count 8.6 10^3/uL (3.8-11.8)
[2023-07-11] MEDS ORDERED: Potassium Chlor 20 meq TAB.ER PO ONE (08:02)
[2023-07-11] MEDS: methylPREDNISolone SOD SUCC 40 mg/ml 1 ml VIAL IV SCH (10:07)
[2023-07-11] MEDS: Multivitamins/Minerals TAB PO SCH (10:14)
[2023-07-11] MEDS: Enoxaparin 40 MG/0.4 ML SYR SUBCUT SCH (21:59)
[2023-07-12 06:41] LABS: Hematocrit 33.4 % (35-45); Hemoglobin 10.4 g/dL (11.5-14.3); Mean Corpuscular Hemoglobin 24.2 pg (27-33); Mean Corpuscular Hgb Conc 31.2 g/dL (31-36); Mean Corpuscular Volume 77.5 fL (80-97); Mean Platelet Volume 8.4 fL (7.5-11.2); Platelet Count 237 10^3/uL (150-450); Red Blood Count 4.31 10^6/uL (3.63-4.92); Red Cell Distribution Width 25.5 % (12-17)
[2023-07-12 06:56] LABS: Calcium 8.2 mg/dL (8.6-10.3); Creatinine, Serum 0.53 mg/dL (0.51-0.95); Phosphorus 3.2 mg/dL (2.5-5.0); Potassium 3.3 mmol/L (3.5-5.0); eGFR CKD-EPI 119.1 (>60)
[2023-07-12 07:38] LABS: ABS Basophils 0.1 10^3/uL (0.0-0.1); ABS Eosinophils 0.1 10^3/uL (0.0-0.5); ABS Lymphocytes 3.1 10^3/uL (1.0-4.8); ABS Neutrophils 8.7 10^3/uL (1.5-7.6); ABS Nucleated RBC 0.01 10^3/ul; Eosinophil % 0.8 %; Lymphocyte % 23.8 %; Nucleated Red Blood Cells % 0.1 %/100WBC (0.0-0.8)
[2023-07-12] MEDS: methylPREDNISolone SOD SUCC 40 mg/ml 1 ml VIAL IV SCH (08:31)
[2023-07-12] MEDS: Multivitamins/Minerals TAB PO SCH (08:38)
[2023-07-12] MEDS ORDERED: Potassium Chlor 20 meq TAB.ER PO ONE (09:05)
[2023-07-12] MEDS: Enoxaparin 40 MG/0.4 ML SYR SUBCUT SCH (21:13)
[2023-07-12] MEDS: Nicotine PATCH 14 MG/24 HR PATCH TRANSDERM SCH (23:45)
[2023-07-13 07:12] LABS: Hematocrit 33.5 % (35-45); Hemoglobin 10.4 g/dL (11.5-14.3); Mean Corpuscular Hemoglobin 24.2 pg (27-33); Mean Corpuscular Hgb Conc 30.9 g/dL (31-36); Mean Corpuscular Volume 78.2 fL (80-97); Mean Platelet Volume 8.8 fL (7.5-11.2); Platelet Count 226 10^3/uL (150-450); Red Blood Count 4.28 10^6/uL (3.63-4.92); Red Cell Distribution Width 25.2 % (12-17); White Blood Count 11.6 10^3/uL (3.8-11.8)
[2023-07-13 07:18] LABS: Calcium 8.4 mg/dL (8.6-10.3); Creatinine, Serum 0.58 mg/dL (0.51-0.95); Magnesium 2.1 mg/dL (1.9-2.7); Phosphorus 3.3 mg/dL (2.5-5.0); Potassium 3.8 mmol/L (3.5-5.0); eGFR CKD-EPI 116.5 (>60)
[2023-07-13 08:07] LABS: ABS Eosinophils 0.1 10^3/uL (0.0-0.5); ABS Lymphocytes 2.9 10^3/uL (1.0-4.8); ABS Monocytes 0.8 10^3/uL (0.0-0.9); ABS Neutrophils 7.8 10^3/uL (1.5-7.6); ABS Nucleated RBC 0.01 10^3/ul; Anisocytosis 2+; Eosinophil % 0.8 %; Nucleated Red Blood Cells % 0.1 %/100WBC (0.0-0.8); Polychromasia 1+
[2023-07-13] MEDS: methylPREDNISolone SOD SUCC 40 mg/ml 1 ml VIAL IV SCH (09:50)
[2023-07-13] MEDS: Multivitamins/Minerals TAB PO SCH (09:51)
[2023-07-13] MEDS: Enoxaparin 40 MG/0.4 ML SYR SUBCUT SCH (21:34)
[2023-07-14] MEDS: Nicotine PATCH 14 MG/24 HR PATCH TRANSDERM SCH (02:53)
[2023-07-14] MEDS: methylPREDNISolone SOD SUCC 40 mg/ml 1 ml VIAL IV SCH (07:58)
[2023-07-14] MEDS: Multivitamins/Minerals TAB PO SCH (07:58)
[2023-07-14] MEDS ORDERED: Influenza vaccine *QUAD* *2023-24* 0.5 ML SYRINGE IM ONE (09:00)
[2023-07-14] MEDS ORDERED: COVID VAC 23-24(12+)(Moderna) SYR 0.5 ML IM ONE (09:00)
[2023-07-14] MEDS ORDERED: Nicotine PATCH 14 MG/24 HR PATCH TRANSDERM SCH (09:00)
[2023-07-14 09:50] VITALS: BP 113/79
== END 2023-07-14 14:00 | disposition home or self-care (01) | DRG 282 ==
LOC: ED 15:06 → EDHOLD 15:06 → MEDTELE 06-30 00:17 → SUATTDRO 06-30 11:00 → ICU 07-05 10:20 → MEDTELE 07-10 19:25
PROVIDERS: ADMIT Hospitalist; ATTEND Internal Medicine

== ENCOUNTER 2023-07-23 21:39 | Observation (INO) ==
[2023-07-24] MEDS ORDERED: Acetaminophen IV 1 GM/100ML 1,000 MG/100 ML BAG IV ONE (00:27)
[2023-07-24] MEDS ORDERED: Morphine 4 MG/ML VIAL (1 ml) IV ONE (00:36)
[2023-07-24 02:00] LABS: INR 0.93 (0.83-1.13)
[2023-07-24 02:08] LABS: Albumin 3.6 g/dL (3.2-5.2); Albumin/Globulin Ratio 1.2 (1-3); Calcium 8.5 mg/dL (8.6-10.3); Creatinine, Serum 0.64 mg/dL (0.51-0.95); Potassium 4.6 mmol/L (3.5-5.0); Total Bilirubin 0.3 mg/dL (0.2-1.0); Total Protein 6.6 g/dL (6.4-8.9); eGFR CKD-EPI 113.8 (>60)
[2023-07-24 02:13] LABS: HCG Pregnancy 1.08 mIU/mL
[2023-07-24] MEDS ORDERED: Iohexol 350 (CONTRAST) 500 ML MDV IV ONE (02:17)
[2023-07-24 02:24] LABS: Hematocrit 35.7 % (35-45); Hemoglobin 11.2 g/dL (11.5-14.3); Mean Corpuscular Hemoglobin 24.7 pg (27-33); Mean Corpuscular Hgb Conc 31.2 g/dL (31-36); Mean Corpuscular Volume 78.9 fL (80-97); Mean Platelet Volume 7.7 fL (7.5-11.2); Platelet Count 341 10^3/uL (150-450); Red Blood Count 4.52 10^6/uL (3.63-4.92); Red Cell Distribution Width 25.3 % (12-17); White Blood Count 13.7 10^3/uL (3.8-11.8)
[2023-07-24 03:04] LABS: ABS Basophils 0.2 10^3/uL (0.0-0.1); ABS Lymphocytes 1.9 10^3/uL (1.0-4.8); ABS Monocytes 0.5 10^3/uL (0.0-0.9); ABS Neutrophils 11.2 10^3/uL (1.5-7.6); ABS Nucleated RBC 0.01 10^3/ul; Anisocytosis 2+; Hypochromasia 1+; Lymphocyte % 13.9 %; Nucleated Red Blood Cells % 0.1 %/100WBC (0.0-0.8)
[2023-07-24] MEDS ORDERED: Albuterol HFA INHALER 8 gm MDI INH PRN (03:47)
[2023-07-24] MEDS ORDERED: Ondansetron ODT 4 mg TAB 4 MG TAB PO PRN (04:00)
[2023-07-24 13:14] VITALS: BP 112/70
== END 2023-07-24 13:00 | disposition home or self-care (01) ==
LOC: ED 21:39 → EDHOLD 21:39 → SUATTDRO 07-24 03:30 → EDHOLD 07-24 12:00
PROVIDERS: ADMIT Internal Medicine; ATTEND Hospitalist

== ENCOUNTER 2023-12-10 06:57 | Inpatient (IN) ==
[2023-12-10] MEDS ORDERED: Norepinephrine IV 1 MG/ML 4 ML VIAL ONE (07:00)
[2023-12-10] MEDS ORDERED: EPINEPHrine SYR 0.1MG/ML 10 ml SYRINGE IV ONE (07:00)
[2023-12-10] MEDS ORDERED: TENECTEPLASE 50 MG VIAL KIT 5 MG/ML (reconstituted) IV ONE (07:00)
[2023-12-10] MEDS ORDERED: Calcium CHLORIDE 10% SYRINGE 1 GM/10 ML ONE (07:00)
[2023-12-10] MEDS ORDERED: Propofol 10 mg/ml 100 ML BTL 1,000 MG/100 ML BTL ONE (07:17)
[2023-12-10] MEDS: Norepinephrine 4 MG/250mL NS 4,000 MCG/250 ML BAG IV SCH ×2 (08:00→13:32)
[2023-12-10 08:24] LABS: Urine Appearance Clear; Urine Bilirubin Negative (Negative); Urine Blood 1+ (Negative); Urine Color Light-Yellow; Urine Glucose Negative (Negative); Urine Ketones Negative (Negative); Urine Nitrite Negative (Negative); Urine Protein 2+ (>=100 mg/dL) (Negative); Urine Urobilinogen Negative (Negative)
[2023-12-10 08:26] LABS: Hematocrit 33.3 % (35-45); Hemoglobin 9.2 g/dL (11.5-14.3); Mean Corpuscular Hgb Conc 27.8 g/dL (31-36); Mean Corpuscular Volume 93.5 fL (80-97); Mean Platelet Volume 8.2 fL (7.5-11.2); Platelet Count 360 10^3/uL (150-450); Red Blood Count 3.56 10^6/uL (3.63-4.92); Red Cell Distribution Width 28.6 % (12-17); White Blood Count 29.4 10^3/uL (3.8-11.8)
[2023-12-10] MEDS: Lactated Ringers 1000 ml BAG 1,000 ML IV SCH (08:29)
[2023-12-10 08:36] LABS: Urine Bacteria 1+ /HPF (Absent); Urine Red Blood Cell 3+(>10/hpf) /HPF (0-Trace); Urine White Blood Cell 2+(11-20/hpf) /HPF (0-Trace)
[2023-12-10] MEDS: fentaNYL 100 mcg/2 ml 50 MCG/ML VIAL IV SLOW PU ONE ×2 (08:45→09:03)
[2023-12-10 08:48] LABS: Albumin 2.1 g/dL (3.2-5.2); Albumin/Globulin Ratio 1.2 (1-3); Calcium 9.5 mg/dL (8.6-10.3); Creatinine, Serum 1.05 mg/dL (0.51-0.95); Globulin 1.8 g/dL (2-4); Potassium 4.1 mmol/L (3.5-5.0); Total Bilirubin 0.4 mg/dL (0.2-1.0); Total Protein 3.9 g/dL (6.4-8.9)
[2023-12-10] MEDS ORDERED: Vancomycin 1,000 MG in NS 0.9% 250 ml 250 ML IVPB SCH (09:00)
[2023-12-10 09:08] LABS: C Reactive Protein 154.25 mg/L (<8.01)
[2023-12-10] MEDS: Iodixanol (CONTRAST) 320 MG/ML 100 ML SDV IV ONE (09:12)
[2023-12-10 09:18] LABS: ABS Basophils 0.2 10^3/uL (0.0-0.1); ABS Eosinophils 0.2 10^3/uL (0.0-0.5); ABS Lymphocytes 10.2 10^3/uL (1.0-4.8); ABS Monocytes 1.5 10^3/uL (0.0-0.9); ABS Neutrophils 17.3 10^3/uL (1.5-7.6); ABS Nucleated RBC 0.08 10^3/ul; Anisocytosis 3+; Eosinophil % 0.8 %; Hypochromasia 1+; Lymphocyte % 34.7 %; Nucleated Red Blood Cells % 0.3 %/100WBC (0.0-0.8); Polychromasia 1+
[2023-12-10] MEDS: fentaNYL INFUSION 50 mcg/mL VL 2,500 MCG/50 ML VIAL IV SCH ×2 (09:25→15:19)
[2023-12-10] MEDS: Piperacillin/Tazobac 3.375 BAG 3.375 GM/100 ML BAG IV ONE (09:48)
[2023-12-10] MEDS: Vancomycin 1,000 MG - ED ONCE IVPB ONE (09:49)
[2023-12-10 10:44] LABS: High Sensitivity Troponin 1 Hr 82 pg/mL (<15)
[2023-12-10] MEDS: Propofol 10 mg/ml 100 ML BTL 1,000 MG/100 ML BTL IV SCH ×2 (11:45→15:21)
[2023-12-10] MEDS ORDERED: Azithromycin 500 mg/250 ml NS 500 MG/250 ML BAG IVPB SCH (12:00)
[2023-12-10] MEDS ORDERED: fentaNYL 100 mcg/2 ml 50 MCG/ML VIAL IV SLOW PU PRN (12:21)
[2023-12-10] MEDS: Midazolam 10 mg/10 ml VIAL 1 mg/ml 10 ml VIAL (10 mg) IV SLOW PU ONE ×2 (12:31)
[2023-12-10] MEDS: Midazolam 5 mg/5 ml VIAL 1 mg/ml 5 ml VIAL (5 mg) ONE (12:33)
[2023-12-10] MEDS: Doxycycline 100 MG in NS 0.9% 250 ML BAG IVPB SCH (12:33)
[2023-12-10] MEDS: Midazolam 5 mg/5 ml VIAL 1 mg/ml 5 ml VIAL (5 mg) IV SLOW PU PRN (13:00)
[2023-12-10] MEDS: Midazolam PREMIXBAG 1 MG/ML NS 100 ML IV SCH ×2 (13:13→15:16)
[2023-12-10] MEDS ORDERED: Norepinephrine 4 MG/250mL NS 4,000 MCG/250 ML BAG IV SCH (14:00)
[2023-12-10] MEDS: methylPREDNISolone SOD SUCC 40 mg/ml 1 ml VIAL IV SCH (15:06)
[2023-12-10] MEDS: Cefepime 1 GM in Dextrose 1 GM/50 ML BAG IV SCH (15:06)
[2023-12-10] MEDS: Albuterol/Ipratropium NEB.SOL (2.5/0.5 MG) 3 ML NEB.SOLN INH SCH (15:16)
[2023-12-10] MEDS ORDERED: cefTRIAXone 1 gm/50 mL D5W 1 GM/50 ML BAG IV SCH (15:30)
[2023-12-10 15:58] LABS: Hematocrit 35.7 % (35-45); Hemoglobin 10.6 g/dL (11.5-14.3)
[2023-12-10 16:31] LABS: ALT 67 U/L (7-52); AST 299 U/L (13-39); Albumin 2.6 g/dL (3.2-5.2); Albumin/Globulin Ratio 1.3 (1-3); Alkaline Phosphatase 248 U/L (35-149); Anion Gap 7 mmol/L (2-16); Blood Urea Nitrogen 17 mg/dL (6-24); CO2 Carbon Dioxide 25 mmol/L (22-32); Calcium 7.6 mg/dL (8.6-10.3); Chloride 112 mmol/L (101-111); Creatinine, Serum 0.98 mg/dL (0.51-0.95); Glucose 251 mg/dL (70-100); Potassium 4.4 mmol/L (3.5-5.0); Sodium 144 mmol/L (135-145); Total Protein 4.6 g/dL (6.4-8.9); eGFR CKD-EPI 73.9 (>60)
[2023-12-10 16:43] LABS: INR 1.8 (0.83-1.13)
[2023-12-10] MEDS: Chlorhexidine MOUTHWASH 0.12% 15 ML UDC TOPICAL SCH (17:07)
[2023-12-10 17:49] LABS: Urine Benzodiazepine Screen Presumptive Positive (None Detect); Urine Cannabinoids Screen None Detected (None Detect); Urine Opiates Screen None Detected (None Detect)
[2023-12-10] MEDS: Norepinephrine 4 MG/250mL D5W 4,000 MCG/250 ML BAG IV SCH (18:52)
[2023-12-10 19:14] LABS: Hematocrit 36.1 % (35-45); Hemoglobin 10.8 g/dL (11.5-14.3)
[2023-12-10] MEDS: Rocuronium 50 mg VIAL 10 mg/ml 5 ml VIAL (50 mg) IV ONE (21:01)
[2023-12-10] MEDS: Rocuronium 50 mg VIAL 10 mg/ml 5 ml VIAL (50 mg) ONE (21:04)
[2023-12-10] MEDS: Pantoprazole VIAL 40 MG VIAL IV SCH (21:23)
[2023-12-10] MEDS ORDERED: Sulfur Hexaflouride MICROSPHR 25 MG VIAL IV ONE (22:17)
[2023-12-11] MEDS ORDERED: Dextrose 50% Syringe 50 ml 25 GM/50 ML SYRINGE IV PUSH PRN (01:15)
[2023-12-11 01:54] LABS: Hematocrit 35.5 % (35-45); Hemoglobin 10.7 g/dL (11.5-14.3)
[2023-12-11 06:12] LABS: Albumin 2.7 g/dL (3.2-5.2); Albumin/Globulin Ratio 1.2 (1-3); Calcium 8.1 mg/dL (8.6-10.3); Creatinine, Serum 0.95 mg/dL (0.51-0.95); Globulin 2.3 g/dL (2-4); Phosphorus 4.1 mg/dL (2.5-5.0); Total Bilirubin 0.8 mg/dL (0.2-1.0); eGFR CKD-EPI 76.7 (>60)
[2023-12-11 07:13] LABS: Hematocrit 35.4 % (35-45); Hemoglobin 10.7 g/dL (11.5-14.3); Mean Corpuscular Hemoglobin 25.8 pg (27-33); Mean Corpuscular Hgb Conc 30.3 g/dL (31-36); Mean Corpuscular Volume 85.2 fL (80-97); Mean Platelet Volume 7.8 fL (7.5-11.2); Platelet Count 374 10^3/uL (150-450); Red Blood Count 4.16 10^6/uL (3.63-4.92); Red Cell Distribution Width 27.4 % (12-17); White Blood Count 25.8 10^3/uL (3.8-11.8)
[2023-12-11 07:21] LABS: ABS Lymphocytes 1.1 10^3/uL (1.0-4.8); ABS Monocytes 1.1 10^3/uL (0.0-0.9); ABS Neutrophils 23.6 10^3/uL (1.5-7.6); ABS Nucleated RBC 0.02 10^3/ul; Anisocytosis 3+; Hypochromasia 1+; Lymphocyte % 4.2 %; Nucleated Red Blood Cells % 0.1 %/100WBC (0.0-0.8); Polychromasia 1+
[2023-12-11] MEDS: Nicotine PATCH 21 MG/24 HR PATCH TRANSDERM SCH (09:29)
[2023-12-11 09:41] LABS: Calcium 8.4 mg/dL (8.6-10.3); Creatinine, Serum 1.02 mg/dL (0.51-0.95); Potassium 4.4 mmol/L (3.5-5.0); eGFR CKD-EPI 70.4 (>60)
[2023-12-11 13:15] LABS: Hematocrit 35.8 % (35-45)
[2023-12-11 14:05] LABS: Calcium 8.5 mg/dL (8.6-10.3); Creatinine, Serum 0.98 mg/dL (0.51-0.95); Potassium 4.3 mmol/L (3.5-5.0); eGFR CKD-EPI 73.9 (>60)
[2023-12-11] MEDS ORDERED: D5W 500 ml BAG 500 ML IV SCH (16:00)
[2023-12-11 17:25] VITALS: BP 139/109
[2023-12-11] MEDS ORDERED: Chlorhexidine MOUTHWASH 0.12% 15 ML UDC TOPICAL SCH (18:00)
[2023-12-11] MEDS ORDERED: Heparin 5000 UNITS/ML 1 mL VIAL ONE (20:18)
[2023-12-11] MEDS ORDERED: Enoxaparin 40 MG/0.4 ML SYR SUBCUT SCH (21:00)
[2023-12-11] MEDS ORDERED: Famotidine IV 10 MG/ML 2 ml VIAL (20 mg) IV SLOW PU SCH (21:00)
== END 2023-12-11 19:38 | DRG 196 ==
LOC: ED 06:57 → EDHOLD 11:06 → ICU 11:26 → UNDODISIN 12-11 16:27
PROVIDERS: ADMIT Surgery Surgical Critical Care; ATTEND Student in an Organized Health Care Education/Training Program